=== PATIENT | male | born 1965 | race Caucasian/White ===

== ENCOUNTER 2018-04-11 11:48 | Outpatient (REF) | payer MEDICARE, MEDICAID, SELFPAY ==
[2018-04-11 12:09] LABS: Bilirubin Negative (Negative); Blood Trace-intact (Negative); Clarity Sl Cloudy; Glucose Negative (Negative); Ketones Negative (Negative); Leukocyte Esterase Small (Negative); Nitrite Positive (Negative); Urobilinogen 0.2 EU/dL (Up TO 0.2)
[2018-04-11 12:20] LABS: Bacteria Many HPF (Negative); C & S Indicated? Yes; WBC >50 HPF (0-5)
== END 2018-04-11 12:08 ==
LOC: NCHCN 11:48
PROVIDERS: PCP Internal Medicine; Visit Provider Internal Medicine
DX: N39.0 Urinary tract infection, site not specified (principal); R32 Unspecified urinary incontinence
CPT/HCPCS: 87077; 81003; 81015; 87086; 87186

== ENCOUNTER 2018-04-25 08:03 | Outpatient (REF) | payer MEDICARE, MEDICAID, SELFPAY ==
[2018-04-25 08:20] LABS: Bilirubin Negative (Negative); Blood Moderate (Negative); Clarity Cloudy; Glucose Negative (Negative); Ketones Negative (Negative); Leukocyte Esterase Small (Negative); Nitrite Positive (Negative); Urobilinogen 0.2 EU/dL (Up TO 0.2)
[2018-04-25 08:29] LABS: Bacteria Packed HPF (Negative); WBC >50 HPF (0-5)
[2018-04-25 08:30] LABS: C & S Indicated? Yes
== END 2018-04-25 08:23 ==
LOC: NCHCN 08:03
PROVIDERS: PCP Internal Medicine; Visit Provider Internal Medicine
DX: N39.0 Urinary tract infection, site not specified (principal); R32 Unspecified urinary incontinence
CPT/HCPCS: 87077; 81003; 81015; 87086; 87186

== ENCOUNTER 2018-05-29 13:08 | Outpatient (REF) | payer MEDICARE, MEDICAID, SELFPAY ==
[2018-05-29 14:09] LABS: Bilirubin Negative (Negative); Blood Large (Negative); Clarity Cloudy; Glucose Negative (Negative); Ketones Trace mg/dL (Negative); Leukocyte Esterase Moderate (Negative); Nitrite Positive (Negative); Specific Gravity 1.025 (1.005-1.025); Urobilinogen 0.2 EU/dL (Up TO 0.2); pH 5.5 (5-8)
[2018-05-29 14:39] LABS: C & S Indicated? Yes
== END 2018-05-29 13:28 ==
LOC: NCHCN 13:08
PROVIDERS: PCP Internal Medicine; Visit Provider Internal Medicine
DX: N39.0 Urinary tract infection, site not specified (principal); R32 Unspecified urinary incontinence
CPT/HCPCS: 87077; 81003; 81015; 87086; 87186

== ENCOUNTER 2018-06-19 15:16 | Outpatient (REF) | payer MEDICARE, MEDICAID, SELFPAY ==
[2018-06-20 18:02] LABS: Clarity Cloudy; Glucose Negative (Negative); Ketones Negative (Negative); Leukocyte Esterase Moderate (Negative); Nitrite Negative (Negative); Urobilinogen 0.2 EU/dL (Up TO 0.2); pH 6.5 (5-8)
[2018-06-20 18:03] LABS: Bilirubin Negative (Negative); Blood Small (Negative); Epithelial Cells Few HPF (Negative); Other Cells Negative (Negative); WBC >50 HPF (0-5)
[2018-06-20 18:04] LABS: Bacteria Many HPF (Negative); C & S Indicated? Yes; Casts Negative LPF (Negative); Crystals Negative HPF (Negative); Mucus Negative (Negative)
== END 2018-06-19 15:36 ==
LOC: NCHCN 15:16
PROVIDERS: PCP Internal Medicine; Visit Provider Internal Medicine
DX: N39.0 Urinary tract infection, site not specified (principal); R32 Unspecified urinary incontinence
CPT/HCPCS: 87077; 81003; 81015; 87086; 87186

== ENCOUNTER 2018-07-08 10:27 | Outpatient (REF) | payer MEDICARE, MEDICAID, SELFPAY ==
[2018-07-08 14:49] LABS: Bilirubin Negative (Negative); Blood Trace-intact (Negative); Clarity Sl Cloudy; Glucose Negative (Negative); Ketones Negative (Negative); Leukocyte Esterase Small (Negative); Nitrite Positive (Negative); Urobilinogen 0.2 EU/dL (Up TO 0.2); pH 6.5 (5-8)
[2018-07-08 15:00] LABS: C & S Indicated? Yes; WBC >50 HPF (0-5)
== END 2018-07-08 10:47 ==
LOC: NCHCN 10:27
PROVIDERS: PCP Internal Medicine; Visit Provider Internal Medicine
DX: N39.0 Urinary tract infection, site not specified (principal); R32 Unspecified urinary incontinence
CPT/HCPCS: 87077; 81003; 81015; 87086; 87186

== ENCOUNTER 2018-07-21 16:06 | Outpatient (REF) | payer MEDICARE, MEDICAID, SELFPAY ==
[2018-07-21 17:10] LABS: Bilirubin Negative (Negative); Blood Moderate (Negative); Clarity Turbid; Glucose Negative (Negative); Ketones Negative (Negative); Leukocyte Esterase Moderate (Negative); Nitrite Positive (Negative); Specific Gravity 1.025 (1.005-1.025); Urobilinogen 0.2 EU/dL (Up TO 0.2); pH 6.5 (5-8)
[2018-07-21 17:51] LABS: C & S Indicated? Yes; WBC >50 HPF (0-5)
[2018-07-21 17:52] LABS: Bacteria Packed HPF (Negative)
== END 2018-07-21 16:26 ==
LOC: NCHCN 16:06
PROVIDERS: PCP Internal Medicine; Visit Provider Internal Medicine
DX: N39.0 Urinary tract infection, site not specified (principal); R32 Unspecified urinary incontinence
CPT/HCPCS: 87077; 81003; 81015; 87086; 87186

== ENCOUNTER 2018-09-14 08:22 | Outpatient (REF) | payer MEDICARE, MEDICAID, SELFPAY ==
[2018-09-14 12:26] LABS: Bilirubin Negative (Negative); Blood Negative (Negative); Clarity Sl Cloudy; Glucose Negative (Negative); Ketones Negative (Negative); Leukocyte Esterase Small (Negative); Nitrite Positive (Negative); Urobilinogen 0.2 EU/dL (Up TO 0.2); pH 5.5 (5-8)
[2018-09-14 12:43] LABS: Epithelial Cells Negative HPF (Negative); RBC Negative (0-2); WBC >50 HPF (0-5)
[2018-09-14 12:44] LABS: Bacteria Moderate HPF (Negative); C & S Indicated? Yes; Casts Negative LPF (Negative); Crystals Negative HPF (Negative); Mucus Negative (Negative)
== END 2018-09-14 08:42 ==
LOC: LBN 08:22
PROVIDERS: PCP Internal Medicine; Visit Provider Internal Medicine
DX: N39.0 Urinary tract infection, site not specified (principal); R32 Unspecified urinary incontinence
CPT/HCPCS: 87077; 81003; 81015; 87086; 87186

== ENCOUNTER 2018-10-16 14:54 | Outpatient (REF) | payer MEDICARE, MEDICAID, SELFPAY ==
[2018-10-16 15:26] LABS: Bilirubin Negative (Negative); Blood Moderate (Negative); Clarity Cloudy; Glucose Negative (Negative); Ketones 15 mg/dL (Negative); Leukocyte Esterase Small (Negative); Nitrite Negative (Negative); Specific Gravity >= 1.030 (1.005-1.025); Urobilinogen 0.2 EU/dL (Up TO 0.2)
[2018-10-16 21:29] LABS: Bacteria Many HPF (Negative); C & S Indicated? Yes; Casts Negative LPF (Negative); Crystals Negative HPF (Negative); Epithelial Cells Negative HPF (Negative); Mucus Negative (Negative); Other Cells Negative (Negative); RBC >50 (0-2); WBC >50 HPF (0-5)
== END 2018-10-16 15:14 ==
LOC: NCHCN 14:54
PROVIDERS: PCP Internal Medicine; Visit Provider Internal Medicine
DX: N39.0 Urinary tract infection, site not specified (principal); R32 Unspecified urinary incontinence
CPT/HCPCS: 87077; 81003; 81015; 87086; 87186

== ENCOUNTER 2018-10-29 15:50 | Outpatient (REF) | payer MEDICARE, MEDICAID, SELFPAY ==
[2018-10-29 16:07] LABS: Bilirubin Negative (Negative); Blood Negative (Negative); Clarity Cloudy; Glucose Negative (Negative); Ketones Negative (Negative); Leukocyte Esterase Negative (Negative); Nitrite Negative (Negative); Specific Gravity 1.015 (1.005-1.025); Urobilinogen 0.2 EU/dL (Up TO 0.2); pH 8.5 (5-8)
== END 2018-10-29 16:10 ==
LOC: LBN 15:50
PROVIDERS: PCP Internal Medicine; Visit Provider Internal Medicine
DX: N39.0 Urinary tract infection, site not specified (principal); R32 Unspecified urinary incontinence
CPT/HCPCS: 81003

== ENCOUNTER 2018-11-15 09:01 | Outpatient (REF) | payer MEDICARE, MEDICAID, SELFPAY ==
[2018-11-15 10:20] LABS: Bilirubin Negative (Negative); Blood Moderate (Negative); Clarity Cloudy; Glucose Negative (Negative); Ketones Negative (Negative); Leukocyte Esterase Moderate (Negative); Nitrite Negative (Negative); Specific Gravity 1.025 (1.005-1.025); Urobilinogen 0.2 EU/dL (Up TO 0.2); pH 7.5 (5-8)
[2018-11-15 10:37] LABS: C & S Indicated? Yes; WBC >50 HPF (0-5)
== END 2018-11-15 09:21 ==
LOC: NCHCN 09:01
PROVIDERS: PCP Internal Medicine; Visit Provider Internal Medicine
DX: N39.0 Urinary tract infection, site not specified (principal); R32 Unspecified urinary incontinence
CPT/HCPCS: 87077; 81003; 81015; 87086; 87186

== ENCOUNTER 2018-12-12 00:58 | Outpatient (CLI) | payer MEDICARE, MEDICAID, SELFPAY ==
--- NOTE | 2018-12-12 10:57 | DI.US_ITS ---
SYMPTOMS/DIAGNOSIS: RECURRENT URINARY TRACT INFECTION, N39.0, H/O NEUROGENIC BLADDER WITH STRAIGHT CATHETERIZATION BY FAMILY MEMBERS RENAL ULTRASOUND: Routine examination was performed. The right kidney measures 9 cm in length. There does appear to be mild renal cortical atrophy. No solid renal mass is present. There is mild dilatation of the right renal collecting system; this resolves following catheterization. The left kidney measures 10.6 cm long. There does appear to be mild renal cortical atrophy. There is moderate dilatation of the collecting system, which persists following catheterization. The precatheterization bladder volume is 573 cc. Both ureteral jets were visualized. There is debris seen within the urinary bladder. Following catheterization, bladder volume is 6 cc. IMPRESSION: 1. Persistent dilatation of the left renal collecting system following catheterization. This may represent mild hydro versus an extrarenal pelvis. 2. Moderate amount of debris seen within the urinary bladder. Infection cannot be excluded.
== END 2018-12-12 01:18 ==
PROVIDERS: PCP Internal Medicine; Visit Provider Internal Medicine
DX: N39.0 Urinary tract infection, site not specified (principal); N28.89 Other specified disorders of kidney and ureter; N31.9 Neuromuscular dysfunction of bladder, unspecified
CPT/HCPCS: 76770

== ENCOUNTER 2018-12-13 10:35 | Outpatient (REF) | payer MEDICARE, MEDICAID, SELFPAY ==
[2018-12-13 10:44] LABS: Bilirubin Negative (Negative); Blood Negative (Negative); Clarity Sl Cloudy; Glucose Negative (Negative); Ketones Negative (Negative); Leukocyte Esterase Trace (Negative); Nitrite Negative (Negative); Urobilinogen 0.2 EU/dL (Up TO 0.2); pH 5.5 (5-8)
[2018-12-13 11:00] LABS: Bacteria Rare HPF (Negative); C & S Indicated? Yes; Casts Negative LPF (Negative); Crystals Negative HPF (Negative); Epithelial Cells Negative HPF (Negative); Mucus Negative (Negative); RBC Negative (0-2); WBC >50 HPF (0-5)
== END 2018-12-13 10:55 ==
LOC: NCHCN 10:35
PROVIDERS: PCP Internal Medicine; Visit Provider Internal Medicine
DX: N39.0 Urinary tract infection, site not specified (principal); R32 Unspecified urinary incontinence
CPT/HCPCS: 81003; 81015; 87086

== ENCOUNTER 2018-12-31 10:22 | Outpatient (REF) | payer MEDICARE, MEDICAID, SELFPAY ==
[2018-12-31 14:02] LABS: Bilirubin Negative (Negative); Blood Trace-intact (Negative); Clarity Clear; Glucose Negative (Negative); Ketones Negative (Negative); Leukocyte Esterase Large (Negative); Nitrite Negative (Negative); Specific Gravity 1.025 (1.005-1.025); Urobilinogen 0.2 EU/dL (Up TO 0.2)
[2018-12-31 14:19] LABS: C & S Indicated? Yes; WBC >50 HPF (0-5)
== END 2018-12-31 10:42 ==
LOC: NCHCN 10:22
PROVIDERS: PCP Internal Medicine; Visit Provider Internal Medicine
DX: N39.0 Urinary tract infection, site not specified (principal); R32 Unspecified urinary incontinence
CPT/HCPCS: 87077; 81003; 81015; 87086; 87186

== ENCOUNTER 2019-03-16 12:50 | Outpatient (REF) | payer MEDICARE, MEDICAID, SELFPAY ==
[2019-03-16 14:34] LABS: Bilirubin Negative (Negative); Blood Negative (Negative); Clarity Sl Cloudy (Clear); Glucose Negative (Negative); Ketones Negative (Negative); Leukocyte Esterase Small (Negative); Nitrite Negative (Negative); Specific Gravity 1.015 (1.005-1.025); Urobilinogen 0.2 EU/dL (Up TO 0.2)
[2019-03-16 15:02] LABS: C & S Indicated? Yes; WBC >50 HPF (0-5)
== END 2019-03-16 13:10 ==
LOC: NCHCN 12:50
PROVIDERS: PCP Internal Medicine; Visit Provider Internal Medicine
DX: N39.0 Urinary tract infection, site not specified (principal); R32 Unspecified urinary incontinence
CPT/HCPCS: 87077; 81003; 81015; 87086; 87186

== ENCOUNTER 2019-04-03 09:28 | Outpatient (REF) | payer MEDICARE, MEDICAID, SELFPAY ==
[2019-04-03 09:47] LABS: Bilirubin Negative (Negative); Blood Moderate (Negative); Clarity Cloudy (Clear); Glucose Negative (Negative); Ketones Negative (Negative); Leukocyte Esterase Large (Negative); Nitrite Positive (Negative); Urobilinogen 0.2 EU/dL (Up TO 0.2); pH 5.5 (5-8)
[2019-04-03 09:56] LABS: WBC >50 HPF (0-5)
[2019-04-03 09:57] LABS: C & S Indicated? Yes
== END 2019-04-03 09:48 ==
LOC: NCHCN 09:28
PROVIDERS: PCP Internal Medicine; Visit Provider Internal Medicine
DX: N39.0 Urinary tract infection, site not specified (principal); R32 Unspecified urinary incontinence
CPT/HCPCS: 87077; 81003; 81015; 87086; 87186

== ENCOUNTER 2019-04-23 18:19 | Outpatient (REF) | payer MEDICARE, MEDICAID, SELFPAY ==
[2019-04-23 18:56] LABS: Bilirubin Negative (Negative); Blood Negative (Negative); Clarity Sl Cloudy (Clear); Glucose Negative (Negative); Ketones Negative (Negative); Leukocyte Esterase Trace (Negative); Nitrite Negative (Negative); Urobilinogen 0.2 EU/dL (Up TO 0.2)
[2019-04-23 19:11] LABS: Bacteria Many HPF (Negative); Crystals Negative HPF (Negative); Epithelial Cells Negative HPF (Negative); Mucus Negative (Negative); RBC Negative (0-2); WBC >50 HPF (0-5)
[2019-04-23 19:12] LABS: C & S Indicated? Yes; Casts Negative LPF (Negative)
== END 2019-04-23 18:39 ==
LOC: NCHCN 18:19
PROVIDERS: PCP Internal Medicine; Visit Provider Internal Medicine
DX: N39.0 Urinary tract infection, site not specified (principal); R32 Unspecified urinary incontinence
CPT/HCPCS: 87077; 81003; 81015; 87086; 87186

== ENCOUNTER 2019-04-25 23:54 | Inpatient (IN) | payer MEDICARE, MEDICAID, SELFPAY ==
[2019-04-25 23:48] VITALS: O2SAT 91
[2019-04-25 23:49] VITALS: BP 111/68; PULSE 102; O2SAT 91
[2019-04-25 23:50] VITALS: O2SAT 92
[2019-04-25 23:54] VITALS: BP 111/68; PULSE 111; RESP 18; TEMP 36.5; O2SAT 91
[2019-04-26] VITALS (18 sets, daily range): BP systolic 101–126; BP diastolic 66–77; PULSE 70–109; RESP 13–23; TEMP 36.5–38.6; O2SAT 97–99
--- NOTE | 2019-04-26 00:09 | ED.GENADUL_ITS ---
Discharge Plan Disposition Patient Disposition: [facility] INPATIENT Condition: Poor Discharge Details Chief Complaint: Urinary Clinical Impression: Acute UTI, Sepsis Primary Care Provider: Dimas Lau ED Provider: Rupesh Oviedo Home Meds and New Rx's Prescriptions: No Action polyethylene glycol 3350 [GlycoLax] 527 GM powder 17 g PO DAILY RF: 0 ciprofloxacin HCl 250 mg Tablet 250 mg PO BID RF: 0 bisacodyl [Dulcolax (bisacodyl)] 10 mg Suppository 10 mg MO DAILY RF: 0 lorazepam 1 mg Tablet 1 mg PO TID PRNRF: 0 cholecalciferol (vitamin D3) [Vitamin D3] 1,000 unit Capsule 1 unit PO DAILY RF: 0 Medical Decision Making I reviewed the patient's culture report. He is growing Serratia which is sensitive to Cipro. It was resistant to cephalexin. He is not febrile here but had rigors at home and is tachycardic. Mother reports decreased fluid intake. She did straight cath him prior to coming in. He only had [address] IV and start fluids. Laboratory studies sent. Will obtain chest x-ray because of the low O2 sats but his lungs sound clear and he does not appear to be in any distress currently. Suspect UTI with sepsis. Once we obtain blood cultures I will also dose him with ceftriaxone. Patient's laboratory studies significant for lactic acid 2.5, white count of 12.1, magnesium low at 1.5. Troponin is negative. Kidney function normal. Did not repeat urine as his culture from 2 days ago is growing Serratia. Will try to get blood cultures. Chest x-ray being read by radiology as possible left lower lobe infiltrate. Given the initial low saturations probably reasonable to cover for pneumonia. I think given the sensitivities of the Serratia using ceftriaxone and Levaquin for now would be appropriate. We will continue fluids. I think he is good for the floor as his heart rate is come down below 100 with a liter of LR. Blood pressure has been stable here. Will discuss with hospitalist. Spoke with Dr. Ceron. He agrees with plan. Would like a second liter of LR given prior to admission upstairs. We will also at least get the ceftriaxone on board once blood cultures are obtained prior to going upstairs. Medical Records Medical records reviewed: Yes I reviewed the patient's medical records. Medical records narrative: Obtained med list and problem list from PCP. Lab Data Lab results reviewed: Yes I reviewed the patient's lab results. ECG Data Attestation: I personally reviewed and interpreted this ECG (s) as follows: Prior ECG tracings: not available for review Interpretation: Sinus tachycardia at 101. Normal axis. Normal intervals. Normal ST segments. HPI General Mode of arrival: EMS . Date/Time Provider Initiated Documentation: 04/26/19 00:00 . Limitations to Documentation: other (non verbal) . Information obtained by: family . HPI Narrative: Patient presents to ED by ambulance with high fever, chills, shortness of breath. Patient is nonverbal and unable to provide history. Mother is his primary motor vehicle lecturer. She reports that he gets frequent UTIs. He began running a fever 2 days ago. Urine sample was brought in to primary care. Patient was started on cephalexin. He has continued to have low-grade fevers since. Cultures apparently came back and he was switched to Cipro of which he took his first dose tonight. He developed high fever with shaking chills and shortness of breath later this evening. EMS was called and patient was transported here for evaluation. They were unable to obtain IV access. He arrives here awake and alert and cooperative. Related Data Home Medications Medication Instructions Recorded Confirmed polyethylene glycol 3350 [Glycolax] 17 g PO DAILY 08/25/15 04/26/19 bisacodyl [Dulcolax (bisacodyl)] 10 mg MO DAILY 04/26/19 04/26/19 cholecalciferol (vitamin D3) 1 unit PO DAILY 04/26/19 04/26/19 [Vitamin D3] ciprofloxacin HCl 250 mg PO BID 04/26/19 04/26/19 lorazepam 1 mg PO TID PRN 04/26/19 04/26/19 Allergies Allergy/AdvReac Type Severity Reaction Status Date / Time carbamazepine [From Tegretol] Allergy Unknown Unverified 04/26/19 00:01 gabapentin [From Neurontin] Allergy Unknown Unverified 04/26/19 00:01 risperidone [From Risperdal] Allergy Unknown Unverified 04/26/19 00:01 Sulfa (Sulfonamide Allergy Unknown Unverified 04/26/19 00:01 Antibiotics) General Stated Complaint: Urinary SCHUYLER: 3 Review of Systems Review of Systems ROS Unobtainable: Unobtainable due to (unable to obtain - patient non verbal) [facility] Medical History Meningioma (Acute) Neurofibromatosis 2 (Acute) Urinary retention (Acute) Surgical History S/P craniotomy (Acute) 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 Tachycardic but normotensive. Saturations in the mid to high 90s on 2 L nasal cannula. Const: WDWN male in NAD. HEENT: NC/AT. Eyes: Normal conjunctiva and sclera. Neck: Supple. Trachea midline. Lungs: Normal respiratory effort. Lungs are clear anteriorly and laterally. Cor: RRR tachy without murmur/gallop. Good radial pulses. GI: Soft. NT/ND. No guarding or rebound. Neuro: Awake and alert and baseline per mother. Ext: No C/C/E. Atrophy present. Skin: Warm and dry without rash. Course Vital Signs Vital signs: Vital Signs Temperature 97.7 F 04/25/19 23:54 Pulse 111 H 04/25/19 23:54 Respiratory Rate 18 04/25/19 23:54 Blood Pressure 111/68 04/25/19 23:54 Pulse Oximetry 91 L 04/25/19 23:54 Temperature 97.7 F 04/25/19 23:54 Temperature Source Skin 04/25/19 23:54 Pulse 111 H 04/25/19 23:54 Respiratory Rate 18 04/25/19 23:54 Respiratory Effort 04/26/19 00:02 Blood Pressure 111/68 04/25/19 23:54 Blood Pressure Position Sitting 04/25/19 23:54 Pulse Oximetry 91 L 04/25/19 23:54 Oxygen Delivery Method Room Air 04/25/19 23:54 Oxygen Flow Rate 0 04/25/19 23:54 Lab/Test Results Lab/Test Results: 04/26/19 00:04 Blood Blood Culture - Pending 04/26/19 00:04 Blood Blood Culture - Pending Procedures EJ/Peripheral Line Arm R: Skin Cleansed in Sterile Fashion: Yes Size (gauge): 18 IV Secured and Dressing Applied: Yes Patient Tolerated Procedure: well Additional Comments: EMT and nursing unable to obtain access. 18-gauge IV catheter placed by me under ultrasound guidance in the right forearm.
[2019-04-26 00:51] LABS: Abs Immature Grans 0.04 k/cumm (0.0-0.09); Absolute Basophil Count 0.02 k/cumm (0.0-0.2); Absolute Eosinophil Count 0.02 k/cumm (0.0-0.7); Absolute Lymphocyte Count 0.16 k/cumm (1.2-3.4); Absolute Monocyte Count 0.25 k/cumm (0.11-0.7); Absolute Neutrophil Count 11.61 k/cumm (1.2-6.7); Basophils % 0.2; Eosinophils % 0.2; HCT 45.9 % (40.0-50.0); HGB 14.7 g/dL (13.5-17.5); Immature Grans % 0.3; Lactate 2.5 mmol/L (0.6-1.4); Lymphocytes % 1.3; Mean Corpuscular Hemoglobin 28.1 pg (27.0-33.0); Mean Corpuscular Volume 87.6 fL (80-95); Monocytes % 2.1; Neutrophils % 95.9; Platelet Count 123 x1000/uL (130-400); RBC 5.24 m/cumm (4.50-6.00); RBC Distribution Width 14.3 % (11.8-14.1); White Blood Cell Count 12.11 k/cumm (4.4-10.8)
[2019-04-26] MEDS: Lactated Ringers 1,000 ML 1000 ML IV ×2 (00:54→02:06)
--- NOTE | 2019-04-26 01:03 | DI.RAD_ITS ---
EXAM: XR PORTABLE CHEST AP INDICATION: fever, SOB. COMPARISON: No exams were available for comparison TECHNIQUE: 2D digital imaging was performed. FINDINGS: Suboptimal inflation of the lungs is noted. There is an apparent small region of infiltration involv ing the left lower lobe. There is no evidence of a pneumothorax. The heart is within normal limits i n size. IMPRESSION: Small small area of infiltration involving the left lower lobe.
[2019-04-26 01:08] LABS: ALT 27 U/L (16-63); AST 15 U/L (15-37); Albumin 2.5 g/dL (3.4-5.0); Alkaline Phosphatase 180 U/L (46-116); Anion Gap 11.3 mmol/L (3-11); BUN 15 mg/dL (7-18); Bilirubin, Total 0.8 mg/dL (0.2-1.0); CO2 26.7 mmol/L (21.0-32.0); CREATININE 1.26 mg/dL (0.70-1.30); Calcium 8.3 mg/dL (8.5-10.1); Chloride 105 mmol/L (98-107); Estimated GFR 59.64 (mL/min/1.73m2); Glucose 120 mg/dL (70-100); Magnesium 1.5 mg/dL (1.8-2.4); Potassium 3.6 mmol/L (3.5-5.1); Sodium 143 mmol/L (136-145); Total Protein 6.7 g/dL (6.4-8.2)
[2019-04-26 01:09] LABS: Troponin I < 0.05 ng/mL (0.00-0.06)
--- NOTE | 2019-04-26 01:15 | DI.VRAD_ITS ---
PROCEDURE INFORMATION: Exam: XR Chest, 1 View Exam date and time: 04/26/2019 12:08 AM Clinical history: 53 years old, male; Fever and shortness of breath TECHNIQUE: Imaging protocol: XR of the chest Views: 1 view. COMPARISON: No relevant prior studies available. FINDINGS: Lungs: Lung volumes are low. Small amount of airspace disease in the left base. Pleural space: Unremarkable. No evidence of pneumothorax. Heart/Mediastinum: Unremarkable. Heart size within normal limits for technique. Bones/joints: Unremarkable. IMPRESSION: Small left base infiltrate. Dictated and Authenticated by: Dimas Landry MD. Ordering:JOSE GUADALUPE Goddard MD
[2019-04-26] MEDS: levoFLOXacin 750 MG/150 ML BAG 100 MG IVPB (03:13)
[2019-04-26] MEDS: cefTRIAXone 2 GM/50 ML BAG IVPB (04:39)
[2019-04-26] MEDS: Normal Saline Flush 10 ML SYR IVP ×3 (04:39→12:16)
[2019-04-26] MEDS: MAGNESIUM SULFATE 2 GM/50 ML BAG IVPB (05:40)
[2019-04-26 06:08] LABS: Lactate 1.8 mmol/L (0.6-1.4)
--- NOTE | 2019-04-26 06:16 | HPE_ITS ---
Date of service: 04/26/19 Time of Service: 06:16 Assessment and Plan Assessment and plan (1) Sepsis: Status: Acute Assessment and plan: probably d/t Serratia urosepsis. Continue Levaquin and Rocephin for dual coverage of UTI and pneumonia. continue iv fluid support until taking po well again. Qualifiers: Sepsis acute organ dysfunction status: without acute organ dysfunction Sepsis type: sepsis due to unspecified organism Qualified Code(s): A41.9 - Sepsis, unspecified organism (2) Complicated UTI (urinary tract infection): Status: Acute Assessment and plan: antibiotics as above. Will also get renal/bladder US to rule out obstruction and pyelonephritis. (3) Community acquired pneumonia: Status: Acute Assessment and plan: antibiotics as above along w/ prn aerosolized bronchodilators and supplemental oxygen. will check repeat lactate levels until they come down and check procalcitonin to assess responsiveness to above antibiotics. Qualifiers: Laterality: left Lung location: lower lobe of lung Qualified Code(s): J18.1 - Lobar pneumonia, unspecified organism History of Present Illness History of Present Illness Chief Complaint: fever, rigors Narrative: 53 yr old male w/ PMH of neurofibromatosis, meningiomas and urinary retention who presented to the ER with high fever, chills (rigors), and shortness of breath and low urinary output. Fevers began 4 days ago (on Tuesday) and he has hx of frequent UTI's. His mother called the ornamental iron worker provider and took in a urine s ample and he was started on Keflex. He continued to run fevers and yesterday his urine culture came back positive for Serratia but was resistant to cephalexin. He was switched to Cipro but only had one dose when he was brought to the ER via EMS w/ above symptoms. His mother catheterizes him 4 x per day d/t chronic urinary retention and has noted decreased urine production but also notes that he has not been eating or drinking well over past 4 days. Urine has been dark and concentrated looking. Upon arrival to the ER he was tachycardic (108), tachypneic (18), and mildly hypoxemic (SPO2 91%) but wiht stable blood pressure (111/68). Workup included labs including CBC, CMP, magnesium, lactate, blood cultures, and CXR. His CBC demonstrated leukocytosis of 12,000, but no anemia. CMP demonstrated normal BUN 15, creatinine of 1.26 with elevated glucose 120, chronically elevated alkaline phosphatase 180 but otherwise normal LFT and low magenesium of 1.5 and high lactate of 2.5. CXR was read as showing small left basilar infiltrate. Patient was given 2 liters of LR which resolved his tachycardia and he was started on Levquin 750 mg and Ceftriaxone 2 gm. Patient was placed on supplemental oxygen at 2 LPM which corrected his hypoxemia to 98%. He is now admitted for treatment of sepsis from UTI and concommittant pneumonia. Review of Systems Constitutional Constitutional: Reports fatigue, Reports fever(s), Denies headache(s), Reports poor appetite and Reports weakness ENT Ears, Nose, Mouth, and Throat: Denies headache(s) Cardiovascular Cardiovascular: Reports dyspnea Respiratory Respiratory: Denies chest congestion, Denies cough and Reports dyspnea Gastrointestinal Gastrointestinal: Reports loose stools, Reports nausea, Denies vomiting and Reports other (dry heaves) Genitourinary Genitourinary: Reports oliguria and Reports difficulty urinating Musculoskeletal Musculoskeletal: Reports system reviewed and no additional complaints, except as docu Integumentary/Breasts Skin/Breast: Reports system reviewed and no additional complaints, except as docu Neurologic Neurologic: Denies headache(s) and Reports weakness Endocrine Endocrine: Reports fatigue Hematologic/Lymphatic Hematologic/Lymphatic: Reports system reviewed and no additional complaints, except as docu Allergic/Immunologic Allergic/Immunologic: Reports system reviewed and no additional complaints, except as docu [facility] Medical History Meningioma (Acute) Neurofibromatosis 2 (Acute) Urinary retention (Acute) Surgical History S/P craniotomy (Acute) 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 Meds Home Medications and Allergies Home Medications Medication Instructions Recorded Confirmed Type polyethylene glycol 3350 [Glycolax] 17 g PO DAILY 08/25/15 04/26/19 History bisacodyl [Dulcolax (bisacodyl)] 10 mg RI DAILY 04/26/19 04/26/19 History cholecalciferol (vitamin D3) 1 unit PO DAILY 04/26/19 04/26/19 History [Vitamin D3] ciprofloxacin HCl 250 mg PO BID 04/26/19 04/26/19 History lorazepam 1 mg PO TID PRN 04/26/19 04/26/19 History Allergies Allergy/AdvReac Type Severity Reaction Status Date / Time carbamazepine [From Tegretol] Allergy Unknown Unverified 04/26/19 00:01 gabapentin [From Neurontin] Allergy Unknown Unverified 04/26/19 00:01 risperidone [From Risperdal] Allergy Unknown Unverified 04/26/19 00:01 Sulfa (Sulfonamide Allergy Unknown Unverified 04/26/19 00:01 Antibiotics) Exam Const General: cooperative and no acute distress Nutritional Appearance: average body habitus Orientation: alert, awake and not oriented x3 Limitations: other limitations (cognitively impaired) [facility] Head: other (left posterior occipital scar from prior craniotomy) Ears: EAC abnormal excessive cerumen and hearing grossly impaired General nose exam: external nose normal, nares normal and nasal discharge Mouth: other (refused to open mouth for oral exam) Eyes General: appearance normal, both eyes and all related structures Alignment and Position: alignment normal Periorbital: periorbital findings normal Eyelids: eyelids normal Conjunctivae: conjunctivae normal Sclera: sclerae normal Cornea: corneas normal Pupils: PERRL Neck Neck: normal visual inspection, full ROM, no lymphadenopathy, no meningeal signs, trachea midline and no JVD Carotids: normal carotid upstroke Lymphatic: no lymphadenopathy noted Resp Effort & Inspection: normal respiratory effort Auscultation: diminished lung sounds bilaterally in the upper lung kaye (at both bases) Cardio Jugular venous pressure: no JVD Palpation: normal PMI Rate: regular rate Rhythm: regular rhythm Heart Sounds: S1 normal, S2 normal, normal, physiologic split S2, no gallops, no murmurs and no rubs Pulses: normal peripheral pulses GI Inspection: normal to inspection Palpation: soft and no hepatosplenomegaly Percussion: normal to percussion Auscultation: normal bowel sounds Skin General skin exam: no rashes or lesions noted, elasticity normal and turgor normal Neuro General: alert, awake, not oriented x3, moves all extremities and no focal motor deficits Cognition: abnormal cognition Speech: other (absent speech) Extrem General: normal capillary refill and no clubbing, cyanosis or edema Results Imaging Chest x-ray: image reviewed (FINDINGS: Lungs: Lung volumes are low. Small amount of airspace disease in the left base. Pleural space: Unremarkable. No evidence of pneumothorax. Heart/Mediastinum: Unremarkable. Heart size within normal limits for technique. Bones/joints: Unremarkable. IMPRESSION: Small left base infiltrate. Di) Labs Result diagrams: 04/26/19 00:45 04/26/19 00:45 Labs: Laboratory Results - last 24 hr 04/26/19 04/26/19 04/26/19 00:45 00:45 00:45 WBC 12.11 H RBC 5.24 Hgb 14.7 Hct 45.9 MCV 87.6 MCH 28.1 MCHC 32.0 RDW 14.3 H Plt Count 123 L MPV 11.0 Immature Gran % 0.3 Neutrophils % 95.9 Lymphocytes % 1.3 Monocytes % 2.1 Eosinophils % 0.2 Basophils % 0.2 Absolute Neutrophils 11.61 H Absolute Lymphocytes 0.16 L Absolute Monocytes 0.25 Absolute Eosinophils 0.02 Absolute Basophils 0.02 Sodium 143 Potassium 3.6 Chloride 105 Carbon Dioxide 26.7 Anion Gap 11.3 H BUN 15 Creatinine 1.26 Estimated GFR/1.73 m2 59.64 Glucose 120 H Lactate 2.5 H* Calcium 8.3 L Magnesium 1.5 L Total Bilirubin 0.8 AST 15 ALT 27 Alkaline Phosphatase 180 H Troponin I < 0.05 Total Protein 6.7 Albumin 2.5 L 04/26/19 06:00 WBC RBC Hgb Hct MCV MCH MCHC RDW Plt Count MPV Immature Gran % Neutrophils % Lymphocytes % Monocytes % Eosinophils % Basophils % Absolute Neutrophils Absolute Lymphocytes Absolute Monocytes Absolute Eosinophils Absolute Basophils Sodium Potassium Chloride Carbon Dioxide Anion Gap BUN Creatinine Estimated GFR/1.73 m2 Glucose Lactate 1.8 H Calcium Magnesium Total Bilirubin AST ALT Alkaline Phosphatase Troponin I Total Protein Albumin Last Vital Signs Temp 37.5 C 04/26/19 03:32 Pulse 97 H 04/26/19 03:32 Resp 18 04/26/19 03:32 BP 103/70 04/26/19 03:32 Pulse Ox 98 04/26/19 03:32
[2019-04-26 06:41] LABS: Procalcitonin 20.7 ng/mL
[2019-04-26] MEDS: Cholecalciferol (Vitamin D3) 1,000 UNIT TAB 1000 UNITS PO (08:20)
--- NOTE | 2019-04-26 09:27 | DI.US_ITS ---
EXAM: US RENAL CLINICAL HISTORY: urosepsis, r/o pyelonephritis. TECHNIQUE: Ultrasound performed using standard protocol. COMPARISON: US renal from 12/12/2018 FINDINGS: The left kidney measures 10.5 x 4 x 4.2 cm. The right kidney measures 9.4 x 3.8 x 4.7 cm. Multiple ec hogenic foci are identified in the right kidney, the largest measures 3 mm in diameter. The findings are consistent with nephrolithiasis. There is a question regarding mild dilatation of the collecting system in the left kidney and the possibility of mild hydronephrosis cannot be excluded. The prevoid bladder contains 30 cc. The patient was unable to void at the time of this examination. The right ureteral jet is visualized. The left ureteral jet is not seen. IMPRESSION: Findings consistent with right nephrolithiasis. Question mild left hydronephrosis.
[2019-04-26] MEDS: Polyethylene Glycol 3350 17 GM PACKET PO (09:33)
[2019-04-26] MEDS: Lactated Ringers 1,000 ML 150 ML IV (12:06)
--- NOTE | 2019-04-26 12:16 | INITIAL_ITS ---
- If Service Date Differs Date of service: 04/26/19 Time of Service: 12:17 Care Management Initial Assess REASON FOR HOSPITALIZATION:: Sepsis, complicated UTI,Community acquired pneumonia PAST MEDICAL HISTORY/PAST SURGICAL HISTORY:: Meningioma (Acute). Neur ofibromatosis 2 (Acute). Urinary retention (Acute). S/P craniotomy (Acute). 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 He is dependent on his parents and caregivers for all of his care. Per his Mom he uses a wheelchair and is able to ambulate with assistance. Kaitlin (Mom) states that he does better at home than in the hospital and tries not to bring him in unless needed. Hollis does have home providers daily through [facility] Intelectual developmental disability services. CURRENT FUNCTIONAL STATUS:: Hollis is lying in bed his Mom and other family is at the bedside. He appears comfortable and comforted by family. Mom reports that Hollis cannot verbilize his needs however they are able to understand him. The family plans to stay with him while he is in the hospital. Mom reports she does not like the cath that we use and she is going to bring hers in from home. She prefers to be the one that performs the straight cath throughout the day. Mom reports a good relationship with and feels that she is able to care for Hollis well at home. ADVANCE DIRECTIVES:: None on file - Hollis's guardian is his parents Bella Kaitlin and Cam Has patient been provided with information about the portal?: No Did the patient sign up for the portal?: No CODE STATUS:: Full Code INSURANCE COVERAGE / FINANCIAL ISSUES:: Medicaid and Medicare CURRENT HOME/COMMUNITY SERVICES/EQUIPMENT:: [facility], Caregivers for several hours of the day, [facility] [place] for cath supplies, and a wheelchair. PRIMARY CARE PHYSICIAN:: POTENTIAL DISCHARGE NEEDS:: Follow up appointment with provider PATIENT/FAMILY EDUCATION NEEDS:: Discharge education with family, including limitations and follow up plan of care ANTICIPATED BARRIERS TO DISCHARGE:: None TRANSPORTATION:: Via private car with Mom at time of discharge PLAN:: Hollis is receiving IV abx, and will be discharged when medically ready. No additional services at this time, will resume services through [facility], and DME agency at time of discharge.
--- NOTE | 2019-04-26 12:25 | PHARADMIT ---
Addendum entered by Willy Valero III 05/06/19 13:07: ERTEPENEM RE-TIMED TO 2PM, FOR CONVENIENCE WHEN PATIENT COMES TO INFUSION ROOOM, ONCE HE HAS MID-LINE PLACED TOMORROW. VS-OK K+5.0 SCr-1.10 other Labs-OK Wgt-69.[address] for discharge tomorrow after MidLine placed. Addendum entered by Willy Valero III 05/05/19 12:54: Pharmacy Note Subjective Patient to finish 10 full days of ABX therapy (on Day#4) Currently on Ertepenem 1gm IV q24hrs, Will need PICC or Midline to continue IV ABX as outpatient through infusion room. (??Tuesday?) The shunt was OK per the abdominal CT Objective VS-OK Labs-OK Assessment No changes Plan Plan is to place PICC or Midline next week, then discharge home with Infusion room orders Addendum entered by Willy Valero III 05/04/19 15:55: Pharmacy Note Subjective CT scan ordered to assess possible abscess of distal end of shunt. [facility] to be [facility] to [facility] where shunt [facility] placed. Objective VS-OK Lytes, H&H,Plts,WBC-OK SCr-1.08 Wgt-70 KG B- Yesterday Assessment Ertepenem recommended by [facility]-id. Meropenem dc'd. Initial BC showed Serratia Marcesens Current BC show no growth/48hrs Plan Patient to return home with rn coronary care unit mom when medically ready. Original Note: Admission Pharmacy Clinical Review UTI, SEPSIS Code Status Full Code Current Weight Wgt-70.4 kg Renally Cleared and Narrow Therapeutic Index Meds CrCl~ 62 mL/min Meds-OK QTc Value / Action Taken QTc-425 BP Control, Fever BP- 101/69 Tmax- 38.0C Electrolytes reviewed Na-143 K+3.6 Mag-1.5 DVT Prophylaxis Lovenox Opiate Usage / Scheduled Bowel Regimen Ordered No Yes Plt/SCr for Heparin / Enoxaparin Plts-225 SCr-1.26 INR for Warfarin na H/H stable, WBC/Bands H&H- 14.7/45.9 WBC- 12.11 Antibiotic appropriateness Rocephin, Levaquin Cultures and Sensitivities Blood-pending Surgical ABX d/c within 24 hr NA DM control / Insulin Dosing BG-120 Heart Failure (Check EF%) (LAWRENCE's, B-Block, Diuretics) none IV to PO Switch No Home Meds Reviewed Yes Home Meds Not Ordered Sinemet, Cipro, Lorazepam Comments
[2019-04-26 13:21] LABS: Lactate 2.3 mmol/L (0.6-1.4)
[2019-04-26 13:29] LABS: Anion Gap 7.5 mmol/L (3-11); BUN 15 mg/dL (7-18); CO2 28.5 mmol/L (21.0-32.0); CREATININE 1.34 mg/dL (0.70-1.30); Chloride 106 mmol/L (98-107); Estimated GFR 55.55 (mL/min/1.73m2); Glucose 170 mg/dL (70-100); Magnesium 2.3 mg/dL (1.8-2.4); Potassium 4.2 mmol/L (3.5-5.1); Sodium 142 mmol/L (136-145)
[2019-04-26 13:38] LABS: Abs Immature Grans 0.03 k/cumm (0.0-0.09); Absolute Basophil Count 0.01 k/cumm (0.0-0.2); Absolute Eosinophil Count 0.02 k/cumm (0.0-0.7); Absolute Lymphocyte Count 0.42 k/cumm (1.2-3.4); Absolute Monocyte Count 0.59 k/cumm (0.11-0.7); Absolute Neutrophil Count 8.44 k/cumm (1.2-6.7); Basophils % 0.1; Eosinophils % 0.2; HGB 12.8 g/dL (13.5-17.5); Immature Grans % 0.3; Lymphocytes % 4.4; Mean Corp. HGB Concentration 31.2 g/dL (32.0-36.0); Mean Corpuscular Hemoglobin 27.9 pg (27.0-33.0); Mean Corpuscular Volume 89.5 fL (80-95); Mean Platelet Volume 11.1 fL (8.0-11.0); Monocytes % 6.2; Neutrophils % 88.8; Platelet Count 107 x1000/uL (130-400); RBC 4.58 m/cumm (4.50-6.00); RBC Distribution Width 14.4 % (11.8-14.1); White Blood Cell Count 9.51 k/cumm (4.4-10.8)
--- NOTE | 2019-04-26 15:16 | CHAPLAIN ---
I introduced myself to Hollis and his mom, explained my role and offered support.
[2019-04-26] MEDS: Acetaminophen 325 MG TAB PO (17:33)
[2019-04-26 17:36] LABS: Lactate 2.3 mmol/L (0.6-1.4)
[2019-04-26] MEDS: PIPERACILLIN/TAZO 4.5 GM in Normal Saline 100 ML IVPB (18:04)
[2019-04-26] MEDS: VANCOMYCIN 1,500 MG in Normal Saline 250 ML 166.667 MG IV (20:59)
[2019-04-26] MEDS: Normal Saline 1,000 ML 150 ML IV (22:39)
[2019-04-27] VITALS (9 sets, daily range): BP systolic 116–126; BP diastolic 69–78; PULSE 79–92; RESP 18–24; TEMP 36.2–38.7; O2SAT 93–100
[2019-04-27] MEDS: PIPERACILLIN/TAZO 4.5 GM in Normal Saline 100 ML IVPB ×3 (02:02→18:51)
[2019-04-27] MEDS: Acetaminophen 325 MG TAB PO ×2 (03:23→13:42)
[2019-04-27] MEDS: Enoxaparin 40 MG/0.4 ML SYR SC (06:04)
[2019-04-27 06:33] LABS: Lactate 0.9 mmol/L (0.6-1.4)
[2019-04-27 06:40] LABS: Abs Immature Grans 0.02 k/cumm (0.0-0.09); Absolute Basophil Count 0.03 k/cumm (0.0-0.2); Absolute Eosinophil Count 0.08 k/cumm (0.0-0.7); Absolute Lymphocyte Count 0.67 k/cumm (1.2-3.4); Absolute Monocyte Count 0.76 k/cumm (0.11-0.7); Basophils % 0.5; Eosinophils % 1.2; HCT 39.5 % (40.0-50.0); HGB 12.6 g/dL (13.5-17.5); Immature Grans % 0.3; Lymphocytes % 10.2; Mean Corp. HGB Concentration 31.9 g/dL (32.0-36.0); Mean Corpuscular Hemoglobin 28.3 pg (27.0-33.0); Mean Corpuscular Volume 88.6 fL (80-95); Mean Platelet Volume 10.8 fL (8.0-11.0); Monocytes % 11.6; Neutrophils % 76.2; Platelet Count 115 x1000/uL (130-400); RBC 4.46 m/cumm (4.50-6.00); RBC Distribution Width 14.3 % (11.8-14.1); White Blood Cell Count 6.56 k/cumm (4.4-10.8)
[2019-04-27 06:47] LABS: Anion Gap 6.1 mmol/L (3-11); BUN 12 mg/dL (7-18); CO2 28.9 mmol/L (21.0-32.0); CREATININE 1.23 mg/dL (0.70-1.30); Calcium 7.7 mg/dL (8.5-10.1); Chloride 109 mmol/L (98-107); Glucose 121 mg/dL (70-100); Magnesium 1.7 mg/dL (1.8-2.4); Sodium 144 mmol/L (136-145)
[2019-04-27 08:10] LABS: Procalcitonin 16.6 ng/mL
[2019-04-27] MEDS: Cholecalciferol (Vitamin D3) 1,000 UNIT TAB 1000 UNITS PO (08:20)
[2019-04-27] MEDS: Polyethylene Glycol 3350 17 GM PACKET PO (08:20)
[2019-04-27] MEDS: Normal Saline 1,000 ML 75 ML IV (09:18)
[2019-04-27] MEDS: MAGNESIUM SULFATE 4 GM/100 ML BAG IVPB (09:36)
--- NOTE | 2019-04-27 11:05 | W.PM.PROGNOT ---
Date of Service Date of service: 04/27/19 Time of Service: 11:05 Assessment and Plan Assessment and plan (1) Sepsis: Start date: 04/27/19 Start time: 11:15 Status: Acute Assessment and plan: probably d/t Serratia urosepsis. Febrile despite being on levaquin and rocephin. Blood cultures grew gram negative rods. Swithed to Vanco and zosyn for broader coverage. Urine with Serratia. Continue to monitor fevers, and await sensitivities to blood cultures. Qualifiers: Sepsis type: sepsis due to unspecified organism Sepsis acute organ dysfunction status: without acute organ dysfunction Qualified Code(s): A41.9 - Sepsis, unspecified organism (2) Complicated UTI (urinary tract infection): Start date: 04/27/19 Start time: 11:15 Status: Acute Assessment and plan: antibiotics as above. Renal u/s with right 3 mm echogenic foci nephrolithasis. Question of mild left hydronephrosis. No obstruction or stricture. Straight caths QID, mother endorses greater output over night and today up to 600 ml. Continue to monitor urine output. (3) Community acquired pneumonia: Start date: 04/27/19 Start time: 11:19 Status: Acute Assessment and plan: antibiotics as above along w/ prn aerosolized bronchodilators and supplemental oxygen. repeat lactate levels 0.9 today. Procalcitonin initially 20.7 down to 16.6 today. Continue to monitor Qualifiers: Laterality: left Lung location: lower lobe of lung Qualified Code(s): J18.1 - Lobar pneumonia, unspecified organism (4) DVT prophylaxis: Start date: 04/27/19 Start time: 11:21 Status: Acute Assessment and plan: Enoxaparin (5) Urinary catheter insertion/adjustment/removal: Start date: 04/27/19 Start time: 11:22 Status: Acute Assessment and plan: Mother straight caths patient QID Above findings discussed with Dr. Busby who is in agreement. Subjective Subjective Interval history since last seen: Awake today. Per mother urine output has increased to 600 ml per straight cath and patient looks more perky today. Febrile at 3 am 38.1. Blood cultures growing gram negative rods only. Switched to Vanco and zosyn, awaiting sensitivities at this time. Urine with Serratia greater than 100,000 colonies. Exam Const General: cooperative and no acute distress Nutritional Appearance: average body habitus Orientation: alert, awake and not oriented x3 Limitations: other limitations (cognitively impaired) [facility] Head: other (left posterior occipital scar from prior craniotomy) Ears: EAC abnormal excessive cerumen and hearing grossly impaired General nose exam: external nose normal, nares normal and nasal discharge Mouth: other (refused to open mouth for oral exam) Eyes General: appearance normal, both eyes and all related structures Alignment and Position: alignment normal Periorbital: periorbital findings normal Eyelids: eyelids normal Conjunctivae: conjunctivae normal Sclera: sclerae normal Cornea: corneas normal Pupils: PERRL Neck Neck: normal visual inspection, full ROM, no lymphadenopathy, no meningeal signs, trachea midline and no JVD Carotids: normal carotid upstroke Lymphatic: no lymphadenopathy noted Resp Effort & Inspection: normal respiratory effort Auscultation: diminished lung sounds bilaterally in the upper lung kaye (at both bases) Cardio Jugular venous pressure: no JVD Palpation: normal PMI Rate: regular rate Rhythm: regular rhythm Heart Sounds: S1 normal, S2 normal, normal, physiologic split S2, no gallops, no murmurs and no rubs Pulses: normal peripheral pulses GI Inspection: normal to inspection Palpation: soft and no hepatosplenomegaly Percussion: normal to percussion Auscultation: normal bowel sounds Skin General skin exam: no rashes or lesions noted, elasticity normal and turgor normal Neuro General: alert, awake, not oriented x3, moves all extremities and no focal motor deficits Cognition: abnormal cognition Speech: other (absent speech) Extrem General: normal capillary refill and no clubbing, cyanosis or edema Objective Objective Clinical Data: Abnormal lab results 04/26/19 04/26/19 04/26/19 Range/Units 13:05 13:05 13:05 RBC (4.50-6.00) m/cumm Hgb 12.8 L (13.5-17.5) g/dL Hct (40.0-50.0) % MCHC 31.2 L (32.0-36.0) g/dL RDW 14.4 H (11.8-14.1) % Plt Count 107 L (130-400) x1000/uL MPV 11.1 H (8.0-11.0) fL Absolute Neutrophils 8.44 H (1.2-6.7) k/cumm Absolute Lymphocytes 0.42 L (1.2-3.4) k/cumm Absolute Monocytes (0.11-0.7) k/cumm Chloride (98-107) mmol/L Creatinine 1.34 H (0.70-1.30) mg/dL Glucose 170 H (70-100) mg/dL Lactate 2.3 H* (0.6-1.4) mmol/L Calcium 8.0 L (8.5-10.1) mg/dL Magnesium (1.8-2.4) mg/dL 04/26/19 04/27/19 04/27/19 Range/Units 17:10 06:24 06:24 RBC 4.46 L (4.50-6.00) m/cumm Hgb 12.6 L (13.5-17.5) g/dL Hct 39.5 L (40.0-50.0) % MCHC 31.9 L (32.0-36.0) g/dL RDW 14.3 H (11.8-14.1) % Plt Count 115 L (130-400) x1000/uL MPV (8.0-11.0) fL Absolute Neutrophils (1.2-6.7) k/cumm Absolute Lymphocytes 0.67 L (1.2-3.4) k/cumm Absolute Monocytes 0.76 H (0.11-0.7) k/cumm Chloride 109 H (98-107) mmol/L Creatinine (0.70-1.30) mg/dL Glucose 121 H (70-100) mg/dL Lactate 2.3 H* (0.6-1.4) mmol/L Calcium 7.7 L (8.5-10.1) mg/dL Magnesium 1.7 L (1.8-2.4) mg/dL Vital Signs Temperature 36.9 C 04/27/19 05:59 Temperature Source Temporal Artery Scan 04/27/19 05:59 Pulse 87 04/27/19 03:19 Pulse Rhythm Regular 04/27/19 03:28 Pulse 102 H 04/26/19 00:45 Respiratory Rate 18 04/27/19 03:19 Respiratory Effort Non-Labored 04/27/19 03:28 Respiratory Depth Normal 04/27/19 03:28 Respiratory Pattern Normal 04/27/19 03:28 Blood Pressure 125/76 04/27/19 03:19 Blood Pressure Mean 77 04/26/19 00:45 Blood Pressure Position Sitting 04/25/19 23:54 Pulse Oximetry 97 04/27/19 10:18 Oxygen Delivery Method Nasal Cannula 04/27/19 10:18 Oxygen Flow Rate 1 04/27/19 10:18 Pain Level 0 04/26/19 11:40 Intake & Output 04/26/19 04/26/19 04/27/19 11:59 23:59 11:59 Intake Total 2110 / 3452.5 1342.5 / 3452.5 1442.5 / 1442.5 Output Total 450 / 1375 925 / 1375 300 / 300 Balance 1660 / 2077.5 417.5 / 2077.5 1142.5 / 1142.5 Weight 70.4 kg 70.4 kg Intake: IV 2110 / 3212.5 1102.5 / 3212.5 862.5 / 862.5 Oral 240 / 240 580 / 580 Output: Urine 450 / 1375 925 / 1375 300 / 300 Other: Urine Color Dark Joseline Yellow Light Joseline Urine Appearance Clear Clear Cloudy Urine Odor Strong Normal Comment pts mother straight caths pt pT mother catheterized him. Voiding Methods Self-Catheterization Laboratory Results WBC 6.56 k/cumm (4.4-10.8) D 04/27/19 06:24 RBC 4.46 m/cumm (4.50-6.00) L 04/27/19 06:24 Hgb 12.6 g/dL (13.5-17.5) L 04/27/19 06:24 Hct 39.5 % (40.0-50.0) L 04/27/19 06:24 MCV 88.6 fL (80-95) 04/27/19 06:24 MCH 28.3 pg (27.0-33.0) 04/27/19 06:24 MCHC 31.9 g/dL (32.0-36.0) L 04/27/19 06:24 RDW 14.3 % (11.8-14.1) H 04/27/19 06:24 Plt Count 115 x1000/uL (130-400) L 04/27/19 06:24 MPV 10.8 fL (8.0-11.0) 04/27/19 06:24 Immature Gran % 0.3 04/27/19 06:24 Neutrophils % 76.2 04/27/19 06:24 Lymphocytes % 10.2 04/27/19 06:24 Monocytes % 11.6 04/27/19 06:24 Eosinophils % 1.2 04/27/19 06:24 Basophils % 0.5 04/27/19 06:24 Absolute Neutrophils 5.00 k/cumm (1.2-6.7) 04/27/19 06:24 Absolute Lymphocytes 0.67 k/cumm (1.2-3.4) L 04/27/19 06:24 Absolute Monocytes 0.76 k/cumm (0.11-0.7) H 04/27/19 06:24 Absolute Eosinophils 0.08 k/cumm (0.0-0.7) 04/27/19 06:24 Absolute Basophils 0.03 k/cumm (0.0-0.2) 04/27/19 06:24 Sodium 144 mmol/L (136-145) 04/27/19 06:24 Potassium 4.0 mmol/L (3.5-5.1) 04/27/19 06:24 Chloride 109 mmol/L (98-107) H 04/27/19 06:24 Carbon Dioxide 28.9 mmol/L (21.0-32.0) 04/27/19 06:24 Anion Gap 6.1 mmol/L (3-11) 04/27/19 06:24 BUN 12 mg/dL (7-18) 04/27/19 06:24 Creatinine 1.23 mg/dL (0.70-1.30) 04/27/19 06:24 Estimated GFR/1.73 m2 >= 60.00 (mL/min/1.73m2) 04/27/19 06:24 Glucose 121 mg/dL (70-100) H 04/27/19 06:24 Lactate 0.9 mmol/L (0.6-1.4) 04/27/19 06:24 Calcium 7.7 mg/dL (8.5-10.1) L 04/27/19 06:24 Magnesium 1.7 mg/dL (1.8-2.4) L 04/27/19 06:24 Total Bilirubin 0.8 mg/dL (0.2-1.0) 04/26/19 00:45 AST 15 U/L (15-37) 04/26/19 00:45 ALT 27 U/L (16-63) 04/26/19 00:45 Alkaline Phosphatase 180 U/L (46-116) H 04/26/19 00:45 Troponin I < 0.05 ng/mL (0.00-0.06) 04/26/19 00:45 Total Protein 6.7 g/dL (6.4-8.2) 04/26/19 00:45 Albumin 2.5 g/dL (3.4-5.0) L 04/26/19 00:45 Procalcitonin 16.6 ng/mL 04/27/19 06:24
--- NOTE | 2019-04-27 14:57 | CMPROGNOTE_ITS ---
- If Service Date Differs Date of service: 04/27/19 Time of Service: 14:57 Care Management Progress Note S/O: Hollis remains in patient at this time he is receiving IV abx, his blood cultures are positive. Family is present and supportive there are no changes in status today. A: Hollis is a 53 year old male admitted with UTI sepsis P:Hollis is receiving IV abx, for bacteremia and will be discharged when medically ready. No additional services at this time, will resume services through [facility], and DME agency at time of discharge. Family will provide transportation home when medically ready.
[2019-04-28] MEDS: PIPERACILLIN/TAZO 4.5 GM in Normal Saline 100 ML IVPB ×2 (02:28→09:41)
[2019-04-28 03:35] VITALS: BP 115/65; PULSE 81; RESP 19; TEMP 37.6; O2SAT 95
[2019-04-28 07:40] VITALS: BP 128/77; PULSE 82; RESP 19; TEMP 37.1; O2SAT 92
[2019-04-28 08:06] LABS: HCT 38.5 % (40.0-50.0); HGB 12.2 g/dL (13.5-17.5); Mean Corp. HGB Concentration 31.7 g/dL (32.0-36.0); Mean Corpuscular Volume 88.5 fL (80-95); Mean Platelet Volume 11.3 fL (8.0-11.0); RBC 4.35 m/cumm (4.50-6.00); RBC Distribution Width 14.1 % (11.8-14.1); White Blood Cell Count 7.74 k/cumm (4.4-10.8)
[2019-04-28 08:15] LABS: Anion Gap 7.2 mmol/L (3-11); BUN 11 mg/dL (7-18); CO2 27.8 mmol/L (21.0-32.0); CREATININE 1.27 mg/dL (0.70-1.30); Calcium 7.8 mg/dL (8.5-10.1); Chloride 110 mmol/L (98-107); Glucose 106 mg/dL (70-100); Sodium 145 mmol/L (136-145)
[2019-04-28 08:33] LABS: Absolute Eosinophil Count 0.23 k/cumm (0.0-0.7); Absolute Lymphocyte Count 0.77 k/cumm (1.2-3.4); Absolute Neutrophil Count 6.04 k/cumm (1.2-6.7); Atypical Lymphocytes % 3; Platelet Count 135 x1000/uL (130-400)
[2019-04-28 08:34] LABS: Diff Comment Manual Differential; RBC Morphology Normal
[2019-04-28] MEDS: Polyethylene Glycol 3350 17 GM PACKET PO (09:12)
[2019-04-28] MEDS: Cholecalciferol (Vitamin D3) 1,000 UNIT TAB 1000 UNITS PO (09:12)
[2019-04-28] MEDS: Bisacodyl 10 MG SUPP PR (09:12)
[2019-04-28] MEDS: Normal Saline 1,000 ML 75 ML IV (09:42)
--- NOTE | 2019-04-28 10:11 | CMPROGNOTE_ITS ---
- If Service Date Differs Date of service: 04/28/19 Time of Service: 10:11 Care Management Progress Note S/O: Hollis remains acute at this time. He is receiving IV antibiotics to treat a urinary tract infection and sepsis. His blood cultures are positive and are growing serratia marcescens. Family is present and supportive . They verbalized that they feel he has turned the corner and is beginning to get better. A: Hollis is a 53 year old male admitted with UTI sepsis P:Hollis is receiving IV antibiotics for bacteremia and will be discharged when medically ready. No additional services at this time, will resume services through [facility], and DME agency at time of discharge. Family will provide transportation home when medically ready.
[2019-04-28 11:19] LABS: C-Reactive Protein 13.37 mg/dL (0.0-0.3)
[2019-04-28 11:41] VITALS: BP 129/77; PULSE 87; RESP 20; TEMP 37.5; O2SAT 95
[2019-04-28] MEDS: cefTRIAXone 2 GM/50 ML BAG IVPB (12:14)
[2019-04-28] MEDS: levoFLOXacin 750 MG/150 ML BAG 100 MG IVPB (13:13)
--- NOTE | 2019-04-28 14:19 | PGE_ITS ---
Date of Service Date of service: 04/28/19 Time of Service: : Assessment and Plan Assessment and plan (1) Sepsis: Start date: 04/28/19 Start time: 14:28 Status: Acute Assessment and plan: Resolved, fever curve improving. Blood cultures Growing out serratia, switched to Ceftriaxone 2 gm daily and Levaquin 750 daily day 1. Repeat blood cultures. Echo for Tuesday r/o Endocarditis. Qualifiers: Sepsis type: sepsis due to unspecified organism Sepsis acute organ dysfunction status: without acute organ dysfunction Qualified Code(s): A41.9 - Sepsis, unspecified organism (2) Complicated UTI (urinary tract infection): Start date: 04/28/19 Start time: 14:30 Status: Acute Assessment and plan: antibiotics as above. Renal u/s with right 3 mm echogenic foci nephrolithasis. Question of mild left hydronephrosis. No obstruction or stricture. Straight caths QIDl. Continue to monitor urine output. Urology consult (3) Community acquired pneumonia: Start date: 04/28/19 Start time: 14:30 Status: Acute Assessment and plan: antibiotics as above along w/ prn aerosolized bronchodilators and supplemental oxygen. repeat lactate levels 0.9 today. Procalcitonin check tomorrow. Continue to monitor. CRP 13.37 continue to trend Qualifiers: Laterality: left Lung location: lower lobe of lung Qualified Code(s): J18.1 - Lobar pneumonia, unspecified organism (4) DVT prophylaxis: Start date: 04/28/19 Start time: 14:32 Status: Acute Assessment and plan: Enoxaparin (5) Urinary catheter insertion/adjustment/removal: Start date: 04/28/19 Start time: 14:32 Status: Acute Assessment and plan: Mother straight caths patient QID Above findings discussed with Dr. Munoz who is in agreement. Subjective Subjective Patient reports: feels better Interval history since last seen: No complaints per caregiver, more awake today. Blood culture grew serratia as did urine. Vanco and zosyn dcd after conversation with lab, as there were no sensitivities. Guideline recommendation ceftrixone 2 gm with levquin. Antibiotics switched. Repeat blood cultures and continue to monitor. Echo for Tuesday to r/o endocarditis. CRP elevated at 13.37, trend CRP and repeat procalcitonin tomorrow. Exam Const General: cooperative and no acute distress Nutritional Appearance: average body habitus Orientation: alert, awake and not oriented x3 Limitations: other limitations (cognitively impaired) [facility] Head: other (left posterior occipital scar from prior craniotomy) Ears: EAC abnormal excessive cerumen and hearing grossly impaired General nose exam: external nose normal, nares normal and nasal discharge Mouth: other (refused to open mouth for oral exam) Eyes General: appearance normal, both eyes and all related structures Alignment and Position: alignment normal Periorbital: periorbital findings normal Eyelids: eyelids normal Conjunctivae: conjunctivae normal Sclera: sclerae normal Cornea: corneas normal Pupils: PERRL Neck Neck: normal visual inspection, full ROM, no lymphadenopathy, no meningeal signs, trachea midline and no JVD Carotids: normal carotid upstroke Lymphatic: no lymphadenopathy noted Resp Effort & Inspection: normal respiratory effort Auscultation: diminished lung sounds bilaterally in the upper lung kaye (at both bases) Cardio Jugular venous pressure: no JVD Palpation: normal PMI Rate: regular rate Rhythm: regular rhythm Heart Sounds: S1 normal, S2 normal, normal, physiologic split S2, no gallops, no murmurs and no rubs Pulses: normal peripheral pulses GI Inspection: normal to inspection Palpation: soft and no hepatosplenomegaly Percussion: normal to percussion Auscultation: normal bowel sounds Skin General skin exam: no rashes or lesions noted, elasticity normal and turgor normal Neuro General: alert, awake, not oriented x3, moves all extremities and no focal motor deficits Cognition: abnormal cognition Speech: other (absent speech) Extrem General: normal capillary refill and no clubbing, cyanosis or edema Objective Objective Clinical Data: Abnormal lab results 04/28/19 04/28/19 Range/Units 07:30 07:30 RBC 4.35 L (4.50-6.00) m/cumm Hgb 12.2 L (13.5-17.5) g/dL Hct 38.5 L (40.0-50.0) % MCHC 31.7 L (32.0-36.0) g/dL MPV 11.3 H (8.0-11.0) fL Absolute Lymphocytes 0.77 L (1.2-3.4) k/cumm Chloride 110 H (98-107) mmol/L Glucose 106 H (70-100) mg/dL Calcium 7.8 L (8.5-10.1) mg/dL C-Reactive Protein 13.37 H (0.0-0.3) mg/dL Vital Signs Temperature 37.5 C 04/28/19 11:41 Temperature Source Tympanic 04/28/19 11:41 Pulse 87 04/28/19 11:41 Pulse Rhythm Regular 04/28/19 08:45 Pulse 102 H 04/26/19 00:45 Respiratory Rate 20 04/28/19 11:41 Respiratory Effort Non-Labored 04/28/19 08:45 Respiratory Depth Normal 04/28/19 08:45 Respiratory Pattern Normal 04/28/19 08:45 Blood Pressure 129/77 04/28/19 11:41 Blood Pressure Mean 77 04/26/19 00:45 Blood Pressure Position Sitting 04/25/19 23:54 Pulse Oximetry 95 04/28/19 11:41 Oxygen Delivery Method Room Air 04/28/19 11:41 Oxygen Flow Rate 0 04/28/19 11:41 Pain Level 0 04/27/19 14:00 Comment 04/28/19 07:40 Intake & Output 04/27/19 04/28/19 04/28/19 23:59 11:59 23:59 Intake Total 1127.50 / 2570.00 1262.50 / 1262.50 Output Total 660 / 1160 600 / 600 Balance 467.50 / 1410.00 662.50 / 662.50 Weight 71.9 kg Intake: IV 1127.50 / 1990.00 782.50 / 782.50 Oral 480 / 480 Output: Urine 660 / 1160 600 / 600 Other: Urine Color Light Joseline Light Joseline Urine Appearance Cloudy Clear Laboratory Results WBC 7.74 k/cumm (4.4-10.8) 04/28/19 07:30 RBC 4.35 m/cumm (4.50-6.00) L 04/28/19 07:30 Hgb 12.2 g/dL (13.5-17.5) L 04/28/19 07:30 Hct 38.5 % (40.0-50.0) L 04/28/19 07:30 MCV 88.5 fL (80-95) 04/28/19 07:30 MCH 28.0 pg (27.0-33.0) 04/28/19 07:30 MCHC 31.7 g/dL (32.0-36.0) L 04/28/19 07:30 RDW 14.1 % (11.8-14.1) 04/28/19 07:30 Plt Count 135 x1000/uL (130-400) 04/28/19 07:30 MPV 11.3 fL (8.0-11.0) H 04/28/19 07:30 Immature Gran % 0.0 04/28/19 07:30 Neutrophils % 76.0 04/28/19 07:30 Band Neutrophils % 2.0 % 04/28/19 07:30 Lymphocytes % 7.0 04/28/19 07:30 Atypical Lymphs % 3 04/28/19 07:30 Monocytes % 9.0 04/28/19 07:30 Eosinophils % 3.0 04/28/19 07:30 Basophils % 0.0 04/28/19 07:30 Absolute Neutrophils 6.04 k/cumm (1.2-6.7) 04/28/19 07:30 Absolute Lymphocytes 0.77 k/cumm (1.2-3.4) L 04/28/19 07:30 Absolute Monocytes 0.70 k/cumm (0.11-0.7) 04/28/19 07:30 Absolute Eosinophils 0.23 k/cumm (0.0-0.7) 04/28/19 07:30 Absolute Basophils 0.00 k/cumm (0.0-0.2) 04/28/19 07:30 Differential Comment Manual differential 04/28/19 07:30 RBC Morphology Normal 04/28/19 07:30 Sodium 145 mmol/L (136-145) 04/28/19 07:30 Potassium 4.0 mmol/L (3.5-5.1) 04/28/19 07:30 Chloride 110 mmol/L (98-107) H 04/28/19 07:30 Carbon Dioxide 27.8 mmol/L (21.0-32.0) 04/28/19 07:30 Anion Gap 7.2 mmol/L (3-11) 04/28/19 07:30 BUN 11 mg/dL (7-18) 04/28/19 07:30 Creatinine 1.27 mg/dL (0.70-1.30) 04/28/19 07:30 Estimated GFR/1.73 m2 59.10 (mL/min/1.73m2) 04/28/19 07:30 Glucose 106 mg/dL (70-100) H 04/28/19 07:30 Lactate 0.9 mmol/L (0.6-1.4) 04/27/19 06:24 Calcium 7.8 mg/dL (8.5-10.1) L 04/28/19 07:30 Magnesium 2.0 mg/dL (1.8-2.4) 04/28/19 07:30 Total Bilirubin 0.8 mg/dL (0.2-1.0) 04/26/19 00:45 AST 15 U/L (15-37) 04/26/19 00:45 ALT 27 U/L (16-63) 04/26/19 00:45 Alkaline Phosphatase 180 U/L (46-116) H 04/26/19 00:45 Troponin I < 0.05 ng/mL (0.00-0.06) 04/26/19 00:45 C-Reactive Protein 13.37 mg/dL (0.0-0.3) H 04/28/19 07:30 Total Protein 6.7 g/dL (6.4-8.2) 04/26/19 00:45 Albumin 2.5 g/dL (3.4-5.0) L 04/26/19 00:45 Procalcitonin 16.6 ng/mL 04/27/19 06:24
[2019-04-28 20:36] VITALS: BP 126/79; PULSE 80; RESP 18; TEMP 36.7; O2SAT 96
[2019-04-28 23:39] VITALS: BP 146/82; PULSE 80; RESP 19; TEMP 37.5; O2SAT 96
[2019-04-29] MEDS: Normal Saline 1,000 ML 75 ML IV (01:23)
[2019-04-29 03:12] VITALS: BP 122/67; PULSE 89; RESP 19; TEMP 37.5; O2SAT 93
[2019-04-29 07:51] LABS: Abs Immature Grans 0.08 k/cumm (0.0-0.09); HCT 38.4 % (40.0-50.0); HGB 12.2 g/dL (13.5-17.5); Mean Corp. HGB Concentration 31.8 g/dL (32.0-36.0); Mean Corpuscular Hemoglobin 27.9 pg (27.0-33.0); Mean Corpuscular Volume 87.9 fL (80-95); Mean Platelet Volume 10.6 fL (8.0-11.0); Platelet Count 146 x1000/uL (130-400); RBC 4.37 m/cumm (4.50-6.00); RBC Distribution Width 13.8 % (11.8-14.1); White Blood Cell Count 9.43 k/cumm (4.4-10.8)
[2019-04-29 08:05] LABS: Anion Gap 9.6 mmol/L (3-11); BUN 13 mg/dL (7-18); C-Reactive Protein 8.05 mg/dL (0.0-0.3); CO2 26.4 mmol/L (21.0-32.0); CREATININE 1.21 mg/dL (0.70-1.30); Calcium 7.9 mg/dL (8.5-10.1); Chloride 109 mmol/L (98-107); Glucose 104 mg/dL (70-100); Magnesium 1.5 mg/dL (1.8-2.4); Potassium 3.8 mmol/L (3.5-5.1); Sodium 145 mmol/L (136-145)
[2019-04-29] MEDS: Cholecalciferol (Vitamin D3) 1,000 UNIT TAB 1000 UNITS PO (08:18)
[2019-04-29] MEDS: Polyethylene Glycol 3350 17 GM PACKET PO (08:19)
[2019-04-29 08:23] LABS: Absolute Lymphocyte Count 0.94 k/cumm (1.2-3.4); Absolute Neutrophil Count 7.92 k/cumm (1.2-6.7); Atypical Lymphocytes % 4
[2019-04-29 08:24] LABS: Absolute Monocyte Count 0.47 k/cumm (0.11-0.7); Diff Comment Manual Differential; RBC Morphology Normal
[2019-04-29 08:25] VITALS: BP 137/80; PULSE 92; RESP 24; TEMP 37.5; O2SAT 92
[2019-04-29 08:28] LABS: Procalcitonin 4.4 ng/mL
[2019-04-29] MEDS: cefTRIAXone 2 GM/50 ML BAG IVPB (09:16)
--- NOTE | 2019-04-29 10:55 | PDOC.CMPRO ---
- If Service Date Differs Date of service: 04/29/19 Time of Service: 10:55 Care Management Progress Note /O: Hollis was sitting up in bed when CM met with him. His mother was with him and seems pleased with his progress. She expressed appreciation for the good care the nursing staff is providing. Hollis remains afebrile and ID will be consulted for home antibiotic timing and recommendations. A: Hollis is a 53 year old male admitted with UTI sepsis P:Hollis is receiving IV antibiotics for bacteremia and will be discharged when medically ready. No additional services at this time, will resume services through [facility], and DME agency at time of discharge. Family will provide transportation home when medically ready.
[2019-04-29] MEDS: MAGNESIUM SULFATE 4 GM/100 ML BAG IVPB (11:00)
[2019-04-29] MEDS: levoFLOXacin 750 MG/150 ML BAG 100 MG IVPB (11:26)
[2019-04-29 12:00] VITALS: BP 138/79; PULSE 84; RESP 30; TEMP 36.4; O2SAT 93
--- NOTE | 2019-04-29 13:32 | W.PM.PROGNOT ---
Date of Service Date of service: 04/29/19 Time of Service: 13:32 Assessment and Plan Assessment and plan (1) Sepsis: Start date: 04/29/19 Start time: 13:36 Status: Acute Assessment and plan: Improved. Fever defervesced. Day 2 rocephin and levaquin Echo for Tuesday r/o Endocarditis. ID consult for appropriate discharge regimen Qualifiers: Sepsis type: sepsis due to unspecified organism Sepsis acute organ dysfunction status: without acute organ dysfunction Qualified Code(s): A41.9 - Sepsis, unspecified organism (2) Complicated UTI (urinary tract infection): Start date: 04/29/19 Start time: 13:37 Status: Acute Assessment and plan: concurrent UTI with sepsis Urology consult. Improving (3) Community acquired pneumonia: Start date: 04/29/19 Start time: 13:38 Status: Acute Assessment and plan: Improving. Not requiring oxygen Fever defervesced. Continue to monitor. Qualifiers: Laterality: left Lung location: lower lobe of lung Qualified Code(s): J18.1 - Lobar pneumonia, unspecified organism (4) DVT prophylaxis: Start date: 04/29/19 Start time: 13:39 Status: Acute Assessment and plan: Enoxaparin (5) Urinary catheter insertion/adjustment/removal: Status: Acute Assessment and plan: Mother straight caths patient QID Urology consult Above findings discussed with Dr. Munoz who is in agreement. Subjective Subjective Patient reports: no new complaints Interval history since last seen: Fever defervesced. Improving on 2 gm ceftriaxone and levaquin. Repeat blood cultures NGTD. Echo for tomorrow. Will discuss with ID after echo tomorrow appropriate discharge regimen for antibiotics. PT/OT to see patient and get out of bed. Exam Const General: cooperative and no acute distress Nutritional Appearance: average body habitus Orientation: alert, awake and not oriented x3 Limitations: other limitations (cognitively impaired) [facility] Head: other (left posterior occipital scar from prior craniotomy) Ears: EAC abnormal excessive cerumen and hearing grossly impaired General nose exam: external nose normal, nares normal and nasal discharge Mouth: other (refused to open mouth for oral exam) Eyes General: appearance normal, both eyes and all related structures Alignment and Position: alignment normal Periorbital: periorbital findings normal Eyelids: eyelids normal Conjunctivae: conjunctivae normal Sclera: sclerae normal Cornea: corneas normal Pupils: PERRL Neck Neck: normal visual inspection, full ROM, no lymphadenopathy, no meningeal signs, trachea midline and no JVD Carotids: normal carotid upstroke Lymphatic: no lymphadenopathy noted Resp Effort & Inspection: normal respiratory effort Auscultation: diminished lung sounds bilaterally in the upper lung kaye (at both bases) Cardio Jugular venous pressure: no JVD Palpation: normal PMI Rate: regular rate Rhythm: regular rhythm Heart Sounds: S1 normal, S2 normal, normal, physiologic split S2, no gallops, no murmurs and no rubs Pulses: normal peripheral pulses GI Inspection: normal to inspection Palpation: soft and no hepatosplenomegaly Percussion: normal to percussion Auscultation: normal bowel sounds Skin General skin exam: no rashes or lesions noted, elasticity normal and turgor normal Neuro General: alert, awake, not oriented x3, moves all extremities and no focal motor deficits Cognition: abnormal cognition Speech: other (absent speech) Extrem General: normal capillary refill and no clubbing, cyanosis or edema Objective Objective Clinical Data: Abnormal lab results 04/29/19 04/29/19 Range/Units 07:15 07:15 RBC 4.37 L (4.50-6.00) m/cumm Hgb 12.2 L (13.5-17.5) g/dL Hct 38.4 L (40.0-50.0) % MCHC 31.8 L (32.0-36.0) g/dL Absolute Neutrophils 7.92 H (1.2-6.7) k/cumm Absolute Lymphocytes 0.94 L (1.2-3.4) k/cumm Chloride 109 H (98-107) mmol/L Glucose 104 H (70-100) mg/dL Calcium 7.9 L (8.5-10.1) mg/dL Magnesium 1.5 L (1.8-2.4) mg/dL C-Reactive Protein 8.05 H (0.0-0.3) mg/dL Vital Signs Temperature 36.4 C L 04/29/19 12:00 Temperature Source Skin 04/29/19 12:00 Pulse 84 04/29/19 12:00 Pulse Rhythm Regular 04/29/19 08:20 Pulse 102 H 04/26/19 00:45 Respiratory Rate 30 H 04/29/19 12:00 Respiratory Effort Incrsd Work of Breathing 04/29/19 08:20 Respiratory Depth Normal 04/29/19 08:20 Respiratory Pattern Tachypnea 04/29/19 08:20 Blood Pressure 138/79 04/29/19 12:00 Blood Pressure Mean 77 04/26/19 00:45 Blood Pressure Position Sitting 04/25/19 23:54 Pulse Oximetry 93 L 04/29/19 12:00 Oxygen Delivery Method Room Air 04/29/19 12:00 Oxygen Flow Rate 0 04/29/19 12:00 Pain Level 0 04/29/19 12:00 Comment 04/28/19 07:40 Intake & Output 04/28/19 04/29/19 04/29/19 23:59 11:59 23:59 Intake Total 1800 / 3062.50 300 / 300 Output Total 680 / 1280 1100 / 1620 520 / 1620 Balance 1120 / 1782.50 -800 / -1320 -520 / -1320 Weight 72.1 kg Intake: IV 1310 / 2092.50 60 / 60 Oral 490 / 970 240 / 240 Output: Urine 680 / 1280 1100 / 1620 520 / 1620 Other: Urine Color Light Joseline Yellow Light Joseline Urine Appearance Clear Clear Clear Stool Size Moderate Stool Characteristics Liquid Brown Laboratory Results WBC 9.43 k/cumm (4.4-10.8) 04/29/19 07:15 RBC 4.37 m/cumm (4.50-6.00) L 04/29/19 07:15 Hgb 12.2 g/dL (13.5-17.5) L 04/29/19 07:15 Hct 38.4 % (40.0-50.0) L 04/29/19 07:15 MCV 87.9 fL (80-95) 04/29/19 07:15 MCH 27.9 pg (27.0-33.0) 04/29/19 07:15 MCHC 31.8 g/dL (32.0-36.0) L 04/29/19 07:15 RDW 13.8 % (11.8-14.1) 04/29/19 07:15 Plt Count 146 x1000/uL (130-400) 04/29/19 07:15 MPV 10.6 fL (8.0-11.0) 04/29/19 07:15 Immature Gran % See Differential 04/29/19 07:15 Neutrophils % 82.0 04/29/19 07:15 Band Neutrophils % 2.0 % 04/29/19 07:15 Lymphocytes % 6.0 04/29/19 07:15 Atypical Lymphs % 4 04/29/19 07:15 Monocytes % 5.0 04/29/19 07:15 Eosinophils % 0.0 04/29/19 07:15 Basophils % 0.0 04/29/19 07:15 Metamyelocytes % 1.0 % 04/29/19 07:15 Absolute Neutrophils 7.92 k/cumm (1.2-6.7) H 04/29/19 07:15 Absolute Lymphocytes 0.94 k/cumm (1.2-3.4) L 04/29/19 07:15 Absolute Monocytes 0.47 k/cumm (0.11-0.7) 04/29/19 07:15 Absolute Eosinophils 0.00 k/cumm (0.0-0.7) 04/29/19 07:15 Absolute Basophils 0.00 k/cumm (0.0-0.2) 04/29/19 07:15 Differential Comment Manual differential 04/29/19 07:15 RBC Morphology Normal 04/29/19 07:15 Sodium 145 mmol/L (136-145) 04/29/19 07:15 Potassium 3.8 mmol/L (3.5-5.1) 04/29/19 07:15 Chloride 109 mmol/L (98-107) H 04/29/19 07:15 Carbon Dioxide 26.4 mmol/L (21.0-32.0) 04/29/19 07:15 Anion Gap 9.6 mmol/L (3-11) 04/29/19 07:15 BUN 13 mg/dL (7-18) 04/29/19 07:15 Creatinine 1.21 mg/dL (0.70-1.30) 04/29/19 07:15 Estimated GFR/1.73 m2 >= 60.00 (mL/min/1.73m2) 04/29/19 07:15 Glucose 104 mg/dL (70-100) H 04/29/19 07:15 Lactate 0.9 mmol/L (0.6-1.4) 04/27/19 06:24 Calcium 7.9 mg/dL (8.5-10.1) L 04/29/19 07:15 Magnesium 1.5 mg/dL (1.8-2.4) L 04/29/19 07:15 Total Bilirubin 0.8 mg/dL (0.2-1.0) 04/26/19 00:45 AST 15 U/L (15-37) 04/26/19 00:45 ALT 27 U/L (16-63) 04/26/19 00:45 Alkaline Phosphatase 180 U/L (46-116) H 04/26/19 00:45 Troponin I < 0.05 ng/mL (0.00-0.06) 04/26/19 00:45 C-Reactive Protein 8.05 mg/dL (0.0-0.3) H 04/29/19 07:15 Total Protein 6.7 g/dL (6.4-8.2) 04/26/19 00:45 Albumin 2.5 g/dL (3.4-5.0) L 04/26/19 00:45 Procalcitonin 4.4 ng/mL 04/29/19 07:15
[2019-04-29 16:05] VITALS: BP 139/83; PULSE 86; RESP 18; TEMP 37.2; O2SAT 94
[2019-04-29 20:31] VITALS: BP 136/89; PULSE 85; RESP 18; TEMP 37.3; O2SAT 93
[2019-04-30] VITALS (10 sets, daily range): BP systolic 107–163; BP diastolic 70–100; PULSE 76–98; RESP 14–20; TEMP 36.7–37.6; O2SAT 92–94
[2019-04-30 07:36] LABS: HCT 37.4 % (40.0-50.0); HGB 11.9 g/dL (13.5-17.5); Mean Corp. HGB Concentration 31.8 g/dL (32.0-36.0); Mean Corpuscular Hemoglobin 27.9 pg (27.0-33.0); Mean Corpuscular Volume 87.8 fL (80-95); Platelet Count 155 x1000/uL (130-400); RBC 4.26 m/cumm (4.50-6.00); RBC Distribution Width 14.1 % (11.8-14.1); White Blood Cell Count 9.62 k/cumm (4.4-10.8)
[2019-04-30 08:17] LABS: Anion Gap 9.5 mmol/L (3-11); BUN 15 mg/dL (7-18); C-Reactive Protein 9.91 mg/dL (0.0-0.3); CO2 26.5 mmol/L (21.0-32.0); CREATININE 1.16 mg/dL (0.70-1.30); Calcium 7.9 mg/dL (8.5-10.1); Chloride 107 mmol/L (98-107); Glucose 112 mg/dL (70-100); Magnesium 1.9 mg/dL (1.8-2.4); Sodium 143 mmol/L (136-145)
[2019-04-30 08:26] LABS: Absolute Eosinophil Count 0.19 k/cumm (0.0-0.7); Absolute Lymphocyte Count 1.06 k/cumm (1.2-3.4); Absolute Monocyte Count 0.77 k/cumm (0.11-0.7); Diff Comment Manual Differential; Hypochromasia 1+; Polychromasia Present
--- NOTE | 2019-04-30 08:47 | OT.INNT ---
Date of service: 04/30/19 Time of Service: 08:40 Occupational Therapy Notes 04/30/19 OT consult received and pt's chart was reviewed. Pt's mother was in the room when OT arrived. She reports that they do not feel that he needs OT services at this time as he requires (A) on a day to day basis. She states that she has someone who stays with him during the day and (A) as needed. She denies the need for pt to receive OT services at this time. She states that they have all DME and that the pt lives at home with his parents. OT will discharge pt from skilled OT services at this time. If family does decide that pt would benefit from skilled OT services, OT will need a new referral. Vida Cruz, OTR/[facility]
[2019-04-30] MEDS: Polyethylene Glycol 3350 17 GM PACKET PO (08:51)
[2019-04-30] MEDS: Cholecalciferol (Vitamin D3) 1,000 UNIT TAB 1000 UNITS PO (08:51)
--- NOTE | 2019-04-30 08:58 | CMPROGNOTE_ITS ---
- If Service Date Differs Date of service: 04/30/19 Time of Service: 08:58 Care Management Progress Note S/O: Hollis lying in bed his Mom and Dad are present in the room. Plan is for Gold to return home with IV abx through [facility]. CM faxed referral and prescription to [facility] and communicated referral to [facility] at discharge planning. will follow up with [facility] in the morning r/t benefits and home infusion coverage. CM did provide contact information for [address] [place] [address] to obtain his catheters he is currently receiving them through [place]. Gold will have a urology consult today and follow up as directed. Hollis will need a picc or midline placed prior to transition home. His Mom states she has taken care of his PICC line in the past and is willing to relearn care. A: Hollis is a 53 year old male admitted with UTI sepsis P:Hollis is receiving IV antibiotics for bacteremia and will need an additional 8 days of IV abx. CM contacted [facility] and placed the referral for home infusions, Hollis will need new home health nursing. He will resume services through [facility], and DME agency at time of discharge. CM to coordinate transportation home through ambulance services at time of discharge.
--- NOTE | 2019-04-30 08:58 | PDOC.CMPRO ---
- If Service Date Differs Date of service: 04/30/19 Time of Service: 08:58 Care Management Progress Note S/O: Hollis lying in bed his Mom and Dad are present in the room. Plan is for Gold to return home with IV abx through [facility]. CM faxed referral and prescription to [facility] and communicated referral to [facility] at discharge planning. will follow up with [facility] in the morning r/t benefits and home infusion coverage. CM did provide contact information for [address] [place] [address] to obtain his catheters he is currently receiving them through [place]. Gold will have a urology consult today and follow up as directed. Hollis will need a picc or midline placed prior to transition home. His Mom states she has taken care of his PICC line in the past and is willing to relearn care. A: Hollis is a 53 year old male admitted with UTI sepsis P:Hollis is receiving IV antibiotics for bacteremia and will need an additional 8 days of IV abx. CM contacted [facility] and placed the referral for home infusions, Hollis will need new home health nursing. He will resume services through [facility] [place], and DME agency at time of discharge. CM to coordinate transportation home through ambulance services at time of discharge.
[2019-04-30] MEDS: cefTRIAXone 2 GM/50 ML BAG IVPB (11:14)
--- NOTE | 2019-04-30 11:40 | MERGE_ITS ---
*[facility]* *[facility]* [address] [place] [address] Date of study: 04/30/2019 Transthoracic Echocardiography M-mode, complete 2D, complete spectral Doppler, and color Doppler *STUDY CONCLUSIONS* Summary: 1. Left ventricle: The cavity size was normal. Systolic function was normal. The estimated ejection fraction was 60-65%. Diastolic parameters were normal. There was no evidence of elevated ventricular filling pressure by Doppler parameters. 2. Aortic valve: There was mild to moderate regurgitation. 3. Right ventricle: The cavity size was normal. Wall thickness was normal. Systolic function was normal. 4. Pulmonary arteries: Systolic pressure could not be accurately estimated. 5. Inferior vena cava: Poorly visualized. *PATIENT PRESENTATION* Height: 170.2cm (67in ) S/D Pressure: 138 / 79 Weight: 71.7kg (157.7lb ) BSA: 1.85m^2 Test start time: 11:30 AM. Test stop time: 12:20 PM. PERFORMING [facility] FILM CASTING OPERATOR Roxanne Calvert CONSULTING Daina Martino ORDERING Daina Martino REFERRING Daina Martino *PROCEDURE DATA* Procedure information: This study was interpreted by [facility]. Pertinent images and digital data are archived for permanent storage and are available for subsequent review. No prior study was available for comparison. Study status: Routine. Transthoracic echocardiography. M-mode, complete 2D, complete spectral Doppler, and color Doppler. A Transthoracic Echocardiogram was performed. Scanning was performed from the parasternal, apical, subcostal, and suprasternal notch acoustic windows. Images were obtained using an [employer] 2000 cardiac ultrasound machine. Image quality was poor. Study completion: The patient tolerated the procedure well. History: PMH: R/o endocarditis. *CARDIAC ANATOMY* Left ventricle: The cavity size was normal. Systolic function was normal. The estimated ejection fraction was 60-65%. The tissue Doppler parameters were normal. Diastolic parameters were normal. There was no evidence of elevated ventricular filling pressure by Doppler parameters. Aortic valve: Trileaflet. Doppler: There was no stenosis. There was mild to moderate regurgitation. VTI ratio of LVOT to aortic valve: 0.86. Valve area (VTI): 2.1cm^2. Indexed valve area (VTI): 1.2cm^2/m^2. Peak velocity ratio of LVOT to aortic valve: 0.8. Valve area (Vmax): 2cm^2. Indexed valve area (Vmax): 1.1cm^2/m^2. Mean velocity ratio of LVOT to aortic valve: 0.72. Valve area (Vmean): 1.8cm^2. Indexed valve area (Vmean): 1cm^2/m^2. Mean gradient (S): 3.1mm Hg. Peak gradient (S): 5.3mm Hg. Aorta: Aortic root: The aortic root was normal in size. Ascending aorta: The ascending aorta was normal in size. Mitral valve: Doppler: There was no evidence for stenosis. There was no significant regurgitation. Valve area by pressure half-time: 3.6cm^2. Indexed valve area by pressure half-time: 1.9cm^2/m^2. Left atrium: Poorly visualized. Atrial septum: Poorly visualized. Right ventricle: The cavity size was normal. Wall thickness was normal. Systolic function was normal. Pulmonic valve: Doppler: There was no evidence for stenosis. There was mild regurgitation. Peak gradient (S): 4.1mm Hg. Tricuspid valve: Doppler: There was no significant regurgitation. Pulmonary artery: Poorly visualized. Systolic pressure could not be accurately estimated. Right atrium: Poorly visualized. Pericardium: There was no pericardial effusion. Systemic veins: Inferior vena cava: Poorly visualized. Measurements Left ventricle Value Reference LV ID, ED, PLAX 4.7 cm 3.5 - 6.0 LV ID, ES, PLAX 2.9 cm 2.1 - 4.0 LV PW thickness, ED, PLAX 0.9 cm LV e', lateral 0.137 m/sec LV E/e', lateral 5 LV e', medial 0.142 m/sec LV E/e', medial 5 LV e', average 0.139 m/sec LV E/e', average 5 Ventricular septum Value Reference IVS thickness, ED, PLAX 0.8 cm LVOT Value Reference LVOT ID, A-P 1.8 cm LVOT area 2.5 cm^2 LVOT peak velocity, S 0.92 m/sec LVOT mean velocity, S 0.6 m/sec LVOT VTI, S 18.9 cm LVOT peak gradient, S 3.4 mm Hg LVOT mean gradient, S 1.7 mm Hg Stroke volume (SV), LVOT DP 47 ml Stroke index (SV/bsa), LVOT DP 25 ml/m^2 Aortic valve Value Reference Aortic valve peak velocity, S 1.1 m/sec Aortic valve mean velocity, S 0.8 m/sec Aortic valve VTI, S 22.0 cm Aortic mean gradient, S 3.1 mm Hg Aortic peak gradient, S 5.3 mm Hg VTI ratio, LVOT/AV 0.86 Aortic valve area, VTI 2.1 cm^2 Velocity ratio, peak, LVOT/AV 0.8 Aortic valve area, peak velocity 2 cm^2 Velocity ratio, mean, LVOT/AV 0.72 Aortic valve area, mean velocity 1.8 cm^2 Aortic valve area/bsa, mean velocity 1 cm^2/m^2 Aortic regurg deceleration 296 cm/s^2 Aortic regurg pressure half-time 415 ms Aorta Value Reference Aortic root ID, ED 3.0 cm Ascending aorta ID, A-P, S 3.2 cm Left atrium Value Reference LA ID, A-P, ES 3.0 cm LA ID/bsa, A-P 1.6 cm/m^2 <=2.2 LA/aortic root ratio 0.99 Mitral valve Value Reference Mitral E-wave peak velocity 0.69 m/sec Mitral A-wave peak velocity 0.79 m/sec Mitral deceleration time 212 ms 150 - 230 Mitral pressure half-time 61 ms Mitral E/A ratio, peak 0.88 Mitral valve area, PHT, DP 3.6 cm^2 Right atrium Value Reference RA area, ES, A4C 8.4 cm^2 8.3 - 19.5 Pulmonic valve Value Reference Pulmonic peak gradient, S 4.1 mm Hg Legend: (L) and (H) theodore values outside specified reference range. I have personally reviewed the images and have reviewed and edited the reported findings. Electronically signed by Stefan Murrieta MD 04/30/2019 19:22
--- NOTE | 2019-04-30 11:58 | IN_ITS ---
Date of service: 04/30/19 Time of Service: 10:03 PT Notes Inpatient Physical Therapy Evaluation Date: 04/30/2019 Referring Doctor: Daina Martino NP PT Orders: PT CONSULT: Limited ability Precautions: Fall. Standard. Activity as tolerated. Aphasic. Patient Profile/Admitting Diagnosis: Patient is a 53-year-old male with past medical history significant for neurofibromatosis who presented to the ED on 04/26/2019 with chief presentation of fever and rigors. Patient was diagnosed with sepsis sepsis, complicated UTI, and community-acquired pneumonia. PMHX: Medical History Meningioma (Acute) Neurofibromatosis 2 (Acute) Urinary retention (Acute) Surgical History S/P craniotomy (Acute) S/P POST SECONDARY PROFESSIONAL shunt (Acute) Social History/Home Situation: Patient lives with parents and has 24/7 care at home. Mother states that around a month ago patient was independent with transfer and ambulation activity. 24/7 caregivers and parents are able to provide self-care and toileting assistance. Equipment Owned/DME: Regular wheelchair Subjective: Mother is agreeable to a PT eval today. She states that her son had been able to independently transfer and and perform short distance ambulation, although not consistently, a month ago. Both the caregiver and the mother reports that patient has not been out of bed since 5 days ago and claims that he did not need this much assistance as he needed today with mobility assessment. Objective: General Observation: Patient is seen lying in bed. L UE bent at the elbow and resting on his belly throughout session. Bilateral knee-high TEDS. Heel protectors on to B sides. Mental Status: Alert and oriented x 4 as to person, place, time, and purpose Pain: No non-verbal expression of pain seen throughout PT session ROM: Unable to do formal assessment of range of motion due to cognitive status and verbal impairment. Grossly, patient was able to advance each lower extremity during ambulation activity. He was able to propel wheelchair backward using bilateral lower extremities but now UV movement seen. Strength: Right Lower Extremity: Grossly 2-/5 Left Lower Extremity:Grossly 2-/5 Sensation: Unable to assess Bed Mobility/Transfers: Rolling max assist Supine to sit max assist Sit to supine max assist Sit to stand max assist Stand to sit max assist Bed to chair max assist Chair to bed max assist Gait: Patient was able to tolerate 6-8 steps from bedside to wheelchair and was able to make a turn and take 1-2 steps to back up to the wheelchair with max assist of 2 without an assistive device. Patient was also able to stand up from wheelchair and was able to walk to recliner about 6-8 steps, make a turn, and back up to steps before reaching reaching behind with his right hand with maximal tactile and visual cueing to sit. Balance: Static Sitting: Poor Dynamic Sitting: Poor Static Standing: Poor Dynamic Standing: Poor Special Tests: Mobility Limitations Standardized Measure [facility] AM-PAC 6 clicks Basic Mobility Inpatient Short Form: Raw Score: 6 CMS Score: 100% deficit Informed Consent/Education: Mother, patient,a nd caregiver were instructed in purpose of PT consult and plan of care. They were agreeable to working with PT to progress mobility level. Assessment: Patient is a 53-year-old male with past medical history significant for neurofibromatosis who presented to the ED on 04/26/2019 with chief presentation of fever and rigors. Patient was diagnosed with sepsis sepsis, complicated UTI, and community-acquired pneumonia. He does present decline in mobility ADL performance compared to the past several weeks. Mother and caregiver do feel the need to work on transfer and abulation activity performance. Patient presents with clinical signs and symptoms consistent with current/admitting diagnoses that have resulted to mobility limitations, gait instability, generalized weakness, and impairment of motor control as demonstrated by the following impairment level findings: 1. Decreased strength to B LE major muscle groups 2. Impaired sitting/standing balance 3. Impaired activity tolerance 4. Limitation of joint range of motion in B UE /LE Impairments are contributing to the following functional limitations: 1. Dependent bed mobility skills 2. Increased dependence with transfers 3. Inability to safely ambulate without assistive device and physical assistance 4. Increase completion time for mobility ADL performance 5. Increased fall risk 6. Inability to negotiate steps alone safely Patient is assessed as a [id number] high complexity based on the following: History: Patient with dysphasia and cognitive impairment related to past medical history significant for neurofibromatosis and meningioma status post a craniotomy and POST SECONDARY PROFESSIONAL shunt placement; Examination: Demonstrable impairment in strength, balance, and range of motion with underlying impairments and functional limitations as documented above Presentation:Evolving Decision Makin high complexity Goals: Goals X1 week 1. Supine-Sit minimal assist of 2 2. Sit-Supine minimal assist of 2 3. Sit-Stand minimal assist of 2 4. Stand-Sit minimal assist of 2 5. Bed-Chair minimal assist of 2 6. Chair-Bed minimal assist of 2 7. Minimal assist of 2 gait on level surface with use of least restrictive device for at least 15 feet without report of pain nor dyspnea 8. Fair static and dynamic sitting/standing balance/tolerance Plan of Care/Treatment Plan: 1-2x/day, 7 days/week x 1 week. Plan of care has been reviewed with the POLE FRAME CONSTRUCTION WORKER providing the service under Physical Therapy direction. Initiate Physical Therapy intervention for strengthening, bed mobility, transfers, gait, stairs, balance training, use of assistive device. DISCHARGE RECOMMENDATIONS: Patient will benefit from home health PT services in order to progress mobility level using, re-assess home safety, identify additional equipment needs, and establish a functional maintenance program that will increase ability of patient to remain at home. TREATMENT CODE/TIME: 49813 ? 30 minutes beginning at 10:03 AM. Thank you very much for this referral. Tina Arzola PT, DPT, CLT [facility]
[2019-04-30] MEDS: levoFLOXacin 750 MG/150 ML BAG 100 MG IVPB (12:28)
--- NOTE | 2019-04-30 14:06 | PGE_ITS ---
Date of Service Date of service: 04/30/19 Time of Service: 14:07 Assessment and Plan Assessment and plan (1) Sepsis: Start date: 04/30/19 Start time: 14:10 Status: Acute Assessment and plan: Improved. 37.6 temp, continue to monitor, CRP 9 Day 3 rocephin and levaquin Echo results pending ID consult for appropriate discharge regimen Consider swing if patient is stable Qualifiers: Sepsis type: sepsis due to unspecified organism Sepsis acute organ dysfunction status: without acute organ dysfunction Qualified Code(s): A41.9 - Sepsis, unspecified organism (2) Complicated UTI (urinary tract infection): Start date: 04/30/19 Start time: 14:11 Status: Acute Assessment and plan: concurrent UTI with sepsis Urology consult. Improving (3) Community acquired pneumonia: Start date: 04/30/19 Start time: 14:11 Status: Acute Assessment and plan: Improving. Not requiring oxygen Continue to monitor. Qualifiers: Laterality: left Lung location: lower lobe of lung Qualified Code(s): J18.1 - Lobar pneumonia, unspecified organism (4) DVT prophylaxis: Start date: 04/30/19 Start time: 14:11 Status: Acute Assessment and plan: Enoxaparin (5) Urinary catheter insertion/adjustment/removal: Start date: 04/30/19 Start time: 14:11 Status: Acute Assessment and plan: Mother straight caths patient QID Urology consult Above findings discussed with Dr. Munoz who is in agreement. (6) Diarrhea: Start date: 04/30/19 Start time: 14:11 Status: Acute Assessment and plan: multiple bouts of loose stool Cdiff negative. probiotic started. Subjective Subjective Patient reports: other Interval history since last seen: Having loose stool, cdiff negative. Started on probiotic. Echo results pending. Temp of 37.6., blood cultures no growth to feliz e, CRP 9. Continue to monitor, if CRP is trending down and patient is afebrile with no growth to blood culture, consider swing bed for antibiotics. Exam Const General: cooperative and no acute distress Nutritional Appearance: average body habitus Orientation: alert, awake and not oriented x3 Limitations: other limitations (cognitively impaired) HENMN Head: other (left posterior occipital scar from prior craniotomy) Ears: EAC abnormal excessive cerumen and hearing grossly impaired General nose exam: external nose normal, nares normal and nasal discharge Mouth: other (refused to open mouth for oral exam) Eyes General: appearance normal, both eyes and all related structures Alignment and Position: alignment normal Periorbital: periorbital findings normal Eyelids: eyelids normal Conjunctivae: conjunctivae normal Sclera: sclerae normal Cornea: corneas normal Pupils: PERRL Neck Neck: normal visual inspection, full ROM, no lymphadenopathy, no meningeal signs, trachea midline and no JVD Carotids: normal carotid upstroke Lymphatic: no lymphadenopathy noted Resp Effort & Inspection: normal respiratory effort Auscultation: diminished lung sounds bilaterally in the upper lung kaye (at both bases) Cardio Jugular venous pressure: no JVD Palpation: normal PMI Rate: regular rate Rhythm: regular rhythm Heart Sounds: S1 normal, S2 normal, normal, physiologic split S2, no gallops, no murmurs and no rubs Pulses: normal peripheral pulses GI Inspection: normal to inspection Palpation: soft and no hepatosplenomegaly Percussion: normal to percussion Auscultation: normal bowel sounds Skin General skin exam: no rashes or lesions noted, elasticity normal and turgor normal Neuro General: alert, awake, not oriented x3, moves all extremities and no focal motor deficits Cognition: abnormal cognition Speech: other (absent speech) Extrem General: normal capillary refill and no clubbing, cyanosis or edema Objective Objective Clinical Data: Abnormal lab results 04/30/19 04/30/19 Range/Units 06:40 06:40 RBC 4.26 L (4.50-6.00) m/cumm Hgb 11.9 L (13.5-17.5) g/dL Hct 37.4 L (40.0-50.0) % MCHC 31.8 L (32.0-36.0) g/dL Absolute Neutrophils 7.60 H (1.2-6.7) k/cumm Absolute Lymphocytes 1.06 L (1.2-3.4) k/cumm Absolute Monocytes 0.77 H (0.11-0.7) k/cumm Glucose 112 H (70-100) mg/dL Calcium 7.9 L (8.5-10.1) mg/dL C-Reactive Protein 9.91 H (0.0-0.3) mg/dL Vital Signs Temperature 37.6 C H 04/30/19 11:21 Temperature Source Tympanic 04/30/19 11:21 Pulse 90 04/30/19 11:21 Pulse Rhythm Regular 04/30/19 11:43 Pulse 102 H 04/26/19 00:45 Respiratory Rate 14 04/30/19 11:21 Respiratory Effort Non-Labored 04/30/19 11:43 Respiratory Depth Normal 04/30/19 11:43 Respiratory Pattern Normal 04/30/19 11:43 Blood Pressure 138/79 04/30/19 11:21 Blood Pressure Mean 77 04/26/19 00:45 Blood Pressure Position Sitting 04/25/19 23:54 Pulse Oximetry 94 L 04/30/19 11:21 Oxygen Delivery Method Room Air 04/30/19 11:21 Oxygen Flow Rate 0 04/30/19 11:21 Pain Level 0 04/30/19 03:24 Comment 04/30/19 11:21 Intake & Output 04/29/19 04/30/19 04/30/19 23:59 11:59 23:59 Intake Total 1520 / 1820 250 / 250 Output Total 940 / 2040 750 / 750 Balance 580 / -220 -500 / -500 Weight 71.9 kg Intake: IV 1150 / 1210 Oral 370 / 610 250 / 250 Output: Urine 940 / 2040 750 / 750 Other: Urine Color Yellow Light Joseline Urine Appearance Clear Clear Comment post-catheterization Stool Size Moderate Stool Characteristics Soft Brown Laboratory Results WBC 9.62 k/cumm (4.4-10.8) 04/30/19 06:40 RBC 4.26 m/cumm (4.50-6.00) L 04/30/19 06:40 Hgb 11.9 g/dL (13.5-17.5) L 04/30/19 06:40 Hct 37.4 % (40.0-50.0) L 04/30/19 06:40 MCV 87.8 fL (80-95) 04/30/19 06:40 MCH 27.9 pg (27.0-33.0) 04/30/19 06:40 MCHC 31.8 g/dL (32.0-36.0) L 04/30/19 06:40 RDW 14.1 % (11.8-14.1) 04/30/19 06:40 Plt Count 155 x1000/uL (130-400) 04/30/19 06:40 MPV 11.0 fL (8.0-11.0) 04/30/19 06:40 Immature Gran % See Differential 04/30/19 06:40 Neutrophils % 79.0 04/30/19 06:40 Band Neutrophils % 2.0 % 04/29/19 07:15 Lymphocytes % 11.0 04/30/19 06:40 Atypical Lymphs % 4 04/29/19 07:15 Monocytes % 8.0 04/30/19 06:40 Eosinophils % 2.0 04/30/19 06:40 Basophils % 0.0 04/30/19 06:40 Metamyelocytes % 1.0 % 04/29/19 07:15 Absolute Neutrophils 7.60 k/cumm (1.2-6.7) H 04/30/19 06:40 Absolute Lymphocytes 1.06 k/cumm (1.2-3.4) L 04/30/19 06:40 Absolute Monocytes 0.77 k/cumm (0.11-0.7) H 04/30/19 06:40 Absolute Eosinophils 0.19 k/cumm (0.0-0.7) 04/30/19 06:40 Absolute Basophils 0.00 k/cumm (0.0-0.2) 04/30/19 06:40 Differential Comment Manual differential 04/30/19 06:40 RBC Morphology See below 04/30/19 06:40 Polychromasia Present 04/30/19 06:40 Hypochromasia 1+ 04/30/19 06:40 Sodium 143 mmol/L (136-145) 04/30/19 06:40 Potassium 4.0 mmol/L (3.5-5.1) 04/30/19 06:40 Chloride 107 mmol/L (98-107) 04/30/19 06:40 Carbon Dioxide 26.5 mmol/L (21.0-32.0) 04/30/19 06:40 Anion Gap 9.5 mmol/L (3-11) 04/30/19 06:40 BUN 15 mg/dL (7-18) 04/30/19 06:40 Creatinine 1.16 mg/dL (0.70-1.30) 04/30/19 06:40 Estimated GFR/1.73 m2 >= 60.00 (mL/min/1.73m2) 04/30/19 06:40 Glucose 112 mg/dL (70-100) H 04/30/19 06:40 Lactate 0.9 mmol/L (0.6-1.4) 04/27/19 06:24 Calcium 7.9 mg/dL (8.5-10.1) L 04/30/19 06:40 Magnesium 1.9 mg/dL (1.8-2.4) 04/30/19 06:40 Total Bilirubin 0.8 mg/dL (0.2-1.0) 04/26/19 00:45 AST 15 U/L (15-37) 04/26/19 00:45 ALT 27 U/L (16-63) 04/26/19 00:45 Alkaline Phosphatase 180 U/L (46-116) H 04/26/19 00:45 Troponin I < 0.05 ng/mL (0.00-0.06) 04/26/19 00:45 C-Reactive Protein 9.91 mg/dL (0.0-0.3) H 04/30/19 06:40 Total Protein 6.7 g/dL (6.4-8.2) 04/26/19 00:45 Albumin 2.5 g/dL (3.4-5.0) L 04/26/19 00:45 Procalcitonin 4.4 ng/mL 04/29/19 07:15
--- NOTE | 2019-04-30 14:38 | W.PM.PROGNOT ---
Date of Service Date of service: 05/05/19 Time of Service: 13:30 Assessment and Plan Assessment and plan (1) Sepsis: Start date: 05/05/19 Start time: 13:36 Status: Acute Assessment and plan: Resolved, original blood cultures grew serratia. Repeat blood cultures no growth. He remains afebrile since 05/01. Ertapenem continued, midline being inserted for home infusion. DC Tuesday on home antibiotics. Qualifiers: Sepsis type: sepsis due to unspecified organism Sepsis acute organ dysfunction status: without acute organ dysfunction Qualified Code(s): A41.9 - Sepsis, unspecified organism (2) Complicated UTI (urinary tract infection): Start date: 05/05/19 Start time: 13:50 Status: Acute Assessment and plan: concurrent UTI with sepsis Antibiotics upgraded to meropenem based on ID recommendations as above. Urology consulted, Dr. House was able to review his previous imaging studies and culture results. Dr. House notes that the renal ultrasound findings appear to be chronic. He is not concerned with septic stones. Continue meropenem. Follow-up with urology as an outpatient. (3) Community acquired pneumonia: Start date: 05/05/19 Start time: 13:51 Status: Acute Assessment and plan: Improving. Not requiring oxygen Continue to monitor. Repeat CXR with no acute pulmonary disease Qualifiers: Laterality: left Lung location: lower lobe of lung Qualified Code(s): J18.1 - Lobar pneumonia, unspecified organism (4) DVT prophylaxis: Start date: 05/05/19 Start time: 13:52 Status: Acute Assessment and plan: Enoxaparin (5) Urinary catheter insertion/adjustment/removal: Start date: 05/05/19 Start time: 13:52 Status: Acute Assessment and plan: Mother straight caths patient QID Above findings discussed with Dr. Busby who is in agreement. Subjective Subjective Patient reports: no new complaints Interval history since last seen: Afebrile since 05/01. WBC better. Place midline today by anesthesia for home antibiotic therapy. Exam Narrative Exam Narrative: General: Awake, alert, nonverbal. Appears pale. Looking around the room. Allows examination. HEENT: Scar to left posterior occipital area from previous craniotomy. Pupils equal and round, lips are moist, did not open his mouth. Neck: Supple, no JVD. Cardiovascular: Heart has regular rate and rhythm, no murmur appreciated. Respiratory: Respirations even and unlabored, lungs sound clear bilaterally. GI: Normal active bowel sounds throughout, abdomen soft, nondistended, does not appear tender on palpation. Extremities: +1 pedal edema bilaterally. No calf swelling, warmth, erythema or tenderness. Objective Objective Clinical Data: Abnormal lab results 04/30/19 04/30/19 Range/Units 06:40 06:40 RBC 4.26 L (4.50-6.00) m/cumm Hgb 11.9 L (13.5-17.5) g/dL Hct 37.4 L (40.0-50.0) % MCHC 31.8 L (32.0-36.0) g/dL Absolute Neutrophils 7.60 H (1.2-6.7) k/cumm Absolute Lymphocytes 1.06 L (1.2-3.4) k/cumm Absolute Monocytes 0.77 H (0.11-0.7) k/cumm Glucose 112 H (70-100) mg/dL Calcium 7.9 L (8.5-10.1) mg/dL C-Reactive Protein 9.91 H (0.0-0.3) mg/dL Vital Signs Temperature 37.6 C H 04/30/19 11:21 Temperature Source Tympanic 04/30/19 11:21 Pulse 90 04/30/19 11:21 Pulse Rhythm Regular 04/30/19 11:43 Pulse 102 H 04/26/19 00:45 Respiratory Rate 14 04/30/19 11:21 Respiratory Effort Non-Labored 04/30/19 11:43 Respiratory Depth Normal 04/30/19 11:43 Respiratory Pattern Normal 04/30/19 11:43 Blood Pressure 138/79 04/30/19 11:21 Blood Pressure Mean 77 04/26/19 00:45 Blood Pressure Position Sitting 04/25/19 23:54 Pulse Oximetry 94 L 04/30/19 11:21 Oxygen Delivery Method Room Air 04/30/19 11:21 Oxygen Flow Rate 0 04/30/19 11:21 Pain Level 0 04/30/19 03:24 Comment 04/30/19 11:21 Intake & Output 04/29/19 04/30/19 04/30/19 23:59 11:59 23:59 Intake Total 1520 / 1820 250 / 370 120 / 370 Output Total 940 / 2040 750 / 750 Balance 580 / -220 -500 / -380 120 / -380 Weight 71.9 kg Intake: IV 1150 / 1210 Oral 370 / 610 250 / 370 120 / 370 Output: Urine 940 / 2040 750 / 750 Other: Urine Color Yellow Light Joseline Urine Appearance Clear Clear Comment post-catheterization Stool Size Moderate Stool Characteristics Soft Brown Laboratory Results WBC 9.62 k/cumm (4.4-10.8) 04/30/19 06:40 RBC 4.26 m/cumm (4.50-6.00) L 04/30/19 06:40 Hgb 11.9 g/dL (13.5-17.5) L 04/30/19 06:40 Hct 37.4 % (40.0-50.0) L 04/30/19 06:40 MCV 87.8 fL (80-95) 04/30/19 06:40 MCH 27.9 pg (27.0-33.0) 04/30/19 06:40 MCHC 31.8 g/dL (32.0-36.0) L 04/30/19 06:40 RDW 14.1 % (11.8-14.1) 04/30/19 06:40 Plt Count 155 x1000/uL (130-400) 04/30/19 06:40 MPV 11.0 fL (8.0-11.0) 04/30/19 06:40 Immature Gran % See Differential 04/30/19 06:40 Neutrophils % 79.0 04/30/19 06:40 Band Neutrophils % 2.0 % 04/29/19 07:15 Lymphocytes % 11.0 04/30/19 06:40 Atypical Lymphs % 4 04/29/19 07:15 Monocytes % 8.0 04/30/19 06:40 Eosinophils % 2.0 04/30/19 06:40 Basophils % 0.0 04/30/19 06:40 Metamyelocytes % 1.0 % 04/29/19 07:15 Absolute Neutrophils 7.60 k/cumm (1.2-6.7) H 04/30/19 06:40 Absolute Lymphocytes 1.06 k/cumm (1.2-3.4) L 04/30/19 06:40 Absolute Monocytes 0.77 k/cumm (0.11-0.7) H 04/30/19 06:40 Absolute Eosinophils 0.19 k/cumm (0.0-0.7) 04/30/19 06:40 Absolute Basophils 0.00 k/cumm (0.0-0.2) 04/30/19 06:40 Differential Comment Manual differential 04/30/19 06:40 RBC Morphology See below 04/30/19 06:40 Polychromasia Present 04/30/19 06:40 Hypochromasia 1+ 04/30/19 06:40 Sodium 143 mmol/L (136-145) 04/30/19 06:40 Potassium 4.0 mmol/L (3.5-5.1) 04/30/19 06:40 Chloride 107 mmol/L (98-107) 04/30/19 06:40 Carbon Dioxide 26.5 mmol/L (21.0-32.0) 04/30/19 06:40 Anion Gap 9.5 mmol/L (3-11) 04/30/19 06:40 BUN 15 mg/dL (7-18) 04/30/19 06:40 Creatinine 1.16 mg/dL (0.70-1.30) 04/30/19 06:40 Estimated GFR/1.73 m2 >= 60.00 (mL/min/1.73m2) 04/30/19 06:40 Glucose 112 mg/dL (70-100) H 04/30/19 06:40 Lactate 0.9 mmol/L (0.6-1.4) 04/27/19 06:24 Calcium 7.9 mg/dL (8.5-10.1) L 04/30/19 06:40 Magnesium 1.9 mg/dL (1.8-2.4) 04/30/19 06:40 Total Bilirubin 0.8 mg/dL (0.2-1.0) 04/26/19 00:45 AST 15 U/L (15-37) 04/26/19 00:45 ALT 27 U/L (16-63) 04/26/19 00:45 Alkaline Phosphatase 180 U/L (46-116) H 04/26/19 00:45 Troponin I < 0.05 ng/mL (0.00-0.06) 04/26/19 00:45 C-Reactive Protein 9.91 mg/dL (0.0-0.3) H 04/30/19 06:40 Total Protein 6.7 g/dL (6.4-8.2) 04/26/19 00:45 Albumin 2.5 g/dL (3.4-5.0) L 04/26/19 00:45 Procalcitonin 4.4 ng/mL 04/29/19 07:15
--- NOTE | 2019-04-30 15:41 | W.UROLOGYCON ---
Date of service: 04/30/19 Time of Service: 15:42 Assessment and Plan Assessment and plan (1) Neurogenic bladder: Status: Acute Assessment and plan: My recommendations will really depend on what I can sort out from his old records. I have no idea if the renal ultrasound findings are new or if they have been present previously. If they represent old stable findings, we probably do not need to do any additional studies. If I do not find any prior studies or if these findings were not seen on previous exams, our best test would be a noncontrast CT scan. His mother believes that Hollis has had CT scans in the past, so I will try to track them down. Typically, for the neurogenic bladder patient, we try to keep the bladder volumes less than 500 cc. When patients have variable volumes, we usually recommend a voiding diary to see if the high output volumes occur at the same time of day. This patient's mother and caregiver are already doing voiding diaries and there is no such pattern found. For the time being, I would not make any changes in the catheterization program. 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 He has had meningioma resection as well as a REMNANT SORTER shunt for hydrocephalus. Additional meningiomas were treated with a gamma knife. As a result, he has a neurogenic bladder. His mother and caregiver perform intermittent catheterization 4 times a day (they have done so for over 15 years). He has a history of recurrent urinary tract infections. They believe he has had urolithiasis but tell me that he has never had surgery for kidney stones. They have seen some stones that come out in the lumen of the catheter. His urine output with each catheterization varies from 100cc to 700 cc. On average, however, the catheterized volume is less than 500 cc. There is no difficulty in passing his catheter. His last urology encounter at our facility was over 4 years ago. He is admitted now with a febrile illness. He has been diagnosed with pneumonia and has been found to have Serratia in his urine. He has had a renal ultrasound which raises the question of right-sided kidney stones and mild left hydronephrosis. Review of Systems Review of Systems ROS Unobtainable: Unobtainable due to mental condition [facility] Medical History (Updated 04/30/19 @ 15:51 by Joey House MD) Meningioma (Acute) Neurofibromatosis 2 (Acute) Neurogenic bladder (Acute) Urinary retention (Acute) Surgical History S/P craniotomy (Acute) S/P REMNANT SORTER shunt (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 Exam Narrative Exam Narrative: He is awake and alert but not communicative His vital signs are documented elsewhere His abdomen is soft with no mass Results Last Vital Signs Temp 37.6 C H 04/30/19 11:21 Pulse 90 04/30/19 11:21 Resp 14 04/30/19 11:21 BP 138/79 04/30/19 11:21 Pulse Ox 94 L 04/30/19 11:21 Labs Result diagrams: 04/30/19 06:40 05/01/19 06:15 Labs: Laboratory Results - last 24 hr 04/30/19 04/30/19 06:40 06:40 WBC 9.62 RBC 4.26 L Hgb 11.9 L Hct 37.4 L MCV 87.8 MCH 27.9 MCHC 31.8 L RDW 14.1 Plt Count 155 MPV 11.0 Immature Gran % See Differential Neutrophils % 79.0 Lymphocytes % 11.0 Monocytes % 8.0 Eosinophils % 2.0 Basophils % 0.0 Absolute Neutrophils 7.60 H Absolute Lymphocytes 1.06 L Absolute Monocytes 0.77 H Absolute Eosinophils 0.19 Absolute Basophils 0.00 Differential Comment Manual differential RBC Morphology See below Polychromasia Present Hypochromasia 1+ Sodium 143 Potassium 4.0 Chloride 107 Carbon Dioxide 26.5 Anion Gap 9.5 BUN 15 Creatinine 1.16 Estimated GFR/1.73 m2 >= 60.00 Glucose 112 H Calcium 7.9 L Magnesium 1.9 C-Reactive Protein 9.91 H
[2019-04-30] MEDS: Acetaminophen 325 MG TAB PO (16:24)
[2019-05-01] VITALS (8 sets, daily range): BP systolic 119–145; BP diastolic 74–83; PULSE 71–95; RESP 18–21; TEMP 36.1–38.1; O2SAT 93–96
[2019-05-01] MEDS: Acetaminophen 325 MG TAB PO (03:20)
[2019-05-01 06:50] LABS: HCT 38.3 % (40.0-50.0); HGB 12.7 g/dL (13.5-17.5); Mean Corp. HGB Concentration 33.2 g/dL (32.0-36.0); Mean Corpuscular Hemoglobin 28.8 pg (27.0-33.0); Mean Corpuscular Volume 86.8 fL (80-95); Mean Platelet Volume 10.9 fL (8.0-11.0); RBC 4.41 m/cumm (4.50-6.00); White Blood Cell Count 9.71 k/cumm (4.4-10.8)
[2019-05-01 07:06] LABS: Anion Gap 7.5 mmol/L (3-11); BUN 17 mg/dL (7-18); C-Reactive Protein 7.35 mg/dL (0.0-0.3); CO2 27.5 mmol/L (21.0-32.0); CREATININE 1.21 mg/dL (0.70-1.30); Calcium 8.3 mg/dL (8.5-10.1); Chloride 107 mmol/L (98-107); Glucose 113 mg/dL (70-100); Magnesium 1.7 mg/dL (1.8-2.4); Sodium 142 mmol/L (136-145)
--- NOTE | 2019-05-01 07:16 | W.PM.PROGNOT ---
Date of Service Date of service: 05/01/19 Time of Service: 07:16 Assessment and Plan Assessment and plan (1) Neurogenic bladder: Status: Acute Assessment and plan: I was able to review his previous imaging studies (dating back to 2004) as well as his previous culture results. In terms of the imaging studies, he has had both ultrasounds and CT scans. He has been found to have bilateral nonobstructing kidney stones in the past. The dilation of the left kidney also appears chronic. In terms of his urine cultures, his positive urine cultures have shown different bacteria rather than the same bacteria over and over. His current bacteria (Serratia) is not associated with struvite type stones. It is almost always associated with foreign bodies such as catheters. His caregivers are already using single use catheters, but with his recurrent infections, we can probably justify providing the patient with single use, self-contained catheter and drainage products. We will contact 1 of the catheter suppliers to see if this type of catheter can be provided for home use. From what I can tell, all of the urologic findings from this hospitalization appear rather chronic for this patient. He probably should have a renal ultrasound to yearly at a minimum. Subjective Subjective Patient reports: no new complaints Exam Narrative Exam Narrative: His vital signs are documented elsewhere in the chart. His last straight cath was for 450 cc. Objective Objective Clinical Data: Abnormal lab results 04/30/19 04/30/19 05/01/19 Range/Units 06:40 06:40 06:15 RBC 4.26 L (4.50-6.00) m/cumm Hgb 11.9 L (13.5-17.5) g/dL Hct 37.4 L (40.0-50.0) % MCHC 31.8 L (32.0-36.0) g/dL Absolute Neutrophils 7.60 H (1.2-6.7) k/cumm Absolute Lymphocytes 1.06 L (1.2-3.4) k/cumm Absolute Monocytes 0.77 H (0.11-0.7) k/cumm Glucose 112 H 113 H (70-100) mg/dL Calcium 7.9 L 8.3 L (8.5-10.1) mg/dL Magnesium 1.7 L (1.8-2.4) mg/dL C-Reactive Protein 9.91 H 7.35 H (0.0-0.3) mg/dL Vital Signs Temperature 37.6 C H 05/01/19 06:33 Temperature Source Tympanic 05/01/19 06:33 Pulse 86 05/01/19 03:23 Pulse Rhythm Regular 05/01/19 03:48 Pulse 102 H 04/26/19 00:45 Respiratory Rate 18 05/01/19 03:23 Respiratory Effort Non-Labored 05/01/19 03:48 Respiratory Depth Normal 05/01/19 03:48 Respiratory Pattern Normal 05/01/19 03:48 Blood Pressure 130/83 05/01/19 03:23 Blood Pressure Mean 77 04/26/19 00:45 Blood Pressure Position Sitting 04/25/19 23:54 Pulse Oximetry 95 05/01/19 03:23 Oxygen Delivery Method Room Air 05/01/19 03:23 Oxygen Flow Rate 0 05/01/19 03:23 Pain Level 0 05/01/19 03:23 Comment 04/30/19 18:08 Intake & Output 04/30/19 04/30/19 05/01/19 11:59 23:59 11:59 Intake Total 250 / 370 120 / 370 Output Total 750 / 2400 1650 / 2400 300 / 300 Balance -500 / -2030 -1530 / -2030 -300 / -300 Weight 71.9 kg 70.9 kg Intake: Oral 250 / 370 120 / 370 Output: Urine 750 / 2400 1650 / 2400 300 / 300 Other: Urine Color Light Joseline Yellow Yellow Urine Appearance Clear Clear Clear Comment bs for 465, straight cath for 450 Stool Size Moderate Large Stool Characteristics Soft Formed Brown Liquid Laboratory Results WBC 9.62 k/cumm (4.4-10.8) 04/30/19 06:40 RBC 4.26 m/cumm (4.50-6.00) L 04/30/19 06:40 Hgb 11.9 g/dL (13.5-17.5) L 04/30/19 06:40 Hct 37.4 % (40.0-50.0) L 04/30/19 06:40 MCV 87.8 fL (80-95) 04/30/19 06:40 MCH 27.9 pg (27.0-33.0) 04/30/19 06:40 MCHC 31.8 g/dL (32.0-36.0) L 04/30/19 06:40 RDW 14.1 % (11.8-14.1) 04/30/19 06:40 Plt Count 155 x1000/uL (130-400) 04/30/19 06:40 MPV 11.0 fL (8.0-11.0) 04/30/19 06:40 Immature Gran % See Differential 04/30/19 06:40 Neutrophils % 79.0 04/30/19 06:40 Band Neutrophils % 2.0 % 04/29/19 07:15 Lymphocytes % 11.0 04/30/19 06:40 Atypical Lymphs % 4 04/29/19 07:15 Monocytes % 8.0 04/30/19 06:40 Eosinophils % 2.0 04/30/19 06:40 Basophils % 0.0 04/30/19 06:40 Metamyelocytes % 1.0 % 04/29/19 07:15 Absolute Neutrophils 7.60 k/cumm (1.2-6.7) H 04/30/19 06:40 Absolute Lymphocytes 1.06 k/cumm (1.2-3.4) L 04/30/19 06:40 Absolute Monocytes 0.77 k/cumm (0.11-0.7) H 04/30/19 06:40 Absolute Eosinophils 0.19 k/cumm (0.0-0.7) 04/30/19 06:40 Absolute Basophils 0.00 k/cumm (0.0-0.2) 04/30/19 06:40 Differential Comment Manual differential 04/30/19 06:40 RBC Morphology See below 04/30/19 06:40 Polychromasia Present 04/30/19 06:40 Hypochromasia 1+ 04/30/19 06:40 Sodium 142 mmol/L (136-145) 05/01/19 06:15 Potassium 4.0 mmol/L (3.5-5.1) 05/01/19 06:15 Chloride 107 mmol/L (98-107) 05/01/19 06:15 Carbon Dioxide 27.5 mmol/L (21.0-32.0) 05/01/19 06:15 Anion Gap 7.5 mmol/L (3-11) 05/01/19 06:15 BUN 17 mg/dL (7-18) 05/01/19 06:15 Creatinine 1.21 mg/dL (0.70-1.30) 05/01/19 06:15 Estimated GFR/1.73 m2 >= 60.00 (mL/min/1.73m2) 05/01/19 06:15 Glucose 113 mg/dL (70-100) H 05/01/19 06:15 Lactate 0.9 mmol/L (0.6-1.4) 04/27/19 06:24 Calcium 8.3 mg/dL (8.5-10.1) L 05/01/19 06:15 Magnesium 1.7 mg/dL (1.8-2.4) L 05/01/19 06:15 Total Bilirubin 0.8 mg/dL (0.2-1.0) 04/26/19 00:45 AST 15 U/L (15-37) 04/26/19 00:45 ALT 27 U/L (16-63) 04/26/19 00:45 Alkaline Phosphatase 180 U/L (46-116) H 04/26/19 00:45 Troponin I < 0.05 ng/mL (0.00-0.06) 04/26/19 00:45 C-Reactive Protein 7.35 mg/dL (0.0-0.3) H 05/01/19 06:15 Total Protein 6.7 g/dL (6.4-8.2) 04/26/19 00:45 Albumin 2.5 g/dL (3.4-5.0) L 04/26/19 00:45 Procalcitonin 4.4 ng/mL 04/29/19 07:15
[2019-05-01 08:12] LABS: Platelet Count 194 x1000/uL (130-400)
[2019-05-01 08:13] LABS: Absolute Eosinophil Count 0.29 k/cumm (0.0-0.7); Absolute Monocyte Count 0.58 k/cumm (0.11-0.7); Absolute Neutrophil Count 7.09 k/cumm (1.2-6.7)
[2019-05-01 08:15] LABS: Absolute Lymphocyte Count 1.55 k/cumm (1.2-3.4); Atypical Lymphocytes % 1; Diff Comment Manual Differential; RBC Morphology Normal
[2019-05-01] MEDS: Cholecalciferol (Vitamin D3) 1,000 UNIT TAB 1000 UNITS PO (08:52)
[2019-05-01] MEDS: cefTRIAXone 2 GM/50 ML BAG IVPB (09:37)
[2019-05-01] MEDS: levoFLOXacin 750 MG/150 ML BAG 100 MG IVPB (11:27)
[2019-05-01] MEDS: Normal Saline Flush 10 ML SYR IVP ×3 (11:27→17:46)
[2019-05-01] MEDS: Magnesium Oxide 400 MG TAB PO ×2 (12:02→20:14)
--- NOTE | 2019-05-01 13:27 | DI.RAD_ITS ---
EXAM: XR CHEST 2V PA LATERAL INDICATION: repeat, fever. COMPARISON: XR PORTABLE CHEST AP from 04/26/2019 TECHNIQUE: 2D digital imaging was performed. FINDINGS: An upright AP and lateral examination was obtained. There is elevation of the right hemidiaphragm. The lungs are free of gross infiltrate. The heart is top limits of normal in size. A ventriculoperi toneal shunt is unchanged in position. IMPRESSION: No evidence of acute cardiopulmonary disease.
[2019-05-01 16:00] LABS: Bilirubin Negative (Negative); Blood Trace-intact (Negative); Clarity Clear (Clear); Glucose Negative (Negative); Ketones Negative (Negative); Leukocyte Esterase Negative (Negative); Nitrite Negative (Negative); Specific Gravity 1.025 (1.005-1.025); Urobilinogen 0.2 EU/dL (Up TO 0.2); pH 6.5 (5-8)
[2019-05-01] MEDS: MEROPENEM 1 GM in Normal Saline 100 ML IVPB (16:06)
--- NOTE | 2019-05-01 16:07 | PGE_ITS ---
Date of Service Date of service: 05/01/19 Time of Service: 16:07 Assessment and Plan Assessment and plan (1) Sepsis: Status: Acute Assessment and plan: Appears improved overall, however, he did have a fever to 38.1 last night while on ceftriaxone and Levaquin. His urine cultures and blood cultures grew Serratia. His repeat blood cultures from 04/28/19 yielded no growth at 72 hours. Repeat blood cultures are pending due to fever overnight. His case was discussed with infectious disease today, ID recommended broadening antibiotics to meropenem. Repeat urinalysis negative for nitrites and leukocyte esterase, white blood cells pending. Repeat chest x-ray shows no acute process. Echo without evidence of endocarditis. Continue meropenem based on ID recommendations. Qualifiers: Sepsis type: sepsis due to unspecified organism Sepsis acute organ dysfunction status: without acute organ dysfunction Qualified Code(s): A41.9 - Sepsis, unspecified organism (2) Bacteremia: Status: Acute Assessment and plan: With urinary source, initial urine cultures and blood cultures both grew Serratia. As above, repeat blood cultures pending. (3) Complicated UTI (urinary tract infection): Status: Acute Assessment and plan: Antibiotics upgraded to meropenem based on ID recommendations as above. Urology consulted, Dr. House was able to review his previous imaging studies and culture results. Dr. House notes that the renal ultrasound findings appear to be chronic. He is not concerned with septic stones. Continue meropenem. (4) Community acquired pneumonia: Status: Acute Assessment and plan: Initial chest x-ray showed small infiltrate involving the left lower lobe. Repeat chest x-ray in the setting of a fever shows no acute cardiopulmonary disease. Qualifiers: Laterality: left Lung location: lower lobe of lung Qualified Code(s): J18.1 - Lobar pneumonia, unspecified organism (5) Neurogenic bladder: Status: Acute Assessment and plan: Chronic requiring intermittent catheterizations. (6) Urinary catheter insertion/adjustment/removal: Status: Acute Assessment and plan: His mother is his primary caregiver and straight caths the patient 4 times daily. Continue intermittent catheterization. Urology consulted as above. (7) Diarrhea: Status: Acute Assessment and plan: Appears to have resolved, no reports of diarrhea today. (8) DVT prophylaxis: Status: Acute Assessment and plan: Subcutaneous Lovenox. (9) Discharge planning issues: Status: Acute Assessment and plan: He is a full code. He will be discharged home with his mother, where he also has a caregiver, when he is ready for discharge. This case was discussed with Dr. Munoz who is in agreement. Subjective Subjective Interval history since last seen: Hollis Ambriz's mom reports that he is doing remarkably better today. He has been interactive and smiling with his mother and caregiver. He is eating and drinking well. His urine is more clear and light yellow. His blood cultures have yielded no growth at 72 hours. He did have a fever overnight. Repeat chest x-ray shows no acute process. Repeat blood cultures are pending, repeat urinalysis pending. His case was discussed with infectious disease who recommended broadening antibiotics in the setting of a fever. He has been upgraded to meropenem. Exam Narrative Exam Narrative: General: Awake, alert, nonverbal. Pleasant, smiling. Allows examination. HEENT: Scar to left posterior occipital area from previous craniotomy. Pupils equal and round, mucous membranes moist. Neck: Supple, no JVD. Cardiovascular: Heart has regular rate and rhythm, no murmur appreciated. Respiratory: Respirations even and unlabored, lungs sound clear bilaterally. GI: Normal active bowel sounds throughout, abdomen soft, nondistended, does not appear tender on palpation. Extremities: +1 pedal edema bilaterally. Objective Objective Clinical Data: Abnormal lab results 05/01/19 05/01/19 05/01/19 Range/Units 06:15 06:15 15:19 RBC 4.41 L (4.50-6.00) m/cumm Hgb 12.7 L (13.5-17.5) g/dL Hct 38.3 L (40.0-50.0) % Absolute Neutrophils 7.09 H (1.2-6.7) k/cumm Glucose 113 H (70-100) mg/dL Calcium 8.3 L (8.5-10.1) mg/dL Magnesium 1.7 L (1.8-2.4) mg/dL C-Reactive Protein 7.35 H (0.0-0.3) mg/dL Urine Protein >=300 H (Negative) mg/dL Urine Blood Trace-intact H (Negative) Vital Signs Temperature 36.8 C 05/01/19 11:10 Temperature Source Tympanic 05/01/19 11:10 Pulse 91 H 05/01/19 11:10 Pulse Rhythm Regular 05/01/19 09:18 Pulse 102 H 04/26/19 00:45 Respiratory Rate 18 05/01/19 11:10 Respiratory Effort Non-Labored 05/01/19 09:18 Respiratory Depth Normal 05/01/19 09:18 Respiratory Pattern Normal 05/01/19 09:18 Blood Pressure 125/83 05/01/19 11:10 Blood Pressure Mean 77 04/26/19 00:45 Blood Pressure Position Sitting 04/25/19 23:54 Pulse Oximetry 93 L 05/01/19 11:10 Oxygen Delivery Method Room Air 05/01/19 11:10 Oxygen Flow Rate 0 05/01/19 11:10 Pain Level 0 05/01/19 11:10 Comment 04/30/19 18:08 Intake & Output 04/30/19 05/01/19 05/01/19 23:59 11:59 23:59 Intake Total 120 / 420 200 / 200 Output Total 1650 / 2400 875 / 875 Balance -1530 / -1980 -675 / -675 Weight 70.9 kg Intake: IV 200 / 200 Oral 120 / 370 Output: Urine 1650 / 2400 875 / 875 Other: Urine Color Yellow Yellow Urine Appearance Clear Clear Comment bs for 465, straight cath for 450 Patients mom straight cathed him. Amount 425 post bladder scan. Nurse Gabe notified. Stool Size Large Stool Characteristics Formed Liquid Laboratory Results WBC 9.71 k/cumm (4.4-10.8) 05/01/19 06:15 RBC 4.41 m/cumm (4.50-6.00) L 05/01/19 06:15 Hgb 12.7 g/dL (13.5-17.5) L 05/01/19 06:15 Hct 38.3 % (40.0-50.0) L 05/01/19 06:15 MCV 86.8 fL (80-95) 05/01/19 06:15 MCH 28.8 pg (27.0-33.0) 05/01/19 06:15 MCHC 33.2 g/dL (32.0-36.0) 05/01/19 06:15 RDW 14.0 % (11.8-14.1) 05/01/19 06:15 Plt Count 194 x1000/uL (130-400) 05/01/19 06:15 MPV 10.9 fL (8.0-11.0) 05/01/19 06:15 Immature Gran % See Differential 05/01/19 06:15 Neutrophils % 73.0 05/01/19 06:15 Band Neutrophils % 2.0 % 04/29/19 07:15 Lymphocytes % 15.0 05/01/19 06:15 Atypical Lymphs % 1 05/01/19 06:15 Monocytes % 6.0 05/01/19 06:15 Eosinophils % 3.0 05/01/19 06:15 Basophils % 0.0 05/01/19 06:15 Metamyelocytes % 2.0 % 05/01/19 06:15 Absolute Neutrophils 7.09 k/cumm (1.2-6.7) H 05/01/19 06:15 Absolute Lymphocytes 1.55 k/cumm (1.2-3.4) 05/01/19 06:15 Absolute Monocytes 0.58 k/cumm (0.11-0.7) 05/01/19 06:15 Absolute Eosinophils 0.29 k/cumm (0.0-0.7) 05/01/19 06:15 Absolute Basophils 0.00 k/cumm (0.0-0.2) 05/01/19 06:15 Differential Comment Manual differential 05/01/19 06:15 RBC Morphology Normal 05/01/19 06:15 Polychromasia Present 04/30/19 06:40 Hypochromasia 1+ 04/30/19 06:40 Sodium 142 mmol/L (136-145) 05/01/19 06:15 Potassium 4.0 mmol/L (3.5-5.1) 05/01/19 06:15 Chloride 107 mmol/L (98-107) 05/01/19 06:15 Carbon Dioxide 27.5 mmol/L (21.0-32.0) 05/01/19 06:15 Anion Gap 7.5 mmol/L (3-11) 05/01/19 06:15 BUN 17 mg/dL (7-18) 05/01/19 06:15 Creatinine 1.21 mg/dL (0.70-1.30) 05/01/19 06:15 Estimated GFR/1.73 m2 >= 60.00 (mL/min/1.73m2) 05/01/19 06:15 Glucose 113 mg/dL (70-100) H 05/01/19 06:15 Lactate 0.9 mmol/L (0.6-1.4) 04/27/19 06:24 Calcium 8.3 mg/dL (8.5-10.1) L 05/01/19 06:15 Magnesium 1.7 mg/dL (1.8-2.4) L 05/01/19 06:15 Total Bilirubin 0.8 mg/dL (0.2-1.0) 04/26/19 00:45 AST 15 U/L (15-37) 04/26/19 00:45 ALT 27 U/L (16-63) 04/26/19 00:45 Alkaline Phosphatase 180 U/L (46-116) H 04/26/19 00:45 Troponin I < 0.05 ng/mL (0.00-0.06) 04/26/19 00:45 C-Reactive Protein 7.35 mg/dL (0.0-0.3) H 05/01/19 06:15 Total Protein 6.7 g/dL (6.4-8.2) 04/26/19 00:45 Albumin 2.5 g/dL (3.4-5.0) L 04/26/19 00:45 Procalcitonin 4.4 ng/mL 04/29/19 07:15 Urine Color Yellow (Yellow) 05/01/19 15:19 Urine Clarity Clear (Clear) 05/01/19 15:19 Urine pH 6.5 (5-8) 05/01/19 15:19 Ur Specific [place] 1.025 (1.005-1.025) 05/01/19 15:19 Urine Protein >=300 mg/dL (Negative) H 05/01/19 15:19 Urine Ketones Negative mg/dL (Negative) 05/01/19 15:19 Urine Blood Trace-intact (Negative) H 05/01/19 15:19 Urine Nitrite Negative (Negative) 05/01/19 15:19 Urine Bilirubin Negative (Negative) 05/01/19 15:19 Urine Urobilinogen 0.2 EU/dL (Up TO 0.2) 05/01/19 15:19 Ur Leukocyte Esterase Negative (Negative) 05/01/19 15:19 Urine Glucose Negative mg/dL (Negative) 05/01/19 15:19
[2019-05-01 16:48] LABS: Bacteria Rare HPF (Negative); C & S Indicated? Yes; Casts Negative LPF (Negative); Crystals Negative HPF (Negative); Epithelial Cells Few HPF (Negative); Mucus Negative (Negative); Other Cells Negative (Negative); WBC >50 HPF (0-5)
--- NOTE | 2019-05-01 17:00 | PT.INTREAT ---
Date of service: 05/01/19 Time of Service: 11:29 PT Notes Inpatient Physical Therapy Treatment Note [facility] Date: 05/01/2019 PRECAUTIONS: Standard. Falls. Dysphasic. SUBJECTIVE: Patient is non-verbal but is not showing any signs of distress or disagreement to physical therapy treatment. Patient smiled twice during therapy session. OBJECTIVE: Patient is seen laying supine in bed with HOB elevated. PAIN: Patient did not express pain. BED MOBILITY/TRANSFERS Rolling L/R: Minimum assist Supine-sit: Minimum assist Sit-supine: Minimum assist Sit-stand: Minimum assist of 2 Stand-sit: Minimum assist of 2 Bed-Chair: Minimum assist of 2 Chair-bed: Minimum assist of 2 GAIT Assistive Device: None Weight bearing: FWB Assist: CGA of 2 for both sessions. Distance: 13' + 30' + 13'. In the afternoon, mother and caregiver requested that patient rest as he seemed tired from this morning's session. Deviation: Dysrhythmic gait with increased trunk lean, decreased step height/length, and with wheelchair follow, cues given for direction. Mild shortness of breath. ASSESSMENT: Patient is a 53 year old male admitted to the med/surg unit with sepsis and UTI. He communicates only through body language and facial expression. He is able to follow directions if the task is initiated with contact-assist. His mobility has improved greatly since admission. He is now able to ambulate more than 120 feet with CGA of 2. He is showing signs/symptoms consistent with his current/admitting condition. PLAN: Continue with PT POC as initially established. TREATMENT CODE/TIME: Session 1- 99968 x 1 unit beginning at 11:29 AM Session 2- 18517 x 1 unit beginning at 12:54 PM.
[2019-05-02] VITALS (7 sets, daily range): BP systolic 115–125; BP diastolic 76–81; PULSE 78–100; RESP 17–20; TEMP 36.4–37.3; O2SAT 94–936
[2019-05-02] MEDS: MEROPENEM 1 GM in Normal Saline 100 ML IVPB ×3 (00:14→16:41)
[2019-05-02] MEDS: Normal Saline Flush 10 ML SYR IVP ×3 (00:15→16:41)
[2019-05-02 07:18] LABS: Abs Immature Grans 0.43 k/cumm (0.0-0.09); HCT 38.6 % (40.0-50.0); HGB 12.2 g/dL (13.5-17.5); Mean Corp. HGB Concentration 31.6 g/dL (32.0-36.0); Mean Corpuscular Hemoglobin 27.7 pg (27.0-33.0); Mean Corpuscular Volume 87.5 fL (80-95); Mean Platelet Volume 10.7 fL (8.0-11.0); Platelet Count 232 x1000/uL (130-400); RBC 4.41 m/cumm (4.50-6.00); RBC Distribution Width 14.1 % (11.8-14.1); White Blood Cell Count 10.71 k/cumm (4.4-10.8)
[2019-05-02 07:53] LABS: Anion Gap 7.6 mmol/L (3-11); BUN 20 mg/dL (7-18); CO2 26.4 mmol/L (21.0-32.0); Calcium 8.2 mg/dL (8.5-10.1); Chloride 108 mmol/L (98-107); Glucose 99 mg/dL (70-100); Magnesium 1.8 mg/dL (1.8-2.4); Potassium 4.3 mmol/L (3.5-5.1); Sodium 142 mmol/L (136-145)
[2019-05-02 08:32] LABS: Absolute Lymphocyte Count 1.07 k/cumm (1.2-3.4); Absolute Neutrophil Count 8.35 k/cumm (1.2-6.7)
[2019-05-02 08:33] LABS: Absolute Eosinophil Count 0.11 k/cumm (0.0-0.7); Absolute Monocyte Count 0.64 k/cumm (0.11-0.7); Atypical Lymphocytes % 2
[2019-05-02 08:34] LABS: Absolute Basophil Count 0.11 k/cumm (0.0-0.2); Diff Comment Manual Differential; Polychromasia Present
[2019-05-02] MEDS: Cholecalciferol (Vitamin D3) 1,000 UNIT TAB 1000 UNITS PO (08:48)
[2019-05-02] MEDS: Magnesium Oxide 400 MG TAB PO ×2 (08:48→19:54)
--- NOTE | 2019-05-02 15:33 | W.PM.PROGNOT ---
Date of Service Date of service: 05/02/19 Time of Service: 15:33 Assessment and Plan Assessment and plan (1) Sepsis: Status: Acute Assessment and plan: Appears improved overall, no fevers overnight. His original urine cultures and blood cultures grew Serratia. His repeat blood cultures from 04/28/19 yielded no growth at 72 hours. Another set of blood cultures are pending due to fever after being afebrile x48 hours. His case was discussed with infectious disease yesterday, ID recommended broadening antibiotics to meropenem. Repeat urinalysis negative for nitrites and leukocyte esterase, culture pending. Repeat chest x-ray showed no acute process. Echo without evidence of endocarditis. Continue meropenem based on ID recommendations. Monitor blood cultures. Qualifiers: Sepsis type: sepsis due to unspecified organism Sepsis acute organ dysfunction status: without acute organ dysfunction Qualified Code(s): A41.9 - Sepsis, unspecified organism (2) Bacteremia: Status: Acute Assessment and plan: With urinary source, initial urine cultures and blood cultures both grew Serratia. As above, repeat blood cultures pending. (3) Complicated UTI (urinary tract infection): Status: Acute Assessment and plan: Antibiotics upgraded to meropenem based on ID recommendations as above. Urology consulted, Dr. House was able to review his previous imaging studies and culture results. Dr. House notes that the renal ultrasound findings appear to be chronic. He is not concerned with septic stones. Continue meropenem. Follow-up with urology as an outpatient. (4) Community acquired pneumonia: Status: Acute Assessment and plan: Initial chest x-ray showed small infiltrate involving the left lower lobe. Repeat chest x-ray in the setting of a fever shows no acute cardiopulmonary disease. Qualifiers: Laterality: left Lung location: lower lobe of lung Qualified Code(s): J18.1 - Lobar pneumonia, unspecified organism (5) Neurogenic bladder: Status: Acute Assessment and plan: Chronic requiring intermittent catheterizations. (6) Urinary catheter insertion/adjustment/removal: Status: Acute Assessment and plan: His mother is his primary caregiver and straight caths the patient 4 times daily. Continue intermittent catheterization. Urology consulted as above. (7) Diarrhea: Status: Acute Assessment and plan: Appears to have resolved, no reports of diarrhea today. (8) DVT prophylaxis: Status: Acute Assessment and plan: Subcutaneous Lovenox. (9) Discharge planning issues: Status: Acute Assessment and plan: He is a full code. He will be discharged home with his mother, where he also has a caregiver, when he is ready for discharge. This case was discussed with Dr. Munoz who is in agreement. Subjective Subjective Interval history since last seen: Hollis Ambriz's mom continues to report that he is doing well. His mood is not as positive as it was yesterday, however, he is eating and drinking well. She reports that he is not sleeping well but relates this to him being in the hospital. His original blood cultures have yielded no growth at 96 hours, repeat blood cultures are pending. His original urine culture and blood cultures grew Serratia. His repeat urine culture has yielded no growth at 24 hours. He has remained afebrile overnight. Exam Narrative Exam Narrative: General: Awake, alert, nonverbal. Looking around the room. Allows examination. HEENT: Scar to left posterior occipital area from previous craniotomy. Pupils equal and round, lips are moist, did not open his mouth. Neck: Supple, no JVD. Cardiovascular: Heart has regular rate and rhythm, no murmur appreciated. Respiratory: Respirations even and unlabored, lungs sound clear bilaterally. GI: Normal active bowel sounds throughout, abdomen soft, nondistended, does not appear tender on palpation. Extremities: +1 pedal edema bilaterally. No calf swelling, warmth, erythema or tenderness. Objective Objective Clinical Data: Abnormal lab results 05/01/19 05/02/19 05/02/19 Range/Units 15:19 06:10 06:10 RBC 4.41 L (4.50-6.00) m/cumm Hgb 12.2 L (13.5-17.5) g/dL Hct 38.6 L (40.0-50.0) % MCHC 31.6 L (32.0-36.0) g/dL Absolute Neutrophils 8.35 H (1.2-6.7) k/cumm Absolute Lymphocytes 1.07 L (1.2-3.4) k/cumm Chloride 108 H (98-107) mmol/L BUN 20 H (7-18) mg/dL Calcium 8.2 L (8.5-10.1) mg/dL Urine Protein >=300 H (Negative) mg/dL Urine Blood Trace-intact H (Negative) Urine RBC 10-20 H (0-2) Vital Signs Temperature 36.5 C 05/02/19 11:55 Temperature Source Tympanic 05/02/19 11:55 Pulse 100 H 05/02/19 11:55 Pulse Rhythm Regular 05/02/19 09:00 Pulse 102 H 04/26/19 00:45 Respiratory Rate 20 05/02/19 11:55 Respiratory Effort 05/02/19 09:00 Respiratory Depth Normal 05/02/19 09:00 Respiratory Pattern Normal 05/02/19 09:00 Blood Pressure 122/81 05/02/19 11:55 Blood Pressure Mean 77 04/26/19 00:45 Blood Pressure Position Sitting 04/25/19 23:54 Pulse Oximetry 936 H 05/02/19 11:55 Oxygen Delivery Method Room Air 05/02/19 11:55 Oxygen Flow Rate 0 05/02/19 11:55 Pain Level 0 05/02/19 11:55 Comment 05/02/19 11:55 Intake & Output 05/01/19 05/02/19 05/02/19 23:59 11:59 23:59 Intake Total 250 / 450 380 / 480 100 / 480 Output Total 375 / 1250 770 / 770 Balance -125 / -800 -390 / -290 100 / -290 Intake: IV 250 / 450 100 / 200 100 / 200 Oral 280 / 280 Output: Urine 375 / 1250 770 / 770 Other: Urine Color Straw Pale Yellow Urine Appearance Clear Clear Comment Nurse Gabe notified. Stool Size Moderate Stool Characteristics Soft Formed Laboratory Results WBC 10.71 k/cumm (4.4-10.8) 05/02/19 06:10 RBC 4.41 m/cumm (4.50-6.00) L 05/02/19 06:10 Hgb 12.2 g/dL (13.5-17.5) L 05/02/19 06:10 Hct 38.6 % (40.0-50.0) L 05/02/19 06:10 MCV 87.5 fL (80-95) 05/02/19 06:10 MCH 27.7 pg (27.0-33.0) 05/02/19 06:10 MCHC 31.6 g/dL (32.0-36.0) L 05/02/19 06:10 RDW 14.1 % (11.8-14.1) 05/02/19 06:10 Plt Count 232 x1000/uL (130-400) 05/02/19 06:10 MPV 10.7 fL (8.0-11.0) 05/02/19 06:10 Immature Gran % See Differential 05/02/19 06:10 Neutrophils % 65.0 05/02/19 06:10 Band Neutrophils % 13.0 % 05/02/19 06:10 Lymphocytes % 8.0 05/02/19 06:10 Atypical Lymphs % 2 05/02/19 06:10 Monocytes % 6.0 05/02/19 06:10 Eosinophils % 1.0 05/02/19 06:10 Basophils % 1.0 05/02/19 06:10 Metamyelocytes % 4.0 % 05/02/19 06:10 Absolute Neutrophils 8.35 k/cumm (1.2-6.7) H 05/02/19 06:10 Absolute Lymphocytes 1.07 k/cumm (1.2-3.4) L 05/02/19 06:10 Absolute Monocytes 0.64 k/cumm (0.11-0.7) 05/02/19 06:10 Absolute Eosinophils 0.11 k/cumm (0.0-0.7) 05/02/19 06:10 Absolute Basophils 0.11 k/cumm (0.0-0.2) 05/02/19 06:10 Differential Comment Manual differential 05/02/19 06:10 RBC Morphology See below 05/02/19 06:10 Polychromasia Present 05/02/19 06:10 Hypochromasia 1+ 04/30/19 06:40 Sodium 142 mmol/L (136-145) 05/02/19 06:10 Potassium 4.3 mmol/L (3.5-5.1) 05/02/19 06:10 Chloride 108 mmol/L (98-107) H 05/02/19 06:10 Carbon Dioxide 26.4 mmol/L (21.0-32.0) 05/02/19 06:10 Anion Gap 7.6 mmol/L (3-11) 05/02/19 06:10 BUN 20 mg/dL (7-18) H 05/02/19 06:10 Creatinine 1.20 mg/dL (0.70-1.30) 05/02/19 06:10 Estimated GFR/1.73 m2 >= 60.00 (mL/min/1.73m2) 05/02/19 06:10 Glucose 99 mg/dL (70-100) 05/02/19 06:10 Lactate 0.9 mmol/L (0.6-1.4) 04/27/19 06:24 Calcium 8.2 mg/dL (8.5-10.1) L 05/02/19 06:10 Magnesium 1.8 mg/dL (1.8-2.4) 05/02/19 06:10 Total Bilirubin 0.8 mg/dL (0.2-1.0) 04/26/19 00:45 AST 15 U/L (15-37) 04/26/19 00:45 ALT 27 U/L (16-63) 04/26/19 00:45 Alkaline Phosphatase 180 U/L (46-116) H 04/26/19 00:45 Troponin I < 0.05 ng/mL (0.00-0.06) 04/26/19 00:45 C-Reactive Protein 7.35 mg/dL (0.0-0.3) H 05/01/19 06:15 Total Protein 6.7 g/dL (6.4-8.2) 04/26/19 00:45 Albumin 2.5 g/dL (3.4-5.0) L 04/26/19 00:45 Procalcitonin 4.4 ng/mL 04/29/19 07:15 Urine Color Yellow (Yellow) 05/01/19 15:19 Urine Clarity Clear (Clear) 05/01/19 15:19 Urine pH 6.5 (5-8) 05/01/19 15:19 Ur Specific [place] 1.025 (1.005-1.025) 05/01/19 15:19 Urine Protein >=300 mg/dL (Negative) H 05/01/19 15:19 Urine Ketones Negative mg/dL (Negative) 05/01/19 15:19 Urine Blood Trace-intact (Negative) H 05/01/19 15:19 Urine Nitrite Negative (Negative) 05/01/19 15:19 Urine Bilirubin Negative (Negative) 05/01/19 15:19 Urine Urobilinogen 0.2 EU/dL (Up TO 0.2) 05/01/19 15:19 Ur Leukocyte Esterase Negative (Negative) 05/01/19 15:19 Urine RBC 10-20 (0-2) H 05/01/19 15:19 Urine WBC >50 HPF (0-5) 05/01/19 15:19 Ur Epithelial Cells Few HPF (Negative) 05/01/19 15:19 Urine Crystals Negative HPF (Negative) 05/01/19 15:19 Urine Bacteria Rare HPF (Negative) 05/01/19 15:19 Urine Casts Negative LPF (Negative) 05/01/19 15:19 Urine Mucus Negative (Negative) 05/01/19 15:19 Urine Other Negative (Negative) 05/01/19 15:19 Ur Culture Indicated? Yes 05/01/19 15:19 Urine Glucose Negative mg/dL (Negative) 05/01/19 15:19
--- NOTE | 2019-05-02 18:00 | PT.INTREAT ---
Date of service: 05/02/19 Time of Service: 11:24 PT Notes Inpatient Physical Therapy Treatment Note [facility] Date: 05/02/2019 PRECAUTIONS: Standard. Falls. Dysphasic.. SUBJECTIVE: Patient is non-verbal but is not showing any signs of distress or disagreement to physical therapy treatment. His caregiver and mother state that they really want him up and moving. OBJECTIVE: Patient is seen laying supine in bed with HOB elevated. PAIN: Patient did not express pain. BED MOBILITY/TRANSFERS Rolling L/R: Minimum assist Supine-sit: Minimum assist Sit-supine: Minimum assist Sit-stand: Minimum assist of 2 Stand-sit: Minimum assist of 2 Bed-Chair: Minimum assist of 2 Chair-bed: Minimum assist of 2 GAIT Assistive Device: None Weight bearing: FWB Assist: CGA of 2 for both sessions. Distance: 20' + 120 + 20', around the whole nursing loop. In the afternoon, mother nad CG reported symptoms of fatigue in patient and so patient did about 10 steps from recliner to bedside only. Deviation: Dysrhythmic gait with increased trunk lean, decreased step height/length, and with wheelchair follow, cues given for direction. Mild shortness of breath. ASSESSMENT: Patient is a 53 year old male admitted to the med/surg unit with sepsis and UTI. He communicates only through body language and facial expression. He is able to follow directions if the task is initiated with contact-assist. His mobility has improved greatly since admission. He is now able to ambulate more than 120 feet with CGA of 2. He is showing signs/symptoms consistent with his current/admitting condition. PLAN: Continue with PT POC as initially established. TREATMENT CODE/TIME: Session 1- 12460 x 1 unit beginning at 11:24 AM Session 2- [id number] x 1 unit beginning at 13:04 PM.
--- NOTE | 2019-05-02 20:12 | CMPROGNOTE_ITS ---
- If Service Date Differs Date of service: 05/02/19 Time of Service: 20:12 Care Management Progress Note S/O: Hollis lying in bed his Mom is present and appreciative of care he is receiving. Plan was for him to return home on IV abx though [facility] which have been approved with no copay. Hollis remains acute and may not need home infusions he appears to be improving on his current antibiotics and may be able to transition to oral prior to returning home. Hollis will need a ambulance for return home with his parents. Anticipate new home health referral for nursing, PT and OT related to prolonged hospital stay and recent illness. A: Hollis is a 53 year old male admitted with UTI sepsis P:Hollis is receiving IV antibiotics for bacteremia and remains inpatient. Hollis will need new home health nursing. He will resume services through [facility], and DME agency at time of discharge. CM to coordinate transportation home through ambulance services at time of discharge.
[2019-05-03] MEDS: MEROPENEM 1 GM in Normal Saline 100 ML IVPB ×3 (00:27→16:25)
[2019-05-03] MEDS: Normal Saline Flush 10 ML SYR IVP ×3 (00:28→16:25)
[2019-05-03 03:34] VITALS: BP 129/82; PULSE 83; RESP 18; TEMP 37.2; O2SAT 94
[2019-05-03 07:31] LABS: Abs Immature Grans 0.36 k/cumm (0.0-0.09); HCT 40.2 % (40.0-50.0); HGB 12.7 g/dL (13.5-17.5); Mean Corp. HGB Concentration 31.6 g/dL (32.0-36.0); Mean Corpuscular Hemoglobin 27.9 pg (27.0-33.0); Mean Corpuscular Volume 88.2 fL (80-95); Mean Platelet Volume 10.3 fL (8.0-11.0); Platelet Count 293 x1000/uL (130-400); RBC 4.56 m/cumm (4.50-6.00); RBC Distribution Width 14.2 % (11.8-14.1); White Blood Cell Count 12.34 k/cumm (4.4-10.8)
[2019-05-03 07:37] LABS: Anion Gap 8.5 mmol/L (3-11); BUN 20 mg/dL (7-18); CO2 28.5 mmol/L (21.0-32.0); CREATININE 1.24 mg/dL (0.70-1.30); Calcium 8.7 mg/dL (8.5-10.1); Chloride 105 mmol/L (98-107); Glucose 102 mg/dL (70-100); Magnesium 1.9 mg/dL (1.8-2.4); Potassium 4.7 mmol/L (3.5-5.1); Sodium 142 mmol/L (136-145)
[2019-05-03 08:03] VITALS: BP 129/81; PULSE 81; RESP 16; TEMP 36.8; O2SAT 94
[2019-05-03] MEDS: Polyethylene Glycol 3350 17 GM PACKET PO (08:31)
[2019-05-03] MEDS: Bisacodyl 10 MG SUPP PR (08:34)
[2019-05-03] MEDS: Cholecalciferol (Vitamin D3) 1,000 UNIT TAB 1000 UNITS PO (08:34)
[2019-05-03] MEDS: Magnesium Oxide 400 MG TAB PO ×2 (08:34→19:22)
[2019-05-03 08:46] LABS: Absolute Eosinophil Count 0.12 k/cumm (0.0-0.7); Absolute Lymphocyte Count 1.11 k/cumm (1.2-3.4); Absolute Monocyte Count 0.37 k/cumm (0.11-0.7); Absolute Neutrophil Count 10.49 k/cumm (1.2-6.7)
[2019-05-03 08:47] LABS: Diff Comment Manual Differential; Promyelocytes % 0 %; RBC Morphology Normal
[2019-05-03 11:00] VITALS: BP 110/72; PULSE 73; RESP 16; TEMP 36.8; O2SAT 97
--- NOTE | 2019-05-03 12:48 | PDOC.CMPRO ---
Care Management Progress Note S/O: CM received a call from [facility] RN stating Hollis will be connected with [facility]. Shonda requested CM coordinate information between [facility] and [facility]. Hollis was lying in bed, his mother and caregiver at his side. CM spoke with Hollis's mother to discuss [facility] coordination. Cathleen Madrigal reported her preference would be to discuss equipment supplies with [facility] over the phone from Hollis's room as she is staying here during the day and her is spending nights with Hollis at [facility]. CM continues to follow. A: Hollis is a 53 year old male admitted with UTI sepsis P: Hollis is receiving IV antibiotics (Miripenum) for bacteremia and remains inpatient at this time. He will resume services through [facility], and DME agency at time of discharge. Anticipate new orders for [facility] RN upon discharge. Undetermined if Hollis will require IV ABX ([facility]-vs-Home infusion) or return home on oral medications; CM continues to follow. CM to coordinate transportation home through ambulance services at time of discharge.
--- NOTE | 2019-05-03 15:00 | PT.INNT ---
Date of service: 05/03/19 PT Notes Nursing requested patient to be placed on hold for physical therapy this morning as patient is being managed to address constipation and is on suppository. Patient was seen later in the afternoon for another attempt at treatment. Mother stated that they have walked patient around the nursing loop already with the help of his caregiver and nursing staff. Mother states that son is now tired and would not be able to do anything. Mother was advised that patient will be reduced to 1x/day for visit frequency in order to assess for stability of gains achieved in PT and to allow for optimal caregiver participation and training in preparation for home discharge when cleared by .
[2019-05-03 16:01] VITALS: BP 121/77; PULSE 69; RESP 18; TEMP 37.2; O2SAT 96
[2019-05-03 20:30] VITALS: BP 111/74; PULSE 90; RESP 18; TEMP 37.3; O2SAT 97
--- NOTE | 2019-05-03 21:20 | PGE_ITS ---
Date of Service Date of service: 05/03/19 Time of Service: 21:20 Assessment and Plan Assessment and plan (1) Sepsis: Status: Acute Assessment and plan: He remains afebrile. His original urine cultures and blood cultures grew Serratia. Most recent blood cultures negative x48 hours. His case was discussed with infectious disease after he spiked a fever on levaquin and ceftriaxone, ID recommended broadening antibiotics to meropenem. Repeat UA not suspicous for infection, culture pending. Repeat chest x-ray showed no acute process. Echo without evidence of endocarditis. Continue meropenem based on ID recommendations. Monitor blood cultures. Consider INPATIENT NURSING AIDE shunt infection. Consult ID. Qualifiers: Sepsis acute organ dysfunction status: without acute organ dysfunction Sepsis type: sepsis due to unspecified organism Qualified Code(s): A41.9 - Sepsis, unspecified organism (2) Bacteremia: Status: Acute Assessment and plan: With urinary source, initial urine cultures and blood cultures both grew Serratia. As above, repeat blood cultures pending. (3) Complicated UTI (urinary tract infection): Status: Acute Assessment and plan: Antibiotics upgraded to meropenem based on ID recommendations as above. Urology consulted, Dr. House was able to review his previous imaging studies and culture results. Dr. House notes that the renal ultrasound findings appear to be chronic. He is not concerned with septic ston es. Continue meropenem. Follow-up with urology as an outpatient. (4) Community acquired pneumonia: Status: Acute Assessment and plan: Initial chest x-ray showed small infiltrate involving the left lower lobe. Repeat chest x-ray in the setting of a fever shows no acute cardiopulmonary disease. Qualifiers: Laterality: left Lung location: lower lobe of lung Qualified Code(s): J18.1 - Lobar pneumonia, unspecified organism (5) Neurogenic bladder: Status: Acute Assessment and plan: Chronic requiring intermittent catheterizations. (6) Urinary catheter insertion/adjustment/removal: Status: Acute Assessment and plan: His mother is his primary caregiver and straight caths the patient 4 times daily. Continue intermittent catheterization. Urology consulted as above. (7) Diarrhea: Status: Acute Assessment and plan: Resolved. (8) DVT prophylaxis: Status: Acute Assessment and plan: Subcutaneous Lovenox. (9) Discharge planning issues: Status: Acute Assessment and plan: He is a full code. He will be discharged home with his mother, where he also has a caregiver, when he is ready for discharge. This case was discussed with Dr. Munoz who is in agreement. Subjective Subjective Interval history since last seen: Hollis Ambriz's mom continues to report that he is doing well. He is eating and drinking well. She reports that he is not sleeping well but relates this to him being in the hospital. His mother is concern about INPATIENT NURSING AIDE shunt infection. She denies that he has been coughing. She has been intermittently catheterizing him, she reports that his urine is clearing. He had a bowel movement today. Exam Narrative Exam Narrative: General: Awake, alert, nonverbal. Looking around the room. Allows examination. HEENT: Scar to left posterior occipital area from previous craniotomy. Pupils equal and round, lips are moist, did not open his mouth. Neck: Supple, no JVD. Cardiovascular: Heart has regular rate and rhythm, no murmur appreciated. Respiratory: Respirations even and unlabored, lungs sound clear bilaterally. GI: Normal active bowel sounds throughout, abdomen soft, nondistended, does not appear tender on palpation. Extremities: +1 pedal edema bilaterally. No calf swelling, warmth, erythema or tenderness. Objective Objective Clinical Data: Abnormal lab results 05/03/19 05/03/19 Range/Units 07:05 07:05 WBC 12.34 H (4.4-10.8) k/cumm Hgb 12.7 L (13.5-17.5) g/dL MCHC 31.6 L (32.0-36.0) g/dL RDW 14.2 H (11.8-14.1) % Absolute Neutrophils 10.49 H (1.2-6.7) k/cumm Absolute Lymphocytes 1.11 L (1.2-3.4) k/cumm BUN 20 H (7-18) mg/dL Glucose 102 H (70-100) mg/dL Vital Signs Temperature 37.3 C 05/03/19 20:30 Temperature Source Tympanic 05/03/19 20:30 Pulse 90 05/03/19 20:30 Pulse Rhythm Regular 05/03/19 15:00 Pulse 102 H 04/26/19 00:45 Respiratory Rate 18 05/03/19 20:30 Respiratory Effort 05/03/19 15:00 Respiratory Depth Normal 05/03/19 15:00 Respiratory Pattern Normal 05/03/19 15:00 Blood Pressure 111/74 05/03/19 20:30 Blood Pressure Mean 77 04/26/19 00:45 Blood Pressure Position Sitting 04/25/19 23:54 Pulse Oximetry 97 05/03/19 20:30 Oxygen Delivery Method Room Air 05/03/19 20:30 Oxygen Flow Rate 0 05/03/19 20:30 Pain Level 0 05/03/19 20:30 Comment 05/03/19 09:25 Intake & Output 05/02/19 05/03/19 05/03/19 23:59 11:59 23:59 Intake Total 200 / 580 440 / 780 340 / 780 Output Total 300 / 1070 800 / 800 Balance -100 / -490 -360 / -20 340 / -20 Weight 70.9 kg Intake: IV 200 / 300 200 / 300 100 / 300 Oral 240 / 480 240 / 480 Output: Urine 300 / 1070 800 / 800 Other: Urine Color Yellow Urine Appearance Clear Clear Clear Comment mother will straight cath at 21:00 Stool Size Large Stool Characteristics Soft Formed Laboratory Results WBC 12.34 k/cumm (4.4-10.8) H 05/03/19 07:05 RBC 4.56 m/cumm (4.50-6.00) 05/03/19 07:05 Hgb 12.7 g/dL (13.5-17.5) L 05/03/19 07:05 Hct 40.2 % (40.0-50.0) 05/03/19 07:05 MCV 88.2 fL (80-95) 05/03/19 07:05 MCH 27.9 pg (27.0-33.0) 05/03/19 07:05 MCHC 31.6 g/dL (32.0-36.0) L 05/03/19 07:05 RDW 14.2 % (11.8-14.1) H 05/03/19 07:05 Plt Count 293 x1000/uL (130-400) 05/03/19 07:05 MPV 10.3 fL (8.0-11.0) 05/03/19 07:05 Immature Gran % See Differential 05/03/19 07:05 Neutrophils % 84.0 05/03/19 07:05 Band Neutrophils % 1.0 % 05/03/19 07:05 Lymphocytes % 9.0 05/03/19 07:05 Atypical Lymphs % 2 05/02/19 06:10 Monocytes % 3.0 05/03/19 07:05 Eosinophils % 1.0 05/03/19 07:05 Basophils % 0.0 05/03/19 07:05 Metamyelocytes % 2.0 % 05/03/19 07:05 Myelocytes % 0.0 % 05/03/19 07:05 Promyelocytes % 0 % 05/03/19 07:05 Absolute Neutrophils 10.49 k/cumm (1.2-6.7) H 05/03/19 07:05 Absolute Lymphocytes 1.11 k/cumm (1.2-3.4) L 05/03/19 07:05 Absolute Monocytes 0.37 k/cumm (0.11-0.7) 05/03/19 07:05 Absolute Eosinophils 0.12 k/cumm (0.0-0.7) 05/03/19 07:05 Absolute Basophils 0.00 k/cumm (0.0-0.2) 05/03/19 07:05 Differential Comment Manual differential 05/03/19 07:05 RBC Morphology Normal 05/03/19 07:05 Polychromasia Present 05/02/19 06:10 Hypochromasia 1+ 04/30/19 06:40 Sodium 142 mmol/L (136-145) 05/03/19 07:05 Potassium 4.7 mmol/L (3.5-5.1) 05/03/19 07:05 Chloride 105 mmol/L (98-107) 05/03/19 07:05 Carbon Dioxide 28.5 mmol/L (21.0-32.0) 05/03/19 07:05 Anion Gap 8.5 mmol/L (3-11) 05/03/19 07:05 BUN 20 mg/dL (7-18) H 05/03/19 07:05 Creatinine 1.24 mg/dL (0.70-1.30) 05/03/19 07:05 Estimated GFR/1.73 m2 >= 60.00 (mL/min/1.73m2) 05/03/19 07:05 Glucose 102 mg/dL (70-100) H 05/03/19 07:05 Lactate 0.9 mmol/L (0.6-1.4) 04/27/19 06:24 Calcium 8.7 mg/dL (8.5-10.1) 05/03/19 07:05 Magnesium 1.9 mg/dL (1.8-2.4) 05/03/19 07:05 Total Bilirubin 0.8 mg/dL (0.2-1.0) 04/26/19 00:45 AST 15 U/L (15-37) 04/26/19 00:45 ALT 27 U/L (16-63) 04/26/19 00:45 Alkaline Phosphatase 180 U/L (46-116) H 04/26/19 00:45 Troponin I < 0.05 ng/mL (0.00-0.06) 04/26/19 00:45 C-Reactive Protein 7.35 mg/dL (0.0-0.3) H 05/01/19 06:15 Total Protein 6.7 g/dL (6.4-8.2) 04/26/19 00:45 Albumin 2.5 g/dL (3.4-5.0) L 04/26/19 00:45 Procalcitonin 4.4 ng/mL 04/29/19 07:15 Urine Color Yellow (Yellow) 05/01/19 15:19 Urine Clarity Clear (Clear) 05/01/19 15:19 Urine pH 6.5 (5-8) 05/01/19 15:19 Ur Specific [place] 1.025 (1.005-1.025) 05/01/19 15:19 Urine Protein >=300 mg/dL (Negative) H 05/01/19 15:19 Urine Ketones Negative mg/dL (Negative) 05/01/19 15:19 Urine Blood Trace-intact (Negative) H 05/01/19 15:19 Urine Nitrite Negative (Negative) 05/01/19 15:19 Urine Bilirubin Negative (Negative) 05/01/19 15:19 Urine Urobilinogen 0.2 EU/dL (Up TO 0.2) 05/01/19 15:19 Ur Leukocyte Esterase Negative (Negative) 05/01/19 15:19 Urine RBC 10-20 (0-2) H 05/01/19 15:19 Urine WBC >50 HPF (0-5) 09/24/19 15:19 Ur Epithelial Cells Few HPF (Negative) 05/01/19 15:19 Urine Crystals Negative HPF (Negative) 05/01/19 15:19 Urine Bacteria Rare HPF (Negative) 05/01/19 15:19 Urine Casts Negative LPF (Negative) 05/01/19 15:19 Urine Mucus Negative (Negative) 05/01/19 15:19 Urine Other Negative (Negative) 05/01/19 15:19 Ur Culture Indicated? Yes 05/01/19 15:19 Urine Glucose Negative mg/dL (Negative) 05/01/19 15:19
[2019-05-03 23:36] VITALS: BP 108/71; PULSE 90; RESP 20; TEMP 36.9; O2SAT 95
[2019-05-04] MEDS: Normal Saline Flush 10 ML SYR IVP ×3 (00:45→16:45)
[2019-05-04] MEDS: MEROPENEM 1 GM in Normal Saline 100 ML IVPB ×2 (00:46→08:11)
[2019-05-04 03:37] VITALS: BP 93/64; PULSE 68; RESP 17; TEMP 36.8; O2SAT 96
[2019-05-04 06:45] LABS: Abs Immature Grans 0.25 k/cumm (0.0-0.09); HCT 38.7 % (40.0-50.0); HGB 12.3 g/dL (13.5-17.5); Mean Corp. HGB Concentration 31.8 g/dL (32.0-36.0); Mean Corpuscular Hemoglobin 28.1 pg (27.0-33.0); Mean Corpuscular Volume 88.6 fL (80-95); Mean Platelet Volume 10.3 fL (8.0-11.0); Platelet Count 300 x1000/uL (130-400); RBC 4.37 m/cumm (4.50-6.00); RBC Distribution Width 14.3 % (11.8-14.1); White Blood Cell Count 12.34 k/cumm (4.4-10.8)
[2019-05-04] MEDS: Enoxaparin 40 MG/0.4 ML SYR SC (06:51)
[2019-05-04 06:55] LABS: Anion Gap 5.7 mmol/L (3-11); BUN 22 mg/dL (7-18); CO2 27.3 mmol/L (21.0-32.0); CREATININE 1.08 mg/dL (0.70-1.30); Calcium 8.6 mg/dL (8.5-10.1); Chloride 107 mmol/L (98-107); Glucose 102 mg/dL (70-100); Magnesium 2.1 mg/dL (1.8-2.4); Potassium 4.9 mmol/L (3.5-5.1); Sodium 140 mmol/L (136-145)
[2019-05-04 07:50] VITALS: BP 112/75; PULSE 74; RESP 17; TEMP 36.8; O2SAT 95
[2019-05-04 07:51] LABS: Absolute Eosinophil Count 0.25 k/cumm (0.0-0.7); Absolute Lymphocyte Count 1.36 k/cumm (1.2-3.4); Absolute Monocyte Count 0.37 k/cumm (0.11-0.7); Absolute Neutrophil Count 10.24 k/cumm (1.2-6.7); Diff Comment Manual Differential; RBC Morphology Normal
[2019-05-04] MEDS: Polyethylene Glycol 3350 17 GM PACKET PO (08:11)
[2019-05-04] MEDS: Cholecalciferol (Vitamin D3) 1,000 UNIT TAB 1000 UNITS PO (08:12)
[2019-05-04] MEDS: Magnesium Oxide 400 MG TAB PO ×2 (08:12→20:04)
[2019-05-04 08:32] LABS: C-Reactive Protein 1.67 mg/dL (0.0-0.3)
[2019-05-04 08:46] LABS: Procalcitonin 0.3 ng/mL
[2019-05-04 11:10] VITALS: BP 101/69; PULSE 78; RESP 18; TEMP 37.1; O2SAT 96
--- NOTE | 2019-05-04 11:30 | PDOC.CMPRO ---
- If Service Date Differs Date of service: 05/04/19 Time of Service: 11:30 Care Management Progress Note S/O: Hollis is lying in bed and is sound asleep. CM meets with his mother who is present in the room. Mom reports that she is noticing a decline in Hollis from yesterday and states he is not as interactive this morning as he has been over the past few days. Mom expressed a wish to change DME companies and was previously provided with contact information for [address] [place] [address] but has yet to connect with them. Mom advises that she provides most of Hollis's care at home with some assistance but states that she does not have any help on Sundays. CM anticipates new home health referral for nursing, PT and OT related to prolonged hospital stay. A: Hollis is a 53 year old male admitted with UTI sepsis. P: Hollis will need new home health nursing, PT and OT following discharge. He will resume services through [facility], and mom is in the process of connecting with a new DME agency for the supply of catheters at time of discharge.
--- NOTE | 2019-05-04 14:36 | PGE_ITS ---
Date of Service Date of service: 05/04/19 Time of Service: 14:36 Assessment and Plan Assessment and plan (1) Sepsis: Status: Acute Assessment and plan: He was febrile on ceftriaxone and levaquin, last fever was 05/01 at which time he was upgraded to meropenem. ID at [facility] recommended Ertapenem and CT scan to assess for abscess at distal end of shunt. If an abscess is present, shunt needs to be removed. Most recent blood cultures negative at 48hrs. Continue IV antibiotics, CT abdomen/pelvis ordered. Qualifiers: Sepsis type: sepsis due to unspecified organism Sepsis acute organ dysfunction status: without acute organ dysfunction Qualified Code(s): A41.9 - Sepsis, unspecified organism (2) Bacteremia: Status: Acute Assessment and plan: With urinary source, initial urine cultures and blood cultures both grew Serratia. As above, repeat blood cultures with no growth to date. (3) Complicated UTI (urinary tract infection): Status: Acute Assessment and plan: In the setting of chronic intermittent catheterizations. Antibiotics as above. Repeat urine culture in the setting of fever showing gram positive ozzy. Dr. House notes that the renal ultrasound findings appear to be chronic. He is not concerned with septic stones. Continue Ertapenem. Follow-up with urology as an outpatient. (4) Community acquired pneumonia: Status: Acute Assessment and plan: Initial chest x-ray showed small infiltrate involving the left lower lobe. Repeat chest x-ray in the setting of a fever shows no acute cardiopulmonary disease. Qualifiers: Laterality: left Lung location: lower lobe of lung Qualified Code(s): J18.1 - Lobar pneumonia, unspecified organism (5) Neurogenic bladder: Status: Acute Assessment and plan: Chronic requiring intermittent catheterizations. (6) Urinary catheter insertion/adjustment/removal: Status: Acute Assessment and plan: His mother is his primary caregiver and straight caths the patient 4 times daily. Continue intermittent catheterization. Urology consulted as above. (7) Diarrhea: Status: Acute Assessment and plan: Resolved. (8) DVT prophylaxis: Status: Acute Assessment and plan: Subcutaneous Lovenox. (9) Discharge planning issues: Status: Acute Assessment and plan: He is a full code. He will be discharged home with his mother, where he also has a caregiver, when he is ready for discharge. This case was discussed with Dr. Munoz who is in agreement. Subjective Subjective Interval history since last seen: Hollis Ambriz's mom states that he is not doing as well today. He is less interactive, he had increased difficulty walking, he is not smiling. She reports that sometimes he has days like this at home. She remains concerned about his shunt. He is eating and drinking and tolerating his diet. His urine is yellow and clear, she continues to catheterize him intermittently. His last BM was yesterday. He has not been sleeping well in the hospital. He has been napping during the day which is typical but he seems more tired to his mom. He has not been coughing. Exam Narrative Exam Narrative: General: Awake, alert, nonverbal. Appears pale. Looking around the room. Allows examination. HEENT: Scar to left posterior occipital area from previous craniotomy. Pupils equal and round, lips are moist, did not open his mouth. Neck: Supple, no JVD. Cardiovascular: Heart has regular rate and rhythm, no murmur appreciated. Respiratory: Respirations even and unlabored, lungs sound clear bilaterally. GI: Normal active bowel sounds throughout, abdomen soft, nondistended, does not appear tender on palpation. Extremities: +1 pedal edema bilaterally. No calf swelling, warmth, erythema or tenderness. Objective Objective Clinical Data: Abnormal lab results 05/04/19 05/04/19 05/04/19 Range/Units 06:23 06:23 06:23 WBC 12.34 H (4.4-10.8) k/cumm RBC 4.37 L (4.50-6.00) m/cumm Hgb 12.3 L (13.5-17.5) g/dL Hct 38.7 L (40.0-50.0) % MCHC 31.8 L (32.0-36.0) g/dL RDW 14.3 H (11.8-14.1) % Absolute Neutrophils 10.24 H (1.2-6.7) k/cumm BUN 22 H (7-18) mg/dL Glucose 102 H (70-100) mg/dL C-Reactive Protein 1.67 H (0.0-0.3) mg/dL Vital Signs Temperature 37.1 C 05/04/19 11:10 Temperature Source Tympanic 05/04/19 11:10 Pulse 78 05/04/19 11:10 Pulse Rhythm Regular 05/04/19 09:10 Pulse 102 H 04/26/19 00:45 Respiratory Rate 18 05/04/19 11:10 Respiratory Effort 05/04/19 09:10 Respiratory Depth Shallow 05/04/19 09:10 Respiratory Pattern Normal 05/04/19 09:10 Blood Pressure 101/69 05/04/19 11:10 Blood Pressure Mean 77 04/26/19 00:45 Blood Pressure Position Sitting 04/25/19 23:54 Pulse Oximetry 96 05/04/19 11:10 Oxygen Delivery Method Room Air 05/04/19 11:10 Oxygen Flow Rate 0 05/04/19 11:10 Pain Level 0 05/04/19 11:10 Comment 05/04/19 09:10 Intake & Output 05/03/19 05/04/19 05/04/19 23:59 11:59 23:59 Intake Total 340 / 780 560 / 800 240 / 800 Output Total 325 / 1125 625 / 1125 500 / 1125 Balance 15 / -345 -65 / -325 -260 / -325 Weight 70 kg Intake: IV 100 / 300 200 / 200 Oral 240 / 480 360 / 600 240 / 600 Output: Urine 325 / 1125 625 / 1125 500 / 1125 Other: Urine Color Yellow Yellow Yellow Urine Appearance Clear Clear Clear Comment 3 scans 340, 148, 221 for avg of 266 Laboratory Results WBC 12.34 k/cumm (4.4-10.8) H 05/04/19 06:23 RBC 4.37 m/cumm (4.50-6.00) L 05/04/19 06:23 Hgb 12.3 g/dL (13.5-17.5) L 05/04/19 06:23 Hct 38.7 % (40.0-50.0) L 05/04/19 06:23 MCV 88.6 fL (80-95) 05/04/19 06:23 MCH 28.1 pg (27.0-33.0) 05/04/19 06:23 MCHC 31.8 g/dL (32.0-36.0) L 05/04/19 06:23 RDW 14.3 % (11.8-14.1) H 05/04/19 06:23 Plt Count 300 x1000/uL (130-400) 05/04/19 06:23 MPV 10.3 fL (8.0-11.0) 05/04/19 06:23 Immature Gran % See Differential 05/04/19 06:23 Neutrophils % 80.0 05/04/19 06:23 Band Neutrophils % 3.0 % 05/04/19 06:23 Lymphocytes % 11.0 05/04/19 06:23 Atypical Lymphs % 2 05/02/19 06:10 Monocytes % 3.0 05/04/19 06:23 Eosinophils % 2.0 05/04/19 06:23 Basophils % 0.0 05/04/19 06:23 Metamyelocytes % 1.0 % 05/04/19 06:23 Myelocytes % 0.0 % 05/03/19 07:05 Promyelocytes % 0 % 05/03/19 07:05 Absolute Neutrophils 10.24 k/cumm (1.2-6.7) H 05/04/19 06:23 Absolute Lymphocytes 1.36 k/cumm (1.2-3.4) 05/04/19 06:23 Absolute Monocytes 0.37 k/cumm (0.11-0.7) 05/04/19 06:23 Absolute Eosinophils 0.25 k/cumm (0.0-0.7) 05/04/19 06:23 Absolute Basophils 0.00 k/cumm (0.0-0.2) 05/04/19 06:23 Differential Comment Manual differential 05/04/19 06:23 RBC Morphology Normal 05/04/19 06:23 Polychromasia Present 05/02/19 06:10 Hypochromasia 1+ 04/30/19 06:40 Sodium 140 mmol/L (136-145) 05/04/19 06:23 Potassium 4.9 mmol/L (3.5-5.1) 05/04/19 06:23 Chloride 107 mmol/L (98-107) 05/04/19 06:23 Carbon Dioxide 27.3 mmol/L (21.0-32.0) 05/04/19 06:23 Anion Gap 5.7 mmol/L (3-11) 05/04/19 06:23 BUN 22 mg/dL (7-18) H 05/04/19 06:23 Creatinine 1.08 mg/dL (0.70-1.30) 05/04/19 06:23 Estimated GFR/1.73 m2 >= 60.00 (mL/min/1.73m2) 05/04/19 06:23 Glucose 102 mg/dL (70-100) H 05/04/19 06:23 Lactate 0.9 mmol/L (0.6-1.4) 04/27/19 06:24 Calcium 8.6 mg/dL (8.5-10.1) 05/04/19 06:23 Magnesium 2.1 mg/dL (1.8-2.4) 05/04/19 06:23 Total Bilirubin 0.8 mg/dL (0.2-1.0) 04/26/19 00:45 AST 15 U/L (15-37) 04/26/19 00:45 ALT 27 U/L (16-63) 04/26/19 00:45 Alkaline Phosphatase 180 U/L (46-116) H 04/26/19 00:45 Troponin I < 0.05 ng/mL (0.00-0.06) 04/26/19 00:45 C-Reactive Protein 1.67 mg/dL (0.0-0.3) H 05/04/19 06:23 Total Protein 6.7 g/dL (6.4-8.2) 04/26/19 00:45 Albumin 2.5 g/dL (3.4-5.0) L 04/26/19 00:45 Procalcitonin 0.3 ng/mL 05/04/19 06:23 Urine Color Yellow (Yellow) 05/01/19 15:19 Urine Clarity Clear (Clear) 05/01/19 15:19 Urine pH 6.5 (5-8) 05/01/19 15:19 Ur Specific [place] 1.025 (1.005-1.025) 05/01/19 15:19 Urine Protein >=300 mg/dL (Negative) H 05/01/19 15:19 Urine Ketones Negative mg/dL (Negative) 05/01/19 15:19 Urine Blood Trace-intact (Negative) H 05/01/19 15:19 Urine Nitrite Negative (Negative) 05/01/19 15:19 Urine Bilirubin Negative (Negative) 05/01/19 15:19 Urine Urobilinogen 0.2 EU/dL (Up TO 0.2) 05/01/19 15:19 Ur Leukocyte Esterase Negative (Negative) 05/01/19 15:19 Urine RBC 10-20 (0-2) H 05/01/19 15:19 Urine WBC >50 HPF (0-5) 05/01/19 15:19 Ur Epithelial Cells Few HPF (Negative) 05/01/19 15:19 Urine Crystals Negative HPF (Negative) 05/01/19 15:19 Urine Bacteria Rare HPF (Negative) 05/01/19 15:19 Urine Casts Negative LPF (Negative) 05/01/19 15:19 Urine Mucus Negative (Negative) 05/01/19 15:19 Urine Other Negative (Negative) 05/01/19 15:19 Ur Culture Indicated? Yes 05/01/19 15:19 Urine Glucose Negative mg/dL (Negative) 05/01/19 15:19
--- NOTE | 2019-05-04 15:52 | DI.CT_ITS ---
EXAM: CT ABDOMEN AND PELVIS W CLINICAL HISTORY: question abscess at distal end [employer] shunt. TECHNIQUE: CT examination of the abdomen and pelvis was performed with bolus infusion of 100 cc of O mnipaque 350. COMPARISON: No exams were available for comparison FINDINGS: There is significant motion artifact noted. There is a ventriculoperitoneal shunt. No associated f luid collections. Liver and spleen are unremarkable in appearance. Gallbladder and bile ducts are C T normal. Abdominal aorta is of normal diameter and no major vascular abnormality is seen. The panc reas is unremarkable in appearance. No abdominal or pelvic adenopathy. No significant abdominal wal l hernia. Kidney is grossly unremarkable except for suspected tiny nonobstructing left renal calculi. No urete ral calculus identified. Urinary bladder has a thickened wall raising the possibility of cystitis. Appendix not specifically visualized but there is no evidence of appendicitis. IMPRESSION: 1. Question nonobstructing left renal calculi. 2. Urinary bladder wall thickening, question cystitis. 3. Moderate stool burden consistent with mild constipation.
[2019-05-04] MEDS: Omnipaque 350 MG/ML 100 ML BTL IJ (15:53)
--- NOTE | 2019-05-04 16:00 | PTTR_ITS ---
Date of service: 05/04/19 PT Notes Inpatient Physical Therapy Treatment Note [facility] Date: 05/04/2019 PRECAUTIONS: Standard. Falls. Non-verbal. Activity as tolerated. SUBJECTIVE: Patient is non-verbal. Caregivers expressed that Mr. Ambriz was tired but slept some and should be okay to go forward with treatment today. OBJECTIVE: Patient is seen laying supine in bed with HOB elevated. Patient also is more breathless today at the conclusion of treatment with compared the last session with rhinorrhea that started about usp of the walk. PAIN: Patient unable to express pain but did not appear in any physical distress. BED MOBILITY/TRANSFERS Rolling L/R: Minimal assist of 2 Supine-sit: Minimal assist of 2 Sit-supine: Minimal assist of 2 Sit-stand: Minimal assist of 2 Stand-sit: Minimal assist of 2 Bed-Chair: Minimal assist of 2 Chair-bed: Minimal assist of 2 THERAPEUTIC ACTIVITY: Patient was able to anticipate displacements made to COG anteropsoteriorly and mediolaterally while in standing with PT and student PT on each side of the patient. GAIT Assistive Device: None Weight bearing: FWB Assist: Minimal assist of 2 Distance: 15'+120 1 Deviation: Significant backward lean of the trunk. Decreased step height, width, length, and navneet and thus overall gait speed. ASSESSMENT: Patient is a 53-year-old male admitted to the med/surg unit with a UTI and sepsis. He is non-verbal and developmentally delayed. His mother and a caregiver provide him with 24 hour care. He appears to be more fatigued today and exhibited shortness of breath after 140? of ambulation. He would continue to benefit from physical therapy services to increase trunk stability, and for general strengthening. He is showing signs that are consistent with his current/admitting diagnoses. PLAN: 1x/day, 7 days/week, 1 week to achieve set goals for PT POC while he is with all TREATMENT CODE/TIME: 30767 x 1 unit and 80950 x 1 unit. Mark Alas, [facility] With a supervision of: Tina Arzola PT, DPT, CLT [facility]
[2019-05-04 19:57] VITALS: BP 111/69; PULSE 68; RESP 18; TEMP 36.4; O2SAT 95
[2019-05-04 20:00] VITALS: O2SAT 95
[2019-05-04 23:20] VITALS: BP 114/70; PULSE 64; RESP 18; TEMP 36.7; O2SAT 95
[2019-05-05 03:30] VITALS: BP 116/64; PULSE 70; RESP 18; TEMP 36.4; O2SAT 95
[2019-05-05 07:23] LABS: Abs Immature Grans 0.19 k/cumm (0.0-0.09); Absolute Basophil Count 0.04 k/cumm (0.0-0.2); Absolute Lymphocyte Count 1.24 k/cumm (1.2-3.4); Basophils % 0.4; Eosinophils % 1.7; HCT 38.4 % (40.0-50.0); HGB 12.2 g/dL (13.5-17.5); Immature Grans % 1.7; Lymphocytes % 11.4; Mean Corp. HGB Concentration 31.8 g/dL (32.0-36.0); Mean Corpuscular Volume 88.1 fL (80-95); Mean Platelet Volume 10.2 fL (8.0-11.0); Monocytes % 4.6; Neutrophils % 80.2; Platelet Count 350 x1000/uL (130-400); RBC 4.36 m/cumm (4.50-6.00); RBC Distribution Width 14.2 % (11.8-14.1); White Blood Cell Count 10.87 k/cumm (4.4-10.8)
[2019-05-05 07:33] LABS: Anion Gap 8.1 mmol/L (3-11); BUN 24 mg/dL (7-18); CO2 28.9 mmol/L (21.0-32.0); CREATININE 1.07 mg/dL (0.70-1.30); Calcium 8.5 mg/dL (8.5-10.1); Chloride 104 mmol/L (98-107); Glucose 101 mg/dL (70-100); Potassium 4.5 mmol/L (3.5-5.1); Sodium 141 mmol/L (136-145)
[2019-05-05 07:40] VITALS: BP 118/75; PULSE 66; RESP 17; TEMP 36.5; O2SAT 98
[2019-05-05 07:55] LABS: Absolute Eosinophil Count 0.18 k/cumm (0.0-0.7); Absolute Neutrophil Count 8.72 k/cumm (1.2-6.7)
[2019-05-05] MEDS: Bisacodyl 10 MG SUPP PR (08:59)
[2019-05-05] MEDS: Cholecalciferol (Vitamin D3) 1,000 UNIT TAB 1000 UNITS PO (08:59)
[2019-05-05] MEDS: Magnesium Oxide 400 MG TAB PO ×2 (08:59→19:47)
[2019-05-05] MEDS: Polyethylene Glycol 3350 17 GM PACKET PO (09:00)
--- NOTE | 2019-05-05 10:15 | PT.INNT ---
Date of service: 05/05/19 Time of Service: 10:16 PT Notes 05/05/19 Attempted x2 to work with pt and family did not want him to complete his PT due to just having a suppository.
[2019-05-05 15:40] VITALS: BP 111/71; PULSE 93; RESP 19; TEMP 36.4; O2SAT 96
--- NOTE | 2019-05-05 17:21 | CMPROGNOTE_ITS ---
- If Service Date Differs Date of service: 05/05/19 Time of Service: 17:21 Care Management Progress Note S/O: Hollis remains acute at this time plan will be for him to be discharged home on Tuesday on IV antibiotics which he will need an additional week of. faxed [facility] new Abx orders. Anticipate the Abx could be delivered for his daily dose on Tuesday. Hollis will have new home health services. A: Hollis is a 53 year old male admitted with UTI sepsis. P: Hollis will need new home health nursing, PT and OT following discharge. He will have home infusions through [facility]. He will resume services through [facility], and mom is in the process of connecting with a new [facility] agency for the supply of catheters at time of discharge. Anticipate he will need ambulance transfer home.
[2019-05-05 19:09] VITALS: BP 108/70; PULSE 89; RESP 18; TEMP 37.2; O2SAT 95
[2019-05-05 23:26] VITALS: BP 108/70; PULSE 85; RESP 18; TEMP 36.8; O2SAT 97
[2019-05-06 04:28] VITALS: BP 120/75; PULSE 73; RESP 18; TEMP 36.7; O2SAT 95
[2019-05-06 07:30] VITALS: BP 113/75; PULSE 80; RESP 17; TEMP 36.5; O2SAT 95
[2019-05-06 07:35] LABS: Abs Immature Grans 0.16 k/cumm (0.0-0.09); Absolute Eosinophil Count 0.37 k/cumm (0.0-0.7); Absolute Lymphocyte Count 1.43 k/cumm (1.2-3.4); Absolute Monocyte Count 0.67 k/cumm (0.11-0.7); Absolute Neutrophil Count 8.23 k/cumm (1.2-6.7); Basophils % 0.5; Eosinophils % 3.4; HCT 39.9 % (40.0-50.0); HGB 12.6 g/dL (13.5-17.5); Immature Grans % 1.5; Lymphocytes % 13.1; Mean Corp. HGB Concentration 31.6 g/dL (32.0-36.0); Mean Corpuscular Hemoglobin 27.9 pg (27.0-33.0); Mean Corpuscular Volume 88.3 fL (80-95); Mean Platelet Volume 10.8 fL (8.0-11.0); Monocytes % 6.1; Neutrophils % 75.4; Platelet Count 298 x1000/uL (130-400); RBC 4.52 m/cumm (4.50-6.00); RBC Distribution Width 14.4 % (11.8-14.1); White Blood Cell Count 10.92 k/cumm (4.4-10.8)
[2019-05-06 07:38] LABS: Absolute Basophil Count 0.05 k/cumm (0.0-0.2); Anion Gap 8.8 mmol/L (3-11); BUN 25 mg/dL (7-18); C-Reactive Protein 0.71 mg/dL (0.0-0.3); CO2 27.2 mmol/L (21.0-32.0); Calcium 8.7 mg/dL (8.5-10.1); Chloride 104 mmol/L (98-107); Glucose 93 mg/dL (70-100); Magnesium 2.2 mg/dL (1.8-2.4); Sodium 140 mmol/L (136-145)
[2019-05-06 08:13] LABS: Procalcitonin 0.2 ng/mL
--- NOTE | 2019-05-06 09:05 | PDOC.CMPRO ---
- If Service Date Differs Date of service: 05/06/19 Time of Service: 09:05 Care Management Progress Note S/O: Hollis remains acute at this time plan will be for him to be discharged home on Tuesday on IV antibiotics which he will need an additional week of.CM faxed [facility] new Abx orders. He remains in need of a midline which was unable to placed over the weekend by anaesthesia after two failed attempts Mom refused any additional attempts that day. Anticipate that the line will be placed on Tuesday. Anticipate the Abx could be delivered for his daily dose on Tuesday. Hollis will have new home health services. Kaitlin has not been able to connect with [facility] medical she did receive the samples however has not been able to talk to them. CM will follow up with service on Tuesday when service is open. A: Hollis is a 53 year old male admitted with UTI sepsis. P: Hollis will need new home health nursing, PT and OT following discharge. He will have home infusions through [facility]. He will resume services through [facility], and mom is in the process of connecting with a new [facility] agency for the supply of catheters at time of discharge. Anticipate he will need ambulance transfer home.
--- NOTE | 2019-05-06 10:19 | PT.INTREAT ---
Date of service: 05/06/19 Time of Service: 10:00 PT Notes Inpatient Physical Therapy Treatment Note [facility] Date: 05/06/19 PRECAUTIONS: Non verbal and standard SUBJECTIVE: [] OBJECTIVE: [] PAIN: [] BED MOBILITY/TRANSFERS Rolling L/R: [] Supine-sit: Min-modx2 Sit-supine: Min-modx2 Sit-stand: Minx2 Stand-sit: Minx2 Bed-Chair: [] Chair-bed: Minx2 GAIT Assistive Device: No Device Weight bearing: FWB Assist: Minx2 with follow behind with w/c Distance: 120ft Deviation: Pt did lean back at times and also feet crossing over with his gait at times. Pt did require one seated rest. ASSESSMENT: Pt tolerated today's session fairly well. Pt was getting noticeably tire at the end of his walk. PLAN: Pt has plans of leaving tomorrow. TREATMENT CODE/TIME: 10-10:20 TA
[2019-05-06] MEDS: Cholecalciferol (Vitamin D3) 1,000 UNIT TAB 1000 UNITS PO (10:25)
[2019-05-06] MEDS: Magnesium Oxide 400 MG TAB PO ×2 (10:25→21:03)
--- NOTE | 2019-05-06 10:45 | W.PM.PROGNOT ---
Date of Service Date of service: 05/06/19 Time of Service: 10:45 Assessment and Plan Assessment and plan (1) Sepsis: Start date: 05/06/19 Start time: 10:48 Status: Acute Assessment and plan: Resolved, original blood cultures grew serratia. Repeat blood cultures no growth. He remains afebrile since 05/01. Ertapenem continued, midline being inserted for home infusion. DC Tuesday on home antibiotics. Qualifiers: Sepsis type: sepsis due to unspecified organism Sepsis acute organ dysfunction status: without acute organ dysfunction Qualified Code(s): A41.9 - Sepsis, unspecified organism (2) Complicated UTI (urinary tract infection): Start date: 05/06/19 Start time: 10:49 Status: Acute Assessment and plan: concurrent UTI with sepsis Antibiotics upgraded to meropenem based on ID recommendations as above. Urology consulted, Dr. House was able to review his previous imaging studies and culture results. Dr. House notes that the renal ultrasound findings appear to be chronic. He is not concerned with septic stones. Continue meropenem. Follow-up with urology as an outpatient. (3) Community acquired pneumonia: Start date: 05/06/19 Start time: 10:49 Status: Acute Assessment and plan: Improving. Not requiring oxygen Continue to monitor. Repeat CXR with no acute pulmonary disease Qualifiers: Laterality: left Lung location: lower lobe of lung Qualified Code(s): J18.1 - Lobar pneumonia, unspecified organism (4) DVT prophylaxis: Start date: 05/06/19 Start time: 10:49 Status: Acute Assessment and plan: Enoxaparin (5) Urinary catheter insertion/adjustment/removal: Start date: 05/06/19 Start time: 10:49 Status: Acute Assessment and plan: Mother straight caths patient QID every 4 hours Above findings discussed with Dr. Busby who is in agreement. Subjective Subjective Patient reports: no new complaints Interval history since last seen: Improving. Afebrile, NGTD Exam Narrative Exam Narrative: General: Awake, alert, nonverbal. Appears pale. Looking around the room. Allows examination. HEENT: Scar to left posterior occipital area from previous craniotomy. Pupils equal and round, lips are moist, did not open his mouth. Neck: Supple, no JVD. Cardiovascular: Heart has regular rate and rhythm, no murmur appreciated. Respiratory: Respirations even and unlabored, lungs sound clear bilaterally. GI: Normal active bowel sounds throughout, abdomen soft, nondistended, does not appear tender on palpation. Extremities: +1 pedal edema bilaterally. No calf swelling, warmth, erythema or tenderness. Upper extremities bilaterally are with petechia from midline procedure yesterday Const General: cooperative and no acute distress Nutritional Appearance: average body habitus Orientation: alert, awake and not oriented x3 Limitations: other limitations (cognitively impaired) [facility] Head: other (left posterior occipital scar from prior craniotomy) Ears: EAC abnormal excessive cerumen and hearing grossly impaired General nose exam: external nose normal, nares normal and nasal discharge Mouth: other (refused to open mouth for oral exam) Eyes General: appearance normal, both eyes and all related structures Alignment and Position: alignment normal Periorbital: periorbital findings normal Eyelids: eyelids normal Conjunctivae: conjunctivae normal Sclera: sclerae normal Cornea: corneas normal Pupils: PERRL Neck Neck: normal visual inspection, full ROM, no lymphadenopathy, no meningeal signs, trachea midline and no JVD Carotids: normal carotid upstroke Lymphatic: no lymphadenopathy noted Resp Effort & Inspection: normal respiratory effort Auscultation: diminished lung sounds bilaterally in the upper lung kaye (at both bases) Cardio Jugular venous pressure: no JVD Palpation: normal PMI Rate: regular rate Rhythm: regular rhythm Heart Sounds: S1 normal, S2 normal, normal, physiologic split S2, no gallops, no murmurs and no rubs Pulses: normal peripheral pulses GI Inspection: normal to inspection Palpation: soft and no hepatosplenomegaly Percussion: normal to percussion Auscultation: normal bowel sounds Skin General skin exam: no rashes or lesions noted, elasticity normal and turgor normal Neuro General: alert, awake, not oriented x3, moves all extremities and no focal motor deficits Cognition: abnormal cognition Speech: other (absent speech) Extrem General: normal capillary refill and no clubbing, cyanosis or edema Objective Objective Clinical Data: Abnormal lab results 05/06/19 05/06/19 Range/Units 06:30 06:30 WBC 10.92 H (4.4-10.8) k/cumm Hgb 12.6 L (13.5-17.5) g/dL Hct 39.9 L (40.0-50.0) % MCHC 31.6 L (32.0-36.0) g/dL RDW 14.4 H (11.8-14.1) % Absolute Neutrophils 8.23 H (1.2-6.7) k/cumm BUN 25 H (7-18) mg/dL C-Reactive Protein 0.71 H (0.0-0.3) mg/dL Vital Signs Temperature 36.5 C 05/06/19 07:30 Temperature Source Tympanic 05/06/19 07:30 Pulse 80 05/06/19 07:30 Pulse Rhythm Regular 05/06/19 01:00 Pulse 102 H 04/26/19 00:45 Respiratory Rate 17 05/06/19 07:30 Respiratory Effort Non-Labored 05/06/19 01:00 Respiratory Depth Normal 05/06/19 01:00 Respiratory Pattern Normal 05/06/19 01:00 Blood Pressure 113/75 05/06/19 07:30 Blood Pressure Mean 77 04/26/19 00:45 Blood Pressure Position Sitting 04/25/19 23:54 Pulse Oximetry 95 05/06/19 07:30 Oxygen Delivery Method Room Air 05/06/19 07:30 Oxygen Flow Rate 0 05/06/19 07:30 Pain Level 0 05/06/19 07:30 Comment 05/04/19 09:10 Intake & Output 05/05/19 05/05/19 05/06/19 11:59 23:59 11:59 Intake Total 590 / 940 350 / 940 Output Total 1000 / 2195 1195 / 2195 250 / 250 Balance -410 / -1255 -845 / -1255 -250 / -250 Weight 69.3 kg Intake: IV 100 / 200 100 / 200 Oral 490 / 740 250 / 740 Output: Urine 1000 / 2195 1195 / 2195 250 / 250 Other: Urine Color Yellow Yellow Yellow Urine Appearance Clear Clear Clear Comment Straight cath 600 Straight cath 825 done by Mom Stool Size Small Moderate Large Stool Characteristics Soft Soft Soft Brown Brown Brown Laboratory Results WBC 10.92 k/cumm (4.4-10.8) H 05/06/19 06:30 RBC 4.52 m/cumm (4.50-6.00) 05/06/19 06:30 Hgb 12.6 g/dL (13.5-17.5) L 05/06/19 06:30 Hct 39.9 % (40.0-50.0) L 05/06/19 06:30 MCV 88.3 fL (80-95) 05/06/19 06:30 MCH 27.9 pg (27.0-33.0) 05/06/19 06:30 MCHC 31.6 g/dL (32.0-36.0) L 05/06/19 06:30 RDW 14.4 % (11.8-14.1) H 05/06/19 06:30 Plt Count 298 x1000/uL (130-400) 05/06/19 06:30 MPV 10.8 fL (8.0-11.0) 05/06/19 06:30 Immature Gran % 1.5 05/06/19 06:30 Neutrophils % 75.4 05/06/19 06:30 Band Neutrophils % 3.0 % 05/04/19 06:23 Lymphocytes % 13.1 05/06/19 06:30 Atypical Lymphs % 2 05/02/19 06:10 Monocytes % 6.1 05/06/19 06:30 Eosinophils % 3.4 05/06/19 06:30 Basophils % 0.5 05/06/19 06:30 Metamyelocytes % 1.0 % 05/04/19 06:23 Myelocytes % 0.0 % 05/03/19 07:05 Promyelocytes % 0 % 05/03/19 07:05 Absolute Neutrophils 8.23 k/cumm (1.2-6.7) H 05/06/19 06:30 Absolute Lymphocytes 1.43 k/cumm (1.2-3.4) 05/06/19 06:30 Absolute Monocytes 0.67 k/cumm (0.11-0.7) 05/06/19 06:30 Absolute Eosinophils 0.37 k/cumm (0.0-0.7) 05/06/19 06:30 Absolute Basophils 0.05 k/cumm (0.0-0.2) 05/06/19 06:30 Differential Comment Manual differential 05/04/19 06:23 RBC Morphology Normal 05/04/19 06:23 Polychromasia Present 05/02/19 06:10 Hypochromasia 1+ 04/30/19 06:40 Sodium 140 mmol/L (136-145) 05/06/19 06:30 Potassium 5.0 mmol/L (3.5-5.1) 05/06/19 06:30 Chloride 104 mmol/L (98-107) 05/06/19 06:30 Carbon Dioxide 27.2 mmol/L (21.0-32.0) 05/06/19 06:30 Anion Gap 8.8 mmol/L (3-11) 05/06/19 06:30 BUN 25 mg/dL (7-18) H 05/06/19 06:30 Creatinine 1.10 mg/dL (0.70-1.30) 05/06/19 06:30 Estimated GFR/1.73 m2 >= 60.00 (mL/min/1.73m2) 05/06/19 06:30 Glucose 93 mg/dL (70-100) 05/06/19 06:30 Lactate 0.9 mmol/L (0.6-1.4) 04/27/19 06:24 Calcium 8.7 mg/dL (8.5-10.1) 05/06/19 06:30 Magnesium 2.2 mg/dL (1.8-2.4) 05/06/19 06:30 Total Bilirubin 0.8 mg/dL (0.2-1.0) 04/26/19 00:45 AST 15 U/L (15-37) 04/26/19 00:45 ALT 27 U/L (16-63) 04/26/19 00:45 Alkaline Phosphatase 180 U/L (46-116) H 04/26/19 00:45 Troponin I < 0.05 ng/mL (0.00-0.06) 04/26/19 00:45 C-Reactive Protein 0.71 mg/dL (0.0-0.3) H 05/06/19 06:30 Total Protein 6.7 g/dL (6.4-8.2) 04/26/19 00:45 Albumin 2.5 g/dL (3.4-5.0) L 04/26/19 00:45 Procalcitonin 0.2 ng/mL 05/06/19 06:30 Urine Color Yellow (Yellow) 05/01/19 15:19 Urine Clarity Clear (Clear) 05/01/19 15:19 Urine pH 6.5 (5-8) 05/01/19 15:19 Ur Specific [place] 1.025 (1.005-1.025) 05/01/19 15:19 Urine Protein >=300 mg/dL (Negative) H 05/01/19 15:19 Urine Ketones Negative mg/dL (Negative) 05/01/19 15:19 Urine Blood Trace-intact (Negative) H 05/01/19 15:19 Urine Nitrite Negative (Negative) 05/01/19 15:19 Urine Bilirubin Negative (Negative) 05/01/19 15:19 Urine Urobilinogen 0.2 EU/dL (Up TO 0.2) 05/01/19 15:19 Ur Leukocyte Esterase Negative (Negative) 05/01/19 15:19 Urine RBC 10-20 (0-2) H 05/01/19 15:19 Urine WBC >50 HPF (0-5) 05/01/19 15:19 Ur Epithelial Cells Few HPF (Negative) 05/01/19 15:19 Urine Crystals Negative HPF (Negative) 05/01/19 15:19 Urine Bacteria Rare HPF (Negative) 05/01/19 15:19 Urine Casts Negative LPF (Negative) 05/01/19 15:19 Urine Mucus Negative (Negative) 05/01/19 15:19 Urine Other Negative (Negative) 05/01/19 15:19 Ur Culture Indicated? Yes 05/01/19 15:19 Urine Glucose Negative mg/dL (Negative) 05/01/19 15:19
[2019-05-06 11:10] VITALS: BP 112/68; PULSE 85; RESP 17; TEMP 36.6; O2SAT 96
[2019-05-06 16:03] VITALS: BP 118/73; PULSE 80; RESP 18; TEMP 36.6; O2SAT 94
[2019-05-06 20:34] VITALS: BP 130/68; PULSE 80; RESP 18; TEMP 37; O2SAT 95
[2019-05-07 04:14] VITALS: BP 132/71; PULSE 81; RESP 18; TEMP 36.8; O2SAT 96
[2019-05-07 07:25] LABS: Abs Immature Grans 0.12 k/cumm (0.0-0.09); Absolute Basophil Count 0.05 k/cumm (0.0-0.2); Absolute Eosinophil Count 0.21 k/cumm (0.0-0.7); Absolute Lymphocyte Count 1.24 k/cumm (1.2-3.4); Absolute Monocyte Count 0.51 k/cumm (0.11-0.7); Absolute Neutrophil Count 7.94 k/cumm (1.2-6.7); Basophils % 0.5; Eosinophils % 2.1; HGB 12.7 g/dL (13.5-17.5); Immature Grans % 1.2; Lymphocytes % 12.3; Mean Corp. HGB Concentration 31.8 g/dL (32.0-36.0); Mean Corpuscular Hemoglobin 28.2 pg (27.0-33.0); Mean Corpuscular Volume 88.7 fL (80-95); Mean Platelet Volume 10.3 fL (8.0-11.0); Monocytes % 5.1; Neutrophils % 78.8; Platelet Count 394 x1000/uL (130-400); RBC 4.51 m/cumm (4.50-6.00); RBC Distribution Width 14.3 % (11.8-14.1); White Blood Cell Count 10.07 k/cumm (4.4-10.8)
[2019-05-07 07:30] VITALS: BP 108/70; PULSE 67; RESP 14; TEMP 36.6; O2SAT 97
[2019-05-07 07:34] LABS: Anion Gap 6.4 mmol/L (3-11); BUN 25 mg/dL (7-18); CO2 30.6 mmol/L (21.0-32.0); CREATININE 1.18 mg/dL (0.70-1.30); Calcium 8.8 mg/dL (8.5-10.1); Chloride 103 mmol/L (98-107); Glucose 93 mg/dL (70-100); Magnesium 2.2 mg/dL (1.8-2.4); Potassium 4.6 mmol/L (3.5-5.1); Sodium 140 mmol/L (136-145)
[2019-05-07] MEDS: Bisacodyl 10 MG SUPP PR (08:58)
[2019-05-07] MEDS: Magnesium Oxide 400 MG TAB PO (08:59)
[2019-05-07] MEDS: Cholecalciferol (Vitamin D3) 1,000 UNIT TAB 1000 UNITS PO (08:59)
[2019-05-07] MEDS: Polyethylene Glycol 3350 17 GM PACKET PO (08:59)
--- NOTE | 2019-05-07 11:08 | DSE_ITS ---
Date of service: 05/07/19 Time of Service: 11:09 DS: Diagnosis Discharge Diagnosis (1) Sepsis: Start date: 05/07/19 Start time: 11:09 Status: Acute Asessment and Plan: Grew serratia in Urine and in blood cultures. Started on rocephin 1 gm and levaquin. After 48 hours fever continued. Switched to meropenem. After 48 hours afebrile and negative blood cultures switched back to rocephin 2 gm and levaquin, however he did spike a fever, [facility] [place] and they recommended meropenem. He has been afebrile since 05/01, 2nd repeat blood cultures were negative. Due to serratia growth in 1 set of blood cultures Echo was done with EF-60% no , Systolic dysfunction and no diastolic dysfunction. Midline placed and patient will be going home with an 8 day course of Invanz as he was transitioned 3 days ago, afebrile and CRP trending down. Renal u/s negative for obstruction. Dr. House consulted and feels nephrolithasis is chronic, came up with a system for [facility] [place] who straight caths patient every 4 hours. He will need follow up as needed for outpatient. (2) Complicated UTI (urinary tract infection): Start date: 05/07/19 Start time: 11:14 Status: Acute Asessment and Plan: See above (3) Community acquired pneumonia: Start date: 05/07/19 Start time: 11:14 Status: Acute Asessment and Plan: Found to have pneumonia on xray. Treated with antibiotics of levquin and rocephin. Upon admission procalcitonin was 20.7 by todays labs procalcitonin is 0.2. Recommend repeat CXR in 6 weeks. Afebrile, no cough, good appetite (4) DVT prophylaxis: Status: Acute (5) Urinary catheter insertion/adjustment/removal: Status: Acute Discharge Plan Disposition Patient Disposition: HOME Condition: Improving Discharge Details Chief Complaint: Urinary Clinical Impression: Acute UTI, Sepsis Reason For Visit: UTI,SEPSIS Admit Date/Time: 04/26/19 02:20 Admit Provider: Adan Ceron Attending Provider: Adan Ceron Primary Care Provider: Dimas Lau ED Provider: Rupesh Oviedo [facility] Course Hospital Course: Mr. Ambriz is a 53 y.o Male with significant history of neurofibromatosis, men ingimomas, s/p crainotomy, developmental delay and urinary retention. He was admitted on 04/26 for sepsis from UTI, CAP. Urine culture in ED found to be positive for serratia in Urine and blood cultur es grew serratia. Started on rocephin 1 gm and levaquin. After 48 hours fever continued. Switched to meropenem. After 48 hours afebrile and negative blood cultures switched back to rocephin 2 gm and levaquin, however he did spike a fever, [facility] was contacted and they recommended meropenem. He has been afebrile since 05/01, 2nd repeat blood cultures were negative. Due to serratia growth in 1 set of blood cultures Echo was done with EF-60% no , Systolic dysfunction and no diastolic dysfunction. Midline placed and patient will be going home with an 8 day course of Invanz as he was transitioned 3 days ago, afebrile and CRP trending down. There was concern for infected [employer] shunt. CT scan was negative for infection. Explained to mother if antibioitcs finish and patient begins to spike fever, return immediately at this time, patient is weaker but afebrile with normal wbc. Renal u/s negative for obstruction. Dr. House consulted and feels nephrolithasis is chronic, came up with a system for mom who straight caths patient every 4 hours. He will need follow up as needed for outpatient. He was found to have CAP by xray on admission. He was requiring oxygen, at this time oxygen is no longer needed. Treated with antibiotics of levquin and rocephin. Upon admission procalcitonin was 20.7 by todays labs procalcitonin is 0.2. Recommend repeat CXR in 6 weeks. Afebrile, no cough, good appetite. Per mother patient is week but improving. We will set up RN services, PT/OT for home. He is being transferred home today. CRP, BMP and CBC will need to be done in 1 week. Home Meds and New Rx's Prescriptions: New ertapenem [Invanz] 1 gram recon soln 1 gm IV DAILY Qty: 10 RF: 0 magnesium oxide 400 mg (241.3 mg magnesium) Tablet 400 mg PO BID Qty: 60 RF: 0 clotrimazole 1 % Cream 1 applic topical TID PRN PRN (Reason: rash) Qty: 60 RF: 0 Bio-K plus 50 billion cell Capsule,Delayed Release(Dr/Ec) 1 cap PO DAILY Qty: 30 RF: 0 Continued polyethylene glycol 3350 [GlycoLax] 527 GM powder 17 g PO DAILY RF: 0 bisacodyl [Dulcolax (bisacodyl)] 10 mg Suppository 10 mg ME DAILY RF: 0 lorazepam 1 mg Tablet 1 mg PO TID PRNRF: 0 cholecalciferol (vitamin D3) [Vitamin D3] 1,000 unit Capsule 1 unit PO DAILY RF: 0 Discontinued ciprofloxacin HCl 250 mg Tablet 250 mg PO BID RF: 0 Discharge Instructions Instructions: Probiotic (By mouth), Urinary Tract Infection in Men (GEN), Sepsis (GEN), Community Acquired Pneumonia (GEN), Catheter-associated Urinary Tract Infection (GEN) Additional Instructions: Take probiotic daily for at least one month following antibiotic completetion. If antibiotics end and Gold starts to spike fever, return immediately. Continue PT/Ot at home A cough is normal for at least 6 weeks following pneumonia, recommend repeat CXR in 6 weeks. Repeat lab work in 7 days. Stand Alone Forms: Nursing Discharge Form Referrals: Dimas Lau MD [Primary Care Provider] - 05/14/19 1:30 pm Activity:: Activity as Tolerated Equipment/Supplies:: No Equipment Needed Diet:: As Tolerated Discharge Orders Discharge Orders: Discharge Order (Routine); Ordered 05/07/19 Ordered By: Daina Martino Other Ambulatory Orders: Basic Metabolic Panel (Routine) Location: None Selected Ordered By: Daina Martino Complete Blood Count w/Diff (Routine) Location: None Selected Ordered By: Daina Martino C-Reactive Protein (Routine) Location: None Selected Ordered By: Daina Martino DS: Summary Status at Discharge Functional status at discharge: wheelchair bound Overall status at discharge: patient is progressing back to baseline Mental Status: other Speech and Movement: other Mood: congruent mood and other Affect: normal affect Time Spent with Patient providing and/or coordinating discharge services: Greater than 30 minutes Exam Narrative Exam Narrative: General: Awake, alert, nonverbal. Appears pale. Sitting up in chair. Allows examination. HEENT: Scar to left posterior occipital area from previous craniotomy. Pupils equal and round, lips are moist, did not open his mouth. Neck: Supple, no JVD. Cardiovascular: Heart has regular rate and rhythm, no murmur appreciated. Respiratory: Respirations even and unlabored, lungs sound clear bilaterally. GI: Normal active bowel sounds throughout, abdomen soft, nondistended, does not appear tender on palpation. Extremities: +1 pedal edema bilaterally. No calf swelling, warmth, erythema or tenderness. Upper extremities bilaterally are with petechia from midline procedure yesterday HENMT Head: other (left posterior occipital scar from prior craniotomy) Ears: EAC abnormal excessive cerumen and hearing grossly impaired General nose exam: external nose normal, nares normal and nasal discharge Mouth: other (refused to open mouth for oral exam) Eyes General: appearance normal, both eyes and all related structures Alignment and Position: alignment normal Periorbital: periorbital findings normal Eyelids: eyelids normal Conjunctivae: conjunctivae normal Sclera: sclerae normal Cornea: corneas normal Pupils: PERRL Neck Neck: normal visual inspection, full ROM, no lymphadenopathy, no meningeal signs, trachea midline and no JVD Carotids: normal carotid upstroke Lymphatic: no lymphadenopathy noted Resp Effort & Inspection: normal respiratory effort Auscultation: diminished lung sounds bilaterally in the upper lung kaye (at both bases) Cardio Jugular venous pressure: no JVD Palpation: normal PMI Rate: regular rate Rhythm: regular rhythm Heart Sounds: S1 normal, S2 normal, normal, physiologic split S2, no gallops, no murmurs and no rubs Pulses: normal peripheral pulses GI Inspection: normal to inspection Palpation: soft and no hepatosplenomegaly Percussion: normal to percussion Auscultation: normal bowel sounds Skin General skin exam: no rashes or lesions noted, elasticity normal and turgor normal Neuro General: alert, awake, not oriented x3, moves all extremities and no focal motor deficits Cognition: abnormal cognition Speech: other (absent speech) Extrem General: normal capillary refill and no clubbing, cyanosis or edema Psych Mental Status: other Speech and Movement: other Mood: congruent mood and other Affect: normal affect DS: Data Vitals/I&O Vitals and I&O: Vital Signs Temperature 36.6 C 05/07/19 07:30 Temperature Source Tympanic 05/07/19 07:30 Pulse 67 05/07/19 07:30 Pulse Rhythm Regular 05/07/19 00:35 Pulse 102 H 04/26/19 00:45 Respiratory Rate 14 05/07/19 07:30 Respiratory Effort Non-Labored 05/07/19 00:35 Respiratory Depth Normal 05/07/19 00:35 Respiratory Pattern Normal 05/07/19 00:35 Blood Pressure 108/70 05/07/19 07:30 Blood Pressure Mean 77 04/26/19 00:45 Blood Pressure Position Sitting 04/25/19 23:54 Pulse Oximetry 97 05/07/19 07:30 Oxygen Delivery Method Room Air 05/07/19 07:30 Oxygen Flow Rate 0 05/07/19 07:30 Pain Level 0 05/07/19 07:30 Comment 05/04/19 09:10 Intake & Output 05/06/19 05/06/19 05/07/19 11:59 23:59 11:59 Intake Total 250 / 1050 800 / 1050 100 / 100 Output Total 250 / 960 710 / 960 700 / 700 Balance 0 / 90 90 / 90 -600 / -600 Weight 69.3 kg 67.9 kg Intake: IV 200 / 200 Oral 250 / 850 600 / 850 100 / 100 Output: Urine 250 / 960 710 / 960 700 / 700 Other: Urine Color Yellow Light Paulette Yellow Urine Appearance Clear Clear Clear Comment will straight cath the patient mother told me jesus alberto would straight cath him , she told me she was used to doing it and did not want assistance at this time, she cathed him for 300 paulette Stool Size Large Stool Characteristics Soft Brown Data Completed and Pending Completed studies during hospitalization [Text1]: Exam(s) a RAD:XR portable chest AP EXAM: XR PORTABLE CHEST AP INDICATION: fever, SOB. COMPARISON: No exams were available for comparison TECHNIQUE: 2D digital imaging was performed. FINDINGS: Suboptimal inflation of the lungs is noted. There is an apparent small region o f infiltration involving the left lower lobe. There is no evidence of a pneumothorax. The heart is within normal limits in size. IMPRESSION: Small small area of infiltration involving the left lower lobe. Exam(s) PROCEDURE INFORMATION: Exam: XR Chest, 1 View Exam date and time: 04/26/2019 12:08 AM Clinical history: 53 years old, male; Fever and shortness of breath TECHNIQUE: Imaging protocol: XR of the chest Views: 1 view. COMPARISON: No relevant prior studies available. FINDINGS: Lungs: Lung volumes are low. Small amount of airspace disease in the left base. Pleural space: Unremarkable. No evidence of pneumothorax. Heart/Mediastinum: Unremarkable. Heart size within normal limits for technique. Bones/joints: Unremarkable. IMPRESSION: Small left base infiltrate. Exam(s) a US:US renal EXAM: US RENAL CLINICAL HISTORY: urosepsis, r/o pyelonephritis. TECHNIQUE: Ultrasound performed using standard protocol. COMPARISON: US renal from 12/12/2018 FINDINGS: The left kidney measures 10.5 x 4 x 4.2 cm. The right kidney measures 9.4 x 3.8 x 4.7 cm. Multiple echogenic foci are identified in the right kidney, the largest measures 3 mm in diameter. The findings are consistent with nephrolithiasis. There is a question regarding mild dilatation of the collecting system in the left kidney and the possibility of mild hydronephrosis cannot be excluded. The prevoid bladder contains 30 cc. The patient was unable to void at the time of this examination. The right ureteral jet is visualized. The left ureteral jet is not seen. IMPRESSION: Findings consistent with right nephrolithiasis. Question mild left hydronephrosis. Date of study: 04/30/2019 Transthoracic Echocardiography M-mode, complete 2D, complete spectral Doppler, and color Doppler *STUDY CONCLUSIONS* Summary: 1. Left ventricle: The cavity size was normal. Systolic function was normal. The estimated ejection fraction was 60-65%. Diastolic parameters were normal. There was no evidence of elevated ventricular filling pressure by Doppler parameters. 2. Aortic valve: There was mild to moderate regurgitation. 3. Right ventricle: The cavity size was normal. Wall thickness was normal. Systolic function was normal. 4. Pulmonary arteries: Systolic pressure could not be accurately estimated. 5. Inferior vena cava: Poorly visualized. a RAD:XR chest 2V PA & lateral EXAM: XR CHEST 2V PA LATERAL INDICATION: repeat, fever. COMPARISON: XR PORTABLE CHEST AP from 04/26/2019 TECHNIQUE: 2D digital imaging was performed. FINDINGS: An upright AP and lateral examination was obtained. There is elevation of the right hemidiaphragm. The lungs are free of gross infiltrate. The heart is top limits of normal in size. A ventriculoperitoneal shunt is unchanged in position. IMPRESSION: No evidence of acute cardiopulmonary disease. 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 TECHNIQUE: CT examination of the abdomen and pelvis was performed with bolus infusion of 100 cc of Omnipaque 350. COMPARISON: No exams were available for comparison FINDINGS: There is significant motion artifact noted. There is a ventriculoperitoneal shunt. No associated fluid collections. Liver and spleen are unremarkable in appearance. Gallbladder and bile ducts are CT normal. Abdominal aorta is of normal diameter and no major vascular abnormality is seen. The pancreas is unremarkable in appearance. No abdominal or pelvic adenopathy. No significant abdominal wall hernia. Kidney is grossly unremarkable except for suspected tiny nonobstructing left renal calculi. No ureteral calculus identified. Urinary bladder has a thick ened wall raising the possibility of cystitis. Appendix not specifically visualized but there is no evidence of appendicitis. IMPRESSION: 1. Question nonobstructing left renal calculi. 2. Urinary bladder wall thickening, question cystitis. 3. Moderate stool burden consistent with mild constipation. Labs on day of discharge: Labs from last 24 hours 05/07/19 05/07/19 06:25 06:25 WBC 10.07 RBC 4.51 Hgb 12.7 L Hct 40.0 MCV 88.7 MCH 28.2 MCHC 31.8 L RDW 14.3 H Plt Count 394 MPV 10.3 Immature Gran % 1.2 Neutrophils % 78.8 Lymphocytes % 12.3 Monocytes % 5.1 Eosinophils % 2.1 Basophils % 0.5 Absolute Neutrophils 7.94 H Absolute Lymphocytes 1.24 Absolute Monocytes 0.51 Absolute Eosinophils 0.21 Absolute Basophils 0.05 Sodium 140 Potassium 4.6 Chloride 103 Carbon Dioxide 30.6 Anion Gap 6.4 BUN 25 H Creatinine 1.18 Estimated GFR/1.73 m2 >= 60.00 Glucose 93 Calcium 8.8 Magnesium 2.2 [facility] Medical History Meningioma (Acute) Neurofibromatosis 2 (Acute) Neurogenic bladder (Acute) Urinary retention (Acute) Surgical History S/P craniotomy (Acute) 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
[2019-05-07 11:45] VITALS: BP 108/70; PULSE 83; RESP 14; TEMP 36.6; O2SAT 95
[2019-05-07] MEDS: Normal Saline Flush 10 ML SYR IVP (12:07)
--- NOTE | 2019-05-07 14:49 | PT.INDS ---
Date of service: 05/07/19 Time of Service: 08:47 PT Notes Inpatient Physical Therapy Discharge Summary Dates: 05/07/2019 Dates of Service: 04/30/2019 through 05/07/2019 Referring Doctor: Daina Martino NP PT Orders: PT CONSULT: Limited ability Precautions: Fall. Standard. Activity as tolerated. Aphasic. Patient Profile/Admitting Diagnosis: Patient is a 53-year-old male with past medical history significant for neurofibromatosis who presented to the ED on 04/26/2019 with chief presentation of fever and rigors. Patient was diagnosed with sepsis sepsis, complicated UTI, and community-acquired pneumonia. PMHX: Medical History Meningioma (Acute) Neurofibromatosis 2 (Acute) Urinary retention (Acute) Surgical History S/P craniotomy (Acute) S/P [employer] shunt (Acute) Social History/Home Situation: Patient lives with parents and has 24/ care at home. Mother states that around a month ago patient was independent with transfer and ambulation activity. 28/02 caregivers and parents are able to provide self-care and toileting assistance. Equipment Owned/DME: Regular wheelchair SUBJECTIVE: Patient is non-verbal but did not appear in any discomfort or distress. His caregiver and mother reported that he had a ?rough day? yesterday (Tuesday). He did not walk further than the door of his room at which point his ?knees gave out?. OBJECTIVE: Patient was seen laying supine in bed with HOB elevated 60 degrees. He had an IV in the R UE open. ROM: Unable to do formal assessment of range of motion due to cognitive status and verbal impairment. Grossly, patient was able to advance each lower extremity during ambulation activity. He was able to propel wheelchair backward using bilateral lower extremities but now UV movement seen. Grossly 2-/5 for R LE. Grossly 2-/5 for the L LE. Sensation: Unable to assess Bed Mobility/Transfers: Rolling minimal assist of 2 Supine to sit minimal assist of 2 Sit to supine minimal assist of 2 Sit to stand minimal assist of 2 Stand to sit minimal assist of 2 Bed to chair minimal assist of 2 Chair to bed minimal assist of 2 Gait: Patient was able to tolerate 15' + 120' + 15' of level surface ambulation with minimal assist of 2 with hand-held assist of 2, gait belt on patient. Patient did not present with increased trunk posterior lean and no breathlessness was observed. Steps remained unstable, with each extremity crossing midline during acceleration, and with no heelstrike with mild foot slap noted on both sides. Balance: Static Sitting: Poor Dynamic Sitting: Poor Static Standing: Poor Dynamic Standing: Poor Assessment: Patient is a 53-year-old male with past medical history significant for neurofibromatosis who presented to the ED on 04/26/2019 with chief presentation of fever and rigors. Patient was diagnosed with sepsis sepsis, complicated UTI, and community-acquired pneumonia. He presents with decline in mobility ADL performance compared to the past several weeks. Patient has achieved all established goals and will continue to benefit from skilled home health therapy as indicated below. Patient continues to present with clinical signs and symptoms consistent with current/admitting diagnoses that have resulted to mobility limitations, gait instability, generalized weakness, and impairment of motor control as demonstrated by the following impairment level findings: 1. Decreased strength to B LE major muscle groups 2. Impaired sitting/standing balance 3. Impaired activity tolerance 4. Limitation of joint range of motion in B UE /LE Impairments are contributing to the following functional limitations: 1. Dependent bed mobility skills 2. Increased dependence with transfers 3. Inability to safely ambulate without assistive device and physical assistance 4. Increase completion time for mobility ADL performance 5. Increased fall risk 6. Inability to negotiate steps alone safely Goals: Goals X1 week 1. Supine-Sit minimal assist of 2 MET 2. Sit-Supine minimal assist of 2 MET 3. Sit-Stand minimal assist of 2 MET 4. Stand-Sit minimal assist of 2 MET 5. Bed-Chair minimal assist of 2 MET 6. Chair-Bed minimal assist of 2 MET 7. Minimal assist of 2 gait on level surface with use of least restrictive device for at least 15 feet without report of pain nor dyspnea MET 8. Fair static and dynamic sitting/standing balance/tolerance MET DISCHARGE RECOMMENDATIONS: Patient will benefit from home health PT services in order to progress mobility level using, re-assess home safety, identify additional equipment needs, and establish a functional maintenance program that will increase ability of patient to remain at home. TREATMENT CODE/TIME: 17676 x 30 minutes for 2 units beginning at 8:47 AM. Thank you very much for this referral. Mark Alas, [facility] With the supervision of: Tina Arzola PT, DPT, CLT [facility]
--- NOTE | 2019-05-07 15:54 | PDOC.HHF2F ---
Home Health Certification Home Health Certification: 1. Encounter Date and Reason I certify that YURIY ALCANTAR was seen by Daina Martino on 05/07/19 and that I had a [id number] encounter with this patient that meets the physician face to face encounter requirements. 2. Clinical Findings Supporting Skilled Need and Homebound Status I certify that home health services are medically necessary, include either intermittent long term and/or physical/speech therapy, and that this patient is homebound in that absences from the home require considerable and taxing effort and are infrequent or of short duration, or are attributable to the need to receive medical care. [X] (a) Attached documentation from encounter provides clinical findings supporting skilled need and homebound status (including what assistance patient requires to leave the home). The encounter with the patient was in whole, or in part, for the following medical condition, which is the primary reason for home health care: UTI,SEPSIS Half-Way: Patient will need midline care with infusion of antibiotics. Physical Therapy/Occupational Therapy: Patient will benefit from physical and occupational therapy to regain strength and be able to ambulate up stairs and get back to baseline Speech Therapy: Homebound: 3. Certification and Authentication I certify that I composed the above information based on my clinical judgement relating to this patient's medical condition and, if applicable, clinical findings communicated to me by the NPP or inpatient physician who performed the Home Health Referral. All further orders will be obtained through (Community Based Physician - PCP)
--- NOTE | 2019-05-07 17:24 | PDOC.CMDIS ---
- If Service Date Differs Date of service: 05/07/19 Time of Service: 17:24 LACE Index Scoring Tool - Questions: Length of Stay (in days): 7 - 13 Acuity (Admit via E.D.?): Yes E.D. Visits: 1 - Answers: Total Score: 9 Risk of Readmission: Low Risk Care Management Discharge Reason for Hospitalization: Sepsis, complicated UTI,Community acquired pneumonia Discharge Plan: Hollis will be discharged home today and follow up with primary care. CM coordinated home health services for PT, OT and nursing and he will be transported by ambulance. Hollis will have home Abx infusions through [facility] anticipate they will be delivered on Tuesday by [facility] in time for his next dose. There is no copay per [facility]. [address] [place] [address] is consulting for new caths and working with Hollis's parents to obtain. Patient/Family Education Needs: Discharge education, limitations and follow up plan of care including management and care at home. Services Needed at Discharge: DME Agency, Home Health Care Services, Infusion Therapy, Occupational Therapy, Physical Therapy, Transportation
== END 2019-05-07 14:43 | disposition home or self-care (01) | DRG 871 ==
LOC: ER 04-26 02:36 → MS 04-26 09:26
PROVIDERS: Internal Medicine; Nurse Practitioner; Nurse Practitioner Family; Admitting Provider Internal Medicine; Emergency Provider Emergency Medicine; PCP Internal Medicine; Visit Provider Internal Medicine
DX: A41.53 Sepsis due to Serratia (principal); J18.1 Lobar pneumonia, unspecified organism; N39.0 Urinary tract infection, site not specified; R09.02 Hypoxemia; E83.42 Hypomagnesemia; I35.0 Nonrheumatic aortic (valve) stenosis; F80.2 Mixed receptive-expressive language disorder; F79 Unspecified intellectual disabilities; R19.7 Diarrhea, unspecified; N31.9 Neuromuscular dysfunction of bladder, unspecified; Q99.8 Other specified chromosome abnormalities; Z98.2 Presence of cerebrospinal fluid drainage device
CPT/HCPCS: 36410; 36415; 36569; 76770; 80048; 80053; 84145; 87040; 87077; 93005; 93306; 96360; 96361; 97110; 97163; 97530; 99221; 99223; 99232; 99233; 99239; 99252; 99285; J1650; 71045; 71046; 74177; 81003; 81015; 83605; 83735; 84484; 85025; 86140; 87086; 87186; 87324; 93010; J1335; J1956; J2543; J3370; J3475; J3490

== ENCOUNTER 2019-05-14 10:57 | Outpatient (REF) | payer MEDICARE, MEDICAID, SELFPAY ==
[2019-05-14 14:29] LABS: HCT 42.4 % (40.0-50.0); HGB 13.3 g/dL (13.5-17.5); Mean Corp. HGB Concentration 31.4 g/dL (32.0-36.0); Mean Corpuscular Hemoglobin 27.8 pg (27.0-33.0); Mean Corpuscular Volume 88.7 fL (80-95); Mean Platelet Volume 10.9 fL (8.0-11.0); Platelet Count 272 x1000/uL (130-400); RBC 4.78 m/cumm (4.50-6.00); RBC Distribution Width 14.2 % (11.8-14.1); White Blood Cell Count 6.49 k/cumm (4.4-10.8)
[2019-05-14 15:05] LABS: ALT 64 U/L (16-63); AST 23 U/L (15-37); Albumin 3.2 g/dL (3.4-5.0); Alkaline Phosphatase 137 U/L (46-116); Anion Gap 8.7 mmol/L (3-11); BUN 16 mg/dL (7-18); Bilirubin, Total 0.5 mg/dL (0.2-1.0); C-Reactive Protein 3.71 mg/dL (0.0-0.3); CO2 30.3 mmol/L (21.0-32.0); Calcium 8.9 mg/dL (8.5-10.1); Chloride 102 mmol/L (98-107); Glucose 144 mg/dL (70-100); Potassium 4.3 mmol/L (3.5-5.1); Sodium 141 mmol/L (136-145); Total Protein 7.4 g/dL (6.4-8.2)
== END 2019-05-14 11:17 ==
LOC: NCHCN 10:57
PROVIDERS: PCP Internal Medicine; Visit Provider Internal Medicine
DX: R33.9 Retention of urine, unspecified (principal); Z86.19 Personal history of other infectious and parasitic diseases; Z98.2 Presence of cerebrospinal fluid drainage device
CPT/HCPCS: 80053; 85027; 86140

== ENCOUNTER 2019-06-04 12:49 | Outpatient (REF) | payer MEDICARE, MEDICAID, SELFPAY ==
[2019-06-04 15:20] LABS: Bilirubin Negative (Negative); Blood Trace-intact (Negative); Clarity Clear (Clear); Glucose Negative (Negative); Ketones Negative (Negative); Leukocyte Esterase Small (Negative); Nitrite Negative (Negative); Specific Gravity 1.025 (1.005-1.025); Urobilinogen 0.2 EU/dL (Up TO 0.2)
[2019-06-04 15:32] LABS: Bacteria Negative HPF (Negative); C & S Indicated? Yes; Casts Negative LPF (Negative); Crystals Negative HPF (Negative); Epithelial Cells Rare HPF (Negative); Mucus Negative (Negative); RBC 0-2 (0-2); WBC >50 HPF (0-5)
== END 2019-06-04 13:09 ==
LOC: NCHCN 12:49
PROVIDERS: PCP Internal Medicine; Visit Provider Internal Medicine
DX: N39.0 Urinary tract infection, site not specified (principal); R32 Unspecified urinary incontinence
CPT/HCPCS: 87077; 81003; 81015; 87086; 87186

== ENCOUNTER → 2019-06-29 14:23 | Outpatient (BNVA) | payer MEDICARE, MEDICAID, SELFPAY | PROVIDERS: PCP Internal Medicine; Referring Provider Internal Medicine; Visit Provider Urology | DX: N31.9 Neuromuscular dysfunction of bladder, unspecified (principal); Z87.440 Personal history of urinary (tract) infections; Z96.0 Presence of urogenital implants ==

== ENCOUNTER 2019-06-30 13:04 | Outpatient (REF) | payer MEDICARE, MEDICAID, SELFPAY ==
[2019-06-30 14:01] LABS: Bilirubin Negative (Negative); Blood Negative (Negative); Clarity Sl Cloudy (Clear); Glucose Negative (Negative); Ketones Negative (Negative); Leukocyte Esterase Negative (Negative); Nitrite Negative (Negative); Urobilinogen 0.2 EU/dL (Up TO 0.2); pH 7.5 (5-8)
== END 2019-06-30 13:24 ==
LOC: NCHCN 13:04
PROVIDERS: PCP Internal Medicine; Visit Provider Internal Medicine
DX: N39.0 Urinary tract infection, site not specified (principal); R32 Unspecified urinary incontinence
CPT/HCPCS: 81003

== ENCOUNTER 2019-12-13 13:20 | Outpatient (REF) | payer MEDICARE, MEDICAID, SELFPAY | END 2019-12-13 13:40 | LOC: NCHCN 13:20 | PROVIDERS: PCP Internal Medicine; Visit Provider Internal Medicine | DX: N39.0 Urinary tract infection, site not specified (principal) | CPT/HCPCS: 87077; 87086 ==

== ENCOUNTER 2019-12-15 09:51 | Outpatient (REF) | payer MEDICARE, MEDICAID, SELFPAY ==
[2019-12-15 10:07] LABS: Bilirubin Negative (Negative); Blood Negative (Negative); Clarity Cloudy (Clear); Glucose Negative (Negative); Ketones Negative (Negative); Leukocyte Esterase Small (Negative); Nitrite Negative (Negative); Specific Gravity 1.025 (1.005-1.025); Urobilinogen 0.2 EU/dL (Up TO 0.2)
[2019-12-15 10:23] LABS: Epithelial Cells Negative HPF (Negative); Other Cells Rare Renal (Negative); RBC Negative HPF (0-2); WBC >50 HPF (0-5)
[2019-12-15 10:24] LABS: Bacteria Many HPF (Negative); C & S Indicated? Yes; Casts Negative LPF (Negative); Crystals Negative HPF (Negative); Mucus Negative (Negative)
== END 2019-12-15 10:11 ==
LOC: NCHCN 09:51
PROVIDERS: PCP Internal Medicine; Visit Provider Internal Medicine
DX: N39.0 Urinary tract infection, site not specified (principal); R32 Unspecified urinary incontinence
CPT/HCPCS: 81003; 81015; 87086

== ENCOUNTER 2020-01-07 10:20 | Outpatient (REF) | payer MEDICARE, MEDICAID, SELFPAY ==
[2020-01-07 11:33] LABS: Bilirubin Negative (Negative); Blood Negative (Negative); Clarity Cloudy (Clear); Glucose Negative (Negative); Ketones Negative (Negative); Leukocyte Esterase Large (Negative); Nitrite Negative (Negative); Urobilinogen 0.2 EU/dL (Up TO 0.2)
[2020-01-07 11:52] LABS: Bacteria Many HPF (Negative); C & S Indicated? Yes; WBC >50 HPF (0-5)
== END 2020-01-07 10:40 ==
LOC: NCHCN 10:20
PROVIDERS: PCP Internal Medicine; Visit Provider Internal Medicine
DX: N39.0 Urinary tract infection, site not specified (principal); R32 Unspecified urinary incontinence
CPT/HCPCS: 87077; 81003; 81015; 87086

== ENCOUNTER 2020-02-11 11:30 | Outpatient (REF) | payer MEDICARE, MEDICAID, SELFPAY ==
[2020-02-11 13:54] LABS: Bilirubin Negative (Negative); Blood Negative (Negative); Clarity Sl Cloudy (Clear); Glucose Negative (Negative); Ketones Negative (Negative); Leukocyte Esterase Small (Negative); Nitrite Negative (Negative); Specific Gravity >= 1.030 (1.005-1.025); Urobilinogen 0.2 EU/dL (Up TO 0.2); pH 5.5 (5-8)
[2020-02-11 14:24] LABS: Bacteria Many HPF (Negative); C & S Indicated? Yes; Casts Negative LPF (Negative); Crystals Negative HPF (Negative); Epithelial Cells Negative HPF (Negative); Mucus Negative (Negative); RBC Negative HPF (0-2); WBC >50 HPF (0-5)
== END 2020-02-11 11:50 ==
LOC: NCHCN 11:30
PROVIDERS: PCP Internal Medicine; Visit Provider Internal Medicine
DX: N39.0 Urinary tract infection, site not specified (principal); R32 Unspecified urinary incontinence
CPT/HCPCS: 81003; 81015; 87086; 87186

== ENCOUNTER 2020-03-01 09:47 | Outpatient (REF) | payer MEDICARE, MEDICAID, SELFPAY ==
[2020-03-01 10:40] LABS: Bilirubin Negative (Negative); Blood Small (Negative); Clarity Cloudy (Clear); Glucose Negative (Negative); Ketones Negative (Negative); Leukocyte Esterase Small (Negative); Nitrite Positive (Negative); Specific Gravity >= 1.030 (1.005-1.025); Urobilinogen 0.2 EU/dL (Up TO 0.2); pH 5.5 (5-8)
[2020-03-01 10:47] LABS: Bacteria Many HPF (Negative); Epithelial Cells Rare HPF (Negative)
[2020-03-01 10:48] LABS: C & S Indicated? Yes; Casts Negative LPF (Negative); Crystals Rare Amorphous HPF (Negative); Mucus Trace (Negative)
== END 2020-03-01 10:07 ==
LOC: NCHCN 09:47
PROVIDERS: PCP Internal Medicine; Visit Provider Internal Medicine
DX: N39.0 Urinary tract infection, site not specified (principal); R32 Unspecified urinary incontinence
CPT/HCPCS: 87077; 81003; 81015; 87086; 87186

== ENCOUNTER 2020-03-24 11:26 | Outpatient (REF) | payer MEDICARE, MEDICAID, SELFPAY ==
[2020-03-24 12:40] LABS: Bilirubin Negative (Negative); Blood Moderate (Negative); Clarity Cloudy (Clear); Glucose Negative (Negative); Ketones Negative (Negative); Leukocyte Esterase Moderate (Negative); Nitrite Positive (Negative); Urobilinogen 0.2 EU/dL (Up TO 0.2); pH 6.5 (5-8)
[2020-03-24 12:53] LABS: C & S Indicated? Yes; WBC >50 HPF (0-5)
== END 2020-03-24 11:46 ==
LOC: NCHCN 11:26
PROVIDERS: PCP Internal Medicine; Visit Provider Internal Medicine
DX: N39.0 Urinary tract infection, site not specified (principal); R32 Unspecified urinary incontinence
CPT/HCPCS: 87077; 81003; 81015; 87086; 87186

== ENCOUNTER 2020-04-01 16:49 | Outpatient (REF) | payer MEDICARE, MEDICAID, SELFPAY ==
[2020-04-01 13:58] LABS: Bilirubin Negative (Negative); Blood Negative (Negative); Clarity Cloudy (Clear); Glucose Negative (Negative); Ketones Negative (Negative); Leukocyte Esterase Large (Negative); Nitrite Negative (Negative); Specific Gravity 1.025 (1.005-1.025); Urobilinogen 0.2 EU/dL (Up TO 0.2); pH 5.5 (5-8)
[2020-04-01 14:05] LABS: Bacteria Many HPF (Negative); C & S Indicated? Yes; Casts Negative LPF (Negative); Crystals Negative HPF (Negative); Epithelial Cells Rare HPF (Negative); Mucus Negative (Negative); RBC 0-2 HPF (0-2); WBC >50 HPF (0-5)
== END 2020-04-01 17:09 ==
LOC: NCHCN 16:49
PROVIDERS: PCP Internal Medicine; Visit Provider Internal Medicine
DX: N39.0 Urinary tract infection, site not specified (principal); R32 Unspecified urinary incontinence
CPT/HCPCS: 87077; 81003; 81015; 87086; 87186

== ENCOUNTER 2020-04-07 02:00 | Outpatient (CLI) | payer MEDICARE, MEDICAID, SELFPAY ==
--- NOTE | 2020-04-07 08:00 | DI.US_ITS ---
EXAM: US RENAL CLINICAL HISTORY: r/o hydronephrosis, NEUROGENIC BLADDER, N31.9. TECHNIQUE: Amor scale, color and spectral Doppler were used. COMPARISON: CT ABD PELVIS WO CONTRAST from 07/27/2011 US US RENAL from 04/26/[address] ABDOMEN PELVIS W from 05/04/2019 FINDINGS: Renal size in cm: Right: 8.6. Left: 11.2. Echogenicity: Normal. Hydronephrosis: Stable dilatation of the left renal pelvis. This was present on both an ultrasound a nd CT scan from 2018. There was also dilatation of the left renal pelvis seen on the CT scan from . This may reflect a prominent left extrarenal pelvis. Cyst or mass: No. Nephrolithiasis: Nonobstructing 3 mm right renal calculus. Other findings: None. Bladder:There is debris seen layering in the dependent portion of the urinary bladder. Ureteral jets: Right: Visualized and unremarkable. Left: Not visualized on this examination. Prevoid vol:494 cc Postvoid vol:1.6 cc Prostate: 49 cc Renal color flow: Symmetric and within normal limits. IMPRESSION: 1. Persistent prominence of the left renal pelvis. This may represent a left extrarenal pelvis. Nuc lear medicine renal scan may be obtained to assess for evidence of obstruction. 2. Right nephrolithiasis. No obstruction. 3. Debris seen layering in the dependent portion of the urinary bladder. DATA REPOSITORY:
== END 2020-04-07 02:20 ==
PROVIDERS: PCP Internal Medicine; Visit Provider Urology
DX: N20.0 Calculus of kidney (principal); N31.9 Neuromuscular dysfunction of bladder, unspecified
CPT/HCPCS: 76770

== ENCOUNTER → 2020-04-11 10:54 | Outpatient (BNVA) | payer MEDICARE, MEDICAID, SELFPAY | PROVIDERS: PCP Internal Medicine; Referring Provider Internal Medicine; Visit Provider Urology | DX: N31.8 Other neuromuscular dysfunction of bladder (principal); R33.8 Other retention of urine; R39.9 Unspecified symptoms and signs involving the genitourinary system | CPT/HCPCS: 99213 ==

== ENCOUNTER 2020-04-18 10:53 | Outpatient (REF) | payer MEDICARE, MEDICAID, SELFPAY ==
[2020-04-18 13:27] LABS: Bilirubin Negative (Negative); Blood Trace-intact (Negative); Clarity Cloudy (Clear); Glucose Negative (Negative); Ketones Negative (Negative); Leukocyte Esterase Large (Negative); Nitrite Negative (Negative); Specific Gravity 1.015 (1.005-1.025); Urobilinogen 0.2 EU/dL (Up TO 0.2); pH 6.5 (5-8)
[2020-04-18 13:38] LABS: Bacteria Many HPF (Negative); C & S Indicated? Yes
[2020-04-18 13:39] LABS: WBC >50 HPF (0-5)
== END 2020-04-18 11:13 ==
LOC: NCHCN 10:53
PROVIDERS: PCP Internal Medicine; Visit Provider Internal Medicine
DX: N39.0 Urinary tract infection, site not specified (principal); R32 Unspecified urinary incontinence; R19.4 Change in bowel habit
CPT/HCPCS: 87077; 81003; 81015; 87086; 87186; 87324

== ENCOUNTER 2020-05-09 13:43 | Outpatient (REF) | payer MEDICARE, MEDICAID, SELFPAY ==
[2020-05-09 14:38] LABS: Bilirubin Negative (Negative); Blood Trace-intact (Negative); Clarity Sl Cloudy (Clear); Glucose Negative (Negative); Ketones Negative (Negative); Leukocyte Esterase Large (Negative); Nitrite Negative (Negative); Urobilinogen 0.2 EU/dL (Up TO 0.2)
[2020-05-09 14:45] LABS: WBC >50 HPF (0-5)
[2020-05-09 14:46] LABS: C & S Indicated? Yes
== END 2020-05-09 14:03 ==
LOC: NCHCN 13:43
PROVIDERS: PCP Internal Medicine; Visit Provider Internal Medicine
DX: N39.0 Urinary tract infection, site not specified (principal); R32 Unspecified urinary incontinence
CPT/HCPCS: 87077; 81003; 81015; 87086

== ENCOUNTER 2020-06-13 11:18 | Outpatient (REF) | payer MEDICARE, MEDICAID, SELFPAY ==
[2020-06-13 12:11] LABS: Bilirubin Negative (Negative); Blood Moderate (Negative); Clarity Sl Cloudy (Clear); Glucose Negative (Negative); Ketones Negative (Negative); Leukocyte Esterase Large (Negative); Nitrite Negative (Negative); Urobilinogen 0.2 EU/dL (Up TO 0.2)
[2020-06-13 12:17] LABS: WBC >50 HPF (0-5)
[2020-06-13 12:20] LABS: C & S Indicated? Yes
== END 2020-06-13 11:38 ==
LOC: NCHCN 11:18
PROVIDERS: PCP Internal Medicine; Visit Provider Internal Medicine
DX: N39.0 Urinary tract infection, site not specified (principal); R32 Unspecified urinary incontinence
CPT/HCPCS: 87077; 81003; 81015; 87086

== ENCOUNTER 2020-07-14 13:34 | Outpatient (REF) | payer MEDICARE, MEDICAID, SELFPAY ==
[2020-07-14 14:16] LABS: Bilirubin Negative (Negative); Blood Trace-intact (Negative); Clarity Cloudy (Clear); Glucose Negative (Negative); Ketones Negative (Negative); Leukocyte Esterase Large (Negative); Nitrite Positive (Negative); Urobilinogen 0.2 EU/dL (Up TO 0.2)
[2020-07-14 14:27] LABS: Bacteria Many HPF (Negative); C & S Indicated? Yes; WBC >50 HPF (0-5)
== END 2020-07-14 13:54 ==
LOC: NCHCN 13:34
PROVIDERS: PCP Internal Medicine; Visit Provider Internal Medicine
DX: N39.0 Urinary tract infection, site not specified (principal); R32 Unspecified urinary incontinence
CPT/HCPCS: 87077; 81003; 81015; 87086; 87186

== ENCOUNTER 2020-10-25 10:38 | Outpatient (REF) | payer MEDICARE, MEDICAID, SELFPAY ==
[2020-10-25 13:37] LABS: Bilirubin Negative (Negative); Blood Moderate (Negative); Clarity Turbid (Clear); Glucose Negative (Negative); Ketones Trace mg/dL (Negative); Leukocyte Esterase Large (Negative); Nitrite Positive (Negative); Specific Gravity >= 1.030 (1.005-1.025); Urobilinogen 0.2 EU/dL (Up TO 0.2); pH 5.5 (5-8)
[2020-10-25 13:48] LABS: C & S Indicated? C&S Done As Ordered; WBC >50 HPF (0-5)
== END 2020-10-25 10:39 | disposition home or self-care (01) ==
LOC: LBN 10:38
PROVIDERS: PCP Internal Medicine; Visit Provider Internal Medicine
DX: N39.0 Urinary tract infection, site not specified (principal)
CPT/HCPCS: 87077; 81003; 81015; 87086; 87186

== ENCOUNTER 2020-11-29 11:14 | Outpatient (CLI) | payer MEDICARE, MEDICAID, SELFPAY ==
[2020-11-29 11:29] LABS: Bilirubin Negative (Negative); Blood Trace-intact (Negative); Clarity Cloudy (Clear); Glucose Negative (Negative); Ketones Negative (Negative); Leukocyte Esterase Small (Negative); Nitrite Positive (Negative); Specific Gravity >= 1.030 (1.005-1.025); Urobilinogen 0.2 EU/dL (Up TO 0.2)
[2020-11-29 11:38] LABS: Bacteria Moderate HPF (Negative); C & S Indicated? C&S Done As Ordered; Casts Negative LPF (Negative); Crystals Negative HPF (Negative); Epithelial Cells Rare HPF (Negative); Mucus Negative (Negative)
== END 2020-11-29 11:15 | disposition home or self-care (01) ==
LOC: LBN 11:18
PROVIDERS: PCP Internal Medicine; Visit Provider Internal Medicine
DX: N39.0 Urinary tract infection, site not specified (principal)
CPT/HCPCS: 87077; 81003; 81015; 87086; 87186

== ENCOUNTER 2020-12-27 14:12 | Outpatient (REF) | payer MEDICARE, MEDICAID, SELFPAY ==
[2020-12-27 13:59] LABS: Bilirubin Negative (Negative); Blood Trace-intact (Negative); Clarity Clear (Clear); Glucose Negative (Negative); Ketones Negative (Negative); Leukocyte Esterase Small (Negative); Nitrite Negative (Negative); Specific Gravity 1.015 (1.005-1.025); Urobilinogen 0.2 EU/dL (Up TO 0.2)
[2020-12-27 14:10] LABS: Bacteria Few HPF (Negative); C & S Indicated? C&S Done As Ordered; Casts Negative LPF (Negative); Crystals Negative HPF (Negative); Epithelial Cells Negative HPF (Negative); Mucus Negative (Negative); Other Cells Few Renal (Negative); RBC 0-2 HPF (0-2); WBC >50 HPF (0-5)
== END 2020-12-27 14:13 | disposition home or self-care (01) ==
LOC: LBN 14:12
PROVIDERS: PCP Internal Medicine; Visit Provider Internal Medicine
DX: N39.0 Urinary tract infection, site not specified (principal)
CPT/HCPCS: 87077; 81003; 81015; 87086; 87186

== ENCOUNTER 2021-02-12 10:47 | Outpatient (REF) | payer MEDICARE, MEDICAID, SELFPAY ==
[2021-02-12 12:34] LABS: Bilirubin Negative (Negative); Blood Small (Negative); Clarity Sl Cloudy (Clear); Glucose Negative (Negative); Ketones Negative (Negative); Leukocyte Esterase Moderate (Negative); Nitrite Positive (Negative); Specific Gravity 1.025 (1.005-1.025); Urobilinogen 0.2 EU/dL (Up TO 0.2)
[2021-02-12 12:41] LABS: WBC >50 HPF (0-5)
[2021-02-12 12:42] LABS: C & S Indicated? C&S Done As Ordered
== END 2021-02-12 10:48 | disposition home or self-care (01) ==
LOC: NCHCN 10:47
PROVIDERS: PCP Internal Medicine; Visit Provider Internal Medicine
DX: N39.0 Urinary tract infection, site not specified (principal); Z86.19 Personal history of other infectious and parasitic diseases
CPT/HCPCS: 87077; 81003; 81015; 87086; 87186

== ENCOUNTER 2021-04-02 16:55 | Outpatient (REF) | payer MEDICARE, MEDICAID, SELFPAY ==
[2021-04-02 15:49] LABS: Bilirubin Negative (Negative); Blood Trace-lysed (Negative); Clarity Clear (Clear); Glucose Negative (Negative); Ketones Negative (Negative); Leukocyte Esterase Large (Negative); Nitrite Negative (Negative); Specific Gravity 1.025 (1.005-1.025); Urobilinogen 0.2 EU/dL (Up TO 0.2); pH 6.5 (5-8)
[2021-04-02 16:20] LABS: Bacteria Few HPF (Negative); C & S Indicated? C&S Done As Ordered; Casts Negative LPF (Negative); Crystals Negative HPF (Negative); Epithelial Cells Negative HPF (Negative); Mucus Negative (Negative); RBC >50 HPF (0-2)
[2021-04-02 16:21] LABS: WBC >50 HPF (0-5)
== END 2021-04-02 16:56 | disposition home or self-care (01) ==
LOC: NCHCN 16:55
PROVIDERS: PCP Internal Medicine; Visit Provider Internal Medicine
DX: N39.0 Urinary tract infection, site not specified (principal); Z86.19 Personal history of other infectious and parasitic diseases
CPT/HCPCS: 87077; 81003; 81015; 87086; 87186

== ENCOUNTER 2021-04-08 02:05 | Outpatient (CLI) | payer MEDICARE, MEDICAID, SELFPAY ==
--- NOTE | 2021-04-08 07:30 | DI.US_ITS ---
Exam(s) US RENAL EXAM: US RENAL CLINICAL HISTORY: r/o hydronephrosis,NEUROGENIC BLADDER,N31.9. TECHNIQUE: Amor scale, color and spectral Doppler were used. COMPARISON: US US RENAL from 04/07/2020 FINDINGS: Renal size in cm: Right: 9.3. Left: 10.9. Echogenicity: Normal. Hydronephrosis: No. Cyst or mass: No. Nephrolithiasis: 0.3 x 0.4 cm nonobstructing stone in the inferior pole of the right kidney. Other findings: None. Bladder:Normal. Mild amount of debris seen within the urinary bladder. Ureteral jets: Right: Not identified during the examination. Left: Not identified during the examination. Prevoid vol:357 cc Postvoid vol:0 cc. The patient performed self catheterization. Prostate: 61 cc Renal color flow: Symmetric and within normal limits. IMPRESSION: 1. Right nephrolithiasis. No hydronephrosis. 2. No evidence of left hydronephrosis. 3. Enlarged prostate gland. DATA REPOSITORY:
== END 2021-04-08 02:25 ==
PROVIDERS: PCP Internal Medicine; Visit Provider Urology
DX: N31.9 Neuromuscular dysfunction of bladder, unspecified (principal); N20.0 Calculus of kidney; N40.0 Benign prostatic hyperplasia without lower urinary tract symptoms
CPT/HCPCS: 76770

== ENCOUNTER 2021-04-16 02:53 | Outpatient (CLI) | payer MEDICARE, MEDICAID, SELFPAY ==
[2021-04-16 11:56] LABS: CREATININE 1.2 mg/dL (0.70-1.30)
== END 2021-04-16 02:54 | disposition home or self-care (01) ==
LOC: LBO 02:53
PROVIDERS: PCP Internal Medicine; Visit Provider Urology
DX: N31.9 Neuromuscular dysfunction of bladder, unspecified (principal)
CPT/HCPCS: 36415; 82565

== ENCOUNTER → 2021-04-27 08:05 | Outpatient (BNVA) | payer MEDICARE, MEDICAID, SELFPAY | PROVIDERS: PCP Internal Medicine; Referring Provider Internal Medicine; Visit Provider Urology | DX: N31.8 Other neuromuscular dysfunction of bladder (principal) | CPT/HCPCS: 99443 ==

== ENCOUNTER 2021-06-25 10:01 | Outpatient (REF) | payer MEDICARE, MEDICAID, SELFPAY ==
[2021-06-25 13:20] LABS: Bilirubin Negative (Negative); Blood Negative (Negative); Clarity Sl Cloudy (Clear); Glucose Negative (Negative); Ketones Negative (Negative); Leukocyte Esterase Trace (Negative); Nitrite Negative (Negative); Urobilinogen 0.2 EU/dL (Up TO 0.2); pH 7.5 (5-8)
[2021-06-25 13:33] LABS: Bacteria Rare HPF (Negative); C & S Indicated? Yes; Casts Negative LPF (Negative); Crystals Negative HPF (Negative); Epithelial Cells Rare HPF (Negative); Mucus Negative (Negative); RBC 0-2 HPF (0-2); WBC >50 HPF (0-5)
[2021-06-26 11:45] LABS: COVID-19 RT-PCR UVMMC Result Negative (Negative)
== END 2021-06-25 10:02 | disposition home or self-care (01) ==
LOC: LBN 10:01
PROVIDERS: PCP Internal Medicine; Visit Provider Internal Medicine
DX: Z20.822 Contact with and (suspected) exposure to COVID-19 (principal); N39.0 Urinary tract infection, site not specified; R33.9 Retention of urine, unspecified
CPT/HCPCS: U0003; U0005; 81003; 81015; 87086

== ENCOUNTER 2021-07-12 14:56 | Outpatient (REF) | payer MEDICARE, MEDICAID, SELFPAY ==
[2021-07-12 15:29] LABS: Bilirubin Negative (Negative); Blood Trace-intact (Negative); Clarity Sl Cloudy (Clear); Glucose Negative (Negative); Ketones Negative (Negative); Leukocyte Esterase Moderate (Negative); Nitrite Positive (Negative); Urobilinogen 0.2 EU/dL (Up TO 0.2)
[2021-07-12 15:54] LABS: Bacteria Many HPF (Negative); C & S Indicated? C&S Done As Ordered; WBC >50 HPF (0-5)
== END 2021-07-12 14:57 | disposition home or self-care (01) ==
LOC: NCHCN 14:56
PROVIDERS: PCP Internal Medicine; Visit Provider Internal Medicine
DX: N39.0 Urinary tract infection, site not specified (principal); R33.9 Retention of urine, unspecified
CPT/HCPCS: 87077; 81003; 81015; 87086; 87186

== ENCOUNTER 2021-08-30 11:44 | Outpatient (REF) | payer MEDICARE, MEDICAID, SELFPAY ==
[2021-08-30 12:52] LABS: Bilirubin Negative (Negative); Blood Small (Negative); Clarity Cloudy (Clear); Glucose Negative (Negative); Ketones Negative (Negative); Leukocyte Esterase Moderate (Negative); Nitrite Positive (Negative); Specific Gravity >= 1.030 (1.005-1.025); Urobilinogen 0.2 EU/dL (Up TO 0.2)
[2021-08-31 06:41] LABS: Bacteria Moderate HPF (Negative); Crystals Negative HPF (Negative); Epithelial Cells Negative HPF (Negative); WBC 20-50 HPF (0-5)
[2021-08-31 06:42] LABS: C & S Indicated? C&S Done As Ordered; Casts Negative LPF (Negative); Mucus Negative (Negative)
== END 2021-08-30 11:45 | disposition home or self-care (01) ==
LOC: NCHCN 11:44
PROVIDERS: PCP Internal Medicine; Visit Provider Internal Medicine
DX: R33.8 Other retention of urine (principal); N39.0 Urinary tract infection, site not specified
CPT/HCPCS: 87077; 81003; 81015; 87086; 87186

== ENCOUNTER 2021-11-28 14:49 | Outpatient (REF) | payer MEDICARE, MEDICAID, SELFPAY ==
[2021-11-28 15:26] LABS: Bilirubin Negative (Negative); Blood Moderate (Negative); Clarity Cloudy (Clear); Glucose Negative (Negative); Ketones Negative (Negative); Leukocyte Esterase Moderate (Negative); Nitrite Negative (Negative); Specific Gravity 1.025 (1.005-1.025); Urobilinogen 0.2 EU/dL (Up TO 0.2)
[2021-11-28 15:34] LABS: Bacteria Moderate HPF (Negative); C & S Indicated? Yes; Casts Negative LPF (Negative); Crystals Negative HPF (Negative); Epithelial Cells Rare HPF (Negative); Mucus Trace (Negative); WBC 20-50 HPF (0-5)
== END 2021-11-28 14:50 | disposition home or self-care (01) ==
LOC: NCHCN 14:49
PROVIDERS: PCP Internal Medicine; Visit Provider Internal Medicine
DX: R33.9 Retention of urine, unspecified (principal); N39.0 Urinary tract infection, site not specified; N31.9 Neuromuscular dysfunction of bladder, unspecified
CPT/HCPCS: 81003; 81015; 87086

== ENCOUNTER 2021-12-01 20:27 | Outpatient (REF) | payer MEDICARE, MEDICAID, SELFPAY ==
[2021-12-01 19:43] LABS: Bilirubin Negative (Negative); Blood Trace-intact (Negative); Clarity Sl Cloudy (Clear); Glucose Negative (Negative); Ketones Negative (Negative); Leukocyte Esterase Large (Negative); Nitrite Negative (Negative); Specific Gravity 1.015 (1.005-1.025); Urobilinogen 0.2 EU/dL (Up TO 0.2); pH 6.5 (5-8)
[2021-12-01 21:06] LABS: Bacteria Many HPF (Negative); C & S Indicated? Yes; Casts Negative LPF (Negative); Crystals Negative HPF (Negative); Epithelial Cells Negative HPF (Negative); Mucus Negative (Negative); RBC Negative HPF (0-2); WBC >50 HPF (0-5)
== END 2021-12-01 20:28 | disposition home or self-care (01) ==
LOC: NCHCN 20:27
PROVIDERS: PCP Internal Medicine; Visit Provider Internal Medicine
DX: N39.0 Urinary tract infection, site not specified (principal); R33.9 Retention of urine, unspecified; N31.9 Neuromuscular dysfunction of bladder, unspecified
CPT/HCPCS: 81003; 81015; 87086; 87186

== ENCOUNTER 2022-01-12 15:06 | Outpatient (REF) | payer MEDICARE, MEDICAID, SELFPAY ==
[2022-01-12 10:31] LABS: Bilirubin Negative (Negative); Blood Moderate (Negative); Clarity Cloudy (Clear); Glucose Negative (Negative); Ketones Negative (Negative); Leukocyte Esterase Moderate (Negative); Nitrite Positive (Negative); Specific Gravity >= 1.030 (1.005-1.025); Urobilinogen 0.2 EU/dL (Up TO 0.2)
[2022-01-12 10:44] LABS: Bacteria Moderate HPF (Negative); C & S Indicated? Yes; Casts Negative LPF (Negative); Crystals Negative HPF (Negative); Epithelial Cells Few HPF (Negative); Mucus Negative (Negative); WBC >50 HPF (0-5)
== END 2022-01-12 15:07 | disposition home or self-care (01) ==
LOC: NCHCN 15:06
PROVIDERS: PCP Internal Medicine; Visit Provider Internal Medicine
DX: R33.8 Other retention of urine (principal); N31.8 Other neuromuscular dysfunction of bladder; N39.0 Urinary tract infection, site not specified
CPT/HCPCS: 87077; 81003; 81015; 87086; 87186

== ENCOUNTER 2022-01-30 11:04 | Outpatient (REF) | payer MEDICARE, MEDICAID, SELFPAY ==
[2022-01-30 11:48] LABS: Bilirubin Negative (Negative); Blood Moderate (Negative); Clarity Cloudy (Clear); Glucose Negative (Negative); Ketones Negative (Negative); Leukocyte Esterase Small (Negative); Nitrite Negative (Negative); Specific Gravity 1.025 (1.005-1.025); Urobilinogen 0.2 EU/dL (Up TO 0.2)
[2022-01-30 11:55] LABS: Bacteria Few HPF (Negative); C & S Indicated? Yes; Casts Negative LPF (Negative); Crystals Negative HPF (Negative); Epithelial Cells Rare HPF (Negative); Mucus Negative (Negative)
== END 2022-01-30 11:05 | disposition home or self-care (01) ==
LOC: NCHCN 11:04
PROVIDERS: PCP Internal Medicine; Visit Provider Internal Medicine
DX: N39.0 Urinary tract infection, site not specified (principal); R33.9 Retention of urine, unspecified; N31.9 Neuromuscular dysfunction of bladder, unspecified
CPT/HCPCS: 81003; 81015; 87086

== ENCOUNTER 2022-02-11 11:26 | Outpatient (REF) | payer MEDICARE, MEDICAID, SELFPAY ==
[2022-02-11 13:56] LABS: Bilirubin Negative (Negative); Blood Moderate (Negative); Clarity Cloudy (Clear); Glucose Negative (Negative); Ketones Negative (Negative); Leukocyte Esterase Moderate (Negative); Nitrite Positive (Negative); Urobilinogen 0.2 EU/dL (Up TO 0.2)
[2022-02-11 14:16] LABS: Bacteria Many HPF (Negative); C & S Indicated? C&S Done As Ordered; Casts Negative LPF (Negative); Crystals Negative HPF (Negative); Epithelial Cells Rare HPF (Negative); Mucus Negative (Negative); Other Cells Negative (Negative); RBC >50 HPF (0-2); WBC >50 HPF (0-5)
== END 2022-02-11 11:27 | disposition home or self-care (01) ==
LOC: NCHCN 11:26
PROVIDERS: PCP Internal Medicine; Visit Provider Internal Medicine
DX: N39.0 Urinary tract infection, site not specified (principal); N31.8 Other neuromuscular dysfunction of bladder
CPT/HCPCS: 87077; 81003; 81015; 87086; 87186

== ENCOUNTER 2022-02-24 11:45 | Outpatient (REF) | payer MEDICARE, MEDICAID, SELFPAY ==
[2022-02-24 13:02] LABS: Bilirubin Negative (Negative); Blood Small (Negative); Clarity Cloudy (Clear); Glucose Negative (Negative); Ketones Negative (Negative); Leukocyte Esterase Large (Negative); Nitrite Positive (Negative); Specific Gravity 1.025 (1.005-1.025); Urobilinogen 0.2 EU/dL (Up TO 0.2)
[2022-02-24 13:18] LABS: Bacteria Many HPF (Negative); C & S Indicated? C&S Done As Ordered; Casts Negative LPF (Negative); Crystals Negative HPF (Negative); Epithelial Cells Few HPF (Negative); Mucus Negative (Negative); WBC >50 HPF (0-5)
== END 2022-02-24 11:46 | disposition home or self-care (01) ==
LOC: NCHCN 11:45
PROVIDERS: PCP Internal Medicine; Visit Provider Internal Medicine
DX: R33.8 Other retention of urine (principal); N39.0 Urinary tract infection, site not specified; N31.8 Other neuromuscular dysfunction of bladder
CPT/HCPCS: 87077; 81003; 81015; 87086; 87186

== ENCOUNTER → 2022-04-06 13:00 | Outpatient (BNVA) | payer MEDICARE, MEDICAID, SELFPAY | PROVIDERS: PCP Internal Medicine; Referring Provider Internal Medicine; Visit Provider Urology | DX: N31.9 Neuromuscular dysfunction of bladder, unspecified (principal) | CPT/HCPCS: 99213 ==

== ENCOUNTER 2022-04-06 15:02 | Outpatient (REF) | payer MEDICARE, MEDICAID, SELFPAY ==
[2022-04-06 16:24] LABS: Source Nasal/Nares
[2022-04-06 20:46] LABS: COVID-19 PCR Negative (Negative)
== END 2022-04-06 15:03 | disposition home or self-care (01) ==
LOC: LBN 15:02
PROVIDERS: PCP Internal Medicine; Visit Provider Urology
DX: Z20.822 Contact with and (suspected) exposure to COVID-19 (principal)
CPT/HCPCS: 87635

== ENCOUNTER 2022-04-08 07:55 | Day surgery (SDC) | payer MEDICARE, MEDICAID, SELFPAY ==
[2022-04-08 08:02] VITALS: BP 184/109; PULSE 90; RESP 16; TEMP 36.3; O2SAT 97
[2022-04-08] MEDS: Lactated Ringers 1,000 ML 80 ML IV (09:20)
--- NOTE | 2022-04-08 11:44 | HPE_ITS ---
Date of service: 04/08/22 Time of Service: 11:44 Assessment and Plan Assessment and plan (1) Neurogenic bladder: Status: Acute Assessment and plan: He certainly is at risk for development of a urethral stricture. He could also have a bladder stone that is causing intermittent obstructive symptoms. We have recommended a cystoscopy. We will be prepared to do a urethral dilation should the stricture be identified. We will also be prepared to use the holmium laser to fragment any stones that are identified. We may need to leave an indwelling catheter for a few days to allow his urethra to heal from his procedure before restarting intermittent catheterization. History of Present Illness History of Present Illness Chief Complaint: Urinary retention Narrative: This is a 56-year-old gentleman who has a history of a neurogenic bladder.? He is maintained with intermittent catheterization 4 times a day. He has had recurrent urinary tract infections.? He is not always symptomatic when his urine cultures have been positive.? His most recent infection was due to Klebsiella. He does have a history of kidney stones, but has never required surgery for stone disease. Catheterizations are performed by the patient's caregivers and parents.? When his parents and caregivers catheterize Hollis, they are meeting more and more resistance.? They are concerned that he may have about a urethral stricture. There seem to be two separate areas of resistance.? The first is toward the meatus.? The second area feels like it is at the bladder neck.? There have been episodes when Hollis has? of blood in his undershorts, usually after a difficult catheterization.? Hollis presents for cystoscopy with urethral dilation (should a stricture be identified) and holmium laser lithotripsy (should a bladder stone be identified). Review of Systems Unobtainable due to mental condition [facility] All Active Problems Sepsis (Acute) Complicated UTI (urinary tract infection) (Acute) Community acquired pneumonia (Acute) DVT prophylaxis (Acute) Urinary catheter insertion/adjustment/removal (Acute) Diarrhea (Acute) Neurogenic bladder (Acute) Discharge planning issues (Acute) Bacteremia (Acute) Medical History Developmental non-verbal disorder Meningioma Neurofibromatosis 2 Urinary retention Wheelchair dependent 2 assist Surgical History S/P craniotomy S/P FORMULATION SCIENTIST shunt Social History Smoking/Tobacco Use Status: Never Smoking risk assessment performed?: Yes Alcohol Intake: never Drug use: Never Substance use type: does not use Caregiver/Support person: Yes (parents are primary caretakers) Household members: family Do you feel safe at home: Yes Additional Social history: Pt wiggled eyebrows to state he feels safe stated by howard, guardian, not able to assess privately Meds Allergies and Home Medications Allergies Allergy/AdvReac Type Severity Reaction Status Date / Time carbamazepine [From Tegretol] Allergy Unknown Unverified 04/08/22 08:16 gabapentin [From Neurontin] Allergy Unknown Unverified 04/08/22 08:16 risperidone [From Risperdal] Allergy Unknown Unverified 04/08/22 08:16 Sulfa (Sulfonamide Allergy Unknown Unverified 04/08/22 08:16 Antibiotics) Home Medications Medication Instructions Recorded Confirmed Type polyethylene glycol 3350 17 17 g PO DAILY 08/25/15 04/08/22 History gram/dose oral powder (GlycoLax) bisacodyl 10 mg rectal suppository 10 mg [place] DAILY 04/26/19 04/08/22 History (Dulcolax (bisacodyl)) cholecalciferol (vitamin D3) 25 1 unit PO DAILY 04/26/19 04/08/22 History mcg (1,000 unit) capsule (Vitamin D3) lorazepam 1 mg tablet 1 mg PO TID PRN 04/26/19 04/08/22 History L. acidophilus,casei,rhamnosus 50 1 cap PO DAILY #30 caps 05/07/19 04/08/22 Rx billion cell capsule,delayed release (Bio-K plus) lilhvqfeu-rliF-ynhtxcd-FOS-bromelain 188 mg (15 mL) PO BID infection 04/11/20 04/08/22 Rx 1,937 mg-188 mg/15 mL oral liquid prevention #225 mL surgical lubricant jelly 1 applic topical QID #56.7 grams 04/11/20 04/08/22 Rx (Surgilube topical gel) clotrimazole 1 % topical cream 1 applic topical TID PRN PRN rash 04/27/21 04/08/22 Rx #60 grams potassium citrate 10 mEq (1,080 10 meq PO BID #60 tabs 03/29/22 04/08/22 Rx mg) tablet,extended release multivitamin 1 tab PO DAILY 04/06/22 04/08/22 History Exam Narrative Exam Narrative: He appears comfortable. He does not appear septic or toxic His vital signs are documented elsewhere His chest wall motion is normal. His lungs are clear His cardiac exam shows a regular rate and rhythm His abdomen is soft with no mass He is awake and alert but not verbal Results Last Vital Signs Temp 36.3 C L 04/08/22 08:02 Pulse 90 04/08/22 08:02 Resp 16 04/08/22 08:02 BP 184/109 H 04/08/22 08:02 Pulse Ox 97 04/08/22 08:02
--- NOTE | 2022-04-08 11:47 | W.ANESPRE ---
General Info Date of Service Date Performed: 04/08/22 Height: 5 ft 8 in Weight: 68.039 kg Body Mass Index (BMI): 22.8 Surgical Procedure: Operation Date: 04/08/22 11:10 Proposed Procedure Side Surgeon p Cystoscopy/Possible Laser/Possible Dilation Joey House MD Meds Allergies and Home Medications Allergies Allergy/AdvReac Type Severity Reaction Status Date / Time carbamazepine [From Tegretol] Allergy Unknown Unverified 04/08/22 08:16 gabapentin [From Neurontin] Allergy Unknown Unverified 04/08/22 08:16 risperidone [From Risperdal] Allergy Unknown Unverified 04/08/22 08:16 Sulfa (Sulfonamide Allergy Unknown Unverified 04/08/22 08:16 Antibiotics) Home Medication Medication Instructions Recorded polyethylene glycol 3350 17 17 g PO DAILY 08/25/15 gram/dose oral powder (GlycoLax) bisacodyl 10 mg rectal suppository 10 mg [place] DAILY 04/26/19 (Dulcolax (bisacodyl)) cholecalciferol (vitamin D3) 25 1 unit PO DAILY 04/26/19 mcg (1,000 unit) capsule (Vitamin D3) lorazepam 1 mg tablet 1 mg PO TID PRN 04/26/19 L. acidophilus,casei,rhamnosus 50 1 cap PO DAILY #30 caps 05/07/19 billion cell capsule,delayed release (Bio-K plus) dwcxppfuz-ibcW-kfadyjx-FOS-bromelain 188 mg (15 mL) PO BID infection 04/11/20 1,937 mg-188 mg/15 mL oral liquid prevention #225 mL surgical lubricant jelly 1 applic topical QID #56.7 grams 04/11/20 (Surgilube topical gel) clotrimazole 1 % topical cream 1 applic topical TID PRN PRN rash 04/27/21 #60 grams potassium citrate 10 mEq (1,080 10 meq PO BID #60 tabs 03/29/22 mg) tablet,extended release multivitamin 1 tab PO DAILY 04/06/22 Current Visit Medications: Current Medications Generic Name Dose Route Start Last Admin Trade Name Freq PRN Reason Stop Dose Admin Ringer's Solution 1,000 mls @ 80 mls/hr 04/08/22 06:00 04/08/22 09:20 IV 05/07/22 23:59 80 mls/hr INFUSION TONG Administration Cefazolin Sodium/Dextrose 2 gm in 50 mls @ 100 mls/hr 04/08/22 06:00 Ancef Duplex IVPB 05/07/22 23:59 PREOP TONG IV Miscellaneous Supplies 1 each 04/08/22 06:00 Iv Access IV 05/07/22 23:59 DIRECTED OTNG Sodium Chloride 0 ml 04/08/22 06:00 Normal Saline Flush 10 Ml Syr IV 05/07/22 23:59 PRN PRN Sodium Chloride 0 ml 04/08/22 06:00 Normal Saline 10 Ml Vial IJ 05/07/22 23:59 DIRECTED PRN Sterile Water 0 ml 04/08/22 06:00 Water,Injection,Sterile 10 Ml Vial IJ 05/07/22 23:59 DIRECTED PRN PFSH Active Problems Active Problems: Problem Status Onset Code Sepsis A41.9 Complicated UTI (urinary tract infection) N39.0 Community acquired pneumonia J18.9 DVT prophylaxis Z29.9 Urinary catheter insertion/adjustment/removal Z46.6 Diarrhea R19.7 Neurogenic bladder N31.9 Discharge planning issues Z02.9 Bacteremia R78.81 Medical History Medical History Developmental non-verbal disorder Meningioma Neurofibromatosis 2 Urinary retention Wheelchair dependent 2 assist Surgical History Surgical History S/P craniotomy 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 Tobacco Smoking/Tobacco Use Status: Never Alcohol Alcohol Intake: never Substance Use Substance use: Never Substance use type: does not use Vital Signs and Lab Results Vital Signs Most Recent Vital Signs in EMR: Most Recent Vital Signs Temp Pulse Resp BP Pulse Ox 36.3 C L 90 16 184/109 H 97 04/08/22 08:02 04/08/22 08:02 04/08/22 08:02 04/08/22 08:02 04/08/22 08:02 Lab Results Blood Type / Crossmatch: No Data to Display Complete Blood Count: No Data to Display Complete Metabolic Panel: No Data to Display Liver Function Panel: No Data to Display Coagulation Panel: No Data to Display Cardiac Panel: No Data to Display Arterial Blood Gas: No Data to Display Venous Blood Gas: No Data to Display Pancreas Panel: No Data to Display Thyroid Panel: No Data to Display Infectious Disease: Coronavirus (COVID-19)(PCR) Negative (Negative) 04/06/22 13:40 Coronavirus 2019 Source Nasal/Nares 04/06/22 13:40 Blood Cultures: No Data to Display Toxicology Panel: No Data to Display Anesthesia Assessment and Plan Anesthesia History Personal History: No History of Anesthesia Complications Family History: No Family History of Anesthesia Complications Exercise Tolerance Exercise Tolerance: Metabolic Equivalents<4 Pertinent Negatives Pertinent Negatives: No Symptoms of GERD, No Major Cardiovascular Symptoms or Complaints, No Major Pulmonary Symptoms or Complaints and No History of CVA/TIA Cardiac & Pulmonary Exam Cardiac Exam: Normal S1/S2 Heart Sounds Pulmonary Exam: Clear Bilateral Breath Sounds Implantable Cardiac Device Does patient have a Pacemaker or an ICD?: No Airway Exam Known Difficult Airway: No Mallampati Class: Unable to Assess Mouth Opening: Unable to Assess Thyromental Distance: Greater than 3 cm Neck Range of Motion: Full ROM Neck Circumference: Normal Teeth Condition: Edentulous ASA Classification ASA Score: ASA 2 Emergency Case?: No NPO Status NPO Status: NPO Clears >2 hours, Solids >8 hours Anesthesia Plan Resuscitation Status: Full Code Anesthesia Technique: General Anesthesia Airway Planned: Natural Airway Monitors Used: Standard Monitors
[2022-04-08 11:51] VITALS: BMI 22.8
[2022-04-08] MEDS: ceFAZolin 2 GM/50 ML BAG IVPB (12:37)
[2022-04-08] MEDS: Lidocaine 2% Jelly 6 ML SYR (12:59)
--- NOTE | 2022-04-08 13:05 | W.PM.DSUDISC ---
Discharge Plan Disposition Patient Disposition: HOME Condition: Good Discharge Details Reason For Visit: urethral stricture Attending Provider: Joey House Primary Care Provider: Dimas Lau Home Meds and New Rx's Prescriptions: No Action multivitamin Tablet 1 tab PO DAILY clotrimazole 1 % cream 1 applic topical TID PRN PRN (Reason: rash) Qty: 60 0RF polyethylene glycol 3350 [GlycoLax] 527 GM powder 17 g PO DAILY bpzt-yuyE-fchpbso-FOS-bromeln 1,937-188 mg/15 mL liquid 188 mg PO BID Qty: 225 12RF Surgilube Gel 1 applic TP QID Qty: 56.7 12RF potassium citrate 10 mEq (1,080 mg) tablet extended release 10 meq PO BID Qty: 60 6RF bisacodyl [Dulcolax (bisacodyl)] 10 mg Suppository 10 mg [place] DAILY lorazepam 1 mg Tablet 1 mg PO TID PRN cholecalciferol (vitamin D3) [Vitamin D3] 1,000 unit Capsule 1 unit PO DAILY Bio-K plus 50 billion cell Capsule,Delayed Release(Dr/Ec) 1 cap PO DAILY Qty: 30 0RF Label Comments: Pt's mom states she now uses yogurt instead of the probiotic.HE Discharge Instructions Additional Instructions: lyles to gravity ask pt's caregivers to remove catheter and resume CIC in 3 to 5 days no followup appt but ask caregivers to call next week with a progress report Activity:: Activity as Tolerated Shower/Bathe:: 24 hours Diet:: As Tolerated Discharge Orders Discharge Orders: Discharge Order (Routine); Ordered 04/08/22 Ordered By: Joey House DS: Diagnosis Discharge Diagnosis (1) Neurogenic bladder: Status: Acute
--- NOTE | 2022-04-08 13:08 | W.PM.OP ---
Date of service: 04/08/22 Time of Service: 13:08 Operative Note Operative Note DATE OF PROCEDURE: 04/08/22 PRE-OP DIAGNOSIS: Urethral stricture POST-OP DIAGNOSIS: same elevated bladder neck PROCEDURE: cystoscopy with urethral dilation and insertion of lyles catheter SURGEON: Joey House ANESTHESIA TYPE: General:No Airway Refer to Anesthesia Record ESTIMATED BLOOD LOSS: 5 PATHOLOGY: none sent COMPLICATIONS: None Implants: 18 [place] [employer] tipped catheter with 10 cc sterile water in balloon Indications: This is a 56-year-old gentleman who has a history of a neurogenic bladder. His voiding symptoms are managed with intermittent catheterization 4 times a day. He is catheterized by his caregiver and family members. His providers have noticed that it is becoming more more difficult to catheterize the patient. There is seem to be 2 discrete areas of resistance when passing a catheter. The first is out toward the urethral meatus and the second is in toward the patient's bladder neck. He presents for cystoscopy with possible urethral dilation. We will also have the holmium laser fiber available to fragment a stone in the urethra or bladder should we see 1. Findings: 1. Urethral stricture stent just inside urethral meatus 2. Elevated bladder neck Procedure Description: Hollis was brought to the operating room on 04/08/2022. He was given general anesthesia without intubation. He was given a dose of IV antibiotics. His genitalia was prepped and draped. 2% Xylocaine jelly was instilled into the urethra to act as a local anesthetic. A 17 [place]an cystoscope was passed through the urethra into the bladder. The urethra and bladder were inspected with a 30 degree lens. Just within the urethral meatus, there was a narrowing encountered when we passed the cystoscope. The scope could be forced to the area with some resistance. The remainder of the pendulous, membranous and bulbous urethra all appeared normal. The prostatic urethra showed no strictures or lesions, but the bladder did seem a bit more elevated than would be expected. I was then able to enter the bladder and visualize the bladder mucosa. No papillary or nodular lesions were seen. No stones were seen within the bladder or urethra. I then passed the stiff Glidewire through the lumen of the cystoscope. We removed the cystoscope leaving the wire in place. We then dilated the urethra using [employer] dilators. We passed dilators from a size 16 [place]an up to 20 [place]. Once the urethra had been dilated, we passed an 18 [place]olla tip catheter over the guidewire. We advanced the catheter through the urethra into the bladder. The catheter balloon was inflated with 10 cc of sterile water. The catheter was hooked to gravity drainage. The guidewire was removed. The patient tolerated the procedure well with no complications. We will plan on leaving the indwelling catheter for approximately 5 days. His caregivers can remove the catheter at home. They can then resume intermittent catheterization using their 14 [place]an catheters. He was taken back to the day surgery unit in stable condition.
[2022-04-08 13:19] VITALS: BP 103/71; PULSE 61; RESP 13; TEMP 36.1; O2SAT 98
--- NOTE | 2022-04-08 13:33 | W.ANESPOSTOP ---
Postoperative Evaluation Date, Time and Location Date Performed: 04/08/22 Time Performed: 13:34 Patient Location: Day Surgery Unit Vital Signs Most Recent Imported Vital Signs: Most Recent Vital Signs Temp Pulse Resp BP Pulse Ox 36.1 C L 61 13 103/71 98 04/08/22 13:19 04/08/22 13:19 04/08/22 13:19 04/08/22 13:19 04/08/22 13:19 Pain Score Most Recent Pain Score: Most Recent Pain Score Pain Level 0 04/08/22 13:19 Assessment Mental Status: Awake (Alert & Oriented to Patient Baseline) Airway and Respiratory Function: Patent airway with normal (patient baseline) respiratory exam Cardiovascular Function: Hemodynamically Stable Hydration Status: Adequately Hydrated Nausea & Vomiting: No Nausea or Vomiting Pain: Pt. Denies Any Pain Peripheral Nerve Block: Patient did not receive a nerve block
[2022-04-08 13:53] VITALS: BP 115/76; PULSE 64; RESP 18; TEMP 37; O2SAT 95
[2022-04-08 14:20] VITALS: BP 162/89; PULSE 69; RESP 16; TEMP 37; O2SAT 99
== END 2022-04-08 15:05 | disposition home or self-care (01) ==
PROVIDERS: PCP Internal Medicine; Visit Provider Urology
PROC: (CPT 52281; principal; 2022-04-08 11:00)
DX: N31.9 Neuromuscular dysfunction of bladder, unspecified (principal); Q85.02 Neurofibromatosis, type 2
CPT/HCPCS: 52281; J0690; J2250

== ENCOUNTER 2022-04-21 19:06 | Outpatient (REF) | payer MEDICARE, MEDICAID, SELFPAY ==
[2022-04-21 10:35] LABS: Bilirubin Negative (Negative); Blood Trace-intact (Negative); Clarity Sl Cloudy (Clear); Glucose Negative (Negative); Ketones Negative (Negative); Leukocyte Esterase Small (Negative); Nitrite Negative (Negative); Specific Gravity 1.025 (1.005-1.025); Urobilinogen 0.2 EU/dL (Up TO 0.2)
[2022-04-21 10:53] LABS: Bacteria Rare HPF (Negative); C & S Indicated? C&S Done As Ordered; Casts Negative LPF (Negative); Crystals Negative HPF (Negative); Epithelial Cells Rare HPF (Negative); Mucus Negative (Negative); RBC 0-2 HPF (0-2); WBC 20-50 HPF (0-5)
== END 2022-04-21 19:07 | disposition home or self-care (01) ==
LOC: NCHCN 19:06
PROVIDERS: PCP Internal Medicine; Visit Provider Internal Medicine
DX: N39.0 Urinary tract infection, site not specified (principal)
CPT/HCPCS: 81003; 81015; 87086

== ENCOUNTER 2022-04-26 16:16 | Outpatient (REF) | payer MEDICARE, MEDICAID, SELFPAY ==
[2022-04-26 20:57] LABS: Bilirubin Negative (Negative); Blood Moderate (Negative); Glucose 100 mg/dL (Negative); Ketones 15 mg/dL (Negative); Leukocyte Esterase Small (Negative); Nitrite Negative (Negative); Urobilinogen 0.2 EU/dL (Up TO 0.2)
[2022-04-26 21:02] LABS: Clarity Sl Cloudy (Clear)
[2022-04-26 21:08] LABS: RBC >50 HPF (0-2); WBC >50 HPF (0-5)
[2022-04-26 21:09] LABS: Bacteria Many HPF (Negative); C & S Indicated? C&S Done As Ordered; Casts Negative LPF (Negative); Crystals Negative HPF (Negative); Epithelial Cells Negative HPF (Negative); Mucus Negative (Negative)
== END 2022-04-26 16:17 | disposition home or self-care (01) ==
LOC: LBN 16:16
PROVIDERS: PCP Internal Medicine; Visit Provider Internal Medicine
DX: N39.0 Urinary tract infection, site not specified (principal)
CPT/HCPCS: 87077; 81003; 81015; 87086; 87186

== ENCOUNTER 2022-06-02 16:22 | Outpatient (REF) | payer MEDICARE, MEDICAID, SELFPAY ==
[2022-06-02 14:17] LABS: Bilirubin Negative (Negative); Blood Trace-intact (Negative); Clarity Clear (Clear); Glucose Negative (Negative); Ketones Negative (Negative); Leukocyte Esterase Trace (Negative); Nitrite Negative (Negative); Specific Gravity >= 1.030 (1.005-1.025); Urobilinogen 0.2 EU/dL (Up TO 0.2)
[2022-06-02 14:50] LABS: Bacteria Few HPF (Negative); Epithelial Cells Rare HPF (Negative); Other Cells Negative (Negative)
[2022-06-02 14:51] LABS: C & S Indicated? C&S Done As Ordered; Casts Negative LPF (Negative); Crystals Negative HPF (Negative); Mucus Negative (Negative)
== END 2022-06-02 16:23 | disposition home or self-care (01) ==
LOC: NCHCN 16:22
PROVIDERS: PCP Internal Medicine; Visit Provider Internal Medicine
DX: N39.0 Urinary tract infection, site not specified (principal)
CPT/HCPCS: 87077; 81003; 81015; 87086; 87186

== ENCOUNTER 2022-07-22 16:39 | Outpatient (REF) | payer MEDICARE, MEDICAID, SELFPAY ==
[2022-07-22 16:44] LABS: Bilirubin Negative (Negative); Blood Small (Negative); Clarity Cloudy (Clear); Glucose Negative (Negative); Ketones Negative (Negative); Leukocyte Esterase Small (Negative); Nitrite Positive (Negative); Specific Gravity 1.025 (1.005-1.025); Urobilinogen 0.2 EU/dL (Up TO 0.2)
[2022-07-22 16:51] LABS: WBC >50 HPF (0-5)
[2022-07-22 16:52] LABS: Bacteria Rare HPF (Negative); C & S Indicated? C&S Done As Ordered; Casts Negative LPF (Negative); Crystals Negative HPF (Negative); Epithelial Cells Rare HPF (Negative); Mucus Negative (Negative)
== END 2022-07-22 16:40 | disposition home or self-care (01) ==
LOC: NCHCN 16:39
PROVIDERS: PCP Internal Medicine; Visit Provider Internal Medicine
DX: N39.0 Urinary tract infection, site not specified (principal)
CPT/HCPCS: 87077; 81003; 81015; 87086; 87186

== ENCOUNTER 2022-08-13 01:00 | Outpatient (CLI) | payer MEDICARE, MEDICAID, SELFPAY ==
--- NOTE | 2022-08-13 08:15 | DI.US_ITS ---
Exam(s) US RENAL EXAM: US RENAL CLINICAL HISTORY: ? hydronephrosis,NEUROGENIC BLADDER, N31.9. TECHNIQUE: Amor scale, color and spectral Doppler were used. COMPARISON: US US RENAL from 04/08/2021 FINDINGS: Renal size in cm: Right: 9.2 left: 9.6 Echogenicity: Normal Hydronephrosis: Mild dilatation of left renal pelvis and calices. Cyst or mass: No Nephrolithiasis: 4 millimeter stone lower pole right kidney. Bladder:Mild wall thickening and trabeculation. Prevoid vol:402 Postvoid vol:0 Prostate volume 36 cc. IMPRESSION: Mild left hydronephrosis. Mild bladder wall thickening and trabeculation. DATA REPOSITORY:
== END 2022-08-13 01:20 ==
LOC: DI 01:01
PROVIDERS: PCP Internal Medicine; Visit Provider Urology
DX: N31.9 Neuromuscular dysfunction of bladder, unspecified (principal); N20.0 Calculus of kidney; N13.30 Unspecified hydronephrosis; N32.89 Other specified disorders of bladder
CPT/HCPCS: 76770; 99214

== ENCOUNTER 2022-08-13 13:18 | Outpatient (REF) | payer MEDICARE, MEDICAID, SELFPAY ==
[2022-08-13 16:35] LABS: Bilirubin Negative (Negative); Blood Moderate (Negative); Clarity Cloudy (Clear); Glucose Negative (Negative); Ketones Negative (Negative); Leukocyte Esterase Moderate (Negative); Nitrite Positive (Negative); Specific Gravity >= 1.030 (1.005-1.025); Urobilinogen 0.2 EU/dL (Up TO 0.2)
[2022-08-13 16:42] LABS: Bacteria Few HPF (Negative); C & S Indicated? C&S Done As Ordered; Crystals Negative HPF (Negative); Epithelial Cells Rare HPF (Negative); Mucus Trace (Negative); RBC 0-2 HPF (0-2); WBC >50 HPF (0-5)
== END 2022-08-13 13:19 | disposition home or self-care (01) ==
LOC: NCHCN 13:18
PROVIDERS: PCP Internal Medicine; Visit Provider Internal Medicine
DX: N39.0 Urinary tract infection, site not specified (principal)
CPT/HCPCS: 87077; 81003; 81015; 87086; 87186

== ENCOUNTER 2022-08-13 15:19 | Outpatient (REF) | payer MEDICARE, MEDICAID, SELFPAY ==
[2022-08-13 16:14] LABS: Anion Gap 4.6 mmol/L (3-11); BUN 14 mg/dL (7-18); CO2 32.4 mmol/L (21.0-32.0); CREATININE 1.1 mg/dL (0.70-1.30); Calcium 8.9 mg/dL (8.5-10.1); Chloride 103 mmol/L (98-107); Glucose 92 mg/dL (74-106); Potassium 4.5 mmol/L (3.5-5.1); Sodium 140 mmol/L (136-145)
== END 2022-08-13 15:20 | disposition home or self-care (01) ==
LOC: LBN 15:19
PROVIDERS: PCP Internal Medicine; Visit Provider Urology
DX: N31.9 Neuromuscular dysfunction of bladder, unspecified (principal); Z87.440 Personal history of urinary (tract) infections
CPT/HCPCS: 80048

== ENCOUNTER → 2022-08-27 08:05 | Outpatient (BNVA) | payer MEDICARE, MEDICAID, SELFPAY | PROVIDERS: PCP Internal Medicine; Referring Provider Internal Medicine; Visit Provider Urology | DX: N31.9 Neuromuscular dysfunction of bladder, unspecified (principal) | CPT/HCPCS: 99441 ==

== ENCOUNTER 2022-10-20 13:31 | Outpatient (REF) | payer MEDICARE, MEDICAID, SELFPAY ==
[2022-10-20 14:11] LABS: Bilirubin Negative (Negative); Blood Moderate (Negative); Clarity Cloudy (Clear); Glucose Negative (Negative); Ketones Negative (Negative); Leukocyte Esterase Moderate (Negative); Nitrite Negative (Negative); Urobilinogen 0.2 mg/dL (Up to 0.2)
[2022-10-20 14:24] LABS: Bacteria Rare HPF (Negative); C & S Indicated? C&S Done As Ordered; Casts Negative LPF (Negative); Crystals Negative HPF (Negative); Epithelial Cells Rare HPF (Negative); Mucus Negative (Negative); WBC >50 HPF (0-5)
== END 2022-10-20 13:32 | disposition home or self-care (01) ==
LOC: NCHCN 13:31
PROVIDERS: PCP Internal Medicine; Visit Provider Internal Medicine
DX: N39.0 Urinary tract infection, site not specified (principal)
CPT/HCPCS: 81003; 81015; 87086

== ENCOUNTER 2022-11-17 17:25 | Outpatient (REF) | payer MEDICARE, MEDICAID, SELFPAY ==
[2022-11-17 12:21] LABS: Bilirubin Negative (Negative); Blood Moderate (Negative); Clarity Cloudy (Clear); Glucose Negative (Negative); Ketones Negative (Negative); Leukocyte Esterase Moderate (Negative); Nitrite Negative (Negative); Specific Gravity >= 1.030 (1.005-1.025); Urobilinogen 0.2 mg/dL (Up to 0.2)
[2022-11-17 12:29] LABS: C & S Indicated? C&S Done As Ordered; WBC >50 HPF (0-5)
== END 2022-11-17 17:26 | disposition home or self-care (01) ==
LOC: NCHCN 17:25
PROVIDERS: PCP Internal Medicine; Visit Provider Internal Medicine
DX: N39.0 Urinary tract infection, site not specified (principal)
CPT/HCPCS: 87077; 81003; 81015; 87086; 87186

== ENCOUNTER 2023-01-18 18:12 | Outpatient (REF) | payer MEDICARE, MEDICAID, SELFPAY ==
[2023-01-18 17:10] LABS: Bilirubin Negative (Negative); Blood Moderate (Negative); Clarity Sl Cloudy (Clear); Glucose Negative (Negative); Ketones Negative (Negative); Leukocyte Esterase Trace (Negative); Nitrite Negative (Negative); Urobilinogen 0.2 mg/dL (Up to 0.2)
[2023-01-18 17:22] LABS: Bacteria Few HPF (Negative); C & S Indicated? C&S Done As Ordered; Casts Negative LPF (Negative); Crystals Negative HPF (Negative); Epithelial Cells Few HPF (Negative); Mucus Trace (Negative)
== END 2023-01-18 18:13 | disposition home or self-care (01) ==
LOC: NCHCN 18:12
PROVIDERS: PCP Internal Medicine; Visit Provider Internal Medicine
DX: N39.0 Urinary tract infection, site not specified (principal)
CPT/HCPCS: 81003; 81015; 87086

== ENCOUNTER 2023-01-31 14:53 | Outpatient (REF) | payer MEDICARE, MEDICAID, SELFPAY ==
[2023-01-31 14:22] LABS: Bilirubin Negative (Negative); Blood Small (Negative); Clarity Cloudy (Clear); Glucose Negative (Negative); Ketones Negative (Negative); Leukocyte Esterase Moderate (Negative); Nitrite Positive (Negative); Urobilinogen 0.2 mg/dL (Up to 0.2)
[2023-01-31 14:58] LABS: Bacteria Many HPF (Negative); C & S Indicated? Yes; Casts Negative LPF (Negative); Crystals Negative HPF (Negative); Epithelial Cells Rare HPF (Negative); Mucus Negative (Negative); WBC >50 HPF (0-5)
== END 2023-01-31 14:54 | disposition home or self-care (01) ==
LOC: NCHCN 14:53
PROVIDERS: PCP Internal Medicine; Visit Provider Internal Medicine
DX: N39.0 Urinary tract infection, site not specified (principal)
CPT/HCPCS: 87077; 81003; 81015; 87086; 87186

== ENCOUNTER 2023-02-17 14:07 | Outpatient (REF) | payer MEDICARE, MEDICAID, SELFPAY ==
[2023-02-17 16:46] LABS: Bilirubin Negative (Negative); Blood Moderate (Negative); Clarity Sl Cloudy (Clear); Glucose Negative (Negative); Ketones Negative (Negative); Leukocyte Esterase Trace (Negative); Nitrite Positive (Negative); Urobilinogen 0.2 mg/dL (Up to 0.2)
[2023-02-17 16:53] LABS: Bacteria Many HPF (Negative); C & S Indicated? C&S Done As Ordered; Casts Negative LPF (Negative); Crystals Negative HPF (Negative); Epithelial Cells Rare HPF (Negative); Mucus Negative (Negative)
== END 2023-02-17 14:08 | disposition home or self-care (01) ==
LOC: NCHCN 14:07
PROVIDERS: PCP Internal Medicine; Visit Provider Internal Medicine
DX: N39.0 Urinary tract infection, site not specified (principal)
CPT/HCPCS: 87077; 81003; 81015; 87086; 87186

== ENCOUNTER → 2023-03-15 11:43 | Outpatient (BNVA) | payer MEDICARE, MEDICAID, SELFPAY | PROVIDERS: PCP Internal Medicine; Referring Provider Internal Medicine; Visit Provider Urology | DX: N31.9 Neuromuscular dysfunction of bladder, unspecified (principal) | CPT/HCPCS: 99442 ==

== ENCOUNTER 2023-03-15 18:42 | Outpatient (REF) | payer MEDICARE, MEDICAID, SELFPAY ==
[2023-03-16 07:51] LABS: Bilirubin Negative (Negative); Blood Small (Negative); Clarity Turbid (Clear); Glucose Negative (Negative); Ketones Negative (Negative); Leukocyte Esterase Large (Negative); Nitrite Positive (Negative); Urobilinogen 0.2 mg/dL (Up to 0.2); pH >= 9.0 (5-8)
[2023-03-16 07:58] LABS: WBC >50 HPF (0-5)
[2023-03-16 07:59] LABS: C & S Indicated? Yes
== END 2023-03-15 18:43 | disposition home or self-care (01) ==
LOC: NCHCN 18:42
PROVIDERS: PCP Internal Medicine; Visit Provider Internal Medicine
DX: N39.0 Urinary tract infection, site not specified (principal)
CPT/HCPCS: 87077; 81003; 81015; 87086; 87186

== ENCOUNTER 2023-04-25 08:01 | Day surgery (SDC) | payer MEDICARE, MEDICAID, SELFPAY ==
[2023-04-25] VITALS (7 sets, daily range): BP systolic 110–149; BP diastolic 64–77; PULSE 52–61; RESP 14–16; TEMP 35.9–36.5; O2SAT 95–100; BMI 22.8
[2023-04-25] MEDS: Lactated Ringers 1,000 ML 80 ML IV (08:51)
--- NOTE | 2023-04-25 09:07 | HPE_ITS ---
Date of service: 04/25/23 Time of Service: 09:07 Assessment and Plan Assessment and plan (1) Urethral stricture: Assessment and plan: We will plan to dilate the urethra again to allow easier intermittent catheterization. History of Present Illness History of Present Illness Chief Complaint: Urethral stricture Narrative: Chief complaint: Neurogenic bladder This is a 57-year-old gentleman who has a neurogenic bladder.? His caregivers perform intermittent catheterization. Previously, when catheterization became difficult, we identified 2 narrowings in the urethra.? The first was just within the urethral meatus.? The second area of concern was due to an elevated bladder neck.? We did cystoscopy and dilated the urethra.? following dilation, catheterization became much easier. His caregivers are again having difficulty catheterizing this gentleman. He presents for repeat dilation. Review of Systems Unobtainable due to mental status PFSH All Active Problems (Updated 04/25/23 @ 09:12 by Joey House MD) Sepsis (Acute) Complicated UTI (urinary tract infection) (Acute) Community acquired pneumonia (Acute) DVT prophylaxis (Acute) Urinary catheter insertion/adjustment/removal (Acute) Diarrhea (Acute) Neurogenic bladder (Acute) Discharge planning issues (Acute) Bacteremia (Acute) Medical History (Updated 04/25/23 @ 09:12 by Joey House MD) Developmental non-verbal disorder Meningioma Neurofibromatosis 2 Urethral stricture Urinary retention Wheelchair dependent 2 assist Surgical History S/P craniotomy 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 Social History Smoking/Tobacco Use Status: Never Smoking risk assessment performed?: Yes Alcohol Intake: never Drug use: Never Substance use type: does not use Caregiver/Support person: Yes (parents are primary caretakers) Household members: family Housing: house Additional Social history: not able to assess privately Meds Allergies and Home Medications Allergies Allergy/AdvReac Type Severity Reaction Status Date / Time carbamazepine [From Tegretol] Allergy Unknown Unknown Verified 04/25/23 08:20 gabapentin [From Neurontin] Allergy Unknown Unknown Verified 04/25/23 08:20 risperidone [From Risperdal] Allergy Unknown Unknown Verified 04/25/23 08:20 Sulfa (Sulfonamide AdvReac Mild Per pt. Verified 04/25/23 08:20 Antibiotics) mother causes stomach ache Home Medications Medication Instructions Recorded Confirmed Type polyethylene glycol 3350 17 17 g PO DAILY 08/25/15 04/21/23 History gram/dose oral powder (GlycoLax) bisacodyl 10 mg rectal suppository 10 mg [place] DAILY 04/26/19 04/21/23 History (Dulcolax (bisacodyl)) cholecalciferol (vitamin D3) 25 1 unit PO DAILY 04/26/19 04/25/23 History mcg (1,000 unit) capsule (Vitamin D3) lorazepam 1 mg tablet 1 mg PO TID PRN 04/26/19 04/25/23 History L. acidophilus,casei,rhamnosus 50 1 cap PO DAILY #30 caps 05/07/19 04/25/23 Rx billion cell capsule,delayed release (Bio-K plus) dcrzlpnwm-zphU-hnupbja-FOS-bromelain 188 mg (15 mL) PO BID infection 04/11/20 04/25/23 Rx 1,937 mg-188 mg/15 mL oral liquid prevention #225 mL surgical lubricant jelly 1 applic topical QID #56.7 grams 04/11/20 04/21/23 Rx (Surgilube topical gel) clotrimazole 1 % topical cream 1 applic topical TID PRN PRN rash 04/27/21 04/21/23 Rx #60 grams potassium citrate 10 mEq (1,080 10 meq PO BID #60 tabs 03/29/22 04/25/23 Rx mg) tablet,extended release multivitamin 1 tab PO DAILY 04/06/22 04/25/23 History cephalexin 500 mg capsule 500 mg PO TID #30 caps 04/05/23 04/25/23 Rx Exam Const General: no acute distress Resp Effort & Inspection: normal respiratory effort Auscultation: clear to auscultation bilaterally Cardio Rate: regular rate Rhythm: regular rhythm GI Palpation: soft and no masses Neuro General: patient alert and patient awake Results Last Vital Signs Temp 35.9 C L 04/25/23 08:11 Pulse 53 L 04/25/23 08:11 Resp 16 04/25/23 08:11 BP 149/77 H 04/25/23 08:11 Pulse Ox 95 04/25/23 08:11 Time Spent Time spent with Patient: <40 minutes Time was spent: other
--- NOTE | 2023-04-25 11:23 | W.ANESPRE ---
General Info Date of Service Date Performed: 04/25/23 Height: 5 ft 8 in Weight: 68 kg Body Mass Index (BMI): 22.8 Surgical Procedure: Operation Date: 04/25/23 10:55 Proposed Procedure Side Surgeon p Cystoscopy/Urethral Dilation Joey House MD Actual Procedure Side Surgeon p Cystoscopy/Urethral Dilation Not Applicable Joey House MD Meds Allergies and Home Medications Allergies Allergy/AdvReac Type Severity Reaction Status Date / Time carbamazepine [From Tegretol] Allergy Unknown Unknown Verified 04/25/23 08:20 gabapentin [From Neurontin] Allergy Unknown Unknown Verified 04/25/23 08:20 risperidone [From Risperdal] Allergy Unknown Unknown Verified 04/25/23 08:20 Sulfa (Sulfonamide AdvReac Mild Per pt. Verified 04/25/23 08:20 Antibiotics) mother causes stomach ache Home Medication Medication Instructions Recorded polyethylene glycol 3350 17 17 g PO DAILY 08/25/15 gram/dose oral powder (GlycoLax) bisacodyl 10 mg rectal suppository 10 mg [place] DAILY 04/26/19 (Dulcolax (bisacodyl)) cholecalciferol (vitamin D3) 25 1 unit PO DAILY 04/26/19 mcg (1,000 unit) capsule (Vitamin D3) lorazepam 1 mg tablet 1 mg PO TID PRN 04/26/19 L. acidophilus,casei,rhamnosus 50 1 cap PO DAILY #30 caps 05/07/19 billion cell capsule,delayed release (Bio-K plus) ounmqbujd-jwbZ-gqlxehf-FOS-bromelain 188 mg (15 mL) PO BID infection 04/11/20 1,937 mg-188 mg/15 mL oral liquid prevention #225 mL surgical lubricant jelly 1 applic topical QID #56.7 grams 04/11/20 (Surgilube topical gel) clotrimazole 1 % topical cream 1 applic topical TID PRN PRN rash 04/27/21 #60 grams potassium citrate 10 mEq (1,080 10 meq PO BID #60 tabs 03/29/22 mg) tablet,extended release multivitamin 1 tab PO DAILY 04/06/22 cephalexin 500 mg capsule 500 mg PO TID #30 caps 04/05/23 Current Visit Medications: Current Medications Generic Name Dose Route Start Last Admin Trade Name Freq PRN Reason Stop Dose Admin Ringer's Solution 1,000 mls @ 80 mls/hr 04/25/23 06:00 04/25/23 08:51 IV 05/22/23 23:59 80 mls/hr INFUSION TONG Administration Ceftriaxone Sodium/Dextrose 1 gm in 50 mls @ 100 mls/hr 04/25/23 06:00 Rocephin IVPB 04/25/23 16:00 PREOP TONG IV Miscellaneous Supplies 1 each 04/25/23 06:00 Iv Access IV 05/22/23 23:59 DIRECTED TONG Sodium Chloride 0 ml 04/25/23 06:00 Normal Saline Flush 10 Ml Syr IV 05/22/23 23:59 PRN PRN Sodium Chloride 0 ml 04/25/23 06:00 Normal Saline 10 Ml Vial IJ 05/22/23 23:59 DIRECTED PRN Sterile Water 0 ml 04/25/23 06:00 Water,Injection,Sterile 10 Ml Vial IJ 05/22/23 23:59 DIRECTED PRN PFSH Active Problems Active Problems: Problem Status Onset Code Sepsis A41.9 Complicated UTI (urinary tract infection) N39.0 Community acquired pneumonia J18.9 DVT prophylaxis Z29.9 Urinary catheter insertion/adjustment/removal Z46.6 Diarrhea R19.7 Neurogenic bladder N31.9 Discharge planning issues Z02.9 Bacteremia R78.81 Medical History Medical History (Updated 04/25/23 @ 09:12 by Joey House MD) Developmental non-verbal disorder Meningioma Neurofibromatosis 2 Urethral stricture Urinary retention Wheelchair dependent 2 assist Surgical History Surgical History S/P craniotomy 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 Tobacco Smoking/Tobacco Use Status: Never Alcohol Alcohol Intake: never Substance Use Substance use: Never Substance use type: does not use Vital Signs and Lab Results Vital Signs Most Recent Vital Signs in EMR: Most Recent Vital Signs Temp Pulse Resp BP Pulse Ox 35.9 C L 53 L 16 149/77 H 95 04/25/23 08:11 04/25/23 08:11 04/25/23 08:11 04/25/23 08:11 04/25/23 08:11 Lab Results Blood Type / Crossmatch: No Data to Display Complete Blood Count: No Data to Display Complete Metabolic Panel: No Data to Display Liver Function Panel: No Data to Display Coagulation Panel: No Data to Display Cardiac Panel: No Data to Display Arterial Blood Gas: No Data to Display Venous Blood Gas: No Data to Display Pancreas Panel: No Data to Display Thyroid Panel: No Data to Display Infectious Disease: No Data to Display Blood Cultures: No Data to Display Toxicology Panel: No Data to Display Imaging and Studies Imaging and Studies Study information below may be from another EMR and interpreted by another provider. Please see original notes in EMR for more complete details. Echocardiogram Summary: Date of study: 04/30/2019 Transthoracic Echocardiography M-mode, complete 2D, complete spectral Doppler, and color Doppler *STUDY CONCLUSIONS* Summary: 1. Left ventricle: The cavity size was normal. Systolic function was normal. The estimated ejection fraction was 60-65%. Diastolic parameters were normal. There was no evidence of elevated ventricular filling pressure by Doppler parameters. 2. Aortic valve: There was mild to moderate regurgitation. 3. Right ventricle: The cavity size was normal. Wall thickness was normal. Systolic function was normal. 4. Pulmonary arteries: Systolic pressure could not be accurately estimated. 5. Inferior vena cava: Poorly visualized. Anesthesia Assessment and Plan Anesthesia History Personal History: No History of Anesthesia Complications Family History: No Family History of Anesthesia Complications Exercise Tolerance Exercise Tolerance: Metabolic Equivalents<4 Pertinent Negatives Pertinent Negatives: No Symptoms of GERD, No Major Cardiovascular Symptoms or Complaints and No Major Pulmonary Symptoms or Complaints Cardiac & Pulmonary Exam Cardiac Exam: Normal S1/S2 Heart Sounds Pulmonary Exam: Clear Bilateral Breath Sounds Implantable Cardiac Device Does patient have a Pacemaker or an ICD?: No Airway Exam Known Difficult Airway: No Mallampati Class: Unable to Assess Mouth Opening: Unable to Assess Thyromental Distance: Greater than 3 cm Neck Range of Motion: Full ROM Neck Circumference: Normal Teeth Condition: Edentulous ASA Classification ASA Score: ASA 3 Emergency Case?: No NPO Status NPO Status: NPO Clears >2 hours, Solids >8 hours Anesthesia Plan Resuscitation Status: Full Code Anesthesia Technique: General Anesthesia Airway Planned: Natural Airway Monitors Used: Standard Monitors
[2023-04-25] MEDS: cefTRIAXone 1 GM/50 ML BAG IVPB (11:39)
--- NOTE | 2023-04-25 12:10 | W.PM.DSUDISC ---
Date of service: 04/25/23 Time of Service: 12:10 Discharge Plan Disposition Patient Disposition: Home Condition: Stable Discharge Details Reason For Visit: cystoscopy with urethral dilation Attending Provider: Joey House Primary Care Provider: Dimas Lau Home Meds and New Rx's Prescriptions: No Action multivitamin Tablet 1 tab PO DAILY clotrimazole 1 % cream 1 applic topical TID PRN PRN (Reason: rash) Qty: 60 0RF polyethylene glycol 3350 [GlycoLax] 527 GM powder 17 g PO DAILY pcat-ckwU-qoqoojo-FOS-bromeln 1,937-188 mg/15 mL liquid 188 mg PO BID Qty: 225 12RF Surgilube Gel 1 applic TP QID Qty: 56.7 12RF potassium citrate 10 mEq (1,080 mg) tablet extended release 10 meq PO BID Qty: 60 6RF cephalexin 500 mg capsule 500 mg PO TID Qty: 30 0RF bisacodyl [Dulcolax (bisacodyl)] 10 mg Suppository 10 mg [place] DAILY lorazepam 1 mg Tablet 1 mg PO TID PRN cholecalciferol (vitamin D3) [Vitamin D3] 1,000 unit Capsule 1 unit PO DAILY Bio-K plus 50 billion cell Capsule,Delayed Release(Dr/Ec) 1 cap PO DAILY Qty: 30 0RF Patient Comments: Pt's mom states she now uses yogurt instead of the probiotic.HE Discharge Instructions Additional Instructions: lyles to drainage bag (either leg bag or large drainage bag) lyles catheter removal in 5 to 7 days Activity:: Activity as Tolerated Shower/Bathe:: 24 hours Diet:: As Tolerated Discharge Orders Discharge Orders: Discharge Order (Routine); Ordered 04/25/23 Ordered By: Joey House DS: Diagnosis Discharge Diagnosis (1) Urethral stricture:
--- NOTE | 2023-04-25 12:14 | W.PM.OP ---
Date of service: 04/25/23 Time of Service: 12:14 Operative Note Operative Note DATE OF PROCEDURE: 04/25/23 PRE-OP DIAGNOSIS: Urethral stricture POST-OP DIAGNOSIS: same PROCEDURE: cystoscopy with urethral dilation SURGEON: Joey House ANESTHESIA TYPE: Local By Surgeon and General LMA/ETT Refer to Anesthesia Record ESTIMATED BLOOD LOSS: 10 PATHOLOGY: none sent COMPLICATIONS: None Patient was transported to: PACU Patient's condition: stable Implants: 18 Salv[place] tipped catheter with 10 cc sterile water in balloon Indications: This is a 57-year-old gentleman who has a history of a neurogenic bladder. His caregivers perform CIC on this gentleman an average of 4 times a day. He has had urethral stricture disease and it is becoming more more difficult to pass a catheter in this gentleman. He presents for cystoscopy and urethral dilation. Findings: Two areas of narrowing in the urethra -one just within the urethral meatus and the second at the bladder neck. Procedure Description: The patient was brought to the operating room on 04/25/2023. He was given preoperative IV antibiotics. After successful induction of general anesthesia, he was placed in the dorsal lithotomy position. His genitalia was prepped and draped. 2% Xylocaine jelly was instilled into the urethra to act as a local anesthetic. A 22 Salvadorean rigid cystoscope was passed into the urethral meatus. Within the first 2 cm, we encountered a narrowed area that would not accommodate the cystoscope. I passed a guidewire down through the cystoscope into the lumen of the strictured area. I was then able to advance the wire further in the urethra. I dilated the urethral narrowing up to a size 24 Salvadorean over the wire. The wire was left in place and cystoscopy was again performed. The distal urethral stricture was well dilated. There was also a narrowing at the bladder neck that could be dilated using the cystoscope itself. Once the bladder neck was entered, I passed a new guidewire through the lumen of the cystoscope and I was able to visualize the wire within the bladder. The scope was removed and an 18 Salvadorean douglas tip catheter was passed over the wire through the urethra into the bladder. The catheter balloon was inflated with 10 cc of sterile water. The catheter was hooked to gravity drainage. The patient tolerated this procedure well with no complications. He was taken to the recovery room in stable condition. We will plan to leave his indwelling catheter for approximately 5 to 7 days. We should then be able to resume CIC.
[2023-04-25] MEDS: Lidocaine 2% Jelly 6 ML SYR (12:16)
--- NOTE | 2023-04-25 12:31 | W.ANESPOSTOP ---
Postoperative Evaluation Date, Time and Location Date Performed: 04/25/23 Time Performed: 12:31 Patient Location: Day Surgery Unit Vital Signs Most Recent Imported Vital Signs: Most Recent Vital Signs Temp Pulse Resp BP Pulse Ox 36.2 C L 61 15 121/64 97 04/25/23 12:12 04/25/23 12:17 04/25/23 12:17 04/25/23 12:17 04/25/23 12:17 Pain Score Most Recent Pain Score: Most Recent Pain Score Pain Level 0 04/25/23 12:17 Assessment Mental Status: Awake (Alert & Oriented to Patient Baseline) Airway and Respiratory Function: Patent airway with normal (patient baseline) respiratory exam Cardiovascular Function: Hemodynamically Stable Hydration Status: Adequately Hydrated Nausea & Vomiting: No Nausea or Vomiting Pain: Pt. Denies Any Pain Peripheral Nerve Block: Patient did not receive a nerve block
== END 2023-04-25 14:20 | disposition home or self-care (01) ==
PROVIDERS: PCP Internal Medicine; Visit Provider Urology
PROC: 0T7D8ZZ Dilation of Urethra, Via Natural or Artificial Opening Endoscopic (ICD-10-PCS; CPT 52281; principal; 2023-04-25 10:45)
DX: N35.919 Unspecified urethral stricture, male, unspecified site (principal); Q85.02 Neurofibromatosis, type 2; Z99.3 Dependence on wheelchair
CPT/HCPCS: 52281; J0696; J1885; J2405

== ENCOUNTER 2023-05-01 10:59 | Emergency (ER) | payer MEDICARE, MEDICAID, SELFPAY ==
[2023-05-01 11:03] VITALS: BP 142/125; PULSE 58; RESP 20; O2SAT 97
--- NOTE | 2023-05-01 11:30 | ED.GENADUL_ITS ---
Discharge Plan Disposition Patient Disposition: Home Condition: Good Discharge Details Clinical Impression: Urinary catheter insertion/adjustment/removal, Urinary retention Primary Care Provider: Dimas Lau ED Provider: Chelsey Olmedo Home Meds and New Rx's Prescriptions: No Action multivitamin Tablet 1 tab PO DAILY clotrimazole 1 % cream 1 applic topical TID PRN PRN (Reason: rash) Qty: 60 0RF polyethylene glycol 3350 [GlycoLax] 527 GM powder 17 g PO DAILY chtt-xqlM-xefaswa-FOS-bromeln 1,937-188 mg/15 mL liquid 188 mg PO BID Qty: 225 12RF Surgilube Gel 1 applic TP QID Qty: 56.7 12RF potassium citrate 10 mEq (1,080 mg) tablet extended release 10 meq PO BID Qty: 60 6RF cephalexin 500 mg capsule 500 mg PO TID Qty: 30 0RF bisacodyl [Dulcolax (bisacodyl)] 10 mg Suppository 10 mg [place] DAILY lorazepam 1 mg Tablet 1 mg PO TID PRN cholecalciferol (vitamin D3) [Vitamin D3] 1,000 unit Capsule 1 unit PO DAILY Bio-K plus 50 billion cell Capsule,Delayed Release(Dr/Ec) 1 cap PO DAILY Qty: 30 0RF Patient Comments: Pt's mom states she now uses yogurt instead of the probiotic.HE Discharge Instructions Instructions: Urinary Retention in Men (ED) Additional Instructions: Followup with his primary care doctor and with urology; call tomorrow to schedule appointments. Return to the emergency department for new worsening symptoms including fever, abdominal pain, or if the catheter becomes dislodged or is not draining urine. Referrals: Dimas Lau MD [Primary Care Provider] - Medical Decision Making 57yo M with hx NF2, meningioma, urinary retention, presenting via EMS for inability to cath. Medical history obtained from [facility] record review; patient non-verbal at baseline. Per EMS family unable to straight cath him today, some bleeding from tip of penis after attempt, was last straight cathed yesterday evening. Vital signs and physical exam reassuring, no active bleeding from penis. Per Dr. House urology, has been dilated, use of coude tip catheter appropriate. Attempted at bedside without success. Dr. House to bedside (see his note for details), not successful at bedside. Taken to urology suite and lyles placed; drained approximately 1.5L of urine. On reassessment remains well appearing with reassuring vital signs, patent lyles. Discharged; discharge instructions including return precautions were reviewed with caregiver who verbalized understanding. All questions were answered and they are in full agreement with the plan. HPI General Mode of arrival: EMS . Date/Time Provider Initiated Documentation: 05/01/23 11:30 . Limitations to Documentation: other (nonverbal) . Information obtained by: EMS and old records reviewed . HPI Narrative: 57yo M with hx NF2, meningioma, urinary retention, presenting via EMS for inability to cath. Medical history obtained from [facility] record review; patient non-verbal at baseline. Per EMS family unable to straight cath him today, some bleeding from tip of penis after attempt. Last straight cathed yesterday evening. He is otherwise in his usual state of health at at his baseline mental status. Related Data Home Medications Medication Instructions Recorded Confirmed polyethylene glycol 3350 17 17 g PO DAILY 08/25/15 05/01/23 gram/dose oral powder (GlycoLax) bisacodyl 10 mg rectal suppository 10 mg [place] DAILY 04/26/19 05/01/23 (Dulcolax (bisacodyl)) cholecalciferol (vitamin D3) 25 1 unit PO DAILY 04/26/19 05/01/23 mcg (1,000 unit) capsule (Vitamin D3) lorazepam 1 mg tablet 1 mg PO TID PRN 04/26/19 05/01/23 L. acidophilus,casei,rhamnosus 50 1 cap PO DAILY #30 caps 05/07/19 05/01/23 billion cell capsule,delayed release (Bio-K plus) behhmmxdd-kpoB-qpaphvv-FOS-bromelain 188 mg (15 mL) PO BID infection 04/11/20 05/01/23 1,937 mg-188 mg/15 mL oral liquid prevention #225 mL surgical lubricant jelly 1 applic topical QID #56.7 grams 04/11/20 05/01/23 (Surgilube topical gel) clotrimazole 1 % topical cream 1 applic topical TID PRN PRN rash 04/27/21 05/01/23 #60 grams potassium citrate 10 mEq (1,080 10 meq PO BID #60 tabs 03/29/22 05/01/23 mg) tablet,extended release multivitamin 1 tab PO DAILY 04/06/22 05/01/23 cephalexin 500 mg capsule 500 mg PO TID #30 caps 04/05/23 05/01/23 Previous Rx's Medication Instructions Recorded L. acidophilus,casei,rhamnosus 50 1 cap PO DAILY #30 caps 05/07/19 billion cell capsule,delayed release (Bio-K plus) bojgoatkj-hgbH-txaixwg-FOS-bromelain 188 mg (15 mL) PO BID infection 04/11/20 1,937 mg-188 mg/15 mL oral liquid prevention #225 mL surgical lubricant jelly 1 applic topical QID #56.7 grams 04/11/20 (Surgilube topical gel) clotrimazole 1 % topical cream 1 applic topical TID PRN PRN rash 04/27/21 #60 grams potassium citrate 10 mEq (1,080 10 meq PO BID #60 tabs 03/29/22 mg) tablet,extended release cephalexin 500 mg capsule 500 mg PO TID #30 caps 04/05/23 Allergies Allergy/AdvReac Type Severity Reaction Status Date / Time carbamazepine [From Tegretol] Allergy Unknown Unknown Verified 04/25/23 08:20 gabapentin [From Neurontin] Allergy Unknown Unknown Verified 04/25/23 08:20 risperidone [From Risperdal] Allergy Unknown Unknown Verified 04/25/23 08:20 Sulfa (Sulfonamide AdvReac Mild Per pt. Verified 04/25/23 08:20 Antibiotics) mother causes stomach ache General Stated Complaint: Urinary SCHUYLER: 4 Review of Systems Unobtainable due to mental condition PFSH All Active Problems (Updated 05/01/23 @ 13:59 by Chelsey Olmedo MD) Urinary retention (Acute) Sepsis (Acute) Complicated UTI (urinary tract infection) (Acute) Community acquired pneumonia (Acute) DVT prophylaxis (Acute) Urinary catheter insertion/adjustment/removal (Acute) Diarrhea (Acute) Neurogenic bladder (Acute) Discharge planning issues (Acute) Bacteremia (Acute) Medical History (Updated 05/01/23 @ 13:59 by Chelsey Olmedo MD) Developmental non-verbal disorder Meningioma Neurofibromatosis 2 Urethral stricture Urinary retention Wheelchair dependent 2 assist Surgical History S/P craniotomy 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 Head: Atraumatic Neck: Trachea midline, Neck supple. Cardiac: RRR, no murmurs appreciated Resp: No respiratory distress. CTAB. Abd: Soft, non-distended, nontender. : Suprapubic fullness. Scant blood in brief, no active bleeding from penis. Normal external genitalia. Extremities: No deformities. No peripheral edema. Neurologic: Alert. Moves all extremities freely against gravity Course Vital Signs Vital signs: Vital Signs Pulse 58 L 05/01/23 11:03 Respiratory Rate 20 05/01/23 11:03 Blood Pressure 142/125 H 05/01/23 11:03 Pulse Oximetry 97 05/01/23 11:03 Pulse 58 L 05/01/23 11:03 Respiratory Rate 20 05/01/23 11:03 Blood Pressure 142/125 H 05/01/23 11:03 Blood Pressure Position Sitting 05/01/23 11:03 Pulse Oximetry 97 05/01/23 11:03 Oxygen Delivery Method Room Air 05/01/23 11:03 Oxygen Flow Rate 0 05/01/23 11:03
[2023-05-01] MEDS: Lidocaine 2% Jelly 6 ML SYR ×2 (11:50→12:35)
[2023-05-01 14:12] VITALS: BP 165/73; PULSE 53; O2SAT 94
--- NOTE | 2023-05-02 07:22 | UCONE_ITS ---
Date of service: 05/01/23 Time of Service: 13:30 Assessment and Plan Assessment and plan (1) Urinary retention: Status: Acute Assessment and plan: We will leave his catheter in place for an additional week. Once the catheter is removed, we will resume CIC. History of Present Illness History of Present Illness Chief Complaint: Urinary retention Narrative: This is a 57-year-old gentleman who has a history of a neurogenic bladder. He is managed with CIC. His caregivers have had difficulty passing his catheter, so he underwent a urethral dilation for 2 separate strictured areas. The first area was out toward the urethral meatus. The second area was at the bladder ne ck. The Li catheter was successfully removed yesterday, but the patient's mother was unable to pass a catheter this morning. The area resistance seem to be at the bladder neck. He came to the emergency department for a Li catheter placement, but the staff was unable to pass a coud? tip catheter. Review of Systems Unobtainable due to mental status PFSH All Active Problems (Updated 05/01/23 @ 13:59 by Chelsey Olmedo MD) Urinary retention (Acute) Sepsis (Acute) Complicated UTI (urinary tract infection) (Acute) Community acquired pneumonia (Acute) DVT prophylaxis (Acute) Urinary catheter insertion/adjustment/removal (Acute) Diarrhea (Acute) Neurogenic bladder (Acute) Discharge planning issues (Acute) Bacteremia (Acute) Medical History (Updated 05/01/23 @ 13:59 by Chelsey Olmedo MD) Developmental non-verbal disorder Meningioma Neurofibromatosis 2 Urethral stricture Urinary retention Wheelchair dependent 2 assist Surgical History S/P craniotomy S/P ORCHARD HAND shunt Social History Smoking/Tobacco Use Status: Never Smoking risk assessment performed?: Yes Alcohol Intake: never Drug use: Never Substance use type: does not use Caregiver/Support person: Yes (parents are primary caretakers) Household members: family Housing: house Additional Social history: not able to assess privately Exam Narrative Exam Narrative: He appears comfortable His bladder is not distended or uncomfortable on palpation I attempted to pass both a 14 and a 16 Ukrainian coud? tip catheter through the urethra. I was able to get past the distal urethral stricture, but I was not able to advance the catheter through the bladder neck. Results Last Vital Signs Pulse 53 L 05/01/23 14:12 Resp 20 05/01/23 11:03 BP 165/73 H 05/01/23 14:12 Pulse Ox 94 05/01/23 14:12 Cystoscopy Text: The patient was brought up to the office procedure room on 05/01/2023. He was left on his stretcher in the supine position. His genitalia was prepped with Betadine. 2% Xylocaine jelly was instilled into the urethra to act as a local anesthetic. The flexible cystoscope was passed through the urethra into the bladder. We identified a posterior false passage at the level of the prostate. Once the scope was within the bladder, I passed a guidewire through the lumen of the scope. Once the end of the wire was visualized in the bladder, the scope was removed and an 18 [place] tip catheter was advanced over the wire. The catheter was advanced up into the bladder and the wire was removed. Clear yellow urine was obtained. The catheter was hooked to gravity drainage and the catheter balloon was inflated with 10 cc of sterile water. Insert Bladder Catheter Text: See dictation under cystoscopy tab
== END 2023-05-01 14:19 | disposition home or self-care (01) ==
PROVIDERS: Emergency Provider Student in an Organized Health Care Education/Training Program; PCP Internal Medicine
DX: R33.9 Retention of urine, unspecified (principal); Q85.02 Neurofibromatosis, type 2; F80.9 Developmental disorder of speech and language, unspecified
CPT/HCPCS: 51703; 99283

== ENCOUNTER 2023-05-09 10:04 | Emergency (ER) | payer MEDICARE, MEDICAID, SELFPAY ==
[2023-05-09] VITALS (11 sets, daily range): BP systolic 115–160; BP diastolic 66–75; PULSE 52–60; RESP 20; TEMP 36.4; O2SAT 96–99
--- NOTE | 2023-05-09 10:02 | W.ED.GENAD ---
Discharge Plan Disposition Patient Disposition: Other Disposition Not Listed Other Facility: To present to urology clinic, then home Condition: Good Discharge Details Clinical Impression: Neurogenic bladder, Lyles catheter problem Primary Care Provider: Dimas Lau ED Provider: Chelsey Olmedo Home Meds and New Rx's Prescriptions: No Action multivitamin Tablet 1 tab PO DAILY clotrimazole 1 % cream 1 applic topical TID PRN PRN (Reason: rash) Qty: 60 0RF polyethylene glycol 3350 [GlycoLax] 527 GM powder 17 g PO DAILY msfz-upcY-crdtkik-FOS-bromeln 1,937-188 mg/15 mL liquid 188 mg PO BID Qty: 225 12RF Surgilube Gel 1 applic TP QID Qty: 56.7 12RF potassium citrate 10 mEq (1,080 mg) tablet extended release 10 meq PO BID Qty: 60 6RF cephalexin 500 mg capsule 500 mg PO TID Qty: 30 0RF bisacodyl [Dulcolax (bisacodyl)] 10 mg Suppository 10 mg NC DAILY lorazepam 1 mg Tablet 1 mg PO TID PRN cholecalciferol (vitamin D3) [Vitamin D3] 1,000 unit Capsule 1 unit PO DAILY Bio-K plus 50 billion cell Capsule,Delayed Release(Dr/Ec) 1 cap PO DAILY Qty: 30 0RF Patient Comments: Pt's mom states she now uses yogurt instead of the probiotic.HE Discharge Instructions Additional Instructions: Go directly to the urology clinic. Medical Decision Making 57yo M with hx NF2, meningioma, chronic indwelling lyles for neurogenic bladder/urinary retention presenting for inability to replace lyles. History from EMS and [facility] record review, patient nonverbal at baseline. Today with bleeding after lyles removed, lyles not able to be replaced at facility. Vital signs and physical exam reassuring, no active bleeding, no tachycardia, no suggestion of hemodynamically significant bleeding. Will not get labs. Seen here 7 days ago with similar presentation. Given inability to place in the ED last time, will not attempt again today. Urology consulted for catheter replacement; patient had initially been requested to present to speciality clinic for catheter replacement. They are available now to replace catheter. Discharged to go straight to clinic; discharge instructions including return precautions were reviewed with caregive who verbalized understanding. All questions were answered and they are in full agreement with the plan. HPI General Mode of arrival: EMS. Date/Time Provider Initiated Documentation: 05/09/23 10:07. Limitations to Documentation: other. Information obtained by: EMS and old records reviewed. 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 History from EMS and [facility] record review. Lyles last placed one week ago in the urology suite, removed this morning at nursing facility. Bleeding from penis after removal. Unable to replace catheter after removal. He is otherwise in his usual state of health per EMS. Related Data Home Medications Medication Instructions Recorded Confirmed polyethylene glycol 3350 17 17 g PO DAILY 08/25/15 05/09/23 gram/dose oral powder (GlycoLax) bisacodyl 10 mg rectal suppository 10 mg NC DAILY 04/26/19 05/09/23 (Dulcolax (bisacodyl)) cholecalciferol (vitamin D3) 25 1 unit PO DAILY 04/26/19 05/09/23 mcg (1,000 unit) capsule (Vitamin D3) lorazepam 1 mg tablet 1 mg PO TID PRN 04/26/19 05/09/23 L. acidophilus,casei,rhamnosus 50 1 cap PO DAILY #30 caps 05/07/19 05/09/23 billion cell capsule,delayed release (Bio-K plus) eyvyexeoe-mfwK-xguabwz-FOS-bromelain 188 mg (15 mL) PO BID infection 04/11/20 05/09/23 1,937 mg-188 mg/15 mL oral liquid prevention #225 mL surgical lubricant jelly 1 applic topical QID #56.7 grams 04/11/20 05/09/23 (Surgilube topical gel) clotrimazole 1 % topical cream 1 applic topical TID PRN PRN rash 04/27/21 05/09/23 #60 grams potassium citrate 10 mEq (1,080 10 meq PO BID #60 tabs 03/29/22 05/09/23 mg) tablet,extended release multivitamin 1 tab PO DAILY 04/06/22 05/09/23 cephalexin 500 mg capsule 500 mg PO TID #30 caps 04/05/23 05/09/23 Previous Rx's Medication Instructions Recorded L. acidophilus,casei,rhamnosus 50 1 cap PO DAILY #30 caps 05/07/19 billion cell capsule,delayed release (Bio-K plus) cztdtjikd-somN-qgcfyoi-FOS-bromelain 188 mg (15 mL) PO BID infection 04/11/20 1,937 mg-188 mg/15 mL oral liquid prevention #225 mL surgical lubricant jelly 1 applic topical QID #56.7 grams 04/11/20 (Surgilube topical gel) clotrimazole 1 % topical cream 1 applic topical TID PRN PRN rash 04/27/21 #60 grams potassium citrate 10 mEq (1,080 10 meq PO BID #60 tabs 03/29/22 mg) tablet,extended release cephalexin 500 mg capsule 500 mg PO TID #30 caps 04/05/23 Allergies Allergy/AdvReac Type Severity Reaction Status Date / Time carbamazepine [From Tegretol] Allergy Unknown Unknown Verified 05/09/23 10:17 gabapentin [From Neurontin] Allergy Unknown Unknown Verified 05/09/23 10:17 risperidone [From Risperdal] Allergy Unknown Unknown Verified 05/09/23 10:17 Sulfa (Sulfonamide AdvReac Mild Per pt. Verified 05/09/23 10:17 Antibiotics) mother causes stomach ache General Stated Complaint: Urinary SCHUYLER: 4 Review of Systems Narrative: see HPI PFSH All Active Problems (Updated 05/09/23 @ 10:45 by Chelsey Olmedo MD) Lyles catheter problem (Acute) Urinary retention (Acute) Sepsis (Acute) Complicated UTI (urinary tract infection) (Acute) Community acquired pneumonia (Acute) DVT prophylaxis (Acute) Urinary catheter insertion/adjustment/removal (Acute) Diarrhea (Acute) Neurogenic bladder (Acute) Discharge planning issues (Acute) Bacteremia (Acute) Medical History (Updated 05/09/23 @ 10:45 by Chelsey Olmedo MD) Developmental non-verbal disorder Meningioma Neurofibromatosis 2 Urethral stricture Urinary retention Wheelchair dependent 2 assist Surgical History S/P craniotomy S/P TREATING PLANT PUMPER shunt Social History Smoking/Tobacco Use Status: Never Smoking risk assessment performed?: Yes Alcohol Intake: never Drug use: Never Substance use type: does not use Caregiver/Support person: Yes (parents are primary caretakers) Household members: family Housing: house Additional Social history: not able to assess privately Exam Narrative Exam Narrative: General: Alert, well appearing, well nourished, in no acute distress. Head: Normocephalic, atraumatic Neck: Trachea midline, Neck supple. Cardiac: RRR, no murmurs appreciated Resp: No respiratory distress. CTAB. Abd: Soft, non-distended, nontender : No suprapubic tenderness. No active bleeding from penis, scant blood in brief. Normal external genitalia. Extremities: No deformities. No peripheral edema. Neurologic: Alert. Moves all extremities freely against gravity
== END 2023-05-09 10:54 | disposition other institution (70) ==
PROVIDERS: Emergency Provider Student in an Organized Health Care Education/Training Program; PCP Internal Medicine
DX: N31.9 Neuromuscular dysfunction of bladder, unspecified (principal); T83.9XXA Unspecified complication of genitourinary prosthetic device, implant and graft, initial encounter
CPT/HCPCS: 99281; 99282

== ENCOUNTER 2023-05-12 11:03 | Outpatient (REF) | payer MEDICARE, MEDICAID, SELFPAY ==
[2023-05-12 12:08] LABS: Bilirubin Negative (Negative); Blood Small (Negative); Clarity Sl Cloudy (Clear); Glucose Negative (Negative); Ketones Negative (Negative); Leukocyte Esterase Moderate (Negative); Nitrite Positive (Negative); Urobilinogen 0.2 mg/dL (Up to 0.2)
[2023-05-12 12:13] LABS: Bacteria Many HPF (Negative); C & S Indicated? Yes; Casts Negative LPF (Negative); Crystals Negative HPF (Negative); Epithelial Cells Negative HPF (Negative); Mucus Negative (Negative)
== END 2023-05-12 11:04 | disposition home or self-care (01) ==
LOC: NCHCN 11:03
PROVIDERS: PCP Internal Medicine; Visit Provider Internal Medicine
DX: N39.0 Urinary tract infection, site not specified (principal)
CPT/HCPCS: 87077; 81003; 81015; 87086; 87186

== ENCOUNTER 2023-07-14 19:58 | Emergency (ER) | payer MEDICARE, MEDICAID, SELFPAY ==
--- NOTE | 2023-07-14 20:26 | ED.GENADUL_ITS ---
Discharge Plan Discharge Details Chief Complaint: Urinary Primary Care Provider: Dimas Lau ED Provider: Deshawn Boone Home Meds and New Rx's Prescriptions: No Action multivitamin Tablet 1 tab PO DAILY clotrimazole 1 % cream 1 applic topical TID PRN PRN (Reason: rash) Qty: 60 0RF polyethylene glycol 3350 [GlycoLax] 527 GM powder 17 g PO DAILY bvgu-ulsT-sgntyxa-FOS-bromeln 1,937-188 mg/15 mL liquid 188 mg PO BID Qty: 225 12RF Surgilube Gel 1 applic TP QID Qty: 56.7 12RF potassium citrate 10 mEq (1,080 mg) tablet extended release See Rx Instructions .ROUTE .COMPLEX Qty: 60 6RF Dose Instruction: TAKE ONE TABLET BY MOUTH TWICE A DAY Rx Instructions: TAKE ONE TABLET BY MOUTH TWICE A DAY bisacodyl [Dulcolax (bisacodyl)] 10 mg Suppository 10 mg FL DAILY lorazepam 1 mg Tablet 1 mg PO TID PRN cholecalciferol (vitamin D3) [Vitamin D3] 1,000 unit Capsule 1 unit PO DAILY Medical Decision Making This dictation utilizes [id number] dictation software and may contain unedited grammatical errors. 57 y/o M presents to ED today with a chief complaint of chronic urinary catheter obstructed- changed by home health at 1000 today. Onset and characteristics include no output, non-verbal other history not obtained, family states acting his baseline. 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 Family and social history: caretakers and visting nurses. Pertinent exam findings / vital signs include mild distention suprapubically that resolved with placement of a patent Lyles, benign cardiopulmonary status, afebrile, after 10 to 15 minutes Lyles started having blood-tinged drainage. Differential / pathologies of concern include UTI, hematuria, pyelonephritis, renal stone, bladder cancer, trauma from prior failed Lyles. Diagnostic studies of: -UA, CBC, BMP, Lactate, Procalcitonin. -UA shows blood, >50 WBCs, >50 RBCs, large leuk esterase, negative nitrites -basic labs discussed with family, holding CT scan based on bloodwork, treating empirically with UTI otherwise -initial lactate 3.4 -WBCs elevated to 16.5 > adding blood cultures, IVF, 2gm IV ceftriaxone after cultures, and CT ABD/ Pelvis w Contrast Interventions of: -Lyles replacement - draining cloudy urine at first, then as ~100mL had entered bag started seeing blood tinged color. ED Course/Assessment/Plan: Nonverbal developmentally delayed individual presents with a blocked Lyles catheter, this was replaced and was patently draining cloudy urine followed by hematuria, basic labs were performed as the patient was mildly tachycardic which shows elevated lactate to 3.4 as well as elevated white blood cells, I am adding on 2 sets of cultures and IV fluids with a 2-hour recheck of lactate and IV antibiotics to treat a possible UTI which is common with the patient's chronic catheter use. CT scan was also added on to evaluate for possible pyelonephritis or other pathology of hematuria like renal stones. Patient signed out to Dr. Boone at shift change pending repeat lactate and imaging results with disposition. Disposition of Lyles Catheter Problem, Urinary Tract Infection, Sepsis Patient verbalized understanding of the plan and return to ED criteria and engaged in shared decision making. Medical Records Medical records reviewed: Yes I reviewed the patient's medical records. Lab Data Lab results reviewed: Yes I reviewed the patient's lab results. Labs: 07/14/23 22:42 Blood Blood Culture - Pending 07/14/23 22:42 Blood Blood Culture - Pending 07/14/23 21:35 Urine - Reflex from Ua Urine Culture - Pending Laboratory Tests Range/Units 07/14/23 07/14/23 21:35 22:30 WBC (4.4-10.8) 10^3/uL 16.53 H RBC (4.36-5.78) 10^6/uL 5.49 Hgb (13.5-17.5) g/dL 15.0 Hct (40.0-50.0) % 46.1 MCV (80-95) fL 84 MCH (27.0-33.0) pg 27.3 MCHC (32.0-36.0) % 32.5 RDW (11.8-14.1) % 13.0 Plt Count (130-400) 10^3/uL 217 MPV (8.0-11.0) fL 10.5 Immature Gran % 0.5 Neutrophils % 89.4 Lymphocytes % 4.7 Monocytes % 4.8 Eosinophils % 0.2 Basophils % 0.4 Nucleated RBC % (0.0-0.3) % 0.0 Absolute Neutrophils (1.2-6.7) 10^3/uL 14.78 H Absolute Lymphocytes (1.2-3.4) 10^3/uL 0.78 L Absolute Monocytes (0.1-0.8) 10^3/uL 0.79 Absolute Eosinophils (0.0-0.7) 10^3/uL 0.03 Absolute Basophils (0.0-0.2) 10^3/uL 0.07 VBG Lactate (0.6-1.4) mmol/L 3.7 H* Sodium (136-145) mmol/L 135 L Potassium (3.5-5.1) mmol/L 4.2 Chloride (98-107) mmol/L 100 Carbon Dioxide (21.0-32.0) mmol/L 28.6 Anion Gap (3-11) mmol/L 6.4 BUN (7-18) mg/dL 17 Creatinine (0.70-1.30) mg/dL 1.5 H Est GFR (CKD-EPI 2020) (mL/min/1.73m2) 53.63 Glucose (74-106) mg/dL 120 H Calcium (8.5-10.1) mg/dL 8.9 Urine Color (Yellow) Yellow Urine Clarity (Clear) Cloudy Urine pH (5-8) 7.0 Ur Specific [place] (1.005-1.025) 1.020 Urine Protein (Negative) mg/dL 100 H Urine Ketones (Negative) mg/dL Negative Urine Blood (Negative) Large H Urine Nitrite (Negative) Negative Urine Bilirubin (Negative) Negative Urine Urobilinogen (Up to 0.2) mg/dL 0.2 Ur Leukocyte Esterase (Negative) Large H Urine RBC (0-2) HPF >50 H Urine WBC (0-5) HPF >50 H Ur Epithelial Cells (Negative) HPF Few Urine Crystals (Negative) HPF Negative Urine Bacteria (Negative) HPF Few Urine Casts (Negative) LPF Negative Urine Mucus (Negative) Heavy Ur Culture Indicated? Yes Urine Glucose (Negative) mg/dL Negative HPI General Date/Time Provider Initiated Documentation: 07/14/23 20:25 . 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 Quality described as no urine output since then, no radiation to fever, not able to give any other history. Severity is described as unable to quantify. Palliating factors include none attempted- appears the catheter was not confirmed as patent prior to visiting nurse leaving. Provoking factors include nothing specific. Events leading up to the incident/Associated Symptoms: patient is chronically cath'd. Patient not anticoagulated. Related Data Home Medications Medication Instructions Recorded Confirmed polyethylene glycol 3350 17 17 g PO DAILY 08/25/15 07/14/23 gram/dose oral powder (GlycoLax) bisacodyl 10 mg rectal suppository 10 mg FL DAILY 04/26/19 07/14/23 (Dulcolax (bisacodyl)) cholecalciferol (vitamin D3) 25 1 unit PO DAILY 04/26/19 07/14/23 mcg (1,000 unit) capsule (Vitamin D3) lorazepam 1 mg tablet 1 mg PO TID PRN 04/26/19 07/14/23 kdnsvrmrc-qvmP-xekuzbl-FOS-bromelain 188 mg PO BID infection prevention 04/11/20 07/14/23 1,937 mg-188 mg/15 mL oral liquid #225 mL surgical lubricant jelly 1 applic topical QID #56.7 grams 04/11/20 07/14/23 (Surgilube topical gel) clotrimazole 1 % topical cream 1 applic topical TID PRN PRN rash 04/27/21 07/14/23 #60 grams multivitamin 1 tab PO DAILY 04/06/22 07/14/23 potassium citrate 10 mEq (1,080 See Rx Instructions .Route 07/07/23 07/14/23 mg) tablet,extended release .COMPLEX #60 tabs Previous Rx's Medication Instructions Recorded fjhchtgat-libZ-gykkbwv-FOS-bromelain 188 mg PO BID infection prevention 04/11/20 1,937 mg-188 mg/15 mL oral liquid #225 mL surgical lubricant jelly 1 applic topical QID #56.7 grams 04/11/20 (Surgilube topical gel) clotrimazole 1 % topical cream 1 applic topical TID PRN PRN rash 04/27/21 #60 grams potassium citrate 10 mEq (1,080 See Rx Instructions .Route 07/07/23 mg) tablet,extended release .COMPLEX #60 tabs Allergies Allergy/AdvReac Type Severity Reaction Status Date / Time carbamazepine [From Tegretol] Allergy Unknown Unknown Verified 07/14/23 20:18 gabapentin [From Neurontin] Allergy Unknown Unknown Verified 07/14/23 20:18 risperidone [From Risperdal] Allergy Unknown Unknown Verified 05/09/23 10:17 Sulfa (Sulfonamide AdvReac Mild Per pt. Verified 05/09/23 10:17 Antibiotics) mother causes stomach ache haldol AdvReac Unknown Uncoded 07/14/23 20:19 General Stated Complaint: Urinary SCHUYLER: 3 Review of Systems All systems reviewed & are unremarkable except as noted in HPI and below PFSH All Active Problems (Updated 06/09/23 @ 00:04 by SARAH FRANCIS) Sepsis (Acute) Complicated UTI (urinary tract infection) (Acute) Community acquired pneumonia (Acute) DVT prophylaxis (Acute) Urinary catheter insertion/adjustment/removal (Acute) Diarrhea (Acute) Neurogenic bladder (Acute) Discharge planning issues (Acute) Bacteremia (Acute) Medical History (Updated 06/09/23 @ 00:04 by [employer]Robert FRANCIS) Urethral stricture Wheelchair dependent 2 assist Developmental non-verbal disorder Urinary retention Meningioma Neurofibromatosis 2 Surgical History S/P craniotomy 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 SKIN: Warm, pink, dry, intact, without rashes/lesions/ulcerations. HEAD: Normocephalic, atraumatic, normal hair distribution for gender/age. EYES: Pupils PERRLA, EOMs intact without nystagmus, normal conjunctiva, no exudates on lids/lashes. ENT: Nares patent, no circumoral cyanosis, no facial swelling NECK: Supple, trachea midline, painless cervical ROM. LUNGS/CHEST: Lungs CTA bilaterally, non-labored respirations, normal A/P diameter, symmetrical expansion, no chest wall deformity HEART (CV/PV): Regular rate and rhythm without murmur, no peripheral edema, no JVD. ABDOMEN: Soft, non-distended, no guarding, mild distention suprapubic. MSK: Normal ROM, no swelling/deformity to bilateral UEs or LEs, moving all ext remities without weakness, no cyanosis, spine midline without tenderness, normal curvature. NEURO: Mental Status AAOx4 - follows spontaneous activity in room No facial droop, no forehead involvement. Motor: No focal weakness - strength 5/5 in bilateral UEs and LEs, proximal and distal, symmetric. Sensory: sensation intact to light touch globally. Gait normal: patient ambulated without ataxia into ED room. PSYCH: euthymic, cooperative, pleasant, non-verbal Course 07/14/23 21:13 Lidocaine 2% Jelly [Glydo 2%] 11 ml .ROUTE .STK-MED ONE 07/14/23 21:16 Water for injection, sterile 10 ml .ROUTE .STK-MED ONE 07/14/23 21:35 Urine Culture Stat Microscopic Findings [URIN] Stat Urinalysis [URIN] Stat 07/14/23 22:08 Lyles Insert/DC [Lyles Insert/Assess/DC] .INSERT 07/14/23 22:30 Basic Metabolic Panel Stat Lactate Stat Procalcitonin Stat Complete Blood Count w/Diff [HEMO] Stat 07/14/23 22:42 CT abdomen & pelvis w [CT] Stat Normal Saline [Saline 1000ml Bag] 1,000 ml IV BOLUS cefTRIAXone [Rocephin] 2 gm in 50 ml IVPB NOW Blood Culture ( Age => 9 Yrs) Stat
[2023-07-14 21:00] VITALS: BP 161/98; PULSE 111; RESP 22; TEMP 37.1; O2SAT 94
[2023-07-14] MEDS: Lidocaine 2% Jelly 11 ML SYR (21:00)
[2023-07-14] MEDS: Water,Injection,Sterile 10 ML VIAL (21:00)
[2023-07-14 21:42] LABS: Bilirubin Negative (Negative); Blood Large (Negative); Clarity Cloudy (Clear); Glucose Negative (Negative); Ketones Negative (Negative); Leukocyte Esterase Large (Negative); Nitrite Negative (Negative); Urobilinogen 0.2 mg/dL (Up to 0.2)
[2023-07-14 21:49] LABS: Bacteria Few HPF (Negative); C & S Indicated? Yes; Casts Negative LPF (Negative); Crystals Negative HPF (Negative); Epithelial Cells Few HPF (Negative); Mucus Heavy (Negative); RBC >50 HPF (0-2); WBC >50 HPF (0-5)
[2023-07-14 22:38] LABS: Abs Immature Grans 0.08 10^3/uL (0.0-0.06); Absolute Eosinophil Count 0.03 10^3/uL (0.0-0.7); Basophils % 0.4; Eosinophils % 0.2; HCT 46.1 % (40.0-50.0); Immature Grans % 0.5; Lactate 3.7 mmol/L (0.6-1.4); Lymphocytes % 4.7; MCH 27.3 pg (27.0-33.0); MCHC 32.5 % (32.0-36.0); MCV 84 fL (80-95); MPV 10.5 fL (8.0-11.0); Monocytes % 4.8; Neutrophils % 89.4; Platelet Count 217 10^3/uL (130-400); RBC 5.49 10^6/uL (4.36-5.78); RDW-SD 40.1 fL; WBC 16.53 10^3/uL (4.4-10.8)
[2023-07-14 22:39] LABS: Absolute Basophil Count 0.07 10^3/uL (0.0-0.2); Absolute Lymphocyte Count 0.78 10^3/uL (1.2-3.4); Absolute Monocyte Count 0.79 10^3/uL (0.1-0.8); Absolute Neutrophil Count 14.78 10^3/uL (1.2-6.7)
[2023-07-14 22:48] LABS: Anion Gap 6.4 mmol/L (3-11); BUN 17 mg/dL (7-18); CO2 28.6 mmol/L (21.0-32.0); CREATININE 1.5 mg/dL (0.70-1.30); Calcium 8.9 mg/dL (8.5-10.1); Chloride 100 mmol/L (98-107); Estimated GFR 53.63 (mL/min/1.73m2); Glucose 120 mg/dL (74-106); Potassium 4.2 mmol/L (3.5-5.1); Sodium 135 mmol/L (136-145)
[2023-07-14 23:09] LABS: Procalcitonin < 0.1 ng/mL
[2023-07-14] MEDS: Lactated Ringers 1,000 ML 1000 ML IV (23:45)
[2023-07-14] MEDS: cefTRIAXone 2 GM/50 ML BAG IVPB (23:50)
[2023-07-15] VITALS (10 sets, daily range): BP systolic 147–170; BP diastolic 82–83; PULSE 77–88; RESP 15–23; TEMP 37.1; O2SAT 92–100
--- NOTE | 2023-07-15 00:15 | DI.CT_ITS ---
Exam(s) CT ABDOMEN PELVIS W EXAM: CT ABDOMEN PELVIS W CLINICAL HISTORY: non-verbal, elevated lactate, leukocytosis,ABD TTP. TECHNIQUE: Imaging Protocol: Axial computed tomography images with coronal and sagittal reformatted images were created and reviewed CONTRAST MATERIAL: Intravenous: Omnipaque-350 100cc Oral: None COMPARISON: CT CT ABDOMEN PELVIS W from 05/04/2019 FINDINGS: VISUALIZED LUNG BASES: Increased markings in both lung bases. No pleural effusions.. ABDOMEN: There is a ventriculoperitoneal shunt in the abdomen. Its distal aspect is in the right iliac fossa. No evidence of abscess. No fluid seen around the shunt. There is no ascites. GI: There is interposition of colon between the liver and anterior abdominal wall. The sigmoid is di stended with fecal material as is the rectum, is distended to 8 millimeter diameter. The amount of f ecal material in the remainder of the colon is moderate. Appendix appears unremarkable. There is no evidence of small-bowel obstruction, free air, nor abscess. LIVER: There are no focal hepatic lesions evident. No dilated intrahepatic ducts. GALLBLADDER/BILIARY: No obvious gallbladder pathology. CBD is not dilated. PANCREAS: No evidence of pancreatic mass nor dilatation of the pancreatic duct. SPLEEN: Spleen is not enlarged. No obvious intrasplenic lesions. Splenic and portal veins are paten t. ADRENALS: There are no significant adrenal masses. KIDNEYS:There are 2 tiny nonobstructive calculi in the lower half of the right kidney. No calculi se en in the left kidney. Bilateral extrarenal pelves are again noted, again noted be more prominent on the left side. There is no caliectasis. A few small benign 1 cm cysts are noted in the right kidne y. These do not require further workup. A tiny 5 millimeter cyst in the left kidney also noted whic h does not require further workup. No solid renal masses. No hydronephrosis. No hydroureter. Ther e is a Li catheter in the urinary bladder. The urinary bladder wall is again noted be significant ly thickened most probably related to chronic cystitis. Prostate gland is not enlarged. Seminal ves icles unremarkable.. ABDOMINAL AORTA: Abdominal aorta is not enlarged. LYMPH NODES:There is no retroperitoneal nor paraaortic adenopathy. ABDOMINAL WALL: No evidence of significant anterior abdominal wall nor inguinal hernia. GI: As above PELVIS: GI: No evidence of appendicitis.No evidence of sigmoid diverticulitis. LYMPH NODES: There is no intrapelvic nor inguinal adenopathy. REPRODUCTIVE: Prostate not enlarged. Seminal vesicles unremarkable. URINARY BLADDER: Li catheter in place. Significant abnormal circumferential thickening of the uri nary bladder. OSSEOUS: No fractures and no significant osseous lesions. IMPRESSION: 1. Compared to prior CT scan 05/04/2019 the amount of fecal content in the rectosigmoid has further i ncreased and this part of the colon is now significantly distended to 9 cm size. The amount of fecal material in the remainder of the colon is more moderate. There is no true bowel obstruction. 2. There is ventriculoperitoneal shunt in the abdomen noted. Distal tip is in the right iliac fossa region. No associated mesenteric streaking nor abscess. 3. The urinary bladder wall is uniformly very thickened consistent with chronic cystitis. There is a Li catheter in the urinary bladder noted which was not evident in 2019 4. Increased markings in both lower lobes which may be mild infiltrate. There are no associated pleu ral effusions. RADIATION DOSE DELIVERED: Total DLP DATA REPOSITORY: All CT scans at this facility are submitted to the National Radiology Data Registry (NRDR) Dose Index Registry (DIR) with the [employer] (ACR). RADIATION OPTIMIZATION: All CT scans at this facility use at least one of these dose optimization te chniques: automated exposure control; mA and/or kV adjustment per patient size (includes targeted exa ms where dose is matched to clinical indication); or iterative reconstruction.
[2023-07-15] MEDS: Omnipaque 350 MG/ML 100 ML BTL IJ (00:40)
[2023-07-15] MEDS: Normal Saline - Diluent 50 ML VIAL IJ (00:41)
[2023-07-15] MEDS: Normal Saline Flush 10 ML SYR IVP (00:41)
[2023-07-15] MEDS: Normal Saline 1,000 ML 1000 ML IV (01:00)
--- NOTE | 2023-07-15 01:25 | DI.VRAD_ITS ---
PROCEDURE INFORMATION: Exam: CT Abdomen And Pelvis With Contrast Exam date and time: 07/15/2023 12:27 AM Age: 57 years old Clinical indication: Other: Elevated lactate, leukocytosis, abd ttp; Additional info: Non-verbal, elevated lactate, leukocytosis, abd ttp TECHNIQUE: Imaging protocol: Computed tomography of the abdomen and pelvis with contrast. Contrast material: OMNI 350; Contrast volume: 100 ml; Contrast route: INTRAVENOUS (IV); COMPARISON: CT ABDOMEN PELVIS W 05/04/2019 3:36 PM FINDINGS: Tubes, catheters and devices: There is a probable ventriculoperitoneal shunt catheter projected within the right hemipelvis and traversing the subcutaneous soft tissues of the anterior abdomen and lower chest. Lungs: Moderate atelectatic changes present at the lung bases bilaterally. The lung bases are otherwise unremarkable. Heart: There is a small pericardial effusion present. Coronary arteries: There is mild atherosclerotic calcification of the coronary arteries. Liver: There are no focal liver lesions present. There is no evidence of intrahepatic or extrahepatic biliary ductal dilation. Gallbladder and bile ducts: The gallbladder is normal. There is no cholelitiasis, wall thickening or pericholecystic fluid to suggest cholecystitis. Pancreas: The pancreas is normal. Spleen: The spleen is normal. Adrenal glands: The adrenal glands are normal. Kidneys and ureters: Bilateral simple appearing renal cysts present. Stomach and bowel: There is marked increased colonic fecal content. The colon is moderately distended. These findings suggest a moderate to severe degree of constipation. Clinical correlation recommended. There are fluid-filled loops of small bowel with air-fluid levels. No significant bowel wall thickening or inflammatory changes. No evidence of obstruction. Consider early enteritis. Consider obstipation. Appendix: A normal appendix is identified. There is no evidence of distention or periappendiceal inflammation to suggest appendicitis. Intraperitoneal space: There is no free intraperitoneal air. There is no evidence of free intraperitoneal or pelvic fluid. Vasculature: The aorta is unremarkable without evidence of significant atherosclerosis or aneurysmal disease. The peripheral arterial vascular system visualized is unremarkable. The portal venous system visualized is unremarkable. The peripheral venous vascular system visualized is unremarkable. Lymph nodes: There is no evidence of lymphadenopathy. Urinary bladder: The bladder is decompressed by a Li catheter but is otherwise normal. There is a small amount of urinary bladder intraluminal air consistent with instrumentation. Reproductive: Unremarkable as visualized. Bones/joints: The skeletal structures and soft tissues show no evidence of fracture or other acute processes. Soft tissues: There is a nonobstructing right inguinal hernia containing fat and possibly a small amount of mesentery. IMPRESSION: 1. There is marked increased colonic fecal content. The colon is moderately distended. These findings suggest a moderate to severe degree of constipation. Clinical correlation recommended. 2. There are fluid-filled loops of small bowel with air-fluid levels. No significant bowel wall thickening or inflammatory changes. No evidence of obstruction. Consider early enteritis. Consider obstipation. 3. There is a probable ventriculoperitoneal shunt catheter projected within the right hemipelvis and traversing the subcutaneous soft tissues of the anterior abdomen and lower chest. Dictated and Authenticated by: Kevin Virk MD. Ordering:NIGEL Wilkerson MD
[2023-07-15 01:31] LABS: Lactate 1.2 mmol/L (0.6-1.4)
--- NOTE | 2023-07-15 02:21 | W.EDPROG ---
Date of service: 07/15/23 Time of Service: 02:21 Medical Decision Making I, Deshawn Boone, took signout on this patient. In summary 57-year-old gentleman with cognitive delay and chronic indwelling Li catheter presents with obstructed Li catheter. Had it changed by home health today at 10 AM. No output and brought here by belting inspector who lives in with him. Li catheter was exchanged here and significant drainage of urine. Signed out to me pending labs and CT abdomen pelvis. Labs unremarkable other than UTI. Had a lactic acidosis that resolved after IV fluids. CT abdomen pelvis with no acute findings given some IV antibiotics here. Back to baseline. Vital signs unremarkable. Will send home with treatment for UTI and given strict return precautions. Interior Design Principal agreeable with this plan. Medical Records Medical records reviewed: Yes I reviewed the patient's medical records. Imaging Data Radiologic Study: Attestation: I personally reviewed and interpreted this imaging study as follows: Imaging: CT Scan (abdomen and pelvis) Radiologist's impression: IMPRESSION: 1. There is marked increased colonic fecal content. The colon is moderately distended. These findings suggest a moderate to severe degree of constipation. Clinical correlation recommended. 2. There are fluid-filled loops of small bowel with air-fluid levels. No significant bowel wall thickening or inflammatory changes. No evidence of obstruction. Consider early enteritis. Consider obstipation. 3. There is a probable ventriculoperitoneal shunt catheter projected within the right hemipelvis and traversing the subcutaneous soft tissues of the anterior abdomen and lower chest. Discharge Plan Disposition Patient Disposition: Home Condition: Good Discharge Details Clinical Impression: Li catheter problem, Acute UTI Primary Care Provider: Dimas Lau ED Provider: Deshawn Boone Home Meds and New Rx's Prescriptions: New cephalexin 250 mg/5 mL suspension for reconstitution 500 mg PO QID 5 Days Qty: 200 0RF No Action multivitamin Tablet 1 tab PO DAILY clotrimazole 1 % cream 1 applic topical TID PRN PRN (Reason: rash) Qty: 60 0RF polyethylene glycol 3350 [GlycoLax] 527 GM powder 17 g PO DAILY uwqc-akwU-ftilwpm-FOS-bromeln 1,937-188 mg/15 mL liquid 188 mg PO BID Qty: 225 12RF Surgilube Gel 1 applic TP QID Qty: 56.7 12RF potassium citrate 10 mEq (1,080 mg) tablet extended release See Rx Instructions .ROUTE .COMPLEX Qty: 60 6RF Dose Instruction: TAKE ONE TABLET BY MOUTH TWICE A DAY Rx Instructions: TAKE ONE TABLET BY MOUTH TWICE A DAY bisacodyl [Dulcolax (bisacodyl)] 10 mg Suppository 10 mg NE DAILY lorazepam 1 mg Tablet 1 mg PO TID PRN cholecalciferol (vitamin D3) [Vitamin D3] 1,000 unit Capsule 1 unit PO DAILY Discharge Instructions Instructions: Urinary Tract Infection in Men (ED), Li Catheter Placement and Care (ED) Additional Instructions: Hollis was seen in the emergency department for a Li catheter problem. We replaced the Li catheter here and he spontaneously drained his bladder. We performed a CAT scan that was unremarkable other than some constipation. You can give him some ykco-qjn-kzrtlix MiraLAX for this. His urine testing is consistent with a UTI. We gave him his first dose of antibiotics here and sent some antibiotics to his pharmacy. Please return to the emergency department if he develops any other symptoms or if you have any other concerns. Follow-up with your primary care doctor. Referrals: Dimas Lau MD [Primary Care Provider] - 1 week
== END 2023-07-15 02:40 | disposition home or self-care (01) ==
PROVIDERS: Physician Assistant; Emergency Provider Student in an Organized Health Care Education/Training Program; PCP Internal Medicine
DX: T83.098A Other mechanical complication of other urinary catheter, initial encounter (principal); R33.9 Retention of urine, unspecified; N20.0 Calculus of kidney; R62.50 Unspecified lack of expected normal physiological development in childhood; Z98.2 Presence of cerebrospinal fluid drainage device
CPT/HCPCS: 00123; 51702; 80048; 84145; 87040; 87077; 99285; 74177; 81003; 81015; 83605; 85025; 87086; 87186; 99283; J3490

== ENCOUNTER → 2023-07-18 14:23 | Outpatient (BNVA) | payer MEDICARE, MEDICAID, SELFPAY | PROVIDERS: PCP Internal Medicine; Referring Provider Internal Medicine; Visit Provider Urology | DX: N31.9 Neuromuscular dysfunction of bladder, unspecified (principal); Z96.0 Presence of urogenital implants; Z87.440 Personal history of urinary (tract) infections; Z87.448 Personal history of other diseases of urinary system | CPT/HCPCS: 99213 ==

== ENCOUNTER → 2023-08-12 00:02 | Outpatient (CLI) | payer MEDICARE, MEDICAID, SELFPAY ==
--- NOTE | 2023-08-12 08:15 | DI.US_ITS ---
Exam(s) US RENAL EXAM: US RENAL CLINICAL HISTORY: ? hydronephrosis,neurogenic bladder,N31.9. TECHNIQUE: Amor scale, color and spectral Doppler were used. COMPARISON: US US RENAL from 08/13/[address] ABDOMEN PELVIS W from 07/15/2023 FINDINGS: Renal size in cm: Right: 10.9 left: 0 Echogenicity: Normal Hydronephrosis: No Cyst or mass: Small bilateral cysts again noted. Nephrolithiasis: 6 millimeter nonobstructing stone mid right kidney. Bladder:Li catheter present within decompressed bladder IMPRESSION: No evidence of hydronephrosis. 6 millimeters calculus mid right kidney. DATA REPOSITORY:
== END ==
PROVIDERS: PCP Internal Medicine; Visit Provider Urology
DX: N31.9 Neuromuscular dysfunction of bladder, unspecified (principal); N20.0 Calculus of kidney
CPT/HCPCS: 76770

== ENCOUNTER 2023-08-18 22:45 | Emergency (ER) | payer MEDICARE, MEDICAID, SELFPAY ==
[2023-08-18] VITALS (11 sets, daily range): BP systolic 141–159; BP diastolic 75–96; PULSE 98–109; RESP 18–20; TEMP 36.3–37.1; O2SAT 93–97
--- NOTE | 2023-08-18 23:30 | NUR.NOTE ---
Nursing Note: Lyles that pt arrived with was removed. As soon as new lyles was in place urine started draining from the bladder. Cloudy in color, mucus noted. 750mL drained instantly. Held in place with leg strap.
--- NOTE | 2023-08-18 23:53 | W.ED.GENAD ---
HPI General Stated Complaint: Urinary SCHUYLER: 3 Date/Time Provider Initiated Documentation: 08/18/23 22:50. 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 History is notably limited, patient is nonverbal. EMS brought the patient in and gives a conflicting report compared to family. Per family he has not had any output since 11 AM. Tylenol was given with only mild improvement. Patient had some suprapubic tenderness, and the patient was brought in for further assessment. Temperature at home was 98-99 per family. Family felt that the patient was in pain later. No other complaints or history at this time. Li catheter was recently changed 6 days ago. Patient had been on antibiotics previously about a month ago for urinary tract infection which demonstrated enteric bacteria that was cefazolin resistant but otherwise pansensitive. Related Data Home Medications Medication Instructions Recorded Confirmed polyethylene glycol 3350 17 17 g PO DAILY 08/25/15 07/14/23 gram/dose oral powder (GlycoLax) bisacodyl 10 mg rectal suppository 10 mg SC DAILY 04/26/19 07/14/23 (Dulcolax (bisacodyl)) cholecalciferol (vitamin D3) 25 1 unit PO DAILY 04/26/19 07/14/23 mcg (1,000 unit) capsule (Vitamin D3) lorazepam 1 mg tablet 1 mg PO TID PRN 04/26/19 07/14/23 tctfetijh-lmcS-uqctkrl-FOS-bromelain 188 mg PO BID infection prevention 04/11/20 07/14/23 1,937 mg-188 mg/15 mL oral liquid #225 mL surgical lubricant jelly 1 applic topical QID #56.7 grams 04/11/20 07/14/23 (Surgilube topical gel) clotrimazole 1 % topical cream 1 applic topical TID PRN PRN rash 04/27/21 07/14/23 #60 grams multivitamin 1 tab PO DAILY 04/06/22 07/14/23 potassium citrate 10 mEq (1,080 See Rx Instructions .Route 07/07/23 08/15/23 mg) tablet,extended release .COMPLEX #60 tabs cefpodoxime 100 mg tablet 100 mg PO BID 10 days #20 tabs 08/18/23 Previous Rx's Medication Instructions Recorded jamwcnidv-vyjX-ykgsnie-FOS-bromelain 188 mg PO BID infection prevention 04/11/20 1,937 mg-188 mg/15 mL oral liquid #225 mL surgical lubricant jelly 1 applic topical QID #56.7 grams 04/11/20 (Surgilube topical gel) clotrimazole 1 % topical cream 1 applic topical TID PRN PRN rash 04/27/21 #60 grams potassium citrate 10 mEq (1,080 See Rx Instructions .Route 07/07/23 mg) tablet,extended release .COMPLEX #60 tabs cefpodoxime 100 mg tablet 100 mg PO BID 10 days #20 tabs 08/18/23 Allergies Allergy/AdvReac Type Severity Reaction Status Date / Time carbamazepine [From Tegretol] Allergy Unknown Unknown Verified 07/14/23 20:18 gabapentin [From Neurontin] Allergy Unknown Unknown Verified 07/14/23 20:18 risperidone [From Risperdal] Allergy Unknown Unknown Verified 05/09/23 10:17 Sulfa (Sulfonamide AdvReac Mild Per pt. Verified 05/09/23 10:17 Antibiotics) mother causes stomach ache haldol AdvReac Unknown Uncoded 07/14/23 20:19 Review of Systems All systems reviewed & are unremarkable except as noted in HPI and below PFSH All Active Problems Li catheter problem (Acute) Sepsis (Acute) Complicated UTI (urinary tract infection) (Acute) Community acquired pneumonia (Acute) DVT prophylaxis (Acute) Urinary catheter insertion/adjustment/removal (Acute) Diarrhea (Acute) Neurogenic bladder (Acute) Discharge planning issues (Acute) Bacteremia (Acute) Medical History Urethral stricture Wheelchair dependent 2 assist Developmental non-verbal disorder Urinary retention Meningioma Neurofibromatosis 2 Surgical History S/P craniotomy S/P 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 3.ENT: Atraumatic external nose and ears. Moist MM. Neck: Symmetric, trachea midline, No thyromegaly. 4.CVS: +S1/S2, No murmurs or gallops. Peripheral pulses 2+ and equal in all extremities. Brisk capillary refill in all extremities. 5.RESP: Unlabored respiratory effort. Clear to auscultation bilaterally. No wheezes rales or rhonchi 6.GI: Soft, Nontender/Nondistended, No hepatosplenomegaly. There is some firmness in the suprapubic region which appears palpably similar to an enlarged bladder. Patient has defecated on himself, genitalia otherwise looks stable with no blood at the urethral meatus. 7.MSK: Normocephalic/Atraumatic, chronic partial contractures of the upper extremities. 8.Skin: Warm, Dry. No rashes or lesions. 9.Neuro: Patient appears at neurologic baseline per family Course Vital Signs Vital signs: Vital Signs Temperature 36.3 C L 08/18/23 22:46 Pulse 109 H 08/18/23 22:46 Respiratory Rate 20 08/18/23 22:46 Pulse Oximetry 96 08/18/23 22:46 Temperature 37.1 C 08/18/23 23:31 Temperature Source Oral 08/18/23 23:31 Pulse 104 H 08/18/23 23:31 Respiratory Rate 18 08/18/23 23:31 Respiratory Effort Normal 08/18/23 22:53 Blood Pressure 149/84 H 08/18/23 23:31 Blood Pressure Position Sitting 08/18/23 22:46 Pulse Oximetry 93 08/18/23 23:31 Oxygen Delivery Method Room Air 08/18/23 23:31 Oxygen Flow Rate 0 08/18/23 23:31 Comment pt appears to be in pain, diaphoretic and family states he was having discomfot upon bladder palpation 08/18/23 22:46 Medical Decision Making This is a 57-year-old male with past medical history of cognitive delay, 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 History is notably limited, patient is nonverbal. EMS brought the patient in and gives a conflicting report compared to family. Per family he has not had any output since 11 AM. Tylenol was given with only mild improvement. Patient had some suprapubic tenderness, and the patient was brought in for further assessment. Temperature at home was 98-99 per family. Family felt that the patient was in pain later. No other complaints or history at this time. Li catheter was recently changed 6 days ago. Patient had been on antibiotics previously about a month ago for urinary tract infection which demonstrated enteric bacteria that was cefazolin resistant but otherwise pansensitive. Exam demonstrates intact Li catheter, no blood at the urethral meatus or discharge. No urine in the Li bag. Patient has defecated on himself in his diaper. Suprapubic pressure is noted. Bedside ultrasound shows greater than 500 cc in the bladder. Patient is notably afebrile here. He is tachycardic in the 120s on arrival. Concern for urinary obstruction. Will place Li catheter and reassess. 11:50 PM Li catheter placed successfully without complication. Notable amount of mucus was present. Urine cloudy. Urine is concerning for infection. Culture results show evidence of enteric bacteria that is cefazolin resistant. Patient is afebrile here, no hypotension or signs of shock. After removal of around 6 to 700 cc of urine patient is feeling much better. No diaphoresis. No suprapubic or abdominal tenderness. Suspect patient may have chronic and he has mucus production secondary to infection. Will start the patient on cefpodoxime. Patient appears notably clinically improved. Patient stable for discharge. Discussed the plan with the patient's caregiver who is at bedside. I have extensively reviewed the treatment plan and discharge instructions with the patient and their family. I have addressed all patient concerns at this time. The patient and family was made aware of what symptoms to monitor for that would warrant a return to the emergency department. Discussed the plan with the patient and family, they demonstrate verbal understanding and agreement with our assessment and plan at this time. The documentation in this chart was dictated using [employer] dictation software. Please excuse any dictation errors. Quality:[facility] Related Social Needs: No Data to Display Discharge Plan Disposition Patient Disposition: Home Discharge Details Clinical Impression: Li catheter problem Primary Care Provider: Dimas Lau ED Provider: Rock Campa Home Meds and New Rx's Prescriptions: New cefpodoxime 100 mg tablet 100 mg PO BID 10 Days Qty: 20 0RF Rx Instructions: must administer with a meal/food No Action multivitamin Tablet 1 tab PO DAILY clotrimazole 1 % cream 1 applic topical TID PRN PRN (Reason: rash) Qty: 60 0RF polyethylene glycol 3350 [GlycoLax] 527 GM powder 17 g PO DAILY iasw-afxG-qhzixbd-FOS-bromeln 1,937-188 mg/15 mL liquid 188 mg PO BID Qty: 225 12RF Surgilube Gel 1 applic TP QID Qty: 56.7 12RF potassium citrate 10 mEq (1,080 mg) tablet extended release See Rx Instructions .ROUTE .COMPLEX Qty: 60 6RF Dose Instruction: TAKE ONE TABLET BY MOUTH TWICE A DAY Rx Instructions: TAKE ONE TABLET BY MOUTH TWICE A DAY bisacodyl [Dulcolax (bisacodyl)] 10 mg Suppository 10 mg SC DAILY lorazepam 1 mg Tablet 1 mg PO TID PRN cholecalciferol (vitamin D3) [Vitamin D3] 1,000 unit Capsule 1 unit PO DAILY Discharge Instructions Instructions: Li Catheter Placement and Care (ED) Additional Instructions: At this time the mucous plug has been removed and the Li is now draining well after it was replaced. Please continue to hydrate well to continue a good flow of urine to prevent replugging. Unfortunately the bacteria that cause your infection have grown out to show resistance to the medication that you are on. Please stop taking the Keflex that you are on and instead take the cefpodoxime. This prescription has been sent to your pharmacy on file. Please follow-up closely with the urologist Dr. House for further discussion of the continued urinary mucus production that you have been having. If you notice any worsening of your symptoms, or any new symptoms such as vomiting, diarrhea, fever, chills, shortness of breath, chest pain, numbness, weakness, or fainting , please return immediately to the emergency department for reevaluation. Please follow up with your primary care provider as soon as possible for reassessment and reevaluation. As always, it was a pleasure participating in your medical care today. Referrals: Joey House MD [ [facility] STAFF PHYSICIAN] - Dimas Lau MD [Primary Care Provider] - Discharge Data Discharge Date/Time-TO BE ENTERED AT DEPARTURE: 08/19/23 00:23
[2023-08-19 00:01] VITALS: BP 153/92; PULSE 114
[2023-08-19] MEDS: cefTRIAXone 2 GM VIAL IM (00:19)
[2023-08-19] MEDS: Acetaminophen 500 MG TAB 1000 MG PO (00:19)
== END 2023-08-19 00:23 | disposition home or self-care (01) ==
PROVIDERS: Emergency Provider Student in an Organized Health Care Education/Training Program; PCP Internal Medicine
DX: T83.098A Other mechanical complication of other urinary catheter, initial encounter (principal); N31.9 Neuromuscular dysfunction of bladder, unspecified; R41.89 Other symptoms and signs involving cognitive functions and awareness; Z98.2 Presence of cerebrospinal fluid drainage device
CPT/HCPCS: 51702; 99283; 99284; J0696

== ENCOUNTER 2023-08-30 23:09 | Emergency (ER) | payer MEDICARE, MEDICAID, SELFPAY ==
[2023-08-30 23:13] VITALS: BP 173/99; PULSE 90; RESP 18; TEMP 36.6; O2SAT 100
--- NOTE | 2023-08-30 23:22 | W.ED.GENAD ---
HPI General Mode of arrival: EMS. Date/Time Provider Initiated Documentation: 08/30/23 23:18. Information obtained by: family. HPI Narrative: 57yo M largely nonverbal, chronic indwelling lyles, presents for dislodged urinary catheter. Lyles fell out. No bleeding or trauma, balloon appeared deflated. Otherwise in his usual state of health, no fevers, malodorous or cloudy urine, or other concerns. Related Data Home Medications Medication Instructions Recorded Confirmed polyethylene glycol 3350 17 17 g PO DAILY 08/25/15 07/14/23 gram/dose oral powder (GlycoLax) bisacodyl 10 mg rectal suppository 10 mg [place] DAILY 04/26/19 07/14/23 (Dulcolax (bisacodyl)) cholecalciferol (vitamin D3) 25 1 unit PO DAILY 04/26/19 07/14/23 mcg (1,000 unit) capsule (Vitamin D3) lorazepam 1 mg tablet 1 mg PO TID PRN 04/26/19 07/14/23 jswvzoebi-fljC-raxbmih-FOS-bromelain 188 mg PO BID infection prevention 04/11/20 07/14/23 1,937 mg-188 mg/15 mL oral liquid #225 mL surgical lubricant jelly 1 applic topical QID #56.7 grams 04/11/20 07/14/23 (Surgilube topical gel) clotrimazole 1 % topical cream 1 applic topical TID PRN PRN rash 04/27/21 07/14/23 #60 grams multivitamin 1 tab PO DAILY 04/06/22 07/14/23 potassium citrate 10 mEq (1,080 See Rx Instructions .Route 07/07/23 08/15/23 mg) tablet,extended release .COMPLEX #60 tabs Previous Rx's Medication Instructions Recorded zkwoiwikc-zrvE-cjciwan-FOS-bromelain 188 mg PO BID infection prevention 04/11/20 1,937 mg-188 mg/15 mL oral liquid #225 mL surgical lubricant jelly 1 applic topical QID #56.7 grams 04/11/20 (Surgilube topical gel) clotrimazole 1 % topical cream 1 applic topical TID PRN PRN rash 04/27/21 #60 grams potassium citrate 10 mEq (1,080 See Rx Instructions .Route 07/07/23 mg) tablet,extended release .COMPLEX #60 tabs Allergies Allergy/AdvReac Type Severity Reaction Status Date / Time carbamazepine [From Tegretol] Allergy Unknown Unknown Verified 07/14/23 20:18 gabapentin [From Neurontin] Allergy Unknown Unknown Verified 07/14/23 20:18 risperidone [From Risperdal] Allergy Unknown Unknown Verified 05/09/23 10:17 Sulfa (Sulfonamide AdvReac Mild Per pt. Verified 05/09/23 10:17 Antibiotics) mother causes stomach ache haldol AdvReac Unknown Uncoded 07/14/23 20:19 General Stated Complaint: Urinary SCHUYLER: 4 Review of Systems Narrative: see HPI Exam Narrative Exam Narrative: General: Alert, in no acute distress. Head: Normocephalic, atraumatic Neck: Trachea midline, ?Neck supple. Cardiac: ?RRR, no murmurs appreciated Resp: No respiratory distress. CTAB. Abd: ?Soft, non-distended, nontender : ?No suprapubic tenderness or fullness. Extremities: ?No peripheral edema. Course Vital Signs Vital signs: Vital Signs Temperature 36.6 C 08/30/23 23:13 Pulse 90 08/30/23 23:13 Respiratory Rate 18 08/30/23 23:13 Blood Pressure 173/99 H 08/30/23 23:13 Pulse Oximetry 100 08/30/23 23:13 Temperature 36.6 C 08/30/23 23:13 Temperature Source Temporal Artery Scan 08/30/23 23:13 Pulse 90 08/30/23 23:13 Respiratory Rate 18 08/30/23 23:13 Respiratory Effort Normal 08/30/23 23:17 Blood Pressure 173/99 H 08/30/23 23:13 Blood Pressure Position Supine 08/30/23 23:13 Pulse Oximetry 100 08/30/23 23:13 Oxygen Delivery Method Room Air 08/30/23 23:13 Oxygen Flow Rate 0 08/30/23 23:13 Medical Decision Making 57yo M largely nonverbal, chronic indwelling lyles, presents for dislodged urinary catheter. History from caregiver at bedside No bleeding or trauma, balloon appeared deflated. No UTI symptoms. No indication for labs or UA. Vital signs and physical exam reassuring. Lyles replaced without complication, drained clear yellow urine. Discharged home; discharge instructions and return precautions were reviewed with caregiver who verbalized understanding; all questions were answered and they are in full agreement with the plan. Quality:SDOH Health Related Social Needs: No Data to Display PFSH All Active Problems (Updated 08/30/23 @ 23:22 by Chelsey Olmedo MD) Lyles catheter problem (Acute) Sepsis (Acute) Complicated UTI (urinary tract infection) (Acute) Community acquired pneumonia (Acute) DVT prophylaxis (Acute) Urinary catheter insertion/adjustment/removal (Acute) Diarrhea (Acute) Neurogenic bladder (Acute) Discharge planning issues (Acute) Bacteremia (Acute) Medical History Urethral stricture Wheelchair dependent 2 assist Developmental non-verbal disorder Urinary retention Meningioma Neurofibromatosis 2 Surgical History S/P craniotomy S/P DEMO EVENT SPECIALIST shunt Social History Smoking/Tobacco Use Status: Never Smoking risk assessment performed?: Yes Alcohol Intake: never Drug use: Never Substance use type: does not use Caregiver/Support person: Yes (parents are primary caretakers) Household members: family Housing: house Additional Social history: not able to assess privately Discharge Plan Disposition Patient Disposition: Home Condition: Good Discharge Details Clinical Impression: Urinary catheter insertion/adjustment/removal Primary Care Provider: Dimas Lau ED Provider: Chelsey Olmedo [place] Meds and New Rx's Prescriptions: Continued multivitamin Tablet 1 tab PO DAILY clotrimazole 1 % cream 1 applic topical TID PRN PRN (Reason: rash) Qty: 60 0RF polyethylene glycol 3350 [GlycoLax] 527 GM powder 17 g PO DAILY fuxt-alzR-jdwtsbx-FOS-bromeln 1,937-188 mg/15 mL liquid 188 mg PO BID Qty: 225 12RF Surgilube Gel 1 applic TP QID Qty: 56.7 12RF potassium citrate 10 mEq (1,080 mg) tablet extended release See Rx Instructions .ROUTE .COMPLEX Qty: 60 6RF Dose Instruction: TAKE ONE TABLET BY MOUTH TWICE A DAY Rx Instructions: TAKE ONE TABLET BY MOUTH TWICE A DAY bisacodyl [Dulcolax (bisacodyl)] 10 mg Suppository 10 mg [place] DAILY lorazepam 1 mg Tablet 1 mg PO TID PRN cholecalciferol (vitamin D3) [Vitamin D3] 1,000 unit Capsule 1 unit PO DAILY Discharge Instructions Instructions: Lyles Catheter Placement and Care (ED) Additional Instructions: Return to the emergency department for new or worsening symptoms. Referrals: Dimas Lau MD [Primary Care Provider] -
== END 2023-08-30 23:54 | disposition home or self-care (01) ==
LOC: ER 08-31 00:21
PROVIDERS: Emergency Provider Student in an Organized Health Care Education/Training Program; PCP Internal Medicine
DX: T83.028A Displacement of other urinary catheter, initial encounter (principal); Y92.89 Other specified places as the place of occurrence of the external cause
CPT/HCPCS: 51702; 99283

== ENCOUNTER 2023-09-30 16:01 | Outpatient (REF) | payer MEDICARE, MEDICAID, SELFPAY ==
[2023-09-30 13:56] LABS: Bilirubin Negative (Negative); Blood Trace-intact (Negative); Clarity Sl Cloudy (Clear); Glucose Negative (Negative); Ketones Negative (Negative); Leukocyte Esterase Large (Negative); Nitrite Positive (Negative); Urobilinogen 0.2 mg/dL (Up to 0.2)
[2023-09-30 14:05] LABS: C & S Indicated? C&S Done As Ordered; WBC >50 HPF (0-5)
== END 2023-09-30 16:02 | disposition home or self-care (01) ==
LOC: LBN 16:01
PROVIDERS: PCP Internal Medicine; Visit Provider Urology
DX: N39.0 Urinary tract infection, site not specified (principal); N31.8 Other neuromuscular dysfunction of bladder
CPT/HCPCS: 81003; 81015; 87086

== ENCOUNTER → 2023-10-03 13:47 | Outpatient (BNVA) | payer MEDICARE, MEDICAID, SELFPAY | PROVIDERS: PCP Internal Medicine; Visit Provider Nurse Practitioner Gerontology | DX: Z46.6 Encounter for fitting and adjustment of urinary device (principal); N31.9 Neuromuscular dysfunction of bladder, unspecified | CPT/HCPCS: 51702; 81003 ==

== ENCOUNTER 2023-10-05 15:01 | Outpatient (REF) | payer MEDICARE, MEDICAID, SELFPAY | END 2023-10-05 15:02 | disposition home or self-care (01) | LOC: LBN 15:01 | PROVIDERS: PCP Internal Medicine; Referring Provider Nurse Practitioner Family; Visit Provider Nurse Practitioner Family | DX: N39.0 Urinary tract infection, site not specified (principal) | CPT/HCPCS: 87086 ==

== ENCOUNTER → 2023-10-31 10:30 | Outpatient (BNVA) | payer MEDICARE, MEDICAID, SELFPAY | PROVIDERS: PCP Family Medicine; Visit Provider Nurse Practitioner Gerontology | DX: Z46.6 Encounter for fitting and adjustment of urinary device (principal); R33.8 Other retention of urine; N31.9 Neuromuscular dysfunction of bladder, unspecified | CPT/HCPCS: 51702 ==

== ENCOUNTER 2023-10-31 11:18 | Outpatient (REF) | payer MEDICARE, MEDICAID, SELFPAY | END 2023-10-31 11:19 | disposition home or self-care (01) | LOC: LBN 11:18 | PROVIDERS: PCP Family Medicine; Visit Provider Nurse Practitioner Gerontology | DX: N39.0 Urinary tract infection, site not specified (principal); N31.8 Other neuromuscular dysfunction of bladder | CPT/HCPCS: 87086 ==

== ENCOUNTER → 2023-11-29 10:22 | Outpatient (BNVA) | payer MEDICARE, MEDICAID, SELFPAY | PROVIDERS: PCP Family Medicine; Visit Provider Nurse Practitioner Gerontology | DX: Z46.6 Encounter for fitting and adjustment of urinary device (principal); N39.0 Urinary tract infection, site not specified; N31.9 Neuromuscular dysfunction of bladder, unspecified | CPT/HCPCS: 51702 ==

== ENCOUNTER 2023-11-29 14:42 | Outpatient (REF) | payer MEDICARE, MEDICAID, SELFPAY ==
[2023-11-29 13:35] LABS: Bilirubin Negative (Negative); Blood Trace-intact (Negative); Clarity Sl Cloudy (Clear); Glucose Negative (Negative); Ketones Negative (Negative); Leukocyte Esterase Small (Negative); Nitrite Negative (Negative); Urobilinogen 0.2 mg/dL (Up to 0.2); pH 6.5 (5-8)
[2023-11-29 13:52] LABS: WBC >50 HPF (0-5)
[2023-11-29 13:53] LABS: Bacteria Rare HPF (Negative); C & S Indicated? C&S Done As Ordered; Crystals Negative HPF (Negative); Epithelial Cells Few HPF (Negative); Mucus Negative (Negative); RBC 0-2 HPF (0-2)
== END 2023-11-29 14:43 | disposition home or self-care (01) ==
LOC: LBN 14:42
PROVIDERS: PCP Family Medicine; Visit Provider Nurse Practitioner Gerontology
DX: N39.0 Urinary tract infection, site not specified (principal)
CPT/HCPCS: 81003; 81015; 87086

== ENCOUNTER → 2023-12-28 11:18 | Outpatient (BNVA) | payer MEDICARE, MEDICAID, SELFPAY | PROVIDERS: PCP Family Medicine; Referring Provider Family Medicine; Visit Provider Nurse Practitioner Gerontology | DX: Z46.6 Encounter for fitting and adjustment of urinary device (principal); N31.9 Neuromuscular dysfunction of bladder, unspecified | CPT/HCPCS: 51702 ==

== ENCOUNTER 2024-01-05 20:35 | Emergency (ER) | payer MEDICARE, MEDICAID, SELFPAY ==
[2024-01-05 20:40] VITALS: BP 183/95; PULSE 61; RESP 18; TEMP 36.5; O2SAT 97
--- NOTE | 2024-01-05 21:29 | ED.GENADUL_ITS ---
Discharge Plan Disposition Patient Disposition: Home Condition: Improving Discharge Details Clinical Impression: Acute UTI Primary Care Provider: Freida Starks ED Provider: Giorgio Yeboah Home Meds and New Rx's Prescriptions: New cefpodoxime 200 mg tablet 200 mg PO BID 7 Days Qty: 14 0RF Rx Instructions: must administer with a meal/food No Action multivitamin Tablet 1 tab PO DAILY clotrimazole 1 % cream 1 applic topical TID PRN PRN (Reason: rash) Qty: 60 0RF sertraline 25 mg tablet 25 mg PO DAILY polyethylene glycol 3350 [GlycoLax] 527 GM powder 17 g PO DAILY potassium citrate 10 mEq (1,080 mg) tablet extended release See Rx Instructions .ROUTE .COMPLEX Qty: 60 6RF Dose Instruction: TAKE ONE TABLET BY MOUTH TWICE A DAY Rx Instructions: TAKE ONE TABLET BY MOUTH TWICE A DAY bisacodyl [Dulcolax (bisacodyl)] 10 mg Suppository 10 mg [place] DAILY lorazepam 1 mg Tablet 1 mg PO TID PRN cholecalciferol (vitamin D3) [Vitamin D3] 1,000 unit Capsule 1 unit PO DAILY Discharge Instructions Instructions: Urinary Tract Infection in Men (ED) Additional Instructions: Please take medication as prescribed. Return to the emergency department for any worsening symptoms HPI General Date/Time Provider Initiated Documentation: 01/05/24 20:43 . HPI Narrative: 58-year-old male history of chronic Li catheter presents brought in by caregiver for evaluation of decreased output in urinary catheter today, noted thick deposits in urinary catheter drain and cloudy urine. No fevers no nausea no vomiting. Small rash on right side of face over the last day. Related Data Home Medications Medication Instructions Recorded Confirmed polyethylene glycol 3350 17 17 g PO DAILY 08/25/15 01/05/24 gram/dose oral powder (GlycoLax) bisacodyl 10 mg rectal suppository 10 mg [place] DAILY 04/26/19 01/05/24 (Dulcolax (bisacodyl)) cholecalciferol (vitamin D3) 25 1 unit PO DAILY 04/26/19 01/05/24 mcg (1,000 unit) capsule (Vitamin D3) lorazepam 1 mg tablet 1 mg PO TID PRN 04/26/19 01/05/24 clotrimazole 1 % topical cream 1 applic topical TID PRN PRN rash 04/27/21 01/05/24 #60 grams multivitamin 1 tab PO DAILY 04/06/22 01/05/24 potassium citrate 10 mEq (1,080 See Rx Instructions .Route 07/07/23 01/05/24 mg) tablet,extended release .COMPLEX #60 tabs sertraline 25 mg tablet 25 mg PO DAILY 12/30/23 01/05/24 cefpodoxime 200 mg tablet 200 mg PO BID 7 days #14 tabs 01/05/24 Previous Rx's Medication Instructions Recorded clotrimazole 1 % topical cream 1 applic topical TID PRN PRN rash 04/27/21 #60 grams potassium citrate 10 mEq (1,080 See Rx Instructions .Route 07/07/23 mg) tablet,extended release .COMPLEX #60 tabs cefpodoxime 200 mg tablet 200 mg PO BID 7 days #14 tabs 01/05/24 Allergies Allergy/AdvReac Type Severity Reaction Status Date / Time carbamazepine [From Tegretol] Allergy Unknown Unknown Verified 01/05/24 20:48 gabapentin [From Neurontin] Allergy Unknown Unknown Verified 01/05/24 20:48 risperidone [From Risperdal] Allergy Unknown Unknown Verified 01/05/24 20:48 Sulfa (Sulfonamide AdvReac Mild Per pt. Verified 01/05/24 20:48 Antibiotics) mother causes stomach ache haldol AdvReac Unknown Other (See Uncoded 01/05/24 20:48 Comment) General Stated Complaint: Urinary SCHUYLER: 3 Review of Systems Narrative: Review of Systems Constitutional: negative Eyes: negative ENT: negative Cardiovascular: negative Respiratory: negative Gastrointestinal: negative : Musculoskeletal: negative Skin: negative Neurologic: negative Psych: negative Exam Narrative Exam Narrative: Physical Examination General: alert, awake, cooperative, resting comfortably, no acute distress HEENT: normocephalic, atraumatic; PERRL, EOM intact, conjunctiva normal; no nasal discharge; moist mucous membranes, oral and pharyngeal mucosa normal, tolerating secretions Neck: supple, trachea midline; full ROM Chest: normal to inspection Respiratory: normal respiratory effort GI: abdomen soft, non-tender, slight suprapubic fullness : Li catheter in place cloudy urine in bag, some sediment in tubing Skin: Small area of localized folliculitis right side of face nonpurulent nonfluctuant Neuro: Chronic contractures upper and lower extremities bilaterally Course Vital Signs Vital signs: Vital Signs Temperature 36.5 C 01/05/24 20:40 Pulse 61 01/05/24 20:40 Respiratory Rate 18 01/05/24 20:40 Blood Pressure 183/95 H 01/05/24 20:40 Pulse Oximetry 97 01/05/24 20:40 Temperature 36.5 C 01/05/24 20:40 Pulse 61 01/05/24 20:40 Respiratory Rate 18 01/05/24 20:40 Respiratory Effort Normal 01/05/24 20:46 Blood Pressure 183/95 H 01/05/24 20:40 Pulse Oximetry 97 01/05/24 20:40 Oxygen Delivery Method Room Air 01/05/24 20:40 Oxygen Flow Rate 0 01/05/24 20:40 Pain Level 0 01/05/24 20:40 Medical Decision Making 58-year-old male chronic indwelling Li catheter presents with decreased output, sediment in tubing and cloudy urine, evidence of mild folliculitis right face without fluctuance or purulence. Afebrile nontoxic, high clinical suspicion for UTI, will exchange Li catheter will send urinalysis, likely to start on antibiotics. No evidence of deep space infection of head or neck on examination, folliculitis can be managed symptomatically at this point home care instructions for any worsening symptoms given 2207 patient resting comfortably, Li catheter change, putting out clear urine, evidence of UTI on urinalysis. Will start on cefpodoxime. Home care instructions and return precautions given Quality:SDOH Health Related Social Needs: No Data to Display PFSH All Active Problems (Updated 01/05/24 @ 22:08 by Giorgio Yeboah MD) Acute UTI (Acute) Neurogenic bladder (Acute) Sepsis (Acute) Complicated UTI (urinary tract infection) (Acute) Community acquired pneumonia (Acute) DVT prophylaxis (Acute) Urinary catheter insertion/adjustment/removal (Acute) Diarrhea (Acute) Neurogenic bladder (Acute) Discharge planning issues (Acute) Bacteremia (Acute) Medical History (Updated 01/05/24 @ 22:08 by Giorgio Yeboah MD) Acute UTI Urethral stricture Wheelchair dependent 2 assist Developmental non-verbal disorder Urinary retention Meningioma Neurofibromatosis 2 Surgical History S/P craniotomy S/P OUTREACH ASSOCIATE shunt Social History Smoking/Tobacco Use Status: Never Smoking risk assessment performed?: Yes Alcohol Intake: never Drug use: Never Substance use type: does not use Caregiver/Support person: Yes (parents are primary caretakers) Household members: family Housing: house Additional Social history: not able to assess privately
[2024-01-05 21:52] LABS: Bilirubin Negative (Negative); Blood Large (Negative); Clarity Cloudy (Clear); Glucose Negative (Negative); Ketones Negative (Negative); Leukocyte Esterase Large (Negative); Nitrite Positive (Negative); Specific Gravity >= 1.030 (1.005-1.025); Urobilinogen 0.2 mg/dL (Up to 0.2)
--- NOTE | 2024-01-05 21:54 | NUR.NOTE ---
Nursing Note: When this RN and SUPERVISOR [employer] took adult brief off patient to insert new Li, scant amount of blood on brief. patient's urethra opening reddened, small tear to opening, caregiver endorsed another manager wound care did not properly put Li Cather strap on leg and Li pulled.
[2024-01-05 21:55] LABS: C & S Indicated? Yes; WBC >50 HPF (0-5)
[2024-01-05] MEDS: Cefpodoxime 200 MG TAB PO (22:38)
--- NOTE | 2024-01-08 07:48 | NUR.NOTE ---
Nursing Note:Critical value reported from micro of a drug resistant organism in the patients urine. Dr. Boone notified and value added to visit documentation.
--- NOTE | 2024-01-08 07:55 | ED.FU.B_ITS ---
Date of service: 01/08/24 Time of Service: 07:55 Follow Up Plan: Patient's urine growing multidrug-resistant organism, reviewed and was put on cefuroxime for dark urine in Li which she currently has. Patient is nonverbal, called and spoke to his home senior etl developer that is with him today and says he is doing well, his urine is clear and he has no fevers and and is acting well today. Given improvement in symptoms advise he can stop his antibiotic, do not feel continuing antibiotic at this time is indicated given improved urine appearance and patient doing well. The urine could be just from colonization. Advised if he spikes a fever as other issues to return to emergency department if she is primary care provider
== END 2024-01-05 22:48 | disposition home or self-care (01) ==
PROVIDERS: Emergency Provider Emergency Medicine; PCP Family Medicine
DX: L73.9 Follicular disorder, unspecified; R21 Rash and other nonspecific skin eruption; Z98.2 Presence of cerebrospinal fluid drainage device; Z96.0 Presence of urogenital implants; Z99.3 Dependence on wheelchair
CPT/HCPCS: 87077; 99283; 81003; 81015; 87086; 87186

== ENCOUNTER → 2024-01-24 10:00 | Outpatient (BNVA) | payer MEDICARE, MEDICAID, SELFPAY | PROVIDERS: PCP Family Medicine; Visit Provider Nurse Practitioner Gerontology | DX: Z46.6 Encounter for fitting and adjustment of urinary device (principal); N39.0 Urinary tract infection, site not specified; N31.9 Neuromuscular dysfunction of bladder, unspecified | CPT/HCPCS: 51702 ==

== ENCOUNTER 2024-01-24 15:21 | Outpatient (REF) | payer MEDICARE, MEDICAID, SELFPAY | END 2024-01-24 15:22 | disposition home or self-care (01) | LOC: LBN 15:21 | PROVIDERS: PCP Family Medicine; Visit Provider Nurse Practitioner Gerontology | DX: N39.0 Urinary tract infection, site not specified (principal) | CPT/HCPCS: 87077; 87086; 87186 ==

== ENCOUNTER → 2024-02-21 10:36 | Outpatient (BNVA) | payer MEDICARE, MEDICAID, SELFPAY | PROVIDERS: PCP Family Medicine; Visit Provider Nurse Practitioner Gerontology | DX: N31.9 Neuromuscular dysfunction of bladder, unspecified (principal) | CPT/HCPCS: 51702 ==

== ENCOUNTER → 2024-02-22 11:25 | Outpatient (BNVA) | payer MEDICARE, MEDICAID, SELFPAY | PROVIDERS: PCP Family Medicine; Referring Provider Family Medicine; Visit Provider Podiatrist | DX: B35.1 Tinea unguium (principal); L60.3 Nail dystrophy; L60.2 Onychogryphosis; I70.203 Unspecified atherosclerosis of native arteries of extremities, bilateral legs; R60.9 Edema, unspecified | CPT/HCPCS: 11719; 11720; 99214 ==

== ENCOUNTER → 2024-03-20 09:55 | Outpatient (BNVA) | payer MEDICARE, MEDICAID, SELFPAY | PROVIDERS: PCP Family Medicine; Visit Provider Nurse Practitioner Gerontology | DX: N31.9 Neuromuscular dysfunction of bladder, unspecified (principal); N35.919 Unspecified urethral stricture, male, unspecified site; N21.0 Calculus in bladder | CPT/HCPCS: 51702 ==

== ENCOUNTER 2024-04-06 16:26 | Emergency (ER) | payer MEDICARE, MEDICAID, SELFPAY ==
[2024-04-06] VITALS (19 sets, daily range): BP systolic 105–176; BP diastolic 46–102; PULSE 62–92; RESP 16; TEMP 36.8; O2SAT 83–96
--- NOTE | 2024-04-06 16:15 | RT.EKG_ITS ---
APPROVED REPORT Exam: Resting ECG Reason for Exam: Abdominal distention Patient Location: E HR:94 bpm ECG Measurements Heart Rate 94 AXIS VA 124 P 24 QRSd 88 QRS -57 QT 394 T [id number] QTc 493 Conclusion Sinus rhythm...normal P axis, V-rate 60- 99 Left anterior fascicular block...axis(240,-40), init forces inf Nonspecific T abnormalities, inferior leads...T <-0.10mV, II III aVF sinus rhythm, left axis, poor baseline due to motion
--- OUTSIDE RECORDS SUMMARY | 2024-04-06 17:00 | XMS_ITS | Data Portability ---
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 [email or web address] Not available 08/02/2023 16:59:52 11/07/2023 11/07/2023 The total time devoted to today's encounter, including both the jebq-az-tcoc time with the patient and/or family/caregiv er and ylj-mtoi-sh-fa ce time I personally spent is 70 minutes. This does not include 50 minutes of driving time. [email or web address] Not available 11/07/2023 21:41:35 02/03/2024 02/03/2024 This appointment was conducted via telephone. A total of 22 minutes was spent at this visit of which at least 50% was spent in direct patient contact. Consent was given to conduct this encounter using appropriate technology. [email or web address] Not available 02/03/2024 15:27:13 Plan of Treatment Reminders Order Date Submit Date Provider Last Modified By Organization Details Last Modified Time Details Appointments Home Visit 2023 10:50A M Not available Not available Not available Lab None recorded. Referral podiatris t referral 2023 024 [facility], [address] , [place], [address], 02/22/2024 15:54:10 Procedures None recorded. Surgeries None recorded. Imaging None recorded. Medication Orders clotrimaz ole 1 % topical cream 2023 024 [facility], [address] [place], [address], 11/07/2023 17:49:02 clindamyc in phosphate 1 % topical solution 2023 024 [facility], [address] [place], [address], 11/07/2023 17:52:12 sertralin e 25 mg tablet 2023 024 [facility], [address] [place], [address], 02/03/2024 15:26:38 azithromy phyllis 250 mg tablet 2023 024 [facility], [address] [place], [address], 02/03/2024 15:26:55 sertralin e 50 mg tablet 2023 024 [facility], [address] [place], [address], 02/03/2024 15:26:57 Patient TargetsNo targets recorded. Patient InstructionsNo instructions recorded. 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 [employer] Referral for Hype rtrophy of nail Referring Physician: Feliberto Starks, Family Medicine, Encounter Date: 11/07/2023 Results Created Date Observation Date Name Description Value Unit Range Abnormal Flag Note LastModifiedBy Organization Detail LastModifiedTime 07/14/20 23 07/14/2023 URINA LYSIS color Yellow yellow Not Available Sundar gore [facility] [address] , [place], [address] 07/14/2023 21:44:47 07/14/2007/14/2023 URINA LYSIS clarity Cloudy clear Not Available Sundar gore [address] [place], [address] 07/14/2023 21:44:47 07/14/2007/14/2023 URINA LYSIS specific gravity 1.020 1.005- 1.025 normal Not Available [address] [place], [address] 07/14/2023 21:44:47 07/14/2007/14/2023 URINA LYSIS pH 7.0 5-8 normal Not Available Sundar gore [address] [place], [address] 07/14/2023 21:44:47 07/14/2007/14/2023 URINA LYSIS leukocyte esterase Large negati ve abnormal Not Available [address] [place], [address] 07/14/2023 21:44:47 07/14/20 23 07/14/2023 URINA LYSIS nitrite Negati ve negati ve Not Available [address] [place], [address] 07/14/2023 21:44:47 07/14/2007/14/2023 URINA LYSIS protein 100 mg/dL negati ve abnormal Not Available [address] [place], [address] 07/14/2023 21:44:47 07/14/20 23 07/14/2023 URINA LYSIS glucose Negati ve mg/dL negati ve Not Available [address] [place], [address] 07/14/2023 21:44:47 07/14/20 23 07/14/2023 URINA LYSIS ketones Negati ve mg/dL negati ve Not Available [address] [place], [address] 07/14/2023 21:44:47 07/14/20 23 07/14/2023 URINA LYSIS urobilinogen 0.2 mg/dL up to 0.2 Not Available [address] [place], [address] 07/14/2023 21:44:47 07/14/20 23 07/14/2023 URINA LYSIS bilirubin Negati ve negati ve Not Available [address] [place], [address] 07/14/2023 21:44:47 07/14/20 23 07/14/2023 URINA LYSIS blood Large negati ve abnormal Not Available [address] [place], [address] 07/14/2023 21:44:47 07/14/2007/14/2023 URINA LYSIS color Yellow yellow Not Available Sundar gore [address] [place], [address] 07/14/2023 21:51:48 07/14/2007/14/2023 URINA LYSIS clarity Cloudy clear Not Available Sundar gore [address] [place], [address] 07/14/2023 21:51:48 07/14/20 23 07/14/2023 URINA LYSIS specific gravity 1.020 1.005- 1.025 normal Not Available [address] [place], [address] 07/14/2023 21:51:48 07/14/2007/14/2023 URINA LYSIS pH 7.0 5-8 normal Not Available Sundar gore [address] [place], [address] 07/14/2023 21:51:48 07/14/20 23 07/14/2023 URINA LYSIS leukocyte esterase Large negati ve abnormal Not Available [address] [place], [address] 07/14/2023 21:51:48 07/14/20 23 07/14/2023 URINA LYSIS nitrite Negati ve negati ve Not Available [address] [place], [address] 07/14/2023 21:51:48 07/14/20 23 07/14/2023 URINA LYSIS protein 100 mg/dL negati ve abnormal Not Available [address] [place], [address] 07/14/2023 21:51:48 07/14/20 23 07/14/2023 URINA LYSIS glucose Negati ve mg/dL negati ve Not Available [address] [place], [address] 07/14/2023 21:51:48 07/14/20 23 07/14/2023 URINA LYSIS ketones Negati ve mg/dL negati ve Not Available [address] [place], [address] 07/14/2023 21:51:48 07/14/20 23 07/14/2023 URINA LYSIS urobilinogen 0.2 mg/dL up to 0.2 Not Available [address] [place], [address] 07/14/2023 21:51:48 07/14/2007/14/2023 URINA LYSIS bilirubin Negati ve negati ve Not Available [address] [place], [address] 07/14/2023 21:51:48 07/14/20 23 07/14/2023 URINA LYSIS blood Large negati ve abnormal Not Available [address] [place], [address] 07/14/2023 21:51:48 07/14/20 23 07/14/2023 MICRO SCOPI C FINDI NGS WBC >50 hpf 0-5 abnormal Not Available [address] [place], [address] 07/14/2023 21:51:48 07/14/20 23 07/14/2023 MICRO SCOPI C FINDI NGS RBC >50 hpf 0-2 abnormal Not Available [address] [place], [address] 07/14/2023 21:51:48 07/14/20 23 07/14/2023 MICRO SCOPI C FINDI NGS epithelial cells Few hpf negati ve Not Available [address] [place], [address] 07/14/2023 21:51:48 07/14/20 23 07/14/2023 MICRO SCOPI C FINDI NGS bacteria Few hpf negati ve Not Available [address] [place], [address] 07/14/2023 21:51:48 07/14/20 23 07/14/2023 MICRO SCOPI C FINDI NGS crystals Negati ve hpf negati ve Not Available [address] [place], [address] 07/14/2023 21:51:48 07/14/20 23 07/14/2023 MICRO SCOPI C FINDI NGS mucus Heavy negati ve Not Available [address] [place], [address] 07/14/2023 21:51:48 07/14/20 23 07/14/2023 MICRO SCOPI C FINDI NGS casts Negati ve lpf negati ve Not Available [address] [place], [address] 07/14/2023 21:51:48 07/14/20 23 07/14/2023 MICRO SCOPI C FINDI NGS C S indicated? Yes Not Available [address] [place], [address] 07/14/2023 21:51:48 07/14/20 23 07/14/2023 COMPL ETE BLOOD COUNT W/DIF F WBC 16.53 10_3/ uL 4.4-10 .8 high Not Available [address] [place], [address] 07/14/2023 22:41:52 07/14/20 23 07/14/2023 COMPL ETE BLOOD COUNT W/DIF F RBC 5.49 10_6/ uL 4.36-5 .78 normal Not Available [address] [place], [address] 07/14/2023 22:41:52 07/14/20 23 07/14/2023 COMPL ETE BLOOD COUNT W/DIF F HGB 15.0 g/dL 13.5-1 7.5 normal Not Available [address] [place], [address] 07/14/2023 22:41:52 07/14/20 23 07/14/2023 COMPL ETE BLOOD COUNT W/DIF F HCT 46.1 % 40.0-5 0.0 normal Not Available [address] [place], [address] 07/14/2023 22:41:52 07/14/20 23 07/14/2023 COMPL ETE BLOOD COUNT W/DIF F MCV 84 fL 80-95 normal Not Available Sundar [address] [place], [address] 07/14/2023 22:41:52 07/14/20 23 07/14/2023 COMPL ETE BLOOD COUNT W/DIF F MCH 27.3 pg 27.0-3 3.0 normal Not Available [address] [place], [address] 07/14/2023 22:41:52 07/14/20 23 07/14/2023 COMPL ETE BLOOD COUNT W/DIF F MCHC 32.5 % 32.0-3 6.0 normal Not Available [address] [place], [address] 07/14/2023 22:41:52 07/14/20 23 07/14/2023 COMPL ETE BLOOD COUNT W/DIF F RDW 13.0 % 11.8-1 4.1 normal Not Available [address] [place], [address] 07/14/2023 22:41:52 07/14/20 23 07/14/2023 COMPL ETE BLOOD COUNT W/DIF F platelet count 217 10_3/ uL 130-40 0 normal Not Available [address] [place], [address] 07/14/2023 22:41:52 07/14/20 23 07/14/2023 COMPL ETE BLOOD COUNT W/DIF F MPV 10.5 fL 8.0-11 .0 normal Not Available [address] [place], [address] 07/14/2023 22:41:52 07/14/20 23 07/14/2023 COMPL ETE BLOOD COUNT W/DIF F neutrophils % 89.4 Not Available Francesca howard [address] [place], [address] 07/14/2023 22:41:52 07/14/20 23 07/14/2023 COMPL ETE BLOOD COUNT W/DIF F lymphocytes % 4.7 Not Available [address] [place], [address] 07/14/2023 22:41:52 07/14/20 23 07/14/2023 COMPL ETE BLOOD COUNT W/DIF F monocytes % 4.8 Not Available [address] [place], [address] 07/14/2023 22:41:52 07/14/20 23 07/14/2023 COMPL ETE BLOOD COUNT W/DIF F eosinophils % 0.2 Not Available [address] [place], [address] 07/14/2023 22:41:52 07/14/20 23 07/14/2023 COMPL ETE BLOOD COUNT W/DIF F basophils % 0.4 Not Available [address] [place], [address] 07/14/2023 22:41:52 07/14/20 23 07/14/2023 COMPL ETE BLOOD COUNT W/DIF F immature grans % 0.5 Not Available [address] [place], [address] 07/14/2023 22:41:52 07/14/20 23 07/14/2023 COMPL ETE BLOOD COUNT W/DIF F nucleated RBC 0.0 % 0.0-0. 3 normal Not Available [address] [place], [address] 07/14/2023 22:41:52 07/14/20 23 07/14/2023 COMPL ETE BLOOD COUNT W/DIF F absolute neutrophil count 14.78 10_3/ uL 1.2-6. 7 high Not Available [address] [place], [address] 07/14/2023 22:41:52 07/14/20 23 07/14/2023 COMPL ETE BLOOD COUNT W/DIF F absolute lymphocyte count 0.78 10_3/ uL 1.2-3. 4 low Not Available [address] [place], [address] 07/14/2023 22:41:52 07/14/20 23 07/14/2023 COMPL ETE BLOOD COUNT W/DIF F absolute monocyte count 0.79 10_3/ uL 0.1-0. 8 normal Not Available [address] [place], [address] 07/14/2023 22:41:52 07/14/20 23 07/14/2023 COMPL ETE BLOOD COUNT W/DIF F absolute eosinophil count 0.03 10_3/ uL 0.0-0. 7 normal Not Available [address] [place], [address] 07/14/2023 22:41:52 07/14/20 23 07/14/2023 COMPL ETE BLOOD COUNT W/DIF F absolute basophil count 0.07 10_3/ uL 0.0-0. 2 normal Not Available [address] [place], [address] 07/14/2023 22:41:52 07/14/20 23 07/14/2023 BASIC METAB OLIC PANEL calcium 8.9 mg/dL 8.5-10 .1 normal Not Available [address] [place], [address] 07/14/2023 23:01:55 07/14/20 23 07/14/2023 BASIC METAB OLIC PANEL glucose 120 mg/dL 74-106 high Not Available Sundar gore [address] [place], [address] 07/14/2023 23:01:55 07/14/20 23 07/14/2023 BASIC METAB OLIC PANEL BUN 17 mg/dL 7-18 normal Not Available Sundar gore [address] [place], [address] 07/14/2023 23:01:55 07/14/20 23 07/14/2023 BASIC METAB OLIC PANEL creatinine 1.5 mg/dL 0.70-1 .30 high Not Available [address] [place], [address] 07/14/2023 23:01:55 07/14/20 23 07/14/2023 BASIC METAB OLIC PANEL estimated GFR 53.63 mL/min /1.73m 2 The eGFR is calcu lated from a serum creat inine using the CKD-E PI 2020 equat ion. Other varia bles requi red for the equat ion are gende r and age; this equat ion does not inclu de a race coeff icien t. This equat ion has simil ar overa ll perfo rmanc e to previ ous equat ions excep t value s may diffe r, in parti cular , in patie nts with highe r value s of eGFR and young er-ag ed adult s. Not Available [address] [place], [address] 07/14/2023 23:01:55 07/14/20 23 07/14/2023 BASIC METAB OLIC PANEL sodium 135 mmol/ L 136-14 5 low Not Available [address] [place], [address] 07/14/2023 23:01:55 07/14/20 23 07/14/2023 BASIC METAB OLIC PANEL potassium 4.2 mmol/ L 3.5-5. 1 normal Not Available [address] [place], [address] 07/14/2023 23:01:55 07/14/20 23 07/14/2023 BASIC METAB OLIC PANEL chloride 100 mmol/ L 98-107 normal Not Available [address] [place], [address] 07/14/2023 23:01:55 07/14/20 23 07/14/2023 BASIC METAB OLIC PANEL CO2 28.6 mmol/ L 21.0-3 2.0 normal Not Available [address] [place], [address] 07/14/2023 23:01:55 07/14/20 23 07/14/2023 BASIC METAB OLIC PANEL anion gap 6.4 mmol/ L 3-11 normal Not Available [address] [place], [address] 07/14/2023 23:01:55 07/14/20 23 07/14/2023 LACTA TE lactate 3.7 mmol/ L 0.6-1. 4 panic high Criti kristine value LACTA TE repor leidy to and readb ack from JESSY MOSQUEDA RN ED at 2237 07/14 by LAB.M DARYL Not Available [address] [place], [address] 07/14/2023 23:11:53 07/14/2007/14/2023 PROCA LCITO SAMIR procalcitoni n < 0.1 NG/mL PCT Value (ng/m L): Inter preta tion: <0.5 Low risk for sever e sepsi s/sep tic shock >or=0 .5 and <2.0 Sever e sepsi s/sep tic shock is possi ble >or=2 .0 High risk for sever e sepsi s/sep tic shock Note: Decis ions regar ding antib iotic thera py shoul d NOT be based solel y on proca lcito samir carei ntrat ions. A proca lcito samir carie ntrat ion of <0.5 ng/mL does not entir aaliyah exclu de syste neelima bacte rial infec tion/ sepsi s. Corre latio n with the full clini kristine, imagi ng, and labor atory findi ngs is requi red for a compl ete sepsi s evalu ation . Addit ional ly, eleva leidy proca lcito samir carie ntrat ions may not alway s be relat ed to syste neelima bacte rial infec tion and can be seen in the setti ng of sever e jeffries , major traum a, major surge ry, pancr eatit is, bowel ische troy, asept ic syste neelima shock (anap hylac tic, hemor rhagi c, or cardi ogeni c), renal insuf ficie ncy, medul donn thyro id cance r, small cell lung cance r, drugs stimu latin g pro-i nflam mator y cytok fuentes, invas tami funga l infec tions , Kawas cindy disea se, among other cause s. Not Available [address] [place], [address] 07/14/2023 23:11:54 07/14/20 23 07/15/2023 URINE CULTU RE urine culture Urine Cultu re ACTIO N ID AND SUSCE PTIBI LITY TO FOLLO W APPEA LORRI Gram Negat tami [place] APPEA LORRI Gram Negat tami [place] APPEA LORRI Mixed Gram Posit tami Kelly COLON Y COUNT Not Available [address] [place], [address] 07/15/2023 12:01:49 07/14/2007/15/2023 URINE CULTU RE urine culture colon ies/m L >100, 000 COLON Y COUNT <10,0 00 COLON Y COUNT 10,00 0 - 50,00 0 Day 1 Resul t ISOLA ALEXANDRA BELOW O:GNR (ORGA NISM ID: 1.1) - GRAM NEGAT TAMI ELGIN Urine Cultu re (ORGA NISM ID: 1.1) - COLON Y COUNT (ORGA NISM ID: 1.1) - >100, 000 O:GNR (ORGA NISM ID: 1.2) - GRAM NEGAT TAMI ELGIN Urine Cultu re (ORGA NISM ID: 1.2) - COLON Y COUNT (ORGA NISM ID: 1.2) - <10,0 00 O:GPF M (ORGA NISM ID: 1.3) - GRAM POSIT TAMI KELLY ,MIXE D Urine Cultu re (ORGA NISM ID: 1.3) - COLON Y COUNT (ORGA NISM ID: 1.3) - 10,00 0 - 50,00 0 Not Available [address] [place], [address] 07/15/2023 12:01:49 07/14/2007/16/2023 BLOOD CULTU RE ( AGE => 9 YRS) blood culture ( age => 9 yrs) Blood Cultu re ( Age => 9 Yrs) NO GROWT H 24 HOURS Not Available [address] [place], [address] 07/16/2023 01:44:19 07/14/2007/16/2023 BLOOD CULTU RE ( AGE => 9 YRS) blood culture ( age => 9 yrs) Blood Cultu re ( Age => 9 Yrs) NO GROWT H 24 HOURS Not Available [address] [place], [address] 07/16/2023 01:45:19 07/14/20 23 07/16/2023 URINE CULTU RE urine culture Urine Cultu re ACTIO N ID AND SUSCE PTIBI LITY TO FOLLO W ACTIO N ID AND SUSCE PTIBI LITY TO FOLLO W APPEA LORRI Gram Negat tami [place] APPEA LORRI Gram Negat tami [place] APPEA LORRI Mixed Gram Posit tami Kelly APPEA LORRI Gram Negat tami [place] APPEA LORRI Gram Negat tami [place] APPEA LORRI Mixed Gram Posit tami Kelly COLON Y COUNT Not Available [address] [place], [address] 07/16/2023 12:09:38 07/14/2007/16/2023 URINE CULTU RE urine culture colon ies/m L >100, 000 COLON Y COUNT <10,0 00 COLON Y COUNT 10,00 0 - 50,00 0 COLON Y COUNT >100, 000 COLON Y COUNT <10,0 00 COLON Y COUNT 10,00 0 - 50,00 0 Day 1 Resul t ISOLA ALEXANDRA BELOW Day 2 Resul t ISOLA ALEXANDRA BELOW O:GNR (ORGA NISM ID: 1.1) - GRAM NEGAT TAMI ELGIN Urine Cultu re (ORGA NISM ID: 1.1) - COLON Y COUNT (ORGA NISM ID: 1.1) - >100, 000 O:GNR (ORGA NISM ID: 1.2) - GRAM NEGAT TAMI ELGIN Urine Cultu re (ORGA NISM ID: 1.2) - COLON Y COUNT (ORGA NISM ID: 1.2) - <10,0 00 O:GPF M (ORGA NISM ID: 1.3) - GRAM POSIT TAMI KELLY ,MIXE D Urine Cultu re (ORGA NISM ID: 1.3) - COLON Y COUNT (ORGA NISM ID: 1.3) - 10,00 0 - 50,00 0 Not Available [address] [place], [address] 07/16/2023 12:09:38 07/14/20 23 07/17/2023 BLOOD CULTU RE ( AGE => 9 YRS) blood culture ( age => 9 yrs) Blood Cultu re ( Age => 9 Yrs) NO GROWT H 48 HOURS Not Available [address] [place], [address] 07/17/2023 01:46:15 07/14/20 23 07/17/2023 BLOOD CULTU RE ( AGE => 9 YRS) blood culture ( age => 9 yrs) Blood Cultu re ( Age => 9 Yrs) NO GROWT H 48 HOURS Not Available [address] [place], [address] 07/17/2023 01:47:15 07/14/20 23 07/17/2023 URINE CULTU RE urine culture Urine Cultu re ACTIO N ID AND SUSCE PTIBI LITY TO FOLLO W ACTIO N ID AND SUSCE PTIBI LITY TO FOLLO W APPEA LORRI Gram Negat tami [place] APPEA LORRI Gram Negat tami [place] APPEA LORRI Mixed Gram Posit tami Kelly APPEA LORRI Gram Negat tami [place] APPEA LORRI Gram Negat tami [place] APPEA LORRI Mixed Gram Posit tami Kelly APPEA LORRI Gram Negat tami [place] APPEA LORRI Gram Negat tami [place] APPEA LORRI Mixed Gram Posit tami Kelly COLON Y COUNT Not Available [address] [place], [address] 07/17/2023 08:04:26 07/14/2007/17/2023 URINE CULTU RE urine culture colon ies/m L >100, 000 COLON Y COUNT <10,0 00 COLON Y COUNT 10,00 0 - 50,00 0 COLON Y COUNT >100, 000 COLON Y COUNT <10,0 00 COLON Y COUNT 10,00 0 - 50,00 0 COLON Y COUNT >100, 000 COLON Y COUNT <10,0 00 COLON Y COUNT 10,00 0 - 50,00 0 Day 1 Resul t ISOLA ALEXANDRA BELOW Day 2 Resul t ISOLA ALEXANDRA BELOW Day 3 Resul t ISOLA ALEXANDRA BELOW O:ENT CPX (ORGA NISM ID: 1.1) - ENTER OBACT ER CLOAC AE COMPL EX Urine Cultu re (ORGA NISM ID: 1.1) - COLON Y COUNT (ORGA NISM ID: 1.1) - >100, 000 O:GNR (ORGA NISM ID: 1.2) - GRAM NEGAT TAMI ELGIN Urine Cultu re (ORGA NISM ID: 1.2) - COLON Y COUNT (ORGA NISM ID: 1.2) - <10,0 00 O:GPF M (ORGA NISM ID: 1.3) - GRAM POSIT TAMI KELLY ,MIXE D Urine Cultu re (ORGA NISM ID: 1.3) - COLON Y COUNT (ORGA NISM ID: 1.3) - 10,00 0 - 50,00 0 ORGAN ISM ID: 1.1 ANTIB IOTIC INTER PRETA TION NEELIMA STATU S Cefaz annalisa R >=64 F Cefta zidim e S <= 1 F CEFTR IAXON E S <=1 F Cipro floxa phyllis S <=0.2 5 F Genta micin S <=1 F Nitro furan toin S 32 F Imipe nem S <=0.2 5 F Levof loxac in S <=0.1 2 F Tobra mycin S <=1 F Trime thopr im/Bravo lfame thoxa zole S <=20 F Piper acill in/Ta zobac sargent S <=4 F Not Available [address] [place], [address] 07/17/2023 08:04:26 07/14/20 23 07/18/2023 BLOOD CULTU RE ( AGE => 9 YRS) blood culture ( age => 9 yrs) Blood Cultu re ( Age => 9 Yrs) NO GROWT H 72 HOURS Not Available [address] [place], [address] 07/18/2023 01:47:31 07/14/20 23 07/18/2023 BLOOD CULTU RE ( AGE => 9 YRS) blood culture ( age => 9 yrs) Blood Cultu re ( Age => 9 Yrs) NO GROWT H 72 HOURS Not Available [address] [place], [address] 07/18/2023 01:47:33 07/14/20 23 07/19/2023 BLOOD CULTU RE ( AGE => 9 YRS) blood culture ( age => 9 yrs) Blood Cultu re ( Age => 9 Yrs) NO GROWT H 96 HOURS Not Available [address] [place], [address] 07/19/2023 01:47:47 07/14/2007/19/2023 BLOOD CULTU RE ( AGE => 9 YRS) blood culture ( age => 9 yrs) Blood Cultu re ( Age => 9 Yrs) NO GROWT H 96 HOURS Not Available [address] [place], [address] 07/19/2023 01:47:50 07/14/2007/20/2023 BLOOD CULTU RE ( AGE => 9 YRS) blood culture ( age => 9 yrs) Blood Cultu re ( Age => 9 Yrs) NO GROWT H 120 HOURS Not Available [address] [place], [address] 07/20/2023 01:48:59 07/14/2007/20/2023 BLOOD CULTU RE ( AGE => 9 YRS) blood culture ( age => 9 yrs) Blood Cultu re ( Age => 9 Yrs) NO GROWT H 120 HOURS Not Available [address] [place], [address] 07/20/2023 01:49:01 07/15/2007/15/2023 LACTA TE lactate 1.2 mmol/ L 0.6-1. 4 normal Not Available [address] [place], [address] 07/15/2023 01:34:59 09/30/1909/30/2023 URINA LYSIS color Yellow yellow Not Available Sundar gore [address] [place], [address] 09/30/2023 14:00:17 09/30/19 24 09/30/2023 URINA LYSIS clarity Sl Cloudy clear Not Available Gurdeep graf [address] [place], [address] 09/30/2023 14:00:17 09/30/19 24 09/30/2023 URINA LYSIS specific gravity 1.020 1.005- 1.025 normal Not Available [address] [place], [address] 09/30/2023 14:00:17 09/30/19 24 09/30/2023 URINA LYSIS pH 7.0 5-8 normal Not Available Sundar gore [address] [place], [address] 09/30/2023 14:00:17 09/30/19 24 09/30/2023 URINA LYSIS leukocyte esterase Large negati ve abnormal Not Available [address] [place], [address] 09/30/2023 14:00:17 09/30/19 24 09/30/2023 URINA LYSIS nitrite Positi ve negati ve abnormal Not Available [address] [place], [address] 09/30/2023 14:00:17 09/30/19 24 09/30/2023 URINA LYSIS protein Trace mg/dL neg-tr cheryl Not Available [address] [place], [address] 09/30/2023 14:00:17 09/30/19 24 09/30/2023 URINA LYSIS glucose Negati ve mg/dL negati ve Not Available [address] [place], [id number] 09/30/2023 14:00:17 09/30/19 24 09/30/2023 URINA LYSIS ketones Negati ve mg/dL negati ve Not Available [address] [place], [id number] 09/30/2023 14:00:17 09/30/19 24 09/30/2023 URINA LYSIS urobilinogen 0.2 mg/dL up to 0.2 Not Available [address] [place], [id number] 09/30/2023 14:00:17 09/30/19 24 09/30/2023 URINA LYSIS bilirubin Negati ve negati ve Not Available [address] [place], [id number] 09/30/2023 14:00:17 09/30/19 24 09/30/2023 URINA LYSIS blood Trace- intact negati ve abnormal Not Available [address] [place], [id number] 09/30/2023 14:00:17 09/30/19 24 09/30/2023 URINA LYSIS color Yellow yellow Not Available Sundar gore [address] [place], [id number] 09/30/2023 14:08:17 09/30/19 24 09/30/2023 URINA LYSIS clarity Sl Cloudy clear Not Available Gurdeep graf [address] [place], [id number] 09/30/2023 14:08:17 09/30/19 24 09/30/2023 URINA LYSIS specific gravity 1.020 1.005- 1.025 normal Not Available [address] [place], [id number] 09/30/2023 14:08:17 09/30/19 24 09/30/2023 URINA LYSIS pH 7.0 5-8 normal Not Available Sundar gore [address] [place], [id number] 09/30/2023 14:08:17 09/30/19 24 09/30/2023 URINA LYSIS leukocyte esterase Large negati ve abnormal Not Available [address] [place], [id number] 09/30/2023 14:08:17 09/30/19 24 09/30/2023 URINA LYSIS nitrite Positi ve negati ve abnormal Not Available [address] [place], [id number] 09/30/2023 14:08:17 09/30/19 24 09/30/2023 URINA LYSIS protein Trace mg/dL neg-tr cheryl Not Available [address] [place], [address] 09/30/2023 14:08:17 09/30/19 24 09/30/2023 URINA LYSIS glucose Negati ve mg/dL negati ve Not Available [address] [place], [address] 09/30/2023 14:08:17 09/30/19 24 09/30/2023 URINA LYSIS ketones Negati ve mg/dL negati ve Not Available [address] [place], [address] 09/30/2023 14:08:17 09/30/19 24 09/30/2023 URINA LYSIS urobilinogen 0.2 mg/dL up to 0.2 Not Available [address] [place], [address] 09/30/2023 14:08:17 09/30/19 24 09/30/2023 URINA LYSIS bilirubin Negati ve negati ve Not Available [address] [place], [address] 09/30/2023 14:08:17 09/30/19 24 09/30/2023 URINA LYSIS blood Trace- intact negati ve abnormal Not Available [address] [place], [address] 09/30/2023 14:08:17 09/30/19 24 09/30/2023 MICRO SCOPI C FINDI NGS WBC >50 hpf 0-5 abnormal WBC's obscu re micro scopi c exam. JH Not Available [address] [place], [address] 09/30/2023 14:08:18 09/30/19 24 09/30/2023 MICRO SCOPI C FINDI NGS C S indicated? C S Done As Ordere d Not Available [address] [place], [address] 09/30/2023 14:08:18 09/30/19 24 10/02/2023 URINE CULTU RE urine culture Urine Cultu re PRESE NCE OF MULTI PLE ORGAN ISMS - SUGGE STIVE OF CONTA MINAT ED COLLE CTION , OR LUIS ANTONIO TER BIOFI LM. IF CLINI JEREMIAS INDIC ATED: PLEAS E SUBMI T CLEAN CATCH , OR STRAI GHT CATH SPECI MEN. IF FROM INDWE LLING LUIS ANTONIO TER, PLEAS E SUBMI T SPECI MEN POST LUIS ANTONIO TER DALEY E. [facility] Mixed Gram Negat tami Kelly [facility] Mixed Gram Negat tami Kelly [facility] Mixed Gram Posit tami Kelly COLON Y COUNT Not Available [address] [place], [address] 10/02/2023 08:35:13 09/30/19 24 10/02/2023 URINE CULTU RE urine culture colon ies/m L >100, 000 COLON Y COUNT >100, 000 COLON Y COUNT <10,0 00 Day 1 Resul t [facility] BELOW Day 2 Resul t [facility] ALEX[facility] BELOW O:GNF M (ORGA NISM ID: 1.1) - GRAM NEGAT TAMI KELLY ,MIXE D Urine Cultu re (ORGA NISM ID: 1.1) - COLON Y COUNT (ORGA NISM ID: 1.1) - >100, 000 O:GPF M (ORGA NISM ID: 1.2) - GRAM POSIT TAMI KELLY ,MIXE D Urine Cultu re (ORGA NISM ID: 1.2) - COLON Y COUNT (ORGA NISM ID: 1.2) - <10,0 00 Not Available [address] [place], [address] 10/02/2023 08:35:13 10/05/19 24 10/05/2023 URINE CULTU RE urine culture Urine Cultu re Comme nt: New cath place d at time of urine colle ction . Comme nt: New cath place d at time of urine colle ction . [facility] Gram Posit tami Kelly [facility] Gram Negat tami [place] COLON Y COUNT Not Available [address] [place], [address] 10/06/2023 15:35:25 10/05/19 24 10/06/2023 URINE CULTU RE urine culture colon ies/m L <10,0 00 COLON Y COUNT <10,0 00 Day 1 Resul t IS[facility] ALEXANDRA BELOW O:GPF (ORGA NISM ID: 1.1) - GRAM POSIT TAMI KELLY Urine Cultu re (ORGA NISM ID: 1.1) - COLON Y COUNT (ORGA NISM ID: 1.1) - <10,0 00 O:GNR (ORGA NISM ID: 1.2) - GRAM NEGAT TAMI ELGIN Urine Cultu re (ORGA NISM ID: 1.2) - COLON Y COUNT (ORGA NISM ID: 1.2) - <10,0 00 Not Available [address] [place], [address] 10/06/2023 15:35:25 10/05/19 24 10/05/2023 URINE CULTU RE urine culture Urine Cultu re Comme nt: New cath place d at time of urine colle ction . Comme nt: New cath place d at time of urine colle ction . [facility] Gram Posit tami Kelly [facility] Gram Negat tami [place] [facility] Gram Posit tami Kelly [facility] Gram Negat tami [place] COLON Y COUNT Not Available [address] [place], [address] 10/07/2023 09:54:41 10/05/19 24 10/07/2023 URINE CULTU RE urine culture colon ies/m L <10,0 00 COLON Y COUNT <10,0 00 COLON Y COUNT <10,0 00 COLON Y COUNT <10,0 00 Day 1 Resul t [facility] ALEX[facility]A BELOW Day 2 Resul t [facility] ALEX[facility]DRA BELOW O:GPF (ORGA NISM ID: 1.1) - GRAM POSIT TAMI KELLY Urine Cultu re (ORGA NISM ID: 1.1) - COLON Y COUNT (ORGA NISM ID: 1.1) - <10,0 00 O:GNR (ORGA NISM ID: 1.2) - GRAM NEGAT TAMI ELGIN Urine Cultu re (ORGA NISM ID: 1.2) - COLON Y COUNT (ORGA NISM ID: 1.2) - <10,0 00 Not Available [address] [place], [address] 10/07/2023 09:54:41 10/31/19 24 10/31/2023 URINE CULTU RE urine culture Urine Cultu re Comme nt: new place ment of indwe lling lyles cath Comme nt: new place ment of indwe lling lyles cath Possi ble conta minat ed colle ction [facility] Mixed Gram Posit tami Kelly COLON Y COUNT Not Available [address] [place], [address] 11/01/2023 11:15:19 10/31/19 24 11/01/2023 URINE CULTU RE urine culture colon ies/m L 10,00 0 - 50,00 0 Day 1 Resul t [facility] ALEXANDRA BELOW O:GPF M (ORGA NISM ID: 1.1) - GRAM POSIT TAMI KELLY ,MIXE D Urine Cultu re (ORGA NISM ID: 1.1) - COLON Y COUNT (ORGA NISM ID: 1.1) - 10,00 0 - 50,00 0 Not Available [address] [place], [address] 11/01/2023 11:15:19 10/31/19 24 10/31/2023 URINE CULTU RE urine culture Urine Cultu re Comme nt: new place ment of indwe lling lyles cath Comme nt: new place ment of indwe lling lyles cath [facility] Gram Posit tami Kelly [facility] Yeast COLON Y COUNT Not Available [address] [place], [address] 11/02/2023 08:37:44 10/31/19 24 11/02/2023 URINE CULTU RE urine culture colon ies/m L 10,00 0 - 50,00 0 COLON Y COUNT 10,00 0 - 50,00 0 Day 1 Resul t [facility] ALEX[facility]A BELOW Day 2 Resul t [facility] ALEX[facility]DRA BELOW O:YEA (ORGA NISM ID: 1.1) - YEAST Urine Cultu re (ORGA NISM ID: 1.1) - COLON Y COUNT (ORGA NISM ID: 1.1) - 10,00 0 - 50,00 0 Not Available [address] [place], [address] 11/02/2023 08:37:44 11/29/19 24 11/29/2023 URINA LYSIS color Yellow yellow Not Available Sundar gore [address] [place], [address] 11/29/2023 13:40:12 11/29/19 24 11/29/2023 URINA LYSIS clarity Sl Cloudy clear Not Available Gurdeep graf [address] [facility] [place], [address] 11/29/2023 13:40:12 11/29/19 24 11/29/2023 URINA LYSIS specific gravity 1.020 1.005- 1.025 normal Not Available [address] [place], [address] 11/29/2023 13:40:12 11/29/19 24 11/29/2023 URINA LYSIS pH 6.5 5-8 normal Not Available Sundar gore [address] [place], [address] 11/29/2023 13:40:12 11/29/19 24 11/29/2023 URINA LYSIS leukocyte esterase Small negati ve abnormal Not Available [address] [place], [address] 11/29/2023 13:40:12 11/29/19 24 11/29/2023 URINA LYSIS nitrite Negati ve negati ve Not Available [address] [place], [address] 11/29/2023 13:40:12 11/29/19 24 11/29/2023 URINA LYSIS protein 100 mg/dL neg-tr cheryl abnormal Not Available [address] [place], [address] 11/29/2023 13:40:12 11/29/19 24 11/29/2023 URINA LYSIS glucose Negati ve mg/dL negati ve Not Available [address] [place], [address] 11/29/2023 13:40:12 11/29/19 24 11/29/2023 URINA LYSIS ketones Negati ve mg/dL negati ve Not Available [address] [place], [address] 11/29/2023 13:40:12 11/29/19 24 11/29/2023 URINA LYSIS urobilinogen 0.2 mg/dL up to 0.2 Not Available [address] [place], [address] 11/29/2023 13:40:12 11/29/19 24 11/29/2023 URINA LYSIS bilirubin Negati ve negati ve Not Available [address] [place], [address] 11/29/2023 13:40:12 11/29/19 24 11/29/2023 URINA LYSIS blood Trace- intact negati ve abnormal Not Available [address] [place], [address] 11/29/2023 13:40:12 11/29/19 24 11/29/2023 URINA LYSIS color Yellow yellow Not Available Sundar gore [address] [place], [address] 11/29/2023 13:57:16 11/29/19 24 11/29/2023 URINA LYSIS clarity Sl Cloudy clear Not Available Gurdeep graf [address] [place], [address] 11/29/2023 13:57:16 11/29/19 24 11/29/2023 URINA LYSIS specific gravity 1.020 1.005- 1.025 normal Not Available [address] [place], [address] 11/29/2023 13:57:16 11/29/19 24 11/29/2023 URINA LYSIS pH 6.5 5-8 normal Not Available Sundar gore [address] [place], [address] 11/29/2023 13:57:16 11/29/19 24 11/29/2023 URINA LYSIS leukocyte esterase Small negati ve abnormal Not Available [address] [place], [address] 11/29/2023 13:57:16 11/29/19 24 11/29/2023 URINA LYSIS nitrite Negati ve negati ve Not Available [address] [place], [address] 11/29/2023 13:57:16 11/29/19 24 11/29/2023 URINA LYSIS protein 100 mg/dL neg-tr cheryl abnormal Not Available [address] [place], [address] 11/29/2023 13:57:16 11/29/19 24 11/29/2023 URINA LYSIS glucose Negati ve mg/dL negati ve Not Available [address] [place], [address] 11/29/2023 13:57:16 11/29/19 24 11/29/2023 URINA LYSIS ketones Negati ve mg/dL negati ve Not Available [address] [place], [address] 11/29/2023 13:57:16 11/29/19 24 11/29/2023 URINA LYSIS urobilinogen 0.2 mg/dL up to 0.2 Not Available [address] [place], [address] 11/29/2023 13:57:16 11/29/19 24 11/29/2023 URINA LYSIS bilirubin Negati ve negati ve Not Available [address] [place], [address] 11/29/2023 13:57:16 11/29/19 24 11/29/2023 URINA LYSIS blood Trace- intact negati ve abnormal Not Available [address] [place], [address] 11/29/2023 13:57:16 11/29/19 24 11/29/2023 MICRO SCOPI C FINDI NGS WBC >50 hpf 0-5 abnormal Not Available [address] [place], [address] 11/29/2023 13:57:16 11/29/19 24 11/29/2023 MICRO SCOPI C FINDI NGS RBC 0-2 hpf 0-2 Not Available [address] [place], [address] 11/29/2023 13:57:16 11/29/19 24 11/29/2023 MICRO SCOPI C FINDI NGS epithelial cells Few hpf negati ve Not Available [address] [place], [address] 11/29/2023 13:57:16 11/29/19 24 11/29/2023 MICRO SCOPI C FINDI NGS bacteria Rare hpf negati ve Not Available [address] [place], [address] 11/29/2023 13:57:16 11/29/19 24 11/29/2023 MICRO SCOPI C FINDI NGS crystals Negati ve hpf negati ve Not Available [address] [place], [address] 11/29/2023 13:57:16 11/29/19 24 11/29/2023 MICRO SCOPI C FINDI NGS mucus Negati ve negati ve Not Available [address] [place], [address] 11/29/2023 13:57:16 11/29/19 24 11/29/2023 MICRO SCOPI C FINDI NGS casts 5-10 WBC lpf negati ve Not Available [address] [place], [address] 11/29/2023 13:57:16 11/29/19 24 11/29/2023 MICRO SCOPI C FINDI NGS C S indicated? C S Done As Ordere d Not Available [address] [place], [address] 11/29/2023 13:57:16 11/29/19 24 11/29/2023 URINE CULTU RE urine culture Urine Cultu re Comme nt: new lyles place d at time of sampl e colle ction Comme nt: new lyles place d at time of sampl e colle ction [facility] Gram Negat tami [place] COLON Y COUNT Not Available [address] [place], [address] 11/30/2023 09:04:55 11/29/19 24 11/30/2023 URINE CULTU RE urine culture colon ies/m L <10,0 00 Day 1 Resul t IS[facility]A ALEXANDRA BELOW O:GNR (ORGA NISM ID: 1.1) - GRAM NEGAT TAMI ELGIN Urine Cultu re (ORGA NISM ID: 1.1) - COLON Y COUNT (ORGA NISM ID: 1.1) - <10,0 00 Not Available [address] [place], [address] 11/30/2023 09:04:55 11/29/19 24 11/29/2023 URINE CULTU RE urine culture Urine Cultu re Comme nt: new lyles place d at time of sampl e colle ction Comme nt: new lyles place d at time of sampl e colle ction [facility] Gram Negat tami [place] [facility] Gram Negat tami [place] COLON Y COUNT Not Available [address] [place], [address] 12/01/2023 11:38:49 11/29/19 24 12/01/2023 URINE CULTU RE urine culture colon ies/m L <10,0 00 COLON Y COUNT 10,00 0 - 50,00 0 Day 1 Resul t [facility] ALEXANDRA BELOW Day 2 Resul t [facility] ALEXANDRA BELOW O:GNR (ORGA NISM ID: 1.1) - GRAM NEGAT TAMI ELGIN Urine Cultu re (ORGA NISM ID: 1.1) - COLON Y COUNT (ORGA NISM ID: 1.1) - <10,0 00 Not Available [address] [place], [address] 12/01/2023 11:38:49 01/05/20 24 01/05/2024 URINA LYSIS color Yellow yellow Not Available Sundar gore [address] [place], [address] 01/05/2024 21:53:05 01/05/20 24 01/05/2024 URINA LYSIS clarity Cloudy clear Not Available Sundar gore [address] [place], [address] 01/05/2024 21:53:05 01/05/20 24 01/05/2024 URINA LYSIS specific gravity >= 1.030 1.005- 1.025 high Not Available [address] [place], [address] 01/05/2024 21:53:05 01/05/20 24 01/05/2024 URINA LYSIS pH 6.0 5-8 normal Not Available Sundar gore [address] [place], [address] 01/05/2024 21:53:05 01/05/20 24 01/05/2024 URINA LYSIS leukocyte esterase Large negati ve abnormal Not Available [address] [place], [address] 01/05/2024 21:53:05 01/05/20 24 01/05/2024 URINA LYSIS nitrite Positi ve negati ve abnormal Not Available [address] [place], [address] 01/05/2024 21:53:05 01/05/20 24 01/05/2024 URINA LYSIS protein 100 mg/dL neg-tr cheryl abnormal Not Available [address] [place], [address] 01/05/2024 21:53:05 01/05/20 24 01/05/2024 URINA LYSIS glucose Negati ve mg/dL negati ve Not Available [address] [place], [address] 01/05/2024 21:53:05 01/05/20 24 01/05/2024 URINA LYSIS ketones Negati ve mg/dL negati ve Not Available [address] [place], [address] 01/05/2024 21:53:05 01/05/20 24 01/05/2024 URINA LYSIS urobilinogen 0.2 mg/dL up to 0.2 Not Available [address] [place], [address] 01/05/2024 21:53:05 01/05/20 24 01/05/2024 URINA LYSIS bilirubin Negati ve negati ve Not Available [address] [place], [address] 01/05/2024 21:53:05 01/05/20 24 01/05/2024 URINA LYSIS blood Large negati ve abnormal Not Available [address] [place], [address] 01/05/2024 21:53:05 01/05/20 24 01/05/2024 URINA LYSIS color Yellow yellow Not Available Sundar gore [address] [place], [address] 01/05/2024 21:58:06 01/05/20 24 01/05/2024 URINA LYSIS clarity Cloudy clear Not Available Sundar gore [address] [place], [address] 01/05/2024 21:58:06 01/05/20 24 01/05/2024 URINA LYSIS specific gravity >= 1.030 1.005- 1.025 high Not Available [address] [place], [address] 01/05/2024 21:58:06 01/05/20 24 01/05/2024 URINA LYSIS pH 6.0 5-8 normal Not Available Sundar gore [address] [place], [address] 01/05/2024 21:58:06 01/05/20 24 01/05/2024 URINA LYSIS leukocyte esterase Large negati ve abnormal Not Available [address] [place], [address] 01/05/2024 21:58:06 01/05/20 24 01/05/2024 URINA LYSIS nitrite Positi ve negati ve abnormal Not Available [address] [place], [address] 01/05/2024 21:58:06 01/05/20 24 01/05/2024 URINA LYSIS protein 100 mg/dL neg-tr cheryl abnormal Not Available [address] [place], [address] 01/05/2024 21:58:06 01/05/20 24 01/05/2024 URINA LYSIS glucose Negati ve mg/dL negati ve Not Available [address] [place], [address] 01/05/2024 21:58:06 01/05/20 24 01/05/2024 URINA LYSIS ketones Negati ve mg/dL negati ve Not Available [address] [place], [address] 01/05/2024 21:58:06 01/05/20 24 01/05/2024 URINA LYSIS urobilinogen 0.2 mg/dL up to 0.2 Not Available [address] [place], [address] 01/05/2024 21:58:06 01/05/20 24 01/05/2024 URINA LYSIS bilirubin Negati ve negati ve Not Available [address] [place], [address] 01/05/2024 21:58:06 01/05/20 24 01/05/2024 URINA LYSIS blood Large negati ve abnormal Not Available [address] [place], [address] 01/05/2024 21:58:06 01/05/20 24 01/05/2024 MICRO SCOPI C FINDI NGS WBC >50 hpf 0-5 abnormal WBC's obscu re micro scopi c exam. Not Available [address] [place], [address] 01/05/2024 21:58:06 01/05/20 24 01/05/2024 MICRO SCOPI C FINDI NGS RBC hpf 0-2 PRESE NT BUT UNABL E TO QUANT ITATE DUE TO WBC's obscu re micro scopi c exam. Not Available [address] [place], [address] 01/05/2024 21:58:06 01/05/20 24 01/05/2024 MICRO SCOPI C FINDI NGS C S indicated? Yes Not Available [address] [place], [address] 01/05/2024 21:58:06 01/05/20 24 01/07/2024 URINE CULTU RE urine culture Urine Cultu re ACTIO N ID AND SUSCE PTIBI LITY TO FOLLO W ACTIO N ID AND SUSCE PTIBI LITY TO FOLLO W [facility]A [facility]RI Gram Negat tami [place] APPEA LORRI Gram Negat tami [place] COLON Y COUNT Not Available [address] [place], [address] 01/07/2024 09:38:29 01/05/20 24 01/07/2024 URINE CULTU RE urine culture colon ies/m L >100, 000 COLON Y COUNT >100, 000 Day 1 Resul t [facility]A ALEXANDRA BELOW O:GNR (ORGA NISM ID: 1.1) - GRAM NEGAT TAMI ELGIN Urine Cultu re (ORGA NISM ID: 1.1) - COLON Y COUNT (ORGA NISM ID: 1.1) - >100, 000 O:GNR (ORGA NISM ID: 1.2) - GRAM NEGAT TAMI ELGIN Urine Cultu re (ORGA NISM ID: 1.2) - COLON Y COUNT (ORGA NISM ID: 1.2) - >100, 000 Not Available [address] [place], [address] 01/07/2024 09:38:29 01/05/2001/08/2024 URINE CULTU RE urine culture Urine Cultu re Multi drug resis tant organ ism(M PRASAD) showi ng Exten ded-s pectr um beta- lacta mases (ESBL ) activ ity. Exten ded-s pectr um beta- lacta mases are enzym es that confe r resis tance to most beta- lacta m antib iotic s, inclu ding penic illin s, cepha lospo rins, and the monob actam aztre onam. Repor leidy ESBL resul ts to and read back from MARCO RAPHAEL 01/07 at 0744 by LAB.L EEL ACTIO N ID AND SUSCE PTIBI LITY TO FOLLO W ACTIO N ID AND SUSCE PTIBI LITY TO FOLLO W APPEA LORRI Gram Negat tami [place] [facility]A LORRI Gram Negat tami [place] APPEA LORRI Gram Negat tami [place] APPEA LORRI Gram Negat tami [place] COLON Y COUNT Not Available [address] [place], [address] 01/08/2024 07:49:32 01/05/20 24 01/08/2024 URINE CULTU RE urine culture colon ies/m L >100, 000 COLON Y COUNT >100, 000 COLON Y COUNT >100, 000 COLON Y COUNT >100, 000 Day 1 Resul t [facility]LEX[facility] BELOW Day 2 Resul t [facility] ALEXANDRA BELOW O:KLE PNE (ORGA NISM ID: 1.1) - Klebs iella pneum oniae Urine Cultu re (ORGA NISM ID: 1.1) - COLON Y COUNT (ORGA NISM ID: 1.1) - >100, 000 O:KLE PNE (ORGA NISM ID: 1.2) - Klebs iella pneum oniae Urine Cultu re (ORGA NISM ID: 1.2) - COLON Y COUNT (ORGA NISM ID: 1.2) - >1 00,00 0 ORGAN ISM ID: 1.1 ANTIB IOTIC INTER PRETA TION NEELIMA STATU S Ampic illin R >=32 F Ampic illin /Sulb actam R >=32 F Cefaz annalisa R >=64 F Cefta zidim e R 4 F CEFTR IAXON E R >=64 F Cipro floxa phyllis S 0.5 F Genta micin R >=16 F Nitro furan toin I 64 F Imipe nem S <=0.2 5 F Levof loxac in S 1 F Tobra mycin I 8 F Trime thopr im/Bravo lfame thoxa zole R >=320 F Piper acill in/Ta zobac sargent S <=4 F ORGAN ISM ID: 1.2 ANTIB IOTIC INTER PRETA TION NEELIMA STATU S Ampic illin R >=32 F Ampic illin /Sulb actam I 16 F Cefaz ananlisa R >=64 F Cefta zidim e R 4 F CEFTR IAXON E R >=64 F Cipro floxa phyllis S 0.5 F Genta micin R >=16 F Nitro furan toin I 64 F Imipe nem S 0.5 F Levof loxac in S 1 F Tobra mycin I 8 F Trime thopr im/Bravo lfame thoxa zole R >=320 F Piper acill in/Ta zobac sargent S <=4 F Not Available [address] [place], [address] 01/08/2024 07:49:32 01/24/20 24 01/24/2024 URINE CULTU RE urine culture Urine Cultu re Comme nt: sampl e colle cted at [facility] Comme nt: sampl e colle cted at [facility] e ACTIO N ID AND SUSCE PTIBI LITY TO FOLLO W [facility]RI Gram Negat tami [place] [facility]A [facility]ORRI Mixed Gram Negat tami Kelly COLON Y COUNT Not Available [address] [facility] [place], [address] 01/25/2024 10:39:48 01/24/20 24 01/25/2024 URINE CULTU RE urine culture colon ies/m L 10,00 0 - 50,00 0 COLON Y COUNT <10,0 00 Day 1 Resul t ISOLA ALEXANDRA BELOW O:GNR (ORGA NISM ID: 1.1) - GRAM NEGAT TAMI ELGIN Urine Cultu re (ORGA NISM ID: 1.1) - COLON Y COUNT (ORGA NISM ID: 1.1) - 10,00 0 - 50,00 0 O:GNF M (ORGA NISM ID: 1.2) - GRAM NEGAT TAMI KELLY ,MIXE D Urine Cultu re (ORGA NISM ID: 1.2) - COLON Y COUNT (ORGA NISM ID: 1.2) - <10,0 00 Not Available [address] [place], [address] 01/25/2024 10:39:48 01/24/20 24 01/24/2024 URINE CULTU RE urine culture Urine Cultu re Comme nt: sampl e colle cted at [facility] Comme nt: sampl e colle cted at [facility] e ACTIO N ID AND SUSCE PTIBI LITY TO FOLLO W ACTIO N ID AND SUSCE PTIBI LITY TO FOLLO W [facility]RI Gram Negat tami [place] [facility] Mixed Gram Negat tami Kelly [facility] Gram Negat tami [place] [facility]RI Mixed Gram Negat tami Kelly COLON Y COUNT Not Available [address] [place], [address] 01/26/2024 09:39:52 01/24/20 24 01/26/2024 URINE CULTU RE urine culture colon ies/m L 10,00 0 - 50,00 0 COLON Y COUNT <10,0 00 COLON Y COUNT 10,00 0 - 50,00 0 COLON Y COUNT <10,0 00 Day 1 Resul t ISOLA ALEXANDRA BELOW Day 2 Resul t ISOLA ALEXANDRA BELOW O:PRO SPE (ORGA NISM ID: 1.1) - PROTE US SPECI ES Urine Cultu re (ORGA NISM ID: 1.1) - COLON Y COUNT (ORGA NISM ID: 1.1) - 10,00 0 - 50,00 0 O:GNF M (ORGA NISM ID: 1.2) - GRAM NEGAT TAMI KELLY ,MIXE D Urine Cultu re (ORGA NISM ID: 1.2) - COLON Y COUNT (ORGA NISM ID: 1.2) - <10,0 00 Not Available [address] [place], [address] 01/26/2024 09:39:52 01/24/20 24 01/24/2024 URINE CULTU RE urine culture Urine Cultu re Comme nt: [facility] Comme nt: [facility] colle [facility] ACTIO N ID AND SUSCE PTIBI LITY TO FOLLO W ACTIO N ID AND SUSCE PTIBI LITY TO FOLLO W APPEA LORRI Gram Negat tami [place] APPEA LORRI Mixed Gram Negat tami Kelly [facility] Gram Negat tami [place] APPEA LORRI Mixed Gram Negat tami Kelly COLON Y COUNT Not Available [address] [place], [address] 01/26/2024 11:25:10 01/24/20 24 01/26/2024 URINE CULTU RE urine culture colon ies/m L 10,00 0 - 50,00 0 COLON Y COUNT <10,0 00 COLON Y COUNT 10,00 0 - 50,00 0 COLON Y COUNT <10,0 00 Day 1 Resul t ISOLA ALEXANDRA BELOW Day 2 Resul t ISOLA ALEXANDRA BELOW O:PRO SPE (ORGA NISM ID: 1.1) - PROTE US SPECI ES Urine Cultu re (ORGA NISM ID: 1.1) - COLON Y COUNT (ORGA NISM ID: 1.1) - 10,00 0 - 50,00 0 O:GNF M (ORGA NISM ID: 1.2) - GRAM NEGAT TAMI KELLY ,MIXE D Urine Cultu re (ORGA NISM ID: 1.2) - COLON Y COUNT (ORGA NISM ID: 1.2) - <10,0 00 Not Available [address] [place], [address] 01/26/2024 11:25:10 01/24/20 24 01/24/2024 URINE CULTU RE urine culture Urine Cultu re Comme nt: [facility] Comme nt: sampl e colle cted at [facility] ACTIO N ID AND SUSCE PTIBI LITY TO FOLLO W ACTIO N ID AND SUSCE PTIBI LITY TO FOLLO W APPEA LORRI Gram Negat tami [place] APPE[facility] Mixed Gram Negat tami Kelly [facility] Gram Negat tami [place] [facility] Mixed Gram Negat tami Kelly APPE[facility] Gram Negat tami [place] APPE[facility] Mixed Gram Negat tami Kelly COLON Y COUNT Not Available [address] [place], [address] 01/27/2024 08:11:06 01/24/20 24 01/27/2024 URINE CULTU RE urine culture colon ies/m L 10,00 0 - 50,00 0 COLON Y COUNT <10,0 00 COLON Y COUNT 10,00 0 - 50,00 0 COLON Y COUNT <10,0 00 COLON Y COUNT 10,00 0 - 50,00 0 COLON Y COUNT <10,0 00 Day 1 Resul t [facility] A[place]ANDRA BELOW Day 2 Resul t [facility] A[place]DRA BELOW Day 3 Resul t [facility] A[place]DRA BELOW O:PRO SUDEEP (ORGA NISM ID: 1.1) - Prote us mirab ilis Urine Cultu re (ORGA NISM ID: 1.1) - COLON Y COUNT (ORGA NISM ID: 1.1) - 10,00 0 - 50,00 0 O:GNF M (ORGA NISM ID: 1.2) - GRAM NEGAT TAMI KELLY ,MIXE D Urine Cultu re (ORGA NISM ID: 1.2) - COLON Y COUNT (ORGA NISM ID: 1.2) - <10,0 00 ORGAN ISM ID: 1.1 ANTIB IOTIC INTER PRETA TION NEELIMA STATU S Ampic illin S <=2 F Ampic illin /Sulb actam S <=2 F Cefaz annalisa S <=4 F Cefta zidim e S <=1 F CEFTR IAXON E S <=1 F Cipro floxa phyllis S <=0.2 5 F Genta micin S <=1 F Nitro furan toin R 128 F Tobra mycin S <=1 F Trime thopr im/Bravo lfame thoxa zole S <=20 F Piper acill in/Ta zobac sargent S <=4 F Not Available [address] [place], [address] 01/27/2024 08:11:06 07/14/20 23 07/14/2023 ED visit note ED Visit Note JUICE Frost NAME: Arvind Ambriz UNIT #: [id number] ADMITT ING PROVID ER: Waqas Nugent ACCOUN T #: [id number] PRIMAR Y CARE PROVID ER: RUBIN LAU MD Y DATE OF ADMIT: : 1965 Discha rge Plan Discha rge Detail s Chief Compla int: Urinar y Primar y Care Provid er: Trinidad Lau ED Provid er: Deshawn Boone Home Meds and New Rx's Prescr iption s: No Action multiv itamin Tablet 1 tab PO DAILY clotri mazole 1 % cream 1 applic topica l TID PRN PRN (Reaso n: rash) Qty: 60 0RF polyet hylene glycol 3350 [Glyco Lax] 527 GM powder 17 g PO DAILY cran-v itC-ma nnose- FOS-br omeln 1,937- 188 mg/15 mL liquid 188 mg PO BID Qty: 225 12RF Surgil ube Gel 1 applic TP QID Qty: 56.7 12RF potass ium citrat e 10 mEq (1,080 mg) tablet extend ed releas e See Rx Instru ctions .ROUTE .COMPL EX Qty: 60 6RF Dose Instru ction: TAKE ONE TABLET BY MOUTH TWICE A DAY Rx Instru ctions : TAKE ONE TABLET BY MOUTH TWICE A DAY bisaco dyl [Dulco lax (bisac odyl)] 10 mg Suppos itory 10 mg AL DAILY loraze rigoberto 1 mg Tablet 1 mg PO TID PRN cholec alcife rol (vitam in D3) [Vitam in D3] 1,000 unit Capsul e 1 unit PO DAILY Medica l Decisi on Making This dictat ion utiliz es voice- to-leslye t dictat ion softwa re and may contai n unedit ed gramma tical errors . 57 y/o M presen ts to ED today with a chief compla int of chroni c urinar y cathet er obstru cted- change d by home health at 1000 today. Onset and charac terist ics includ e no output , non-ve rbal other histor y not obtain ed, family states acting his baseli ne. 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 Family and social histor y: stella bautista and rian fernández nurses . Pertin ent exam findin gs / vital signs includ e mild disten tion suprap ubical ly that resolv ed with placem ent of a patent Lyles, benign cardio pulmon reed status , afebri le, after 10 to 15 minute s Lyles starte d having blood- tinged draina ge. Differ ential / pathol ogies of concer n includ e UTI, hematu jacob, pyelon ephrit is, renal stone, bladde r cancer , trauma from prior failed Lyles. Diagno stic studie s of: -UA, CBC, BMP, Lactat e, Procal citoni n. -UA shows blood, >50 WBCs, >50 RBCs, large leuk estera se, negati ve nitrit es -basic labs discus sed with family , holdin g CT scan based on bloodw ork, treati ng empiri jeremias with UTI otherw ise -initi al lactat e 3.4 -WBCs elevat ed to 16.5 > adding blood cultur es, IVF, 2gm IV ceftri axone after cultur es, and CT ABD/Pe lvis w Contra st Interv ention s of: -Lyles replac ement - draini ng cloudy urine at first, then as 100mL had entere d bag starte d seeing blood tinged color. ED Course /Asses sment/ Plan: Nonver bal develo pmenta lly delaye d indivi dual presen ts with a blocke d Lyles cathet er, this was replac ed and was patent ly draini ng cloudy urine follow ed by hematu jacob, basic labs were perfor med as the patien t was mildly tachyc ardic which shows elevat ed lactat e to 3.4 as well as elevat ed white blood cells, I am adding on 2 sets of cultur es and IV fluids with a 2-hour rechec k of lactat e and IV antibi otics to treat a possib le UTI which is common with the juice frost's chroni c cathet er use. CT scan was also added on to evalua te for possib le pyelon ephrit is or other pathol ogy of hematu jacob like renal stones . Juice frost signed out to Dr. Boone at shift change pendin g repeat lactat e and imagin g result s with dispos ition. Dispos ition of Lyles Cathet er Proble m, Urinar y Tract Infect ion, Sepsis Juice frost verbal ized unders tanricardo g of the plan and return to ED criter ia and engage d in shared decisi on making . Medica l Record s Medica l record s review ed: Yes I review ed the juice frost's medica l record s. Lab Data Lab result s review ed: Yes I review ed the juice frost's lab result s. Labs: 22:42 Blood Blood Cultur e - Pendin g 22:42 Blood Blood Cultur e - Pendin g 21:35 Urine - Reflex from Ua Urine Cultur e - Pendin g [facility] Tests Range/ Units 21:35 22:30 WBC (4.4-1 0.8) 10 3/uL 16.53 H RBC (4.36- 5.78) 10 6/uL 5.49 Hgb (13.5- 17.5) g/dL 15.0 Hct (40.0- 50.0) % 46.1 MCV (80-95 ) fL 84 MCH (27.0- 33.0) pg 27.3 MCHC (32.0- 36.0) % 32.5 RDW (11.8- 14.1) % 13.0 Plt Count (130-4 00) 10 3/uL 217 MPV (8.0-1 1.0) fL 10.5 Immatu re Gran % 0.5 Neutro phils % 89.4 Lympho cytes % 4.7 Monocy alexandra % 4.8 Eosino phils % 0.2 Basoph ils % 0.4 Nuclea leidy RBC % (0.0-0 .3) % 0.0 Absolu te Neutro phils (1.2-6 .7) 10 3/uL 14.78 H Absolu te Lympho cytes (1.2-3 .4) 10 3/uL 0.78 L Absolu te Monocy alexandra (0.1-0 .8) 10 3/uL 0.79 Absolu te Eosino phils (0.0-0 .7) 10 3/uL 0.03 Absolu te Basoph ils (0.0-0 .2) 10 3/uL 0.07 VBG Lactat e (0.6-1 .4) mmol/L 3.7 H* Sodium (136-1 45) mmol/L 135 L Potass ium (3.5-5 .1) mmol/L 4.2 Chlori de (98-10 7) mmol/L 100 Carbon Dioxid e (21.0- 32.0) mmol/L 28.6 Anion Gap (3-11) mmol/L 6.4 BUN (7-18) mg/dL 17 Creati nine (0.70- 1.30) mg/dL 1.5 H Est GFR (CKD-E PI 2020) (mL/mi n/1.73 m2) 53.63 Glucos e (74-10 6) mg/dL 120 H Calciu m (8.5-1 0.1) mg/dL 8.9 Urine Color (Yello w) Yellow Urine Clarit y (Clear ) Cloudy Urine pH (5-8) 7.0 Ur Specif ic Gravit y (1.005 -1.025 ) 1.020 Urine Protei n (Negat tami) mg/dL 100 H Urine Ketone s (Negat tami) mg/dL Negati ve Urine Blood (Negat tami) Large H Urine Nitrit e (Negat tami) Negati ve Urine Biliru bin (Negat tami) Negati ve Urine Urobil inogen (Up to 0.2) mg/dL 0.2 Ur Leukoc yte Estera se (Negat tami) Large H Urine RBC (0-2) HPF >50 H Urine WBC (0-5) HPF >50 H Ur Epithe lial Cells (Negat tami) HPF Few Urine Keyonna ls (Negat tami) HPF Negati ve Urine Bacter ia (Negat tami) HPF Few Urine Casts (Negat tami) LPF Negati ve Urine Mucus (Negat tami) Heavy Ur Cultur e Indica leidy? Yes Urine Glucos e (Negat tami) mg/dL Negati ve HPI Genera l Date/T gerber Provid er Initia leidy Docume ntatio n: 20:25 . HPI Narrat tami: 57 year-o ld male presen ts to ED today by [facility] yoselyn, with sister and careta ker- non-ve rbal with a chief compla int of clogge d lyles cathet er change d by home health nurse at 10am today. Qualit y descri bed as no urine output since then, no radiat ion to fever, not able to give any other histor y. Rosa Elena ty is descri bed as unable to quanti fy. Pallia ting factor s includ e none attemp leidy- appear s the cathet er was not confir med as patent prior to visiti nurse horacio dunbar Provok ing factor s includ e nothilesia fernández specif ic. Events leadin g up to the incide nt/Ass ociate d Sympto ms: patien t is chroni jeremias cath'd . Patien t not antico agulat ed. Relate d Data Home Medica tions Medica tion Instru ctions Record ed Confir med polyet hylene glycol 3350 17 17 g PO DAILY gram/d ose oral powder (Glyco Lax) bisaco dyl 10 mg rectal suppos itory 10 mg AL DAILY (Dulco lax (bisac odyl)) cholec alcife rol (vitam in D3) 25 1 unit PO DAILY mcg (1,000 unit) capsul e (Vitam in D3) loraze rigoberto 1 mg tablet 1 mg PO TID PRN everett rry-vi tC-man nose-F OS-bro melain 188 mg PO BID infect ion preven tion 1,937 mg-188 mg/15 mL oral liquid #225 mL surgic al lubric ant jelly 1 applic topica l QID #56.7 grams (Surgi lube topica l gel) clotri mazole 1 % topica l cream 1 applic topica l TID PRN PRN rash #60 grams multiv itamin 1 tab PO DAILY potass ium citrat e 10 mEq (1,080 See Rx Instru ctions .Route mg) tablet ,exten ded releas e .COMPL EX #60 tabs Previo us Rx's Medica tion Instru ctions Record ed cranbe rry-vi tC-man nose-F OS-bro melain 188 mg PO BID infect ion preven tion 1,937 mg-188 mg/15 mL oral liquid #225 mL surgic al lubric ant jelly 1 applic topica l QID #56.7 grams (Surgi lube topica l gel) clotri mazole 1 % topica l cream 1 applic topica l TID PRN PRN rash #60 grams potass ium citrat e 10 mEq (1,080 See Rx Instru ctions .Route mg) tablet ,exten ded releas e .COMPL EX #60 tabs Allerg ies Allerg y/AdvR eac Type Severi ty Reacti on Status Date / Time carbam azepin e [From Tegret ol] Allerg y Unknow n Unknow n Verifi ed 20:18 gabape ntin [From Neuron tin] Allerg y Unknow n Unknow n Verifi ed 20:18 risper idone [From Risper pavel] Allerg y Unknow n Unknow n Verifi ed 10:17 Sulfa (Sulfo namide AdvRea c Mild Per pt. Verifi ed 10:17 Antibi otics) mother causes stomac h ache haldol AdvRea c Unknow n Uncode d 20:19 Genera l Stated Compla int: Urinar y SCHUYLER: 3 Review of System s All system s review ed are unrema rkable except as noted in HPI and below PFSH All Active Proble ms (Updat ed @ 00:04 by SARAH FRANCIS ) Sepsis (Acute ) Compli cated UTI (urina ry tract infect ion) (Acute ) Commun ity acquir ed pneumo long (Acute ) DVT prophy laxis (Acute ) Urinar y cathet er insert ion/ad justme nt/rem oval (Acute ) Diarrh ea (Acute ) Neurog enic bladde r (Acute ) Discha rge planni ng issues (Acute ) Bacter emia (Acute ) Medica l Histor y (Updat ed @ 00:04 by SARAH FRANCIS ) 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 Surgic al Histor y (Revie tue @ 08:20 by Nneka Grajeda RN) S/P cranio rigo S/P SNUFF BLENDER shunt Social Histor y (Revie tue @ 11:16 by Khai Martino NP) 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 SKIN: Warm, pink, dry, intact , withou t rashes /lesio ns/ulc eratio ns. HEAD: Normoc ephali c, atraum atic, normal hair distri bution for gender /age. EYES: Pupils PERRLA , EOMs intact withou t nystag mus, normal conjun ctiva, no exudat es on lids/l ashes. ENT: Nares patent , no circum oral cyanos is, no facial swelli ng NECK: Supple , trache a midlin e, painle ss cervic al ROM. LUNGS/ CHEST: Lungs CTA bilate rally, non-la bored respir ations , normal A/P diamet er, symmet rical expans ion, no chest wall deform ity HEART (CV/PV ): Regula r rate and rhythm withou t murmur , no periph eral edema, no JVD. ABDOME N: Soft, non-di stende d, no guardi ng, mild disten tion suprap ubic. MSK: Normal ROM, no swelli ng/def ormity to bilate ral UEs or LEs, moving all extrem ities withou t weakne ss, no cyanos is, spine midlin e withou t tender ness, normal curvat ure. NEURO: Mental Status AAOx4 - follow s sponta neous activi ty in room No facial droop, no forehe ad involv ement. Motor: No focal weakne ss - streng th 5/5 in bilate ral UEs and LEs, proxim al and distal , symmet jasmyn. Sensor y: sensat ion intact to light touch global ly. Gait normal : patien t ambula leidy withou t ataxia into ED room. PSYCH: euthym ic, miladys ative, pleasa nt, non-ve rbal Course 21:13 Lidoca ine 2% Jelly [Glydo 2%] 11 ml .ROUTE .[facility] ED ONE 21:16 Water for inject ion, steril e 10 ml .ROUTE .[facility] ED ONE 21:35 Urine Cultur e Stat Micros copic Findin gs [URIN] Stat Urinal ysis [URIN] Stat 22:08 Lyles Insert /DC [Lyles Insert /Asses s/DC] .INSER T 22:30 Basic Metabo lic Panel Stat Lactat e Stat Procal citoni n Stat Comple te Blood Count w/Diff [HEMO] Stat 22:42 CT abdome n pelvis w [CT] Stat Normal Saline [Salin e 1000ml Bag] 1,000 ml IV BOLUS cefTRI AXone [Rocep hin] 2 gm in 50 ml IVPB NOW Blood Cultur e ( Age => 10 Yrs) Stat cc: FELISHA SU, RUBIN Y ------ ------ ------ ------ ------ ------ ------ ------ ------ ------ ------ --- Dictat ed by: Waqas Nugent Dictat ed: Time: 2025 Date: 2300 Date: Date: Transc ribed Date: Transc ribed Time: 2025 By: HEATHER GIRALDO This is privil eged, confid ential inform ation, intend ed only for the provid er named. Any use or distri bution by any person other than this provid er is strict ly prohib ited. If you receiv e this report in error, please notify us immedi leahly at and return the origin al report to us at the addres s above. Thank you. [email or web address] [facility] [address], [place], [address] 07/15/2023 07:47:36 07/15/20 23 07/15/2023 jorge frost Name: Arvind Ambriz Unit #: [id number] Loc: ER Orderi ng Provid er: Accoun t #: [id number] Status : REG ER Primar y Care Provid er: Trinidad Lau M.D. Date of Exam: Sex: M : 1965 Age: 57 Exam(s ) PROCED URE INFORM ATION: Exam: CT Abdome n And Pelvis With Contra st Exam date and time: 023 12:27 AM Age: 57 years old Clinic al indica tion: Other: Elevat ed lactat e, leukoc ytosis , abd ttp; Additi onal info: Non-ve rbal, elevat ed lactat e, leukoc ytosis , abd ttp TECHNI QUE: Imagin g protoc ol: Comput ed tomogr aphy of the abdome n and pelvis with contra st. Contra st materi al: OMNI 350; Contra st volume : 100 ml; Contra st route: INTRAV ENOUS (IV); COMPAR SYDNEY: CT ABDOME N PELVIS W 019 3:36 PM FINDIN GS: Tubes, cathet ers and device s: There is a probab le ventri culope ritone al shunt cathet er projec leidy within the right hemipe lvis and terire sing the subcut aneous soft tissue s of the anteri or abdome n and lower chest. Lungs: Modera te atelec tatic change s presen t at the lung bases bilate rally. The lung bases are otherw ise unrema rkable . Heart: There is a small perica rdial effusi on presen t. Navarro ry arteri es: There is mild athero sclero tic calcif icatio n of the navarro ry arteri es. Liver: There are no focal liver lesion s presen t. There is no eviden ce of intrah epatic or extrah epatic biliar y ductal dilati on. Gallbl adder and bile ducts: The gallbl adder is normal . There is no cholel itiasi s, wall thicke jarett or perich olecys tic fluid to sugges t cholec ystiti s. Pancre as: The pancre as is normal . Spleen : The spleen is normal . Adrena l glands : The adrena l glands are normal . Kidney s and ureter s: Bilate ral simple appear ing renal cysts presen t. Stomac h and bowel: There is marked increa sed coloni c fecal conten t. The colon is modera tely disten ded. These findin gs sugges t a modera te to severe degree of consti pation . Clinic al correl ation recomm ended. There are fluid- filled loops of small bowel with air-fl uid levels . No signif icant bowel wall thicke jarett or inflam matory change s. No eviden ce of obstru ction. Consid er early enteri tis. Consid er obstip ation. Append ix: A normal append ix is identi fied. There is no eviden ce of disten tion or periap pendic eal inflam mation to sugges t append icitis . Intrap eriton eal space: There is no free intrap eriton eal air. There is no eviden ce of free intrap eriton eal or pelvic fluid. Vascul ature: The aorta is unrema rkable withou t eviden ce of signif icant athero sclero sis or aneury smal diseas e. The periph eral arteri al vascul ar system visual ized is unrema rkable . The portal venous system visual ized is unrema rkable . The periph eral venous vascul ar system visual ized is unrema rkable . Lymph nodes: There is no eviden ce of lympha denopa thy. Urinar y bladde r: The bladde r is decomp ressed by a Lyles cathet er but is otherw ise normal . There is a small amount of urinar y bladde r intral uminal air consis tent with instru mentat ion. Reprod uctive : Unrema rkable as visual ized. Bones/ joints : The skelet al struct ures and soft tissue s show no eviden ce of fractu re or other acute proces ses. Soft tissue s: There is a nonobs tructi ng right inguin al hernia contai jarett fat and possib ly a small amount of mesent eber. IMPRES IDA: 1. There is marked increa sed coloni c fecal conten t. The colon is modera tely disten ded. These findin gs sugges t a modera te to severe degree of consti pation . Clinic al correl ation recomm ended. 2. There are fluid- filled loops of small bowel with air-fl uid levels . No signif icant bowel wall thicke jarett or inflam matory change s. No eviden ce of obstru ction. Consid er early enteri tis. Consid er obstip ation. 3. There is a probab le ventri culope ritone al shunt cathet er projec leidy within the right hemipe lvis and terrie sing the subcut aneous soft tissue s of the anteri or abdome n and lower chest. Dictat ed and Authen ticate d by: Kevin Virk MD. Orderi ng:PCornelia Wilkerson MD Access ion#=[id number] Ordere d By: CC: ------ ------ ------ ------ ------ ------ ------ ------ ------ ------ ------ ------ ---- Dictat ed By: Report s vrad 26 Transc ribed By: Cristiane Merge 26 This is privil eged, confid ential inform ation intend ed only for the provid er named. Any use or distri bution by any person other than this provid er is strict ly prohib ited. If you receiv e this report in error, please notify us immedi ately at and return the origin al report to us at the addres s above. Thank- you. [email or web address] [facility] [address], [place], [address] 07/15/2023 07:47:37 07/15/2007/15/2023 ED progr ess note ED Progre ss Note PATIEN T NAME: Arvind Ambriz UNIT #: [id number] ADMITT ING PROVID ER: Deshawn Boone M.D. ACCOUN T #: [id number] PRIMAR Y CARE PROVID ER: FELISHA SU, RUBIN Y DATE OF ADMIT: : 1965 Date of servic e: Time of Servic e: 02:21 Medica l Decisi on Making I, Deshawn Boone, took signou t on this patien t. In summar y 57-yea r-old gentle man with cognit tami delay and chroni c indwel ling Lyles cathet er presen ts with obstru cted Lyles cathet er. Had it change d by home health today at 10 AM. No output and marcos t here by stella mullen who lives in with him. Lyles cathet er was exchan ged here and signif icant draina ge of urine. Signed out to me pendin g labs and CT abdome n pelvis . Labs unrema rkable other than UTI. Had a lactic acidos is that resolv ed after IV fluids . CT abdome n pelvis with no acute findin gs given some IV antibi otics here. Back to [facility]. Vital signs unrema rkable . Will send home with treatm ent for UTI and given strict return precau tions. Stella mullen agreea ble with this plan. Medica l Record s Medica l record s review ed: Yes I review ed the patien t's medica l record s. Imagin g Data Radiol ogic Study: Attest ation: I person ally review ed and interp reted this imagin g study as follow s: Imagin g: CT Scan (abdom en and pelvis ) Radiol ogist' s impres ida: IMPRES IDA: 1. There is marked increa sed coloni c fecal conten t. The colon is modera tely disten ded. These findin gs sugges t a modera te to severe degree of consti pation . Clinic al correl ation recomm ended. 2. There are fluid- filled loops of small bowel with air-fl uid levels . No signif icant bowel wall thicke jarett or inflam matory change s. No eviden ce of obstru ction. Consid er early enteri tis. Consid er obstip ation. 3. There is a probab le ventri culope ritone al shunt cathet er projec leidy within the right hemipe lvis and terrie sing the subcut aneous soft tissue s of the anteri or abdome n and lower chest. Discha rge Plan Dispos ition Patien t Dispos ition: Home Condit ion: Good Discha rge Detail s Clinic al Impres ida: Lyles cathet er proble m, Acute UTI Primar y Care Provid er: Trinidad Lau ED Provid er: Deshawn Boone Home Meds and New Rx's Prescr iption s: New cephal exin 250 mg/5 mL suspen ida for recons tituti on 500 mg PO QID 5 Days Qty: 200 0RF No Action multiv itamin Tablet 1 tab PO DAILY clotri mazole 1 % cream 1 applic topica l TID PRN PRN (Reaso n: rash) Qty: 60 0RF polyet hylene glycol 3350 [Glyco Lax] 527 GM powder 17 g PO DAILY cran-v itC-ma nnose- FOS-br omeln 1,937- 188 mg/15 mL liquid 188 mg PO BID Qty: 225 12RF Surgil ube Gel 1 applic TP QID Qty: 56.7 12RF potass ium citrat e 10 mEq (1,080 mg) tablet extend ed releas e See Rx Instru ctions .ROUTE .COMPL EX Qty: 60 6RF Dose Instru ction: TAKE ONE TABLET BY MOUTH TWICE A DAY Rx Instru ctions : TAKE ONE TABLET BY MOUTH TWICE A DAY bisaco dyl [Dulco lax (bisac odyl)] 10 mg Suppos itory 10 mg AL DAILY loraze rigoberto 1 mg Tablet 1 mg PO TID PRN cholec alcife rol (vitam in D3) [Vitam in D3] 1,000 unit Capsul e 1 unit PO DAILY Discha rge Instru ctions Instru ctions : Urinar y Tract Infect ion in Men (ED), Lyles Cathet er Place ent and Care (ED) Additi onal Instru ctions : Arvind gonzalez was seen in the [facility] depart ment for a Lyles cathet er proble m. We replac ed the Lyles cathet er here and he sponta neousl y draine d his bladde r. We perfor med a CAT scan that was unrema rkable other than some consti pation . You can give him some over-t he-cou nter MiraLA X for this. His urine testin g is consis tent with a UTI. We gave him his first dose of antibi otics here and sent some antibi otics to his pharma cy. Please return to [facility] depart ment if he develo ps any other sympto ms or if you have any other concer ns. Follow -up with your primar y care doctor . Referr als: Trinidad Lau MD [[facility] Provid er] - 1 week cc: FELISHA SU, RUBIN Gonzalez ------ ------ ------ ------ ------ ------ ------ ------ ------ ------ ------ --- Dictat ed by: Deshawn Boone M.D. Dictat ed: Time: 022 Date: 228 Date: Date: Transc ribed Date: Transc ribed Time: 220 By: WILLIAM Metcalf This is privil eged, confid ential inform ation, intend ed only for the provid er named. Any use or distri bution by any person other than this provid er is strict ly prohib ited. If you receiv e this report in error, please notify us immedi ately at and return the origin al report to us at the addres s above. Thank you. [facility] [address], [place], [address] 07/15/2023 07:47:37 07/15/20 23 07/15/2023 CT, abdom en + pelvi s, w/ contr ast Patien t Name: Arvind Ambriz Unit #: [id number] Loc: ER Orderi ng Provid er: Waqas Nugent Accoun t #: [id number] Status : DEP ER Primar y Care Provid er: Trinidad Lau M.D. Date of Exam: Sex: M : 1965 Age: 57 Exam(s ) a CT:CT abdome n pelvis w Exam(s ) CT ABDOME N PELVIS W EXAM: CT ABDOME N PELVIS W CLINIC AL HISTOR Y: non-ve rbal, elevat ed lactat e, leukoc ytosis ,ABD TTP. TECHNI QUE: Imagin g Protoc ol: Axial comput ed tomogr aphy images with navarro l and sagitt al reform atted images were create d and review ed CONTRA ST MATERI AL: Intrav enous: Omnipa que-35 0 100cc Oral: None COMPAR SYDNEY: CT CT ABDOME N PELVIS W from 2018 FINDIN GS: VISUAL IZED LUNG BASES: Increa sed markin gs in both lung bases. No pleura l effusi ons.. ABDOME N: There is a ventri culope ritone al shunt in the abdome n. Its distal aspect is in the right iliac fossa. No eviden ce of absces s. No fluid seen around the shunt. There is no ascite s. GI: There is interp ositio n of colon betwee n the liver and anteri or abdomi nal wall. The sigmoi d is disten ded with fecal materi al as is the rectum , is disten ded to 8 millim eter diamet er. The amount of fecal materi al in the remain justice of the colon is modera te. Append ix appear s unrema rkable . There is no eviden ce of small- bowel obstru ction, free air, nor absces s. LIVER: There are no focal hepati c lesion s eviden t. No dilate d intrah epatic ducts. GALLBL ADDER/ BILIAR Y: No obviou s gallbl adder pathol ogy. CBD is not dilate d. PANCRE : No eviden ce of pancre atic mass nor dilata tion of the pancre atic duct. SPLEEN : Spleen is not enlarg ed. No obviou s intras plenic lesion s. Spleni c and portal veins are patent . ADRENA LS: There are no signif icant adrena l masses . KIDNEY S:Ther e are 2 tiny nonobs tructi ve calcul i in the lower half of the right kidney . No calcul i seen in the left kidney . Bilate ral extrar enal pelves are again noted, again noted be more promin ent on the left side. There is no caliec tasis. A few small benign 1 cm cysts are noted in the right kidney . These do not requir e furthe r workup . A tiny 5 millim eter cyst in the left kidney also noted which does not requir e furthe r workup . No solid renal masses . No hydron ephros is. No hydrou reter. There is a Lyles cathet er in the urinar y bladde r. The urinar y bladde r wall is again noted be signif icantl y thicke rosmery most probab ly relate d to chroni c cystit is. Prosta te gland is not enlarg ed. Semina l vesicl es unrema rkable .. ABDOMI NAL AORTA: Abdomi nal aorta is not enlarg ed. LYMPH NODES: There is no retrop eriton eal nor paraao rtic adenop athy. ABDOMI NAL WALL: No eviden ce of signif icant anteri or abdomi nal wall nor inguin al hernia . GI: As above PELVIS : GI: No eviden ce of append icitis .No eviden ce of sigmoi d divert iculit is. LYMPH NODES: There is no intrap elvic nor inguin al adenop athy. REPROD UCTIVE : Prosta te not enlarg ed. Semina l vesicl es unrema rkable . URINAR Y BLADDE R: Lyles cathet er in place. Signif icant abnorm al circum ferent ial thicke jarett of the urinar y bladde r. OSSEOU S: No fractu res and no signif icant osseou s lesion s. IMPRES IDA: 1. Compar ed to prior CT scan 2018 the amount of fecal conten t in the rectos igmoid has furthe r increa sed and this part of the colon is now signif icantl y disten ded to 9 cm size. The amount of fecal materi al in the remain justice of the colon is more modera te. There is no true bowel obstru ction. 2. There is ventri culope ritone al shunt in the abdome n noted. Distal tip is in the right iliac fossa region . No associ ated mesent lorena streak ing nor absces s. 3. The urinar y bladde r wall is unifor mly very thicke rosmery consis tent with chroni c cystit is. There is a Lyles cathet er in the urinar y bladde r noted which was not eviden t in 2019 4. Increa sed markin gs in both lower lobes which may be mild infilt rate. There are no associ ated pleura l effusi ons. RADIAT ION DOSE DELIVE RED: Total DLP DATA REPOSI TORY: All CT scans at this facili ty are submit leidy to the Nation al Radiol ogy Data Regist ry (NRDR) Dose Index Regist ry (DIR) with the [place] thang augustine of Radiol ogy (ACR). RADIAT ION OPTIMI ZATION : All CT scans at this facili ty use at least one of these dose optimi zation techni ques: automa leidy exposu re contro l; mA and/or kV adjust ment per patien t size (inclu nader target ed exams where dose is matche d to clinic al indica tion); or iterat tami recons tructi on. 1208-0 005: Total DLP = 0.00 mGy-cm Ordere d By: Waqas Nugent CC: ------ ------ ------ ------ ------ ------ ------ ------ ------ ------ ------ ------ ---- Dictat ed By: Michael Wahl M.D. 1122 Transc ribed By: Maryuri SU,Kierra pj 1122 This is privil eged, confid ential inform ation intend ed only for the provid er named. Any use or distri bution by any person other than this provid er is strict ly prohib ited. If you receiv e this report in error, please notify us immedi ately at and return the origin al report to us at the addres s above. Thank- you. [email or web address] [facility] [address], [address] 07/15/2023 12:07:27 08/12/19 24 08/12/2023 ultra sound imagi ng repor t Patien t Name: Arvind Ambriz Unit #: [id number] Loc: DI Orderi ng Provid er: Joey House M.D. Accoun t #: [id number] Status : REG CLI Primar y Care Provid er: Trinidad Lau M.D. Date of Exam: Sex: M Admiss ion Date: : 1965 Age: 57 Exam(s ) US RENAL EXAM: US RENAL CLINIC AL HISTOR Y: ? hydron ephros is,aureliano zarina c vero emanuel,N31. 9. TECHNI QUE: Amor scale, color and spectr al Dopple r were used. COMPAR SYDNEY: US US RENAL from [address] ABDOME N PELVIS W from 2022 FINDIN GS: Renal size in cm: Right: 10.9 left: 0 Echoge nicity : Normal Hydron ephros is: No Cyst or mass: Small bilate ral cysts again noted. Nephro lithia sis: 6 millim eter nonobs tructi ng stone mid right kidney . Bladde r:Fole y cathet er presen t within decomp ressed bladde r IMPRES IDA: No eviden ce of hydron ephros is. 6 millim eters calcul us mid right kidney . DATA REPOSI TORY: Ordere d By: Joey House M.D. CC: ------ ------ ------ ------ ------ ------ ------ ------ ------ ------ ------ ------ - Dictat ed By: Jovita Romo 142 142 Transc ribed By: Nathan Astudillo 1423 This is privil eged, confid ential inform ation intend ed only for the provid er named. Any use or distri bution by any person other than this provid er is strict ly prohib ited. If you receiv e this report in error, please notify us immedi ately at and return the origin al report to us at the addres s above. Thank- you. [email or web address] [facility] [address] [place], [address] 08/14/2023 16:21:59 08/19/19 24 08/18/2023 ED visit note ED Visit Note PATIJONI T NAME: Arvind Ambriz UNIT #: [id number] ADMITT ING PROVID ER: Dejan Campa DO ACCOUN T #: [id number] PRIMAR Y CARE PROVID ER: RUBIN LAU MD DATE OF ADMIT: : 1965 HPI Genera l Stated Compla int: Urinar y SCHUYLER: 3 Date/T gerber Provid er Initia leidy sanchezo n: 22:50. HPI Narrat tami: This is a 57-yea r-old male with past medica l histor y of cognit tami delay, SNUFF BLENDER shunt, who is relati vely nonver bal, with a chroni c indwel ling Lyles second reed to neurog enic bladde r, presen ts today for an obstru cted Lyles. Histor y is notabl y limite d, patien t is nonver bal. EMS marcos t the patien t in and gives a confli cting report compar ed to family . Per family he has not had any output since 11 AM. Tyleno l was given with only mild improv ement. Patien t had some suprap ubic tender ness, and the patien t was marcos t in for furthe r assess ment. Temper ature at home was 98-99 per family . Family felt that the patien t was in pain later. No other compla ints or histor y at this time. Lyles cathet er was recent ly change d 6 days ago. Patien t had been on antibi otics previo usly about a month ago for urinar y tract infect ion which demons trated enteri c bacter ia that was cefazo amol resist ant but otherw ise pansen sitive . Relate d Data Home Medica tions Medica tion Instru ctions Record ed Confir med polyet hylene glycol 3350 17 17 g PO DAILY gram/d ose oral powder (Glyco Lax) bisaco dyl 10 mg rectal suppos itory 10 mg AL DAILY (Dulco lax (bisac odyl)) cholec alcife rol (vitam in D3) 25 1 unit PO DAILY mcg (1,000 unit) capsul e (Vitam in D3) loraze rigoberto 1 mg tablet 1 mg PO TID PRN cranbe rry-vi tC-man nose-F OS-bro melain 188 mg PO BID infect ion preven tion 1,937 mg-188 mg/15 mL oral liquid #225 mL surgic al lubric ant jelly 1 applic topica l QID #56.7 grams (Surgi lube topica l gel) clotri mazole 1 % topica l cream 1 applic topica l TID PRN PRN rash #60 grams multiv itamin 1 tab PO DAILY potass ium citrat e 10 mEq (1,080 See Rx Instru ctions .Route mg) tablet ,exten ded releas e .COMPL EX #60 tabs cefpod oxime 100 mg tablet 100 mg PO BID 10 days #20 tabs Previo us Rx's Medica tion Instru ctions Record ed cranbe rry-vi tC-man nose-F OS-bro melain 188 mg PO BID infect ion preven tion 1,937 mg-188 mg/15 mL oral liquid #225 mL surgic al lubric ant jelly 1 applic topica l QID #56.7 grams (Surgi lube topica l gel) clotri mazole 1 % topica l cream 1 applic topica l TID PRN PRN rash #60 grams potass ium citrat e 10 mEq (1,080 See Rx Instru ctions .Route mg) tablet ,exten ded releas e .COMPL EX #60 tabs cefpod oxime 100 mg tablet 100 mg PO BID 10 days #20 tabs Allerg ies Allerg y/AdvR eac Type Severi ty Reacti on Status Date / Time carbam azepin e [From Tegret ol] Allerg y Unknow n Unknow n Verifi ed 20:18 gabape ntin [From Neuron tin] Allerg y Unknow n Unknow n Verifi ed 20:18 risper idone [From Risper pavel] Allerg y Unknow n Unknow n Verifi ed 10:17 Sulfa (Sulfo namide AdvRea c Mild Per pt. Verifi ed 10:17 Antibi otics) mother causes stomac h ache haldol AdvRea c Unknow n Uncode d 20:19 Review of System s All system s review ed are unrema rkable except as noted in HPI and below PFSH All Active Proble ms (Revtue @ 05:22 by Rock Campa DO) Lyles cathet er proble m (Acute ) Sepsis (Acute ) Compli cated UTI (urina ry tract infect ion) (Acute ) Commun ity acquir ed pneumo long (Acute ) DVT prophy laxis (Acute ) Urinar y cathet er insert ion/ad justme nt/rem oval (Acute ) Diarrh ea (Acute ) Neurog enic bladde r (Acute ) Discha rge planni ng issues (Acute ) Bacter emia (Acute ) Medica l Histor y (Revtue @ 05:22 by Rock Campa DO) 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 Surgic al Histor y (Revtue @ 05:22 by Rock Campa DO) S/P cranio rigo S/P SNUFF BLENDER shunt Social Histor y (Revtue @ 05:22 by Rock Campa DO) 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 Moist MM. Neck: Symmet jasmyn, trache a midlin e, No thyrom egaly. 4.CVS: +S1/S2 , No murmur s or gallop s. Periph eral pulses 2+ and equal in all extrem ities. Brisk capill reed refill in all extrem ities. 5.RESP : Unlabo red respir atory effort . Clear to auscul tation bilate rally. No wheeze s rales or rhonch i 6.GI: Soft, Nonten justice/No ndiste nded, No hepato spleno megaly . There is some firmne ss in the suprap ubic region which appear s palpab ly simila r to an enlarg ed bladde r. Juice frost has defeca leidy on himsel f, genita chelsey otherw ise looks stable with no blood at the urethr al meatus . 7.MSK: Normoc ephali c/Atra umatic , chroni c partia l contra ctures of the upper extrem ities. 8.Skin : Warm, Dry. No rashes or lesion s. 9.Neur o: Patijoni frost appear s [facility] per family Course Vital Signs Vital signs: Vital Signs Temper ature 36.3 C L 22:46 Pulse 109 H 22:46 Respir atory Rate 20 22:46 Pulse Oximet ry 96 22:46 Temper ature 37.1 C 23:31 Temper ature Source Oral 23:31 Pulse 104 H 23:31 Respir atory Rate 18 23:31 Respir atory Effort Normal 22:53 Blood Pressu re 149/84 H 23:31 Blood Pressu re Positi on Sittin g 22:46 Pulse Oximet ry 93 23:31 Oxygen Delive ry Method Room Air 23:31 Oxygen Flow Rate 0 23:31 Commen t pt appear s to be in pain, diapho retic and family states he was having discom fot upon bladde r palpat ion 22:46 Medica l Decisi on Making This is a 57-yea r-old male with past medica l histor y of cognit atmi delay, SNUFF BLENDER shunt, who is relati vely nonver bal, with a chroni c indwel ling Lyles second reed to neurog enic bladde r, presen ts today for an obstru cted Lyles. Histor y is notabl y limite d, patien t is nonver bal. EMS marcos t the patijoni t in and gives a confli cting report compar ed to family . Per family he has not had any output since 11 AM. Tyleno l was given with only mild improv ement. Juice frost had some suprap ubic tender ness, and the patijoni t was marcos t in for furthe r assess ment. Temper ature at home was 98-99 per family . Family felt that the juice frost was in pain later. No other compla ints or histor y at this time. Lyles cathet er was recent ly change d 6 days ago. Juice frost had been on antibi otics previo usly about a month ago for urinar y tract infect ion which demons trated enteri c bacter ia that was cefazo amol resist ant but otherw ise pansen sitive . Exam demons trates intact Lyles cathet er, no blood at the urethr al meatus or discha rge. No urine in the Lyles bag. Juice frost has defeca leidy on himsel f in his diaper . Suprap ubic pressu re is noted. Bedsid e ultras ound shows greate r than 500 cc in the bladde r. Juice frost is notabl y afebri le here. He is tachyc ardic in the 120s on arriva l. Concer n for urinar y obstru ction. Will place Lyles cathet er and reasse ss. 11:50 PM Lyles cathet er placed succes sfully withou t compli cation . Notabl e amount of mucus was presen t. Urine cloudy . Urine is concer jarett for infect ion. Cultur e result s show eviden ce of enteri c bacter ia that is cefazo amol resist ant. Juice frost is afebri le here, no hypote nsion or signs of shock. After remova l of around 6 to 700 cc of urine juice frost is feelin g much better . No diapho resis. No suprap ubic or abdomi nal tender ness. Suspec t juice frost may have chroni c and he has mucus produc tion second reed to infect ion. Will start the patijoni t on cefpod oxime. Juice t appear s notabl y clinic ally improv ed. Juice t stable for discha rge. Discus sed the plan with the patien t's caregi laura who is at bedsid e. I have extens ively review ed the treatm ent plan and discha rge instru ctions with the patien t and their family . I have addres sed all patijoni frost concer ns at this time. The patien t and family was made aware of what sympto ms to monito r for that would jeffery frost a return to the emerge ncy depart ment. Discus sed the plan with the patien t and family , they demons trate verbal unders tandin g and agreem ent with our assess ment and plan at this time. The docume ntatio n in this chart was dictat ed using [employer] original products ion softwa re. Please excuse any dictat ion errors . Qualit y:SDOH Health Relate d Social Needs: No Data to Displa y Discha rge Plan Dispos ition Patijoni t Dispos ition: Home Discha rge Detail s Clinic al Impres ida: Guillermo cathet er proble m Primar y Care Provid er: Trinidad Lau ED Provid er: Dejan Campa Home Meds and New Rx's Prescr iption s: New cefpod oxime 100 mg tablet 100 mg PO BID 10 Days Qty: 20 0RF Rx Instru ctions : must admini ster with a meal/f ood No Action multiv itamin Tablet 1 tab PO DAILY clotri mazole 1 % cream 1 applic topica l TID PRN PRN (Reaso n: rash) Qty: 60 0RF polyet hylene glycol 3350 [Glyco Lax] 527 GM powder 17 g PO DAILY cran-v itC-ma nnose- FOS-br omeln 1,937- 188 mg/15 mL liquid 188 mg PO BID Qty: 225 12RF Surgil ube Gel 1 applic TP QID Qty: 56.7 12RF potass ium citrat e 10 mEq (1,080 mg) tablet extend ed releas e See Rx Instru ctions .ROUTE .COMPL EX Qty: 60 6RF Dose Instru ction: TAKE ONE TABLET BY MOUTH TWICE A DAY Rx Instru ctions : TAKE ONE TABLET BY MOUTH TWICE A DAY bisaco dyl [Dulco lax (bisac odyl)] 10 mg Suppos itory 10 mg AL DAILY loraze rigoberto 1 mg Tablet 1 mg PO TID PRN cholec alcife rol (vitam in D3) [Vitam in D3] 1,000 unit Capsul e 1 unit PO DAILY Discha rge Instru ctions Instru ctions : Lyles Cathet er Placem ent and Care (ED) Additi onal Instru ctions : At this time the mucous plug has been remove d and the Lyles is now draini ng well after it was replac ed. Please contin ue to hydrat e well to contin ue a good flow of urine to preven t replug ging. Unfort unatel y the bacter ia that cause your infect ion have grown out to show resist ance to the medica tion that you are on. Please stop taking the Keflex that you are on and instea d take the cefpod oxime. This prescr iption has been sent to your pharma cy on file. Please follow -up closel y with the urolog ist Dr. House for furthe r discus ida of the contin ued urinar y mucus produc tion that you have been having . If you notice any worsen ing of your sympto ms, or any new sympto ms such as vomiti ng, diarrh ea, fever, chills , shortn ess of breath , chest pain, numbne ss, weakne ss, or fainti ng , please return immedi ately to the emerge ncy depart ment for reeval uation . Please follow up with your primar y care provid er as soon as possib le for reasse ssment and reeval uation . As always , it was a pleasu re partic anu fernández in your medica l care today. Referr als: Joey House MD [ [facility] STAFF PHYSIC NICOLE] - Trinidad Lau MD [Prima ry Care Provid er] - Discha rge Data Discha rge Date/T gerber-TO BE ENTERE D AT DEPART URE: 00:23 cc: RUBIN LAU MD ------ ------ ------ ------ ------ ------ ------ ------ ------ ------ ------ --- Dictat ed by: WAQAS CAMPA DO Dictat ed: Time: 53 Date: 525 Date: Date: Transc ribed Date: Transc ribed Time: 2352 By: JESSICA Metcalf This is privil eged, confid ential inform ation, intend ed only for the provid er named. Any use or distri bution by any person other than this provid er is strict ly prohib ited. If you receiv e this repo rt in error, please notify us immedi ately at and return the origin al report to us at the addres s above. Thank you. [email or web address] [facility] [address] [place], [address] 08/21/2023 07:03:01 08/31/19 24 08/30/2023 ED visit note ED Visit Note JUICE Frost NAME: Arvind Ambriz UNIT #: [id number] ADMITT ING PROVID ER: Brii Olmedo M.D. ACCOUN T #: [id number] PRIMAR Y CARE PROVID ER: RUBIN LAU MD DATE OF ADMIT: : 1965 HPI Genera l Mode of arriva l: EMS . Date/T gerber Provid er Initia leidy Silasume ntatio n: 23:18 . Inform ation obtain ed by: family . HPI Narrat tami: 57yo M largel y nonver bal, chroni c indwel ling lyles, presen ts for dislod ged urinar y cathet er. Lyles fell out. No bleedi ng or trauma , balloo n appear ed deflat ed. Otherw ise in his usual state of health , no fevers , malodo angelika or cloudy urine, or other concer ns. Relate d Data Home Medica tions Medica tion Instru ctions Record ed Confir med polyet hylene glycol 3350 17 17 g PO DAILY gram/d ose oral powder (Glyco Lax) bisaco dyl 10 mg rectal suppos itory 10 mg AL DAILY (Dulco lax (bisac odyl)) cholec alcife rol (vitam in D3) 25 1 unit PO DAILY mcg (1,000 unit) capsul e (Vitam in D3) loraze rigoberto 1 mg tablet 1 mg PO TID PRN cranbe rry-vi tC-man nose-F OS-bro melain 188 mg PO BID infect ion preven tion 1,937 mg-188 mg/15 mL oral liquid #225 mL surgic al lubric ant jelly 1 applic topica l QID #56.7 grams (Surgi lube topica l gel) clotri mazole 1 % topica l cream 1 applic topica l TID PRN PRN rash #60 grams multiv itamin 1 tab PO DAILY potass ium citrat e 10 mEq (1,080 See Rx Instru ctions .Route mg) tablet ,exten ded releas e .COMPL EX #60 tabs Previo us Rx's Medica tion Instru ctions Record ed cranbe rry-vi tC-man nose-F OS-bro melain 188 mg PO BID infect ion preven tion 1,937 mg-188 mg/15 mL oral liquid #225 mL surgic al lubric ant jelly 1 applic topica l QID #56.7 grams (Surgi lube topica l gel) clotri mazole 1 % topica l cream 1 applic topica l TID PRN PRN rash #60 grams potass ium citrat e 10 mEq (1,080 See Rx Instru ctions .Route mg) tablet ,exten ded releas e .COMPL EX #60 tabs Allerg ies Allerg y/AdvR eac Type Severi ty Reacti on Status Date / Time carbam azepin e [From Tegret ol] Allerg y Unknow n Unknow n Verifi ed 20:18 gabape ntin [From Neuron tin] Allerg y Unknow n Unknow n Verifi ed 20:18 risper idone [From Risper pavel] Allerg y Unknow n Unknow n Verifi ed 10:17 Sulfa (Sulfo namide AdvRea c Mild Per pt. Verifi ed 10:17 Antibi otics) mother causes stomac h ache haldol AdvRea c Unknow n Uncode d 20:19 Genera l Stated Compla int: Urinar y SCHUYLER: 4 Review of System s Narrat tami: see HPI Exam Narrat tami Exam Narrat tami: Genera l: Alert, in no acute distre ss. Head: Normoc ephali c, atraum atic Neck: Trache a midlin e, ???Nec k supple . Cardia c: ???RRR , no murmur s apprec iated Resp: No respir atory distre ss. CTAB. Abd: ???Sof t, non-di stende d, nonten justice : ???No suprap ubic tender ness or fullne ss. Extrem ities: ???No periph eral edema. Course Vital Signs Vital signs: Vital Signs Temper ature 36.6 C 23:13 Pulse 90 23:13 Respir atory Rate 18 23:13 Blood Pressu re 173/99 H 23:13 Pulse Oximet ry 100 23:13 Temper ature 36.6 C 23:13 Temper ature Source Tempor al Artery Scan 23:13 Pulse 90 23:13 Respir atory Rate 18 23:13 Respir atory Effort Normal 23:17 Blood Pressu re 173/99 H 23:13 Blood Pressu re Positi on Supine 23:13 Pulse Oximet ry 100 23:13 Oxygen Delive ry Method Room Air 23:13 Oxygen Flow Rate 0 23:13 Medica l Decisi on Making 57yo M largel y nonver bal, chroni c indwel jarrett gómez ts for dislod ged urinar y cathet er. Histor y from [facility] at bedsid e No bleedi ng or trauma , balloo n appear ed deflat ed. No UTI sympto ms. No indica tion for labs or UA. Vital signs and physic al exam reassu ring. Guillermo replac ed withou t compli cation , draine d clear yellow urine. Discha rged home; discha rge instru ctions and return precau tions were review ed with [facility] who verbal ized unders rachel fernández; all questi ons were answer ed and they are in full agreem ent with the plan. 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 Surgic al Histor y (Revtue @ 05:22 by Rock Campa DO) S/P cranio rigo S/P SNUFF BLENDER shunt Social Histor y (Revie tue @ 05:22 by Rock Campa DO) 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 Use Status : Never Smokin g risk assess ment perfor med?: Yes Alcoho l Intake : never Drug use: Never Substa nce use type: does not use Caregi laura/Bravo pport person : Yes (paren ts are primar y careta kers) Househ old member s: family Housin g: house Additi onal Social histor y: not able to assess privat aaliyah Discha rge Plan Dispos ition Patien t Dispos ition: Home Condit ion: Good Discha rge Detail s Clinic al Impres ida: Urinar y cathet er insert ion/ad justme nt/rem oval Primar y Care Provid er: Trinidad Lau ED Provid er: Brii Olmedo Home Meds and New Rx's Prescr iption s: Contin ued multiv itamin Tablet 1 tab PO DAILY clotri mazole 1 % cream 1 applic topica l TID PRN PRN (Reaso n: rash) Qty: 60 0RF polyet hylene glycol 3350 [Glyco Lax] 527 GM powder 17 g PO DAILY cran-v itC-ma nnose- FOS-br omeln 1,937- 188 mg/15 mL liquid 188 mg PO BID Qty: 225 12RF Surgil ube Gel 1 applic TP QID Qty: 56.7 12RF potass ium citrat e 10 mEq (1,080 mg) tablet extend ed releas e See Rx Instru ctions .ROUTE .COMPL EX Qty: 60 6RF Dose Instru ction: TAKE ONE TABLET BY MOUTH TWICE A DAY Rx Instru ctions : TAKE ONE TABLET BY MOUTH TWICE A DAY bisaco dyl [Dulco lax (bisac odyl)] 10 mg Suppos itory 10 mg AL DAILY loraze rigoberto 1 mg Tablet 1 mg PO TID PRN cholec alcife rol (vitam in D3) [Vitam in D3] 1,000 unit Capsul e 1 unit PO DAILY Discha rge Instru ctions Instru ctions : Lyles Isaías er Placem ent and Care (ED) Additi onal Instru ctions : Return to the emerge ncy depart ment for new or worsen ing sympto ms. Referr als: Trinidad Lau MD [Prima ry Care Provid er] - cc: RUBIN LAU MD Y ------ ------ ------ ------ ------ ------ ------ ------ ------ ------ ------ --- Dictat ed by: Brii Olmedo M.D. Dictat ed: Time: 2321 Date: 26 Date: Date: Transc ribed Date: Transc ribed Time: 2321 By: MICHAEL This is privil eged, confid ential inform ation, intend ed only for the provid er named. Any use or distri bution by any person other than this provid er is strict ly prohib ited. If you receiv e this r eport in error, please notify us immedi ately at and return the origin al report to us at the addres s above. Thank you. [email or web address] [facility] [address] , [place], [address] 08/31/2023 08:30:10 Result Notes None recorded. Problems Name Problem SNOMED Code Status Onset Date Resolution Date Notes Provider Name and Address Organization Details Recorded Time Profound intellec tual disabili ty 13954403 Active 2003 Problem Code: F73; Problem Code Type: ICD-10; MD [address], [place], [address] , [facility], [facility] 3 06:21:21 Onychomy cosis due to dermatop hyte 507574897 [facility] 4 10:37:37 Abnormal gait 86282142 Active 2016 [facility] 4 10:38:19 Pneumoni a 596206090 Completed 201612/21/2016 Problem Code: J18.9; Problem Code Type: ICD-10; [facility] 4 10:37:14 Pneumoni a 012868432 Completed 201606/07/2017 Problem Code: J18.9; Problem Code Type: ICD-10; [facility] 4 10:37:14 Muscle weakness 07630782 Active 2017 [facility] [facility] 4 10:37:28 Reduced mobility 1022570 Active 2017 Problem Code: Z74.09; Problem Code Type: ICD-10; MD Franco [address], [facility] [address] , [facility] 3 06:21:22 History of infectio us disease 383140989 Active 2018 Solher Haynes [facility] 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 958685858 Active 2018 Problem Code: N31.9; Problem Code Type: ICD-10; MD [address], [facility] [address] , [facility] 3 06:21:21 Constipa tion 72894219 Active 2020 Problem Code: K59.09; Problem Code Type: ICD-10; MD [address], [place], [address] , [facility] 3 06:21:21 Blephari tis 67102351 [facility] 2020 [facility] 4 10:38:13 Cough 39285172 Completed 202003/31/2021 Problem Code: R05; Problem Code Type: ICD-10; Not Available [facility] 3 05:10:29 Acute upper respirat ory infectio n 54345525 Completed 202003/31/2021 Problem Code: J06.9; Problem Code Type: ICD-10; Not Available [facility] 3 05:10:29 Pinhole meatus 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 Active 2021 [facility] 4 10:37:18 Neurofib romatosi s type 2 08621617 Active 2003 Problem Code: Q85.02; Problem Code Type: ICD-10; MD Franco [address], [address] , [facility] 3 06:21:22 Benign neoplasm of meninges 656175884 Active 2003 Problem Code: D32.9; Problem Code Type: ICD-10; MD Franco [address], [place] [address] , [facility] 3 06:21:21 Retentio n of urine 414245932 Active 2003 Problem Code: R33.9; Problem Code Type: ICD-10; MD Franco [address], [address] 3 06:21:21 Rosacea 322626453 Active 2011 Problem Code: L71.9; Problem Code Type: ICD-10; MD Franco [address], [facility] [address] [place] [address] 3 06:21:21 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 546939425 Active 2003 Problem Code: Z98.2; Problem Code Type: ICD-10; MD [address], [place], [address] , [facility] 3 06:21:22 Urinary tract infectio us disease 84181926 Active 2003 Problem Code: N39.0; Problem Code Type: ICD-10; MD Franco [address], [facility] [address] , [facility] 3 06:21:22 Neurofib romatosi s syndrome 29891070 Completed 200305/04/2023 Not Available [facility] 3 05:10:30 Pneumoni a 388810007 Completed 201408/26/2015 Problem Code: J18.9; Problem Code Type: ICD-10; Sol Ivy naranjo, [facility] 4 10:37:14 Mental retardat ion Completed 200305/04/2023 Not Available [facility] 3 05:10:30 Dental caries 82746164 Completed 201505/17/2016 Problem Code: K02.9; Problem Code Type: ICD-10; Not Available [facility] 3 05:10:30 Acute bronchos pasm 03530629844 100 Completed 201412/08/2015 Problem Code: J98.01; Problem Code Type: ICD-10; Not Available [facility] 3 05:10:30 Altered bowel function 18384416 Completed 201902/17/2021 Problem Code: R19.4; Problem Code Type: ICD-10; Not Available [facility] 3 05:10:31 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 159230327 Completed 200305/04/2023 Problem Code: 237.6; Problem Code Type: ICD-9; Not Available [facility] 3 05:10:31 Urethral stenosis 594643500 Active [address], [place], [address] , [facility] 3 06:21:17 Intracra nial meningio ma 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 Active [address], [facility] [address] , [facility] 3 06:22:15 At increase d risk for aspirati on 169311216 Active [address], [facility] [address] [place] [address] 3 06:25:12 Neurogen ic urinary bladder 275024875 Active 2023 Solher Haynes [facility] 4 10:37:24 History of calculus of kidney 789504826 Active 2023 Sol Ivy [facility] 4 10:37:39 Pneumoni a 943425258 Active 2022 Problem Code: J18.9; Problem Code Type: ICD-10; [facility] 4 10:37:13 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 Sol Haynes [facility] 4 10:37:42 Anxiety 42235115 Active [address], [facility] [address] , [facility] 4 17:46:07 Tinea erna 452628785 Active [address], [facility] [address] , [facility] 4 17:47:47 Follicul itis 36715442 Active [address], [facility] [address] , [facility] 17:49:09 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 26502279 Active [address], [place] [address] , [facility] 21:20:48 Hypertro phy of nail 66500985 Active [address], [place] [address] , [facility] 21:30:56 Impacted cerumen of bilatera l ears 75761800256 [address]3733 Active [address], [address] 21:36:10 Visual impairme nt 556302930 Active [address], [place] [address] , [facility] 21:38:03 Atypical pneumoni a 180499667 Active [address], [place] [address] , [facility] 15:18:40 Skin lesion 90849836 Active [address], [place] [address] , [facility] 15:35:35 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 2023 DHARA JACKSON MA null, [facility] 15:07:20 Edema 151508995 Active 2023 DHARA JACKSON MA null, [facility] 15:08:01 Disorder of nail 40721841 Active 2023 DHARA JACKSON MA null, [facility] 4 15:09:41 Jeferson dooley atherosc lerosis of arteries of lower limbs 36090169812 370409 Active 2023 DHARA HENRIQUEZRYNE Werner [facility] 4 15:09:52 Urinary bladder stone 24714305 Active 2023 DHARA POERYNE UMANA [facility] 4 10:24:10 Problem Notes Documentation Provider Name and Address Organization Details Recorded Time Manager Military Consult Note : Podiatry Office Visit PATIENT NAME: Hollis Ambriz UNIT #: [id number] ADMITTING PROVIDER: Vane Lehman DPM 069 PRIMARY CARE PROVIDER: FELIBERTO STARKS MD DATE OF ADMIT: 02/22/24 : 1965 Assessment Plan (1) Onychomycosis: (2) Nail dystrophy: (3) Onychogryphosis: (4) Atherosclerosis of artery of both lower extremities: (5) Edema: Fungal toenails: I discussed proper foot and nail and shoe hygiene to help prevent further spread of fungal nails. We also discussed topical anti-fungal medication use such as ketoconazole daily until the fungal nail is resolved. I recommended using urea 40% cream to the toenails daily to help thin and soften the nails which should also help with better absorption of ketoconazole. The patient was evaluated and treated. Treatment options were reviewed in detail. Dystrophic mycotic hallux nails bilaterally were debrided today with sterile nippers in clinic. This was performed uneventfully in clinic today with nail nippers, with a decrease in length and thickness achieved upon doing so. Remainder of the nails were trimmed today with sterile nippers. This was medically necessary with the patient???s PAD as well as class findings (Q9), making the patient at risk for complications, such as infection. Patient was encouraged to assess feet daily, present to clinic immediately if there are any open wounds, blisters, ulcerations, or signs of infection. Emphasis was placed on appropriately fitting footwear, use of socks, drying in between his toes, and use of lotion elsewhere. All questions were answered Follow-up in 4 months Referrals [facility] General Surgery I73.9 - Peripheral vascular disease, unspecified New ketoconazole 2% Apply to toenails once daily 1 applic topical DAILY 120 grams 6RF B35.1 - Tinea unguium Plan Detail Total time on date of encounter, (onlk-jg-mdpo and non rfja-qy-lbwz) (minutes): 20 Time was spent: reviewing prior notes and diagnostics, providing direct patient care, ordering diagnostics and/or referrals, documenting today's visit, updating the EMR, coordinating care and other HPI New pt ref by Raudel for hypertrophy of bilateral great toes. 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 There is edema to b/l LE. Capillary fill time is less than 3 seconds to distal digits bilaterally. Skin temperature is warm to warm bilateral lower extremity. No varicose veins or spider veins noted bilaterally. Hair growth is absent bilaterally. Musc Other: No gross abnormality no pain reported Skin Other: Skin is thin and dry, bilaterally. There are no lesions, growths, subcutaneous nodules or ulcers bilaterally. There is no erythema, ecchymosis or rash to either LE. Hair growth is normal bilaterally. Bilateral hallux nails are severely thickened elongated gryphotic discolored and with heavy subungual debris. Remainder of the nails are elongated however without any thickening Neuro Other: Sensory testing deferred today Intake Vital Signs 02/22/24 11:36 02/22/24 11:43 BP 100/70 Blood Pressure Location Rt brachial Position Sitting Pulse 85 Pulse Source Monitor Pulse Oximetry (%) 97 98 Oxygen Delivery Method room air room air Intake Visit Reasons: Nail Care Nurse Note: New pt ref by Raudel for hypertrophy of bilateral great toes. He was prescribed Ketoconazole and Urea cream as well. He was accompanied by his home-care providers. Last saw PCP Raudel of [facility] on 11/07/23. Allergies Allergy/AdvReac Type Severity Reaction Status Date / Time carbamazepine (From Tegretol) Allergy Unknown Unknown Verified 01/05/24 20:48 gabapentin (From Neurontin) Allergy Unknown Unknown Verified 01/05/24 20:48 risperidone (From Risperdal) Allergy Unknown Unknown Verified 01/05/24 20:48 Sulfa (Sulfonamide AdvReac Mild Per pt. Verified 01/05/24 20:48 Antibiotics) mother causes stomach ache haldol AdvReac Unknown Other (See Uncoded 01/05/24 20:48 Comment) Home Medications ???Medication ???Instructions ???Recorded ???Confirmed ???Type polyethylene glycol 3350 17 17 g PO DAILY 08/25/15 02/22/24 History gram/dose oral powder (GlycoLax) bisacodyl 10 mg rectal suppository 10 mg AL DAILY 04/26/19 02/22/24 History (Dulcolax (bisacodyl)) cholecalciferol (vitamin D3) 25 1 unit PO DAILY 04/26/19 02/22/24 History mcg (1,000 unit) capsule (Vitamin D3) lorazepam 1 mg tablet 1 mg PO TID PRN 04/26/19 02/22/24 History clotrimazole 1 % topical cream 1 applic topical TID PRN PRN rash 04/27/21 02/22/24 Rx #60 grams multivitamin 1 tab PO DAILY 04/06/22 02/22/24 History potassium citrate 10 mEq (1,080 See Rx Instructions .Route 07/07/23 02/22/24 Rx mg) tablet,extended release .COMPLEX #60 tabs sertraline 25 mg tablet 25 mg PO DAILY 12/30/23 02/22/24 History cephalexin 500 mg capsule 500 mg PO TID antibiotic #30 caps 01/27/24 02/22/24 Rx ketoconazole 2 % topical cream 1 applic topical DAILY #120 grams 02/22/24 02/22/24 Rx PFSH All Active Problems (Updated 02/22/24 @ 12:49 by Vane Lehman DPM) Edema (Acute) Atherosclerosis of artery of both lower extremities (Acute) Onychogryphosis (Acute) Nail dystrophy (Acute) Onychomycosis (Acute) Neurogenic bladder (Acute) Bacteremia (Acute) Discharge planning issues (Acute) Neurogenic bladder (Acute) Diarrhea (Acute) Urinary catheter insertion/adjustment/remova l (Acute) DVT prophylaxis (Acute) Community acquired pneumonia (Acute) Complicated UTI (urinary tract infection) (Acute) Sepsis (Acute) Medical History Acute UTI Urethral stricture Wheelchair dependent 2 assist Developmental non-verbal disorder Urinary retention Meningioma Neurofibromatosis 2 Surgical History S/P craniotomy S/P SNUFF BLENDER shunt Social History Smoking/Tobacco Use Status: Never Smoking risk assessment performed?: Yes Alcohol Intake: never Drug use: Never Substance use type: does not use Caregiver/Support person: Yes (parents are primary caretakers) Household members: family Housing: house Additional Social history: not able to assess privately Coding Level of Care Code New Patient Level 4 Diagnoses Onychomycosis B35.1 Nail dystrophy L60.3 Onychogryphosis L60.2 Atherosclerosis of artery of both lower extremities I70.203 Edema R60.9 CPT Codes DEBRIDE NAIL 1-5 - 46887 ([id number]) TRIM NAIL(S) ANY NUMBER - 40775 ([id number]) cc: Dictated by: Vane Lehman DPM Dictated: 02/22/24 Time: 1130 Date: 02/22/24 1251 Date: Date: Transcribed Date: 02/22/24 Transcribed Time: 1130 By: PABLO This is privileged, confidential information, intended only for the provider named. Any use or distribution by any person other than this provider is strictly prohibited. If you receive this report in error, please notify us immediately at [phone] and return the original report to us at the address above. Thank you. FELIBERTO STARKS MD [address], [place], [address], [facility]. 02/22/2024 19:30:02 Urology Note : Urology Clinic Visit PATIENT NAME: Hollis Ambriz UNIT #: [id number] ADMITTING PROVIDER: Jane Pennington [facility] ACCOUNT #: [id number] PRIMARY CARE PROVIDER: FELIBERTO STARKS MD DATE OF ADMIT: 03/20/24 : 1965 Assessment Plan (1) Neurogenic bladder: (2) Urethral stricture: (3) Bladder calculi: Plan Nursing exchanged catheter. See procedure section. In regards to the potassium concern for dosing and frequency, I asked they confirm the dosage on the bottle and give us a call so we can provide updated rx if needed. We will plan on seeing him as scheduled and as needed. Dictation was done by [employer] voice recognition. Errors may be present within the note. A total of 18 minutes was spent reviewing this patient's EMR, uyrn-pv-fcei time, and documenting. Plan Detail Total time on date of encounter, (hbec-zn-rugt and non hjkj-dq-wuyi) (minutes): 18 Time was spent: reviewing prior notes and diagnostics, providing direct patient care, documenting today's visit and coordinating care HPI Hollis is a 58-year-old gentleman who has a history of urinary retention due to a neurogenic bladder. He also has urethral stricture disease. He was being managed with intermittent catheterization. It became more more difficult to catheterize this gentleman, so he now has an indwelling urethral catheter. He comes in to have his catheter changed. No concerns from caregivers. They do ask about his potassium citrate dosing d/t NEHKS reviewing medication lists. They note only giving him 1 tab daily and think its a 20meq dosage. Review of Systems Const: Reports as per HPI : Reports as per HPI Exam Const Other: He appears comfortable. He does not appear septic or toxic He is awake and responsive. Smiling. Sitting in WC. Intake Intake Visit Reasons: cath change Allergies Allergy/AdvReac Type Severity Reaction Status Date / Time carbamazepine (From Tegretol) Allergy Unknown Unknown Verified 01/05/24 20:48 gabapentin (From Neurontin) Allergy Unknown Unknown Verified 01/05/24 20:48 risperidone (From Risperdal) Allergy Unknown Unknown Verified 01/05/24 20:48 Sulfa (Sulfonamide AdvReac Mild Per pt. Verified 01/05/24 20:48 Antibiotics) mother causes stomach ache haldol AdvReac Unknown Other (See Uncoded 01/05/24 20:48 Comment) Home Medications ???Medication ???Instructions ???Recorded ???Confirmed ???Type polyethylene glycol 3350 17 17 g PO DAILY 08/25/15 02/22/24 History gram/dose oral powder (GlycoLax) bisacodyl 10 mg rectal suppository 10 mg AL DAILY 04/26/19 02/22/24 History (Dulcolax (bisacodyl)) cholecalciferol (vitamin D3) 25 1 unit PO DAILY 04/26/19 02/22/24 History mcg (1,000 unit) capsule (Vitamin D3) lorazepam 1 mg tablet 1 mg PO TID PRN 04/26/19 02/22/24 History clotrimazole 1 % topical cream 1 applic topical TID PRN PRN rash 04/27/21 02/22/24 Rx #60 grams multivitamin 1 tab PO DAILY 04/06/22 02/22/24 History potassium citrate 10 mEq (1,080 See Rx Instructions .Route 07/07/23 02/22/24 Rx mg) tablet,extended release .COMPLEX #60 tabs sertraline 25 mg tablet 25 mg PO DAILY 12/30/23 02/22/24 History cephalexin 500 mg capsule 500 mg PO TID antibiotic #30 caps 01/27/24 02/22/24 Rx ketoconazole 2 % topical cream 1 applic topical DAILY #120 grams 02/22/24 02/22/24 Rx PFSH All Active Problems (Updated 02/22/24 @ 12:49 by Vane Lehman DPM) Edema (Acute) Atherosclerosis of artery of both lower extremities (Acute) Onychogryphosis (Acute) Nail dystrophy (Acute) Onychomycosis (Acute) Neurogenic bladder (Acute) Sepsis (Acute) Complicated UTI (urinary tract infection) (Acute) Community acquired pneumonia (Acute) DVT prophylaxis (Acute) Urinary catheter insertion/adjustment/remova l (Acute) Diarrhea (Acute) Neurogenic bladder (Acute) Discharge planning issues (Acute) Bacteremia (Acute) Medical History Acute UTI Urethral stricture Wheelchair dependent 2 assist Developmental non-verbal disorder Urinary retention Meningioma Neurofibromatosis 2 Surgical History S/P craniotomy S/P SNUFF BLENDER shunt Social History Smoking/Tobacco Use Status: Never Smoking risk assessment performed?: Yes Alcohol Intake: never Drug use: Never Substance use type: does not use Caregiver/Support person: Yes (parents are primary caretakers) Household members: family Housing: house Additional Social history: not able to assess privately Coding Diagnoses Neurogenic bladder N31.9 Urethral stricture N35.919 Bladder calculi N21.0 Change Bladder Catheter Procedure performed by: Shonda Petersen Inplace catheter size (Fr): 16 Inplace catheter type: lyles Water amount removed from catheter balloon: 9cc Catheter removed: without difficulty Catheter intact: Yes Sterilizing agent: Yes Type: betadine Type of anesthesia: topical gel Catheter size (Fr): 16 Catheter type: lyles Lubrication: Yes Catheter inserted: without difficulty Volume instilled into catheter balloon: 10cc Catheter attached to: bedside drainage bag Patient tolerated procedure: well Complications: No Text: Patient was able to stand and ambulate to and from wheelchair very well today. cc: FELIBERTO STARKS MD Dictated by: JANE PENNINGTON NP Dictated: 03/20/24 Time: 05 24 Date: 03/20/24 1034 Date: Date: Transcribed Date: 03/20/24 Transcribed Time: 1016 By: MARI This is privileged, confidential information, intended only for the provider named. Any use or distribution by any person other than this provider is strictly prohibited. If you receive this report in error, please notify us immediately at [phone] and return the original report to us at the address above. Thank you. DOROTHY naranjo [place] [facility] 03/23/2024 11:08:51 Procedures Surgical History None recorded. Imaging Results Imaging Date Name Status LastModified by Johanna de la torre Details LastModified Time 07/14/2023 ED visit note completed [email or web address] [facility] [address] [place], [address] 07/15/2023 07:47:36 07/15/2023 vrad report completed [address] [place], [address] 07/15/2023 07:47:37 07/15/2023 ED progress note completed [address] [place], [address] 07/15/2023 07:47:37 07/15/2023 CT, abdomen + pelvis, w/ contrast completed [address] [place], [address] 07/15/2023 12:07:27 08/12/2023 ultrasound imaging report completed [address] [place], [address] 08/14/2023 16:21:59 08/18/2023 ED visit note completed [address] [place], [address] 08/21/2023 07:03:01 08/30/2023 ED visit note completed [address] [place], [address] 08/31/2023 08:30:10 Procedure Notes None recorded. Medical Equipment None Reported. Allergies Allergen ID Allergen Name Allergen Category Reaction Reaction Severity Criticality Documentation Date Start Date Code Code System Note Provider Name and Address Organization Details Recorded Time 34196 Tegretol medicatio n Not available Not available Not available 06/17/20232001 9 RxNorm Not Available [facility] 16:07:31 97567 sulfadiaz ine medicatio n other mild Not available 06/17/20232001 91635 RxNorm gi upset Aller gyRea ction : 'gi upset '; Not Available [facility] 16:07:32 46179 Risperdal medicatio n Not available Not available Not available 06/17/20232001 70645 8 RxNorm Aller gyCod e: '1249 67400 01'; Aller gyNam e: 'RISP ERDAL '; Aller gyCon ceptT ype: 'NDC' ; Not Available [facility] 3 16:07:32 93020 Neurontin medicatio n other moderate low 08/02/2023 66644 8 RxNorm ataxi a GIANCARLO LAU MD [address], [place], [address] [place] [address] 3 06:24:47 Medications Name Sig Start Date Stop Date Status Note LastModified by Organization Details LastModified Time quetiapin e 25 mg tablet Take 1 tab by mouth twice daily as needed for agitatio n 11/06 completed Not Available Not Available Not Available penicilli n V potassium 250 mg tablet 1 qid 12/29 completed Not Available Not Available Not Available doxycycli ne hyclate 100 mg capsule Take 1 capsule twice aday for 7 days 11/06 completed Not Available Not Available Not Available ipratropi um 0.5 mg-albute rol 3 mg (2.5 mg base)/3 mL nebulizat ion soln INHALE THE CONTENTS OF ONE VIAL VIA NEBULIZE R FOUR TIMES A DAY active Not Available Not Available No t Available Vitamin C [address] mg [address] Not Available Not Available Not Available polyethyl willie glycol 3350 17 gram oral powder packet TAKE ONE PACKET BY MOUTH EVERY DAY 2023 active Not Available Not Available Not Avai lable Phenergan 12.5 mg tablet 1TAB tid 2011 active Not Available Not Available Not Avai lable cefpodoxi me 200 mg tablet Take 1 tablet twice a day by oral route. 02/02 completed Not Available Not Available Not Available azithromy phyllis 250 mg tablet TAKE 2 TABLETS BY MOUTH ONE DOSE ON DAY 1, THEN 1 TABLET DAILY ON DAYS 2-5 active Not Available Not Available No t Available cefpodoxi me 100 mg tablet TAKE ONE TABLET BY MOUTH TWICE A DAY WITH MEALS 11/06 completed Not Available Not Available Not Available cephalexi n 250 mg capsule Take 1 capsule four times a day 12/30 completed Not Available Not Available Not Available fluconazo le 200 mg tablet TAKE ONE TABLET BY MOUTH EVERY DAY FOR 3 DAYS 11/06 completed Not Available Not Available Not Available Surgilube topical gel use when catheter izing pt QID and prn dx R33.9, needs frequent catheriz ations dur to decompre ss his bladder and avoid pressure related injury to his kidneys 02/09 completed Not Available Not Available Not Available Levaquin 750 mg tablet Take 1 tab by mouth daily 05/22 completed Not Available Not Available Not Available ondansetr on HCl 4 mg tablet 04/26 completed Not Available Not Available Not Available cephalexi n 250 mg tablet TAKE ONE TABLET BY MOUTH THREE TIMES A DAY FOR 7 DAYS 08/02 completed Not Available Not Available Not Available doxycycli ne hyclate 50 mg capsule 1 capsule by mouth once a day 05/11 completed Not Available Not Available Not Available penicilli n V potassium 500 mg tablet take 1 tablet 4 times daily for 7 days 03/08 completed Not Available Not Available Not Available ciproflox acin 250 mg tablet TAKE ONE TABLET BY MOUTH TWICE A DAY 11/06 completed Not Available Not Available Not Available amoxicill in 500 mg tablet 1 CAP TID 05/21 completed Not Available Not Available Not Available ketorolac 10 mg tablet 1tab q 6 hr 10/04 completed Not Available Not Available Not Available amoxicill in 875 mg tablet take 1 tab by mouth twice daily 12/23 completed Not Available Not Available Not Available hydrocodo ne-acetam inophen 500-5 mg tablet 1tab q4h 04/07 completed Not Available Not Available Not Available meclizine 25 mg tablet 1 TAB every six hours 05/29 completed Not Available Not Available Not Available potassium citrate ER 10 mEq (1,080 mg) tablet,ex tended release TAKE ONE TABLET BY MOUTH TWICE A DAY active Not Available Not Available No t Available bisacodyl 10 mg rectal supposito ry INSERT ONE SUPPOSIT ORY RECTALLY EVERY OTHER DAY active Not Available Not Available No t Available cephalexi n 500 mg capsule TAKE ONE CAPSULE BY MOUTH THREE TIMES A DAY FOR ANTIBIOT IC active Not Available Not Available No t Available erythromy phyllis 5 mg/gram (0.5 %) eye ointment Apply to affected eye(s) every 3 times daily for ocular rosacea 10/30 completed Not Available Not Available Not Available cephalexi n 250 mg/5 mL oral suspensio n TAKE 10ML BY MOUTH FOUR TIMES A DAY FOR 5 DAYS 08/02 completed Not Available Not Available Not Available Cipro 500 mg tablet 1 tablet by mouth twice a day 06/14 completed Not Available Not Available Not Available nitrofura ntoin macrocrys robert 100 mg capsule 1 tab by mouth twice daily for 7 days 02/05 completed Not Available Not Available Not Available nystatin 100,000 unit/gram topical cream Apply twice a day 11/06 completed Not Available Not Available Not Available sertralin e 25 mg tablet TAKE ONE TABLET BY MOUTH EVERY DAY active Not Available Not Available No t Available cephalexi n 500 mg tablet Take 1 tablet by mouth three times a day 03/07 completed Not Available Not Available Not Available amoxicill in 250 mg capsule 1 CAP TID 07/10 completed Not Available Not Available Not Available hydroxyzi ne HCl 25 mg tablet 1 qhs 12/22 completed Not Available Not Available Not Available Levaquin 500 mg tablet 1TAB qd 05/14 completed Not Available Not Available Not Available lorazepam 1 mg tablet TAKE ONE TABLET BY MOUTH EVERY 8 HOURS NEEDED active Not Available Not Available No t Available dicloxaci llin 250 mg capsule 1 capsule by mouth four times a day 02/17 completed Not Available Not Available Not Available clotrimaz ole 1 % topical cream APPLY TO AFFECTED AREA(S) AND SURROUND ING AREAS OF SKIN BY TOPICAL ROUTE TWO TIMES A DAY IN THE MORNING AND EVENING active Not Available Not Available No t Available sertralin e 50 mg tablet TAKE ONE TABLET BY MOUTH EVERY DAY active Not Available Not Available No t Available doxycycli ne hyclate 100 mg tablet TAKE ONE TABLET BY MOUTH TWICE A DAY FOR 7 DAYS 11/06 completed Not Available Not Available Not Available Invanz 1 gram solution for injection 2018 active [facility] Not Available Not Available Not Avai lable amoxicill in 875 mg-potass ium clavulana te 125 mg tablet TAKE ONE TABLET BY MOUTH TWICE A DAY FOR 5 DAYS 08/02 completed Not Available Not Available Not Available Ventolin HFA 90 mcg/actua tion aerosol inhaler Inahle 2 puffs by mouth every 4-6 hours as needed 12/07 completed Not Available Not Available Not Available clindamyc in phosphate 1 % topical solution APPLY TO AFFECTED AREA(S) TWO TIMES A DAY active Not Available Not Available No t Available Augmentin 875 mg tablet 1 TAB BID 09/01 completed Not Available Not Available Not Available cholecalc iferol (vitamin D3) 25 mcg (1,000 unit) capsule 1 capsule once a day 2015 active Not Available Not Available Not Avai lable Comp-Air Nebulizer Compresso r SEE INSTRUCT IONS active Not Available Not Available No t Available Vitamin D3 25 mcg (1,000 unit) tablet 1 cap daily 2015 active Not Available Not Available Not Avai lable GlycoLax 17 gram/dose oral powder 1 scoopful (17gm) daily 2014 active Not Available Not Available Not Avai lable nitrofura ntoin monohydra te/macroc rystals 100 mg capsule 1 capsule by mouth twice a day 02/28 completed Not Available Not Available Not Available Bel Briefs-Sm all Use 1 each as directed once a day 2021 active [facility] - Fax number Not Available Not Available Not Available BreatheRi te Spacer and Mask, Adult use with inhaler 12/07 completed Not Available Not Available Not Available Dulcolax (bisacody l) 1tab qd 05/29 completed Not Available Not Available Not Available Probiotic 1 tab daily 05/17 completed Not Available Not Available Not Available Claritin Liqui-Gel 10 mg capsule Take 1 tablet by mouth once a day 11/06 completed Not Available Not Available Not Available doxycycli ne 100mg capsule and topical skin cleanser no.19 1cap daily 02/26 completed Not Available Not Available Not Available Thick-It oral powder packet Take as directed mix in liquid to a nectar consiste ncy. Do not give with GlycoLax or MiraLAX. 2022 active Not Available Not Available Not Avai lable Cystex Cranberry 1,937 mg-188 mg/15 mL oral liquid Take 15 ml by mouth twice a day 11/[address] ed by Dr. House Not Available Not Available Not Available doxycycli ne hyclate 50 mg tablet 1 tablet by mouth once a day 07/10 completed Not Available Not Available Not Available d-mannose [address] House Not Available Not Available Not Available Vitals None Recorded Social History Question Answer Notes LastModified by Organizat ion Details LastModified Time Date Care Plan Printed: 01/26/2024 Information not available 01/26/2024 Assigned Sql Etl Developer: Luci Shafer Information not available 01/26/2024 Is [facility] The Lead Sql Etl Developer? Yes Information not available 01/26/2024 Level Of Intensity: Quarterly Information not available 01/26/2024 Team Based Care: Yes Informat ion not available 01/26/2024 Vision Barrier Yes Informatio n not available 01/26/2024 Social Barrier Yes Informatio n not available 01/26/2024 Medical Literacy Yes Informat ion not available 01/26/2024 Learning Barrier Yes Informat ion not available 01/26/2024 Last Care Team Meeting 01/26/2024 Information not available 01/26/2024 Transportation Barrier Yes Information not available 01/26/2024 Financial Barrier Yes Informa tion not available 01/26/2024 Community [employer] Yes Information not available 01/26/2024 Medication Assistance Yes Pt Relies On Caregivers Information not available 01/26/2024 Chronic Disease Management Yes Information not available 01/26/2024 Designated Agency Yes Informa tion not available 01/26/2024 Home Health Agency Yes Information not available 01/26/2024 Providers Yes Information not available 01/26/2024 Sex: Male Functional Status None recorded. Mental Status None recorded. Family History Nothing Reported. Medical History No medical history recorded. Immunizations Vaccine Type Date Status Provider Name and Address Organization Details Recorded Time Influenza, split virus, trivalent, preservative 05/17/2016 completed Not Available [facility] 06/17/2023 06:25:24 Influenza, split virus, quadrivalent, PF 05/11/2022 completed Not Available [facility] 06/17/2023 06:25:24 Influenza, split virus, quadrivalent, PF 05/14/2019 completed Not Available [facility] 06/17/2023 06:25:24 Influenza, split virus, quadrivalent, PF 05/19/2020 completed Not Available [facility] 06/17/2023 06:25:24 Influenza, split virus, quadrivalent, PF 06/16/2021 completed Not Available [facility] 06/17/2023 06:25:24 Influenza, split virus, quadrivalent, preservative 09/06/2018 completed Not Available [facility] 06/17/2023 06:25:24 COVID-19, mRNA, LNP-S, PF, 30 mcg/0.3 mL dose 11/04/2020 completed Not Available [facility] 06/17/2023 06:25:25 COVID-19, mRNA, LNP-S, PF, 30 mcg/0.3 mL dose 11/25/2020 completed Not Available [facility] 06/17/2023 06:25:25 COVID-19, mRNA, LNP-S, PF, 30 mcg/0.3 mL dose 05/19/2021 completed Not Available [facility] 06/17/2023 06:25:25 COVID-19, mRNA, LNP-S, PF, 30 mcg/0.3 mL dose, sabrina-sucrose 01/19/2022 completed Not Available [facility] 06/17/2023 06:25:25 COVID-19, mRNA, LNP-S, bivalent, PF, 30 mcg/0.3 mL dose 05/11/2022 completed Not Available [facility] 06/17/20 06:25:25 pneumococcal polysaccharide PPV23 05/08/2014 completed Not Available [facility] 2022 06:25:25 influenza, unspecified formulation 05/01/2014 completed Not Available [facility] 06/17/2023 06:25:25 Influenza, split virus, quadrivalent, PF 05/03/2023 completed Not Available [facility] 08/19/2023 05:31:33 COVID-19, mRNA, LNP-S, PF, sabrina-sucrose, 30 mcg/0.3 mL 05/11/2023 completed Not Available [facility] 08/19/2023 05:31:33 Past Encounters Encounter ID Performer Location Encounter Start Date Encounter Closed Date Diagnosis/Indication Diagnosis SNOMED-CT Code Diagnosis ICD10 Code [id number] GIANCARLO LAU MD [address] [address] 08/02/2023 13:33:29 08/02/2023 14:40:20 Counseling [id number] Z71.9 [id number] FELIBERTO STARKS MD [address] [address] 11/07/2023 15:25:43 11/28/2023 15:02:27 Anxiety 63356436 F41.9 Tinea cruris 753357486 B 35.6 Folliculitis 64463086 L7 3.9 Intracrani al meningioma 545459184 D32.0 Neurogenic urinary bladder 483766182 N31.9 Hypertrophy of nail 3065 4002 L60.2 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 Impacted c erumen of bilateral ears 3224152081 062250 H61.23 Visual impairment 641798 003 H54.7 [id number] FELIBERTO STARKS MD [address] [address] 02/03/2024 14:47:00 02/03/2024 15:32:11 Anxiety 65131194 F41.9 Atypical pneumonia 70220 6009 J18.9 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 14227365 Q93.2 Skin lesion 00890612 L98 .9 Goals Section Goal Description Status Start Date LastModified by Organization Details LastModified Time HH will be able to admit pt to their services and provide PT/OT and [employer] Waiting on Tarah the guardian to sign the paperwork Goal not achieved LUCI HOLLIS Information not available 01/26/2024 12:02:35 Caregivers will report signs of UTI immediately None Recorded Goal not achieved LUCIRAYMOND BASILIOREY Information not available 01/26/2024 12:05:17 Health Concerns Section Related Observation LastModified by Organization Detai ls LastModified Time None Recorded Concern Status LastModified by Organization Details LastModified Time None Recorded Advance Directives Directive None Recorded Payers Encounter Date Sequence Insurance Name Policy Number Policy [place] Covered Member ID Soliman Member ID Guarantor Name 08/02/2023 2 [facility] (MEDICAID) Hollis Ambriz [id number] Hollis Ambriz 08/02/2023 1 [place] [employer] Hollis Ambriz [id number] Hollis Miller Ambriz 11/07/2023 2 [facility] (MEDICAID) Hollis Ambriz [id number] Hollis Miller Ambriz 11/07/2023 1 [place] Hollis Ambriz [id number] Hollis Miller Ambriz 02/03/2024 2 [facility] (MEDICAID) Hollis Ambriz [id number] Hollis Miller Ambriz 02/03/2024 1 [place] [facility] Hollis Ambriz [id number] Hollis Ambriz Notes Date Note Type Note Provider Name and Address Organization Details Recorded Time 08/02/2023 text/html HPI Notes: Dvaid' s sister, Tarah Clark, is here to gain a better understanding of his condition and what to expect going forward. David is now in a fpc. Tarah is very impressed with their support, interest in David and services provided to date. She wonders if they can try to get him out of bed and up more than was occurring when he was living at home with his mother. He spent much of his time there in a day bed partly because of the limitations of his mother's physical strength and caregivers strength as well as his own impairment and balance and cognitive impairment and apraxias. Tarah thinks he is happy in his new environment. The couple he lives with have dogs which she enjoys. His older caregivers are still also coming in and providing assistance. He was in the ER because of obstructed Lyles catheter. The plan now is to leave the catheter in place, treat only symptomatic UTIs? fever or obvious change in behavior. He will have monthly catheter changes in Dr. House's office. He seems to be eating okay. No obvious aspiration events. He is getting Thick-It for liquids. Tarah is unaware of any nighttime problems. GIANCARLO LAU MD [address], [place], [address], [facility]. 08/02/2023 17:04:45 11/07/2023 text/html HPI Notes: Seen at home with two fpc providers (Albaro and Saranya), sister Tarah and his long time nurse who is retiring this week. His mother in May and she was his primary caregiver his whole life. Sister Tarah is now his guardian. His dad visits. There are other siblings as well. 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 Ring chromosome 22 can cause developmental delay, developmental regression, Dolichocephaly, gait ataxia, hypotonia, seizure, toenail dysplasia, among others. Last seen at acoustic neuroma clinic in 2015, MRI at that time with interval growth of meningiomas, specifically R cerebellar meningioma. Has SNUFF BLENDER shunt from hydrocephalus after a brain surgery. Care team wondering about repeating a brain MRI, to make sure the meningiomas haven't grown significantly. They note foot concerns: sometimes seems his feet are swollen and red after standing. Note his great toenails are very thick and large and seem to cause him discomfort. They also bleed easily. Wondering about OT and PT to help learn ways to keep him mobile. I also suggest [employer] to help adapt his ability to feed himself and communicate. He used to use a board with pictures to communicate. He is able to respond yes to questions and does follow commands. They would like his ears and eyes checked. He used to wear glasses, they are at his dad's house and they can retrieve them. He tugs at his ears sometimes. Recurrent UTIs - wondering about antibiotic suppressive therapy. We discussed the risks of this. I defer to urology on this issue. Offered home nursing referral to try to keep him home as much as possible as he is currently going to urology monthly for catheter changes but his sister declines for now. They note he seems anxious sometimes. Has a hard time leaving the house for appointments. Using ativan does help with this. He seems nervous around large groups of people. Wondering about daily medication to treat anxiety. Rash around hair follicles on neck and back. Occ intertrigo - using desitin and need a clotrimazole refill. FELIBERTO STARKS MD [address], [place], [address], [facility]. 11/07/2023 21:42:48 02/03/2024 text/html HPI Notes: Telev ist with David, caregiver Saranya and home health PT is there as well. 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 Ring chromosome 22 can cause developmental delay, developmental regression, Dolichocephaly, gait ataxia, hypotonia, seizure, toenail dysplasia, among others. Last seen at acoustic neuroma clinic in 2016, MRI at that time with interval growth of meningiomas, specifically R cerebellar meningioma. Has SNUFF BLENDER shunt from hydrocephalus after a brain surgery. OT/PT starting today. [employer] referral had been made before. PT will add RN to the order as well, I gave verbal ok for this. Foot concerns - podiatry referral scheduled in February. Sometimes seems his feet are swollen and red after standing. Note his great toenails are very thick and large and seem to cause him discomfort. They also bleed easily. Recurrent UTIs - on cephalexin right now for this. Managed by urology who do his catheter changes. Anxiety - Had a hard time leaving the house for appointments. Outbursts, fidgeting with fingers. Started on sertraline at his last appointment and this is much improved. Do not more of the fidgeting starting back again and Saranya is wondering about increasing the dose. Folliculitis - clindamycin has been very helpful for this, no further issues. Intertrigo - doing well with clotrimazole. Biggest new concern is cough. Had a fever and then congested cough, went to the [place] ED on Tuesday. Said he had bronchitis, doing nebs, cough medicine, claritin. Cough is not better. Almost croupy sounding. Saranya listened to his lungs and thought the lower lobes sounded abnormal. His dad is concerned for a skin lesion to his left cheek. Has been there a long time. Wants to make sure it isn't malignant. FELIBERTO STARKS MD [address], [place], [address], [facility]. 02/03/2024 15:40:37
--- OUTSIDE RECORDS SUMMARY | 2024-04-06 17:01 | XMS_ITS | Encounter Summary ---
[place] [address] Care Team Providers Care Body Recall Instructor Name Role Phone Dimas Lau MD Primary Care Provider Encounter Details Date Type Department Care Team (Late st Contact Info) Description 12/19/2015 12:49 PM [place] [address] Stefan Hatfield MD [facility] [place] [address] Alexsandra Van CRNA [facility] [place] [address] Anesthesia Record Procedure Summary Procedure Name Responsible Anesthesiologist Anesthesia Start Time Anesthesia Stop Time MRI WITH ANESTHESIA (WRVU *) (Brain) Stefan Hatfield MD 12/19/15 1249 12/19/15 1407 Events Date Time Event Comment 12/19/2015 1218 1249 AN Verify 1249 Start 1249 An Start Data 1304 Anesthesia Ready 1320 Quick Note Unable to get B P reading, cuff re-cycled. ETCO2 and pulse ox reading stable. Radial pulse present. Ephedrine given. Cuff changed with successful NIBP reading. 1358 an stop data 1402 Transport Transport to [facility] 1407 Recovery or ICU Handoff Giovanna ent care was transferred to the destination unit staff after review of the patient's medical history, current anesthetic/surgical status and plan, according to the Provider Handoff Checklist. 1407 Stop Meds Name Total Propofol 50 mg Propofol INF 448.31 mg ePHEDrine 10 mg lactated ringers infusion 1,000 mL 700 m L * Agents Name O2 * Blood No blood administrations on file. Lines, Drains, and Airways Type Details Placement Removal Supraglottic Oral Airway: 100 mm (5); Nasopharyngeal Size: 32 Fr; Inserted by: [facility] 01/06/15 1544 by Tarah Montes CRNA (RETIRED) Peripheral IV Line - Single Lumen 12/19/15; 1245; median vein right (underside of arm); [id number] catheter system; 22 gauge, 1 in length; intradermal injection, tolerated well, age-appropriate response, appears comfortable; 12/19/15; 1433 12/19/15 1245 by Sabina López RN 12/19/15 1433 by Colleen Sanchez RN documented in this encounter Social History Tobacco Use Types Packs/Day Years Used Date Smoking Tobacco: Never Alcohol Use Standard Drinks/Week Comments No 0 (1 standard drink = 0.6 oz pur e alcohol) Sex and Gender Information Value Date Recorded Sex Assigned at Not on file Gender Identity Not on file Sexual Orientation Not on file documented as of this encounter OR Notes * Anesthesia Postprocedure Evaluation - Stefan Hatfield MD - 12/19/2015 4:10 PM EDT [facility] [place] Department of Anesthesiology Post-procedure Note Patient: Hollis Ambriz Procedure Summary Date Anesthesia Start Anesthesia Stop Room / Location 12/19/15 7060 [id number] [facility] ADULT RADIOLOGY / [facility] GUILLERMINA Procedure Diagnosis Surgeon Responsible Provider MRI WITH ANESTHESIA (N/A Brain) (BILATERAL ACOUSTIC NEUROMAS; NF, BILATERAL ACOUSTIC NEUROMA, MULTIPLE MENINGIOMAS, EVALUATE FOR CHANGE; IAC PROTOCAL FOR SKULL BASE ) RESOURCE, ANESTHESIA-Stefan Zapien MD All Anesthesia Providers: Anesthesiologist: Stefan Hatfield MD PREPARATION CENTER COORDINATOR: Lit Bradley CRNA Last (1hr) Vitals: BP Temp Pulse Resp SpO2 Patient Location: PACU/SDP Level of Consciousness: Conscious but Sleepy Pain Management: Satisfactory Analgesia PONV: None Cardiovascular Status: At Baseline Respiratory Status: At Baseline Postoperative Fluid Status: Intravascular EUvolemia Possible Anesthetic Complications: NONE apparent at time of evaluation Final Primary Anesthesia Type: MAC (The anesthetic type performed was the same as planned.) Comments: Mental status appears to be at baseline Otherwise doing well I spoke with his guardian and she was happy with his anesthesia care STEFAN HATFIELD MD * Anesthesia Preprocedure Evaluation - Stefan Hatfield MD - 12/19/2015 12:15 PM EDT Pre-Anesthesia Evaluation for: Hollis Ambriz a 50 y.o. male. Procedure(s): MRI WITH ANESTHESIA Patient Active Problem List Diagnosis ??? Neurofibromatosis, type 2 (acoustic neurofibromatosis) No past medical history on file. Past Surgical History Procedure Laterality Date ??? Created by interface EXCISION BENIGN LESION, SCALP, NECK, 1.1 TO 2.0 CM, ENT Procedure Date: 12/13/2008 ??? Created by interface EXCISION BENIGN LESION, SCALP, NECK, 1.1 TO 2.0 CM, ENT Procedure Date: 12/13/2008 ??? Created by interface EXCISION BENIGN LESION, SCALP, NECK, OVER 4.0 CM, ENT Procedure Date: 12/13/2008 ??? Created by interface LAYER CLOSURE OF WOUND,SCALP,AXILLAE,TRUNK,2.6-7.5CM,ENT Procedure Date: 12/13/2008 ??? Created by interface REPAIR,WOUND,INTERMEDIATE,2.5CM OR LESS Procedure Date: 12/13/2008 ??? Unlisted mr procedure 11/28/2012 MRI WITH ANESTHESIA performed by Jair Anesthesia-Guillermina at [facility] ??? Unlisted mr procedure 02/25/2014 MRI WITH ANESTHESIA performed by Jair, Anesthesia-Guillermina at [facility] ??? Unlisted mr procedure N/A 01/06/2015 MRI WITH ANESTHESIA performed by JAIR, ANESTHESIA-GUILLERMINA at [facility] History Substance Use Topics ??? Smoking status: Never Smoker ??? Smokeless tobacco: Not on file ??? Alcohol Use: No History Drug Use No Allergies Allergen Reactions ??? Carbamazepine CIS - diarrhea ??? Haloperidol CIS - paradoxical agitation ??? Sulfa (Sulfonamide Antibiotics) CIS - Nausea/Vomiting Medications: MAR and/or home medications have been reviewed. Physical Exam: Filed Vitals: 12/19/15 1132 BP: 127/91 Pulse: 87 Temp: 36 ??C (96.8 ??F) Resp: 18 Body mass index is 25.05 kg/(m^2). Height: 170.2 cm (5' 7) Weight - Scale: 72.576 kg (160 lb) Airway Assessment: Patient does not open mouth to follow commands Recorded as a mp 2 in the past Cardiovascular Assessment: cardiovascular exam normal Pulmonary Assessment: pulmonary exam normal Dental Assessment: Comment: Overall poor dentician Misc Assessment: IV access: Peripheral line Anesthesia Plan: ASA 3 General, with a(n) intravenous induction Patient schedule for MRI to evaluate meningionmas, bilateral accoustic neuromas, evp operations shunt, neurofibromatoma Has screening MRI yearly Has done well with propofol mac in the past Mother reports he is less verbal this year, gave 2 mg of ativan at 0900, pneumonia 2 months ago butno recent URI symptoms Plan for propofol mac with GA back-up discussed All questions answered STEFAN HATFIELD MD Region - Other Informed Consent: Anesthetic plan and risks discussed with patient, legal guardian and mother. Plan discussed with PREPARATION CENTER COORDINATOR. PAT Staff Note documented in this encounter Plan of Treatment Not on file documented as of this encounter Visit Diagnoses Not on filedocumented in this encounter Administered Medications Inactive Administered Medications - up to 3 most recent administrations Medication Order MAR Action Action Date Dose Rate Site ePHEDrine 5 mg/mL multi-dose injection PRN, Starting on Tue12/19/15 at 1322, Until Tue12/19/15 at 1410, Anesthesia Intra-op, Routine Given 12/19/2015 1:22 PM EDT 10 mg propofol (DIPRIVAN) 10 mg/mL bolus injection (Anesthesia) PRN, Starting on Tue12/19/15 at 1259, Until Tue12/19/15 at 1410, Anesthesia Intra-op Given 12/19/2015 12:59 PM EDT 50 mg propofol (DIPRIVAN) infusion CONTINUOUS PRN, Starting on Tue12/19/15 at 1256, Until Tue12/19/15 at 1410, Anesthesia Intra-op, Routine Rate/Dose Change 12/19/2015 1:32 PM EDT 75 mcg/kg/min 32.7 mL/hr Rate/Dose Change 12/19/2015 1:19 PM EDT 100 mcg/kg/min 43. 6 mL/hr New Bag 12/19/2015 12:56 PM EDT 150 mcg/kg/min 65.3 mL/ hr documented in this encounter Care Teams Body Recall Instructor Relationship Specialty Start Date End Date Dimas Lau MD [address] [place] [address] PCP - General 06/30/10 documented as of this encounter
--- OUTSIDE RECORDS SUMMARY | 2024-04-06 17:01 | XMS_ITS | Encounter Summary ---
Author Organization [facility] [address] Care Team Providers Care Clinical Statistical Programmer Name Role Phone Dimas Lau MD Primary Care Provider Encounter Details Date Type Department Care Team (Latest Contact Info) Description 01/06/2015 1:53 PM EDT - 01/06/2015 7:27 PM EDT Hospital Encounter [place] [id number] RESOURCE, ANESTHESIA-NICHOL Kishor Candelario MD [facility] [address] [place] [address] Discharge Disposition: Home Social History Tobacco Use Types Packs/Day Years Used Date Smoking Tobacco: Never Alcohol Use Standard Drinks/Week Comments No 0 (1 standard drink = 0.6 oz pur e alcohol) Sex and Gender Information Value Date Recorded Sex Assigned at Not on file Gender Identity Not on file Sexual Orientation Not on file documented as of this encounter Last Filed Vital Signs Vital Sign Reading Time Taken Comments Blood Pressure 113/73 01/06/2015 7:08 PM EDT Pulse 60 01/06/2015 7:08 PM EDT Temperature 36.5 ??C (97.7 ??F) 01/06/2015 5 :58 PM EDT Respiratory Rate 16 01/06/2015 7:08 PM EDT Oxygen Saturation 96% 01/06/2015 7:0 8 PM EDT Inhaled Oxygen Concentration - - Weight 74.8 kg (165 lb) 01/06/2015 2:14 PM EDT at MD's office Height 170.2 cm (5' 7) 01/06/2015 2:14 PM EDT Body Mass Index 25.84 01/06/2015 2:14 PM EDT documented in this encounter Discharge Instructions * Discharge Instructions* Kishor Lala RN - 01/06/2015 6:35 PM EDT POST ANESTHESIA INSTRUCTIONS Go home, rest, use caution on stairs. Change positions slowly. Do not smoke if you are alone. Diet light to regular as tolerated today. If nausea occurs start with clear liquids and progress slowly. No driving, operating machinery, alcoholic beverages and no important decisions for 24 hours. Monitor IV site for signs and symptoms of infection: increasing redness, swelling, foul drainage, if occurs contact M.D. Patients who have had endotrachial tubes (this tube, used by anesthesia department, is passed down your throat after you are asleep, to ensure safe air passage during your operation). A sore throat is normal due to the tube. Cold liquids or soothing lozenges will help ease the discomfort. The generalized muscle aches are due to the medication given to you just before the tube is inserted. As the medication wears off, you may develop muscle soreness, which usually goes away in 12-24 hours. documented in this encounter Medications at Time of Discharge Medication Sig Dispensed Refills Start Date End Date acetaminophen (TYLENOL) 325 mg tablet Take 650 mg by mouth every 4 hours as needed. LORazepam (ATIVAN) 1 mg tablet 01/28/2010 docusate sodium (COLACE) 100 mg capsule 01/28/2010 mineral oil liquid 01/28/2010 documented as of this encounter Progress Notes * Chelsey Arrieta RN - 01/06/2015 8:39 PM EDT 1900-Went over discharge instructions with pt's mother and caregiver, understanding voiced. Copy ofinstructions given to them. Pt straight-cathed by mother, pt's baseline. Emptied bladder without difficulty. 1926-Pt escorted out of facility via wheelchair with pt's mother and caregiver. Pt awake and alert,VSS. Discharge instruction sheet with pt's mother. * Ricardo Wu RN - 01/06/2015 2:25 PM EDT Pt needs to be st. Cath and upon using bladder scanner he has only 88 cc in his bladder. documented in this encounter H&P Notes * Kishor Gillette MD - 01/06/2015 2:33 PM EDT Patient Name: Hollis Ambriz Patient Age: 49 y.o. Birthdate: 1965 Admit date: 01/06/2015 Attending Physician: Kishor Gillette MD No change in health since pre-MRI H and P done on 12/27/14. See anesthesia evaluation for heart and lung exam. documented in this encounter Plan of Treatment Not on file documented as of this encounter Procedures Procedure Name Priority Date/Time Associated Diagnosis Comments MRI WITH ANESTHESIA (WRVU *) 01/06/2015 10:50 PM EDT NUROFIBRMATOSIS MRI BRAIN WWO CONTRAST (GENERIC) Routine 01/06/2015 6:00 PM EDT documented in this encounter Results * MRI brain with/WO contrast (01/06/2015 6:00 PM EDT) Anatomical Region Laterality Modality Head Magnetic Resonan ce 01/06/2015 6:00 PM EDT Impressions 01/06/2015 8:33 PM EDT IMPRESSION: Slight interval increase in size of one of the extra-axial homogeneously enhancing masses within the right aspect of the posterior fossa as detailed above. Other enhancing dural masses show no interval change in size and only slight increase in size from the study of 2008. Bilateral enhancing IAC masses, larger on the right. These also show no interval change and only slight increase in size from the study of 2008 Narrative 01/06/2015 8:33 PM EDT EXAMINATION: MR BRAIN W/WO CONTRAST CLINICAL HISTORY: neurofibomatosis, follow up of known menigiomas and screening for new tumors TECHNIQUE: MRI of the brain was obtained both before and after the administration of 7 cc Gadavist. COMPARISON: MRI of brain of 02/25/2014 and studies dating as far back as 09/24/2008. FINDINGS: While the extra-axial homogeneously enhancing mass in the midline along the dorsal vermis is unchanged or even the study of 2008. The other extra-axial enhancing masses each show increased size from that earlier study; the size changes are very small no new intra-axial lesion is present.. When compared to the most recent prior study only one lesion shows evidence of interval enlargement; this is the extra-axial homogeneously enhancing lesion along the right aspect of the posterior fossa which has increased from 11 x 18 x 13 to 12 x 20 x 15 mm. The enhancing masses within each of the internal auditory canals, substantially larger on the right, are unchanged from the most recent study and are only slightly increased in size from the study of 2008 The craniofacial disproportion, consistent with microcephaly, is unchanged. There is mild diffuse cerebral atrophy without marked change. Ventricles and sulci show no change in size or configuration. There is no extra-axial collection or evidence of acute infarction Procedure Note Denis Clayton MD - 01/06/2015 EXAMINATION: MR BRAIN W/WO CONTRAST CLINICAL HISTORY: neurofibomatosis, follow up of known menigiomas andscreening for new tumors TECHNIQUE: MRI of the brain was obtained both before and after the administration of 7 cc Gadavist. COMPARISON: MRI of brain of 02/25/2014 and studies dating as far back as 09/24/2008. FINDINGS: While the extra-axial homogeneously enhancing mass in the midline alongthe dorsal vermis is unchanged or even the study of 2008. The otherextra-axial enhancing masses each show increased size from that earlier study; thesize changes are very small no new intra-axial lesion is present.. Whencompared to the most recent prior study only one lesion shows evidence of interval enlargement; this is the extra-axial homogeneously enhancing lesion alongthe right aspect of the posterior fossa which has increased from 11 x 18 x 13to 12 x 20 x 15 mm. The enhancing masses within each of the internal auditorycanals, substantially larger on the right, are unchanged from the most recentstudy and are only slightly increased in size from the study of 2008 The craniofacial disproportion, consistent with microcephaly, isunchanged. There is mild diffuse cerebral atrophy without marked change. Ventriclesand sulci show no change in size or configuration. There is no extra-axial collection or evidence of acute infarction IMPRESSION IMPRESSION: Slight interval increase in size of one of the extra-axial homogeneously enhancing masses within the right aspect of the posterior fossa asdetailed above. Other enhancing dural masses show no interval change in size and onlyslight increase in size from the study of 2008. Bilateral enhancing IAC masses, larger on the right. These also show nointerval change and only slight increase in size from the study of 2008 Dimas Lau MD IMG MRI ORDERABLES documented in this encounter Visit Diagnoses Not on filedocumented in this encounter Active and Recently Administered Medications Care Teams Clinical Statistical Programmer Relationship Specialty Start Date End Date Dimas Lau MD [address] [place] [address] PCP - General 06/30/10 documented as of this encounter
--- OUTSIDE RECORDS SUMMARY | 2024-04-06 17:01 | XMS_ITS | Encounter Summary ---
[place] [address] Care Team Providers Care Hearing Screener Name Role Phone Dimas Lau MD Primary Care Provider Encounter Details Date Type Department Care Team (Late st Contact Info) Description 02/23/2016 External Results [place] [address] Jane Berrios AUD [facility] [place] [address] Social History Tobacco Use Types Packs/Day Years Used Date Smoking Tobacco: Never Alcohol Use Standard Drinks/Week Comments No 0 (1 standard drink = 0.6 oz pur e alcohol) Sex and Gender Information Value Date Recorded Sex Assigned at Not on file Gender Identity Not on file Sexual Orientation Not on file documented as of this encounter Plan of Treatment Not on file documented as of this encounter Procedures Procedure Name Priority Date/Time Associated Diagnosis Comments AUDIOLOGY SCAN Routine 02/13/2016 documented in this encounter Results * Scan Doc: Audiology (02/13/2016) Jane FRAZIER MEDIA MGR SCAN EXT O RDR/RSLT documented in this encounter Visit Diagnoses Not on filedocumented in this encounter Care Teams Hearing Screener Relationship Specialty Start Date End Date Dimas Lau MD [address] [place] [address] PCP - General 06/30/10 documented as of this encounter
--- OUTSIDE RECORDS SUMMARY | 2024-04-06 17:01 | XMS_ITS | Encounter Summary ---
[place] [address] Care Team Providers Care Unit Trust Manager Name Role Phone Dimas Lau MD Primary Care Provider Encounter Details Date Type Department Care Team (Late st Contact Info) Description 11/28/2012 12:22 PM [place] [address] Tigist Mac MD [facility] [place] [address] [address] [facility] [place] [address] Anesthesia Record Procedure Summary Procedure Name Responsible Anesthesiologist Anesthesia Start Time Anesthesia Stop Time MRI WITH ANESTHESIA (WRVU *) (Brain) Tigist Mac MD 11/28/12 1222 11/28/12 1355 Events Date Time Event Comment 11/28/2012 1215 1222 Start 1237 AN Verify 1239 Quick Note 6L O2 via FM. 1245 An Start Data 1303 An Induction 1305 Quick Note Oral airway 90m m 1345 an stop data 1355 Stop Meds Name Total propofol 50 mg propofol INF 587.25 mg lactated ringers infusion 1,000 mL 0 mL * Agents Name O2 Auxiliary Flowmeter 1 * Blood No blood administrations on file. Lines, Drains, and Airways Type Details Placement Removal (RETIRED) Peripheral IV Line - Single Lumen 11/28/12; 1149; 11/28/12; 1519 11/28/12 1149 by Masood Hamilton RN 11/28/12 1519 by Kishor Maya RN documented in this encounter Social History Tobacco Use Types Packs/Day Years Used Date Smoking Tobacco: Never Assessed Sex and Gender Information Value Date Recorded Sex Assigned at Not on file Gender Identity Not on file Sexual Orientation Not on file documented as of this encounter OR Notes * Anesthesia Postprocedure Evaluation - Tigist Mac MD - 11/28/2012 2:39 PM EDT Patient: Hollis Ambriz Procedure(s) Performed: Procedure(s): MRI WITH ANESTHESIA Actual Anesthetic: general Patient location: PACU Post-op pain: Adequate analgesia Post-op nausea: no nausea or vomiting Last Vitals: Filed Vitals: 11/28/12 1430 BP: 114/78 Pulse: 67 Temp: Resp: 18 Post-op cardiovascular and respiratory status: is stable Level of consciousness: awake Complications: no apparent complications Fluid Status: normal * Anesthesia Preprocedure Evaluation - Tigist Mac MD - 11/27/2012 2:20 PM EDT Today I evaluated Hollis Ambriz a 47 y.o. male. Procedure(s): MRI WITH ANESTHESIA Patient Active Problem List Diagnoses ??? Neurofibromatosis, type 2 (acoustic neurofibromatosis) No past medical history on file. Past Surgical History Procedure Date ??? Created by interface EXCISION BENIGN [...] interface REPAIR,WOUND,INTERMEDIATE,2.5CM OR LESS Procedure Date: 12/13/2008 History Substance Use Topics ??? Smoking status: Not on file ??? Smokeless tobacco: Not on file ??? Alcohol Use: Not on file Allergies Allergen Reactions ??? Carbamazepine CIS - diarrhea ??? Haloperidol CIS - paradoxical agitation ??? Sulfa (Sulfonamide Antibiotics) CIS - Nausea/Vomiting Medications: MAR and/or home medications have been reviewed. Physical Exam: There were no vitals filed for this visit. There is no height or weight on file to calculate BMI. Airway Assessment: Pt non-cooperative for airway exam. 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 Recurrent UTI, finished antibiotic course started 11/09/2012. Neurogenic bladder with need for daily straight caths. Region - Other Informed Consent: Anesthetic plan and risks discussed with mother and patient. Plan discussed with [RIVERA Misc. Assessment: 2008 GETA Mac 3, Gr 2 view No problems with GA. Pt failed nurse conscious sedation for MRI last month. documented in this encounter Plan of Treatment Not on file documented as of this encounter Visit Diagnoses Not on filedocumented in this encounter Administered Medications Active Administered Medications - up to 3 most recent administrations Medication Order MAR Action Action Date Dose Rate Site propofol (DIPRIVAN) 10 mg/mL bolus injection (Anesthesia) PRN, Starting on Tue11/28/12 at 1303, Until Discontinued, Anesthesia Intra-op Given 11/28/2012 1:03 PM EDT 50 mg propofol (DIPRIVAN) infusion CONTINUOUS PRN, Starting on Tue11/28/12 at 1301, Until Discontinued, Anesthesia Intra-op, Routine Rate/Dose Change 11/28/2012 1:40 PM EDT 150 mcg/kg/min 65.3 mL/hr New Bag 11/28/2012 1:01 PM EDT 150 mcg/kg/min 65.3 mL/h r Inactive Administered Medications - up to 3 most recent administrations Medication Order MAR Action Action Date Dose Rate Site lactated ringers infusion 1,000 mL 1,000 mL, at 100 mL/hr, Intravenous, CONTINUOUS, Starting on Tue11/28/12 at 1130, Until Tue11/28/12 at 1748, Day of Surgery (Day of Procedure) New Bag 11/28/2012 12:41 PM EDT mL New Bag 11/28/2012 11:30 AM EDT 1,000 mLs 100 mL/hr documented in this encounter Care Teams Unit Trust Manager Relationship Specialty Start Date End Date Dimas Lau MD [address] [place] [address] PCP - General 06/30/10 documented as of this encounter
--- OUTSIDE RECORDS SUMMARY | 2024-04-06 17:01 | XMS_ITS | Encounter Summary ---
Author Organization [facility] Address [facility] [place] [address] Care Team Providers Care Fuel Technician Name Role Phone Dimas Lau MD Primary Care Provider [phone] Encounter Details Date Type Department Care Team (Latest Contact Info) Description 02/17/2012 12:21 PM EDT - 02/17/2012 11:59 PM EDT Hospital Encounter MRI at [facility] [place] [address] CLINIC, Dimas Vance MD [address] [place] [address] Discharge Disposition: Home Social History Tobacco Use Types Packs/Day Years Used Date Smoking Tobacco: Never Assessed Sex and Gender Information Value Date Recorded Sex Assigned at Not on file Gender Identity Not on file Sexual Orientation Not on file documented as of this encounter Last Filed Vital Signs Vital Sign Reading Time Taken Comments Blood Pressure 132/84 02/17/2012 12:00 PM EDT Pulse 72 02/17/2012 12:00 PM EDT Temperature 35.5 ??C (95.9 ??F) 02/17/2012 12:00 PM E DT Respiratory Rate 18 02/17/2012 12:00 PM EDT Oxygen Saturation 95% 02/17/2012 12:00 PM EDT Inhaled Oxygen Concentration - - Weight 72.6 kg (160 lb) 02/17/2012 6:19 AM EDT Height - - Body Mass Index - - documented in this encounter Discharge Instructions * Discharge Instructions* Minerva Diaz, RN - 02/17/2012 3:31 PM EDT 1. You may have received medication before and/or during your procedure, which affects judgment andreaction time. 2. Do not drive, operate machinery, drink alchololic beverages, or make important decisions for 24 hours. 3. Be careful on stairs, as you may be unsteady on your feet. 4. You may eat a regular diet as tolerated. 5. Do not smoke if you are alone. 6. IV site- slight redness or tenderness is normal, you can use warm compresses. If tenderness and redness increases or foul drainage occours, please contact your M.D. documented in this encounter Medications at Time of Discharge Medication Sig Dispensed Refills Start Date End Date LORazepam (ATIVAN) 1 mg tablet 01/28/2010 docusate sodium (COLACE) 100 mg capsule 01/28/2010 mineral oil liquid 01/28/2010 propoxyphene-acetaminophen (DARVOCET-N 100) 100-650 mg per tablet 1 Tablet(s), PO, Q6H PRN 01/28/2010 10/31/2012 documented as of this encounter Progress Notes * Minerva Diaz RN - 02/14/2012 11:10 AM EDT [facility] NURSING DATABASE Name: YURIY ALCANTAR Date of : 1965 AGE 46 y.o. Address: [address] [place] [address] (home) Mobile: No relevant phone numbers on file. Referring Provider: Dimas Lau Reason for Visit: MRI with IV sedation Allergies Allergen Reactions ??? Carbamazepine CIS - diarrhea ??? Sulfa (Sulfonamide Antibiotics) CIS - Nausea/Vomiting ??? Haloperidol CIS - paradoxical agitation Pertinent PMH: There is no problem list on file for this patient. Pertinent PSH: Past Surgical History Procedure Date ??? Created [...] interface REPAIR,WOUND,INTERMEDIATE,2.5CM OR LESS Procedure Date: 12/13/2008 Date/Procedure Comments: 12/24/05 MRI with IV sedation Versed 4 mg. Mom in room with pt. 03/10/07 MRI with IV sedation Versed 3, fentanyl 150, mom in room with pt 01/19/08 MRI with IV sedation Versed 4.5, fentanyl 175 08/24/08 MRI with IV sedation Versed 1.5, fentanyl 75, benadryl 25 01/30/10 MRI with IV sedation Versed 3, fentanyl 150 12/25/10 MRI brain/IV sedation Versed 5mg/Fentanyl 250mcg IV 02/17/12 MRI of brain with IV sedation, Patient would not open his mouth for MD Unable to get a Malimpatti score. Cleared for sedation Versed 2mg Fentanyl 75 mcg IV Laboratory Results: No results found for this basename: inr No results found for this basename: PT, PTT No results found for this basename: BUN No results found for this basename: creatinine No results found for this basename: k No results found for this basename: PLATELET Medications: Prior to Admission medications Medication Sig Start Date End Date Taking? Authorizing Provider LORazepam (ATIVAN) 1 mg tablet 01/28/10 docusate sodium (COLACE) 100 mg capsule 01/28/10 mineral oil liquid 01/28/10 propoxyphene-acetaminophen (DARVOCET-N 100) 100-650 mg per tablet 1 Tablet(s), PO, Q6H PRN 01/28/10 documented in this encounter Procedure Notes * Mark Sheth MD - 02/17/2012 1:01 PM EDT PRE-PROCEDURE IV SEDATION for MR STUDY NOTE Date of : 1965 Age: 46 y.o. PCP: DIMAS LAU MD Referring Physician (if different): Indication: Sedation for MR study Pertinent Past Medical/Surgical History: There is no problem list on file for this patient. Past Surgical History Procedure Date ??? Created [...] interface REPAIR,WOUND,INTERMEDIATE,2.5CM OR LESS Procedure Date: 12/13/2008 Allergies Allergen Reactions ??? Carbamazepine CIS - diarrhea ??? Sulfa (Sulfonamide Antibiotics) CIS - Nausea/Vomiting ??? Haloperidol CIS - paradoxical agitation Current outpatient prescriptions ordered prior to encounter Medication Sig Dispense Refill ??? LORazepam (ATIVAN) 1 mg tablet ??? docusate sodium (COLACE) 100 mg capsule ??? mineral oil liquid ??? propoxyphene-acetaminophen (DARVOCET-N 100) 100-650 mg per tablet 1 Tablet(s), PO, Q6H PRN No current facility-administered medications on file prior to encounter. Pertinent ROS: as per HPI Pertinent Family History: non contributory Social History: n/a Labs: No results found for this basename: wbc, anc, hct, platelet, inr, bun, cr, gfr No results found for this basename: alkphos, ast, albumin, bilidir, bilitot, alt, Addendum: Risks (including hemorrhage, infection, allergic reaction, occlusion, respiratory depression), and benefits discussed and patient consented to the procedure. Physical Exam Heart: RRR Lungs: clear ASA Classification: ASA 2 - Patient with mild systemic disease with no functional limitations Mallampati Classification: Not able to obtain secondary to patient inability to undertand commands Assessment / Plan: MR study with IV sedation Patient cleared to receive sedation documented in this encounter Miscellaneous Notes * Miscellaneous - Provider, Scanning - 03/14/2012 10:14 AM EDT * Miscellaneous - Provider, Scanning - 03/02/2012 9:52 AM EDT documented in this encounter Plan of Treatment Not on file documented as of this encounter Procedures Procedure Name Priority Date/Time Associated Diagnosis Comments MRI BRAIN WWO CONTRAST (GENERIC) Routine 02/17/2012 3:13 PM EDT documented in this encounter Results * MRI BRAIN WITH/WO CONTRAST (02/17/2012 3:13 PM EDT) Anatomical Region Laterality Modality Head Magnetic Resonan ce 02/17/2012 3:13 PM EDT Narrative 02/17/2012 5:20 PM EDT Examination MR BRAIN W/WO CONTRAST Clinical History NEUROFIBROMATOSIS WITH MENGINIOMA/ACOUSTIC NEUROMA Comparison 12/25/2010. Technique Routine brain MRI with and without contrast. ??15 mL of Magnevist administered. Findings Postsurgical changes in the posterior fossa with several extra-axial enhancing lesions are not significantly changed. ??The largest lesion in the posterior midline measures approximately 1.4 cm. ??Abnormal enhancement within the right IAC measures approximately 1.2 cm. ??This is stable. Signal alteration within the right cerebellar hemisphere is stable and likely reflects post treatment change. Volume loss within the right hemisphere is noted with dilatation of the right lateral ventricle, especially the occipital horn. Several smaller extra-axial lesions about the falx, torcula and tentorium are unchanged. Impression Stable appearance of the meningiomas and acoustic neuroma. Procedure Note Quinn Garcia MD - 02/17/2012 Examination MR BRAIN W/WO CONTRAST Clinical History NEUROFIBROMATOSIS WITH MENGINIOMA/ACOUSTIC NEUROMA Comparison 12/25/2010. Technique Routine brain MRI with and without contrast. 15 mL of Magnevistadministered. Findings Postsurgical changes in the posterior fossa with several extra-axialenhancing lesions are not significantly changed. The largest lesion in theposterior midline measures approximately 1.4 cm. Abnormal enhancement within theright IAC measures approximately 1.2 cm. This is stable. Signal alteration within the right cerebellar hemisphere is stable andlikely reflects post treatment change. Volume loss within the right hemisphere is noted with dilatation of theright lateral ventricle, especially the occipital horn. Several smallerextra-axial lesions about the falx, torcula and tentorium are unchanged. Impression Stable appearance of the meningiomas and acoustic neuroma. Dimas Lau MD IM MRI ORDERABLES documented in this encounter Visit Diagnoses Not on filedocumented in this encounter Administered Medications Inactive Administered Medications - up to 3 most recent administrations Medication Order MAR Action Action Date Dose Rate Site fentaNYL 50mcg/mL injection 25-50 mcg, Intravenous, EVERY 5 MIN PRN, Starting on Jennifer 7 at 1322, Until Jennifer 7 at 1531, Pain, per protocol, Angio/IR (Intra-Procedure), Routine Given 02/17/2012 3:23 PM EDT 75 mcg gadopentetate dimeglumine (MAGNEVIST) injection 15 mL 15 mL (0.2 mL/kg/dose ? 72.6 kg), Intravenous, ONCE PRN, Per Protocol, Starting on Jennifer 02/17/12 at 0619, 1 dose, Until Jennifer 02/17/12 at 1457 Given 02/17/2012 2:57 PM EDT 15 mLs Right Arm midazolam (VERSED) injection 1-2 mg 1-2 mg, Intravenous, EVERY 5 MIN PRN, Starting on Jennifer 7 at 1322, Until Jennifer 7 at 1531, Sleep, per protocol, Angio/IR (Intra-Procedure), Routine Given 02/17/2012 3:24 PM EDT 2 mg documented in this encounter Care Teams Fuel Technician Relationship Specialty Start Date End Date Dimas Lau MD [address] [place] [address] PCP - General 06/30/10 documented as of this encounter
--- OUTSIDE RECORDS SUMMARY | 2024-04-06 17:01 | XMS_ITS | Encounter Summary ---
[place] [address] Care Team Providers Care Motor Rebuilder Name Role Phone Dimas Lau MD Primary Care Provider Encounter Details Date Type Department Care Team (Late st Contact Info) Description 01/06/2015 2:50 PM EDT - 01/06/2015 4:50 [place] [id number] RESOURCE, ANESTHESIA-NICHOL None MRI WITH ANESTHESIA (WRVU *) Social History Tobacco Use Types Packs/Day Years [...] Arrieta RN - 01/06/2015 8:39 PM EDT 1899-Went over discharge instructions with pt's mother and [...] Active and Recently Administered Medications Care Teams Motor Rebuilder Relationship Specialty Start Date End Date Dimas Lau MD [address] [place] [address] PCP - General 06/30/10 documented as of this encounter
--- OUTSIDE RECORDS SUMMARY | 2024-04-06 17:01 | XMS_ITS | Encounter Summary ---
[place] [address] Care Team Providers Care Hyperion Essbase Developer Name Role Phone Dimas Lau MD Primary Care Provider [phone] 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 * Diagnostic Test (Routine) - Closed Specialty Diagnoses / Procedures Referred By Contac t Referred To Contact Radiology Diagnoses Loss of balance Procedures MRI Total Spine wwo Contrast Dimas Lau MD [address] [place] [address] [place] [address] Referral ID Status Reason Start Date Expiration Date V isits Requested Visits Authorized [id number] Closed Specialty Service Requested 02/15/2018 02/15/2019 1 1 * Diagnostic Test (Routine) - Specialty Diagnoses / Procedures Referred By Contac t Referred To Contact Radiology Diagnoses Loss of balance Procedures MRI Brain wwo Contrast (Generic) Dimas Lau MD [address] [place] [address] [place] [address] Referral ID Status Reason Start Date Expiration Date Visits Requested Visits Authorized [id number] Specialty Service Requested 02/15/2018 02/15/2019 1 1 Reason for Visit * Diagnostic Test (Routine) - Closed Specialty Diagnoses / Procedures Referred By Contac t Referred To Contact Radiology Diagnoses Loss of balance Procedures MRI Total Spine wwo Contrast Dimas Lau MD [address] [place] [id number] [facility] [address] Referral ID Status Reason Start Date Expiration Date V isits Requested Visits Authorized [id number] Closed Specialty Service Requested 02/15/2018 02/15/2019 1 1 Encounter Details Date Type Department Care Team (Latest Contact Info) Description 04/26/2018 12:30 PM EDT - 04/26/2018 11:59 PM EDT Hospital [place] [address] Dimas Lau MD [address] [place] [address] Loss of balance Discharge Disposition: Home Social History Tobacco Use Types Packs/Day Years Used Date Smoking Tobacco: Never Alcohol Use Standard Drinks/Week Comments No 0 (1 standard drink = 0.6 oz pur e alcohol) Sex and Gender Information Value Date Recorded Sex Assigned at Not on file Gender Identity Not on file Sexual Orientation Not on file documented as of this encounter Medications at Time of Discharge Medication Sig Dispensed Refills Start Date End Date polyethylene glycol (MIRALAX) 17 gram Powder in Packet Take 17 g by mouth daily. acetaminophen (TYLENOL) 325 mg tablet Take 650 mg by mouth every 4 hours as needed. LORazepam (ATIVAN) 1 mg tablet 01/28/2010 docusate sodium (COLACE) 100 mg capsule 01/28/2010 mineral oil liquid 01/28/2010 documented as of this encounter Plan of Treatment Not on file documented as of this encounter Procedures Procedure Name Priority Date/Time Associated Diagnosis Comments MRI TOTAL SPINE WITH/WO CONTRAST Routine 04/26/2018 4:20 PM EDT Loss of balance MRI BRAIN WWO CONTRAST (GENERIC) Routine 04/26/2018 4:20 PM EDT Loss of balance documented in this encounter Results * MRI Total Spine wwo Contrast (04/26/2018 4:20 PM EDT) Anatomical Region Laterality Modality C-spine, T-spine, L-spine Magnet ic Resonance Impressions 04/26/2018 5:38 PM EDT Similar appearance of multiple presumed meningioma as and right acoustic neuroma. Multiple small nodular areas of enhancement along the use of the cauda equina. These may represent small schwannoma. Narrative 04/26/2018 5:38 PM EDT EXAMINATION: MRI BRAIN WWO CONTRAST (GENERIC), MRI TOTAL SPINE WWO CONTRAST CLINICAL HISTORY: acousitic/vestibular system. neurofibromatosis 2, loss of balance, intellectual disability, meningioma TECHNIQUE: MR the brain with attention to the posterior fossa performed prior to and following intravenous administration of 14 L dotarem. MR of the cervical, thoracic, lumbar spine performed prior to and following intravenous administration of 14 mL dotarem COMPARISON: MR 12/23/2016, 11/19/2015, 01/06/2015 FINDINGS: MR brain: There are multiple extra-axial enhancing masses in the posterior fossa, largest is posteriorly on the right. The lesions do not appear significantly changed in size compared to the 2016, or 2015 exams. There is a mass in the right IAC, unchanged. There is enhancement at the lateral aspect of the left IAC without change. No new mass is identified. Small extra-axial mass along the falx on the right is unchanged. Extra-axial mass near the vertex on the left is unchanged. Right posterior approach ventricular catheter is unchanged. The ventricles are unchanged in size. There is no new mass effect or shift. Major intracranial flow voids remain normal. Cervical spine: Cervical alignment is normal. There is no aggressive marrow lesion. There is no abnormal enhancement. No abnormal cord signal. Thoracic spine: Thoracic alignment is unremarkable. Thoracic cord signal is normal. There are several areas of CSF pulsation artifact on axial T1 images. No extra-axial enhancing mass is identified. Lumbar spine: Lumbar alignment is normal. There are multiple tiny areas of abnormal enhancement along the nerve roots of the cauda equina. The largest lesion is at the L1-L2 disc space. There are multiple tiny areas along the nerve roots. Conus remains normally positioned. There is a fatty filum terminale. Procedure Note Giorgio Mayes MD - 04/26/2018 EXAMINATION: MRI BRAIN WWO CONTRAST (GENERIC), MRI TOTAL SPINE WWOCONTRAST CLINICAL HISTORY: acousitic/vestibular system. neurofibromatosis 2, lossof balance, intellectual disability, meningioma TECHNIQUE: MR the brain with attention to the posterior fossa performedprior to and following intravenous administration of 14 L dotarem. MR of thecervical, thoracic, lumbar spine performed prior to and following intravenous administration of 14 mL dotarem COMPARISON: MR 12/23/2016, 11/19/2015, 01/06/2015 FINDINGS: MR brain: There are multiple extra-axial enhancing masses in theposterior fossa, largest is posteriorly on the right. The lesions do not appear significantly changed in size compared to the 2016, or 2015 exams. Thereis a mass in the right IAC, unchanged. There is enhancement at the lateralaspect of the left IAC without change. No new mass is identified. Small extra-axialmass along the falx on the right is unchanged. Extra-axial mass near the vertexon the left is unchanged. Right posterior approach ventricular catheter is unchanged. The ventricles are unchanged in size. There is no new masseffect or shift. Major intracranial flow voids remain normal. Cervical spine: Cervical alignment is normal. There is no aggressivemarrow lesion. There is no abnormal enhancement. No abnormal cord signal. Thoracic spine: Thoracic alignment is unremarkable. Thoracic cord signalis normal. There are several areas of CSF pulsation artifact on axial [id number]. No extra-axial enhancing mass is identified. Lumbar spine: Lumbar alignment is normal. There are multiple tiny areasof abnormal enhancement along the nerve roots of the cauda equina. Thelargest lesion is at the L1-L2 disc space. There are multiple tiny areas along thenerve roots. Conus remains normally positioned. There is a fatty filumterminale. IMPRESSION Similar appearance of multiple presumed meningioma as and right acoustic neuroma. Multiple small nodular areas of enhancement along the use of the caudaequina. These may represent small schwannoma. Dimas Lau MD [facility] MRI ORDERABLES * MRI Brain wwo Contrast (Generic) (04/26/2018 4:20 PM EDT) Anatomical Region Laterality Modality Head Magnetic Resonan ce Impressions 04/26/2018 5:38 PM EDT Similar appearance of multiple presumed meningioma as and right acoustic neuroma. Multiple small nodular areas of enhancement along the use of the cauda equina. These may represent small schwannoma. Narrative 04/26/2018 5:38 PM EDT EXAMINATION: MRI BRAIN WWO CONTRAST (GENERIC), MRI TOTAL SPINE WWO CONTRAST CLINICAL HISTORY: acousitic/vestibular system. neurofibromatosis 2, loss of balance, intellectual disability, meningioma TECHNIQUE: MR the brain with attention to the posterior fossa performed prior to and following intravenous administration of 14 L dotarem. MR of the cervical, thoracic, lumbar spine performed prior to and following intravenous administration of 14 mL dotarem COMPARISON: MR 12/23/2016, 11/19/2015, 01/06/2015 FINDINGS: MR brain: There are multiple extra-axial enhancing masses in the posterior fossa, largest is posteriorly on the right. The lesions do not appear significantly changed in size compared to the 2016, or 2015 exams. There is a mass in the right IAC, unchanged. There is enhancement at the lateral aspect of the left IAC without change. No new mass is identified. Small extra-axial mass along the falx on the right is unchanged. Extra-axial mass near the vertex on the left is unchanged. Right posterior approach ventricular catheter is unchanged. The ventricles are unchanged in size. There is no new mass effect or shift. Major intracranial flow voids remain normal. Cervical spine: Cervical alignment is normal. There is no aggressive marrow lesion. There is no abnormal enhancement. No abnormal cord signal. Thoracic spine: Thoracic alignment is unremarkable. Thoracic cord signal is normal. There are several areas of CSF pulsation artifact on axial T1 images. No extra-axial enhancing mass is identified. Lumbar spine: Lumbar alignment is normal. There are multiple tiny areas of abnormal enhancement along the nerve roots of the cauda equina. The largest lesion is at the L1-L2 disc space. There are multiple tiny areas along the nerve roots. Conus remains normally positioned. There is a fatty filum terminale. Procedure Note Giorgio Mayes MD - 04/26/2018 EXAMINATION: MRI BRAIN WWO CONTRAST (GENERIC), MRI TOTAL SPINE WWOCONTRAST CLINICAL HISTORY: acousitic/vestibular system. neurofibromatosis 2, lossof balance, intellectual disability, meningioma TECHNIQUE: MR the brain with attention to the posterior fossa performedprior to and following intravenous administration of 14 L dotarem. MR of thecervical, thoracic, lumbar spine performed prior to and following intravenous administration of 14 mL dotarem COMPARISON: MR 12/23/2016, 11/19/2015, 01/06/2015 FINDINGS: MR brain: There are multiple extra-axial enhancing masses in theposterior fossa, largest is posteriorly on the right. The lesions do not appear significantly changed in size compared to the 2016, or 2015 exams. Thereis a mass in the right IAC, unchanged. There is enhancement at the lateralaspect of the left IAC without change. No new mass is identified. Small extra-axialmass along the falx on the right is unchanged. Extra-axial mass near the vertexon the left is unchanged. Right posterior approach ventricular catheter is unchanged. The ventricles are unchanged in size. There is no new masseffect or shift. Major intracranial flow voids remain normal. Cervical spine: Cervical alignment is normal. There is no aggressivemarrow lesion. There is no abnormal enhancement. No abnormal cord signal. Thoracic spine: Thoracic alignment is unremarkable. Thoracic cord signalis normal. There are several areas of CSF pulsation artifact on axial D4sofpcy. No extra-axial enhancing mass is identified. Lumbar spine: Lumbar alignment is normal. There are multiple tiny areasof abnormal enhancement along the nerve roots of the cauda equina. Thelargest lesion is at the L1-L2 disc space. There are multiple tiny areas along thenerve roots. Conus remains normally positioned. There is a fatty filumterminale. IMPRESSION Similar appearance of multiple presumed meningioma as and right acoustic neuroma. Multiple small nodular areas of enhancement along the use of the caudaequina. These may represent small schwannoma. Dimas Lau MD [facility] MRI ORDERABLES documented in this encounter Visit Diagnoses Diagnosis Loss of balance Other symptoms involving nervous and musculoskeletal systems documented in this encounter Administered Medications Inactive Administered Medications - up to 3 most recent administrations Medication Order MAR Action Action Date Dose Rate Site gadoterate meglumine (DOTAREM) 0.5 mmol/mL (376.9 mg/mL) injection 0-20 mL/kg 0-20 mL/kg/dose, Intravenous, ONCE PRN, 1 dose, Starting on Tue04/26/18 at 1317, Until Tue04/26/18 at 1512, Per Protocol, Radiology Contrast, Routine Given 04/26/2018 3:12 PM EDT 14 mLs documented in this encounter Care Teams Hyperion Essbase Developer Relationship Specialty Start Date End Date Dimas Lau MD [address] [place] [address] PCP - General 06/30/10 documented as of this encounter
--- OUTSIDE RECORDS SUMMARY | 2024-04-06 17:01 | XMS_ITS | Encounter Summary ---
[place] [address] Care Team Providers Care Wool Hat Hydraulicker Name Role Phone Dimas Lau MD Primary Care Provider [phone] Encounter Details Date Type Department Care Team (Late st Contact Info) Description 04/26/2018 12:30 PM EDT - 04/26/2018 3:30 [place] [phone] RESOURCE, ANESTHESIA-NICHOL None MRI WITH ANESTHESIA (WRVU [...] Sign Reading Time Taken Comments Blood Pressure 98/59 04/26/2018 5:37 PM EDT Pulse 65 04/26/2018 11:53 AM EDT Temperature 36.5 ??C (97.7 ??F) 04/26/2018 4:25 PM ED T Respiratory Rate 18 04/26/2018 5:30 PM EDT Oxygen Saturation 93% 04/26/2018 5:37 PM EDT Inhaled Oxygen Concentration - - Weight 72.1 kg (159 lb) 04/26/2018 11:53 AM EDT Height 170.2 cm (5' 7) 04/26/2018 11:53 AM EDT Body Mass Index 24.9 04/26/2018 11:53 AM EDT documented in this encounter Medications at Time [...] as of this encounter Progress Notes * Emma Leonard RN - 04/26/2018 5:30 PM EDT Pt non verbal at baseline. Per mom and caregiver, pt returning to baseline level of alertness at 1715. VSS, repositioned for improved lung expansion which resolved shallow tachypneic breathing pattern. AVS reviewed with mother and caregiver, all questions answered. documented in this encounter Plan of Treatment Not on file documented as of this encounter Procedures Procedure Name Priority Date/Time Associated Diagnosis Comments MRI WITH ANESTHESIA (WRVU *) 04/26/2018 8:30 PM EDT NEUROFIBROMATOSIS documented in this encounter Visit Diagnoses Not on filedocumented in this encounter Active and Recently Administered Medications Times are shown in EDT. Continuous Medication Order 04/24/2018 04/25/2018 04/26/2018 lactated Ringers infusion 1,000 mL (CANCELED) 1,000 mL, at 100 mL/hr, Intravenous, CONTINUOUS, Starting on Tue04/26/18 at 1300, Until Tue04/26/18 at 1750, Day of Surgery (Day of Procedure) 1300 (New Bag - Prov ider: Brittney Saleem CRNA)1512 (Anesthesia Volume Adjustment - Provider: Brittney Saleem CRNA)1629 (Anesthesia Volume Adjustment - Provider: Brittney Saleem CRNA) documented in this encounter Care Teams Wool Hat Hydraulicker Relationship Specialty Start Date End Date Dimas Lua MD [address] [place] [address] PCP - General 06/30/10 documented as of this encounter
--- OUTSIDE RECORDS SUMMARY | 2024-04-06 17:01 | XMS_ITS | Encounter Summary ---
Author Organization [facility] [place] [address] Care Team Providers Care Cord Tire Builder Name Role Phone Dimas Lau MD Primary Care Provider Encounter Details Date Type Department Care Team (Late st Contact Info) Description 01/06/2015 3:05 PM [place] [phone] Kishor Gillette MD [facility] [place] [address] Anesthesia Record Procedure Summary Procedure Name Responsible Anesthesiologist Anesthesia Start Time Anesthesia Stop Time MRI WITH ANESTHESIA (WRVU *) (Spine Total) Kishor Gillette MD 01/06/15 1505 01/06/15 1805 Events Date Time Event Comment 01/06/2015 1432 1505 Start 1512 AN Verify 1512 An Start Data 1528 An Induction 1538 Anesthesia Ready 1547 Quick Note Scanner not wor freda. Moved pt to different scanner. Stable throughout 1608 Procedure Start 1643 Break/Relief In Kishor oconnor MD 1700 Break/Relief Out 1745 an stop data 1805 Stop Meds Name Total Midazolam 2 mg Propofol 30 mg Propofol INF 916.3 mg Lactated Ringers 500 mL * Agents Name O2 * Blood No blood administrations on file. Lines, Drains, and Airways Type Details Placement Removal Supraglottic Oral Airway: 100 mm (5); Nasopharyngeal Size: 32 Fr; Inserted by: [facility] 01/06/15 1544 by Tarah Montes CRNA (RETIRED) Peripheral IV Line - Single Lumen 01/06/15; median vein left (underside of arm); [id number]-[id number]-[id number] catheter system; 22 gauge, 1 in length; distraction, intradermal injection, tolerated well, appears comfortable; 01/06/15; 1914 (cannula intact, gauze applied) 01/06/15 0000 by Ashley Hall RN 01/06/151914 by Chelsey Arrieta RN (RETIRED) Peripheral IV Line - Single Lumen 01/06/15; 1510; metacarpal vein left (top of hand); bzqm-pzf-cpisyl catheter system; 18 gauge; [facility]; 01/06/15; 1914 (cannula intact, gauze applied) 01/06/15 1510 by Tarah Montes CRNA 01/06/151914 by Chelsey Arrieta RN documented in this encounter Social History [...] OR Notes * Anesthesia Postprocedure Evaluation - Kishor Gillette MD - 01/07/2015 9:59 AM EDT Patient: Hollis Ambriz Procedure(s) Performed: Procedure(s): MRI WITH ANESTHESIA Actual Anesthetic: general Patient location: PACU Post-op pain: Adequate analgesia Post-op nausea: no nausea or vomiting Last Vitals: Filed Vitals: 01/06/151907 BP: 113/73 Pulse: 60 Temp: Resp: 16 Post-op cardiovascular and respiratory status: Some initial hypotension which improved. Level of consciousness: sleeping Complications: no apparent complications and tolerated the procedure well Fluid Status: normal * Anesthesia Preprocedure Evaluation - Kishor Gillette MD - 01/06/2015 2:32 PM EDT Pre-Anesthesia Evaluation for: Hollis Ambriz a 49 y.o. male. Procedure(s): MRI WITH ANESTHESIA Patient [...] procedure 11/28/2012 MRI WITH ANESTHESIA performed by Geetha Morales at [facility] ??? Unlisted mr procedure 02/25/2014 MRI WITH ANESTHESIA performed by Geetha Morales at [facility] History Substance Use Topics ??? Smoking status: Never Smoker ??? Smokeless tobacco: Not on file ??? Alcohol Use: No History Drug Use No Allergies Allergen Reactions ??? Carbamazepine CIS - diarrhea ??? Haloperidol CIS - paradoxical agitation ??? Sulfa (Sulfonamide Antibiotics) CIS - Nausea/Vomiting Medications: MAR and/or home medications have been reviewed. Physical Exam: Filed Vitals: 01/06/15 1414 BP: 125/88 Pulse: 69 Temp: 36.3 ??C (97.3 ??F) Resp: 18 Body mass index is 25.84 kg/(m^2). Height: 170.2 cm (5' 7) Weight - Scale: 74.844 kg (165 lb) (at MD's office) Airway Assessment: Mallampati: II TM distance: >3 FB Neck ROM: full Cardiovascular Assessment: cardiovascular exam normal Pulmonary Assessment: pulmonary exam normal Dental Assessment: Comment: Overall poor dentician Misc Assessment: IV access: Peripheral line Anesthesia Plan: ASA 2 general, with a(n) intravenous induction Patient is a 48 yo male presenting for MRI w/ anesthesia for evaluation of meningiomas, neurofibromas, and MUSIC HISTORIAN shunt. No significant history otherwise. Plan MAC w/ propofol gtt. Region - Other Informed Consent: Anesthetic plan and risks discussed with patient and mother. Use of blood products discussed with patient and mother whom consented to blood products. Plan discussed with attending. Robbin. Assessment: documented in this encounter Plan of Treatment Not on file documented as of this encounter Visit Diagnoses Not on filedocumented in this encounter Administered Medications Inactive Administered Medications - up to 3 most recent administrations Medication Order MAR Action Action Date Dose Rate Site lactated ringers infusion CONTINUOUS PRN, Starting on Tue01/06/15 at 1510, Until Tue01/06/15 at 1814, Anesthesia Intra-op New Bag 01/06/2015 3:10 PM EDT midazolam (PF) (VERSED) 1 mg/mL multi-dose injection PRN, Starting on Tue01/06/15 at 1514, Until Tue01/06/15 at 1814, Sleep, Anesthesia Intra-op, Routine Given 01/06/2015 3:14 PM EDT 2 mg propofol (DIPRIVAN) 10 mg/mL bolus injection (Anesthesia) PRN, Starting on Tue01/06/15 at 1527, Until Tue01/06/15 at 1814, Anesthesia Intra-op Given 01/06/2015 3:27 PM EDT 30 mg propofol (DIPRIVAN) infusion CONTINUOUS PRN, Starting on Tue01/06/15 at 1527, Until Tue01/06/15 at 1814, Anesthesia Intra-op, Routine Rate/Dose Change 01/06/2015 4:23 PM EDT 75 mcg/kg/min 33.7 mL/hr Rate/Dose Change 01/06/2015 3:32 PM EDT 100 mcg/kg/min 44. 9 mL/hr New Bag 01/06/2015 3:27 PM EDT 200 mcg/kg/min 89.8 mL/h r documented in this encounter Care Teams Cord Tire Builder Relationship Specialty Start Date End Date Dimas Lau MD [address] [place] [address] PCP - General 06/30/10 documented as of this encounter
--- OUTSIDE RECORDS SUMMARY | 2024-04-06 17:01 | XMS_ITS | Encounter Summary ---
Author Organization [facility] Address [facility] [place] [address] Care Team Providers Care Wound Care Specialist Name Role Phone Dimas Lau MD Primary Care Provider [phone] Encounter Details Date Type Department Care Team (Late st Contact Info) Description 02/25/2014 2:14 PM EDT - 02/25/2014 6:15 PM EDT Hospital Encounter [place] [address] RESOURCE, ANESTHESIA-NICHOL Boyd Marlow MD [facility] [place] [address] Discharge Disposition: Home Social History Tobacco Use Types Packs/Day Years Used Date Smoking Tobacco: Never Assessed Alcohol Use Standard Drinks/Week Comments No 0 (1 standard drink = 0.6 oz pur e alcohol) Sex and Gender Information Value Date Recorded Sex Assigned at Not on file Gender Identity Not on file Sexual Orientation Not on file documented as of this encounter Last Filed Vital Signs Vital Sign Reading Time Taken Comments Blood Pressure 124/76 02/25/2014 5:45 PM EDT Pulse 73 02/25/2014 5:45 PM EDT Temperature 36.4 ??C (97.5 ??F) 02/25/2014 4:41 PM ED T Respiratory Rate 16 02/25/2014 5:45 PM EDT Oxygen Saturation 96% 02/25/2014 5:45 PM EDT Inhaled Oxygen Concentration - - Weight 73 kg (161 lb) 02/25/2014 2:33 PM EDT Height 170.2 cm (5' 7) 02/25/2014 2:33 PM EDT Body Mass Index 25.22 02/25/2014 2:33 PM EDT documented in this encounter Discharge Instructions * Discharge Instructions* Chelsey Georges RN - 02/25/2014 4:45 PM EDT POST ANESTHESIA INSTRUCTIONS Go home, [...] liquid 01/28/2010 documented as of this encounter Miscellaneous Notes * Miscellaneous - Provider, Scanning - 02/25/2014 9:44 PM EDT * Miscellaneous - Provider, Scanning - 02/25/2014 3:03 PM EDT documented in this encounter Plan of Treatment Not on file documented as of this encounter Procedures Procedure Name Priority Date/Time Associated Diagnosis Comments MRI WITH ANESTHESIA (WRVU *) 02/25/2014 11:30 PM EDT Follow up meningiomas and shunt. Loss of functional abilities MRI BRAIN WWO CONTRAST (GENERIC) Routine 02/25/2014 4:35 PM EDT documented in this encounter Results * MRI brain with/WO contrast (02/25/2014 4:35 PM EDT) Anatomical Region Laterality Modality Head Magnetic Resonan ce 02/25/2014 4:35 PM EDT Narrative 02/25/2014 5:48 PM EDT Examination MR BRAIN W/WO CONTRAST/ANES Clinical History loss of functional abilities f/up of meningiomas & shunt Comparison MRI brain 11/28/2012, and 02/17/2012 Technique MRI acquired of the brain before and after administration of 15 mL of Magnevist. ?? Findings Postsurgical changes are present in the posterior fossa with a right parietal shunt catheter with its tip in the left lateral ventricle which is unchanged. ?? Ventricles are unchanged in size with volume loss within the right hemisphere and dilatation of the right lateral ventricle. ?? Several extra-axial enhancing lesions within the posterior fossa are not significantly changed (all well visualized on series 102, image 67). The largest lesion in the posterior midline measures 18 x 15 mm in the axial plane. Abnormal enhancement within the right IAC measures approximately 12 mm compatible with an acoustic neuroma and is unchanged. Small focus of unchanged enhancement present within the left IAC and may reflect a small schwannoma as well. Several smaller extra-axial lesions of the falx and tentorium are unchanged. There is a tiny right falcine enhancing mass which is also unchanged (series 12, image 21) measuring 7 x 4 mm in the coronal plane. ?? Impression 1. Stable size and contour of the ventricles. ?? 2. Stable appearance of multiple posterior fossa presumed meningioma and a parafalcine meningioma. 3. Unchanged bilateral right greater than left acoustic neuromas. Film and interpretation reviewed by the attending Procedure Note Kishor Amanda MD - 02/25/2014 Examination MR BRAIN W/WO CONTRAST/ANES Clinical History loss of functional abilities f/up of meningiomas & shunt Comparison MRI brain 11/28/2012, and 02/17/2012 Technique MRI acquired of the brain before and after administration of 15 mL of Magnevist. Findings Postsurgical changes are present in the posterior fossa with a rightparietal shunt catheter with its tip in the left lateral ventricle which isunchanged. Ventricles are unchanged in size with volume loss within the righthemisphere and dilatation of the right lateral ventricle. Several extra-axial enhancing lesions within the posterior fossa are not significantly changed (all well visualized on series 102, image 67). The largest lesion in the posterior midline measures 18 x 15 mm in the axialplane. Abnormal enhancement within the right IAC measures approximately 12 mm compatible with an acoustic neuroma and is unchanged. Small focus ofunchanged enhancement present within the left IAC and may reflect a small schwannomaas well. Several smaller extra-axial lesions of the falx and tentorium are unchanged. There is a tiny right falcine enhancing mass which is alsounchanged (series 12, image 21) measuring 7 x 4 mm in the coronal plane. Impression 1. Stable size and contour of the ventricles. 2. Stable appearance of multiple posterior fossa presumed meningioma and a parafalcine meningioma. 3. Unchanged bilateral right greater than left acoustic neuromas. Film and interpretation reviewed by the attending Dimas Lau MD [facility] MRI ORDERABLES documented in this encounter Visit Diagnoses Not on filedocumented in this encounter Administered Medications Inactive Administered Medications - up to 3 most recent administrations Medication Order MAR Action Action Date Dose Rate Site gadopentetate dimeglumine (MAGNEVIST) injection 15 mL 15 mL, Intravenous, ONCE PRN, Per Protocol, Starting on Tue02/25/14 at 1604, 1 dose, Until Tue02/25/14 at 1609 Given 02/25/2014 4:09 PM EDT 15 mLs lactated ringers infusion 1,000 mL 1,000 mL, at 100 mL/hr, Intravenous, CONTINUOUS, Starting on Tue02/25/14 at 1500, Until Tue02/25/14 at 1808, Day of Surgery (Day of Procedure) New Bag 02/25/2014 5:24 PM EDT 1,000 mLs 100 mL/hr New Bag 02/25/2014 3:00 PM EDT 1,000 mLs 100 mL/hr documented in this encounter Active and Recently Administered Medications Times are shown in EDT. Continuous Medication Order 02/23/2014 02/24/2014 02/25/2014 lactated ringers infusion 1,000 mL (CANCELED) 1,000 mL, at 100 mL/hr, Intravenous, CONTINUOUS, Starting on Tue02/25/14 at 1500, Until Tue02/25/14 at 1808, Day of Surgery (Day of Procedure) 1500 (New Bag - Prov ider: Cheyanne Marcial, RN)1724 (New Bag - Provider: Natalie Carvajal, KENNEDY - Comment: BP low continue w/IVF until pt. awake and alert) PRN Medication Order 02/23/2014 02/24/2014 02/25/2014 gadopentetate dimeglumine (MAGNEVIST) injection 15 mL (COMPLETED) 15 mL, Intravenous, ONCE PRN, Per Protocol, Starting on Tue02/25/14 at 1604, 1 dose, Until Tue02/25/14 at 1609 1609 (Given - Provid er: Valentina Aleman) documented in this encounter Care Teams Wound Care Specialist Relationship Specialty Start Date End Date Dimas Lau MD [address] [place] [address] PCP - General 06/30/10 documented as of this encounter
--- OUTSIDE RECORDS SUMMARY | 2024-04-06 17:01 | XMS_ITS | Encounter Summary ---
[place] [address] Care Team Providers Care Test Driller Name Role Phone Dimas Lau MD Primary Care Provider [phone] Encounter Details Date Type Department Care Team (Late st Contact Info) Description 02/25/2014 3:38 PM ED[place] [phone] Boyd Joaquin MD [facility] [place] [address] Flora Conroy Anesthesia Record Procedure Summary Procedure Name Responsible Anesthesiologist Anesthesia Start Time Anesthesia Stop Time MRI WITH ANESTHESIA (WRVU *) (Brain) Boyd Joaquin MD 02/25/14 1538 02/25/14 1643 Events Date Time Event Comment 02/25/2014 1538 AN Verify 1538 Start 1538 An Start Data 1551 Anesthesia Ready 1556 1631 an stop data 1643 Stop Meds Name Total propofol INF 735.84 mg * Agents Name O2 * Blood No blood administrations on file. Lines, Drains, and Airways Type Details Placement Removal (RETIRED) Peripheral IV Line - Single Lumen 02/25/14; 1453; metacarpal vein right (top of hand); [id number] catheter system; 20 gauge, 1 in length; Masood Hmailton RN; distraction, intradermal injection, tolerated well, appears comfortable, age-appropriate response; 2; 02/25/14; 181602/25/14 1453 by Cheyanne Marcial RN 02/25/141816 by Natalie Carvajal RN documented in this encounter Social History [...] OR Notes * Anesthesia Postprocedure Evaluation - Boyd Joaquin MD - 02/25/2014 6:19 PM EDT Patient: Hollis Ambriz Procedure(s) Performed: Procedure(s): MRI WITH ANESTHESIA Actual Anesthetic: general Patient location: PACU Post-op pain: Adequate analgesia Post-op nausea: no nausea or vomiting Last Vitals: Filed Vitals: 02/25/14 1745 BP: 124/76 Pulse: 73 Temp: Resp: 16 Post-op cardiovascular and respiratory status: is stable Level of consciousness: awake, alert and oriented Complications: no apparent complications and tolerated the procedure well Fluid Status: normal * Anesthesia Preprocedure Evaluation - Simón Francois - 02/25/2014 5:39 AM EDT Pre-Anesthesia Evaluation for: Hollis Ambriz a 48 y.o. male. Procedure(s): MRI WITH ANESTHESIA Patient [...] procedure 11/28/2012 MRI WITH ANESTHESIA performed by Christine Morales-[facility]illermina at [facility] [place] History Substance Use Topics ??? Smoking status: [...] on file to calculate BMI. Airway Assessment: Mallampati: II TM distance: >3 FB Neck ROM: full Cardiovascular Assessment: cardiovascular exam normal Pulmonary Assessment: pulmonary exam normal Dental Assessment: Comment: Overall poor dentician [facility] Assessment: IV access: Peripheral line Anesthesia Plan: ASA 2 general, with a(n) intravenous induction Patient is a 48 yo male presenting for MRI w/ anesthesia for evaluation of meningiomas, neurofibromas, and LIFESTYLE CONSULTANT shunt. No significant history otherwise. Plan MAC w/ propofol gtt. Region - Other Informed Consent: Anesthetic plan and risks discussed with patient and mother. Use of blood products discussed with patient and mother whom consented to blood products. Plan discussed with attending. [facility]. Assessment: documented in this encounter Plan of Treatment Not on file documented as of this encounter Visit Diagnoses Not on filedocumented in this encounter Administered Medications Inactive Administered Medications - up to 3 most recent administrations Medication Order MAR Action Action Date Dose Rate Site propofol (DIPRIVAN) infusion CONTINUOUS PRN, Starting on Tue02/25/14 at 1531, Until Tue02/25/14 at 1643, Anesthesia Intra-op, Routine Rate/Dose Change 02/25/2014 4:07 PM EDT 130 mcg/kg/min 56.9 mL/hr New Bag 02/25/2014 3:31 PM EDT 150 mcg/kg/min 65.7 mL/h r documented in this encounter Care Teams Test Driller Relationship Specialty Start Date End Date Dimas Lau MD [address] [place] [address] PCP - General 06/30/10 documented as of this encounter
--- OUTSIDE RECORDS SUMMARY | 2024-04-06 17:01 | XMS_ITS | Encounter Summary ---
[place] [address] Care Team Providers Care Manager Costing Name Role Phone Dimas Lau MD Primary Care Provider Encounter Details Date Type Department Care Team (Late st Contact Info) Description 02/25/2014 3:30 PM EDT - 02/25/2014 4:30 [place] [phone] RESOURCE, ANESTHESIA-NICHOL None MRI WITH ANESTHESIA (WRVU [...] reviewed by the attending Dimas Lau MD IMG MRI ORDERABLES documented [...] 1500 (New Bag - Prov ider: Cheyanne Marcial RN)1724 (New Bag - Provider: Natalie Carvajal RN - Comment: BP low continue w/IVF until pt. awake and alert) PRN Medication Order 02/23/2014 02/24/2014 02/25/2014 gadopentetate dimeglumine (MAGNEVIST) injection 15 mL (COMPLETED) 15 mL, Intravenous, ONCE PRN, Per Protocol, Starting on Tue02/25/14 at 1604, 1 dose, Until Tue02/25/14 at 1609 1609 (Given - Provid er: Valentina Aleman) documented in this encounter Care Teams Manager Costing Relationship Specialty Start Date End Date Dimas Lau MD [address] [place] [address] PCP - General 06/30/10 documented as of this encounter
--- OUTSIDE RECORDS SUMMARY | 2024-04-06 17:01 | XMS_ITS | Encounter Summary ---
[place] [address] Care Team Providers Care Strand Galvanizer Name Role Phone Diams Lau MD Primary Care Provider 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 * Diagnostic Test (Routine) - Closed Specialty Diagnoses / Procedures Referred By Contac t Referred To Contact Radiology Diagnoses Bilateral acoustic neuromas Procedures MRI Brain With/WO Contrast (GENERIC) Joseline Ward APRN [facility] [place] [address] [place] [address] Referral ID Status Reason Start Date Expiration Date V isits Requested Visits Authorized [id number] Closed Specialty Service Requested 11/12/2015 11/11/2016 1 1 Encounter Details Date Type Department Care Team (Late st Contact Info) Description 11/12/2015 Orders [place] [address] Joseline Ward GEAR TOOTH GRINDING MACHINE OPERATOR [facility] [place] [address] Bilateral acoustic neuromas Social History Tobacco Use Types Packs/Day Years [...] on file documented as of this encounter Results * MRI Brain With/WO Contrast (GENERIC) (12/19/2015 2:00 PM EDT) Anatomical Region Laterality Modality Head Magnetic Resonan ce Impressions 12/19/2015 2:33 PM EDT IMPRESSION: 1. ??Stable right larger than left IAC schwannomas. 2. ??Multiple posterior fossa and tentorial meningiomas. Mild interval enlargement of meningioma along the right posterior fossa impressing upon the right cerebellar hemisphere. Unchanged right cerebellar parenchymal signal alteration. Narrative 12/19/2015 2:33 PM EDT EXAMINATION: MRI BRAIN WWO CONTRAST CLINICAL HISTORY: NF, bilateral acoustic neuroma, multiple meningiomas, evaluate for change fiesta, thin cuts skull base, IAC protocol for skull base TECHNIQUE: MRI of the brain was performed before and after the administration of 7 mL Gadavist, IAC protocol COMPARISON: MRI brain 01/06/2015 and 02/25/2014 FINDINGS: Stable position of right posterior approach ventriculostomy catheter which courses across midline and terminates in the left frontal horn. Stable acoustic neuroma within the right IAC measuring 11 to 12 mm long and 6 mm in width. No extension into the cochlea. Unchanged punctate nodular enhancement within the superior distal left IAC which likely reflects enhancement on the seventh nerve, possibly a tiny schwannoma. Postsurgical changes of the posterior fossa. Interval enlargement of the right posterior lateral homogeneously enhancing extra-axial mass with dural tail now measuring 2 x 1.8 cm in oblique AP diameter compared to 1.7 x 1.7 cm on the prior exam. The nodular extra-axial enhancing mass in the midline is not significantly changed. The small extra-axial mass near the junction of the right transverse and sigmoid sinuses is also not significantly changed. New/enlarged small extra-axial enhancing mass near the junction of the left transverse and sigmoid sinuses. Extra-axial enhancing mass along the parasagittal left transverse sinuses not significantly changed. Multinodular enhancement along the dura overlying the right occipital pole and right cerebellar hemisphere. Additional meningioma posterior to the splenium of the corpus callosum seen on coronal sequence. The ventricles are unchanged in caliber and contour. No evidence for recent infarction. No supratentorial mass effect. No extra-axial collection. Procedure Note Cary Trevino MD - 12/19/2015 EXAMINATION: MRI BRAIN WWO CONTRAST CLINICAL HISTORY: NF, bilateral acoustic neuroma, multiple meningiomas,evaluate for change fiesta, thin cuts skull base, IAC protocol for skull base TECHNIQUE: MRI of the brain was performed before and after theadministration of 7 mL Gadavist, IAC protocol COMPARISON: MRI brain 01/06/2015 and 02/25/2014 FINDINGS: Stable position of right posterior approach ventriculostomycatheter which courses across midline and terminates in the left frontal horn. Stable acoustic neuroma within the right IAC measuring 11 to 12 mm longand 6 mm in width. No extension into the cochlea. Unchanged punctate nodularenhancement within the superior distal left IAC which likely reflects enhancement onthe seventh nerve, possibly a tiny schwannoma. Postsurgical changes of the posterior fossa. Interval enlargement of theright posterior lateral homogeneously enhancing extra-axial mass with dural tailnow measuring 2 x 1.8 cm in oblique AP diameter compared to 1.7 x 1.7 cm onthe prior exam. The nodular extra-axial enhancing mass in the midline is not significantly changed. The small extra-axial mass near the junction of theright transverse and sigmoid sinuses is also not significantly changed.New/enlarged small extra-axial enhancing mass near the junction of the left transverseand sigmoid sinuses. Extra-axial enhancing mass along the parasagittal left transverse sinuses not significantly changed. Multinodular enhancementalong the dura overlying the right occipital pole and right cerebellar hemisphere. Additional meningioma posterior to the splenium of the corpus callosumseen on coronal sequence. The ventricles are unchanged in caliber and contour. No evidence forrecent infarction. No supratentorial mass effect. No extra-axial collection. IMPRESSION IMPRESSION: 1. Stable right larger than left IAC schwannomas. 2. Multiple posterior fossa and tentorial meningiomas. Mild interval enlargement of meningioma along the right posterior fossa impressing uponthe right cerebellar hemisphere. Unchanged right cerebellar parenchymalsignal alteration. Alex Lynn MD IMG MRI ORDERABLES documented in this encounter Visit Diagnoses Diagnosis Bilateral acoustic neuromas Benign neoplasm of cranial nerves Bilateral acoustic neuromas Benign neoplasm of cranial nerves documented in this encounter Care Teams Strand Galvanizer Relationship Specialty Start Date End Date Dimas Lau MD [address] [place] [address] PCP - General 06/30/10 documented as of this encounter
--- OUTSIDE RECORDS SUMMARY | 2024-04-06 17:01 | XMS_ITS | Encounter Summary ---
Author Organization [facility] Address [facility] [place] [address] Care Team Providers Care Special Shopper Name Role Phone Dimas Lau MD Primary Care Provider Encounter Details Date Type Department Care Team (Late st Contact Info) Description 02/13/2016 1:00 PM EDT Office [place] [address] Joseline Ward APRN [facility] [place] [address] [place] [address] NF2 (neurofibromatosis 2); Cerebral meningioma; Left acoustic neuroma Social History Tobacco Use Types Packs/Day Years Used Date Smoking Tobacco: Never Alcohol Use Standard Drinks/Week Comments No 0 (1 standard drink = 0.6 oz pur e alcohol) Sex and Gender Information Value Date Recorded Sex Assigned at Not on file Gender Identity Not on file Sexual Orientation Not on file documented as of this encounter Progress Notes * Joseline Diaz APRN - 02/12/2016 8:44 PM EDT HPI: Patient is seen in the [facility] in follow up for bilateral acoustic neuroma. 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 He has bilateral acoustic neuromas, as well as multiple intracranial meningiomas. Last seen in follow-up 2008. The patient is non- verbal, and is accompanied by his mother/DPOA and his primary care provider. He lives with 24 hour caregiving support. His caregivers note a general decline over the past 2 years. He does not walk as long distances as previously. He has occasional days where his balance seems quite impaired. He cannot feed himself onsome occasions. There are no observable pain behaviors. He has no vomiting. They feel that he occasional exhibits behaviors consistent with headaches. His medical history is notable for prior treatment with radiation to cerebral meningiomas (20 yearsago), surgical resection of a prior meningioma, and placement of CREDIT CHARGE AUTHORIZER shunt due to hydrocephalus following surgery. ROS: See HPI above. Caregivers further denies fevers, night sweats, unexplained weight change, anorexia,fatigue. PE: Constitutional: Appears well in NAD. Well-nourished, affect bright. Makes eye contact intermittently. Neurological: Pupils equal and reactive, EOM full without nystagmus, palate and tongue midline. Facial function House-Brackmann Grade 1 (based on observation, patient unable to follow verbal commands. Able to place hands at targets without evidence of dysmetria (unable to follow finger to nose testing). Gait narrow-based, equal step length, walks with mild forward trunk flexion. MRI from 12/19/15 reviewed by me personally. There are several small homogenously enhancing masses in the posterior fossa, the largest measuring 2 cm at its greatest dimension and exerting mild mass effect upon the right cerebellar hemisphere, with interval growth since last MRI's in 2011 and 2008. R IAC mass unchanged in size, measuring 12mm at its largest dimension and exerting no mass effect. Assessment: Patient with NF and chromosomal defect with multiple meningiomas that have been overall stable. There is evidence of growth since 2008 in an expected trajectory for meningioma. While examination of the patient for clinical consequences of the meningioma is difficult, there are not clear signs of cerebellar dysfunction, and his general decline could also be attributable to his degenerative disorder. We reviewed today's images and implications of findings. Given his other medical conditions and overall functional abilities, any kind of treatment will be pursued cautiously, to avoid causing unnecessary morbidity in his ability to continue to function at the highest possible level. We discussed options of surgery, radiosurgery, and continued observation. Observation and radiosurgery are the most optimal options, and are also the patient's mother's preference. He does require GA for MRI, so this will be considered in any plan for observation. We will review his case at tumor board and contact the patient with recommendations. documented in this encounter Plan of Treatment Not on file documented as of this encounter Visit Diagnoses Diagnosis NF2 (neurofibromatosis 2) Neurofibromatosis, Type 2 (acoustic neurofibromatosis) Cerebral meningioma Benign neoplasm of cerebral meninges Left acoustic neuroma Benign neoplasm of cranial nerves documented in this encounter Care Teams Special Shopper Relationship Specialty Start Date End Date Dimas Lau MD [address] [place] [address] PCP - General 06/30/10 documented as of this encounter
--- OUTSIDE RECORDS SUMMARY | 2024-04-06 17:01 | XMS_ITS | Encounter Summary ---
[place] [address] Care Team Providers Care Manager Game Name Role Phone Dimas Lau MD Primary Care Provider Encounter Details Date Type Department Care Team (Latest Contact Info) Description 11/28/2012 10:31 AM EDT - 11/28/2012 3:20 PM EDT Hospital [place] [phone] RESOURCE, ANESTHESIA-Tigist Chong MD [facility] DR [place] [address] Discharge Disposition: Home Social History Tobacco Use Types Packs/Day Years Used Date Smoking Tobacco: Never Assessed Sex and Gender Information Value Date Recorded Sex Assigned at Not on file Gender Identity Not on file Sexual Orientation Not on file documented as of this encounter Last Filed Vital Signs Vital Sign Reading Time Taken Comments Blood Pressure 136/82 11/28/2012 2:40 PM EDT Pulse 64 11/28/2012 2:40 PM EDT Temperature 36.4 ??C (97.5 ??F) 11/28/2012 1:50 PM ED T Respiratory Rate 18 11/28/2012 2:40 PM EDT Oxygen Saturation 100% 11/28/2012 2:40 PM EDT Inhaled Oxygen Concentration - - Weight 72.5 kg (159 lb 13.3 oz) 013 11:13 AM EDT Height 175.3 cm (5' 9) 11/28/2012 11:1 3 AM EDT Body Mass Index 23.6 11/28/2012 11:13 AM EDT documented in this encounter Discharge Instructions * Discharge Instructions* Kishor Maya RN - 11/28/2012 2:44 PM EDT POST ANESTHESIA INSTRUCTIONS Go home, [...] 01/28/2010 docusate sodium (COLACE) 100 mg capsule 0 01/28/2010 mineral oil liquid 01/28/2010 documented as of this encounter Progress Notes * Kaitlin Corona, RN - 11/28/2012 2:07 PM EDT Received report, and care assumed. Patient is reported to be nonverbal. 14:06 - Mother and sister at bedside. documented in this encounter Procedure Notes * Provider, Scanning - 11/28/2012 5:42 PM EDTAssociated Order(s): SCAN DOC: BUSINESS PROCESS EXPERT documented in this encounter Miscellaneous Notes * Miscellaneous - Provider, Scanning - 11/28/2012 6:06 PM EDT * Miscellaneous - Provider, Scanning - 11/28/2012 11:06 AM EDT documented in this encounter Plan of Treatment Not on file documented as of this encounter Procedures Procedure Name Priority Date/Time Associated Diagnosis Comments MRI WITH ANESTHESIA (WRVU *) 11/28/2012 8:05 PM EDT Neurofibromatosis w/mengioma; ? vp patient shunt malformation BUSINESS PROCESS EXPERT SCAN 11/28/2012 5:42 PM EDT documented in this encounter Results * SCAN DOC: BUSINESS PROCESS EXPERT (11/28/2012 5:42 PM EDT) Anatomical Region Laterality Modality Other Narrative 11/28/2012 6:06 PM EDT Procedure Note Provider, Scanning - 11/28/2012 5:42 PM EDT Scanning Provider MEDIA MGR SCAN EXT O RDR/RSLT documented [...] are shown in EDT. Continuous Medication Order 11/26/2012 11/27/2012 11/28/2012 lactated ringers infusion 1,000 mL (CANCELED) 1,000 mL, at 100 mL/hr, Intravenous, CONTINUOUS, Starting on Tue11/28/12 at 1130, Until Tue11/28/12 at 1748, Day of Surgery (Day of Procedure) 1130 (New Bag - Prov ider: Masood Hamilton RN)1241 (New Bag - Provider: Anish Traore CRNA)1355 (Anesthesia Volume Adjustment - Provider: Anish Traore CRNA) documented in this encounter Care Teams Manager Game Relationship Specialty Start Date End Date Dimas Lau MD [address] [place] [address] PCP - General 06/30/10 documented as of this encounter
--- OUTSIDE RECORDS SUMMARY | 2024-04-06 17:01 | XMS_ITS | Clinical Summary ---
Author Organization [facility] [address] Care Team Providers Care House Shorer Name Role Phone Dimas Lau MD Primary Care Provider Allergies Active Allergy Reactions Criticality Noted Date Comments Carbamazepine High CIS - diarrhea Haloperidol Medium CIS - paradoxical agitation Sulfa (Sulfonamide Antibiotics) Medium CIS - Nausea/Vomiting Medications Medication Sig Dispensed Refills Start Date End Date Status LORazepam (ATIVAN) 1 mg tablet 01/28/2010 Active docusate sodium (COLACE) 100 mg capsule 01/28/2010 A ctive mineral oil liquid 01/28/2010 Active acetaminophen (TYLENOL) 325 mg tablet Take 650 mg by mouth every 4 hours as needed. Active polyethylene glycol (MIRALAX) 17 gram Powder in Packet Take 17 g by mouth daily. 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 Social History Tobacco Use Types Packs/Day Years Used Date Smoking Tobacco: Never Alcohol Use Standard Drinks/Week Comments No 0 (1 standard drink = 0.6 oz pur e alcohol) Sex and Gender Information Value Date Recorded Sex Assigned at Not on file Gender Identity Not on file Sexual Orientation Not on file Last Filed Vital Signs Vital Sign Reading [...] Mass Index 24.9 04/26/2018 11:53 AM EDT Plan of Treatment Health Maintenance Due Date Last Done Comments CT Colonography 1964 Colonoscopy 1964 Colorectal Cancer Screening 1964 FIT DNA 1964 FIT 1964 Sigmoidoscopy (10 year) with FIT yearly 1964 Sigmoidoscopy 1964 HIV screen 1982 Hepatitis C Screening 1982 Lipid Screening 1982 Hepatitis B vaccine (0-59 yrs) (1) 10/25/1983 Tdap adult 10/25/1983 Tetanus vaccine 10/25/1983 Zoster vaccine (1 of 2) 2014 Advance Directive 10/25/2019 Covid-19 Vaccine (1 - 2022-24 season) 2023 Influenza (Flu) vaccine (1 o f 1 - Influenza standard series) 04/08/2024 Medical Devices Implanted Type Area Driver Medic Device Identifier Shelf Expiration Date Model / Serial / Lot Job Honer Shunt Other Description:ROSE GROWER SHUNT PLACED IN 1993. MRI Conditional up to 1.5T. Shraddha Lynn MRI Safety Technologist 11/02/2017 Advance Directives * Full Code (Latest Code Status on File) Date Activated Date Inactivated Comments 12/19/2015 12:19 PM 12/19/2015 4:44 PM Question Answer Comments Does patient have capacity to make decision: Yes Care Teams House Shorer Relationship Specialty Start Date End Date Dimas Lau MD [address] [place] [address] PCP - General 06/30/10
--- OUTSIDE RECORDS SUMMARY | 2024-04-06 17:01 | XMS_ITS | Encounter Summary ---
Author Organization [facility] Address [facility] [place] [address] Care Team Providers Care Forest Examiner Name Role Phone Dimas Lau MD Primary Care Provider [phone] Reason for Visit * Reason Comments Acoustic Neuroma Bilateral , ref by N euro Encounter Details Date Type Department Care Team (Late st Contact Info) Description 02/13/2016 1:00 PM EDT Office Visit Otolaryngology at [facility] [place] [address] Perico Ball MD [facility] DR OTOLARYNGOLOGY [place] [phone] Acoustic neuroma syndrome, right; Meningioma of cerebellum; Chromosomal abnormality Social History Tobacco Use Types Packs/Day Years [...] Sign Reading Time Taken Comments Blood Pressure 113/79 02/13/2016 12:58 PM EDT Pulse 61 02/13/2016 12:58 PM EDT Temperature - - Respiratory Rate - - Oxygen Saturation - - Inhaled Oxygen Concentration - - Weight 73.9 kg (163 lb) 02/13/2016 12:58 PM EDT Height 170.2 cm (5' 7) 02/13/2016 12:58 PM EDT Body Mass Index 25.53 02/13/2016 12:58 PM EDT documented in this encounter Progress Notes * Perico Ball MD - 02/13/2016 12:05 PM EDT In the presence of Dr Ball, I am recording the patients history of present illness. Tigist Hinson RMA Referred by patient's Neurologist. Here with Mom and caregiver. 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 Patient was last seen in 2008. His mother reports more balance problems and some intention tremor and coordination problems in UE. Difficult to assess balance and hearing. Also reports more lethargy and generalized malaise. Past Medical History Diagnosis Date ??? Acoustic neuroma bilateral ??? Central NF2 neurofibromatosis ??? NF2-related schwannomatosis ??? 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 Smoking status: Never Smoker ??? Smokeless tobacco: None ??? Alcohol use No History reviewed. No pertinent family history. ROS: Neg other than above See HPI above. Patient further denies fevers, night sweats, unexplained weight change, anorexia, fatigue. PE: Constitutional: Appears well in NAD. Well-nourished, grooming and dress appropriate to situation. Neurological: Not able to follow exam instructions No definite cerelbellar dysfunction Wax impaction FAcial nerve grossly NL The following imaging studies were reviewed by me: A homogenously-enhancing mass is seen in the right acoustic - no change. There has been an interval increase in the size of the right cerebellar meningioma. Unable to obtain audiogram Assessment: Acoustic neuroma, stable but interval increase of right cerebellar meningioma. I am notsure how much this is impacting hios QOL. Will have him presented at neuro tumor board next week. RTC ANC with repeat MRI in 2 yrs (I am sure that he will need a follow scan sooner than that for his meningioma). I have performed the service outlined in the notes from this encounter and agree with the accuracy of the note. ?? Carlos Ball MD documented in this encounter Plan of Treatment Not on file documented as of this encounter Visit Diagnoses Diagnosis Acoustic neuroma syndrome, right Meningioma of cerebellum Chromosomal abnormality Conditions due to anomaly of unspecified chromosome documented in this encounter Care Teams Forest Examiner Relationship Specialty Start Date End Date Dimas Lau MD [address] [place] [address] PCP - General 06/30/10 documented as of this encounter
--- OUTSIDE RECORDS SUMMARY | 2024-04-06 17:01 | XMS_ITS | Encounter Summary ---
[place] [address] Care Team Providers Care Seasoner Hand Name Role Phone Dimas Lau MD Primary Care Provider Encounter Details Date Type Department Care Team (Latest Contact Info) Description 12/19/2015 11:17 AM EDT - 12/19/2015 2:43 PM EDT Hospital En[place] [phone] Stefan Mack MD [facility] [place] [address] Discharge Disposition: Home Social History Tobacco Use [...] Sign Reading Time Taken Comments Blood Pressure 115/81 12/19/2015 2:29 PM EDT Pulse 70 12/19/2015 2:29 PM EDT Temperature 36.2 ??C (97.2 ??F) 12/19/2015 2:08 PM ED T Respiratory Rate 18 12/19/2015 2:29 PM EDT Oxygen Saturation 99% 12/19/2015 2:29 PM EDT Inhaled Oxygen Concentration - - Weight 72.6 kg (160 lb) 12/19/2015 11:32 AM EDT Height 170.2 cm (5' 7) 12/19/2015 11:32 AM EDT Body Mass Index 25.06 12/19/2015 11:32 AM EDT documented in this encounter Discharge Instructions * Discharge Instructions* Masood Hamilton RN - 12/19/2015 2:41 PM EDT POST ANESTHESIA INSTRUCTIONS Go home, [...] Diagnosis Comments MRI WITH ANESTHESIA (WRVU *) 12/19/2015 8:30 PM EDT BILATERAL ACOUSTIC NEUROMAS; NF, BILATERAL ACOUSTIC NEUROMA, MULTIPLE MENINGIOMAS, EVALUATE FOR CHANGE; IAC PROTOCAL FOR SKULL BASE UROLOGY SCAN 12/19/2015 12:00 AM EDT documented in this encounter Results * SCAN DOC: UROLOGY (12/19/2015 12:00 AM EDT) Scanning Provider MEDIA MGR SCAN EXT O RDR/RSLT documented in this encounter Visit Diagnoses Not on filedocumented in this encounter Administered Medications Inactive Administered Medications - up to 3 most recent administrations Medication Order MAR Action Action Date Dose Rate Site lactated ringers infusion 1,000 mL 1,000 mL, at 100 mL/hr, Intravenous, CONTINUOUS, Starting on Tue12/19/15 at 1200, Until Tue12/19/15 at 1644, Day of Surgery (Day of Procedure) New Bag 12/19/2015 12:46 PM EDT 1,000 mLs 100 mL/hr lidocaine (XYLOCAINE) 10 mg/mL (1 %) injection 3 mg 3 mg (0.3 mL), Subcutaneous, ONCE PRN, 1 dose, Starting on Tue12/19/15 at 1134, Until Tue12/19/15 at 1246, for discomfort with PIV insertion, Day of Surgery (Day of Procedure), Routine Given 12/19/2015 12:46 PM EDT 3 mg documented in this encounter Active and Recently Administered Medications Times are shown in EDT. Continuous Medication Order 12/17/2015 12/18/2015 12/19/2015 lactated ringers infusion 1,000 mL (CANCELED) 1,000 mL, at 100 mL/hr, Intravenous, CONTINUOUS, Starting on Tue12/19/15 at 1200, Until Tue12/19/15 at 1644, Day of Surgery (Day of Procedure) 1246 (New Bag - Prov ider: Sabina López RN)1407 (Stopped - Provider: Lit Bradley CRNA) PRN Medication Order 12/17/2015 12/18/2015 12/19/2015 lidocaine (XYLOCAINE) 10 mg/mL (1 %) injection 3 mg (COMPLETED) 3 mg (0.3 mL), Subcutaneous, ONCE PRN, 1 dose, Starting on Tue12/19/15 at 1134, Until Tue12/19/15 at 1246, for discomfort with PIV insertion, Day of Surgery (Day of Procedure), Routine 1246 (Given - Provid er: Sabina López RN) documented in this encounter Care Teams Seasoner Hand Relationship Specialty Start Date End Date Dimas Lau MD [address] [place] [address] PCP - General 06/30/10 documented as of this encounter
--- OUTSIDE RECORDS SUMMARY | 2024-04-06 17:01 | XMS_ITS | Encounter Summary ---
Author Organization [facility] [place] [address] Care Team Providers Care Sheet Metal Assembler And Riveter Name Role Phone Dimas Lau MD Primary Care Provider [phone] Encounter Details Date Type Department Care Team (Late st Contact Info) Description 04/26/2018 1:00 [place] [address] Jerry, Danny Palacios MD [facility] [place] [address] Adwoa Mendez Anesthesia Record Procedure Summary Procedure Name Responsible Anesthesiologist Anesthesia Start Time Anesthesia Stop Time MRI WITH ANESTHESIA (WRVU *) Sites, Danny Palacios MD 04/26/18 1300 04/26/18 1629 Events Date Time Event Comment 04/26/2018 1230 1300 AN Verify 1300 Start 1300 An Start Data 1330 Anesthesia Ready 1629 an stop data 1629 Recovery or ICU Handoff Giovanna ent care was transferred to the destination unit staff after review of the patient's medical history, current anesthetic/surgical status and plan, according to the Provider Handoff Checklist. Pt to sd41 via wheeled stretcher. VSS. Pt exchanging well. Pt resting comfortably. Report given to RN, all questions answered. EIW. 1629 Stop Meds Name Total Propofol 80 mg Propofol INF 1,499.68 mg ePHEDrine 5 mg lactated Ringers infusion 1,000 mL 500 m L * Agents Name O2 Auxiliary Flowmeter 1 * Blood No blood administrations on file. Lines, Drains, and Airways Type Details Placement Removal Supraglottic Oral Airway: 100 mm (5); Nasopharyngeal Size: 32 Fr; Inserted by: st. [facility] 01/06/15 1544 by Tarah Montes CRNA Supraglottic Nasopharyngeal Size: 30 Fr; Inserted by: Jerry 04/26/18 1336 by (RETIRED) Peripheral IV Line - Single Lumen 04/26/18; 1211; metacarpal vein (top of hand), right; iaot-ner-sbqvtd catheter system; 20 gauge, 1 in length; Karena Dias RN; intradermal injection, distraction; 0; 04/26/18; 1746 04/26/18 1211 by Karena Dias RN 04/26/18 1746 by Emma Leonard RN documented in this encounter Social History [...] OR Notes * Anesthesia Postprocedure Evaluation - Danny Edwards MD - 04/26/2018 4:54 PM EDT [facility] Department of Anesthesiology Post-procedure Note Patient: Hollis Ambriz Procedure Summary Date Anesthesia Start Anesthesia Stop Room / Location 04/26/18 1300 1629 [facility] ADULT RADIOLOGY / [facility] Procedure Diagnosis Surgeon Responsible Provider MRI WITH ANESTHESIA (WRVU *) (N/A ) (NEUROFIBROMATOSIS) RESOURCE, ANESTHESIA- GUILLERMINA Danny Edwards MD All Anesthesia Providers: Anesthesiologist: Danny Edwards MD ASSISTANT BUYER: Brittney Catherine CRNA Most Recent Vitals: 04/26/18 1630 BP: 107/67 Pulse: Resp: (P) 18 Temp: SpO2: 96% Pain (P) 0 (04/26/18 1625) [facility] Level of Consciousness: Awake and Alert Pain Management: Satisfactory Analgesia PONV: None Cardiovascular Status: At Baseline Respiratory Status: Supplemental O2 (NC or FM) Postoperative Fluid Status: Intravascular EUvolemia Possible Anesthetic Complications: NONE apparent at time of evaluation Final Primary Anesthesia Type: MAC (The anesthetic type performed was the same as planned.) Comments: I have evaluated the patient in the postoperative period. He it is at his baseline mentalstatus. Oxygen just d/c'd. I summarized his anesthetic course for his mother and staff home therapy rn. * Anesthesia Preprocedure Evaluation - [facility], Danny Palacios MD - 04/26/2018 12:27 PM EDT Pre-Anesthesia Evaluation for: Hollis Ambriz a 52 y.o. male. Procedure(s): MRI WITH ANESTHESIA (WRVU *) Patient Active Problem List Diagnosis ??? NF2-related schwannomatosis ??? Acoustic neuroma bilateral ??? Neurofibromatosis, type 2 (acoustic neurofibromatosis) Past Medical History: Diagnosis Date ??? Acoustic neuroma bilateral ??? Central NF2 neurofibromatosis ??? NF2-related schwannomatosis ??? 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 CREATED BY INTERFACE EXCISION BENIGN LESION, SCALP, NECK, 1.1 TO 2.0 CM, ENT Procedure Date: 12/13/2008 ??? CREATED BY INTERFACE EXCISION BENIGN LESION, SCALP, NECK, 1.1 TO 2.0 CM, ENT Procedure Date: 12/13/2008 ??? CREATED BY INTERFACE EXCISION BENIGN LESION, SCALP, NECK, OVER 4.0 CM, ENT Procedure Date: 12/13/2008 ??? CREATED BY INTERFACE LAYER CLOSURE OF WOUND,SCALP,AXILLAE,TRUNK,2.6-7.5CM,ENT Procedure Date: 12/13/2008 ??? CREATED BY INTERFACE REPAIR,WOUND,INTERMEDIATE,2.5CM OR LESS Procedure Date: 12/13/2008 ??? PRG UNLISTED MRI PROCEDURE 11/28/2012 MRI WITH ANESTHESIA performed by Jair, Anesthesia-Guillermina at [facility] ??? PRG UNLISTED MRI PROCEDURE 02/25/2014 MRI WITH ANESTHESIA performed by Resource, Anesthesia-Guillermina at [facility] ??? PRG UNLISTED MRI PROCEDURE N/A 01/06/2015 MRI WITH ANESTHESIA performed by JAIR ANESTHESIA-GUILLERMINA at [facility] ??? PRG UNLISTED MRI PROCEDURE N/A 12/19/2015 MRI WITH ANESTHESIA performed by JAIR, ANESTHESIA-GUILLERMINA at [facility] ??? PRG UNLISTED MRI PROCEDURE N/A 12/23/2016 MRI WITH ANESTHESIA (WRVU *) performed by JAIR ANESTHESIA-GUILLERMINA at [facility] Social History Substance Use Topics ??? Smoking status: Never Smoker ??? Smokeless tobacco: Not on file ??? Alcohol use No History Drug Use No Allergies Allergen Reactions ??? Carbamazepine CIS - diarrhea ??? Haloperidol CIS - paradoxical agitation ??? Sulfa (Sulfonamide Antibiotics) CIS - Nausea/Vomiting Medications: MAR and/or home medications have been reviewed. Physical Exam: Most Recent Vitals: 04/26/18 1153 BP: 118/77 Pulse: 65 Resp: 18 Temp: 36.3 ??C (97.3 ??F) SpO2: 95% Body mass index is 24.9 kg/(m^2). Height: 170.2 cm (5' 7) Weight: 72.1 kg (159 lb) Airway Assessment: Mallampati: II TM distance: >3 FB Neck ROM: full Cardiovascular Assessment: Rhythm: regular Rate: normal Pulmonary Assessment: breath sounds clear to auscultation Dental Assessment: Misc Assessment: IV access: Peripheral line Anesthesia Plan: ASA 3 general, with a(n) intravenous induction I have seen and examined the patient. I have reviewed the medical record and pertinent laboratory information. I have noted the major medical issues to include but not limited to developmental delay,aphonia, immobilty, neurofibromatosis, meningionmas, bilateral accoustic neuromas, and vp global marketing solutions shunt. He has screening MRI yearly. He has done well with propofol mac in the past. I have highlighted risks related to sedation and airway management. The mother is aware that our care model is based on a team and I will be working with either a CRNAor resident physician. A resident physician means a physician who is in training to be an anesthesiologist. The mother acknowledged these risks and would like to proceed with the anesthesia plan. Informed Consent: Anesthetic plan and risks discussed with patient. Plan discussed with ASSISTANT BUYER. PAT Staff Note documented in this encounter Plan of Treatment Not on file documented as of this encounter Visit Diagnoses Not on filedocumented in this encounter Administered Medications Inactive Administered Medications - up to 3 most recent administrations Medication Order MAR Action Action Date Dose Rate Site ePHEDrine 5 mg/mL multi-dose injection PRN, Starting on Tue04/26/18 at 1435, Until Tue04/26/18 at 1630, Anesthesia Intra-op, Routine Given 04/26/2018 2:35 PM EDT 5 mg lactated Ringers infusion 1,000 mL 1,000 mL, at 100 mL/hr, Intravenous, CONTINUOUS, Starting on Tue04/26/18 at 1300, Until Tue04/26/18 at 1750, Day of Surgery (Day of Procedure) New Bag 04/26/2018 1:00 PM EDT propofol (DIPRIVAN) 10 mg/mL bolus injection (Anesthesia) PRN, Starting on Tue04/26/18 at 1326, Until Tue04/26/18 at 1630, Anesthesia Intra-op Given 04/26/2018 1:30 PM EDT 50 mg Given 04/26/2018 1:26 PM EDT 30 mg propofol (DIPRIVAN) infusion CONTINUOUS PRN, Starting on Tue04/26/18 at 1330, Until Tue04/26/18 at 1630, Anesthesia Intra-op, Routine Restarted 04/26/2018 4:06 PM EDT 100 mcg/kg/min 43.3 mL/hr Rate/Dose Change 04/26/2018 3:14 PM EDT 100 mcg/kg/min 43. 3 mL/hr New Bag 04/26/2018 1:30 PM EDT 150 mcg/kg/min 64.9 mL/h r documented in this encounter Care Teams Sheet Metal Assembler And Riveter Relationship Specialty Start Date End Date Dimas Lau MD [address] [place] [address] PCP - General 06/30/10 documented as of this encounter
--- OUTSIDE RECORDS SUMMARY | 2024-04-06 17:01 | XMS_ITS | Encounter Summary ---
[place] [address] Care Team Providers Care Locomotive Mechanic Name Role Phone Dimas Lau MD Primary Care Provider [phone] Encounter Details Date Type Department Care Team (Late st Contact Info) Description 12/19/2015 12:30 PM EDT - 12/19/2015 1:50 [place] [phone] RESOURCE, ANESTHESIA-NICHOL None MRI WITH ANESTHESIA (WRVU [...] RN) documented in this encounter Care Teams Locomotive Mechanic Relationship Specialty Start Date End Date Dimas Lau MD [address] [place] [address] PCP - General 06/30/10 documented as of this encounter
--- OUTSIDE RECORDS SUMMARY | 2024-04-06 17:01 | XMS_ITS | Encounter Summary ---
Author Organization [facility] [place] [address] Care Team Providers Care Training Instructor Name Role Phone Dimas Lau MD Primary Care Provider Encounter Details Date Type Department Care Team (Latest Contact Info) Description 01/06/2015 2:50 PM EDT - 01/06/2015 11:59 PM EDT Hospital Encounter MRI at [facility] [place] [phone] CLINIC, Denis Durham MD [facility] [place] [address] Discharge Disposition: Home Social History Tobacco Use [...] Sign Reading Time Taken Comments Blood Pressure - - Pulse - - Temperature - - Respiratory Rate - - Oxygen Saturation - - Inhaled Oxygen Concentration - - Weight 74.8 kg (165 lb) 01/06/2015 3:38 PM EDT Height - - Body Mass Index 25.84 01/06/2015 2:14 PM EDT documented in this encounter Medications at [...] Comments MRI TOTAL SPINE WITH/WO CONTRAST Routine 01/06/2015 6:00 PM EDT documented in this encounter Results * MRI total spine with/WO contrast (01/06/2015 6:00 PM EDT) Anatomical Region Laterality Modality C-spine, T-spine, L-spine Magnet ic Resonance 01/06/2015 6:00 PM EDT Impressions 01/06/2015 8:09 PM EDT IMPRESSION: No mass or abnormal enhancement to suggest neoplasm. Fatty filum terminale. Narrative 01/06/2015 8:09 PM EDT EXAMINATION: MR TOTAL SPINE W/WO GADO/ANES CLINICAL HISTORY: Neurofibromatosis there are mild discogenic degenerative changes in the cervical spine but no cord compression. follow up of known menigiomas and seeing for new tumors TECHNIQUE: MRIs of the cervical, thoracic, and lumbar spine were each obtained after the administration of 7 cc Gadavist. COMPARISON: MRI of the spine of 06/02/2003. FINDINGS: Vertebral height, alignment, and marrow signal are normal with the exception of mild dextroconvex scoliosis of the thoracic spine. Vertebral body heights and marrow signal are within normal limits. There is a fatty filum terminale without change. The spinal cord is of normal contour and signal characteristics. The termination of the conus medullaris at the level of L2 is unchanged. No enhancing mass is present within the spinal canal or neural foramina. There are minor degenerative disc osteophytes in the cervical spine but no produces more than minor effacement of the subarachnoid space. Procedure Note Denis Clayton MD - 01/06/2015 EXAMINATION: MR TOTAL SPINE W/WO GADO/ANES CLINICAL HISTORY: Neurofibromatosis there are mild discogenicdegenerative changes in the cervical spine but no cord compression. follow up ofknown menigiomas and seeing for new tumors TECHNIQUE: MRIs of the cervical, thoracic, and lumbar spine were eachobtained after the administration of 7 cc Gadavist. COMPARISON: MRI of the spine of 06/02/2003. FINDINGS: Vertebral height, alignment, and marrow signal are normal with theexception of mild dextroconvex scoliosis of the thoracic spine. Vertebral body heightsand marrow signal are within normal limits. There is a fatty filum terminalewithout change. The spinal cord is of normal contour and signal characteristics. Thetermination of the conus medullaris at the level of L2 is unchanged. No enhancing massis present within the spinal canal or neural foramina. There are minordegenerative disc osteophytes in the cervical spine but no produces more than minor effacement of the subarachnoid space. IMPRESSION IMPRESSION: No mass or abnormal enhancement to suggest neoplasm. Fatty filum terminale. Dimas Lau MD IMG MRI ORDERABLES documented in this encounter Visit Diagnoses Not on filedocumented in this encounter Administered Medications Inactive Administered Medications - up to 3 most recent administrations Medication Order MAR Action Action Date Dose Rate Site gadobutrol (GADAVIST) 1 mMol/mL injection 7.48 mL 7.48 mL (0.1 mL/kg/dose ? 74.8 kg), Intravenous, ONCE PRN, 1 dose, Starting on Tue01/06/15 at 1539, Until Tue01/06/15 at 1715, Per Protocol, Routine Given 01/06/2015 5:15 PM EDT 7.48 mLs documented in this encounter Care Teams Training Instructor Relationship Specialty Start Date End Date Dimas Lau MD [address] [place] [address] PCP - General 06/30/10 documented as of this encounter
--- OUTSIDE RECORDS SUMMARY | 2024-04-06 17:01 | XMS_ITS | Encounter Summary ---
[place] [address] Care Team Providers Care Body Shop Manager Name Role Phone Dimas Lau MD Primary Care Provider Encounter Details Date Type Department Care Team (Late st Contact Info) Description 10/27/2017 Telephone [place] [phone] Aida Marcos Social History Tobacco Use Types Packs/Day Years Used Date Smoking Tobacco: Never Alcohol Use Standard Drinks/Week Comments No 0 (1 standard drink = 0.6 oz pur e alcohol) Sex and Gender Information Value Date Recorded Sex Assigned at Not on file Gender Identity Not on file Sexual Orientation Not on file documented as of this encounter Miscellaneous Notes * Telephone Encounter - Aida Marcos - 10/27/2017 2:30 PM EDT MRI questions completed documented in this encounter Plan of Treatment Not on file documented as of this encounter Visit Diagnoses Not on filedocumented in this encounter Care Teams Body Shop Manager Relationship Specialty Start Date End Date Dimas Lau MD [address] [place] [address] PCP - General 06/30/10 documented as of this encounter
--- OUTSIDE RECORDS SUMMARY | 2024-04-06 17:01 | XMS_ITS | Encounter Summary ---
Author Organization [facility] [place] [address] Care Team Providers Care Mold Holder Name Role Phone Dimas Lau MD Primary Care Provider Reason for Visit * Reason Onset Date Comments Medical Care Coordination 06/29/2013 Pt laura y called to speak with Claudette to [facility] Encounter Details Date Type Department Care Team (Late st Contact Info) Description 06/29/2013 [place] [phone] Lorrie Hansen MD [facility] [address] [place] [address] Medical Care Coordination (Pt very called to speak with Claudette to [facility]) Social History Tobacco Use Types Packs/Day Years Used Date Smoking Tobacco: Never Assessed Sex and Gender Information Value Date Recorded Sex Assigned at Not on file Gender Identity Not on file Sexual Orientation Not on file documented as of this encounter Plan of Treatment Not on file documented as of this encounter Visit Diagnoses Not on filedocumented in this encounter Care Teams Mold Holder Relationship Specialty Start Date End Date Dimas Lau MD [address] [place] [address] PCP - General 06/30/10 documented as of this encounter
--- OUTSIDE RECORDS SUMMARY | 2024-04-06 17:01 | XMS_ITS | Encounter Summary ---
[place] [address] Care Team Providers Care Senior Java Architect Name Role Phone Dimas Lau MD Primary Care Provider [phone] Encounter Details Date Type Department Care Team (Late st Contact Info) Description 04/20/2013 [place] [phone] Lorrie Hansen MD [facility] [place] [address] Social History Tobacco Use Types Packs/Day Years Used Date Smoking Tobacco: Never Assessed Sex and Gender Information Value Date Recorded Sex Assigned at Not on file Gender Identity Not on file Sexual Orientation Not on file documented as of this encounter Plan of Treatment Not on file documented as of this encounter Visit Diagnoses Not on filedocumented in this encounter Care Teams Senior Java Architect Relationship Specialty Start Date End Date Dimas Lau MD [address] [place] [address] PCP - General 06/30/10 documented as of this encounter
--- OUTSIDE RECORDS SUMMARY | 2024-04-06 17:01 | XMS_ITS | Encounter Summary ---
[place] [address] Care Team Providers Care Supervisor Grain And Yeast Plants Name Role Phone Dimas Lau MD Primary Care Provider Encounter Details Date Type Department Care Team (Late st Contact Info) Description 11/02/2017 Telephone [place] [phone] Aida Marcos Social History Tobacco Use Types [...] * Telephone Encounter - Aida Marcos - 11/02/2017 8:48 AM EDT MRI documented in this encounter Plan of Treatment Not on file documented as of this encounter Visit Diagnoses Not on filedocumented in this encounter Care Teams Supervisor Grain And Yeast Plants Relationship Specialty Start Date End Date Dimas Lau MD [address] [place] [address] PCP - General 06/30/10 documented as of this encounter
--- OUTSIDE RECORDS SUMMARY | 2024-04-06 17:01 | XMS_ITS | Encounter Summary ---
Author Organization [facility] Address [facility] [place] [address] Care Team Providers Care Wire Taper Name Role Phone Dimas Lau MD Primary Care Provider Encounter Details Date Type Department Care Team (Late st Contact Info) Description 02/20/2016 Telephone [place] [phone] Joseline Ward APRN [facility] [address] Social History Tobacco Use Types Packs/Day Years Used Date Smoking Tobacco: Never Alcohol Use Standard Drinks/Week Comments No 0 (1 standard drink = 0.6 oz pur e alcohol) Sex and Gender Information Value Date Recorded Sex Assigned at Not on file Gender Identity Not on file Sexual Orientation Not on file documented as of this encounter Miscellaneous Notes * Telephone Encounter - Joseline Diaz APRN - 02/20/2016 2:54 PM EDT Call from patient's mother/caregiver, Kaitlin Pb, re: recommendations for recent MRI. She is also reporting that Hollis had a very difficult time mobilizing last night, to the extent that they neededto lower him to the floor. She also felt that he was exhibiting more pain behaviors than usual. Today he seems improved. I let Kaitlin know that I was unable to review his case with Dr. Lynn or Tumor Board this week, but that I will next week and will contact her. She will continue to monitor Hollis for signs of cerebellar dysfunction and may contact us with any concerns. documented in this encounter Plan of Treatment Not on file documented as of this encounter Visit Diagnoses Not on filedocumented in this encounter Care Teams Wire Taper Relationship Specialty Start Date End Date Dimas Lau MD [address] [place] [address] PCP - General 06/30/10 documented as of this encounter
--- OUTSIDE RECORDS SUMMARY | 2024-04-06 17:01 | XMS_ITS | Encounter Summary ---
[place] [address] Care Team Providers Care Overlock Hemmer Name Role Phone Dimas Lau MD Primary Care Provider 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 * Diagnostic Test (Routine) - Closed Specialty Diagnoses / Procedures Referred By Contac t Referred To Contact Radiology Diagnoses Bilateral acoustic neuromas Procedures MRI Brain With/WO Contrast (GENERIC) Joseline Ward ENGINE PILOT [facility] [place] [address] [place] [address] Referral ID Status Reason Start Date Expiration Date V isits Requested Visits Authorized [id number] Closed Specialty Service Requested 11/12/2015 11/11/2016 1 1 Reason for Visit * Diagnostic Test (Routine) - Closed Specialty Diagnoses / Procedures Referred By Contac t Referred To Contact Radiology Diagnoses Bilateral acoustic neuromas Procedures MRI Brain With/WO Contrast (GENERIC) Joseline Ward [facility] [place] [address] [place] [address] Referral ID Status Reason Start Date Expiration Date V isits Requested Visits Authorized [id number] Closed Specialty Service Requested 11/12/2015 11/11/2016 1 1 Encounter Details Date Type Department Care Team (Latest Contact Info) Description 12/19/2015 12:26 PM EDT - 12/19/2015 11:59 PM EDT Hospital [place] [address] Alex Lynn MD [facility] [address] [facility] [address] Bilateral acoustic neuromas Discharge Disposition: Home Social History Tobacco Use [...] Comments MRI BRAIN WWO CONTRAST (GENERIC) Routine 12/19/2015 2:00 PM EDT Bilateral acoustic neuromas documented in this encounter Results * MRI Brain With/WO [...] of cranial nerves documented in this encounter Administered Medications Inactive Administered Medications - up to 3 most recent administrations Medication Order MAR Action Action Date Dose Rate Site gadobutrol (GADAVIST) 1 mMol/mL injection 7 mL 7 mL, Intravenous, ONCE PRN, 1 dose, Starting on Tue12/19/15 at 1306, Until Tue12/19/15 at 1340, Per Protocol, Routine Given 12/19/2015 1:40 PM EDT 7 mLs documented in this encounter Care Teams Overlock Hemmer Relationship Specialty Start Date End Date Dimas Lau MD [address] [place] [address] PCP - General 06/30/10 documented as of this encounter
--- OUTSIDE RECORDS SUMMARY | 2024-04-06 17:01 | XMS_ITS | Continuity of Care Document ---
Author Organization [facility] Address [address] [place] [address] Care Team Providers Care Eligibility Worker Name Role Phone FREIDA STARKS Primary Care Provider [facility] OTHER [facility] OTHER Assessment Encounter Date Assessment Date Assessment LastModified by Organization Details LastModified Time 02/03/2024 02/03/2024 This appointment was conducted via [...] available Not available Lab None recorded. Referral None recorded. Procedures None recorded. Surgeries None recorded. Imaging None recorded. Medication Orders azithromy phyllis 250 mg tablet 2023 024 [facility], [address] [place], [address], 02/03/2024 15:26:55 sertralin e 50 mg tablet 2023 024 [facility], [address] [place], [address], 02/03/2024 15:26:57 Patient TargetsNo targets recorded. Patient InstructionsNo instructions recorded. 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 Clinical Tech Referral for Hype rtrophy of nail Referring Physician: Freida Starks, Family Medicine, Encounter Date: 11/07/2023 Problems Name Problem SNOMED Code Status Onset Date Resolution Date Notes Provider Name and Address Organization Details Recorded Time Profound intellec tual disabili ty 32126396 Active 2003 Problem Code: F73; Problem Code Type: ICD-10; MD [address], [place], [address] , [facility], [facility] 3 06:21:21 Onychomy cosis due to dermatop hyte 393398928 Active 2014 [facility] 4 10:37:37 Abnormal gait 75610990 Active 2016 Solher [facility]. 4 10:38:19 Pneumoni a 369051910 Completed 201612/21/2016 Problem Code: J18.9; Problem Code Type: ICD-10; [facility] 4 10:37:14 Pneumoni a 329158874 Completed 201606/07/2017 Problem Code: J18.9; Problem Code Type: ICD-10; [facility] 4 10:37:14 Muscle weakness 51701762 Active 2017 Sol [facility]. 4 10:37:28 Reduced mobility 2986182 Active 2017 Problem Code: Z74.09; Problem Code Type: ICD-10; MD [address], [place], [address] , [facility], [facility] 3 06:21:22 History of infectio us disease 907699862 Active 2018 [facility] 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 660357825 Active 2018 Problem Code: N31.9; Problem Code Type: ICD-10; MD Franco [address], [facility] [address] , [facility] 3 06:21:21 Constipa tion 92602267 Active 2020 Problem Code: K59.09; Problem Code Type: ICD-10; MD Franco [address], [facility] [address] , [facility] 3 06:21:21 Blephari tis 57460489 Active 2020 [facility] 4 10:38:13 Cough 87907688 Completed 202003/31/2021 Problem Code: R05; Problem Code Type: ICD-10; Not Available [facility] 3 05:10:29 Acute upper respirat ory infectio n 22731831 Completed 202003/31/2021 Problem Code: J06.9; Problem Code Type: ICD-10; Not Available [facility] 3 05:10:29 Pinhole meatus 36523237 Active 2021 [facility] 4 10:37:18 Neurofib romatosi s type 2 02176108 Active 2003 Problem Code: Q85.02; Problem Code Type: ICD-10; MD Franco [address], [facility] [address] , [facility] 3 06:21:22 Benign neoplasm of meninges 382993086 Active 2003 Problem Code: D32.9; Problem Code Type: ICD-10; MD Franco [address], [facility] [address] , [facility] 3 06:21:21 Retentio n of urine 266089113 Active 2003 Problem Code: R33.9; Problem Code Type: ICD-10; MD Franco [address], [facility] [address] [place] [address] 3 06:21:21 Minesh 043396354 Active 2011 Problem Code: L71.9; Problem Code Type: ICD-10; MD Franco [address], [facility] [address] [place] [address] 3 06:21:21 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 533782330 Active 2003 Problem Code: Z98.2; Problem Code Type: ICD-10; MD Franco [address], [facility] [address] [place] [address] 3 06:21:22 Urinary tract infectio us disease 69333926 Active 2003 Problem Code: N39.0; Problem Code Type: ICD-10; MD Franco [address], [facility] [address] [place] [address] 3 06:21:22 Neurofib romatosi s syndrome 65689821 Completed 200305/04/2023 Not Available [facility] 3 05:10:30 Pneumoni a 990350991 Completed 201408/26/2015 Problem Code: J18.9; Problem Code Type: ICD-10; Sol naranjo, [facility] 4 10:37:14 Mental retardat ion Completed 200305/04/2023 Not Available [facility] 3 05:10:30 Dental caries 34236210 Completed 201505/17/2016 Problem Code: K02.9; Problem Code Type: ICD-10; Not Available [facility] 3 05:10:30 Acute bronchos pasm 13703033279 100 Completed 201412/08/2015 Problem Code: J98.01; Problem Code Type: ICD-10; Not Available [facility] 3 05:10:30 Altered bowel function 77572925 Completed 201902/17/2021 Problem Code: R19.4; Problem Code Type: ICD-10; Not Available [facility] 3 05:10:31 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 309646196 Completed 200305/04/2023 Problem Code: 237.6; Problem Code Type: ICD-9; Not Available [facility] 3 05:10:31 Urethral stenosis 241342697 Active [address], [place], [address] , [facility] 3 06:21:17 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 [address], [place], [address] , [facility] 3 06:22:15 At increase d risk for aspirati on 578024393 Active [address], [place], [address] , [facility] 3 06:25:12 Neurogen ic urinary bladder 626559325 Active 2023 Solher Haynes [facility], [facility] 4 10:37:24 History of calculus of kidney 623153033 Active 2023 Sol Haynes null, [facility] 4 10:37:39 Pneumoni a 516968923 Active 2022 Problem Code: J18.9; Problem Code Type: ICD-10; Sol Ivy null, [facility] 4 10:37:13 Li catheter alf use Active 2022 Solher Haynes null, [facility] 4 10:37:42 Anxiety 26962821 Active [address], [place] 4 17:46:07 Tinea cruris 468493668 Active [address], [address] 4 17:47:47 Follicul itis 66429161 Active [address], [address] 4 17:49:09 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 Medical Equipment None Reported. Allergies Allergen ID Allergen Name Allergen Category Reaction Reaction Severity Criticality Documentation Date Start Date Code Code System Note Provider Name and Address Organization Details Recorded Time Tegretol medicatio n Not available Not available Not available 06/17/20232001 9 RxNorm Not Available [facility] 3 16:07:31 76038 sulfadiaz ine medicatio n other mild Not available 06/17/20232001 81647 RxNorm gi upset Aller gyRea ction : 'gi upset '; Not Available [facility] 3 16:07:32 15728 Risperdal medicatio n Not available Not available Not available 06/17/20232001 08095 8 RxNorm Aller gyCod e: '1249 48812 01'; Aller gyNam e: 'RISP ERDAL '; Aller gyCon ceptT ype: 'NDC' ; Not Available [facility] 3 16:07:32 18040 Neurontin medicatio n other moderate low 08/02/2023 8 RxNorm ataxi a GIANCARLO BAEZA MD [address], [place], [address] [place] [address] - [facility] 3 06:24:47 Medications Name Sig Start Date [...] as directed once a day 2021 active [facility] - Fax number Not Available [...] Printed: 01/26/2024 Information not available 01/26/2024 Assigned Bread Wrapper: Luci Yan Information not available 01/26/2024 Is [facility] The Lead Bread Wrapper? Yes Information not available 01/26/2024 Level Of [...] Yes Informa tion not available 01/26/2024 Community Business Support Specialist Yes Information not available 01/26/2024 Medication Assistance [...] virus, trivalent, preservative 05/17/2016 completed Not Available [facility] 06/17/2023 06:25:24 Influenza, split virus, quadrivalent, PF 05/11/2022 completed Not Available [facility] 06/17/2023 06:25:24 Influenza, split virus, quadrivalent, PF 05/14/2019 completed Not Available [facility] 06/17/2023 06:25:24 Influenza, split virus, quadrivalent, PF 05/19/2020 completed Not Available [facility] 06/17/2023 06:25:24 Influenza, split virus, quadrivalent, PF 06/16/2021 completed Not Available [facility] 06/17/2023 06:25:24 Influenza, split virus, quadrivalent, preservative 09/06/2018 completed Not Available [facility] 06/17/2023 06:25:24 COVID-19, mRNA, LNP-S, PF, 30 mcg/0.3 mL dose 11/04/2020 completed Not Available [facility] 06/17/2023 06:25:25 COVID-19, mRNA, LNP-S, PF, 30 mcg/0.3 mL dose 11/25/2020 completed Not Available [facility] 06/17/2023 06:25:25 COVID-19, mRNA, LNP-S, PF, 30 mcg/0.3 mL dose 05/19/2021 completed Not Available [facility] 06/17/2023 06:25:25 COVID-19, mRNA, LNP-S, PF, 30 mcg/0.3 mL dose, sabrina-sucrose 01/19/2022 completed Not Available [facility] 06/17/2023 06:25:25 COVID-19, mRNA, LNP-S, bivalent, PF, 30 mcg/0.3 mL dose 05/11/2022 completed Not Available [facility] 06/17/20 06:25:25 pneumococcal polysaccharide PPV23 05/08/2014 completed Not Available [facility] 2022 06:25:25 influenza, unspecified formulation 05/01/2014 completed Not Available [facility] 06/17/2023 06:25:25 Influenza, split virus, quadrivalent, PF 05/03/2023 completed Not Available [facility] 08/19/2023 05:31:33 COVID-19, mRNA, LNP-S, PF, sabrina-sucrose, 30 mcg/0.3 mL 05/11/2023 completed Not Available [facility] 08/19/2023 05:31:33 Past Encounters Encounter ID Performer Location Encounter Start Date Encounter Closed Date Diagnosis/Indication Diagnosis SNOMED-CT Code Diagnosis ICD10 Code [id number] FREIDA STARKS MD [address] [address] 02/03/2024 14:47:00 02/03/2024 15:32:11 Anxiety 59935978 F41.9 Atypical pneumonia 03539 6009 J18.9 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 75260029 Q93.2 Skin lesion 30411877 L98 .9 Goals Section Goal Description Status Start Date LastModified by Organization Details LastModified Time HH will be able to admit pt to their services and provide PT/OT and BOILER OPERATORS SUPERVISOR Waiting on Tarah the guardian to sign the paperwork Goal not achieved 024 LUCI YAN Information not available 01/26/2024 12:02:35 Caregivers will report signs of UTI immediately None Recorded Goal not achieved LUCI YAN Information not available 01/26/2024 12:05:17 Health Concerns Section Related Observation LastModified by Organization Detai ls LastModified Time None Recorded Concern Status LastModified by Organization Details LastModified Time None Recorded Payers Encounter Date Sequence Insurance Name Policy Number Policy Soliman Covered Member ID Soliman Member ID Guarantor Name 02/03/2024 2 [facility] (MEDICAID) Hollis Ambriz [id number] Hollis Ambriz 02/03/2024 1 [place] [employer] Hollis Ambriz [id number] Hollis Ambriz Notes Date Note Type Note Provider Name and Address Organization Details Recorded Time 02/03/2024 text/html HPI Notes: Telev ist with [...] of meningiomas, specifically R cerebellar meningioma. Has CHARGE HAND shunt from hydrocephalus after a brain surgery. OT/PT starting today. BOILER OPERATORS SUPERVISOR referral had been made before. PT will [...] and then congested cough, went to the [place] ED on Tuesday. Said he had bronchitis, doing nebs, cough medicine, claritin. Cough is not better. Almost croupy sounding. Saranya listened to his lungs and thought the lower lobes sounded abnormal. His dad is concerned for a skin lesion to his left cheek. Has been there a long time. Wants to make sure it isn't malignant. FREIDA STARKS MD [address], [place], [address], [facility]. 02/03/2024 15:40:37
--- OUTSIDE RECORDS SUMMARY | 2024-04-06 17:01 | XMS_ITS | Encounter Summary ---
Author Organization [facility] [place] [address] Care Team Providers Care Air Intercept Controller Supervisor Name Role Phone Dimas Lau MD Primary Care Provider Encounter Details Date Type Department Care Team (Latest Contact Info) Description 11/28/2012 12:51 PM EDT - 11/28/2012 11:59 PM EDT Hospital [place] [address] CLINIC, Dimas Vance MD [address] [place] [address] Discharge Disposition: Home Social History [...] Notes * Miscellaneous - Provider, Scanning - 12/05/2012 9:43 AM EDT documented in this encounter Plan of Treatment Not on file documented as of this encounter Procedures Procedure Name Priority Date/Time Associated Diagnosis Comments MRI BRAIN WWO CONTRAST (GENERIC) Routine 11/28/2012 1:45 PM EDT documented in this encounter Results * MRI brain with/WO contrast (11/28/2012 1:45 PM EDT) Anatomical Region Laterality Modality Head Magnetic Resonan ce 11/28/2012 1:45 PM EDT Narrative 11/28/2012 5:31 PM EDT Examination MR BRAIN W/WO CONTRAST/ANES Clinical History NEUROFIBROMATOSIS/PROLONGED DISTRESS BEHAVIORS (NON-VERBAL)/AGITATION ? ANY CHANGE IN KNOWN MENINGIOMAS/ACUSTIC NEUROMAS ? EVIDENCE FOR LINING CASER SHUNT MALFUNCTION Comparison MR of the brain dated 02/17/12 ?? Technique MR of the brain prior to and after the administration of intravenous contrast. ?? 14 mL of Magnevist were intravenously administered ?? Findings Postsurgical changes are present in the posterior fossa with a right parietal shunt catheter with its tip in the left lateral ventricle which is unchanged. ?? Ventricles are unchanged in size with volume loss within the right hemisphere and dilatation of the right lateral ventricle. Several extra-axial enhancing lesions within the posterior fossa are not significantly changed. The largest lesion in the posterior midline measures 14 mm. Abnormal enhancement within the right IAC measures approximately 12 mm compatible with acoustic neuroma and is unchanged. Small focus of enhancement present within the left IAC and may reflect a small schwannoma versus vessel. Several smaller extra-axial lesions of the falx, torcula, and tentorium are unchanged. Area of enhancement is present posterior to the left sphenoid sinus which is stable in size and likely representing a benign entity. ?? Impression 1. Stable size and contour of the ventricles. ?? 2. Stable appearance of meningioma and right-sided acoustic neuroma with stable focus of enhancement within the left IAC which may represent a small schwannoma versus a traversing vessel. Film and interpretation reviewed by the attending Procedure Note Quinn Garcia MD - 11/28/2012 Examination MR BRAIN W/WO CONTRAST/ANES Clinical History NEUROFIBROMATOSIS/PROLONGED DISTRESS BEHAVIORS (NON-VERBAL)/AGITATION ? ANY CHANGE IN KNOWN MENINGIOMAS/ACUSTIC NEUROMAS ? EVIDENCE FOR LINING CASER SHUNT MALFUNCTION Comparison MR of the brain dated 02/17/12 Technique MR of the brain prior to and after the administration of intravenouscontrast. 14 mL of Magnevist were intravenously administered Findings Postsurgical changes are present in the posterior fossa with a rightparietal shunt catheter with its tip in the left lateral ventricle which isunchanged. Ventricles are unchanged in size with volume loss within the righthemisphere and dilatation of the right lateral ventricle. Several extra-axialenhancing lesions within the posterior fossa are not significantly changed. Thelargest lesion in the posterior midline measures 14 mm. Abnormal enhancementwithin the right IAC measures approximately 12 mm compatible with acoustic neuromaand is unchanged. Small focus of enhancement present within the left IAC and may reflect a small schwannoma versus vessel. Several smaller extra-axiallesions of the falx, torcula, and tentorium are unchanged. Area of enhancement is present posterior to the left sphenoid sinus which is stable in size andlikely representing a benign entity. Impression 1. Stable size and contour of the ventricles. 2. Stable appearance of meningioma and right-sided acoustic neuroma withstable focus of enhancement within the left IAC which may represent a smallschwannoma versus a traversing vessel. Film and interpretation reviewed by the attending Dimas Lau MD IMG MRI ORDERABLES documented in this encounter Visit Diagnoses Not on filedocumented in this encounter Care Teams Air Intercept Controller Supervisor Relationship Specialty Start Date End Date Dimas Lau MD [address] [place] [address] PCP - General 06/30/10 documented as of this encounter
--- OUTSIDE RECORDS SUMMARY | 2024-04-06 17:01 | XMS_ITS | Encounter Summary ---
[place] [address] Care Team Providers Care Airplane Dispatcher Name Role Phone Dimas Lau MD Primary Care Provider [phone] Encounter Details Date Type Department Care Team (Late st Contact Info) Description 11/28/2012 12:05 PM EDT - 11/28/2012 1:18 [place] [id number] RESOURCE, ANESTHESIA-NICHOL None MRI WITH ANESTHESIA (WRVU [...] 11/28/2012 5:42 PM EDTAssociated Order(s): SCAN DOC: INSURANCE BILLING SPECIALIST documented in this encounter Miscellaneous Notes * Miscellaneous - Provider, Scanning - 11/28/2012 6:06 PM EDT * Miscellaneous - Provider, Scanning - 11/28/2012 11:06 AM EDT documented in this encounter Plan of Treatment Not on file documented as of this encounter Procedures Procedure Name Priority Date/Time Associated Diagnosis Comments MRI WITH ANESTHESIA (WRVU *) 11/28/2012 8:05 PM EDT Neurofibromatosis w/mengioma; ? avp shunt malformation INSURANCE BILLING SPECIALIST SCAN 11/28/2012 5:42 PM EDT documented in this encounter Results * SCAN DOC: INSURANCE BILLING SPECIALIST (11/28/2012 5:42 PM EDT) Anatomical Region Laterality [...] CRNA) documented in this encounter Care Teams Airplane Dispatcher Relationship Specialty Start Date End Date Dimas Lau MD [address] [place] [address] PCP - General 06/30/10 documented as of this encounter
--- OUTSIDE RECORDS SUMMARY | 2024-04-06 17:01 | XMS_ITS | Encounter Summary ---
[place] [address] Care Team Providers Care Director Of Sports Medicine Name Role Phone Dimas Lau MD Primary Care Provider Encounter Details Date Type Department Care Team (Late st Contact Info) Description 05/03/2018 Telephone [place] [address] Catrina Lopez Social History Tobacco Use Types Packs/Day Years [...] on filedocumented in this encounter Care Teams Director Of Sports Medicine Relationship Specialty Start Date End Date Dimas Lau MD [address] [place] [address] PCP - General 06/30/10 documented as of this encounter
--- OUTSIDE RECORDS SUMMARY | 2024-04-06 17:01 | XMS_ITS | Encounter Summary ---
Author Organization [facility] Address [facility] [place] [address] Care Team Providers Care Drill Runner Name Role Phone Dimas Lau MD Primary Care Provider [phone] Encounter Details Date Type Department Care Team (Late st Contact Info) Description 11/01/2017 Orders Only [place] [address] Joseline Ward APRN [facility] [place] [address] NF2-related schwannomatosis; Acoustic neuroma Social History Tobacco Use Types Packs/Day [...] as of this encounter Visit Diagnoses Diagnosis NF2-related schwannomatosis Acoustic neuroma Benign neoplasm of cranial nerves documented in this encounter Care Teams Drill Runner Relationship Specialty Start Date End Date Dimas Lau MD [address] [place] [address] PCP - General 06/30/10 documented as of this encounter
--- OUTSIDE RECORDS SUMMARY | 2024-04-06 17:01 | XMS_ITS | Encounter Summary ---
[place] [address] Care Team Providers Care Lab Scientist Name Role Phone Dimas Lau MD Primary Care Provider Encounter Details Date Type Department Care Team (Late st Contact Info) Description 06/27/2013 [place] [phone] Lorrie Hansen MD [facility] [address] [place] [address] Social History Tobacco Use Types Packs/Day Years Used Date Smoking Tobacco: Never Assessed Sex and Gender Information Value Date Recorded Sex Assigned at Not on file Gender Identity Not on file Sexual Orientation Not on file documented as of this encounter Plan of Treatment Not on file documented as of this encounter Visit Diagnoses Not on filedocumented in this encounter Care Teams Lab Scientist Relationship Specialty Start Date End Date Dimas Lau MD [address] [place] [address] PCP - General 06/30/10 documented as of this encounter
--- OUTSIDE RECORDS SUMMARY | 2024-04-06 17:01 | XMS_ITS | Encounter Summary ---
[place] [address] Care Team Providers Care Garment Turner Name Role Phone Dimas Lau MD Primary Care Provider 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 * Diagnostic Test (Routine) - Closed Specialty Diagnoses / Procedures Referred By Contac t Referred To Contact Radiology Diagnoses Neurofibromatosis, type 2 Loss of balance Meningioma Procedures MRI Brain With/WO Contrast (GENERIC) Dimas Lau MD [address] [place] [address] [place] [address] Referral ID Status Reason Start Date Expiration Date V isits Requested Visits Authorized [id number] Closed Specialty Service Requested 11/22/2016 11/22/2017 1 1 Reason for Visit * Diagnostic Test (Routine) - Closed Specialty Diagnoses / Procedures Referred By Contac t Referred To Contact Radiology Diagnoses Neurofibromatosis, type 2 Loss of balance Meningioma Procedures MRI Brain With/WO Contrast (GENERIC) Dimas Lau MD [address] [place] [address] [place] [address] Referral ID Status Reason Start Date Expiration Date V isits Requested Visits Authorized [id number] Closed Specialty Service Requested 11/22/2016 11/22/2017 1 1 Encounter Details Date Type Department Care Team (Latest Contact Info) Description 12/23/2016 2:50 PM EDT - 12/23/2016 11:59 PM EDT Hospital [place] [address] Dimas Lau MD [address] [place] [address] Neurofibromatosis, type 2; Loss of balance; Meningioma Discharge Disposition: Home Social History Tobacco Use [...] Comments MRI BRAIN WWO CONTRAST (GENERIC) Routine 12/23/2016 4:19 PM EDT Neurofibromatosis, type 2 Loss of balance Meningioma documented in this encounter Results * MRI Brain With/WO Contrast (GENERIC) (12/23/2016 4:19 PM EDT) Anatomical Region Laterality Modality Head Magnetic Resonan ce Impressions 12/23/2016 4:31 PM EDT Similar appearance of multiple extra-axial masses compared to the most recent prior study. No new mass effect or shift. Narrative 12/23/2016 4:31 PM EDT EXAMINATION: MRI BRAIN WWO CONTRAST (GENERIC) CLINICAL HISTORY: Neurofibromatosis, cognitive impairment, worsening balance, loss of function TECHNIQUE: MR of the brain performed prior to and following intravenous administration of 7 mL Gadavist COMPARISON: 12/19/2015, 01/06/2015, 02/25/2014 FINDINGS: The mass in the right internal auditory canal is unchanged in size or appearance compared to the previous study. Multiple extra-axial masses along the margins of the right posterior fossa are similar in size. The mass along the falx cerebelli is unchanged. Small mass along the medial surface of the left sigmoid sinus is similar. Tiny focus of enhancement at the lateral left IAC is unchanged. The mass in the right side of the falx is unchanged. Multiple extra-axial masses near the convexity on the left appear similar allowing for differences in technique. No new mass, mass effect, or shift identified.] Posterior approach ventricular catheter with its tip in the left frontal horn is unchanged. The ventricles are similar in overall size and contour. Brain parenchyma is not changed in appearance. Procedure Note Giorgio Mayes MD - 12/23/2016 EXAMINATION: MRI BRAIN WWO CONTRAST (GENERIC) CLINICAL HISTORY: Neurofibromatosis, cognitive impairment, worseningbalance, loss of function TECHNIQUE: MR of the brain performed prior to and following intravenous administration of 7 mL Gadavist COMPARISON: 12/19/2015, 01/06/2015, 02/25/2014 FINDINGS: The mass in the right internal auditory canal is unchanged insize or appearance compared to the previous study. Multiple extra-axial massesalong the margins of the right posterior fossa are similar in size. The mass alongthe falx cerebelli is unchanged. Small mass along the medial surface of theleft sigmoid sinus is similar. Tiny focus of enhancement at the lateral leftIAC is unchanged. The mass in the right side of the falx is unchanged. Multiple extra-axial masses near the convexity on the left appear similar allowingfor differences in technique. No new mass, mass effect, or shiftidentified.] Posterior approach ventricular catheter with its tip in the left frontalhorn is unchanged. The ventricles are similar in overall size and contour. Brain parenchyma is not changed in appearance. IMPRESSION Similar appearance of multiple extra-axial masses compared to the mostrecent prior study. No new mass effect or shift. Dimas Lau MD IM MRI ORDERABLES documented in this encounter Visit Diagnoses Diagnosis Neurofibromatosis, type 2 Neurofibromatosis, Type 2 (acoustic neurofibromatosis) Loss of balance Other symptoms involving nervous and musculoskeletal systems Meningioma Benign neoplasm of cerebral meninges documented in this encounter Administered Medications Inactive Administered Medications - up to 3 most recent administrations Medication Order MAR Action Action Date Dose Rate Site gadobutrol (GADAVIST) 1 mMol/mL injection 6.8 mL 6.8 mL (0.1 mL/kg/dose ? 68 kg Order-specific weight), Intravenous, ONCE PRN, 1 dose, Starting on Jennifer 12/23/16 at 1539, Until Jennifer 12/23/16 at 1619, Per Protocol, Routine Given 12/23/2016 4:19 PM EDT 7 mLs documented in this encounter Care Teams Garment Turner Relationship Specialty Start Date End Date Dimas Lau MD [address] [place] [address] PCP - General 06/30/10 documented as of this encounter
--- OUTSIDE RECORDS SUMMARY | 2024-04-06 17:01 | XMS_ITS | Encounter Summary ---
Author Organization [facility] [place] [address] Care Team Providers Care Glove Wrapper Name Role Phone Dimas Lau MD Primary Care Provider Encounter Details Date Type Department Care Team (Late st Contact Info) Description 02/13/2016 11:00 AM EDT Office Visit Audiology at [address] [phone] Jane Berrios AUD [facility] [place] [address] Bilateral acoustic neuromas; Unspecified hearing loss, bilateral Social History Tobacco Use Types Packs/Day Years Used Date Smoking Tobacco: Never Alcohol Use Standard Drinks/Week Comments No 0 (1 standard drink = 0.6 oz pur e alcohol) Sex and Gender Information Value Date Recorded Sex Assigned at Not on file Gender Identity Not on file Sexual Orientation Not on file documented as of this encounter Progress Notes * Jane Berrios AUD - 02/13/2016 11:27 AM ED[place] [address] Hollis Ambriz, 50 y.o., was seen on 02/14/2016 for an audiologic evaluation in conjunction with in Otolaryngology. Please refer to the scanned audiogram listed under Scanned Documents in Chart Review for findings, impressions and recommendations. NOTE: Attempted picture pointing for SRT but was unsuccessful. Enclosure: [place] [address] documented in this encounter Plan of Treatment Not on file documented as of this encounter Visit Diagnoses Diagnosis Bilateral acoustic neuromas Benign neoplasm of cranial nerves Unspecified hearing loss, bilateral documented in this encounter Care Teams Glove Wrapper Relationship Specialty Start Date End Date Dimas Lau MD [address] [place] [address] PCP - General 06/30/10 documented as of this encounter
--- OUTSIDE RECORDS SUMMARY | 2024-04-06 17:01 | XMS_ITS | Encounter Summary ---
[place] [address] Care Team Providers Care Holiday Detector Operator Name Role Phone Dimas aLu MD Primary Care Provider Encounter Details Date Type Department Care Team (Late st Contact Info) Description 12/23/2016 2:50 PM EDT - 12/23/2016 4:10 [place] [phone] RESOURCE, ANESTHESIA-NICHOL None MRI WITH ANESTHESIA (WRVU [...] Sign Reading Time Taken Comments Blood Pressure 105/67 12/23/2016 2:02 PM EDT Pulse 54 12/23/2016 2:02 PM EDT Temperature 36.4 ??C (97.5 ??F) 12/23/2016 2:02 PM ED T Respiratory Rate 16 12/23/2016 2:02 PM EDT Oxygen Saturation 99% 12/23/2016 2:02 PM EDT Inhaled Oxygen Concentration - - Weight 72.1 kg (159 lb) 12/23/2016 2:02 PM EDT Height 170.2 cm (5' 7) 12/23/2016 2:02 PM EDT Body Mass Index 24.9 12/23/2016 2:02 PM EDT documented in this encounter Discharge Instructions * Discharge Instructions* Colleen Sanchez RN - 12/23/2016 4:32 PM EDT POST ANESTHESIA INSTRUCTIONS Go home, [...] as of this encounter Progress Notes * Colleen Sanchez RN - 12/23/2016 5:18 PM EDT 1718- dc instructions reviewed with patients mother. Pt denies pain or nausea. Iv removed by iv team. documented in this encounter Miscellaneous Notes * Consult Note - Kevin Philip RN - 12/23/2016 5:11 PM EDT Paged to assess possible infiltration. No s/s noted on assessment. Arm measured 28cm bilat at 5cm down. Iv was removed for patient discharge. documented in this encounter Plan of Treatment Not on file documented as of this encounter Procedures Procedure Name Priority Date/Time Associated Diagnosis Comments MRI WITH ANESTHESIA (WRVU *) 12/24/2016 2:50 PM EDT neurofibromatosis type 2 documented in this encounter Visit Diagnoses Not on filedocumented in this encounter Administered Medications Inactive Administered Medications - up to 3 most recent administrations Medication Order MAR Action Action Date Dose Rate Site lactated Ringers infusion 1,000 mL 1,000 mL, at 100 mL/hr, Intravenous, CONTINUOUS, Starting on Jennifer 12/23/16 at 1430, Until Jennifer 12/23/16 at 1919, Day of Surgery (Day of Procedure) New Bag 12/23/2016 3:21 PM EDT lidocaine (XYLOCAINE) 10 mg/mL (1 %) injection 3 mg 3 mg (0.3 mL), Subcutaneous, ONCE PRN, 1 dose, Starting on Jennifer 12/23/16 at 1406, Until Jennifer 12/23/16 at 1919, for discomfort with PIV insertion, Day of Surgery (Day of Procedure), Routine sodium chloride 0.9 % flush 5-20 mL 5-20 mL, Intravenous, EVERY 1 MIN PRN, Starting on Jennifer 12/23/16 at 1406, Until Jennifer 12/23/16 at 1919, flush, Flush pertains to all indwelling lines. Flush per protocol found in the job aid using the link provided on this medication record., Day of Surgery (Day of Procedure), Routine documented in this encounter Active and Recently Administered Medications Times are shown in EDT. Continuous Medication Order 12/21/2016 12/22/2016 12/23/2016 lactated Ringers infusion 1,000 mL 1,000 mL, at 100 mL/hr, Intravenous, CONTINUOUS, Starting on Jennifer 12/23/16 at 1430, Until Jennifer 12/23/16 at 1919, Day of Surgery (Day of Procedure) 1521 (New Bag - Prov ider: Alicia Randolph CRNA)1530 (Anesthesia Volume Adjustment - Provider: Alicia Randolph CRNA)1620 (Stopped - Provider: Brittney Saleem CRNA) PRN Medication Order 12/21/2016 12/22/2016 12/23/2016 lidocaine (XYLOCAINE) 10 mg/mL (1 %) injection 3 mg 3 mg (0.3 mL), Subcutaneous, ONCE PRN, 1 dose, Starting on Jennifer 12/23/16 at 1406, Until Jennifer 12/23/16 at 1919, for discomfort with PIV insertion, Day of Surgery (Day of Procedure), Routine sodium chloride 0.9 % flush 5-20 mL 5-20 mL, Intravenous, EVERY 1 MIN PRN, Starting on Jennifer 12/23/16 at 1406, Until Jennifer 12/23/16 at 1919, flush, Flush pertains to all indwelling lines. Flush per protocol found in the job aid using the link provided on this medication record., Day of Surgery (Day of Procedure), Routine documented in this encounter Care Teams Holiday Detector Operator Relationship Specialty Start Date End Date Dimas Lau MD [address] [place] [address] PCP - General 06/30/10 documented as of this encounter
--- OUTSIDE RECORDS SUMMARY | 2024-04-06 17:01 | XMS_ITS | Encounter Summary ---
Author Organization [facility] [place] [address] Care Team Providers Care Wallpaper Installer Name Role Phone Dimas Lau MD Primary Care Provider Encounter Details Date Type Department Care Team (Late st Contact Info) Description 05/04/2018 Telephone [place] [address] Chelsey Hill, RN Social History Tobacco Use Types Packs/Day Years Used Date Smoking Tobacco: Never Alcohol Use Standard Drinks/Week Comments No 0 (1 standard drink = 0.6 oz pur e alcohol) Sex and Gender Information Value Date Recorded Sex Assigned at Not on file Gender Identity Not on file Sexual Orientation Not on file documented as of this encounter Miscellaneous Notes * Telephone Encounter - Chelsey Hill RN - 05/04/2018 10:07 AM EDT Brennan from [facility] ([phone] ext [phone]) phoned to inquire if Dr. Dimas Lau (PCP) can monitor for signs of cerebellar/neuro dysfunction and may contact us with any concerns. Dr. Lau has been ordering yearly Brain MRI scans for Hollis at this point in time. Hollis was last seen in the ENT clinic ([facility] specialty clinic) on 02/13/[address] Ball. His mother cancelled his follow-up for May 05 in the acoustic neuroma clinic with Dr. Ball. Reasoning: Things have been stable and ENT/neurosurg has been just utilizing conservative observation treatment. The family also has to come from a distance and with Hollis's neurological history this traveling is inconvenient. 04/26/2018: MRI Brain w/wo contrast: IMPRESSION Similar appearance of multiple presumed meningioma as and right acoustic Plan: Spoke to DR. Ball who will also review the recent MRI of Brain Feels it should be Ok for PCP to monitor and order MRI imaging ENT to be consulted if any change in symptoms as discusses Discussed if we aren't actively following Hollis it makes it more difficult to advise if problems arise and we have no ongoing therapeutic relationship. neuroma. Multiple small nodular areas of enhancement along the use of the cauda equina. These may represent small schwannoma. documented in this encounter Plan of Treatment Not on file documented as of this encounter Visit Diagnoses Not on filedocumented in this encounter Care Teams Wallpaper Installer Relationship Specialty Start Date End Date Dimas Lau MD [address] [place] [address] PCP - General 06/30/10 documented as of this encounter
--- OUTSIDE RECORDS SUMMARY | 2024-04-06 17:01 | XMS_ITS | Encounter Summary ---
[place] [address] Care Team Providers Care Supervisory Examiner Name Role Phone Dimas Lau MD Primary Care Provider Encounter Details Date Type Department Care Team (Late st Contact Info) Description 03/17/2018 Telephone [place] [phone] Catrina Lopez Social History Tobacco Use Types [...] on filedocumented in this encounter Care Teams Supervisory Examiner Relationship Specialty Start Date End Date Dimas Lau MD [address] [place] [address] PCP - General 06/30/10 documented as of this encounter
--- OUTSIDE RECORDS SUMMARY | 2024-04-06 17:01 | XMS_ITS | Encounter Summary ---
[place] [address] Care Team Providers Care Switch Technician Name Role Phone Dimas Lau MD Primary Care Provider Encounter Details Date Type Department Care Team (Late st Contact Info) Description 11/03/2017 Telephone [place] [phone] Aida Marcos Social History Tobacco Use Types [...] * Telephone Encounter - Aida Marcos - 11/03/2017 2:32 PM EDT MRI confirmation questions documented in this encounter Plan of Treatment Not on file documented as of this encounter Visit Diagnoses Not on filedocumented in this encounter Care Teams Switch Technician Relationship Specialty Start Date End Date Dimas Lau MD [address] [place] [address] PCP - General 06/30/10 documented as of this encounter
--- OUTSIDE RECORDS SUMMARY | 2024-04-06 17:01 | XMS_ITS | Encounter Summary ---
Author Organization [facility] [place] [address] Care Team Providers Care Tar Leveler Name Role Phone Dimas Lau MD Primary Care Provider Encounter Details Date Type Department Care Team (Late st Contact Info) Description 11/12/2015 Orders [place] [phone] Alex Lynn MD [facility] [place] [address] Social History Tobacco Use Types Packs/Day Years [...] on filedocumented in this encounter Care Teams Tar Leveler Relationship Specialty Start Date End Date Dimas Lau MD [address] [place], [place] [address] PCP - General 06/30/10 documented as of this encounter
--- OUTSIDE RECORDS SUMMARY | 2024-04-06 17:01 | XMS_ITS | Encounter Summary ---
Author Organization [facility] [place] [address] Care Team Providers Care Supervisor Product Inspection Name Role Phone Dimas Lau MD Primary Care Provider Encounter Details Date Type Department Care Team (Late st Contact Info) Description 12/23/2016 3:19 PM [place] [phone] Duncan Aponte MD [facility] [place] [address] Anesthesia Record Procedure Summary Procedure Name Responsible Anesthesiologist Anesthesia Start Time Anesthesia Stop Time MRI WITH ANESTHESIA (WRVU *) (Brain) Duncan Aponte MD 12/23/16 1519 12/23/16 1629 Events Date Time Event Comment 12/23/2016 1442 1519 Start 1521 AN Verify 1521 An Start Data 1532 Anesthesia Ready 1541 Quick Note Entered MRI kuldeep m to assess IV and treat BP. Palpable trill felt as IV flushed. 1618 Quick Note Pt to MRI alcov e via MRI table. Area of discoloration noted around IV site. IV discontinued, monitoring site. 1620 an stop data 1629 Recovery or ICU Handoff Giovanna ent care was transferred to the destination unit staff after review of the patient's medical history, current anesthetic/surgical status and plan, according to the Provider Handoff Checklist. Pt to SD 42 via wheeled stretcher, VSS, pt exchanging well. Report given to RN, questions answered. RN states will contact IV therapy team prior to discharge to assess IV site and address any pt needs. 1629 Stop Meds Name Total Propofol 100 mg Propofol INF 454.23 mg ePHEDrine 5 mg lactated Ringers infusion 1,000 mL 100 m L * Agents Name O2 Auxiliary Flowmeter 1 * Blood No blood administrations on file. Lines, Drains, and Airways Type Details Placement Removal Supraglottic Oral Airway: 100 mm (5); Nasopharyngeal Size: 32 Fr; Inserted by: st. child[facility] 01/06/15 1544 by Tarah Montes CRNA (RETIRED) Peripheral IV Line - Single Lumen 12/23/16; 1540; other (see comments) (right upper arm); [id number]-[id number] catheter system; 22 gauge; 12/23/16; 1711 12/23/16 1540 by Alicia Randolph CRNA 12/23/16 1711 by Kevin Philip RN documented in this encounter Social History [...] OR Notes * Anesthesia Postprocedure Evaluation - Duncan Aponte MD - 12/23/2016 5:38 PM EDT [facility] Department of Anesthesiology Post-procedure Note Patient: Hollis Ambriz Procedure Summary Date Anesthesia Start Anesthesia Stop Room / Location 12/23/16 7604 1621 [facility] ADULT RADIOLOGY / [facility] Procedure Diagnosis Surgeon Responsible Provider MRI WITH ANESTHESIA (WRVU *) (N/A Brain) (neurofibromatosis type 2) RESOURCE, ANESTHESIA-Duncan Lerner MD All Anesthesia Providers: Anesthesiologist: Duncan Aponte MD TRAILER BODY ASSEMBLER: Aliica Randolph CRNA; Brittney Catherine CRNA Last (1hr) Vitals: BP 112/73 (12/23/16 1700) Temp Pulse Resp 16 (12/23/16 1700) SpO2 99 % (12/23/16 1700) Patient Location: PACU/[facility] Level of Consciousness: Awake and Alert Pain Management: Satisfactory Analgesia PONV: None Cardiovascular Status: At Baseline and Hemodynamically Stable Respiratory Status: At Baseline and Room Air Postoperative Fluid Status: Intravascular EUvolemia Possible Anesthetic Complications: NONE apparent at time of evaluation Final Primary Anesthesia Type: MAC (The anesthetic type performed was the same as planned.) Comments: At baseline mental status Duncan Aponte MD * Anesthesia Preprocedure Evaluation - Duncan Aponte MD - 12/23/2016 11:31 AM EDT Pre-Anesthesia Evaluation for: Hollis Ambriz a 51 y.o. male. Procedure(s): MRI WITH ANESTHESIA (WRVU *) Patient Active Problem List Diagnosis ??? Neurofibromatosis, type 2 (acoustic neurofibromatosis) Past [...] PROCEDURE 11/28/2012 MRI WITH ANESTHESIA performed by Resource, Anesthesia-Guillermina at [facility] ??? PRG UNLISTED MRI PROCEDURE 02/25/2014 MRI WITH ANESTHESIA performed by Resource, Anesthesia-Guillermina at [facility] ??? PRG UNLISTED MRI PROCEDURE N/A 01/06/2015 MRI WITH ANESTHESIA performed by RESOURCE, ANESTHESIA-GUILLERMINA at [facility] ??? PRG UNLISTED MRI PROCEDURE N/A 12/19/2015 MRI WITH ANESTHESIA performed by RESOURCE, ANESTHESIA-GUILLERMINA at [facility] Social History Substance Use Topics ??? Smoking [...] or weight on file to calculate BMI. Anesthesia Physical Exam Anesthesia Plan: ASA 3 MAC, 51yo male presenting for yearly screening MRI for neurofibromatosis type 2. Has tolerated prior MRIs with propofol sedation. Plan for propofol MAC. Informed Consent: PAT Staff Note documented in this encounter Plan of Treatment Not on file documented as of this encounter Visit Diagnoses Not on filedocumented in this encounter Administered Medications Inactive Administered Medications - up to 3 most recent administrations Medication Order MAR Action Action Date Dose Rate Site ePHEDrine 5 mg/mL multi-dose injection PRN, Starting on Jennifer 12/23/16 at 1541, Until Jennifer 12/23/16 at 1638, Anesthesia Intra-op, Routine Given 12/23/2016 3:41 PM EDT 5 mg lactated Ringers infusion 1,000 mL 1,000 mL, at 100 mL/hr, Intravenous, CONTINUOUS, Starting on Jennifer 12/23/16 at 1430, Until Jennifer 12/23/16 at 1919, Day of Surgery (Day of Procedure) New Bag 12/23/2016 3:21 PM EDT propofol (DIPRIVAN) 10 mg/mL bolus injection (Anesthesia) PRN, Starting on Jennifer 12/23/16 at 1527, Until Jennifer 12/23/16 at 1638, Anesthesia Intra-op Given 12/23/2016 3:29 PM EDT 50 mg Given 12/23/2016 3:27 PM EDT 50 mg propofol (DIPRIVAN) infusion CONTINUOUS PRN, Starting on Jennifer 12/23/16 at 1529, Until Jennifer 12/23/16 at 1638, Anesthesia Intra-op, Routine Rate/Dose Change 12/23/2016 3:56 PM EDT 150 mcg/kg/min 64.9 mL/hr Rate/Dose Change 12/23/2016 3:32 PM EDT 125 mcg/kg/min 54. 1 mL/hr New Bag 12/23/2016 3:29 PM EDT 150 mcg/kg/min 64.9 mL/h r documented in this encounter Care Teams Supervisor Product Inspection Relationship Specialty Start Date End Date Dimas Lau MD [address] [place] [address] PCP - General 06/30/10 documented as of this encounter
--- OUTSIDE RECORDS SUMMARY | 2024-04-06 17:01 | XMS_ITS | Encounter Summary ---
Author [place] [address] Care Team Providers Care Outreach Manager Name Role Phone Dimas Lau MD Primary Care Provider Encounter Details Date Type Department Care Team (Late st Contact Info) Description 02/24/2016 Telephone [place] [phone] Yolie Yoo RN Social History Tobacco Use Types Packs/Day Years Used Date Smoking Tobacco: Never Alcohol Use Standard Drinks/Week Comments No 0 (1 standard drink = 0.6 oz pur e alcohol) Sex and Gender Information Value Date Recorded Sex Assigned at Not on file Gender Identity Not on file Sexual Orientation Not on file documented as of this encounter Miscellaneous Notes * Telephone Encounter - Yolie Yoo RN - 02/24/2016 3:25 PM EDT In f/u to a phone encounter last week between Joseline Diaz APRN with Kaitlin Ambriz regarding recommendations for recent MRI. Joseline asked me to f/u with Dr. Lynn while she is away. I let Kaitlin know Dr. Lynn reviewed the MRI and reports minimal enlargement (~2mm). He does not recommend treatment at this time. If it growssubstantially, then he recommends surgery as the best option. She voiced understanding and accepting this information. documented in this encounter Plan of Treatment Not on file documented as of this encounter Visit Diagnoses Not on filedocumented in this encounter Care Teams Outreach Manager Relationship Specialty Start Date End Date Dimas Lau MD [address] [place] [address] PCP - General 06/30/10 documented as of this encounter
--- OUTSIDE RECORDS SUMMARY | 2024-04-06 17:01 | XMS_ITS | Encounter Summary ---
Author Organization [facility] [place] [address] Care Team Providers Care Resistance Welding Machine Operator Name Role Phone Dimas Lau MD Primary Care Provider Encounter Details Date Type Department Care Team (Latest Contact Info) Description 04/26/2018 11:03 AM EDT - 04/26/2018 5:52 PM EDT Hospital Encounter [place] [id number] Jerry, Danny Palacios MD [facility] [place] [address] Discharge Disposition: Home Social History Tobacco Use [...] CRNA) documented in this encounter Care Teams Resistance Welding Machine Operator Relationship Specialty Start Date End Date Dimas Lau MD [address] [place] [address] PCP - General 06/30/10 documented as of this encounter
--- OUTSIDE RECORDS SUMMARY | 2024-04-06 17:01 | XMS_ITS | Encounter Summary ---
[place] [address] Care Team Providers Care Rv Detailer Name Role Phone Dimas Lau MD Primary Care Provider Encounter Details Date Type Department Care Team (Latest Contact Info) Description 12/23/2016 1:39 PM EDT - 12/23/2016 5:19 PM EDT Hospital Encounter [place] [phone] Duncan Aponte MD [facility] [address] ANESTHESIOLOGY DEPT [place] [id number] Discharge Disposition: Home Social History Tobacco Use [...] Sign Reading Time Taken Comments Blood Pressure 112/73 12/23/2016 5:00 PM EDT Pulse 54 12/23/2016 2:02 PM EDT Temperature 36.6 ??C (97.9 ??F) 12/23/2016 4:23 PM ED T Respiratory Rate 16 12/23/2016 5:00 PM EDT Oxygen Saturation 99% 12/23/2016 5:00 PM EDT Inhaled Oxygen Concentration - - [...] Routine documented in this encounter Care Teams Rv Detailer Relationship Specialty Start Date End Date Dimas Lau MD [address] [place] [address] PCP - General 06/30/10 documented as of this encounter
--- OUTSIDE RECORDS SUMMARY | 2024-04-06 17:02 | XMS_ITS | Clinical Summary ---
Author Organization [facility] Address [address] [place] [address] Care Team Providers Care Bridge Contractor Name Role Phone Dimas Lau MD Primary Care Provider [phone] Social History Tobacco Use Types Packs/Day Years Used Date Smoking Tobacco: Never Assessed Sex and Gender Information Value Date Recorded Sex Assigned at Not on file Gender Identity Not on file Sexual Orientation Not on file Plan of Treatment Health Maintenance Due Date Last Done Comments Hepatitis C Screen 1965 Hepatitis B Vaccine (1 of 3 - 19+ 3-dose series) 10/24 COVID-19 Vaccine (2022-24 season) 2023 Care Teams Bridge Contractor Relationship Specialty Start Date End Date Dimas Lau MD [address] [place] [address] PCP - General 06/18/15
--- OUTSIDE RECORDS SUMMARY | 2024-04-06 17:02 | XMS_ITS | Encounter Summary ---
[place] [address] Care Team Providers Care Dermatology Nurse Practitioner Name Role Phone Dimas Lau MD Primary Care Provider [phone] Encounter Details Date Type Department Care Team (Late st Contact Info) Description 12/25/2010 9:20 AM EDT - 12/25/2010 11:59 PM EDT Hospital En[place] [phone] Social History Tobacco Use Types Packs/Day Years Used Date Smoking Tobacco: Never Assessed Sex and Gender Information Value Date Recorded Sex Assigned at Not on file Gender Identity Not on file Sexual Orientation Not on file documented as of this encounter Last Filed Vital Signs Vital Sign Reading Time Taken Comments Blood Pressure 122/90 12/25/2010 1:15 PM EDT Pulse 89 12/25/2010 1:15 PM EDT Temperature 36.7 ??C (98.1 ??F) 12/25/2010 12:58 PM E DT Respiratory Rate 18 12/25/2010 1:15 PM EDT Oxygen Saturation 93% 12/25/2010 1:15 PM EDT Inhaled Oxygen Concentration - - Weight - - Height - - Body Mass Index - - documented in this encounter Medications at Time of Discharge Medication Sig Dispensed Refills Start Date End Date LORazepam (ATIVAN) 1 mg tablet 01/28/2010 docusate sodium (COLACE) 100 mg capsule 01/28/2010 mineral oil liquid 01/28/2010 propoxyphene-acetaminophen (DARVOCET-N 100) 100-650 mg per tablet 1 Tablet(s), PO, Q6H PRN 01/28/2010 10/31/2012 documented as of this encounter Progress Notes * Asya Pope RN - 12/25/2010 1:49 PM EDT 0 is incorrect. No NVPS score needed. Please see nonverbal assessment. 12/25/10 1315 Nonverbal Pain Scale NVPS Score 0 * Quinn Garcia MD - 12/25/2010 10:10 AM EDT Subjective: Patient ID: Yuriy Alcantar is a 45 y.o. male. HPI Pt here for IV sedation for MRI Review of Systems Objective: Physical Exam CTAB RRR ASA 1 Mallampati 2 Assessment and Plan: IV sedation No problem-specific visit notes found for this encounter. * Carina Shukla RN - 12/22/2010 10:21 AM EDT [facility] NURSING DATABASE Name: YURIY ALCANTAR Date of : 1965 [address]: [address] [place] [address] (home) Referring Provider: Dimas Lau Reason for Visit: MRI with IV sedation Allergies Allergen Reactions ??? Carbamazepine CIS - diarrhea ??? Sulfa (Sulfonamide Antibiotics) CIS - Nausea/Vomiting ??? 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 Pertinent PSH: POT FISHER shunt 1994 Resected menigioma 1994 Date/Procedure Comments: 12/24/05 MRI with IV sedation [...] MRI brain/IV sedation Versed 5mg/Fentanyl 250mcg IV Laboratory Results: No results found for [...] Q6H PRN 01/28/10 documented in this encounter Plan of Treatment Not on file documented as of this encounter Visit Diagnoses Not on filedocumented in this encounter Administered Medications Inactive Administered Medications - up to 3 most recent administrations Medication Order MAR Action Action Date Dose Rate Site fentaNYL (PF) 50 mcg/mL injection 1 dose, Starting on Tue12/25/10 at 1038, Until Tue12/25/10 at 1045, CARINA SHUKLA: Cabinet Override fentaNYL 50mcg/mL injection 25-50 mcg, Intravenous, EVERY 5 MIN PRN, Starting on Tue12/25/10 at 0820, Until Tue12/25/10 at 1305, Pain, Angio/IR (Day of Procedure), Routine Given 12/25/2010 10:45 AM EDT 250 mcg midazolam (VERSED) injection 0.5-1 mg 0.5-1 mg, Intravenous, EVERY 5 MIN PRN, Starting on Tue12/25/10 at 0820, Until Tue12/25/10 at 1304, Sleep, Angio/IR (Day of Procedure), Routine Given 12/25/2010 1:03 PM EDT 5 mg documented in this encounter Care Teams Dermatology Nurse Practitioner Relationship Specialty Start Date End Date Dimas Lau MD [address] [place] [address] PCP - General 06/30/10 documented as of this encounter
--- OUTSIDE RECORDS SUMMARY | 2024-04-06 17:02 | XMS_ITS | Encounter Summary ---
Author Organization [facility] Address [address] [place] [address] Care Team Providers Care Vat Skimmer Name Role Phone Unavailable Primary Care Provider Unavailabl e Encounter Details Date Type Department Care Team (Late st Contact Info) Description 06/07/2006 Results Only [facility] [address] [place] [address] Boyd Márquez, DO [address] [facility] [address] [place] [address] Social History Tobacco Use Types Packs/Day Years Used Date Smoking Tobacco: Never Assessed Sex and Gender Information Value Date Recorded Sex Assigned at Not on file Gender Identity Not on file Sexual Orientation Not on file documented as of this encounter Plan of Treatment Not on file documented as of this encounter Procedures Procedure Name Priority Date/Time Associated Diagnosis Comments SURGICAL PATHOLOGY Routine 06/07/2006 0:00 EST documented in this encounter Results * SURGICAL PATHOLOGY (06/07/2006 0:00 EST) Pathology Report: SURGICAL PATHOLOGY REPORT Reports generated via electronic interface contain original data; however they are lacking the format of the original report. Caution should be taken when reading/interpreti ng unformatted reports. Name: ? YURIY ALCANTAR ? Accession #: ? [id number] ? : ? 1965 (Age: 40) ??M ? Collect Date: ? 06/07/2006 ? Location: ? [facility] ? Receive Date: ? 06/08/2006 ? Provider: BOYD MÁRQUEZ DO Copy to: GIANCARLO BAEZA MD ? Final Pathologic Diagnosis: A. ?Terminal ileum, biopsy: 1. ?Intestinal mucosa (1 piece) with prominent submucosal lymphoid aggregate. B. ?Colon, ascending, biopsy: 1. ?Colonic mucosa (1 piece) with no specific pathologic features. C. ?Colon, transverse, biopsy: 1. ?Colonic mucosa (1 piece) with no specific pathologic features. D. ?Colon, descending, biopsy: 1. ?Colonic mucosa (1 piece) with no specific pathologic features. E. ?Colon, sigmoid, biopsy: 1. ?Colonic mucosa (1 piece) with no specific pathologic features. F. ?Rectum, biopsy: 1. ?Colorectal mucosa (1 piece) with no specific pathologic features. Document reviewed and electronically signed by: Norm Davidson MD Report ??Date: 06/10/2006 07:57 By the signature above, the attending physician certifies that he/she has personally conducted a gross and/or microscopic examination of the described specimens and rendered or confirmed the above diagnosis. Specimen(s) Received: A. ?Bx terminal ileum (#1) B. ? Bx ascending colon (#2) C. ? Transverse colon bx (#3) D. ? Descending colon bx (#4) E. ? Bx sigmoid (#5) F. ? Bx rectum (#6) Clinical History: ? Change in bowel habits; worsening constipation Gross Description: ? Received in Hollande' s fixative labelled Alcantar and terminal ileum is a soliman-pink 0.3 x 0.2 x 0.2 cm soft tissue fragment. ??The specimen is entirely submitted as (A). Received in [place]e' s fixative labelled Alcantar and ascending colon is a soliman-pink 0.3 x 0.2 x 0.2 cm soft tissue fragment. ??The specimen is entirely submitted as (B). Received in Hollande' s fixative labelled Alcantar and bx transverse colon is a soliman-pink 0.5 x 0.2 x 0.2 cm soft tissue fragment. ??The specimen is entirely submitted as (C). Received in Hollande' s fixative labelled Alcantar and descending colon is a soliman-pink 0.3 x 0.2 x 0.2 cm soft tissue fragment. ??The specimen is entirely submitted as (D). Received in Hollande' s fixative labelled Alcantar and bx sigmoid is a soliman-pink 0.2 x 0.2 x 0.2 cm soft tissue fragment. ??The specimen is entirely submitted as (E). Received in Hollande' s fixative labelled Alcantar and bx rectum is a soliman-pink 0.2 x 0.2 x 0.2 cm soft tissue fragment. ??The specimen is entirely submitted as (F). ??([facility])/[facility] End of Report SULEMA GONZÁLES 06/07/2006 06/08/2006 10: 26 EST Boyd Márquez DO PATHOLOGY ORDER ESTRELLITA SULEMA GONZÁLES [address] [place] [address] documented in this encounter Visit Diagnoses Not on filedocumented in this encounter
--- OUTSIDE RECORDS SUMMARY | 2024-04-06 17:02 | XMS_ITS | Encounter Summary ---
Author Organization [facility] [place] [address] Care Team Providers Care Android Software Engineer Name Role Phone Dimas Lau MD Primary Care Provider Encounter Details Date Type Department Care Team (Latest Contact Info) Description 12/25/2010 9:19 AM EDT - 12/25/2010 11:59 PM EDT Hospital [place] [address] CLINIC, Dimas Vance MD [address] [place] [address] Discharge Disposition: Home Social History [...] - - Weight 74.8 kg (165 lb) 12/25/2010 6:20 AM EDT Height - - Body Mass Index - - documented in this encounter Medications at Time of Discharge Medication Sig Dispensed Refills Start Date End Date LORazepam (ATIVAN) 1 mg tablet 01/28/2010 docusate sodium (COLACE) 100 mg capsule 01/28/2010 mineral oil liquid 01/28/2010 propoxyphene-acetaminophen (DARVOCET-N 100) 100-650 mg per tablet 1 Tablet(s), PO, Q6H PRN 01/28/2010 10/31/2012 documented as of this encounter Miscellaneous Notes * Miscellaneous - Provider, Scanning - 01/15/2011 8:42 AM EDT * Miscellaneous - Provider, Scanning - 01/01/2011 1:08 PM EDT documented in this encounter Plan of Treatment Not on file documented as of this encounter Procedures Procedure Name Priority Date/Time Associated Diagnosis Comments MRI BRAIN WWO CONTRAST (GENERIC) Routine 12/25/2010 12:49 PM EDT documented in this encounter Results * MRI BRAIN WITH/WO CONTRAST (12/25/2010 12:49 PM EDT) Anatomical Region Laterality Modality Head Magnetic Resonan ce 12/25/2010 12:4 9 PM EDT Impressions 12/29/2010 7:51 AM EDT IMPRESSION: Overall, little change from the most recent previous study done 01/30/10. The lesions are definitely larger than on the previous study done 06/25/09. Narrative 12/29/2010 7:51 AM EDT MRI OF THE BRAIN WITH AND WITHOUT CONTRAST: INDICATION: ??History of neurofibromatosis with meningiomas. Evaluate. TECHNIQUE: ??Pre- and postcontrast MR imaging of the brain was performed. ?? CONTRAST: ??16 cc of Magnevist was given without difficulty. ?? COMPARISON: ??Direct comparison made to the prior study done 01/30/10. ?? 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 Overall, the lesions are nearly identical size to the previous study performed 01/30/10. The right IAC lesion appears approximately the same measuring 13 mm in greatest dimension. The lesion just below the trochlea also appears fairly similar in size from the most recent previous study. The multiple small parafalcine tumors are stable. Ventricular size is stable. ?? Procedure Note Denis Lopez MD - 12/29/2010 MRI OF THE BRAIN WITH AND WITHOUT CONTRAST: INDICATION: History of neurofibromatosis with meningiomas. Evaluate. TECHNIQUE: Pre- and postcontrast MR imaging of the brain was performed. CONTRAST: 16 cc of Magnevist was given without difficulty. COMPARISON: Direct comparison made to the prior study done 01/30/10. FINDINGS: There are multiple enhancing extraaxial masses in the brain consistent with meningiomas, as well as an IAC mass on the right side,which is likely an acoustic schwannoma. Overall, the lesions are nearly identicalsize to the previous study performed 01/30/10. The right IAC lesion appears approximately the same measuring 13 mm in greatest dimension. The lesionjust below the trochlea also appears fairly similar in size from the mostrecent previous study. The multiple small parafalcine tumors are stable.Ventricular size is stable. IMPRESSION IMPRESSION: Overall, little change from the most recent previous study done 01/30/10.The lesions are definitely larger than on the previous study done 06/25/09. Dimas Lau MD IMG MRI ORDERABLES documented in this encounter Visit Diagnoses Not on filedocumented in this encounter Administered Medications Inactive Administered Medications - up to 3 most recent administrations Medication Order MAR Action Action Date Dose Rate Site gadopentetate dimeglumine (MAGNEVIST) 10 mmol/20 mL (469.01 mg/mL) injection 14.96 mL 14.96 mL (0.2 mL/kg/dose ? 74.8 kg), Intravenous, ONCE PRN, 1 dose, Starting on Tue12/25/10 at 0620, Until Tue12/25/10 at 1231, Per Protocol, Routine Given 12/25/2010 12:31 PM EDT 14.96 mLs documented in this encounter Care Teams Android Software Engineer Relationship Specialty Start Date End Date Dimas Lau MD [address] [place] [address] PCP - General 06/30/10 documented as of this encounter
--- OUTSIDE RECORDS SUMMARY | 2024-04-06 17:02 | XMS_ITS | Encounter Summary ---
Author Organization [facility] Address [facility] [place] [address] Care Team Providers Care Curatorial Specialist Name Role Phone Dimas Lau MD Primary Care Provider [phone] Encounter Details Date Type Department Care Team (Late st Contact Info) Description 12/13/2008 Orders [place] [address] Deshawn Mcgregor MD [facility] [place] [address] Social History Tobacco Use Types Packs/Day Years Used Date Smoking Tobacco: Never Assessed Sex and Gender Information Value Date Recorded Sex Assigned at Not on file Gender Identity Not on file Sexual Orientation Not on file documented as of this encounter Plan of Treatment Not on file documented as of this encounter Procedures Procedure Name Priority Date/Time Associated Diagnosis Comments SURGICAL PATHOLOGY REPORT Routine 12/13/2008 8:02 PM EDT documented in this encounter Results * Surgical Pathology Report (12/13/2008 8:02 PM EDT) Surgical Pathology Report [id number] ? Location: [facility] The signing pathologist has (i) examined the relevant preparation(s) for the specimen(s) and (ii) rendered or confirmed the diagnosis(es). . ?Pathology Surgical Pathology Final Report Clinical Information Specimen Submitted: A - Scalp Mass: Scalp B - Scalp Lesion: Scalp C - Neck Mass: Neck Clinical History: Not provided Clinical Diagnosis: Soft tissue mass Gross Description A - Labeled/Fixative : Scalp mass, fresh. Qty/Size/Weight: ?Single. Tissue Description: ?? The specimen consists of a single spherical nodule, ?2.8 x 2.7 x 2.4 cm, underlying an ellipse of soliman-pink, unremarkable skin, 4.7 x 1.5 cm. ??The spherical nodule is inked black and is serially sectioned to reveal a cystic internal structure, peripherally firm and soliman. ??The central area of the spherical cyst consists of soliman, grumous material. Sections/Process ing: ??The specimen is serially sectioned and submitted in ?(A1-A8). ??(T8) B - Labeled/Fixative : Scalp lesion #2, fresh. Qty/Size/Weight: ?Single, 1.6 x 1.1 x 1.0 cm. Tissue Description: ?? The specimen consists of a roughly ovoid mass that is ?firm in character, underlying unremarkable soliman skin. ??On cut surface the mass has a mock center with an ivory-white rim. ??The mass is well circumscribed and located within subcutaneous soft tissue. Sections/Process ing: ??The specimen is inked and serially sectioned. ??(T2) C - Labeled/Fixative : Neck mass, fresh. Qty/Size/Weight: ?Single, 1.7 x 1.5 x 1.2 cm. Tissue Description: ?? The specimen consists of an ovoid, firm tissue mass, ?underlying pink-soliman, unremarkable skin. ??The specimen is inked and serially sectioned to reveal a semiopaque, white cut surface focally with areas of yellow-white, flaky central areas. Sections/Process ing: ??The specimen is inked black and serially sectioned. ?(T2) ??aje/MLB Microscopic Description Slides reviewed, microscopic description not recorded. Diagnosis A - Scalp, (mass), excision: Pilomatricoma B - Scalp, (mass #2), excision: Pilomatricoma C - Neck, (mass), excision: . Diagnosis Pilomatricoma 12/17/08 [facility] 12/18/08 Verified by: ? Black DO, Marizol C. ?Pathologist ?(Electronic Signature) The attending pathologist whose signature appears on this report has reviewed all diagnostic slides and has edited the gross and/or microscopic portion of the report in rendering the final pathologic diagnosis. [facility] 12/13/2008 8:02 PM EDT Deshawn Mcgregor MD PATHOLOGY/CYTOLOGY ORDERABLES Performing Organization Address City/State/[facility] Co wy Phone Number [facility] documented in this encounter Visit Diagnoses Not on filedocumented in this encounter Care Teams Curatorial Specialist Relationship Specialty Start Date End Date Dimas Lau MD [address] [place] [address] PCP - General 06/30/10 documented as of this encounter
--- OUTSIDE RECORDS SUMMARY | 2024-04-06 17:02 | XMS_ITS | Encounter Summary ---
Author Organization [facility] Address [address] [place] [address] Care Team Providers Care Precision Lens Technician Name Role Phone Dimas Lau MD Primary Care Provider [phone] Encounter Details Date Type Department Care Team (Late st Contact Info) Description 06/25/2021 Lab Requisition [facility] Pathology & Laboratory Medicine - [address] [address] Outr Resulting Lab, Provider Social History Tobacco Use Types Packs/Day Years Used Date Smoking Tobacco: Never Assessed Sex and Gender Information Value Date Recorded Sex Assigned at Not on file Gender Identity Not on file Sexual Orientation Not on file documented as of this encounter Plan of Treatment Not on file documented as of this encounter Procedures Procedure Name Priority Date/Time Associated Diagnosis Comments ZZCOVID-19 TEST [facility] PCR Today 06/25/2021 10:50 EST COVID-19 TESTING Routine 06/25/2021 10:5 0 EST documented in this encounter Results * COVID-19 TEST [facility] PCR (06/25/2021 10:50 EST) Swab 06/25/2021 10:5 0 EST 06/25/2021 22:26 EST Provider Outr Resulting Lab MICROBIOLOGY - GENERAL ORDERABLES [facility] [address] [place] [address] * COVID-19 TESTING (06/25/2021 10:50 EST) COVID-19 rt-PCR Result Negative Negative 06/26/2021 11:40 EST [facility] Comment: This test has not been FDA cleared or approved. This test has been authorized by FDA under an EUA for use by authorized laboratories. This test has been authorized only for detection of nucleic acid from 2019-nCoV, not for any other viruses or pathogens. This test is only authorized for the duration of the declaration that circumstances exist justifying the authorization of emergency use of in vitro diagnostic tests for detection and/or diagnosis of 2019-nCoV under section 564(b)(1) of Act, 21 U.S.C ?? 360bbb-3(b) (1), unless the authorization is terminated or revoked sooner. Negative results do not preclude 2019-nCoV infection and should not be used as the sole basis for treatment or other patient management decisions. Negative results must be combined with clinical observations, patient history, and epidemiological information. Performed on the YuMeher Fusion instrument Performing Lab [place] [facility] 06/26/2021 11:40 EST [facility] Swab 06/25/2021 10:5 0 EST 06/25/2021 22:26 EST Provider Outr Resulting Lab MICROBIOLOGY - GENERAL ORDERABLES [facility] [address] [place] [address] documented in this encounter Visit Diagnoses Not on filedocumented in this encounter Care Teams Precision Lens Technician Relationship Specialty Start Date End Date Dimas Lau MD [address] [place], [place] [id number] PCP - General 06/18/15 documented as of this encounter
--- OUTSIDE RECORDS SUMMARY | 2024-04-06 17:02 | XMS_ITS | Encounter Summary ---
Author Organization [facility] Address [address] [place] [address] Care Team Providers Care Adon Name Role Phone Unavailable Primary Care Provider Unavailabl e Encounter Details Date Type Department Care Team (Latest Contact Info) Description 06/02/2001 9:29 EDT - 06/02/2001 11:59 EDT Hospital Encounter [address] [address] [place] Cristina, YARITZA [address] [place] [address] Discharge Disposition: Auto Discharge Social History Tobacco Use Types Packs/Day Years Used Date Smoking Tobacco: Never Assessed Sex and Gender Information Value Date Recorded Sex Assigned at Not on file Gender Identity Not on file Sexual Orientation Not on file documented as of this encounter Discharge Disposition Disposition Code Departure Means Destination Auto Discharge documented in this encounter Plan of Treatment Not on file documented as of this encounter Visit Diagnoses Not on filedocumented in this encounter
--- OUTSIDE RECORDS SUMMARY | 2024-04-06 17:02 | XMS_ITS | Referral Summary ---
Author Organization [facility] Address [address] [place] [address] Care Team Providers Care Cold Storage Worker Name Role Phone Dimas Lau MD Primary Care Provider [phone] Social History Tobacco Use Types Packs/Day Years Used Date Smoking Tobacco: Never Assessed Sex and Gender Information Value Date Recorded Sex Assigned at Not on file Gender Identity Not on file Sexual Orientation Not on file Plan of Treatment Not on file Care Teams Cold Storage Worker Relationship Specialty Start Date End Date Dimas Lau MD [address] [place] [address] PCP - General 06/18/15
--- NOTE | 2024-04-06 17:05 | W.ED.GENAD ---
Discharge Plan Disposition Patient Disposition: Home Condition: Improving Discharge Details Clinical Impression: Acute UTI, Obstruction to urinary outflow Primary Care Provider: Freida Starks ED Provider: Giorgio Yeboah Home Meds and New Rx's Prescriptions: New cefpodoxime 200 mg tablet 200 mg PO BID 7 Days Qty: 14 0RF Rx Instructions: must administer with a meal/food No Action multivitamin Tablet 1 tab PO DAILY clotrimazole 1 % cream 1 applic topical TID PRN PRN (Reason: rash) Qty: 60 0RF potassium citrate 10 mEq (1,080 mg) tablet extended release 10 meq PO BID Qty: 180 3RF sertraline 25 mg tablet 25 mg PO DAILY ketoconazole 2 % cream 1 applic topical DAILY Qty: 120 6RF Rx Instructions: Apply to toenails once daily polyethylene glycol 3350 [GlycoLax] 527 GM powder 17 g PO DAILY cephalexin 500 mg capsule 500 mg PO TID Qty: 30 0RF bisacodyl [Dulcolax (bisacodyl)] 10 mg Suppository 10 mg TN DAILY lorazepam 1 mg Tablet 1 mg PO TID PRN cholecalciferol (vitamin D3) [Vitamin D3] 1,000 unit Capsule 1 unit PO DAILY Discharge Instructions Instructions: Urinary tract infections in adults, Urinary Retention Additional Instructions: Please follow-up with your primary care physician. Please return to the emerged part for any worsening symptoms HPI General Date/Time Provider Initiated Documentation: 04/06/24 16:55. HPI Narrative: 58-year-old male history of neurofibromatosis, meningioma, developmental delay, wheelchair dependent, chronic indwelling Li catheter presents with fevers chills and diarrhea over the last couple of days, decreased urine output, minimal urine that is in bag is cloudy and dark. Related Data Home Medications ?Medication ?Instructions ?Recorded ?Confirmed polyethylene glycol 3350 17 17 g PO DAILY 08/25/15 02/22/24 gram/dose oral powder (GlycoLax) bisacodyl 10 mg rectal suppository 10 mg TN DAILY 04/26/19 02/22/24 (Dulcolax (bisacodyl)) cholecalciferol (vitamin D3) 25 1 unit PO DAILY 04/26/19 02/22/24 mcg (1,000 unit) capsule (Vitamin D3) lorazepam 1 mg tablet 1 mg PO TID PRN 04/26/19 02/22/24 clotrimazole 1 % topical cream 1 applic topical TID PRN PRN rash 04/27/21 02/22/24 #60 grams multivitamin 1 tab PO DAILY 04/06/22 02/22/24 sertraline 25 mg tablet 25 mg PO DAILY 12/30/23 02/22/24 cephalexin 500 mg capsule 500 mg PO TID antibiotic #30 caps 01/27/24 02/22/24 ketoconazole 2 % topical cream 1 applic topical DAILY #120 grams 02/22/24 02/22/24 potassium citrate 10 mEq (1,080 10 meq PO BID #180 tabs 03/20/24 03/20/24 mg) tablet,extended release cefpodoxime 200 mg tablet 200 mg PO BID 7 days #14 tabs 04/06/24 Previous Rx's ?Medication ?Instructions ?Recorded clotrimazole 1 % topical cream 1 applic topical TID PRN PRN rash 04/27/21 #60 grams cephalexin 500 mg capsule 500 mg PO TID antibiotic #30 caps 01/27/24 ketoconazole 2 % topical cream 1 applic topical DAILY #120 grams 02/22/24 potassium citrate 10 mEq (1,080 10 meq PO BID #180 tabs 03/20/24 mg) tablet,extended release cefpodoxime 200 mg tablet 200 mg PO BID 7 days #14 tabs 04/06/24 Allergies Allergy/AdvReac Type Severity Reaction Status Date / Time carbamazepine (From Tegretol) Allergy Unknown Unknown Verified 04/06/24 16:34 gabapentin (From Neurontin) Allergy Unknown Unknown Verified 04/06/24 16:34 risperidone (From Risperdal) Allergy Unknown Unknown Verified 04/06/24 16:34 Sulfa (Sulfonamide AdvReac Mild Per pt. Verified 04/06/24 16:34 Antibiotics) mother causes stomach ache haldol AdvReac Unknown Other (See Uncoded 04/06/24 16:34 Comment) General Stated Complaint: Abd Prob SCHUYLER: 3 Exam Narrative Exam Narrative: Resting comfortably no acute distress Tolerating secretions Lungs clear bilaterally no respiratory distress Abdomen soft nontender mildly distended suprapubic region Li catheter in place cloudy yellow urine in bag minimal output No rash or trauma appreciated Chronic contractures however moving all extremities without focal deficit Course Vital Signs Vital signs: Vital Signs Temperature 36.8 C 04/06/24 16:26 Pulse 92 H 04/06/24 16:26 Respiratory Rate 16 04/06/24 16:26 Blood Pressure 162/102 H 04/06/24 16:26 Pulse Oximetry 96 04/06/24 16:26 Temperature 36.8 C 04/06/24 16:26 Temperature Source Skin 04/06/24 16:26 Pulse 92 H 04/06/24 16:26 Respiratory Rate 16 04/06/24 16:26 Blood Pressure 162/102 H 04/06/24 16:26 Pulse Oximetry 96 04/06/24 16:26 Oxygen Delivery Method Room Air 04/06/24 16:26 Oxygen Flow Rate 0 04/06/24 16:26 Pain Level 6 04/06/24 16:26 Medical Decision Making 58-year-old male history of neurofibromatosis, meningioma, developmental delay, wheelchair dependent, chronic indwelling Li catheter presents with fevers chills and diarrhea over the last couple of days, decreased urine output, minimal urine that is in bag is cloudy and dark. Afebrile nontoxic hemodynamically unstable, hypertension like related to discomfort, some suprapubic fullness decreased Li output consider clogged Li with urinary retention most also consider UTI given cloudy dark urine and history of recurrent UTIs, fever and diarrhea must consider viral enteritis versus foodborne illness versus colitis versus C. difficile, will obtain basic labs, urinalysis, replace Li catheter, if improved abdominal symptoms after Li replacement will hold imaging at this time however if worsening symptomatology we will consider CT abdomen pelvis. 20: 58 resting comfortably after decompression of bladder with Li. Evidence of UTI. Hemodynamically stable. Started on oral antibiotics. Home care instructions and return precautions given Quality:[facility] Health Related Social Needs: Health related social needs details Has two private caregivers with him [facility] All Active Problems (Updated 04/06/24 @ 20:59 by Giorgio Yeboah MD) Obstruction to urinary outflow (Acute) Acute UTI (Acute) Edema (Acute) Atherosclerosis of artery of both lower extremities (Acute) Onychogryphosis (Acute) Nail dystrophy (Acute) Onychomycosis (Acute) Neurogenic bladder (Acute) Sepsis (Acute) Complicated UTI (urinary tract infection) (Acute) Community acquired pneumonia (Acute) DVT prophylaxis (Acute) Urinary catheter insertion/adjustment/removal (Acute) Diarrhea (Acute) Neurogenic bladder (Acute) Discharge planning issues (Acute) Bacteremia (Acute) Medical History Acute UTI Urethral stricture Wheelchair dependent 2 assist Developmental non-verbal disorder Urinary retention Meningioma Neurofibromatosis 2 Surgical History S/P craniotomy S/P ANTENNA 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
[2024-04-06 17:55] LABS: Bilirubin Negative (Negative); Blood Moderate (Negative); Clarity Sl Cloudy (Clear); Glucose Negative (Negative); Ketones Negative (Negative); Leukocyte Esterase Moderate (Negative); Nitrite Negative (Negative); Urobilinogen 0.2 mg/dL (Up to 0.2)
[2024-04-06 17:58] LABS: COVID-19 PCR Negative (Negative); Influenza A PCR Negative (Negative); Influenza B PCR Negative (Negative); RSV PCR Negative (Negative)
[2024-04-06 17:59] LABS: Source NASOPHARYNX
[2024-04-06] MEDS: ACETAMINOPHEN 1,000 MG/100 ML BTL 400 MG IVPB (18:03)
[2024-04-06] MEDS: Normal Saline 500 ML 1000 ML IV (18:03)
[2024-04-06 18:04] LABS: Epithelial Cells Negative HPF (Negative); WBC 20-50 HPF (0-5)
[2024-04-06 18:05] LABS: Bacteria Rare HPF (Negative); C & S Indicated? Yes; Crystals Negative HPF (Negative); Mucus Negative (Negative)
[2024-04-06 20:14] LABS: Abs Immature Grans 0.04 10^3/uL (0.0-0.06); Absolute Basophil Count 0.04 10^3/uL (0.0-0.2); Absolute Eosinophil Count 0.05 10^3/uL (0.0-0.7); Absolute Lymphocyte Count 0.86 10^3/uL (1.2-3.4); Absolute Monocyte Count 0.57 10^3/uL (0.1-0.8); Absolute Neutrophil Count 11.44 10^3/uL (1.2-6.7); Basophils % 0.3 %; Eosinophils % 0.4 %; HCT 42.5 % (40.0-50.0); HGB 13.7 g/dL (13.5-17.5); Immature Grans % 0.3 %; Lymphocytes % 6.6 %; MCH 28.8 pg (27.0-33.0); MCHC 32.2 % (32.0-36.0); MCV 89 fL (80-95); MPV 10.4 fL (8.0-11.0); Monocytes % 4.4 %; Platelet Count 178 10^3/uL (130-400); RBC 4.76 10^6/uL (4.36-5.78); RDW 13.2 % (11.8-14.1)
[2024-04-06 20:30] LABS: ALT 34 U/L (16-63); AST 33 U/L (15-37); Albumin 2.8 g/dL (3.4-5.0); Alkaline Phosphatase 101 U/L (46-116); Anion Gap 4.6 mmol/L (3-11); BUN 14 mg/dL (7-18); Bilirubin, Total 0.31 mg/dL (0.2-1.0); CO2 30.4 mmol/L (21.0-32.0); CREATININE 1.4 mg/dL (0.70-1.30); Calcium 8.3 mg/dL (8.5-10.1); Chloride 103 mmol/L (98-107); Glucose 122 mg/dL (74-106); Potassium 4.5 mmol/L (3.5-5.1); Sodium 138 mmol/L (136-145); Total Protein 6.1 g/dL (6.4-8.2)
[2024-04-06] MEDS: Cefpodoxime 200 MG TAB PO (20:53)
== END 2024-04-06 21:09 | disposition home or self-care (01) ==
PROVIDERS: Emergency Provider Emergency Medicine; PCP Family Medicine
DX: N39.0 Urinary tract infection, site not specified (principal); T83.098A Other mechanical complication of other urinary catheter, initial encounter; R62.50 Unspecified lack of expected normal physiological development in childhood; Q85.00 Neurofibromatosis, unspecified; Z98.2 Presence of cerebrospinal fluid drainage device; Z99.3 Dependence on wheelchair
CPT/HCPCS: 36415; 80053; 87077; 87637; 93005; 96365; 99284; 81003; 81015; 85025; 87086; 87186; 93010; 99283; J0131

== ENCOUNTER → 2024-04-18 12:54 | Outpatient (BNVA) | payer MEDICARE, MEDICAID, SELFPAY | PROVIDERS: PCP Family Medicine; Referring Provider Podiatrist; Visit Provider Physical Therapy Assistant | DX: I70.203 Unspecified atherosclerosis of native arteries of extremities, bilateral legs (principal) | CPT/HCPCS: 93922 ==

== ENCOUNTER → 2024-05-07 12:52 | Outpatient (BNVA) | payer MEDICARE, MEDICAID, SELFPAY | PROVIDERS: PCP Family Medicine; Visit Provider Urology | DX: N20.0 Calculus of kidney (principal); N31.9 Neuromuscular dysfunction of bladder, unspecified; Z46.6 Encounter for fitting and adjustment of urinary device | CPT/HCPCS: 51702 ==

== ENCOUNTER 2024-05-21 11:36 | Emergency (ER) | payer MEDICARE, MEDICAID, SELFPAY ==
[2024-05-21 11:47] VITALS: BP 151/64; PULSE 96; RESP 15; TEMP 36.6; O2SAT 92
--- NOTE | 2024-05-21 11:52 | W.ED.GENAD ---
Discharge Plan Disposition Patient Disposition: Home Condition: Stable Discharge Details Clinical Impression: Pneumonia, Li catheter problem Primary Care Provider: Freida Starks ED Provider: Rock Ramirez Home Meds and New Rx's Prescriptions: New amoxicillin-pot clavulanate 875-125 mg tablet 1 tab PO BID 7 Days Qty: 14 0RF azithromycin 250 mg tablet See Rx Instructions .ROUTE .COMPLEX Qty: 6 0RF Rx Instructions: For 250 mg dose pack: take 500 mg today (day 1), then 250 mg for 4 days (days 2-5) Continued multivitamin Tablet 1 tab PO DAILY clotrimazole 1 % cream 1 applic topical TID PRN PRN (Reason: rash) Qty: 60 0RF potassium citrate 10 mEq (1,080 mg) tablet extended release 10 meq PO BID Qty: 180 3RF sertraline 25 mg tablet 25 mg PO DAILY ketoconazole 2 % cream 1 applic topical DAILY Qty: 120 6RF Rx Instructions: Apply to toenails once daily polyethylene glycol 3350 [GlycoLax] 527 GM powder 17 g PO DAILY sertraline 50 mg tablet 50 mg PO DAILY Patient Comments: TAKE ONE TABLET BY MOUTH EVERY DAY bisacodyl [Dulcolax (bisacodyl)] 10 mg Suppository 10 mg CA DAILY lorazepam 1 mg Tablet 1 mg PO TID PRN cholecalciferol (vitamin D3) [Vitamin D3] 1,000 unit Capsule 1 unit PO DAILY Discharge Instructions Instructions: Azithromycin (Systemic), Amoxicillin and Clavulanate, Pneumonia, Adult ED Additional Instructions: You were seen in the emergency department for Juanita Li catheter problem, he states that the sediment in his Li catheter is causing some increasing obstructions of the Li cath, we did replace this at today's visit, we did send out a urine culture does not appear he has UTI at this time but he does have some pneumonia seen on the CT we did of his abdomen to check for renal stone which was negative. His labs do not suggest sepsis, I am going to prescribe 2 different antibiotics to treat this pneumonia, please follow-up with Dr. House for your urine culture and Li catheter issues. Please return to the emergency department for severe increase in perceived discomfort, fevers, sweating, weakness, inability to tolerate p.o. intake, Li catheter obstructions. Referrals: [facility] [Provider Group] Freida Starks [Primary Care Provider] - Discharge Data Discharge Date/Time-TO BE ENTERED AT DEPARTURE: 05/21/24 15:35 HPI General Date/Time Provider Initiated Documentation: 05/21/24 11:51. HPI Narrative: 58 year-old male presents to ED today by POV/ambulating with a chief complaint of little to no urinary output in Li catheter since 9:30 PM last night, patient is nonverbal and has care provider with him, they report some behavior changes and significant increase in the level of sediment in his Li catheter equipment, he had weakness on transitioning today. Quality described as mild confusion had some sweats noticed this morning, poor urinary output, no radiation to overt fever, severe cough, shortness of breath or respiratory distress, intractable nausea or vomiting, patient is tolerating p.o. intake. Severity is described as unable to quantify. Palliating factors include attempted flush at home, feels obstructed. Provoking factors include nothing specific. Events leading up to the incident/Associated Symptoms: Patient is followed by [facility]. Patient not anticoagulated. Related Data Home Medications ?Medication ?Instructions ?Recorded ?Confirmed polyethylene glycol 3350 17 17 g PO DAILY 08/25/15 05/21/24 gram/dose oral powder (GlycoLax) bisacodyl 10 mg rectal suppository 10 mg CA DAILY 04/26/19 05/21/24 (Dulcolax (bisacodyl)) cholecalciferol (vitamin D3) 25 1 unit PO DAILY 04/26/19 05/21/24 mcg (1,000 unit) capsule (Vitamin D3) lorazepam 1 mg tablet 1 mg PO TID PRN 04/26/19 05/21/24 clotrimazole 1 % topical cream 1 applic topical TID PRN PRN rash 04/27/21 05/21/24 #60 grams multivitamin 1 tab PO DAILY 04/06/22 05/21/24 sertraline 25 mg tablet 25 mg PO DAILY 12/30/23 05/21/24 ketoconazole 2 % topical cream 1 applic topical DAILY #120 grams 02/22/24 05/21/24 potassium citrate 10 mEq (1,080 10 meq PO BID #180 tabs 03/20/24 05/21/24 mg) tablet,extended release amoxicillin 875 mg-potassium 1 tab PO BID pneumonia 7 days #14 05/21/24 clavulanate 125 mg tablet tabs azithromycin 250 mg tablet See Rx Instructions PO .COMPLEX #6 05/21/24 tabs sertraline 50 mg tablet 50 mg PO DAILY 05/21/24 05/21/24 Previous Rx's ?Medication ?Instructions ?Recorded clotrimazole 1 % topical cream 1 applic topical TID PRN PRN rash 04/27/21 #60 grams ketoconazole 2 % topical cream 1 applic topical DAILY #120 grams 02/22/24 potassium citrate 10 mEq (1,080 10 meq PO BID #180 tabs 03/20/24 mg) tablet,extended release amoxicillin 875 mg-potassium 1 tab PO BID pneumonia 7 days #14 05/21/24 clavulanate 125 mg tablet tabs azithromycin 250 mg tablet See Rx Instructions PO .COMPLEX #6 05/21/24 tabs Allergies Allergy/AdvReac Type Severity Reaction Status Date / Time carbamazepine (From Tegretol) Allergy Unknown Unknown Verified 05/21/24 12:03 gabapentin (From Neurontin) Allergy Unknown Unknown Verified 05/21/24 12:03 risperidone (From Risperdal) Allergy Unknown Unknown Verified 05/21/24 12:03 Sulfa (Sulfonamide AdvReac Mild Per pt. Verified 05/21/24 12:03 Antibiotics) mother causes stomach ache haldol AdvReac Unknown Other (See Uncoded 05/21/24 12:03 Comment) General Stated Complaint: Urinary SCHUYLER: 3 Review of Systems All systems reviewed & are unremarkable except as noted in HPI and below Exam Narrative Exam Narrative: GENERAL APPEARANCE: Well-nourished, non-toxic, awake and alert, atraumatic, no acute distress. SKIN: Warm, pale, dry, intact, without rashes/lesions/ulcerations. HEAD: Normocephalic, atraumatic, normal hair distribution for gender/age. EYES: Normal conjunctiva, no exudates on lids/lashes. ENT: Nares patent, no circumoral cyanosis, no facial swelling NECK: Supple, trachea midline, painless cervical ROM. LUNGS/CHEST: Lungs CTA bilaterally-no overt rhonchi diffusely, no wheezing, non-labored respirations, normal A/P diameter, symmetrical expansion, no chest wall deformity HEART (CV/PV): Regular rate and rhythm without murmur, no peripheral edema, no JVD. ABDOMEN: Soft, non-distended, no guarding mild pain response with lower abdominal palpation. MSK: Normal ROM, no swelling/deformity to bilateral UEs or LEs, moving all extremities without weakness, no cyanosis, spine midline without tenderness, normal curvature. NEURO: Mental Status AAOx4 - alert to person, place, time, events No facial droop, no forehead involvement. Motor: No focal weakness - strength 5/5 in bilateral UEs and LEs, proximal and distal, symmetric. Sensory: sensation intact to light touch globally. Gait NT PSYCH: euthymic, cooperative, pleasant, nonverbal Course Vital Signs Vital signs: Vital Signs Temperature 36.6 C 05/21/24 11:47 Pulse 96 H 05/21/24 11:47 Respiratory Rate 15 05/21/24 11:47 Blood Pressure 151/64 H 05/21/24 11:47 Pulse Oximetry 92 05/21/24 11:47 Temperature 36.6 C 05/21/24 11:47 Pulse 96 H 05/21/24 11:47 Respiratory Rate 15 05/21/24 11:47 Blood Pressure 151/64 H 05/21/24 11:47 Blood Pressure Position Sitting 05/21/24 11:47 Pulse Oximetry 92 05/21/24 11:47 Oxygen Delivery Method Room Air 05/21/24 11:47 Oxygen Flow Rate 0 05/21/24 11:47 Medical Decision Making This dictation utilizes [id number] dictation software and may contain unedited grammatical errors. 58 year-old male presents to ED today by POV/ambulating with a chief complaint of little to no urinary output in Li catheter since 9:30 PM last night, patient is nonverbal and has care provider with him, they report some behavior changes and significant increase in the level of sediment in his Li catheter equipment, he had weakness on transitioning today. Quality described as mild confusion had some sweats noticed this morning, poor urinary output, no radiation to overt fever, severe cough, shortness of breath or respiratory distress, intractable nausea or vomiting, patient is tolerating p.o. intake. Severity is described as unable to quantify. Palliating factors include attempted flush at home, feels obstructed. Provoking factors include nothing specific. Events leading up to the incident/Associated Symptoms: Patient is followed by [facility]. 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 Family and social history: Lives at home with store team member. Pertinent exam findings / vital signs include mild pain response to palpation of lower abdomen, overall stable vitals with nonperitoneal abdomen, benign cardiopulmonary exam, neuro baseline. Differential / pathologies of concern include UTI, viral syndrome, Li catheter problem, possible sepsis. Diagnostic studies of: -CBC, CMP, lactate, procalcitonin, lipase, magnesium, UA, blood cultures, CT renal without. -CBC shows mild leukocytosis 13.9, no left shift -Lactate 1.8, procalcitonin negative, do not suspect sepsis -Lipase negative -Magnesium mildly low, will replete with normal p.o. intake -UA shows no sign of UTI, I did send culture -Blood cultures pending -CT renal study does not show any acute emergent process or severe hydronephrosis, there is some mild diffuse wall thickening of urinary bladder this is likely due to chronic catheterized state, there is an incidental finding of infiltrate seen in the lungs and I am diagnosing the patient with pneumonia Interventions of: -Replaced Li catheter tubing and bag after flushing it due to buildup of sediment, 50 mg IV ketorolac, 1 g IV acetaminophen, 2 g IV ceftriaxone and outpatient prescription for Augmentin and azithromycin for empiric pneumonia coverage ED Course/Assessment/Plan: 58-year-old nonverbal patient tolerating p.o. intake well and afebrile presents with some sediment in his Li catheter and poor output, I did replace tubing with good free-flowing drainage at that time, there is no evidence of severe UTI, he has a mild white count and an incidental finding of pneumonia on CT scan, he is tolerating p.o. medicines well, I stressed strict monitoring by care provider did send antibiotics for pneumonia as well as urine culture pending and recommend follow-up with urology. Strict return criteria for any respiratory distress, worsening febrile illness, p.o. poor p.o. intake, poor urinary output. Findings not consistent with completely obstructed Li, UTI, perforated viscus or acute abdominal problem, sepsis. Disposition of pneumonia, Li catheter problem. Patient verbalized understanding of the plan and return to ED criteria and engaged in shared decision making. Medical Records Medical records reviewed: Yes I reviewed the patient's medical records. Imaging Data Radiologic Study: Attestation: I personally reviewed and interpreted this imaging study as follows: Imaging: CT Scan Radiologist's impression: EXAM: CT RENAL COLIC WO CLINICAL HISTORY: ?UTI vs renal stones. TECHNIQUE: Imaging Protocol: Axial computed tomography images with coronal and sagittal reformatted images were created and reviewed. COMPARISON: CT CT ABDOMEN PELVIS W from 07/15/2023 FINDINGS: The examination is limited due to patient motion artifact. ABDOMEN: Lung Bases: Dependent infiltrates in the lung bases bilaterally. Liver: Normal density. No measurable mass. Gallbladder and biliary tract: No radiodense calculus or biliary ductal dilation. Pancreas: Normal density, no abnormal calcifications or inflammatory process. Spleen: Normal. Kidneys: Normal size, contour and axis.Small nonobstructing stones are seen in the right kidney. No ureterolithiasis or hydronephrosis. No masses seen. Adrenal glands: No mass is seen. Lymph nodes: Within normal limits. Abdominal Aorta: Abdominal portion non-dilated. PELVIS: Bladder:There is a Li catheter in place. They urinary bladder is well distended. There is diffuse very mild thickening of the wall of the urinary bladder. Bowel: There are diverticula seen in the colon but no evidence of acute diverticulitis. There is no bowel wall thickening or obstruction. No evidence of appendicitis. Peritoneal cavity: The there is tubing in the abdomen and anterior chest wall consistent with a ventriculoperitoneal shunt. There is a small amount of fluid seen in the pelvis. No pneumoperitoneum. Reproductive organs: Unremarkable as visualized. Bones: Within normal limits for the patient's age. Soft Tissues: Within normal limits. IMPRESSION: 1. Right nephrolithiasis. No ureterolithiasis or hydronephrosis. 2. Mild diffuse thickening of the wall of the urinary bladder. This may reflect cystitis. Please correlate clinically. 3. Ventriculoperitoneal shunt is in place. There is a small amount of fluid in the pelvis which may reflect shunt function. No focal fluid collection is seen in the abdomen or pelvis. 4. Dependent infiltrates seen in the lung bases which may represent atelectasis or pneumonia. Please correlate clinically. 5. Colonic diverticulosis without evidence of acute diverticulitis. Lab Data Lab results reviewed: Yes I reviewed the patient's lab results. Labs: 05/21/24 12:54 Blood Blood Culture - Pending 05/21/24 12:30 Blood Blood Culture - Pending Laboratory Tests Range/Units 05/21/24 05/21/24 12:10 12:30 WBC (4.4-10.8) 10^3/uL 13.97 H RBC (4.36-5.78) 10^6/uL 5.41 Hgb (13.5-17.5) g/dL 15.4 Hct (40.0-50.0) % 46.7 MCV (80-95) fL 86 MCH (27.0-33.0) pg 28.5 MCHC (32.0-36.0) % 33.0 RDW (11.8-14.1) % 13.2 Plt Count (130-400) 10^3/uL 239 MPV (8.0-11.0) fL 10.0 Immature Gran % % 0.4 Neutrophils % % 87.8 Lymphocytes % % 5.7 Monocytes % % 5.0 Eosinophils % % 0.7 Basophils % % 0.4 Nucleated RBC % (0.0-0.3) % 0.0 Absolute Neutrophils (1.2-6.7) 10^3/uL 12.27 H Absolute Lymphocytes (1.2-3.4) 10^3/uL 0.80 L Absolute Monocytes (0.1-0.8) 10^3/uL 0.70 Absolute Eosinophils (0.0-0.7) 10^3/uL 0.10 Absolute Basophils (0.0-0.2) 10^3/uL 0.06 VBG Lactate (0.6-1.4) mmol/L 1.8 H Sodium (136-145) mmol/L 134 L Potassium (3.5-5.1) mmol/L 4.0 Chloride (98-107) mmol/L 99 Carbon Dioxide (21.0-32.0) mmol/L 26.4 Anion Gap (3-11) mmol/L 8.6 BUN (7-18) mg/dL 17 Creatinine (0.70-1.30) mg/dL 1.3 Est GFR (CKD-EPI 2020) (mL/min/1.73m2) 63.28 Glucose (74-106) mg/dL 100 Calcium (8.5-10.1) mg/dL 9.0 Magnesium (1.8-2.4) mg/dL 1.5 L Total Bilirubin (0.2-1.0) mg/dL 0.54 AST (15-37) U/L 20 ALT (16-63) U/L 40 Alkaline Phosphatase (46-116) U/L 114 Creatine Kinase (39-308) U/L 150 Total Protein (6.4-8.2) g/dL 7.1 Albumin (3.4-5.0) g/dL 3.4 Lipase (16-77) U/L 25 Procalcitonin ng/mL < 0.1 Urine Color (Yellow) Yellow Urine Clarity (Clear) Sl Cloudy Urine pH (5-8) 5.5 Ur Specific Richey (1.005-1.025) >= 1.030 H Urine Protein (Neg-Trace) mg/dL 30 H Urine Ketones (Negative) mg/dL 80 H Urine Blood (Negative) Negative Urine Nitrite (Negative) Negative Urine Bilirubin (Negative) Small H Urine Urobilinogen (Up to 0.2) mg/dL 0.2 Ur Leukocyte Esterase (Negative) Negative Urine RBC (0-2) HPF Negative Urine WBC (0-5) HPF Negative Ur Epithelial Cells (Negative) HPF Many Urine Crystals (Negative) HPF Negative Urine Bacteria (Negative) HPF Few Urine Casts (Negative) LPF 0-2 Hyaline Urine Mucus (Negative) Moderate Ur Culture Indicated? No Urine Glucose (Negative) mg/dL Negative Quality:SDOH Health Related Social Needs: Health related social needs details [facility] All Active Problems (Updated 05/21/24 @ 14:41 by EWA Lo) Li catheter problem (Acute) Pneumonia (Acute) Edema (Acute) Atherosclerosis of artery of both lower extremities (Acute) Onychogryphosis (Acute) Nail dystrophy (Acute) Onychomycosis (Acute) Neurogenic bladder (Acute) Sepsis (Acute) Complicated UTI (urinary tract infection) (Acute) Community acquired pneumonia (Acute) DVT prophylaxis (Acute) Urinary catheter insertion/adjustment/removal (Acute) Diarrhea (Acute) Neurogenic bladder (Acute) Discharge planning issues (Acute) Bacteremia (Acute) Medical History Acute UTI Urethral stricture Wheelchair dependent 2 assist Developmental non-verbal disorder Urinary retention Meningioma Neurofibromatosis 2 Surgical History S/P craniotomy S/P LAY OUT MACHINE OPERATOR shunt Social History Smoking/Tobacco Use Status: Never Smoking risk assessment performed?: Yes Alcohol Intake: never Drug use: Never Substance use type: does not use Caregiver/Support person: Yes (parents are primary caretakers) Household members: family Housing: house Do you feel safe at home: Yes Do you feel safe in your relationship?: Yes Additional Social history: not able to assess privately
[2024-05-21 12:05] VITALS: BP 151/64; PULSE 96; RESP 15; TEMP 36.6; O2SAT 92
[2024-05-21 12:26] LABS: Bilirubin Small (Negative); Blood Negative (Negative); Clarity Sl Cloudy (Clear); Glucose Negative (Negative); Ketones 80 mg/dL (Negative); Leukocyte Esterase Negative (Negative); Nitrite Negative (Negative); Specific Gravity >= 1.030 (1.005-1.025); Urobilinogen 0.2 mg/dL (Up to 0.2); pH 5.5 (5-8)
[2024-05-21 12:33] LABS: Bacteria Few HPF (Negative); C & S Indicated? No; Casts 0-2 Hyaline LPF (Negative); Crystals Negative HPF (Negative); Epithelial Cells Many HPF (Negative); Mucus Moderate (Negative); RBC Negative HPF (0-2); WBC Negative HPF (0-5)
[2024-05-21 12:37] LABS: Lactate 1.8 mmol/L (0.6-1.4)
[2024-05-21 12:38] LABS: Abs Immature Grans 0.06 10^3/uL (0.0-0.06); Basophils % 0.4 %; Eosinophils % 0.7 %; HCT 46.7 % (40.0-50.0); HGB 15.4 g/dL (13.5-17.5); Immature Grans % 0.4 %; Lymphocytes % 5.7 %; MCH 28.5 pg (27.0-33.0); MCV 86 fL (80-95); Neutrophils % 87.8 %; Platelet Count 239 10^3/uL (130-400); RBC 5.41 10^6/uL (4.36-5.78); RDW 13.2 % (11.8-14.1); WBC 13.97 10^3/uL (4.4-10.8)
[2024-05-21 12:39] LABS: Absolute Basophil Count 0.06 10^3/uL (0.0-0.2); Absolute Neutrophil Count 12.27 10^3/uL (1.2-6.7)
[2024-05-21] MEDS: ACETAMINOPHEN 1,000 MG/100 ML BTL 400 MG IVPB (12:41)
[2024-05-21] MEDS: Normal Saline 1,000 ML 1000 ML IV (12:42)
[2024-05-21] MEDS: Ketorolac 15 MG/ML VIAL IVP (12:42)
--- OUTSIDE RECORDS SUMMARY | 2024-05-21 12:49 | XMS_ITS | Encounter Summary ---
Author Organization [facility] [place] [address] Care Team Providers Care Floor Covering Printer Name Role Phone Dimas Lau MD Primary Care Provider Encounter Details Date Type Department Care Team (Late st Contact Info) Description 04/26/2018 1:00 PM EDT [place] [address] Jerry, Danny Palacios MD [facility] [place] [address] Adwoa Mendez Anesthesia Record Procedure Summary Procedure [...] 1211; metacarpal vein (top of hand), right; xdzh-otc-alkgii catheter system; 20 gauge, 1 in length; [...] Edwards MD - 04/26/2018 4:54 PM EDT [facility] Department of Anesthesiology Post-procedure Note Patient: Hollis Ambriz Procedure Summary Date Anesthesia Start Anesthesia Stop Room / Location 04/26/18 1300 1629 [facility] ADULT RADIOLOGY / [facility] Procedure Diagnosis Surgeon Responsible Provider MRI WITH ANESTHESIA (WRVU *) (N/A ) (NEUROFIBROMATOSIS) RESOURCE, ANESTHESIA- GUILLERMINA Danny Edwards MD All Anesthesia Providers: Anesthesiologist: Danny Edwards MD MONITORING MANAGER: Brittney Catherine CRNA Most Recent Vitals: 04/26/18 1630 BP: 107/67 Pulse: Resp: (P) 18 Temp: SpO2: 96% Pain (P) 0 (04/26/18 1625) Patient Location: PACU/[facility] Level of Consciousness: Awake and Alert Pain [...] 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 * Anesthesia Preprocedure Evaluation - [place], Danny Palacios MD - 04/26/2018 12:27 PM [...] WITH ANESTHESIA performed by Jair, Anesthesia-Guillermina at [facility] ??? PRG UNLISTED MRI PROCEDURE 02/25/2014 MRI WITH ANESTHESIA performed by Resource, Anesthesia-Guillermina at [facility] ??? PRG UNLISTED MRI PROCEDURE N/A 01/06/2015 MRI WITH ANESTHESIA performed by JAIR ANESTHESIA-GUILLERMINA at [facility] ??? PRG UNLISTED MRI PROCEDURE N/A 12/19/2015 MRI WITH ANESTHESIA performed by JAIR, ANESTHESIA-GUILLERMINA at [facility] ??? PRG UNLISTED MRI PROCEDURE N/A 12/23/2016 MRI WITH ANESTHESIA (WRVU *) performed by JAIR ANESTHESIA-GUILLERMINA at [facility] Social History Substance Use Topics ??? Smoking [...] immobilty, neurofibromatosis, meningionmas, bilateral accoustic neuromas, and evp sales shunt. He has screening MRI yearly. He [...] risks discussed with patient. Plan discussed with MONITORING MANAGER. PAT Staff Note documented in this encounter [...] r documented in this encounter Care Teams Floor Covering Printer Relationship Specialty Start Date End Date Dimas Lau MD [address] [place] [address] PCP - General 06/30/10 documented as of this encounter
--- OUTSIDE RECORDS SUMMARY | 2024-05-21 12:49 | XMS_ITS | Clinical Summary ---
Author Organization [facility] [place] [address] Care Team Providers Care Spout Tender Name Role Phone Dimas Lau MD Primary [...] Hepatitis B vaccine (0-59 yrs) (1) 10/25/1983 Tetanus/Diphtheria/Pertussis Vaccines (1 - Tdap) 10/24 Zoster vaccine (1 of 2) 2014 Advance Directive 10/25/2019 Covid-19 Vaccine (1 - season) 2024 Influenza (Flu) vaccine (1 o f 1 - Influenza standard series) 04/08/2024 Medical Devices Implanted Type Area Patrol Inspector Device Identifier Shelf Expiration Date Model / Serial / Lot Paint Tinter Shunt Other Description:DANCE THERAPIST SHUNT PLACED IN 1993. MRI Conditional up to 1.5T. Shraddha Lynn MRI Safety Technologist 11/02/2017 Advance Directives * Full Code (Latest Code Status on File) Date Activated Date Inactivated Comments 12/19/2015 12:19 PM 12/19/2015 4:44 PM Question Answer Comments Does patient have capacity to make decision: Yes Care Teams Spout Tender Relationship Specialty Start Date End Date Dimas Lau MD [address] [place] [address] PCP - General 06/30/10
--- OUTSIDE RECORDS SUMMARY | 2024-05-21 12:49 | XMS_ITS | Encounter Summary ---
Author Organization [facility] [place] [address] Care Team Providers Care Employment Law Specialist Name Role Phone Dimas Lau MD Primary Care Provider [phone] Encounter Details Date Type Department Care Team (Late st Contact Info) Description 05/04/2018 Telephone [place] [address] Chelsey Hill, RN Social History [...] - 05/04/2018 10:07 AM EDT Brennan from [facility] ([phone] ext [phone]) phoned to inquire if Dr. Dimas Lau [...] on filedocumented in this encounter Care Teams Employment Law Specialist Relationship Specialty Start Date End Date Dimas Lau MD [address] [place] [address] PCP - General 06/30/10 documented as of this encounter
--- OUTSIDE RECORDS SUMMARY | 2024-05-21 12:49 | XMS_ITS | Encounter Summary ---
[place] [address] Care Team Providers Care Wastewater Treatment Plant Instructor Name Role Phone Dimas Lau MD Primary Care Provider Encounter Details Date Type Department Care Team (Late st Contact Info) Description 04/26/2018 12:30 PM EDT - 04/26/2018 3:30 [place] [address] RESOURCE, ANESTHESIA-NICHOL None MRI WITH ANESTHESIA (WRVU [...] CRNA) documented in this encounter Care Teams Wastewater Treatment Plant Instructor Relationship Specialty Start Date End Date Dimas Lau MD [address] [place] [address] PCP - General 06/30/10 documented as of this encounter
--- OUTSIDE RECORDS SUMMARY | 2024-05-21 12:49 | XMS_ITS | Encounter Summary ---
[place] [address] Care Team Providers Care Motor Hotel Manager Name Role Phone Dimas Lau MD Primary Care Provider Encounter Details Date Type Department Care Team (Late st Contact Info) Description 05/03/2018 Telephone [place] [address] Catrina Lopez Social History Tobacco Use Types [...] on filedocumented in this encounter Care Teams Motor Hotel Manager Relationship Specialty Start Date End Date Dimas Lau MD [address] [place] [address] PCP - General 06/30/10 documented as of this encounter
--- OUTSIDE RECORDS SUMMARY | 2024-05-21 12:49 | XMS_ITS | Encounter Summary ---
[place] [address] Care Team Providers Care Cuprous Chloride Operator Name Role Phone Dimas Lau MD Primary Care Provider [phone] 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 * Diagnostic Test (Routine) - Closed Specialty Diagnoses / Procedures Referred By Contac t Referred To Contact Radiology Diagnoses Loss of balance Procedures MRI Total Spine wwo Contrast Dimas Lau MD [address] [place] [address] [place] [address] Referral ID Status Reason Start Date Expiration Date V isits Requested Visits Authorized [id number] Closed Specialty Service Requested 02/15/2018 02/15/2019 1 1 * Diagnostic Test (Routine) - Specialty Diagnoses / Procedures Referred By Contac t Referred To Contact Radiology Diagnoses Loss of balance Procedures MRI Brain wwo Contrast (Generic) Dimas Lau MD [address] [place] [address] [place] [address] Referral ID Status Reason Start Date Expiration Date Visits Requested Visits Authorized [id number] Specialty Service Requested 02/15/2018 02/15/2019 1 1 Reason for Visit * Diagnostic Test (Routine) - Closed Specialty Diagnoses / Procedures Referred By Contac t Referred To Contact Radiology Diagnoses Loss of balance Procedures MRI Total Spine wwo Contrast Dimas Lau MD [address] [place] [address] [facility] [place] [address] Referral ID Status Reason Start Date Expiration Date V isits Requested Visits Authorized [id number] Closed Specialty Service Requested 02/15/2018 02/15/2019 1 1 Encounter Details Date Type Department Care Team (Latest Contact Info) Description 04/26/2018 12:30 PM EDT - 04/26/2018 11:59 PM EDT Hospital [place] [address] Dimas Lau MD [address] [place] [address] Loss of balance Discharge Disposition: [...] areas of CSF pulsation artifact on axial [id number]. No extra-axial enhancing mass is identified. Lumbar [...] may represent small schwannoma. Dimas Lau MD [facility] MRI ORDERABLES * MRI Brain wwo Contrast [...] areas of CSF pulsation artifact on axial [id number]. No extra-axial enhancing mass is identified. Lumbar [...] mLs documented in this encounter Care Teams Cuprous Chloride Operator Relationship Specialty Start Date End Date Dimas Lau MD [address] [place] [address] PCP - General 06/30/10 documented as of this encounter
--- OUTSIDE RECORDS SUMMARY | 2024-05-21 12:50 | XMS_ITS | Encounter Summary ---
[place] [address] Care Team Providers Care Grievance Coordinator Name Role Phone Dimas Lau MD Primary Care Provider [phone] Encounter Details Date Type Department Care Team (Late st Contact Info) Description 11/28/2012 12:05 PM EDT - 11/28/2012 1:18 [place] [phone] RESOURCE, ANESTHESIA-NICHOL None MRI WITH ANESTHESIA (WRVU [...] 11/28/2012 5:42 PM EDTAssociated Order(s): SCAN DOC: PLAYGROUND ATTENDANT documented in this encounter Miscellaneous Notes * Miscellaneous - Provider, Scanning - 11/28/2012 6:06 PM EDT * Miscellaneous - Provider, Scanning - 11/28/2012 11:06 AM EDT documented in this encounter Plan of Treatment Not on file documented as of this encounter Procedures Procedure Name Priority Date/Time Associated Diagnosis Comments MRI WITH ANESTHESIA (WRVU *) 11/28/2012 8:05 PM EDT Neurofibromatosis w/mengioma; ? vp digital marketing social media and crm shunt malformation PLAYGROUND ATTENDANT SCAN 11/28/2012 5:42 PM EDT documented in this encounter Results * SCAN DOC: PLAYGROUND ATTENDANT (11/28/2012 5:42 PM EDT) Anatomical Region Laterality [...] CRNA) documented in this encounter Care Teams Grievance Coordinator Relationship Specialty Start Date End Date Dimas Lau MD [address] [place] [address] PCP - General 06/30/10 documented as of this encounter
--- OUTSIDE RECORDS SUMMARY | 2024-05-21 12:50 | XMS_ITS | Encounter Summary ---
Author [place] [address] Care Team Providers Care Agricultural Production Engineer Name Role Phone Dimas Lau MD Primary Care Provider Encounter Details Date Type Department Care Team (Late st Contact Info) Description 01/06/2015 2:50 PM EDT - 01/06/2015 4:50 [place] [address] RESOURCE, ANESTHESIA-NICHOL None MRI WITH ANESTHESIA (WRVU [...] Active and Recently Administered Medications Care Teams Agricultural Production Engineer Relationship Specialty Start Date End Date Dimas Lau MD [address] [place] [address] PCP - General 06/30/10 documented as of this encounter
--- OUTSIDE RECORDS SUMMARY | 2024-05-21 12:50 | XMS_ITS | Encounter Summary ---
[place] [address] Care Team Providers Care Cracker And Cookie Machine Operator Name Role Phone Dimas Lau MD Primary Care Provider Encounter Details Date Type Department Care Team (Latest Contact Info) Description 12/23/2016 1:39 PM EDT - 12/23/2016 5:19 PM EDT Hospital Encounter [place] [phone] Duncan Aponte MD [facility] DR ANESTHESIOLOGY DEPT [place] [id number] Discharge Disposition: Home Social History Tobacco Use [...] Routine documented in this encounter Care Teams Cracker And Cookie Machine Operator Relationship Specialty Start Date End Date Dimas Lau MD [address] [place] [address] PCP - General 06/30/10 documented as of this encounter
--- OUTSIDE RECORDS SUMMARY | 2024-05-21 12:50 | XMS_ITS | Encounter Summary ---
Author [facility] [place] [address] Care Team Providers Care Can Reforming Machine Operator Name Role Phone Dimas Lau MD Primary Care Provider [phone] Encounter Details Date Type Department Care Team (Latest Contact Info) Description 04/26/2018 11:03 AM EDT - 04/26/2018 5:52 PM EDT Hospital Encounter [place] [phone] Jerry, Danny Palacios MD [facility] [place] [address] Discharge Disposition: Home Social History Tobacco Use [...] CRNA) documented in this encounter Care Teams Can Reforming Machine Operator Relationship Specialty Start Date End Date Dimas Lau MD [address] [place] [address] PCP - General 06/30/10 documented as of this encounter
--- OUTSIDE RECORDS SUMMARY | 2024-05-21 12:50 | XMS_ITS | Encounter Summary ---
[place] [address] Care Team Providers Care Roper Operator Name Role Phone Dimas Lau MD Primary Care Provider Encounter Details Date Type Department Care Team (Late st Contact Info) Description 12/19/2015 12:30 PM EDT - 12/19/2015 1:50 [place] [address] RESOURCE, ANESTHESIA-NICHOL None MRI WITH ANESTHESIA (WRVU [...] RN) documented in this encounter Care Teams Roper Operator Relationship Specialty Start Date End Date Dimas Lau MD [address] [place] [address] PCP - General 06/30/10 documented as of this encounter
--- OUTSIDE RECORDS SUMMARY | 2024-05-21 12:50 | XMS_ITS | Clinical Summary ---
Author Organization [facility] Address [address] [place] [address] Care Team Providers Care Mis Manager Name Role Phone Dimas Lau MD Primary Care Provider [phone] Social History Tobacco Use Types Packs/Day Years [...] COVID-19 Vaccine (2022-24 season) 2023 Care Teams Mis Manager Relationship Specialty Start Date End Date Dimas Lau MD [address] [place] [address] PCP - General 06/18/15
--- OUTSIDE RECORDS SUMMARY | 2024-05-21 12:50 | XMS_ITS | Encounter Summary ---
Author Organization [place] [address] Care Team Providers Care Trainer Name Role Phone Dimas Lau MD Primary Care Provider Encounter Details Date Type Department Care Team (Latest Contact Info) Description 01/06/2015 1:53 PM EDT - 01/06/2015 7:27 PM EDT Hospital Encounter [place] [phone] RESOURCE, ANESTHESIA-NICHOL Kishor Candelario MD [facility] [place] [address] Discharge Disposition: Home Social History Tobacco Use [...] Active and Recently Administered Medications Care Teams Trainer Relationship Specialty Start Date End Date Dimas Lau MD [address] [place] [address] PCP - General 06/30/10 documented as of this encounter
--- OUTSIDE RECORDS SUMMARY | 2024-05-21 12:50 | XMS_ITS | Encounter Summary ---
Author Organization [facility] Address [facility] [address] Care Team Providers Care Ranch Supervisor Name Role Phone Dimas Lau MD Primary Care Provider Encounter Details Date Type Department Care Team (Late st Contact Info) Description 11/12/2015 Orders [place] [phone] Alex Lynn MD [facility] [place] [address] Social History Tobacco Use Types Packs/Day Years [...] on filedocumented in this encounter Care Teams Ranch Supervisor Relationship Specialty Start Date End Date Dimas Lau MD [address] [place], [place] [address] PCP - General 06/30/10 documented as of this encounter
--- OUTSIDE RECORDS SUMMARY | 2024-05-21 12:50 | XMS_ITS | Encounter Summary ---
[place] [address] Care Team Providers Care Hr Specialist Name Role Phone Dimas Lau MD Primary Care Provider Encounter Details Date Type Department Care Team (Late st Contact Info) Description 06/27/2013 [place] [phone] Lorrie Hansen MD [facility] DR O[place]ALM[place] [address] Social History Tobacco Use Types Packs/Day Years Used Date Smoking Tobacco: Never Assessed Sex and Gender Information Value Date Recorded Sex Assigned at Not on file Gender Identity Not on file Sexual Orientation Not on file documented as of this encounter Plan of Treatment Not on file documented as of this encounter Visit Diagnoses Not on filedocumented in this encounter Care Teams Hr Specialist Relationship Specialty Start Date End Date Dimas Lau MD [address] [place] [address] PCP - General 06/30/10 documented as of this encounter
--- OUTSIDE RECORDS SUMMARY | 2024-05-21 12:50 | XMS_ITS | Encounter Summary ---
[place] [address] Care Team Providers Care Diesel Truck Driver Name Role Phone Dimas Lau MD Primary Care Provider [phone] Encounter Details Date Type Department Care Team (Late st Contact Info) Description 12/23/2016 2:50 PM EDT - 12/23/2016 4:10 [place] [address] RESOURCE, ANESTHESIA-NICHOL None MRI WITH ANESTHESIA (WRVU [...] Routine documented in this encounter Care Teams Diesel Truck Driver Relationship Specialty Start Date End Date Dimas Lau MD [address] [place] [address] PCP - General 06/30/10 documented as of this encounter
--- OUTSIDE RECORDS SUMMARY | 2024-05-21 12:50 | XMS_ITS | Encounter Summary ---
Author Organization [facility] Address [facility] [place] [address] Care Team Providers Care Communications Advisor Name Role Phone Dimas Lau MD Primary Care Provider [phone] Reason for Visit * Reason Comments Acoustic Neuroma Bilateral , ref by N euro Encounter Details Date Type Department Care Team (Late st Contact Info) Description 02/13/2016 1:00 PM EDT Office Visit Otolaryngology at [facility] [place] [address] Perico Ball MD [facility] DR OTOLARYNGOLOGY [place] [phone] Acoustic neuroma syndrome, right; Meningioma of cerebellum; [...] chromosome documented in this encounter Care Teams Communications Advisor Relationship Specialty Start Date End Date Dimas Lau MD [address] [place] [address] PCP - General 06/30/10 documented as of this encounter
--- OUTSIDE RECORDS SUMMARY | 2024-05-21 12:50 | XMS_ITS | Encounter Summary ---
[place] [address] Care Team Providers Care Vp Analytics Name Role Phone Dimas Lau MD Primary Care Provider Encounter Details Date Type Department Care Team (Late st Contact Info) Description 11/03/2017 Telephone [place] [address] Aida Marcos Social History Tobacco Use Types [...] on filedocumented in this encounter Care Teams Vp Analytics Relationship Specialty Start Date End Date Dimas Lau MD [address] [place] [address] PCP - General 06/30/10 documented as of this encounter
--- OUTSIDE RECORDS SUMMARY | 2024-05-21 12:50 | XMS_ITS | Encounter Summary ---
[place] [address] Care Team Providers Care Data Migration Lead Name Role Phone Dimas Lau MD Primary Care Provider Encounter Details Date Type Department Care Team (Late st Contact Info) Description 02/25/2014 3:30 PM EDT - 02/25/2014 4:30 [place] [address] RESOURCE, ANESTHESIA-NICHOL None MRI WITH ANESTHESIA (WRVU [...] Aleman) documented in this encounter Care Teams Data Migration Lead Relationship Specialty Start Date End Date Dimas Lau MD [address] [place] [address] PCP - General 06/30/10 documented as of this encounter
--- OUTSIDE RECORDS SUMMARY | 2024-05-21 12:50 | XMS_ITS | Encounter Summary ---
[place] [address] Care Team Providers Care Crime Scene Investigator Name Role Phone iDmas Lau MD Primary Care Provider Encounter Details Date Type Department Care Team (Late st Contact Info) Description 03/17/2018 Telephone [place] [address] Catrina Lopez Social History Tobacco Use Types [...] on filedocumented in this encounter Care Teams Crime Scene Investigator Relationship Specialty Start Date End Date Dimas Lau MD [address] [place] [address] PCP - General 06/30/10 documented as of this encounter
--- OUTSIDE RECORDS SUMMARY | 2024-05-21 12:50 | XMS_ITS | Encounter Summary ---
[place] [address] Care Team Providers Care Electrical Construction Project Manager Name Role Phone Dimas Lau MD Primary Care Provider [phone] Encounter Details Date Type Department Care Team (Late st Contact Info) Description 11/28/2012 12:22 PM [place] [address] Tigist Mac MD [facility] DR [place] [address] [address] [facility] [place] [address] Anesthesia Record Procedure Summary Procedure Name Responsible [...] meningiomas presents for MR Brain to R/O POWERTRAIN ENGINEER shunt malfunction. Recurrent UTI, finished antibiotic course [...] mL/hr documented in this encounter Care Teams Electrical Construction Project Manager Relationship Specialty Start Date End Date Dimas Lau MD [address] [place] [address] PCP - General 06/30/10 documented as of this encounter
--- OUTSIDE RECORDS SUMMARY | 2024-05-21 12:50 | XMS_ITS | Encounter Summary ---
Author Organization [facility] Address [facility] [place] [address] Care Team Providers Care Supply Requirements Officer Name Role Phone Dimas Lau MD Primary Care Provider Encounter Details Date Type Department Care Team (Late st Contact Info) Description 11/01/2017 Orders Only [place] [phone] Joseline Ward APRN [facility] [place] [address] NF2-related schwannomatosis; Acoustic neuroma Social History Tobacco [...] nerves documented in this encounter Care Teams Supply Requirements Officer Relationship Specialty Start Date End Date Dimas Lau MD [address] [place] [address] PCP - General 06/30/10 documented as of this encounter
--- OUTSIDE RECORDS SUMMARY | 2024-05-21 12:50 | XMS_ITS | Encounter Summary ---
[place] [address] Care Team Providers Care Rodbuster Name Role Phone Dimas Lau MD Primary Care Provider [phone] Encounter Details Date Type Department Care Team (Late st Contact Info) Description 12/19/2015 12:49 PM EDT [place] [address] Stefan Hatfield MD [facility] [place] [address] Alexsandra Van CRNA [facility] [place] [address] Anesthesia Record Procedure Summary Procedure Name Responsible [...] an stop data 1402 Transport Transport to [facility] 1407 Recovery or ICU Handoff Giovanna ent [...] 1245; median vein right (underside of arm); [id number]-pspyfw catheter system; 22 gauge, 1 in length; [...] Hatfield MD - 12/19/2015 4:10 PM EDT [facility] Department of Anesthesiology Post-procedure Note Patient: Hollis Ambriz Procedure Summary Date Anesthesia Start Anesthesia Stop Room / Location 12/19/15 4056 [id number] [facility] ADULT RADIOLOGY / [facility] GUILLERMINA Procedure Diagnosis Surgeon Responsible Provider MRI WITH ANESTHESIA (N/A Brain) (BILATERAL ACOUSTIC NEUROMAS; NF, BILATERAL ACOUSTIC NEUROMA, MULTIPLE MENINGIOMAS, EVALUATE FOR CHANGE; IAC PROTOCAL FOR SKULL BASE ) RESOURCE, ANESTHESIA-Stefan Zapien MD All Anesthesia Providers: Anesthesiologist: Stefan Hatfield MD OIL PIPE INSPECTOR: Lit Bradley CRNA Last (1hr) Vitals: BP [...] 12/19/2015 12:15 PM EDT Pre-Anesthesia Evaluation for: Hlolis Ambriz a 50 y.o. male. Procedure(s): MRI [...] WITH ANESTHESIA performed by Jair Anesthesia-Guillermina at [facility] ??? Unlisted mr procedure 02/25/2014 MRI WITH ANESTHESIA performed by Jair, Anesthesia-Guillermina at [facility] ??? Unlisted mr procedure N/A 01/06/2015 MRI WITH ANESTHESIA performed by JAIR, ANESTHESIA-GUILLERMINA at [facility] History Substance Use Topics ??? Smoking [...] MRI to evaluate meningionmas, bilateral accoustic neuromas, group marketing vp shunt, neurofibromatoma Has screening MRI yearly Has [...] legal guardian and mother. Plan discussed with OIL PIPE INSPECTOR. PAT Staff Note documented in this encounter [...] hr documented in this encounter Care Teams Rodbuster Relationship Specialty Start Date End Date Dimas Lau MD [address] [place] [address] PCP - General 06/30/10 documented as of this encounter
--- OUTSIDE RECORDS SUMMARY | 2024-05-21 12:50 | XMS_ITS | Encounter Summary ---
Author Organization [facility] Address [address] [place] [address] Care Team Providers Care Investment Manager Name Role Phone Unavailable Primary Care Provider Unavailabl e Encounter Details Date Type Department Care Team (Late st Contact Info) Description 06/07/2006 Results Only [facility] - Maple conversion [address] [place] [address] Boyd Márquez, DO [address] [place] [address] Social History Tobacco Use Types [...] ? YURIY ALCANTAR ? Accession #: ? [id number] ? : ? 1965 (Age: 40) ??M [...] specimen is entirely submitted as (F). ??([place])/[facility] End of Report SULEMA GONZÁLES 06/07/2006 06/08/2006 10: 26 EST Boyd Márquez DO PATHOLOGY ORDER ESTRELLITA SULEMA GONZÁLES [address] [place] [address] documented in this encounter Visit Diagnoses Not on filedocumented in this encounter
--- OUTSIDE RECORDS SUMMARY | 2024-05-21 12:50 | XMS_ITS | Encounter Summary ---
Author Organization [facility] [place] [address] Care Team Providers Care Whitesmith Name Role Phone Dimas Lau MD Primary Care Provider Encounter Details Date Type Department Care Team (Late st Contact Info) Description 02/13/2016 11:00 AM EDT Office Visit Audiology at [address] [address] Jane Berrios AUD [facility] [address] Bilateral acoustic neuromas; Unspecified hearing loss, bilateral [...] - 02/13/2016 11:27 AM ED[place] [address] Hollis Ambriz, 50 y.o., was seen on 02/14/2016 for an audiologic evaluation in conjunction with in Otolaryngology. Please refer to the scanned audiogram listed under Scanned Documents in Chart Review for findings, impressions and recommendations. NOTE: Attempted picture pointing for SRT but was unsuccessful. Enclosure: [place] [address] documented in this encounter Plan of Treatment Not on file documented as of this encounter Visit Diagnoses Diagnosis Bilateral acoustic neuromas Benign neoplasm of cranial nerves Unspecified hearing loss, bilateral documented in this encounter Care Teams Whitesmith Relationship Specialty Start Date End Date Dimas Lau MD [address] [place] [address] PCP - General 06/30/10 documented as of this encounter
--- OUTSIDE RECORDS SUMMARY | 2024-05-21 12:50 | XMS_ITS | Encounter Summary ---
Author Organization [facility] Address [address] [place] [address] Care Team Providers Care Director Global Development Name Role Phone Dimas Lau MD Primary Care Provider [phone] Encounter Details Date Type Department Care Team (Late st Contact Info) Description 06/25/2021 Lab Requisition [facility] Pathology & Laboratory Medicine - [address] [address] Outr Resulting Lab, Provider Social History Tobacco [...] Outr Resulting Lab MICROBIOLOGY - GENERAL ORDERABLES [facility] [address] [place] [address] * COVID-19 TESTING (06/25/2021 10:50 EST) COVID-19 rt-PCR Result Negative Negative 06/26/2021 11:40 EST [facility] Comment: This test has [...] history, and epidemiological information. Performed on the Seeker-Industriesher Fusion instrument Performing Lab [place] [employer] Lab 06/26/2021 11:40 EST [facility] Swab 06/25/2021 10:5 0 EST 06/25/2021 22:26 EST Provider Outr Resulting Lab MICROBIOLOGY - GENERAL ORDERABLES [facility] [address] [place] [address] documented in this encounter Visit Diagnoses Not on filedocumented in this encounter Care Teams Director Global Development Relationship Specialty Start Date End Date Dimas Lau MD [address] [place], [place] [address] PCP - General 06/18/15 documented as of this encounter
--- OUTSIDE RECORDS SUMMARY | 2024-05-21 12:50 | XMS_ITS | Encounter Summary ---
Author Organization [facility] [place] [address] Care Team Providers Care Utilities Ground Worker Name Role Phone Dimas Lau MD Primary Care Provider Reason for Visit * Reason Onset Date Comments Medical Care Coordination 06/29/2013 Pt laura y called to [facility] with [facility] Encounter Details Date Type Department Care Team (Late st Contact Info) Description 06/29/2013 Telephone [place] [phone] Lorrie Hansen MD [facility] DR OPHTHALM[place] [address] Medical Care Coordination (Pt very called to speak with [facility]) Social History Tobacco Use Types Packs/Day Years Used Date Smoking Tobacco: Never Assessed Sex and Gender Information Value Date Recorded Sex Assigned at Not on file Gender Identity Not on file Sexual Orientation Not on file documented as of this encounter Plan of Treatment Not on file documented as of this encounter Visit Diagnoses Not on filedocumented in this encounter Care Teams Utilities Ground Worker Relationship Specialty Start Date End Date Dimas Lau MD [address] [place] [address] PCP - General 06/30/10 documented as of this encounter
--- OUTSIDE RECORDS SUMMARY | 2024-05-21 12:50 | XMS_ITS | Encounter Summary ---
[place] [address] Care Team Providers Care Social Studies Teacher Name Role Phone Diams Lau MD Primary Care Provider 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 * Diagnostic Test (Routine) - Closed Specialty Diagnoses / Procedures Referred By Contac t Referred To Contact Radiology Diagnoses Bilateral acoustic neuromas Procedures MRI Brain With/WO Contrast (GENERIC) Joseline Ward ENVIRONMENTAL SERVICES AIDE [facility] [place] [address] [place] [address] Referral ID Status Reason Start Date Expiration Date V isits Requested Visits Authorized [id number] Closed Specialty Service Requested 11/12/2015 11/11/2016 1 1 Reason for Visit * Diagnostic Test (Routine) - Closed Specialty Diagnoses / Procedures Referred By Contac t Referred To Contact Radiology Diagnoses Bilateral acoustic neuromas Procedures MRI Brain With/WO Contrast (GENERIC) Joseline Ward [facility] [place] [address] [place] [address] Referral ID Status Reason Start Date Expiration Date V isits Requested Visits Authorized [id number] Closed Specialty Service Requested 11/12/2015 11/11/2016 1 1 Encounter Details Date Type Department Care Team (Latest Contact Info) Description 12/19/2015 12:26 PM EDT - 12/19/2015 11:59 PM EDT Hospital [place] [address] Alex Lynn MD [facility] [address] [facility] [place] [address] Bilateral acoustic neuromas Discharge Disposition: Home Social [...] mLs documented in this encounter Care Teams Social Studies Teacher Relationship Specialty Start Date End Date Dimas aLu MD [address] [place] [address] PCP - General 06/30/10 documented as of this encounter
--- OUTSIDE RECORDS SUMMARY | 2024-05-21 12:50 | XMS_ITS | Encounter Summary ---
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 He [...] of a prior meningioma, and placement of AMERICAN SIGN LANGUAGE TEACHER shunt due to hydrocephalus following surgery. ROS: [...] nerves documented in this encounter Care Teams Boiler Room Helper Relationship Specialty Start Date End Date Dimas Lau MD [address] [place] [address] PCP - General 06/30/10 documented as of this encounter
--- OUTSIDE RECORDS SUMMARY | 2024-05-21 12:50 | XMS_ITS | Encounter Summary ---
[place] [address] Care Team Providers Care Forest Pathology Professor Name Role Phone Dimas Lau MD Primary Care Provider Encounter Details Date Type Department Care Team (Late st Contact Info) Description 10/27/2017 Telephone [place] [phone] Aida Marcos Social History Tobacco Use Types [...] on filedocumented in this encounter Care Teams Forest Pathology Professor Relationship Specialty Start Date End Date Dimas Lau MD [address] [place] [address] PCP - General 06/30/10 documented as of this encounter
--- OUTSIDE RECORDS SUMMARY | 2024-05-21 12:50 | XMS_ITS | Encounter Summary ---
Author Organization [facility] Address [facility] [place] [address] Care Team Providers Care Tool And Die Maker Level Five Name Role Phone Dimas Lau MD Primary Care Provider [phone] Encounter Details Date Type Department Care Team (Late st Contact Info) Description 12/13/2008 Orders [place] [address] [facility] [place] [address] Social History Tobacco Use Types Packs/Day Years [...] 8:02 PM EDT) Surgical Pathology Report [id number] ? Location: [facility] The signing pathologist has (i) examined the [...] report in rendering the final pathologic diagnosis. [facility] 12/13/2008 8:02 PM EDT Deshawn Mcgregor MD PATHOLOGY/CYTOLOGY ORDERABLES Performing Organization Address City/State/[facility] Co wa Phone Number [facility] documented in this encounter Visit Diagnoses Not on filedocumented in this encounter Care Teams Tool And Die Maker Level Five Relationship Specialty Start Date End Date Dimas Lau MD [address] [place] [address] PCP - General 06/30/10 documented as of this encounter
--- OUTSIDE RECORDS SUMMARY | 2024-05-21 12:50 | XMS_ITS | Encounter Summary ---
[place] [address] Care Team Providers Care Travel Services Professional Name Role Phone Dimas Lau MD Primary Care Provider 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 * Diagnostic Test (Routine) - Closed Specialty Diagnoses / Procedures Referred By Contac t Referred To Contact Radiology Diagnoses Bilateral acoustic neuromas Procedures MRI Brain With/WO Contrast (GENERIC) Joseline Ward APRN [facility] [place] [address] [place] [address] Referral ID Status Reason Start Date Expiration Date V isits Requested Visits Authorized [id number] Closed Specialty Service Requested 11/12/2015 11/11/2016 1 1 Encounter Details Date Type Department Care Team (Late st Contact Info) Description 11/12/2015 Orders [place] [address] Joseline Ward CUT OFF SAW TENDER METAL [facility] [place] [address] Bilateral acoustic neuromas Social History Tobacco Use [...] nerves documented in this encounter Care Teams Travel Services Professional Relationship Specialty Start Date End Date Dimas Lau MD [address] [place] [address] PCP - General 06/30/10 documented as of this encounter
--- OUTSIDE RECORDS SUMMARY | 2024-05-21 12:50 | XMS_ITS | Encounter Summary ---
[place] [address] Care Team Providers Care Data Entry Assistant Name Role Phone Dimas Lau MD Primary Care Provider Encounter Details Date Type Department Care Team (Late st Contact Info) Description 11/02/2017 Telephone [place] [phone] Aida Marcos Social History Tobacco Use Types [...] on filedocumented in this encounter Care Teams Data Entry Assistant Relationship Specialty Start Date End Date Dimas Lau MD [address] [place] [address] PCP - General 06/30/10 documented as of this encounter
--- OUTSIDE RECORDS SUMMARY | 2024-05-21 12:50 | XMS_ITS | Encounter Summary ---
Author Organization [place] [address] Care Team Providers Care Job Estimator Name Role Phone Dimas Lau MD Primary Care Provider Encounter Details Date Type Department Care Team (Late st Contact Info) Description 01/06/2015 3:05 [place] [phone] Kishor Gillette MD [facility] [place] [address] Anesthesia Record Procedure Summary Procedure Name Responsible [...] 01/06/15; median vein left (underside of arm); adxk-fgo-vommrj catheter system; 22 gauge, 1 in length; distraction, intradermal injection, tolerated well, appears comfortable; 01/06/15; 1914 (cannula intact, gauze applied) 01/06/15 0000 by Ashley Hall RN 01/06/151914 by Chelsey Arrieta RN (RETIRED) Peripheral IV Line - Single Lumen 01/06/15; 1510; metacarpal vein left (top of hand); buwt-bik-rlugmy catheter system; 18 gauge; st. naz; 01/06/15; [...] WITH ANESTHESIA performed by Geetha Morales at [facility] ??? Unlisted mr procedure 02/25/2014 MRI WITH ANESTHESIA performed by Geetha Morales at [facility] History Substance Use Topics ??? Smoking [...] anesthesia for evaluation of meningiomas, neurofibromas, and HOTEL BAGGAGE HANDLER shunt. No significant history otherwise. Plan MAC [...] r documented in this encounter Care Teams Job Estimator Relationship Specialty Start Date End Date Dimas Lau MD [address] [place] [address] PCP - General 06/30/10 documented as of this encounter
--- OUTSIDE RECORDS SUMMARY | 2024-05-21 12:50 | XMS_ITS | Encounter Summary ---
[place] [address] Care Team Providers Care Cutter Head Sharpener Name Role Phone Dimas Lau MD Primary Care Provider Encounter Details Date Type Department Care Team (Latest Contact Info) Description 11/28/2012 10:31 AM EDT - 11/28/2012 3:20 PM EDT Hospital Encounter [place] [phone] RESOURCE, ANESTHESIA-Tigist Chong MD [facility] DR [place] [address] Discharge Disposition: Home Social History Tobacco Use [...] 11/28/2012 5:42 PM EDTAssociated Order(s): SCAN DOC: SMOCKING MACHINE OPERATOR documented in this encounter Miscellaneous Notes * Miscellaneous - Provider, Scanning - 11/28/2012 6:06 PM EDT * Miscellaneous - Provider, Scanning - 11/28/2012 11:06 AM EDT documented in this encounter Plan of Treatment Not on file documented as of this encounter Procedures Procedure Name Priority Date/Time Associated Diagnosis Comments MRI WITH ANESTHESIA (WRVU *) 11/28/2012 8:05 PM EDT Neurofibromatosis w/mengioma; ? 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
--- OUTSIDE RECORDS SUMMARY | 2024-05-21 12:50 | XMS_ITS | Encounter Summary ---
Author Organization [facility] [place] [address] Care Team Providers Care Theology Professor Name Role Phone Dimas Lau MD Primary Care Provider Encounter Details Date Type Department Care Team (Latest Contact Info) Description 11/28/2012 12:51 PM EDT - 11/28/2012 11:59 PM EDT Hospital [place] [address] CLINIC, Dimas Vance MD [address] [place] [address] Discharge Disposition: Home Social History [...] IN KNOWN MENINGIOMAS/ACUSTIC NEUROMAS ? EVIDENCE FOR AMMONIA BOX OPERATOR SHUNT MALFUNCTION Comparison MR of the brain [...] IN KNOWN MENINGIOMAS/ACUSTIC NEUROMAS ? EVIDENCE FOR AMMONIA BOX OPERATOR SHUNT MALFUNCTION Comparison MR of the brain [...] on filedocumented in this encounter Care Teams Theology Professor Relationship Specialty Start Date End Date Dimas Lau MD [address] [place] [address] PCP - General 06/30/10 documented as of this encounter
--- OUTSIDE RECORDS SUMMARY | 2024-05-21 12:50 | XMS_ITS | Encounter Summary ---
Author Organization [facility] Address [address] [place] [address] Care Team Providers Care Print Binding And Finishing Worker Name Role Phone Unavailable Primary Care Provider Unavailabl e Encounter Details Date Type Department Care Team (Latest Contact Info) Description 06/02/2001 9:29 EDT - 06/02/2001 11:59 EDT Hospital Encounter [address] [address] [address] Cristina, [address] [place] [address] Discharge Disposition: Auto Discharge Social History Tobacco [...]
--- OUTSIDE RECORDS SUMMARY | 2024-05-21 12:50 | XMS_ITS | Encounter Summary ---
Author Organization [facility] [place] [address] Care Team Providers Care Supervisor Joiners Name Role Phone Dimas Lau MD Primary Care Provider Encounter Details Date Type Department Care Team (Late st Contact Info) Description 12/23/2016 3:19 [place] [phone] Duncan Aponte MD [facility] [place] [address] Anesthesia Record Procedure Summary Procedure Name Responsible [...] 1540; other (see comments) (right upper arm); sbbi-iqj-cibwhu catheter system; 22 gauge; 12/23/16; 1711 12/23/16 [...] Aponte MD - 12/23/2016 5:38 PM EDT [facility] Department of Anesthesiology Post-procedure Note Patient: Hollis Ambriz Procedure Summary Date Anesthesia Start Anesthesia Stop Room / Location 12/23/16 9914 1620 [facility] / [facility] Procedure Diagnosis Surgeon Responsible Provider MRI WITH ANESTHESIA (WRVU *) (N/A Brain) (neurofibromatosis type 2) RESOURCE, ANESTHESIA-Duncan Lerner MD All Anesthesia Providers: Anesthesiologist: Duncan Aponte MD ELECTRONICS WORKER: Alicia Randolph CRNA; Brittney Catherine CRNA Last (1hr) Vitals: BP 112/73 (12/23/16 1700) Temp Pulse Resp 16 (12/23/16 1700) SpO2 99 % (12/23/16 1700) Patient Location: PACU/[facility] Level of Consciousness: Awake and Alert [...] WITH ANESTHESIA performed by Resource, Anesthesia-Guillermina at [facility] ??? PRG UNLISTED MRI PROCEDURE 02/25/2014 MRI WITH ANESTHESIA performed by Resource, Anesthesia-Guillermina at [facility] ??? PRG UNLISTED MRI PROCEDURE N/A 01/06/2015 MRI WITH ANESTHESIA performed by RESOURCE, ANESTHESIA-GUILLERMINA at [facility] ??? PRG UNLISTED MRI PROCEDURE N/A 12/19/2015 MRI WITH ANESTHESIA performed by RESOURCE, ANESTHESIA-GUILLERMINA at [facility] Social History Substance Use Topics ??? Smoking [...] documented in this encounter Care Teams Supervisor Joiners Relationship Specialty Start Date End Date Dimas Lau MD [address] [place] [address] PCP - General 06/30/10 documented as of this encounter
--- OUTSIDE RECORDS SUMMARY | 2024-05-21 12:50 | XMS_ITS | Encounter Summary ---
[place] [address] Care Team Providers Care Skimmer Scoop Operator Name Role Phone Dimas Lau MD Primary Care Provider Encounter Details Date Type Department Care Team (Late st Contact Info) Description 02/25/2014 3:38 [place] [phone] Boyd Joaquin MD [facility] [address] ANESTHESIOLOGY [place] [address] Flora Conroy Anesthesia Record Procedure Summary Procedure [...] 1453; metacarpal vein right (top of hand); gjlr-wsn-ytgykr catheter system; 20 gauge, 1 in length; Masood Hamilton RN; distraction, intradermal injection, tolerated well, appears [...] WITH ANESTHESIA performed by Christine Morales-Guillermina at [facility] History Substance Use Topics ??? Smoking [...] normal Dental Assessment: Comment: Overall poor dentician [facility] Assessment: IV access: Peripheral line Anesthesia Plan: ASA 2 general, with a(n) intravenous induction Patient is a 48 yo male presenting for MRI w/ anesthesia for evaluation of meningiomas, neurofibromas, and AQUATIC DIRECTOR shunt. No significant history otherwise. Plan MAC w/ propofol gtt. Region - Other Informed Consent: Anesthetic plan and risks discussed with patient and mother. Use of blood products discussed with patient and mother whom consented to blood products. Plan discussed with attending. [facility]. Assessment: documented in this encounter Plan of [...] r documented in this encounter Care Teams Skimmer Scoop Operator Relationship Specialty Start Date End Date Dimas Lau MD [address] [place] [address] PCP - General 06/30/10 documented as of this encounter
--- OUTSIDE RECORDS SUMMARY | 2024-05-21 12:50 | XMS_ITS | Encounter Summary ---
Author Organization [facility] [place] [address] Care Team Providers Care Manager Test Name Role Phone Dimas Lau MD Primary Care Provider Encounter Details Date Type Department Care Team (Latest Contact Info) Description 12/25/2010 9:19 AM EDT - 12/25/2010 11:59 PM EDT Hospital [place] [address] CLINIC, Dimas Vance MD [address] [place] [address] Discharge Disposition: Home Social History [...] mLs documented in this encounter Care Teams Manager Test Relationship Specialty Start Date End Date Dimas Lau MD [address] [place] [address] PCP - General 06/30/10 documented as of this encounter
--- OUTSIDE RECORDS SUMMARY | 2024-05-21 12:50 | XMS_ITS | Encounter Summary ---
Author Organization [facility] Address [facility] [place] [address] Care Team Providers Care Environmental Assistant Name Role Phone Dimas Lau MD Primary Care Provider [phone] Encounter Details Date Type Department Care Team (Late st Contact Info) Description 02/25/2014 2:14 PM EDT - 02/25/2014 6:15 PM EDT Hospital Encounter [place] [address] RESOURCE, ANESTHESIA-NICHOL Boyd Marlow MD [facility] [place] [address] Discharge Disposition: Home Social History Tobacco Use [...] reviewed by the attending Dimas Lau MD [facility] MRI ORDERABLES documented in this encounter Visit [...] Aleman) documented in this encounter Care Teams Environmental Assistant Relationship Specialty Start Date End Date Dimas Lau MD [address] [place] [address] PCP - General 06/30/10 documented as of this encounter
--- OUTSIDE RECORDS SUMMARY | 2024-05-21 12:50 | XMS_ITS | Encounter Summary ---
Author Organization [facility] Address [facility] [place] [address] Care Team Providers Care Missile Mechanic Name Role Phone Dimas Lau MD Primary Care Provider Encounter Details Date Type Department Care Team (Latest Contact Info) Description 01/06/2015 2:50 PM EDT - 01/06/2015 11:59 PM EDT Hospital Encounter MRI at [facility] [place] [phone] CLINIC, Denis Durham MD [facility] [place] [address] Discharge Disposition: Home Social History Tobacco Use [...] mLs documented in this encounter Care Teams Missile Mechanic Relationship Specialty Start Date End Date Dimas Lau MD [address] [place] [address] PCP - General 06/30/10 documented as of this encounter
--- OUTSIDE RECORDS SUMMARY | 2024-05-21 12:50 | XMS_ITS | Encounter Summary ---
[place] [address] Care Team Providers Care Napper Runner Name Role Phone Dimas Lau MD Primary Care Provider Encounter Details Date Type Department Care Team (Late st Contact Info) Description 04/20/2013 Abstract [place] [phone] Lorrie Hansen MD [facility] [place] [address] Social History Tobacco Use Types Packs/Day Years Used Date Smoking Tobacco: Never Assessed Sex and Gender Information Value Date Recorded Sex Assigned at Not on file Gender Identity Not on file Sexual Orientation Not on file documented as of this encounter Plan of Treatment Not on file documented as of this encounter Visit Diagnoses Not on filedocumented in this encounter Care Teams Napper Runner Relationship Specialty Start Date End Date Dimas Lau MD [address] [place] [address] PCP - General 06/30/10 documented as of this encounter
--- OUTSIDE RECORDS SUMMARY | 2024-05-21 12:50 | XMS_ITS | Encounter Summary ---
[place] [address] Care Team Providers Care Sewer And Drain Technician Name Role Phone Dimas Lau MD Primary Care Provider Encounter Details Date Type Department Care Team (Late st Contact Info) Description 02/24/2016 [place] [address] Yolie Yoo RN Social History [...] on filedocumented in this encounter Care Teams Sewer And Drain Technician Relationship Specialty Start Date End Date Dimas Lau MD [address] [place] [address] PCP - General 06/30/10 documented as of this encounter
--- OUTSIDE RECORDS SUMMARY | 2024-05-21 12:50 | XMS_ITS | Encounter Summary ---
Author Organization [facility] Address [facility] [place] [address] Care Team Providers Care Rn Travel Name Role Phone Dimas Lau MD Primary Care Provider Encounter Details Date Type Department Care Team (Latest Contact Info) Description 02/17/2012 12:21 PM EDT - 02/17/2012 11:59 PM EDT Hospital Encounter MRI at [facility] [place] [address] CLINIC, Dimas Vance MD [address] [place] [address] Discharge Disposition: Home Social History [...] Diaz RN - 02/14/2012 11:10 AM EDT [facility] NURSING DATABASE Name: YURIY ALCANTAR Date of : 1965 AGE 46 y.o. Address: [address] [place] [address] (home) Mobile: No relevant phone numbers on file. Referring Provider: Dimas aLu Reason for Visit: MRI with IV sedation [...] mg documented in this encounter Care Teams Rn Travel Relationship Specialty Start Date End Date Dimas Lau MD [address] [place] [address] PCP - General 06/30/10 documented as of this encounter
--- OUTSIDE RECORDS SUMMARY | 2024-05-21 12:50 | XMS_ITS | Encounter Summary ---
[place] [address] Care Team Providers Care Edge Grinder Name Role Phone Dimas Lau MD Primary Care Provider [phone] Encounter Details Date Type Department Care Team (Late st Contact Info) Description 02/23/2016 External Results [place] [address] Jane Berrios AUD [facility] [place] [address] Social History Tobacco Use Types Packs/Day Years [...] on filedocumented in this encounter Care Teams Edge Grinder Relationship Specialty Start Date End Date Dimas Lau MD [address] [place] [address] PCP - General 06/30/10 documented as of this encounter
--- OUTSIDE RECORDS SUMMARY | 2024-05-21 12:50 | XMS_ITS | Encounter Summary ---
[place] [address] Care Team Providers Care Last Waxer Name Role Phone Dimas Lau MD Primary Care Provider Encounter Details Date Type Department Care Team (Latest Contact Info) Description 12/19/2015 11:17 AM EDT - 12/19/2015 2:43 PM EDT Hospital Encounter [place] [phone] Stefan Mack MD [facility] [place] [address] Discharge Disposition: Home Social History Tobacco Use [...] RN) documented in this encounter Care Teams Last Waxer Relationship Specialty Start Date End Date Dimas Lau MD [address] [place] [address] PCP - General 06/30/10 documented as of this encounter
--- OUTSIDE RECORDS SUMMARY | 2024-05-21 12:50 | XMS_ITS | Encounter Summary ---
Author Organization [facility] Address [facility] [place] [address] Care Team Providers Care Director Of Retention Name Role Phone Dimas Lau MD Primary Care Provider Encounter Details Date Type Department Care Team (Late st Contact Info) Description 02/20/2016 Telephone [place] [address] Joseline Ward APRN [facility] [place] [address] Social History Tobacco Use Types Packs/Day Years [...] in this encounter Care Teams Director Of Retention Relationship Specialty Start Date End Date Dimas Lau MD [address] [place] [address] PCP - General 06/30/10 documented as of this encounter
--- OUTSIDE RECORDS SUMMARY | 2024-05-21 12:50 | XMS_ITS | Encounter Summary ---
[place] [address] Care Team Providers Care Property Claims Adjuster Name Role Phone Dimas Lau MD Primary Care Provider 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 * Diagnostic Test (Routine) - Closed Specialty Diagnoses / Procedures Referred By Contac t Referred To Contact Radiology Diagnoses Neurofibromatosis, type 2 Loss of balance Meningioma Procedures MRI Brain With/WO Contrast (GENERIC) Dimas Lau MD [address] [place] [address] [place] [address] Referral ID Status Reason Start Date Expiration Date V isits Requested Visits Authorized [id number] Closed Specialty Service Requested 11/22/2016 11/22/2017 1 1 Reason for Visit * Diagnostic Test (Routine) - Closed Specialty Diagnoses / Procedures Referred By Contac t Referred To Contact Radiology Diagnoses Neurofibromatosis, type 2 Loss of balance Meningioma Procedures MRI Brain With/WO Contrast (GENERIC) Dimas Lau MD [address] [place] [address] [place] [address] Referral ID Status Reason Start Date Expiration Date V isits Requested Visits Authorized [id number] Closed Specialty Service Requested 11/22/2016 11/22/2017 1 1 Encounter Details Date Type Department Care Team (Latest Contact Info) Description 12/23/2016 2:50 PM EDT - 12/23/2016 11:59 PM EDT Hospital [place] [address] Dimas Lau MD [address] [place] [address] Neurofibromatosis, type 2; Loss of balance; Meningioma [...] mLs documented in this encounter Care Teams Property Claims Adjuster Relationship Specialty Start Date End Date Dimas Lau MD [address] [place] [address] PCP - General 06/30/10 documented as of this encounter
--- OUTSIDE RECORDS SUMMARY | 2024-05-21 12:50 | XMS_ITS | Referral Summary ---
Author Organization [facility] Address [address] [place] [address] Care Team Providers Care Pruner Name Role Phone Dimas Lau MD Primary Care Provider [phone] Social History Tobacco Use Types Packs/Day Years Used Date Smoking Tobacco: Never Assessed Sex and Gender Information Value Date Recorded Sex Assigned at Not on file Gender Identity Not on file Sexual Orientation Not on file Plan of Treatment Not on file Care Teams Pruner Relationship Specialty Start Date End Date Dimas Lau MD [address] [place] [address] PCP - General 06/18/15
--- OUTSIDE RECORDS SUMMARY | 2024-05-21 12:50 | XMS_ITS | Encounter Summary ---
[place] [address] Care Team Providers Care Statistical Developer Name Role Phone Dimas Lau MD Primary Care Provider Encounter Details Date Type Department Care Team (Late st Contact Info) Description 12/25/2010 9:20 AM EDT - 12/25/2010 11:59 PM EDT Hospital [place] [address] Social History Tobacco Use Types Packs/Day Years [...] Shukla RN - 12/22/2010 10:21 AM EDT [facility] NURSING DATABASE Name: YURIY ALCANTAR Date of : 1965 Address: [address] [place] [address] (home) Referring Provider: Dimas Lau Reason for Visit: MRI with IV sedation Allergies Allergen Reactions ??? Carbamazepine CIS - diarrhea ??? Sulfa (Sulfonamide Antibiotics) CIS - Nausea/Vomiting ??? 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
[2024-05-21] MEDS: cefTRIAXone 2 GM/50 ML BAG IVPB (12:54)
[2024-05-21 13:00] LABS: ALT 40 U/L (16-63); AST 20 U/L (15-37); Albumin 3.4 g/dL (3.4-5.0); Alkaline Phosphatase 114 U/L (46-116); Anion Gap 8.6 mmol/L (3-11); BUN 17 mg/dL (7-18); Bilirubin, Total 0.54 mg/dL (0.2-1.0); CO2 26.4 mmol/L (21.0-32.0); CREATININE 1.3 mg/dL (0.70-1.30); Chloride 99 mmol/L (98-107); Creatine Kinase 150 U/L (39-308); Estimated GFR 63.28 (mL/min/1.73m2); Glucose 100 mg/dL (74-106); Lipase 25 U/L (16-77); Magnesium 1.5 mg/dL (1.8-2.4); Sodium 134 mmol/L (136-145); Total Protein 7.1 g/dL (6.4-8.2)
--- NOTE | 2024-05-21 13:04 | DI.CT_ITS ---
Exam(s) CT RENAL COLIC WO EXAM: CT RENAL COLIC WO CLINICAL HISTORY: ?UTI vs renal stones. TECHNIQUE: Imaging Protocol: Axial computed tomography images with coronal and sagittal reformatted images were created and reviewed. COMPARISON: CT CT ABDOMEN PELVIS W from 07/15/2023 FINDINGS: The examination is limited due to patient motion artifact. ABDOMEN: Lung Bases: Dependent infiltrates in the lung bases bilaterally. Liver: Normal density. No measurable mass. Gallbladder and biliary tract: No radiodense calculus or biliary ductal dilation. Pancreas: Normal density, no abnormal calcifications or inflammatory process. Spleen: Normal. Kidneys: Normal size, contour and axis.Small nonobstructing stones are seen in the right kidney. No ureterolithiasis or hydronephrosis. No masses seen. Adrenal glands: No mass is seen. Lymph nodes: Within normal limits. Abdominal Aorta: Abdominal portion non-dilated. PELVIS: Bladder:There is a Li catheter in place. They urinary bladder is well distended. There is diffus e very mild thickening of the wall of the urinary bladder. Bowel: There are diverticula seen in the colon but no evidence of acute diverticulitis. There is no bowel wall thickening or obstruction. No evidence of appendicitis. Peritoneal cavity: The there is tubing in the abdomen and anterior chest wall consistent with a ventr iculoperitoneal shunt. There is a small amount of fluid seen in the pelvis. No pneumoperitoneum. Reproductive organs: Unremarkable as visualized. Bones: Within normal limits for the patient's age. Soft Tissues: Within normal limits. IMPRESSION: 1. Right nephrolithiasis. No ureterolithiasis or hydronephrosis. 2. Mild diffuse thickening of the wall of the urinary bladder. This may reflect cystitis. Please co rrelate clinically. 3. Ventriculoperitoneal shunt is in place. There is a small amount of fluid in the pelvis which may reflect shunt function. No focal fluid collection is seen in the abdomen or pelvis. 4. Dependent infiltrates seen in the lung bases which may represent atelectasis or pneumonia. Please correlate clinically. 5. Colonic diverticulosis without evidence of acute diverticulitis. RADIATION DOSE DELIVERED: 614.4mGy.cm Total DLP DATA REPOSITORY: All CT scans at this facility are submitted to the National Radiology Data Registry (NRDR) Dose Index Registry (DIR) with the [employer] (ACR). RADIATION OPTIMIZATION: All CT scans at this facility use at least one of these dose optimization te chniques: automated exposure control; mA and/or kV adjustment per patient size (includes targeted exa ms where dose is matched to clinical indication); or iterative reconstruction.
[2024-05-21] MEDS: Lidocaine 2% Jelly 6 ML SYR (13:51)
[2024-05-21 13:52] VITALS: O2SAT 95
--- NOTE | 2024-05-21 13:55 | NUR.NOTE ---
Nursing Note: Li catheter irrigated per MD order d/t minimal drainage into Li bag. Catheter unable to be irrigated due to resistance during installation and no outflow. ED provider notified and catheter changed. Pt tolerated procedure well. New catheter patent and draining.
[2024-05-21 14:00] VITALS: BP 114/58; PULSE 61
[2024-05-21 14:09] LABS: Procalcitonin < 0.1 ng/mL
[2024-05-21 14:15] VITALS: BP 126/71; PULSE 72
== END 2024-05-21 15:35 | disposition home or self-care (01) ==
PROVIDERS: Emergency Provider Physician Assistant; PCP Family Medicine
DX: T83.098A Other mechanical complication of other urinary catheter, initial encounter (principal); J18.9 Pneumonia, unspecified organism; Z98.2 Presence of cerebrospinal fluid drainage device; Z99.3 Dependence on wheelchair
CPT/HCPCS: 80053; 82550; 83690; 84145; 87040; 87077; 96365; 96375; 99284; 74176; 81003; 81015; 83605; 83735; 85025; 87086; 87186; J0131; J0696; J1885

== ENCOUNTER → 2024-06-13 10:23 | Outpatient (BNVA) | payer MEDICARE, MEDICAID, SELFPAY | PROVIDERS: PCP Family Medicine; Referring Provider Family Medicine; Visit Provider Podiatrist | DX: B35.1 Tinea unguium (principal); L60.3 Nail dystrophy; L60.2 Onychogryphosis; I70.203 Unspecified atherosclerosis of native arteries of extremities, bilateral legs; R60.0 Localized edema; I73.89 Other specified peripheral vascular diseases; R09.89 Other specified symptoms and signs involving the circulatory and respiratory systems; L65.9 Nonscarring hair loss, unspecified; R23.8 Other skin changes | CPT/HCPCS: 11719; 11720 ==

== ENCOUNTER → 2024-06-26 10:15 | Outpatient (BNVA) | payer MEDICARE, MEDICAID, SELFPAY | PROVIDERS: PCP Family Medicine; Visit Provider Nurse Practitioner Gerontology ==

== ENCOUNTER 2024-06-26 11:10 | Emergency (ER) | payer MEDICARE, MEDICAID, SELFPAY ==
[2024-06-26 11:15] VITALS: BP 152/80; PULSE 90; RESP 18; TEMP 36.8; O2SAT 98
--- OUTSIDE RECORDS SUMMARY | 2024-06-26 11:18 | XMS_ITS | Encounter Summary ---
[place] [address] Care Team Providers Care Drapery Seamstress Name Role Phone Dimas Lau MD Primary Care Provider Encounter Details Date Type Department Care Team (Late st Contact Info) Description 11/03/2017 Telephone [place] [address] Aida Marcos Social History Tobacco Use Types [...] on filedocumented in this encounter Care Teams Drapery Seamstress Relationship Specialty Start Date End Date Dimas Lau MD [address] [place] [address] PCP - General 06/30/10 documented as of this encounter
--- OUTSIDE RECORDS SUMMARY | 2024-06-26 11:18 | XMS_ITS | Encounter Summary ---
[place] [address] Care Team Providers Care Patient Safety Sitter Name Role Phone Dimas Lau MD Primary Care Provider 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 * Diagnostic Test (Routine) - Closed Specialty Diagnoses / Procedures Referred By Contac t Referred To Contact Radiology Diagnoses Bilateral acoustic neuromas Procedures MRI Brain With/WO Contrast (GENERIC) Joseline Ward WASHING MACHINE MECHANIC [facility] [place] [address] [place] [address] Referral ID Status Reason Start Date Expiration Date V isits Requested Visits Authorized [id number] Closed Specialty Service Requested 11/12/2015 11/11/2016 1 1 Reason for Visit * Diagnostic Test (Routine) - Closed Specialty Diagnoses / Procedures Referred By Contac t Referred To Contact Radiology Diagnoses Bilateral acoustic neuromas Procedures MRI Brain With/WO Contrast (GENERIC) Joseline Ward [facility] [place] [address] [place] [address] Referral ID Status Reason Start Date Expiration Date V isits Requested Visits Authorized [id number] Closed Specialty Service Requested 11/12/2015 11/11/2016 1 1 Encounter Details Date Type Department Care Team (Latest Contact Info) Description 12/19/2015 12:26 PM EDT - 12/19/2015 11:59 PM EDT [place] [address] Alex Lynn MD [facility] [address] [facility] [place] [address] Bilateral acoustic neuromas Discharge Disposition: Home Social [...] mLs documented in this encounter Care Teams Patient Safety Sitter Relationship Specialty Start Date End Date Dimas Lau MD [address] [place] [address] PCP - General 06/30/10 documented as of this encounter
--- OUTSIDE RECORDS SUMMARY | 2024-06-26 11:18 | XMS_ITS | Encounter Summary ---
Author Organization [facility] [place] [address] Care Team Providers Care Computer Support Specialist Instructor Name Role Phone Dimas Lau MD Primary Care Provider Encounter Details Date Type Department Care Team (Latest Contact Info) Description 01/06/2015 1:53 PM EDT - 01/06/2015 7:27 PM EDT Hospital Encounter [place] [address] RESOURCE, ANESTHESIA-NICHOL Kishor Candelario MD [facility] [place] [address] Discharge Disposition: Home Social History Tobacco Use [...] Active and Recently Administered Medications Care Teams Computer Support Specialist Instructor Relationship Specialty Start Date End Date Dimas Lau MD [address] [place] [address] PCP - General 06/30/10 documented as of this encounter
--- OUTSIDE RECORDS SUMMARY | 2024-06-26 11:18 | XMS_ITS | Encounter Summary ---
Author Organization [facility] [place] [address] Care Team Providers Care Patient Assistant Name Role Phone Dimas Lau MD Primary Care Provider Encounter Details Date Type Department Care Team (Late st Contact Info) Description 05/04/2018 Telephone [place] [address] Chelsey Hill, RN Social History [...] - 05/04/2018 10:07 AM EDT Brennan from [facility] ([phone] ext [phone]) phoned to inquire if Dr. Dimas Lau [...] on filedocumented in this encounter Care Teams Patient Assistant Relationship Specialty Start Date End Date Dimas Lau MD [address] [place] [address] PCP - General 06/30/10 documented as of this encounter
--- OUTSIDE RECORDS SUMMARY | 2024-06-26 11:18 | XMS_ITS | Encounter Summary ---
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 He [...] of a prior meningioma, and placement of SENIOR ELECTRICAL PROJECT MANAGER shunt due to hydrocephalus following surgery. ROS: [...] nerves documented in this encounter Care Teams Vocal Artist Relationship Specialty Start Date End Date Dimas Lau MD [address] [place] [address] PCP - General 06/30/10 documented as of this encounter
--- OUTSIDE RECORDS SUMMARY | 2024-06-26 11:18 | XMS_ITS | Encounter Summary ---
[place] [address] Care Team Providers Care Social Science Instructor Name Role Phone Dimas Lau MD Primary Care Provider [phone] Encounter Details Date Type Department Care Team (Late st Contact Info) Description 02/23/2016 External Results [place] [address] Jane Berrios AUD [facility] [address] Social History Tobacco Use Types Packs/Day Years [...] on filedocumented in this encounter Care Teams Social Science Instructor Relationship Specialty Start Date End Date Dimas Lau MD [address] [place] [address] PCP - General 06/30/10 documented as of this encounter
--- OUTSIDE RECORDS SUMMARY | 2024-06-26 11:18 | XMS_ITS | Encounter Summary ---
[place] [address] Care Team Providers Care Account Group Supervisor Name Role Phone Dimas Lau MD Primary Care Provider Encounter Details Date Type Department Care Team (Late st Contact Info) Description 05/03/2018 Telephone [place] [address] Catrina Lopez Social History Tobacco Use Types [...] on filedocumented in this encounter Care Teams Account Group Supervisor Relationship Specialty Start Date End Date Dimas Lau MD [address] [place] [address] PCP - General 06/30/10 documented as of this encounter
--- OUTSIDE RECORDS SUMMARY | 2024-06-26 11:18 | XMS_ITS | Encounter Summary ---
[place] [address] Care Team Providers Care Refinery Operator Helper Crude Unit Name Role Phone Dimas Lau MD Primary Care Provider Encounter Details Date Type Department Care Team (Late st Contact Info) Description 11/02/2017 Telephone [place] [address] Aida Marcos Social History Tobacco Use Types [...] on filedocumented in this encounter Care Teams Refinery Operator Helper Crude Unit Relationship Specialty Start Date End Date Dimas Lau MD [address] [place] [address] PCP - General 06/30/10 documented as of this encounter
--- OUTSIDE RECORDS SUMMARY | 2024-06-26 11:18 | XMS_ITS | Encounter Summary ---
[place] [address] Care Team Providers Care Ad Setter Name Role Phone Dimas Lau MD Primary Care Provider Encounter Details Date Type Department Care Team (Latest Contact Info) Description 12/23/2016 1:39 PM EDT - 12/23/2016 5:19 PM EDT Hospital Encounter [place] [address] Duncan Aponte MD [facility] DR ANESTHESIOLOGY DEPT [place] [id number] Discharge Disposition: Home Social History Tobacco Use [...] Routine documented in this encounter Care Teams Ad Setter Relationship Specialty Start Date End Date Dimas Lau MD [address] [place] [address] PCP - General 06/30/10 documented as of this encounter
--- OUTSIDE RECORDS SUMMARY | 2024-06-26 11:18 | XMS_ITS | Encounter Summary ---
Author Organization [facility] Address [facility] [place] [address] Care Team Providers Care Holistic Nutritionist Name Role Phone Dimas Lau MD Primary Care Provider Encounter Details Date Type Department Care Team (Latest Contact Info) Description 01/06/2015 2:50 PM EDT - 01/06/2015 11:59 PM EDT Hospital Encounter MRI at [facility] [place] [address] CLINIC, Dneis Durham MD [facility] [place] [address] Discharge Disposition: Home Social History Tobacco Use [...] mLs documented in this encounter Care Teams Holistic Nutritionist Relationship Specialty Start Date End Date Dimas Lau MD [address] [place] [address] PCP - General 06/30/10 documented as of this encounter
--- OUTSIDE RECORDS SUMMARY | 2024-06-26 11:18 | XMS_ITS | Encounter Summary ---
Author Organization [facility] [place] [address] Care Team Providers Care Teller Vault Name Role Phone Dimas Lau MD Primary Care Provider Encounter Details Date Type Department Care Team (Late st Contact Info) Description 04/26/2018 1:00 [place] [address] Jerry, Danny Palacios MD [facility] DR ANESTHESIOLOGY [place] [address] Adwoa Mendez Anesthesia Record Procedure Summary Procedure [...] 1211; metacarpal vein (top of hand), right; [id number] catheter system; 20 gauge, 1 in length; [...] Edwards MD - 04/26/2018 4:54 PM EDT [facility] Department of Anesthesiology Post-procedure Note Patient: Hollis Ambriz Procedure Summary Date Anesthesia Start Anesthesia Stop Room / Location 04/26/18 1300 1629 [facility] ADULT RADIOLOGY / [facility] Procedure Diagnosis Surgeon Responsible Provider MRI WITH ANESTHESIA (WRVU *) (N/A ) (NEUROFIBROMATOSIS) RESOURCE, ANESTHESIA- GUILLERMINA Danny Edwards MD All Anesthesia Providers: Anesthesiologist: Danny Edwards MD GALLERY OR MUSEUM GUIDE: Brittney Catherine CRNA Most Recent Vitals: 04/26/18 1630 BP: 107/67 Pulse: Resp: (P) 18 Temp: SpO2: 96% Pain (P) 0 (04/26/18 1625) Patient Location: PACU/[facility] Level of Consciousness: Awake and [...] his anesthetic course for his mother and home health outreach coordinator. * Anesthesia Preprocedure Evaluation - [facility], Danny Palacios MD - 04/26/2018 12:27 PM [...] WITH ANESTHESIA performed by Jair, Anesthesia-Guillermina at [facility] ??? PRG UNLISTED MRI PROCEDURE 02/25/2014 MRI WITH ANESTHESIA performed by Resource, Anesthesia-Guillermina at [facility] ??? PRG UNLISTED MRI PROCEDURE N/A 01/06/2015 MRI WITH ANESTHESIA performed by JAIR ANESTHESIA-GUILLERMINA at [facility] ??? PRG UNLISTED MRI PROCEDURE N/A 12/19/2015 MRI WITH ANESTHESIA performed by JAIR, ANESTHESIA-GUILLERMINA at [facility] ??? PRG UNLISTED MRI PROCEDURE N/A 12/23/2016 MRI WITH ANESTHESIA (WRVU *) performed by JAIR ANESTHESIA-GUILLERMINA at [facility] Social History Substance Use Topics ??? Smoking [...] neurofibromatosis, meningionmas, bilateral accoustic neuromas, and vp platforms shunt. He has screening MRI yearly. He [...] risks discussed with patient. Plan discussed with GALLERY OR MUSEUM GUIDE. PAT Staff Note documented in this encounter [...] r documented in this encounter Care Teams Teller Vault Relationship Specialty Start Date End Date Dimas Lau MD [address] [place] [address] PCP - General 06/30/10 documented as of this encounter
--- OUTSIDE RECORDS SUMMARY | 2024-06-26 11:18 | XMS_ITS | Encounter Summary ---
[place] [address] Care Team Providers Care Logistics Associate Name Role Phone Dimas Lau MD Primary Care Provider Encounter Details Date Type Department Care Team (Late st Contact Info) Description 12/19/2015 12:30 PM EDT - 12/19/2015 1:50 [place] [address] RESOURCE, ANESTHESIA-NICHOL None MRI WITH ANESTHESIA (WRVU [...] RN) documented in this encounter Care Teams Logistics Associate Relationship Specialty Start Date End Date Dimas Lau MD [address] [place] [address] PCP - General 06/30/10 documented as of this encounter
--- OUTSIDE RECORDS SUMMARY | 2024-06-26 11:18 | XMS_ITS | Encounter Summary ---
[place] [address] Care Team Providers Care Managed Care Provider Name Role Phone Dimas Lau MD Primary Care Provider [phone] 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 * Diagnostic Test (Routine) - Closed Specialty Diagnoses / Procedures Referred By Contac t Referred To Contact Radiology Diagnoses Neurofibromatosis, type 2 Loss of balance Meningioma Procedures MRI Brain With/WO Contrast (GENERIC) Dimas Lau MD [address] [place] [address] [place] [address] Referral ID Status Reason Start Date Expiration Date V isits Requested Visits Authorized [id number] Closed Specialty Service Requested 11/22/2016 11/22/2017 1 1 Reason for Visit * Diagnostic Test (Routine) - Closed Specialty Diagnoses / Procedures Referred By Contac t Referred To Contact Radiology Diagnoses Neurofibromatosis, type 2 Loss of balance Meningioma Procedures MRI Brain With/WO Contrast (GENERIC) Dimas Lau MD [address] [place] [address] [place] [address] Referral ID Status Reason Start Date Expiration Date V isits Requested Visits Authorized [id number] Closed Specialty Service Requested 11/22/2016 11/22/2017 1 1 Encounter Details Date Type Department Care Team (Latest Contact Info) Description 12/23/2016 2:50 PM EDT - 12/23/2016 11:59 PM EDT [place] [address] Dimas Lau MD [address] [place] [address] Neurofibromatosis, type 2; Loss of balance; Meningioma [...] mLs documented in this encounter Care Teams Managed Care Provider Relationship Specialty Start Date End Date Dimas Lau MD [address] [place] [address] PCP - General 06/30/10 documented as of this encounter
--- OUTSIDE RECORDS SUMMARY | 2024-06-26 11:18 | XMS_ITS | Encounter Summary ---
Author Organization [facility] Address [facility] [place] [address] Care Team Providers Care Door To Door Sales Representative Name Role Phone Dimas Lau MD Primary Care Provider Encounter Details Date Type Department Care Team (Late st Contact Info) Description 11/12/2015 Orders [place] [phone] Alex Lynn MD [facility] [place] [address] Social History Tobacco Use Types Packs/Day Years [...] on filedocumented in this encounter Care Teams Door To Door Sales Representative Relationship Specialty Start Date End Date Dimas Lau MD [address] [place], [place] [address] PCP - General 06/30/10 documented as of this encounter
--- OUTSIDE RECORDS SUMMARY | 2024-06-26 11:18 | XMS_ITS | Encounter Summary ---
Author Organization [facility] Address [facility] [place] [address] Care Team Providers Care Plastics And Composites Inspector Name Role Phone Dimas Lau MD Primary Care Provider [phone] Reason for Visit * Reason Comments Acoustic Neuroma Bilateral , ref by N euro Encounter Details Date Type Department Care Team (Late st Contact Info) Description 02/13/2016 1:00 PM EDT Office Visit Otolaryngology at [facility] [place] [address] Perico Ball MD [facility] DR OTOLARYNGOLOGY [place] [id number] Acoustic neuroma syndrome, right; Meningioma of cerebellum; [...] chromosome documented in this encounter Care Teams Plastics And Composites Inspector Relationship Specialty Start Date End Date Dimas Lau MD [address] [place] [address] PCP - General 06/30/10 documented as of this encounter
--- OUTSIDE RECORDS SUMMARY | 2024-06-26 11:18 | XMS_ITS | Encounter Summary ---
[place] [address] Care Team Providers Care Tow Mate Name Role Phone Dimas Lau MD Primary Care Provider [phone] Encounter Details Date Type Department Care Team (Latest Contact Info) Description 12/19/2015 11:17 AM EDT - 12/19/2015 2:43 PM EDT Hospital Encounter [place] [phone] Stefan Mack MD [facility] [place] [address] Discharge Disposition: Home Social History Tobacco Use [...] RN) documented in this encounter Care Teams Tow Mate Relationship Specialty Start Date End Date Dimas Lau MD [address] [place] [address] PCP - General 06/30/10 documented as of this encounter
--- OUTSIDE RECORDS SUMMARY | 2024-06-26 11:18 | XMS_ITS | Clinical Summary ---
Author Organization [facility] [place] [address] Care Team Providers Care Transfer Agent Name Role Phone Dimas Lau MD Primary [...] Advance Directive 10/25/2019 Covid-19 Vaccine (1 - 2023- season) 2024 Influenza (Flu) vaccine (1 o f 1 - Influenza standard series) 04/08/2024 Medical Devices Implanted Type Area Devulcanizer Tender Device Identifier Shelf Expiration Date Model / Serial / Lot Quality Intern Shunt Other Description:DYNAMITE PACKING MACHINE OPERATOR SHUNT PLACED IN 1993. MRI Conditional up to 1.5T. Shraddha Lynn MRI Safety Technologist 11/02/2017 Advance Directives * Full Code (Latest Code Status on File) Date Activated Date Inactivated Comments 12/19/2015 12:19 PM 12/19/2015 4:44 PM Question Answer Comments Does patient have capacity to make decision: Yes Care Teams Transfer Agent Relationship Specialty Start Date End Date Dimas Lau MD [address] [place] [address] PCP - General 06/30/10
--- OUTSIDE RECORDS SUMMARY | 2024-06-26 11:18 | XMS_ITS | Encounter Summary ---
Author Organization [facility] [place] [address] Care Team Providers Care Investigator Vice Name Role Phone Dimas Lau MD Primary Care Provider [phone] Encounter Details Date Type Department Care Team (Late st Contact Info) Description 12/23/2016 3:19 [place] [phone] Duncan Aponte MD [facility] [place] [address] Anesthesia Record Procedure Summary Procedure Name Responsible [...] 1540; other (see comments) (right upper arm); ddph-skv-nlkbvd catheter system; 22 gauge; 12/23/16; 1711 12/23/16 [...] Aponte MD - 12/23/2016 5:38 PM EDT [facility] Department of Anesthesiology Post-procedure Note Patient: Hollis Ambriz Procedure Summary Date Anesthesia Start Anesthesia Stop Room / Location 12/23/16 2746 1622 [facility] ADULT RADIOLOGY / [facility] Procedure Diagnosis Surgeon Responsible Provider MRI WITH ANESTHESIA (WRVU *) (N/A Brain) (neurofibromatosis type 2) RESOURCE, ANESTHESIA-Duncan Lerner MD All Anesthesia Providers: Anesthesiologist: Duncan Aponte MD AGRICULTURE PROFESSOR: Alicia Randolph CRNA; Brittney Catherine CRNA Last (1hr) Vitals: BP 112/73 (12/23/16 1700) Temp Pulse Resp 16 (12/23/16 1700) SpO2 99 % (12/23/16 1700) Patient Location: PACU/[facility] Level of Consciousness: Awake and Alert Pain Management: Satisfactory Analgesia PONV: None Cardiovascular Status: At Baseline and Hemodynamically Stable Respiratory Status: At Baseline and Room Air Postoperative Fluid Status: Intravascular EUvolemia Possible Anesthetic Complications: NONE apparent at time of evaluation Final Primary Anesthesia Type: MAC (The anesthetic type performed was the same as planned.) Comments: At baseline mental status Ducnan Aponte MD * Anesthesia Preprocedure Evaluation - [...] WITH ANESTHESIA performed by Resource, Anesthesia-Guillermina at [facility] ??? PRG UNLISTED MRI PROCEDURE 02/25/2014 MRI WITH ANESTHESIA performed by Resource, Anesthesia-Guillermina at [facility] ??? PRG UNLISTED MRI PROCEDURE N/A 01/06/2015 MRI WITH ANESTHESIA performed by RESOURCE, ANESTHESIA-GUILLERMINA at [facility] ??? PRG UNLISTED MRI PROCEDURE N/A 12/19/2015 MRI WITH ANESTHESIA performed by RESOURCE, ANESTHESIA-GUILLERMINA at [facility] Social History Substance Use Topics ??? [...] r documented in this encounter Care Teams Investigator Vice Relationship Specialty Start Date End Date Dimas Lau MD [address] [place] [address] PCP - General 06/30/10 documented as of this encounter
--- OUTSIDE RECORDS SUMMARY | 2024-06-26 11:18 | XMS_ITS | Encounter Summary ---
[place] [address] Care Team Providers Care Counter Top Maker Name Role Phone Dimas Lau MD Primary Care Provider [phone] Encounter Details Date Type Department Care Team (Late st Contact Info) Description 10/27/2017 Telephone [place] [phone] Aida Marcos Social History Tobacco Use Types [...] on filedocumented in this encounter Care Teams Counter Top Maker Relationship Specialty Start Date End Date Dimas Lau MD [address] [place] [address] PCP - General 06/30/10 documented as of this encounter
--- OUTSIDE RECORDS SUMMARY | 2024-06-26 11:18 | XMS_ITS | Encounter Summary ---
Author [place] [address] Care Team Providers Care Wheel Blocker Name Role Phone Dimas Lau MD Primary Care Provider Encounter Details Date Type Department Care Team (Late st Contact Info) Description 12/23/2016 2:50 PM EDT - 12/23/2016 4:10 [place] [address] RESOURCE, ANESTHESIA-NICHOL None MRI WITH ANESTHESIA (WRVU [...] Routine documented in this encounter Care Teams Wheel Blocker Relationship Specialty Start Date End Date Dimas Lau MD [address] [place] [address] PCP - General 06/30/10 documented as of this encounter
--- OUTSIDE RECORDS SUMMARY | 2024-06-26 11:18 | XMS_ITS | Encounter Summary ---
Author Organization [facility] [place] [address] Care Team Providers Care Concrete Products Machine Operator Name Role Phone Dimas Lau MD Primary Care Provider Encounter Details Date Type Department Care Team (Latest Contact Info) Description 04/26/2018 11:03 AM EDT - 04/26/2018 5:52 PM EDT Hospital Encounter [place] [phone] Jerry, Danny Palacios MD [facility] [place] [address] Discharge Disposition: Home Social History Tobacco Use [...] CRNA) documented in this encounter Care Teams Concrete Products Machine Operator Relationship Specialty Start Date End Date Dimas Lau MD [address] [place] [address] PCP - General 06/30/10 documented as of this encounter
--- OUTSIDE RECORDS SUMMARY | 2024-06-26 11:18 | XMS_ITS | Encounter Summary ---
Author Organization [facility] Address [facility] Philip [facility] [place] [address] Care Team Providers Care Survey And Mapping Technician Name Role Phone Dimas Lau MD Primary Care Provider Encounter Details Date Type Department Care Team (Late st Contact Info) Description 02/20/2016 Telephone [place] [phone] Joseline Ward APRN [facility] [place] [address] Social History Tobacco Use Types Packs/Day Years [...] on filedocumented in this encounter Care Teams Survey And Mapping Technician Relationship Specialty Start Date End Date Dimas Lau MD [address] [place] [address] PCP - General 06/30/10 documented as of this encounter
--- OUTSIDE RECORDS SUMMARY | 2024-06-26 11:18 | XMS_ITS | Encounter Summary ---
[place] [address] Care Team Providers Care Manager Material Name Role Phone Dimas Lau MD Primary Care Provider Encounter Details Date Type Department Care Team (Late st Contact Info) Description 01/06/2015 2:50 PM EDT - 01/06/2015 4:50 [place] [address] RESOURCE, ANESTHESIA-NICHOL None MRI WITH ANESTHESIA (WRVU [...] Active and Recently Administered Medications Care Teams Manager Material Relationship Specialty Start Date End Date Dimas Lau MD [address] [place] [address] PCP - General 06/30/10 documented as of this encounter
--- OUTSIDE RECORDS SUMMARY | 2024-06-26 11:18 | XMS_ITS | Encounter Summary ---
Author Organization [facility] Address [facility] [place] [address] Care Team Providers Care Placing Judge Name Role Phone Dimas Lau MD Primary Care Provider Encounter Details Date Type Department Care Team (Late st Contact Info) Description 11/01/2017 Orders Only [place] [phone] Joseline Ward APRN [facility] [place] [address] NF2-related schwannomatosis; Acoustic neuroma Social History Tobacco [...] nerves documented in this encounter Care Teams Placing Judge Relationship Specialty Start Date End Date Dimas Lau MD [address] [place] [address] PCP - General 06/30/10 documented as of this encounter
--- OUTSIDE RECORDS SUMMARY | 2024-06-26 11:18 | XMS_ITS | Encounter Summary ---
[place] [address] Care Team Providers Care Pamphlet Distributor Name Role Phone Dimas Lau MD Primary Care Provider [phone] Encounter Details Date Type Department Care Team (Late st Contact Info) Description 12/19/2015 12:49 PM EDT [place] [address] Stefan Hatfield MD [facility] [place] [address] Alexsandra Van CRNA [facility] [place] [address] Anesthesia Record Procedure Summary Procedure Name Responsible [...] an stop data 1402 Transport Transport to [facility] 1407 Recovery or ICU Handoff Giovanna [...] 1245; median vein right (underside of arm); wnye-msk-xablnf catheter system; 22 gauge, 1 in length; [...] Hatfield MD - 12/19/2015 4:10 PM EDT [facility] Department of Anesthesiology Post-procedure Note Patient: Hollis Ambriz Procedure Summary Date Anesthesia Start Anesthesia Stop Room / Location 12/19/15 7734 6250 [facility] ADULT RADIOLOGY / [facility] Procedure Diagnosis Surgeon Responsible Provider MRI WITH ANESTHESIA (N/A Brain) (BILATERAL ACOUSTIC NEUROMAS; NF, BILATERAL ACOUSTIC NEUROMA, MULTIPLE MENINGIOMAS, EVALUATE FOR CHANGE; IAC PROTOCAL FOR SKULL BASE ) RESOURCE, ANESTHESIA-Stefan Zapien MD All Anesthesia Providers: Anesthesiologist: Stefan [place]field MD CHIEF SECURITY AND SAFETY OFFICER: Lit Bradley CRNA Last (1hr) Vitals: BP [...] 11/28/2012 MRI WITH ANESTHESIA performed by Jair Anesthesia-Guillerimna at [facility] ??? Unlisted mr procedure 02/25/2014 MRI WITH ANESTHESIA performed by Jair, Anesthesia-Guillermina at [facility] ??? Unlisted mr procedure N/A 01/06/2015 MRI WITH ANESTHESIA performed by JAIR, ANESTHESIA-GUILLERMINA at [facility] History Substance Use Topics ??? Smoking status: [...] MRI to evaluate meningionmas, bilateral accoustic neuromas, svp operations shunt, neurofibromatoma Has screening MRI yearly [...] legal guardian and mother. Plan discussed with CHIEF SECURITY AND SAFETY OFFICER. PAT Staff Note documented in this encounter [...] hr documented in this encounter Care Teams Pamphlet Distributor Relationship Specialty Start Date End Date Dimas Lau MD [address] [place] [address] PCP - General 06/30/10 documented as of this encounter
--- OUTSIDE RECORDS SUMMARY | 2024-06-26 11:18 | XMS_ITS | Encounter Summary ---
[place] [address] Care Team Providers Care Critical Care Transport Nurse Name Role Phone Dimas Lau MD Primary Care Provider [phone] 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 * Diagnostic Test (Routine) - Closed Specialty Diagnoses / Procedures Referred By Contac t Referred To Contact Radiology Diagnoses Loss of balance Procedures MRI Total Spine wwo Contrast Dimas Lau MD [address] [place] [address] [place] [address] Referral ID Status Reason Start Date Expiration Date V isits Requested Visits Authorized [id number] Closed Specialty Service Requested 02/15/2018 02/15/2019 1 1 * Diagnostic Test (Routine) - Specialty Diagnoses / Procedures Referred By Contac t Referred To Contact Radiology Diagnoses Loss of balance Procedures MRI Brain wwo Contrast (Generic) Dimas Lau MD [address] [place] [address] [place] [address] Referral ID Status Reason Start Date Expiration Date Visits Requested Visits Authorized [id number] Specialty Service Requested 02/15/2018 02/15/2019 1 1 Reason for Visit * Diagnostic Test (Routine) - Closed Specialty Diagnoses / Procedures Referred By Contac t Referred To Contact Radiology Diagnoses Loss of balance Procedures MRI Total Spine wwo Contrast Dimas Lau MD [address] [place] [address] [address] [facility] [place] [address] Referral ID Status Reason Start Date Expiration Date V isits Requested Visits Authorized [id number] Closed Specialty Service Requested 02/15/2018 02/15/2019 1 1 Encounter Details Date Type Department Care Team (Latest Contact Info) Description 04/26/2018 12:30 PM EDT - 04/26/2018 11:59 PM EDT Hospital [place] [address] Dimas Lau MD [address] [place] [address] Loss of balance Discharge Disposition: [...] areas of CSF pulsation artifact on axial [id number]. No extra-axial enhancing mass is identified. Lumbar [...] may represent small schwannoma. Dimas Lau MD [facility] [place] MRI ORDERABLES * MRI Brain wwo Contrast [...] areas of CSF pulsation artifact on axial [id number]. No extra-axial enhancing mass is identified. Lumbar [...] mLs documented in this encounter Care Teams Critical Care Transport Nurse Relationship Specialty Start Date End Date Dimas Lau MD [address] [place] [address] PCP - General 06/30/10 documented as of this encounter
--- OUTSIDE RECORDS SUMMARY | 2024-06-26 11:18 | XMS_ITS | Encounter Summary ---
[place] [address] Care Team Providers Care Machine Engineer Name Role Phone Dimas Lau MD Primary Care Provider Encounter Details Date Type Department Care Team (Late st Contact Info) Description 03/17/2018 Telephone [place] [address] Catrina Lopez Social History Tobacco Use Types [...] on filedocumented in this encounter Care Teams Machine Engineer Relationship Specialty Start Date End Date Dimas Lau MD [address] [place] [address] PCP - General 06/30/10 documented as of this encounter
--- OUTSIDE RECORDS SUMMARY | 2024-06-26 11:18 | XMS_ITS | Encounter Summary ---
Author [place] [address] Care Team Providers Care Display Director Name Role Phone Dimas Lau MD Primary Care Provider Encounter Details Date Type Department Care Team (Late st Contact Info) Description 04/26/2018 12:30 PM EDT - 04/26/2018 3:30 [place] [address] RESOURCE, ANESTHESIA-NICHOL None MRI WITH ANESTHESIA (WRVU [...] CRNA) documented in this encounter Care Teams Display Director Relationship Specialty Start Date End Date Dimas Lau MD [address] [place] [address] PCP - General 06/30/10 documented as of this encounter
--- OUTSIDE RECORDS SUMMARY | 2024-06-26 11:18 | XMS_ITS | Encounter Summary ---
[place] [address] Care Team Providers Care Electronic Equipment Maint Tech Name Role Phone Dimas Lau MD Primary Care Provider 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 * Diagnostic Test (Routine) - Closed Specialty Diagnoses / Procedures Referred By Contac t Referred To Contact Radiology Diagnoses Bilateral acoustic neuromas Procedures MRI Brain With/WO Contrast (GENERIC) Joseline Ward APRN [facility] [place] [address] [place] [address] Referral ID Status Reason Start Date Expiration Date V isits Requested Visits Authorized [id number] Closed Specialty Service Requested 11/12/2015 11/11/2016 1 1 Encounter Details Date Type Department Care Team (Late st Contact Info) Description 11/12/2015 Orders [place] [address] Joseline Ward RODEO PERFORMER [facility] [place] [address] Bilateral acoustic neuromas Social History Tobacco Use [...] nerves documented in this encounter Care Teams Electronic Equipment Maint Tech Relationship Specialty Start Date End Date Dimas Lau MD [address] [place] [address] PCP - General 06/30/10 documented as of this encounter
--- OUTSIDE RECORDS SUMMARY | 2024-06-26 11:18 | XMS_ITS | Encounter Summary ---
Author Organization [facility] [place] [address] Care Team Providers Care Precision Machining Instructor Name Role Phone Dimas Lau MD Primary Care Provider Encounter Details Date Type Department Care Team (Late st Contact Info) Description 01/06/2015 3:05 PM ED[place] [phone] Kishor Gillette MD [facility] [place] [address] Anesthesia Record Procedure Summary Procedure Name Responsible [...] 01/06/15; median vein left (underside of arm); ijyv-jgy-ykaayt catheter system; 22 gauge, 1 in length; distraction, intradermal injection, tolerated well, appears comfortable; 01/06/15; 1914 (cannula intact, gauze applied) 01/06/15 0000 by Ashley Hall RN 01/06/151914 by Chelsey Arrieta RN (RETIRED) Peripheral IV Line - Single Lumen 01/06/15; 1510; metacarpal vein left (top of hand); nwvl-yol-vxrasl catheter system; 18 gauge; st. naz; 01/06/15; [...] WITH ANESTHESIA performed by Geetha Morales at [facility] ??? Unlisted mr procedure 02/25/2014 MRI WITH ANESTHESIA performed by Geetha Morales at [facility] History Substance Use Topics ??? 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 No significant history otherwise. Plan MAC [...] r documented in this encounter Care Teams Precision Machining Instructor Relationship Specialty Start Date End Date Dimas Lau MD [address] [place] [address] PCP - General 06/30/10 documented as of this encounter
--- OUTSIDE RECORDS SUMMARY | 2024-06-26 11:18 | XMS_ITS | Encounter Summary ---
[place] [address] Care Team Providers Care Director Of Scientific Research Name Role Phone Dimas Lau MD Primary Care Provider Encounter Details Date Type Department Care Team (Late st Contact Info) Description 02/24/2016 Tele[place] [address] Yolie Yoo RN Social History [...] in this encounter Care Teams Director Of Scientific Research Relationship Specialty Start Date End Date Dimas Lau MD [address] [place] [address] PCP - General 06/30/10 documented as of this encounter
--- OUTSIDE RECORDS SUMMARY | 2024-06-26 11:19 | XMS_ITS | Encounter Summary ---
Author Organization [facility] Address [facility] [place] [address] Care Team Providers Care Managing Partner Name Role Phone Dimas Lau MD Primary Care Provider [phone] Encounter Details Date Type Department Care Team (Late st Contact Info) Description 12/13/2008 Orders [place] [address] Deshawn Mcgregor MD [facility] [place] [address] Social History Tobacco Use Types Packs/Day Years [...] 8:02 PM EDT) Surgical Pathology Report [id number] ? Location: [facility] The signing pathologist has (i) examined [...] report in rendering the final pathologic diagnosis. [facility] 12/13/2008 8:02 PM EDT Deshawn Mcgregor MD PATHOLOGY/CYTOLOGY ORDERABLES Performing Organization Address City/State/[facility] Co or Phone Number [facility] documented in this encounter Visit Diagnoses Not on filedocumented in this encounter Care Teams Managing Partner Relationship Specialty Start Date End Date Dimas Lau MD [address] [place] [address] PCP - General 06/30/10 documented as of this encounter
--- OUTSIDE RECORDS SUMMARY | 2024-06-26 11:19 | XMS_ITS | Referral Summary ---
Author Organization [facility] Address [address] [place] [address] Care Team Providers Care Technology Applications Engineer Name Role Phone Dimas Lau MD Primary Care Provider [phone] Social History Tobacco Use Types Packs/Day Years Used Date Smoking Tobacco: Never Assessed Sex and Gender Information Value Date Recorded Sex Assigned at Not on file Legal Sex Male 18:14 EST Gender Identity Not on file Sexual Orientation Not on file Plan of Treatment Not on file Care Teams Technology Applications Engineer Relationship Specialty Start Date End Date Dimas Lau MD [address] [place] [address] PCP - General 06/18/15
--- OUTSIDE RECORDS SUMMARY | 2024-06-26 11:19 | XMS_ITS | Encounter Summary ---
Author Organization [facility] [place] [address] Care Team Providers Care Outboard Motors Experimental Mechanic Name Role Phone Dimas Lau MD Primary Care Provider [phone] Encounter Details Date Type Department Care Team (Latest Contact Info) Description 11/28/2012 12:51 PM EDT - 11/28/2012 11:59 PM EDT Hospital [place] [address] CLINIC, Dimas Vance MD [address] [place] [address] Discharge Disposition: Home Social History [...] IN KNOWN MENINGIOMAS/ACUSTIC NEUROMAS ? 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
--- OUTSIDE RECORDS SUMMARY | 2024-06-26 11:19 | XMS_ITS | Encounter Summary ---
[place] [address] Care Team Providers Care Greenhouse Laborer Name Role Phone Dimas Lau MD Primary Care Provider [phone] Encounter Details Date Type Department Care Team (Late st Contact Info) Description 04/20/2013 [place] [id number] Lorrie Hansen MD [facility] [place] [address] Social History Tobacco Use Types Packs/Day Years Used Date Smoking Tobacco: Never Assessed Sex and Gender Information Value Date Recorded Sex Assigned at Not on file Gender Identity Not on file Sexual Orientation Not on file documented as of this encounter Plan of Treatment Not on file documented as of this encounter Visit Diagnoses Not on filedocumented in this encounter Care Teams Greenhouse Laborer Relationship Specialty Start Date End Date Dimas Lau MD [address] [place] [address] PCP - General 06/30/10 documented as of this encounter
--- OUTSIDE RECORDS SUMMARY | 2024-06-26 11:19 | XMS_ITS | Encounter Summary ---
Author Organization [facility] Address [facility] [place] [address] Care Team Providers Care Floor Coverer Name Role Phone Dimas Lau MD Primary Care Provider [phone] Encounter Details Date Type Department Care Team (Latest Contact Info) Description 02/17/2012 12:21 PM EDT - 02/17/2012 11:59 PM EDT Hospital Encounter MRI at [facility] [place] [address] CLINIC, Dimas Vance MD [address] [place] [address] Discharge Disposition: Home Social History [...] Diaz RN - 02/14/2012 11:10 AM EDT [facility] NURSING DATABASE Name: YURIY ALCANTAR Date of : 1965 AGE 46 y.o. Address: [address] [place] [address] (home) Mobile: No relevant phone numbers on [...] mg documented in this encounter Care Teams Floor Coverer Relationship Specialty Start Date End Date Dimas Lau MD [address] [place] [address] PCP - General 06/30/10 documented as of this encounter
--- OUTSIDE RECORDS SUMMARY | 2024-06-26 11:19 | XMS_ITS | Encounter Summary ---
Author Organization [facility] Address [address] [place] [address] Care Team Providers Care Funeral Workers Name Role Phone Unavailable Primary Care Provider Unavailabl e Encounter Details Date Type Department Care Team (Latest Contact Info) Description 06/02/2001 9:29 EDT - 06/02/2001 11:59 EDT Hospital Encounter [address] [address] [address] Cristina, YARIT[address] [place] [address] Discharge Disposition: Auto Discharge Social History Tobacco [...]
--- OUTSIDE RECORDS SUMMARY | 2024-06-26 11:19 | XMS_ITS | Encounter Summary ---
Author Organization [facility] Address [address] [place] [address] Care Team Providers Care Race Starter Name Role Phone Dimas Lau MD Primary Care Provider [phone] Encounter Details Date Type Department Care Team (Late st Contact Info) Description 06/25/2021 Lab Requisition [facility] Pathology & Laboratory Medicine - [address] [address] Outr Resulting Lab, Provider Social History Tobacco [...] Priority Date/Time Associated Diagnosis Comments ZZCOVID-19 TEST [facility] PCR Today 06/25/2021 10:50 EST COVID-19 TESTING Routine 06/25/2021 10:5 0 EST documented in this encounter Results * COVID-19 TEST [facility] PCR (06/25/2021 10:50 EST) Swab 06/25/2021 10:5 0 EST 06/25/2021 22:26 EST us Provider Outr Resulting Lab MICROBIOLOGY - GENER AL ORDERABLES Final Result [facility] [address] [place] [address] * COVID-19 TESTING (06/25/2021 10:50 EST) COVID-19 rt-PCR Result Negative Negative 06/26/2021 11:40 EST [facility] Comment: This test has not [...] history, and epidemiological information. Performed on the [facility] Fusion instrument Performing Lab [place] [facility] Lab 06/26/2021 11:40 EST [facility] Swab 06/25/2021 10:5 0 EST 06/25/2021 22:26 EST us Provider Outr Resulting Lab MICROBIOLOGY - GENER AL ORDERABLES Final Result [facility] [address] [place] [address] documented in this encounter Visit Diagnoses Not on filedocumented in this encounter Care Teams Race Starter Relationship Specialty Start Date End Date Dimas Lau MD [address] [place], [place] [id number] PCP - General 06/18/15 documented as of this encounter
--- OUTSIDE RECORDS SUMMARY | 2024-06-26 11:19 | XMS_ITS | Encounter Summary ---
[place] [address] Care Team Providers Care Food Supervisor Name Role Phone Dimas Lau MD Primary Care Provider Encounter Details Date Type Department Care Team (Late st Contact Info) Description 11/28/2012 12:22 PM [place] [address] Tigist Mac MD [facility] [address] [place] [address] [address] [place] [address] Anesthesia Record Procedure Summary Procedure Name Responsible [...] meningiomas presents for MR Brain to R/O DIRECTOR COUNCIL ON AGING shunt malfunction. Recurrent UTI, finished antibiotic course [...] mL/hr documented in this encounter Care Teams Food Supervisor Relationship Specialty Start Date End Date Dimas Lau MD [address] [place] [address] PCP - General 06/30/10 documented as of this encounter
--- OUTSIDE RECORDS SUMMARY | 2024-06-26 11:19 | XMS_ITS | Encounter Summary ---
[place] [address] Care Team Providers Care Brim Cutter Name Role Phone Dimas Lau MD Primary Care Provider [phone] Encounter Details Date Type Department Care Team (Late st Contact Info) Description 12/25/2010 9:20 AM EDT - 12/25/2010 11:59 PM EDT Hospital [place] [address] Social History Tobacco Use Types Packs/Day Years [...] Shukla RN - 12/22/2010 10:21 AM EDT [facility] NURSING DATABASE Name: YURIY ALCANTAR Date of : 1965 Address: [address] [place] [address] (home) Referring Provider: Dimas Lau Reason for Visit: MRI with IV sedation Allergies Allergen Reactions ??? Carbamazepine CIS - diarrhea ??? Sulfa (Sulfonamide Antibiotics) CIS - Nausea/Vomiting ??? 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
--- OUTSIDE RECORDS SUMMARY | 2024-06-26 11:19 | XMS_ITS | Encounter Summary ---
Author Organization [facility] Address [address] [place] [address] Care Team Providers Care Exceptional Children Teacher Name Role Phone Unavailable Primary Care Provider Unavailabl e Encounter Details Date Type Department Care Team (Late st Contact Info) Description 06/07/2006 Results Only [facility] - Maple conversion [address] [place] [address] Boyd Márquez, DO [address] [place] [address] Social History Tobacco Use Types [...] ? YURIY ALCANTAR ? Accession #: ? [id number] ? : ? 1965 (Age: 40) ??M [...] Alcantar and bx transverse colon is a soliamn-pink 0.5 x 0.2 x 0.2 cm soft [...] specimen is entirely submitted as (F). ??(Sher Haile/[facility] End of Report SULEMA GONZÁLES 06/07/2006 06/08/2006 10: 26 EST us Boyd Márquez DO PATHOLOGY ORDERABLES Fi nal Result SULEMA GONZÁLES [address] [place] [address] documented in this encounter Visit Diagnoses Not on filedocumented in this encounter
--- OUTSIDE RECORDS SUMMARY | 2024-06-26 11:19 | XMS_ITS | Encounter Summary ---
Author Organization [facility] Address [facility] [place] [address] Care Team Providers Care Switchboard Operator Helper Name Role Phone Dimas Lau MD Primary Care Provider Encounter Details Date Type Department Care Team (Late st Contact Info) Description 02/25/2014 2:14 PM EDT - 02/25/2014 6:15 PM EDT Hospital Encounter [place] [address] RESOURCE, ANESTHESIA-NICHOL Boyd Marlow MD [facility] [place] [address] Discharge Disposition: Home Social History Tobacco Use [...] and interpretation reviewed by the attending Dimas Lua MD [facility] MRI ORDERABLES documented in this [...] Aleman) documented in this encounter Care Teams Switchboard Operator Helper Relationship Specialty Start Date End Date Dimas Lau MD [address] [place] [address] PCP - General 06/30/10 documented as of this encounter
--- OUTSIDE RECORDS SUMMARY | 2024-06-26 11:19 | XMS_ITS | Encounter Summary ---
[place] [address] Care Team Providers Care Binder Fixer Name Role Phone Dimas Lau MD Primary Care Provider [phone] Encounter Details Date Type Department Care Team (Late st Contact Info) Description 02/25/2014 3:30 PM EDT - 02/25/2014 4:30 [place] [address] RESOURCE, ANESTHESIA-NICHOL None MRI WITH ANESTHESIA (WRVU [...] Aleman) documented in this encounter Care Teams Binder Fixer Relationship Specialty Start Date End Date Dimas Lau MD [address] [place] [address] PCP - General 06/30/10 documented as of this encounter
--- OUTSIDE RECORDS SUMMARY | 2024-06-26 11:19 | XMS_ITS | Clinical Summary ---
Author Organization [facility] Address [address] [place] [address] Care Team Providers Care Auditor Appraiser Name Role Phone Dimas Lau MD Primary Care Provider [phone] Social History Tobacco Use Types Packs/Day Years [...] - 19+ 3-dose series) 10/24 COVID-19 Vaccine ( season) 2024 Care Teams Auditor Appraiser Relationship Specialty Start Date End Date Dimas Lau MD [address] [place] [address] PCP - General 06/18/15
--- OUTSIDE RECORDS SUMMARY | 2024-06-26 11:19 | XMS_ITS | Encounter Summary ---
[place] [address] Care Team Providers Care Moveman Name Role Phone Dimas Lau MD Primary Care Provider [phone] Encounter Details Date Type Department Care Team (Latest Contact Info) Description 11/28/2012 10:31 AM EDT - 11/28/2012 3:20 PM EDT Hospital Encounter [place] [phone] RESOURCE, ANESTHESIA-Tigist Chong MD [facility] [place] [address] Discharge Disposition: Home Social History Tobacco Use [...] 11/28/2012 5:42 PM EDTAssociated Order(s): SCAN DOC: FRONT END SOFTWARE DEVELOPER documented in this encounter Miscellaneous Notes * Miscellaneous - Provider, Scanning - 11/28/2012 6:06 PM EDT * Miscellaneous - Provider, Scanning - 11/28/2012 11:06 AM EDT documented in this encounter Plan of Treatment Not on file documented as of this encounter Procedures Procedure Name Priority Date/Time Associated Diagnosis Comments MRI WITH ANESTHESIA (WRVU *) 11/28/2012 8:05 PM EDT Neurofibromatosis w/mengioma; ? gm/svp global publisher business shunt malformation FRONT END SOFTWARE DEVELOPER SCAN 11/28/2012 5:42 PM EDT documented in this encounter Results * SCAN DOC: FRONT END SOFTWARE DEVELOPER (11/28/2012 5:42 PM EDT) Anatomical Region Laterality [...] CRNA) documented in this encounter Care Teams Moveman Relationship Specialty Start Date End Date Dimas Lau MD [address] [place] [address] PCP - General 06/30/10 documented as of this encounter
--- OUTSIDE RECORDS SUMMARY | 2024-06-26 11:19 | XMS_ITS | Encounter Summary ---
[place] [address] Care Team Providers Care Public Works Laborer Name Role Phone Dimas Lau MD Primary Care Provider Encounter Details Date Type Department Care Team (Late st Contact Info) Description 06/27/2013 [place] [phone] Lorrie Hansen MD [facility] [place] [address] Social History Tobacco Use Types Packs/Day Years Used Date Smoking Tobacco: Never Assessed Sex and Gender Information Value Date Recorded Sex Assigned at Not on file Gender Identity Not on file Sexual Orientation Not on file documented as of this encounter Plan of Treatment Not on file documented as of this encounter Visit Diagnoses Not on filedocumented in this encounter Care Teams Public Works Laborer Relationship Specialty Start Date End Date Dimas Lau MD [address] [place] [address] PCP - General 06/30/10 documented as of this encounter
--- OUTSIDE RECORDS SUMMARY | 2024-06-26 11:19 | XMS_ITS | Encounter Summary ---
[place] [address] Care Team Providers Care Waist Pleater Name Role Phone Dimas Lau MD Primary Care Provider Encounter Details Date Type Department Care Team (Late st Contact Info) Description 11/28/2012 12:05 PM EDT - 11/28/2012 1:18 [place] [phone] RESOURCE, ANESTHESIA-NICHOL None MRI WITH ANESTHESIA (WRVU [...] 11/28/2012 5:42 PM EDTAssociated Order(s): SCAN DOC: RIVET TOSSER documented in this encounter Miscellaneous Notes * Miscellaneous - Provider, Scanning - 11/28/2012 6:06 PM EDT * Miscellaneous - Provider, Scanning - 11/28/2012 11:06 AM EDT documented in this encounter Plan of Treatment Not on file documented as of this encounter Procedures Procedure Name Priority Date/Time Associated Diagnosis Comments MRI WITH ANESTHESIA (WRVU *) 11/28/2012 8:05 PM EDT Neurofibromatosis w/mengioma; ? vp packaging shunt malformation RIVET TOSSER SCAN 11/28/2012 5:42 PM EDT documented in this encounter Results * SCAN DOC: RIVET TOSSER (11/28/2012 5:42 PM EDT) Anatomical Region Laterality [...] CRNA) documented in this encounter Care Teams Waist Pleater Relationship Specialty Start Date End Date Dimas Lau MD [address] [place] [address] PCP - General 06/30/10 documented as of this encounter
--- OUTSIDE RECORDS SUMMARY | 2024-06-26 11:19 | XMS_ITS | Encounter Summary ---
Author Organization [facility] [place] [address] Care Team Providers Care Ball Maker Name Role Phone Dimas Lau MD Primary Care Provider Encounter Details Date Type Department Care Team (Latest Contact Info) Description 12/25/2010 9:19 AM EDT - 12/25/2010 11:59 PM EDT Hospital [place] [address] CLINIC, Dimas Vance MD [address] [place] [address] Discharge Disposition: Home Social History [...] mLs documented in this encounter Care Teams Ball Maker Relationship Specialty Start Date End Date Dimas Lau MD [address] [place] [address] PCP - General 06/30/10 documented as of this encounter
--- OUTSIDE RECORDS SUMMARY | 2024-06-26 11:19 | XMS_ITS | Encounter Summary ---
[place] [address] Care Team Providers Care Cotton Farmer Name Role Phone Dimas Lau MD Primary Care Provider Encounter Details Date Type Department Care Team (Late st Contact Info) Description 02/25/2014 3:38 [place] [phone] Boyd Joaquin MD [facility] [place] [address] Flora Conroy Anesthesia Record Procedure Summary Procedure [...] 1453; metacarpal vein right (top of hand); [id number] catheter system; 20 gauge, 1 in length; [...] WITH ANESTHESIA performed by Christine Morales-Guillermina at [facility] History Substance Use Topics ??? 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 No significant history otherwise. Plan MAC w/ propofol gtt. Region - Other Informed Consent: Anesthetic plan and risks discussed with patient and mother. Use of blood products discussed with patient and mother whom consented to blood products. Plan discussed with attending. [facility]. Assessment: documented in this encounter Plan of [...] r documented in this encounter Care Teams Cotton Farmer Relationship Specialty Start Date End Date Dimas Lau MD [address] [place] [address] PCP - General 06/30/10 documented as of this encounter
--- OUTSIDE RECORDS SUMMARY | 2024-06-26 11:19 | XMS_ITS | Encounter Summary ---
Author Organization [facility] [place] [address] Care Team Providers Care Manager Of Transportation Name Role Phone Dimas Lau MD Primary Care Provider Reason for Visit * Reason Onset Date Comments Medical Care Coordination 06/29/2013 Pt laura y called to speak with Claudette to [facility] Encounter Details Date Type Department Care Team (Late st Contact Info) Description 06/29/2013 [place] [phone] Lorrie Hansen MD [facility] [place] [address] Medical Care Coordination (Pt very called to speak with Claudette to [facility]) Social History Tobacco Use Types Packs/Day Years Used Date Smoking Tobacco: Never Assessed Sex and Gender Information Value Date Recorded Sex Assigned at Not on file Gender Identity Not on file Sexual Orientation Not on file documented as of this encounter Plan of Treatment Not on file documented as of this encounter Visit Diagnoses Not on filedocumented in this encounter Care Teams Manager Of Transportation Relationship Specialty Start Date End Date Dimas Lau MD [address] [place] [address] PCP - General 06/30/10 documented as of this encounter
--- NOTE | 2024-06-26 12:12 | ED.GENADUL_ITS ---
Discharge Plan Disposition Patient Disposition: Home Discharge Details Clinical Impression: Fracture of medial malleolus, right, closed Primary Care Provider: Freida Starks ED Provider: Kishor Delcid Home Meds and New Rx's Prescriptions: Continued multivitamin Tablet 1 tab PO DAILY loratadine 10 mg tablet 10 mg PO DAILY clotrimazole 1 % cream 1 applic topical TID PRN PRN (Reason: rash) Qty: 60 0RF potassium citrate 10 mEq (1,080 mg) tablet extended release 10 meq PO BID Qty: 180 3RF sertraline 25 mg tablet 25 mg PO DAILY ketoconazole 2 % cream 1 applic topical DAILY Qty: 120 6RF Rx Instructions: Apply to toenails once daily polyethylene glycol 3350 [GlycoLax] 527 GM powder 17 g PO DAILY sertraline 50 mg tablet 50 mg PO DAILY Patient Comments: TAKE ONE TABLET BY MOUTH EVERY DAY azithromycin 250 mg tablet See Rx Instructions .ROUTE .COMPLEX Qty: 6 0RF Rx Instructions: For 250 mg dose pack: take 500 mg today (day 1), then 250 mg for 4 days (days 2-5) bisacodyl [Dulcolax (bisacodyl)] 10 mg Suppository 10 mg NC DAILY lorazepam 1 mg Tablet 1 mg PO TID PRN cholecalciferol (vitamin D3) [Vitamin D3] 1,000 unit Capsule 1 unit PO DAILY Discharge Instructions Instructions: [facility] Additional Instructions: You are seen in the emergency department for your ankle pain. You are found to have an ankle fracture. This has been placed in a cast. Please follow-up with the podiatry team in the next week. Please return to the emergency department if you develop swelling in your right foot. For your pain please take medications as follows: 1. Take acetaminophen (Tylenol), 1,000 mg (two 500 mg tabs) every 6 hours [2. Take ibuprofen (Advil), 400 mg every 6 hours.] Referrals: [facility] [Provider Group] Vane Lehman DPM [[facility] STAFF PHYSICIAN] - Discharge Data Discharge Date/Time-TO BE ENTERED AT DEPARTURE: 06/26/24 17:32 HPI <Kishor Delcid MD - Last Filed: 06/27/24 10:48> General Date/Time Provider Initiated Documentation: 06/26/24 12:12 . HPI Narrative: MDM This is a nonverbal afebrile and nontachycardic 58-year-old male with right ankle swelling minor ecchymosis concerning for the possibility of fracture with an abnormal x-ray for which patient will undergo CT scan. Left foot warm and well-perfused so I am not concerned for critical limb ischemia so I do not feel that the patient requires a CT angiogram with runoffs. No pain out of proportion to suggest necrotizing soft tissue infection. No midfoot instability to suggest Lisfranc fracture. No right lateral foot tenderness to suggest Banuelos fracture. No erythema to suggest cellulitis. No fluctuance to suggest abscess. No significant ankle effusion nor erythema nor fevers to suggest septic joint. No head strike to suggest increased risk for intracranial hemorrhage I did not feel that the patient required CT head. I spoke to the patient's sister and guardian Tarah Clark. She reported that the visiting nurses had had concerns about the ankle yesterday. Patient was coming to a urology appointment today and that is why he was brought to the emergency department today. No calf tenderness to suggest DVT. Patient's sister works in urology with the patient is due to have his catheter changed later today. He will follow-up with his rick e management team. Patient is in no acute distress and has no other signs of trauma no tenderness so I am not concerned for abuse. Furthermore patient's home care provider is very appropriate in the emergency department. I considered UTI however the patient heart normal reassuring vital signs so I did not obtain lactic acid blood cultures nor IV antibiotics. Will reassess following CT scan. His delay presentation likely resulted from his neuropathy and his lack of reported pain. 2:12 PM Patient had a medial malleolar fracture on CT scan and a plafond fracture for which I spoke with Dr. Santana from podiatry. 4:07 PM Patient's right lower extremity fracture with cast by Dr. Santana from podiatry. She will follow-up with him in 1 week. Will make him nonweightbearing. He is not in significant pain so we will defer opiates and by acetaminophen ibuprofen. Will change his catheter to the emergency department per request of his guardian Tarah as he was to be seen today in urology clinic. Fortunately urology providers are not available and there is limited availability during the remainder of the week. Will not send urinalysis given my low suspicion for UTI and my high suspicion for contamination. 4:56 PM Patient had his Li catheter changed in the ED. I signed transfer paperwork to the patient transferred to home via EMS as there were several stairs leading up to the house. He has a wheelchair inside the house and can use this to get in. I advised outpatient podiatry follow-up in 1 week. Chronic conditions affecting the care of the patient: Neurogenic bladder with chronic indwelling Li History obtained from an outside historian: Patient's care provider External record review: N/A Medications: Acetaminophen ibuprofen Social determinants of health affecting disposition: Home care Management discussed with: Podiatry urology Treatment/interventions considered: N/A Response to therapies provided: Improved symptoms in the ED HPI This is a 58-year-old nonverbal male with history of multiple sclerosis indwelling catheter right emergency department via private vehicle following a fall. 4 days ago patient reportedly rolled his right ankle. He ambulates with assistance at baseline in the setting of this multiple sclerosis. He has had no fevers nor chills. He is care provider Albaro provides history. His injury occurred while walking down some stairs. He did not strike his head. He can walk with assistance. He is having right ankle pain and swelling which they noticed today. No behavioral changes. No loss of consciousness nor head strike. No nausea nor vomiting. Exam General: Well-appearing in no acute distress Head: Normocephalic, atraumatic. Eye: Extraocular eye movements intact. No conjunctival injection. No scleral icterus. Ear, nose, mouth, throat: Grossly normal inspection. . Neck: Trachea midline. Cardiovascular: Well-perfused distal extremities. Respiratory: Nonlabored respiration. Gastrointestinal: Nondistended abdomen. Musculoskeletal: Markedly swollen right ankle with mild medial malleoli or tenderness. No proximal tibial tenderness. Right foot warm well-perfused. Pulses obtained via ultrasound. No midfoot instability. Skin: Normal for age and race, grossly normal temperature and turgor. No acute rash. Neurologic: Alert and tracking with eyes. Nonverbal. Follows commands. Psychiatric: Mood and manner are appropriate. Grooming and personal hygiene are appropriate. Related Data Home Medications ?Medication ?Instructions ?Recorded ?Confirmed polyethylene glycol 3350 17 17 g PO DAILY 08/25/15 06/26/24 gram/dose oral powder (GlycoLax) bisacodyl 10 mg rectal suppository 10 mg NC DAILY 04/26/19 06/26/24 (Dulcolax (bisacodyl)) cholecalciferol (vitamin D3) 25 1 unit PO DAILY 04/26/19 06/26/24 mcg (1,000 unit) capsule (Vitamin D3) lorazepam 1 mg tablet 1 mg PO TID PRN 04/26/19 06/26/24 clotrimazole 1 % topical cream 1 applic topical TID PRN PRN rash 04/27/21 06/26/24 #60 grams multivitamin 1 tab PO DAILY 04/06/22 06/26/24 sertraline 25 mg tablet 25 mg PO DAILY 12/30/23 06/26/24 ketoconazole 2 % topical cream 1 applic topical DAILY #120 grams 02/22/24 06/26/24 potassium citrate 10 mEq (1,080 10 meq PO BID #180 tabs 03/20/24 06/26/24 mg) tablet,extended release azithromycin 250 mg tablet See Rx Instructions PO .COMPLEX #6 05/21/24 06/26/24 tabs sertraline 50 mg tablet 50 mg PO DAILY 05/21/24 06/26/24 loratadine 10 mg tablet 10 mg PO DAILY 06/01/24 06/26/24 Previous Rx's ?Medication ?Instructions ?Recorded clotrimazole 1 % topical cream 1 applic topical TID PRN PRN rash 04/27/21 #60 grams ketoconazole 2 % topical cream 1 applic topical DAILY #120 grams 02/22/24 potassium citrate 10 mEq (1,080 10 meq PO BID #180 tabs 03/20/24 mg) tablet,extended release azithromycin 250 mg tablet See Rx Instructions PO .COMPLEX #6 05/21/24 tabs Allergies Allergy/AdvReac Type Severity Reaction Status Date / Time carbamazepine (From Tegretol) Allergy Unknown Unknown Verified 06/26/24 11:17 gabapentin (From Neurontin) Allergy Unknown Unknown Verified 06/26/24 11:17 risperidone (From Risperdal) Allergy Unknown Unknown Verified 06/26/24 11:17 Sulfa (Sulfonamide AdvReac Mild Per pt. Verified 06/26/24 11:17 Antibiotics) mother causes stomach ache haldol AdvReac Unknown Other (See Uncoded 06/26/24 11:17 Comment) General Stated Complaint: Orthopedic SCHUYLER: 4 Course <Kishor Delcid MD - Last Filed: 06/27/24 10:48> Vital Signs Vital signs: Vital Signs Temperature 36.8 C 06/26/24 11:15 Pulse 90 06/26/24 11:15 Respiratory Rate 18 06/26/24 11:15 Blood Pressure 152/80 H 06/26/24 11:15 Pulse Oximetry 98 06/26/24 11:15 Temperature 36.8 C 06/26/24 11:15 Temperature Source Temporal Artery Scan 06/26/24 11:15 Pulse 90 06/26/24 11:15 Respiratory Rate 18 06/26/24 11:15 Respiratory Effort Normal, Non-Labored 06/26/24 11:41 Blood Pressure 152/80 H 06/26/24 11:15 Blood Pressure Position Sitting 06/26/24 11:15 Pulse Oximetry 98 06/26/24 11:15 Oxygen Delivery Method Room Air 06/26/24 11:15 Oxygen Flow Rate 0 06/26/24 11:15 Medical Decision Making <Kishor Delcid MD - Last Filed: 06/27/24 10:48> Quality:SDOH Health Related Social Needs: Health related social needs details Has two private ca regivers with him <EWA Holman - Last Filed: 06/26/24 17:21> My name was entered in error, I did not see this patient. PFSH <Kishor Delcid MD - Last Filed: 06/27/24 10:48> All Active Problems (Updated 06/26/24 @ 16:17 by Vane Lehman DPM) Closed nondisplaced bimalleolar fracture of right ankle (Acute) Closed pilon fracture of right tibia (Acute) Fracture of medial malleolus, right, closed (Acute) Edema (Acute) Atherosclerosis of artery of both lower extremities (Acute) Onychogryphosis (Acute) Nail dystrophy (Acute) Onychomycosis (Acute) Neurogenic bladder (Acute) Sepsis (Acute) Complicated UTI (urinary tract infection) (Acute) Community acquired pneumonia (Acute) DVT prophylaxis (Acute) Urinary catheter insertion/adjustment/removal (Acute) Diarrhea (Acute) Neurogenic bladder (Acute) Discharge planning issues (Acute) Bacteremia (Acute) Medical History Acute UTI Urethral stricture Wheelchair dependent 2 assist Developmental non-verbal disorder Urinary retention Meningioma Neurofibromatosis 2 Surgical History S/P craniotomy S/P RECREATION THERAPY DIRECTOR shunt Social History Smoking/Tobacco Use Status: Never Smoking risk assessment performed?: Yes Alcohol Intake: never Drug use: Never Substance use type: does not use Caregiver/Support person: Yes (parents are primary caretakers) Household members: family Housing: house Do you feel safe at home: Yes Do you feel safe in your relationship?: Yes Additional Social history: not able to assess privately POCUS Exam (ED) <Kishor Delcid MD - Last Filed: 06/27/24 10:48> Limited Vascular Exam DATE OF EXAM: 06/26/24 TIME OF EXAM: 14:11 PROVIDER THAT PERFORMED THE STUDY: Kishor Declid IS THIS A REPEAT EXAM DURING THIS ENCOUNTER: No Vascular Exam: Right lower extremity INCIDENTAL FINDINGS: Bedside ultrasound with monophasic DP pulse multiphasic PT pulse. <EWA Holman - Last Filed: 06/26/24 17:21> Limited Vascular Exam Vascular Exam: Right lower extremity REASON FOR EXAM: Other indication: My name was entered in error, patient seen by Dr. Delcid Exam Complete (please see note from Dr. Delcid)
--- NOTE | 2024-06-26 12:19 | DI.RAD_ITS ---
Exam(s) XR ANKLE RT COMPLETE EXAM: XR ANKLE RT COMPLETE CLINICAL HISTORY: ankle injury. TECHNIQUE: 2D digital imaging was performed. COMPARISON: No exams were available for comparison FINDINGS: 3 views There is soft tissue swelling over both sides of the ankle. Subtle suggestion a possible fracture of the anterior tibial plafond, seen on the lateral view. Campbell ncy in the medial malleolus is probably developmental. Lateral malleolus is intact. There is no wid ening the ankle mortise. Talar dome unremarkable. Incidentally noted on the lateral view is a benig n-appearing eccentric sclerotic non expansile bone lesion in the distal fibula which is probably a fi brous cortical defect-nonossifying fibroma. IMPRESSION: Subtle findings as above. Recommend CT scan of the ankle. DATA REPOSITORY: RADIATION DOSE DELIVERED:
[2024-06-26] MEDS: Ibuprofen 600 MG TAB PO (12:58)
[2024-06-26] MEDS: Acetaminophen 500 MG TAB 1000 MG PO (12:58)
--- NOTE | 2024-06-26 13:15 | DI.CT_ITS ---
Exam(s) CT LOWER EXTREMITY RT WO EXAM: CT LOWER EXTREMITY RT WO CLINICAL HISTORY: Right ankle pain abnormal XR. TECHNIQUE: Imaging Protocol: Axial computed tomography images with coronal and sagittal reformatted images were created and reviewed. CONTRAST MATERIAL: Intravenous: None COMPARISON: CR XR ANKLE RT COMPLETE from 06/26/2024 FINDINGS: OSSEOUS: There is a transverse fracture through the medial malleolus.. There is also fracture of the anterior lateral aspect of the distal tibia-tibial plafond is a consistent with what is seen on plain films. T here is no fracture of the lateral malleolus nor of the talar dome nor other focal findings in the ta lar dome. Benign-appearing lung truly orientated sclerotic eccentric lesion in the distal 3rd of the fibula not ed which is probably a fibrous cortical defect. No evidence of osseous tarsal coalition. The base of the 5th metatarsal is intact. No other fractures evident. SOFT TISSUES: Moderate subcutaneous edema evident. IMPRESSION: Fractures of the medial malleolus and anterior lateral aspect of the tibial plafond. Posterior malleo lonnie is intact. Lateral malleolus is intact. Discussed by phone with ER physician RADIATION DOSE DELIVERED: 125.7mGy.cm Total DLP DATA REPOSITORY: All CT scans at this facility are submitted to the National Radiology Data Registry (NRDR) Dose Index Registry (DIR) with the [employer] (ACR). RADIATION OPTIMIZATION: All CT scans at this facility use at least one of these dose optimization te chniques: automated exposure control; mA and/or kV adjustment per patient size (includes targeted exa ms where dose is matched to clinical indication); or iterative reconstruction.
--- NOTE | 2024-06-26 16:09 | W.PODCONSULT ---
Date of service: 06/26/24 Time of Service: 16:09 Assessment and Plan Assessment and plan (1) Closed pilon fracture of right tibia: Status: Acute Assessment and plan: Patient was seen in the ED. Chart was reviewed. X-ray images were reviewed revealing a fracture of the medial malleolus of the right ankle without significant displacement or gapping. CT scan was reviewed revealing a transverse fracture to the medial malleolus. There is also fracture to the anterior lateral aspect of the distal tibial plafond. No evidence for fracture to the lateral malleolus or talar dome. Patient is wheelchair-bound however does transfer. Patient has MS and neuropathy. At this time, since the fractures are nondisplaced, patient is minimally ambulatory I recommend conservative care. Although surgical intervention can be considered this will come with high risk since there is significant edema to the right lower extremity. This will be of minimal benefit since the patient is not ambulatory. I recommended and applied a short leg cast which was bivalved to allow for edema. I recommend strict nonweightbearing to the right lower extremity. He is advised to rest, ice and elevate. I recommend follow-up in office in 2 weeks with repeat x-rays. (2) Fracture of medial malleolus, right, closed: Status: Acute (3) Closed nondisplaced bimalleolar fracture of right ankle: Status: Acute (4) Atherosclerosis of artery of both lower extremities: Status: Acute (5) Edema: Status: Acute (6) Wheelchair dependent: (7) Developmental non-verbal disorder: History of Present Illness Narrative: This is a nonverbal afebrile and nontachycardic 58-year-old male with right ankle swelling minor ecchymosis seen in the ED. As per the patient's sister and guardian Tarah Clark, the visiting nurses had had concerns about the ankle yesterday. Patient was coming to a urology appointment today and that is why he was brought to the emergency department today. His brother is a primary historian. He states that patient took a misstep which resulted in the injury. Patient has not communicated pain at this time. Review of Systems Constitutional Constitutional: Denies body ache(s), Denies chills, Denies difficulty sleeping, Denies fever(s) and Denies night sweats Cardiovascular Cardiovascular: Denies diaphoresis, Denies syncope, Denies rapid heart rate and Reports pedal edema Respiratory Respiratory: Denies cough Musculoskeletal Comments: Right lower extremity injury Integumentary/Breasts Comments: No fracture blisters or ulcers. Neurologic Neurologic: Denies syncope PFSH All Active Problems (Updated 06/26/24 @ 16:17 by Vane Lehman DPM) Closed nondisplaced bimalleolar fracture of right ankle (Acute) Closed pilon fracture of right tibia (Acute) Fracture of medial malleolus, right, closed (Acute) Edema (Acute) Atherosclerosis of artery of both lower extremities (Acute) Onychogryphosis (Acute) Nail dystrophy (Acute) Onychomycosis (Acute) Neurogenic bladder (Acute) Bacteremia (Acute) Discharge planning issues (Acute) Neurogenic bladder (Acute) Diarrhea (Acute) Urinary catheter insertion/adjustment/removal (Acute) DVT prophylaxis (Acute) Community acquired pneumonia (Acute) Complicated UTI (urinary tract infection) (Acute) Sepsis (Acute) Medical History Acute UTI Urethral stricture Wheelchair dependent 2 assist 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 No fracture blisters noted. Skin is warm to touch. Vascular: Pulses are nonpalpable secondary to edema however, skin is warm to touch. Skin is shiny. Musculoskeletal: Edema noted to the right ankle. No pain reported by the patient however patient is nonverbal. neuro: Light touch sensation is absent Results Last Vital Signs Temp 98.2 F 06/26/24 11:15 Pulse 90 06/26/24 11:15 Resp 18 06/26/24 11:15 BP 152/80 H 06/26/24 11:15 Pulse Ox 98 06/26/24 11:15 Imaging Imaging Studies: Exam(s) XR ANKLE RT COMPLETE EXAM: XR ANKLE RT COMPLETE CLINICAL HISTORY: ankle injury. TECHNIQUE: 2D digital imaging was performed. COMPARISON: No exams were available for comparison FINDINGS: 3 views There is soft tissue swelling over both sides of the ankle. Subtle suggestion a possible fracture of the anterior tibial plafond, seen on the lateral view. Lucency in the medial malleolus is probably developmental. Lateral malleolus is intact. There is no widening the ankle mortise. Talar dome unremarkable. Incidentally noted on the lateral view is a benign-appearing eccentric sclerotic non expansile bone lesion in the distal fibula which is probably a fibrous cortical defect-nonossifying fibroma. IMPRESSION: Subtle findings as above. Recommend CT scan of the ankle. a CT:CT lower extremity RT wo Exam(s) CT LOWER EXTREMITY RT WO EXAM: CT LOWER EXTREMITY RT WO CLINICAL HISTORY: Right ankle pain abnormal XR. TECHNIQUE: Imaging Protocol: Axial computed tomography images with coronal and sagittal reformatted images were created and reviewed. CONTRAST MATERIAL: Intravenous: None COMPARISON: CR XR ANKLE RT COMPLETE from 06/26/2024 FINDINGS: OSSEOUS: There is a transverse fracture through the medial malleolus.. There is also fracture of the anterior lateral aspect of the distal tibia-tibial plafond is a consistent with what is seen on plain films. There is no fracture of the lateral malleolus nor of the talar dome nor other focal findings in the talar dome. Benign-appearing lung truly orientated sclerotic eccentric lesion in the distal 3rd of the fibula noted which is probably a fibrous cortical defect. No evidence of osseous tarsal coalition. The base of the 5th metatarsal is intact. No other fractures evident. SOFT TISSUES: Moderate subcutaneous edema evident. IMPRESSION: Fractures of the medial malleolus and anterior lateral aspect of the tibial plafond. Posterior malleolus is intact. Lateral malleolus is intact.
== END 2024-06-26 17:32 | disposition home or self-care (01) ==
PROVIDERS: Emergency Provider Emergency Medicine; PCP Family Medicine
DX: S82.54XA Nondisplaced fracture of medial malleolus of right tibia, initial encounter for closed fracture; G35 Multiple sclerosis; N31.9 Neuromuscular dysfunction of bladder, unspecified; Z96.0 Presence of urogenital implants; Z99.3 Dependence on wheelchair; X50.1XXA Overexertion from prolonged static or awkward postures, initial encounter; Y93.01 Activity, walking, marching and hiking
CPT/HCPCS: 00123; 93971; 99213; 99284; 73610; 73700

== ENCOUNTER 2024-08-10 15:59 | Inpatient (IN) | payer MEDICARE, MEDICAID, SELFPAY ==
[2024-08-10] VITALS (72 sets, daily range): BP systolic 75–120; BP diastolic 33–65; PULSE 61–96; RESP 12–28; TEMP 36.7–39.3; O2SAT 91–100
[2024-08-10] MEDS: Normal Saline 1,000 ML 1000 ML IV (16:00)
--- NOTE | 2024-08-10 16:15 | RT.EKG_ITS ---
APPROVED REPORT Exam: Resting ECG Reason for Exam: weakness Patient Location: E HR:80 bpm ECG Measurements Heart Rate 80 AXIS ID 146 P 17 QRSd 94 QRS -41 QT 413 T 31 QTc 478 Conclusion Sinus rhythm...normal P axis, V-rate 60- 99 Left anterior fascicular block...axis(240,-40), init forces inf Narrow complex normal sinus rhythm at a rate of 80 left anterior fascicular block. Left axis deviati on. No ST segment abnormalities nor T wave versions. Appears similar to prior dated last year.
--- OUTSIDE RECORDS SUMMARY | 2024-08-10 16:19 | XMS_ITS | Encounter Summary ---
[place] [address] Care Team Providers Care Fur Finisher Name Role Phone Dimas Lau MD Primary Care Provider Encounter Details Date Type Department Care Team (Late st Contact Info) Description 03/17/2018 Telephone [place] [phone] Catrina Lopez Social History Tobacco Use Types [...] on filedocumented in this encounter Care Teams Fur Finisher Relationship Specialty Start Date End Date Dimas Lau MD [address] [place] [address] PCP - General 06/30/10 documented as of this encounter
--- OUTSIDE RECORDS SUMMARY | 2024-08-10 16:19 | XMS_ITS | Encounter Summary ---
[place] [address] Care Team Providers Care Cigar Bander Hand Name Role Phone Dimas Lau MD Primary Care Provider Encounter Details Date Type Department Care Team (Late st Contact Info) Description 11/28/2012 12:22 [place] [phone] Tigist Mac MD McGrath[facility] [place] [address] Anesthesia Record Procedure Summary Procedure Name Responsible [...] meningiomas presents for MR Brain to R/O SHIFT SUPERVISOR MELTING shunt malfunction. Recurrent UTI, finished antibiotic course started 11/09/2012. Neurogenic bladder with need for daily straight caths. Region - Other Informed Consent: Anesthetic plan and risks discussed with mother and patient. Plan discussed with [CATERING ADMINISTRATIVE ASSISTANT Misc. Assessment: 2008 GETA Mac 3, Gr [...] mL/hr documented in this encounter Care Teams Cigar Bander Hand Relationship Specialty Start Date End Date Dimas Lau MD [address] [place] [address] PCP - General 06/30/10 documented as of this encounter
--- OUTSIDE RECORDS SUMMARY | 2024-08-10 16:19 | XMS_ITS | Encounter Summary ---
[place] [address] Care Team Providers Care Assembly Press Operator Name Role Phone Dimas Lau MD Primary Care Provider Encounter Details Date Type Department Care Team (Late st Contact Info) Description 01/06/2015 2:50 PM EDT - 01/06/2015 4:50 [place] [phone] RESOURCE, ANESTHESIA-NICHOL None MRI WITH ANESTHESIA (WRVU [...] Active and Recently Administered Medications Care Teams Assembly Press Operator Relationship Specialty Start Date End Date Dimas Lau MD [address] [place] [address] PCP - General 06/30/10 documented as of this encounter
--- OUTSIDE RECORDS SUMMARY | 2024-08-10 16:19 | XMS_ITS | Encounter Summary ---
Author Organization [facility] [place] [address] Care Team Providers Care Assistant Broker Name Role Phone Dimas Lau MD Primary Care Provider Encounter Details Date Type Department Care Team (Late st Contact Info) Description 01/06/2015 3:05 PM EDT [place] [phone] Kishor Gillette MD [facility] DR [place] [address] Anesthesia Record Procedure Summary Procedure Name Responsible [...] 01/06/15; median vein left (underside of arm); gqmd-kxm-rzxalm catheter system; 22 gauge, 1 in length; distraction, intradermal injection, tolerated well, appears comfortable; 01/06/15; 1914 (cannula intact, gauze applied) 01/06/15 0000 by Ashley Hall RN 01/06/151914 by Chelsey Arrieta RN (RETIRED) Peripheral IV Line - Single Lumen 01/06/15; 1510; metacarpal vein left (top of hand); hesc-dkk-wjgtjc catheter system; 18 gauge; st. naz; 01/06/15; [...] Morales at [facility] ??? Unlisted mr procedure 02/25/2014 MRI WITH ANESTHESIA performed by Geetha Morales at [facility] History Substance Use Topics ??? Smoking status: [...] anesthesia for evaluation of meningiomas, neurofibromas, and DOCKETING SPECIALIST shunt. No significant history otherwise. Plan MAC [...] r documented in this encounter Care Teams Assistant Broker Relationship Specialty Start Date End Date Dimas Lau MD [address] [place] [address] PCP - General 06/30/10 documented as of this encounter
--- OUTSIDE RECORDS SUMMARY | 2024-08-10 16:19 | XMS_ITS | Clinical Summary ---
Author Organization [facility] [place] [address] Care Team Providers Care Hypercil Core Transformer Assembler Name Role Phone Dimas Lau MD Primary Care Provider [phone] Allergies Active Allergy Reactions Criticality Noted Date [...] series) 04/08/2024 Medical Devices Implanted Type Area Tool And Die Assembler Device Identifier Shelf Expiration Date Model / Serial / Lot Banking Attorney Shunt Other Description:CONFERENCE SERVICES DIRECTOR SHUNT PLACED IN 1993. MRI Conditional up to 1.5T. Shraddha Lynn MRI Safety Technologist 11/02/2017 Advance Directives * Full Code (Latest Code Status on File) Date Activated Date Inactivated Comments 12/19/2015 12:19 PM 12/19/2015 4:44 PM Question Answer Comments Does patient have capacity to make decision: Yes Care Teams Hypercil Core Transformer Assembler Relationship Specialty Start Date End Date Dimas Lau MD [address] [place] [address] PCP - General 06/30/10
--- OUTSIDE RECORDS SUMMARY | 2024-08-10 16:19 | XMS_ITS | Encounter Summary ---
[place] [address] Care Team Providers Care Manager Loss Prevention Name Role Phone Dimas Lau MD Primary Care Provider Encounter Details Date Type Department Care Team (Late st Contact Info) Description 11/03/2017 Telephone [place] [phone] Aida Marcos Social History Tobacco Use Types [...] filedocumented in this encounter Care Teams Manager Loss Prevention Relationship Specialty Start Date End Date Dimas Lau MD [address] [place] [address] PCP - General 06/30/10 documented as of this encounter
--- OUTSIDE RECORDS SUMMARY | 2024-08-10 16:19 | XMS_ITS | Encounter Summary ---
Author Organization [facility] [address] Care Team Providers Care Hot Box Operator Name Role Phone Dimas Lau MD Primary Care Provider Encounter Details Date Type Department Care Team (Late st Contact Info) Description 12/23/2016 3:19 PM EDT [place] [phone] Duncan Aponte MD [facility] [place] [address] Anesthesia Record Procedure Summary Procedure Name Responsible [...] 1540; other (see comments) (right upper arm); oeoe-fcf-lmpurh catheter system; 22 gauge; 12/23/16; 1711 12/23/16 [...] Start Anesthesia Stop Room / Location 12/23/16 2632 1626 [facility] ADULT RADIOLOGY / [facility] GUILLERMINA Procedure Diagnosis Surgeon Responsible Provider MRI WITH ANESTHESIA (WRVU *) (N/A Brain) (neurofibromatosis type 2) RESOURCE, ANESTHESIA-Duncan Lerner MD All Anesthesia Providers: Anesthesiologist: Duncan Aponte MD STORE WAREHOUSE ASSOCIATE: Alicia Randolph CRNA; Brittney Catherine CRNA Last (1hr) Vitals: BP 112/73 (12/23/16 1700) Temp Pulse Resp 16 (12/23/16 1700) SpO2 99 % (12/23/16 1700) Patient Location: PACU/[facility] Level of Consciousness: Awake and [...] WITH ANESTHESIA performed by Resource, Anesthesia-Guillermina at [facility] ??? PRG UNLISTED MRI PROCEDURE 02/25/2014 MRI WITH ANESTHESIA performed by Resource, Anesthesia-Guillermina at [facility] ??? PRG UNLISTED MRI PROCEDURE N/A 01/06/2015 MRI WITH ANESTHESIA performed by RESOURCE, ANESTHESIA-GUILLEMRINA at [facility] ??? PRG UNLISTED MRI PROCEDURE N/A 12/19/2015 MRI WITH ANESTHESIA performed by RESOURCE, ANESTHESIA-GUILLERMINA at [facility] Social History Substance Use Topics [...] r documented in this encounter Care Teams Hot Box Operator Relationship Specialty Start Date End Date Dimas Lau MD [address] [place] [address] PCP - General 06/30/10 documented as of this encounter
--- OUTSIDE RECORDS SUMMARY | 2024-08-10 16:19 | XMS_ITS | Encounter Summary ---
Author Organization [facility] [place] [address] Care Team Providers Care Farm Service Consultant Name Role Phone Dimas Lau MD Primary Care Provider [phone] Encounter Details Date Type Department Care Team (Latest Contact Info) Description 01/06/2015 1:53 PM EDT - 01/06/2015 7:27 PM EDT Hospital Encounter [place] [phone] RESOURCE, ANESTHESIA-NICHOL Kishor Candelario MD [facility] [place] [address] Discharge Disposition: Home Social History Tobacco Use [...] Active and Recently Administered Medications Care Teams Farm Service Consultant Relationship Specialty Start Date End Date Dimas Lau MD [address] [place] [address] PCP - General 06/30/10 documented as of this encounter
--- OUTSIDE RECORDS SUMMARY | 2024-08-10 16:19 | XMS_ITS | Encounter Summary ---
Author Organization [facility] [place] [address] Care Team Providers Care Technical Support Associate Name Role Phone Dimas Lau MD Primary Care Provider [phone] Encounter Details Date Type Department Care Team (Late st Contact Info) Description 04/26/2018 1:00 PM EDT [place] [address] Jerry, Danny Palacios MD [facility] [address] [place] [address] Adwoa Mendez Anesthesia Record Procedure Summary Procedure [...] 1211; metacarpal vein (top of hand), right; vhgc-uci-daptho catheter system; 20 gauge, 1 in length; [...] Edwards MD - 04/26/2018 4:54 PM EDT [facility] Department of Anesthesiology Post-procedure Note Patient: Hollis Ambriz Procedure Summary Date Anesthesia Start Anesthesia Stop Room / Location 04/26/18 1300 1629 [facility] ADULT RADIOLOGY / [facility] Procedure Diagnosis Surgeon Responsible Provider MRI WITH ANESTHESIA (WRVU *) (N/A ) (NEUROFIBROMATOSIS) RESOURCE, ANESTHESIA- GUILLERMINA Danny Edwards MD All Anesthesia Providers: Anesthesiologist: Danny Edwards MD DETAIL TECHNICIAN: Brittney Catherine CRNA Most Recent Vitals: 04/26/18 1630 BP: 107/67 Pulse: Resp: (P) 18 Temp: SpO2: 96% Pain (P) 0 (04/26/18 1625) Patient Location: PACU/[facility] Level of Consciousness: Awake and Alert Pain [...] anesthetic course for his mother and home performance laborer. * Anesthesia Preprocedure Evaluation - [facility], Danny Palacios MD - 04/26/2018 12:27 PM [...] ANESTHESIA performed by Jair, Anesthesia-Guillermina at [facility] ??? PRG UNLISTED MRI PROCEDURE 02/25/2014 MRI WITH ANESTHESIA performed by Resource, Anesthesia-Guillermina at [facility] ??? PRG UNLISTED MRI PROCEDURE N/A 01/06/2015 MRI WITH ANESTHESIA performed by JAIR ANESTHESIA-GUILLERMINA at [facility] ??? PRG UNLISTED MRI PROCEDURE N/A 12/19/2015 MRI WITH ANESTHESIA performed by JAIR, ANESTHESIA-GUILLERMINA at [facility] ??? PRG UNLISTED MRI PROCEDURE N/A 12/23/2016 MRI WITH ANESTHESIA (WRVU *) performed by JAIR ANESTHESIA-GUILLERMINA at [facility] Social History Substance Use Topics ??? Smoking [...] immobilty, neurofibromatosis, meningionmas, bilateral accoustic neuromas, and vpk teacher shunt. He has screening MRI yearly. He [...] risks discussed with patient. Plan discussed with DETAIL TECHNICIAN. PAT Staff Note documented in this encounter [...] r documented in this encounter Care Teams Technical Support Associate Relationship Specialty Start Date End Date Dimas Lau MD [address] [place] [address] PCP - General 06/30/10 documented as of this encounter
--- OUTSIDE RECORDS SUMMARY | 2024-08-10 16:19 | XMS_ITS | Encounter Summary ---
[place] [address] Care Team Providers Care Recreational Vehicle Resort Manager Name Role Phone Dimas Lau MD Primary Care Provider [phone] Encounter Details Date Type Department Care Team (Late st Contact Info) Description 12/19/2015 12:30 PM EDT - 12/19/2015 1:50 [place] [phone] RESOURCE, ANESTHESIA-NICHOL None MRI WITH ANESTHESIA (WRVU [...] RN) documented in this encounter Care Teams Recreational Vehicle Resort Manager Relationship Specialty Start Date End Date Dimas Lau MD [address] [place] [address] PCP - General 06/30/10 documented as of this encounter
--- OUTSIDE RECORDS SUMMARY | 2024-08-10 16:19 | XMS_ITS | Encounter Summary ---
[place] [address] Care Team Providers Care Microbiology Lab Analyst Name Role Phone Dimas Lau MD Primary Care Provider Encounter Details Date Type Department Care Team (Late st Contact Info) Description 10/27/2017 Tele[place] [phone] Aida Marcos Social History Tobacco Use Types [...] on filedocumented in this encounter Care Teams Microbiology Lab Analyst Relationship Specialty Start Date End Date Dimas Lau MD [address] [place] [address] PCP - General 06/30/10 documented as of this encounter
--- OUTSIDE RECORDS SUMMARY | 2024-08-10 16:19 | XMS_ITS | Encounter Summary ---
[place] [address] Care Team Providers Care Waiter/Waitress Cabin Class Name Role Phone Dimas Lau MD Primary Care Provider Encounter Details Date Type Department Care Team (Latest Contact Info) Description 11/28/2012 10:31 AM EDT - 11/28/2012 3:20 PM EDT Hospital Encounter [place] [address] RESOURCE, ANESTHESIA-NICHOL Tigist Mcclain MD Discharge Disposition: Home Social History Tobacco Use [...] 11/28/2012 5:42 PM EDTAssociated Order(s): SCAN DOC: GUNCOTTON PACKER documented in this encounter Miscellaneous Notes * Miscellaneous - Provider, Scanning - 11/28/2012 6:06 PM EDT * Miscellaneous - Provider, Scanning - 11/28/2012 11:06 AM EDT documented in this encounter Plan of Treatment Not on file documented as of this encounter Procedures Procedure Name Priority Date/Time Associated Diagnosis Comments MRI WITH ANESTHESIA (WRVU *) 11/28/2012 8:05 PM EDT Neurofibromatosis w/mengioma; ? vp director of creative strategy shunt malformation GUNCOTTON PACKER SCAN 11/28/2012 5:42 PM EDT documented in this encounter Results * SCAN DOC: GUNCOTTON PACKER (11/28/2012 5:42 PM EDT) Anatomical Region Laterality [...] CRNA) documented in this encounter Care Teams Waiter/Waitress Cabin Class Relationship Specialty Start Date End Date Dimas Lau MD [address] [place] [address] PCP - General 06/30/10 documented as of this encounter
--- OUTSIDE RECORDS SUMMARY | 2024-08-10 16:19 | XMS_ITS | Encounter Summary ---
[place] [address] Care Team Providers Care Quarter Section Ironer Name Role Phone Dimas Lau MD Primary Care Provider Encounter Details Date Type Department Care Team (Latest Contact Info) Description 12/23/2016 1:39 PM EDT - 12/23/2016 5:19 PM EDT Hospital Encounter [place] [phone] Duncan Aponte MD [facility] DR ANESTHESIOLOGY DEPT [place] [id number] Discharge Disposition: Home Social History Tobacco Use [...] Routine documented in this encounter Care Teams Quarter Section Ironer Relationship Specialty Start Date End Date Dimas Lau MD [address] [place] [address] PCP - General 06/30/10 documented as of this encounter
--- OUTSIDE RECORDS SUMMARY | 2024-08-10 16:19 | XMS_ITS | Encounter Summary ---
[place] [address] Care Team Providers Care Shearing Shed Worker Name Role Phone Dimas Lau MD Primary Care Provider Encounter Details Date Type Department Care Team (Late st Contact Info) Description 02/25/2014 3:30 PM EDT - 02/25/2014 4:30 [place] [phone] RESOURCE, ANESTHESIA-NICHOL None MRI WITH ANESTHESIA (WRVU [...] Aleman) documented in this encounter Care Teams Shearing Shed Worker Relationship Specialty Start Date End Date Dimas Lau MD [address] [place] [address] PCP - General 06/30/10 documented as of this encounter
--- OUTSIDE RECORDS SUMMARY | 2024-08-10 16:19 | XMS_ITS | Encounter Summary ---
Author Organization [facility] Address [facility] [place] [address] Care Team Providers Care Staff Antisubmarine Officer Name Role Phone Dimas Lau MD Primary Care Provider [phone] Encounter Details Date Type Department Care Team (Late st Contact Info) Description 11/01/2017 Orders Only [place] [phone] Joseline Ward APRN [facility] [place] [address] NF2-related schwannomatosis; Acoustic neuroma Social History Tobacco [...] nerves documented in this encounter Care Teams Staff Antisubmarine Officer Relationship Specialty Start Date End Date Dimas Lau MD [address] [place] [address] PCP - General 06/30/10 documented as of this encounter
--- OUTSIDE RECORDS SUMMARY | 2024-08-10 16:19 | XMS_ITS | Encounter Summary ---
[place] [address] Care Team Providers Care Tar Distillation Supervisor Name Role Phone Dimas Lau MD Primary Care Provider [phone] Encounter Details Date Type Department Care Team (Late st Contact Info) Description 02/25/2014 3:38 PM [place] [phone] Boyd Joaquin MD Gaudette, Katherine A Anesthesia Record Procedure Summary Procedure Name Responsible [...] 1453; metacarpal vein right (top of hand); mmas-ghp-wcwoxr catheter system; 20 gauge, 1 in length; Masood Hamilton RN; distraction, intradermal injection, tolerated well, appears comfortable, age-appropriate response; 2; 02/25/14; 1817 02/25/14 1453 by Cheyanne Marcial RN 02/25/14 1817 by Natalie Carvajal RN documented in this [...] WITH ANESTHESIA performed by Christine Morales-Guillermina at [facility] History Substance Use Topics ??? [...] normal Dental Assessment: Comment: Overall poor dentician [facility] Assessment: IV access: Peripheral line Anesthesia Plan: ASA 2 general, with a(n) intravenous induction Patient is a 48 yo male presenting for MRI w/ anesthesia for evaluation of meningiomas, neurofibromas, and ANALYTICS SENIOR MANAGER shunt. No significant history otherwise. Plan MAC w/ propofol gtt. Region - Other Informed Consent: Anesthetic plan and risks discussed with patient and mother. Use of blood products discussed with patient and mother whom consented to blood products. Plan discussed with attending. [facility]. Assessment: documented in this encounter Plan of [...] r documented in this encounter Care Teams Tar Distillation Supervisor Relationship Specialty Start Date End Date Dimas Lau MD [address] [place] [address] PCP - General 06/30/10 documented as of this encounter
--- OUTSIDE RECORDS SUMMARY | 2024-08-10 16:19 | XMS_ITS | Encounter Summary ---
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 He [...] of a prior meningioma, and placement of IN HOME NANNY shunt due to hydrocephalus following surgery. ROS: [...] nerves documented in this encounter Care Teams Transistor Tester Relationship Specialty Start Date End Date Dimas Lau MD [address] [place] [address] PCP - General 06/30/10 documented as of this encounter
--- OUTSIDE RECORDS SUMMARY | 2024-08-10 16:19 | XMS_ITS | Encounter Summary ---
[place] [address] Care Team Providers Care Boilers Inspector Name Role Phone Dimas Lau MD Primary Care Provider 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 * Diagnostic Test (Routine) - Closed Specialty Diagnoses / Procedures Referred By Contac t Referred To Contact Radiology Diagnoses Loss of balance Procedures MRI Total Spine wwo Contrast Dimas Lau MD [address] [place] [address] [place] [address] Referral ID Status Reason Start Date Expiration Date V isits Requested Visits Authorized [id number] Closed Specialty Service Requested 02/15/2018 02/15/2019 1 1 * Diagnostic Test (Routine) - Specialty Diagnoses / Procedures Referred By Contac t Referred To Contact Radiology Diagnoses Loss of balance Procedures MRI Brain wwo Contrast (Generic) Dimas Lau MD [address] [place] [address] [place] [address] Referral ID Status Reason Start Date Expiration Date Visits Requested Visits Authorized [id number] Specialty Service Requested 02/15/2018 02/15/2019 1 1 Reason for Visit * Diagnostic Test (Routine) - Closed Specialty Diagnoses / Procedures Referred By Contac t Referred To Contact Radiology Diagnoses Loss of balance Procedures MRI Total Spine wwo Contrast Dimas Lau MD [address] [place] [address] [facility] [place] [place] [address] Referral ID Status Reason Start Date Expiration Date V isits Requested Visits Authorized [id number] Closed Specialty Service Requested 02/15/2018 02/15/2019 1 1 Encounter Details Date Type Department Care Team (Latest Contact Info) Description 04/26/2018 12:30 PM EDT - 04/26/2018 11:59 PM EDT Hospital [place] [address] Dimas Lau MD [address] [place] [address] Loss of balance Discharge Disposition: [...] areas of CSF pulsation artifact on axial [id number]. No extra-axial enhancing mass is identified. Lumbar [...] may represent small schwannoma. Dimas Lau MD [facility] [place] ORDERABLES * MRI Brain [...] areas of CSF pulsation artifact on axial [id number]. No extra-axial enhancing mass is identified. Lumbar [...] mLs documented in this encounter Care Teams Boilers Inspector Relationship Specialty Start Date End Date Dimas Lau MD [address] [place] [address] PCP - General 06/30/10 documented as of this encounter
--- OUTSIDE RECORDS SUMMARY | 2024-08-10 16:19 | XMS_ITS | Encounter Summary ---
Author Organization [facility] [place] [address] Care Team Providers Care Loss Prevention Investigator Name Role Phone Dimas Lau MD Primary Care Provider Encounter Details Date Type Department Care Team (Latest Contact Info) Description 11/28/2012 12:51 PM EDT - 11/28/2012 11:59 PM EDT Hospital [place] [address] CLINIC, Dimas Vance MD [address] [place] [address] Discharge Disposition: Home Social History [...] IN KNOWN MENINGIOMAS/ACUSTIC NEUROMAS ? EVIDENCE FOR INSPECTOR ADVANCED COMPOSITE SHUNT MALFUNCTION Comparison MR of the brain [...] IN KNOWN MENINGIOMAS/ACUSTIC NEUROMAS ? EVIDENCE FOR INSPECTOR ADVANCED COMPOSITE SHUNT MALFUNCTION Comparison MR of the brain [...] on filedocumented in this encounter Care Teams Loss Prevention Investigator Relationship Specialty Start Date End Date Dimas Lau MD [address] [place] [address] PCP - General 06/30/10 documented as of this encounter
--- OUTSIDE RECORDS SUMMARY | 2024-08-10 16:19 | XMS_ITS | Encounter Summary ---
[place] [address] Care Team Providers Care Nut Roaster Name Role Phone Dimas Lau MD Primary Care Provider Encounter Details Date Type Department Care Team (Late st Contact Info) Description 02/13/2016 11:00 AM EDT Office Visit Audiology at [address] [address] Jane Berrios AUD Bilateral acoustic neuromas; Unspecified hearing loss, bilateral [...] - 02/13/2016 11:27 AM [place] [address] Hollis Ambriz, 50 y.o., was seen on 02/14/2016 for an audiologic evaluation in conjunction with in Otolaryngology. Please refer to the scanned audiogram listed under Scanned Documents in Chart Review for findings, impressions and recommendations. NOTE: Attempted picture pointing for SRT but was unsuccessful. Enclosure: [place] [address] documented in this encounter Plan of Treatment Not on file documented as of this encounter Visit Diagnoses Diagnosis Bilateral acoustic neuromas Benign neoplasm of cranial nerves Unspecified hearing loss, bilateral documented in this encounter Care Teams Nut Roaster Relationship Specialty Start Date End Date Dimas Lau MD [address] [place] [address] PCP - General 06/30/10 documented as of this encounter
--- OUTSIDE RECORDS SUMMARY | 2024-08-10 16:19 | XMS_ITS | Encounter Summary ---
[place] [address] Care Team Providers Care Manager Of Financial Planning Name Role Phone Dimas Lau MD Primary Care Provider Reason for Visit * Reason Onset Date Comments Medical Care Coordination 06/29/2013 Pt laura y called to speak with Claudette to [facility] Encounter Details Date Type Department Care Team (Late st Contact Info) Description 06/29/2013 [place] [phone] Lorrie Hansen MD Medical Care Coordination (Pt very called to speak with Claudette to [facility]) Social History [...] in this encounter Care Teams Manager Of Financial Planning Relationship Specialty Start Date End Date Dimas Lau MD [address] [place] [address] PCP - General 06/30/10 documented as of this encounter
--- OUTSIDE RECORDS SUMMARY | 2024-08-10 16:19 | XMS_ITS | Encounter Summary ---
[place] [address] Care Team Providers Care Claims Correspondence Clerk Name Role Phone Dimas Lau MD Primary Care Provider Encounter Details Date Type Department Care Team (Late st Contact Info) Description 04/26/2018 12:30 PM EDT - 04/26/2018 3:30 [place] [phone] RESOURCE, ANESTHESIA-NICHOL None MRI WITH ANESTHESIA (WRVU [...] CRNA) documented in this encounter Care Teams Claims Correspondence Clerk Relationship Specialty Start Date End Date Dimas Lau MD [address] [place] [address] PCP - General 06/30/10 documented as of this encounter
--- OUTSIDE RECORDS SUMMARY | 2024-08-10 16:19 | XMS_ITS | Encounter Summary ---
[place] [address] Care Team Providers Care Bench Hand Name Role Phone Dimas Lau MD Primary Care Provider Encounter Details Date Type Department Care Team (Late st Contact Info) Description 02/23/2016 External Results [place] [phone] Jane Berrios AUD Social History Tobacco Use Types Packs/Day Years [...] on filedocumented in this encounter Care Teams Bench Hand Relationship Specialty Start Date End Date Dimas Lau MD [address] [place] [address] PCP - General 06/30/10 documented as of this encounter
--- OUTSIDE RECORDS SUMMARY | 2024-08-10 16:19 | XMS_ITS | Encounter Summary ---
[place] [address] Care Team Providers Care Denture Packer Name Role Phone Dimas Lau MD Primary Care Provider Encounter Details Date Type Department Care Team (Late st Contact Info) Description 02/24/2016 Tele[place] [address] Yolie Yoo RN Social History [...] on filedocumented in this encounter Care Teams Denture Packer Relationship Specialty Start Date End Date Dimas Lua MD [address] [place] [address] PCP - General 06/30/10 documented as of this encounter
--- OUTSIDE RECORDS SUMMARY | 2024-08-10 16:19 | XMS_ITS | Encounter Summary ---
[place] [address] Care Team Providers Care Program Officer Name Role Phone Dimas Lau MD Primary Care Provider Encounter Details Date Type Department Care Team (Late st Contact Info) Description 12/25/2010 9:20 AM EDT - 12/25/2010 11:59 PM EDT Hospital [place] [phone] Social History Tobacco Use Types Packs/Day Years [...] Shukla RN - 12/22/2010 10:21 AM EDT [facility] NURSING DATABASE Name: YURIY ALCANTAR Date of : 1965 Address: [address] [place] [address] (home) Referring Provider: Dimas Lau Reason for Visit: MRI with IV sedation Allergies Allergen Reactions ??? Carbamazepine CIS - diarrhea ??? Sulfa (Sulfonamide Antibiotics) CIS - Nausea/Vomiting ??? 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 Pertinent PSH: INTER COM SERVICER shunt 1994 Resected menigioma 1994 Date/Procedure Comments: [...] mg documented in this encounter Care Teams Program Officer Relationship Specialty Start Date End Date Dimas Lau MD [address] [place] [address] PCP - General 06/30/10 documented as of this encounter
--- OUTSIDE RECORDS SUMMARY | 2024-08-10 16:19 | XMS_ITS | Encounter Summary ---
[place] [address] Care Team Providers Care Past Due Accounts Clerk Name Role Phone Dimas Lau MD Primary Care Provider 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 * Diagnostic Test (Routine) - Closed Specialty Diagnoses / Procedures Referred By Contac t Referred To Contact Radiology Diagnoses Neurofibromatosis, type 2 Loss of balance Meningioma Procedures MRI Brain With/WO Contrast (GENERIC) Dimas Lau MD [address] [place] [address] [place] [address] Referral ID Status Reason Start Date Expiration Date V isits Requested Visits Authorized [id number] Closed Specialty Service Requested 11/22/2016 11/22/2017 1 1 Reason for Visit * Diagnostic Test (Routine) - Closed Specialty Diagnoses / Procedures Referred By Contac t Referred To Contact Radiology Diagnoses Neurofibromatosis, type 2 Loss of balance Meningioma Procedures MRI Brain With/WO Contrast (GENERIC) Dimas Lau MD [address] [place] [address] [place] [address] Referral ID Status Reason Start Date Expiration Date V isits Requested Visits Authorized [id number] Closed Specialty Service Requested 11/22/2016 11/22/2017 1 1 Encounter Details Date Type Department Care Team (Latest Contact Info) Description 12/23/2016 2:50 PM EDT - 12/23/2016 11:59 PM EDT Hospital [place] [address] Dimas Lau MD [address] [place] [address] Neurofibromatosis, type 2; Loss of balance; Meningioma [...] mLs documented in this encounter Care Teams Past Due Accounts Clerk Relationship Specialty Start Date End Date Dimas Lau MD [address] [place] [address] PCP - General 06/30/10 documented as of this encounter
--- OUTSIDE RECORDS SUMMARY | 2024-08-10 16:19 | XMS_ITS | Encounter Summary ---
Author [place] [address] Care Team Providers Care Compliance Engineer Products Name Role Phone Dimas Lau MD Primary Care Provider [phone] 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 * Diagnostic Test (Routine) - Closed Specialty Diagnoses / Procedures Referred By Contac t Referred To Contact Radiology Diagnoses Bilateral acoustic neuromas Procedures MRI Brain With/WO Contrast (GENERIC) Joseline Ward APRN [facility] [place] [address] [place] [address] Referral ID Status Reason Start Date Expiration Date V isits Requested Visits Authorized [id number] Closed Specialty Service Requested 11/12/2015 11/11/2016 1 1 Encounter Details Date Type Department Care Team (Late st Contact Info) Description 11/12/2015 Orders [place] [address] Joseline Ward MALE INFERTILITY SPECIALIST [facility] [address] Bilateral acoustic neuromas Social History Tobacco Use [...] nerves documented in this encounter Care Teams Compliance Engineer Products Relationship Specialty Start Date End Date Dimas Lau MD [address] [place] [address] PCP - General 06/30/10 documented as of this encounter
--- OUTSIDE RECORDS SUMMARY | 2024-08-10 16:19 | XMS_ITS | Encounter Summary ---
Author Organization [facility] Address [facility] [place] [address] Care Team Providers Care Timber Feller Name Role Phone Dimas Lau MD Primary Care Provider [phone] Encounter Details Date Type Department Care Team (Latest Contact Info) Description 02/17/2012 12:21 PM EDT - 02/17/2012 11:59 PM EDT Hospital Encounter MRI at [facility] [place] [address] CLINIC, Dimas Vance MD [address] [place] [address] Discharge Disposition: Home Social History [...] Diaz RN - 02/14/2012 11:10 AM EDT [facility] NURSING DATABASE Name: YURIY ALCANTAR Date of : 1965 AGE 46 y.o. Address: [address] [place] [address] (home) Mobile: No relevant phone numbers on [...] mg documented in this encounter Care Teams Timber Feller Relationship Specialty Start Date End Date Dimas Lau MD [address] [place] [address] PCP - General 06/30/10 documented as of this encounter
--- OUTSIDE RECORDS SUMMARY | 2024-08-10 16:19 | XMS_ITS | Encounter Summary ---
Author Organization [facility] Address [facility] [place] [address] Care Team Providers Care Early Childhood Coordinator Name Role Phone Dimas Lau MD Primary Care Provider [phone] Encounter Details Date Type Department Care Team (Late st Contact Info) Description 02/20/2016 Telephone [place] [address] Joseline Ward APRN [facility] [place] [address] Social History Tobacco Use Types Packs/Day Years [...] on filedocumented in this encounter Care Teams Early Childhood Coordinator Relationship Specialty Start Date End Date Dimas Lau MD [address] [place] [address] PCP - General 06/30/10 documented as of this encounter
--- OUTSIDE RECORDS SUMMARY | 2024-08-10 16:19 | XMS_ITS | Encounter Summary ---
Author Organization [facility] [place] [address] Care Team Providers Care Change Management Manager Name Role Phone Dimas Lau MD Primary Care Provider [phone] Encounter Details Date Type Department Care Team (Latest Contact Info) Description 01/06/2015 2:50 PM EDT - 01/06/2015 11:59 PM EDT Hospital Encounter MRI at [facility] [place] [address] CLINIC, Denis Durham MD [facility] [place] [address] Discharge Disposition: Home Social History Tobacco Use [...] mLs documented in this encounter Care Teams Change Management Manager Relationship Specialty Start Date End Date Dimas Lau MD [address] [place] [address] PCP - General 06/30/10 documented as of this encounter
--- OUTSIDE RECORDS SUMMARY | 2024-08-10 16:19 | XMS_ITS | Encounter Summary ---
[place] [address] Care Team Providers Care Extraction Operator Name Role Phone Dimas Lau MD Primary Care Provider [phone] Encounter Details Date Type Department Care Team (Late st Contact Info) Description 12/19/2015 12:49 PM ED[place] [address] Stefan Hatfield MD [facility] [place] [address] Alexsandra Van CRNA [facility] [place] [address] Anesthesia Record Procedure Summary Procedure Name Responsible [...] an stop data 1402 Transport Transport to [facility] 1407 Recovery or ICU Handoff Giovanna [...] 1245; median vein right (underside of arm); [id number]-[id number] catheter system; 22 gauge, 1 in length; [...] Hatfield MD - 12/19/2015 4:10 PM EDT [facility] Department of Anesthesiology Post-procedure Note Patient: Hollis Ambriz Procedure Summary Date Anesthesia Start Anesthesia Stop Room / Location 12/19/15 3924 [id number] [facility] ADULT RADIOLOGY / [facility] GUILLERMINA Procedure Diagnosis Surgeon Responsible Provider MRI WITH ANESTHESIA (N/A Brain) (BILATERAL ACOUSTIC NEUROMAS; NF, BILATERAL ACOUSTIC NEUROMA, MULTIPLE MENINGIOMAS, EVALUATE FOR CHANGE; IAC PROTOCAL FOR SKULL BASE ) RESOURCE, ANESTHESIA-Stefan Zapien MD All Anesthesia Providers: Anesthesiologist: Stefan Hatfield MD BLOOD BANK ASSISTANT: Lit Bradley CRNA Last (1hr) Vitals: BP [...] WITH ANESTHESIA performed by Jair Anesthesia-Guillermina at [facility] ??? Unlisted mr procedure 02/25/2014 MRI WITH ANESTHESIA performed by Jair, Anesthesia-Guillermina at [facility] ??? Unlisted mr procedure N/A 01/06/2015 MRI WITH ANESTHESIA performed by JAIR, ANESTHESIA-GUILLERMINA at [facility] History Substance Use Topics ??? Smoking [...] MRI to evaluate meningionmas, bilateral accoustic neuromas, vp training shunt, neurofibromatoma Has screening MRI yearly Has [...] legal guardian and mother. Plan discussed with BLOOD BANK ASSISTANT. PAT Staff Note documented in this encounter [...] hr documented in this encounter Care Teams Extraction Operator Relationship Specialty Start Date End Date Dimas Lau MD [address] [place] [address] PCP - General 06/30/10 documented as of this encounter
--- OUTSIDE RECORDS SUMMARY | 2024-08-10 16:19 | XMS_ITS | Encounter Summary ---
Author Organization [facility] Address [facility] [place] [address] Care Team Providers Care Ed Case Manager Name Role Phone Dimas Lau MD Primary Care Provider [phone] Reason for Visit * Reason Comments Acoustic Neuroma Bilateral , ref by N euro Encounter Details Date Type Department Care Team (Late st Contact Info) Description 02/13/2016 1:00 PM EDT Office Visit Otolaryngology at [facility] [place] [place] [address] Perico Ball MD [facility] DR OTOLARYNGOLOGY [place] [id number] Acoustic neuroma syndrome, right; Meningioma of cerebellum; [...] chromosome documented in this encounter Care Teams Ed Case Manager Relationship Specialty Start Date End Date Dimas Lau MD [address] [place] [address] PCP - General 06/30/10 documented as of this encounter
--- OUTSIDE RECORDS SUMMARY | 2024-08-10 16:19 | XMS_ITS | Encounter Summary ---
Author [facility] [place] [address] Care Team Providers Care Communication Clerk Name Role Phone Dimas Lau MD Primary Care Provider Encounter Details Date Type Department Care Team (Latest Contact Info) Description 04/26/2018 11:03 AM EDT - 04/26/2018 5:52 PM EDT Hospital Encounter [place] [address] Jerry, Danny Palacios MD [facility] [place] [address] Discharge Disposition: Home Social History Tobacco Use [...] CRNA) documented in this encounter Care Teams Communication Clerk Relationship Specialty Start Date End Date Dimas Lau MD [address] [place] [address] PCP - General 06/30/10 documented as of this encounter
--- OUTSIDE RECORDS SUMMARY | 2024-08-10 16:19 | XMS_ITS | Encounter Summary ---
Author Organization [facility] [place] [address] Care Team Providers Care Pharmacy Tech Name Role Phone Dimas Lau MD Primary Care Provider Encounter Details Date Type Department Care Team (Late st Contact Info) Description 02/25/2014 2:14 PM EDT - 02/25/2014 6:15 PM EDT Hospital Encounter [place] [address] RESOURCE, ANESTHESIA-NICHOL Boyd Marlow MD Discharge Disposition: Home Social History Tobacco [...] (New Bag - Prov ider: Cheyanne Marcial, RN)[id number] (New Bag - Provider: Natalie Carvajal, KENNEDY - Comment: BP low continue w/IVF until pt. awake and alert) PRN Medication Order 02/23/2014 02/24/2014 02/25/2014 gadopentetate dimeglumine (MAGNEVIST) injection 15 mL (COMPLETED) 15 mL, Intravenous, ONCE PRN, Per Protocol, Starting on Tue02/25/14 at 1604, 1 dose, Until Tue02/25/14 at 1609 1609 (Given - Provid er: Valentina Aleman) documented in this encounter Care Teams Pharmacy Tech Relationship Specialty Start Date End Date Dimas Lau MD [address] [place] [address] PCP - General 06/30/10 documented as of this encounter
--- OUTSIDE RECORDS SUMMARY | 2024-08-10 16:19 | XMS_ITS | Encounter Summary ---
[place] [address] Care Team Providers Care Butt Trimmer Name Role Phone Dimas Lau MD Primary Care Provider 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 * Diagnostic Test (Routine) - Closed Specialty Diagnoses / Procedures Referred By Contac t Referred To Contact Radiology Diagnoses Bilateral acoustic neuromas Procedures MRI Brain With/WO Contrast (GENERIC) Joseline Ward FAMILY DAY CARER [facility] [place] [address] [place] [address] Referral ID Status Reason Start Date Expiration Date V isits Requested Visits Authorized [id number] Closed Specialty Service Requested 11/12/2015 11/11/2016 1 1 Reason for Visit * Diagnostic Test (Routine) - Closed Specialty Diagnoses / Procedures Referred By Contac t Referred To Contact Radiology Diagnoses Bilateral acoustic neuromas Procedures MRI Brain With/WO Contrast (GENERIC) Joseline Ward [facility] [place] [address] [place] [address] Referral ID Status Reason Start Date Expiration Date V isits Requested Visits Authorized [id number] Closed Specialty Service Requested 11/12/2015 11/11/2016 1 1 Encounter Details Date Type Department Care Team (Latest Contact Info) Description 12/19/2015 12:26 PM EDT - 12/19/2015 11:59 PM EDT Hospital [place] [address] Alex Lynn MD [facility] [address] [facility] [place] [address] Bilateral acoustic neuromas Discharge Disposition: Home Social [...] mLs documented in this encounter Care Teams Butt Trimmer Relationship Specialty Start Date End Date Dimas Lau MD [address] [place] [address] PCP - General 06/30/10 documented as of this encounter
--- OUTSIDE RECORDS SUMMARY | 2024-08-10 16:19 | XMS_ITS | Encounter Summary ---
[place] [address] Care Team Providers Care Bail Bondsman Name Role Phone Dimas Lau MD Primary Care Provider Encounter Details Date Type Department Care Team (Late st Contact Info) Description 11/02/2017 Telephone [place] [address] Aida Marcos Social History Tobacco Use Types [...] on filedocumented in this encounter Care Teams Bail Bondsman Relationship Specialty Start Date End Date Dimas Lau MD [address] [place] [address] PCP - General 06/30/10 documented as of this encounter
--- OUTSIDE RECORDS SUMMARY | 2024-08-10 16:19 | XMS_ITS | Encounter Summary ---
[place] [address] Care Team Providers Care Management Internship Name Role Phone Dimas Lau MD Primary Care Provider [phone] Encounter Details Date Type Department Care Team (Latest Contact Info) Description 12/19/2015 11:17 AM EDT - 12/19/2015 2:43 PM EDT Hospital Encounter [place] [phone] Stefan Mack MD [facility] [place] [address] Discharge Disposition: Home Social History Tobacco Use [...] RN) documented in this encounter Care Teams Management Internship Relationship Specialty Start Date End Date Dimas Lau MD [address] [place] [address] PCP - General 06/30/10 documented as of this encounter
--- OUTSIDE RECORDS SUMMARY | 2024-08-10 16:19 | XMS_ITS | Encounter Summary ---
[place] [address] Care Team Providers Care Extractions Technician Name Role Phone Dimas Lau MD Primary Care Provider [phone] Encounter Details Date Type Department Care Team (Late st Contact Info) Description 05/03/2018 Tele[place] [address] Catrina Lopez Social History Tobacco Use Types [...] on filedocumented in this encounter Care Teams Extractions Technician Relationship Specialty Start Date End Date Dimas Lau MD [address] [place] [address] PCP - General 06/30/10 documented as of this encounter
--- OUTSIDE RECORDS SUMMARY | 2024-08-10 16:19 | XMS_ITS | Encounter Summary ---
Author Organization [facility] [place] [address] Care Team Providers Care Printed Circuit Boards Solder Leveler Name Role Phone Dimas Lau MD Primary Care Provider Encounter Details Date Type Department Care Team (Late st Contact Info) Description 05/04/2018 Telephone [place] [address] Chelsey Hill, RN Social History [...] - 05/04/2018 10:07 AM EDT Brennan from [facility] ([phone]) phoned to inquire if Dr. Dimas Lau [...] on filedocumented in this encounter Care Teams Printed Circuit Boards Solder Leveler Relationship Specialty Start Date End Date Dimas Lau MD [address] [place] [address] PCP - General 06/30/10 documented as of this encounter
--- OUTSIDE RECORDS SUMMARY | 2024-08-10 16:19 | XMS_ITS | Encounter Summary ---
[place] [address] Care Team Providers Care Ritual Circumciser Name Role Phone Dimas Lau MD Primary Care Provider Encounter Details Date Type Department Care Team (Late st Contact Info) Description 04/20/2013 [place] [address] Lorrie Hansen MD Social History Tobacco Use Types Packs/Day Years Used Date Smoking Tobacco: Never Assessed Sex and Gender Information Value Date Recorded Sex Assigned at Not on file Gender Identity Not on file Sexual Orientation Not on file documented as of this encounter Plan of Treatment Not on file documented as of this encounter Visit Diagnoses Not on filedocumented in this encounter Care Teams Ritual Circumciser Relationship Specialty Start Date End Date Dimas Lau MD [address] [place] [address] PCP - General 06/30/10 documented as of this encounter
--- OUTSIDE RECORDS SUMMARY | 2024-08-10 16:19 | XMS_ITS | Encounter Summary ---
[place] [address] Care Team Providers Care Ramp Lead Name Role Phone Dimas Lau MD Primary Care Provider Encounter Details Date Type Department Care Team (Late st Contact Info) Description 11/28/2012 12:05 PM EDT - 11/28/2012 1:18 [place] [address] RESOURCE, ANESTHESIA-NICHOL None MRI WITH ANESTHESIA (WRVU [...] 11/28/2012 5:42 PM EDTAssociated Order(s): SCAN DOC: RISK ADJUSTMENT SPECIALIST documented in this encounter Miscellaneous Notes * Miscellaneous - Provider, Scanning - 11/28/2012 6:06 PM EDT * Miscellaneous - Provider, Scanning - 11/28/2012 11:06 AM EDT documented in this encounter Plan of Treatment Not on file documented as of this encounter Procedures Procedure Name Priority Date/Time Associated Diagnosis Comments MRI WITH ANESTHESIA (WRVU *) 11/28/2012 8:05 PM EDT Neurofibromatosis w/mengioma; ? vp human resources shunt malformation RISK ADJUSTMENT SPECIALIST SCAN 11/28/2012 5:42 PM EDT documented in this encounter Results * SCAN DOC: RISK ADJUSTMENT SPECIALIST (11/28/2012 5:42 PM EDT) Anatomical Region [...] CRNA) documented in this encounter Care Teams Ramp Lead Relationship Specialty Start Date End Date Dimas Lau MD [address] [place] [address] PCP - General 06/30/10 documented as of this encounter
--- OUTSIDE RECORDS SUMMARY | 2024-08-10 16:19 | XMS_ITS | Encounter Summary ---
[place] [address] Care Team Providers Care Store Stock Associate Name Role Phone Dimas Lau MD Primary Care Provider Encounter Details Date Type Department Care Team (Late st Contact Info) Description 12/23/2016 2:50 PM EDT - 12/23/2016 4:10 [place] [address] RESOURCE, ANESTHESIA-NICHOL None MRI WITH ANESTHESIA (WRVU [...] Routine documented in this encounter Care Teams Store Stock Associate Relationship Specialty Start Date End Date Dimas Lau MD [address] [place] [address] PCP - General 06/30/10 documented as of this encounter
--- OUTSIDE RECORDS SUMMARY | 2024-08-10 16:19 | XMS_ITS | Encounter Summary ---
Author Organization [facility] Address [facility] [place] [place] [address] Care Team Providers Care Senior Director Marketing Name Role Phone Dimas Lau MD Primary Care Provider Encounter Details Date Type Department Care Team (Late st Contact Info) Description 11/12/2015 Orders [place] [phone] Alex Lynn MD [facility] [place] [address] Social History Tobacco Use Types Packs/Day Years [...] filedocumented in this encounter Care Teams Senior Director Marketing Relationship Specialty Start Date End Date Dimas Lau MD [address] [place], [place] [address] PCP - General 06/30/10 documented as of this encounter
--- OUTSIDE RECORDS SUMMARY | 2024-08-10 16:19 | XMS_ITS | Encounter Summary ---
[place] [address] Care Team Providers Care Business Affairs Manager Name Role Phone Dimas Lau MD Primary Care Provider Encounter Details Date Type Department Care Team (Late st Contact Info) Description 06/27/2013 Abstract [place] [address] Lorrie Hansen MD Social History Tobacco Use [...] on filedocumented in this encounter Care Teams Business Affairs Manager Relationship Specialty Start Date End Date Dimas Lau MD [address] [place] [address] PCP - General 06/30/10 documented as of this encounter
--- OUTSIDE RECORDS SUMMARY | 2024-08-10 16:20 | XMS_ITS | Encounter Summary ---
Author Organization [facility] Address [address] [place] [address] Care Team Providers Care Gas Station Clerk Name Role Phone Unavailable Primary Care Provider Unavailabl e Encounter Details Date Type Department Care Team (Late st Contact Info) Description 06/07/2006 Results Only [facility] [address] [place] [address] Boyd Márquez, DO [address] [facility] [address] [place] [address] Social History Tobacco Use Types [...] ? YURIY ALCANTAR ? Accession #: ? [id number] ? : ? 1965 (Age: 40) ??M [...] specimen is entirely submitted as (F). ??(Sher Haile/[facility] End of Report SULEMA GONZÁLES 06/07/2006 06/08/2006 10: 26 EST us Boyd Márquez DO PATHOLOGY ORDERABLES Fi nal Result SULEMA GONZÁLES [address] [place] [address] documented in this encounter Visit Diagnoses Not on filedocumented in this encounter
--- OUTSIDE RECORDS SUMMARY | 2024-08-10 16:20 | XMS_ITS | Encounter Summary ---
Author Organization [facility] [place] [address] Care Team Providers Care Weed Control Inspector Name Role Phone Dimas Lau MD Primary Care Provider Encounter Details Date Type Department Care Team (Latest Contact Info) Description 12/25/2010 9:19 AM EDT - 12/25/2010 11:59 PM EDT Hospital [place] [address] CLINIC, Dimas Vance MD [address] [place] [address] Discharge Disposition: Home Social History [...] mLs documented in this encounter Care Teams Weed Control Inspector Relationship Specialty Start Date End Date Dimas Lau MD [address] [place] [address] PCP - General 06/30/10 documented as of this encounter
--- OUTSIDE RECORDS SUMMARY | 2024-08-10 16:20 | XMS_ITS | Encounter Summary ---
Author Organization [facility] Address [facility] [place] [address] Care Team Providers Care Snath Handle Assembler Name Role Phone Dimas Lau MD Primary Care Provider [phone] Encounter Details Date Type Department Care Team (Late st Contact Info) Description 12/13/2008 Orders [place] [address] Deshawn Mcgregor MD [facility] [place] [address] Social History Tobacco Use Types Packs/Day Years [...] 8:02 PM EDT) Surgical Pathology Report [id number] ? Location: [facility] The signing pathologist has (i) examined the [...] report in rendering the final pathologic diagnosis. [facility] 12/13/2008 8:02 PM EDT Deshawn Mcgregor MD PATHOLOGY/CYTOLOGY ORDERABLES Performing Organization Address City/State/[facility] [place] Phone Number [facility] documented in this encounter Visit Diagnoses Not on filedocumented in this encounter Care Teams Snath Handle Assembler Relationship Specialty Start Date End Date Dimas Lau MD [address] [place] [address] PCP - General 06/30/10 documented as of this encounter
--- OUTSIDE RECORDS SUMMARY | 2024-08-10 16:20 | XMS_ITS | Encounter Summary ---
Author Organization [facility] Address [address] [place] [address] Care Team Providers Care Bracelet Former Name Role Phone Dimas Lau MD Primary Care Provider [phone] Encounter Details Date Type Department Care Team (Late st Contact Info) Description 06/25/[address] [facility] Pathology & Laboratory Medicine - [address] [address] Outr Resulting Lab, Provider Social History Tobacco [...] GENER AL ORDERABLES Final Result [facility] [address] [place] [address] * COVID-19 TESTING (06/25/2021 10:50 EST) COVID-19 rt-PCR Result Negative Negative 06/26/2021 11:40 EST [facility] Comment: This test has not [...] history, and epidemiological information. Performed on the [email or web address] Fusion instrument Performing Lab [facility] 06/26/2021 11:40 EST [facility] Swab 06/25/2021 10:5 0 EST 06/25/2021 22:26 EST us Provider Outr Resulting Lab MICROBIOLOGY - GENER AL ORDERABLES Final Result [facility] [address] [place] [address] documented in this encounter Visit Diagnoses Not on filedocumented in this encounter Care Teams Bracelet Former Relationship Specialty Start Date End Date Dimas Lau MD [address] [place], [place] [id number] PCP - General 06/18/15 documented as of this encounter
--- OUTSIDE RECORDS SUMMARY | 2024-08-10 16:20 | XMS_ITS | Clinical Summary ---
Author Organization [facility] Address [address] [place] [address] Care Team Providers Care Route Sales Manager Name Role Phone Dimas Lau MD Primary Care Provider [phone] Social History Tobacco Use Types Packs/Day Years [...] COVID-19 Vaccine ( season) 2024 Care Teams Route Sales Manager Relationship Specialty Start Date End Date Dimas Lau MD [address] [place] [address] PCP - General 06/18/15
--- OUTSIDE RECORDS SUMMARY | 2024-08-10 16:20 | XMS_ITS | Encounter Summary ---
Author Organization [facility] Address [address] [place] [address] Care Team Providers Care Lean Six Sigma Senior Specialist Name Role Phone Unavailable Primary Care Provider Unavailabl e Encounter Details Date Type Department Care Team (Latest Contact Info) Description 06/02/2001 9:29 EDT - 06/02/2001 11:59 EDT Hospital Encounter [address] [address] [place], [address] [place] [address] Discharge Disposition: Auto Discharge Social History Tobacco [...]
--- OUTSIDE RECORDS SUMMARY | 2024-08-10 16:20 | XMS_ITS | Referral Summary ---
Author Organization [facility] Address [address] [place] [address] Care Team Providers Care Clinique Counter Manager Name Role Phone Dimas Lau MD Primary Care Provider [phone] Social History Tobacco Use Types Packs/Day Years Used Date Smoking Tobacco: Never Assessed Sex and Gender Information Value Date Recorded Sex Assigned at Not on file Legal Sex Male 18:14 EST Gender Identity Not on file Sexual Orientation Not on file Plan of Treatment Not on file Care Teams Clinique Counter Manager Relationship Specialty Start Date End Date Dimas Lau MD [address] [place] [address] PCP - General 06/18/15
[2024-08-10 17:02] LABS: BE (Venous) 3 mmol/L (-2-3); HCO3 (Venous) 28 mmol/L (23-28); O2 Sat (Venous) 70 %; TCO2 (Venous) 25 mmol/L (24-29); pCO2 (Venous) 48 mmHg (41-51); pH (Venous) 7.38 (7.31-7.41); pO2 (Venous) 39 mmHg
[2024-08-10 17:04] LABS: Lactate 2.4 mmol/L (0.6-1.4)
[2024-08-10 17:05] LABS: HCT 43.2 % (40.0-50.0); HGB 14.2 g/dL (13.5-17.5); MCH 28.8 pg (27.0-33.0); MCHC 32.9 % (32.0-36.0); MCV 88 fL (80-95); MPV 11.2 fL (8.0-11.0); Platelet Count 170 10^3/uL (130-400); RBC 4.93 10^6/uL (4.36-5.78); RDW 13.5 % (11.8-14.1); RDW-SD 43.5 fL; WBC 19.52 10^3/uL (4.4-10.8)
[2024-08-10 17:21] LABS: Absolute Neutrophil Count 18.15 10^3/uL (1.2-6.7); Bands % 1 %
[2024-08-10 17:22] LABS: Absolute Monocyte Count 1.17 10^3/uL (0.1-0.8)
[2024-08-10 17:23] LABS: Diff Comment Manual Differential; RBC Morphology Normal
[2024-08-10 17:24] LABS: ALT 19 U/L (16-63); AST 13 U/L (15-37); Albumin 3.1 g/dL (3.4-5.0); Alkaline Phosphatase 113 U/L (46-116); Anion Gap 8.2 mmol/L (3-11); BUN 15 mg/dL (7-18); Bilirubin, Total 0.54 mg/dL (0.2-1.0); CO2 28.8 mmol/L (21.0-32.0); CREATININE 1.3 mg/dL (0.70-1.30); Calcium 8.6 mg/dL (8.5-10.1); Chloride 101 mmol/L (98-107); Estimated GFR 63.28 (mL/min/1.73m2); Glucose 127 mg/dL (74-106); Magnesium 1.2 mg/dL (1.8-2.4); Potassium 3.8 mmol/L (3.5-5.1); Sodium 138 mmol/L (136-145); Total Protein 6.9 g/dL (6.4-8.2); Troponin I 14 ng/L (<or=76)
[2024-08-10 17:26] LABS: COVID-19 PCR Negative (Negative); Influenza A PCR Negative (Negative); Influenza B PCR Negative (Negative); RSV PCR Negative (Negative)
[2024-08-10 17:29] LABS: Source Nasopharynx
[2024-08-10] MEDS: Prochlorperazine 10 MG/2 ML VIAL 5 MG IVP (17:33)
[2024-08-10] MEDS: PIPERACILLIN/TAZO 3.375 GM in Normal Saline 50 ML IVPB (17:33)
[2024-08-10] MEDS: ACETAMINOPHEN 500 MG/50 ML BAG 200 MG IVPB (17:34)
[2024-08-10 17:37] LABS: Procalcitonin 3.57 ng/mL
[2024-08-10 17:41] LABS: Bilirubin Negative (Negative); Blood Moderate (Negative); Clarity Cloudy (Clear); Glucose Negative (Negative); Ketones 15 mg/dL (Negative); Leukocyte Esterase Moderate (Negative); Nitrite Positive (Negative); Specific Gravity 1.025 (1.005-1.025); Urobilinogen 0.2 mg/dL (Up to 0.2)
[2024-08-10 17:43] LABS: C & S Indicated? Yes
[2024-08-10 17:47] LABS: WBC >50 HPF (0-5)
[2024-08-10] MEDS: methylPREDNISolone SUCC 125 MG VIAL IVP (17:50)
[2024-08-10] MEDS: cefTRIAXone 2 GM/50 ML BAG IVPB (18:17)
[2024-08-10] MEDS: DOXYCYCLINE 100 MG in Normal Saline 100 ML IVPB (18:17)
[2024-08-10 18:21] LABS: Troponin I 12 ng/L (<or=76)
[2024-08-10] MEDS: MAGNESIUM SULFATE 1 GM/100 ML BAG IV_INF (18:22)
--- NOTE | 2024-08-10 18:45 | DI.RAD_ITS ---
Exam(s) XR PORTABLE CHEST AP EXAM: XR PORTABLE CHEST AP CLINICAL HISTORY: sob. TECHNIQUE: 2D digital imaging was performed. COMPARISON: CR,XR XR PORTABLE CHEST AP from 04/26/[address] ABDOMEN PELVIS W from 05/04/2019 FINDINGS: Single AP portable view. Ventriculoperitoneal shunt is again noted. Right hemidiaphragm is elevated by air-filled colon loop interposed between the liver and the hemidiaphragm. Heart size is upper normal. The mediastinum is not widened. There are increased markings in the left lower lobe retrocardiac region but this appears unchanged fr om 2019. There is also some infiltrate in the right lower lobe medial aspect which may be infiltrate in the posterior basal segment of the right lower lobe. An no obvious pleural effusions.. IMPRESSION: Mild right lower lobe infiltrate in the posterior basal segment of the right lower lobe. No obvious pleural effusions on the single AP view. Heart size normal. Ventriculoperitoneal shunt noted. DATA REPOSITORY: RADIATION DOSE DELIVERED:
--- NOTE | 2024-08-10 19:24 | DI.VRAD_ITS ---
PROCEDURE INFORMATION: Exam: XR Chest Exam date and time: 08/10/2024 7:05 PM Age: 58 years old Clinical indication: Shortness of breath; Additional info: SOB TECHNIQUE: Imaging protocol: Radiologic exam of the chest. Views: 1 view. COMPARISON: CR XR CHEST 2V PA LATERAL 05/01/2019 1:20 PM FINDINGS: Lungs: Crowding of lung markings, likely secondary to low lung volumes. Pleural spaces: No pleural effusion. No pneumothorax. Heart/Mediastinum: Cardiac and mediastinal silhouettes are unremarkable. Diaphragm: Chronic mild elevation of the right hemidiaphragm. Bones/joints: No acute osseus lesion or fracture. Gastrointestinal tract: Diffuse gaseous distension of partially visualized bowel loops. IMPRESSION: Diffuse gaseous distension of partially visualized bowel loops. Recommend follow-up CT abdomen pelvis. Dictated and Authenticated by: Deshawn Valdes MD. Ordering:ADA Medellin MD
[2024-08-10] MEDS: Normal Saline 1,000 ML 250 ML IV (20:17)
--- NOTE | 2024-08-10 20:46 | W.ED.GENAD ---
Discharge Plan Disposition Patient Disposition: Admit to [facility] Condition: Critical Discharge Details Clinical Impression: Complicated UTI (urinary tract infection), Sepsis, Community acquired pneumonia Primary Care Provider: Freida Starks ED Provider: Lacie Kang Home Meds and New Rx's Prescriptions: No Action multivitamin Tablet 1 tab PO DAILY loratadine 10 mg tablet 10 mg PO DAILY clotrimazole 1 % cream 1 applic topical TID PRN PRN (Reason: rash) Qty: 60 0RF potassium citrate 10 mEq (1,080 mg) tablet extended release 10 meq PO BID Qty: 180 3RF sertraline 25 mg tablet 25 mg PO DAILY ketoconazole 2 % cream 1 applic topical DAILY Qty: 120 6RF Rx Instructions: Apply to toenails once daily polyethylene glycol 3350 [GlycoLax] 527 GM powder 17 g PO DAILY sertraline 50 mg tablet 50 mg PO DAILY Patient Comments: TAKE ONE TABLET BY MOUTH EVERY DAY bisacodyl [Dulcolax (bisacodyl)] 10 mg Suppository 10 mg MO DAILY lorazepam 1 mg Tablet 1 mg PO TID PRN cholecalciferol (vitamin D3) [Vitamin D3] 1,000 unit Capsule 1 unit PO DAILY HPI General Date/Time Provider Initiated Documentation: 08/10/24 16:01. HPI Narrative: This chronically ill 58-year-old male with indwelling Li catheter, VALUE ADVISOR shunt, neurofibromatosis, meningioma, and craniotomy presents with report of fever and vomiting. Patient has been more tired today per family. States patient has had similar presentations in the past with urinary tract infections. Symptoms reportedly started last evening. Patient is reportedly nonverbal and cannot give history. History was obtained from patient's caregiver who lives the patient 24 hours a day. There has been no trauma or injuries. The Li catheter was changed 3 weeks ago. Patient has not reportedly had any respiratory symptoms. There has been no blood in vomitus. Tmax of 102 today. Patient has been bedbound secondary to fracture of his lower extremity which has been in a cast per family. Related Data Home Medications ?Medication ?Instructions ?Recorded ?Confirmed polyethylene glycol 3350 17 17 g PO DAILY 08/25/15 08/10/24 gram/dose oral powder (GlycoLax) bisacodyl 10 mg rectal suppository 10 mg MO DAILY 04/26/19 08/10/24 (Dulcolax (bisacodyl)) cholecalciferol (vitamin D3) 25 1 unit PO DAILY 04/26/19 08/10/24 mcg (1,000 unit) capsule (Vitamin D3) lorazepam 1 mg tablet 1 mg PO TID PRN 04/26/19 08/10/24 clotrimazole 1 % topical cream 1 applic topical TID PRN PRN rash 04/27/21 08/10/24 #60 grams multivitamin 1 tab PO DAILY 04/06/22 08/10/24 sertraline 25 mg tablet 25 mg PO DAILY 12/30/23 08/10/24 ketoconazole 2 % topical cream 1 applic topical DAILY #120 grams 02/22/24 08/10/24 potassium citrate 10 mEq (1,080 10 meq PO BID #180 tabs 03/20/24 08/10/24 mg) tablet,extended release sertraline 50 mg tablet 50 mg PO DAILY 05/21/24 08/10/24 loratadine 10 mg tablet 10 mg PO DAILY 06/01/24 08/10/24 Previous Rx's ?Medication ?Instructions ?Recorded clotrimazole 1 % topical cream 1 applic topical TID PRN PRN rash 04/27/21 #60 grams ketoconazole 2 % topical cream 1 applic topical DAILY #120 grams 02/22/24 potassium citrate 10 mEq (1,080 10 meq PO BID #180 tabs 03/20/24 mg) tablet,extended release Allergies Allergy/AdvReac Type Severity Reaction Status Date / Time carbamazepine (From Tegretol) Allergy Unknown Unknown Verified 08/10/24 16:28 gabapentin (From Neurontin) Allergy Unknown Unknown Verified 08/10/24 16:28 risperidone (From Risperdal) Allergy Unknown Unknown Verified 08/10/24 16:28 Sulfa (Sulfonamide AdvReac Mild Per pt. Verified 08/10/24 16:28 Antibiotics) mother causes stomach ache haldol AdvReac Unknown Other (See Uncoded 08/10/24 16:28 Comment) General Stated Complaint: Fever SCHUYLER: 3 Exam Narrative Exam Narrative: Alert and chronically ill and acutely ill-appearing 58-year-old male presenting pupils equal round reactive to light and accommodation, moist mucous membranes, uvula midline, oropharynx patent, scant drool, unchanged from baseline, lungs with crackles at base of right lung, no respiratory distress, mild abdominal tenderness with distention, scant petechial rash on dorsum of right hand, alert and reportedly at baseline, left lower extremity with distal pulses and sensation intact, cast in place no evidence of infection on the posterior calf, no lesions on left lower extremity, no meningismus moving neck freely, diaphoretic, pale Course Vital Signs Vital signs: Vital Signs Temperature 39.3 C H 08/10/24 16:18 Pulse 85 08/10/24 16:18 Respiratory Rate 20 08/10/24 16:18 Blood Pressure 101/53 L 08/10/24 16:18 Pulse Oximetry 94 08/10/24 16:18 Temperature 37.8 C H 08/10/24 17:36 Pulse 68 08/10/24 20:15 Pulse 74 08/10/24 20:15 Respiratory Rate 13 08/10/24 20:15 Blood Pressure 86/49 L 08/10/24 20:15 Blood Pressure Mean 60 08/10/24 20:15 Blood Pressure Position Supine 08/10/24 17:36 Pulse Oximetry 98 08/10/24 19:51 Oxygen Delivery Method Nasal Cannula 08/10/24 17:36 Oxygen Flow Rate 2 08/10/24 17:36 Lab/Test Results Lab/Test Results: 08/10/24 17:04 Urine - Reflex from Ua Urine Culture - Pending 08/10/24 16:48 Blood Blood Culture - Pending 08/10/24 16:48 Blood Blood Culture - Pending Laboratory Tests Range/Units 08/10/24 08/10/24 08/10/24 16:38 16:48 17:04 WBC (4.4-10.8) 10^3/uL 19.52 H RBC (4.36-5.78) 10^6/uL 4.93 Hgb (13.5-17.5) g/dL 14.2 Hct (40.0-50.0) % 43.2 MCV (80-95) fL 88 MCH (27.0-33.0) pg 28.8 MCHC (32.0-36.0) % 32.9 RDW (11.8-14.1) % 13.5 Plt Count (130-400) 10^3/uL 170 MPV (8.0-11.0) fL 11.2 H Immature Gran % % 0.0 Neutrophils % % 92.0 Band Neutrophils % % 1 Lymphocytes % % 1.0 Monocytes % % 6.0 Eosinophils % % 0.0 Basophils % % 0.0 Nucleated RBC % (0.0-0.3) % 0.0 Absolute Neutrophils (1.2-6.7) 10^3/uL 18.15 H Absolute Lymphocytes (1.2-3.4) 10^3/uL 0.20 L Absolute Monocytes (0.1-0.8) 10^3/uL 1.17 H Absolute Eosinophils (0.0-0.7) 10^3/uL 0.00 Absolute Basophils (0.0-0.2) 10^3/uL 0.00 RBC Morphology Normal VBG pH (7.31-7.41) 7.38 VBG pCO2 (41-51) mmHg 48 VBG pO2 mmHg 39 VBG HCO3 (23-28) mmol/L 28 VBG Total CO2 (24-29) mmol/L 25 VBG O2 Saturation % 70 VBG Base Excess (-2-3) mmol/L 3 VBG Lactate (0.6-1.4) mmol/L 2.4 H* Sodium (136-145) mmol/L 138 Potassium (3.5-5.1) mmol/L 3.8 Chloride (98-107) mmol/L 101 Carbon Dioxide (21.0-32.0) mmol/L 28.8 Anion Gap (3-11) mmol/L 8.2 BUN (7-18) mg/dL 15 Creatinine (0.70-1.30) mg/dL 1.3 Est GFR (CKD-EPI 2020) (mL/min/1.73m2) 63.28 Glucose (74-106) mg/dL 127 H Calcium (8.5-10.1) mg/dL 8.6 Magnesium (1.8-2.4) mg/dL 1.2 L Total Bilirubin (0.2-1.0) mg/dL 0.54 AST (15-37) U/L 13 L ALT (16-63) U/L 19 Alkaline Phosphatase (46-116) U/L 113 Troponin I (<or=76) ng/L 14 Total Protein (6.4-8.2) g/dL 6.9 Albumin (3.4-5.0) g/dL 3.1 L Procalcitonin ng/mL 3.57 Urine Color (Yellow) Yellow Urine Clarity (Clear) Cloudy Urine pH (5-8) 7.0 Ur Specific Gurley (1.005-1.025) 1.025 Urine Protein (Neg-Trace) mg/dL >=300 H Urine Ketones (Negative) mg/dL 15 H Urine Blood (Negative) Moderate H Urine Nitrite (Negative) Positive H Urine Bilirubin (Negative) Negative Urine Urobilinogen (Up to 0.2) mg/dL 0.2 Ur Leukocyte Esterase (Negative) Moderate H Urine RBC TNP Urine WBC (0-5) HPF >50 H Ur Epithelial Cells TNP Urine Crystals TNP Urine Bacteria TNP Urine Casts TNP Urine Mucus TNP Ur Culture Indicated? Yes Urine Glucose (Negative) mg/dL Negative COVID-19 Source Nasopharynx SARS-CoV-2 (PCR) (Negative) Negative Influenza Type A (PCR) (Negative) Negative Influenza Type B (PCR) (Negative) Negative RSV (PCR) (Negative) Negative Range/Units 08/10/24 17:53 WBC (4.4-10.8) 10^3/uL RBC (4.36-5.78) 10^6/uL Hgb (13.5-17.5) g/dL Hct (40.0-50.0) % MCV (80-95) fL MCH (27.0-33.0) pg MCHC (32.0-36.0) % RDW (11.8-14.1) % Plt Count (130-400) 10^3/uL MPV (8.0-11.0) fL Immature Gran % % Neutrophils % % Band Neutrophils % % Lymphocytes % % Monocytes % % Eosinophils % % Basophils % % Nucleated RBC % (0.0-0.3) % Absolute Neutrophils (1.2-6.7) 10^3/uL Absolute Lymphocytes (1.2-3.4) 10^3/uL Absolute Monocytes (0.1-0.8) 10^3/uL Absolute Eosinophils (0.0-0.7) 10^3/uL Absolute Basophils (0.0-0.2) 10^3/uL RBC Morphology VBG pH (7.31-7.41) VBG pCO2 (41-51) mmHg VBG pO2 mmHg VBG HCO3 (23-28) mmol/L VBG Total CO2 (24-29) mmol/L VBG O2 Saturation % VBG Base Excess (-2-3) mmol/L VBG Lactate (0.6-1.4) mmol/L Sodium (136-145) mmol/L Potassium (3.5-5.1) mmol/L Chloride (98-107) mmol/L Carbon Dioxide (21.0-32.0) mmol/L Anion Gap (3-11) mmol/L BUN (7-18) mg/dL Creatinine (0.70-1.30) mg/dL Est GFR (CKD-EPI 2020) (mL/min/1.73m2) Glucose (74-106) mg/dL Calcium (8.5-10.1) mg/dL Magnesium (1.8-2.4) mg/dL Total Bilirubin (0.2-1.0) mg/dL AST (15-37) U/L ALT (16-63) U/L Alkaline Phosphatase (46-116) U/L Troponin I (<or=76) ng/L 12 Total Protein (6.4-8.2) g/dL Albumin (3.4-5.0) g/dL Procalcitonin ng/mL Urine Color (Yellow) Urine Clarity (Clear) Urine pH (5-8) Ur Specific Gurley (1.005-1.025) Urine Protein (Neg-Trace) mg/dL Urine Ketones (Negative) mg/dL Urine Blood (Negative) Urine Nitrite (Negative) Urine Bilirubin (Negative) Urine Urobilinogen (Up to 0.2) mg/dL Ur Leukocyte Esterase (Negative) Urine RBC Urine WBC (0-5) HPF Ur Epithelial Cells Urine Crystals Urine Bacteria Urine Casts Urine Mucus Ur Culture Indicated? Urine Glucose (Negative) mg/dL COVID-19 Source SARS-CoV-2 (PCR) (Negative) Influenza Type A (PCR) (Negative) Influenza Type B (PCR) (Negative) RSV (PCR) (Negative) Medical Decision Making 58-year-old male with complex medical history presenting acutely septic and very ill, labile blood pressure and intermittently hypotensive with likely urinary tract infection with infected urine, Li catheter was changed in the emergency department chest x-ray was ordered after an extended period of time as family initially was trying to decide how much of an assessment they wanted to have performed on the patient. Tarah patient's DPOA and sister would like minimal diagnostic evaluation at this time as she feels as though this will make her brother uncomfortable and she would like to keep him as comfortable as possible. Father of patient was also in room and he would like patient to have a chest x-ray blood work and is amenable to IV antibiotics, steroids and fluids, however he does not want CT scans of patient's head chest abdomen or pelvis which were initially recommended for complete this. They absolutely decline pressors and they are aware that patient is hypotensive and can succumb to this illness and I did recommend this to be initiated secondary to labile blood pressure. Tarah and patient's father are both alert and oriented and of decisional capacity and are advocating for the best interest of this patient. At this time we will continue with the measures requested. Chest x-ray I believe shows evidence of a right lower lobe infiltrate and there is some gaseous distention which was discussed with KAMERON Rascon and she declines CT imaging again. Patient is to remain DNR/DNI, no pressors or diagnostic imaging, fluids, IV antibiotics, and continued assessment is this the treatment family would like at this time. Blood pressure has improved and is now 97/58. Antibiotics that were initiated resistant initially but then I added on ceftriaxone and doxycycline to cover atypicals and broad-spectrum. This will also treat urinary tract infection, patient does typically grow Proteus from what I reviewed in his chart. Case discussed and patient accepted by Dr. Parrish Quality:SDOH Health Related Social Needs: Health related social needs details Has two private caregivers with him Critical Care Time Critical Care Time Attestation: 60 minutes of critical care time secondary to extensive family involvement and discussion, diagnostic interpretation and review, blood pressure management with IV fluids IV antibiotics, telemetry monitoring, EKG assessment [facility] All Active Problems (Updated 08/10/24 @ 20:58 by EWA Hay) Closed nondisplaced bimalleolar fracture of right ankle (Acute) Closed pilon fracture of right tibia (Acute) Edema (Acute) Atherosclerosis of artery of both lower extremities (Acute) Onychogryphosis (Acute) Nail dystrophy (Acute) Onychomycosis (Acute) Neurogenic bladder (Acute) Sepsis (Acute) Complicated UTI (urinary tract infection) (Acute) Community acquired pneumonia (Acute) DVT prophylaxis (Acute) Urinary catheter insertion/adjustment/removal (Acute) Diarrhea (Acute) Neurogenic bladder (Acute) Discharge planning issues (Acute) Bacteremia (Acute) Medical History Acute UTI Urethral stricture Wheelchair dependent 2 assist Developmental non-verbal disorder Urinary retention Meningioma Neurofibromatosis 2 Surgical History S/P craniotomy S/P VALUE ADVISOR shunt Social History Smoking/Tobacco Use Status: Never Smoking risk assessment performed?: Yes Alcohol Intake: never Drug use: Never Substance use type: does not use Caregiver/Support person: Yes (parents are primary caretakers) Household members: family Housing: house Do you feel safe at home: Yes Do you feel safe in your relationship?: Yes Additional Social history: not able to assess privately
[2024-08-10 21:03] LABS: Troponin I 12 ng/L (<or=76)
--- NOTE | 2024-08-10 21:42 | HPE_ITS ---
Date of service: 08/10/24 Time of Service: 21:22 Assessment and Plan Assessment and plan (1) Septic shock: Status: Acute Assessment and plan: Meets sepsis criteria with fever, elevated WBC, low blood pressure in setting of infection. UTI appears to be the source, also possible aspriation, although he is also at risk for BAND TIER infection with his shunt. He has received 2 liters of NS per ED clinician and is on 250ml/hr and MAP still <65mmHg. His sister/guardian is very clear that she does not want aggressive care including pressors or additional more aggressive diagnostic evaluations including CT C/A/P or LP. Given this, will continue fluids and antibiotics, admit to ICU, but no pressors unless they change their mind. (2) Complicated UTI (urinary tract infection): Status: Acute Assessment and plan: As above likely source. Previous cultures reviewed. He got ceftriaxone in the ED, but I am using pip/tazo to cover all recent cultures including pseudomonas and resistant Klebsiella. (3) Hypoxic respiratory failure: Status: Acute Assessment and plan: As above could simply be sepsis related but also has history of aspiration and poor quality XR makes it hard to rule this out. Doxycycline added to pip/tazo in the ED, will continue this. I don't think MRSA coverage is indicated. Treat aspiraiton, monitor, O2 prn and nebs for now as these have helped after aspiration in the past. (4) Neurogenic bladder: Status: Acute Assessment and plan: Chronic. Lyles changed in the ED per report. (5) Gaseous distention of intestine determined by X-ray: Status: Acute Assessment and plan: In setting of sepsis we would typically want CT, but declined by guardian. He is not obstructed clinically, not clearly in pain on exam. Monitor clinically (6) Closed nondisplaced bimalleolar fracture of right ankle: Status: Acute Assessment and plan: This happened over a month ago and cast due for removal. Will ask ortho to come by once is is medically stable. (7) Goals of care, counseling/discussion: Status: Acute Assessment and plan: Sister/guardian is very clear and consistent with ED providers and me about limited aggressive care. She understands we would typically use pressors and more diagnostic evaluation. Will consult palliative care given these goals of care to provide any additional resources to keep him comfortable while dealing with complex medical conditions. History of Present Illness History of Present Illness Chief Complaint: fever, vomiting Narrative: 58 yo M who is non-verbal with history of intellectual disability a/w chromosomal abnormality, neurofibromatosis 2, neurogenic bladder, and history of aspiration who presented to the emergency room with fever and vomiting. He was in his normal state of health this morning, ate a good breakfast. At lunch time he was having a turkey and mashed potatoes and he started to vomit. He did not seem to have trouble swallowing or choke on his food. He had a reported low grade fever then, though the number was not reported (he was with his home health aid. His primary caregiver Massimo got home at 3:15pm and noted he looked pale. She checked his tempurature and it was 102.8. He did look like he was working a little hard to breath, but his O2 sat on a home monitor was 93%. She gave him some iburprofen for the fever but he vomited after taking that. At that point they called EMS to take him to the hospital. He had a large BM this morning and another smaller one before the vomiting started. No blood or diarrhea. He had his lyles changed by home health 2 weeks ago. His urine was more cloudy yesterday but cleared up after increased fluids yesterday. The last aspiration was months ago, and he does follow aspiration precautions with thickened liquids. He has to be fed with a spoon. No recent antibiotics. No recent medication change. Of note he has several positive urine cultures over the past 2-3 years. Last was 05/21 and was sensitive Proteus. However others include Klebsiella resistant to ceftriaxone and several other antibiotics but sensitive to pip/tazo. Also pseudomonas. Review of Systems Unobtainable due to mental condition (limited to report from caregivers ) Respiratory Comments: per caregivers he did not have cough or URI symptoms. Integumentary/Breasts Skin/Breast: Denies rash, Denies skin ulcer and Reports sores (minor pressure sore right 3rd toe. Left mota from rubbing healed) [facility] All Active Problems (Updated 08/10/24 @ 23:29 by Kishor Trujillo) Gaseous distention of intestine determined by X-ray (Acute) Hypoxic respiratory failure (Acute) Goals of care, counseling/discussion (Acute) Septic shock (Acute) Closed nondisplaced bimalleolar fracture of right ankle (Acute) Closed pilon fracture of right tibia (Acute) Edema (Acute) Atherosclerosis of artery of both lower extremities (Acute) Onychogryphosis (Acute) Nail dystrophy (Acute) Onychomycosis (Acute) Neurogenic bladder (Acute) Bacteremia (Acute) Discharge planning issues (Acute) Neurogenic bladder (Acute) Diarrhea (Acute) Urinary catheter insertion/adjustment/removal (Acute) DVT prophylaxis (Acute) Community acquired pneumonia (Acute) Complicated UTI (urinary tract infection) (Acute) Sepsis (Acute) Medical History (Updated 08/10/24 @ 23:29 by Kishor Trujillo) 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) Acute UTI Urethral stricture Wheelchair dependent 2 assist Developmental non-verbal disorder Urinary retention Meningioma Neurofibromatosis 2 Surgical History S/P craniotomy S/P DENTAL ASSISTING INSTRUCTOR shunt Social History (Updated 08/10/24 @ 23:27 by Kishor Trujillo) Smoking/Tobacco Use Status: Never Smoking risk assessment performed?: Yes Alcohol Intake: never Drug use: Never Substance use type: does not use Caregiver/Support person: Yes (parents are primary caretakers) Household members: family Housing: house Do you feel safe at home: Yes Do you feel safe in your relationship?: Yes Additional Social history: sister Tarah is guardian. He lives with Lana and her (in home care) and has other aids to help Meds Allergies and Home Medications Allergies Allergy/AdvReac Type Severity Reaction Status Date / Time carbamazepine (From Tegretol) Allergy Unknown Unknown Verified 08/10/24 16:28 gabapentin (From Neurontin) Allergy Unknown Unknown Verified 08/10/24 16:28 risperidone (From Risperdal) Allergy Unknown Unknown Verified 08/10/24 16:28 Sulfa (Sulfonamide AdvReac Mild Per pt. Verified 08/10/24 16:28 Antibiotics) mother causes stomach ache haldol AdvReac Unknown Other (See Uncoded 08/10/24 16:28 Comment) Home Medications ?Medication ?Instructions ?Recorded ?Confirmed ?Type polyethylene glycol 3350 17 17 g PO DAILY 08/25/15 08/10/24 History gram/dose oral powder (GlycoLax) bisacodyl 10 mg rectal suppository 10 mg NE DAILY 04/26/19 08/10/24 History (Dulcolax (bisacodyl)) cholecalciferol (vitamin D3) 25 1 unit PO DAILY 04/26/19 08/10/24 History mcg (1,000 unit) capsule (Vitamin D3) lorazepam 1 mg tablet 1 mg PO TID PRN 04/26/19 08/10/24 History clotrimazole 1 % topical cream 1 applic topical TID PRN PRN rash 04/27/21 08/10/24 Rx #60 grams multivitamin 1 tab PO DAILY 04/06/22 08/10/24 History sertraline 25 mg tablet 25 mg PO DAILY 12/30/23 08/10/24 History ketoconazole 2 % topical cream 1 applic topical DAILY #120 grams 02/22/24 08/10/24 Rx potassium citrate 10 mEq (1,080 10 meq PO BID #180 tabs 03/20/24 08/10/24 Rx mg) tablet,extended release sertraline 50 mg tablet 50 mg PO DAILY 05/21/24 08/10/24 History loratadine 10 mg tablet 10 mg PO DAILY 06/01/24 08/10/24 History Exam Narrative Exam Narrative: GEN: Alert, initially holds eyes closed but more alert later in exam, non- verbal, doesn't follow commands but responds to touch. No acute distress at rest. HEENT: Head atraumatic. Conjunctiva clear, no icterus. PEERL, EOMI. no rhinorrhea. MMM, OP benign. Neck is supple with no masses or lymphadenopathy, no JVP elevation, trachea midline LUNGS: CTAB other that slight rale right base, normal effort, NC in place. CV: RRR with no murmurs, gallops, or rubs. ABD: active bowel sounds, soft, nontender to deep palpation, moderate soft distension, no fluid wave noted. No masses. EXT: no cyanosis, clubbing, or edema. toes warm. MSK: No joint redness or swelling, RLE in cast below knee. NEURO: CN 2-12 grossly intact. Normal movement of 4 extremities. Normal speech and coordination. No tremor SKIN: No rashes. No open wounds, but red spot with slight scab left 3rd toe PIP (over hammer toe), red patch left mota (healed friction sore per caregiver). PSYCH: non-verbal, mimally interactive Results Imaging Chest x-ray: report reviewed (Diffuse gaseous distension of partially visualized bowel loops. Recommend follow-up CT abdomen pelvis. ) and image reviewed EKG: report reviewed and image reviewed (NSR, left axis, no ST-T changes) Labs 08/10/24 16:48 08/10/24 16:48 Labs: Laboratory Results - last 24 hr 08/10/24 08/10/24 08/10/24 16:38 16:48 17:04 WBC 19.52 H RBC 4.93 Hgb 14.2 Hct 43.2 MCV 88 MCH 28.8 MCHC 32.9 RDW 13.5 Plt Count 170 MPV 11.2 H Immature Gran % 0.0 Neutrophils % 92.0 Band Neutrophils % 1 Lymphocytes % 1.0 Monocytes % 6.0 Eosinophils % 0.0 Basophils % 0.0 Nucleated RBC % 0.0 Absolute Neutrophils 18.15 H Absolute Lymphocytes 0.20 L Absolute Monocytes 1.17 H Absolute Eosinophils 0.00 Absolute Basophils 0.00 RBC Morphology Normal VBG pH 7.38 VBG pCO2 48 VBG pO2 39 VBG HCO3 28 VBG Total CO2 25 VBG O2 Saturation 70 VBG Base Excess 3 VBG Lactate 2.4 H* Sodium 138 Potassium 3.8 Chloride 101 Carbon Dioxide 28.8 Anion Gap 8.2 BUN 15 Creatinine 1.3 Est GFR (CKD-EPI 2020) 63.28 Glucose 127 H Calcium 8.6 Magnesium 1.2 L Total Bilirubin 0.54 AST 13 L ALT 19 Alkaline Phosphatase 113 Troponin I 14 Total Protein 6.9 Albumin 3.1 L Procalcitonin 3.57 Urine Color Yellow Urine Clarity Cloudy Urine pH 7.0 Ur Specific [place] 1.025 Urine Protein >=300 H Urine Ketones 15 H Urine Blood Moderate H Urine Nitrite Positive H Urine Bilirubin Negative Urine Urobilinogen 0.2 Ur Leukocyte Esterase Moderate H Urine RBC TNP Urine WBC >50 H Ur Epithelial Cells TNP Urine Crystals TNP Urine Bacteria TNP Urine Casts TNP Urine Mucus TNP Ur Culture Indicated? Yes Urine Glucose Negative COVID-19 Source Nasopharynx SARS-CoV-2 (PCR) Negative Influenza Type A (PCR) Negative Influenza Type B (PCR) Negative RSV (PCR) Negative 08/10/24 08/10/24 17:53 20:35 WBC RBC Hgb Hct MCV MCH MCHC RDW Plt Count MPV Immature Gran % Neutrophils % Band Neutrophils % Lymphocytes % Monocytes % Eosinophils % Basophils % Nucleated RBC % Absolute Neutrophils Absolute Lymphocytes Absolute Monocytes Absolute Eosinophils Absolute Basophils RBC Morphology VBG pH VBG pCO2 VBG pO2 VBG HCO3 VBG Total CO2 VBG O2 Saturation VBG Base Excess VBG Lactate Sodium Potassium Chloride Carbon Dioxide Anion Gap BUN Creatinine Est GFR (CKD-EPI 2020) Glucose Calcium Magnesium Total Bilirubin AST ALT Alkaline Phosphatase Troponin I 12 12 Total Protein Albumin Procalcitonin Urine Color Urine Clarity Urine pH Ur Specific [place] Urine Protein Urine Ketones Urine Blood Urine Nitrite Urine Bilirubin Urine Urobilinogen Ur Leukocyte Esterase Urine RBC Urine WBC Ur Epithelial Cells Urine Crystals Urine Bacteria Urine Casts Urine Mucus Ur Culture Indicated? Urine Glucose COVID-19 Source SARS-CoV-2 (PCR) Influenza Type A (PCR) Influenza Type B (PCR) RSV (PCR) Last Vital Signs Temp 37.8 C H 08/10/24 17:36 Pulse 61 08/10/24 21:16 Resp 13 08/10/24 21:20 BP 85/47 L 08/10/24 21:16 Pulse Ox 97 08/10/24 21:20 Time Spent Time spent with Patient: >75 minutes Time was spent: preparing to see the patient(eg.review tests), obtaining and/or reviewing separately otained hiistory, ordering medications,tests, procedures, referring, communicating with other health acute care physical therapist, indepentently interpreting results, counseling the patient and care coordination
[2024-08-10 21:53] LABS: Lactate 1.1 mmol/L (0.6-1.4)
--- NOTE | 2024-08-10 22:07 | W.PC.ACHO ---
Registration Status: Primary Language: Preferred Language: ED Information & Data Chief Complaint Fever 08/10/24 20:53 Triage Note non verbal and hxo 08/10/24 16:18 aspiration presents with fever 102.8 at home and new oxygen requirement. pt is nonverbal and lives with caregivers. Medical / Surgical History (Last Reviewed 06/26/24 @ 16:13 by Vane Lehman DPM) Acute UTI Urethral stricture Wheelchair dependent Developmental non-verbal disorder Urinary retention Meningioma Neurofibromatosis 2 (Last Reviewed 06/26/24 @ 16:13 by Vane Lehman DPM) S/P craniotomy S/P CASHIER CHECKER shunt Most Recent Vital Signs Temperature 37.8 C H 08/10/24 17:36 Pulse 61 08/10/24 21:16 Pulse 63 08/10/24 21:20 Respiratory Rate 13 08/10/24 21:20 Blood Pressure 85/47 L 08/10/24 21:16 Blood Pressure Mean 59 08/10/24 21:16 Blood Pressure Position Supine 08/10/24 17:36 Pulse Oximetry 97 08/10/24 21:20 Oxygen Delivery Method Nasal Cannula 08/10/24 17:36 Oxygen Flow Rate 2 08/10/24 17:36 Allergies carbamazepine (From Tegretol) Allergy (Unknown, Verified 08/10/24 16:28) Unknown gabapentin (From Neurontin) Allergy (Unknown, Verified 08/10/24 16:28) Unknown risperidone (From Risperdal) Allergy (Unknown, Verified 08/10/24 16:28) Unknown Sulfa (Sulfonamide Antibiotics) Adverse Reaction (Mild, Verified 08/10/24 16:28) Per pt. mother causes stomach ache haldol Adverse Reaction (Unknown, Uncoded 08/10/24 16:28) Other (See Comment) unknown per caregiver, was listed as allergy by pt mother Precautions Isolation Standard precaution 08/10/24 17:36 Active Medications Generic Name Dose Route Start Last Admin Trade Name Freq PRN Reason Stop Dose Admin Sodium Chloride 1,000 mls @ 250 mls/hr 08/10/24 19:30 08/10/24 20:17 Saline 1000ml Bag IV 250 mls/hr INFUSION TONG Administration IV IV Catheter Type [Left Wrist] Peripheral IV IV Catheter Type [Left Peripheral IV Antecubital] IV Catheter Gauge [Left Wrist] 20 IV Catheter Gauge [Left 18 Antecubital] Diet Orders Category Date Time Status Regular/Normal [DIET] Nutrition 08/11/24 Breakfast Ordered Diagnostics 08/10/24 08/10/24 08/10/24 Range/Units 21:47 20:35 17:53 WBC (4.4-10.8) 10^3/uL RBC (4.36-5.78) 10^6/uL Hgb (13.5-17.5) g/dL Hct (40.0-50.0) % MCV (80-95) fL MCH (27.0-33.0) pg MCHC (32.0-36.0) % RDW (11.8-14.1) % Plt Count (130-400) 10^3/uL MPV (8.0-11.0) fL Immature Gran % % Neutrophils % % Band Neutrophils % % Lymphocytes % % Monocytes % % Eosinophils % % Basophils % % Nucleated RBC % (0.0-0.3) % Absolute Neutrophils (1.2-6.7) 10^3/uL Absolute Lymphocytes (1.2-3.4) 10^3/uL Absolute Monocytes (0.1-0.8) 10^3/uL Absolute Eosinophils (0.0-0.7) 10^3/uL Absolute Basophils (0.0-0.2) 10^3/uL RBC Morphology VBG pH (7.31-7.41) VBG pCO2 (41-51) mmHg VBG pO2 mmHg VBG HCO3 (23-28) mmol/L VBG Total CO2 (24-29) mmol/L VBG O2 Saturation % VBG Base Excess (-2-3) mmol/L VBG Lactate 1.1 (0.6-1.4) mmol/L Sodium (136-145) mmol/L Potassium (3.5-5.1) mmol/L Chloride (98-107) mmol/L Carbon Dioxide (21.0-32.0) mmol/L Anion Gap (3-11) mmol/L BUN (7-18) mg/dL Creatinine (0.70-1.30) mg/dL Est GFR (CKD-EPI 2020) (mL/min/1.73m2) Glucose (74-106) mg/dL Calcium (8.5-10.1) mg/dL Magnesium (1.8-2.4) mg/dL Total Bilirubin (0.2-1.0) mg/dL AST (15-37) U/L ALT (16-63) U/L Alkaline Phosphatase (46-116) U/L Troponin I 12 12 (<or=76) ng/L Total Protein (6.4-8.2) g/dL Albumin (3.4-5.0) g/dL Procalcitonin ng/mL Urine Color (Yellow) Urine Clarity (Clear) Urine pH (5-8) Ur Specific [place] (1.005-1.025) Urine Protein (Neg-Trace) mg/dL Urine Ketones (Negative) mg/dL Urine Blood (Negative) Urine Nitrite (Negative) Urine Bilirubin (Negative) Urine Urobilinogen (Up to 0.2) mg/dL Ur Leukocyte Esterase (Negative) Urine RBC Urine WBC (0-5) HPF Ur Epithelial Cells Urine Crystals Urine Bacteria Urine Casts Urine Mucus Ur Culture Indicated? Urine Glucose (Negative) mg/dL COVID-19 Source SARS-CoV-2 (PCR) (Negative) Influenza Type A (PCR) (Negative) Influenza Type B (PCR) (Negative) RSV (PCR) (Negative) 08/10/24 08/10/24 08/10/24 Range/Units 17:04 16:48 16:38 WBC 19.52 H (4.4-10.8) 10^3/uL RBC 4.93 (4.36-5.78) 10^6/uL Hgb 14.2 (13.5-17.5) g/dL Hct 43.2 (40.0-50.0) % MCV 88 (80-95) fL MCH 28.8 (27.0-33.0) pg MCHC 32.9 (32.0-36.0) % RDW 13.5 (11.8-14.1) % Plt Count 170 (130-400) 10^3/uL MPV 11.2 H (8.0-11.0) fL Immature Gran % 0.0 % Neutrophils % 92.0 % Band Neutrophils % 1 % Lymphocytes % 1.0 % Monocytes % 6.0 % Eosinophils % 0.0 % Basophils % 0.0 % Nucleated RBC % 0.0 (0.0-0.3) % Absolute Neutrophils 18.15 H (1.2-6.7) 10^3/uL Absolute Lymphocytes 0.20 L (1.2-3.4) 10^3/uL Absolute Monocytes 1.17 H (0.1-0.8) 10^3/uL Absolute Eosinophils 0.00 (0.0-0.7) 10^3/uL Absolute Basophils 0.00 (0.0-0.2) 10^3/uL RBC Morphology Normal VBG pH 7.38 (7.31-7.41) VBG pCO2 48 (41-51) mmHg VBG pO2 39 mmHg VBG HCO3 28 (23-28) mmol/L VBG Total CO2 25 (24-29) mmol/L VBG O2 Saturation 70 % VBG Base Excess 3 (-2-3) mmol/L VBG Lactate 2.4 H* (0.6-1.4) mmol/L Sodium 138 (136-145) mmol/L Potassium 3.8 (3.5-5.1) mmol/L Chloride 101 (98-107) mmol/L Carbon Dioxide 28.8 (21.0-32.0) mmol/L Anion Gap 8.2 (3-11) mmol/L BUN 15 (7-18) mg/dL Creatinine 1.3 (0.70-1.30) mg/dL Est GFR (CKD-EPI 2020) 63.28 (mL/min/1.73m2) Glucose 127 H (74-106) mg/dL Calcium 8.6 (8.5-10.1) mg/dL Magnesium 1.2 L (1.8-2.4) mg/dL Total Bilirubin 0.54 (0.2-1.0) mg/dL AST 13 L (15-37) U/L ALT 19 (16-63) U/L Alkaline Phosphatase 113 (46-116) U/L Troponin I 14 (<or=76) ng/L Total Protein 6.9 (6.4-8.2) g/dL Albumin 3.1 L (3.4-5.0) g/dL Procalcitonin 3.57 ng/mL Urine Color Yellow (Yellow) Urine Clarity Cloudy (Clear) Urine pH 7.0 (5-8) Ur Specific [place] 1.025 (1.005-1.025) Urine Protein >=300 H (Neg-Trace) mg/dL Urine Ketones 15 H (Negative) mg/dL Urine Blood Moderate H (Negative) Urine Nitrite Positive H (Negative) Urine Bilirubin Negative (Negative) Urine Urobilinogen 0.2 (Up to 0.2) mg/dL Ur Leukocyte Esterase Moderate H (Negative) Urine RBC TNP Urine WBC >50 H (0-5) HPF Ur Epithelial Cells TNP Urine Crystals TNP Urine Bacteria TNP Urine Casts TNP Urine Mucus TNP Ur Culture Indicated? Yes Urine Glucose Negative (Negative) mg/dL COVID-19 Source Nasopharynx SARS-CoV-2 (PCR) Negative (Negative) Influenza Type A (PCR) Negative (Negative) Influenza Type B (PCR) Negative (Negative) RSV (PCR) Negative (Negative) 08/10/24 17:04 Urine Culture - Pending Urine - Reflex from Ua 08/10/24 16:48 Blood Culture - Pending Blood 08/10/24 16:48 Blood Culture - Pending Blood Intake and Output - 24 Hour Total 08/10/24 15:45 thru 08/10/24 20:17 Intake Total 1250 Balance 1250 Weight 91.138 kg Intake: IV 1250 Falls Risk Assessment History of Falls Previous History 08/10/24 18:05 Contributing Factors Confusion,Unstable, 08/10/24 18:05 Impairments Ambulatory Aids Uses ambulatory device + 08/10/24 18:05 Tubes/Lines W/no contributing factors 08/10/24 18:05 Gait Evaluation W/any additional score 08/10/24 18:05 Cognition Cognitive impairment 08/10/24 18:05 Fall Total Score 99 08/10/24 18:05 Level of Risk Maximum Risk 08/10/24 18:05 Problems (Last Reviewed 06/26/24 @ 16:13 by Vane Lehman DPM) Septic shock (Acute) Complicated UTI (urinary tract infection) (Acute) v v v v v v v v v Sending and/or Receiving Nurses: Please use comment section below to note any information pertinent to the patient hand-off not included above. Information / Comments: Told family would like selective measures done for Mr. Ambriz. Asked about these and was told that he does have an Advanced directive on file. Report received from: Alexsandra Peralta
--- OUTSIDE RECORDS SUMMARY | 2024-08-10 22:30 | XMS_ITS | Encounter Summary ---
[place] [address] Care Team Providers Care Agricultural Research Technician Name Role Phone Dimas Lau MD Primary Care Provider Encounter Details Date Type Department Care Team (Latest Contact Info) Description 12/23/2016 1:39 PM EDT - 12/23/2016 5:19 PM EDT Hospital En[place] [id number] Duncan Aponte MD [facility] [address] ANESTHESIOLOGY DEPT [place] [id number] Discharge Disposition: Home Social History Tobacco Use [...] Routine documented in this encounter Care Teams Agricultural Research Technician Relationship Specialty Start Date End Date Dimas Lau MD [address] [place] [address] PCP - General 06/30/10 documented as of this encounter
--- OUTSIDE RECORDS SUMMARY | 2024-08-10 22:30 | XMS_ITS | Encounter Summary ---
Author Organization [facility] Address [facility] [place] [address] Care Team Providers Care Therapy Teacher Name Role Phone Dimas Lau MD Primary Care Provider Encounter Details Date Type Department Care Team (Late st Contact Info) Description 11/01/2017 Orders Only [place] [id number] Joseline Ward APRN [facility] [place] [address] NF2-related schwannomatosis; Acoustic neuroma Social History Tobacco [...] nerves documented in this encounter Care Teams Therapy Teacher Relationship Specialty Start Date End Date Dimas Lau MD [address] [place] [address] PCP - General 06/30/10 documented as of this encounter
--- OUTSIDE RECORDS SUMMARY | 2024-08-10 22:30 | XMS_ITS | Encounter Summary ---
Author Organization [facility] Address [facility] [place] [address] Care Team Providers Care Poultry Cleaner Name Role Phone Dimas Lau MD Primary Care Provider [phone] Encounter Details Date Type Department Care Team (Late st Contact Info) Description 02/13/2016 1:00 PM EDT Office Visit [place] [address] Joseline Ward APRN [facility] [address] NF2 (neurofibromatosis 2); Cerebral meningioma; Left acoustic [...] was found in association with his Ring [id number] to have a neurofibromatosis type-II syndrome. He [...] of a prior meningioma, and placement of MOTORIZED SQUAD CAPTAIN shunt due to hydrocephalus following surgery. ROS: [...] nerves documented in this encounter Care Teams Poultry Cleaner Relationship Specialty Start Date End Date Dimas Lau MD [address] [place] [address] PCP - General 06/30/10 documented as of this encounter
--- OUTSIDE RECORDS SUMMARY | 2024-08-10 22:30 | XMS_ITS | Encounter Summary ---
[place] [address] Care Team Providers Care Thickener Operator Name Role Phone Dimas Lau MD Primary Care Provider Encounter Details Date Type Department Care Team (Late st Contact Info) Description 02/23/2016 External Results [place] [id number] Jane Berrios AUD Social History Tobacco Use [...] on filedocumented in this encounter Care Teams Thickener Operator Relationship Specialty Start Date End Date Dimas Lau MD [address] [place] [address] PCP - General 06/30/10 documented as of this encounter
--- OUTSIDE RECORDS SUMMARY | 2024-08-10 22:30 | XMS_ITS | Encounter Summary ---
Author Organization [facility] [place] [address] Care Team Providers Care Food Quality Tester Name Role Phone Dimas Lau MD Primary Care Provider Encounter Details Date Type Department Care Team (Late st Contact Info) Description 05/04/2018 Telephone [place] [address] Chelsey Hill, RN Social History [...] - 05/04/2018 10:07 AM EDT Brennan from [facility] ([phone] ext [phone]) phoned to inquire if Dr. Dimas Lau [...] on filedocumented in this encounter Care Teams Food Quality Tester Relationship Specialty Start Date End Date Dimas Lau MD [address] [place] [address] PCP - General 06/30/10 documented as of this encounter
--- OUTSIDE RECORDS SUMMARY | 2024-08-10 22:30 | XMS_ITS | Encounter Summary ---
[place] [address] Care Team Providers Care Hourly Manager Name Role Phone Dimas Lau MD Primary Care Provider [phone] Encounter Details Date Type Department Care Team (Late st Contact Info) Description 11/03/2017 Telephone [place] [phone] Aida Marcos Social History Tobacco Use Types [...] on filedocumented in this encounter Care Teams Hourly Manager Relationship Specialty Start Date End Date Dimas Lau MD [address] [place] [address] PCP - General 06/30/10 documented as of this encounter
--- OUTSIDE RECORDS SUMMARY | 2024-08-10 22:30 | XMS_ITS | Clinical Summary ---
Author Organization [facility] [place] [address] Care Team Providers Care Reel Stripper Name Role Phone Dimas Lau MD Primary Care Provider [phone] Allergies Active Allergy Reactions Criticality Noted Date [...] series) 04/08/2024 Medical Devices Implanted Type Area Toter Device Identifier Shelf Expiration Date Model / Serial / Lot Wire Dropper Shunt Other Description:TIP BANDER SHUNT PLACED IN 1993. MRI Conditional up to 1.5T. Shraddha Lynn MRI Safety Technologist 11/02/2017 Advance Directives * Full Code (Latest Code Status on File) Date Activated Date Inactivated Comments 12/19/2015 12:19 PM 12/19/2015 4:44 PM Question Answer Comments Does patient have capacity to make decision: Yes Care Teams Reel Stripper Relationship Specialty Start Date End Date Dimas Lau MD [address] [place] [address] PCP - General 06/30/10
--- OUTSIDE RECORDS SUMMARY | 2024-08-10 22:30 | XMS_ITS | Encounter Summary ---
[place] [address] Care Team Providers Care Circuit Designer Name Role Phone Dimas Lau MD Primary Care Provider Encounter Details Date Type Department Care Team (Late st Contact Info) Description 12/23/2016 2:50 PM EDT - 12/23/2016 4:10 [place] [phone] RESOURCE, ANESTHESIA-NICHOL None MRI WITH ANESTHESIA (WRVU [...] Routine documented in this encounter Care Teams Circuit Designer Relationship Specialty Start Date End Date Dimas Lau MD [address] [place] [address] PCP - General 06/30/10 documented as of this encounter
--- OUTSIDE RECORDS SUMMARY | 2024-08-10 22:30 | XMS_ITS | Encounter Summary ---
[place] [address] Care Team Providers Care Logistics Officer Name Role Phone Dimas Lau MD Primary Care Provider Encounter Details Date Type Department Care Team (Late st Contact Info) Description 11/02/2017 [place] [phone] Aida Marcos Social History Tobacco Use Types [...] on filedocumented in this encounter Care Teams Logistics Officer Relationship Specialty Start Date End Date Dimas Lau MD [address] [place] [address] PCP - General 06/30/10 documented as of this encounter
--- OUTSIDE RECORDS SUMMARY | 2024-08-10 22:30 | XMS_ITS | Encounter Summary ---
Author Organization [facility] [place] [address] Care Team Providers Care Linux System Administrator Name Role Phone Dimas Lau MD Primary Care Provider Encounter Details Date Type Department Care Team (Late st Contact Info) Description 12/23/2016 3:19 PM EDT [place] [phone] Duncan Aponte MD [facility] [place] [address] Anesthesia Record Procedure Summary Procedure Name Responsible [...] 1540; other (see comments) (right upper arm); [id number]-[id number] catheter system; 22 gauge; 12/23/16; 1711 12/23/16 [...] Aponte MD - 12/23/2016 5:38 PM EDT [facility] Department of Anesthesiology Post-procedure Note Patient: Hollis Ambriz Procedure Summary Date Anesthesia Start Anesthesia Stop Room / Location 12/23/16 6380 [id number] [facility] ADULT RADIOLOGY / [facility] [place] Procedure Diagnosis Surgeon Responsible Provider MRI WITH ANESTHESIA (WRVU *) (N/A Brain) (neurofibromatosis type 2) RESOURCE, ANESTHESIA-Duncan Lerner MD All Anesthesia Providers: Anesthesiologist: Duncan Aponte MD KNOTTING MACHINE OPERATOR PORTABLE: Alicia Randolph CRNA; Brittney Catherine CRNA Last (1hr) Vitals: BP 112/73 (12/23/16 1700) Temp Pulse Resp 16 (12/23/16 1700) SpO2 99 % (12/23/16 1700) Patient Location: PACU/[facility] Level of Consciousness: Awake and Alert Pain [...] WITH ANESTHESIA performed by Resource, Anesthesia-Guillermina at [facility] ??? PRG UNLISTED MRI PROCEDURE 02/25/2014 MRI WITH ANESTHESIA performed by Resource, Anesthesia-Guillermina at [facility] ??? PRG UNLISTED MRI PROCEDURE N/A 01/06/2015 MRI WITH ANESTHESIA performed by RESOURCE, ANESTHESIA-GUILLERMINA at [facility] ??? PRG UNLISTED MRI PROCEDURE N/A 12/19/2015 MRI WITH ANESTHESIA performed by RESOURCE, ANESTHESIA-GUILLERMINA at [facility] Social History Substance Use Topics ??? [...] r documented in this encounter Care Teams Linux System Administrator Relationship Specialty Start Date End Date Dimas Lau MD [address] [place] [address] PCP - General 06/30/10 documented as of this encounter
--- OUTSIDE RECORDS SUMMARY | 2024-08-10 22:30 | XMS_ITS | Encounter Summary ---
Author Organization [facility] [place] [address] Care Team Providers Care Graphics Specialist Name Role Phone Dimas Lau MD Primary Care Provider Encounter Details Date Type Department Care Team (Latest Contact Info) Description 04/26/2018 11:03 AM EDT - 04/26/2018 5:52 PM EDT Hospital Encounter [place] [phone] Jerry, Danny Palacios MD [facility] [place] [address] Discharge Disposition: Home Social History Tobacco Use [...] CRNA) documented in this encounter Care Teams Graphics Specialist Relationship Specialty Start Date End Date Dimas Lau MD [address] [place] [address] PCP - General 06/30/10 documented as of this encounter
--- OUTSIDE RECORDS SUMMARY | 2024-08-10 22:30 | XMS_ITS | Encounter Summary ---
[place] [address] Care Team Providers Care Organizational Development Consultant Name Role Phone Dimas Lau MD Primary Care Provider [phone] Encounter Details Date Type Department Care Team (Late st Contact Info) Description 03/17/2018 Telephone [place] [phone] Catrina Lopez Social History Tobacco Use Types [...] on filedocumented in this encounter Care Teams Organizational Development Consultant Relationship Specialty Start Date End Date Dimas Lau MD [address] [place] [address] PCP - General 06/30/10 documented as of this encounter
--- OUTSIDE RECORDS SUMMARY | 2024-08-10 22:30 | XMS_ITS | Encounter Summary ---
[place] [address] Care Team Providers Care Meter Calibrator Name Role Phone Dimas Lau MD Primary Care Provider Encounter Details Date Type Department Care Team (Late st Contact Info) Description 05/03/2018 Telephone [place] [phone] Catrina Lopez Social History Tobacco Use Types [...] on filedocumented in this encounter Care Teams Meter Calibrator Relationship Specialty Start Date End Date Dimas Lau MD [address] [place] [address] PCP - General 06/30/10 documented as of this encounter
--- OUTSIDE RECORDS SUMMARY | 2024-08-10 22:30 | XMS_ITS | Encounter Summary ---
[place] [address] Care Team Providers Care Drill Press Operator For Metal Name Role Phone Dimas Lau MD Primary Care Provider Encounter Details Date Type Department Care Team (Late st Contact Info) Description 04/26/2018 12:30 PM EDT - 04/26/2018 3:30 [place] [phone] RESOURCE, ANESTHESIA-NICHOL None MRI WITH ANESTHESIA (WRVU [...] CRNA) documented in this encounter Care Teams Drill Press Operator For Metal Relationship Specialty Start Date End Date Dimas aLu MD [address] [place] [address] PCP - General 06/30/10 documented as of this encounter
--- OUTSIDE RECORDS SUMMARY | 2024-08-10 22:30 | XMS_ITS | Data Portability ---
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 [email or web address] Not available 08/02/2023 16:59:52 11/07/2023 11/07/2023 The total time devoted to today's encounter, including both the aurx-xs-elcg time with the patient and/or family/caregiv er and huw-jmss-xy-fa ce time I personally spent is 70 [...] Organization Details Last Modified Time Details Appointments Phone Visit 20 2024 08:00A M Feliberto Starks Not available Not available Not available Home Visit 2024 10:20A M Feliberto Starks Not available Not available Not available Lab None recorded. Referral podiatris t referral 2023 024 [facility], [address] [place] [address], [place], [address], 02/22/2024 15:54:10 Procedures None recorded. Surgeries None recorded. Imaging None recorded. Medication Orders clotrimaz ole 1 % topical cream 2023 [facility], [address] [place], [address], 11/07/2023 17:49:02 clindamyc in phosphate 1 % topical solution 2023 024 [facility], [address] [place] [address], [address], 11/07/2023 17:52:12 sertralin e 25 mg tablet 2023 024 [facility], [address] [place], [address], 02/03/2024 15:26:38 azithromy phyllis 250 mg tablet 2023 024 [facility], [address] [place], [address], 04/25/2024 20:19:12 sertralin e 50 mg tablet 2023 024 [facility], [address] [place], [address], 02/03/2024 15:26:57 Patient TargetsNo targets recorded. Patient InstructionsNo instructions recorded. 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020 1.005- 1.025 normal Not Available [address] [place], [address] 07/14/2023 21:44:47 07/14/2007/14/2023 URINA LYSIS pH 7.0 5-8 normal Not Available Sundar gore [address] [place], [address] 07/14/2023 21:44:47 07/14/20 23 07/14/2023 URINA LYSIS leukocyte esterase Large negati ve abnormal Not Available [address] [place], [address] 07/14/2023 21:44:47 07/14/20 23 07/14/2023 URINA LYSIS nitrite Negati ve negati ve Not Available [address] [place], [address] 07/14/2023 21:44:47 07/14/20 23 07/14/2023 URINA LYSIS protein 100 mg/dL negati ve abnormal Not Available [address] [place], [address] 07/14/2023 21:44:47 07/14/20 23 07/14/2023 URINA LYSIS glucose Negati ve mg/dL negati ve Not Available [address] [place], [address] 07/14/2023 21:44:47 07/14/20 23 07/14/2023 URINA LYSIS ketones Negati ve mg/dL negati ve Not Available [address] [place], [address] 07/14/2023 21:44:47 07/14/20 07/14/2023 URINA LYSIS urobilinogen 0.2 mg/dL up to 0.2 Not Available [address] [place], [address] 07/14/2023 21:44:47 07/14/2007/14/2023 URINA LYSIS bilirubin Negati ve negati ve Not Available [address] [place], [address] 07/14/2023 21:44:47 07/14/2007/14/2023 URINA LYSIS blood Large negati ve abnormal Not Available [address] [place], [address] 07/14/2023 21:44:47 07/14/2007/14/2023 URINA LYSIS color Yellow yellow Not Available Sundar gore [address] [place], [address] 07/14/2023 21:51:48 07/14/20 23 07/14/2023 URINA LYSIS clarity Cloudy clear Not Available Sundar gore [address] [place], [address] 07/14/2023 21:51:48 07/14/2007/14/2023 URINA LYSIS specific gravity 1.020 1.005- 1.025 normal Not Available [address] [place], [address] 07/14/2023 21:51:48 07/14/20 23 07/14/2023 URINA LYSIS pH 7.0 5-8 normal Not Available Sundar gore [address] [place], [address] 07/14/2023 21:51:48 07/14/20 23 07/14/2023 URINA LYSIS leukocyte esterase Large negati ve abnormal Not Available [address] [place], [address] 07/14/2023 21:51:48 07/14/20 23 07/14/2023 URINA LYSIS nitrite Negati ve negati ve Not Available [address] [place], [address] 07/14/2023 21:51:48 07/14/20 23 07/14/2023 URINA LYSIS protein 100 mg/dL negati ve abnormal Not Available [address] [place], [address] 07/14/2023 21:51:48 07/14/20 23 07/14/2023 URINA LYSIS glucose Negati ve mg/dL negati ve Not Available [address] [place], [address] 07/14/2023 21:51:48 07/14/20 23 07/14/2023 URINA LYSIS ketones Negati ve mg/dL negati ve Not Available [address] [place], [address] 07/14/2023 21:51:48 07/14/2007/14/2023 URINA LYSIS urobilinogen 0.2 mg/dL up to 0.2 Not Available [address] [place], [address] 07/14/2023 21:51:48 07/14/20 23 07/14/2023 URINA LYSIS bilirubin Negati ve negati ve Not Available [address] [place], [address] 07/14/2023 21:51:48 07/14/2007/14/2023 URINA LYSIS blood Large negati ve abnormal Not Available [address] [place], [address] 07/14/2023 21:51:48 07/14/20 23 07/14/2023 MICRO SCOPI C FINDI NGS WBC >50 hpf 0-5 abnormal Not Available [address] [place], [address] 07/14/2023 21:51:48 07/14/20 23 07/14/2023 MICRO SCOPI C FINDI NGS RBC >50 hpf 0-2 abnormal Not Available [address] [place], [address] 07/14/2023 21:51:48 07/14/20 23 07/14/2023 MICRO SCOPI C FINDI NGS epithelial cells Few hpf negati ve Not Available [address] [place], [address] 07/14/2023 21:51:48 07/14/20 23 07/14/2023 MICRO SCOPI C FINDI NGS bacteria Few hpf negati ve Not Available [address] [place], [address] 07/14/2023 21:51:48 07/14/20 23 07/14/2023 MICRO SCOPI C FINDI NGS crystals Negati ve hpf negati ve Not Available [address] [place], [address] 07/14/2023 21:51:48 07/14/20 23 07/14/2023 MICRO SCOPI C FINDI NGS mucus Heavy negati ve Not Available [address] [place], [address] 07/14/2023 21:51:48 07/14/20 23 07/14/2023 MICRO SCOPI C FINDI NGS casts Negati ve lpf negati ve Not Available [address] [place], [address] 07/14/2023 21:51:48 07/14/20 23 07/14/2023 MICRO SCOPI C FINDI NGS C S indicated? Yes Not Available [address] [place], [address] 07/14/2023 21:51:48 07/14/20 23 07/14/2023 COMPL ETE BLOOD COUNT W/DIF F WBC 16.53 10_3/ uL 4.4-10 .8 high Not Available [address] [place], [address] 07/14/2023 22:41:52 07/14/20 23 07/14/2023 COMPL ETE BLOOD COUNT W/DIF F RBC 5.49 10_6/ uL 4.36-5 .78 normal Not Available [address] [place], [address] 07/14/2023 22:41:52 07/14/20 23 07/14/2023 COMPL ETE BLOOD COUNT W/DIF F HGB 15.0 g/dL 13.5-1 7.5 normal Not Available [address] [place], [address] 07/14/2023 22:41:52 07/14/20 23 07/14/2023 COMPL ETE BLOOD COUNT W/DIF F HCT 46.1 % 40.0-5 0.0 normal Not Available [address] [place], [address] 07/14/2023 22:41:52 07/14/20 23 07/14/2023 COMPL ETE BLOOD COUNT W/DIF F MCV 84 fL 80-95 normal Not Available Sundar gore [address] [place], [address] 07/14/2023 22:41:52 07/14/20 23 07/14/2023 COMPL ETE BLOOD COUNT W/DIF F MCH 27.3 pg 27.0-3 3.0 normal Not Available [address] [place], [address] 07/14/2023 22:41:52 07/14/20 23 07/14/2023 COMPL ETE BLOOD COUNT W/DIF F MCHC 32.5 % 32.0-3 6.0 normal Not Available [address] [place], [address] 07/14/2023 22:41:52 07/14/20 23 07/14/2023 COMPL ETE BLOOD COUNT W/DIF F RDW 13.0 % 11.8-1 4.1 normal Not Available [address] [place], [address] 07/14/2023 22:41:52 07/14/20 23 07/14/2023 COMPL ETE BLOOD COUNT W/DIF F platelet count 217 10_3/ uL 130-40 0 normal Not Available [address] [place], [address] 07/14/2023 22:41:52 07/14/20 23 07/14/2023 COMPL ETE BLOOD COUNT W/DIF F MPV 10.5 fL 8.0-11 .0 normal Not Available [address] [place], [address] 07/14/2023 22:41:52 07/14/20 23 07/14/2023 COMPL ETE BLOOD COUNT W/DIF F neutrophils % 89.4 Not Available [address] [place], [address] 07/14/2023 22:41:52 07/14/20 23 07/14/2023 COMPL ETE BLOOD COUNT W/DIF F lymphocytes % 4.7 Not Available [address] [place], [address] 07/14/2023 22:41:52 07/14/20 23 07/14/2023 COMPL ETE BLOOD COUNT W/DIF F monocytes % 4.8 Not Available [address] [place], [address] 07/14/2023 22:41:52 07/14/20 23 07/14/2023 COMPL ETE BLOOD COUNT W/DIF F eosinophils % 0.2 Not Available [address] [place], [address] 07/14/2023 22:41:52 07/14/20 23 07/14/2023 COMPL ETE BLOOD COUNT W/DIF F basophils % 0.4 Not Available [address] [place], [address] 07/14/2023 22:41:52 07/14/20 23 07/14/2023 COMPL ETE BLOOD COUNT W/DIF F immature grans % 0.5 Not Available [address] [place], [address] 07/14/2023 22:41:52 07/14/20 23 07/14/2023 COMPL ETE BLOOD COUNT W/DIF F nucleated RBC 0.0 % 0.0-0. 3 normal Not Available [address] [place], [address] 07/14/2023 22:41:52 07/14/20 23 07/14/2023 COMPL ETE BLOOD COUNT W/DIF F absolute neutrophil count 14.78 10_3/ uL 1.2-6. 7 high Not Available [address] [place], [address] 07/14/2023 22:41:52 07/14/20 23 07/14/2023 COMPL ETE BLOOD COUNT W/DIF F absolute lymphocyte count 0.78 10_3/ uL 1.2-3. 4 low Not Available [address] [place], [address] 07/14/2023 22:41:52 07/14/20 23 07/14/2023 COMPL ETE BLOOD COUNT W/DIF F absolute monocyte count 0.79 10_3/ uL 0.1-0. 8 normal Not Available [address] [place], [address] 07/14/2023 22:41:52 07/14/20 23 07/14/2023 COMPL ETE BLOOD COUNT W/DIF F absolute eosinophil count 0.03 10_3/ uL 0.0-0. 7 normal Not Available [address] [place], [address] 07/14/2023 22:41:52 07/14/20 23 07/14/2023 COMPL ETE BLOOD COUNT W/DIF F absolute basophil count 0.07 10_3/ uL 0.0-0. 2 normal Not Available [address] [place], [address] 07/14/2023 22:41:52 07/14/20 23 07/14/2023 BASIC METAB OLIC PANEL calcium 8.9 mg/dL 8.5-10 .1 normal Not Available [address] [place], [address] 07/14/2023 23:01:55 07/14/20 23 07/14/2023 BASIC METAB OLIC PANEL glucose 120 mg/dL 74-106 high Not Available Sundar gore [address] [place], [address] 07/14/2023 23:01:55 07/14/20 23 07/14/2023 BASIC METAB OLIC PANEL BUN 17 mg/dL 7-18 normal Not Available Sundar gore [address] [place], [address] 07/14/2023 23:01:55 07/14/20 23 07/14/2023 BASIC METAB OLIC PANEL creatinine 1.5 mg/dL 0.70-1 .30 high Not Available [address] [place], [address] 07/14/2023 23:01:55 07/14/20 23 07/14/2023 BASIC METAB [...] young er-ag ed adult s. Not Available [address] [place], [address] 07/14/2023 23:01:55 07/14/20 23 07/14/2023 BASIC METAB OLIC PANEL sodium 135 mmol/ L 136-14 5 low Not Available [address] [place], [address] 07/14/2023 23:01:55 07/14/20 23 07/14/2023 BASIC METAB OLIC PANEL potassium 4.2 mmol/ L 3.5-5. 1 normal Not Available [address] [place], [address] 07/14/2023 23:01:55 07/14/20 23 07/14/2023 BASIC METAB OLIC PANEL chloride 100 mmol/ L 98-107 normal Not Available [address] [place], [address] 07/14/2023 23:01:55 07/14/20 23 07/14/2023 BASIC METAB OLIC PANEL CO2 28.6 mmol/ L 21.0-3 2.0 normal Not Available [address] [place], [address] 07/14/2023 23:01:55 07/14/20 23 07/14/2023 BASIC METAB OLIC PANEL anion gap 6.4 mmol/ L 3-11 normal Not Available [address] [place], [address] 07/14/2023 23:01:55 07/14/20 23 07/14/2023 LACTA TE lactate 3.7 mmol/ L 0.6-1. 4 panic high Criti kristine value LACTA TE repor leidy to and lamine corodva from JESSY MOSQUEDA RN ED at 2237 07/14 by LAB.M ARC Not Available [facility] [address] [place], [address] 07/14/2023 23:11:53 07/14/2007/14/2023 PROCA LCITO SAMIR procalcitoni [...] based solel y on proca lcito samir carie ntrat ions. A proca lcito samir carie [...] se, among other cause s. Not Available [address] [place], [address] 07/14/2023 23:11:54 07/14/20 23 07/15/2023 URINE CULTU RE urine culture Urine Cultu re ACTIO N ID AND SUSCE PTIBI LITY TO FOLLO W APPEA LORRI Gram Negat tami [place] APPEA LORRI Gram Negat tami [place] APPEA LORRI Mixed Gram Posit tami Kelly COLON Y COUNT Not Available [address] [place], [address] 07/15/2023 12:01:49 07/14/20 23 07/15/2023 URINE CULTU RE urine culture colon ies/m L >100, 000 COLON Y COUNT <10,0 00 COLON Y COUNT 10,00 0 - 50,00 0 Day 1 Resul t ISOLA AELXANDRA BELOW O:GNR (ORGA NISM ID: 1.1) - [...] 10,00 0 - 50,00 0 Not Available [address] [place], [address] 07/15/2023 12:01:49 07/14/20 23 07/16/2023 BLOOD CULTU RE ( AGE => 9 YRS) blood culture ( age => 9 yrs) Blood Cultu re ( Age => 9 Yrs) NO GROWT H 24 HOURS Not Available [address] [place], [address] 07/16/2023 01:44:19 07/14/20 23 07/16/2023 BLOOD CULTU RE ( AGE => 9 YRS) blood culture ( age => 9 yrs) Blood Cultu re ( Age => 9 Yrs) NO GROWT H 24 HOURS Not Available [address] [place], [address] 07/16/2023 01:45:19 07/14/2007/16/2023 URINE CULTU RE urine culture Urine Cultu [...] tami Kelly COLON Y COUNT Not Available [address] [place], [address] 07/16/2023 12:09:38 07/14/2007/16/2023 URINE CULTU RE urine [...] 10,00 0 - 50,00 0 Not Available [address] [place], [address] 07/16/2023 12:09:38 07/14/20 23 07/17/2023 BLOOD CULTU RE ( AGE => 9 YRS) blood culture ( age => 9 yrs) Blood Cultu re ( Age => 9 Yrs) NO GROWT H 48 HOURS Not Available [address] [place], [address] 07/17/2023 01:46:15 07/14/20 23 07/17/2023 BLOOD CULTU RE ( AGE => 9 YRS) blood culture ( age => 9 yrs) Blood Cultu re ( Age => 9 Yrs) NO GROWT H 48 HOURS Not Available [address] [place], [address] 07/17/2023 01:47:15 07/14/2007/17/2023 URINE CULTU RE urine culture Urine Cultu [...] tami Kelly COLON Y COUNT Not Available [address] [place], [address] 07/17/2023 08:04:26 07/14/2007/17/2023 URINE CULTU RE urine [...] t ISOLA ALEXANDRA BELOW O:ENT CPX (ORGA NIS ID: [id number]) - ENTER OBACT ER CLOAC [...] zobac sargent S <=4 F Not Available [address] [place], [address] 07/17/2023 08:04:26 07/14/20 23 07/18/2023 BLOOD CULTU RE ( AGE => 9 YRS) blood culture ( age => 9 yrs) Blood Cultu re ( Age => 9 Yrs) NO GROWT H 72 HOURS Not Available [address] [place], [address] 07/18/2023 01:47:31 07/14/20 23 07/18/2023 BLOOD CULTU RE ( AGE => 9 YRS) blood culture ( age => 9 yrs) Blood Cultu re ( Age => 9 Yrs) NO GROWT H 72 HOURS Not Available [address] [place], [address] 07/18/2023 01:47:33 07/14/20 23 07/19/2023 BLOOD CULTU RE ( AGE => 9 YRS) blood culture ( age => 9 yrs) Blood Cultu re ( Age => 9 Yrs) NO GROWT H 96 HOURS Not Available [address] [place], [address] 07/19/2023 01:47:47 07/14/2007/19/2023 BLOOD CULTU RE ( AGE => 9 YRS) blood culture ( age => 9 yrs) Blood Cultu re ( Age => 9 Yrs) NO GROWT H 96 HOURS Not Available [address] [place], [address] 07/19/2023 01:47:50 07/14/2007/20/2023 BLOOD CULTU RE ( AGE => 9 YRS) blood culture ( age => 9 yrs) Blood Cultu re ( Age => 9 Yrs) NO GROWT H 120 HOURS Not Available [address] [place], [address] 07/20/2023 01:48:59 07/14/2007/20/2023 BLOOD CULTU RE ( AGE => 9 YRS) blood culture ( age => 9 yrs) Blood Cultu re ( Age => 9 Yrs) NO GROWT H 120 HOURS Not Available [address] [place], [address] 07/20/2023 01:49:01 07/15/2007/15/2023 LACTA TE lactate 1.2 mmol/ L 0.6-1. 4 normal Not Available [address] [place], [address] 07/15/2023 01:34:59 09/30/1909/30/2023 URINA LYSIS color Yellow yellow Not Available Sundar gore [address] [place], [address] 09/30/2023 14:00:17 09/30/19 24 09/30/2023 URINA LYSIS clarity Sl Cloudy clear Not Available Gurdeep graf [address] [place], [address] 09/30/2023 14:00:17 09/30/19 24 09/30/2023 URINA LYSIS specific gravity 1.020 1.005- 1.025 normal Not Available [address] [place], [address] 09/30/2023 14:00:17 09/30/19 24 09/30/2023 URINA LYSIS pH 7.0 5-8 normal Not Available Sundar gore [address] [place], [address] 09/30/2023 14:00:17 09/30/19 24 09/30/2023 URINA LYSIS leukocyte esterase Large negati ve abnormal Not Available [address] [place], [address] 09/30/2023 14:00:17 09/30/19 24 09/30/2023 URINA LYSIS nitrite Positi ve negati ve abnormal Not Available [address] [place], [address] 09/30/2023 14:00:17 09/30/19 24 09/30/2023 URINA LYSIS protein Trace mg/dL neg-tr cheryl Not Available [address] [place], [address] 09/30/2023 14:00:17 09/30/19 24 09/30/2023 URINA LYSIS glucose Negati ve mg/dL negati ve Not Available [address] [place], [address] 09/30/2023 14:00:17 09/30/19 24 09/30/2023 URINA LYSIS ketones Negati ve mg/dL negati ve Not Available [address] [place], [address] 09/30/2023 14:00:17 09/30/19 24 09/30/2023 URINA LYSIS urobilinogen 0.2 mg/dL up to 0.2 Not Available [address] [place], [address] 09/30/2023 14:00:17 09/30/19 24 09/30/2023 URINA LYSIS bilirubin Negati ve negati ve Not Available [address] [place], [address] 09/30/2023 14:00:17 09/30/19 24 09/30/2023 URINA LYSIS blood Trace- intact negati ve abnormal Not Available [address] [place], [address] 09/30/2023 14:00:17 09/30/19 24 09/30/2023 URINA LYSIS color Yellow yellow Not Available Sundar gore [address] [place], [address] 09/30/2023 14:08:17 09/30/19 24 09/30/2023 URINA LYSIS clarity Sl Cloudy clear Not Available Gurdeep graf [address] [place], [address] 09/30/2023 14:08:17 09/30/19 24 09/30/2023 URINA LYSIS specific gravity 1.020 1.005- 1.025 normal Not Available [address] [place], [address] 09/30/2023 14:08:17 09/30/19 24 09/30/2023 URINA LYSIS pH 7.0 5-8 normal Not Available Sundar gore [address] [place], [address] 09/30/2023 14:08:17 09/30/19 24 09/30/2023 URINA LYSIS leukocyte esterase Large negati ve abnormal Not Available [address] [place], [address] 09/30/2023 14:08:17 09/30/19 24 09/30/2023 URINA LYSIS nitrite Positi ve negati ve abnormal Not Available [address] [place], [address] 09/30/2023 14:08:17 09/30/19 24 09/30/2023 URINA LYSIS protein Trace mg/dL neg-tr cheryl Not Available [address] [place], [address] 09/30/2023 14:08:17 09/30/19 24 09/30/2023 URINA LYSIS glucose Negati ve mg/dL negati ve Not Available [address] [place], [address] 09/30/2023 14:08:17 09/30/19 24 09/30/2023 URINA LYSIS ketones Negati ve mg/dL negati ve Not Available [address] [place], [address] 09/30/2023 14:08:17 09/30/19 24 09/30/2023 URINA LYSIS urobilinogen 0.2 mg/dL up to 0.2 Not Available [address] [place], [address] 09/30/2023 14:08:17 09/30/19 24 09/30/2023 URINA LYSIS bilirubin Negati ve negati ve Not Available [address] [place], [address] 09/30/2023 14:08:17 09/30/19 24 09/30/2023 URINA LYSIS blood Trace- intact negati ve abnormal Not Available [address] [place], [address] 09/30/2023 14:08:17 09/30/19 24 09/30/2023 MICRO SCOPI C FINDI NGS WBC >50 hpf 0-5 abnormal WBC's obscu re micro scopi c exam. JH Not Available [address] [place], [address] 09/30/2023 14:08:18 09/30/19 24 09/30/2023 MICRO SCOPI C FINDI NGS C S indicated? C S Done As Ordere d Not Available [address] [place], [address] 09/30/2023 14:08:18 09/30/19 24 10/02/2023 URINE CULTU [...] T SPECI MEN POST LUIS ANTONIO TER ADAMS E. APPEA LORRI Mixed Gram Negat tami Kelly APPEA LORRI Mixed Gram Negat tami Kelly APPEA LORRI Mixed Gram Posit tami Kelly COLON Y COUNT Not Available [address] [place], [address] 10/02/2023 08:35:13 09/30/19 24 10/02/2023 URINE CULTU [...] ID: 1.2) - <10,0 00 Not Available [address] [place], [address] 10/02/2023 08:35:13 10/05/19 24 10/05/2023 URINE CULTU RE urine culture Urine Cultu re Comme nt: New cath place d at time of urine colle ction . Comme nt: New cath place d at time of urine colle ction . APPEA LORRI Gram Posit tami Kelly APPEA LORRI Gram Negat tami [place] COLON Y COUNT Not Available [address] [place], [address] 10/06/2023 15:35:25 10/05/19 24 10/06/2023 URINE CULTU [...] ID: 1.2) - <10,0 00 Not Available [address] [place], [address] 10/06/2023 15:35:25 10/05/19 24 10/05/2023 URINE CULTU [...] tami [place] COLON Y COUNT Not Available [address] [place], [address] 10/07/2023 09:54:41 10/05/19 24 10/07/2023 URINE CULTU [...] ID: 1.2) - <10,0 00 Not Available [address] [place], [address] 10/07/2023 09:54:41 10/31/19 24 10/31/2023 URINE CULTU RE urine culture Urine Cultu re Comme nt: new place ment of indwe lling li cath Comme nt: new place ment of indwe lling li cath Possi ble conta minat ed colle ction APPEA LORRI Mixed Gram Posit tami Kelly COLON Y COUNT Not Available [address] [place], [address] 11/01/2023 11:15:19 10/31/19 24 11/01/2023 URINE CULTU RE urine culture colon ies/m L 10,00 0 - 50,00 0 Day 1 Resul t ISOLA ALEXANDRA BELOW O:GPF M (ORGA NISM ID: 1.1) - GRAM POSIT TAMI KELLY ,MIXE D Urine Cultu re (ORGA NISM ID: 1.1) - COLON Y COUNT (ORGA NISM ID: 1.1) - 10,00 0 - 50,00 0 Not Available [address] [place], [address] 11/01/2023 11:15:19 10/31/19 24 10/31/2023 URINE CULTU RE urine culture Urine Cultu re Comme nt: new place ment of indwe lling li cath Comme nt: new place ment of indwe lling li cath APPEA LORRI Gram Posit tami Kelly APPEA LORRI Yeast COLON Y COUNT Not Available [address] [facility] [place], [address] 11/02/2023 08:37:44 10/31/19 24 11/02/2023 URINE CULTU [...] 10,00 0 - 50,00 0 Not Available [address] [facility] [place], [address] 11/02/2023 08:37:44 11/29/19 24 11/29/2023 URINA LYSIS color Yellow yellow Not Available Sundar gore [address] [place], [address] 11/29/2023 13:40:12 11/29/19 24 11/29/2023 URINA LYSIS clarity Sl Cloudy clear Not Available Gurdeep graf [address] [place], [address] 11/29/2023 13:40:12 11/29/19 24 11/29/2023 URINA LYSIS specific gravity 1.020 1.005- 1.025 normal Not Available [address] [place], [id number] 11/29/2023 13:40:12 11/29/19 24 11/29/2023 URINA LYSIS pH 6.5 5-8 normal Not Available Sundar gore [address] [place], [address] 11/29/2023 13:40:12 11/29/19 24 11/29/2023 URINA LYSIS leukocyte esterase Small negati ve abnormal Not Available [address] [place], [address] 11/29/2023 13:40:12 11/29/19 24 11/29/2023 URINA LYSIS nitrite Negati ve negati ve Not Available [address] [place], [address] 11/29/2023 13:40:12 11/29/19 24 11/29/2023 URINA LYSIS protein 100 mg/dL neg-tr cheryl abnormal Not Available [address] [place], [address] 11/29/2023 13:40:12 11/29/19 24 11/29/2023 URINA LYSIS glucose Negati ve mg/dL negati ve Not Available [address] [place], [address] 11/29/2023 13:40:12 11/29/19 24 11/29/2023 URINA LYSIS ketones Negati ve mg/dL negati ve Not Available [address] [place], [address] 11/29/2023 13:40:12 11/29/19 24 11/29/2023 URINA LYSIS urobilinogen 0.2 mg/dL up to 0.2 Not Available [address] [place], [address] 11/29/2023 13:40:12 11/29/19 24 11/29/2023 URINA LYSIS bilirubin Negati ve negati ve Not Available [address] [place], [address] 11/29/2023 13:40:12 11/29/19 24 11/29/2023 URINA LYSIS blood Trace- intact negati ve abnormal Not Available [address] [place], [address] 11/29/2023 13:40:12 11/29/19 24 11/29/2023 URINA LYSIS color Yellow yellow Not Available Sundar gore [address] [place], [address] 11/29/2023 13:57:16 11/29/19 24 11/29/2023 URINA LYSIS clarity Sl Cloudy clear Not Available Gurdeep graf [address] [place], [address] 11/29/2023 13:57:16 11/29/19 24 11/29/2023 URINA LYSIS specific gravity 1.020 1.005- 1.025 normal Not Available [address] [place], [address] 11/29/2023 13:57:16 11/29/19 24 11/29/2023 URINA LYSIS pH 6.5 5-8 normal Not Available Sundar gore [address] [place], [address] 11/29/2023 13:57:16 11/29/19 24 11/29/2023 URINA LYSIS leukocyte esterase Small negati ve abnormal Not Available [address] [place], [address] 11/29/2023 13:57:16 11/29/19 24 11/29/2023 URINA LYSIS nitrite Negati ve negati ve Not Available [address] [place], [address] 11/29/2023 13:57:16 11/29/19 24 11/29/2023 URINA LYSIS protein 100 mg/dL neg-tr cheryl abnormal Not Available [address] [place], [address] 11/29/2023 13:57:16 11/29/19 24 11/29/2023 URINA LYSIS glucose Negati ve mg/dL negati ve Not Available [address] [place], [address] 11/29/2023 13:57:16 11/29/19 24 11/29/2023 URINA LYSIS ketones Negati ve mg/dL negati ve Not Available [address] [place], [address] 11/29/2023 13:57:16 11/29/19 24 11/29/2023 URINA LYSIS urobilinogen 0.2 mg/dL up to 0.2 Not Available [address] [place], [address] 11/29/2023 13:57:16 11/29/19 24 11/29/2023 URINA LYSIS bilirubin Negati ve negati ve Not Available [address] [place], [address] 11/29/2023 13:57:16 11/29/19 24 11/29/2023 URINA LYSIS blood Trace- intact negati ve abnormal Not Available [address] [place], [address] 11/29/2023 13:57:16 11/29/19 24 11/29/2023 MICRO SCOPI C FINDI NGS WBC >50 hpf 0-5 abnormal Not Available [address] [place], [address] 11/29/2023 13:57:16 11/29/19 24 11/29/2023 MICRO SCOPI C FINDI NGS RBC 0-2 hpf 0-2 Not Available Sundar gore [address] [place], [address] 11/29/2023 13:57:16 11/29/19 24 11/29/2023 MICRO SCOPI C FINDI NGS epithelial cells Few hpf negati ve Not Available [address] [place], [address] 11/29/2023 13:57:16 11/29/19 24 11/29/2023 MICRO SCOPI C FINDI NGS bacteria Rare hpf negati ve Not Available [address] [place], [address] 11/29/2023 13:57:16 11/29/19 24 11/29/2023 MICRO SCOPI C FINDI NGS crystals Negati ve hpf negati ve Not Available [address] [place], [address] 11/29/2023 13:57:16 11/29/19 24 11/29/2023 MICRO SCOPI C FINDI NGS mucus Negati ve negati ve Not Available [address] [place], [address] 11/29/2023 13:57:16 11/29/19 24 11/29/2023 MICRO SCOPI C FINDI NGS casts 5-10 WBC lpf negati ve Not Available [address] [place], [address] 11/29/2023 13:57:16 11/29/19 24 11/29/2023 MICRO SCOPI C FINDI NGS C S indicated? C S Done As Ordere d Not Available [address] [place], [address] 11/29/2023 13:57:16 11/29/19 24 11/29/2023 URINE CULTU RE urine culture Urine Cultu re Comme nt: new li place d at time of sampl e colle ction Comme nt: new li place d at time of sampl e colle ction APPEA LORRI Gram Negat tami [place] COLON Y COUNT Not Available [address] [place], [address] 11/30/2023 09:04:55 11/29/19 24 11/30/2023 URINE CULTU RE urine culture colon ies/m L <10,0 00 Day 1 Resul t ISOLA ALEXANDRA BELOW O:GNR (ORGA NISM ID: 1.1) - GRAM NEGAT TAMI [place] Urine Cultu re (ORGA NISM ID: 1.1) - COLON Y COUNT (ORGA NISM ID: 1.1) - <10,0 00 Not Available [address] [place], [address] 11/30/2023 09:04:55 11/29/19 24 11/29/2023 URINE CULTU RE urine culture Urine Cultu re Comme nt: new li place d at time of sampl e colle ction Comme nt: new li place d at time of sampl e colle ction APPEA LORRI Gram Negat tami [place] APPEA LORRI Gram Negat tami [place] COLON Y COUNT Not Available [address] [facility] [place], [address] 12/01/2023 11:38:49 11/29/19 24 12/01/2023 URINE CULTU [...] ID: 1.1) - <10,0 00 Not Available [address] [facility] [place], [address] 12/01/2023 11:38:49 01/05/20 24 01/05/2024 URINA LYSIS color Yellow yellow Not Available Sundar gore [address] [place], [address] 01/05/2024 21:53:05 01/05/20 24 01/05/2024 URINA LYSIS clarity Cloudy clear Not Available Sundar gore [address] [facility] [place], [address] 01/05/2024 21:53:05 01/05/20 24 01/05/2024 URINA LYSIS specific gravity >= 1.030 1.005- 1.025 high Not Available [address] [facility] [place], [address] 01/05/2024 21:53:05 01/05/20 24 01/05/2024 URINA LYSIS pH 6.0 5-8 normal Not Available Sundar gore [address] [facility] [place], [address] 01/05/2024 21:53:05 01/05/20 24 01/05/2024 URINA LYSIS leukocyte esterase Large negati ve abnormal Not Available [address] [facility] [place], [address] 01/05/2024 21:53:05 01/05/20 24 01/05/2024 URINA LYSIS nitrite Positi ve negati ve abnormal Not Available [address] [place], [address] 01/05/2024 21:53:05 01/05/20 24 01/05/2024 URINA LYSIS protein 100 mg/dL neg-tr cheryl abnormal Not Available [address] [place], [address] 01/05/2024 21:53:05 01/05/20 24 01/05/2024 URINA LYSIS glucose Negati ve mg/dL negati ve Not Available [address] [place], [address] 01/05/2024 21:53:05 01/05/20 24 01/05/2024 URINA LYSIS ketones Negati ve mg/dL negati ve Not Available [address] [place], [address] 01/05/2024 21:53:05 01/05/20 24 01/05/2024 URINA LYSIS urobilinogen 0.2 mg/dL up to 0.2 Not Available [address] [place], [address] 01/05/2024 21:53:05 01/05/20 24 01/05/2024 URINA LYSIS bilirubin Negati ve negati ve Not Available [address] [place], [address] 01/05/2024 21:53:05 01/05/20 24 01/05/2024 URINA LYSIS blood Large negati ve abnormal Not Available [address] [place], [address] 01/05/2024 21:53:05 01/05/20 24 01/05/2024 URINA LYSIS color Yellow yellow Not Available Sundar gore [address] [place], [address] 01/05/2024 21:58:06 01/05/20 24 01/05/2024 URINA LYSIS clarity Cloudy clear Not Available Sundar gore [address] [place], [address] 01/05/2024 21:58:06 01/05/20 24 01/05/2024 URINA LYSIS specific gravity >= 1.030 1.005- 1.025 high Not Available [address] [place], [address] 01/05/2024 21:58:06 01/05/20 24 01/05/2024 URINA LYSIS pH 6.0 5-8 normal Not Available Sundar gore [address] [place], [address] 01/05/2024 21:58:06 01/05/20 24 01/05/2024 URINA LYSIS leukocyte esterase Large negati ve abnormal Not Available [address] [place], [address] 01/05/2024 21:58:06 01/05/20 24 01/05/2024 URINA LYSIS nitrite Positi ve negati ve abnormal Not Available [address] [place], [address] 01/05/2024 21:58:06 01/05/20 24 01/05/2024 URINA LYSIS protein 100 mg/dL neg-tr cheryl abnormal Not Available [address] [place], [address] 01/05/2024 21:58:06 01/05/20 24 01/05/2024 URINA LYSIS glucose Negati ve mg/dL negati ve Not Available [address] [place], [address] 01/05/2024 21:58:06 01/05/20 24 01/05/2024 URINA LYSIS ketones Negati ve mg/dL negati ve Not Available [address] [place], [address] 01/05/2024 21:58:06 01/05/20 24 01/05/2024 URINA LYSIS urobilinogen 0.2 mg/dL up to 0.2 Not Available [address] [place], [address] 01/05/2024 21:58:06 01/05/20 24 01/05/2024 URINA LYSIS bilirubin Negati ve negati ve Not Available [address] [place], [address] 01/05/2024 21:58:06 01/05/20 24 01/05/2024 URINA LYSIS blood Large negati ve abnormal Not Available [address] [place], [address] 01/05/2024 21:58:06 01/05/20 24 01/05/2024 MICRO SCOPI C FINDI NGS WBC >50 hpf 0-5 abnormal WBC's obscu re micro scopi c exam. Not Available [address] [place], [address] 01/05/2024 21:58:06 01/05/20 24 01/05/2024 MICRO SCOPI C FINDI NGS RBC hpf 0-2 PRESE NT BUT UNABL E TO QUANT ITATE DUE TO WBC's obscu re micro scopi c exam. Not Available [address] [place], [address] 01/05/2024 21:58:06 01/05/20 24 01/05/2024 MICRO SCOPI C FINDI NGS C S indicated? Yes Not Available [address] [place], [address] 01/05/2024 21:58:06 01/05/20 24 01/07/2024 URINE CULTU RE urine culture Urine Cultu re ACTIO N ID AND SUSCE PTIBI LITY TO FOLLO W ACTIO N ID AND SUSCE PTIBI LITY TO FOLLO W APPEA LORRI Gram Negat tami [place] APPEA LORRI Gram Negat tami [place] COLON Y COUNT Not Available [address] [place], [address] 01/07/2024 09:38:29 01/05/20 24 01/07/2024 URINE CULTU [...] ID: 1.2) - >100, 000 Not Available [address] [place], [address] 01/07/2024 09:38:29 01/05/20 24 01/08/2024 URINE CULTU RE urine culture Urine Cultu [...] rins, and the monob actam aztre onam. Wicho forbes ESBL resul ts to and read back [...] tami [place] COLON Y COUNT Not Available [address] [place], [address] 01/08/2024 07:49:32 01/05/20 24 01/08/2024 URINE CULTU [...] illin /Sulb actam I 16 F Cefaz annalisa R >=64 F Cefta [...] zobac sargent S <=4 F Not Available [address] [place], [address] 01/08/2024 07:49:32 01/24/20 24 01/24/2024 URINE CULTU RE urine culture Urine Cultu re Comme nt: sampl e colle cted at [facility] e Comme nt: sampl e colle cted at [facility] e ACTIO N ID AND SUSCE PTIBI LITY TO FOLLO W APPEA LORRI Gram Negat tami [place] APPEA LORRI Mixed Gram Negat tami [place] COLON Y COUNT Not Available [address] [place], [address] 01/25/2024 10:39:48 01/24/20 24 01/25/2024 URINE CULTU [...] ID: 1.2) - <10,0 00 Not Available [address] [facility] [place], [address] 01/25/2024 10:39:48 01/24/20 24 01/24/2024 URINE CULTU RE urine culture Urine Cultu re Comme nt: sampl e colle cted at [facility] e Comme nt: sampl e colle cted at [facility] e ACTIO N ID AND SUSCE PTIBI LITY TO FOLLO W ACTIO N ID AND SUSCE PTIBI LITY TO FOLLO W APPEA LORRI Gram Negat tami [place] APPEA LORRI Mixed Gram Negat tami [place] APPEA LORRI Gram Negat tami [place] APPEA LORRI Mixed Gram Negat tami [place] COLON Y COUNT Not Available [address] [place], [address] 01/26/2024 09:39:52 01/24/20 24 01/26/2024 URINE CULTU [...] ID: 1.2) - <10,0 00 Not Available [address] [place], [address] 01/26/2024 09:39:52 01/24/20 24 01/24/2024 URINE CULTU RE urine culture Urine Cultu re Comme nt: sampl e colle cted at [facility] e Comme nt: sampl e colle cted at [facility] e ACTIO N ID AND SUSCE PTIBI LITY TO FOLLO W ACTIO N ID AND SUSCE PTIBI LITY TO FOLLO W APPEA LORRI Gram Negat tami [place] APPEA LORRI Mixed Gram Negat tami [place] APPEA LORRI Gram Negat tami [place] APPEA LORRI Mixed Gram Negat tami [place] COLON Y COUNT Not Available [address] [place], [address] 01/26/2024 11:25:10 01/24/20 24 01/26/2024 URINE CULTU [...] ID: 1.2) - <10,0 00 Not Available [address] [place], [address] 01/26/2024 11:25:10 01/24/20 24 01/24/2024 URINE CULTU RE urine culture Urine Cultu re Comme nt: sampl e colle cted at [facility] e Comme nt: sampl e colle cted at [facility] e ACTIO N ID AND SUSCE PTIBI [...] tami [place] COLON Y COUNT Not Available [facility] [address], [place], [address] 01/27/2024 08:11:06 01/24/20 24 01/27/2024 URINE CULTU [...] zobac sargent S <=4 F Not Available [address] [place], [address] 01/27/2024 08:11:06 04/06/20 24 04/06/2024 URINA LYSIS color Yellow yellow Not Available Sundar gore [address] [place], [address] 04/06/2024 17:58:21 04/06/20 24 04/06/2024 URINA LYSIS clarity Sl Cloudy clear Not Available Gurdeep graf [address] [place], [address] 04/06/2024 17:58:21 04/06/20 24 04/06/2024 URINA LYSIS specific gravity 1.020 1.005- 1.025 normal Not Available [address] [place], [address] 04/06/2024 17:58:21 04/06/20 24 04/06/2024 URINA LYSIS pH 7.0 5-8 normal Not Available Sundar gore [address] [place], [address] 04/06/2024 17:58:21 04/06/20 24 04/06/2024 URINA LYSIS leukocyte esterase Modera te negati ve abnormal Not Available [address] [place], [address] 04/06/2024 17:58:21 04/06/20 24 04/06/2024 URINA LYSIS nitrite Negati ve negati ve Not Available [address] [place], [address] 04/06/2024 17:58:21 04/06/20 24 04/06/2024 URINA LYSIS protein 100 mg/dL neg-tr cheryl abnormal Not Available [address] [place], [address] 04/06/2024 17:58:21 04/06/20 24 04/06/2024 URINA LYSIS glucose Negati ve mg/dL negati ve Not Available [address] [place], [address] 04/06/2024 17:58:21 04/06/20 24 04/06/2024 URINA LYSIS ketones Negati ve mg/dL negati ve Not Available [address] [place], [address] 04/06/2024 17:58:21 04/06/20 24 04/06/2024 URINA LYSIS urobilinogen 0.2 mg/dL up to 0.2 Not Available [address] [place], [address] 04/06/2024 17:58:21 04/06/20 24 04/06/2024 URINA LYSIS bilirubin Negati ve negati ve Not Available [address] [place], [address] 04/06/2024 17:58:21 04/06/20 24 04/06/2024 URINA LYSIS blood Modera te negati ve abnormal Not Available [address] [place], [address] 04/06/2024 17:58:21 04/06/20 24 04/06/2024 COVID /FLU/ RSV PCR source NASOPH ARYNX Not Available Gurdeep [address] [place], [address] 04/06/2024 18:02:22 04/06/20 24 04/06/2024 COVID /FLU/ RSV PCR covid-19 PCR Negati ve negati ve This test has not been FDA clear ed or appro daniel. This test has been autho rized by the FDA under an Emerg ency Use Autho rizat ion for use by autho rized labor atori es. This test has been autho rized only for detec tion of nucle ic acid from the 2019 novel coron a virus (2019 -nCoV ), influ eboni A, influ eboni B, and respi rator y syncy tial virus (RSV) , and not for the detec tion of any other virus es or patho gens. This test is only autho rized for the durat ion of the decla ratio n that circu mstan vince exist justi fying the autho rizat ion of emerg ency use of in vitro diagn ostic tests for detec tion and/o r diagn osis of 2019- nCoV under secti on 564(b )(1) of Act, 21 U.S.C ??? 360bb b-3(b )(1), unles s the autho rimavist ion is termi nated or revok ed soone r. Negat tami resul ts do not precl ude 2019- nCoV, influ eboni, and/o r RSV infec tion and shoul d not be used as the sole basis for treat ment or other patie nt manag ement decis ions. Negat tami resul ts must be combi rosmery with clini kristine obser vatio ns, patie nt histo ry, and epide miolo gical infor mayank snow Testi ng perfo rmed at [facility] (CLIA #[id number]) on the [employer] id [email or web address] pert. Not Available [address] [facility] [place], [address] 04/06/2024 18:02:22 04/06/20 24 04/06/2024 COVID /FLU/ RSV PCR influenza A PCR Negati ve negati ve Not Available [address] [place], [address] 04/06/2024 18:02:22 04/06/20 24 04/06/2024 COVID /FLU/ RSV PCR influenza B PCR Negati ve negati ve Not Available [address] [place], [address] 04/06/2024 18:02:22 04/06/20 24 04/06/2024 COVID /FLU/ RSV PCR RSV PCR Negati ve negati ve Not Available [address] [facility] [place], [address] 04/06/2024 18:02:22 04/06/20 24 04/06/2024 URINA LYSIS color Yellow yellow Not Available Sundar gore [address] [place], [address] 04/06/2024 18:07:23 04/06/20 24 04/06/2024 URINA LYSIS clarity Sl Cloudy clear Not Available Gurdeep graf [address] [place], [address] 04/06/2024 18:07:23 04/06/20 24 04/06/2024 URINA LYSIS specific gravity 1.020 1.005- 1.025 normal Not Available [address] [place], [address] 04/06/2024 18:07:23 04/06/20 24 04/06/2024 URINA LYSIS pH 7.0 5-8 normal Not Available Sundar gore [address] [place], [address] 04/06/2024 18:07:23 04/06/20 24 04/06/2024 URINA LYSIS leukocyte esterase Modera te negati ve abnormal Not Available [address] [place], [address] 04/06/2024 18:07:23 04/06/20 24 04/06/2024 URINA LYSIS nitrite Negati ve negati ve Not Available [address] [place], [address] 04/06/2024 18:07:23 04/06/20 24 04/06/2024 URINA LYSIS protein 100 mg/dL neg-tr cheryl abnormal Not Available [address] [place], [address] 04/06/2024 18:07:23 04/06/20 24 04/06/2024 URINA LYSIS glucose Negati ve mg/dL negati ve Not Available [address] [place], [address] 04/06/2024 18:07:23 04/06/20 24 04/06/2024 URINA LYSIS ketones Negati ve mg/dL negati ve Not Available [address] [place], [address] 04/06/2024 18:07:23 04/06/20 24 04/06/2024 URINA LYSIS urobilinogen 0.2 mg/dL up to 0.2 Not Available [address] [place], [address] 04/06/2024 18:07:23 04/06/20 24 04/06/2024 URINA LYSIS bilirubin Negati ve negati ve Not Available [address] [place], [address] 04/06/2024 18:07:23 04/06/20 24 04/06/2024 URINA LYSIS blood Modera te negati ve abnormal Not Available [address] [place], [address] 04/06/2024 18:07:23 04/06/20 24 04/06/2024 MICRO SCOPI C FINDI NGS WBC 20-50 hpf 0-5 abnormal Not Available [address] [place], [address] 04/06/2024 18:07:24 04/06/20 24 04/06/2024 MICRO SCOPI C FINDI NGS RBC 10-20 hpf 0-2 abnormal Not Available [address] [place], [address] 04/06/2024 18:07:24 04/06/20 24 04/06/2024 MICRO SCOPI C FINDI NGS epithelial cells Negati ve hpf negati ve Not Available [address] [place], [address] 04/06/2024 18:07:24 04/06/20 24 04/06/2024 MICRO SCOPI C FINDI NGS bacteria Rare hpf negati ve Not Available [address] [place], [address] 04/06/2024 18:07:24 04/06/20 24 04/06/2024 MICRO SCOPI C FINDI NGS crystals Negati ve hpf negati ve Not Available [address] [place], [address] 04/06/2024 18:07:24 04/06/20 24 04/06/2024 MICRO SCOPI C FINDI NGS mucus Negati ve negati ve Not Available [address] [place], [address] 04/06/2024 18:07:24 04/06/20 24 04/06/2024 MICRO SCOPI C FINDI NGS C S indicated? Yes Not Available [address] [place], [address] 04/06/2024 18:07:24 04/06/20 24 04/06/2024 COMPL ETE BLOOD COUNT W/DIF F WBC 13.00 10_3/ uL 4.4-10 .8 high Not Available [address] [place], [address] 04/06/2024 20:17:37 04/06/20 24 04/06/2024 COMPL ETE BLOOD COUNT W/DIF F RBC 4.76 10_6/ uL 4.36-5 .78 normal Not Available [address] [place], [address] 04/06/2024 20:17:37 04/06/20 24 04/06/2024 COMPL ETE BLOOD COUNT W/DIF F HGB 13.7 g/dL 13.5-1 7.5 normal Not Available [address] [place], [address] 04/06/2024 20:17:37 04/06/20 24 04/06/2024 COMPL ETE BLOOD COUNT W/DIF F HCT 42.5 % 40.0-5 0.0 normal Not Available [address] [place], [address] 04/06/2024 20:17:37 04/06/20 24 04/06/2024 COMPL ETE BLOOD COUNT W/DIF F MCV 89 fL 80-95 normal Not Available [address] [place], [address] 04/06/2024 20:17:37 04/06/20 24 04/06/2024 COMPL ETE BLOOD COUNT W/DIF F MCH 28.8 pg 27.0-3 3.0 normal Not Available [address] [place], [address] 04/06/2024 20:17:37 04/06/20 24 04/06/2024 COMPL ETE BLOOD COUNT W/DIF F MCHC 32.2 % 32.0-3 6.0 normal Not Available [address] [place], [address] 04/06/2024 20:17:37 04/06/20 24 04/06/2024 COMPL ETE BLOOD COUNT W/DIF F RDW 13.2 % 11.8-1 4.1 normal Not Available [address] [place], [address] 04/06/2024 20:17:37 04/06/20 24 04/06/2024 COMPL ETE BLOOD COUNT W/DIF F platelet count 178 10_3/ uL 130-40 0 normal Not Available [address] [place], [address] 04/06/2024 20:17:37 04/06/20 24 04/06/2024 COMPL ETE BLOOD COUNT W/DIF F MPV 10.4 fL 8.0-11 .0 normal Not Available [address] [place], [address] 04/06/2024 20:17:37 04/06/20 24 04/06/2024 COMPL ETE BLOOD COUNT W/DIF F neutrophils % 88.0 % Not Available [address] [place], [address] 04/06/2024 20:17:37 04/06/20 24 04/06/2024 COMPL ETE BLOOD COUNT W/DIF F lymphocytes % 6.6 % Not Available [address] [place], [address] 04/06/2024 20:17:37 04/06/20 24 04/06/2024 COMPL ETE BLOOD COUNT W/DIF F monocytes % 4.4 % Not Available [address] [place], [address] 04/06/2024 20:17:37 04/06/20 24 04/06/2024 COMPL ETE BLOOD COUNT W/DIF F eosinophils % 0.4 % Not Available [address] [place], [address] 04/06/2024 20:17:37 04/06/20 24 04/06/2024 COMPL ETE BLOOD COUNT W/DIF F basophils % 0.3 % Not Available [address] [place], [address] 04/06/2024 20:17:37 04/06/20 24 04/06/2024 COMPL ETE BLOOD COUNT W/DIF F immature grans % 0.3 % Not Available Francesca howard [address] [place], [address] 04/06/2024 20:17:37 04/06/20 24 04/06/2024 COMPL ETE BLOOD COUNT W/DIF F nucleated RBC 0.0 % 0.0-0. 3 normal Not Available [address] [place], [address] 04/06/2024 20:17:37 04/06/20 24 04/06/2024 COMPL ETE BLOOD COUNT W/DIF F absolute neutrophil count 11.44 10_3/ uL 1.2-6. 7 high Not Available [address] [place], [address] 04/06/2024 20:17:37 04/06/20 24 04/06/2024 COMPL ETE BLOOD COUNT W/DIF F absolute lymphocyte count 0.86 10_3/ uL 1.2-3. 4 low Not Available [address] [place], [address] 04/06/2024 20:17:37 04/06/20 24 04/06/2024 COMPL ETE BLOOD COUNT W/DIF F absolute monocyte count 0.57 10_3/ uL 0.1-0. 8 normal Not Available [address] [place], [address] 04/06/2024 20:17:37 04/06/20 24 04/06/2024 COMPL ETE BLOOD COUNT W/DIF F absolute eosinophil count 0.05 10_3/ uL 0.0-0. 7 normal Not Available [address] [place], [address] 04/06/2024 20:17:37 04/06/20 24 04/06/2024 COMPL ETE BLOOD COUNT W/DIF F absolute basophil count 0.04 10_3/ uL 0.0-0. 2 normal Not Available [address] [place], [id number] 04/06/2024 20:17:37 04/06/20 24 04/06/2024 COMPR EHENS TAMI METAB OLIC PANEL calcium 8.3 mg/dL 8.5-10 .1 low Not Available [address] [place], [address] 04/06/2024 20:39:40 04/06/20 24 04/06/2024 COMPR EHENS TAMI METAB OLIC PANEL glucose 122 mg/dL 74-106 high Not Available Sundar gore [address] [place], [address] 04/06/2024 20:39:40 04/06/20 24 04/06/2024 COMPR EHENS TAMI METAB OLIC PANEL BUN 14 mg/dL 7-18 normal Not Available Sundar gore [address] [place], [address] 04/06/2024 20:39:40 04/06/20 24 04/06/2024 COMPR EHENS TAMI METAB OLIC PANEL creatinine 1.4 mg/dL 0.70-1 .30 high Not Available [address] [place], [address] 04/06/2024 20:39:40 04/06/20 24 04/06/2024 COMPR EHENS TAMI METAB OLIC PANEL estimated GFR 57.90 mL/min /1.73m 2 The eGFR is calcu [...] young er-ag ed adult s. Not Available [address] [place], [address] 04/06/2024 20:39:40 04/06/20 24 04/06/2024 COMPR EHENS TAMI METAB OLIC PANEL total protein 6.1 g/dL 6.4-8. 2 low Not Available [address] [place] [place], [address] 04/06/2024 20:39:40 04/06/20 24 04/06/2024 COMPR EHENS TAMI METAB OLIC PANEL albumin 2.8 g/dL 3.4-5. 0 low Not Available [address] [place], [address] 04/06/2024 20:39:40 04/06/20 24 04/06/2024 COMPR EHENS TAMI METAB OLIC PANEL bilirubin, total 0.31 mg/dL 0.2-1. 0 normal Not Available [address] [place], [address] 04/06/2024 20:39:40 04/06/20 24 04/06/2024 COMPR EHENS TAMI METAB OLIC PANEL alk phos 101 U/L 46-116 normal Not Available [address] [place], [address] 04/06/2024 20:39:40 04/06/20 24 04/06/2024 COMPR EHENS TAMI METAB OLIC PANEL sodium 138 mmol/ L 136-14 5 normal Not Available [address] [place], [address] 04/06/2024 20:39:40 04/06/20 24 04/06/2024 COMPR EHENS TAMI METAB OLIC PANEL potassium 4.5 mmol/ L 3.5-5. 1 normal Not Available [address] [place], [address] 04/06/2024 20:39:40 04/06/20 24 04/06/2024 COMPR EHENS TAMI METAB OLIC PANEL chloride 103 mmol/ L 98-107 normal Not Available [address] [place], [address] 04/06/2024 20:39:40 04/06/20 24 04/06/2024 COMPR EHENS TAMI METAB OLIC PANEL CO2 30.4 mmol/ L 21.0-3 2.0 normal Not Available [address] [place], [address] 04/06/2024 20:39:40 04/06/20 24 04/06/2024 COMPR EHENS TAMI METAB OLIC PANEL anion gap 4.6 mmol/ L 3-11 normal Not Available [address] [place], [address] 04/06/2024 20:39:40 04/06/20 24 04/06/2024 COMPR EHENS TAMI METAB OLIC PANEL AST 33 U/L 15-37 normal Not Available Sundar gore [address] [place], [address] 04/06/2024 20:39:40 04/06/20 24 04/06/2024 COMPR EHENS TAMI METAB OLIC PANEL ALT 34 U/L 16-63 normal Not Available Sundar gore [address] [place], [address] 04/06/2024 20:39:40 04/06/20 24 04/07/2024 URINE CULTU RE urine culture Urine Cultu re ACTIO N ID AND SUSCE PTIBI LITY TO NOE W APPEA LORRI Gram Negat tami [place] COLON Y COUNT Not Available [address] [place], [address] 04/07/2024 11:31:40 04/06/20 24 04/07/2024 URINE CULTU RE urine culture colon ies/m L >100, 000 Day 1 Resul t ISOLA ALEXANDRA BELOW O:PRO SPE (ORGA NISM ID: [id number]) - PROTE US SPECI ES Urine Cultu re (ORGA NISM ID: 1.1) - COLON Y COUNT (ORGA NISM ID: 1.1) - >100, 000 Not Available [address] [place], [address] 04/07/2024 11:31:40 04/06/20 24 04/08/2024 URINE CULTU RE urine culture Urine Cultu re ACTIO N ID AND SUSCE PTIBI LITY TO JOANIEO W APPEA LORRI Gram Negat tami [place] APPEA LORRI Gram Negat tami [place] COLON Y COUNT Not Available [address] [place], [address] 04/08/2024 09:49:13 04/06/20 24 04/08/2024 URINE CULTU RE urine culture colon ies/m L >100, 000 COLON Y COUNT >100, 000 Day 1 Resul t ISOLA ALEXANDRA BELOW Day 2 Resul t ISOLA ALEXANDRA BELOW O:PRO SUDEEP (ORGA NISM ID: [id number]) - Prote us mirab ilis Urine Cultu re (ORGA NISM ID: 1.1) - COLON Y COUNT (ORGA NISM ID: 1.1) - >100, 000 ORGAN ISM ID: 1.1 ANTIB IOTIC INTER [...] zobac sargent S <=4 F Not Available [address] [place], [address] 04/08/2024 09:49:13 05/21/20 24 05/26/2024 BLOOD CULTU RE ( AGE => 9 YRS) blood culture ( age => 9 yrs) Blood Cultu re ( Age => 9 Yrs) NO GROWT H 120 HOURS Not Available [address] [place], [address] 05/26/2024 15:07:32 05/21/20 24 05/25/2024 BLOOD CULTU RE ( AGE => 9 YRS) blood culture ( age => 9 yrs) Blood Cultu re ( Age => 9 Yrs) NO GROWT H 96 HOURS Not Available [address] [place], [address] 05/25/2024 15:08:11 05/21/2005/24/2024 BLOOD CULTU RE ( AGE => 9 YRS) blood culture ( age => 9 yrs) Blood Cultu re ( Age => 9 Yrs) NO GROWT H 72 HOURS Not Available [address] [place], [address] 05/24/2024 15:09:06 05/21/2005/23/2024 BLOOD CULTU RE ( AGE => 9 YRS) blood culture ( age => 9 yrs) Blood Cultu re ( Age => 9 Yrs) NO GROWT H 48 HOURS Not Available [address] [place], [address] 05/23/2024 15:08:52 05/21/20 24 05/22/2024 BLOOD CULTU RE ( AGE => 9 YRS) blood culture ( age => 9 yrs) Blood Cultu re ( Age => 9 Yrs) NO GROWT H 24 HOURS Not Available [address] [place], [address] 05/22/2024 15:09:07 05/21/2005/26/2024 BLOOD CULTU RE ( AGE => 9 YRS) blood culture ( age => 9 yrs) Blood Cultu re ( Age => 9 Yrs) NO GROWT H 120 HOURS Not Available [address] [place], [address] 05/26/2024 14:36:30 05/21/2005/21/2024 PROCA LCITO SAMIR procalcitoni n < 0.1 [...] based solel y on proca lcito samir carie ntrat ions. A proca lcito samir carie [...] se, among other cause s. Not Available [address] [place], [address] 05/21/2024 14:11:09 05/21/2005/21/2024 LIPAS E lipase 25 U/L 16-77 normal Not Available Sundar gore [address] [place], [address] 05/21/2024 13:03:03 05/21/2005/21/2024 MAGNE SIUM magnesium 1.5 mg/dL 1.8-2. 4 low Not Available [address] [place], [address] 05/21/2024 13:03:02 05/21/2005/21/2024 CREAT INE KINAS E creatine kinase 150 U/L 39-308 normal Not Available [facility] [address] [facility] [place], [address] 05/21/2024 13:03:01 05/21/2005/21/2024 COMPR EHENS TAMI METAB OLIC PANEL calcium 9.0 mg/dL 8.5-10 .1 normal Not Available [address] [place], [address] 05/21/2024 13:03:00 05/21/2005/21/2024 COMPR EHENS TAMI METAB OLIC PANEL glucose 100 mg/dL 74-106 normal Not Available Sundar gore [address] [facility] [place], [address] 05/21/2024 13:03:00 05/21/2005/21/2024 COMPR EHENS TAMI METAB OLIC PANEL BUN 17 mg/dL 7-18 normal Not Available Sundar gore [address] [place], [address] 05/21/2024 13:03:00 05/21/2005/21/2024 COMPR EHENS TAMI METAB OLIC PANEL creatinine 1.3 mg/dL 0.70-1 .30 normal Not Available [address] [place], [address] 05/21/2024 13:03:00 05/21/2005/21/2024 COMPR EHENS TAMI METAB OLIC PANEL estimated GFR 63.28 mL/min /1.73M 2 The eGFR is calcu lated from [...] young er-ag ed adult s. Not Available [address] [place], [address] 05/21/2024 13:03:00 05/21/2005/21/2024 COMPR EHENS TAMI METAB OLIC PANEL total protein 7.1 g/dL 6.4-8. 2 normal Not Available [address] [place], [address] 05/21/2024 13:03:00 05/21/2005/21/2024 COMPR EHENS TAMI METAB OLIC PANEL albumin 3.4 g/dL 3.4-5. 0 normal Not Available [address] [place], [address] 05/21/2024 13:03:00 05/21/2005/21/2024 COMPR EHENS TAMI METAB OLIC PANEL bilirubin, total 0.54 mg/dL 0.2-1. 0 normal Not Available [address] [place], [address] 05/21/2024 13:03:00 05/21/2005/21/2024 COMPR EHENS TAMI METAB OLIC PANEL alk phos 114 U/L 46-116 normal Not Available [address] [place], [address] 05/21/2024 13:03:00 05/21/2005/21/2024 COMPR EHENS TAMI METAB OLIC PANEL sodium 134 mmol/ L 136-14 5 low Not Available [address] [place], [address] 05/21/2024 13:03:00 05/21/2005/21/2024 COMPR EHENS TAMI METAB OLIC PANEL potassium 4.0 mmol/ L 3.5-5. 1 normal Not Available [address] [place], [address] 05/21/2024 13:03:00 05/21/2005/21/2024 COMPR EHENS TAMI METAB OLIC PANEL chloride 99 mmol/ L 98-107 normal Not Available [address] [place], [address] 05/21/2024 13:03:00 05/21/2005/21/2024 COMPR EHENS TAMI METAB OLIC PANEL CO2 26.4 mmol/ L 21.0-3 2.0 normal Not Available [address] [place], [address] 05/21/2024 13:03:00 05/21/2005/21/2024 COMPR EHENS TAMI METAB OLIC PANEL anion gap 8.6 mmol/ L 3-11 normal Not Available [address] [place], [address] 05/21/2024 13:03:00 05/21/2005/21/2024 COMPR EHENS TAMI METAB OLIC PANEL AST 20 U/L 15-37 normal Not Available Sundar gore [address] [place], [address] 05/21/2024 13:03:00 05/21/2005/21/2024 COMPR EHENS TAMI METAB OLIC PANEL ALT 40 U/L 16-63 normal Not Available Sundar gore [address] [place], [address] 05/21/2024 13:03:00 05/21/2005/21/2024 LACTA TE lactate 1.8 mmol/ L 0.6-1. 4 high Not Available [address] [place], [address] 05/21/2024 12:43:55 05/21/2005/21/2024 COMPL ETE BLOOD COUNT W/DIF F WBC 13.97 10_3/ uL 4.4-10 .8 high Not Available [address] [place], [address] 05/21/2024 12:41:54 05/21/2005/21/2024 COMPL ETE BLOOD COUNT W/DIF F RBC 5.41 10_6/ uL 4.36-5 .78 normal Not Available [address] [place], [address] 05/21/2024 12:41:54 05/21/2005/21/2024 COMPL ETE BLOOD COUNT W/DIF F HGB 15.4 g/dL 13.5-1 7.5 normal Not Available [address] [facility] [place], [address] 05/21/2024 12:41:54 05/21/2005/21/2024 COMPL ETE BLOOD COUNT W/DIF F HCT 46.7 % 40.0-5 0.0 normal Not Available [address] [place], [address] 05/21/2024 12:41:54 05/21/2005/21/2024 COMPL ETE BLOOD COUNT W/DIF F MCV 86 fL 80-95 normal Not Available Sundar [address] [facility] [place], [address] 05/21/2024 12:41:54 05/21/2005/21/2024 COMPL ETE BLOOD COUNT W/DIF F MCH 28.5 pg 27.0-3 3.0 normal Not Available [address] [place], [address] 05/21/2024 12:41:54 05/21/2005/21/2024 COMPL ETE BLOOD COUNT W/DIF F MCHC 33.0 % 32.0-3 6.0 normal Not Available [address] [place], [address] 05/21/2024 12:41:54 05/21/2005/21/2024 COMPL ETE BLOOD COUNT W/DIF F RDW 13.2 % 11.8-1 4.1 normal Not Available [address] [place], [address] 05/21/2024 12:41:54 05/21/2005/21/2024 COMPL ETE BLOOD COUNT W/DIF F platelet count 239 10_3/ uL 130-40 0 normal Not Available [address] [place], [address] 05/21/2024 12:41:54 05/21/2005/21/2024 COMPL ETE BLOOD COUNT W/DIF F MPV 10.0 fL 8.0-11 .0 normal Not Available [address] [place], [address] 05/21/2024 12:41:54 05/21/2005/21/2024 COMPL ETE BLOOD COUNT W/DIF F neutrophils % 87.8 % Not Available [address] [place], [address] 05/21/2024 12:41:54 05/21/2005/21/2024 COMPL ETE BLOOD COUNT W/DIF F lymphocytes % 5.7 % Not Available [address] [place], [address] 05/21/2024 12:41:54 05/21/2005/21/2024 COMPL ETE BLOOD COUNT W/DIF F monocytes % 5.0 % Not Available [address] [place], [address] 05/21/2024 12:41:54 05/21/2005/21/2024 COMPL ETE BLOOD COUNT W/DIF F eosinophils % 0.7 % Not Available [address] [place], [address] 05/21/2024 12:41:54 05/21/2005/21/2024 COMPL ETE BLOOD COUNT W/DIF F basophils % 0.4 % Not Available [address] [place], [address] 05/21/2024 12:41:54 05/21/2005/21/2024 COMPL ETE BLOOD COUNT W/DIF F immature grans % 0.4 % Not Available [address] [facility] [place], [address] 05/21/2024 12:41:54 05/21/2005/21/2024 COMPL ETE BLOOD COUNT W/DIF F nucleated RBC 0.0 % 0.0-0. 3 normal Not Available [address] [place], [address] 05/21/2024 12:41:54 05/21/2005/21/2024 COMPL ETE BLOOD COUNT W/DIF F absolute neutrophil count 12.27 10_3/ uL 1.2-6. 7 high Not Available [address] [facility] [place], [address] 05/21/2024 12:41:54 05/21/2005/21/2024 COMPL ETE BLOOD COUNT W/DIF F absolute lymphocyte count 0.80 10_3/ uL 1.2-3. 4 low Not Available [address] [place], [address] 05/21/2024 12:41:54 05/21/2005/21/2024 COMPL ETE BLOOD COUNT W/DIF F absolute monocyte count 0.70 10_3/ uL 0.1-0. 8 normal Not Available [address] [place], [address] 05/21/2024 12:41:54 05/21/2005/21/2024 COMPL ETE BLOOD COUNT W/DIF F absolute eosinophil count 0.10 10_3/ uL 0.0-0. 7 normal Not Available [address] [place], [address] 05/21/2024 12:41:54 05/21/2005/21/2024 COMPL ETE BLOOD COUNT W/DIF F absolute basophil count 0.06 10_3/ uL 0.0-0. 2 normal Not Available [address] [place], [address] 05/21/2024 12:41:54 05/21/2005/25/2024 BLOOD CULTU RE ( AGE => 9 YRS) blood culture ( age => 9 yrs) Blood Cultu re ( Age => 9 Yrs) NO GROWT H 96 HOURS Not Available [address] [place], [address] 05/25/2024 14:36:58 05/21/2005/24/2024 BLOOD CULTU RE ( AGE => 9 YRS) blood culture ( age => 9 yrs) Blood Cultu re ( Age => 9 Yrs) NO GROWT H 72 HOURS Not Available [address] [place], [address] 05/24/2024 14:38:02 05/21/2005/23/2024 BLOOD CULTU RE ( AGE => 9 YRS) blood culture ( age => 9 yrs) Blood Cultu re ( Age => 9 Yrs) NO GROWT H 48 HOURS Not Available [address] [place], [address] 05/23/2024 14:36:46 05/21/2005/22/2024 BLOOD CULTU RE ( AGE => 9 YRS) blood culture ( age => 9 yrs) Blood Cultu re ( Age => 9 Yrs) NO GROWT H 24 HOURS Not Available [address] [place], [address] 05/22/2024 14:37:57 05/21/2005/23/2024 URINE CULTU RE urine culture Urine Cultu re ACTIO N ID AND SUSCE PTIBI LITY TO FOLLO W APPEA LORRI Gram Negat tami [place] APPEA LORRI Gram Negat tami [place] COLON Y COUNT Not Available [address] [place], [address] 05/23/2024 07:56:22 05/21/2005/23/2024 URINE CULTU RE urine culture colon ies/m L 50,00 0 - 100,0 00 COLON Y COUNT 50,00 0 - 100,0 00 Day 1 Resul t ISOLA ALEXANDRA BELOW Day 2 Resul t ISOLA ALEXANDRA BELOW O:PRO SUDEEP (ORGA NISM ID: 1.1) - Prote us mirab ilis Urine Cultu re (ORGA NISM ID: 1.1) - COLON Y COUNT (ORGA NISM ID: 1.1) - 50,00 0 - 100,0 00 ORGAN ISM ID: 1.1 ANTIB IOTIC INTER PRETA TION NEELIMA STATU S Ampic illin S <=2 F Ampic illin /Sulb actam S <=2 F Cefaz annalisa S 8 F Cefta zidim e S <=1 F CEFTR IAXON E S <= 1 F Cipro floxa phyllis S <=0.2 5 F Genta micin S <=1 F Nitro furan toin R 128 F Tobra mycin S <=1 F Trime thopr im/Bravo lfame thoxa zole S <=20 F Piper acill in/Ta zobac sargent S <=4 F Not Available [address] [place], [address] 05/23/2024 07:56:22 05/21/2005/21/2024 MICRO SCOPI C FINDI NGS WBC Negati ve hpf 0-5 Not Available [address] [place], [address] 05/21/2024 12:34:54 05/21/20 24 05/21/2024 MICRO SCOPI C FINDI NGS RBC Negati ve hpf 0-2 Not Available [address] [place], [address] 05/21/2024 12:34:54 05/21/2005/21/2024 MICRO SCOPI C FINDI NGS epithelial cells Many hpf negati ve Not Available [address] [facility] [place], [address] 05/21/2024 12:34:54 05/21/20 24 05/21/2024 MICRO SCOPI C FINDI NGS bacteria Few hpf negati ve Not Available [address] [facility] [place], [address] 05/21/2024 12:34:54 05/21/2005/21/2024 MICRO SCOPI C FINDI NGS crystals Negati ve hpf negati ve Not Available [address] [place], [address] 05/21/2024 12:34:54 05/21/2005/21/2024 MICRO SCOPI C FINDI NGS mucus Modera te negati ve Not Available [address] [facility] [place], [address] 05/21/2024 12:34:54 05/21/2005/21/2024 MICRO SCOPI C FINDI NGS casts 0-2 Hyalin e lpf negati ve Not Available [address] [facility] [place], [address] 05/21/2024 12:34:54 05/21/2005/21/2024 MICRO SCOPI C FINDI NGS C S indicated? No Not Available [address] [place], [address] 05/21/2024 12:34:54 05/21/2005/21/2024 URINA LYSIS color Yellow yellow Not Available Sundar gore [address] [place], [address] 05/21/2024 12:34:53 05/21/2005/21/2024 URINA LYSIS clarity Sl Cloudy clear Not Available Gurdeep graf [address] [facility] [place], [address] 05/21/2024 12:34:53 05/21/2005/21/2024 URINA LYSIS specific gravity >= 1.030 1.005- 1.025 high Not Available [address] [place], [address] 05/21/2024 12:34:53 05/21/2005/21/2024 URINA LYSIS pH 5.5 5-8 normal Not Available Sundar gore [address] [place], [address] 05/21/2024 12:34:53 05/21/2005/21/2024 URINA LYSIS leukocyte esterase Negati ve negati ve Not Available [address] [place], [address] 05/21/2024 12:34:53 05/21/2005/21/2024 URINA LYSIS nitrite Negati ve negati ve Not Available [address] [place], [address] 05/21/2024 12:34:53 05/21/2005/21/2024 URINA LYSIS protein 30 mg/dL neg-tr cheryl abnormal Not Available [address] [place], [address] 05/21/2024 12:34:53 05/21/2005/21/2024 URINA LYSIS glucose Negati ve mg/dL negati ve Not Available [address] [place], [address] 05/21/2024 12:34:53 05/21/2005/21/2024 URINA LYSIS ketones 80 mg/dL negati ve abnormal Not Available [address] [place], [address] 05/21/2024 12:34:53 05/21/2005/21/2024 URINA LYSIS urobilinogen 0.2 mg/dL up to 0.2 Not Available [address] [place], [address] 05/21/2024 12:34:53 05/21/2005/21/2024 URINA LYSIS bilirubin Small negati ve abnormal Not Available [address] [place], [address] 05/21/2024 12:34:53 05/21/2005/21/2024 URINA LYSIS blood Negati ve negati ve Not Available [address] [place], [address] 05/21/2024 12:34:53 05/21/2005/21/2024 URINA LYSIS color Yellow yellow Not Available Sundar gore [address] [place], [address] 05/21/2024 12:32:52 05/21/2005/21/2024 URINA LYSIS clarity Sl Cloudy clear Not Available Gurdeep graf [address] [place], [address] 05/21/2024 12:32:52 05/21/2005/21/2024 URINA LYSIS specific gravity >= 1.030 1.005- 1.025 high Not Available [address] [place], [address] 05/21/2024 12:32:52 05/21/2005/21/2024 URINA LYSIS pH 5.5 5-8 normal Not Available Sundar gore [address] [place], [address] 05/21/2024 12:32:52 05/21/2005/21/2024 URINA LYSIS leukocyte esterase Negati ve negati ve Not Available [address] [place], [address] 05/21/2024 12:32:52 05/21/2005/21/2024 URINA LYSIS nitrite Negati ve negati ve Not Available [address] [place], [address] 05/21/2024 12:32:52 05/21/2005/21/2024 URINA LYSIS protein 30 mg/dL neg-tr cheryl abnormal Not Available [address] [place], [address] 05/21/2024 12:32:52 05/21/2005/21/2024 URINA LYSIS glucose Negati ve mg/dL negati ve Not Available [address] [place], [address] 05/21/2024 12:32:52 05/21/2005/21/2024 URINA LYSIS ketones 80 mg/dL negati ve abnormal Not Available [address] [place], [address] 05/21/2024 12:32:52 05/21/2005/21/2024 URINA LYSIS urobilinogen 0.2 mg/dL up to 0.2 Not Available [address] [place], [address] 05/21/2024 12:32:52 05/21/2005/21/2024 URINA LYSIS bilirubin Small negati ve abnormal Not Available [address] [place], [address] 05/21/2024 12:32:52 05/21/2005/21/2024 URINA LYSIS blood Negati ve negati ve Not Available [address] [facility] [place], [address] 05/21/2024 12:32:52 05/21/20 24 05/22/2024 URINE CULTU RE urine culture Urine Cultu re ACTIO N ID AND SUSCE PTIBI LITY TO FOLLO W APPEA LORRI Gram Negat tami [place] COLON Y COUNT Not Available [address] [place], [address] 05/22/2024 12:10:19 05/21/2005/22/2024 URINE CULTU RE urine culture colon ies/m L 50,00 0 - 100,0 00 Day 1 Resul t ISOLA ALEXANDRA BELOW O:PRO SPE (ORGA NISM ID: 1.1) - PROTE US SPECI ES Urine Cultu re (ORGA NISM ID: 1.1) - COLON Y COUNT (ORGA NISM ID: 1.1) - 50,00 0 - 100,0 00 Not Available [address] [facility] [place], [address] 05/22/2024 12:10:19 08/10/1908/10/2024 LACTA TE lactate 1.1 mmol/ L 0.6-1. 4 normal Not Available [address] [place], [address] 08/10/2024 21:56:57 08/10/1908/10/2024 TROPO SAMIR I troponin I 12 NG/L <or=76 An eleva leidy/a bnorm al tropo samir value above 51ng/ L for Femal e and above 76ng/ L for Male( which is the 99th perce ntile cutof f of a dorita l, healt hy refer ence popul ation ) must be inter prete d in the yuko xt of the clini kristine prese ntati on. Clini kristine and labor atory corre latio n is requi red to evalu ate for an acute myoca rdial infar ction . The resul ts of this assay can be false ly lower ed due to the consu mptio n of Bioti n (Nida min B7). Not Available [address] [place], [address] 08/10/2024 21:06:51 08/10/19 25 08/10/2024 TROPO SAMIR I troponin I 12 NG/L <or=76 An eleva leidy/a bnorm al tropo samir value above 51ng/ L for Femal e and above 76ng/ L for Male( which is the 99th perce ntile cutof f of a dorita l, healt hy refer ence popul ation ) must be inter prete d in the yuko xt of the clini kristine prese ntati on. Clini kristine and labor atory corre latio n is requi red to evalu ate for an acute myoca rdial infar ction . The resul ts of this assay can be false ly lower ed due to the consu mptio n of Bioti n (Nida min B7). Not Available [address] [facility] [place], [address] 08/10/2024 18:24:39 08/10/19 25 08/10/2024 MICRO SCOPI C FINDI NGS WBC >50 hpf 0-5 abnormal WBC's obscu re micro scopi c exam. Not Available [address] [facility] [place], [address] 08/10/2024 17:50:37 08/10/19 25 08/10/2024 MICRO SCOPI C FINDI NGS RBC TNP hpf 0-2 Not Available Sundar gore [address] [facility] [place], [address] 08/10/2024 17:50:37 08/10/19 25 08/10/2024 MICRO SCOPI C FINDI NGS epithelial cells TNP hpf negati ve Not Available [address] [facility] [place], [address] 08/10/2024 17:50:37 08/10/19 25 08/10/2024 MICRO SCOPI C FINDI NGS bacteria TNP hpf negati ve Not Available [address] [place], [address] 08/10/2024 17:50:37 08/10/19 25 08/10/2024 MICRO SCOPI C FINDI NGS crystals TNP hpf negati ve Not Available [address] [place], [address] 08/10/2024 17:50:37 08/10/19 25 08/10/2024 MICRO SCOPI C FINDI NGS mucus TNP negati ve Not Available [address] [place], [address] 08/10/2024 17:50:37 08/10/19 25 08/10/2024 MICRO SCOPI C FINDI NGS casts TNP lpf negati ve Not Available [address] [place], [address] 08/10/2024 17:50:37 08/10/19 25 08/10/2024 MICRO SCOPI C FINDI NGS C S indicated? Yes Not Available [address] [facility] [place], [address] 08/10/2024 17:50:37 08/10/19 25 08/10/2024 URINA LYSIS color Yellow yellow Not Available Sundar gore [address] [place], [address] 08/10/2024 17:50:37 08/10/19 25 08/10/2024 URINA LYSIS clarity Cloudy clear Not Available [facility] [address] [place], [id number] 08/10/2024 17:50:37 08/10/19 25 08/10/2024 URINA LYSIS specific gravity 1.025 1.005- 1.025 normal Not Available [address] [place], [address] 08/10/2024 17:50:37 08/10/19 25 08/10/2024 URINA LYSIS pH 7.0 5-8 normal Not Available [facility] [address] [place], [address] 08/10/2024 17:50:37 08/10/19 25 08/10/2024 URINA LYSIS leukocyte esterase Modera te negati ve abnormal Not Available [address] [place], [id number] 08/10/2024 17:50:37 08/10/19 25 08/10/2024 URINA LYSIS nitrite Positi ve negati ve abnormal Not Available [address] [place], [id number] 08/10/2024 17:50:37 08/10/19 25 08/10/2024 URINA LYSIS protein >=300 mg/dL neg-tr cheryl abnormal Not Available [address] [place], [address] 08/10/2024 17:50:37 08/10/19 25 08/10/2024 URINA LYSIS glucose Negati ve mg/dL negati ve Not Available [address] [place], [address] 08/10/2024 17:50:37 08/10/19 25 08/10/2024 URINA LYSIS ketones 15 mg/dL negati ve abnormal Not Available [address] [place], [address] 08/10/2024 17:50:37 08/10/19 25 08/10/2024 URINA LYSIS urobilinogen 0.2 mg/dL up to 0.2 Not Available [address] [place], [id number] 08/10/2024 17:50:37 08/10/19 25 08/10/2024 URINA LYSIS bilirubin Negati ve negati ve Not Available [address] [place], [address] 08/10/2024 17:50:37 08/10/19 25 08/10/2024 URINA LYSIS blood Modera te negati ve abnormal Not Available [address] [place], [address] 08/10/2024 17:50:37 08/10/19 25 08/10/2024 URINA LYSIS color Yellow yellow Not Available [facility] [address] [place], [id number] 08/10/2024 17:44:38 08/10/19 25 08/10/2024 URINA LYSIS clarity Cloudy clear Not Available [facility] [address] [place], [address] 08/10/2024 17:44:38 08/10/19 25 08/10/2024 URINA LYSIS specific gravity 1.025 1.005- 1.025 normal Not Available [address] [place], [address] 08/10/2024 17:44:38 08/10/19 25 08/10/2024 URINA LYSIS pH 7.0 5-8 normal Not Available Sundar gore [address] [place], [address] 08/10/2024 17:44:38 08/10/19 25 08/10/2024 URINA LYSIS leukocyte esterase Modera te negati ve abnormal Not Available [address] [place], [address] 08/10/2024 17:44:38 08/10/19 25 08/10/2024 URINA LYSIS nitrite Positi ve negati ve abnormal Not Available [address] [place], [address] 08/10/2024 17:44:38 08/10/19 25 08/10/2024 URINA LYSIS protein >=300 mg/dL neg-tr cheryl abnormal Not Available [address] [place], [address] 08/10/2024 17:44:38 08/10/19 25 08/10/2024 URINA LYSIS glucose Negati ve mg/dL negati ve Not Available [address] [place], [address] 08/10/2024 17:44:38 08/10/19 25 08/10/2024 URINA LYSIS ketones 15 mg/dL negati ve abnormal Not Available [address] [place], [address] 08/10/2024 17:44:38 08/10/19 25 08/10/2024 URINA LYSIS urobilinogen 0.2 mg/dL up to 0.2 Not Available [address] [place], [address] 08/10/2024 17:44:38 08/10/19 25 08/10/2024 URINA LYSIS bilirubin Negati ve negati ve Not Available [address] [place], [address] 08/10/2024 17:44:38 08/10/19 25 08/10/2024 URINA LYSIS blood Modera te negati ve abnormal Not Available [address] [place], [address] 08/10/2024 17:44:38 08/10/19 25 08/10/2024 MICRO SCOPI C FINDI NGS C S indicated? Yes Not Available [address] [place], [address] 08/10/2024 17:45:37 08/10/19 25 08/10/2024 URINA LYSIS color Yellow yellow Not Available Sundar [address] [place], [address] 08/10/2024 17:45:36 08/10/19 25 08/10/2024 URINA LYSIS clarity Cloudy clear Not Available Sundar [address] [place], [address] 08/10/2024 17:45:36 08/10/19 25 08/10/2024 URINA LYSIS specific gravity 1.025 1.005- 1.025 normal Not Available [address] [place], [address] 08/10/2024 17:45:36 08/10/19 25 08/10/2024 URINA LYSIS pH 7.0 5-8 normal Not Available Sundar [address] [place], [address] 08/10/2024 17:45:36 08/10/19 25 08/10/2024 URINA LYSIS leukocyte esterase Modera te negati ve abnormal Not Available [address] [place], [address] 08/10/2024 17:45:36 08/10/19 25 08/10/2024 URINA LYSIS nitrite Positi ve negati ve abnormal Not Available [address] [place], [address] 08/10/2024 17:45:36 08/10/19 25 08/10/2024 URINA LYSIS protein >=300 mg/dL neg-tr cheryl abnormal Not Available [address] [place], [address] 08/10/2024 17:45:36 08/10/19 25 08/10/2024 URINA LYSIS glucose Negati ve mg/dL negati ve Not Available [address] [place], [address] 08/10/2024 17:45:36 08/10/19 25 08/10/2024 URINA LYSIS ketones 15 mg/dL negati ve abnormal Not Available [address] [place], [address] 08/10/2024 17:45:36 08/10/19 25 08/10/2024 URINA LYSIS urobilinogen 0.2 mg/dL up to 0.2 Not Available [address] [place], [address] 08/10/2024 17:45:36 08/10/19 25 08/10/2024 URINA LYSIS bilirubin Negati ve negati ve Not Available [address] [place], [address] 08/10/2024 17:45:36 08/10/19 25 08/10/2024 URINA LYSIS blood Modera te negati ve abnormal Not Available [address] [place], [address] 08/10/2024 17:45:36 08/10/19 25 08/10/2024 COMPL ETE BLOOD COUNT W/DIF F WBC 19.52 10_3/ uL 4.4-10 .8 high Not Available [address] [place], [address] 08/10/2024 17:24:32 08/10/19 25 08/10/2024 COMPL ETE BLOOD COUNT W/DIF F RBC 4.93 10_6/ uL 4.36-5 .78 normal Not Available [address] [place], [address] 08/10/2024 17:24:32 08/10/19 25 08/10/2024 COMPL ETE BLOOD COUNT W/DIF F HGB 14.2 g/dL 13.5-1 7.5 normal Not Available [address] [place], [address] 08/10/2024 17:24:32 08/10/19 25 08/10/2024 COMPL ETE BLOOD COUNT W/DIF F HCT 43.2 % 40.0-5 0.0 normal Not Available [address] [place], [address] 08/10/2024 17:24:32 08/10/19 25 08/10/2024 COMPL ETE BLOOD COUNT W/DIF F MCV 88 fL 80-95 normal Not Available [address] [place], [address] 08/10/2024 17:24:32 08/10/19 25 08/10/2024 COMPL ETE BLOOD COUNT W/DIF F MCH 28.8 pg 27.0-3 3.0 normal Not Available [address] [place], [address] 08/10/2024 17:24:32 08/10/19 25 08/10/2024 COMPL ETE BLOOD COUNT W/DIF F MCHC 32.9 % 32.0-3 6.0 normal Not Available [address] [place], [address] 08/10/2024 17:24:32 08/10/19 25 08/10/2024 COMPL ETE BLOOD COUNT W/DIF F RDW 13.5 % 11.8-1 4.1 normal Not Available [address] [place], [address] 08/10/2024 17:24:32 08/10/19 25 08/10/2024 COMPL ETE BLOOD COUNT W/DIF F platelet count 170 10_3/ uL 130-40 0 normal Not Available [address] [place], [address] 08/10/2024 17:24:32 08/10/19 25 08/10/2024 COMPL ETE BLOOD COUNT W/DIF F MPV 11.2 fL 8.0-11 .0 high Not Available [address] [place], [address] 08/10/2024 17:24:32 08/10/19 25 08/10/2024 COMPL ETE BLOOD COUNT W/DIF F neutrophils % 92.0 % --- 08/10 --- COR RECTE D REPOR T-N euts % previ ously repor leidy as: 56.6 % Corre cted Resul ts keenan d to and read back from [facility] 08/10 at 1720 by LAB.J ENK Not Available [address] [place], [address] 08/10/2024 17:24:32 08/10/19 25 08/10/2024 COMPL ETE BLOOD COUNT W/DIF F bands % 1 % Not Available Sundar gore [address] [place], [address] 08/10/2024 17:24:32 08/10/19 25 08/10/2024 COMPL ETE BLOOD COUNT W/DIF F lymphocytes % 1.0 % --- 08/10 --- COR RECTE D REPOR T-L ymphs % previ ously repor leidy as: 1.2 % Corre cted Resul ts keenan d to and read back from [facility] 08/10 at 1720 by LAB.J ENK Not Available [address] [place], [address] 08/10/2024 17:24:32 08/10/19 25 08/10/2024 COMPL ETE BLOOD COUNT W/DIF F monocytes % 6.0 % --- 08/10 --- COR RECTE D REPOR T-M onos % previ ously repor leidy as: 3.6 % Corre cted Resul ts keenan d to and read back from [facility] 08/10 at 1720 by LAB.J ENK Not Available [address] [place], [address] 08/10/2024 17:24:32 08/10/19 25 08/10/2024 COMPL ETE BLOOD COUNT W/DIF F eosinophils % 0.0 % --- 08/10 --- COR RECTE D REPOR T-E os % previ ously repor leidy as: 37.7 % Corre cted Resul ts keenan d to and read back from [facility] 08/10 at 1720 by LAB.J ENK Not Available [address] [place], [address] 08/10/2024 17:24:32 08/10/19 25 08/10/2024 COMPL ETE BLOOD COUNT W/DIF F basophils % 0.0 % --- 08/10 --- COR RECTE D REPOR T-B asos % previ ously repor leidy as: 0.3 % Corre cted Resul ts keenan d to and read back from [facility] 08/10 at 1720 by LAB.J ENK Not Available [address] [place], [address] 08/10/2024 17:24:32 08/10/19 25 08/10/2024 COMPL ETE BLOOD COUNT W/DIF F immature grans % 0.0 % --- 08/10 --- COR RECTE D REPOR T-I mmatu re Grans % previ ously repor leidy as: 0.6 % Corre cted Resul ts keenan d to and read back from [facility] 08/10 at 1720 by LAB.J ENK Not Available [address] [place], [address] 08/10/2024 17:24:32 08/10/19 25 08/10/2024 COMPL ETE BLOOD COUNT W/DIF F nucleated RBC 0.0 % 0.0-0. 3 normal Not Available [address] [place], [address] 08/10/2024 17:24:32 08/10/19 25 08/10/2024 COMPL ETE BLOOD COUNT W/DIF F absolute neutrophil count 18.15 10_3/ uL 1.2-6. 7 high --- 08/10 --- COR RECTE D REPOR T-A NC previ ously repor leidy as: 11.05 H 10 3/uL Corre cted Resul ts keenan d to and read back from [facility] 08/10 at 1720 by LAB.J ENK Not Available [address] [place], [address] 08/10/2024 17:24:32 08/10/19 25 08/10/2024 COMPL ETE BLOOD COUNT W/DIF F absolute lymphocyte count 0.20 10_3/ uL 1.2-3. 4 low --- 08/10 172 --- COR RECTE D REPOR T-A LYC previ ously repor leidy as: 0.23 L 10 3/uL Corre cted Resul ts keenan d to and read back from [facility] 08/10 at 1720 by LAB.J ENK Not Available [address] [place], [address] 08/10/2024 17:24:32 08/10/19 25 08/10/2024 COMPL ETE BLOOD COUNT W/DIF F absolute monocyte count 1.17 10_3/ uL 0.1-0. 8 high --- 08/10 172 --- COR RECTE D REPOR T-A MC previ ously repor leidy as: 0.70 10 3/uL Corre cted Resul ts keenan d to and read back from [facility] 08/10 at 1720 by LAB.J ENK Not Available [address] [place], [address] 08/10/2024 17:24:32 08/10/19 25 08/10/2024 COMPL ETE BLOOD COUNT W/DIF F absolute eosinophil count 0.00 10_3/ uL 0.0-0. 7 normal --- 08/10 --- COR RECTE D REPOR T-A EC previ ously repor leidy as: 7.36 H 10 3/uL Corre cted Resul ts keenan d to and read back from [facility] 08/10 at 1720 by LAB.J ENK Not Available [address] [place], [address] 08/10/2024 17:24:32 08/10/19 25 08/10/2024 COMPL ETE BLOOD COUNT W/DIF F absolute basophil count 0.00 10_3/ uL 0.0-0. 2 normal --- 08/10 1722 --- COR RECTE D REPOR T-A BC previ ously repor leidy as: 0.06 10 3/uL Corre cted Resul ts keenan d to and read back from [facility] 08/10 at 1720 by LAB.J ENK Not Available [address] [place], [address] 08/10/2024 17:24:32 08/10/19 25 08/10/2024 COMPL ETE BLOOD COUNT W/DIF F diff comment Manual Differ ential Not Available [address] [place], [address] 08/10/2024 17:24:32 08/10/19 25 08/10/2024 COMPL ETE BLOOD COUNT W/DIF F RBC morphology Normal Not Available [address] [place], [address] 08/10/2024 17:24:32 08/10/19 25 08/10/2024 PROCA LCITO SAMIR procalcitoni n 3.57 NG/mL PCT Value (ng/m L): Inter preta tion: <0.5 Low risk for sever e sepsi s/sep tic shock >or=0 .5 and <2.0 Sever e sepsi s/sep tic shock is possi ble >or=2 .0 High risk for sever e sepsi s/sep tic shock Note: Decis ions regar ding antib iotic thera py shoul d NOT be based solel y on proca lcito samir carie ntrat ions. A proca lcito samir carie [...] se, among other cause s. Not Available [address] [place], [address] 08/10/2024 17:42:37 08/10/1908/10/2024 TROPO SAMIR I troponin I 14 NG/L <or=76 An eleva leidy/a bnorm al tropo samir value above 51ng/ L for Femal e and above 76ng/ L for Male( which is the 99th perce ntile cutof f of a dorita l, healt hy refer ence popul ation ) must be inter prete d in the yuko xt of the clini kristine prese ntati on. Clini kristine and labor atory corre latio n is requi red to evalu ate for an acute myoca rdial infar ction . The resul ts of this assay can be false ly lower ed due to the consu mptio n of Bioti n (Nida min B7). Not Available [address] [place], [address] 08/10/2024 17:26:33 08/10/1908/10/2024 MAGNE SIUM magnesium 1.2 mg/dL 1.8-2. 4 low Not Available [address] [place], [address] 08/10/2024 17:26:33 08/10/1908/10/2024 COMPR EHENS TAMI METAB OLIC PANEL calcium 8.6 mg/dL 8.5-10 .1 normal Not Available [address] [place], [address] 08/10/2024 17:26:32 08/10/19 25 08/10/2024 COMPR EHENS TAMI METAB OLIC PANEL glucose 127 mg/dL 74-106 high Not Available Sundar gore [address] [place], [address] 08/10/2024 17:26:32 08/10/19 25 08/10/2024 COMPR EHENS TAMI METAB OLIC PANEL BUN 15 mg/dL 7-18 normal Not Available Sundar gore [address] [place], [address] 08/10/2024 17:26:32 08/10/19 25 08/10/2024 COMPR EHENS TAMI METAB OLIC PANEL creatinine 1.3 mg/dL 0.70-1 .30 normal Not Available [address] [place], [address] 08/10/2024 17:26:32 08/10/19 25 08/10/2024 COMPR EHENS TAMI METAB OLIC PANEL estimated GFR 63.28 mL/min /1.73M 2 The eGFR is calcu lated from [...] young er-ag ed adult s. Not Available [address] [place], [address] 08/10/2024 17:26:32 08/10/19 25 08/10/2024 COMPR EHENS TAMI METAB OLIC PANEL total protein 6.9 g/dL 6.4-8. 2 normal Not Available [address] [place], [address] 08/10/2024 17:26:32 08/10/19 25 08/10/2024 COMPR EHENS TAMI METAB OLIC PANEL albumin 3.1 g/dL 3.4-5. 0 low Not Available [address] [place], [address] 08/10/2024 17:26:32 08/10/19 25 08/10/2024 COMPR EHENS TAMI METAB OLIC PANEL bilirubin, total 0.54 mg/dL 0.2-1. 0 normal Not Available [address] [place], [address] 08/10/2024 17:26:32 08/10/19 25 08/10/2024 COMPR EHENS TAMI METAB OLIC PANEL alk phos 113 U/L 46-116 normal Not Available [address] [place], [address] 08/10/2024 17:26:32 08/10/19 25 08/10/2024 COMPR EHENS TAMI METAB OLIC PANEL sodium 138 mmol/ L 136-14 5 normal Not Available [address] [place], [address] 08/10/2024 17:26:32 08/10/19 25 08/10/2024 COMPR EHENS TAMI METAB OLIC PANEL potassium 3.8 mmol/ L 3.5-5. 1 normal Not Available [address] [place], [address] 08/10/2024 17:26:32 08/10/19 25 08/10/2024 COMPR EHENS TAMI METAB OLIC PANEL chloride 101 mmol/ L 98-107 normal Not Available [address] [place], [address] 08/10/2024 17:26:32 08/10/19 25 08/10/2024 COMPR EHENS TAMI METAB OLIC PANEL CO2 28.8 mmol/ L 21.0-3 2.0 normal Not Available [address] [place], [address] 08/10/2024 17:26:32 08/10/19 25 08/10/2024 COMPR EHENS TAMI METAB OLIC PANEL anion gap 8.2 mmol/ L 3-11 normal Not Available [address] [place], [address] 08/10/2024 17:26:32 08/10/19 25 08/10/2024 COMPR EHENS TAMI METAB OLIC PANEL AST 13 U/L 15-37 low Not Available Sundar gore [address] [place], [address] 08/10/2024 17:26:32 08/10/19 25 08/10/2024 COMPR EHENS TAMI METAB OLIC PANEL ALT 19 U/L 16-63 normal Not Available Sundar gore [address] [place], [address] 08/10/2024 17:26:32 08/10/19 25 08/10/2024 COMPL ETE BLOOD COUNT W/DIF F WBC 19.52 10_3/ uL 4.4-10 .8 high Not Available [address] [place], [address] 08/10/2024 17:12:31 08/10/19 25 08/10/2024 COMPL ETE BLOOD COUNT W/DIF F RBC 4.93 10_6/ uL 4.36-5 .78 normal Not Available [address] [place], [address] 08/10/2024 17:12:31 08/10/19 25 08/10/2024 COMPL ETE BLOOD COUNT W/DIF F HGB 14.2 g/dL 13.5-1 7.5 normal Not Available [address] [place], [address] 08/10/2024 17:12:31 08/10/19 25 08/10/2024 COMPL ETE BLOOD COUNT W/DIF F HCT 43.2 % 40.0-5 0.0 normal Not Available [address] [place], [address] 08/10/2024 17:12:31 08/10/19 25 08/10/2024 COMPL ETE BLOOD COUNT W/DIF F MCV 88 fL 80-95 normal Not Available Sundar gore [address] [place], [address] 08/10/2024 17:12:31 08/10/19 25 08/10/2024 COMPL ETE BLOOD COUNT W/DIF F MCH 28.8 pg 27.0-3 3.0 normal Not Available [address] [place], [address] 08/10/2024 17:12:31 08/10/19 25 08/10/2024 COMPL ETE BLOOD COUNT W/DIF F MCHC 32.9 % 32.0-3 6.0 normal Not Available [address] [place], [address] 08/10/2024 17:12:31 08/10/19 25 08/10/2024 COMPL ETE BLOOD COUNT W/DIF F RDW 13.5 % 11.8-1 4.1 normal Not Available [address] [place], [address] 08/10/2024 17:12:31 08/10/19 25 08/10/2024 COMPL ETE BLOOD COUNT W/DIF F platelet count 170 10_3/ uL 130-40 0 normal Not Available [address] [place], [address] 08/10/2024 17:12:31 08/10/19 25 08/10/2024 COMPL ETE BLOOD COUNT W/DIF F MPV 11.2 fL 8.0-11 .0 high Not Available [address] [place], [address] 08/10/2024 17:12:31 08/10/19 25 08/10/2024 COMPL ETE BLOOD COUNT W/DIF F neutrophils % 56.6 % Not Available [address] [place], [address] 08/10/2024 17:12:31 08/10/19 25 08/10/2024 COMPL ETE BLOOD COUNT W/DIF F lymphocytes % 1.2 % Not Available [address] [place], [address] 08/10/2024 17:12:31 08/10/19 25 08/10/2024 COMPL ETE BLOOD COUNT W/DIF F monocytes % 3.6 % Not Available [address] [place], [address] 08/10/2024 17:12:31 08/10/19 25 08/10/2024 COMPL ETE BLOOD COUNT W/DIF F eosinophils % 37.7 % Not Available [address] [place], [address] 08/10/2024 17:12:31 08/10/1908/10/2024 COMPL ETE BLOOD COUNT W/DIF F basophils % 0.3 % Not Available [address] [place], [address] 08/10/2024 17:12:31 08/10/1908/10/2024 COMPL ETE BLOOD COUNT W/DIF F immature grans % 0.6 % Not Available [address] [place], [address] 08/10/2024 17:12:31 08/10/1908/10/2024 COMPL ETE BLOOD COUNT W/DIF F nucleated RBC 0.0 % 0.0-0. 3 normal Not Available [address] [place], [address] 08/10/2024 17:12:31 08/10/19 25 08/10/2024 COMPL ETE BLOOD COUNT W/DIF F absolute neutrophil count 11.05 10_3/ uL 1.2-6. 7 high Not Available [address] [place], [address] 08/10/2024 17:12:31 08/10/19 25 08/10/2024 COMPL ETE BLOOD COUNT W/DIF F absolute lymphocyte count 0.23 10_3/ uL 1.2-3. 4 low Not Available [address] [place], [address] 08/10/2024 17:12:31 08/10/19 25 08/10/2024 COMPL ETE BLOOD COUNT W/DIF F absolute monocyte count 0.70 10_3/ uL 0.1-0. 8 normal Not Available [address] [place], [address] 08/10/2024 17:12:31 08/10/19 25 08/10/2024 COMPL ETE BLOOD COUNT W/DIF F absolute eosinophil count 7.36 10_3/ uL 0.0-0. 7 high Not Available [address] [place], [address] 08/10/2024 17:12:31 08/10/19 25 08/10/2024 COMPL ETE BLOOD COUNT W/DIF F absolute basophil count 0.06 10_3/ uL 0.0-0. 2 normal Not Available [address] [place], [address] 08/10/2024 17:12:31 08/10/19 25 08/10/2024 LACTA TE lactate 2.4 mmol/ L 0.6-1. 4 panic high Criti kristine value repor leidy to and readb ack from [facility] Nicole vasquez , ERT at 1703 08/10 by LAB.K EVELIO Not Available [address] [place], [address] 08/10/2024 17:06:28 08/10/19 25 08/10/2024 VENOU S BLOOD GAS pH (venous) 7.38 7.31-7 .41 normal Not Available [address] [place], [address] 08/10/2024 17:06:27 08/10/19 25 08/10/2024 VENOU S BLOOD GAS pCO2 (venous) 48 mmHg 41-51 normal Not Available [address] [place], [address] 08/10/2024 17:06:27 08/10/19 25 08/10/2024 VENOU S BLOOD GAS pO2 (venous) 39 mmHg Not Available [address] [place], [address] 08/10/2024 17:06:27 08/10/19 25 08/10/2024 VENOU S BLOOD GAS TCO2 (venous) 25 mmol/ L 24-29 normal Not Available [address] [place], [address] 08/10/2024 17:06:27 08/10/19 25 08/10/2024 VENOU S BLOOD GAS HCO3 (venous) 28 mmol/ L 23-28 normal Not Available [address] [place], [address] 08/10/2024 17:06:27 08/10/19 25 08/10/2024 VENOU S BLOOD GAS BE (venous) 3 mmol/ L -2-3 normal Not Available [address] [place], [address] 08/10/2024 17:06:27 08/10/1908/10/2024 VENOU S BLOOD GAS O2 sat (venous) 70 % Not Available Bonifaciofawn lee [address] [place], [address] 08/10/2024 17:06:27 08/10/1908/10/2024 COVID /FLU/ RSV PCR source Naselier ramosynx Not Available [address] [place], [address] 08/10/2024 17:31:33 08/10/1908/10/2024 COVID /FLU/ RSV PCR covid-19 PCR Negati ve negati ve This test has not been FDA clear ed or appro daniel. This test has been autho rized by the FDA under an Emerg ency Use Autho rizat ion for use by autho rized labor atori es. This test has been autho rized only for detec tion of nucle ic acid from the 2019 novel coron a virus (2018 -nCoV ), influ eboni A, influ eboni B, and respi rator y syncy tial virus (RSV) , and not for the detec tion of any other virus es or patho gens. This test is only autho rized for the durat ion of the decla ratio n that circu mstan vince exist justi fying the autho rizat ion of emerg ency use of in vitro diagn ostic tests for detec tion and/o r diagn osis of 2018- nCoV under secti on 564(b )(1) of Act, 21 U.S.C ??? 360bb b-3(b )(1), unles s the autho rizat ion is termi nated or revok ed soone r. Negat tami resul ts do not precl ude 2019- nCoV, influ eboni, and/o r RSV infec tion and shoul d not be used as the sole basis for treat ment or other patie nt manag ement decis ions. Negat tami resul ts must be combi rosmery with clini kristine obser vatio ns, patie nt histo ry, and epide miolo gical infor mayank Jiménezi ng perfo rmed at [facility] (CLIA #[id number]) on the Cephe id GeneX pert. Not Available [address] [place], [address] 08/10/2024 17:31:33 08/10/19 25 08/10/2024 COVID /FLU/ RSV PCR influenza A PCR Negati ve negati ve Not Available [address] [place], [address] 08/10/2024 17:31:33 08/10/19 25 08/10/2024 COVID /FLU/ RSV PCR influenza B PCR Negati ve negati ve Not Available [address] [facility] [place], [address] 08/10/2024 17:31:33 08/10/19 25 08/10/2024 COVID /FLU/ RSV PCR RSV PCR Negati ve negati ve Not Available [address] [place], [address] 08/10/2024 17:31:33 07/14/20 23 07/14/2023 ED visit note ED Visit Note PATIEN T NAME: Arvind Ambriz UNIT #: [id number] ADMITT ING PROVID ER: Waqas Nugent ACCOUN T #: [id number] PRIMAR Y CARE PROVID ER: RUBIN LAU MD DATE OF ADMIT: : 1965 Discha rge [...] odyl)] 10 mg Suppos itory 10 mg ID DAILY loraze rigoberto 1 mg Tablet 1 [...] tosis, histor y of cranio rigo and [employer] shunt. Family and social histor y: stella bautista and rian fernández nurses . Pertin ent exam findin gs / vital signs includ e mild disten tion suprap ubical ly that resolv ed with placem ent of a patent Li, benign cardio pulmon reed status , afebri le, after 10 to 15 minute s Li starte d having blood- tinged draina ge. Differ ential / pathol ogies of concer n includ e UTI, hematu jacob, pyelon ephrit is, renal stone, bladde r cancer , trauma from prior failed Li. Diagno stic studie s of: -UA, CBC, [...] w Contra st Interv ention s of: -Li replac ement - draini ng cloudy urine at first, then as 100mL had entere d bag starte d seeing blood tinged color. 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 CT scan was also added on to evalua te for possib le pyelon ephrit is or other pathol ogy of hematu jacob like renal stones . Juice frost signed out to Dr. Boone at shift change pendin g repeat lactat e and imagin g result s with dispos ition. Dispos ition of Li Cathet er Proble m, Urinar y Tract Infect ion, Sepsis Juice frost verbal ized unders rachel g of the plan and return to ED criter ia and engage d in shared decisi on making . Medica l Record s Medica l record s review ed: Yes I review ed the patien t's medica l record s. Lab Data Lab result s review ed: Yes I review ed the patien t's lab result s. Labs: 22:42 Blood Blood Cultur e - Pendin g 22:42 Blood Blood Cultur e - Pendin g 21:35 Urine - Reflex from Ua Urine Cultur e - Pendin g Labora tory Tests Range/ Units 21:35 22:30 WBC (4.4-1 [...] male presen ts to ED today by [facility] hair, with sister and careta ker- non-ve rbal with a chief compla int of doris li cathet er change d by home health nurse at 10am today. Qualit y descri bed as no urine output since then, no radiat ion to fever, not able to give any other histor y. Severi ty is descri bed as unable to quanti fy. Pallia ting factor s includ e none attemp leidy- appear s the cathet er was not confir med as patent prior to visiti ng nurse horacio fernández. Provok ing factor s includ e jaja fernández specif ic. Events leadin g up to the incide nt/Ass ociate d Sympto ms: juice frost is chroni jeremias cath'd . Juice frost not antico agulat ed. 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 Surgic al Histor y (Revie tue @ 08:20 by Nneka Grajeda RN) S/P cranio rigo S/P HOT DIE PRESS FEEDER shunt Social Histor y (Revtue @ 11:16 by Khai Martino NP) 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 Use Status : Never Smokin g risk assess ment perfor med?: Yes Alcoho l Intake : never Drug use: Never Substa nce use type: does not use Caregi laura/Bravo pport person : Yes (parjoni ts are primar y careta kers) Househ old member s: family Anish g: house Additi onal Social histor y: not able to assess privat aaliyah Exam Narrat tami Exam Narrat tami: GENERA L APPEAR ANCE: Well-n [facility] ed, non-to xic, awake and alert, atraum [...] 2% Jelly [Glydo 2%] 11 ml .ROUTE .STK-M ED ONE 21:16 Water for inject ion, steril e 10 ml .ROUTE .STK-M ED ONE 21:35 Urine Cultur e Stat Micros copic Findin gs [URIN] Stat Urinal ysis [URIN] Stat 22:08 Li Insert /DC [Li Insert /Asses s/DC] .INSER T 22:30 Basic [...] error, please notify us immedi ately at [phone] and return the origin al report to us at the addres s above. Thank you. [email or web address] [facility] [address] [place], [address] 07/15/2023 07:47:36 07/15/20 23 07/15/2023 vrad repor t Patien t Name: Arvind Ambriz Unit #: [id number] Loc: ER Orderi ng Provid er: Accoun t #: [id number] Status : REG ER Primar y [...] Contra st route: INTRAV ENOUS (IV); COMPAR MARLENY: CT ABDOME N PELVIS W 019 3:36 [...] bladde r is decomp ressed by a Li cathet er but is otherw ise normal [...] n and lower chest. Dictat ed and Sophie demarco d by: Kevin Virk MD. Orderi ng:Armando Wilkerson MD Access ion#=[id number] Orderfawn d By: CC: ------ ------ ------ ------ ------ ------ ------ ------ ------ ------ ------ ------ ---- Dictat ed By: Report s vrad 0027 0124 Transc ribed By: Di Merge 7 This is privil eged, confid ential inform ation intend ed only for the provid er named. Any use or distri bution by any person other than this provid er is strict ly prohib ited. If you receiv e this report in error, please notify us immedi ately at and return the origin al report to us at the addres s above. Thank- you. [email or web address] [facility] [address] [place], [address] 07/15/2023 07:47:37 07/15/20 23 07/15/2023 ED progr ess note ED Progre ss Note PATIEN T NAME: Arvind Ambriz UNIT #: [id number] ADMITT ING PROVID ER: Deshawn Boone M.D. ACCOUN T #: [id number] PRIMAR Y CARE PROVID ER: RUBIN LAU MD Y DATE OF ADMIT: : 1965 Date of servic e: Time of Servic e: 02:21 Medica l Decisi on Making I, Deshawn Boone, took signou t on this patien t. In summar y 57-yea r-old gentle man with cognit tami delay and chroni c indwel ling Li cathet er presen ts with obstru cted Li cathet er. Had it change d by home health today at 10 AM. No output and marcos t here by stella mullen who lives in with him. Li cathet er was exchan ged here and signif icant draina ge of urine. Signed out to me pendin g labs and CT abdome n pelvis . Labs unrema rkable other than UTI. Had a lactic acidos is that resolv ed after IV fluids . CT abdome n pelvis with no acute findin gs given some IV antibi otics here. Back to [facility]. Vital signs unrema rkable . Will send [...] rge Detail s Clinic al Impres ida: Li cathet er proble m, Acute UTI Primar [...] odyl)] 10 mg Suppos itory 10 mg ID DAILY loraze rigoberto 1 mg Tablet 1 mg PO TID PRN cholec alcife rol (vitam in D3) [Vitam in D3] 1,000 unit Capsul e 1 unit PO DAILY Discha rge Instru ctions Instru ctions : Urinar y Tract Infect ion in Men (ED), Li Cathet er Placem ent and Care (ED) Additi onal Instru ctions : Arvind gonzalez was seen in the emerge [facility]cy depart ment for a Li cathet er proble m. We replac ed the Li cathet er here and he sponta neousl [...] pharma cy. Please return to the emerge ncy depart ment if he develo ps any other sympto ms or if you have any other concer ns. Follow -up with your primar care doctor . Referr als: Trinidad Lau MD [[facility] er] - 1 week cc: FELISHA SU, RUBIN Y ------ ------ [...] report in error, please notify us immedi kentrell at and return the origin al report to us at the addres s above. Thank you. [email or web address] [address] [place], [address] 07/15/2023 07:47:37 07/15/2007/15/2023 CT, abdom en + pelvi s, w/ contr ast Patien t Name: Arvind Ambriz Unit #: [id number] Loc: ER Delicia man Provid er: Irvin manWaqas MCNEIL Accoun t #: [id number] Status : DEP ER Primar y Care [...] Omnipa que-35 0 100cc Oral: None COMPAR MARLENY: CT CT ABDOME N PELVIS W from [...] is. No hydrou reter. There is a Li cathet er in the urinar y bladde [...] unrema rkable . URINAR Y BLADDE R: Li cathet er in place. Signif icant abnorm [...] chroni c cystit is. There is a Li cathet er in the urinar y bladde r noted which was not eviden t in 2019 4. Increa sed markin gs in both lower lobes which may be mild infilt rate. There are no associ ated pleura l effusi ons. RADIAT ION DOSE DELIVE RED: Total DLP DATA REPOSI TORY: All CT scans at this facili ty are submit leidy to the [facility] al Radiol ogy Data Regist ry (NRDR) Dose Index Regist ry (DIR) with the [place] of Radiol ogy (ACR). RADIAT ION OPTIMI ZATION : [facility] CT [facility] at [facility] use at least one of these [...] ---- Dictat ed By: Michael Wahl M.D. 1123 1123 Transc ribed By: Kierra Wahl MD 1123 This is privil eged, confid ential inform ation intend ed only for the provid er named. Any use or distri bution by any person other than this provid er is strict ly prohib ited. If you receiv e this report in error, please notify us immedi ately at and return the origin al report to us at the addres s above. Thank- you. [email or web address] [facility] [address], [place], [address] 07/15/2023 12:07:27 08/12/19 24 08/12/2023 ultra sound imagi ng repor t Patien t Name: Arvind Ambriz Unit #: [id number] Loc: DI Orderi ng Provid er: Joey House M.D. Accoun t #: [id number] Status : REG CLI Primar y Care Provid er: Trinidad Lau M.D. Date of Exam: Sex: M Admiss ion Date: : 1965 Age: 57 Exam(s ) US RENAL EXAM: US RENAL CLINIC AL HISTOR Y: ? hydron ephros is,aureliano rogeni c vero emanuel,N31. 9. TECHNI QUE: Amor scale, color and spectr al Dopple r were used. COMPAR MARLENY: US US RENAL from [address] ABDOME N PELVIS W from 2022 FINDIN GS: Renal size in cm: Right: 10.9 left: 0 Echoge nicity : Normal Hydron ephros is: No Cyst or mass: Small bilate ral cysts again noted. Nephro lithia sis: 6 millim eter nonobs tructi ng stone mid right kidney . Vero r:Fole y cathet er presen t within decomp ressed vero emanuel IMPRES IDA: No eviden ce of hydron ephros is. 6 millim eters calcul us mid right kidney . DATA REPOSI TORY: Sd slater By: Joey House M.D. CC: ------ ------ ------ ------ ------ ------ ------ ------ ------ ------ ------ ------ - Dictat ed By: Jovita Romo 1423 Transc ribed By: Nathan Astudillo 1423 This [...] at the addres s above. Thank- you. [facility] [address], [place], [address] 08/14/2023 16:21:59 08/19/19 24 08/18/2023 ED visit note ED Visit Note PATIEN T NAME: Arvind Ambriz UNIT #: [id number] ADMITT ING PROVID ER: Dejan Parsons DO ACCOUN T #: [id number] PRIMAR Y CARE PROVID ER: RUBIN LAU MD DATE OF ADMIT: : 1965 HPI Genera l Stated Compla int: Urinar y SCHUYLER: 3 Date/T gerber Provid er Initia leidy sparks n: 22:50. 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 Histor y is notabl y limite d, [...] ints or histor y at this time. Li cathet er was recent ly change d [...] 10 mg rectal suppos itory 10 mg ID DAILY (Dulco lax (bisac odyl)) cholec alcife [...] and below PFSH All Active Proble ms (Revie tue @ 05:22 by Rock Parsons DO) Li cathet er proble m (Acute ) Sepsis (Acute ) Compli cated UTI (urina ry tract infect ion) (Acute ) Commun ity acquir ed pneumo long (Acute ) DVT prophy laxis (Acute ) Urinar y cathet er insert ion/ad justme nt/rem oval (Acute ) Diarrh ea (Acute ) Neurog enic vero emanuel (Acute ) Discha rge planni ng issues (Acute ) Bacter emia (Acute ) Medica l Histor y (Revie tue @ 05:22 by Rock Parsons DO) 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 3.ENT: Atraum atic buying intern al nose and ears. Moist MM. Neck: [...] r to an enlarg ed bladde r. Patien t has defeca leidy on himsel f, genita chelsey otherw ise looks stable with no blood at the urethr al meatus . 7.MSK: Normoc ephali c/Atra umatic , chroni c partia l contra ctures of the upper extrem ities. 8.Skin : Warm, Dry. No rashes or lesion s. 9.Neur o: Patien t appear s at neurol ogic baseli ne per family Course Vital Signs Vital [...] l histor y of cognit tami delay, HOT DIE PRESS FEEDER shunt, who is relati vely nonver bal, with a chroni c indwel ling Li second reed to neurog enic bladde r, presen ts today for an obstru cted Li. Histor y is notabl y limite d, [...] ints or histor y at this time. Li cathet er was recent ly change d 6 days ago. Juice frost had been on antibi otics previo usly about a month ago for urinar y tract infect ion which demons trated enteri c bacter ia that was cefazo amol resist ant but otherw ise pansen sitive . Exam demons trates intact Li cathet er, no blood at the urethr al meatus or discha rge. No urine in the Li bag. Juice frost has defeca leidy on himsel f in his diaper . Suprap ubic pressu re is noted. Bedsid e ultras ound shows greate r than 500 cc in the bladde r. Juice frost is notabl y afebri le here. He is tachyc ardic in the 120s on arriva l. Concer n for urinar y obstru ction. Will place Li cathet er and reasse ss. 11:50 PM Li cathet er placed succes sfully withou t [...] to infect ion. Will start the patijoni frost on cefpod oxime. Juice frost appear s notabl y clinic ally improv ed. Patijoni t stable for discha rge. Discus sed the plan with the patien t's caregi laura who is at bedsid e. I have extens ively review ed the treatm ent plan and discha rge instru ctions with the patijoni frost and their family . I have addres sed all patijoni t concer ns at this time. The patien t and family was made aware of what sympto ms to monito r for that would jeffery frost a return to the emerge ncy depart ment. Discus sed the plan with the patien t and family , they demons trate verbal unders rachel fernández and agreem ent with our assess ment and plan at this time. The docume ntatio n in this chart was dictat ed using RotaBanon dictat ion softwa re. Please excuse any dictat ion errors . Qualit y:SDOH Health Relate d Social Needs: No Data to Displa y Discha rge Plan Dispos ition Patien t Dispos ition: Home Discha rge Detail s Clinic al Impres ida: Li cathet er proble m Primar y Care Provid er: Trinidad Lau ED Provid er: Dejan Parsons Home Meds and New Rx's Prescr iption [...] odyl)] 10 mg Suppos itory 10 mg ID DAILY loraze rigoberto 1 mg Tablet 1 mg PO TID PRN cholec alcife rol (vitam in D3) [Vitam in D3] 1,000 unit Capsul e 1 unit PO DAILY Discha rge Instru ctions Instru ctions : Li Cathet er Placem ent and Care (ED) Additi onal Instru ctions : At this time the mucous plug has been remove d and the Li is now draini ng well after it [...] it was a pleasu re partic anu g in your medica l care today. Referr als: Joey House MD [ [facility] STAFF PHYSIC NICOLE] - Trinidad Lau MD [Prima ry Care Provid er] - Discha rge Data Discha rge Date/T gerber-TO BE ENTERE D AT DEPART URE: 00:23 cc: RUBIN LAU MD ------ ------ ------ ------ ------ ------ ------ ------ ------ ------ ------ --- Dictat ed by: WAQAS PARSONS DO Dictat ed: Time: 53 Date: 525 [...] at the addres s above. Thank you. [email or web address] [facility] [address], [place], [address] 08/21/2023 07:03:01 08/31/19 24 08/30/2023 ED visit note ED Visit Note JUICE Frost NAME: Arvind Ambriz UNIT #: [id number] ADMITT ING PROVID ER: Brii Olmedo M.D. ACCOUN T #: [id number] PRIMAR Y CARE PROVID ER: FELISHA SU, RUBIN Y DATE OF ADMIT: : 1965 HPI Genera l Mode of arriva l: EMS . Date/T gerber Provid er Initia leidy Docume ntatio n: 23:18 . Inform ation obtain ed by: family . HPI Narrat tami: 57yo M largel y nonver bal, chroni c indwel ling trupti, presen ts for dislod ged urinar y cathet er. Li fell out. No bleedi ng or trauma [...] 10 mg rectal suppos itory 10 mg ID DAILY (Dulco lax (bisac odyl)) cholec alcife rol (vitam in D3) 25 1 unit PO DAILY 09/19/ 19 12/07/ 23 mcg (1,000 unit) capsul e (Vitam in [...] y nonver bal, chroni c indwel ling jarrett li ts for dislod ged urinar y cathet er. Histor y from caregi laura at bedsid e No bleedi ng or trauma , balloo n appear ed deflat ed. No UTI sympto ms. No indica tion for labs or UA. Vital signs and physic al exam reassu ring. Li replac ed withou t compli cation , draine d clear yellow urine. Discha rged home; discha rge instru ctions and return precau tions were review ed with alex sanchez who verbal ized unders tandin g; all questi ons were answer ed and they are in full agreem ent with the plan. 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 Referr als: Trinidad Lau MD [Prima ry Care Provid er] - cc: RUBIN ALU MD ------ ------ ------ ------ ------ ------ [...] error, please notify us immedi ately at [phone] and return the origin al report to us at the addres s above. Thank you. [email or web address] [facility] [address] [place], [address] 08/31/2023 08:30:10 04/23/20 24 04/26/2019 imagi ng/di agnos tic resul t No observ ation record ed. [email or web address] Not Available 04/23 19:41:36 04/23/20 24 05/01/2019 imagi ng/di agnos tic resul t No observ ation record ed. [email or web address] Not Available 04/23 19:41:37 04/23/20 24 04/26/2019 imagi ng/di agnos tic resul t No observ ation record ed. [email or web address] Not Available 04/23 19:41:44 04/23/20 24 04/26/2019 imagi ng/di agnos tic resul t No observ ation record ed. [email or web address] Not Available 04/23 19:44:28 04/23/20 24 12/12/2018 imagi ng/di agnos tic resul t No observ ation record ed. [email or web address] Not Available 04/23 19:44:28 04/23/20 24 04/07/2020 imagi ng/di agnos tic resul t No observ ation record ed. [email or web address] Not Available 04/23 19:44:29 04/23/20 24 04/08/2021 imagi ng/di agnos tic resul t No observ ation record ed. [email or web address] Not Available 04/23 19:44:30 04/23/20 24 08/13/2022 imagi ng/di agnos tic resul t No observ ation record ed. [email or web address] Not Available 04/23 19:44:32 04/23/20 24 05/04/2019 imagi ng/di agnos tic resul t No observ ation record ed. [email or web address] Not Available 04/23 19:44:32 04/23/20 24 04/30/2019 imagi ng/di agnos tic resul t No observ ation record ed. [email or web address] Not Available 04/23 19:45:06 05/21/20 24 05/21/2024 CT imagi ng repor t Patien t Name: Arvind Ambriz Unit #: [id number] Loc: ER Orderi ng Provid er: Waqas Nugent Accvaldo t #: [id number] Status : REG ER Primar y Care Provid er: Feliberto Starks Date of Exam: Sex: M : 1965 Age: 58 Exam(s ) a CT:CT renal colic wo Exam(s ) CT RENAL COLIC WO EXAM: CT RENAL COLIC WO CLINIC AL HISTOR Y: ?UTI vs renal stones . TECHNI QUE: Imagin g Protoc ol: Axial comput ed tomogr aphy images with navarro l and sagitt al reform atted images were create d and review ed. COMPAR MARLENY: CT CT ABDOME N PELVIS W from 2022 FINDIN GS: The examin ation is limite d due to patien t motion artifa ct. ABDOME N: Lung Bases: Depend ent infilt rates in the lung bases bilate rally. Liver: Normal densit y. No measur able mass. Gallbl adder and biliar y tract: No radiod ense calcul us or biliar y ductal dilati on. Pancre as: Normal densit y, no abnorm al calcif icatio ns or inflam matory proces s. Spleen : Normal . Kidney s: Normal size, contou r and axis.S mall nonobs tructi ng stones are seen in the right kidney . No ureter olithi asis or hydron ephros is. No masses seen. Adrena l glands : No mass is seen. Lymph nodes: Within normal limits . Abdomi nal Aorta: Abdomi nal portio n non-di lated. PELVIS : Bladde r:Ther e is a Li cathet er in place. They urinar y bladde r is well disten ded. There is diffus e very mild thicke jarett of the wall of the urinar y bladde r. Bowel: There are divert icula seen in the colon but no eviden ce of acute divert iculit is. There is no bowel wall thicke jarett or obstru ction. No eviden ce of append icitis . Perito tia cavity : The there is tubing in the abdome n and anteri or chest wall consis tent with a ventri culope ritone al shunt. There is a small amount of fluid seen in the pelvis . No pneumo perito neum. Reprod uctive organs : Unrema rkable as visual ized. Bones: Within normal limits for the patien t's age. Soft Tissue s: Within normal limits . IMPRES IDA: 1. Right nephro lithia sis. No ureter olithi asis or hydron ephros is. 2. Mild diffus e thicke jarett of the wall of the urinar y bladde r. This may reflec t cystit is. Please correl ate clinic ally. 3. Ventri culope ritone al shunt is in place. There is a small amount of fluid in the pelvis which may reflec t shunt functi on. No focal fluid collec tion is seen in the abdome n or pelvis . 4. Depend ent infilt rates seen in the lung bases which may repres ent atelec tasis or pneumo long. Please correl ate clinic ally. 5. Coloni c divert iculos is withou t eviden ce of acute divert iculit is. RADIAT ION DOSE DELIVE RED: 614.4m Gy.cm Total DLP DATA REPOSI TORY: All CT [...] tion); or iterat tami recons tructi on. 1014-0 024: Total DLP = 0.00 mGy-cm Ordere d By: Waqas Nugent CC: ------ ------ ------ ------ ------ ------ ------ ------ ------ ------ ------ ------ ---- Dictat ed By: Rupesh Hamilton M.D. 1316 131 Transc ribed By: Rupesh Hamilton 1315 This is privil eged, confid ential inform ation intend ed only for the provid er named. Any use or distri bution by any person other than this provid er is strict ly prohib ited. If you receiv e this report in error, please notify us immedi ately at and return the origin al report to us at the addres s above. Thank- you. INTERFACE [facility] [address], [place], [address] 05/21/2024 13:21:03 06/26/20 24 06/26/2024 x-ray imagi ng repor t Patien t Name: Arvind Ambriz Unit #: [id number] Loc: ER Orderi ng Provid er: Kishor Mann M.D. Accoun t #: [id number] Status : REG ER Primar y Care Provid er: Feliberto Starks Date of Exam: Sex: M Admiss ion Date: : 1965 Age: 58 Exam(s ) XR ANKLE RT COMPLE TE EXAM: XR ANKLE RT COMPLE TE CLINIC AL HISTOR Y: ankle injury . TECHNI QUE: 2D digita l imagin g was perfor med. COMPAR MARLENY: No exams were availa ble for compar marleny FINDIN GS: 3 views There is soft tissue swelli ng over both sides of the ankle. Subtle sugges tion a possib le fractu re of the anteri or tibial plafon d, seen on the latera l view. Lucenc y in the medial malleo lonnie is probab ly develo pmenta l. Latera l malleo lonnie is intact . There is no wideni ng the ankle mortis e. Talar dome unrema rkable . Incide ntally noted on the latera l view is a benign -appea ring eccent jasmyn sclero tic non expans ile bone lesion in the distal fibula which is probab ly a fibrou s cortic al defect -nonos sifyin g fibrom a. IMPRES IDA: Subtle findin gs as above. Recomm end CT scan of the ankle. DATA REPOSI TORY: RADIAT ION DOSE DELIVE RED: Ordere d By: Kishor Mann M.D. CC: ------ ------ ------ ------ ------ ------ ------ ------ ------ ------ ------ ------ - Dictat ed By: Michael Wahl M.D. 1228 1228 Transc ribed By: Maryuri SU,Kierra oliva 1228 This is privil eged, confid ential inform ation intend ed only for the provid er named. Any use or distri bution by any person other than this provid er is strict ly prohib ited. If you receiv e this report in error, please notify us immedi ately at [phone] and return the origin al report to us at the addres s above. Thank- you. INTERFACE [address] [place], [address] 06/26/2024 12:33:16 06/26/20 24 06/26/2024 CT imagi ng repor t Patien t Name: Arvind Ambriz Unit #: [id number] Loc: ER Orderi ng Provid er: Kishor Mann M.D. Accoun t #: [id number] Status : REG ER Primar y Care Provid er: Feliberto Starks Date of Exam: Sex: M : 1965 Age: 58 Exam(s ) a CT:CT lower extrem ity RT wo Exam(s ) CT LOWER EXTREM ITY RT WO EXAM: CT LOWER EXTREM ITY RT WO CLINIC AL HISTOR Y: Right ankle pain abnorm al XR. TECHNI QUE: Imagin g Protoc ol: Axial comput ed tomogr aphy images with navarro l and sagitt al reform atted images were create d and review ed. CONTRA ST MATERI AL: Intrav enous: None COMPAR MARLENY: CR XR ANKLE RT COMPLE TE from 2023 FINDIN GS: OSSEOU S: There is a transv erse fractu re throug h the medial malleo lonnie.. There is also fractu re of the anteri or latera l aspect of the distal tibia- tibial plafon d is a consis tent with what is seen on plain films. There is no fractu re of the latera l malleo lonnie nor of the talar dome nor other focal findin gs in the talar dome. Benign -appea ring lung truly orient ated sclero tic eccent jasmyn lesion in the distal 3rd of the fibula noted which is probab ly a fibrou s cortic al defect . No eviden ce of osseou s tarsal coalit ion. The base of the 5th metata rsal is intact . No other fractu res eviden t. SOFT TISSUE S: Modera te subcut aneous edema eviden t. IMPRES IDA: Fractu res of the medial malleo lonnie and anteri or latera l aspect of the tibial plafon d. [employer] ior malleo lonnie is intact . Latera l malleo lonnie is intact . Discus sed by phone with ER physic nicole RADIAT ION DOSE DELIVE RED: 125.7m Gy.cm Total DLP DATA REPOSI TORY: All CT scans at this facili ty are submit leidy to the Nation al Radiol ogy Data Regist ry (NRDR) Dose Index Regist ry (DIR) with the [place] an [place] e of Radiol ogy (ACR). RADIAT ION OPTIMI ZATION : All CT scans at this facili ty use at least one of these dose optimi zation techni ques: automa leidy exposu re contro l; mA and/or kV adjust ment per patien t size (inclu nader target ed exams where dose is matche d to clinic al indica tion); or iterat tami recons tructi on. 1119-0 027: Total DLP = 0.00 mGy-cm Ordere d By: Kishor Mann M.D. CC: ------ ------ ------ ------ ------ ------ ------ ------ ------ ------ ------ ------ ---- Dictat ed By: Michael Wahl M.D. 1355 1355 Transc ribed By: Maryuri SU,Kierra pj 1355 This is privil eged, confid ential inform ation intend ed only for the provid er named. Any use or distri bution by any person other than this provid er is strict ly prohib ited. If you receiv e this report in error, please notify us immedi leahtatiana at and return the origin al report to us at the addres s above. Thank- you. INTERFACE [facility] [address], [place], [address] 06/26/2024 13:59:26 08/10/1908/10/2024 vrad repor t Patien t Name: Arvind Ambriz Unit #: [id number] Loc: ER Orderi ng Provid er: Accoun t #: [id number] Status : REG ER Primar y Care Provid er: Feliberto Starks Date of Exam: Sex: M : 1965 Age: 58 Exam(s ) PROCED URE INFORM ATION: Exam: XR Chest Exam date and time: 08/10/19 7:05 PM Age: 58 years old Clinic al indica tion: Shortn ess of breath ; Additi onal info: SOB TECHNI QUE: Imagin g protoc ol: Radiol ogic exam of the chest. Views: 1 view. COMPAR MARLENY: CR XR CHEST 2V PA LATERA L 019 1:20 PM FINDIN GS: Lungs: Crowdi ng of lung markin gs, likely second reed to low lung volume s. Pleura l spaces : No pleura l effusi on. No pneumo thorax . Heart/ Medias tinum: Cardia c and medias tinal silhou ettes are unrema rkable . Diaphr agm: Chroni c mild elevat ion of the right hemidi aphrag m. Bones/ joints : No acute osseus lesion or fractu re. Gastro intest inal tract: Diffus e gaseou s disten ida of partia lly visual ized bowel loops. IMPRES IDA: Diffus e gaseou s disten ida of partia lly visual ized bowel loops. Recomm end follow -up CT abdome n pelvis . Dictat ed and Sophie demarco d by: Deshawn Valdes MD. Orderi ng:Armando Medellin MD Access ion#=[id number] Ordere d By: CC: ------ ------ ------ ------ ------ ------ ------ ------ ------ ------ ------ ------ ---- Dictat ed By: Report s vrad 1904 Transc ribed By: Cristiane Merge 1904 This is privil eged, confid ential inform ation intend ed only for the provid er named. Any use or distri bution by any person other than this [facility] er is strict ly prohib ited. If you receiv e this report in error, please notify us immedyazan pfeiffer at and return the origin al report to us at the addres s above. Thank- you. INTERFACE [address], [place], [address] 08/10/2024 19:27:42 Result Notes None recorded. Problems Name Problem SNOMED Code Status Onset Date Resolution Date Notes Provider Name and Address Organization Details Recorded Time Closed fracture of right tibia 02193340068 939687 [facility] 15:07:05 Profound intellec tual disabili ty 46760401 Active 2003 Problem Code: F73; Problem Code Type: ICD-10; MD [address], [place], [address] , [facility] 3 06:21:21 Onychomy cosis due to dermatop hyte 845516137 Active 2014 Solher [facility] 4 10:37:37 Abnormal gait 66186590 Active 2016 Solher [facility] 4 10:38:19 Pneumoni a 690182821 Completed 201612/21/2016 Problem Code: J18.9; Problem Code Type: ICD-10; [facility] 4 10:37:14 Pneumoni a 444226174 Completed 201606/07/2017 Problem Code: J18.9; Problem Code Type: ICD-10; [facility] 4 10:37:14 Muscle weakness 27789818 Active 2017 [facility] 4 10:37:28 Reduced mobility 3539402 Active 2017 Problem Code: Z74.09; Problem Code Type: ICD-10; MD [address], [place], [address] , [facility] 3 06:21:22 History of infectio us disease 347329118 Active 2018 Solher [facility] 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 277191028 Active 2018 Problem Code: N31.9; Problem Code Type: ICD-10; MD [address], [facility] [address] , [facility] 3 06:21:21 Constipa tion 65902374 Active 2020 Problem Code: K59.09; Problem Code Type: ICD-10; MD [address], [facility] [address] , [facility] 3 06:21:21 Blephari tis 08099764 Active 2020 [facility] 4 10:38:13 Cough 24098243 Completed 202003/31/2021 Problem Code: R05; Problem Code Type: ICD-10; Not Available [facility] 3 05:10:29 Acute upper respirat ory infectio n 01665283 Completed 202003/31/2021 Problem Code: J06.9; Problem Code Type: ICD-10; Not Available [facility] 3 05:10:29 Pinhole meatus 61031474 Active 2021 [facility] 4 10:37:18 Neurofib romatosi s type 2 31024871 Active 2003 Problem Code: Q85.02; Problem Code Type: ICD-10; MD Franco [address], [facility] [address] , [facility] 3 06:21:22 Benign neoplasm of meninges 132431777 Active 2003 Problem Code: D32.9; Problem Code Type: ICD-10; MD [address], [facility] [address] , [facility] 3 06:21:21 Retentio n of urine 075782267 Active 2003 Problem Code: R33.9; Problem Code Type: ICD-10; MD Franco [address], [address] 3 06:21:21 Minesh 692793624 Active 2011 Problem Code: L71.9; Problem Code Type: ICD-10; MD Franco [address], [address] 3 06:21:21 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 734736527 Active 2003 Problem Code: Z98.2; Problem Code Type: ICD-10; MD Franco [address], [address] 3 06:21:22 Urinary tract infectio us disease 45995161 Active 2003 Problem Code: N39.0; Problem Code Type: ICD-10; MD Franco [address], [address] 3 06:21:22 Neurofib romatosi s syndrome 19739997 Completed 200305/04/2023 Not Available [facility] 3 05:10:30 Pneumoni a 154608077 Completed 201408/26/2015 Problem Code: J18.9; Problem Code Type: ICD-10; Sol naranjo, [facility] 4 10:37:14 Mental retardat ion Completed 200305/04/2023 Not Available [facility] 3 05:10:30 Dental caries 97350097 Completed 201505/17/2016 Problem Code: K02.9; Problem Code Type: ICD-10; Not Available 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 4 10:37:24 History of calculus of kidney 502042355 Active 2023 Sol Ivy null, [facility] 4 10:37:39 Pneumoni a 533962058 Active 2022 Problem Code: J18.9; Problem Code Type: ICD-10; Sol Williamsonser null, [facility]. 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 [address], [address] 21:20:48 Hypertro phy of nail 76751813 Active [address], [address] 21:30:56 Impacted cerumen of bilatera l ears 26868947082 70540 Active [address], [address] 21:36:10 Visual impairme nt 484296612 Active [address], [address] 21:38:03 Atypical pneumoni a 091763147 Active [address], [address] 15:18:40 Skin lesion 68922715 Active 2023 FELIBERTO STARKS MD [address], [place], [address] , [facility] 4 15:35:35 Onychogr yphosis 44658887 Active 2023 DHARA JACKSON MA null, [facility] 4 15:07:20 Edema 505610427 Active 2023 DHARA JACKSON MA null, [facility] 4 15:08:01 Disorder of nail 81350406 Active 2023 RYNE BROWN, [facility] 4 15:09:41 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 Procedures Surgical History None recorded. Imaging Results Imaging Date Name Status LastModified by Organiz ation Details LastModified Time 07/14/2023 ED visit note completed [address] [place], [address] 07/15/2023 07:47:36 07/15/2023 vrad report completed [address] [place], [address] 07/15/2023 07:47:37 07/15/2023 ED progress note completed [email or web address] [address] [place], [address] 07/15/2023 07:47:37 07/15/2023 CT, abdomen + pelvis, w/ contrast completed [address] [place], [address] 07/15/2023 12:07:27 08/12/2023 ultrasound imaging report completed [address] [place], [address] 08/14/2023 16:21:59 08/18/2023 ED visit note completed [address] [place], [address] 08/21/2023 07:03:01 08/30/2023 ED visit note completed [address] [place], [address] 08/31/2023 08:30:10 04/26/2019 imaging/diagnos tic result completed Information not available 04/23/2024 19:41:36 05/01/2019 imaging/diagnos tic result completed Information not available 04/23/2024 19:41:37 04/26/2019 imaging/diagnos tic result completed Information not available 04/23/2024 19:41:44 04/26/2019 imaging/diagnos tic result completed Information not available 04/23/2024 19:44:28 12/12/2018 imaging/diagnos tic result completed Information not available 04/23/2024 19:44:28 04/07/2020 imaging/diagnos tic result completed Information not available 04/23/2024 19:44:29 04/08/2021 imaging/diagnos tic result completed Information not available 04/23/2024 19:44:30 08/13/2022 imaging/diagnos tic result completed Information not available 04/23/2024 19:44:32 05/04/2019 imaging/diagnos tic result completed Information not available 04/23/2024 19:44:32 04/30/2019 imaging/diagnos tic result completed Information not available 04/23/2024 19:45:06 05/21/2024 CT imaging report completed INTERFACE [address] [place], [address] 05/21/2024 13:21:03 06/26/2024 x-ray imaging report completed INTERFACE [address] [place], [address] 06/26/2024 12:33:16 06/26/2024 CT imaging report completed INTERFACE [address] [place], [address] 06/26/2024 13:59:26 08/10/2024 vrad report active INTERFACE [address] [place], [address] 08/10/2024 19:27:42 Procedure Notes None recorded. Medical Equipment None Reported. Allergies Allergen ID Allergen Name Allergen Category Reaction Reaction Severity Criticality Documentation Date Start Date Code Code System Note Provider Name and Address Organization Details Recorded Time 06919 Tegretol medicatio n Not available Not available Not available 06/17/20232001 9 RxNorm Not Available [facility] 3 16:07:31 69225 sulfadiaz ine medicatio n other mild Not available 06/17/20232001 41558 RxNorm gi upset Aller gyRea ction : 'gi upset '; Not Available [facility] 3 16:07:32 68533 Risperdal medicatio n Not available Not available Not available 06/17/20232001 85757 8 RxNorm Aller gyCod e: '1249 27124 01'; Aller gyNam e: 'RISP ERDAL '; Aller gyCon ceptT ype: 'NDC' ; Not Available [facility] 3 16:07:32 94105 Neurontin medicatio n other moderate low 08/02/2023 27107 8 RxNorm ataxi a MD [address], [place], [address] [place] [address] 3 06:24:47 Medications Name Sig Start Date [...] VIA NEBULIZE R FOUR TIMES A DAY NEEDED active Not Available Not Available No t Available Vitamin C 500 mg tablet 04/[address] Not Available Not Available Not Available polyethyl willie glycol 3350 17 gram oral powder packet DISSOLVE ONE PACKET IN 4-8 OZ OF LIQUID AND DRINK ONCE DAILY OR DIRECTED active Not Available Not Available No t Available Phenergan 12.5 mg tablet 1TAB tid 2011 active Not Available Not Available Not Avai lable cefpodoxi me 200 mg tablet TAKE ONE TABLET BY MOUTH TWICE A DAY FOR 7 DAYS. MUST TAKE WITH A MEAL/ FOOD 04/25 completed Not Available Not Available Not Available [...] completed Not Available Not Available Not Available urea 40 % topical cream APPLY TO THE AFFECTED AREA(S) DAILY active Not Available Not Available No t Available fluconazo le 200 mg tablet TAKE [...] ONE SUPPOSIT ORY RECTALLY EVERY OTHER DAY NEEDED active Not Available Not Available No t Available cephalexi n 500 mg capsule TAKE ONE CAPSULE BY MOUTH THREE TIMES A DAY FOR ANTIBIOT IC 04/25 completed Not Available Not Available Not Available erythromy phyllis 5 mg/gram (0.5 %) [...] Not Available Not Available No t Available ketoconaz ole 2 % topical cream APPLY TO THE AFFECTED AREA(S) BY TOPICAL ROUTE ONCE DAILY active Not Available Not Available No t [...] TAKE ONE TABLET BY MOUTH EVERY DAY 2023 active Not Available Not Available Not Avai lable doxycycli ne hyclate 100 mg tablet TAKE ONE TABLET BY MOUTH TWICE A DAY FOR 7 DAYS 11/06 completed Not Available Not Available Not Available Invanz 1 gram solution for injection 2018 active [facility] Not Available Not Available Not Avai lable amoxicill in 875 mg-potass ium clavulana te 125 mg tablet TAKE ONE TABLET BY MOUTH TWICE A DAY FOR 7 DAYS FOR PNEUMONI A active Not Available Not Available No t Available Ventolin HFA 90 mcg/actua tion aerosol [...] as directed once a day 2021 active [facility] - Fax number Not Available Not Available Not Available BreatheRi te Spacer and Mask, Adult use with inhaler 12/07 completed Not Available Not Available Not Available Dulcolax (bisacody l) 1tab qd 05/29 completed Not Available Not Available Not Available Vitamin D3 active 25mcg Not Available Not Available Not Available multivita min active Not Available Not Available Not Available Probiotic 1 tab daily 05/17 completed Not Available Not Available Not Available loratadin e 10 mg capsule Take 1 capsule every day by oral route. active Not Available Not Available No t Available doxycycli ne 100mg capsule and topical [...] Printed: 01/26/2024 Information not available 01/26/2024 Assigned Retail Marketing Specialist: Luci Shafer Information not available 01/26/2024 Is [facility] The Lead Retail Marketing Specialist? Yes Information no t available 01/26/2024 Level Of Intensity: Annually [email or web address] Information not available 06/18/2024 Team Based Care: Yes Informat ion not [...] Yes Informa tion not available 01/26/2024 Community Accounts Receivable Assistant Yes Information not available 01/26/2024 Medication Assistance Yes Pt Relies On Caregivers Information not available 01/26/2024 Chronic Disease Management Yes Information not available 01/26/2024 Designated Agency Yes Informa tion not available 01/26/2024 Home Health Agency Yes Information not available 01/26/2024 Providers Yes Information no t available 01/26/2024 Sex: Male Functional Status None recorded. Mental Status None recorded. Family History Nothing Reported. Medical History No medical history recorded. Immunizations Vaccine Type Date Status Note Provider Nam e and Address Organization Details Recorded Time Influenza, split virus, trivalent, PF 4 completed KISHA HODGSON CMA null, [place] - [facility] 04/27/2024 13:43:24 Influenza, split virus, trivalent, preservative 6 completed Not Available [facility] 06/17/2023 06:25:24 Influenza, split virus, quadrivalent, PF 2 completed Not Available [facility] 06/17/2023 06:25:24 Influenza, split virus, quadrivalent, PF 9 completed Not Available [facility] 06/17/2023 06:25:24 Influenza, split virus, quadrivalent, PF 0 completed Not Available [facility] 06/17/2023 06:25:24 Influenza, split virus, quadrivalent, PF 1 completed Not Available [facility] 06/17/2023 06:25:24 Influenza, split virus, quadrivalent, preservative 9 completed Not Available [facility] 06/17/2023 06:25:24 COVID-19, mRNA, LNP-S, PF, 30 mcg/0.3 mL dose 1 completed Not Available [facility] 06/17/2023 06:25:25 COVID-19, mRNA, LNP-S, PF, 30 mcg/0.3 mL dose 1 completed Not Available [facility] 06/17/2023 06:25:25 COVID-19, mRNA, LNP-S, PF, 30 mcg/0.3 mL dose 1 completed Not Available [facility] 06/17/2023 06:25:25 COVID-19, mRNA, LNP-S, PF, 30 mcg/0.3 mL dose, sabrina-sucrose 2 completed Not Available [facility] 06/17/2023 06:25:25 COVID-19, mRNA, LNP-S, bivalent, PF, 30 mcg/0.3 mL dose 2 completed Not Available [facility] 06/17/2023 06:25:25 pneumococcal polysaccharide PPV23 4 completed Not Available [facility] 06/17/2023 06:25:25 influenza, unspecified formulation 4 completed Not Available [facility] 06/17/2023 06:25:25 Influenza, split virus, quadrivalent, PF 3 completed Not Available [facility] 08/19/2023 05:31:33 COVID-19, mRNA, LNP-S, PF, sabrina-sucrose, 30 mcg/0.3 mL 3 completed Not Available [facility] 08/19/2023 05:31:33 Past Encounters Encounter ID Performer Location Encounter Start Date Encounter Closed Date Diagnosis/Indication Diagnosis SNOMED-CT Code Diagnosis ICD10 Code [id number] GIANCARLO LAU MD [address] [address] 08/02/2023 13:33:29 08/02/2023 14:40:20 Counseling 120033652 Z71.9 [id number] FELIBERTO STARKS MD [address] [address] 11/07/2023 15:25:43 11/28/2023 15:02:27 Anxiety 31311423 F41.9 Tinea cruris 786921779 B 35.6 Folliculitis 59461493 L7 3.9 Intracrani al meningioma 445985879 D32.0 Neurogenic urinary bladder 438389713 N31.9 Hypertrophy of nail 3065 4002 L60.2 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 Impacted c erumen of bilateral ears 8686277298 053156 H61.23 Visual impairment 728246 003 H54.7 [id number] FELIBERTO STARKS MD [address] [address] 02/03/2024 14:47:00 02/03/2024 15:32:11 Anxiety 01435132 F41.9 Atypical pneumonia 45509 6009 J18.9 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 92256763 Q93.2 Skin lesion 00228043 L98 .9 [id number] FELIBERTO STARKS MD [address] [address] 04/24/2024 15:30:49 04/24/2024 15:32:00 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 45860681 Q93.2 Disorder of nail 5358652 8 L60.9 Anxiety 86641489 F41.9 Folliculitis 31607991 L7 3.9 Seborrheic keratosis 394 257282 L82.1 [id number] FELIBERTO STARKS MD [address] [address] 04/26/2024 12:36:07 04/26/2024 13:48:26 Administration of influenza vaccine 43528946 Z23 Goals Section Goal Description Status Start Date LastModified by Organization Details LastModified Time HH will be able to admit pt to their services and provide PT/OT and CURRICULUM COUNSELOR Waiting on Tarah the guardian to sign the paperwork Goal not achieved 024 LUCI SHAFER Information not available 01/26/2024 12:02:35 Caregivers will report signs of UTI immediately None Recorded Goal not achieved 024 LUCI SHAFER Information not available 01/26/2024 12:05:17 Health Concerns Section Related Observation LastModified by Organization Detai ls LastModified Time None Recorded Concern Status LastModified by Organization Details LastModified Time None Recorded Advance Directives Directive None Recorded Payers Encounter Date Sequence Insurance Name Policy Number Policy [place] Covered Member ID [place] Member ID Guarantor Name 08/02/2023 1 [place] [employer] Hollis Angela Pb [id number] Hollis Angela Ambriz 08/02/2023 2 [facility] (MEDICAID) Hollis Angela Pb [id number] Hollis Angela Pb 11/07/2023 1 [place] Hollis Angela Ambriz [id number] Hollis Angela Ambriz 11/07/2023 2 [facility] (MEDICAID) Hollis Angela Pb [id number] Hollis Colvine 02/03/2024 1 [place] Hollis Angela Ambriz [id number] 4 Hollissandro Ambriz 02/03/2024 2 [facility] (MEDICAID) Hollis Ambriz [id number] Hollis Ambriz 04/24/2024 1 [place] Hollis Ambriz [id number] Hollis Ambriz 04/24/2024 2 [facility] (MEDICAID) Hollis Ambriz [id number] Hollis Ambriz 04/26/2024 1 [place] Hollis Ambriz [id number] 4 Hollis Amrbiz 04/26/2024 2 [facility] (MEDICAID) Hollis Ambriz [id number] Hollis Ambriz Notes Date Note Type Note Provider Name and Address Organization Details Recorded Time 08/02/2023 text/html David's sister, Princess Clark, is here to gain a better understanding of his condition and what to expect going forward. David is now in a fdc. Tarah is very impressed with their support, [...] impairment and balance and cognitive impairment and apraxias.Tarah thinks he is happy in his new environment. The couple he lives with have dogs which she enjoys. His older caregivers are still also coming in and providing assistance.He was in the ER because of obstructed Li catheter. The plan now is to leave the catheter in place, treat only symptomatic UTIs? fever or obvious change in behavior. He will have monthly catheter changes in Dr. Houes's office.He seems to be eating okay. No obvious aspiration events. He is getting Thick-It for liquids. Tarah is unaware of any nighttime problems. GIANCARLO LAU MD [address], [place], [address], [facility]. 08/02/2023 17:04:45 11/07/2023 text/html Seen at home wit h two fdc providers (Albaro and Saranya), sister Tarah and his long time nurse who is retiring this week.His mother in May and she was his [...] of meningiomas, specifically R cerebellar meningioma. 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 [...] to keep him mobile. I also suggest CURRICULUM COUNSELOR to help adapt his ability to feed [...] refill. FELIBERTO STARKS MD [address], [place], [address], [facility]. 11/07/2023 21:42:48 02/03/2024 text/html Televist with Elieser pike, caregiver Saranya and home health PT is there as well. 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 OT/PT starting today. CURRICULUM COUNSELOR referral had been made before. PT will add RN to the order as well, I gave verbal ok for this. Foot concerns - podiatry referral scheduled in February.Sometimes seems his feet are swollen and red [...] and then congested cough, went to the [place] ED on Tuesday. Said he had bronchitis, doing nebs, cough medicine, claritin. Cough is not better. Almost croupy sounding. Saranya listened to his lungs and thought the lower lobes sounded abnormal. His dad is concerned for a skin lesion to his left cheek. Has been there a long time. Wants to make sure it isn't malignant. FELIBERTO STARKS MD [address], [place], [address], [facility]. 02/03/2024 15:40:37 04/24/2024 text/html Seen at home wit h two fdc providers (Albaro and Saranya). He is overall doing well. 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 Foot concerns - Has been seeing podiatry and nails are much better. He has had home health involved briefly, Albaro not certain how helpful this was. Recurrent UTIs - follow with urology. Anxiety - Has had improvement in behaviors and ability to leave the home for appointments since starting low dose sertraline. Today is the first day is has had some vocalizations since starting on it. Folliculitis - essentially resolved. Spot on cheek - patient's dad worried about it, hasn't changed much as far as [place] is aware. FELIBERTO STARKS MD [address], [place], [address], [place] [facility]. 04/25/2024 20:25:12
--- OUTSIDE RECORDS SUMMARY | 2024-08-10 22:30 | XMS_ITS | Encounter Summary ---
[place] [address] Care Team Providers Care Consumer Affairs Director Name Role Phone Dimas Lau MD Primary Care Provider 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 * Diagnostic Test (Routine) - Closed Specialty Diagnoses / Procedures Referred By Contac t Referred To Contact Radiology Diagnoses Neurofibromatosis, type 2 Loss of balance Meningioma Procedures MRI Brain With/WO Contrast (GENERIC) Dimas Lau MD [address] [place] [address] [place] [address] Referral ID Status Reason Start Date Expiration Date V isits Requested Visits Authorized [id number] Closed Specialty Service Requested 11/22/2016 11/22/2017 1 1 Reason for Visit * Diagnostic Test (Routine) - Closed Specialty Diagnoses / Procedures Referred By Contac t Referred To Contact Radiology Diagnoses Neurofibromatosis, type 2 Loss of balance Meningioma Procedures MRI Brain With/WO Contrast (GENERIC) Dimas Lau MD [address] [place] [address] [place] [address] Referral ID Status Reason Start Date Expiration Date V isits Requested Visits Authorized [id number] Closed Specialty Service Requested 11/22/2016 11/22/2017 1 1 Encounter Details Date Type Department Care Team (Latest Contact Info) Description 12/23/2016 2:50 PM EDT - 12/23/2016 11:59 PM EDT [place] [address] Dimas Lau MD [address] [place] [address] Neurofibromatosis, type 2; Loss of balance; Meningioma [...] mLs documented in this encounter Care Teams Consumer Affairs Director Relationship Specialty Start Date End Date Dimas Lau MD [address] [place] [address] PCP - General 06/30/10 documented as of this encounter
--- OUTSIDE RECORDS SUMMARY | 2024-08-10 22:30 | XMS_ITS | Encounter Summary ---
Author Organization [facility] [place] [address] Care Team Providers Care Resistance Machine Welder Setter Name Role Phone Dimas Lau MD Primary Care Provider [phone] Encounter Details Date Type Department Care Team (Late st Contact Info) Description 04/26/2018 1:00 PM [place] [address] Jerry, Danny Palacios MD [facility] [place] [address] Adwoa Mendez Anesthesia Record Procedure Summary Procedure [...] 1211; metacarpal vein (top of hand), right; tthh-fyb-porxkg catheter system; 20 gauge, 1 in length; [...] Edwards MD - 04/26/2018 4:54 PM EDT [facility] Department of Anesthesiology Post-procedure Note Patient: Hollis Ambriz Procedure Summary Date Anesthesia Start Anesthesia Stop Room / Location 04/26/18 1300 1629 [facility] Procedure Diagnosis Surgeon Responsible Provider MRI WITH ANESTHESIA (WRVU *) (N/A ) (NEUROFIBROMATOSIS) RESOURCE, ANESTHESIA- GUILLERMINA Danny Edwards MD All Anesthesia Providers: Anesthesiologist: Danny Edwards MD CONFERENCE INTERPRETER: Brittney Catherine CRNA Most Recent Vitals: 04/26/18 1630 BP: 107/67 Pulse: Resp: (P) 18 Temp: SpO2: 96% Pain (P) 0 (04/26/18 1625) Patient Location: PACU/[facility] Level of Consciousness: Awake and Alert [...] 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 * Anesthesia Preprocedure Evaluation - [facility], Danny Palacios MD - 04/26/2018 12:27 [...] ANESTHESIA performed by Jair, Anesthesia-Guillermina at [facility] ??? PRG UNLISTED MRI PROCEDURE 02/25/2014 MRI WITH ANESTHESIA performed by Resource, Anesthesia-Guillermina at [facility] ??? PRG UNLISTED MRI PROCEDURE N/A 01/06/2015 MRI WITH ANESTHESIA performed by JAIR ANESTHESIA-GUILLERMINA at [facility] ??? PRG UNLISTED MRI PROCEDURE N/A 12/19/2015 MRI WITH ANESTHESIA performed by JAIR, ANESTHESIA-GUILLERMINA at [facility] ??? PRG UNLISTED MRI PROCEDURE N/A 12/23/2016 MRI WITH ANESTHESIA (WRVU *) performed by JAIR ANESTHESIA-GUILLERMINA at [facility] Social History Substance Use Topics ??? Smoking [...] neurofibromatosis, meningionmas, bilateral accoustic neuromas, and vp marketing services and skin shunt. He has screening MRI yearly. He [...] risks discussed with patient. Plan discussed with CONFERENCE INTERPRETER. PAT Staff Note documented in this encounter [...] r documented in this encounter Care Teams Resistance Machine Welder Setter Relationship Specialty Start Date End Date Dimas Lau MD [address] [place] [address] PCP - General 06/30/10 documented as of this encounter
--- OUTSIDE RECORDS SUMMARY | 2024-08-10 22:30 | XMS_ITS | Encounter Summary ---
Author Organization [facility] Address [facility] [place] [address] Care Team Providers Care Business Technology Professor Name Role Phone Dimas Lau MD Primary Care Provider Encounter Details Date Type Department Care Team (Late st Contact Info) Description 02/20/2016 [place] [phone] Joseline Ward [address]N [facility] [place] [address] Social History Tobacco Use Types Packs/Day Years [...] filedocumented in this encounter Care Teams Business Technology Professor Relationship Specialty Start Date End Date Dimas Lau MD [address] [place] [address] PCP - General 06/30/10 documented as of this encounter
--- OUTSIDE RECORDS SUMMARY | 2024-08-10 22:30 | XMS_ITS | Encounter Summary ---
[place] [address] Care Team Providers Care Ginger Farmer Name Role Phone Dimas Lau MD Primary Care Provider 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 * Diagnostic Test (Routine) - Closed Specialty Diagnoses / Procedures Referred By Contac t Referred To Contact Radiology Diagnoses Loss of balance Procedures MRI Total Spine wwo Contrast Dimas Lau MD [address] [place] [address] [place] [address] Referral ID Status Reason Start Date Expiration Date V isits Requested Visits Authorized [id number] Closed Specialty Service Requested 02/15/2018 02/15/2019 1 1 * Diagnostic Test (Routine) - Specialty Diagnoses / Procedures Referred By Contac t Referred To Contact Radiology Diagnoses Loss of balance Procedures MRI Brain wwo Contrast (Generic) Dimas Lau MD [address] [place] [address] [place] [address] Referral ID Status Reason Start Date Expiration Date Visits Requested Visits Authorized [id number] Specialty Service Requested 02/15/2018 02/15/2019 1 1 Reason for Visit * Diagnostic Test (Routine) - Closed Specialty Diagnoses / Procedures Referred By Contac t Referred To Contact Radiology Diagnoses Loss of balance Procedures MRI Total Spine wwo Contrast Dimas Lau MD [address] [place] [address] [facility] [place] [address] Referral ID Status Reason Start Date Expiration Date V isits Requested Visits Authorized [id number] Closed Specialty Service Requested 02/15/2018 02/15/2019 1 1 Encounter Details Date Type Department Care Team (Latest Contact Info) Description 04/26/2018 12:30 PM EDT - 04/26/2018 11:59 PM EDT Hospital [place] [address] Dimas Lau MD [address] [place] [address] Loss of balance Discharge Disposition: [...] areas of CSF pulsation artifact on axial [id number]. No extra-axial enhancing mass is identified. Lumbar [...] may represent small schwannoma. Dimas Lau MD [facility] MRI ORDERABLES * MRI Brain wwo [...] areas of CSF pulsation artifact on axial [id number]. No extra-axial enhancing mass is identified. Lumbar [...] mLs documented in this encounter Care Teams Ginger Farmer Relationship Specialty Start Date End Date Dimas Lau MD [address] [place] [address] PCP - General 06/30/10 documented as of this encounter
--- OUTSIDE RECORDS SUMMARY | 2024-08-10 22:30 | XMS_ITS | Encounter Summary ---
[place] [address] Care Team Providers Care Top Lift Compressor Name Role Phone Dimas Lau MD Primary Care Provider Encounter Details Date Type Department Care Team (Late st Contact Info) Description 02/24/2016 [place] [address] Yolie Yoo RN Social History [...] on filedocumented in this encounter Care Teams Top Lift Compressor Relationship Specialty Start Date End Date Dimas Lau MD [address] [place] [address] PCP - General 06/30/10 documented as of this encounter
--- OUTSIDE RECORDS SUMMARY | 2024-08-10 22:30 | XMS_ITS | Encounter Summary ---
[place] [address] Care Team Providers Care Bundle Helper Name Role Phone Dimas Lau MD Primary Care Provider Encounter Details Date Type Department Care Team (Late st Contact Info) Description 10/27/2017 Telephone [place] [phone] Aida Marcos Social History Tobacco Use Types [...] on filedocumented in this encounter Care Teams Bundle Helper Relationship Specialty Start Date End Date Dimas Lau MD [address] [place] [address] PCP - General 06/30/10 documented as of this encounter
--- OUTSIDE RECORDS SUMMARY | 2024-08-10 22:31 | XMS_ITS | Encounter Summary ---
[place] [address] Care Team Providers Care Desulfurizer Operator Name Role Phone Dimas Lau MD Primary Care Provider [phone] Encounter Details Date Type Department Care Team (Late st Contact Info) Description 11/28/2012 12:22 PM [place] [phone] Tigist Mac MD McGrath, [facility] [place] [address] Anesthesia Record Procedure Summary Procedure Name Responsible [...] meningiomas presents for MR Brain to R/O TACK DRILLER shunt malfunction. Recurrent UTI, finished antibiotic course started 11/09/2012. Neurogenic bladder with need for daily straight caths. Region - Other Informed Consent: Anesthetic plan and risks discussed with mother and patient. Plan discussed with [MANAGER EDUCATION Misc. Assessment: 2008 GETA Mac 3, Gr [...] mL/hr documented in this encounter Care Teams Desulfurizer Operator Relationship Specialty Start Date End Date Dimas Lau MD [address] [place] [address] PCP - General 06/30/10 documented as of this encounter
--- OUTSIDE RECORDS SUMMARY | 2024-08-10 22:31 | XMS_ITS | Encounter Summary ---
Author Organization Count Includes [facility] [address] Care Team Providers Care Roll Tender Name Role Phone Dimas Lau MD Primary Care Provider [phone] Encounter Details Date Type Department Care Team (Late st Contact Info) Description 01/06/2015 3:05 PM [place] [phone] Kishor Gillette MD [facility] [place] [address] Anesthesia Record Procedure Summary Procedure Name Responsible [...] 01/06/15; median vein left (underside of arm); lalf-ysq-ruyhti catheter system; 22 gauge, 1 in length; distraction, intradermal injection, tolerated well, appears comfortable; 01/06/15; 1914 (cannula intact, gauze applied) 01/06/15 0000 by Ashley Hall RN 01/06/151914 by Chelsey Arrieta RN (RETIRED) Peripheral IV Line - Single Lumen 01/06/15; 1510; metacarpal vein left (top of hand); epgu-mlx-kejbfe catheter system; 18 gauge; st. naz; 01/06/15; [...] performed by Geetha Morales at [facility] ??? Unlisted mr procedure 02/25/2014 MRI WITH ANESTHESIA performed by Geetha Morales at [facility] History Substance Use Topics ??? Smoking [...] anesthesia for evaluation of meningiomas, neurofibromas, and EMERGENCY MEDICAL TECH shunt. No significant history otherwise. Plan MAC [...] r documented in this encounter Care Teams Roll Tender Relationship Specialty Start Date End Date Dimas Lau MD [address] [place] [address] PCP - General 06/30/10 documented as of this encounter
--- OUTSIDE RECORDS SUMMARY | 2024-08-10 22:31 | XMS_ITS | Encounter Summary ---
Author Organization [facility] [place] [address] Care Team Providers Care Absorption And Adsorption Engineer Name Role Phone Dimas Lau MD Primary Care Provider Encounter Details Date Type Department Care Team (Latest Contact Info) Description 12/25/2010 9:19 AM EDT - 12/25/2010 11:59 PM EDT Hospital [place] [address] CLINIC, Dimas Vance MD [address] [place] [address] Discharge Disposition: Home Social History [...] mLs documented in this encounter Care Teams Absorption And Adsorption Engineer Relationship Specialty Start Date End Date Dimas Lau MD [address] [place] [address] PCP - General 06/30/10 documented as of this encounter
--- OUTSIDE RECORDS SUMMARY | 2024-08-10 22:31 | XMS_ITS | Encounter Summary ---
Author Organization [facility] Address [address] [place] [address] Care Team Providers Care Mathematician Name Role Phone Unavailable Primary Care Provider Unavailabl e Encounter Details Date Type Department Care Team (Latest Contact Info) Description 06/02/2001 9:29 EDT - 06/02/2001 11:59 EDT Hospital Encounter [address] [address] [address] Cristina, YARITZA [address] [place] [address] Discharge Disposition: Auto Discharge Social History Tobacco [...]
--- OUTSIDE RECORDS SUMMARY | 2024-08-10 22:31 | XMS_ITS | Encounter Summary ---
Author Organization [facility] Address [address] [place] [address] Care Team Providers Care Director Ehs Name Role Phone Dimas Lau MD Primary Care Provider Encounter Details Date Type Department Care Team (Late st Contact Info) Description 06/25/2021 Lab Requisition [facility] Pathology & Laboratory Medicine - [address] [address] Outr Resulting Lab, Provider Social History Tobacco [...] MICROBIOLOGY - GENER AL ORDERABLES Final Result [facility] [address] [place] [address] * COVID-19 TESTING (06/25/2021 10:50 EST) COVID-19 rt-PCR Result Negative Negative 06/26/2021 11:40 EST [facility] Comment: This test has [...] history, and epidemiological information. Performed on the [employer] Fusion instrument Performing Lab [place] [facility] Lab 06/26/2021 11:40 EST [facility] Swab 06/25/2021 10:5 0 EST 06/25/2021 22:26 EST us Provider Outr Resulting Lab MICROBIOLOGY - GENER AL ORDERABLES Final Result [facility] [address] [place] [address] documented in this encounter Visit Diagnoses Not on filedocumented in this encounter Care Teams Director Ehs Relationship Specialty Start Date End Date Dimas Lau MD [address] [place], [place] [address] PCP - General 06/18/15 documented as of this encounter
--- OUTSIDE RECORDS SUMMARY | 2024-08-10 22:31 | XMS_ITS | Encounter Summary ---
[place] [address] Care Team Providers Care Supervisor Frame Assembly Name Role Phone Dimas Lau MD Primary Care Provider 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 * Diagnostic Test (Routine) - Closed Specialty Diagnoses / Procedures Referred By Contac t Referred To Contact Radiology Diagnoses Bilateral acoustic neuromas Procedures MRI Brain With/WO Contrast (GENERIC) Joseline Ward CHEMICAL PROCESSING EQUIPMENT REPAIRER [facility] [place] [address] [place] [address] Referral ID Status Reason Start Date Expiration Date V isits Requested Visits Authorized [id number] Closed Specialty Service Requested 11/12/2015 11/11/2016 1 1 Reason for Visit * Diagnostic Test (Routine) - Closed Specialty Diagnoses / Procedures Referred By Contac t Referred To Contact Radiology Diagnoses Bilateral acoustic neuromas Procedures MRI Brain With/WO Contrast (GENERIC) Joseline Ward [facility] [place] [address] [place] [address] Referral ID Status Reason Start Date Expiration Date V isits Requested Visits Authorized [id number] Closed Specialty Service Requested 11/12/2015 11/11/2016 1 1 Encounter Details Date Type Department Care Team (Latest Contact Info) Description 12/19/2015 12:26 PM EDT - 12/19/2015 11:59 PM EDT Hospital [place] [address] [facility] [address] [facility] [place] [address] Bilateral acoustic neuromas Discharge Disposition: Home Social [...] mLs documented in this encounter Care Teams Supervisor Frame Assembly Relationship Specialty Start Date End Date Dimas Lau MD [address] [place] [address] PCP - General 06/30/10 documented as of this encounter
--- OUTSIDE RECORDS SUMMARY | 2024-08-10 22:31 | XMS_ITS | Encounter Summary ---
[place] [address] Care Team Providers Care Take Out Waiter Name Role Phone Dimas Lau MD Primary Care Provider 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 * Diagnostic Test (Routine) - Closed Specialty Diagnoses / Procedures Referred By Contac t Referred To Contact Radiology Diagnoses Bilateral acoustic neuromas Procedures MRI Brain With/WO Contrast (GENERIC) Joseline Ward APRN [facility] [address] [place] [address] Referral ID Status Reason Start Date Expiration Date V isits Requested Visits Authorized [id number] Closed Specialty Service Requested 11/12/2015 11/11/2016 1 1 Encounter Details Date Type Department Care Team (Late st Contact Info) Description 11/12/2015 Orders [place] [address] Joseline Ward LITHOGRAPHER APPRENTICE [facility] [address] Bilateral acoustic neuromas Social History Tobacco Use [...] nerves documented in this encounter Care Teams Take Out Waiter Relationship Specialty Start Date End Date Dimas Lau MD [address] [place] [address] PCP - General 06/30/10 documented as of this encounter
--- OUTSIDE RECORDS SUMMARY | 2024-08-10 22:31 | XMS_ITS | Encounter Summary ---
[place] [address] Care Team Providers Care Property Specialist Name Role Phone Dimas Lau MD Primary Care Provider Encounter Details Date Type Department Care Team (Late st Contact Info) Description 06/27/2013 [place] [phone] Lorrie Hansen MD Social History Tobacco Use [...] on filedocumented in this encounter Care Teams Property Specialist Relationship Specialty Start Date End Date Dimas Lau MD [address] [place] [address] PCP - General 06/30/10 documented as of this encounter
--- OUTSIDE RECORDS SUMMARY | 2024-08-10 22:31 | XMS_ITS | Encounter Summary ---
[place] [address] Care Team Providers Care Palliative Nurse Name Role Phone Dimas Lau MD Primary Care Provider Encounter Details Date Type Department Care Team (Late st Contact Info) Description 12/25/2010 9:20 AM EDT - 12/25/2010 11:59 PM EDT Hospital [place] [address] Social History Tobacco Use Types Packs/Day Years [...] Shukla RN - 12/22/2010 10:21 AM EDT [facility] NURSING DATABASE Name: YURIY ALCANTAR Date of : 1965 Address: [address] [place] [address] (home) Referring Provider: Dimas Lau Reason for Visit: MRI with IV sedation Allergies Allergen Reactions ??? Carbamazepine CIS - diarrhea ??? Sulfa (Sulfonamide Antibiotics) CIS - Nausea/Vomiting ??? 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
--- OUTSIDE RECORDS SUMMARY | 2024-08-10 22:31 | XMS_ITS | Encounter Summary ---
Author Organization [facility] Address [facility] [place] [address] Care Team Providers Care Director Of Recruitment Name Role Phone Dimas Lau MD Primary Care Provider [phone] Encounter Details Date Type Department Care Team (Latest Contact Info) Description 01/06/2015 2:50 PM EDT - 01/06/2015 11:59 PM EDT Hospital Encounter MRI at [facility] [place] [address] CLINIC, Denis Durham MD [facility] [place] [address] Discharge Disposition: Home Social History Tobacco Use [...] mLs documented in this encounter Care Teams Director Of Recruitment Relationship Specialty Start Date End Date Dimas Lau MD [address] [place] [address] PCP - General 06/30/10 documented as of this encounter
--- OUTSIDE RECORDS SUMMARY | 2024-08-10 22:31 | XMS_ITS | Encounter Summary ---
[place] [address] Care Team Providers Care Meat Grinder Name Role Phone Dimas Lau MD Primary Care Provider Encounter Details Date Type Department Care Team (Late st Contact Info) Description 02/13/2016 11:00 AM EDT Office Visit Audiology at [address] [address] Jane Berrios AUD Bilateral acoustic neuromas; Unspecified [...] - 02/13/2016 11:27 AM EDT [place] [address] Hollis Ambriz, 50 y.o., was seen on 02/14/2016 for an audiologic evaluation in conjunction with in Otolaryngology. Please refer to the scanned audiogram listed under Scanned Documents in Chart Review for findings, impressions and recommendations. NOTE: Attempted picture pointing for SRT but was unsuccessful. Enclosure: Audi[place] [address] documented in this encounter Plan of Treatment Not on file documented as of this encounter Visit Diagnoses Diagnosis Bilateral acoustic neuromas Benign neoplasm of cranial nerves Unspecified hearing loss, bilateral documented in this encounter Care Teams Meat Grinder Relationship Specialty Start Date End Date Dimas Lau MD [address] [place] [address] PCP - General 06/30/10 documented as of this encounter
--- OUTSIDE RECORDS SUMMARY | 2024-08-10 22:31 | XMS_ITS | Encounter Summary ---
[place] [address] Care Team Providers Care Inward Toll Operator Name Role Phone Dimas Lau MD Primary Care Provider Encounter Details Date Type Department Care Team (Late st Contact Info) Description 11/28/2012 12:05 PM EDT - 11/28/2012 1:18 [place] [phone] RESOURCE, ANESTHESIA-NICHOL None MRI WITH ANESTHESIA (WRVU [...] 11/28/2012 5:42 PM EDTAssociated Order(s): SCAN DOC: PROTECTIVE SIGNAL INSTALLER documented in this encounter Miscellaneous Notes * Miscellaneous - Provider, Scanning - 11/28/2012 6:06 PM EDT * Miscellaneous - Provider, Scanning - 11/28/2012 11:06 AM EDT documented in this encounter Plan of Treatment Not on file documented as of this encounter Procedures Procedure Name Priority Date/Time Associated Diagnosis Comments MRI WITH ANESTHESIA (WRVU *) 11/28/2012 8:05 PM EDT Neurofibromatosis w/mengioma; ? vp marketing shunt malformation PROTECTIVE SIGNAL INSTALLER SCAN 11/28/2012 5:42 PM EDT documented in this encounter Results * SCAN DOC: PROTECTIVE SIGNAL INSTALLER (11/28/2012 5:42 PM EDT) Anatomical Region Laterality [...] CRNA) documented in this encounter Care Teams Inward Toll Operator Relationship Specialty Start Date End Date Dimas Lau MD [address] [place] [address] PCP - General 06/30/10 documented as of this encounter
--- OUTSIDE RECORDS SUMMARY | 2024-08-10 22:31 | XMS_ITS | Encounter Summary ---
Author Organization [facility] Address [facility] [place] [address] Care Team Providers Care Director Nicu Name Role Phone Dimas Lau MD Primary Care Provider Encounter Details Date Type Department Care Team (Late st Contact Info) Description 11/12/2015 Orders [place] [phone] Alex Lynn MD [facility] [place] [place] [address] Social History Tobacco Use Types Packs/Day Years [...] filedocumented in this encounter Care Teams Director Nicu Relationship Specialty Start Date End Date Dimas Lau MD [address] [place], [place] [address] PCP - General 06/30/10 documented as of this encounter
--- OUTSIDE RECORDS SUMMARY | 2024-08-10 22:31 | XMS_ITS | Encounter Summary ---
[place] [address] Care Team Providers Care Supply Chain Associate Name Role Phone Dimas Lau MD Primary Care Provider Encounter Details Date Type Department Care Team (Late st Contact Info) Description 01/06/2015 2:50 PM EDT - 01/06/2015 4:50 [place] [phone] RESOURCE, ANESTHESIA-NICHOL None MRI WITH ANESTHESIA (WRVU [...] Active and Recently Administered Medications Care Teams Supply Chain Associate Relationship Specialty Start Date End Date Dimas Lau MD [address] [place] [address] PCP - General 06/30/10 documented as of this encounter
--- OUTSIDE RECORDS SUMMARY | 2024-08-10 22:31 | XMS_ITS | Encounter Summary ---
Author Organization [facility] [place] [address] Care Team Providers Care Tail Edger Name Role Phone Dimas Lau MD Primary Care Provider [phone] Encounter Details Date Type Department Care Team (Latest Contact Info) Description 11/28/2012 12:51 PM EDT - 11/28/2012 11:59 PM EDT [place] [address] CLINIC, Dimas Vance MD [address] [place] [address] Discharge Disposition: Home Social History [...] IN KNOWN MENINGIOMAS/ACUSTIC NEUROMAS ? EVIDENCE FOR BEHAVIOR SUPPORT SPECIALIST SHUNT MALFUNCTION Comparison MR of the brain [...] IN KNOWN MENINGIOMAS/ACUSTIC NEUROMAS ? EVIDENCE FOR BEHAVIOR SUPPORT SPECIALIST SHUNT MALFUNCTION Comparison MR of the brain [...] on filedocumented in this encounter Care Teams Tail Edger Relationship Specialty Start Date End Date Dimas Lau MD [address] [place] [address] PCP - General 06/30/10 documented as of this encounter
--- OUTSIDE RECORDS SUMMARY | 2024-08-10 22:31 | XMS_ITS | Referral Summary ---
Author Organization [facility] Address [address] [place] [address] Care Team Providers Care Tank Stave Assembler Name Role Phone Dimas Lau MD Primary Care Provider [phone] Social History Tobacco Use Types Packs/Day Years Used Date Smoking Tobacco: Never Assessed Sex and Gender Information Value Date Recorded Sex Assigned at Not on file Legal Sex Male 18:14 EST Gender Identity Not on file Sexual Orientation Not on file Plan of Treatment Not on file Care Teams Tank Stave Assembler Relationship Specialty Start Date End Date Dimas Lau MD [address] [place] [address] PCP - General 06/18/15
--- OUTSIDE RECORDS SUMMARY | 2024-08-10 22:31 | XMS_ITS | Encounter Summary ---
[place] [address] Care Team Providers Care Cafe Cook Name Role Phone Dimas Lau MD Primary Care Provider Encounter Details Date Type Department Care Team (Late st Contact Info) Description 04/20/2013 [place] [phone] Lorrie Hansen MD Social History Tobacco Use [...] on filedocumented in this encounter Care Teams Cafe Cook Relationship Specialty Start Date End Date Dimas Lau MD [address] [place] [address] PCP - General 06/30/10 documented as of this encounter
--- OUTSIDE RECORDS SUMMARY | 2024-08-10 22:31 | XMS_ITS | Encounter Summary ---
Author Organization [facility] [place] [address] Care Team Providers Care Boat Builder Name Role Phone Dimas Lau MD Primary Care Provider Encounter Details Date Type Department Care Team (Latest Contact Info) Description 01/06/2015 1:53 PM EDT - 01/06/2015 7:27 PM EDT Hospital Encounter [place] [phone] RESOURCE, ANESTHESIA-NICHOL Kishor Candelario MD [facility] [place] [address] Discharge Disposition: Home Social History Tobacco Use [...] Active and Recently Administered Medications Care Teams Boat Builder Relationship Specialty Start Date End Date Dimas Lau MD [address] [place] [address] PCP - General 06/30/10 documented as of this encounter
--- OUTSIDE RECORDS SUMMARY | 2024-08-10 22:31 | XMS_ITS | Encounter Summary ---
[place] [address] Care Team Providers Care Soil Technologist Name Role Phone Dimas Lau MD Primary Care Provider Encounter Details Date Type Department Care Team (Late st Contact Info) Description 12/19/2015 12:30 PM EDT - 12/19/2015 1:50 [place] [phone] RESOURCE, ANESTHESIA-NICHOL None MRI WITH ANESTHESIA (WRVU [...] RN) documented in this encounter Care Teams Soil Technologist Relationship Specialty Start Date End Date Dimas Lau MD [address] [place] [address] PCP - General 06/30/10 documented as of this encounter
--- OUTSIDE RECORDS SUMMARY | 2024-08-10 22:31 | XMS_ITS | Encounter Summary ---
Author Organization [facility] Address [facility] [place] [address] Care Team Providers Care In Home Caregiver Name Role Phone Dimas Lau MD Primary Care Provider [phone] Encounter Details Date Type Department Care Team (Late st Contact Info) Description 12/13/2008 Orders [place] [address] Deshawn Mcgregor MD [facility] [place] [address] Social History Tobacco Use Types Packs/Day Years [...] 8:02 PM EDT) Surgical Pathology Report [id number] ? Location: [facility] The signing pathologist has (i) examined the [...] report in rendering the final pathologic diagnosis. [facility] 12/13/2008 8:02 PM EDT Deshawn Mcgregor MD PATHOLOGY/CYTOLOGY ORDERABLES Performing Organization Address City/State/[facility] Co la Phone Number [facility] documented in this encounter Visit Diagnoses Not on filedocumented in this encounter Care Teams In Home Caregiver Relationship Specialty Start Date End Date Dimas Lau MD [address] [place] [address] PCP - General 06/30/10 documented as of this encounter
--- OUTSIDE RECORDS SUMMARY | 2024-08-10 22:31 | XMS_ITS | Encounter Summary ---
Author Organization [facility] [place] [address] Care Team Providers Care Livestock Sales Representative Name Role Phone Dimas Lau MD Primary Care Provider Encounter Details Date Type Department Care Team (Late st Contact Info) Description 02/25/2014 2:14 PM EDT - 02/25/2014 6:15 PM EDT Hospital Encounter [place] [address] RESOURCE, ANESTHESIA-NICHOL Boyd Marlow MD Discharge Disposition: [...] (New Bag - Prov ider: Cheyanne Marcial, RN)1711 (New Bag - Provider: Natalie Carvajal, KENNEDY - Comment: BP low continue w/IVF until pt. awake and alert) PRN Medication Order 02/23/2014 02/24/2014 02/25/2014 gadopentetate dimeglumine (MAGNEVIST) injection 15 mL (COMPLETED) 15 mL, Intravenous, ONCE PRN, Per Protocol, Starting on Tue02/25/14 at 1604, 1 dose, Until Tue02/25/14 at 1609 1609 (Given - Provid er: Valentina Aleman) documented in this encounter Care Teams Livestock Sales Representative Relationship Specialty Start Date End Date Dimas Lau MD [address] [place] [address] PCP - General 06/30/10 documented as of this encounter
--- OUTSIDE RECORDS SUMMARY | 2024-08-10 22:31 | XMS_ITS | Encounter Summary ---
[place] [address] Care Team Providers Care Correction Worker Name Role Phone Dimas Lau MD Primary Care Provider Encounter Details Date Type Department Care Team (Late st Contact Info) Description 12/19/2015 12:49 PM ED[place] [address] Stefan Hatfield MD [facility] DR [place] [address] Alexsandra Van CRNA [facility] [address] [place] [address] Anesthesia Record Procedure Summary Procedure Name Responsible [...] an stop data 1402 Transport Transport to [facility] 1407 Recovery or ICU Handoff Giovanna ent [...] 1245; median vein right (underside of arm); nulo-axi-igusvq catheter system; 22 gauge, 1 in length; [...] Hatfield MD - 12/19/2015 4:10 PM EDT [facility] Department of Anesthesiology Post-procedure Note Patient: Hollis Ambriz Procedure Summary Date Anesthesia Start Anesthesia Stop Room / Location 12/19/15 [id number] [facility] ADULT RADIOLOGY / [facility] Procedure Diagnosis Surgeon Responsible Provider MRI WITH ANESTHESIA (N/A Brain) (BILATERAL ACOUSTIC NEUROMAS; NF, BILATERAL ACOUSTIC NEUROMA, MULTIPLE MENINGIOMAS, EVALUATE FOR CHANGE; IAC PROTOCAL FOR SKULL BASE ) RESOURCE, ANESTHESIA-Stefan Zapien MD All Anesthesia Providers: Anesthesiologist: Stefan Hatfield MD MOLDER FOAM RUBBER: Lit Bradley CRNA Last (1hr) Vitals: BP [...] performed by Jair Anesthesia-Guillermina at [facility] ??? Unlisted mr procedure 02/25/2014 MRI WITH ANESTHESIA performed by Jair, Anesthesia-Guillermina at [facility] ??? Unlisted mr procedure N/A 01/06/2015 MRI WITH ANESTHESIA performed by JAIR, ANESTHESIA-GUILLERMINA at [facility] History Substance Use Topics ??? Smoking [...] to evaluate meningionmas, bilateral accoustic neuromas, vp hr diversity shunt, neurofibromatoma Has screening MRI yearly Has [...] legal guardian and mother. Plan discussed with MOLDER FOAM RUBBER. PAT Staff Note documented in this encounter [...] hr documented in this encounter Care Teams Correction Worker Relationship Specialty Start Date End Date Dimas Lau MD [address] [place] [address] PCP - General 06/30/10 documented as of this encounter
--- OUTSIDE RECORDS SUMMARY | 2024-08-10 22:31 | XMS_ITS | Encounter Summary ---
Author Organization [facility] Address [address] [place] [address] Care Team Providers Care Padding Machine Operator Name Role Phone Unavailable Primary Care Provider Unavailabl e Encounter Details Date Type Department Care Team (Late st Contact Info) Description 06/07/2006 Results Only [facility] [address] [place] [address] Boyd Márquez, DO [address] [facility] [address] [place] [address] Social History Tobacco Use Types [...] ? YURIY ALCANTAR ? Accession #: ? [id number] ? : ? 1965 (Age: 40) ??M [...] specimen is entirely submitted as (F). ??(Sher [facility]ile/[facility] End of Report SULEMA GONZÁLES 06/07/2006 06/08/2006 10: 26 EST us Boyd Márquez DO PATHOLOGY ORDERABLES Fi nal Result SULEMA GONZÁLES [address] [place] [address] documented in this encounter Visit Diagnoses Not on filedocumented in this encounter
--- OUTSIDE RECORDS SUMMARY | 2024-08-10 22:31 | XMS_ITS | Encounter Summary ---
[place] [address] Care Team Providers Care Agronomy Professor Name Role Phone Dimas Lau MD Primary Care Provider Reason for Visit * Reason Onset Date Comments Medical Care Coordination 06/29/2013 Pt laura y called to speak with Claudette to [facility] Encounter Details Date Type Department Care Team (Late st Contact Info) Description 06/29/2013 Telephone [place] [phone] Lorrie Hansen MD Medical Care Coordination (Pt very called to speak with Claudette to [facility]) Social History Tobacco Use Types Packs/Day Years Used Date Smoking Tobacco: Never Assessed Sex and Gender Information Value Date Recorded Sex Assigned at Not on file Gender Identity Not on file Sexual Orientation Not on file documented as of this encounter Plan of Treatment Not on file documented as of this encounter Visit Diagnoses Not on filedocumented in this encounter Care Teams Agronomy Professor Relationship Specialty Start Date End Date Dimas Lau MD [address] [place] [address] PCP - General 06/30/10 documented as of this encounter
--- OUTSIDE RECORDS SUMMARY | 2024-08-10 22:31 | XMS_ITS | Encounter Summary ---
[place] [address] Care Team Providers Care Finishing Supervisor Name Role Phone Dimas Lau MD Primary Care Provider Encounter Details Date Type Department Care Team (Latest Contact Info) Description 12/19/2015 11:17 AM EDT - 12/19/2015 2:43 PM EDT Hospital Encounter [place] [phone] Stefan Mack MD [facility] [place] [address] Discharge Disposition: Home Social History Tobacco Use [...] RN) documented in this encounter Care Teams Finishing Supervisor Relationship Specialty Start Date End Date Dimas Lau MD [address] [place] [address] PCP - General 06/30/10 documented as of this encounter
--- OUTSIDE RECORDS SUMMARY | 2024-08-10 22:31 | XMS_ITS | Encounter Summary ---
[place] [address] Care Team Providers Care Senior Manager Mergers & Acquisitions Name Role Phone Dimas Lau MD Primary Care Provider Encounter Details Date Type Department Care Team (Late st Contact Info) Description 02/25/2014 3:30 PM EDT - 02/25/2014 4:30 PM [place] [phone] RESOURCE, ANESTHESIA-NICHOL None MRI WITH ANESTHESIA (WRVU [...] Aleman) documented in this encounter Care Teams Senior Manager Mergers & Acquisitions Relationship Specialty Start Date End Date Dimas Lau MD [address] [place] [address] PCP - General 06/30/10 documented as of this encounter
--- OUTSIDE RECORDS SUMMARY | 2024-08-10 22:31 | XMS_ITS | Clinical Summary ---
Author Organization [facility] Address [address] [place] [address] Care Team Providers Care Zipper Measurer Name Role Phone Dimas Lau MD Primary Care Provider [phone] Social History Tobacco Use Types Packs/Day Years [...] COVID-19 Vaccine ( season) 2024 Care Teams Zipper Measurer Relationship Specialty Start Date End Date Dimas Lau MD [address] [place] [address] PCP - General 06/18/15
--- OUTSIDE RECORDS SUMMARY | 2024-08-10 22:31 | XMS_ITS | Encounter Summary ---
[place] [address] Care Team Providers Care Measurement Department Chief Clerk Name Role Phone Dimas Lau MD Primary Care Provider [phone] Encounter Details Date Type Department Care Team (Late st Contact Info) Description 02/25/2014 3:38 [place] [phone] Boyd Joaquin MD Gaudette, Katherine A Anesthesia [...] 1453; metacarpal vein right (top of hand); sqnd-udd-trnvor catheter system; 20 gauge, 1 in length; [...] WITH ANESTHESIA performed by Christine Morales-Guillermina at [facility] History Substance Use Topics ??? [...] normal Dental Assessment: Comment: Overall poor dentician [facility] Assessment: IV access: Peripheral line Anesthesia Plan: ASA 2 general, with a(n) intravenous induction Patient is a 48 yo male presenting for MRI w/ anesthesia for evaluation of meningiomas, neurofibromas, and OPERATOR ENGINEER shunt. No significant history otherwise. Plan MAC w/ propofol gtt. Region - Other Informed Consent: Anesthetic plan and risks discussed with patient and mother. Use of blood products discussed with patient and mother whom consented to blood products. Plan discussed with attending. [facility]. Assessment: documented in this encounter Plan of [...] r documented in this encounter Care Teams Measurement Department Chief Clerk Relationship Specialty Start Date End Date Dimas Lau MD [address] [place] [address] PCP - General 06/30/10 documented as of this encounter
--- OUTSIDE RECORDS SUMMARY | 2024-08-10 22:31 | XMS_ITS | Encounter Summary ---
Author Organization [facility] Address [facility] [place] [address] Care Team Providers Care Rubber Printing Machine Operator Name Role Phone Dimas Lau MD Primary Care Provider [phone] Encounter Details Date Type Department Care Team (Latest Contact Info) Description 02/17/2012 12:21 PM EDT - 02/17/2012 11:59 PM EDT Hospital Encounter MRI at [facility] [address] CLINIC, Dimas Vance MD [address] [place] [address] Discharge Disposition: Home Social History [...] Diaz RN - 02/14/2012 11:10 AM EDT [facility] NURSING DATABASE Name: YURIY ALCANTAR Date of : 1965 AGE 46 y.o. Address: [address] [place] [address] (home) Mobile: No relevant phone numbers on [...] mg documented in this encounter Care Teams Rubber Printing Machine Operator Relationship Specialty Start Date End Date Dimas Lau MD [address] [place] [address] PCP - General 06/30/10 documented as of this encounter
--- OUTSIDE RECORDS SUMMARY | 2024-08-10 22:31 | XMS_ITS | Encounter Summary ---
Author Organization [facility] Address [facility] [place] [address] Care Team Providers Care Clinical Director Name Role Phone Dimas Lau MD Primary Care Provider [phone] Reason for Visit * Reason Comments Acoustic Neuroma Bilateral , ref by N euro Encounter Details Date Type Department Care Team (Late st Contact Info) Description 02/13/2016 1:00 PM EDT Office Visit Otolaryngology at [facility] [place] [address] Perico Ball MD [facility] DR OTOLARYNGOLOGY [place] [id number] Acoustic neuroma syndrome, right; Meningioma of cerebellum; [...] chromosome documented in this encounter Care Teams Clinical Director Relationship Specialty Start Date End Date Dimas Lau MD [address] [place] [address] PCP - General 06/30/10 documented as of this encounter
--- OUTSIDE RECORDS SUMMARY | 2024-08-10 22:31 | XMS_ITS | Encounter Summary ---
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 vp informatics shunt malformation TELEVISION PICTURE TUBE REBUILDER SCAN 11/28/2012 5:42 PM EDT documented in this encounter Results * SCAN DOC: TELEVISION PICTURE TUBE REBUILDER (11/28/2012 5:42 PM EDT) Anatomical Region Laterality [...] CRNA) documented in this encounter Care Teams Lawn Sprinkler Servicer Relationship Specialty Start Date End Date Dimas Lau MD [address] [place] [address] PCP - General 06/30/10 documented as of this encounter
[2024-08-10] MEDS: MAGNESIUM SULFATE 2 GM/50 ML BAG IV_INF (23:52)
[2024-08-11] VITALS (93 sets, daily range): BP systolic 93–142; BP diastolic 53–82; PULSE 58–83; RESP 2–26; TEMP 36.6–37.2; O2SAT 92–100
--- NOTE | 2024-08-11 01:01 | W.PC.ACHO ---
Registration Status: Primary Language: Preferred Language: ED Information & Data Chief Complaint Fever 08/10/24 20:53 Triage Note non verbal and hxo 08/10/24 16:18 aspiration presents with fever 102.8 at home and new oxygen requirement. pt is nonverbal and lives with caregivers. 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) Acute UTI Urethral stricture Wheelchair dependent Developmental non-verbal disorder Urinary retention Meningioma Neurofibromatosis 2 (Last Reviewed 08/10/24 @ 23:25 by Kishor Trujillo) S/P craniotomy S/P FOREP[employer]UC[employer] shunt Most Recent Vital Signs Temperature 36.7 C 08/10/24 22:45 Temperature Source Temporal Artery Scan 08/10/24 22:45 Pulse 69 08/11/24 00:07 Pulse 63 08/10/24 23:31 Respiratory Rate 14 08/11/24 00:07 Blood Pressure 100/54 L 08/10/24 23:31 Blood Pressure Mean 69 08/10/24 23:31 Blood Pressure Position Supine 08/10/24 17:36 Pulse Oximetry 97 08/11/24 00:07 Oxygen Delivery Method Room Air 08/11/24 00:00 Oxygen Flow Rate 0 08/11/24 00:00 Allergies carbamazepine (From Tegretol) Allergy (Unknown, Verified 08/10/24 16:28) Unknown gabapentin (From Neurontin) Allergy (Unknown, Verified 08/10/24 16:28) Unknown risperidone (From Risperdal) Allergy (Unknown, Verified 08/10/24 16:28) Unknown Sulfa (Sulfonamide Antibiotics) Adverse Reaction (Mild, Verified 08/10/24 16:28) Per pt. mother causes stomach ache haldol Adverse Reaction (Unknown, Uncoded 08/10/24 16:28) Other (See Comment) unknown per caregiver, was listed as allergy by pt mother Precautions Isolation Standard precaution 08/10/24 17:36 Active Medications Generic Name Dose Route Start Last Admin Trade Name Freq PRN Reason Stop Dose Admin Albuterol/Ipratropium 3 ml 08/11/24 00:00 08/11/24 00:00 Albuterol/Ipratropium 3 Ml Upd Vial UPD 3 ml Q6H TONG Administration Sodium Chloride 1,000 mls @ 250 mls/hr 08/10/24 19:30 08/10/24 20:17 Saline 1000ml Bag IV 250 mls/hr INFUSION TONG Administration Piperacillin Sod/Tazobactam 50 mls @ 100 mls/hr 08/11/24 00:00 08/11/24 00:00 Sod 3.375 gm/ Sodium Chloride IVPB 100 mls/hr Q6H TONG Administration Magnesium Sulfate 2 gm in 50 mls @ 25 mls/hr 08/11/24 00:00 08/10/24 23:52 IV_INF 08/11/24 01:59 25 mls/hr NOW ONE Administration IV IV Catheter Type [Left Wrist] Peripheral IV IV Catheter Type [Left Peripheral IV Antecubital] IV Catheter Gauge [Left Wrist] 20 IV Catheter Gauge [Left 18 Antecubital] Diet Orders Category Date Time Status Regular/Normal [DIET] Nutrition 08/11/24 Breakfast Active Diagnostics 08/11/24 08/11/24 08/10/24 Range/Units 08:30 05:35 21:47 WBC Pending (4.4-10.8) 10^3/uL RBC Pending (4.36-5.78) 10^6/uL Hgb Pending (13.5-17.5) g/dL Hct Pending (40.0-50.0) % MCV Pending (80-95) fL MCH Pending (27.0-33.0) pg MCHC Pending (32.0-36.0) % RDW Pending (11.8-14.1) % Plt Count Pending (130-400) 10^3/uL MPV Pending (8.0-11.0) fL Immature Gran % Pending % Neutrophils % Pending % Band Neutrophils % % Lymphocytes % Pending % Monocytes % Pending % Eosinophils % Pending % Basophils % Pending % Nucleated RBC % (0.0-0.3) % Absolute Neutrophils Pending (1.2-6.7) 10^3/uL Absolute Lymphocytes Pending (1.2-3.4) 10^3/uL Absolute Monocytes Pending (0.1-0.8) 10^3/uL Absolute Eosinophils Pending (0.0-0.7) 10^3/uL Absolute Basophils Pending (0.0-0.2) 10^3/uL RBC Morphology VBG pH (7.31-7.41) VBG pCO2 (41-51) mmHg VBG pO2 mmHg VBG HCO3 (23-28) mmol/L VBG Total CO2 (24-29) mmol/L VBG O2 Saturation % VBG Base Excess (-2-3) mmol/L VBG Lactate Pending 1.1 (0.6-1.4) mmol/L Sodium Pending (136-145) mmol/L Potassium Pending (3.5-5.1) mmol/L Chloride Pending (98-107) mmol/L Carbon Dioxide Pending (21.0-32.0) mmol/L Anion Gap Pending (3-11) mmol/L BUN Pending (7-18) mg/dL Creatinine Pending (0.70-1.30) mg/dL Est GFR (CKD-EPI 2020) Pending (mL/min/1.73m2) Glucose Pending (74-106) mg/dL Calcium Pending (8.5-10.1) mg/dL Magnesium Pending (1.8-2.4) mg/dL Total Bilirubin (0.2-1.0) mg/dL AST (15-37) U/L ALT (16-63) U/L Alkaline Phosphatase (46-116) U/L Troponin I (<or=76) ng/L Total Protein (6.4-8.2) g/dL Albumin (3.4-5.0) g/dL Procalcitonin ng/mL Urine Color (Yellow) Urine Clarity (Clear) Urine pH (5-8) Ur Specific [place] (1.005-1.025) Urine Protein (Neg-Trace) mg/dL Urine Ketones (Negative) mg/dL Urine Blood (Negative) Urine Nitrite (Negative) Urine Bilirubin (Negative) Urine Urobilinogen (Up to 0.2) mg/dL Ur Leukocyte Esterase (Negative) Urine RBC Urine WBC (0-5) HPF Ur Epithelial Cells Urine Crystals Urine Bacteria Urine Casts Urine Mucus Ur Culture Indicated? Urine Glucose (Negative) mg/dL COVID-19 Source SARS-CoV-2 (PCR) (Negative) Influenza Type A (PCR) (Negative) Influenza Type B (PCR) (Negative) RSV (PCR) (Negative) 08/10/24 08/10/24 08/10/24 Range/Units 20:35 17:53 17:04 WBC (4.4-10.8) 10^3/uL RBC (4.36-5.78) 10^6/uL Hgb (13.5-17.5) g/dL Hct (40.0-50.0) % MCV (80-95) fL MCH (27.0-33.0) pg MCHC (32.0-36.0) % RDW (11.8-14.1) % Plt Count (130-400) 10^3/uL MPV (8.0-11.0) fL Immature Gran % % Neutrophils % % Band Neutrophils % % Lymphocytes % % Monocytes % % Eosinophils % % Basophils % % Nucleated RBC % (0.0-0.3) % Absolute Neutrophils (1.2-6.7) 10^3/uL Absolute Lymphocytes (1.2-3.4) 10^3/uL Absolute Monocytes (0.1-0.8) 10^3/uL Absolute Eosinophils (0.0-0.7) 10^3/uL Absolute Basophils (0.0-0.2) 10^3/uL RBC Morphology VBG pH (7.31-7.41) VBG pCO2 (41-51) mmHg VBG pO2 mmHg VBG HCO3 (23-28) mmol/L VBG Total CO2 (24-29) mmol/L VBG O2 Saturation % VBG Base Excess (-2-3) mmol/L VBG Lactate (0.6-1.4) mmol/L Sodium (136-145) mmol/L Potassium (3.5-5.1) mmol/L Chloride (98-107) mmol/L Carbon Dioxide (21.0-32.0) mmol/L Anion Gap (3-11) mmol/L BUN (7-18) mg/dL Creatinine (0.70-1.30) mg/dL Est GFR (CKD-EPI 2020) (mL/min/1.73m2) Glucose (74-106) mg/dL Calcium (8.5-10.1) mg/dL Magnesium (1.8-2.4) mg/dL Total Bilirubin (0.2-1.0) mg/dL AST (15-37) U/L ALT (16-63) U/L Alkaline Phosphatase (46-116) U/L Troponin I 12 12 (<or=76) ng/L Total Protein (6.4-8.2) g/dL Albumin (3.4-5.0) g/dL Procalcitonin ng/mL Urine Color Yellow (Yellow) Urine Clarity Cloudy (Clear) Urine pH 7.0 (5-8) Ur Specific [place] 1.025 (1.005-1.025) Urine Protein >=300 H (Neg-Trace) mg/dL Urine Ketones 15 H (Negative) mg/dL Urine Blood Moderate H (Negative) Urine Nitrite Positive H (Negative) Urine Bilirubin Negative (Negative) Urine Urobilinogen 0.2 (Up to 0.2) mg/dL Ur Leukocyte Esterase Moderate H (Negative) Urine RBC TNP Urine WBC >50 H (0-5) HPF Ur Epithelial Cells TNP Urine Crystals TNP Urine Bacteria TNP Urine Casts TNP Urine Mucus TNP Ur Culture Indicated? Yes Urine Glucose Negative (Negative) mg/dL COVID-19 Source SARS-CoV-2 (PCR) (Negative) Influenza Type A (PCR) (Negative) Influenza Type B (PCR) (Negative) RSV (PCR) (Negative) 08/10/24 08/10/24 Range/Units 16:48 16:38 WBC 19.52 H (4.4-10.8) 10^3/uL RBC 4.93 (4.36-5.78) 10^6/uL Hgb 14.2 (13.5-17.5) g/dL Hct 43.2 (40.0-50.0) % MCV 88 (80-95) fL MCH 28.8 (27.0-33.0) pg MCHC 32.9 (32.0-36.0) % RDW 13.5 (11.8-14.1) % Plt Count 170 (130-400) 10^3/uL MPV 11.2 H (8.0-11.0) fL Immature Gran % 0.0 % Neutrophils % 92.0 % Band Neutrophils % 1 % Lymphocytes % 1.0 % Monocytes % 6.0 % Eosinophils % 0.0 % Basophils % 0.0 % Nucleated RBC % 0.0 (0.0-0.3) % Absolute Neutrophils 18.15 H (1.2-6.7) 10^3/uL Absolute Lymphocytes 0.20 L (1.2-3.4) 10^3/uL Absolute Monocytes 1.17 H (0.1-0.8) 10^3/uL Absolute Eosinophils 0.00 (0.0-0.7) 10^3/uL Absolute Basophils 0.00 (0.0-0.2) 10^3/uL RBC Morphology Normal VBG pH 7.38 (7.31-7.41) VBG pCO2 48 (41-51) mmHg VBG pO2 39 mmHg VBG HCO3 28 (23-28) mmol/L VBG Total CO2 25 (24-29) mmol/L VBG O2 Saturation 70 % VBG Base Excess 3 (-2-3) mmol/L VBG Lactate 2.4 H* (0.6-1.4) mmol/L Sodium 138 (136-145) mmol/L Potassium 3.8 (3.5-5.1) mmol/L Chloride 101 (98-107) mmol/L Carbon Dioxide 28.8 (21.0-32.0) mmol/L Anion Gap 8.2 (3-11) mmol/L BUN 15 (7-18) mg/dL Creatinine 1.3 (0.70-1.30) mg/dL Est GFR (CKD-EPI 2020) 63.28 (mL/min/1.73m2) Glucose 127 H (74-106) mg/dL Calcium 8.6 (8.5-10.1) mg/dL Magnesium 1.2 L (1.8-2.4) mg/dL Total Bilirubin 0.54 (0.2-1.0) mg/dL AST 13 L (15-37) U/L ALT 19 (16-63) U/L Alkaline Phosphatase 113 (46-116) U/L Troponin I 14 (<or=76) ng/L Total Protein 6.9 (6.4-8.2) g/dL Albumin 3.1 L (3.4-5.0) g/dL Procalcitonin 3.57 ng/mL Urine Color (Yellow) Urine Clarity (Clear) Urine pH (5-8) Ur Specific [place] (1.005-1.025) Urine Protein (Neg-Trace) mg/dL Urine Ketones (Negative) mg/dL Urine Blood (Negative) Urine Nitrite (Negative) Urine Bilirubin (Negative) Urine Urobilinogen (Up to 0.2) mg/dL Ur Leukocyte Esterase (Negative) Urine RBC Urine WBC (0-5) HPF Ur Epithelial Cells Urine Crystals Urine Bacteria Urine Casts Urine Mucus Ur Culture Indicated? Urine Glucose (Negative) mg/dL COVID-19 Source Nasopharynx SARS-CoV-2 (PCR) Negative (Negative) Influenza Type A (PCR) Negative (Negative) Influenza Type B (PCR) Negative (Negative) RSV (PCR) Negative (Negative) 08/10/24 17:04 Urine Culture - Pending Urine - Reflex from Ua 08/10/24 16:48 Blood Culture - Pending Blood 08/10/24 16:48 Blood Culture - Pending Blood Intake and Output - 24 Hour Total 08/10/24 15:45 thru 08/10/24 22:55 Intake Total 1250 Balance 1250 Weight 73.7 kg Intake: IV 1250 Other: Comment Li catheter in place chronically. Falls Risk Assessment History of Falls Previous History 08/10/24 18:05 Contributing Factors Confusion,Unstable, 08/10/24 18:05 Impairments Ambulatory Aids Uses ambulatory device + 08/10/24 18:05 Tubes/Lines W/no contributing factors 08/10/24 18:05 Gait Evaluation W/any additional score 08/10/24 18:05 Cognition Cognitive impairment 08/10/24 18:05 Fall Total Score 99 08/10/24 18:05 Level of Risk Maximum Risk 08/10/24 18:05 Problems (Last Updated 08/10/24 @ 23:26 by Kishor Trujillo) Gaseous distention of intestine determined by X-ray (Acute) Hypoxic respiratory failure (Acute) Goals of care, counseling/discussion (Acute) Septic shock (Acute) Closed nondisplaced bimalleolar fracture of right ankle (Acute) Neurogenic bladder (Acute) Complicated UTI (urinary tract infection) (Acute) v v v v v v v v v Sending and/or Receiving Nurses: Please use comment section below to note any information pertinent to the patient hand-off not included above. Information / Comments: Report received from: Alexsandra Arana RN
[2024-08-11] MEDS: Normal Saline 1,000 ML 250 ML IV (01:14)
[2024-08-11] MEDS: PIPERACILLIN/TAZO 3.375 GM in Normal Saline 50 ML IVPB ×4 (05:13→18:55)
[2024-08-11] MEDS: Albuterol/Ipratropium 3 ML UPD VIAL UPD ×2 (05:44)
[2024-08-11] MEDS: Normal Saline 1,000 ML 150 ML IV ×3 (06:06→22:31)
[2024-08-11 06:30] LABS: Absolute Eosinophil Count 0.02 10^3/uL (0.0-0.7); Absolute Lymphocyte Count 0.58 10^3/uL (1.2-3.4); Absolute Monocyte Count 0.32 10^3/uL (0.1-0.8); Basophils % 0.1 %; Eosinophils % 0.1 %; HCT 36.9 % (40.0-50.0); HGB 11.9 g/dL (13.5-17.5); Immature Grans % 0.5 %; Lactate 3.4 mmol/L (0.6-1.4); Lymphocytes % 2.7 %; MCH 28.5 pg (27.0-33.0); MCHC 32.2 % (32.0-36.0); MCV 89 fL (80-95); MPV 10.8 fL (8.0-11.0); Monocytes % 1.5 %; Neutrophils % 95.1 %; Platelet Count 144 10^3/uL (130-400); RBC 4.17 10^6/uL (4.36-5.78); RDW 13.9 % (11.8-14.1); RDW-SD 45.3 fL; WBC 21.59 10^3/uL (4.4-10.8)
[2024-08-11 06:40] LABS: Anion Gap 7.5 mmol/L (3-11); BUN 16 mg/dL (7-18); CO2 24.5 mmol/L (21.0-32.0); CREATININE 1.5 mg/dL (0.70-1.30); Calcium 7.6 mg/dL (8.5-10.1); Chloride 106 mmol/L (98-107); Glucose 217 mg/dL (74-106); Magnesium 2.1 mg/dL (1.8-2.4); Potassium 4.2 mmol/L (3.5-5.1); Sodium 138 mmol/L (136-145)
[2024-08-11 06:44] LABS: Absolute Basophil Count 0.02 10^3/uL (0.0-0.2); Absolute Neutrophil Count 20.53 10^3/uL (1.2-6.7)
[2024-08-11] MEDS: DOXYCYCLINE 100 MG in Normal Saline 100 ML IVPB ×2 (06:45→18:49)
[2024-08-11 07:05] LABS: Diff Comment Diff Reviewed; RBC Morphology Normal
--- NOTE | 2024-08-11 07:42 | NUR.NOTE ---
Access chart to reconcile EKG orders with EKG's in [facility]. EKG not read, in active status in [facility]. Nursing Note:
[2024-08-11] MEDS: Enoxaparin 40 MG/0.4 ML SYR SC (09:23)
[2024-08-11] MEDS: Potassium Chloride 10 MEQ TABCR PO ×2 (09:24→19:45)
[2024-08-11] MEDS: Polyethylene Glycol 3350 17 GM PACKET PO (09:24)
[2024-08-11] MEDS: Loratidine 10 MG TAB PO (09:25)
[2024-08-11] MEDS: Sertraline 50 MG TAB PO (09:25)
[2024-08-11] MEDS: Multivitamin TAB 1 TAB PO (09:25)
[2024-08-11] MEDS: Cholecalciferol (Vitamin D3) 1,000 UNIT TAB 1000 UNITS PO (09:25)
[2024-08-11] MEDS: Lidocaine 2% Jelly 6 ML SYR TP (09:42)
--- NOTE | 2024-08-11 10:08 | PDOC.CMIN ---
Date of service: 08/11/24 Time of Service: 10:09 Care Management Initial Assmt Initial Assessment Reason for Hospitalization: Severe sepsis, UTI Functional Status/Living Situation Patient Presentation: Per report, Hollis has been doing well today; his caregiver, Saranya has been in to feed him meals. He has had visits from his sisters, his father and his caregivers today. Per report, he is on IV antibiotics, and is showing improvement. CM will continue to follow. Town of Residence: [place] Resides with: Other ([facility] WITH [facility] home care providers) Significant Other/Family: Local Caregiver/Guardian: Guardian, Tarah Clark (sister) caregivers, Albaro and Saranya Lobo Natural Supports: Father, Cam Ambriz Sister and Brother in law, Tarah and Kwame Clark Employment Status: Disabled Instrumental Activities of Daily Living (ADLs): Requires support Medications Medication Management: No Issues/Barriers identified (receives support from caregivers) Physical Functioning/Mobility Assistive Device: w/c Advance Directives Advance Directives: Do you have an Advance Directive: N 05/09/23 09:06 AD On File at [facility]: N 05/09/23 09:06 Date Asked 08/10/24 08/10/24 16:16 AD Date Reviewed COLST On File at [facility] No 08/10/24 16:16 COLST Date Scanned Code Status Resuscitation Status DNR/DNI Insurance Coverage/Financial Issues Insurance: [facility] Care Team Visit Care Team Role Provider Type Freida Starks Primary Care Provider MD [facility] STAFF PHYSICIAN EWA [facility] Emergency Provider [employer] Kishor Trujillo Admit Provider [facility] STAFF PHYSICIAN Attending Provider Discharge Potential Discharge Needs: Consult Consult Services Needed: Palliative Anticipated Barriers to Discharge: None Identified Patient/Family Education Needs: Review discharge instructions, discuss Ask Me Three Transportation: EMS Plan: Anticipate Hollis will return home with a resumption of his caregiver support. He will transport via EMS, coordinated by CM. He will follow up with his PCP and his discharge plan of care. CM will continue to follow. Social Determinants of Health Screening Social Determinants of Health last assessed: 08/11/24 Will the Patient Participate in the Screening?: Yes Do you worry about having a steady place to live?: no Problems where you live: no known problems In the past 12 months, have you had to go without electric, gas, oil or water in your home?: no Have you or anyone in your house had to go without enough food to eat?: no Has lack of transportation kept you from medical appointments or from doing things needed for daily living?: no Has anyone in your life made you feel unsafe or unsupported?: no How hard is it for you to pay for the very basics like food, housing, medical care, and heating? Would you say it is:: Not hard at all Do you want help finding or keeping work or a job?: I do not need or want help If for any reason you need help with day-to-day activities such as bathing, preparing meals, shopping, managing finances, etc., do you get the help you need?: I get all the help I need How often do you feel lonely or isolated from those around you?: Never Do you speak a language other than Bahamian at home?: No Does the patient want assistance with any of the above?: No Social Determinants of Health Comments(SDOH Details): Answers gather from patient's caretakers; patient is non-verbal. PFSH All Active Problems (Updated 08/10/24 @ 23:29 by Kishor Trujillo) Gaseous distention of intestine determined by X-ray (Acute) Hypoxic respiratory failure (Acute) Goals of care, counseling/discussion (Acute) Septic shock (Acute) Closed nondisplaced bimalleolar fracture of right ankle (Acute) Closed pilon fracture of right tibia (Acute) Edema (Acute) Atherosclerosis of artery of both lower extremities (Acute) Onychogryphosis (Acute) Nail dystrophy (Acute) Onychomycosis (Acute) Neurogenic bladder (Acute) Sepsis (Acute) Complicated UTI (urinary tract infection) (Acute) Community acquired pneumonia (Acute) DVT prophylaxis (Acute) Urinary catheter insertion/adjustment/removal (Acute) Diarrhea (Acute) Neurogenic bladder (Acute) Discharge planning issues (Acute) Bacteremia (Acute) Medical History (Updated 08/10/24 @ 23:29 by Kishor Trujillo) 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) Acute UTI Urethral stricture Wheelchair dependent 2 assist Developmental non-verbal disorder Urinary retention Meningioma Neurofibromatosis 2 Surgical History S/P craniotomy S/P [employer] shunt Social History (Updated 08/10/24 @ 23:27 by Kishor Trujillo) Smoking/Tobacco Use Status: Never Smoking risk assessment performed?: Yes Alcohol Intake: never Drug use: Never Substance use type: does not use Caregiver/Support person: Yes (parents are primary caretakers) Household members: family Housing: house Do you feel safe at home: Yes Do you feel safe in your relationship?: Yes Additional Social history: sister Tarah is guardian. He lives with Lana and her (in home care) and has other aids to help
[2024-08-11] MEDS: Normal Saline Flush 10 ML SYR IVP ×2 (10:13→20:02)
--- NOTE | 2024-08-11 11:01 | PHA.REVIEW2 ---
Pharmacy Admission Review Admission Clinical Review Admission Pharmacy Review: Gaseous distention of intestine determined by X-ray (Acute) Hypoxic respiratory failure (Acute) Goals of care, counseling/discussion (Acute) Septic shock (Acute) Closed nondisplaced bimalleolar fracture of right ankle (Acute) Neurogenic bladder (Acute) Complicated UTI (urinary tract infection) (Acute) carbamazepine (From Tegretol) Allergy (Unknown, Verified 08/10/24 16:28) Unknown gabapentin (From Neurontin) Allergy (Unknown, Verified 08/10/24 16:28) Unknown risperidone (From Risperdal) Allergy (Unknown, Verified 08/10/24 16:28) Unknown Sulfa (Sulfonamide Antibiotics) Adverse Reaction (Mild, Verified 08/10/24 16:28) Per pt. mother causes stomach ache haldol Adverse Reaction (Unknown, Uncoded 08/10/24 16:28) Other (See Comment) Resuscitation Status DNR/DNI Height 5 ft 8 in Weight 76.1 kg Pharmacy Admission Review Renal Dosing Renal Dosing: BUN 16 mg/dL (7-18) 08/11/24 06:20 Creatinine 1.5 mg/dL (0.70-1.30) H 08/11/24 06:20 Medications needing adjustments: Reviewed (CrCl 57 mL/min, SCr increased from 1.3) List of meds needing interventions: Current medications are okay Anticoagulation Anticoagulation: Hgb 11.9 g/dL (13.5-17.5) L D 08/11/24 06:20 Hct 36.9 % (40.0-50.0) L 08/11/24 06:20 Plt Count 144 10^3/uL (130-400) 08/11/24 06:20 Creatinine 1.5 mg/dL (0.70-1.30) H 08/11/24 06:20 DVT Prophylaxis: Reviewed (hgb decreased from 14.2) Medications: Enoxaparin (40mg daily) Relevant Labs Relevant Labs: Sodium 138 mmol/L (136-145) 08/11/24 06:20 Potassium 4.2 mmol/L (3.5-5.1) 08/11/24 06:20 Chloride 106 mmol/L (98-107) 08/11/24 06:20 Magnesium 2.1 mg/dL (1.8-2.4) 08/11/24 06:20 Electrolytes, C-Reactive P, ESR: Reviewed Cardiac Review Cardiac Review: Troponin I 12 ng/L (<or=76) 08/10/24 20:35 BP, HR, EF%: Reviewed (HR and BP WNL) QTc Review QTc: Reviewed (EKG report pending) IV to PO Switch IV Medications: Reviewed (doxycycline and Zosyn) Home Meds Home Med List reviewed: Intervened Relevent Home Meds Not ordered & why?: clotrimazole cream Home med list had sertraline 50mg and 25mg listed. Reached out to nursing to see what dose he takes at home. Per nurse patient takes 50mg daily (matches up with fill history). Took sertraline 25mg off of home med list and canceled order. Current Meds Current Medication Order Review: Intervened Comments: Added IV admission order set Changed Miralax order from bottle to packet per pharmacy protocol Pharmacy Antibiotic Review Relevant Labs: Relevant Labs 08/10/24 16:48 Procalcitonin 3.57 WBC 21.59 10^3/uL (4.4-10.8) H 08/11/24 06:20 Procalcitonin 3.57 ng/mL 08/10/24 16:48 Temperature 36.6 C Temperature 37.1 C Pharmacy Antibiotic Activity: C/S review and Reviewed, no change Comments: Patient is on doxycycline and Zosyn 3.375g q6h, day 1, for severe sepsis/UTI. Reached out to provider to confirm Zosyn dose as recommended dose for sepsis is 4.5g q6h. Per provider patient stable and will keep dose at the 3.375g. WBC increased from 19.52 and urine/blood cultures pending.
--- NOTE | 2024-08-11 12:36 | W.PM.PROGNOT ---
Date of Service Date of service: 08/11/24 Time of Service: 12:36 Assessment and Plan Assessment and plan (1) Septic shock: Status: Acute Assessment and plan: Meets sepsis criteria with fever, elevated WBC, low blood pressure in setting of infection. UTI appears to be the source, also possible aspriation, although he is also at risk for GROUP ACCOUNT DIRECTOR infection with his shunt. He has received 2 liters of NS per ED clinician and is on 250ml/hr and MAP still <65mmHg. His sister/guardian is very clear that she does not want aggressive care including pressors or additional more aggressive diagnostic evaluations including CT C/A/P or LP. Given this, will continue fluids and antibiotics, admit to ICU, but no pressors unless they change their mind. 25 Will replace lyles. Urine culture shows pseudomonas and blood culture show GNRx2 with sensitivities pending. C/W zosyn. VS are reassuring (2) Complicated UTI (urinary tract infection): Status: Acute Assessment and plan: As above likely source. Previous cultures reviewed. He got ceftriaxone in the ED, but I am using pip/tazo to cover all recent cultures including pseudomonas and resistant Klebsiella. (3) Hypoxic respiratory failure: Status: Acute Assessment and plan: As above could simply be sepsis related but also has history of aspiration and poor quality XR makes it hard to rule this out. Doxycycline added to pip/tazo in the ED, will continue this. I don't think MRSA coverage is indicated. Treat aspiraiton, monitor, O2 prn and nebs for now as these have helped after aspiration in the past. .25 CW doxycycline for now (4) Neurogenic bladder: Status: Acute Assessment and plan: Chronic. Lyles changed in the ED per report. see subjective as well as number #1 (5) Gaseous distention of intestine determined by X-ray: Status: Acute Assessment and plan: In setting of sepsis we would typically want CT, but declined by guardian. He is not obstructed clinically, not clearly in pain on exam. Monitor clinically 08/11/24 Will order abdominal film. Some concern for ileus vs SBO 2/2 recent episodes of emesis but appetite has improved (6) Closed nondisplaced bimalleolar fracture of right ankle: Status: Acute Assessment and plan: This happened over a month ago and cast due for removal. Will ask ortho to come by once is is medically stable. (7) Goals of care, counseling/discussion: Status: Acute Assessment and plan: Sister/guardian is very clear and consistent with ED providers and me about limited aggressive care. She understands we would typically use pressors and more diagnostic evaluation. Will consult palliative care given these goals of care to provide any additional resources to keep him comfortable while dealing with complex medical conditions. Subjective Subjective Interval history since last seen: Pt seen and examined in the ICU this am. Pt is nonverbal but his caregivers are at bedside. Per caregivers, his lyles was not changed in the ED although it was documented that it was done. POC d/w bedside nurse during ICU huddle. Exam Narrative Exam Narrative: GEN: Alert, initially holds eyes closed but more alert later in exam, non-verbal, doesn't follow commands but responds to touch. No acute distress at rest. HEENT: Head atraumatic. Conjunctiva clear, no icterus. PEERL, EOMI. no rhinorrhea. MMM, OP benign. Neck is supple with no masses or lymphadenopathy, no JVP elevation, trachea midline LUNGS: CTAB other that slight rale right base, normal effort, NC in place. CV: RRR with no murmurs, gallops, or rubs. ABD: active bowel sounds, soft, nontender to deep palpation, moderate soft distension, no fluid wave noted. No masses. EXT: no cyanosis, clubbing, or edema. toes warm. MSK: No joint redness or swelling, RLE in cast below knee. NEURO: CN 2-12 grossly intact. Normal movement of 4 extremities. Normal speech and coordination. No tremor SKIN: No rashes. No open wounds, but red spot with slight scab left 3rd toe PIP (over hammer toe), red patch left mota (healed friction sore per caregiver). PSYCH: non-verbal, mimally interactive : lyles in place with dried blood and appears clogged Objective Last Vital Signs Temp 36.6 C 08/11/24 05:00 Pulse 68 08/11/24 11:01 Resp 14 08/11/24 11:01 BP 111/58 L 08/11/24 11:01 Pulse Ox 95 08/11/24 11:01 Laboratory Results - last 24 hr 08/10/24 08/10/24 08/10/24 16:38 16:48 17:04 WBC 19.52 H RBC 4.93 Hgb 14.2 Hct 43.2 MCV 88 MCH 28.8 MCHC 32.9 RDW 13.5 Plt Count 170 MPV 11.2 H Immature Gran % 0.0 Neutrophils % 92.0 Band Neutrophils % 1 Lymphocytes % 1.0 Monocytes % 6.0 Eosinophils % 0.0 Basophils % 0.0 Nucleated RBC % 0.0 Absolute Neutrophils 18.15 H Absolute Lymphocytes 0.20 L Absolute Monocytes 1.17 H Absolute Eosinophils 0.00 Absolute Basophils 0.00 RBC Morphology Normal VBG pH 7.38 VBG pCO2 48 VBG pO2 39 VBG HCO3 28 VBG Total CO2 25 VBG O2 Saturation 70 VBG Base Excess 3 VBG Lactate 2.4 H* Sodium 138 Potassium 3.8 Chloride 101 Carbon Dioxide 28.8 Anion Gap 8.2 BUN 15 Creatinine 1.3 Est GFR (CKD-EPI 2020) 63.28 Glucose 127 H Calcium 8.6 Magnesium 1.2 L Total Bilirubin 0.54 AST 13 L ALT 19 Alkaline Phosphatase 113 Troponin I 14 Total Protein 6.9 Albumin 3.1 L Procalcitonin 3.57 Urine Color Yellow Urine Clarity Cloudy Urine pH 7.0 Ur Specific [place] 1.025 Urine Protein >=300 H Urine Ketones 15 H Urine Blood Moderate H Urine Nitrite Positive H Urine Bilirubin Negative Urine Urobilinogen 0.2 Ur Leukocyte Esterase Moderate H Urine RBC TNP Urine WBC >50 H Ur Epithelial Cells TNP Urine Crystals TNP Urine Bacteria TNP Urine Casts TNP Urine Mucus TNP Ur Culture Indicated? Yes Urine Glucose Negative COVID-19 Source Nasopharynx SARS-CoV-2 (PCR) Negative Influenza Type A (PCR) Negative Influenza Type B (PCR) Negative RSV (PCR) Negative 08/10/24 08/10/24 08/10/24 17:53 20:35 21:47 WBC RBC Hgb Hct MCV MCH MCHC RDW Plt Count MPV Immature Gran % Neutrophils % Band Neutrophils % Lymphocytes % Monocytes % Eosinophils % Basophils % Nucleated RBC % Absolute Neutrophils Absolute Lymphocytes Absolute Monocytes Absolute Eosinophils Absolute Basophils RBC Morphology VBG pH VBG pCO2 VBG pO2 VBG HCO3 VBG Total CO2 VBG O2 Saturation VBG Base Excess VBG Lactate 1.1 Sodium Potassium Chloride Carbon Dioxide Anion Gap BUN Creatinine Est GFR (CKD-EPI 2020) Glucose Calcium Magnesium Total Bilirubin AST ALT Alkaline Phosphatase Troponin I 12 12 Total Protein Albumin Procalcitonin Urine Color Urine Clarity Urine pH Ur Specific [place] Urine Protein Urine Ketones Urine Blood Urine Nitrite Urine Bilirubin Urine Urobilinogen Ur Leukocyte Esterase Urine RBC Urine WBC Ur Epithelial Cells Urine Crystals Urine Bacteria Urine Casts Urine Mucus Ur Culture Indicated? Urine Glucose COVID-19 Source SARS-CoV-2 (PCR) Influenza Type A (PCR) Influenza Type B (PCR) RSV (PCR) 08/11/24 06:20 WBC 21.59 H RBC 4.17 L Hgb 11.9 L D Hct 36.9 L MCV 89 MCH 28.5 MCHC 32.2 RDW 13.9 Plt Count 144 MPV 10.8 Immature Gran % 0.5 Neutrophils % 95.1 Band Neutrophils % Lymphocytes % 2.7 Monocytes % 1.5 Eosinophils % 0.1 Basophils % 0.1 Nucleated RBC % 0.0 Absolute Neutrophils 20.53 H Absolute Lymphocytes 0.58 L Absolute Monocytes 0.32 Absolute Eosinophils 0.02 Absolute Basophils 0.02 RBC Morphology Normal VBG pH VBG pCO2 VBG pO2 VBG HCO3 VBG Total CO2 VBG O2 Saturation VBG Base Excess VBG Lactate 3.4 H* Sodium 138 Potassium 4.2 Chloride 106 Carbon Dioxide 24.5 Anion Gap 7.5 BUN 16 Creatinine 1.5 H Est GFR (CKD-EPI 2020) 53.30 Glucose 217 H Calcium 7.6 L Magnesium 2.1 Total Bilirubin AST ALT Alkaline Phosphatase Troponin I Total Protein Albumin Procalcitonin Urine Color Urine Clarity Urine pH Ur Specific [place] Urine Protein Urine Ketones Urine Blood Urine Nitrite Urine Bilirubin Urine Urobilinogen Ur Leukocyte Esterase Urine RBC Urine WBC Ur Epithelial Cells Urine Crystals Urine Bacteria Urine Casts Urine Mucus Ur Culture Indicated? Urine Glucose COVID-19 Source SARS-CoV-2 (PCR) Influenza Type A (PCR) Influenza Type B (PCR) RSV (PCR) Time Spent with Patient Time Spent with Patient: 35-49 minutes Time was spent: preparing to see the patient(eg.review tests), ordering medications,tests, procedures, referring, communicating with other health resident caregiver, indepentently interpreting results and care coordination
--- NOTE | 2024-08-11 14:10 | DI.RAD_ITS ---
Exam(s) XR ABDOMEN FLAT PLATE EXAM: XR ABDOMEN FLAT PLATE CLINICAL HISTORY: ileus. TECHNIQUE: 2D digital imaging was performed. COMPARISON: CT CT RENAL COLIC WO from 05/21/2024 FINDINGS: Single AP portable supine view of the abdomen-pelvis The distal tip of the ventriculoperitoneal shunt is in the left iliac fossa There are air-filled and distended bowel loops throughout the abdomen and pelvis. Cannot assess for free air as this is a supine image. There are no upright nor decubitus images. The stomach is also distended. Both small bowel and large bowel loops are distended with air. There does not appear to be obvious rectal fecal impaction. IMPRESSION: Air-filled distended small and large bowel loops without evidence of obvious fecal rectal impaction. This finding is similar to prior studies. Most probably diffuse ileus pattern If clinically indicated follow-up CT scan can be performed DATA REPOSITORY: RADIATION DOSE DELIVERED:
--- NOTE | 2024-08-11 15:10 | DI.VRAD_ITS ---
PROCEDURE INFORMATION: Exam: XR Abdomen Exam date and time: 08/11/2024 2:06 PM Age: 58 years old Clinical indication: Other: Ileus TECHNIQUE: Imaging protocol: Radiologic exam of the abdomen. Views: Frontal supine view of the abdomen. 1 View. COMPARISON: CT RENAL COLIC WO 05/21/2024 12:58 PM FINDINGS: Gastrointestinal tract: There is gaseous distension of small and large bowel. No gross amounts of free air are appreciated. There is a central to right-sided catheter, possible EDI ANALYST shunt tubing. Bones/joints: Unremarkable. IMPRESSION: Significant ileus. Pattern not typical for obstruction. Dictated and Authenticated by: Karena Ornelas MD. Ordering:MARTHA Goddard MD
[2024-08-11] MEDS: Protein Nutritional Supplement 16 GM 1 OUNCE PACKET PO ×2 (15:35→19:46)
[2024-08-11] MEDS: Milk of Magnesia 30 ML CUP PO (22:00)
[2024-08-11] MEDS: Docusate Sodium 100 MG CAP 200 MG PO (22:00)
[2024-08-12] VITALS (7 sets, daily range): BP systolic 122–137; BP diastolic 69–79; PULSE 75–91; RESP 2–20; TEMP 37.1–38; O2SAT 93–95
[2024-08-12] MEDS: PIPERACILLIN/TAZO 3.375 GM in Normal Saline 50 ML IVPB ×4 (00:03→17:34)
[2024-08-12] MEDS: Acetaminophen 325 MG TAB 650 MG PO (04:29)
[2024-08-12] MEDS: Albuterol/Ipratropium 3 ML UPD VIAL UPD ×2 (04:46→18:31)
[2024-08-12] MEDS: DOXYCYCLINE 100 MG in Normal Saline 100 ML IVPB ×2 (05:53→18:17)
[2024-08-12 06:36] LABS: Lactate 1.8 mmol/L (0.6-1.4)
[2024-08-12 06:37] LABS: Abs Immature Grans 0.09 10^3/uL (0.0-0.06); Absolute Basophil Count 0.03 10^3/uL (0.0-0.2); Absolute Lymphocyte Count 0.64 10^3/uL (1.2-3.4); Absolute Monocyte Count 0.71 10^3/uL (0.1-0.8); Absolute Neutrophil Count 12.94 10^3/uL (1.2-6.7); Basophils % 0.2 %; Eosinophils % 0.7 %; HCT 33.5 % (40.0-50.0); HGB 10.8 g/dL (13.5-17.5); Immature Grans % 0.6 %; Lymphocytes % 4.4 %; MCH 28.8 pg (27.0-33.0); MCHC 32.2 % (32.0-36.0); MCV 89 fL (80-95); MPV 10.8 fL (8.0-11.0); Monocytes % 4.9 %; Neutrophils % 89.2 %; Platelet Count 132 10^3/uL (130-400); RBC 3.75 10^6/uL (4.36-5.78); RDW-SD 45.8 fL; WBC 14.51 10^3/uL (4.4-10.8)
[2024-08-12 06:59] LABS: ALT 14 U/L (16-63); AST 14 U/L (15-37); Albumin 2.1 g/dL (3.4-5.0); Alkaline Phosphatase 89 U/L (46-116); Anion Gap 6.7 mmol/L (3-11); BUN 15 mg/dL (7-18); Bilirubin, Total 0.16 mg/dL (0.2-1.0); CO2 25.3 mmol/L (21.0-32.0); CREATININE 1.4 mg/dL (0.70-1.30); Calcium 7.7 mg/dL (8.5-10.1); Chloride 111 mmol/L (98-107); Glucose 130 mg/dL (74-106); Potassium 3.9 mmol/L (3.5-5.1); Sodium 143 mmol/L (136-145); Total Protein 5.2 g/dL (6.4-8.2)
[2024-08-12] MEDS: Enoxaparin 40 MG/0.4 ML SYR SC (09:00)
[2024-08-12] MEDS: Protein Nutritional Supplement 16 GM 1 OUNCE PACKET PO ×2 (09:00→21:29)
[2024-08-12] MEDS: Polyethylene Glycol 3350 17 GM PACKET PO (09:00)
[2024-08-12] MEDS: Loratidine 10 MG TAB PO (09:01)
[2024-08-12] MEDS: Cholecalciferol (Vitamin D3) 1,000 UNIT TAB 1000 UNITS PO (09:01)
[2024-08-12] MEDS: Bisacodyl 10 MG SUPP PR (09:01)
[2024-08-12] MEDS: Sertraline 50 MG TAB PO (09:01)
[2024-08-12] MEDS: Docusate Sodium 100 MG CAP 200 MG PO (09:01)
[2024-08-12] MEDS: Multivitamin TAB 1 TAB PO (09:01)
[2024-08-12] MEDS: Potassium Chloride 10 MEQ TABCR PO ×2 (09:01→21:29)
[2024-08-12] MEDS: Normal Saline 1,000 ML 150 ML IV (09:18)
--- NOTE | 2024-08-12 15:00 | W.PM.PROGNOT ---
Date of Service Date of service: 08/12/24 Time of Service: 15:00 Assessment and Plan Assessment and plan (1) Septic shock: Status: Acute Assessment and plan: -patient met sepsis criteria criteria on admissionwith fever, elevated WBC, low blood pressure in setting of infection. -UTI appears to be the source, also possible aspriation, although he is also at risk for SPOOL CLEANER HAND infection with his shunt. -s/p 2 liters of NS per ED clinician; MAP remained <65mmHg. -His sister/guardian is very clear that she does not want aggressive care including pressors or additional more aggressive diagnostic evaluations including CT C/A/P or LP. -Prolonged discussions had with patients family including his Sister/DPOA: -at this time plan is continue current care with NO FURTHER ESCALATION OF CARE -will continue IV antibiotics until patient can be discharged back to his [facility] with Hospice Services -Hospice consult placed, should be alble to discuss with family tomorrow 08/13/2024 (2) Complicated UTI (urinary tract infection): Status: Acute Assessment and plan: -As above likely source (3) Hypoxic respiratory failure: Status: Acute Assessment and plan: -As above could simply be sepsis related but also has history of aspiration and poor quality XR makes it hard to rule this out. -Doxycycline added to pip/tazo in the ED, will continue this (4) Neurogenic bladder: Status: Acute Assessment and plan: -Chronic. Li changed in the ED per report. -see subjective as well as number #1 (5) Gaseous distention of intestine determined by X-ray: Status: Acute Assessment and plan: -In setting of sepsis we would typically want CT, but declined by guardian. -He is not obstructed clinically, not clearly in pain on exam. -Monitor clinically -abdominal Xray showed ileus, pattern not typical for obstruction (6) Closed nondisplaced bimalleolar fracture of right ankle: Status: Acute Assessment and plan: -This happened over a month ago and cast due for removal. Will ask ortho to come by once is is medically stable. (7) Goals of care, counseling/discussion: Status: Acute Assessment and plan: -as noted above -plan to discharge on Hospice Subjective Subjective Interval history since last seen: Multiple discussions had with patient's family including his sister who is his DPOA (please see plan for further details). 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 Exam Narrative Exam Narrative: Chronically ill-appearing older gentleman laying in bed in no acute distress, nonverbal which is baseline, heart regular rate rhythm, lungs clear to auscultation bilaterally, abdomen soft, nontender, nondistended Objective Last Vital Signs Temp 99.3 F 08/12/24 11:19 Pulse 84 08/12/24 11:19 Resp 18 08/12/24 11:19 BP 122/72 08/12/24 11:19 Pulse Ox 93 08/12/24 11:19 Laboratory Results - last 24 hr 08/12/24 06:28 WBC 14.51 H RBC 3.75 L Hgb 10.8 L Hct 33.5 L MCV 89 MCH 28.8 MCHC 32.2 RDW 14.0 Plt Count 132 MPV 10.8 Immature Gran % 0.6 Neutrophils % 89.2 Lymphocytes % 4.4 Monocytes % 4.9 Eosinophils % 0.7 Basophils % 0.2 Nucleated RBC % 0.0 Absolute Neutrophils 12.94 H Absolute Lymphocytes 0.64 L Absolute Monocytes 0.71 Absolute Eosinophils 0.10 Absolute Basophils 0.03 VBG Lactate 1.8 H Sodium 143 Potassium 3.9 Chloride 111 H Carbon Dioxide 25.3 Anion Gap 6.7 BUN 15 Creatinine 1.4 H Est GFR (CKD-EPI 2020) 57.90 Glucose 130 H Calcium 7.7 L Total Bilirubin 0.16 L AST 14 L ALT 14 L Alkaline Phosphatase 89 Total Protein 5.2 L Albumin 2.1 L Time Spent with Patient Time Spent with Patient: >50 minutes Time was spent: preparing to see the patient(eg.review tests), obtaining and/or reviewing separately otained hiistory, ordering medications,tests, procedures, referring, communicating with other health neonatal intensive care nurse, indepentently interpreting results, counseling the patient and care coordination
[2024-08-12] MEDS: Normal Saline Flush 10 ML SYR IVP ×2 (17:35→21:29)
[2024-08-12] MEDS: Milk of Magnesia 30 ML CUP PO (21:29)
[2024-08-13] MEDS: PIPERACILLIN/TAZO 3.375 GM in Normal Saline 50 ML IVPB ×2 (00:52→06:15)
[2024-08-13] MEDS: DOXYCYCLINE 100 MG in Normal Saline 100 ML IVPB (06:47)
[2024-08-13 07:41] VITALS: BP 140/105; PULSE 73; RESP 20; TEMP 37.2; O2SAT 96
[2024-08-13] MEDS: Docusate Sodium 100 MG CAP 200 MG PO (07:48)
[2024-08-13] MEDS: Multivitamin TAB 1 TAB PO (07:48)
[2024-08-13] MEDS: Potassium Chloride 10 MEQ TABCR PO ×2 (07:48→20:17)
[2024-08-13] MEDS: Polyethylene Glycol 3350 17 GM PACKET PO (07:48)
[2024-08-13] MEDS: Protein Nutritional Supplement 16 GM 1 OUNCE PACKET PO ×3 (07:48→20:17)
[2024-08-13] MEDS: Bisacodyl 10 MG SUPP PR (07:48)
[2024-08-13] MEDS: Sertraline 50 MG TAB PO (07:48)
[2024-08-13] MEDS: Cholecalciferol (Vitamin D3) 1,000 UNIT TAB 1000 UNITS PO (07:48)
[2024-08-13] MEDS: Loratidine 10 MG TAB PO (07:48)
[2024-08-13 07:53] VITALS: BP 154/96
[2024-08-13 08:39] VITALS: PULSE 77; RESP 18; RESP 9; O2SAT 95
[2024-08-13] MEDS: Albuterol/Ipratropium 3 ML UPD VIAL UPD (08:39)
[2024-08-13 08:48] VITALS: PULSE 79
--- NOTE | 2024-08-13 09:24 | CMPROGNOTE_ITS ---
Date of service: 08/13/24 Time of Service: 09:24 Care Management Progress Note Progress Note Text Progress Note Text: Hollis was lying in bed when CM met with him. Hollis is non-verbal so CM was unable to have a conversation. Hollis's Dad was visiting and CM did talk with him. This afternoon a hospice consult took place. Present were Hollis's sister (DPGEOFFREY) Tarah, REGINO Fernandez and Hospice Nurse Patricia. Hollis has been failing at home, particularly since he broke his ankle, and the family has decided to transition Hollis to comfort care. Since Hollis already has 24/7 caregivers, he should be able to be discharged soon. He will be admitted to hospice the day after he discharges home. Discharge Potential Discharge Needs: PCP F/U Appt and Other (hospice) Anticipated Barriers to Discharge: None Identified Patient/Family Education Needs: Review discharge instructions, discuss Ask Me Three Transportation: Private vehicle Plan: Anticipate Hollis will return home with a resumption of his caregiver support and will be admitted to hospice the next day. He will transport via EMS, mess cook rdinated by REGINO. He will follow up with his PCP and hospice care team. CM will continue to follow. Social Determinants of Health Screening Social Determinants of Health last assessed: 08/13/24 Will the Patient Participate in the Screening?: Yes Do you worry about having a steady place to live?: no Problems where you live: no known problems In the past 12 months, have you had to go without electric, gas, oil or water in your home?: no Have you or anyone in your house had to go without enough food to eat?: no Has lack of transportation kept you from medical appointments or from doing things needed for daily living?: no Has anyone in your life made you feel unsafe or unsupported?: no How hard is it for you to pay for the very basics like food, housing, medical care, and heating? Would you say it is:: Not hard at all Do you want help finding or keeping work or a job?: I do not need or want help If for any reason you need help with day-to-day activities such as bathing, preparing meals, shopping, managing finances, etc., do you get the help you need?: I get all the help I need How often do you feel lonely or isolated from those around you?: Never Do you speak a language other than Sinhala at home?: No Does the patient want assistance with any of the above?: No Social Determinants of Health Comments(SDOH Details): Answers gather from patient's caretakers; patient is non-verbal.
[2024-08-13] MEDS: Enoxaparin 40 MG/0.4 ML SYR SC (10:26)
[2024-08-13 17:05] VITALS: BP 132/75; PULSE 64; RESP 20; TEMP 36.9; O2SAT 95
--- NOTE | 2024-08-13 17:16 | PGE_ITS ---
Date of Service Date of service: 08/13/24 Time of Service: 17:18 Assessment and Plan Assessment and plan (1) Septic shock: Status: Acute Assessment and plan: -patient met sepsis criteria criteria on admissionwith fever, elevated WBC, low blood pressure in setting of infection. -UTI appears to be the source, also possible aspriation, although he is also at risk for OPTIMIZATION MANAGER infection with his shunt. -s/p 2 liters of NS per ED clinician; MAP remained <65mmHg. -His sister/guardian is very clear that she does not want aggressive care including pressors or additional more aggressive diagnostic evaluations including CT C/A/P or LP. -Prolonged discussions had with patients family including his Sister/DPOA on 08/12/2023: -at this time plan is continue current care with NO FURTHER ESCALATION OF CARE -will continue IV antibiotics until patient can be discharged back to his [facility] with Hospice Services -Hospice has seen patient and family; should be able to coordinate discharge either 08/14 or 08/15 (2) Complicated UTI (urinary tract infection): Status: Acute Assessment and plan: -As above likely source (3) Hypoxic respiratory failure: Status: Acute Assessment and plan: -As above could simply be sepsis related but also has history of aspiration and poor quality XR makes it hard to rule this out. -Doxycycline added to pip/tazo in the ED, will continue this (4) Neurogenic bladder: Status: Acute Assessment and plan: -Chronic. Li changed in the ED per report. -see subjective as well as number #1 (5) Gaseous distention of intestine determined by X-ray: Status: Acute Assessment and plan: -In setting of sepsis we would typically want CT, but declined by guardian. -He is not obstructed clinically, not clearly in pain on exam. -Monitor clinically -abdominal Xray showed ileus, pattern not typical for obstruction (6) Closed nondisplaced bimalleolar fracture of right ankle: Status: Acute Assessment and plan: -This happened over a month ago and cast due for removal. Will ask ortho to come by once is is medically stable. (7) Goals of care, counseling/discussion: Status: Acute Assessment and plan: -as noted above -plan to discharge on Hospice Subjective Subjective Interval history since last seen: Patient appears to be comfortable. Family's on discussion with hospice, likely discharge either tomorrow 08/14/2024 and the day after 08/15/2024 once appropriate equipment has been delivered. Exam Narrative Exam Narrative: Chronically ill-appearing older gentleman laying in bed in no acute distress, nonverbal which is baseline, heart regular rate rhythm, lungs clear to auscultation bilaterally, abdomen soft, nontender, nondistended Objective Last Vital Signs Temp 98.4 F 08/13/24 17:05 Pulse 64 08/13/24 17:05 Resp 20 08/13/24 17:05 BP 132/75 08/13/24 17:05 Pulse Ox 95 08/13/24 17:05 Time Spent with Patient Time Spent with Patient: >50 minutes Time was spent: preparing to see the patient(eg.review tests), obtaining and/or reviewing separately otained hiistory, ordering medications,tests, procedures, referring, communicating with other health respiratory care technician, indepentently interpreting results, counseling the patient and care coordination
[2024-08-13 20:12] VITALS: BP 150/80; PULSE 68; RESP 20; TEMP 36.8; O2SAT 95
[2024-08-14 02:35] VITALS: BP 143/85; PULSE 82; RESP 18; TEMP 36.8; O2SAT 95
[2024-08-14 07:31] VITALS: BP 153/85; PULSE 62; RESP 20; TEMP 36.1; O2SAT 92
[2024-08-14] MEDS: Potassium Chloride 10 MEQ TABCR PO ×2 (07:43→19:45)
[2024-08-14] MEDS: Cholecalciferol (Vitamin D3) 1,000 UNIT TAB 1000 UNITS PO (07:43)
[2024-08-14] MEDS: Polyethylene Glycol 3350 17 GM PACKET PO (07:43)
[2024-08-14] MEDS: Docusate Sodium 100 MG CAP 200 MG PO (07:43)
[2024-08-14] MEDS: Protein Nutritional Supplement 16 GM 1 OUNCE PACKET PO ×3 (07:43→19:45)
[2024-08-14] MEDS: Sertraline 50 MG TAB PO (07:44)
[2024-08-14] MEDS: Loratidine 10 MG TAB PO (07:44)
[2024-08-14] MEDS: Multivitamin TAB 1 TAB PO (07:44)
[2024-08-14] MEDS: levoFLOXacin 500 MG, levoFLOXacin 250 MG 750 MG PO (07:44)
[2024-08-14] MEDS: Bisacodyl 10 MG SUPP PR (07:44)
--- NOTE | 2024-08-14 08:53 | CMPROGNOTE_ITS ---
Date of service: 08/14/24 Time of Service: 08:53 Care Management Progress Note Progress Note Text Progress Note Text: Hollis was lying in bed when CM met with him. He is non-verbal so did not respond to CM when informed he would be going home tomorrow. His Dad was with him and CM discussed his pending discharge. Hollis Rascon's sister/DPOA was contacted and the discharge is tentatively scheduled for 11:30-12 tomorrow. CM will arrange for EMS transportation. CM also contacted the marketing and development coordinator, Patricia Flores, to inform her of the plan to enable Hollis to be admitted to hospice on . Discharge Potential Discharge Needs: PCP F/U Appt Anticipated Barriers to Discharge: None Identified Patient/Family Education Needs: Review discharge instructions, discuss Ask Me Three Transportation: EMS Plan: Anticipate Hollis will return home with a resumption of his caregiver support and will be admitted to hospice the next day. He will transport via EMS, coordinated by CM. He will follow up with his PCP and hospice care team. CM will continue to follow. Social Determinants of Health Screening Social Determinants of Health last assessed: 08/14/24 Will the Patient Participate in the Screening?: Yes Do you worry about having a steady place to live?: no Problems where you live: no known problems In the past 12 months, have you had to go without electric, gas, oil or water in your home?: no Have you or anyone in your house had to go without enough food to eat?: no Has lack of transportation kept you from medical appointments or from doing things needed for daily living?: no Has anyone in your life made you feel unsafe or unsupported?: no How hard is it for you to pay for the very basics like food, housing, medical care, and heating? Would you say it is:: Not hard at all Do you want help finding or keeping work or a job?: I do not need or want help If for any reason you need help with day-to-day activities such as bathing, preparing meals, shopping, managing finances, etc., do you get the help you need?: I get all the help I need How often do you feel lonely or isolated from those around you?: Never Do you speak a language other than [place]ib[place] at home?: No Does the patient want assistance with any of the above?: No Social Determinants of Health Comments(SDOH Details): Answers gather from patient's caretakers; patient is non-verbal.
[2024-08-14] MEDS: Enoxaparin 40 MG/0.4 ML SYR SC (10:11)
[2024-08-14 11:21] VITALS: BP 129/75; PULSE 71; RESP 20; TEMP 36.3; O2SAT 98
[2024-08-14 15:36] VITALS: BP 130/70; PULSE 68; RESP 18; TEMP 36.8; O2SAT 97
--- NOTE | 2024-08-14 15:42 | W.PM.PROGNOT ---
Date of Service Date of service: 08/14/24 Time of Service: 15:42 Assessment and Plan Assessment and plan (1) Septic shock: Status: Acute Assessment and plan: -patient met sepsis criteria criteria on admissionwith fever, elevated WBC, low blood pressure in setting of infection. -UTI appears to be the source, also possible aspriation, although he is also at risk for CINDER PITMAN infection with his shunt. -s/p 2 liters of NS per ED clinician; MAP remained <65mmHg. -His sister/guardian is very clear that she does not want aggressive care including pressors or additional more aggressive diagnostic evaluations including CT C/A/P or LP. -Prolonged discussions had with patients family including his Sister/DPOA on 08/12/2023: -at this time plan is continue current care with NO FURTHER ESCALATION OF CARE -will continue IV antibiotics until patient can be discharged back to his [facility] with [facility] Services -Hospice has seen patient and family; should be able to coordinate discharge likely 08/15 (2) Complicated UTI (urinary tract infection): Status: Acute Assessment and plan: -As above likely source (3) Hypoxic respiratory failure: Status: Acute Assessment and plan: -As above could simply be sepsis related but also has history of aspiration and poor quality XR makes it hard to rule this out. -Doxycycline added to pip/tazo in the ED, will continue this (4) Neurogenic bladder: Status: Acute Assessment and plan: -Chronic. Li changed in the ED per report. -see subjective as well as number #1 (5) Gaseous distention of intestine determined by X-ray: Status: Acute Assessment and plan: -In setting of sepsis we would typically want CT, but declined by guardian. -He is not obstructed clinically, not clearly in pain on exam. -Monitor clinically -abdominal Xray showed ileus, pattern not typical for obstruction (6) Closed nondisplaced bimalleolar fracture of right ankle: Status: Acute Assessment and plan: -This happened over a month ago and cast due for removal. Will ask ortho to come by once is is medically stable. (7) Goals of care, counseling/discussion: Status: Acute Assessment and plan: -as noted above -plan to discharge on Hospice Subjective Subjective Interval history since last seen: Patient appears to be comfortable. Family's on discussion with hospice, likely discharge likey tomorrow 08/15/2024. Exam Narrative Exam Narrative: Chronically ill-appearing older gentleman laying in bed in no acute distress, nonverbal which is baseline, heart regular rate rhythm, lungs clear to auscultation bilaterally, abdomen soft, nontender, nondistended Objective Last Vital Signs Temp 98.2 F 08/14/24 15:36 Pulse 68 08/14/24 15:36 Resp 18 08/14/24 15:36 BP 130/70 08/14/24 15:36 Pulse Ox 97 08/14/24 15:36 Time Spent with Patient Time Spent with Patient: >50 minutes Time was spent: preparing to see the patient(eg.review tests), obtaining and/or reviewing separately otained hiistory, ordering medications,tests, procedures, referring, communicating with other health healthcare sales representative, indepentently interpreting results, counseling the patient and care coordination
[2024-08-14 19:36] VITALS: BP 143/71; PULSE 72; RESP 18; TEMP 36.7; O2SAT 94
[2024-08-15 08:09] VITALS: BP 129/65; PULSE 67; RESP 18; TEMP 37; O2SAT 97
--- NOTE | 2024-08-15 08:56 | W.PM.DS.N ---
Date of service: 08/15/24 Time of Service: 08:57 DS: Diagnosis Discharge Diagnosis (1) Septic shock: Status: Acute (2) Complicated UTI (urinary tract infection): Status: Acute (3) Hypoxic respiratory failure: Status: Acute (4) Neurogenic bladder: Status: Acute (5) Gaseous distention of intestine determined by X-ray: Status: Acute (6) Closed nondisplaced bimalleolar fracture of right ankle: Status: Acute (7) Goals of care, counseling/discussion: Status: Acute Discharge Plan Disposition Patient Disposition: Group Home Facility(SNF) Condition: Good Discharge Details Reason For Visit: severe sepsis, UTI Admit Date/Time: 08/10/24 20:22 Admit Provider: Kishor Trujillo Attending Provider: Kishor Trujillo Primary Care Provider: Freida Starks Hospital Course Hospital Course: Patient initially presented with signs and symptoms that were consistent with septic shock secondary to UTI. During hospitalization patient's family and DPOA requested the patient be a DNR and no escalation of care which is the reason patient was not treated with IV pressors, and did not have additional imaging studies during hospitalization. However, with IV antibiotics that were administered patient did have improvement. However, ultimately the decision was made for patient to transition to hospice care upon discharge. Home Meds and New Rx's Prescriptions: New levofloxacin 750 mg Tablet 750 mg PO QAM Qty: 7 0RF Continued loratadine 10 mg tablet 10 mg PO DAILY clotrimazole 1 % cream 1 applic topical TID PRN PRN (Reason: rash) Qty: 60 0RF potassium citrate 10 mEq (1,080 mg) tablet extended release 10 meq PO BID Qty: 180 3RF ketoconazole 2 % cream 1 applic topical DAILY Qty: 120 6RF Rx Instructions: Apply to toenails once daily polyethylene glycol 3350 [GlycoLax] 527 GM powder 17 g PO DAILY morphine concentrate 100 mg/5 mL (20 mg/mL) solution See Rx Instructions PO Q1H MDD 500 mg PRN (Reason: pain) Qty: 30 0RF Rx Instructions: 0.25-1.0 ml orally every 1 hour PRN; HOSPICE lorazepam 1 mg tablet 1 mg PO Q4H PRN (Reason: anxiety, dyspnea, nausea) Qty: 7 2RF Rx Instructions: hospice sertraline 50 mg tablet 50 mg PO DAILY Patient Comments: TAKE ONE TABLET BY MOUTH EVERY DAY bisacodyl [Dulcolax (bisacodyl)] 10 mg Suppository 10 mg [place] DAILY lorazepam 1 mg Tablet 1 mg PO TID PRN Discharge Instructions Activity:: Activity as Tolerated Equipment/Supplies:: No Equipment Needed Diet:: As Tolerated Discharge Orders Discharge Orders: Discharge Order (Routine); Ordered 08/15/24 Ordered By: Karan Adams DS: Summary Time Spent with Patient providing and/or coordinating discharge services: Greater than 30 minutes Status at Discharge Functional status at discharge: bed bound Overall status at discharge: patient is back to baseline Mental Status: mental status grossly normal Speech and Movement: speech and movement normal Mood: congruent mood Affect: normal affect Quality:SDOH Health Related Social Needs: Health related social needs details Has two private caregivers with him Exam Narrative Exam Narrative: Chronically ill-appearing older gentleman laying in bed in no acute distress, nonverbal which is baseline, heart regular rate rhythm, lungs clear to auscultation bilaterally, abdomen soft, nontender, nondistended Psych Mental Status: mental status grossly normal Speech and Movement: speech and movement normal Mood: congruent mood Affect: normal affect DS: Data Vitals/I&O Vitals and I&O: Vital Signs Temperature 98.6 F 08/15/24 08:09 Temperature Source Tympanic 08/15/24 08:09 Pulse 67 08/15/24 08:09 Pulse 81 08/11/24 18:00 Respiratory Rate 18 08/15/24 08:09 Respiratory Effort Normal 08/10/24 22:35 Respiratory Depth Normal 08/10/24 22:35 Respiratory Pattern Normal 08/10/24 22:35 Blood Pressure 129/65 08/15/24 08:09 Blood Pressure Mean 83 08/11/24 17:00 Blood Pressure Position Supine 08/10/24 17:36 Pulse Oximetry 97 08/15/24 08:09 Oxygen Delivery Method Room Air 08/15/24 08:09 Oxygen Flow Rate 0 08/15/24 08:09 Comment RN notified on vitals 08/14/24 07:31 Intake & Output 08/14/24 08/15/24 08/15/24 17:59 05:59 17:59 Intake Total 240 / 240 Output Total 3600 / 3600 1750 / 5350 550 / 550 Balance -3360 / -3360 -1750 / -5110 -550 / -550 Intake: Oral 240 / 240 Output: Urine 3600 / 3600 1750 / 5350 550 / 550 Other: Urine Color Yellow Pale Pale Yellow Yellow Urine Appearance Clear Clear Stool Size Large Smear Stool Characteristics Soft Soft Data Completed and Pending Labs on day of discharge: Preliminary micro results at discharge 08/10/24 16:48 Blood Culture - Preliminary Blood Pseudomonas aeruginosa PFSH All Active Problems (Updated 08/10/24 @ 23:29 by Kishor Trujillo) Gaseous distention of intestine determined by X-ray (Acute) Hypoxic respiratory failure (Acute) Goals of care, counseling/discussion (Acute) Septic shock (Acute) Closed nondisplaced bimalleolar fracture of right ankle (Acute) Closed pilon fracture of right tibia (Acute) Edema (Acute) Atherosclerosis of artery of both lower extremities (Acute) Onychogryphosis (Acute) Nail dystrophy (Acute) Onychomycosis (Acute) Neurogenic bladder (Acute) Sepsis (Acute) Complicated UTI (urinary tract infection) (Acute) Community acquired pneumonia (Acute) DVT prophylaxis (Acute) Urinary catheter insertion/adjustment/removal (Acute) Diarrhea (Acute) Neurogenic bladder (Acute) Discharge planning issues (Acute) Bacteremia (Acute) Medical History (Updated 08/10/24 @ 23:29 by Kishor Trujillo) 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) Acute UTI Urethral stricture Wheelchair dependent 2 assist Developmental non-verbal disorder Urinary retention Meningioma Neurofibromatosis 2 Surgical History S/P craniotomy S/P MARGARINE MAKER shunt Social History (Updated 08/10/24 @ 23:27 by Kishor Trujillo) Smoking/Tobacco Use Status: Never Smoking risk assessment performed?: Yes Alcohol Intake: never Drug use: Never Substance use type: does not use Caregiver/Support person: Yes (parents are primary caretakers) Household members: family Housing: house Do you feel safe at home: Yes Do you feel safe in your relationship?: Yes Additional Social history: sister Tarah is guardian. He lives with Lana and her (in home care) and has other aids to help Time Spent with Patient Time Spent with Patient: <45 minutes Time was spent: preparing to see the patient(eg.review tests), obtaining and/or reviewing separately [facility] hi[facility], ordering medications,tests, procedures, referring, communicating with other health healthcare corporate account director, indepentently interpreting results, counseling the patient and care coordination
[2024-08-15] MEDS: Loratidine 10 MG TAB PO (09:40)
[2024-08-15] MEDS: Sertraline 50 MG TAB PO (09:40)
[2024-08-15] MEDS: Potassium Chloride 10 MEQ TABCR PO (09:41)
[2024-08-15] MEDS: levoFLOXacin 500 MG, levoFLOXacin 250 MG 750 MG PO (09:41)
[2024-08-15] MEDS: Protein Nutritional Supplement 16 GM 1 OUNCE PACKET PO (09:42)
[2024-08-15] MEDS: Cholecalciferol (Vitamin D3) 1,000 UNIT TAB 1000 UNITS PO (09:42)
[2024-08-15] MEDS: Multivitamin TAB 1 TAB PO (09:42)
[2024-08-15] MEDS: Ketoconazole 2% CREAM 15 GM TUBE TP (09:42)
[2024-08-15] MEDS: Normal Saline Flush 10 ML SYR IVP (09:43)
[2024-08-15] MEDS: Enoxaparin 40 MG/0.4 ML SYR SC (09:44)
--- NOTE | 2024-08-15 15:27 | CMDISCH_ITS ---
Date of service: 08/15/24 Time of Service: 15:27 LACE Index Scoring Tool Questions: Length of Stay (in days): 4 - 6 Was the patient admitted via the E.D.?: Yes E.D. Visits: 4 Answers: Total Score: 11 Risk of Readmission: High Risk Care Management Discharge Plan Reason for Hospitalization: septic shock Discharge Plan: Hollis will be discharged back to his caregiver's home with a resumption of services. He will follow up with his PCP and plan of care and transport via EMS coordinated by CM. Hollis was supposed to be admitted to hospice tomorrow however there are some issues with the paperwork for guardianship and his code status that may need to be clarified first. Patient/Family Education Needs: Review of discharge instructions, limitations, follow up plan and discuss Ask Me Three SDOH Health Related Social Needs: Health related social needs abdulaziz Has two private ca regivers with him
== END 2024-08-15 11:42 | disposition home or self-care (01) | DRG 871 ==
LOC: ER 21:24 → ICU 22:28 → MS 08-11 17:59
PROVIDERS: Hospitalist; Admitting Provider Family Medicine; Emergency Provider Physician Assistant; PCP Family Medicine; Visit Provider Family Medicine
DX: A41.9 Sepsis, unspecified organism (principal); J96.01 Acute respiratory failure with hypoxia; R65.21 Severe sepsis with septic shock; N39.0 Urinary tract infection, site not specified; R47.01 Aphasia; N31.9 Neuromuscular dysfunction of bladder, unspecified; K63.89 Other specified diseases of intestine; S82.844D Nondisplaced bimalleolar fracture of right lower leg, subsequent encounter for closed fracture with routine healing; R14.0 Abdominal distension (gaseous); Z98.2 Presence of cerebrospinal fluid drainage device; F78.A9 Other genetic related intellectual disability; Q85.02 Neurofibromatosis, type 2; I70.203 Unspecified atherosclerosis of native arteries of extremities, bilateral legs; Z99.3 Dependence on wheelchair; Q85.03 Schwannomatosis; T17.908A Unspecified foreign body in respiratory tract, part unspecified causing other injury, initial encounter; W44.9XXA Unspecified foreign body entering into or through a natural orifice, initial encounter; Z66 Do not resuscitate
CPT/HCPCS: 00123; 36415; 80048; 80053; 82805; 84145; 87040; 87077; 87637; 93005; 96361; 96365; 96366; 96367; 96368; 96375; 99291; J1650; 71045; 74018; 81003; 81015; 83605; 83735; 84484; 85025; 87086; 87186; 93010; 94640; 94760; 99223; 99233; 99239; J0131; J0696; J0780; J2543; J2919; J3475; J3490; J7620

== ENCOUNTER 2024-08-28 18:06 | Outpatient (REF) | payer MEDICARE, SELFPAY ==
[2024-08-28 13:57] LABS: Bilirubin Negative (Negative); Blood Negative (Negative); Clarity Clear (Clear); Glucose Negative (Negative); Ketones Negative (Negative); Leukocyte Esterase Negative (Negative); Nitrite Negative (Negative); Urobilinogen 0.2 mg/dL (Up to 0.2)
== END 2024-08-28 18:07 | disposition home or self-care (01) ==
LOC: LBN 18:06
PROVIDERS: PCP Family Medicine; Visit Provider Nurse Practitioner
DX: N39.0 Urinary tract infection, site not specified (principal); R82.89 Other abnormal findings on cytological and histological examination of urine
CPT/HCPCS: 81003

== ENCOUNTER 2024-09-14 19:22 | Outpatient (REF) | payer MEDICARE, SELFPAY ==
[2024-09-14 13:08] LABS: Bilirubin Negative (Negative); Blood Trace-lysed (Negative); Clarity Clear (Clear); Glucose Negative (Negative); Ketones Negative (Negative); Leukocyte Esterase Trace (Negative); Nitrite Negative (Negative); Specific Gravity 1.015 (1.005-1.025); Urobilinogen 0.2 mg/dL (Up to 0.2)
[2024-09-14 13:19] LABS: Bacteria Rare HPF (Negative); C & S Indicated? Yes; Casts Negative LPF (Negative); Crystals Negative HPF (Negative); Epithelial Cells Rare HPF (Negative); Mucus Negative (Negative); Other Cells Negative (Negative); RBC 0-2 HPF (0-2)
--- OUTSIDE RECORDS SUMMARY | 2024-09-14 19:24 | XMS_ITS | Data Portability ---
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 [email or web address] Not available 08/02/2023 16:59:52 11/07/2023 11/07/2023 The total time devoted to today's encounter, including both the rkrc-kb-kfdu time with the patient and/or family/caregiv er and dac-ygos-ar-fa ce time I personally spent is 70 [...] Last Modified Time Details Appointments Home Visit 2024 10:20A M Feliberto Starks Not available Not available Not available Lab None recorded. Referral podiatris t referral 2023 024 [facility], [address] , [place], [address], 02/22/2024 15:54:10 Procedures None recorded. Surgeries None recorded. Imaging None recorded. Medication Orders clotrimaz ole 1 % topical cream 2023 024 [facility], [address] [place], [address], 11/07/2023 17:49:02 clindamyc in phosphate 1 % topical solution 2023 024 [facility], [address] [place] [address], [address], 11/07/2023 17:52:12 sertralin e 25 mg tablet 2023 024 [facility], [address] [place], [address], 02/03/2024 15:26:38 azithromy phyllis 250 mg tablet 2023 024 [facility], [address] [place], [address], 04/25/2024 20:19:12 sertralin e 50 mg tablet 2023 024 [facility], [address] [place], [address], 02/03/2024 15:26:57 Patient TargetsNo targets recorded. Patient InstructionsNo instructions recorded. 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 Referral for Hype rtrophy of nail Referring Physician: Feliberto Starks, Family Medicine, Encounter Date: 11/07/2023 Results Created Date Observation Date Name Description Value Unit Range Abnormal Flag Note LastModifiedBy Organization Detail LastModifiedTime 07/14/20 23 07/14/2023 URINA LYSIS color Yellow yellow Not Available Sundar gore [address] [place], [address] 07/14/2023 21:44:47 07/14/20 23 07/14/2023 URINA LYSIS clarity Cloudy clear Not Available Sundar gore [address] [place], [address] 07/14/2023 21:44:47 07/14/20 23 07/14/2023 URINA LYSIS specific gravity 1.020 1.005- 1.025 normal Not Available [address] [place], [address] 07/14/2023 21:44:47 07/14/20 23 07/14/2023 URINA LYSIS pH 7.0 5-8 normal Not Available Sundar gore [address] [place], [address] 07/14/2023 21:44:47 07/14/20 23 07/14/2023 URINA LYSIS leukocyte esterase Large negati ve abnormal Not Available [address] [place], [address] 07/14/2023 21:44:47 07/14/20 23 07/14/2023 URINA LYSIS nitrite Negati ve negati ve Not Available [address] [place], [address] 07/14/2023 21:44:47 07/14/20 23 07/14/2023 URINA LYSIS protein 100 mg/dL negati ve abnormal Not Available [address] [place], [address] 07/14/2023 21:44:47 07/14/20 23 07/14/2023 URINA LYSIS glucose Negati ve mg/dL negati ve Not Available [address] [place], [address] 07/14/2023 21:44:47 07/14/20 23 07/14/2023 URINA LYSIS ketones Negati ve mg/dL negati ve Not Available [address] [place], [address] 07/14/2023 21:44:47 07/14/20 23 07/14/2023 URINA LYSIS urobilinogen 0.2 mg/dL up to 0.2 Not Available [address] [place], [address] 07/14/2023 21:44:47 07/14/20 23 07/14/2023 URINA LYSIS bilirubin Negati ve negati ve Not Available [address] [place], [address] 07/14/2023 21:44:47 07/14/20 23 07/14/2023 URINA LYSIS blood Large negati ve abnormal Not Available [address] [place], [address] 07/14/2023 21:44:47 07/14/20 23 07/14/2023 URINA LYSIS color Yellow yellow Not Available Sundar gore [address] [place], [address] 07/14/2023 21:51:48 07/14/2007/14/2023 URINA LYSIS clarity Cloudy clear Not Available Sundar gore [address] [place], [address] 07/14/2023 21:51:48 07/14/2007/14/2023 URINA LYSIS specific gravity 1.020 1.005- 1.025 normal Not Available [address] [place], [address] 07/14/2023 21:51:48 07/14/2007/14/2023 URINA LYSIS pH 7.0 5-8 normal Not Available Sundar gore [address] [place], [address] 07/14/2023 21:51:48 07/14/20 23 07/14/2023 URINA LYSIS leukocyte esterase Large negati ve abnormal Not Available [address] [place], [address] 07/14/2023 21:51:48 07/14/2007/14/2023 URINA LYSIS nitrite Negati ve negati ve Not Available [address] [place], [address] 07/14/2023 21:51:48 07/14/20 23 07/14/2023 URINA LYSIS protein 100 mg/dL negati ve abnormal Not Available [address] [place], [address] 07/14/2023 21:51:48 07/14/20 23 07/14/2023 URINA LYSIS glucose Negati ve mg/dL negati ve Not Available [address] [place], [address] 07/14/2023 21:51:48 07/14/20 23 07/14/2023 URINA LYSIS ketones Negati ve mg/dL negati ve Not Available [address] [place], [address] 07/14/2023 21:51:48 07/14/20 23 07/14/2023 URINA LYSIS urobilinogen 0.2 mg/dL up to 0.2 Not Available [address] [place], [address] 07/14/2023 21:51:48 07/14/20 23 07/14/2023 URINA LYSIS bilirubin Negati ve negati ve Not Available [address] [place], [address] 07/14/2023 21:51:48 07/14/20 23 07/14/2023 URINA LYSIS blood Large negati ve abnormal Not Available [address] [place], [address] 07/14/2023 21:51:48 07/14/20 23 07/14/2023 MICRO SCOPI C FINDI NGS WBC >50 hpf 0-5 abnormal Not Available [address] [place], [address] 07/14/2023 21:51:48 07/14/20 23 07/14/2023 MICRO SCOPI C FINDI NGS RBC >50 hpf 0-2 abnormal Not Available [address] [place], [address] 07/14/2023 21:51:48 07/14/20 23 07/14/2023 MICRO SCOPI C FINDI NGS epithelial cells Few hpf negati ve Not Available [address] [place], [address] 07/14/2023 21:51:48 07/14/20 23 07/14/2023 MICRO SCOPI C FINDI NGS bacteria Few hpf negati ve Not Available [address] [place], [address] 07/14/2023 21:51:48 07/14/20 23 07/14/2023 MICRO SCOPI C FINDI NGS crystals Negati ve hpf negati ve Not Available [address] [place], [address] 07/14/2023 21:51:48 07/14/20 23 07/14/2023 MICRO SCOPI C FINDI NGS mucus Heavy negati ve Not Available [address] [place], [address] 07/14/2023 21:51:48 07/14/20 23 07/14/2023 MICRO SCOPI C FINDI NGS casts Negati ve lpf negati ve Not Available [address] [place], [address] 07/14/2023 21:51:48 07/14/20 23 07/14/2023 MICRO SCOPI C FINDI NGS C S indicated? Yes Not Available [address] [place], [address] 07/14/2023 21:51:48 07/14/20 23 07/14/2023 COMPL ETE BLOOD COUNT W/DIF F WBC 16.53 10_3/ uL 4.4-10 .8 high Not Available [address] [place], [address] 07/14/2023 22:41:52 07/14/20 23 07/14/2023 COMPL ETE BLOOD COUNT W/DIF F RBC 5.49 10_6/ uL 4.36-5 .78 normal Not Available [address] [place], [address] 07/14/2023 22:41:52 07/14/20 23 07/14/2023 COMPL ETE BLOOD COUNT W/DIF F HGB 15.0 g/dL 13.5-1 7.5 normal Not Available [address] [place], [address] 07/14/2023 22:41:52 07/14/20 23 07/14/2023 COMPL ETE BLOOD COUNT W/DIF F HCT 46.1 % 40.0-5 0.0 normal Not Available [address] [place], [address] 07/14/2023 22:41:52 07/14/20 23 07/14/2023 COMPL ETE BLOOD COUNT W/DIF F MCV 84 fL 80-95 normal Not Available Sundar [address] [place], [address] 07/14/2023 22:41:52 07/14/20 23 07/14/2023 COMPL ETE BLOOD COUNT W/DIF F MCH 27.3 pg 27.0-3 3.0 normal Not Available [address] [place], [address] 07/14/2023 22:41:52 07/14/20 23 07/14/2023 COMPL ETE BLOOD COUNT W/DIF F MCHC 32.5 % 32.0-3 6.0 normal Not Available [address] [place], [address] 07/14/2023 22:41:52 07/14/20 23 07/14/2023 COMPL ETE BLOOD COUNT W/DIF F RDW 13.0 % 11.8-1 4.1 normal Not Available [address] [place], [address] 07/14/2023 22:41:52 07/14/20 23 07/14/2023 COMPL ETE BLOOD COUNT W/DIF F platelet count 217 10_3/ uL 130-40 0 normal Not Available [address] [place], [address] 07/14/2023 22:41:52 07/14/20 23 07/14/2023 COMPL ETE BLOOD COUNT W/DIF F MPV 10.5 fL 8.0-11 .0 normal Not Available [address] [place], [address] 07/14/2023 22:41:52 07/14/20 23 07/14/2023 COMPL ETE BLOOD COUNT W/DIF F neutrophils % 89.4 Not Available Francesca howard [address] [place], [address] 07/14/2023 22:41:52 07/14/20 23 07/14/2023 COMPL ETE BLOOD COUNT W/DIF F lymphocytes % 4.7 Not Available [address] [place], [address] 07/14/2023 22:41:52 07/14/20 23 07/14/2023 COMPL ETE BLOOD COUNT W/DIF F monocytes % 4.8 Not Available [address] [facility] [place], [address] 07/14/2023 22:41:52 07/14/20 23 07/14/2023 COMPL ETE BLOOD COUNT W/DIF F eosinophils % 0.2 Not Available [address] [place], [address] 07/14/2023 22:41:52 07/14/20 23 07/14/2023 COMPL ETE BLOOD COUNT W/DIF F basophils % 0.4 Not Available [address] [facility] [place], [address] 07/14/2023 22:41:52 07/14/20 23 07/14/2023 COMPL ETE BLOOD COUNT W/DIF F immature grans % 0.5 Not Available [address] [place], [address] 07/14/2023 22:41:52 07/14/20 23 07/14/2023 COMPL ETE BLOOD COUNT W/DIF F nucleated RBC 0.0 % 0.0-0. 3 normal Not Available [address] [facility] [place], [address] 07/14/2023 22:41:52 07/14/20 23 07/14/2023 COMPL ETE BLOOD COUNT W/DIF F absolute neutrophil count 14.78 10_3/ uL 1.2-6. 7 high Not Available [address] [place], [address] 07/14/2023 22:41:52 07/14/20 23 07/14/2023 COMPL ETE BLOOD COUNT W/DIF F absolute lymphocyte count 0.78 10_3/ uL 1.2-3. 4 low Not Available [address] [place], [address] 07/14/2023 22:41:52 07/14/20 23 07/14/2023 COMPL ETE BLOOD COUNT W/DIF F absolute monocyte count 0.79 10_3/ uL 0.1-0. 8 normal Not Available [address] [place], [address] 07/14/2023 22:41:52 07/14/20 23 07/14/2023 COMPL ETE BLOOD COUNT W/DIF F absolute eosinophil count 0.03 10_3/ uL 0.0-0. 7 normal Not Available [address] [place], [address] 07/14/2023 22:41:52 07/14/20 23 07/14/2023 COMPL ETE BLOOD COUNT W/DIF F absolute basophil count 0.07 10_3/ uL 0.0-0. 2 normal Not Available [address] [place], [address] 07/14/2023 22:41:52 07/14/20 23 07/14/2023 BASIC METAB OLIC PANEL calcium 8.9 mg/dL 8.5-10 .1 normal Not Available [address] [place], [address] 07/14/2023 23:01:55 07/14/20 23 07/14/2023 BASIC METAB OLIC PANEL glucose 120 mg/dL 74-106 high Not Available Sundar gore [address] [place], [address] 07/14/2023 23:01:55 07/14/20 23 07/14/2023 BASIC METAB OLIC PANEL BUN 17 mg/dL 7-18 normal Not Available Sundar gore [address] [place], [address] 07/14/2023 23:01:55 07/14/20 23 07/14/2023 BASIC METAB OLIC PANEL creatinine 1.5 mg/dL 0.70-1 .30 high Not Available [address] [place], [address] 07/14/2023 23:01:55 07/14/20 23 07/14/2023 BASIC METAB [...] young er-ag ed adult s. Not Available [address] [place], [address] 07/14/2023 23:01:55 07/14/20 23 07/14/2023 BASIC METAB OLIC PANEL sodium 135 mmol/ L 136-14 5 low Not Available [address] [place], [address] 07/14/2023 23:01:55 07/14/20 23 07/14/2023 BASIC METAB OLIC PANEL potassium 4.2 mmol/ L 3.5-5. 1 normal Not Available [address] [place], [address] 07/14/2023 23:01:55 07/14/20 23 07/14/2023 BASIC METAB OLIC PANEL chloride 100 mmol/ L 98-107 normal Not Available [address] [place], [address] 07/14/2023 23:01:55 07/14/20 23 07/14/2023 BASIC METAB OLIC PANEL CO2 28.6 mmol/ L 21.0-3 2.0 normal Not Available [address] [place], [address] 07/14/2023 23:01:55 07/14/20 23 07/14/2023 BASIC METAB OLIC PANEL anion gap 6.4 mmol/ L 3-11 normal Not Available [address] [place], [address] 07/14/2023 23:01:55 12/02/24 2307/14/2023 LACTA TE lactate 3.7 mmol/ L 0.6-1. 4 panic high Criti kristine value LACTA TE repor leidy to and readb art from JESSY MOSQUEDA RN ED at 2237 07/14 by [email or web address].Etta BRITO Not Available [address] [place], [address] 07/14/2023 23:11:53 07/14/2007/14/2023 PROCA LCITO SAMIR procalcitoni [...] alway s be relat ed to syste neleima bacte rial infec tion and can be [...] se, among other cause s. Not Available [address] [place], [address] 07/14/2023 23:11:54 07/14/20 23 07/15/2023 URINE CULTU RE urine culture Urine Cultu re ACTIO N ID AND SUSCE PTIBI LITY TO FOLLO W APPEA LORRI Gram Negat tami [place] APPEA LORRI Gram Negat tami [place] APPEA LORRI Mixed Gram Posit tami Kelly COLON Y COUNT Not Available [address] [place], [address] 07/15/2023 12:01:49 07/14/20 23 07/15/2023 URINE CULTU [...] 10,00 0 - 50,00 0 Not Available [address] [place], [address] 07/15/2023 12:01:49 07/14/20 23 07/16/2023 BLOOD CULTU RE ( AGE => 9 YRS) blood culture ( age => 9 yrs) Blood Cultu re ( Age => 9 Yrs) NO GROWT H 24 HOURS Not Available [address] [place], [address] 07/16/2023 01:44:19 07/14/20 23 07/16/2023 BLOOD CULTU RE ( AGE => 9 YRS) blood culture ( age => 9 yrs) Blood Cultu re ( Age => 9 Yrs) NO GROWT H 24 HOURS Not Available [address] [place], [address] 07/16/2023 01:45:19 07/14/2007/16/2023 URINE CULTU RE urine [...] tami Kelly COLON Y COUNT Not Available [address] [place], [address] 07/16/2023 12:09:38 07/14/2007/16/2023 URINE CULTU RE urine [...] 10,00 0 - 50,00 0 Not Available [address] [place], [address] 07/16/2023 12:09:38 07/14/20 23 07/17/2023 BLOOD CULTU RE ( AGE => 9 YRS) blood culture ( age => 9 yrs) Blood Cultu re ( Age => 9 Yrs) NO GROWT H 48 HOURS Not Available [address] [place], [address] 07/17/2023 01:46:15 07/14/20 23 07/17/2023 BLOOD CULTU RE ( AGE => 9 YRS) blood culture ( age => 9 yrs) Blood Cultu re ( Age => 9 Yrs) NO GROWT H 48 HOURS Not Available [address] [place], [address] 07/17/2023 01:47:15 07/14/2007/17/2023 URINE CULTU RE urine [...] tami Kelly COLON Y COUNT Not Available [address] [place], [address] 07/17/2023 08:04:26 07/14/2007/17/2023 URINE CULTU RE urine [...] zobac sargent S <=4 F Not Available [address] [place], [address] 07/17/2023 08:04:26 07/14/20 23 07/18/2023 BLOOD CULTU RE ( AGE => 9 YRS) blood culture ( age => 9 yrs) Blood Cultu re ( Age => 9 Yrs) NO GROWT H 72 HOURS Not Available [address] [place], [address] 07/18/2023 01:47:31 07/14/20 23 07/18/2023 BLOOD CULTU RE ( AGE => 9 YRS) blood culture ( age => 9 yrs) Blood Cultu re ( Age => 9 Yrs) NO GROWT H 72 HOURS Not Available [address] [place], [address] 07/18/2023 01:47:33 07/14/20 23 07/19/2023 BLOOD CULTU RE ( AGE => 9 YRS) blood culture ( age => 9 yrs) Blood Cultu re ( Age => 9 Yrs) NO GROWT H 96 HOURS Not Available [address] [place], [address] 07/19/2023 01:47:47 07/14/2007/19/2023 BLOOD CULTU RE ( AGE => 9 YRS) blood culture ( age => 9 yrs) Blood Cultu re ( Age => 9 Yrs) NO GROWT H 96 HOURS Not Available [address] [place], [address] 07/19/2023 01:47:50 07/14/2007/20/2023 BLOOD CULTU RE ( AGE => 9 YRS) blood culture ( age => 9 yrs) Blood Cultu re ( Age => 9 Yrs) NO GROWT H 120 HOURS Not Available [address] [place], [address] 07/20/2023 01:48:59 07/14/2007/20/2023 BLOOD CULTU RE ( AGE => 9 YRS) blood culture ( age => 9 yrs) Blood Cultu re ( Age => 9 Yrs) NO GROWT H 120 HOURS Not Available [address] [place], [address] 07/20/2023 01:49:01 07/15/2007/15/2023 LACTA TE lactate 1.2 mmol/ L 0.6-1. 4 normal Not Available [address] [place], [address] 07/15/2023 01:34:59 09/30/1909/30/2023 URINA LYSIS color Yellow yellow Not Available Sundar gore [address] [place], [address] 09/30/2023 14:00:17 09/30/19 24 09/30/2023 URINA LYSIS clarity Sl Cloudy clear Not Available Gurdeep graf [address] [place], [address] 09/30/2023 14:00:17 09/30/19 24 09/30/2023 URINA LYSIS specific gravity 1.020 1.005- 1.025 normal Not Available [address] [place], [address] 09/30/2023 14:00:17 09/30/19 24 09/30/2023 URINA LYSIS pH 7.0 5-8 normal Not Available Sundar gore [address] [place], [address] 09/30/2023 14:00:17 09/30/19 24 09/30/2023 URINA LYSIS leukocyte esterase Large negati ve abnormal Not Available [address] [place], [address] 09/30/2023 14:00:17 09/30/19 24 09/30/2023 URINA LYSIS nitrite Positi ve negati ve abnormal Not Available [address] [place], [address] 09/30/2023 14:00:17 09/30/19 24 09/30/2023 URINA LYSIS protein Trace mg/dL neg-tr cheryl Not Available [address] [place], [address] 09/30/2023 14:00:17 09/30/19 24 09/30/2023 URINA LYSIS glucose Negati ve mg/dL negati ve Not Available [address] [place], [address] 09/30/2023 14:00:17 09/30/19 24 09/30/2023 URINA LYSIS ketones Negati ve mg/dL negati ve Not Available [address] [place], [address] 09/30/2023 14:00:17 09/30/19 24 09/30/2023 URINA LYSIS urobilinogen 0.2 mg/dL up to 0.2 Not Available [address] [place], [address] 09/30/2023 14:00:17 09/30/19 24 09/30/2023 URINA LYSIS bilirubin Negati ve negati ve Not Available [address] [place], [address] 09/30/2023 14:00:17 09/30/19 24 09/30/2023 URINA LYSIS blood Trace- intact negati ve abnormal Not Available [address] [place], [address] 09/30/2023 14:00:17 09/30/19 24 09/30/2023 URINA LYSIS color Yellow yellow Not Available Sundar gore [address] [place], [address] 09/30/2023 14:08:17 09/30/19 24 09/30/2023 URINA LYSIS clarity Sl Cloudy clear Not Available Gurdeep graf [address] [place], [address] 09/30/2023 14:08:17 09/30/19 24 09/30/2023 URINA LYSIS specific gravity 1.020 1.005- 1.025 normal Not Available [address] [place], [address] 09/30/2023 14:08:17 09/30/19 24 09/30/2023 URINA LYSIS pH 7.0 5-8 normal Not Available Sundar gore [address] [place], [address] 09/30/2023 14:08:17 09/30/19 24 09/30/2023 URINA LYSIS leukocyte esterase Large negati ve abnormal Not Available [address] [place], [address] 09/30/2023 14:08:17 09/30/19 24 09/30/2023 URINA LYSIS nitrite Positi ve negati ve abnormal Not Available [address] [place], [address] 09/30/2023 14:08:17 09/30/19 24 09/30/2023 URINA LYSIS protein Trace mg/dL neg-tr cheryl Not Available [address] [place], [address] 09/30/2023 14:08:17 09/30/19 24 09/30/2023 URINA LYSIS glucose Negati ve mg/dL negati ve Not Available [address] [place], [address] 09/30/2023 14:08:17 02/23/09/30/2023 URINA LYSIS ketones Negati ve mg/dL negati ve Not Available [address] [place], [address] 09/30/2023 14:08:17 09/30/19 24 09/30/2023 URINA LYSIS urobilinogen 0.2 mg/dL up to 0.2 Not Available [address] [place], [address] 09/30/2023 14:08:17 09/30/19 24 09/30/2023 URINA LYSIS bilirubin Negati ve negati ve Not Available [address] [place], [address] 09/30/2023 14:08:17 09/30/19 24 09/30/2023 URINA LYSIS blood Trace- intact negati ve abnormal Not Available [address] [place], [address] 09/30/2023 14:08:17 09/30/19 24 09/30/2023 MICRO SCOPI C FINDI NGS WBC >50 hpf 0-5 abnormal WBC's obscu re micro scopi c exam. JH Not Available [address] [place], [address] 09/30/2023 14:08:18 09/30/19 24 09/30/2023 MICRO SCOPI C FINDI NGS C S indicated? C S Done As Ordere d Not Available [address] [place], [address] 09/30/2023 14:08:18 09/30/19 24 10/02/2023 URINE CULTU [...] tami Kelly COLON Y COUNT Not Available [address] [place], [address] 10/02/2023 08:35:13 09/30/19 24 10/02/2023 URINE CULTU [...] ID: [id number]) - <10,0 00 Not Available [address] [place], [address] 10/02/2023 08:35:13 10/05/19 24 10/05/2023 URINE CULTU RE urine culture Urine Cultu re Comme nt: New cath place d at time of urine colle ction . Comme nt: New cath place d at time of urine colle ction . APPEA LORRI Gram Posit tami Kelly APPEA LORRI Gram Negat tami [place] COLON Y COUNT Not Available [address] [place], [address] 10/06/2023 15:35:25 10/05/19 24 10/06/2023 URINE CULTU [...] ID: 1.2) - <10,0 00 Not Available [address] [place], [address] 10/06/2023 15:35:25 10/05/19 24 10/05/2023 URINE CULTU [...] tami [place] COLON Y COUNT Not Available [address] [place], [address] 10/07/2023 09:54:41 10/05/19 24 10/07/2023 URINE CULTU [...] ID: 1.2) - <10,0 00 Not Available [address] [place], [address] 10/07/2023 09:54:41 10/31/19 24 10/31/2023 URINE CULTU RE urine culture Urine Cultu re Comme nt: new place ment of indwe lling li cath Comme nt: new place ment of indwe lling li cath Possi ble conta minat ed colle ction APPEA LORRI Mixed Gram Posit tami Kelly COLON Y COUNT Not Available [address] [place], [address] 11/01/2023 11:15:19 10/31/19 24 11/01/2023 URINE CULTU RE urine culture colon ies/m L 10,00 0 - 50,00 0 Day 1 Resul t ISOLA ALEXANDRA BELOW O:GPF M (ORGA NISM ID: 1.1) - GRAM POSIT TAMI KELLY ,MIXE D Urine Cultu re (ORGA NISM ID: 1.1) - COLON Y COUNT (ORGA NISM ID: 1.1) - 10,00 0 - 50,00 0 Not Available [address] [place], [address] 11/01/2023 11:15:19 10/31/19 24 10/31/2023 URINE CULTU RE urine culture Urine Cultu re Comme nt: new place ment of indwe lling li cath Comme nt: new place ment of indwe lling li cath APPEA LORRI Gram Posit tami Kelly APPEA LORRI Yeast COLON Y COUNT Not Available [address] [place], [address] 11/02/2023 08:37:44 10/31/19 24 11/02/2023 URINE CULTU [...] 10,00 0 - 50,00 0 Not Available [address] [place], [address] 11/02/2023 08:37:44 11/29/19 24 11/29/2023 URINA LYSIS color Yellow yellow Not Available Sundar gore [address] [facility] [place], [address] 11/29/2023 13:40:12 11/29/19 24 11/29/2023 URINA LYSIS clarity Sl Cloudy clear Not Available Gurdeep graf [address] [facility] [place], [address] 11/29/2023 13:40:12 11/29/19 24 11/29/2023 URINA LYSIS specific gravity 1.020 1.005- 1.025 normal Not Available [address] [place], [address] 11/29/2023 13:40:12 11/29/19 24 11/29/2023 URINA LYSIS pH 6.5 5-8 normal Not Available Merrick kennedy [address] [place], [address] 11/29/2023 13:40:12 11/29/19 24 11/29/2023 URINA LYSIS leukocyte esterase Small negati ve abnormal Not Available [address] [place], [address] 11/29/2023 13:40:12 11/29/19 24 11/29/2023 URINA LYSIS nitrite Negati ve negati ve Not Available [address] [place], [address] 11/29/2023 13:40:12 11/29/19 24 11/29/2023 URINA LYSIS protein 100 mg/dL neg-tr cheryl abnormal Not Available [address] [place], [address] 11/29/2023 13:40:12 11/29/19 24 11/29/2023 URINA LYSIS glucose Negati ve mg/dL negati ve Not Available [address] [place], [address] 11/29/2023 13:40:12 11/29/19 24 11/29/2023 URINA LYSIS ketones Negati ve mg/dL negati ve Not Available [address] [place], [address] 11/29/2023 13:40:12 11/29/19 24 11/29/2023 URINA LYSIS urobilinogen 0.2 mg/dL up to 0.2 Not Available [address] [place], [address] 11/29/2023 13:40:12 11/29/19 24 11/29/2023 URINA LYSIS bilirubin Negati ve negati ve Not Available [address] [place], [address] 11/29/2023 13:40:12 11/29/19 24 11/29/2023 URINA LYSIS blood Trace- intact negati ve abnormal Not Available [address] [place], [address] 11/29/2023 13:40:12 11/29/19 24 11/29/2023 URINA LYSIS color Yellow yellow Not Available [facility] [address] [place], [address] 11/29/2023 13:57:16 11/29/19 24 11/29/2023 URINA LYSIS clarity Sl Cloudy clear Not Available [facility] [address] [place], [address] 11/29/2023 13:57:16 11/29/19 24 11/29/2023 URINA LYSIS specific gravity 1.020 1.005- 1.025 normal Not Available [address] [place], [address] 11/29/2023 13:57:16 11/29/19 24 11/29/2023 URINA LYSIS pH 6.5 5-8 normal Not Available [facility] [address] [place], [address] 11/29/2023 13:57:16 11/29/19 24 11/29/2023 URINA LYSIS leukocyte esterase Small negati ve abnormal Not Available [address] [place], [address] 11/29/2023 13:57:16 11/29/19 24 11/29/2023 URINA LYSIS nitrite Negati ve negati ve Not Available [address] [place], [address] 11/29/2023 13:57:16 11/29/19 24 11/29/2023 URINA LYSIS protein 100 mg/dL neg-tr cheryl abnormal Not Available [address] [place], [address] 11/29/2023 13:57:16 11/29/19 24 11/29/2023 URINA LYSIS glucose Negati ve mg/dL negati ve Not Available [address] [place], [address] 11/29/2023 13:57:16 11/29/19 24 11/29/2023 URINA LYSIS ketones Negati ve mg/dL negati ve Not Available [address] [place], [address] 11/29/2023 13:57:16 11/29/19 24 11/29/2023 URINA LYSIS urobilinogen 0.2 mg/dL up to 0.2 Not Available [address] [place], [address] 11/29/2023 13:57:16 11/29/19 24 11/29/2023 URINA LYSIS bilirubin Negati ve negati ve Not Available [address] [place], [address] 11/29/2023 13:57:16 11/29/19 24 11/29/2023 URINA LYSIS blood Trace- intact negati ve abnormal Not Available [address] [place], [address] 11/29/2023 13:57:16 11/29/19 24 11/29/2023 MICRO SCOPI C FINDI NGS WBC >50 hpf 0-5 abnormal Not Available [address] [place], [address] 11/29/2023 13:57:16 11/29/19 24 11/29/2023 MICRO SCOPI C FINDI NGS RBC 0-2 hpf 0-2 Not Available [address] [place], [address] 11/29/2023 13:57:16 11/29/19 24 11/29/2023 MICRO SCOPI C FINDI NGS epithelial cells Few hpf negati ve Not Available [address] [place], [address] 11/29/2023 13:57:16 11/29/19 24 11/29/2023 MICRO SCOPI C FINDI NGS bacteria Rare hpf negati ve Not Available [address] [place], [address] 11/29/2023 13:57:16 11/29/19 24 11/29/2023 MICRO SCOPI C FINDI NGS crystals Negati ve hpf negati ve Not Available [address] [place], [address] 11/29/2023 13:57:16 11/29/19 24 11/29/2023 MICRO SCOPI C FINDI NGS mucus Negati ve negati ve Not Available [address] [place], [address] 11/29/2023 13:57:16 11/29/19 24 11/29/2023 MICRO SCOPI C FINDI NGS casts 5-10 WBC lpf negati ve Not Available [address] [place], [address] 11/29/2023 13:57:16 11/29/19 24 11/29/2023 MICRO SCOPI C FINDI NGS C S indicated? C S Done As Ordere d Not Available [address] [place], [address] 11/29/2023 13:57:16 11/29/19 24 11/29/2023 URINE CULTU RE urine culture Urine Cultu re Comme nt: new li place d at time of sampl e colle ction Comme nt: new li place d at time of sampl e colle ction APPEA LORRI Gram Negat tami [place] COLON Y COUNT Not Available [address] [place], [address] 11/30/2023 09:04:55 11/29/19 24 11/30/2023 URINE CULTU RE urine culture colon ies/m L <10,0 00 Day 1 Resul t ISOLA ALEXANDRA BELOW O:GNR (ORGA NISM ID: 1.1) - GRAM NEGAT TAMI [place] Urine Cultu re (ORGA NISM ID: 1.1) - COLON Y COUNT (ORGA NISM ID: 1.1) - <10,0 00 Not Available [address] [place], [address] 11/30/2023 09:04:55 11/29/19 24 11/29/2023 URINE CULTU RE urine culture Urine Cultu re Comme nt: new li place d at time of sampl e colle ction Comme nt: new li place d at time of sampl e colle ction APPEA LORRI Gram Negat tami [place] APPEA LORRI Gram Negat tami [place] COLON Y COUNT Not Available [address] [place], [address] 12/01/2023 11:38:49 11/29/19 24 12/01/2023 URINE CULTU [...] ID: 1.1) - <10,0 00 Not Available [address] [place], [address] 12/01/2023 11:38:49 01/05/20 24 01/05/2024 URINA LYSIS color Yellow yellow Not Available [facility] [address] [place], [address] 01/05/2024 21:53:05 01/05/20 24 01/05/2024 URINA LYSIS clarity Cloudy clear Not Available [facility] [address] [place], [address] 01/05/2024 21:53:05 01/05/20 24 01/05/2024 URINA LYSIS specific gravity >= 1.030 1.005- 1.025 high Not Available [address] [place], [address] 01/05/2024 21:53:05 01/05/20 24 01/05/2024 URINA LYSIS pH 6.0 5-8 normal Not Available [facility] [address] [place], [address] 01/05/2024 21:53:05 01/05/20 24 01/05/2024 URINA LYSIS leukocyte esterase Large negati ve abnormal Not Available [address] [place], [address] 01/05/2024 21:53:05 01/05/20 24 01/05/2024 URINA LYSIS nitrite Positi ve negati ve abnormal Not Available [address] [place], [address] 01/05/2024 21:53:05 01/05/20 24 01/05/2024 URINA LYSIS protein 100 mg/dL neg-tr cheryl abnormal Not Available [address] [place], [address] 01/05/2024 21:53:05 01/05/20 24 01/05/2024 URINA LYSIS glucose Negati ve mg/dL negati ve Not Available [address] [place], [address] 01/05/2024 21:53:05 01/05/20 24 01/05/2024 URINA LYSIS ketones Negati ve mg/dL negati ve Not Available [address] [place], [address] 01/05/2024 21:53:05 01/05/20 24 01/05/2024 URINA LYSIS urobilinogen 0.2 mg/dL up to 0.2 Not Available [address] [place], [address] 01/05/2024 21:53:05 01/05/20 24 01/05/2024 URINA LYSIS bilirubin Negati ve negati ve Not Available [address] [place], [address] 01/05/2024 21:53:05 01/05/20 24 01/05/2024 URINA LYSIS blood Large negati ve abnormal Not Available [address] [place], [address] 01/05/2024 21:53:05 01/05/20 24 01/05/2024 URINA LYSIS color Yellow yellow Not Available [facility] [address] [place], [address] 01/05/2024 21:58:06 01/05/20 24 01/05/2024 URINA LYSIS clarity Cloudy clear Not Available [facility] [address] [place], [address] 01/05/2024 21:58:06 01/05/20 24 01/05/2024 URINA LYSIS specific gravity >= 1.030 1.005- 1.025 high Not Available [address] [place], [address] 01/05/2024 21:58:06 01/05/20 24 01/05/2024 URINA LYSIS pH 6.0 5-8 normal Not Available [facility] [address] [place], [address] 01/05/2024 21:58:06 01/05/20 24 01/05/2024 URINA LYSIS leukocyte esterase Large negati ve abnormal Not Available [address] [place], [address] 01/05/2024 21:58:06 01/05/20 24 01/05/2024 URINA LYSIS nitrite Positi ve negati ve abnormal Not Available [address] [place], [address] 01/05/2024 21:58:06 01/05/20 24 01/05/2024 URINA LYSIS protein 100 mg/dL neg-tr cheryl abnormal Not Available [address] [place], [address] 01/05/2024 21:58:06 01/05/20 24 01/05/2024 URINA LYSIS glucose Negati ve mg/dL negati ve Not Available [address] [place], [address] 01/05/2024 21:58:06 01/05/20 24 01/05/2024 URINA LYSIS ketones Negati ve mg/dL negati ve Not Available [address] [place], [address] 01/05/2024 21:58:06 01/05/20 24 01/05/2024 URINA LYSIS urobilinogen 0.2 mg/dL up to 0.2 Not Available [address] [place], [address] 01/05/2024 21:58:06 01/05/20 24 01/05/2024 URINA LYSIS bilirubin Negati ve negati ve Not Available [address] [place], [address] 01/05/2024 21:58:06 01/05/20 24 01/05/2024 URINA LYSIS blood Large negati ve abnormal Not Available [address] [place], [address] 01/05/2024 21:58:06 01/05/20 24 01/05/2024 MICRO SCOPI C FINDI NGS WBC >50 hpf 0-5 abnormal WBC's obscu re micro scopi c exam. Not Available [address] [place], [address] 01/05/2024 21:58:06 01/05/20 24 01/05/2024 MICRO SCOPI C FINDI NGS RBC hpf 0-2 PRESE NT BUT UNABL E TO QUANT ITATE DUE TO WBC's obscu re micro scopi c exam. Not Available [address] [place], [address] 01/05/2024 21:58:06 01/05/20 24 01/05/2024 MICRO SCOPI C FINDI NGS C S indicated? Yes Not Available [address] [place], [address] 01/05/2024 21:58:06 01/05/20 24 01/07/2024 URINE CULTU RE urine culture Urine Cultu re ACTIO N ID AND SUSCE PTIBI LITY TO FOLLO W ACTIO N ID AND SUSCE PTIBI LITY TO FOLLO W APPEA LORRI Gram Negat tami [place] APPEA LORRI Gram Negat tami [place] COLON Y COUNT Not Available [address] [place], [address] 01/07/2024 09:38:29 01/05/20 24 01/07/2024 URINE CULTU [...] ID: 1.2) - >100, 000 Not Available [address] [place], [address] 01/07/2024 09:38:29 01/05/20 24 01/08/2024 URINE CULTU [...] tami [place] COLON Y COUNT Not Available [address] [place], [address] 01/08/2024 07:49:32 01/05/20 24 01/08/2024 URINE CULTU [...] zobac sargent S <=4 F Not Available [address] [place], [address] 01/08/2024 07:49:32 01/24/20 24 01/24/2024 URINE CULTU RE urine culture Urine Cultu re Comme nt: sampl e colle [facility]ted at [facility] Comme nt: sampl e colle cted at [facility] e ACTIO N ID AND SUSCE PTIBI LITY TO FOLLO W APPEA LORRI Gram Negat tami [place] APPEA LORRI Mixed Gram Negat tami [place] COLON Y COUNT Not Available [address] [place], [address] 01/25/2024 10:39:48 01/24/20 24 01/25/2024 URINE CULTU [...] ID: 1.2) - <10,0 00 Not Available [address] [place], [address] 01/25/2024 10:39:48 01/24/20 24 01/24/2024 URINE CULTU RE urine culture Urine Cultu re Comme nt: sampl e colle cted at [facility] Comme nt: sampl e colle cted at [facility] e ACTIO N ID AND SUSCE PTIBI LITY TO FOLLO W ACTIO N ID AND SUSCE PTIBI LITY TO FOLLO W APPEA LORRI Gram Negat tami [place] APPEA LORRI Mixed Gram Negat tami [place] APPEA LORRI Gram Negat tami [place] APPEA LORRI Mixed Gram Negat tami [place] COLON Y COUNT Not Available [address] [place], [address] 01/26/2024 09:39:52 01/24/20 24 01/26/2024 URINE CULTU [...] ID: 1.2) - <10,0 00 Not Available [address] [place], [address] 01/26/2024 09:39:52 01/24/20 24 01/24/2024 URINE CULTU RE urine culture Urine Cultu re Comme nt: sampl e colle cted at [facility] Comme nt: sampl e colle cted at [facility] e ACTIO N ID AND SUSCE PTIBI LITY TO FOLLO W ACTIO N ID AND SUSCE PTIBI LITY TO FOLLO W APPEA LORRI Gram Negat tami [place] APPEA LORRI Mixed Gram Negat tami [place] APPEA LORRI Gram Negat tami [place] APPEA LORRI Mixed Gram Negat tami [place] COLON Y COUNT Not Available [address] [place], [address] 01/26/2024 11:25:10 01/24/20 24 01/26/2024 URINE CULTU [...] ID: 1.2) - <10,0 00 Not Available [address] [place], [address] 01/26/2024 11:25:10 01/24/20 24 01/24/2024 URINE CULTU RE urine culture Urine Cultu re Comme nt: sampl e colle cted [facility] Comme nt: sampl e colle cted at [facility] ACTIO N ID AND SUSCE PTIBI [...] tami [place] COLON Y COUNT Not Available [facility] [address] [facility] , [place], [address] 01/27/2024 08:11:06 01/24/20 24 01/27/2024 URINE CULTU [...] zobac sargent S <=4 F Not Available [address] [place], [address] 01/27/2024 08:11:06 04/06/20 24 04/06/2024 URINA LYSIS color Yellow yellow Not Available [facility] [address] [place], [address] 04/06/2024 17:58:21 04/06/20 24 04/06/2024 URINA LYSIS clarity Sl Cloudy clear Not Available [facility] [address] [place], [address] 04/06/2024 17:58:21 04/06/20 24 04/06/2024 URINA LYSIS specific gravity 1.020 1.005- 1.025 normal Not Available [address] [place], [address] 04/06/2024 17:58:21 04/06/20 24 04/06/2024 URINA LYSIS pH 7.0 5-8 normal Not Available [facility] [address] [place], [address] 04/06/2024 17:58:21 04/06/20 24 04/06/2024 URINA LYSIS leukocyte esterase Modera te negati ve abnormal Not Available [address] [place], [address] 04/06/2024 17:58:21 04/06/20 24 04/06/2024 URINA LYSIS nitrite Negati ve negati ve Not Available [address] [place], [address] 04/06/2024 17:58:21 04/06/20 24 04/06/2024 URINA LYSIS protein 100 mg/dL neg-tr cheryl abnormal Not Available [address] [place], [address] 04/06/2024 17:58:21 04/06/20 24 04/06/2024 URINA LYSIS glucose Negati ve mg/dL negati ve Not Available [address] [place], [address] 04/06/2024 17:58:21 04/06/20 24 04/06/2024 URINA LYSIS ketones Negati ve mg/dL negati ve Not Available [address] [place], [address] 04/06/2024 17:58:21 04/06/20 24 04/06/2024 URINA LYSIS urobilinogen 0.2 mg/dL up to 0.2 Not Available [address] [place], [address] 04/06/2024 17:58:21 04/06/20 24 04/06/2024 URINA LYSIS bilirubin Negati ve negati ve Not Available [address] [place], [address] 04/06/2024 17:58:21 04/06/20 24 04/06/2024 URINA LYSIS blood Modera te negati ve abnormal Not Available [address] [place], [address] 04/06/2024 17:58:21 04/06/20 24 04/06/2024 COVID /FLU/ RSV PCR source NASOPH ARYNX Not Available [facility] [address] [place], [address] 04/06/2024 18:02:22 04/06/20 24 04/06/2024 COVID /FLU/ [...] tion of nucle ic acid from the 2018 novel coron a virus (2018nCoV ), influ eboni A, influ eboni B, [...] histo ry, and epide miolo gical infor matio n. Testi ng perfo rmed at [facility] (CLIA #[id number]) on the EBIQUOUS id GeneX pert. Not Available [address] [place], [address] 04/06/2024 18:02:22 04/06/20 24 04/06/2024 COVID /FLU/ RSV PCR influenza A PCR Negati ve negati ve Not Available [address] [facility] [place], [address] 04/06/2024 18:02:22 04/06/20 24 04/06/2024 COVID /FLU/ RSV PCR influenza B PCR Negati ve negati ve Not Available [address] [place], [address] 04/06/2024 18:02:22 04/06/20 24 04/06/2024 COVID /FLU/ RSV PCR RSV PCR Negati ve negati ve Not Available [address] [place], [address] 04/06/2024 18:02:22 04/06/20 24 04/06/2024 URINA LYSIS color Yellow yellow Not Available [facility] [address] [place], [address] 04/06/2024 18:07:23 04/06/20 24 04/06/2024 URINA LYSIS clarity Sl Cloudy clear Not Available [facility] [address] [facility] [place], [address] 04/06/2024 18:07:23 04/06/20 24 04/06/2024 URINA LYSIS specific gravity 1.020 1.005- 1.025 normal Not Available [address] [place], [address] 04/06/2024 18:07:23 04/06/20 24 04/06/2024 URINA LYSIS pH 7.0 5-8 normal Not Available [facility]ar [facility] [address] [place], [address] 04/06/2024 18:07:23 04/06/20 24 04/06/2024 URINA LYSIS leukocyte esterase Modera te negati ve abnormal Not Available [address] [place], [address] 04/06/2024 18:07:23 04/06/20 24 04/06/2024 URINA LYSIS nitrite Negati ve negati ve Not Available [address] [place], [address] 04/06/2024 18:07:23 04/06/20 24 04/06/2024 URINA LYSIS protein 100 mg/dL neg-tr cheryl abnormal Not Available [address] [place], [address] 04/06/2024 18:07:23 04/06/20 24 04/06/2024 URINA LYSIS glucose Negati ve mg/dL negati ve Not Available [address] [place], [address] 04/06/2024 18:07:23 04/06/20 24 04/06/2024 URINA LYSIS ketones Negati ve mg/dL negati ve Not Available [address] [place], [address] 04/06/2024 18:07:23 04/06/20 24 04/06/2024 URINA LYSIS urobilinogen 0.2 mg/dL up to 0.2 Not Available [address] [place], [address] 04/06/2024 18:07:23 04/06/20 24 04/06/2024 URINA LYSIS bilirubin Negati ve negati ve Not Available [address] [place], [address] 04/06/2024 18:07:23 04/06/20 24 04/06/2024 URINA LYSIS blood Modera te negati ve abnormal Not Available [address] [place], [address] 04/06/2024 18:07:23 04/06/20 24 04/06/2024 MICRO SCOPI C FINDI NGS WBC 20-50 hpf 0-5 abnormal Not Available [address] [place], [address] 04/06/2024 18:07:24 04/06/20 24 04/06/2024 MICRO SCOPI C FINDI NGS RBC 10-20 hpf 0-2 abnormal Not Available [address] [place], [address] 04/06/2024 18:07:24 04/06/20 24 04/06/2024 MICRO SCOPI C FINDI NGS epithelial cells Negati ve hpf negati ve Not Available [address] [place], [address] 04/06/2024 18:07:24 04/06/20 24 04/06/2024 MICRO SCOPI C FINDI NGS bacteria Rare hpf negati ve Not Available [address] [place], [address] 04/06/2024 18:07:24 04/06/20 24 04/06/2024 MICRO SCOPI C FINDI NGS crystals Negati ve hpf negati ve Not Available [address] [place], [address] 04/06/2024 18:07:24 04/06/20 24 04/06/2024 MICRO SCOPI C FINDI NGS mucus Negati ve negati ve Not Available [address] [place], [address] 04/06/2024 18:07:24 04/06/20 24 04/06/2024 MICRO SCOPI C FINDI NGS C S indicated? Yes Not Available [address] [place], [address] 04/06/2024 18:07:24 04/06/20 24 04/06/2024 COMPL ETE BLOOD COUNT W/DIF F WBC 13.00 10_3/ uL 4.4-10 .8 high Not Available [address] [place], [address] 04/06/2024 20:17:37 04/06/20 24 04/06/2024 COMPL ETE BLOOD COUNT W/DIF F RBC 4.76 10_6/ uL 4.36-5 .78 normal Not Available [address] [place], [address] 04/06/2024 20:17:37 04/06/20 24 04/06/2024 COMPL ETE BLOOD COUNT W/DIF F HGB 13.7 g/dL 13.5-1 7.5 normal Not Available [address] [place], [address] 04/06/2024 20:17:37 04/06/20 24 04/06/2024 COMPL ETE BLOOD COUNT W/DIF F HCT 42.5 % 40.0-5 0.0 normal Not Available [address] [place], [address] 04/06/2024 20:17:37 04/06/20 24 04/06/2024 COMPL ETE BLOOD COUNT W/DIF F MCV 89 fL 80-95 normal Not Available [address] [place], [address] 04/06/2024 20:17:37 04/06/20 24 04/06/2024 COMPL ETE BLOOD COUNT W/DIF F MCH 28.8 pg 27.0-3 3.0 normal Not Available [address] [place], [address] 04/06/2024 20:17:37 04/06/20 24 04/06/2024 COMPL ETE BLOOD COUNT W/DIF F MCHC 32.2 % 32.0-3 6.0 normal Not Available [address] [place], [address] 04/06/2024 20:17:37 04/06/20 24 04/06/2024 COMPL ETE BLOOD COUNT W/DIF F RDW 13.2 % 11.8-1 4.1 normal Not Available [address] [place], [address] 04/06/2024 20:17:37 04/06/20 24 04/06/2024 COMPL ETE BLOOD COUNT W/DIF F platelet count 178 10_3/ uL 130-40 0 normal Not Available [address] [place], [address] 04/06/2024 20:17:37 04/06/20 24 04/06/2024 COMPL ETE BLOOD COUNT W/DIF F MPV 10.4 fL 8.0-11 .0 normal Not Available [address] [place], [address] 04/06/2024 20:17:37 04/06/20 24 04/06/2024 COMPL ETE BLOOD COUNT W/DIF F neutrophils % 88.0 % Not Available [address] [place], [address] 04/06/2024 20:17:37 04/06/20 24 04/06/2024 COMPL ETE BLOOD COUNT W/DIF F lymphocytes % 6.6 % Not Available [address] [place], [address] 04/06/2024 20:17:37 04/06/20 24 04/06/2024 COMPL ETE BLOOD COUNT W/DIF F monocytes % 4.4 % Not Available [address] [place], [address] 04/06/2024 20:17:37 04/06/20 24 04/06/2024 COMPL ETE BLOOD COUNT W/DIF F eosinophils % 0.4 % Not Available [address] [place] [place], [address] 04/06/2024 20:17:37 04/06/20 24 04/06/2024 COMPL ETE BLOOD COUNT W/DIF F basophils % 0.3 % Not Available [address] [place], [address] 04/06/2024 20:17:37 04/06/20 24 04/06/2024 COMPL ETE BLOOD COUNT W/DIF F immature grans % 0.3 % Not Available [facility] [address] [place], [address] 04/06/2024 20:17:37 04/06/20 24 04/06/2024 COMPL ETE BLOOD COUNT W/DIF F nucleated RBC 0.0 % 0.0-0. 3 normal Not Available [address] [place], [address] 04/06/2024 20:17:37 04/06/20 24 04/06/2024 COMPL ETE BLOOD COUNT W/DIF F absolute neutrophil count 11.44 10_3/ uL 1.2-6. 7 high Not Available [address] [place], [address] 04/06/2024 20:17:37 04/06/20 24 04/06/2024 COMPL ETE BLOOD COUNT W/DIF F absolute lymphocyte count 0.86 10_3/ uL 1.2-3. 4 low Not Available [address] [place], [address] 04/06/2024 20:17:37 04/06/20 24 04/06/2024 COMPL ETE BLOOD COUNT W/DIF F absolute monocyte count 0.57 10_3/ uL 0.1-0. 8 normal Not Available [address] [place], [address] 04/06/2024 20:17:37 04/06/20 24 04/06/2024 COMPL ETE BLOOD COUNT W/DIF F absolute eosinophil count 0.05 10_3/ uL 0.0-0. 7 normal Not Available [address] [place], [address] 04/06/2024 20:17:37 04/06/20 24 04/06/2024 COMPL ETE BLOOD COUNT W/DIF F absolute basophil count 0.04 10_3/ uL 0.0-0. 2 normal Not Available [address] [place], [address] 04/06/2024 20:17:37 04/06/20 24 04/06/2024 COMPR EHENS TAMI METAB OLIC PANEL calcium 8.3 mg/dL 8.5-10 .1 low Not Available [address] [place], [address] 04/06/2024 20:39:40 04/06/20 24 04/06/2024 COMPR EHENS TAMI METAB OLIC PANEL glucose 122 mg/dL 74-106 high Not Available [facility] [address] [place], [address] 04/06/2024 20:39:40 04/06/20 24 04/06/2024 COMPR EHENS TAMI METAB OLIC PANEL BUN 14 mg/dL 7-18 normal Not Available [facility] [address] [place], [address] 04/06/2024 20:39:40 04/06/20 24 04/06/2024 COMPR EHENS TAMI METAB OLIC PANEL creatinine 1.4 mg/dL 0.70-1 .30 high Not Available [address] [place], [address] 04/06/2024 20:39:40 04/06/20 24 04/06/2024 COMPR EHENS [...] young er-ag ed adult s. Not Available [address] [place], [address] 04/06/2024 20:39:40 04/06/20 24 04/06/2024 COMPR EHENS TAMI METAB OLIC PANEL total protein 6.1 g/dL 6.4-8. 2 low Not Available [address] [place], [address] 04/06/2024 20:39:40 04/06/20 24 04/06/2024 COMPR EHENS TAMI METAB OLIC PANEL albumin 2.8 g/dL 3.4-5. 0 low Not Available [address] [place], [address] 04/06/2024 20:39:40 04/06/20 24 04/06/2024 COMPR EHENS TAMI METAB OLIC PANEL bilirubin, total 0.31 mg/dL 0.2-1. 0 normal Not Available [address] [place], [address] 04/06/2024 20:39:40 04/06/20 24 04/06/2024 COMPR EHENS TAMI METAB OLIC PANEL alk phos 101 U/L 46-116 normal Not Available [address] [place], [address] 04/06/2024 20:39:40 04/06/20 24 04/06/2024 COMPR EHENS TAMI METAB OLIC PANEL sodium 138 mmol/ L 136-14 5 normal Not Available [address] [place], [address] 04/06/2024 20:39:40 04/06/20 24 04/06/2024 COMPR EHENS TAMI METAB OLIC PANEL potassium 4.5 mmol/ L 3.5-5. 1 normal Not Available [address] [place], [address] 04/06/2024 20:39:40 04/06/20 24 04/06/2024 COMPR EHENS TAMI METAB OLIC PANEL chloride 103 mmol/ L 98-107 normal Not Available [address] [place], [address] 04/06/2024 20:39:40 04/06/20 24 04/06/2024 COMPR EHENS TAMI METAB OLIC PANEL CO2 30.4 mmol/ L 21.0-3 2.0 normal Not Available [address] [place], [address] 04/06/2024 20:39:40 04/06/20 24 04/06/2024 COMPR EHENS TAMI METAB OLIC PANEL anion gap 4.6 mmol/ L 3-11 normal Not Available [address] [place], [address] 04/06/2024 20:39:40 04/06/20 24 04/06/2024 COMPR EHENS TAMI METAB OLIC PANEL AST 33 U/L 15-37 normal Not Available Sundar gore [address] [place], [address] 04/06/2024 20:39:40 04/06/20 24 04/06/2024 COMPR EHENS TAMI METAB OLIC PANEL ALT 34 U/L 16-63 normal Not Available Sundar gore [address] [place], [address] 04/06/2024 20:39:40 04/06/20 24 04/07/2024 URINE CULTU RE urine culture Urine Cultu re ACTIO N ID AND SUSCE PTIBI LITY TO JOANIEO W APPEA LORRI Gram Negat tami [place] COLON Y COUNT Not Available [address] [place], [address] 04/07/2024 11:31:40 04/06/20 24 04/07/2024 URINE CULTU RE urine culture colon ies/m L >100, 000 Day 1 Resul t ISOLA ALEXANDRA BELOW O:PRO SPE (ORGA NISM ID: 1.1) - PROTE US SPECI ES Urine Cultu re (ORGA NISM ID: 1.1) - COLON Y COUNT (ORGA NISM ID: 1.1) - >100, 000 Not Available [address] [place], [address] 04/07/2024 11:31:40 04/06/20 24 04/08/2024 URINE CULTU RE urine culture Urine Cultu re ACTIO N ID AND SUSCE PTIBI LITY TO FOLLO W APPEA LORRI Gram Negat tami [place] APPEA LORRI Gram Negat tami [place] COLON Y COUNT Not Available [address] [place], [address] 04/08/2024 09:49:13 04/06/20 24 04/08/2024 URINE CULTU [...] zobac sargent S <=4 F Not Available [address] [place], [address] 04/08/2024 09:49:13 05/21/20 24 05/26/2024 BLOOD CULTU RE ( AGE => 9 YRS) blood culture ( age => 9 yrs) Blood Cultu re ( Age => 9 Yrs) NO GROWT H 120 HOURS Not Available [address] [place], [address] 05/26/2024 15:07:32 05/21/20 24 05/25/2024 BLOOD CULTU RE ( AGE => 9 YRS) blood culture ( age => 9 yrs) Blood Cultu re ( Age => 9 Yrs) NO GROWT H 96 HOURS Not Available [address] [place], [address] 05/25/2024 15:08:11 05/21/20 24 05/24/2024 BLOOD CULTU RE ( AGE => 9 YRS) blood culture ( age => 9 yrs) Blood Cultu re ( Age => 9 Yrs) NO GROWT H 72 HOURS Not Available [address] [place], [address] 05/24/2024 15:09:06 05/21/20 24 05/23/2024 BLOOD CULTU RE ( AGE => 9 YRS) blood culture ( age => 9 yrs) Blood Cultu re ( Age => 9 Yrs) NO GROWT H 48 HOURS Not Available [address] [place], [address] 05/23/2024 15:08:52 05/21/20 24 05/22/2024 BLOOD CULTU RE ( AGE => 9 YRS) blood culture ( age => 9 yrs) Blood Cultu re ( Age => 9 Yrs) NO GROWT H 24 HOURS Not Available [address] [place], [address] 05/22/2024 15:09:07 05/21/20 24 05/26/2024 BLOOD CULTU RE ( AGE => 9 YRS) blood culture ( age => 9 yrs) Blood Cultu re ( Age => 9 Yrs) NO GROWT H 120 HOURS Not Available [address] [place], [address] 05/26/2024 14:36:30 05/21/2005/21/2024 PROCA LCITO SAMIR procalcitoni [...] se, among other cause s. Not Available [address] [place], [address] 05/21/2024 14:11:09 05/21/2005/21/2024 LIPAS E lipase 25 U/L 16-77 normal Not Available Sundar gore [address] [place], [address] 05/21/2024 13:03:03 05/21/2005/21/2024 MAGNE SIUM magnesium 1.5 mg/dL 1.8-2. 4 low Not Available [address] [place], [address] 05/21/2024 13:03:02 05/21/2005/21/2024 CREAT INE KINAS E creatine kinase 150 U/L 39-308 normal Not Available Francesca howard [address] [place], [address] 05/21/2024 13:03:01 05/21/2005/21/2024 COMPR EHENS TAMI METAB OLIC PANEL calcium 9.0 mg/dL 8.5-10 .1 normal Not Available [address] [place], [address] 05/21/2024 13:03:00 05/21/2005/21/2024 COMPR EHENS TAMI METAB OLIC PANEL glucose 100 mg/dL 74-106 normal Not Available Sundar gore [address] [place], [address] 05/21/2024 13:03:00 05/21/2005/21/2024 COMPR EHENS TAMI METAB OLIC PANEL BUN 17 mg/dL 7-18 normal Not Available Sundar gore [address] [place], [address] 05/21/2024 13:03:00 05/21/2005/21/2024 COMPR EHENS TAMI METAB OLIC PANEL creatinine 1.3 mg/dL 0.70-1 .30 normal Not Available [address] [place], [address] 05/21/2024 13:03:00 05/21/2005/21/2024 COMPR EHENS TAMI METAB [...] young er-ag ed adult s. Not Available [address] [place], [address] 05/21/2024 13:03:00 05/21/2005/21/2024 COMPR EHENS TAMI METAB OLIC PANEL total protein 7.1 g/dL 6.4-8. 2 normal Not Available [address] [place], [address] 05/21/2024 13:03:00 05/21/2005/21/2024 COMPR EHENS TAMI METAB OLIC PANEL albumin 3.4 g/dL 3.4-5. 0 normal Not Available [address] [place], [address] 05/21/2024 13:03:00 05/21/2005/21/2024 COMPR EHENS TAMI METAB OLIC PANEL bilirubin, total 0.54 mg/dL 0.2-1. 0 normal Not Available [address] [place], [address] 05/21/2024 13:03:00 05/21/2005/21/2024 COMPR EHENS TAMI METAB OLIC PANEL alk phos 114 U/L 46-116 normal Not Available [address] [place], [address] 05/21/2024 13:03:00 05/21/2005/21/2024 COMPR EHENS TAMI METAB OLIC PANEL sodium 134 mmol/ L 136-14 5 low Not Available [address] [place], [address] 05/21/2024 13:03:00 05/21/2005/21/2024 COMPR EHENS TAMI METAB OLIC PANEL potassium 4.0 mmol/ L 3.5-5. 1 normal Not Available [address] [place], [address] 05/21/2024 13:03:00 05/21/2005/21/2024 COMPR EHENS TAMI METAB OLIC PANEL chloride 99 mmol/ L 98-107 normal Not Available [address] [place], [address] 05/21/2024 13:03:00 05/21/2005/21/2024 COMPR EHENS TAMI METAB OLIC PANEL CO2 26.4 mmol/ L 21.0-3 2.0 normal Not Available [address] [place], [address] 05/21/2024 13:03:00 05/21/2005/21/2024 COMPR EHENS TAMI METAB OLIC PANEL anion gap 8.6 mmol/ L 3-11 normal Not Available [address] [place], [address] 05/21/2024 13:03:00 05/21/2005/21/2024 COMPR EHENS TAMI METAB OLIC PANEL AST 20 U/L 15-37 normal Not Available Sundar gore [address] [place], [address] 05/21/2024 13:03:00 05/21/2005/21/2024 COMPR EHENS TAMI METAB OLIC PANEL ALT 40 U/L 16-63 normal Not Available Sundar gore [address] [place], [address] 05/21/2024 13:03:00 05/21/2005/21/2024 LACTA TE lactate 1.8 mmol/ L 0.6-1. 4 high Not Available [address] [place], [address] 05/21/2024 12:43:55 05/21/2005/21/2024 COMPL ETE BLOOD COUNT W/DIF F WBC 13.97 10_3/ uL 4.4-10 .8 high Not Available [address] [facility] [place], [address] 05/21/2024 12:41:54 05/21/2005/21/2024 COMPL ETE BLOOD COUNT W/DIF F RBC 5.41 10_6/ uL 4.36-5 .78 normal Not Available [address] [facility] [place], [address] 05/21/2024 12:41:54 05/21/2005/21/2024 COMPL ETE BLOOD COUNT W/DIF F HGB 15.4 g/dL 13.5-1 7.5 normal Not Available [address] [place], [address] 05/21/2024 12:41:54 05/21/2005/21/2024 COMPL ETE BLOOD COUNT W/DIF F HCT 46.7 % 40.0-5 0.0 normal Not Available [address] [facility] [place], [address] 05/21/2024 12:41:54 05/21/2005/21/2024 COMPL ETE BLOOD COUNT W/DIF F MCV 86 fL 80-95 normal Not Available Sundar gore [address] [place], [address] 05/21/2024 12:41:54 05/21/2005/21/2024 COMPL ETE BLOOD COUNT W/DIF F MCH 28.5 pg 27.0-3 3.0 normal Not Available [address] [facility] [place], [address] 05/21/2024 12:41:54 05/21/2005/21/2024 COMPL ETE BLOOD COUNT W/DIF F MCHC 33.0 % 32.0-3 6.0 normal Not Available [address] [place], [address] 05/21/2024 12:41:54 05/21/2005/21/2024 COMPL ETE BLOOD COUNT W/DIF F RDW 13.2 % 11.8-1 4.1 normal Not Available [address] [place], [address] 05/21/2024 12:41:54 05/21/2005/21/2024 COMPL ETE BLOOD COUNT W/DIF F platelet count 239 10_3/ uL 130-40 0 normal Not Available [address] [place], [address] 05/21/2024 12:41:54 05/21/2005/21/2024 COMPL ETE BLOOD COUNT W/DIF F MPV 10.0 fL 8.0-11 .0 normal Not Available [address] [place], [address] 05/21/2024 12:41:54 05/21/2005/21/2024 COMPL ETE BLOOD COUNT W/DIF F neutrophils % 87.8 % Not Available [address] [facility] [place], [address] 05/21/2024 12:41:54 05/21/2005/21/2024 COMPL ETE BLOOD COUNT W/DIF F lymphocytes % 5.7 % Not Available [address] [facility] [place], [address] 05/21/2024 12:41:54 05/21/2005/21/2024 COMPL ETE BLOOD COUNT W/DIF F monocytes % 5.0 % Not Available [address] [place], [address] 05/21/2024 12:41:54 05/21/2005/21/2024 COMPL ETE BLOOD COUNT W/DIF F eosinophils % 0.7 % Not Available [address] [place], [address] 05/21/2024 12:41:54 05/21/2005/21/2024 COMPL ETE BLOOD COUNT W/DIF F basophils % 0.4 % Not Available [address] [place], [address] 05/21/2024 12:41:54 05/21/2005/21/2024 COMPL ETE BLOOD COUNT W/DIF F immature grans % 0.4 % Not Available [address] [place], [address] 05/21/2024 12:41:54 05/21/2005/21/2024 COMPL ETE BLOOD COUNT W/DIF F nucleated RBC 0.0 % 0.0-0. 3 normal Not Available [address] [place], [address] 05/21/2024 12:41:54 05/21/2005/21/2024 COMPL ETE BLOOD COUNT W/DIF F absolute neutrophil count 12.27 10_3/ uL 1.2-6. 7 high Not Available [address] [place], [address] 05/21/2024 12:41:54 05/21/2005/21/2024 COMPL ETE BLOOD COUNT W/DIF F absolute lymphocyte count 0.80 10_3/ uL 1.2-3. 4 low Not Available [address] [place], [address] 05/21/2024 12:41:54 05/21/2005/21/2024 COMPL ETE BLOOD COUNT W/DIF F absolute monocyte count 0.70 10_3/ uL 0.1-0. 8 normal Not Available [address] [place], [address] 05/21/2024 12:41:54 05/21/2005/21/2024 COMPL ETE BLOOD COUNT W/DIF F absolute eosinophil count 0.10 10_3/ uL 0.0-0. 7 normal Not Available [address] [place], [address] 05/21/2024 12:41:54 05/21/2005/21/2024 COMPL ETE BLOOD COUNT W/DIF F absolute basophil count 0.06 10_3/ uL 0.0-0. 2 normal Not Available [address] [place], [address] 05/21/2024 12:41:54 05/21/2005/25/2024 BLOOD CULTU RE ( AGE => 9 YRS) blood culture ( age => 9 yrs) Blood Cultu re ( Age => 9 Yrs) NO GROWT H 96 HOURS Not Available [address] [place], [address] 05/25/2024 14:36:58 05/21/2005/24/2024 BLOOD CULTU RE ( AGE => 9 YRS) blood culture ( age => 9 yrs) Blood Cultu re ( Age => 9 Yrs) NO GROWT H 72 HOURS Not Available [address] [place], [address] 05/24/2024 14:38:02 05/21/2005/23/2024 BLOOD CULTU RE ( AGE => 9 YRS) blood culture ( age => 9 yrs) Blood Cultu re ( Age => 9 Yrs) NO GROWT H 48 HOURS Not Available [address] [place], [address] 05/23/2024 14:36:46 05/21/2005/22/2024 BLOOD CULTU RE ( AGE => 9 YRS) blood culture ( age => 9 yrs) Blood Cultu re ( Age => 9 Yrs) NO GROWT H 24 HOURS Not Available [address] [place], [address] 05/22/2024 14:37:57 05/21/2005/23/2024 URINE CULTU RE urine culture Urine Cultu re ACTIO N ID AND SUSCE PTIBI LITY TO FOLLO W APPEA LORRI Gram Negat tami [place] APPEA LORRI Gram Negat tami [place] COLON Y COUNT Not Available [address] [place], [address] 05/23/2024 07:56:22 05/21/2005/23/2024 URINE CULTU RE urine [...] zobac sargent S <=4 F Not Available [address] [place], [address] 05/23/2024 07:56:22 05/21/2005/21/2024 MICRO SCOPI C FINDI NGS WBC Negati ve hpf 0-5 Not Available [address] [place], [address] 05/21/2024 12:34:54 05/21/2005/21/2024 MICRO SCOPI C FINDI NGS RBC Negati ve hpf 0-2 Not Available [address] [facility] [place], [address] 05/21/2024 12:34:54 05/21/2005/21/2024 MICRO SCOPI C FINDI NGS epithelial cells Many hpf negati ve Not Available [address] [place], [address] 05/21/2024 12:34:54 05/21/2005/21/2024 MICRO SCOPI C FINDI NGS bacteria Few hpf negati ve Not Available [address] [facility] [place], [address] 05/21/2024 12:34:54 05/21/2005/21/2024 MICRO SCOPI C FINDI NGS crystals Negati ve hpf negati ve Not Available [address] [place], [address] 05/21/2024 12:34:54 05/21/2005/21/2024 MICRO SCOPI C FINDI NGS mucus Modera te negati ve Not Available [address] [place], [address] 05/21/2024 12:34:54 05/21/2005/21/2024 MICRO SCOPI C FINDI NGS casts 0-2 Hyalin e lpf negati ve Not Available [address] [facility] [place], [address] 05/21/2024 12:34:54 05/21/2005/21/2024 MICRO SCOPI C FINDI NGS C S indicated? No Not Available [address] [facility] [place], [address] 05/21/2024 12:34:54 05/21/2005/21/2024 URINA LYSIS color Yellow yellow Not Available Sundar gore [address] [place], [address] 05/21/2024 12:34:53 05/21/2005/21/2024 URINA LYSIS clarity Sl Cloudy clear Not Available Gurdeep graf [address] [facility] [place], [address] 05/21/2024 12:34:53 05/21/2005/21/2024 URINA LYSIS specific gravity >= 1.030 1.005- 1.025 high Not Available [address] [facility] [place], [address] 05/21/2024 12:34:53 05/21/2005/21/2024 URINA LYSIS pH 5.5 5-8 normal Not Available Sundar gore [address] [facility] [place], [address] 05/21/2024 12:34:53 05/21/2005/21/2024 URINA LYSIS leukocyte esterase Negati ve negati ve Not Available [address] [place], [address] 05/21/2024 12:34:53 05/21/2005/21/2024 URINA LYSIS nitrite Negati ve negati ve Not Available [address] [place], [address] 05/21/2024 12:34:53 05/21/2005/21/2024 URINA LYSIS protein 30 mg/dL neg-tr cheryl abnormal Not Available [address] [place], [address] 05/21/2024 12:34:53 05/21/2005/21/2024 URINA LYSIS glucose Negati ve mg/dL negati ve Not Available [address] [place], [address] 05/21/2024 12:34:53 05/21/2005/21/2024 URINA LYSIS ketones 80 mg/dL negati ve abnormal Not Available [address] [place], [address] 05/21/2024 12:34:53 05/21/2005/21/2024 URINA LYSIS urobilinogen 0.2 mg/dL up to 0.2 Not Available [address] [place], [address] 05/21/2024 12:34:53 05/21/2005/21/2024 URINA LYSIS bilirubin Small negati ve abnormal Not Available [address] [place], [address] 05/21/2024 12:34:53 05/21/2005/21/2024 URINA LYSIS blood Negati ve negati ve Not Available [address] [place], [address] 05/21/2024 12:34:53 05/21/2005/21/2024 URINA LYSIS color Yellow yellow Not Available Sundar gore [address] [place], [address] 05/21/2024 12:32:52 05/21/2005/21/2024 URINA LYSIS clarity Sl Cloudy clear Not Available Gurdeep graf [address] [place], [address] 05/21/2024 12:32:52 05/21/2005/21/2024 URINA LYSIS specific gravity >= 1.030 1.005- 1.025 high Not Available [address] [place], [address] 05/21/2024 12:32:52 05/21/2005/21/2024 URINA LYSIS pH 5.5 5-8 normal Not Available Sundar gore [address] [place], [address] 05/21/2024 12:32:52 05/21/2005/21/2024 URINA LYSIS leukocyte esterase Negati ve negati ve Not Available [address] [place], [address] 05/21/2024 12:32:52 05/21/2005/21/2024 URINA LYSIS nitrite Negati ve negati ve Not Available [address] [place], [address] 05/21/2024 12:32:52 05/21/2005/21/2024 URINA LYSIS protein 30 mg/dL neg-tr cheryl abnormal Not Available [address] [place], [address] 05/21/2024 12:32:52 05/21/2005/21/2024 URINA LYSIS glucose Negati ve mg/dL negati ve Not Available [address] [place], [address] 05/21/2024 12:32:52 05/21/2005/21/2024 URINA LYSIS ketones 80 mg/dL negati ve abnormal Not Available [address] [place], [address] 05/21/2024 12:32:52 05/21/2005/21/2024 URINA LYSIS urobilinogen 0.2 mg/dL up to 0.2 Not Available [address] [place], [address] 05/21/2024 12:32:52 05/21/2005/21/2024 URINA LYSIS bilirubin Small negati ve abnormal Not Available [address] [place], [address] 05/21/2024 12:32:52 05/21/20 24 05/21/2024 URINA LYSIS blood Negati ve negati ve Not Available [address] [place], [address] 05/21/2024 12:32:52 05/21/20 24 05/22/2024 URINE CULTU RE urine culture Urine Cultu re ACTIO N ID AND SUSCE PTIBI LITY TO FOLLO W APPEA LORRI Gram Negat tami [place] COLON Y COUNT Not Available [address] [facility] [place], [address] 05/22/2024 12:10:19 05/21/20 24 05/22/2024 URINE CULTU RE urine culture colon ies/m L 50,00 0 - 100,0 00 Day 1 Resul t ISOLA ALEXANDRA BELOW O:PRO SPE (ORGA NISM ID: 1.1) - PROTE US SPECI ES Urine Cultu re (ORGA NISM ID: 1.1) - COLON Y COUNT (ORGA NISM ID: 1.1) - 50,00 0 - 100,0 00 Not Available [address] [facility] [place], [address] 05/22/2024 12:10:19 08/10/1908/10/2024 LACTA TE lactate 1.1 mmol/ L 0.6-1. 4 normal Not Available [address] [place], [address] 08/10/2024 21:56:57 08/10/19 25 08/10/2024 TROPO SAMIR I troponin [...] Bioti n (Nida min B7). Not Available [address] [place], [address] 08/10/2024 21:06:51 08/10/1908/10/2024 TROPO SAMIR I troponin I 12 [...] Bioti n (Nida min B7). Not Available [address] [facility] [place], [address] 08/10/2024 18:24:39 08/10/19 25 08/13/2024 URINE CULTU RE urine culture Urine Cultu re ACTIO N ID AND SUSCE PTIBI LITY TO FOLLO W ACTIO N SUSCE PTIBI LITY TO FOLLO W APPEA LORRI Gram Negat tami [place] APPEA LORRI Gram Negat tami [place] APPEA LORRI Gram Negat tami [place] COLON Y COUNT Not Available [address] [place], [address] 08/13/2024 08:45:57 08/10/1908/13/2024 URINE CULTU RE urine culture colon ies/m L >100, 000 COLON Y COUNT >100, 000 COLON Y COUNT >100, 000 Day 1 Resul t ISOLA ALEXANDRA BELOW Day 2 Resul t ISOLA ALEXANDRA BELOW Day 3 Resul t ISOLA ALEXANDRA BELOW O:PSE AER (ORGA NISM ID: 1.1) - Pseud omona s aerug inosa Urine Cultu re (ORGA NISM ID: 1.1) - COLON Y COUNT (ORGA NISM ID: 1.1) - >100, 000 ORGAN ISM ID: [id number] ANTIB IOTIC INTER PRETA TION NEELIMA STATU S Cefta zidim e S 4 F Cipro floxa phyllis S <=0.2 5 F Genta micin S <=1 F Imipe nem R >=16 F Tobra mycin S <=1 F Piper acill in/Ta zobac sargent S 8 F Not Available [address] [place], [address] 08/13/2024 08:45:57 08/10/19 25 08/10/2024 MICRO SCOPI C FINDI NGS WBC >50 hpf 0-5 abnormal WBC's obscu re micro scopi c exam. Not Available [address] [place], [address] 08/10/2024 17:50:37 08/10/19 25 08/10/2024 MICRO SCOPI C FINDI NGS RBC TNP hpf 0-2 Not Available [address] [place], [address] 08/10/2024 17:50:37 08/10/19 25 08/10/2024 MICRO SCOPI C FINDI NGS epithelial cells TNP hpf negati ve Not Available [address] [place], [address] 08/10/2024 17:50:37 08/10/19 25 08/10/2024 MICRO SCOPI C FINDI NGS bacteria TNP hpf negati ve Not Available [address] [place], [address] 08/10/2024 17:50:37 08/10/19 25 08/10/2024 MICRO SCOPI C FINDI NGS crystals TNP hpf negati ve Not Available [address] [place], [address] 08/10/2024 17:50:37 08/10/19 25 08/10/2024 MICRO SCOPI C FINDI NGS mucus TNP negati ve Not Available [address] [place], [address] 08/10/2024 17:50:37 08/10/19 25 08/10/2024 MICRO SCOPI C FINDI NGS casts TNP lpf negati ve Not Available [address] [place], [address] 08/10/2024 17:50:37 08/10/19 25 08/10/2024 MICRO SCOPI C FINDI NGS C S indicated? Yes Not Available [address] [place], [address] 08/10/2024 17:50:37 08/10/19 25 08/10/2024 URINA LYSIS color Yellow yellow Not Available Sundar gore [address] [place], [address] 08/10/2024 17:50:37 08/10/19 25 08/10/2024 URINA LYSIS clarity Cloudy clear Not Available Sundar gore [address] [place], [address] 08/10/2024 17:50:37 08/10/19 25 08/10/2024 URINA LYSIS specific gravity 1.025 1.005- 1.025 normal Not Available [address] [place], [address] 08/10/2024 17:50:37 08/10/19 25 08/10/2024 URINA LYSIS pH 7.0 5-8 normal Not Available Sundar gore [address] [place], [address] 08/10/2024 17:50:37 08/10/19 25 08/10/2024 URINA LYSIS leukocyte esterase Modera te negati ve abnormal Not Available [address] [place], [address] 08/10/2024 17:50:37 08/10/19 25 08/10/2024 URINA LYSIS nitrite Positi ve negati ve abnormal Not Available [address] [place], [address] 08/10/2024 17:50:37 08/10/19 25 08/10/2024 URINA LYSIS protein >=300 mg/dL neg-tr cheryl abnormal Not Available [address] [place], [address] 08/10/2024 17:50:37 08/10/19 25 08/10/2024 URINA LYSIS glucose Negati ve mg/dL negati ve Not Available [address] [place], [address] 08/10/2024 17:50:37 08/10/19 25 08/10/2024 URINA LYSIS ketones 15 mg/dL negati ve abnormal Not Available [address] [place], [address] 08/10/2024 17:50:37 08/10/19 25 08/10/2024 URINA LYSIS urobilinogen 0.2 mg/dL up to 0.2 Not Available [address] [place], [address] 08/10/2024 17:50:37 08/10/19 25 08/10/2024 URINA LYSIS bilirubin Negati ve negati ve Not Available [address] [place], [address] 08/10/2024 17:50:37 08/10/19 25 08/10/2024 URINA LYSIS blood Modera te negati ve abnormal Not Available [address] [place], [address] 08/10/2024 17:50:37 08/10/19 25 08/10/2024 URINA LYSIS color Yellow yellow Not Available Sundar gore [address] [place], [address] 08/10/2024 17:44:38 08/10/19 25 08/10/2024 URINA LYSIS clarity Cloudy clear Not Available Sundar gore [address] [place], [address] 08/10/2024 17:44:38 08/10/19 25 08/10/2024 URINA LYSIS specific gravity 1.025 1.005- 1.025 normal Not Available [address] [place], [address] 08/10/2024 17:44:38 08/10/19 25 08/10/2024 URINA LYSIS pH 7.0 5-8 normal Not Available Sundar gore [address] [place], [address] 08/10/2024 17:44:38 08/10/19 25 08/10/2024 URINA LYSIS leukocyte esterase Modera te negati ve abnormal Not Available [address] [place], [address] 08/10/2024 17:44:38 08/10/19 25 08/10/2024 URINA LYSIS nitrite Positi ve negati ve abnormal Not Available [address] [place], [id number] 08/10/2024 17:44:38 08/10/19 25 08/10/2024 URINA LYSIS protein >=300 mg/dL neg-tr cheryl abnormal Not Available [address] [place], [id number] 08/10/2024 17:44:38 08/10/19 25 08/10/2024 URINA LYSIS glucose Negati ve mg/dL negati ve Not Available [address] [place], [address] 08/10/2024 17:44:38 08/10/19 25 08/10/2024 URINA LYSIS ketones 15 mg/dL negati ve abnormal Not Available [address] [place], [address] 08/10/2024 17:44:38 08/10/19 25 08/10/2024 URINA LYSIS urobilinogen 0.2 mg/dL up to 0.2 Not Available [address] [place], [id number] 08/10/2024 17:44:38 08/10/19 25 08/10/2024 URINA LYSIS bilirubin Negati ve negati ve Not Available [address] [place], [id number] 08/10/2024 17:44:38 08/10/19 25 08/10/2024 URINA LYSIS blood Modera te negati ve abnormal Not Available [address] [place], [address] 08/10/2024 17:44:38 08/10/19 25 08/12/2024 URINE CULTU RE urine culture Urine Cultu re ACTIO N ID AND SUSCE PTIBI LITY TO FOLLO W ACTIO N SUSCE PTIBI LITY TO FOLLO W APPEA LORRI Gram Negat tami [place] APPEA LORRI Gram Negat tami [place] COLON Y COUNT Not Available [address] [place], [address] 08/12/2024 08:04:45 08/10/19 25 08/12/2024 URINE CULTU RE urine culture colon ies/m L >100, 000 COLON Y COUNT >100, 000 Day 1 Resul t ISOLA ALEXANDRA BELOW Day 2 Resul t ISOLA ALEXANDRA BELOW O:PSE AER (ORGA NISM ID: [id number]) - Pseud omona s aerug inosa Urine Cultu re (ORGA NISM ID: [id number]) - COLON Y COUNT (ORGA NISM ID: [id number]) - >100, 000 Not Available [address] [place], [address] 08/12/2024 08:04:45 08/10/19 25 08/11/2024 URINE CULTU RE urine culture Urine Cultu re ACTIO N ID AND SUSCE PTIBI LITY TO FOLLO W APPEA LORRI Gram Negat tami [place] COLON Y COUNT Not Available [address] [place], [address] 08/11/2024 11:50:55 08/10/19 25 08/11/2024 URINE CULTU RE urine culture colon ies/m L >100, 000 Day 1 Resul t ISOLA ALEXANDRA BELOW O:PSE SPE (ORGA NISM ID: 1.1) - Pseud omona s speci es Urine Cultu re (ORGA NISM ID: 1.1) - COLON Y COUNT (ORGA NISM ID: 1.1) - >100, 000 Not Available [address] [place], [address] 08/11/2024 11:50:55 08/10/19 25 08/10/2024 MICRO SCOPI C FINDI NGS C S indicated? Yes Not Available [address] [place], [address] 08/10/2024 17:45:37 08/10/19 25 08/10/2024 URINA LYSIS color Yellow yellow Not Available Sundar [address] [place], [address] 08/10/2024 17:45:36 08/10/19 25 08/10/2024 URINA LYSIS clarity Cloudy clear Not Available Sundar gore [address] [place], [address] 08/10/2024 17:45:36 08/10/19 25 08/10/2024 URINA LYSIS specific gravity 1.025 1.005- 1.025 normal Not Available [address] [place], [address] 08/10/2024 17:45:36 08/10/19 25 08/10/2024 URINA LYSIS pH 7.0 5-8 normal Not Available Sundar gore [address] [place], [address] 08/10/2024 17:45:36 08/10/19 25 08/10/2024 URINA LYSIS leukocyte esterase Modera te negati ve abnormal Not Available [address] [place], [address] 08/10/2024 17:45:36 08/10/19 25 08/10/2024 URINA LYSIS nitrite Positi ve negati ve abnormal Not Available [address] [place], [address] 08/10/2024 17:45:36 08/10/19 25 08/10/2024 URINA LYSIS protein >=300 mg/dL neg-tr cheryl abnormal Not Available [address] [place], [address] 08/10/2024 17:45:36 08/10/19 25 08/10/2024 URINA LYSIS glucose Negati ve mg/dL negati ve Not Available [address] [place], [address] 08/10/2024 17:45:36 08/10/19 25 08/10/2024 URINA LYSIS ketones 15 mg/dL negati ve abnormal Not Available [address] [place], [address] 08/10/2024 17:45:36 08/10/19 25 08/10/2024 URINA LYSIS urobilinogen 0.2 mg/dL up to 0.2 Not Available [address] [place], [address] 08/10/2024 17:45:36 08/10/19 25 08/10/2024 URINA LYSIS bilirubin Negati ve negati ve Not Available [address] [place], [address] 08/10/2024 17:45:36 08/10/19 25 08/10/2024 URINA LYSIS blood Modera te negati ve abnormal Not Available [address] [place], [address] 08/10/2024 17:45:36 08/10/19 25 08/10/2024 COMPL ETE BLOOD COUNT W/DIF F WBC 19.52 10_3/ uL 4.4-10 .8 high Not Available [address] [place], [address] 08/10/2024 17:24:32 08/10/19 25 08/10/2024 COMPL ETE BLOOD COUNT W/DIF F RBC 4.93 10_6/ uL 4.36-5 .78 normal Not Available [address] [place], [address] 08/10/2024 17:24:32 08/10/19 25 08/10/2024 COMPL ETE BLOOD COUNT W/DIF F HGB 14.2 g/dL 13.5-1 7.5 normal Not Available [address] [place], [address] 08/10/2024 17:24:32 08/10/19 25 08/10/2024 COMPL ETE BLOOD COUNT W/DIF F HCT 43.2 % 40.0-5 0.0 normal Not Available [address] [place], [address] 08/10/2024 17:24:32 08/10/19 25 08/10/2024 COMPL ETE BLOOD COUNT W/DIF F MCV 88 fL 80-95 normal Not Available Sundar gore [address] [place], [address] 08/10/2024 17:24:32 08/10/19 25 08/10/2024 COMPL ETE BLOOD COUNT W/DIF F MCH 28.8 pg 27.0-3 3.0 normal Not Available [address] [place], [address] 08/10/2024 17:24:32 08/10/19 25 08/10/2024 COMPL ETE BLOOD COUNT W/DIF F MCHC 32.9 % 32.0-3 6.0 normal Not Available [address] [place], [address] 08/10/2024 17:24:32 08/10/19 25 08/10/2024 COMPL ETE BLOOD COUNT W/DIF F RDW 13.5 % 11.8-1 4.1 normal Not Available [address] [place], [address] 08/10/2024 17:24:32 08/10/19 25 08/10/2024 COMPL ETE BLOOD COUNT W/DIF F platelet count 170 10_3/ uL 130-40 0 normal Not Available [address] [place], [address] 08/10/2024 17:24:32 08/10/19 25 08/10/2024 COMPL ETE BLOOD COUNT W/DIF F MPV 11.2 fL 8.0-11 .0 high Not Available [address] [place], [address] 08/10/2024 17:24:32 08/10/19 25 08/10/2024 COMPL ETE BLOOD COUNT W/DIF F neutrophils % 92.0 % --- 08/10 1720 --- COR RECTE D REPOR T-N euts % previ ously repor leidy as: 56.6 % Corre cted Resul ts keenan d to and read back from [facility] 08/10 at 1720 by LAB.J ENK Not Available [address] [place], [address] 08/10/2024 17:24:32 08/10/19 25 08/10/2024 COMPL ETE BLOOD COUNT W/DIF F bands % 1 % Not Available Sundar gore [address] [place], [address] 08/10/2024 17:24:32 08/10/19 25 08/10/2024 COMPL ETE BLOOD COUNT W/DIF F lymphocytes % 1.0 % --- 08/10 --- COR RECTE D REPOR T-L ymphs % previ ously repor leidy as: 1.2 % Corre cted Resul ts keenan d to and read back from [facility] 08/10 at 1720 by LAB.J ENK Not Available [address] [place], [address] 08/10/2024 17:24:32 08/10/1908/10/2024 COMPL ETE BLOOD COUNT W/DIF F monocytes % 6.0 % --- 08/10 --- COR RECTE D REPOR T-M onos % previ ously repor leidy as: 3.6 % Corre cted Resul ts keenan d to and read back from [facility] 08/10 at 1720 by LAB.J ENK Not Available [address] [place], [address] 08/10/2024 17:24:32 08/10/1908/10/2024 COMPL ETE BLOOD COUNT W/DIF F eosinophils % 0.0 % --- 08/10 --- COR RECTE D REPOR T-E os % previ ously repor leidy as: 37.7 % Corre cted Resul ts keenan d to and read back from [facility] 08/10 at 1720 by LAB.J ENK Not Available [address] [place], [address] 08/10/2024 17:24:32 08/10/1908/10/2024 COMPL ETE BLOOD COUNT W/DIF F basophils % 0.0 % --- 08/10 --- COR RECTE D REPOR T-B asos % previ ously repor leidy as: 0.3 % Corre cted Resul ts keenan d to and read back from [facility] 08/10 at 1720 by LAB.J ENK Not Available [address] [place], [address] 08/10/2024 17:24:32 08/10/19 25 08/10/2024 COMPL ETE BLOOD COUNT W/DIF F immature grans % 0.0 % --- 08/10 --- COR RECTE D REPOR T-I mmatu re Grans % previ ously repor leidy as: 0.6 % Corre cted Resul ts keenan d to and read back from [facility] 08/10 at 1720 by LAB.J ENK Not Available [address] [place], [address] 08/10/2024 17:24:32 08/10/19 25 08/10/2024 COMPL ETE BLOOD COUNT W/DIF F nucleated RBC 0.0 % 0.0-0. 3 normal Not Available [address] [place], [address] 08/10/2024 17:24:32 08/10/19 25 08/10/2024 COMPL ETE BLOOD COUNT W/DIF F absolute neutrophil count 18.15 10_3/ uL 1.2-6. 7 high --- 08/10 --- COR RECTE D REPOR T-A NC previ ously repor leidy as: 11.05 H 10 3/uL Corre cted Resul ts keenan d to and read back from [facility] 08/10 at 1720 by LAB.J ENK Not Available [address] [place], [address] 08/10/2024 17:24:32 08/10/19 25 08/10/2024 COMPL ETE BLOOD COUNT W/DIF F absolute lymphocyte count 0.20 10_3/ uL 1.2-3. 4 low --- 08/10 --- COR RECTE D REPOR T-A LYC previ ously repor leidy as: 0.23 L 10 3/uL Corre cted Resul ts keenan d to and read back from [facility] 08/10 at 1720 by LAB.J ENK Not Available [address] [place], [address] 08/10/2024 17:24:32 08/10/19 25 08/10/2024 COMPL ETE BLOOD COUNT W/DIF F absolute monocyte count 1.17 10_3/ uL 0.1-0. 8 high --- 08/10 --- COR RECTE D REPOR T-A MC previ ously repor leidy as: 0.70 10 3/uL Corre cted Resul ts keenan d to and read back from [facility] 08/10 at 1720 by LAB.J ENK Not Available [address] [place], [address] 08/10/2024 17:24:32 08/10/19 25 08/10/2024 COMPL ETE BLOOD COUNT W/DIF F absolute eosinophil count 0.00 10_3/ uL 0.0-0. 7 normal --- 08/10 --- COR RECTE D REPOR T-A EC previ ously repor leidy as: 7.36 H 10 3/uL Corre cted Resul ts keenan d to and read back from [facility] 08/10 at 1720 by LAB.J ENK Not Available [address] [place], [address] 08/10/2024 17:24:32 08/10/1908/10/2024 COMPL ETE BLOOD COUNT W/DIF F absolute basophil count 0.00 10_3/ uL 0.0-0. 2 normal --- 08/10 --- COR RECTE D REPOR T-A BC previ ously repor leidy as: 0.06 10 3/uL Corre cted Resul ts keenan d to and read back from [facility] 08/10 at 1720 by LAB.J ENK Not Available [address] [place], [address] 08/10/2024 17:24:32 08/10/19 25 08/10/2024 COMPL ETE BLOOD COUNT W/DIF F diff comment Manual Differ ential Not Available [address] [place], [address] 08/10/2024 17:24:32 08/10/1908/10/2024 COMPL ETE BLOOD COUNT W/DIF F RBC morphology Normal Not Available [address] [place], [address] 08/10/2024 17:24:32 08/10/1908/16/2024 BLOOD CULTU RE ( AGE => 9 YRS) blood culture ( age => 9 yrs) Blood Cultu re ( Age => 9 Yrs) 08/11 Aerob ic bottl e posit tami; gram stain shows GRAM NEGAT TAMI RODS. Gram stain resul ts keenan d to and read back from [facility] RE (ICU) at 1149 by LAB.L EEL. 08/13 REFER TO BC13 FOR DIMITRY SALVADORI SOPHIEY RESUL TS. 08/16 Anaer obic bottl e remai rosmery no growt h in 5 days. O:PSE AER (ORGA NISM ID: 1.1) - Pseud omona s aerug inosa Not Available [address] [place], [address] 08/16/2024 09:19:21 08/10/1908/13/2024 BLOOD CULTU RE ( AGE => 9 YRS) blood culture ( age => 9 yrs) Blood Cultu re ( Age => 9 Yrs) 08/11 Aerob ic bottl e posit tami; gram stain shows GRAM NEGAT TAMI RODS. Gram stain resul ts keenan d to and read back from [facility] RE (ICU) at 1149 by LAB.L EEL. 08/11 Anaer obic bottl e posit tami; gram stain shows GRAM NEGAT TAMI RODS. O:PSE AER (ORGA NISM ID: 1.1) - Pseud omona s aerug inosa ORGAN ISM ID: 1.1 ANTIB IOTIC INTER PRETA TION NEELIMA STATU S Cefta zidim e S 4 F Cipro floxa phyllis S <=0.2 5 F Genta micin S 2 F Imipe nem S 1 F Tobra mycin S <=1 F Piper acill in/Ta zobac sargent S 8 F Not Available [address] [place], [address] 08/13/2024 09:11:01 08/10/1908/10/2024 PROCA LCITO SAMIR procalcitoni n 3.57 NG/mL [...] se, among other cause s. Not Available [facility] [address] [place], [address] 08/10/2024 17:42:37 08/10/1908/10/2024 TROPO SAMIR I troponin I 14 NG/L <or=76 An eleva elidy/a bnorm al tropo samir value above 51ng/ [...] Bioti n (Nida min B7). Not Available [address] [place], [address] 08/10/2024 17:26:33 08/10/19 25 08/10/2024 MAGNE SIUM magnesium 1.2 mg/dL 1.8-2. 4 low Not Available [address] [facility] [place], [address] 08/10/2024 17:26:33 08/10/19 25 08/10/2024 COMPR EHENS TAMI METAB OLIC PANEL calcium 8.6 mg/dL 8.5-10 .1 normal Not Available [address] [facility] [place], [address] 08/10/2024 17:26:32 08/10/19 25 08/10/2024 COMPR EHENS TAMI METAB OLIC PANEL glucose 127 mg/dL 74-106 high Not Available Sundar gore [address] [facility] [place], [address] 08/10/2024 17:26:32 08/10/19 25 08/10/2024 COMPR EHENS TAMI METAB OLIC PANEL BUN 15 mg/dL 7-18 normal Not Available Sundar gore [address] [facility] [place], [address] 08/10/2024 17:26:32 08/10/19 25 08/10/2024 COMPR EHENS TAMI METAB OLIC PANEL creatinine 1.3 mg/dL 0.70-1 .30 normal Not Available [address] [facility] [place], [address] 08/10/2024 17:26:32 08/10/19 25 08/10/2024 COMPR EHENS [...] young er-ag ed adult s. Not Available [address] [place], [address] 08/10/2024 17:26:32 08/10/19 25 08/10/2024 COMPR EHENS TAMI METAB OLIC PANEL total protein 6.9 g/dL 6.4-8. 2 normal Not Available [address] [place], [address] 08/10/2024 17:26:32 08/10/19 25 08/10/2024 COMPR EHENS TAMI METAB OLIC PANEL albumin 3.1 g/dL 3.4-5. 0 low Not Available [address] [place], [address] 08/10/2024 17:26:32 08/10/19 25 08/10/2024 COMPR EHENS TAMI METAB OLIC PANEL bilirubin, total 0.54 mg/dL 0.2-1. 0 normal Not Available [address] [place], [address] 08/10/2024 17:26:32 08/10/19 25 08/10/2024 COMPR EHENS TAMI METAB OLIC PANEL alk phos 113 U/L 46-116 normal Not Available [address] [place], [address] 08/10/2024 17:26:32 08/10/19 25 08/10/2024 COMPR EHENS TAMI METAB OLIC PANEL sodium 138 mmol/ L 136-14 5 normal Not Available [address] [place], [address] 08/10/2024 17:26:32 08/10/19 25 08/10/2024 COMPR EHENS TAMI METAB OLIC PANEL potassium 3.8 mmol/ L 3.5-5. 1 normal Not Available [address] [place], [address] 08/10/2024 17:26:32 08/10/19 25 08/10/2024 COMPR EHENS TAMI METAB OLIC PANEL chloride 101 mmol/ L 98-107 normal Not Available [address] [place], [address] 08/10/2024 17:26:32 08/10/19 25 08/10/2024 COMPR EHENS TAMI METAB OLIC PANEL CO2 28.8 mmol/ L 21.0-3 2.0 normal Not Available [address] [place], [address] 08/10/2024 17:26:32 08/10/19 25 08/10/2024 COMPR EHENS TAMI METAB OLIC PANEL anion gap 8.2 mmol/ L 3-11 normal Not Available [address] [place], [address] 08/10/2024 17:26:32 08/10/19 25 08/10/2024 COMPR EHENS TAMI METAB OLIC PANEL AST 13 U/L 15-37 low Not Available Sundar [address] [place], [address] 08/10/2024 17:26:32 08/10/19 25 08/10/2024 COMPR EHENS TAMI METAB OLIC PANEL ALT 19 U/L 16-63 normal Not Available Sundar gore [address] [place], [address] 08/10/2024 17:26:32 08/10/19 25 08/10/2024 COMPL ETE BLOOD COUNT W/DIF F WBC 19.52 10_3/ uL 4.4-10 .8 high Not Available [address] [place], [address] 08/10/2024 17:12:31 08/10/19 25 08/10/2024 COMPL ETE BLOOD COUNT W/DIF F RBC 4.93 10_6/ uL 4.36-5 .78 normal Not Available [address] [place], [address] 08/10/2024 17:12:31 08/10/19 25 08/10/2024 COMPL ETE BLOOD COUNT W/DIF F HGB 14.2 g/dL 13.5-1 7.5 normal Not Available [address] [place], [address] 08/10/2024 17:12:31 08/10/19 25 08/10/2024 COMPL ETE BLOOD COUNT W/DIF F HCT 43.2 % 40.0-5 0.0 normal Not Available [address] [place], [address] 08/10/2024 17:12:31 08/10/19 25 08/10/2024 COMPL ETE BLOOD COUNT W/DIF F MCV 88 fL 80-95 normal Not Available [address] [place], [address] 08/10/2024 17:12:31 08/10/19 25 08/10/2024 COMPL ETE BLOOD COUNT W/DIF F MCH 28.8 pg 27.0-3 3.0 normal Not Available [address] [place], [address] 08/10/2024 17:12:31 08/10/19 25 08/10/2024 COMPL ETE BLOOD COUNT W/DIF F MCHC 32.9 % 32.0-3 6.0 normal Not Available [address] [place], [address] 08/10/2024 17:12:31 08/10/19 25 08/10/2024 COMPL ETE BLOOD COUNT W/DIF F RDW 13.5 % 11.8-1 4.1 normal Not Available [address] [place], [address] 08/10/2024 17:12:31 08/10/19 25 08/10/2024 COMPL ETE BLOOD COUNT W/DIF F platelet count 170 10_3/ uL 130-40 0 normal Not Available [address] [place], [address] 08/10/2024 17:12:31 08/10/19 25 08/10/2024 COMPL ETE BLOOD COUNT W/DIF F MPV 11.2 fL 8.0-11 .0 high Not Available [address] [place], [address] 08/10/2024 17:12:31 08/10/1908/10/2024 COMPL ETE BLOOD COUNT W/DIF F neutrophils % 56.6 % Not Available [address] [place], [address] 08/10/2024 17:12:31 08/10/1908/10/2024 COMPL ETE BLOOD COUNT W/DIF F lymphocytes % 1.2 % Not Available [address] [place], [address] 08/10/2024 17:12:31 08/10/1908/10/2024 COMPL ETE BLOOD COUNT W/DIF F monocytes % 3.6 % Not Available [address] [place], [address] 08/10/2024 17:12:31 08/10/1908/10/2024 COMPL ETE BLOOD COUNT W/DIF F eosinophils % 37.7 % Not Available [address] [place] [place], [address] 08/10/2024 17:12:31 08/10/1908/10/2024 COMPL ETE BLOOD COUNT W/DIF F basophils % 0.3 % Not Available [address] [place], [address] 08/10/2024 17:12:31 08/10/1908/10/2024 COMPL ETE BLOOD COUNT W/DIF F immature grans % 0.6 % Not Available [address] [place], [address] 08/10/2024 17:12:31 08/10/1908/10/2024 COMPL ETE BLOOD COUNT W/DIF F nucleated RBC 0.0 % 0.0-0. 3 normal Not Available [address] [place], [address] 08/10/2024 17:12:31 08/10/19 25 08/10/2024 COMPL ETE BLOOD COUNT W/DIF F absolute neutrophil count 11.05 10_3/ uL 1.2-6. 7 high Not Available [address] [place], [address] 08/10/2024 17:12:31 08/10/19 25 08/10/2024 COMPL ETE BLOOD COUNT W/DIF F absolute lymphocyte count 0.23 10_3/ uL 1.2-3. 4 low Not Available [address] [place], [address] 08/10/2024 17:12:31 08/10/19 25 08/10/2024 COMPL ETE BLOOD COUNT W/DIF F absolute monocyte count 0.70 10_3/ uL 0.1-0. 8 normal Not Available [address] [place], [address] 08/10/2024 17:12:31 08/10/19 25 08/10/2024 COMPL ETE BLOOD COUNT W/DIF F absolute eosinophil count 7.36 10_3/ uL 0.0-0. 7 high Not Available [address] [place], [address] 08/10/2024 17:12:31 08/10/1908/10/2024 COMPL ETE BLOOD COUNT W/DIF F absolute basophil count 0.06 10_3/ uL 0.0-0. 2 normal Not Available [address] [place], [address] 08/10/2024 17:12:31 08/10/1908/10/2024 LACTA TE lactate 2.4 mmol/ L 0.6-1. 4 panic high Criti kristine value repor leidy to and readb ack from Carson vasquez E[facility] at 1703 08/10 by LAB.K EVELIO Not Available [address] [place], [address] 08/10/2024 17:06:28 08/10/1908/10/2024 VENOU S BLOOD GAS pH (venous) 7.38 7.31-7 .41 normal Not Available [address] [place], [address] 08/10/2024 17:06:27 08/10/19 25 08/10/2024 VENOU S BLOOD GAS pCO2 (venous) 48 mmHg 41-51 normal Not Available [address] [place], [address] 08/10/2024 17:06:27 08/10/19 25 08/10/2024 VENOU S BLOOD GAS pO2 (venous) 39 mmHg Not Available [address] [place], [address] 08/10/2024 17:06:27 08/10/19 25 08/10/2024 VENOU S BLOOD GAS TCO2 (venous) 25 mmol/ L 24-29 normal Not Available [address] [place], [address] 08/10/2024 17:06:27 08/10/19 25 08/10/2024 VENOU S BLOOD GAS HCO3 (venous) 28 mmol/ L 23-28 normal Not Available [address] [place], [address] 08/10/2024 17:06:27 08/10/19 25 08/10/2024 VENOU S BLOOD GAS BE (venous) 3 mmol/ L -2-3 normal Not Available [address] [place], [address] 08/10/2024 17:06:27 08/10/19 25 08/10/2024 VENOU S BLOOD GAS O2 sat (venous) 70 % Not Available [address] [place], [address] 08/10/2024 17:06:27 08/10/19 25 08/13/2024 BLOOD CULTU RE ( AGE => 9 YRS) blood culture ( age => 9 yrs) Blood Cultu re ( Age => 9 Yrs) 08/11 Aerob ic bottl e posit tami; gram stain shows GRAM NEGAT TAMI RODS. Gram stain resul ts keenan d to and read back from [facility] (ICU[facility] at 1149 by LAB.L EEL. 08/13 REFER TO 13 FOR DIMITRY CAMEJO TS. O:PSE AER (ORGA NISM ID: 1.1) - Pseud omona s aerug inosa Not Available [address] [place], [address] 08/13/2024 09:13:01 08/10/1908/13/2024 BLOOD CULTU RE ( AGE => 9 YRS) blood culture ( age => 9 yrs) Blood Cultu re ( Age => 9 Yrs) 08/11 Aerob ic bottl e posit tami; gram stain shows GRAM NEGAT TAMI RODS. Gram stain resul ts keenan d to and read back from [facility] RE (ICU) at 1149 by LAB.L EEL. 08/13 REFER TO 13 FOR DIMITRY SHELL. O:PSE AER (ORGA NISM ID: 1.1) - Pseud omona s aerug inosa Not Available [address] [place], [address] 08/13/2024 09:08:09 08/10/1908/13/2024 BLOOD CULTU RE ( AGE => 9 YRS) blood culture ( age => 9 yrs) Blood Cultu re ( Age => 9 Yrs) 08/11 Aerob ic bottl e posit tami; gram stain shows GRAM NEGAT TAMI RODS. Gram stain resul ts keenan d to and read back from [facility] RE (ICU) at 1149 by LAB.L EEL. 08/11 Anaer obic bottl e posit tami; gram stain shows GRAM NEGAT TAMI RODS. O:PSE AER (ORGA NISM ID: 1.1) - Pseud omona s aerug inosa ORGAN ISM ID: 1.1 ANTIB IOTIC INTER PRETA TION NEELIMA STATU S Cefta zidim e S 4 P Cipro floxa phyllis S <=0.2 5 P Genta micin S 2 P Imipe nem S 1 P Tobra mycin S <=1 P Piper acill in/Ta zobac sargent S 8 P Not Available [address] [place], [address] 08/13/2024 09:05:00 08/10/1908/12/2024 BLOOD CULTU RE ( AGE => 9 YRS) blood culture ( age => 9 yrs) Blood Cultu re ( Age => 9 Yrs) 08/11 Aerob ic bottl e posit tami; gram stain shows GRAM NEGAT TAMI RODS. Gram stain resul ts keenan d to and read back from [facility] RE (ICU) at 1149 by LAB.L EEL. O:PSE AER (ORGA NISM ID: 1.1) - Pseud omona s aerug inosa Not Available [address] [place], [address] 08/12/2024 08:51:50 08/10/1908/12/2024 BLOOD CULTU RE ( AGE => 9 YRS) blood culture ( age => 9 yrs) Blood Cultu re ( Age => 9 Yrs) 08/11 Aerob ic bottl e posit tami; gram stain shows GRAM NEGAT TAMI RODS. Gram stain resul ts [facility] by LAB.L EEL. 08/11 Anaer obic bottl e posit tami; gram stain shows GRAM NEGAT TAMI RODS. O:PSE AER (ORGA NISM ID: 1.1) - Pseud omona s aerug inosa Not Available [address] [place], [address] 08/12/2024 08:51:49 08/10/1908/11/2024 BLOOD CULTU RE ( AGE => 9 YRS) blood culture ( age => 9 yrs) Blood Cultu re ( Age => 9 Yrs) 08/11 Aerob ic bottl e posit tami; gram stain shows GRAM NEGAT TAMI RODS. Gram stain resul ts keenan d to and read back from KENNEDY Umanzor [facility] RE (ICU) at 1149 by LAB.L EEL. 08/11 Anaer obic bottl e posit tami; gram stain shows GRAM NEGAT TAMI RODS. O:GNR (ORGA NISM ID: 1.1) - Gram negat tami elgin Not Available [address] [place], [address] 08/11/2024 14:18:01 08/10/19 25 08/11/2024 BLOOD CULTU RE ( AGE => 9 YRS) blood culture ( age => 9 yrs) Blood Cultu re ( Age => 9 Yrs) 08/11 Aerob ic bottl e posit tami; gram stain shows GRAM NEGAT TAMI RODS. Gram stain resul ts keenan d to and read back from RN ISABELLA Umanzor [facility] RE (ICU) at 1149 by LAB.L EEL. O:GNR (ORGA NISM ID: 1.1) - Gram negat tami [place] Not Available [address] [place], [address] 08/11/2024 11:54:57 08/10/19 25 08/11/2024 BLOOD CULTU RE ( AGE => 9 YRS) blood culture ( age => 9 yrs) Blood Cultu re ( Age => 9 Yrs) 08/11 Aerob ic bottl e posit tami; gram stain shows GRAM NEGAT TAMI RODS. Gram stain resul ts keenan d to and read back from KENNEDY Umanzor [facility] RE (ICU) at 1149 by LAB.L EEL. O:GNR (ORGA NISM ID: 1.1) - Gram negat tami el[place] Not Available [address] [facility] [place], [address] 08/11/2024 11:54:56 08/10/19 25 08/10/2024 COVID /FLU/ RSV PCR source Nasoph arynx Not Available [address] [facility] [place], [address] 08/10/2024 17:31:33 08/10/19 25 08/10/2024 COVID /FLU/ RSV PCR covid-19 PCR Negati ve negati ve This test has not been FDA clear ed or appro daniel. This test has been autho rized by the FDA under an Emerg ency Use Autho rizat ion for use by autho rized labor atori es. This test has been autho rized only for detec tion of nucle ic acid from the 2018 novel coron a virus (2018 -nCoV ), [...] detec tion and/o r diagn osis of nCoV under secti on 564(b )(1) of [...] histo ry, and epide miolo gical infor matio n. Testi ng perfo rmed at [facility] (CLIA #[id number]) on the [employer] id GeneX pert. Not Available [address] [place], [address] 08/10/2024 17:31:33 08/10/19 25 08/10/2024 COVID /FLU/ RSV PCR influenza A PCR Negati ve negati ve Not Available [address] [facility] [place], [address] 08/10/2024 17:31:33 08/10/19 25 08/10/2024 COVID /FLU/ RSV PCR influenza B PCR Negati ve negati ve Not Available [address] [facility] [place], [address] 08/10/2024 17:31:33 08/10/19 25 08/10/2024 COVID /FLU/ RSV PCR RSV PCR Negati ve negati ve Not Available [address] [place], [address] 08/10/2024 17:31:33 08/11/19 25 08/11/2024 COMPL ETE BLOOD COUNT W/DIF F WBC 21.59 10_3/ uL 4.4-10 .8 high Not Available [address] [place], [address] 08/11/2024 07:06:45 08/11/19 25 08/11/2024 COMPL ETE BLOOD COUNT W/DIF F RBC 4.17 10_6/ uL 4.36-5 .78 low Not Available [address] [place], [address] 08/11/2024 07:06:45 08/11/19 25 08/11/2024 COMPL ETE BLOOD COUNT W/DIF F HGB 11.9 g/dL 13.5-1 7.5 low Not Available [address] [place], [address] 08/11/2024 07:06:45 08/11/19 25 08/11/2024 COMPL ETE BLOOD COUNT W/DIF F HCT 36.9 % 40.0-5 0.0 low Not Available [address] [place], [address] 08/11/2024 07:06:45 08/11/19 25 08/11/2024 COMPL ETE BLOOD COUNT W/DIF F MCV 89 fL 80-95 normal Not Available [address] [place], [address] 08/11/2024 07:06:45 08/11/19 25 08/11/2024 COMPL ETE BLOOD COUNT W/DIF F MCH 28.5 pg 27.0-3 3.0 normal Not Available [address] [place], [address] 08/11/2024 07:06:45 08/11/19 25 08/11/2024 COMPL ETE BLOOD COUNT W/DIF F MCHC 32.2 % 32.0-3 6.0 normal Not Available [address] [place], [address] 08/11/2024 07:06:45 08/11/19 25 08/11/2024 COMPL ETE BLOOD COUNT W/DIF F RDW 13.9 % 11.8-1 4.1 normal Not Available [address] [place], [address] 08/11/2024 07:06:45 08/11/1908/11/2024 COMPL ETE BLOOD COUNT W/DIF F platelet count 144 10_3/ uL 130-40 0 normal Not Available [address] [place], [address] 08/11/2024 07:06:45 08/11/1908/11/2024 COMPL ETE BLOOD COUNT W/DIF F MPV 10.8 fL 8.0-11 .0 normal Not Available [address] [place], [address] 08/11/2024 07:06:45 08/11/1908/11/2024 COMPL ETE BLOOD COUNT W/DIF F neutrophils % 95.1 % Not Available [address] [place], [address] 08/11/2024 07:06:45 08/11/1908/11/2024 COMPL ETE BLOOD COUNT W/DIF F lymphocytes % 2.7 % Not Available [address] [place], [address] 08/11/2024 07:06:45 08/11/1908/11/2024 COMPL ETE BLOOD COUNT W/DIF F monocytes % 1.5 % Not Available [address] [place], [address] 08/11/2024 07:06:45 08/11/1908/11/2024 COMPL ETE BLOOD COUNT W/DIF F eosinophils % 0.1 % Not Available [address] [place], [address] 08/11/2024 07:06:45 08/11/1908/11/2024 COMPL ETE BLOOD COUNT W/DIF F basophils % 0.1 % Not Available [address] [place], [address] 08/11/2024 07:06:45 08/11/1908/11/2024 COMPL ETE BLOOD COUNT W/DIF F immature grans % 0.5 % Not Available Francesca howard [address] [place], [address] 08/11/2024 07:06:45 08/11/19 25 08/11/2024 COMPL ETE BLOOD COUNT W/DIF F nucleated RBC 0.0 % 0.0-0. 3 normal Not Available [address] [place], [address] 08/11/2024 07:06:45 08/11/1908/11/2024 COMPL ETE BLOOD COUNT W/DIF F absolute neutrophil count 20.53 10_3/ uL 1.2-6. 7 high Not Available [address] [place], [address] 08/11/2024 07:06:45 08/11/19 25 08/11/2024 COMPL ETE BLOOD COUNT W/DIF F absolute lymphocyte count 0.58 10_3/ uL 1.2-3. 4 low Not Available [address] [place], [address] 08/11/2024 07:06:45 08/11/19 25 08/11/2024 COMPL ETE BLOOD COUNT W/DIF F absolute monocyte count 0.32 10_3/ uL 0.1-0. 8 normal Not Available [address] [place], [address] 08/11/2024 07:06:45 08/11/1908/11/2024 COMPL ETE BLOOD COUNT W/DIF F absolute eosinophil count 0.02 10_3/ uL 0.0-0. 7 normal Not Available [address] [place], [address] 08/11/2024 07:06:45 08/11/19 25 08/11/2024 COMPL ETE BLOOD COUNT W/DIF F absolute basophil count 0.02 10_3/ uL 0.0-0. 2 normal Not Available [address] [place], [address] 08/11/2024 07:06:45 08/11/1908/11/2024 COMPL ETE BLOOD COUNT W/DIF F diff comment Diff Review ed Not Available Gurdeep graf [address] [place], [address] 08/11/2024 07:06:45 08/11/19 25 08/11/2024 COMPL ETE BLOOD COUNT W/DIF F RBC morphology Normal Not Available [address] [place], [address] 08/11/2024 07:06:45 08/11/19 25 08/11/2024 MAGNE SIUM magnesium 2.1 mg/dL 1.8-2. 4 normal Not Available [address] [place], [address] 08/11/2024 06:44:43 08/11/19 25 08/11/2024 BASIC METAB OLIC PANEL calcium 7.6 mg/dL 8.5-10 .1 low Not Available [address] [place], [address] 08/11/2024 06:44:42 08/11/19 25 08/11/2024 BASIC METAB OLIC PANEL glucose 217 mg/dL 74-106 high Not Available Sundar [address] [facility] [place], [address] 08/11/2024 06:44:42 08/11/19 25 08/11/2024 BASIC METAB OLIC PANEL BUN 16 mg/dL 7-18 normal Not Available Sundar [address] [place], [address] 08/11/2024 06:44:42 08/11/19 25 08/11/2024 BASIC METAB OLIC PANEL creatinine 1.5 mg/dL 0.70-1 .30 high Not Available [address] [facility] [place], [address] 08/11/2024 06:44:42 08/11/19 25 08/11/2024 BASIC METAB OLIC PANEL estimated GFR 53.30 mL/min /1.73M 2 The eGFR is calcu [...] young er-ag ed adult s. Not Available [address] [place], [address] 08/11/2024 06:44:42 08/11/1908/11/2024 BASIC METAB OLIC PANEL sodium 138 mmol/ L 136-14 5 normal Not Available [address] [place], [address] 08/11/2024 06:44:42 08/11/1908/11/2024 BASIC METAB OLIC PANEL potassium 4.2 mmol/ L 3.5-5. 1 normal Not Available [address] [place], [address] 08/11/2024 06:44:42 08/11/1908/11/2024 BASIC METAB OLIC PANEL chloride 106 mmol/ L 98-107 normal Not Available [address] [place], [address] 08/11/2024 06:44:42 08/11/1908/11/2024 BASIC METAB OLIC PANEL CO2 24.5 mmol/ L 21.0-3 2.0 normal Not Available [address] [place], [address] 08/11/2024 06:44:42 08/11/1908/11/2024 BASIC METAB OLIC PANEL anion gap 7.5 mmol/ L 3-11 normal Not Available [address] [place], [address] 08/11/2024 06:44:42 08/11/1908/11/2024 LACTA TE lactate 3.4 mmol/ L 0.6-1. 4 panic high Criti kristine value repor leidy to and readb ack from ESTEFANI GILES , SHELF FILLER at 0629 08/11 by LAB.M ARC Not Available [address] [place], [address] 08/11/2024 06:33:41 08/12/19 25 08/12/2024 COMPR EHENS TAMI METAB OLIC PANEL calcium 7.7 mg/dL 8.5-10 .1 low Not Available [address] [place], [address] 08/12/2024 07:02:42 08/12/19 25 08/12/2024 COMPR EHENS TAMI METAB OLIC PANEL glucose 130 mg/dL 74-106 high Not Available Sundar gore [address] [place], [address] 08/12/2024 07:02:42 08/12/19 25 08/12/2024 COMPR EHENS TAMI METAB OLIC PANEL BUN 15 mg/dL 7-18 normal Not Available Sundar [address] [place], [address] 08/12/2024 07:02:42 08/12/19 25 08/12/2024 COMPR EHENS TAMI METAB OLIC PANEL creatinine 1.4 mg/dL 0.70-1 .30 high Not Available [address] [place], [address] 08/12/2024 07:02:42 08/12/1908/12/2024 COMPR EHENS TAMI METAB OLIC PANEL estimated GFR 57.90 mL/min /1.73M 2 The eGFR is calcu [...] young er-ag ed adult s. Not Available [address] [place], [address] 08/12/2024 07:02:42 08/12/19 25 08/12/2024 COMPR EHENS TAMI METAB OLIC PANEL total protein 5.2 g/dL 6.4-8. 2 low Not Available [address] [place], [address] 08/12/2024 07:02:42 08/12/19 25 08/12/2024 COMPR EHENS TAMI METAB OLIC PANEL albumin 2.1 g/dL 3.4-5. 0 low Not Available [address] [place], [address] 08/12/2024 07:02:42 08/12/19 25 08/12/2024 COMPR EHENS TAMI METAB OLIC PANEL bilirubin, total 0.16 mg/dL 0.2-1. 0 low Not Available [address] [place], [address] 08/12/2024 07:02:42 08/12/1908/12/2024 COMPR EHENS TAMI METAB OLIC PANEL alk phos 89 U/L 46-116 normal Not Available [address] [place], [address] 08/12/2024 07:02:42 08/12/19 25 08/12/2024 COMPR EHENS TAMI METAB OLIC PANEL sodium 143 mmol/ L 136-14 5 normal Not Available [address] [place], [address] 08/12/2024 07:02:42 08/12/1908/12/2024 COMPR EHENS TAMI METAB OLIC PANEL potassium 3.9 mmol/ L 3.5-5. 1 normal Not Available [address] [place], [address] 08/12/2024 07:02:42 08/12/19 25 08/12/2024 COMPR EHENS TAMI METAB OLIC PANEL chloride 111 mmol/ L 98-107 high Not Available [address] [place], [address] 08/12/2024 07:02:42 08/12/19 25 08/12/2024 COMPR EHENS TAMI METAB OLIC PANEL CO2 25.3 mmol/ L 21.0-3 2.0 normal Not Available [address] [place], [address] 08/12/2024 07:02:42 08/12/19 25 08/12/2024 COMPR EHENS TAMI METAB OLIC PANEL anion gap 6.7 mmol/ L 3-11 normal Not Available [address] [place], [address] 08/12/2024 07:02:42 08/12/19 25 08/12/2024 COMPR EHENS TAMI METAB OLIC PANEL AST 14 U/L 15-37 low Not Available Sundar gore [address] [place], [address] 08/12/2024 07:02:42 08/12/19 25 08/12/2024 COMPR EHENS TAMI METAB OLIC PANEL ALT 14 U/L 16-63 low Not Available Sundar rn [address] [place], [address] 08/12/2024 07:02:42 08/12/1908/12/2024 LACTA TE lactate 1.8 mmol/ L 0.6-1. 4 high Not Available [address] [place], [address] 08/12/2024 06:40:43 08/12/19 25 08/12/2024 COMPL ETE BLOOD COUNT W/DIF F WBC 14.51 10_3/ uL 4.4-10 .8 high Not Available [address] [place], [address] 08/12/2024 06:40:41 08/12/19 25 08/12/2024 COMPL ETE BLOOD COUNT W/DIF F RBC 3.75 10_6/ uL 4.36-5 .78 low Not Available [address] [place], [address] 08/12/2024 06:40:41 08/12/19 25 08/12/2024 COMPL ETE BLOOD COUNT W/DIF F HGB 10.8 g/dL 13.5-1 7.5 low Not Available [address] [place], [address] 08/12/2024 06:40:41 08/12/19 25 08/12/2024 COMPL ETE BLOOD COUNT W/DIF F HCT 33.5 % 40.0-5 0.0 low Not Available [address] [place], [address] 08/12/2024 06:40:41 08/12/19 25 08/12/2024 COMPL ETE BLOOD COUNT W/DIF F MCV 89 fL 80-95 normal Not Available Sundar gore [address] [place], [address] 08/12/2024 06:40:41 08/12/19 25 08/12/2024 COMPL ETE BLOOD COUNT W/DIF F MCH 28.8 pg 27.0-3 3.0 normal Not Available [address] [place], [address] 08/12/2024 06:40:41 08/12/19 25 08/12/2024 COMPL ETE BLOOD COUNT W/DIF F MCHC 32.2 % 32.0-3 6.0 normal Not Available [address] [place], [address] 08/12/2024 06:40:41 08/12/19 25 08/12/2024 COMPL ETE BLOOD COUNT W/DIF F RDW 14.0 % 11.8-1 4.1 normal Not Available [address] [place], [address] 08/12/2024 06:40:41 08/12/19 25 08/12/2024 COMPL ETE BLOOD COUNT W/DIF F platelet count 132 10_3/ uL 130-40 0 normal Not Available [address] [place], [address] 08/12/2024 06:40:41 08/12/19 25 08/12/2024 COMPL ETE BLOOD COUNT W/DIF F MPV 10.8 fL 8.0-11 .0 normal Not Available [address] [place], [address] 08/12/2024 06:40:41 08/12/19 25 08/12/2024 COMPL ETE BLOOD COUNT W/DIF F neutrophils % 89.2 % Not Available Francesca howard [address] [place], [address] 08/12/2024 06:40:41 08/12/19 25 08/12/2024 COMPL ETE BLOOD COUNT W/DIF F lymphocytes % 4.4 % Not Available [address] [place], [address] 08/12/2024 06:40:41 08/12/1908/12/2024 COMPL ETE BLOOD COUNT W/DIF F monocytes % 4.9 % Not Available [address] [place], [address] 08/12/2024 06:40:41 08/12/1908/12/2024 COMPL ETE BLOOD COUNT W/DIF F eosinophils % 0.7 % Not Available [address] [place], [address] 08/12/2024 06:40:41 08/12/1908/12/2024 COMPL ETE BLOOD COUNT W/DIF F basophils % 0.2 % Not Available [address] [place], [address] 08/12/2024 06:40:41 08/12/1908/12/2024 COMPL ETE BLOOD COUNT W/DIF F immature grans % 0.6 % Not Available [address] [place], [address] 08/12/2024 06:40:41 08/12/1908/12/2024 COMPL ETE BLOOD COUNT W/DIF F nucleated RBC 0.0 % 0.0-0. 3 normal Not Available [address] [place], [address] 08/12/2024 06:40:41 08/12/19 25 08/12/2024 COMPL ETE BLOOD COUNT W/DIF F absolute neutrophil count 12.94 10_3/ uL 1.2-6. 7 high Not Available [address] [place], [address] 08/12/2024 06:40:41 08/12/19 25 08/12/2024 COMPL ETE BLOOD COUNT W/DIF F absolute lymphocyte count 0.64 10_3/ uL 1.2-3. 4 low Not Available [address] [place], [address] 08/12/2024 06:40:41 08/12/19 25 08/12/2024 COMPL ETE BLOOD COUNT W/DIF F absolute monocyte count 0.71 10_3/ uL 0.1-0. 8 normal Not Available [address] [place], [address] 08/12/2024 06:40:41 08/12/19 25 08/12/2024 COMPL ETE BLOOD COUNT W/DIF F absolute eosinophil count 0.10 10_3/ uL 0.0-0. 7 normal Not Available [address] [place], [address] 08/12/2024 06:40:41 08/12/19 25 08/12/2024 COMPL ETE BLOOD COUNT W/DIF F absolute basophil count 0.03 10_3/ uL 0.0-0. 2 normal Not Available [address] [place], [address] 08/12/2024 06:40:41 08/28/19 25 08/28/2024 URINA LYSIS W/REF MIKO color Yellow yellow Not Available Sundar [address] [facility] [place], [address] 08/28/2024 14:04:13 08/28/19 25 08/28/2024 URINA LYSIS W/REF MIKO clarity Clear clear Not Available Sundar [address] [place], [address] 08/28/2024 14:04:13 08/28/19 25 08/28/2024 URINA LYSIS W/REF MIKO specific gravity 1.010 1.005- 1.025 normal Not Available [address] [facility] [place], [address] 08/28/2024 14:04:13 08/28/19 25 08/28/2024 URINA LYSIS W/REF MIKO pH 7.0 5-8 normal Not Available Sundar [address] [place], [address] 08/28/2024 14:04:13 08/28/19 25 08/28/2024 URINA LYSIS W/REF MIKO leukocyte esterase Negati ve negati ve Not Available [address] [place], [address] 08/28/2024 14:04:13 08/28/19 25 08/28/2024 URINA LYSIS W/REF MIKO nitrite Negati ve negati ve Not Available [address] [place], [address] 08/28/2024 14:04:13 08/28/19 25 08/28/2024 URINA LYSIS W/REF MIKO protein Negati ve mg/dL neg-tr cheryl Not Available [address] [place], [address] 08/28/2024 14:04:13 08/28/19 25 08/28/2024 URINA LYSIS W/REF MIKO glucose Negati ve mg/dL negati ve Not Available [address] [place], [address] 08/28/2024 14:04:13 08/28/19 25 08/28/2024 URINA LYSIS W/REF MIKO ketones Negati ve mg/dL negati ve Not Available [address] [place], [address] 08/28/2024 14:04:13 08/28/19 25 08/28/2024 URINA LYSIS W/REF MIKO urobilinogen 0.2 mg/dL up to 0.2 Not Available [address] [place], [address] 08/28/2024 14:04:13 08/28/19 25 08/28/2024 URINA LYSIS W/REF MIKO bilirubin Negati ve negati ve Not Available [address] [place], [address] 08/28/2024 14:04:13 08/28/19 25 08/28/2024 URINA LYSIS W/REF MIKO blood Negati ve negati ve Not Available [address] [place], [address] 08/28/2024 14:04:13 09/14/19 25 09/14/2024 MICRO SCOPI C FINDI NGS WBC 10-20 hpf 0-5 abnormal Not Available [address] [place], [address] 09/14/2024 13:21:56 09/14/19 25 09/14/2024 MICRO SCOPI C FINDI NGS RBC 0-2 hpf 0-2 Not Available Sundar gore [address] [place], [address] 09/14/2024 13:21:56 09/14/19 25 09/14/2024 MICRO SCOPI C FINDI NGS epithelial cells Rare hpf negati ve Not Available [address] [place], [address] 09/14/2024 13:21:56 09/14/19 25 09/14/2024 MICRO SCOPI C FINDI NGS other cells Negati ve negati ve Not Available [address] [place], [address] 09/14/2024 13:21:56 09/14/19 25 09/14/2024 MICRO SCOPI C FINDI NGS bacteria Rare hpf negati ve Not Available [address] [place], [address] 09/14/2024 13:21:56 09/14/19 25 09/14/2024 MICRO SCOPI C FINDI NGS crystals Negati ve hpf negati ve Not Available [address] [place], [address] 09/14/2024 13:21:56 09/14/19 25 09/14/2024 MICRO SCOPI C FINDI NGS mucus Negati ve negati ve Not Available [address] [place], [address] 09/14/2024 13:21:56 09/14/19 25 09/14/2024 MICRO SCOPI C FINDI NGS casts Negati ve lpf negati ve Not Available [address] [place], [address] 09/14/2024 13:21:56 09/14/19 25 09/14/2024 MICRO SCOPI C FINDI NGS C S indicated? Yes Not Available [address] [place], [address] 09/14/2024 13:21:56 09/14/19 25 09/14/2024 URINA LYSIS W/REF MIKO color Yellow yellow Not Available Sundar gore [address] [place], [address] 09/14/2024 13:21:55 09/14/19 25 09/14/2024 URINA LYSIS W/REF MIKO clarity Clear clear Not Available Sundar gore [address] [place], [address] 09/14/2024 13:21:55 09/14/19 25 09/14/2024 URINA LYSIS W/REF MIKO specific gravity 1.015 1.005- 1.025 normal Not Available [address] [place], [address] 09/14/2024 13:21:55 09/14/19 25 09/14/2024 URINA LYSIS W/REF MIKO pH 8.0 5-8 normal Not Available Sundar gore [address] [place], [address] 09/14/2024 13:21:55 09/14/19 25 09/14/2024 URINA LYSIS W/REF MIKO leukocyte esterase Trace negati ve abnormal Not Available [address] [place], [address] 09/14/2024 13:21:55 09/14/19 25 09/14/2024 URINA LYSIS W/REF MIKO nitrite Negati ve negati ve Not Available [address] [place], [address] 09/14/2024 13:21:55 09/14/19 25 09/14/2024 URINA LYSIS W/REF MIKO protein Negati ve mg/dL neg-tr cheryl Not Available [address] [place], [address] 09/14/2024 13:21:55 09/14/19 25 09/14/2024 URINA LYSIS W/REF MIKO glucose Negati ve mg/dL negati ve Not Available [address] [place], [address] 09/14/2024 13:21:55 09/14/19 25 09/14/2024 URINA LYSIS W/REF MIKO ketones Negati ve mg/dL negati ve Not Available [address] [place], [address] 09/14/2024 13:21:55 09/14/19 25 09/14/2024 URINA LYSIS W/REF MIKO urobilinogen 0.2 mg/dL up to 0.2 Not Available [address] [place], [address] 09/14/2024 13:21:55 09/14/19 25 09/14/2024 URINA LYSIS W/REF MIKO bilirubin Negati ve negati ve Not Available [address] [place], [address] 09/14/2024 13:21:55 09/14/19 25 09/14/2024 URINA LYSIS W/REF MIKO blood Trace- lysed negati ve abnormal Not Available [address] [place], [address] 09/14/2024 13:21:55 09/14/1909/14/2024 URINA LYSIS W/REF MIKO color Yellow yellow Not Available Sundar gore [address] [place], [address] 09/14/2024 13:11:02 09/14/19 25 09/14/2024 URINA LYSIS W/REF MIKO clarity Clear clear Not Available Sundar gore [address] [place], [address] 09/14/2024 13:11:02 09/14/19 25 09/14/2024 URINA LYSIS W/REF MIKO specific gravity 1.015 1.005- 1.025 normal Not Available [address] [place], [address] 09/14/2024 13:11:02 09/14/19 25 09/14/2024 URINA LYSIS W/REF MIKO pH 8.0 5-8 normal Not Available Sundar gore [address] [place], [address] 09/14/2024 13:11:02 09/14/19 25 09/14/2024 URINA LYSIS W/REF MIKO leukocyte esterase Trace negati ve abnormal Not Available [address] [place], [address] 09/14/2024 13:11:02 09/14/19 25 09/14/2024 URINA LYSIS W/REF MIKO nitrite Negati ve negati ve Not Available [address] [place], [address] 09/14/2024 13:11:02 09/14/19 25 09/14/2024 URINA LYSIS W/REF MIKO protein Negati ve mg/dL neg-tr cheryl Not Available [address] [place], [address] 09/14/2024 13:11:02 09/14/19 25 09/14/2024 URINA LYSIS W/REF MIKO glucose Negati ve mg/dL negati ve Not Available [address] [place], [address] 09/14/2024 13:11:02 09/14/1909/14/2024 URINA LYSIS W/REF MIKO ketones Negati ve mg/dL negati ve Not Available [address] [place], [address] 09/14/2024 13:11:02 09/14/19 25 09/14/2024 URINA LYSIS W/REF MIKO urobilinogen 0.2 mg/dL up to 0.2 Not Available [address] [place], [address] 09/14/2024 13:11:02 09/14/19 25 09/14/2024 URINA LYSIS W/REF MIKO bilirubin Negati ve negati ve Not Available [address] [place], [address] 09/14/2024 13:11:02 09/14/19 25 09/14/2024 URINA LYSIS W/REF MIKO blood Trace- lysed negati ve abnormal Not Available [address] [place], [address] 09/14/2024 13:11:02 07/14/20 23 07/14/2023 ED visit note ED Visit Note JUICE Frost NAME: Arvind Ambriz UNIT #: [id number] ADMITT ING PROVID ER: Waqas Nugent ACCOUN T #: [id number] PRIMAR Y CARE PROVID ER: RUBIN [...] odyl)] 10 mg Suppos itory 10 mg TN DAILY loraze rigoberto 1 mg Tablet 1 mg PO TID PRN cholec alcife rol (vitam in D3) [Vitam in D3] 1,000 unit Capsul e 1 unit PO DAILY Medica l Decisi on Making This dictat ion utiliz es voice- to-leslye t dictat ion softwa re and december contai n unedit ed gramma tical errors [...] tosis, histor y of cranio rigo and CHAIR MENDER shunt. Family and social histor y: carekemi bautista and rian fernández nurses . Pertin [...] -basic labs discus sed with family , holdsandrine g CT scan based on bloodw ork, [...] of hematu jacob like renal stones . Patien t signed out to Dr. Paolo at shift change pendin g repeat lactat e and imagin g result s with dispos ition. Dispos ition of Li Cathet er Proble m, Urinar y Tract Infect ion, Sepsis Patijoni frost verbal ized unders rachel g of [...] 10 3/uL 0.78 L Absolu te Monocy alexanrda (0.1-0 .8) 10 3/uL 0.79 Absolu te [...] male presen ts to ED today by [facility] hair, with sister and careta ker- non-ve rbal with a chief compla int of samirggfawn slater li cathet er change d by home [...] fernández. Provok ing factor s includ e nothin g specif ic. Events leadin g up to the incide nt/Ass ociate d Sympto ms: juice frost is chroni jeremias cath'd . Patien margot not antico agulat ed. 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 Thank you. [email or web address] [facility] [address] [place], [address] 07/15/2023 07:47:36 07/15/20 23 07/15/2023 vrad wicho Bose t Name: Arvind Ambriz Unit #: [id number] Loc: ER Orderi ng Provid er: Accoun t #: [id number] Status : REG ER Primar y [...] MD. Orderi ng:Armando Wilkerson MD Access ion#=[id number] Orderfawn d By: CC: ------ ------ ------ ------ ------ ------ ------ ------ ------ ------ ------ ------ ---- Dictat ed By: Report s vrad [id number] Transc ribed By: Cristiane Merge 0027 This is privil eged, confid ential inform ation intend ed only for the provid er named. Any use or distri bution by any person other than this provid er is strict ly prohib ited. If you receiv e this report in error, please notify us immedi leahly at and return the origin al report to us at the addres s above. Thank- you. [facility] [address], [place], [address] 07/15/2023 07:47:37 07/15/20 23 07/15/2023 ED progr ess note ED Progre ss Note PATIEN T NAME: Arvind Ambriz UNIT #: [id number] ADMITT ING PROVID ER: Deshawn Boone M.D. ACCOUN T #: [id number] PRIMAR Y CARE PROVID ER: FELISHA SU, [...] some IV antibi otics here. Back to [facility] [place]. Vital signs unrema rkable . Will send home with treatm ent for UTI and given strict return precau tions. Stella mullen agreea ble with this plan. Medica l Record s Medica l record s review ed: Yes I review ed the patien t's medica l record s. Rassandrine g Data Radiol ogic Study: Attest ation: [...] odyl)] 10 mg Suppos itory 10 mg TN DAILY loraze rigoberto 1 mg Tablet 1 mg PO TID PRN cholec alcife rol (vitam in D3) [Vitam in D3] 1,000 unit Capsul e 1 unit PO DAILY Discha rge Instru ctions Instru ctions : Urinar y Tract Infect ion in Men (ED), Li Cathet er Place ent and Care (ED) [...] doctor . Referr als: Trinidad Lau MD [[facility] Provid er] - 1 week cc: RUBIN LAU MD ------ ------ ------ ------ ------ ------ ------ ------ ------ ------ ------ --- Dictat ed by: Deshawn Boone M.D. Dictat ed: Time: Date: 228 Date: Date: Transc ribed Date: [...] at the addres s above. Thank you. [email or web address] [facility] [address] [place], [address] 07/15/2023 07:47:37 07/15/20 23 07/15/2023 CT, abdom en + pelvi s, w/ contr ast Patien t Name: Arvind Ambriz Unit #: [id number] Loc: ER Orderi ng Provid er: Waqas Nugent Accoun t #: [id number] Status : DEP ER Primar y Care [...] Regist ry (DIR) with the Americ thang umanzor of Radiol ogy (ACR). RADIAT ION OPTIMI [...] error, please notify us immedi ately at [phone] and return the origin al report to us at the addres s above. Thank- you. [email or web address] [facility] [address], [place], [address] 07/15/2023 12:07:27 08/12/19 24 08/12/2023 ultra sound imagi ng repor t Patijoni t Name: Arvind Ambriz Unit #: [id number] Loc: DI Orderi ng Provid er: Joey House M.D. Accoun t #: [id number] Status : REG CLI Primar y Care Provid er: Trinidad Lau M.D. Date of Exam: Sex: M Admiss ion Date: : 1965 Age: 57 Exam(s ) US RENAL EXAM: US RENAL CLINIC AL HISTOR Y: ? hydron ephros is,aureliano zarina c vero r,N31. 9. TECHNI QUE: Amor scale, color and [...] cathet er presen t within decomp ressed eboniee r IMPRES IDA: No eviden ce of [...] error, please notify us immedi ately at [phone] and return the origin al report to us at the addres s above. Thank- you. [email or web address] [facility] [address], [place], [address] 08/14/2023 16:21:59 08/19/19 24 08/18/2023 ED visit note ED Visit Note PATIEN T NAME: Arvind Ambriz lisa Angela UNIT #: [id number] ADMITT ING PROVID ER: Dejan Campa DO ACCOUN T #: [id number] PRIMAR Y CARE PROVID ER: RUBIN LAU MD Y DATE OF ADMIT: : 1965 HPI Genera l Stated Compla int: Urinar y SCHUYLER: 3 Date/T gerber Provid er Initia leidy Willis ntatio n: 22:50. 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 Histor y is notabl y limite d, juice t is nonver bal. 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 Moist MM. Neck: [...] ly simila r to an enlarg ed vero r. Juice frost has defeca leidy on himsel f, genita chelsey otherw ise looks stable with no blood at the urethr al meatus . 7.MSK: Normoc ephali c/Atra umatic , chroni c partia l contra ctures of the upper extrem ities. 8.Skin : Warm, Dry. No rashes or lesion s. 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 Histor y is notabl y limite d, juice frost is nonver bal. EMS marcos t the [...] the patijoni frost on cefpod oxime. Juice t appear s notabl y clinic ally improv ed. Juice frost stable for discha rge. Discus sed the plan with the patien t's alex sanchez who is at bedsid e. I have extens indianaely review ed the treatm ent plan and discha rge instru ctions with the patien t and their family . I have addres sed all patijoni t concer ns at this time. The patien t and family was made aware of what sympto ms to monito r for that would jeffery frost a return to the [facility] ment. Discus sed the plan with the patien t and family , they demons trate verbal unders tandin g and agreem ent with our assess ment and plan at this time. The docume ntatio n in this chart was dictat ed using [employer] ion softwa re. Please excuse any dictat [...] odyl)] 10 mg Suppos itory 10 mg TN DAILY loraze rigoberto 1 mg Tablet 1 mg PO TID PRN cholec alcife rol (vitam in D3) [Vitam in D3] 1,000 unit Capsul e 1 unit PO DAILY Discha rge Instru ctions Instru ctions : Li Cathet er Place ent and Care (ED) [...] , it was a pleasu re partic ipatin g in your medica l care today. Referr als: Joey House MD [ [facility] STAFF PHYSIC NICOLE] - Trinidad Lau MD [Prima ry Care Provid er] - Discha rge Data Discha rge Date/T gerber-TO BE ENTERE D AT DEPART URE: 00:23 cc: RUBIN LAU MD ------ ------ ------ ------ ------ ------ ------ ------ ------ ------ ------ --- Dictat ed by: JAQUELINE YOUNGWAQAS HUNTER R Dictat ed: Time: 23 53 Date: 525 Date: Date: Transc ribed Date: Transc ribed Time: 2352 By: JESSICA Metcalf This is privil eged, confid ential inform ation, intend ed only for the provid er named. Any use or distri bution by any person other than this provid er is strict ly prohib ited. If you receiv e this repo rt in error, please notify us immedi leahly at and return the origin al report to us at the addres s above. Thank you. [email or web address] [facility] [address], [place], [address] 08/21/2023 07:03:01 08/31/19 24 08/30/2023 ED visit note ED Visit Note PATIEN T NAME: Arvind Ambriz UNIT #: [id number] ADMITT ING PROVID ER: Brii Olmedo M.D. ACCOUN T #: [id number] PRIMAR Y CARE PROVID ER: FELISHA SU, RUBIN Y DATE OF ADMIT: : 1965 HPI Genera l Mode of arriva l: EMS . Date/T gerber Provid er Initia leidy Willis ntatio n: 23:18 . Inform ation obtain ed by: family . HPI Narrat tami: 57yo M largel y nonver bal, chroni c indwel korey li, jarrett shell for dislod ged urinar y cathet er. Guillermo fell out. No bleedi ng or trauma [...] 10 mg rectal suppos itory 10 mg TN DAILY (Dulco lax (bisac odyl)) cholec alcife [...] urinar y cathet er. Histor y from [facility] at bedsid e No bleedi ng or trauma , balloo n appear ed deflat ed. No UTI sympto ms. No indica tion for labs or UA. Vital signs and physic al exam reassu ring. Guillermo replac ed withou t compli cation , draine d clear yellow urine. Discha rged home; discha rge instru ctions and return precau tions were review ed with [facility] who verbal ized unders rachel fernández; all questi ons were answer ed and they are in full agreem ent with the plan. 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 Thank you. [email or web address] [facility] [address], [place], [address] 08/31/2023 08:30:10 04/23/20 24 04/26/2019 imagi ng/di agnos tic resul t No observ ation record ed. [email or web address] Not Available 04/23 19:41:36 04/23/20 24 05/01/2019 imagi ng/di agnos tic resul t No observ ation record ed. [email or web address] Not Available 04/23 19:41:37 04/23/2004/26/2019 imagi ng/di agnos tic resul t No observ ation record ed. [email or web address] Not Available 04/23 19:41:44 04/23/2004/26/2019 imagi ng/di agnos tic resul t No [...] Patien t Name: Arvind Ambriz Unit #: [id number] Loc: ER Orderi ng Provid er: Waqas Nugent Accoun t #: [id number] Status : REG ER Primar y Care [facility] er: Feliberto Starks Date of Exam: Sex: [...] Regist ry (DIR) with the [place] thang umanzor of Radiol ogy (ACR). RADIAT ION OPTIMI [...] ---- Dictat ed By: Rupesh Hamilton M.D. [id number] Transc ribed By: Rupesh Hamilton 1315 This [...] the addres s above. Thank- you. INTERFACE [facility] [address] [place], [address] 05/21/2024 13:21:03 06/26/2006/26/2024 x-ray imagi ng wicho Bose t Name: Arvind Ambriz Unit #: [id number] Loc: ER Delicia ng Provid er: Kishor Mann M.D. Accoun t #: [id number] Status : REG ER Primar [...] Dictat ed By: Michael Wahl M.D. 1228 8 Transc ribed By: Maryuri SU,Kierra oliva 1228 [...] the addres s above. Thank- you. INTERFACE [facility] [address] [place], [address] 06/26/2024 12:33:16 06/26/20 24 06/26/2024 CT imagi ng repor t Patijoni t Name: Arvind Ambriz Unit #: [id number] Loc: ER Orderi ng Provid er: Kishor Mann M.D. Accvaldo t #: [id number] Status : REG ER Primar [...] l aspect of the tibial plafon d. Power Project Manager ior malleo lonnie is intact . Latera l malleo lonnie is intact . Discus sed by phone with ER physic nicole RADIAT ION DOSE DELIVE RED: 125.7m Gy.cm Total DLP DATA REPOSI TORY: All CT scans at this facili ty are submit leidy to the Nation al Radiol ogy Data Regist ry (NRDR) Dose Index Regist ry (DIR) with the [place] thang umanzor of Radiol ogy (ACR). RADIAT ION OPTIMI ZATION : All CT scans at this facili ty use at least one of these dose optimi zation techni ques: automa leidy exposu re contro l; mA and/or kV adjust ment per juice frost size (inclu nader target ed exams where dose is matche d to clinic al indica tion); or iterat tami recons tructi on. 1119-0 027: Total DLP = 0.00 mGy-cm Ordere d By: Kishor Mann M.D. CC: ------ ------ ------ ------ ------ ------ ------ ------ ------ ------ ------ ------ ---- Dictat ed By: Michael Wahl M.D. 1355 1355 Transc ribed By: Maryuri SU,Kierra oliva 1355 This is privil eged, confid ential inform ation intend ed only for the provid er named. Any use or distri bution by any person other than this [facility] er is strict ly prohib ited. If you receiv e this report in error, please notify us immedi ately at [phone] and return the origin al report to us at the addres s above. Thank- you. INTERFACE [facility] [address] [place], [address] 06/26/2024 13:59:26 08/10/19 25 08/10/2024 vrad wicho Bose t Name: Arvind Ambriz Angela Unit #: [id number] Loc: ER Larryyazan donovan Provid er: Vane t #: [id number] Status : REG ER Primar y [...] Sophie demarco d by: Deshawn Valdes MD. Delicia ng:PCornelia Medellin MD Access ion#=[id number] Ordere d By: CC: ------ ------ ------ ------ ------ ------ ------ ------ ------ ------ ------ ------ ---- Dictat ed By: Report s vrad 1904 Transc ribed By: Cristiane Galarza 1904 This is privil eged, confid ential [...] at the addres s above. [facility]- you. [facility] [address] [place], [address] 08/12/2024 13:52:59 08/11/19 25 08/11/2024 x-ray imagi ng repor t Patien t Name: Arvind Ambriz Unit #: [id number] Loc: ICU Orderi ng Provid er: Iliana derw,Sridevi MCNEIL Accoun t #: [id number] Status : ADM IN Primar y Care Provid er: Feliberto Starks Date of Exam: Sex: M Admiss ion Date: : 1965 Age: 58 Exam(s ) XR PORTAB LE CHEST AP EXAM: XR PORTAB LE CHEST AP CLINIC AL HISTOR Y: sob. TECHNI QUE: 2D digita l imagin g was perfor med. COMPAR MARLENY: CR,XR XR PORTAB LE CHEST AP from [address] ABDOME N PELVIS W from 2018 FINDIN GS: Single AP portab le view. Ventri culope ritone al shunt is again noted. Right hemidi aphrag m is elevat ed by air-fi lled colon loop interp osed betwee n the liver and the hemidi aphrag m. Heart size is upper normal . The medias tinum is not widene d. There are increa sed markin gs in the left lower lobe retroc ardiac region but this appear s unchan ged from 2019. There is also some infilt rate in the right lower lobe medial aspect which may be infilt rate in the oil developer ior basal segmen t of the right lower lobe. An no obviou s pleura l effusi ons.. IMPRES IDA: Mild right lower lobe infilt rate in the oil developer ior basal segmen t of the right lower lobe. No obviou s pleura l effusi ons on the single AP view. Heart size normal . Ventri culope ritone al shunt noted. DATA REPOSI TORY: RADIAT ION DOSE DELIVE RED: Ordere d By: Iliana drew,Sridevi MCNEIL CC: ------ ------ ------ ------ ------ ------ ------ ------ ------ ------ ------ ------ - Dictat ed By: Michael Wahl M.D. 1438 143 Transc ribed By: Maryuri SU,Kierra pj 1437 This is privil eged, confid ential inform ation intend ed only for the provid er named. Any use or distri bution by any person other than this provid er is strict ly prohib ited. If you receiv e this report in error, please notify us immedi ately at [phone] and return the origin al report to us at the addres s above. Thank- you. INTERFACE [facility] [address], [place], [address] 08/11/2024 14:44:09 08/11/1908/11/2024 x-ray imagi ng wicho frost Name: Arvind Ambriz Unit #: [id number] Loc: ICU Orderi ng Provid er: Rupesh Manuel M.D. Accoun t #: [id number] Status : ADM IN Primar y Care Provid er: Feliberto Starks Date of Exam: Sex: M Admiss ion Date: : 1965 Age: 58 Exam(s ) XR ABDOME N FLAT PLATE EXAM: XR ABDOME N FLAT PLATE CLINIC AL HISTOR Y: ileus. TECHNI QUE: 2D digita l rasin g was perfor med. COMPAR MARLENY: CT CT RENAL COLIC WO from 2023 FINDIN GS: Single AP portab le supine view of the abdome n-pelv is The distal tip of the ventri culope ritone al shunt is in the left iliac fossa There are air-fi lled and disten ded bowel loops throug hout the abdome n and pelvis . Cannot assess for free air as this is a supine image. There are no uprigh t nor decubi tus images . The stomac h is also disten ded. Both small bowel and large bowel loops are disten ded with air. There does not appear to be obviou s rectal fecal impact ion. IMPRES IDA: Air-fi lled disten ded small and large bowel loops withou t eviden ce of obviou s fecal rectal impact ion. This findin g is simila r to prior studie s. Most probab ly diffus e ileus patter n If clinic ally indica leidy follow -up CT scan can be perfor med DATA REPOSI TORY: RADIAT ION DOSE DELIVE RED: Ordere d By: Rupesh Manuel M.D. CC: ------ ------ ------ ------ ------ ------ ------ ------ ------ ------ ------ ------ - Dictat ed By: Michael Wahl M.D. 1443 1443 Transc ribed By: Maryuri SU,Kierra oliva 1443 This is privil eged, confid ential inform ation intend ed only for the provid er named. Any use or distri bution by any person other than this provid er is strict ly prohib ited. If you receiv e this report in error, please notify us immedi ately at [phone] and return the origin al report to us at the addres s above. Thank- you. INTERFACE [facility] [address], [place], [address] 08/11/2024 14:58:04 08/11/1908/11/2024 vrad repor t Patien t Name: Arvind Ambriz Unit #: [id number] Loc: ICU Orderi ng Provid er: Accoun t #: [id number] Status : ADM IN Primar y Care Provid er: Feliberto Starks Date of Exam: Sex: M : 1965 Age: 58 Exam(s ) PROCED URE INFORM ATION: Exam: XR Abdome n Exam date and time: 08/11/19 2:06 PM Age: 58 years old Clinic al indica tion: Other: Ileus TECHNI QUE: Imagin g protoc ol: Radiol ogic exam of the abdome n. Views: Fronta l supine view of the abdome n. 1 View. COMPAR MARLENY: CT RENAL COLIC WO 2023 12:58 PM FINDIN GS: Gastro intest inal tract: There is gaseou s disten ida of small and large bowel. No gross amount s of free air are apprec iated. There is a centra l to right- sided cathet er, possib le CHAIR MENDER shunt tubing . Bones/ joints : Unrema rkable . IMPRES IDA: Signif icant ileus. Patter n not typica l for obstru ction. Dictat ed and Authen ticate d by: Karena deluca MD. Orderi ng:Armando Goddard MD Access ion#=[id number] Ordere d By: CC: ------ ------ ------ ------ ------ ------ ------ ------ ------ ------ ------ ------ ---- Dictat ed By: Report s vrad 1406 1509 Transc ribed By: Cristiane Merge 1406 This is privil eged, confid ential inform [...] the addres s above. Thank- you. INTERFACE [address] , [place], [address] 08/11/2024 15:14:06 Result Notes None recorded. Problems Name Problem SNOMED Code Status Onset Date Resolution Date Notes Provider Name and Address Organization Details Recorded Time Closed fracture of right tibia 49192897854 427976 Active 2023 NEIL BROWN, [facility] 4 15:07:05 Recurren t aspirati on pneumoni a 906202086 Active [address], [facility] [address] , [facility] 5 09:46:10 Profound intellec tual disabili ty 01078058 Active 2003 Problem Code: F73; Problem Code Type: ICD-10; MD Franco [address], [facility] [address] , [facility] 3 06:21:21 Onychomy cosis due to dermatop hyte 746239072 Active 2014 Solher Haynes [facility] 4 10:37:37 Abnormal gait 28740477 Active 2016 Solher Haynes [facility] 4 10:38:19 Pneumoni a 305513326 Completed 201612/21/2016 Problem Code: J18.9; Problem Code Type: ICD-10; [facility] 4 10:37:14 Pneumoni a 411264300 Completed 201606/07/2017 Problem Code: J18.9; Problem Code Type: ICD-10; Sol Haynes null, [facility] 4 10:37:14 Muscle weakness 16685806 Active 2017 Solher Haynes [facility] 4 10:37:28 Reduced mobility 0333454 Active 2017 Problem Code: Z74.09; Problem Code Type: ICD-10; MD Franco [address], [facility] [address] , [facility] 3 06:21:22 History of infectio us disease 482817447 Active 2018 [facility] 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 354974522 Active 2018 Problem Code: N31.9; Problem Code Type: ICD-10; MD Franco [address], [place] [id number] , [facility] 3 06:21:21 Constipa tion 95222425 Active 2020 Problem Code: K59.09; Problem Code Type: ICD-10; MD Franco [address], [place] [id number] , [facility] 3 06:21:21 Blephari tis 72389256 Active 2020 Solher Haynes [facility] 4 10:38:13 Cough 94009943 Completed 202003/31/2021 Problem Code: R05; Problem Code Type: ICD-10; Not Available [facility] 3 05:10:29 Acute upper respirat ory infectio n 48303816 Completed 202003/31/2021 Problem Code: J06.9; Problem Code Type: ICD-10; Not Available [facility] 3 05:10:29 Pinhole meatus 76478649 Active 2021 [facility] 4 10:37:18 Neurofib romatosi s type 2 54074613 Active 2003 Problem Code: Q85.02; Problem Code Type: ICD-10; MD Franco [address], [facility] [address] , [facility] 3 06:21:22 Benign neoplasm of meninges 856154869 Active 2003 Problem Code: D32.9; Problem Code Type: ICD-10; MD Franco [address], [address] 3 06:21:21 Retentio n of urine 589667252 Active 2003 Problem Code: R33.9; Problem Code Type: ICD-10; MD Franco [address], [address] 3 06:21:21 Rosabirda 174792264 Active 2011 Problem Code: L71.9; Problem Code Type: ICD-10; MD Franco [address], [address] 3 06:21:21 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 834826941 Active 2003 Problem Code: Z98.2; Problem Code Type: ICD-10; MD Franco [address], [address] 3 06:21:22 Urinary tract infectio us disease 82833430 Active 2003 Problem Code: N39.0; Problem Code Type: ICD-10; MD Franco [address], [address] 3 06:21:22 Neurofib romatosi s syndrome 68093031 Completed 200305/04/2023 Not Available [facility] 3 05:10:30 Pneumoni a 842154570 Completed 201408/26/2015 Problem Code: J18.9; Problem Code Type: ICD-10; Sol naranjo, [facility] 4 10:37:14 Mental retardat ion Completed 200305/04/2023 Not Available [facility] 3 05:10:30 Dental caries 24128651 Completed 201505/17/2016 Problem Code: K02.9; Problem Code Type: ICD-10; Not Available [facility] 3 05:10:30 Acute bronchos pasm 42498855026 100 Completed 201412/08/2015 Problem Code: J98.01; Problem Code Type: ICD-10; Not Available [facility] 3 05:10:30 Altered bowel function 71496137 Completed 201902/17/2021 Problem Code: R19.4; Problem Code Type: ICD-10; Not Available [facility] 3 05:10:31 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 412922914 Completed 200305/04/2023 Problem Code: 237.6; Problem Code Type: ICD-9; Not Available [facility] 3 05:10:31 Urethral stenosis 874827845 Active [address], [facility] [address] , [facility] 3 06:21:17 Intracra nial meningio ma 148412781 Active [address], [facility] [address] , [facility] 3 06:22:15 At increase d risk for aspirati on 589715279 Active [address], [facility] [address] , [facility] 3 06:25:12 Neurogen ic urinary bladder 125711849 Active 2023 Solher Haynes [facility], [facility] 4 10:37:24 History of calculus of kidney 522608713 Active 2023 Solher Haynes null, [facility] 4 10:37:39 Pneumoni a 817277498 Active 2022 Problem Code: J18.9; Problem Code Type: ICD-10; Sol Ivy null, [facility] 4 10:37:13 Li catheter terminal clerk use Active 2022 Sol naranjo, [facility] 4 10:37:42 Anxiety 87989492 Active [address], [place] [address] , [facility] 4 17:46:07 Tinea cruris 633857856 Active [address], [place] [address] , [facility] 17:47:47 Follicul itis 22572636 Active [address], [address] 17:49:09 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 13958337 Active [address], [place] [address] , [facility] 21:20:48 Hypertro phy of nail 91137245 Active [address], [place] [address] , [facility] 21:30:56 Impacted cerumen of bilatera l ears 67756294190 11640 Active [address], [address] 21:36:10 Visual impairme nt 774470009 Active [address], [place] [address] , [facility] 21:38:03 Atypical pneumoni a 021302739 Active [address], [place], [address] , [facility] 4 15:18:40 Skin lesion 44544353 Active [address], [place], [address] , [facility] 4 15:35:35 Onychogr yphosis 72932277 Active 2023 DHARA JACKSON QUALITY CHECKER null, [facility] 4 15:07:20 Edema 298815396 Active 2023 DHARA JACKSON QUALITY CHECKER null, [facility] 4 15:08:01 Disorder of nail 09114301 Active 2023 DHARA JACKSON QUALITY CHECKER null, [facility] 4 15:09:41 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 Procedures Surgical History None recorded. Imaging Results Imaging Date Name Status LastModified by Organiz ation Details LastModified Time 07/14/2023 ED visit note completed [email or web address] [facility] [address] , [place], [address] 07/15/2023 07:47:36 07/15/2023 vrad report completed [address] [place], [address] 07/15/2023 07:47:37 07/15/2023 ED progress note completed [address] [place], [address] 07/15/2023 07:47:37 07/15/2023 CT, abdomen + pelvis, w/ contrast completed [address] [place], [address] 07/15/2023 12:07:27 08/12/2023 ultrasound imaging report completed [address] [place], [address] 08/14/2023 16:21:59 08/18/2023 ED visit note completed [address] [place], [address] 08/21/2023 07:03:01 08/30/2023 ED visit note completed [address] [place], [address] 08/31/2023 08:30:10 04/26/2019 imaging/diagnos tic result completed [...] 19:45:06 05/21/2024 CT imaging report completed INTERFACE [address] [place], [address] 05/21/2024 13:21:03 06/26/2024 x-ray imaging report completed INTERFACE [address] [place], [address] 06/26/2024 12:33:16 06/26/2024 CT imaging report completed INTERFACE [address] [place], [address] 06/26/2024 13:59:26 08/10/2024 vrad report completed [address] [place], [address] 08/12/2024 13:52:59 08/11/2024 x-ray imaging report completed [address] [place], [address] 08/11/2024 14:44:09 08/11/2024 x-ray imaging report completed [address] [place] [place], [address] 08/11/2024 14:58:04 08/11/2024 vrad report completed [address] [place] [place], [address] 08/11/2024 15:14:06 Procedure Notes None recorded. Medical Equipment None Reported. Allergies Allergen ID Allergen Name Allergen Category Reaction Reaction Severity Criticality Documentation Date Start Date Code Code System Note Provider Name and Address Organization Details Recorded Time Tegretol medicatio n Not available Not available Not available 06/17/20232001 9 RxNorm Not Available [facility] 16:07:31 68034 sulfadiaz ine medicatio n other mild Not available 06/17/20232001 88913 RxNorm gi upset Aller gyRea ction : 'gi upset '; Not Available [facility] 16:07:32 21869 Risperdal medicatio n Not available Not available Not available 06/17/20232001 24199 8 RxNorm Aller gyCod e: '1249 16299 01'; Aller gyNam e: 'RISP ERDAL '; Aller gyCon ceptT ype: 'NDC' ; Not Available [facility] 3 16:07:32 95154 Neurontin medicatio n other moderate low 08/02/2023 70154 8 RxNorm ataxi a GIANCARLO LAU MD [address], [place], [address] [place] [address] 3 06:24:47 Medications Name Sig Start Date [...] as directed once a day 2021 active [facility] - Fax number Not Available Not Available [...] Printed: 01/26/2024 Information not available 01/26/2024 Assigned Heart Surgeon: Luic Shafer [email or web address] Information not available 01/26/2024 Is [facility] The Lead Heart Surgeon? Yes Information no t available 01/26/2024 Level [...] Yes Informa tion not available 01/26/2024 Community Engine Designer Yes Information not available 01/26/2024 Medication Assistance [...] Influenza, split virus, trivalent, PF 4 completed [facility] [place] [facility] 04/27/2024 13:43:24 Influenza, split virus, trivalent, preservative 6 completed Not Available [facility] 06/17/2023 06:25:24 Influenza, split virus, quadrivalent, PF 2 completed Not Available [facility] 06/17/2023 06:25:24 Influenza, split virus, quadrivalent, PF 9 completed Not Available [facility] 06/17/2023 06:25:24 Influenza, split virus, quadrivalent, PF 0 completed Not Available [facility] 06/17/2023 06:25:24 Influenza, split virus, quadrivalent, PF 1 completed Not Available [facility] 06/17/2023 06:25:24 Influenza, split virus, quadrivalent, preservative 9 completed Not Available [facility] 06/17/2023 06:25:24 COVID-19, mRNA, LNP-S, PF, 30 mcg/0.3 mL dose 1 completed Not Available [facility] 06/17/2023 06:25:25 COVID-19, mRNA, LNP-S, PF, 30 mcg/0.3 mL dose 1 completed Not Available [facility] 06/17/2023 06:25:25 COVID-19, mRNA, LNP-S, PF, 30 mcg/0.3 mL dose 1 completed Not Available [facility] 06/17/2023 06:25:25 COVID-19, mRNA, LNP-S, PF, 30 mcg/0.3 mL dose, sabrina-sucrose 2 completed Not Available [facility] 06/17/2023 06:25:25 COVID-19, mRNA, LNP-S, bivalent, PF, 30 mcg/0.3 mL dose 2 completed Not Available [facility] 06/17/2023 06:25:25 pneumococcal polysaccharide PPV23 4 completed Not Available [facility] 06/17/2023 06:25:25 influenza, unspecified formulation 4 completed Not Available [facility] 06/17/2023 06:25:25 Influenza, split virus, quadrivalent, PF 3 completed Not Available [facility] 08/19/2023 05:31:33 COVID-19, mRNA, LNP-S, PF, sabrina-sucrose, 30 mcg/0.3 mL 3 completed Not Available [facility] 08/19/2023 05:31:33 Past Encounters Encounter ID Performer Location Encounter Start Date Encounter Closed Date Diagnosis/Indication Diagnosis SNOMED-CT Code Diagnosis ICD10 Code Diagnosis Note [id number] GIANCARLO LAU MD [address] [address] 08/02/2023 13:33:29 08/02/2023 14:40:20 Counseling [id number] Z71.9 08/02/2023 Discussion with sister, Tarah Clark, now his guardian about my understand ing of his condition and potential future health problems including aspiration , recurrent urinary tract infections , declining functional abilities related to neurodegen erative changes and/or growth of meningioma s, chronic constipati on and management thereof. I see no reason to limit his activities and if his current caregiver feels it is safe to do so, can get him up and try walking more. I do not think he will be able to participat e with formal OT or PT because of his cognitive impairment s. Plan of managing his Li is monthly catheter changes with Dr. House. [id number] FELIBERTO STARKS MD [address] [address] 11/07/2023 15:25:43 11/28/2023 15:02:27 Anxiety 74873340 F41.9 Trial sertraline low dose for anxiety. Tinea cruris 323057323 B 35.6 Refill clotrimazo le. Folliculitis 19496368 L7 3.9 Rash of neck and upper back most c/w folliculit is. Trial clindamyci n. 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 Could consider returning to [facility] neurosurge ry for their opinion, or trying to do a televisit with them at least. Neurogenic urinary bladder 046610773 N31.9 Defer to urology on management of this. Hypertrophy of nail 3065 4002 L60.2 Likely needs nail removal vs significan t debridemen t. May also benefit from custom shoes. 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 Impacted c erumen of bilateral ears 0800167030 480385 H61.23 Can trial debrox drops and gentle irrigation once they have a shower set up for him. Unless there are clear signs of discomfort or hearing loss, manual removal would not be in his best interest. I don't think he could fully cooperate for this. Visual impairment 366530 003 H54.7 I recommend starting with having him wear his glasses again. If there are further concerns, consider seeing ophtho. I'm not sure if [facility] would be equipped to evaluate him or if he would need to go to [facility] ophthalmol oglisa. [id number] FELIBERTO STARKS MD [address] [address] 02/03/2024 14:47:00 02/03/2024 15:32:11 Anxiety 63952115 F41.9 Sertraline has been effective. Plan to increase dose to 50mg as it seems to be a little less effective than it was at first. No evidence of side effects. Atypical pneumonia 47365 6009 J18.9 2 weeks of very congested cough. Will request records from [facility]. Treat for atypical PNA due to duration of symptoms with azithromyc in. 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 Skin lesion 01908510 L98 .9 Saranya will take a picture of the skin lesion on his left cheek and send it to the front counter clerk for my review. 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 Disorder of nail 3075000 8 L60.9 Much improved with assistance of podiatry. Anxiety 34322179 F41.9 Continue sertraline at current dose, can increase dose if anxiety appears to be worsening consistent ly. Folliculitis 56655325 L7 3.9 Essentiall y resolved. Seborrheic keratosis 394 376465 L82.1 Facial lesion is an SK, reassuranc e provided. [id number] FELIBERTO STARKS MD [address] [address] 04/26/2024 12:36:07 04/26/2024 13:48:26 Administration of influenza vaccine 18220418 Z23 Goals Section Goal Description Progress Status Start Date LastModified by Organization Details LastModified Time will be able to admit pt to their services and provide PT/OT and WATER TREATMENT SPECIALIST Waiting on Tarah the guardian to sign the paperwork NoChange active 2023 LUCI SHAFER RN Information not available 01/26/2024 12:02:35 Caregivers will report signs of UTI immediately None Recorded NoChange active 2023 LUCI SHAFER RN Information not available 01/26/2024 12:05:17 Health Concerns Section Related Observation LastModified by Organization Detai ls LastModified Time None Recorded Concern Status LastModified by Organization Details LastModified Time None Recorded Advance Directives Directive None Recorded Payers Encounter Date Sequence Insurance Name Policy Number Policy Sol[place] Covered Member ID Soliman Member ID Guarantor Name 08/02/2023 2 [employer] (MEDICAID) Hollis Colvine [id number] Hollis Ambriz 08/02/2023 1 [place] Hollis Ambriz [id number] Hollis Miller Ambriz 11/07/2023 2 [employer] ([employer]ICA[employer]) Hollis Miller Ambriz [id number] Hollis Miller Ambriz 11/07/2023 1 [place] Hollis Ambriz [id number] Hollis Miller Ambriz 02/03/2024 2 [employer] ([employer]ICA[employer]) Hollis Colvine [id number] Hollis Miller Ambriz 02/03/2024 1 [place] Hollis Ambriz [id number] Hollis Miller Ambriz 04/24/2024 2 [employer] ([employer]ICA[employer]) Hollis Miller Ambriz [id number] Hollis Miller Ambriz 04/24/2024 1 [place] Hollis Miller Ambriz [id number] Hollis Miller Ambriz 04/26/2024 2 [employer] ([employer]ICA[employer]) Hollis Miller Ambriz [id number] Hollis Miller Ambriz 04/26/2024 1 [place] Hollis Colvine [id number] Hollis Ambriz Notes Date Note Type Note Provider Name and Address Organization Details Recorded Time 08/02/2023 text/html David's sister, Princess Clark, is here to gain a better understanding of his condition and what to expect going forward. David is now in a alf. Tarah is very impressed with their support, [...] have monthly catheter changes in Dr. House's office.He seems to be eating okay. No obvious aspiration events. He is getting Thick-It for liquids. Tarah is unaware of any nighttime problems. GIANCARLO LAU MD [address], [place], [address], [facility]. 08/02/2023 17:04:45 11/07/2023 text/html Seen at home wit h two alf providers (Albaro and Saranya), sister Tarah and [...] of meningiomas, specifically R cerebellar meningioma. 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 [...] to keep him mobile. I also suggest WATER TREATMENT SPECIALIST to help adapt his ability to feed [...] refill. FELIBERTO STARKS MD [address], [place], [address], [facility]. 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 OT/PT starting today. WATER TREATMENT SPECIALIST referral had been made before. PT will [...] and then congested cough, went to the [facility] ED on Tuesday. Said he had bronchitis, doing nebs, cough medicine, claritin. Cough is not better. Almost croupy sounding. Saranya listened to his lungs and thought the lower lobes sounded abnormal. His dad is concerned for a skin lesion to his left cheek. Has been there a long time. Wants to make sure it isn't malignant. FELIBERTO STARKS MD [address], [place], [address], [facility]. 02/03/2024 15:40:37 04/24/2024 text/html Seen at home wit h two alf providers (Albaro and Saranya). He is overall [...] of meningiomas, specifically R cerebellar meningioma. 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 [...] aware. FELIBERTO STARKS MD [address], [place], [address], [facility]. 04/25/2024 20:25:12
--- OUTSIDE RECORDS SUMMARY | 2024-09-14 19:25 | XMS_ITS | Encounter Summary ---
[place] [address] Care Team Providers Care 3Rd Grade Reading Teacher Name Role Phone Dimas Lau MD Primary Care Provider Encounter Details Date Type Department Care Team (Late st Contact Info) Description 11/03/2017 [place] [phone] Aida Marcos Social History Tobacco Use Types [...] on filedocumented in this encounter Care Teams 3Rd Grade Reading Teacher Relationship Specialty Start Date End Date Dimas Lau MD [address] [place] [address] PCP - General 06/30/10 documented as of this encounter
--- OUTSIDE RECORDS SUMMARY | 2024-09-14 19:25 | XMS_ITS | Encounter Summary ---
[place] [address] Care Team Providers Care Special Effects Makeup Artist Name Role Phone Dimas Lau MD Primary Care Provider Encounter Details Date Type Department Care Team (Late st Contact Info) Description 12/23/2016 2:50 PM EDT - 12/23/2016 4:10 [place] [address] RESOURCE, ANESTHESIA-NICHOL None MRI WITH ANESTHESIA (WRVU [...] Routine documented in this encounter Care Teams Special Effects Makeup Artist Relationship Specialty Start Date End Date Dimas Lau MD [address] [place] [address] PCP - General 06/30/10 documented as of this encounter
--- OUTSIDE RECORDS SUMMARY | 2024-09-14 19:25 | XMS_ITS | Encounter Summary ---
Author Organization [place] [address] Care Team Providers Care Tugboat Operator Name Role Phone Dimas Lau MD Primary Care Provider [phone] Encounter Details Date Type Department Care Team (Latest Contact Info) Description 04/26/2018 11:03 AM EDT - 04/26/2018 5:52 PM EDT Hospital Encounter [place] [phone] Jerry, Danny Palacios MD [facility] [place] [address] Discharge Disposition: Home Social History Tobacco Use [...] CRNA) documented in this encounter Care Teams Tugboat Operator Relationship Specialty Start Date End Date Dimas Lau MD [address] [place] [address] PCP - General 06/30/10 documented as of this encounter
--- OUTSIDE RECORDS SUMMARY | 2024-09-14 19:25 | XMS_ITS | Encounter Summary ---
[place] [address] Care Team Providers Care Retort Forker Name Role Phone Dimas Lau MD Primary Care Provider Encounter Details Date Type Department Care Team (Late st Contact Info) Description 05/03/2018 Telephone [place] [phone] Catrina Lopez Social History Tobacco Use Types [...] on filedocumented in this encounter Care Teams Retort Forker Relationship Specialty Start Date End Date Dimas Lau MD [address] [place] [address] PCP - General 06/30/10 documented as of this encounter
--- OUTSIDE RECORDS SUMMARY | 2024-09-14 19:25 | XMS_ITS | Encounter Summary ---
[place] [address] Care Team Providers Care Grinder Set Up Operator Name Role Phone Dimas Lau MD Primary Care Provider [phone] 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 * Diagnostic Test (Routine) - Closed Specialty Diagnoses / Procedures Referred By Contac t Referred To Contact Radiology Diagnoses Neurofibromatosis, type 2 Loss of balance Meningioma Procedures MRI Brain With/WO Contrast (GENERIC) Dimas Lau MD [address] [place] [address] [place] [address] Referral ID Status Reason Start Date Expiration Date V isits Requested Visits Authorized [id number] Closed Specialty Service Requested 11/22/2016 11/22/2017 1 1 Reason for Visit * Diagnostic Test (Routine) - Closed Specialty Diagnoses / Procedures Referred By Contac margot Referred To Contact Radiology Diagnoses Neurofibromatosis, type 2 Loss of balance Meningioma Procedures MRI Brain With/WO Contrast (GENERIC) Dimas Lau MD [address] [place] [address] [place] [address] Referral ID Status Reason Start Date Expiration Date V isits Requested Visits Authorized [id number] Closed Specialty Service Requested 11/22/2016 11/22/2017 1 1 Encounter Details Date Type Department Care Team (Latest Contact Info) Description 12/23/2016 2:50 PM EDT - 12/23/2016 11:59 PM EDT Hospital [place] [address] Dimas Lau MD [address] [place] [address] Neurofibromatosis, type 2; Loss of balance; Meningioma [...] mLs documented in this encounter Care Teams Grinder Set Up Operator Relationship Specialty Start Date End Date Dimas Lau MD [address] [place] [address] PCP - General 06/30/10 documented as of this encounter
--- OUTSIDE RECORDS SUMMARY | 2024-09-14 19:25 | XMS_ITS | Encounter Summary ---
Author Organization [facility] [address] Care Team Providers Care Director Of Diagnostic Imaging Name Role Phone Dimas Lau MD Primary Care Provider [phone] Encounter Details Date Type Department Care Team (Late st Contact Info) Description 04/26/2018 1:00 [place] [address] Jerry, Danny Palacios MD [facility] [place] [address] Adwoa Mendez Anesthesia Record Procedure Summary Procedure [...] 1211; metacarpal vein (top of hand), right; mazo-qxx-zokcyn catheter system; 20 gauge, 1 in length; [...] Edwards MD - 04/26/2018 4:54 PM EDT [facility] Department of Anesthesiology Post-procedure Note Patient: Hollis Ambriz Procedure Summary Date Anesthesia Start Anesthesia Stop Room / Location 04/26/18 1300 1629 [facility] ADULT RADIOLOGY / [facility] Procedure Diagnosis Surgeon Responsible Provider MRI WITH ANESTHESIA (WRVU *) (N/A ) (NEUROFIBROMATOSIS) RESOURCE, ANESTHESIA- GUILLERMINA Danny Edwards MD All Anesthesia Providers: Anesthesiologist: Danny Edwards MD EMERGENCY VEHICLE OPERATIONS INSTRUCTOR: Brittney Catherine CRNA Most Recent Vitals: 04/26/18 1630 BP: 107/67 Pulse: Resp: (P) 18 Temp: SpO2: 96% Pain (P) 0 (04/26/18 1625) Patient Location: PACU/[facility] Level of Consciousness: Awake and Alert [...] 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 * Anesthesia Preprocedure Evaluation - [facility], Danny Palacios MD - 04/26/2018 12:27 PM [...] WITH ANESTHESIA performed by Jair, Anesthesia-Guillermina at [facility] ??? PRG UNLISTED MRI PROCEDURE 02/25/2014 MRI WITH ANESTHESIA performed by Resource, Anesthesia-Guillermina at [facility] ??? PRG UNLISTED MRI PROCEDURE N/A 01/06/2015 MRI WITH ANESTHESIA performed by JAIR ANESTHESIA-GUILLERMINA at [facility] ??? PRG UNLISTED MRI PROCEDURE N/A 12/19/2015 MRI WITH ANESTHESIA performed by JAIR, ANESTHESIA-GUILLERMINA at [facility] ??? PRG UNLISTED MRI PROCEDURE N/A 12/23/2016 MRI WITH ANESTHESIA (WRVU *) performed by JAIR ANESTHESIA-GUILLERMINA at [facility] Social History Substance Use Topics ??? [...] immobilty, neurofibromatosis, meningionmas, bilateral accoustic neuromas, and svp digital ad sales shunt. He has screening MRI yearly. [...] risks discussed with patient. Plan discussed with EMERGENCY VEHICLE OPERATIONS INSTRUCTOR. PAT Staff Note documented in this encounter [...] r documented in this encounter Care Teams Director Of Diagnostic Imaging Relationship Specialty Start Date End Date Dimas Lau MD [address] [place] [address] PCP - General 06/30/10 documented as of this encounter
--- OUTSIDE RECORDS SUMMARY | 2024-09-14 19:25 | XMS_ITS | Encounter Summary ---
[place] [address] Care Team Providers Care Interpreter Name Role Phone Dimas Lau MD Primary Care Provider [phone] Encounter Details Date Type Department Care Team (Late st Contact Info) Description 04/26/2018 12:30 PM EDT - 04/26/2018 3:30 [place] [phone] RESOURCE, ANESTHESIA-NICHOL None MRI WITH ANESTHESIA (WRVU [...] CRNA) documented in this encounter Care Teams Interpreter Relationship Specialty Start Date End Date Dimas Lau MD [address] [place] [address] PCP - General 06/30/10 documented as of this encounter
--- OUTSIDE RECORDS SUMMARY | 2024-09-14 19:25 | XMS_ITS | Clinical Summary ---
Author Organization [place] [address] Care Team Providers Care Flatbed Truck Driver Name Role Phone Dimas Lau [...] 10/25/1983 Tetanus/Diphtheria/Pertussis Vaccines (1 - Tdap) 10/24 Pneumoccocal Vaccine: 50+ (1 of 1 - PCV) 2014 Zoster vaccine (1 of 2) 2014 Advance Directive 10/25/2019 Covid-19 Vaccine (1 - 2023-25 season) 2024 Influenza (Flu) vaccine (1 o f 1 - Influenza standard series) 04/08/2024 Medical Devices Implanted Type Area Advance Seal Delivery System Maintainer Device Identifier Shelf Expiration Date Model / Serial / Lot Electronic Engraver Shunt Other Description:IT HELP DESK TECHNICIAN SHUNT PLACED IN 1993. MRI Conditional up to 1.5T. Shraddha Lynn MRI Safety Technologist 11/02/2017 Advance Directives * Full Code (Latest Code Status on File) Date Activated Date Inactivated Comments 12/19/2015 12:19 PM 12/19/2015 4:44 PM Question Answer Comments Does patient have capacity to make decision: Yes Care Teams Flatbed Truck Driver Relationship Specialty Start Date End Date Dimas Lau MD [address] [place] [address] PCP - General 06/30/10
--- OUTSIDE RECORDS SUMMARY | 2024-09-14 19:25 | XMS_ITS | Encounter Summary ---
[place] [address] Care Team Providers Care Charge Entry Clerk Name Role Phone Dimas Lau MD Primary Care Provider [phone] 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 * Diagnostic Test (Routine) - Closed Specialty Diagnoses / Procedures Referred By Contac t Referred To Contact Radiology Diagnoses Loss of balance Procedures MRI Total Spine wwo Contrast Dimas Lau MD [address] [place] [address] [place] [address] Referral ID Status Reason Start Date Expiration Date V isits Requested Visits Authorized [id number] Closed Specialty Service Requested 02/15/2018 02/15/2019 1 1 * Diagnostic Test (Routine) - Specialty Diagnoses / Procedures Referred By Contac t Referred To Contact Radiology Diagnoses Loss of balance Procedures MRI Brain wwo Contrast (Generic) Dimas Lau MD [address] [place] [address] [place] [address] Referral ID Status Reason Start Date Expiration Date Visits Requested Visits Authorized [id number] Specialty Service Requested 02/15/2018 02/15/2019 1 1 Reason for Visit * Diagnostic Test (Routine) - Closed Specialty Diagnoses / Procedures Referred By Contac t Referred To Contact Radiology Diagnoses Loss of balance Procedures MRI Total Spine wwo Contrast Dimas Lau MD [address] [place] [address] [facility] [address] Referral ID Status Reason Start Date Expiration Date V isits Requested Visits Authorized [id number] Closed Specialty Service Requested 02/15/2018 02/15/2019 1 1 Encounter Details Date Type Department Care Team (Latest Contact Info) Description 04/26/2018 12:30 PM EDT - 04/26/2018 11:59 PM EDT Hospital [place] [address] Dimas Lau MD [address] [place] [address] Loss of balance Discharge Disposition: [...] areas of CSF pulsation artifact on axial [id number]. No extra-axial enhancing mass is identified. Lumbar [...] may represent small schwannoma. Dimas Lau MD [facility] MRI ORDERABLES * MRI Brain wwo Contrast [...] areas of CSF pulsation artifact on axial [id number]. No extra-axial enhancing mass is identified. Lumbar [...] mLs documented in this encounter Care Teams Charge Entry Clerk Relationship Specialty Start Date End Date Dimas Lau MD [address] [place] [address] PCP - General 06/30/10 documented as of this encounter
--- OUTSIDE RECORDS SUMMARY | 2024-09-14 19:25 | XMS_ITS | Encounter Summary ---
Author Organization [facility] Address [facility] [place] [address] Care Team Providers Care Automotive Technology Instructor Name Role Phone Dimas Lau MD Primary Care Provider [phone] Encounter Details Date Type Department Care Team (Late st Contact Info) Description 11/01/2017 Orders [place] [phone] Joseline Ward [place] [address] NF2-related schwannomatosis; Acoustic neuroma Social History Tobacco [...] nerves documented in this encounter Care Teams Automotive Technology Instructor Relationship Specialty Start Date End Date Dimas Lau MD [address] [place] [address] PCP - General 06/30/10 documented as of this encounter
--- OUTSIDE RECORDS SUMMARY | 2024-09-14 19:25 | XMS_ITS | Encounter Summary ---
Author Organization [facility] [place] [address] Care Team Providers Care Stretching Machine Operator Name Role Phone Dimas Lau MD Primary Care Provider Encounter Details Date Type Department Care Team (Late st Contact Info) Description 05/04/2018 Telephone [place] [address] Chelsey Hill, RN Social History [...] - 05/04/2018 10:07 AM EDT Brennan from [facility] ([phone]) phoned to inquire if Dr. Dimas Lau [...] on filedocumented in this encounter Care Teams Stretching Machine Operator Relationship Specialty Start Date End Date Dimas Lau MD [address] [place] [address] PCP - General 06/30/10 documented as of this encounter
--- OUTSIDE RECORDS SUMMARY | 2024-09-14 19:25 | XMS_ITS | Encounter Summary ---
[place] [address] Care Team Providers Care Fastener Sewing Machine Operator Name Role Phone Dimas Lau MD Primary Care Provider Encounter Details Date Type Department Care Team (Late st Contact Info) Description 03/17/2018 Telephone [place] [address] Catrina Lopez Social History Tobacco Use Types [...] on filedocumented in this encounter Care Teams Fastener Sewing Machine Operator Relationship Specialty Start Date End Date Dimas Lau MD [address] [place] [address] PCP - General 06/30/10 documented as of this encounter
--- OUTSIDE RECORDS SUMMARY | 2024-09-14 19:25 | XMS_ITS | Encounter Summary ---
[place] [address] Care Team Providers Care Food Production Associate Name Role Phone Dimas Lau MD Primary Care Provider [phone] Encounter Details Date Type Department Care Team (Late st Contact Info) Description 10/27/2017 Telephone [place] [address] Aida Marcos Social History Tobacco Use Types [...] filedocumented in this encounter Care Teams Food Production Associate Relationship Specialty Start Date End Date Dimas Lau MD [address] [place] [address] PCP - General 06/30/10 documented as of this encounter
--- OUTSIDE RECORDS SUMMARY | 2024-09-14 19:25 | XMS_ITS | Encounter Summary ---
[place] [address] Care Team Providers Care Design Transferrer Name Role Phone Dimas Lau MD Primary Care Provider Encounter Details Date Type Department Care Team (Latest Contact Info) Description 12/23/2016 1:39 PM EDT - 12/23/2016 5:19 PM EDT Hospital Encounter [place] [phone] Duncan Aponte MD [facility] DR ANESTHESIOLOGY DEPT [place] [id number] Discharge Disposition: Home Social History Tobacco Use [...] Routine documented in this encounter Care Teams Design Transferrer Relationship Specialty Start Date End Date Dimas Lau MD [address] [place] [address] PCP - General 06/30/10 documented as of this encounter
--- OUTSIDE RECORDS SUMMARY | 2024-09-14 19:25 | XMS_ITS | Encounter Summary ---
[place] [address] Care Team Providers Care Aerospace Engineer Name Role Phone Dimas Lau MD Primary Care Provider Encounter Details Date Type Department Care Team (Late st Contact Info) Description 11/02/2017 Telephone [place] [address] Aida Marcos Social History Tobacco Use Types [...] on filedocumented in this encounter Care Teams Aerospace Engineer Relationship Specialty Start Date End Date Dimas Lau MD [address] [place] [address] PCP - General 06/30/10 documented as of this encounter
--- OUTSIDE RECORDS SUMMARY | 2024-09-14 19:26 | XMS_ITS | Encounter Summary ---
[place] [address] Care Team Providers Care Clinical Laboratory Technologist Name Role Phone Dimas Lau MD Primary Care Provider [phone] 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 * Diagnostic Test (Routine) - Closed Specialty Diagnoses / Procedures Referred By Contac t Referred To Contact Radiology Diagnoses Bilateral acoustic neuromas Procedures MRI Brain With/WO Contrast (GENERIC) Joseline Ward MEASURER [facility] [place] [address] [place] [address] Referral ID Status Reason Start Date Expiration Date V isits Requested Visits Authorized [id number] Closed Specialty Service Requested 11/12/2015 11/11/2016 1 1 Reason for Visit * Diagnostic Test (Routine) - Closed Specialty Diagnoses / Procedures Referred By Contac t Referred To Contact Radiology Diagnoses Bilateral acoustic neuromas Procedures MRI Brain With/WO Contrast (GENERIC) Joseline Ward [facility] [place] [address] [place] [address] Referral ID Status Reason Start Date Expiration Date V isits Requested Visits Authorized [id number] Closed Specialty Service Requested 11/12/2015 11/11/2016 1 1 Encounter Details Date Type Department Care Team (Latest Contact Info) Description 12/19/2015 12:26 PM EDT - 12/19/2015 11:59 PM EDT Hospital [place] [address] Alex Lynn MD [facility] [address] [place] [address] Bilateral acoustic neuromas Discharge Disposition: Home Social [...] mLs documented in this encounter Care Teams Clinical Laboratory Technologist Relationship Specialty Start Date End Date Dimas Lau MD [address] [place] [address] PCP - General 06/30/10 documented as of this encounter
--- OUTSIDE RECORDS SUMMARY | 2024-09-14 19:26 | XMS_ITS | Encounter Summary ---
Author Organization [facility] Address [facility] [place] [address] Care Team Providers Care Order Desk Clerk Name Role Phone Dimas Lau MD Primary Care Provider Encounter Details Date Type Department Care Team (Late st Contact Info) Description 11/12/2015 Orders [place] [phone] Alex Lynn MD [facility] [place] [address] Social History Tobacco Use Types Packs/Day Years [...] on filedocumented in this encounter Care Teams Order Desk Clerk Relationship Specialty Start Date End Date Dimas Lau MD [address] [place], [place] [address] PCP - General 06/30/10 documented as of this encounter
--- OUTSIDE RECORDS SUMMARY | 2024-09-14 19:26 | XMS_ITS | Encounter Summary ---
[place] [address] Care Team Providers Care Evp And Chief Operating Officer Name Role Phone Dimas Lau MD Primary Care Provider Reason for Visit * Reason Onset Date Comments Medical Care Coordination 06/29/2013 Pt laura y called to speak with Claudette to [facility] Encounter Details Date Type Department Care Team (Late st Contact Info) Description 06/29/2013 [place] [phone] Lorrie Hansen MD Medical Care Coordination (Pt very called to speak with Claudette to [facility]) Social History Tobacco Use Types Packs/Day Years Used Date Smoking Tobacco: Never Assessed Sex and Gender Information Value Date Recorded Sex Assigned at Not on file Gender Identity Not on file Sexual Orientation Not on file documented as of this encounter Plan of Treatment Not on file documented as of this encounter Visit Diagnoses Not on filedocumented in this encounter Care Teams Evp And Chief Operating Officer Relationship Specialty Start Date End Date Dimas Lau MD [address] [place] [address] PCP - General 06/30/10 documented as of this encounter
--- OUTSIDE RECORDS SUMMARY | 2024-09-14 19:26 | XMS_ITS | Encounter Summary ---
Author Organization [facility] [place] [address] Care Team Providers Care Manager Talent Name Role Phone Dimas Lau MD Primary Care Provider [phone] Encounter Details Date Type Department Care Team (Latest Contact Info) Description 12/25/2010 9:19 AM EDT - 12/25/2010 11:59 PM EDT Hospital [place] [address] CLINIC, Dimas Vance MD [address] [place] [address] Discharge Disposition: Home Social History [...] documented in this encounter Care Teams Manager Talent Relationship Specialty Start Date End Date Dimas Lau MD [address] [place] [address] PCP - General 06/30/10 documented as of this encounter
--- OUTSIDE RECORDS SUMMARY | 2024-09-14 19:26 | XMS_ITS | Encounter Summary ---
Author Organization [facility] Address [facility] [place] [address] Care Team Providers Care Neon Sign Maker Name Role Phone Dimas Lau MD Primary Care Provider Encounter Details Date Type Department Care Team (Late st Contact Info) Description 02/20/2016 [place] [address] Joseline Ward APRN [facility] [place] [address] Social History Tobacco Use Types Packs/Day Years [...] on filedocumented in this encounter Care Teams Neon Sign Maker Relationship Specialty Start Date End Date Dimas Lau MD [address] [place] [address] PCP - General 06/30/10 documented as of this encounter
--- OUTSIDE RECORDS SUMMARY | 2024-09-14 19:26 | XMS_ITS | Encounter Summary ---
[place] [address] Care Team Providers Care Nitro Worker Name Role Phone Dimas Lau MD Primary Care Provider Encounter Details Date Type Department Care Team (Late st Contact Info) Description 11/28/2012 12:22 PM EDT [place] [phone] Tigist Mac MD McGrath, [facility] [place] [address] Anesthesia Record Procedure Summary Procedure Name Responsible [...] meningiomas presents for MR Brain to R/O PROFESSOR OF BIOSTATISTICS shunt malfunction. Recurrent UTI, finished antibiotic course started 11/09/2012. Neurogenic bladder with need for daily straight caths. Region - Other Informed Consent: Anesthetic plan and risks discussed with mother and patient. Plan discussed with [BLINDMAKER Misc. Assessment: 2008 GETA Mac 3, Gr [...] mL/hr documented in this encounter Care Teams Nitro Worker Relationship Specialty Start Date End Date Dimas Lau MD [address] [place] [address] PCP - General 06/30/10 documented as of this encounter
--- OUTSIDE RECORDS SUMMARY | 2024-09-14 19:26 | XMS_ITS | Encounter Summary ---
Author Organization [facility] [place] [address] Care Team Providers Care Casing Cleaner Name Role Phone Dimas Lau MD Primary Care Provider Encounter Details Date Type Department Care Team (Late st Contact Info) Description 01/06/2015 3:05 [place] [phone] Kishor Gillette MD [facility] [place] [address] Anesthesia Record Procedure Summary Procedure Name Responsible Anesthesiologist Anesthesia Start Time Anesthesia Stop Time MRI WITH ANESTHESIA (WRVU *) (Spine Total) Kihsor Gillette MD 01/06/15 1505 01/06/15 1805 Events [...] 01/06/15; median vein left (underside of arm); uuwe-elz-qcfoge catheter system; 22 gauge, 1 in length; distraction, intradermal injection, tolerated well, appears comfortable; 01/06/15; 1914 (cannula intact, gauze applied) 01/06/15 0000 by Ashley Hall RN 01/06/151914 by Chelsey Arrieta RN (RETIRED) Peripheral IV Line - Single Lumen 01/06/15; 1510; metacarpal vein left (top of hand); blne-xes-vasdbg catheter system; 18 gauge; st. naz; 01/06/15; [...] performed by Geetha Morales at [facility] ??? Unlisted mr procedure 02/25/2014 MRI WITH ANESTHESIA performed by Geetha Morales at [facility] History Substance Use Topics ??? Smoking [...] anesthesia for evaluation of meningiomas, neurofibromas, and SOFTWARE ENGINEERING SPECIALIST shunt. No significant history otherwise. Plan [...] r documented in this encounter Care Teams Casing Cleaner Relationship Specialty Start Date End Date Dimas Lau MD [address] [place] [address] PCP - General 06/30/10 documented as of this encounter
--- OUTSIDE RECORDS SUMMARY | 2024-09-14 19:26 | XMS_ITS | Encounter Summary ---
Author Organization [facility] Address [facility] [place] [address] Care Team Providers Care Sales Merchandiser Name Role Phone Dimas Lau MD Primary Care Provider Encounter Details Date Type Department Care Team (Latest Contact Info) Description 02/17/2012 12:21 PM EDT - 02/17/2012 11:59 PM EDT Hospital Encounter MRI at [facility] [place] [address] CLINIC, Dimas Vance MD [address] [place] [address] Discharge Disposition: Home Social History [...] Diaz RN - 02/14/2012 11:10 AM EDT [facility] NURSING DATABASE Name: YURIY ALCANTAR Date of : 1965 AGE 46 y.o. Address: [address] [place] [address] (home) Mobile: No relevant phone numbers on [...] mg documented in this encounter Care Teams Sales Merchandiser Relationship Specialty Start Date End Date Dimas Lau MD [address] [place] [address] PCP - General 06/30/10 documented as of this encounter
--- OUTSIDE RECORDS SUMMARY | 2024-09-14 19:26 | XMS_ITS | Encounter Summary ---
[place] [address] Care Team Providers Care Artist Agent Name Role Phone Dimas Lau MD Primary Care Provider [phone] Encounter Details Date Type Department Care Team (Late st Contact Info) Description 02/23/2016 External Results [place] [phone] Jane Berrios AUD Social History Tobacco Use [...] on filedocumented in this encounter Care Teams Artist Agent Relationship Specialty Start Date End Date Dimas Lau MD [address] [place] [address] PCP - General 06/30/10 documented as of this encounter
--- OUTSIDE RECORDS SUMMARY | 2024-09-14 19:26 | XMS_ITS | Referral Summary ---
Author Organization [facility] Address [address] [place] [address] Care Team Providers Care Warehouse Team Leader Name Role Phone Dimas Lau MD Primary Care Provider [phone] Social History Tobacco Use Types Packs/Day Years Used Date Smoking Tobacco: Never Assessed Sex and Gender Information Value Date Recorded Sex Assigned at Not on file Legal Sex Male 18:14 EST Gender Identity Not on file Sexual Orientation Not on file Plan of Treatment Not on file Care Teams Warehouse Team Leader Relationship Specialty Start Date End Date Dimas Lau MD [address] [place] [address] PCP - General 06/18/15
--- OUTSIDE RECORDS SUMMARY | 2024-09-14 19:26 | XMS_ITS | Clinical Summary ---
Author Organization [facility] Address [address] [place] [address] Care Team Providers Care Program Support Assistant Name Role Phone Dimas Lau MD Primary Care Provider [phone] Social History Tobacco Use Types Packs/Day Years [...] COVID-19 Vaccine ( season) 2024 Care Teams Program Support Assistant Relationship Specialty Start Date End Date Dimas Lau MD [address] [place] [address] PCP - General 06/18/15
--- OUTSIDE RECORDS SUMMARY | 2024-09-14 19:26 | XMS_ITS | Encounter Summary ---
[place] [address] Care Team Providers Care Gameroom Technician Name Role Phone Dimas Lau MD Primary Care Provider Encounter Details Date Type Department Care Team (Late st Contact Info) Description 02/24/2016 Telephone [place] [address] Yolie Yoo RN Social History [...] on filedocumented in this encounter Care Teams Gameroom Technician Relationship Specialty Start Date End Date Dimas Lau MD [address] [place] [address] PCP - General 06/30/10 documented as of this encounter
--- OUTSIDE RECORDS SUMMARY | 2024-09-14 19:26 | XMS_ITS | Encounter Summary ---
Author Organization [facility] Address [address] [place] [address] Care Team Providers Care Earth Sciences Professor Name Role Phone Dimas Lau MD Primary Care Provider [phone] Encounter Details Date Type Department Care Team (Late st Contact Info) Description 06/25/2021 Lab Requisition [facility] Pathology & Laboratory Medicine - [address] [address] Outr Resulting Lab, Provider Social History Tobacco [...] MICROBIOLOGY - GENER AL ORDERABLES Final Result [facility] [address] [place] [address] * COVID-19 TESTING (06/25/2021 10:50 EST) COVID-19 rt-PCR Result Negative Negative 06/26/2021 11:[address] [facility] Comment: This test has [...] history, and epidemiological information. Performed on the Valencell Fusion instrument Performing Lab [place] [facility] Lab 06/26/2021 11:[address] [facility] Swab 06/25/2021 10:5 0 EST 06/25/2021 22:26 EST us Provider Outr Resulting Lab MICROBIOLOGY - GENER AL ORDERABLES Final Result [facility] [address] [place] [address] documented in this encounter Visit Diagnoses Not on filedocumented in this encounter Care Teams Earth Sciences Professor Relationship Specialty Start Date End Date Dimas Lau MD [address] [place], [place] [address] PCP - General 06/18/15 documented as of this encounter
--- OUTSIDE RECORDS SUMMARY | 2024-09-14 19:26 | XMS_ITS | Encounter Summary ---
Author Organization [facility] Address [facility] [place] [address] Care Team Providers Care Drill Operator Automatic Name Role Phone Dimas Lau MD Primary Care Provider [phone] Reason for Visit * Reason Comments Acoustic Neuroma Bilateral , ref by N euro Encounter Details Date Type Department Care Team (Late st Contact Info) Description 02/13/2016 1:00 PM EDT Office Visit Otolaryngology at [facility] [place] [address] Perico Ball MD [facility] DR OTOLARYNGOLOGY [place] [id number] Acoustic neuroma syndrome, right; Meningioma of cerebellum; [...] chromosome documented in this encounter Care Teams Drill Operator Automatic Relationship Specialty Start Date End Date Dimas Lau MD [address] [place] [address] PCP - General 06/30/10 documented as of this encounter
--- OUTSIDE RECORDS SUMMARY | 2024-09-14 19:26 | XMS_ITS | Encounter Summary ---
[place] [address] Care Team Providers Care Programming Instructor Name Role Phone Dimas Lau MD Primary Care Provider Encounter Details Date Type Department Care Team (Late st Contact Info) Description 11/28/2012 12:05 PM EDT - 11/28/2012 1:18 [place] [phone] RESOURCE, ANESTHESIA-NICHOL None MRI WITH ANESTHESIA (WRVU [...] 5:42 PM EDTAssociated Order(s): SCAN DOC: INSURANCE COUNSEL documented in this encounter Miscellaneous Notes * Miscellaneous - Provider, Scanning - 11/28/2012 6:06 PM EDT * Miscellaneous - Provider, Scanning - 11/28/2012 11:06 AM EDT documented in this encounter Plan of Treatment Not on file documented as of this encounter Procedures Procedure Name Priority Date/Time Associated Diagnosis Comments MRI WITH ANESTHESIA (WRVU *) 11/28/2012 8:05 PM EDT Neurofibromatosis w/mengioma; ? vp business development shunt malformation INSURANCE COUNSEL SCAN 11/28/2012 5:42 PM EDT documented in this encounter Results * SCAN DOC: INSURANCE COUNSEL (11/28/2012 5:42 PM EDT) Anatomical Region Laterality [...] CRNA) documented in this encounter Care Teams Programming Instructor Relationship Specialty Start Date End Date Dimas Lau MD [address] [place] [address] PCP - General 06/30/10 documented as of this encounter
--- OUTSIDE RECORDS SUMMARY | 2024-09-14 19:26 | XMS_ITS | Encounter Summary ---
Author Organization [facility] Address [facility] [place] [address] Care Team Providers Care Vp Transportation Name Role Phone Dimas Lau MD Primary Care Provider [phone] Encounter Details Date Type Department Care Team (Late st Contact Info) Description 12/13/2008 Orders Only [place] [address] Deshawn Mcgregor MD [facility] [place] [address] Social History Tobacco Use Types Packs/Day Years [...] 8:02 PM EDT) Surgical Pathology Report [id number] ? Location: [facility] The signing pathologist has (i) [...] CCB 12/18/08 Verified by: ? Black DO, Mairzol C. ?Pathologist ?(Electronic Signature) The attending pathologist whose signature appears on this report has reviewed all diagnostic slides and has edited the gross and/or microscopic portion of the report in rendering the final pathologic diagnosis. [facility] 12/13/2008 8:02 PM EDT Deshawn Mcgregor MD PATHOLOGY/CYTOLOGY ORDERABLES Performing Organization Address City/State/[facility] [place] Phone Number [facility] documented in this encounter Visit Diagnoses Not on filedocumented in this encounter Care Teams Vp Transportation Relationship Specialty Start Date End Date Dimas Lau MD [address] [place] [address] PCP - General 06/30/10 documented as of this encounter
--- OUTSIDE RECORDS SUMMARY | 2024-09-14 19:26 | XMS_ITS | Encounter Summary ---
Author Organization [facility] [place] [address] Care Team Providers Care Communications Programmer Name Role Phone Dimas Lau MD Primary Care Provider Encounter Details Date Type Department Care Team (Late st Contact Info) Description 02/25/2014 2:14 PM EDT - 02/25/2014 6:15 PM EDT Hospital Encounter [place] [address] RESOURCE, ANESTHESIA-NICHOL Boyd Marlow MD Discharge Disposition: [...] (New Bag - Prov ider: Cheyanne Marcial, RN)8486 (New Bag - Provider: Natalie Carvajal, KENNEDY - Comment: BP low continue w/IVF until pt. awake and alert) PRN Medication Order 02/23/2014 02/24/2014 02/25/2014 gadopentetate dimeglumine (MAGNEVIST) injection 15 mL (COMPLETED) 15 mL, Intravenous, ONCE PRN, Per Protocol, Starting on Tue02/25/14 at 1604, 1 dose, Until Tue02/25/14 at 1609 1609 (Given - Provid er: Valentina Aleman) documented in this encounter Care Teams Communications Programmer Relationship Specialty Start Date End Date Dimas Lau MD [address] [place] [address] PCP - General 06/30/10 documented as of this encounter
--- OUTSIDE RECORDS SUMMARY | 2024-09-14 19:26 | XMS_ITS | Encounter Summary ---
[place] [address] Care Team Providers Care Corporate Counsel Name Role Phone Dimas Lau MD Primary Care Provider [phone] Encounter Details Date Type Department Care Team (Latest Contact Info) Description 11/28/2012 10:31 AM EDT - 11/28/2012 3:20 PM EDT Hospital Encounter [place] [address] RESOURCE, ANESTHESIA-NICHOL Tigist Mcclain MD Discharge Disposition: [...] 11/28/2012 5:42 PM EDTAssociated Order(s): SCAN DOC: JUNIOR PROGRAMMER ANALYST documented in this encounter Miscellaneous Notes * Miscellaneous - Provider, Scanning - 11/28/2012 6:06 PM EDT * Miscellaneous - Provider, Scanning - 11/28/2012 11:06 AM EDT documented in this encounter Plan of Treatment Not on file documented as of this encounter Procedures Procedure Name Priority Date/Time Associated Diagnosis Comments MRI WITH ANESTHESIA (WRVU *) 11/28/2012 8:05 PM EDT Neurofibromatosis w/mengioma; ? vp public relations shunt malformation JUNIOR PROGRAMMER ANALYST SCAN 11/28/2012 5:42 PM EDT documented in this encounter Results * SCAN DOC: JUNIOR PROGRAMMER ANALYST (11/28/2012 5:42 PM EDT) Anatomical Region Laterality [...] CRNA) documented in this encounter Care Teams Corporate Counsel Relationship Specialty Start Date End Date Dimas Lau MD [address] [place] [address] PCP - General 06/30/10 documented as of this encounter
--- OUTSIDE RECORDS SUMMARY | 2024-09-14 19:26 | XMS_ITS | Encounter Summary ---
[place] [address] Care Team Providers Care Asset Protection Officer Name Role Phone Dimas Lau MD Primary Care Provider Encounter Details Date Type Department Care Team (Late st Contact Info) Description 02/25/2014 3:38 [place] [phone] Boyd Joaquin MD Gaudette, Katherine A Anesthesia [...] 1453; metacarpal vein right (top of hand); gque-inv-dpnaak catheter system; 20 gauge, 1 in length; [...] WITH ANESTHESIA performed by Christine Morales-Guillermina at [facility] [place] History Substance Use Topics ??? [...] normal Dental Assessment: Comment: Overall poor dentician [facility] Assessment: IV access: Peripheral line Anesthesia Plan: ASA 2 general, with a(n) intravenous induction Patient is a 48 yo male presenting for MRI w/ anesthesia for evaluation of meningiomas, neurofibromas, and HOT CAR OPERATOR shunt. No significant history otherwise. Plan MAC w/ propofol gtt. Region - Other Informed Consent: Anesthetic plan and risks discussed with patient and mother. Use of blood products discussed with patient and mother whom consented to blood products. Plan discussed with attending. [facility]. Assessment: documented in this encounter Plan of [...] r documented in this encounter Care Teams Asset Protection Officer Relationship Specialty Start Date End Date Dimas Lau MD [address] [place] [address] PCP - General 06/30/10 documented as of this encounter
--- OUTSIDE RECORDS SUMMARY | 2024-09-14 19:26 | XMS_ITS | Encounter Summary ---
Author Organization [facility] [place] [address] Care Team Providers Care Head Wood Grinder Name Role Phone Dimas Lau MD Primary Care Provider Encounter Details Date Type Department Care Team (Latest Contact Info) Description 11/28/2012 12:51 PM EDT - 11/28/2012 11:59 PM EDT [place] [address] CLINIC, Dimas Vance MD [address] [place] [address] Discharge Disposition: Home Social [...] IN KNOWN MENINGIOMAS/ACUSTIC NEUROMAS ? EVIDENCE FOR LIBRARY AIDE SHUNT MALFUNCTION Comparison MR of the brain [...] reviewed by the attending Procedure Note Quinn Gacria MD - 11/28/2012 Examination MR BRAIN W/WO CONTRAST/ANES Clinical History NEUROFIBROMATOSIS/PROLONGED DISTRESS BEHAVIORS (NON-VERBAL)/AGITATION ? ANY CHANGE IN KNOWN MENINGIOMAS/ACUSTIC NEUROMAS ? EVIDENCE FOR LIBRARY AIDE SHUNT MALFUNCTION Comparison MR of the brain [...] on filedocumented in this encounter Care Teams Head Wood Grinder Relationship Specialty Start Date End Date Dimas Lau MD [address] [place] [address] PCP - General 06/30/10 documented as of this encounter
--- OUTSIDE RECORDS SUMMARY | 2024-09-14 19:26 | XMS_ITS | Encounter Summary ---
Author Organization [facility] Address [address] [place] [address] Care Team Providers Care Literacy Consultant Name Role Phone Unavailable Primary Care Provider Unavailabl e Encounter Details Date Type Department Care Team (Late st Contact Info) Description 06/07/2006 Results Only [facility] - Maple conversion [address] [place] [address] Boyd Márquez, DO [address] [place] [address] Social History Tobacco Use Types [...] ? YURIY ALCANTAR ? Accession #: ? [id number] ? : ? 1965 (Age: 40) ??M [...] specimen is entirely submitted as (F). ??(Sher Haile/[facility] End of Report SULEMA GONZÁLES 06/07/2006 06/08/2006 10: 26 EST us Boyd Márquez DO PATHOLOGY ORDERABLES Fi nal Result SULEMA GONZÁLES [address] [place] [address] documented in this encounter Visit Diagnoses Not on filedocumented in this encounter
--- OUTSIDE RECORDS SUMMARY | 2024-09-14 19:26 | XMS_ITS | Encounter Summary ---
Author Organization [facility] Address [address] [place] [address] Care Team Providers Care Bed Machine Operator Name Role Phone Unavailable Primary Care Provider Unavailabl e Encounter Details Date Type Department Care Team (Latest Contact Info) Description 06/02/2001 9:29 EDT - 06/02/2001 11:59 EDT Hospital Encounter [address] [address] Bishop Cristina, YARITZA [address] [place] [address] Discharge Disposition: Auto Discharge Social History Tobacco [...]
--- OUTSIDE RECORDS SUMMARY | 2024-09-14 19:26 | XMS_ITS | Encounter Summary ---
[place] [address] Care Team Providers Care Specialist Physician Name Role Phone Dimas Lau MD Primary Care Provider [phone] Encounter Details Date Type Department Care Team (Late st Contact Info) Description 06/27/2013 Abstract [place] [phone] Lorrie Hansen MD Social History Tobacco Use [...] on filedocumented in this encounter Care Teams Specialist Physician Relationship Specialty Start Date End Date Dimas Lau MD [address] [place] [address] PCP - General 06/30/10 documented as of this encounter
--- OUTSIDE RECORDS SUMMARY | 2024-09-14 19:26 | XMS_ITS | Encounter Summary ---
[place] [address] Care Team Providers Care Purse Seiner Name Role Phone Dimas Lau MD Primary Care Provider [phone] Encounter Details Date Type Department Care Team (Late st Contact Info) Description 12/25/2010 9:20 AM EDT - 12/25/2010 11:59 PM EDT Hospital [place] [phone] Social History Tobacco Use Types Packs/Day Years [...] Shukla RN - 12/22/2010 10:21 AM EDT [facility] NURSING DATABASE Name: YURIY ALCANTAR Date of : 1965 Address: [address] [place] [address] (home) Referring Provider: Dimas Lau Reason for Visit: MRI with IV sedation Allergies Allergen Reactions ??? Carbamazepine CIS - diarrhea ??? Sulfa (Sulfonamide Antibiotics) CIS - Nausea/Vomiting ??? 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
--- OUTSIDE RECORDS SUMMARY | 2024-09-14 19:26 | XMS_ITS | Encounter Summary ---
[place] [address] Care Team Providers Care Woodworking Bench Carpenter Name Role Phone Dimas Lau MD Primary Care Provider Encounter Details Date Type Department Care Team (Late st Contact Info) Description 12/19/2015 12:49 PM ED[place] [address] Stefan Hatfield MD [facility] [place] [address] Alexsandra Van CRNA [facility] [place] [address] Anesthesia Record Procedure Summary Procedure Name Responsible [...] stop data 1402 Transport Transport to [facility] 1407 Recovery or ICU Handoff Giovanna [...] 1245; median vein right (underside of arm); lxts-idz-jrqspx catheter system; 22 gauge, 1 in length; [...] Hatfield MD - 12/19/2015 4:10 PM EDT [facility] Department of Anesthesiology Post-procedure Note Patient: Hollis Ambriz Procedure Summary Date Anesthesia Start Anesthesia Stop Room / Location 12/19/15 [id number] [facility] ADULT RADIOLOGY / [facility] [place] Procedure Diagnosis Surgeon Responsible Provider MRI WITH ANESTHESIA (N/A Brain) (BILATERAL ACOUSTIC NEUROMAS; NF, BILATERAL ACOUSTIC NEUROMA, MULTIPLE MENINGIOMAS, EVALUATE FOR CHANGE; IAC PROTOCAL FOR SKULL BASE ) RESOURCE, ANESTHESIA-Stefan Zapien MD All Anesthesia Providers: Anesthesiologist: Stefan Hatfield MD LOSS PREVENTION AUDITOR: Lit Bradley CRNA Last (1hr) Vitals: BP [...] WITH ANESTHESIA performed by Jair Anesthesia-Guillermina at [facility] ??? Unlisted mr procedure 02/25/2014 MRI WITH ANESTHESIA performed by Jair, Anesthesia-Guillermina at [facility] ??? Unlisted mr procedure N/A 01/06/2015 MRI WITH ANESTHESIA performed by JAIR, ANESTHESIA-GUILLERMINA at [facility] History Substance Use Topics ??? Smoking status: [...] to evaluate meningionmas, bilateral accoustic neuromas, vp site shunt, neurofibromatoma Has screening MRI yearly Has [...] legal guardian and mother. Plan discussed with LOSS PREVENTION AUDITOR. PAT Staff Note documented in this encounter [...] hr documented in this encounter Care Teams Woodworking Bench Carpenter Relationship Specialty Start Date End Date Dimas Lau MD [address] [place] [address] PCP - General 06/30/10 documented as of this encounter
--- OUTSIDE RECORDS SUMMARY | 2024-09-14 19:26 | XMS_ITS | Encounter Summary ---
Author Organization [facility] Address [facility] [place] [address] Care Team Providers Care Supervisor Maple Products Name Role Phone Dimas Lau MD Primary Care Provider Encounter Details Date Type Department Care Team (Late st Contact Info) Description 02/13/2016 1:00 PM EDT Office Visit [place] [address] Joseline Ward APRN [facility] [place] [address] NF2 (neurofibromatosis 2); Cerebral meningioma; Left acoustic [...] was found in association with his Ring [id number] to have a neurofibromatosis type-II syndrome. He [...] of a prior meningioma, and placement of GROUP SALES REPRESENTATIVE shunt due to hydrocephalus following surgery. ROS: [...] nerves documented in this encounter Care Teams Supervisor Maple Products Relationship Specialty Start Date End Date Dimas Lau MD [address] [place] [address] PCP - General 06/30/10 documented as of this encounter
--- OUTSIDE RECORDS SUMMARY | 2024-09-14 19:26 | XMS_ITS | Encounter Summary ---
[place] [address] Care Team Providers Care Solar Project Engineer Name Role Phone Dimas Lau MD Primary Care Provider Encounter Details Date Type Department Care Team (Late st Contact Info) Description 01/06/2015 2:50 PM EDT - 01/06/2015 4:50 [place] [phone] RESOURCE, ANESTHESIA-NICHOL None MRI WITH ANESTHESIA (WRVU [...] Active and Recently Administered Medications Care Teams Solar Project Engineer Relationship Specialty Start Date End Date Dimas Lau MD [address] [place] [address] PCP - General 06/30/10 documented as of this encounter
--- OUTSIDE RECORDS SUMMARY | 2024-09-14 19:26 | XMS_ITS | Encounter Summary ---
Author Organization [facility] Address [facility] [place] [address] Care Team Providers Care Fitness Coach Name Role Phone Dimas Lau MD Primary Care Provider [phone] Encounter Details Date Type Department Care Team (Latest Contact Info) Description 01/06/2015 2:50 PM EDT - 01/06/2015 11:59 PM EDT Hospital Encounter MRI at [facility] [place] [address] CLINIC, Denis Durham MD [facility] [address] Discharge Disposition: Home Social History Tobacco Use [...] mLs documented in this encounter Care Teams Fitness Coach Relationship Specialty Start Date End Date Dimas Lau MD [address] [place] [address] PCP - General 06/30/10 documented as of this encounter
--- OUTSIDE RECORDS SUMMARY | 2024-09-14 19:26 | XMS_ITS | Encounter Summary ---
[place] [address] Care Team Providers Care Automatic Drilling Machine Operator Name Role Phone Dimas Lau MD Primary Care Provider Encounter Details Date Type Department Care Team (Latest Contact Info) Description 12/19/2015 11:17 AM EDT - 12/19/2015 2:43 PM EDT Hospital Encounter [place] [phone] Stefan Mack MD [facility] [place] [address] Discharge Disposition: Home Social History Tobacco Use [...] RN) documented in this encounter Care Teams Automatic Drilling Machine Operator Relationship Specialty Start Date End Date Dimas Lau MD [address] [place] [address] PCP - General 06/30/10 documented as of this encounter
--- OUTSIDE RECORDS SUMMARY | 2024-09-14 19:26 | XMS_ITS | Encounter Summary ---
[place] [address] Care Team Providers Care Helper Maintenance Cleaning Name Role Phone Dimas Lau MD Primary Care Provider 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 * Diagnostic Test (Routine) - Closed Specialty Diagnoses / Procedures Referred By Contac t Referred To Contact Radiology Diagnoses Bilateral acoustic neuromas Procedures MRI Brain With/WO Contrast (GENERIC) Joseline Ward APRN [facility] [place] [address] [place] [address] Referral ID Status Reason Start Date Expiration Date V isits Requested Visits Authorized [id number] Closed Specialty Service Requested 11/12/2015 11/11/2016 1 1 Encounter Details Date Type Department Care Team (Late st Contact Info) Description 11/12/2015 Orders [place] [address] Joseline Ward CARBURETOR REPAIRER [facility] [address] Bilateral acoustic neuromas Social History Tobacco Use [...] nerves documented in this encounter Care Teams Helper Maintenance Cleaning Relationship Specialty Start Date End Date Dimas Lau MD [address] [place] [address] PCP - General 06/30/10 documented as of this encounter
--- OUTSIDE RECORDS SUMMARY | 2024-09-14 19:26 | XMS_ITS | Encounter Summary ---
[place] [address] Care Team Providers Care Phone Screener Name Role Phone Dimas Lau MD Primary Care Provider Encounter Details Date Type Department Care Team (Late st Contact Info) Description 02/25/2014 3:30 PM EDT - 02/25/2014 4:30 [place] [address] RESOURCE, ANESTHESIA-NICHOL None MRI WITH ANESTHESIA (WRVU [...] Aleman) documented in this encounter Care Teams Phone Screener Relationship Specialty Start Date End Date Dimas Lau MD [address] [place] [address] PCP - General 06/30/10 documented as of this encounter
--- OUTSIDE RECORDS SUMMARY | 2024-09-14 19:26 | XMS_ITS | Encounter Summary ---
[place] [address] Care Team Providers Care Marketing Strategy Analyst Name Role Phone Dimas Lau MD Primary Care Provider Encounter Details Date Type Department Care Team (Late st Contact Info) Description 04/20/2013 [place] [phone] Lorrie Hansen MD Social History Tobacco Use [...] on filedocumented in this encounter Care Teams Marketing Strategy Analyst Relationship Specialty Start Date End Date Dimas Lau MD [address] [place] [address] PCP - General 06/30/10 documented as of this encounter
--- OUTSIDE RECORDS SUMMARY | 2024-09-14 19:26 | XMS_ITS | Encounter Summary ---
[place] [address] Care Team Providers Care Appliance Tester Name Role Phone Dimas Lau MD Primary Care Provider Encounter Details Date Type Department Care Team (Late st Contact Info) Description 02/13/2016 11:00 AM EDT Office Visit Audiology at [address] [address] Jane Berrios AUD Bilateral acoustic neuromas; Unspecified [...] - 02/13/2016 11:27 [place] [address] Hollis Ambriz, 50 y.o., was seen on 02/14/2016 for an audiologic evaluation in conjunction with in Otolaryngology. Please refer to the scanned audiogram listed under Scanned Documents in Chart Review for findings, impressions and recommendations. NOTE: Attempted picture pointing for SRT but was unsuccessful. Enclosure: [place] [address] documented in this encounter Plan of Treatment Not on file documented as of this encounter Visit Diagnoses Diagnosis Bilateral acoustic neuromas Benign neoplasm of cranial nerves Unspecified hearing loss, bilateral documented in this encounter Care Teams Appliance Tester Relationship Specialty Start Date End Date Dimas Lau MD [address] [place] [address] PCP - General 06/30/10 documented as of this encounter
--- OUTSIDE RECORDS SUMMARY | 2024-09-14 19:26 | XMS_ITS | Encounter Summary ---
[place] [address] Care Team Providers Care Senior Analytical Chemist Name Role Phone Dimas Lau MD Primary Care Provider Encounter Details Date Type Department Care Team (Late st Contact Info) Description 12/19/2015 12:30 PM EDT - 12/19/2015 1:50 [place] [address] RESOURCE, ANESTHESIA-NICHOL None MRI WITH ANESTHESIA (WRVU [...] RN) documented in this encounter Care Teams Senior Analytical Chemist Relationship Specialty Start Date End Date Dimas Lau MD [address] [place] [address] PCP - General 06/30/10 documented as of this encounter
--- OUTSIDE RECORDS SUMMARY | 2024-09-14 19:26 | XMS_ITS | Encounter Summary ---
Author Organization [facility] [place] [address] Care Team Providers Care Hydroelectric Station Operator Name Role Phone Dimas Lau MD Primary Care Provider [phone] Encounter Details Date Type Department Care Team (Latest Contact Info) Description 01/06/2015 1:53 PM EDT - 01/06/2015 7:27 PM EDT Hospital Encounter [place] [phone] RESOURCE, ANESTHESIA-NICHOL Kishor Candelario MD [facility] [place] [address] Discharge Disposition: Home Social History Tobacco Use [...] Active and Recently Administered Medications Care Teams Hydroelectric Station Operator Relationship Specialty Start Date End Date Dimas Lau MD [address] [place] [address] PCP - General 06/30/10 documented as of this encounter
== END 2024-09-14 19:23 | disposition home or self-care (01) ==
LOC: LBN 19:22
PROVIDERS: PCP Family Medicine; Visit Provider Nurse Practitioner Family
DX: B96.5 Pseudomonas (aeruginosa) (mallei) (pseudomallei) as the cause of diseases classified elsewhere (principal)
CPT/HCPCS: 87077; 81003; 81015; 87086; 87186

== ENCOUNTER 2025-03-14 12:26 | Inpatient (IN) | payer MEDICARE, MEDICAID, SELFPAY ==
[2025-03-14 12:30] VITALS: BP 129/80; PULSE 60; TEMP 36.9; O2SAT 98
[2025-03-14 12:36] VITALS: BP 129/80; PULSE 60; RESP 18; TEMP 36.8; O2SAT 98
--- NOTE | 2025-03-14 13:00 | DI.US_ITS ---
Exam(s) US SCROTUM EXAM: US SCROTUM CLINICAL HISTORY: Scrotal swelling and erytehma. TECHNIQUE: Scrotal ultrasound performed using grayscale, color-flow and spectral Doppler analysis. COMPARISON: CT CT RENAL COLIC WO from 05/21/[address] ABDOMEN PELVIS W from 03/14/2025 FINDINGS: Right testicle: 3.6 x 2.1 x 2.1 cm Echogenicity: There is heterogeneity of the right testicle. There is increased blood flow throughout the right testicle. Contour: Smooth. Mass: None seen. Microlithiasis: None. Hydrocele: There is a moderate hydrocele measuring 4.5 x 1.6 x 4.5 cm. There are septations internally. Variocele: None. Hernia: No peristalsing bowel loop identified. Epididymis: The epididymis is heterogeneous and enlarged. There is marked increased blood flow to the right epididymis. There is a complex 1.8 x 1.3 x 2.2 cm area within the epididymis which may represent an developing abscess. Left testicle: The left testicle is absent. DOPPLER: Color: Increased blood flow to both the right testicle and the heterogeneous right epididymis. IMPRESSION: 1. Findings suggestive of right epididymal orchitis. There is a heterogeneous area measuring 2.2 cm within the epididymal tail. A developing abscess should be considered. 2. Right septated hydrocele. 3. Absent left testicle. 4. Findings were discussed with Dr. Wooten at 2:55 p.m. on 03/14/2025. DATA REPOSITORY:
--- NOTE | 2025-03-14 13:00 | DI.CT_ITS ---
Exam(s) CT ABDOMEN PELVIS W EXAM: CT ABDOMEN PELVIS W CLINICAL HISTORY: rigid abdomen and diarrhea. TECHNIQUE: Imaging Protocol: Axial computed tomography images with coronal and sagittal reformatted images were created and reviewed CONTRAST MATERIAL: Intravenous: Omnipaque-350 100cc Oral: None COMPARISON: CT CT RENAL COLIC WO from 05/21/2024 FINDINGS: VISUALIZED LUNG BASES: There is some infiltrate in both lung bases again noted exhibiting minimal change from 05/21/2024. There are no pleural effusions.. ABDOMEN: The ventriculoperitoneal shunt is again noted. There is no ascites at this time. LIVER: There are no focal hepatic lesions evident. No dilated intrahepatic ducts. GALLBLADDER/BILIARY: No obvious gallbladder pathology. CBD is not dilated. PANCREAS: No evidence of pancreatic mass nor dilatation of the pancreatic duct. SPLEEN: Spleen is not enlarged. No obvious intrasplenic lesions. Splenic and portal veins are patent. ADRENALS: There are no significant adrenal masses. KIDNEYS:There few small benign cysts in the kidneys, the largest in the midpole of the right kidney and measuring 1.8 cm. These do not require further imaging workup. There are no solid renal masses. There are no radiopaque renal calculi. There is an extrarenal pelvis on the left side again noted, similar to previous. No true hydronephrosis. No hydroureter. There is Li catheter in the urinary bladder and the bladder wall is diffusely thickened.. ABDOMINAL AORTA: Abdominal aorta is not enlarged. LYMPH NODES:There is no retroperitoneal nor paraaortic adenopathy. ABDOMINAL WALL: No evidence of significant anterior abdominal wall nor inguinal hernia. GI: The entire colon is distended with air and fecal material down to the rectum. There is interposition of the right-side of colon between the hemidiaphragm and the liver, similar to previous. The diameter of the redundant sigmoid is up to 9 cm. There is some abnormal mural thickening of the level the rectum. Requires endoscopy. PELVIS: GI: No evidence of appendicitis.No evidence of sigmoid diverticulitis. LYMPH NODES: There is no intrapelvic nor inguinal adenopathy. REPRODUCTIVE: There is a right-sided hydrocele and there appears to be a mass intimately related to the right testicle, measuring approximately 1.9 x 1.4 cm. The opposite-left testicle is not visualized in the left hemiscrotum. URINARY BLADDER: Contains Li catheter. Wall the urinary bladder is diffusely thickened most probably cystitis. OSSEOUS: No fractures and no significant osseous lesions. Sacroiliac joints appear unremarkable. IMPRESSION: 1. There is significant distension of the entire large bowel and redundant sigmoid. The wall of the rectum is thickened. Endoscopy recommended to rule out malignancy at this level. The diameter of the redundant sigmoid measures up to 9 cm. No pneumatosis at this time. 2. Small-bowel loops exhibit upper normal diameters. 3. Li catheter in place but wall the urinary bladder is uniformly thickened most probably cystitis. 4. Ventriculoperitoneal shunt again noted. There is no ascites in the abdomen. 5. There is a hypodense mass associated with the right testicle either an exophytic mass or possibly mass or abscess in the epididymis of the right testicle. The opposite-left testicle is not seen and may be surgically absent or nondistended. If nondistended than it is atrophic as it is not seen in the inguinal canal. Called by myself to ER physician on 03/14/2025 at 3:18 p.m. RADIATION DOSE DELIVERED: 695.75mGy.cm Total DLP DATA REPOSITORY: All CT scans at this facility are submitted to the National Radiology Data Registry (NRDR) Dose Index Registry (DIR) with the [employer] (ACR). RADIATION OPTIMIZATION: All CT scans at this facility use at least one of these dose optimization techniques: automated exposure control; mA and/or kV adjustment per patient size (includes targeted exams where dose is matched to clinical indication); or iterative reconstruction.
--- NOTE | 2025-03-14 13:08 | W.ED.GENAD ---
Discharge Plan Disposition Patient Disposition: Admit to [facility] Discharge Details Primary Care Provider: Freida Starks ED Provider: Alex Wooten Home Meds and New Rx's Prescriptions: No Action loratadine 10 mg tablet 10 mg PO DAILY clotrimazole 1 % cream 1 applic topical TID PRN PRN (Reason: rash) Qty: 60 0RF ketoconazole 2 % cream 1 applic topical DAILY Qty: 120 6RF Rx Instructions: Apply to toenails once daily polyethylene glycol 3350 [GlycoLax] 527 GM powder 17 g PO DAILY lorazepam 1 mg tablet 1 mg PO Q4H PRN (Reason: anxiety, dyspnea, nausea) Qty: 7 2RF Rx Instructions: hospice morphine concentrate 100 mg/5 mL (20 mg/mL) solution See Rx Instructions PO Q1H MDD 500 mg PRN (Reason: pain) Qty: 30 0RF Rx Instructions: 0.25-1.0 ml orally every 1 hour PRN; HOSPICE sertraline 50 mg tablet 50 mg PO DAILY Patient Comments: TAKE ONE TABLET BY MOUTH EVERY DAY bisacodyl [Dulcolax (bisacodyl)] 10 mg Suppository 10 mg MT DAILY potassium chloride 10 mEq capsule, extended release 10 meq PO BID Patient Comments: TAKE ONE CAPSULE BY MOUTH TWICE A DAY cholecalciferol (vitamin D3) [Vitamin D3] 25 mcg (1,000 unit) capsule 1,000 unit PO DAILY Metamucil 3.4 gram/5.4 gram powder 2 tsp PO ONCE HPI General Date/Time Provider Initiated Documentation: 03/14/25 12:45. HPI Narrative: 59-year-old male with a past medical history of developmental delay, is currently under hospice care, history of undescended left testes, nonverbal status, chronic indwelling Li catheter, presents for evaluation of multiple plaints. As per patient's nursing staff, they note that over the past 2 to 3 days his scrotum has become red swollen, although they are unable to tell if he is having pain as he is nonverbal and reportedly has been stoic in the past during other instances of pain. They also note that last night his abdomen became rigid, although they deny any associated nausea or vomiting. They do note chronic diarrhea for the past 3 months, which is described as liquid brown stool, without any bleeding or mucus. They deny associated fevers, chills or any other new or concerning symptoms. Related Data Home Medications ?Medication ?Instructions ?Recorded ?Confirmed polyethylene glycol 3350 17 17 g PO DAILY 08/25/15 03/14/25 gram/dose oral powder (GlycoLax) bisacodyl 10 mg rectal suppository 10 mg MT DAILY 04/26/19 03/14/25 (Dulcolax (bisacodyl)) clotrimazole 1 % topical cream 1 applic topical TID PRN PRN rash 04/27/21 03/14/25 #60 grams ketoconazole 2 % topical cream 1 applic topical DAILY #120 grams 02/22/24 03/14/25 sertraline 50 mg tablet 50 mg PO DAILY 05/21/24 03/14/25 loratadine 10 mg tablet 10 mg PO DAILY 06/01/24 03/14/25 lorazepam 1 mg tablet 1 mg PO Q4H PRN anxiety, dyspnea, 08/14/24 03/14/25 nausea #7 tabs morphine concentrate 100 mg/5 mL See Rx Instructions PO Q1H PRN 01/30/25 03/14/25 (20 mg/mL) oral solution pain #30 mL cholecalciferol (vitamin D3) 25 1,000 unit PO DAILY 03/14/25 03/14/25 mcg (1,000 unit) capsule (Vitamin D3) potassium chloride 10 mEq 10 meq PO BID 03/14/25 03/14/25 capsule,extended release psyllium husk 3.4 gram/5.4 gram 2 tsp PO ONCE 03/14/25 03/14/25 oral powder (Metamucil) Previous Rx's ?Medication ?Instructions ?Recorded clotrimazole 1 % topical cream 1 applic topical TID PRN PRN rash 04/27/21 #60 grams ketoconazole 2 % topical cream 1 applic topical DAILY #120 grams 02/22/24 lorazepam 1 mg tablet 1 mg PO Q4H PRN anxiety, dyspnea, 08/14/24 nausea #7 tabs morphine concentrate 100 mg/5 mL See Rx Instructions PO Q1H PRN 01/30/25 (20 mg/mL) oral solution pain #30 mL Allergies Allergy/AdvReac Type Severity Reaction Status Date / Time latex Allergy Intermediate rash Verified 03/14/25 13:18 carbamazepine (From Tegretol) Allergy Unknown Unknown Verified 03/14/25 13:18 gabapentin (From Neurontin) Allergy Unknown Unknown Verified 03/14/25 13:18 risperidone (From Risperdal) Allergy Unknown Unknown Verified 03/14/25 13:18 Sulfa (Sulfonamide AdvReac Mild Per pt. Verified 03/14/25 13:18 Antibiotics) mother causes stomach ache haldol AdvReac Unknown Other (See Uncoded 03/14/25 13:18 Comment) General Stated Complaint: GenMedical SCHUYLER: 2 Review of Systems Narrative: Unable to perform full review of systems due to the patient's nonverbal status, however the patient's nursing staff were at bedside deny any other complaints other than as above. Unobtainable due to Exam Narrative Exam Narrative: Gen: A&O NAD HEENT: NCAT, EOMI, not icteric. External ears normal. No rhinorrhea. Moist mucous membranes. Neck: Supple, full range of motion, no observable masses Lungs: No Respiratory distress. CV: RRR, no edema. Abdomen: Soft, nondistended, No rebound tenderness. : Chronic indwelling Li draining clear yellow urine. There is erythema of the scrotum. Right testy is palpable, does not feel significantly edematous and is not obviously tender. No left testy is palpable. Perineum is clear without rash or fluctuance. MSK: No joint swelling, no redness. Skin: No rashes, petechiae, lesions. Normal color per patient. Neuro: Alert. Nonverbal. Normal tone and bulk. Psych: Appropriate for situation. Course 15:16 Case discussed with Tarah Clark, the patient's sister who will discuss with the family to determine if surgical intervention or transfer is within the patient's advanced directive. Consultations Consultation #1: Dr. House of urology paged to determine management of likely epididymal abscess. Time: 14:55 Consultation #2: Case discussed with Dr. House, as well as the patient's sister, in order to adhere to the patient's advanced directive, but decided the patient will not be transferred to another surgical facility given his advanced medical comorbidities that make him an anesthesia risk. Instead we will start patient on antibiotic therapy, directed by most recent urine culture from August of this year which showed a Pseudomonas strain susceptible to third-generation cephalosporin. As such patient will be started on ceftriaxone. Case discussed with Dr. Trujillo (Hospitalist) who will admit the patient for further management. Vital Signs Vital signs: Vital Signs Temperature 36.9 C 03/14/25 12:30 Pulse 60 03/14/25 12:30 Blood Pressure 129/80 03/14/25 12:30 Pulse Oximetry 98 03/14/25 12:30 Temperature 36.8 C 03/14/25 12:36 Temperature Source Tympanic 03/14/25 12:36 Pulse 60 03/14/25 12:36 Respiratory Rate 18 03/14/25 12:36 Blood Pressure 129/80 03/14/25 12:36 Blood Pressure Position Supine 03/14/25 12:30 Pulse Oximetry 98 03/14/25 12:36 Oxygen Delivery Method Room Air 03/14/25 12:36 Oxygen Flow Rate 0 03/14/25 12:30 Pain Level 0 03/14/25 12:30 Lab/Test Results Lab/Test Results: 03/14/25 14:55 Urine - Reflex from Ua Urine Culture - Pending Laboratory Tests Range/Units 03/14/25 03/14/25 13:54 14:55 WBC (4.4-10.8) 10^3/uL 6.36 RBC (4.36-5.78) 10^6/uL 4.55 Hgb (13.5-17.5) g/dL 12.9 L Hct (40.0-50.0) % 40.0 MCV (80-95) fL 88 MCH (27.0-33.0) pg 28.4 MCHC (32.0-36.0) % 32.3 RDW (11.8-14.1) % 14.0 Plt Count (130-400) 10^3/uL 190 MPV (8.0-11.0) fL 11.2 H Immature Gran % % 0.3 Neutrophils % % 72.1 Lymphocytes % % 15.7 Monocytes % % 7.2 Eosinophils % % 4.1 Basophils % % 0.6 Nucleated RBC % (0.0-0.3) % 0.0 Absolute Neutrophils (1.2-6.7) 10^3/uL 4.58 Absolute Lymphocytes (1.2-3.4) 10^3/uL 1.00 L Absolute Monocytes (0.1-0.8) 10^3/uL 0.46 Absolute Eosinophils (0.0-0.7) 10^3/uL 0.26 Absolute Basophils (0.0-0.2) 10^3/uL 0.04 VBG Lactate (<or=2.0) mmol/L 1.6 Sodium (136-145) mmol/L 138 Potassium (3.5-5.1) mmol/L 4.8 Chloride (98-107) mmol/L 102 Carbon Dioxide (21.0-32.0) mmol/L 28.8 Anion Gap (3-11) mmol/L 7.2 BUN (7-18) mg/dL 17 Creatinine (0.70-1.30) mg/dL 1.0 Est GFR (CKD-EPI 2020) (mL/min/1.73m2) 86.16 Glucose (74-106) mg/dL 74 Calcium (8.5-10.1) mg/dL 8.7 Magnesium (1.8-2.4) mg/dL 1.8 Total Bilirubin (0.2-1.0) mg/dL 0.3 AST (15-37) U/L 14 L ALT (16-63) U/L 29 Alkaline Phosphatase (46-116) U/L 93 Total Protein (6.4-8.2) g/dL 6.6 Albumin (3.4-5.0) g/dL 2.9 L Lipase (<78) U/L 35 Urine Color (Yellow) Yellow Urine Clarity (Clear) Cloudy Urine pH (5-8) 6.0 Ur Specific [place] (1.005-1.025) 1.020 Urine Protein (Neg-Trace) mg/dL 100 H Urine Ketones (Negative) mg/dL Negative Urine Blood (Negative) Small H Urine Nitrite (Negative) Positive H Urine Bilirubin (Negative) Negative Urine Urobilinogen (Up to 0.2) mg/dL 0.2 Ur Leukocyte Esterase (Negative) Large H Urine RBC (0-2) HPF 3-5 H Urine WBC (0-5) HPF 20-50 H Ur Epithelial Cells (Negative) HPF Negative Urine Crystals (Negative) HPF Negative Urine Bacteria (Negative) HPF Moderate Urine Casts (Negative) LPF Negative Urine Mucus (Negative) Negative Ur Culture Indicated? Yes Urine Glucose (Negative) mg/dL Negative Medical Decision Making 5-year-old male presents as above. Vital signs are normal limits. History and exam concerning for possible life-threatening etiologies such as Asael's gangrene, testicular torsion, or other acute intra-abdominal infectious or vascular catastrophe. Will obtain screening labs, CT imaging as well as ultrasound of the scrotum to further evaluate. Imaging Data Radiologic Study: Radiologist's impression: Exam(s) CT ABDOMEN PELVIS W EXAM: CT ABDOMEN PELVIS W CLINICAL HISTORY: rigid abdomen and diarrhea. TECHNIQUE: Imaging Protocol: Axial computed tomography images with coronal and sagittal reformatted images were created and reviewed CONTRAST MATERIAL: Intravenous: Omnipaque-350 100cc Oral: None COMPARISON: CT CT RENAL COLIC WO from 05/21/2024 FINDINGS: VISUALIZED LUNG BASES: There is some infiltrate in both lung bases again noted exhibiting minimal change from 05/21/2024. There are no pleural effusions.. ABDOMEN: The ventriculoperitoneal shunt is again noted. There is no ascites at this time. LIVER: There are no focal hepatic lesions evident. No dilated intrahepatic ducts. GALLBLADDER/BILIARY: No obvious gallbladder pathology. CBD is not dilated. PANCREAS: No evidence of pancreatic mass nor dilatation of the pancreatic duct. SPLEEN: Spleen is not enlarged. No obvious intrasplenic lesions. Splenic and portal veins are patent. ADRENALS: There are no significant adrenal masses. KIDNEYS:There few small benign cysts in the kidneys, the largest in the midpole of the right kidney and measuring 1.8 cm. These do not require further imaging workup. There are no solid renal masses. There are no radiopaque renal calculi. There is an extrarenal pelvis on the left side again noted, similar to previous. No true hydronephrosis. No hydroureter. There is Li catheter in the urinary bladder and the bladder wall is diffusely thickened.. ABDOMINAL AORTA: Abdominal aorta is not enlarged. LYMPH NODES:There is no retroperitoneal nor paraaortic adenopathy. ABDOMINAL WALL: No evidence of significant anterior abdominal wall nor inguinal hernia. GI: The entire colon is distended with air and fecal material down to the rectum. There is interposition of the right-side of colon between the hemidiaphragm and the liver, similar to previous. The diameter of the redundant sigmoid is up to 9 cm. There is some abnormal mural thickening of the level the rectum. Requires endoscopy. PELVIS: GI: No evidence of appendicitis.No evidence of sigmoid diverticulitis. LYMPH NODES: There is no intrapelvic nor inguinal adenopathy. REPRODUCTIVE: There is a right-sided hydrocele and there appears to be a mass intimately related to the right testicle, measuring approximately 1.9 x 1.4 cm. The opposite-left testicle is not visualized in the left hemiscrotum. URINARY BLADDER: Contains Li catheter. Wall the urinary bladder is diffusely thickened most probably cystitis. OSSEOUS: No fractures and no significant osseous lesions. Sacroiliac joints appear unremarkable. IMPRESSION: 1. There is significant distension of the entire large bowel and redundant sigmoid. The wall of the rectum is thickened. Endoscopy recommended to rule out malignancy at this level. The diameter of the redundant sigmoid measures up to 9 cm. No pneumatosis at this time. 2. Small-bowel loops exhibit upper normal diameters. 3. Li catheter in place but wall the urinary bladder is uniformly thickened most probably cystitis. 4. Ventriculoperitoneal shunt again noted. There is no ascites in the abdomen. 5. There is a hypodense mass associated with the right testicle either an exophytic mass or possibly mass or abscess in the epididymis of the right testicle. The opposite-left testicle is not seen and may be surgically absent or nondistended. If nondistended than it is atrophic as it is not seen in the inguinal canal. Called by myself to ER physician on 03/14/2025 at 3:18 p.m. Radiologic Study #2: Radiologist's impression: Exam(s) US SCROTUM EXAM: US SCROTUM CLINICAL HISTORY: Scrotal swelling and erytehma. TECHNIQUE: Scrotal ultrasound performed using grayscale, color-flow and spectral Doppler analysis. COMPARISON: CT CT RENAL COLIC WO from 05/21/[address] ABDOMEN PELVIS W from 03/14/2025 FINDINGS: Right testicle: 3.6 x 2.1 x 2.1 cm Echogenicity: There is heterogeneity of the right testicle. There is increased blood flow throughout the right testicle. Contour: Smooth. Mass: None seen. Microlithiasis: None. Hydrocele: There is a moderate hydrocele measuring 4.5 x 1.6 x 4.5 cm. There are septations internally. Variocele: None. Hernia: No peristalsing bowel loop identified. Epididymis: The epididymis is heterogeneous and enlarged. There is marked increased blood flow to the right epididymis. There is a complex 1.8 x 1.3 x 2.2 cm area within the epididymis which may represent an developing abscess. Left testicle: The left testicle is absent. DOPPLER: Color: Increased blood flow to both the right testicle and the heterogeneous right epididymis. IMPRESSION: 1. Findings suggestive of right epididymal orchitis. There is a heterogeneous area measuring 2.2 cm within the epididymal tail. A developing abscess should be considered. 2. Right septated hydrocele. 3. Absent left testicle. 4. Findings were discussed with Dr. Wooten at 2:55 p.m. on 03/14/2025. Quality:[facility] Health Related Social Needs: Health related social needs details Has two private caregivers with him [facility] All Active Problems (Updated 09/14/24 @ 12:06 by Kasia Anderson NP) Abnormal urine sediment (Acute) Hypoxic respiratory failure (Acute) Goals of care, counseling/discussion (Acute) Closed nondisplaced bimalleolar fracture of right ankle (Acute) Closed pilon fracture of right tibia (Acute) Edema (Acute) Atherosclerosis of artery of both lower extremities (Acute) Onychogryphosis (Acute) Nail dystrophy (Acute) Onychomycosis (Acute) Neurogenic bladder (Acute) Sepsis (Acute) Community acquired pneumonia (Acute) DVT prophylaxis (Acute) Urinary catheter insertion/adjustment/removal (Acute) Diarrhea (Acute) Neurogenic bladder (Acute) Discharge planning issues (Acute) Bacteremia (Acute) Medical History (Updated 09/14/24 @ 12:06 by Kasia Anderson NP) 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) Acute UTI Urethral stricture Wheelchair dependent 2 assist Developmental non-verbal disorder Urinary retention Meningioma Neurofibromatosis 2 Surgical History S/P craniotomy S/P QUAD STAYER shunt Social History (Updated 08/10/24 @ 23:27 by Kishor Trujillo) Smoking/Tobacco Use Status: Never Smoking risk assessment performed?: Yes Alcohol Intake: never Drug use: Never Substance use type: does not use Caregiver/Support person: Yes (parents are primary caretakers) Household members: family Housing: house Do you feel safe at home: Yes Do you feel safe in your relationship?: Yes Additional Social history: sister Tarah is guardian. He lives with Lana and her (in home care) and has other aids to help
[2025-03-14 13:56] VITALS: RESP 20
[2025-03-14 14:01] LABS: Abs Immature Grans 0.02 10^3/uL (0.0-0.06); HCT 40.0 % (40.0-50.0); HGB 12.9 g/dL (13.5-17.5); Immature Grans % 0.3 %; MCH 28.4 pg (27.0-33.0); MCHC 32.3 % (32.0-36.0); MCV 88 fL (80-95); MPV 11.2 fL (8.0-11.0); Platelet Count 190 10^3/uL (130-400); RBC 4.55 10^6/uL (4.36-5.78); RDW 14.0 % (11.8-14.1); RDW-SD 45.0 fL; WBC 6.36 10^3/uL (4.4-10.8)
[2025-03-14 14:14] LABS: Lipase 35 U/L (<78)
[2025-03-14 14:33] LABS: ALT 29 U/L (16-63); AST 14 U/L (15-37); Albumin 2.9 g/dL (3.4-5.0); Alkaline Phosphatase 93 U/L (46-116); Anion Gap 7.2 mmol/L (3-11); BUN 17 mg/dL (7-18); Bilirubin, Total 0.3 mg/dL (0.2-1.0); CO2 28.8 mmol/L (21.0-32.0); Calcium 8.7 mg/dL (8.5-10.1); Chloride 102 mmol/L (98-107); Estimated GFR 86.16 (mL/min/1.73m2); Glucose 74 mg/dL (74-106); Magnesium 1.8 mg/dL (1.8-2.4); Potassium 4.8 mmol/L (3.5-5.1); Sodium 138 mmol/L (136-145); Total Protein 6.6 g/dL (6.4-8.2)
[2025-03-14] MEDS: Normal Saline Flush 10 ML SYR IVP (14:38)
[2025-03-14] MEDS: Normal Saline - Diluent 50 ML VIAL IJ (14:39)
[2025-03-14] MEDS: Omnipaque 350 MG/ML 100 ML BTL 75 ML IJ (14:41)
[2025-03-14 15:09] LABS: Glucose Negative (Negative)
[2025-03-14 15:18] LABS: C & S Indicated? Yes; WBC 20-50 HPF (0-5)
[2025-03-14 15:21] VITALS: BP 120/67; PULSE 51; TEMP 35.6; O2SAT 97
[2025-03-14] MEDS: cefTRIAXone 2 GM/50 ML BAG IVPB (15:59)
--- NOTE | 2025-03-14 17:20 | W.PC.ACHO ---
Registration Status: REG ER Primary Language: Preferred Language: Gabonese ED Information & Data Chief Complaint GenMedical 03/14/25 13:10 Triage Note Pt present with caregiver. 03/14/25 12:30 Pt has pain, swelling, and discoloration to testicle x 2-3 days. Pt also has frequent diarrhea x 1 month. Pt nonverbal. 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) Acute UTI Urethral stricture Wheelchair dependent Developmental non-verbal disorder Urinary retention Meningioma Neurofibromatosis 2 (Last Reviewed 08/10/24 @ 23:25 by Kishor Trujillo) S/P craniotomy S/P HULL BUILDER shunt Most Recent Vital Signs Temperature 35.6 C L 03/14/25 15:21 Temperature Source Temporal Artery Scan 03/14/25 15:21 Pulse 51 L 03/14/25 15:21 Pulse Rhythm Regular 03/14/25 15:21 Pulse Strength Normal 03/14/25 15:21 Respiratory Rate 20 03/14/25 13:56 Respiratory Effort Normal 03/14/25 13:56 Respiratory Depth Normal 03/14/25 15:21 Respiratory Pattern Normal 03/14/25 13:56 Blood Pressure 120/67 03/14/25 15:21 Blood Pressure Mean 84 03/14/25 15:21 Blood Pressure Position Supine 03/14/25 12:30 Pulse Oximetry 97 03/14/25 15:21 Oxygen Delivery Method Room Air 03/14/25 15:21 Oxygen Flow Rate 0 03/14/25 15:21 Pain Level 0 03/14/25 12:30 Allergies latex Allergy (Intermediate, Verified 03/14/25 13:18) rash carbamazepine (From Tegretol) Allergy (Unknown, Verified 03/14/25 13:18) Unknown gabapentin (From Neurontin) Allergy (Unknown, Verified 03/14/25 13:18) Unknown risperidone (From Risperdal) Allergy (Unknown, Verified 03/14/25 13:18) Unknown Sulfa (Sulfonamide Antibiotics) Adverse Reaction (Mild, Verified 03/14/25 13:18) Per pt. mother causes stomach ache haldol Adverse Reaction (Unknown, Uncoded 03/14/25 13:18) Other (See Comment) unknown per caregiver, was listed as allergy by pt mother Active Medications Generic Name Dose Route Start Last Admin Trade Name Freq PRN Reason Stop Dose Admin Iohexol 75 ml 03/14/25 14:45 03/14/25 14:41 Omnipaque 350 Mg/Ml 100 Ml Btl IJ 04/13/25 23:59 75 ml DIRECTED TONG Administration Sodium Chloride 0 ml 03/14/25 20:00 03/14/25 14:38 Normal Saline Flush 10 Ml Syr IVP 10 ml BID TONG Administration Sodium Chloride 50 ml 03/14/25 14:45 03/14/25 14:39 Normal Saline - Diluent 50 Ml Vial IJ 50 ml .FOR DI USE TONG Administration IV IV Catheter Type [Left Peripheral IV Antecubital] IV Catheter Gauge [Left 18 Antecubital] Diet Orders Category Date Time Status Regular/Normal [DIET] Nutrition 03/14/25 Dinner Active Diagnostics 03/14/25 03/14/25 Range/Units 14:55 13:54 WBC 6.36 (4.4-10.8) 10^3/uL RBC 4.55 (4.36-5.78) 10^6/uL Hgb 12.9 L (13.5-17.5) g/dL Hct 40.0 (40.0-50.0) % MCV 88 (80-95) fL MCH 28.4 (27.0-33.0) pg MCHC 32.3 (32.0-36.0) % RDW 14.0 (11.8-14.1) % Plt Count 190 (130-400) 10^3/uL MPV 11.2 H (8.0-11.0) fL Immature Gran % 0.3 % Neutrophils % 72.1 % Lymphocytes % 15.7 % Monocytes % 7.2 % Eosinophils % 4.1 % Basophils % 0.6 % Nucleated RBC % 0.0 (0.0-0.3) % Absolute Neutrophils 4.58 (1.2-6.7) 10^3/uL Absolute Lymphocytes 1.00 L (1.2-3.4) 10^3/uL Absolute Monocytes 0.46 (0.1-0.8) 10^3/uL Absolute Eosinophils 0.26 (0.0-0.7) 10^3/uL Absolute Basophils 0.04 (0.0-0.2) 10^3/uL VBG Lactate 1.6 (<or=2.0) mmol/L Sodium 138 (136-145) mmol/L Potassium 4.8 (3.5-5.1) mmol/L Chloride 102 (98-107) mmol/L Carbon Dioxide 28.8 (21.0-32.0) mmol/L Anion Gap 7.2 (3-11) mmol/L BUN 17 (7-18) mg/dL Creatinine 1.0 (0.70-1.30) mg/dL Est GFR (CKD-EPI 2020) 86.16 (mL/min/1.73m2) Glucose 74 (74-106) mg/dL Calcium 8.7 (8.5-10.1) mg/dL Magnesium 1.8 (1.8-2.4) mg/dL Total Bilirubin 0.3 (0.2-1.0) mg/dL AST 14 L (15-37) U/L ALT 29 (16-63) U/L Alkaline Phosphatase 93 (46-116) U/L Total Protein 6.6 (6.4-8.2) g/dL Albumin 2.9 L (3.4-5.0) g/dL Lipase 35 (<78) U/L Urine Color Yellow (Yellow) Urine Clarity Cloudy (Clear) Urine pH 6.0 (5-8) Ur Specific [place] 1.020 (1.005-1.025) Urine Protein 100 H (Neg-Trace) mg/dL Urine Ketones Negative (Negative) mg/dL Urine Blood Small H (Negative) Urine Nitrite Positive H (Negative) Urine Bilirubin Negative (Negative) Urine Urobilinogen 0.2 (Up to 0.2) mg/dL Ur Leukocyte Esterase Large H (Negative) Urine RBC 3-5 H (0-2) HPF Urine WBC 20-50 H (0-5) HPF Ur Epithelial Cells Negative (Negative) HPF Urine Crystals Negative (Negative) HPF Urine Bacteria Moderate (Negative) HPF Urine Casts Negative (Negative) LPF Urine Mucus Negative (Negative) Ur Culture Indicated? Yes Urine Glucose Negative (Negative) mg/dL 03/14/25 14:55 Urine Culture - Pending Urine - Reflex from Ua Intake and Output - 24 Hour Total 03/14/25 12:26 thru 03/14/25 16:22 Intake Total 50 Balance 50 Weight 54.431 kg Intake: IV 50 Falls Risk Assessment History of Falls Previous History 03/14/25 13:56 Contributing Factors Confusion,Impairments, 03/14/25 13:56 Incontinence,Medications Ambulatory Aids Uses ambulatory device + 03/14/25 13:56 Tubes/Lines With any additional score 03/14/25 13:56 Gait Evaluation W/any additional score 03/14/25 13:56 Cognition Cognitive impairment 03/14/25 13:56 Fall Total Score 112 03/14/25 13:56 Level of Risk Maximum Risk 03/14/25 13:56 v v v v v v v v v Sending and/or Receiving Nurses: Please use comment section below to note any information pertinent to the patient hand-off not included above. Information / Comments: Pt is alert and mentation appears to be at his BL per caregivers. VSS, doesnt seem to be in pain, however, scrotum is red and edematous. US guided LAC IV. Able to stand and pivot to a wheelchair. At home pt is on pureed soft diet, takes pills whole. Skin is macerated in groin. Incontinent with stool. Li is in place. Report received from: KENNEDY Arellano
[2025-03-14 17:27] VITALS: BP 128/80; PULSE 52; RESP 16; TEMP 36.9; O2SAT 97
--- NOTE | 2025-03-14 18:17 | W.PM.HP.N ---
Date of service: 03/14/25 Time of Service: 18:17 Assessment and Plan Assessment and plan (1) Epididymitis with abscess: Status: Acute Assessment and plan: Likely source is stool/urinary tract. Culture pending No sepsis physiology, labs reassuring. started on ceftriaxone, but will change to cefepime as recent pseudomonal infections Concern for possible abscess, but DPOA does not want transfer for surgery. IV antibiotics may be enough. Will consult [facility] to help advise. (2) Neurogenic bladder: Status: Acute Assessment and plan: lyles in place. (3) Developmental non-verbal disorder: Assessment and plan: Gets good home care, and caregivers welcome to stay and help with care dysphagia diet noted, he needs to be fed (4) DVT prophylaxis: Status: Acute Assessment and plan: given goals of care, injection doesn't make sense. He is still ambulatory with help. (5) Colon wall thickening: Status: Acute Assessment and plan: Noted on CT. associated with chronic loose stools/diarrhea and bloating. Given goals of care I'm not sure aggressive evaluation makes sense, but will order c. dif to not miss this. (6) Goals of care, counseling/discussion: Status: Acute Assessment and plan: hospice status, but okay to admit to treat painful condition. History of Present Illness History of Present Illness Chief Complaint: testicle pain Narrative: 59 yo M, hospice patient, who is non-verbal with history of intellectual disability a/w chromosomal abnormality, neurofibromatosis 2, neurogenic bladder, and history of aspiration who presented to the emergency room with 2 days of pain and swelling in his single testicle. His team truck driver noted yesterday. No history of trauma or trapping or twisting of testicle. No fever/chills. No n/v, he is eating well. He has had chronic loose stools 2-3 x day associated with abdominal bloating at times. He is often covered in stools in the his diaper in the morning, so caregivers are worried stool could be contaminating lyles. He did have pseudomonas in his blood in August when admitted with sepsis, in his urine in September. Case reviewed with hospice, okay to admit for painful condition. Urology is aware. COUNT INCLUDES THE [facility] All Active Problems (Updated 03/14/25 @ 18:52 by Kishor Trujillo) Colon wall thickening (Acute) Epididymitis with abscess (Acute) Abnormal urine sediment (Acute) Goals of care, counseling/discussion (Acute) Closed nondisplaced bimalleolar fracture of right ankle (Acute) Closed pilon fracture of right tibia (Acute) Edema (Acute) Atherosclerosis of artery of both lower extremities (Acute) Onychogryphosis (Acute) Nail dystrophy (Acute) Onychomycosis (Acute) Neurogenic bladder (Acute) Discharge planning issues (Acute) Neurogenic bladder (Acute) Diarrhea (Acute) Urinary catheter insertion/adjustment/removal (Acute) DVT prophylaxis (Acute) Community acquired pneumonia (Acute) Medical History (Updated 03/14/25 @ 18:52 by Kishor Trujillo) Bacteremia pseudomonas 08/2024 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) Acute UTI Urethral stricture Wheelchair dependent 2 assist Developmental non-verbal disorder Urinary retention Meningioma Neurofibromatosis 2 Surgical History S/P craniotomy S/P 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 He lives with [facility] and her in [address] (in home care) and has other aides to help Meds Allergies and Home Medications Allergies Allergy/AdvReac Type Severity Reaction Status Date / Time latex Allergy Intermediate rash Verified 03/14/25 13:18 carbamazepine (From Tegretol) Allergy Unknown Unknown Verified 03/14/25 13:18 gabapentin (From Neurontin) Allergy Unknown Unknown Verified 03/14/25 13:18 risperidone (From Risperdal) Allergy Unknown Unknown Verified 03/14/25 13:18 Sulfa (Sulfonamide AdvReac Mild Per pt. Verified 03/14/25 13:18 Antibiotics) mother causes stomach ache haldol AdvReac Unknown Other (See Uncoded 03/14/25 13:18 Comment) Home Medications ?Medication ?Instructions ?Recorded ?Confirmed ?Type polyethylene glycol 3350 17 17 g PO DAILY 08/25/15 03/14/25 History gram/dose oral powder (GlycoLax) bisacodyl 10 mg rectal suppository 10 mg [place] DAILY 04/26/19 03/14/25 History (Dulcolax (bisacodyl)) clotrimazole 1 % topical cream 1 applic topical TID PRN PRN rash 04/27/21 03/14/25 Rx #60 grams ketoconazole 2 % topical cream 1 applic topical DAILY #120 grams 02/22/24 03/14/25 Rx sertraline 50 mg tablet 50 mg PO DAILY 05/21/24 03/14/25 History loratadine 10 mg tablet 10 mg PO DAILY 06/01/24 03/14/25 History lorazepam 1 mg tablet 1 mg PO Q4H PRN anxiety, dyspnea, 08/14/24 03/14/25 Rx nausea #7 tabs morphine concentrate 100 mg/5 mL See Rx Instructions PO Q1H PRN 01/30/25 03/14/25 Rx (20 mg/mL) oral solution pain #30 mL cholecalciferol (vitamin D3) 25 1,000 unit PO DAILY 03/14/25 03/14/25 History mcg (1,000 unit) capsule (Vitamin D3) potassium chloride 10 mEq 10 meq PO BID 03/14/25 03/14/25 History capsule,extended release psyllium husk 3.4 gram/5.4 gram 2 tsp PO ONCE 03/14/25 03/14/25 History oral powder (Metamucil) Exam Narrative Exam Narrative: GEN: Alert, non-verbal, doesn't follow commands but responds to touch and voice and cooperates with exam. No acute distress at rest. HEENT: Head atraumatic, scars from surgery/shunt noted. Conjunctiva clear, no icterus. PEERL, EOMI. no rhinorrhea. MMM, OP benign, mouth in grimacing posture chronically. Neck is supple with no masses or lymphadenopathy, trachea midline LUNGS: CTAB other that course sounds in bases, normal effort, normal effort CV: RRR with no murmurs, gallops, or rubs. ABD: active bowel sounds, soft, nontender topalpation, moderate soft distension. No masses. : penis appears normal, catheter in place. Single testicle, firm and swollen, red. no fluctuance. EXT: no cyanosis, clubbing, or edema. toes warm. 1st nails thickened but well groomed. MSK: No joint redness or swelling NEURO: CN 2-12 grossly intact. Normal movement of 4 extremities. Normal speech and coordination. No tremor SKIN: Scattered red papules back, no pus. few peticheia on dorsal hands. No open wounds. PSYCH: non-verbal, as above he is cooperative. Results Imaging Abdomen CT scan report/results: report reviewed CT scan - pelvis: report reviewed Imaging Studies: CT A/P: 1. There is significant distension of the entire large bowel and redundant sigmoid. The wall of the rectum is thickened. Endoscopy recommended to rule out malignancy at this level. The diameter of the redundant sigmoid measures up to 9 cm. No pneumatosis at this time. 2. Small-bowel loops exhibit upper normal diameters. 3. Lyles catheter in place but wall the urinary bladder is uniformly thickened most probably cystitis. 4. Ventriculoperitoneal shunt again noted. There is no ascites in the abdomen. 5. There is a hypodense mass associated with the right testicle either an exophytic mass or possibly mass or abscess in the epididymis of the right testicle. The opposite-left testicle is not seen and may be surgically absent or nondistended. If nondistended than it is atrophic as it is not seen in the inguinal canal. Scrotal u/s: 1. Findings suggestive of right epididymal orchitis. There is a heterogeneous area measuring 2.2 cm within the epididymal tail. A developing abscess should be considered. 2. Right septated hydrocele. 3. Absent left testicle. Labs 03/14/25 13:54 03/14/25 13:54 Labs: Laboratory Results - last 24 hr 03/14/25 03/14/25 13:54 14:55 WBC 6.36 RBC 4.55 Hgb 12.9 L Hct 40.0 MCV 88 MCH 28.4 MCHC 32.3 RDW 14.0 Plt Count 190 MPV 11.2 H Immature Gran % 0.3 Neutrophils % 72.1 Lymphocytes % 15.7 Monocytes % 7.2 Eosinophils % 4.1 Basophils % 0.6 Nucleated RBC % 0.0 Absolute Neutrophils 4.58 Absolute Lymphocytes 1.00 L Absolute Monocytes 0.46 Absolute Eosinophils 0.26 Absolute Basophils 0.04 VBG Lactate 1.6 Sodium 138 Potassium 4.8 Chloride 102 Carbon Dioxide 28.8 Anion Gap 7.2 BUN 17 Creatinine 1.0 Est GFR (CKD-EPI 2020) 86.16 Glucose 74 Calcium 8.7 Magnesium 1.8 Total Bilirubin 0.3 AST 14 L ALT 29 Alkaline Phosphatase 93 Total Protein 6.6 Albumin 2.9 L Lipase 35 Urine Color Yellow Urine Clarity Cloudy Urine pH 6.0 Ur Specific [place] 1.020 Urine Protein 100 H Urine Ketones Negative Urine Blood Small H Urine Nitrite Positive H Urine Bilirubin Negative Urine Urobilinogen 0.2 Ur Leukocyte Esterase Large H Urine RBC 3-5 H Urine WBC 20-50 H Ur Epithelial Cells Negative Urine Crystals Negative Urine Bacteria Moderate Urine Casts Negative Urine Mucus Negative Ur Culture Indicated? Yes Urine Glucose Negative Last Vital Signs Temp 36.9 C 03/14/25 17:27 Pulse 52 L 03/14/25 17:27 Resp 16 03/14/25 17:27 BP 128/80 03/14/25 17:27 Pulse Ox 97 03/14/25 17:27 Time Spent Time spent with Patient: 55-74 minutes Time was spent: preparing to see the patient(eg.review tests), obtaining and/or reviewing separately otained hiistory, ordering medications,tests, procedures, referring, communicating with other health manager intensive care unit, indepentently interpreting results, counseling the patient and care coordination
[2025-03-14 19:24] VITALS: BP 125/76; PULSE 62; RESP 16; TEMP 36.4; O2SAT 94
[2025-03-14] MEDS: CEFEPIME 2 GM in Normal Saline 100 ML IVPB (20:11)
[2025-03-14] MEDS: Potassium Chloride 10 MEQ CAPCR PO (20:11)
[2025-03-15 02:49] LABS: EPI 027-NAP1-B1 PRESUMPTIVE NEGATIVE
[2025-03-15] MEDS: CEFEPIME 2 GM in Normal Saline 100 ML IVPB ×3 (03:47→20:33)
--- NOTE | 2025-03-15 07:06 | UCONE_ITS ---
Date of service: 03/15/25 Time of Service: 12:31 Assessment and Plan Assessment and plan (1) Epididymitis with abscess: Status: Acute Assessment and plan: The standard of care would be an incisional debridement along with antibiotics. This gentleman is not an anesthesia candidate at our facility and his family is not interested in a transfer to an outside institution. As a compromise, we will treat him with antibiotics alone knowing full well that his abscess may progress to either the point of spontaneous drainage or to the point where a drainage procedure becomes an emergency. History of Present Illness History of Present Illness Chief Complaint: Right epididymitis Narrative: This is a 59-year-old gentleman who has a history of a neurogenic bladder. At 1 point, he was managed with intermittent catheterization. Currently, he has a chronic indwelling urethral catheter. He has had episodes of urosepsis related to the catheter. He was brought to the emergency department yesterday with erythema and swelling of the right hemiscrotum. He had an ultrasound and CT scan that raised the possibility of epididymitis with an abscess. There was no fluctuance on his initial examination and he is a poor anesthesia candidate, so he was not felt to be candidate for an exploration/incisional drainage at our facility. His family was not interested in transfer to a larger facility, so as a compromise, we elected to admit him with antibiotics and clinical monitoring. David is not verbal so he is not able to provide any history for me. Review of Systems Unobtainable due to mental status [facility] All Active Problems (Updated 03/14/25 @ 18:52 by Kishor Trujillo) Colon wall thickening (Acute) Epididymitis with abscess (Acute) Abnormal urine sediment (Acute) Goals of care, counseling/discussion (Acute) Closed nondisplaced bimalleolar fracture of right ankle (Acute) Closed pilon fracture of right tibia (Acute) Edema (Acute) Atherosclerosis of artery of both lower extremities (Acute) Onychogryphosis (Acute) Nail dystrophy (Acute) Onychomycosis (Acute) Neurogenic bladder (Acute) Community acquired pneumonia (Acute) DVT prophylaxis (Acute) Urinary catheter insertion/adjustment/removal (Acute) Diarrhea (Acute) Neurogenic bladder (Acute) Discharge planning issues (Acute) Medical History (Updated 03/14/25 @ 18:52 by Kishor Trujillo) Bacteremia pseudomonas 08/2024 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) Acute UTI Urethral stricture Wheelchair dependent 2 assist Developmental non-verbal disorder Urinary retention Meningioma Neurofibromatosis 2 Surgical History S/P craniotomy S/P RATCHET SETTER shunt Social History (Updated 03/14/25 @ 18:25 by Kishor Trujillo) Smoking/Tobacco Use Status: Never Smoking risk assessment performed?: Yes Alcohol Intake: never Drug use: Never Substance use type: does not use Caregiver/Support person: Yes (parents are primary caretakers) Household members: family Housing: house Do you feel safe at home: Yes Do you feel safe in your relationship?: Yes Additional Social history: sister Tarah is guardian. He lives with Lana and her in [place] (in home care) and has other aides to help Exam Narrative Exam Narrative: He does not appear septic or toxic The right hemiscrotum is actually less erythematous today. There is firmness on the epididymis itself but no fluctuance The left hemiscrotum is empty as he is known to have an undescended testis He is awake and alert Results Last Vital Signs Temp 36.4 C L 03/14/25 19:24 Pulse 62 03/14/25 19:24 Resp 16 03/14/25 19:24 BP 125/76 03/14/25 19:24 Pulse Ox 94 03/14/25 19:24 Labs 03/14/25 13:54 03/14/25 13:54 Labs: Laboratory Results - last 24 hr 03/14/25 03/14/25 03/15/25 13:54 14:55 01:34 WBC 6.36 RBC 4.55 Hgb 12.9 L Hct 40.0 MCV 88 MCH 28.4 MCHC 32.3 RDW 14.0 Plt Count 190 MPV 11.2 H Immature Gran % 0.3 Neutrophils % 72.1 Lymphocytes % 15.7 Monocytes % 7.2 Eosinophils % 4.1 Basophils % 0.6 Nucleated RBC % 0.0 Absolute Neutrophils 4.58 Absolute Lymphocytes 1.00 L Absolute Monocytes 0.46 Absolute Eosinophils 0.26 Absolute Basophils 0.04 VBG Lactate 1.6 Sodium 138 Potassium 4.8 Chloride 102 Carbon Dioxide 28.8 Anion Gap 7.2 BUN 17 Creatinine 1.0 Est GFR (CKD-EPI 2020) 86.16 Glucose 74 Calcium 8.7 Magnesium 1.8 Total Bilirubin 0.3 AST 14 L ALT 29 Alkaline Phosphatase 93 Total Protein 6.6 Albumin 2.9 L Lipase 35 Urine Color Yellow Urine Clarity Cloudy Urine pH 6.0 Ur Specific [place] 1.020 Urine Protein 100 H Urine Ketones Negative Urine Blood Small H Urine Nitrite Positive H Urine Bilirubin Negative Urine Urobilinogen 0.2 Ur Leukocyte Esterase Large H Urine RBC 3-5 H Urine WBC 20-50 H Ur Epithelial Cells Negative Urine Crystals Negative Urine Bacteria Moderate Urine Casts Negative Urine Mucus Negative Ur Culture Indicated? Yes Urine Glucose Negative Stl C.difficile Tox PCR Negative
--- NOTE | 2025-03-15 08:32 | PDOC.CMIN ---
Date of service: 03/15/25 Time of Service: 08:33 Care Management Initial Assmt Initial Assessment Reason for Hospitalization: Epididmitis Functional Status/Living Situation Patient Presentation: Hollis was sitting in a recliner when CM met with him, he is accompanied by his father, Cam. Pt is non-verbal and currently under hospice care, admitted for Epididymitis with abscess and associated pain; Urology consult was completed by Dr. House. Pt is not a surgical candidate at this time per report, and family have opted for medical management with IV antibiotics. Hollis resides in an [facility] home in [place] with caregiver support. His legal guardian is his sister Tarah. Per his father, he is able to transport via private vehicle. CM will follow. Town of Residence: [place] Resides with: Other ([facility] home care providers) Significant Other/Family: Local Caregiver/Guardian: Guardian, Tarah Clark (sister) Caregivers, Albaro and Saranya Lobo Natural Supports: Father, Cam Ambriz Sister and Brother in law, Tarah and Kwame Clark Employment Status: Disabled Instrumental Activities of Daily Living (ADLs): Requires support Medications Medication Management: No Issues/Barriers identified Physical Functioning/Mobility Assistive Device: wheel chair Advance Directives Advance Directives: Do you have an Advance Directive: N 05/09/23, 09:[address] [facility]: N 05/09/23, 09:06 Date Asked 03/14/25 03/14/25, 12:35 AD Date Reviewed COLST On File at [facility] No 08/10/24, 16:16 COLST Date Scanned Code Status Resuscitation Status DNR/DNI Insurance Coverage/Financial Issues Insurance: [facility] Care Team Visit Care Team Role Provider Type Freida Starks Primary Care Provider NON-[facility] STAFF PHYSICIAN Joey House MD Other Providers [facility] STAFF PHYSICIAN lAex Wooten MD Emergency Provider [facility] STAFF PHYSICIAN Kishor Trujillo Admit Provider [facility] STAFF PHYSICIAN Attending Provider Discharge Anticipated Barriers to Discharge: None Identified Patient/Family Education Needs: Review discharge instructions, discuss Ask Me Three Transportation: Other (Dependent on mobility) Plan: Anticipate Hollis will return home with a resumption of his caregiver support. He will transport via EMS vs. private vehicle. He will follow up with community providers and his discharge plan of care. CM will continue to follow. Social Determinants of Health Screening Social Determinants of health last assessed in clinic: 03/15/25 Will the Patient Participate in the Screening?: Yes Do you worry about having a steady place to live?: no Problems where you live: no known problems In the past 12 months, have you had to go without electric, gas, oil or water in your home?: no 1. Within the past 12 months, we worried whether our food would run out before we got money to buy more.: Never true 2. Within the past 12 months, the food we bought just didn't last and we didn't have money to get more.: Never true Has lack of transportation kept you from medical appointments or from doing things needed for daily living?: no Has anyone in your life made you feel unsafe or unsupported?: no How hard is it for you to pay for the very basics like food, housing, medical care, and heating? Would you say it is:: Not hard at all Do you want help finding or keeping work or a job?: I do not need or want help If for any reason you need help with day-to-day activities such as bathing, preparing meals, shopping, managing finances, etc., do you get the help you need?: I don?t need any help How often do you feel lonely or isolated from those around you?: Never Do you speak a language other than Swedish at home?: No Does the patient want assistance with any of the above?: No PFSH All Active Problems (Updated 03/14/25 @ 18:52 by Kishor Trujillo) Colon wall thickening (Acute) Epididymitis with abscess (Acute) Abnormal urine sediment (Acute) Goals of care, counseling/discussion (Acute) Closed nondisplaced bimalleolar fracture of right ankle (Acute) Closed pilon fracture of right tibia (Acute) Edema (Acute) Atherosclerosis of artery of both lower extremities (Acute) Onychogryphosis (Acute) Nail dystrophy (Acute) Onychomycosis (Acute) Neurogenic bladder (Acute) Community acquired pneumonia (Acute) DVT prophylaxis (Acute) Urinary catheter insertion/adjustment/removal (Acute) Diarrhea (Acute) Neurogenic bladder (Acute) Discharge planning issues (Acute) Medical History (Updated 03/14/25 @ 18:52 by Kishor Trujillo) Bacteremia pseudomonas 08/2024 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) Acute UTI Urethral stricture Wheelchair dependent 2 assist Developmental non-verbal disorder Urinary retention Meningioma Neurofibromatosis 2 Surgical History S/P craniotomy S/P ASSISTANT SALES MANAGER shunt Social History (Updated 03/14/25 @ 18:25 by Kishor Trujillo) Smoking/Tobacco Use Status: Never Smoking risk assessment performed?: Yes Alcohol Intake: never Drug use: Never Substance use type: does not use Caregiver/Support person: Yes (parents are primary caretakers) Household members: family Housing: house Do you feel safe at home: Yes Do you feel safe in your relationship?: Yes Additional Social history: sister Tarah is guardian. He lives with [facility] and her in [place] (in home care) and has other aides to help
[2025-03-15] MEDS: Ketoconazole 2% CREAM 15 GM TUBE TP (08:43)
[2025-03-15] MEDS: Psyllium PKT 1 EACH PO (08:43)
[2025-03-15] MEDS: Cholecalciferol (Vitamin D3) 1,000 UNIT TAB 1000 UNITS PO (08:44)
[2025-03-15] MEDS: Loratidine 10 MG TAB PO (08:44)
[2025-03-15] MEDS: Sertraline 50 MG TAB PO (08:44)
[2025-03-15] MEDS: Potassium Chloride 10 MEQ CAPCR PO ×2 (08:44→20:33)
[2025-03-15] MEDS: Normal Saline Flush 10 ML SYR IVP ×2 (08:44→20:32)
[2025-03-15 15:53] VITALS: BP 140/71; PULSE 80; RESP 16; TEMP 36.7; O2SAT 98
--- NOTE | 2025-03-15 16:28 | W.PM.PROGNOT ---
Date of Service Date of service: 03/15/25 Time of Service: 08:28 Assessment and Plan Assessment and plan (1) Epididymitis with abscess: Status: Acute Assessment and plan: Likely source is stool/urinary tract. Culture pending No sepsis physiology, labs reassuring. He is clearly improving. Covering with cefepime as recent pseudomonal infections Concern for possible abscess, sugery would typically be standard, but can't get surgery here DPOA does not want transfer for surgery. IV antibiotics may be enough on their own, Harsh agrees. Continue on cefepime until urine cultures result to help guide therapy, likely 03/16 (2) Neurogenic bladder: Status: Acute Assessment and plan: lyles in place, make sure this replaced on this visit prior to discharge. (3) DVT prophylaxis: Status: Acute Assessment and plan: given goals of care, injection doesn't make sense. He is still ambulatory with help. (4) Colon wall thickening: Status: Acute Assessment and plan: Noted on CT. associated with chronic loose stools/diarrhea and bloating. Given goals of care I'm not sure aggressive evaluation makes sense, c. dif negative. Stop the daily PEG, prn only. continue psyllium. (5) Goals of care, counseling/discussion: Status: Acute Assessment and plan: hospice status, but okay to admit to treat painful condition not related to his hospice diagnosis. Hospice team aware. 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 Exam Narrative Exam Narrative: GEN: Alert, non-verbal, doesn't follow commands but responds to touch and voice and cooperates with exam. No acute distress at rest. LUNGS: CTAB other that course sounds in bases, normal effort, normal effort CV: RRR with no murmurs, gallops, or rubs. ABD: active bowel sounds, soft, nontender topalpation, moderate soft distension. No masses. : penis appears normal, catheter in place. Single testicle, still firm but clearly less swollen and red. no fluctuance. EXT: no cyanosis, clubbing, or edema. Objective Last Vital Signs Temp 36.7 C 03/15/25 15:53 Pulse 80 03/15/25 15:53 Resp 16 03/15/25 15:53 BP 140/71 03/15/25 15:53 Pulse Ox 98 03/15/25 15:53 Laboratory Results - last 24 hr 03/15/25 01:34 Stl C.difficile Tox PCR Negative Time Spent with Patient Time Spent with Patient: 25-34 minutes Time was spent: preparing to see the patient(eg.review tests), obtaining and/or reviewing separately otained hiistory, ordering medications,tests, procedures, referring, communicating with other health landcare facilitator, indepentently interpreting results, counseling the patient and care coordination
[2025-03-15 19:19] VITALS: BP 123/69; PULSE 67; RESP 16; TEMP 37; O2SAT 95
[2025-03-15 23:11] LABS: Campylobacter PCR Negative (Negative); Shiga Toxin PCR Negative (Negative); Shigella/Enteroinvasive Ecoli Negative (Negative)
[2025-03-16] MEDS: CEFEPIME 2 GM in Normal Saline 100 ML IVPB ×3 (04:34→19:53)
[2025-03-16 07:34] VITALS: BP 150/79; PULSE 58; RESP 16; TEMP 36; O2SAT 97
[2025-03-16] MEDS: Sertraline 50 MG TAB PO (08:43)
[2025-03-16] MEDS: Loratidine 10 MG TAB PO (08:43)
[2025-03-16] MEDS: Psyllium PKT 1 EACH PO (08:43)
[2025-03-16] MEDS: Potassium Chloride 10 MEQ CAPCR PO ×2 (08:43→19:52)
[2025-03-16] MEDS: Cholecalciferol (Vitamin D3) 1,000 UNIT TAB 1000 UNITS PO (08:43)
[2025-03-16] MEDS: Bisacodyl 10 MG SUPP PR (08:43)
[2025-03-16] MEDS: Normal Saline Flush 10 ML SYR IVP ×3 (08:43→20:00)
[2025-03-16] MEDS: Ketoconazole 2% CREAM 15 GM TUBE TP (11:08)
--- NOTE | 2025-03-16 17:54 | W.PM.PROGNOT ---
Date of Service Date of service: 03/16/25 Time of Service: 17:54 Assessment and Plan Assessment and plan (1) Epididymitis with abscess: Status: Acute Assessment and plan: Likely source is stool/urinary tract. Culture growing GNR with species still pending 03/16 No sepsis physiology, labs reassuring. He is clearly improving. Covering with cefepime as recent pseudomonal infections Concern for possible abscess, sugery would typically be standard, but can't get surgery here DPOA does not want transfer for surgery. IV antibiotics may be enough on their own, Harsh agrees. Continue on cefepime until urine cultures result to help guide therapy, likely 03/17 (2) Neurogenic bladder: Status: Acute Assessment and plan: lyles in place, make sure this replaced on this visit prior to discharge. (3) DVT prophylaxis: Status: Acute Assessment and plan: given goals of care, injection doesn't make sense. He is still ambulatory with help. (4) Colon wall thickening: Status: Acute Assessment and plan: Noted on CT. associated with chronic loose stools/diarrhea and bloating. Given goals of care I'm not sure aggressive evaluation makes sense, c. dif negative. Stop the daily PEG, prn only. continue psyllium. no change (5) Goals of care, counseling/discussion: Status: Acute Assessment and plan: hospice status, but okay to admit to treat painful condition not related to his hospice diagnosis. Hospice team aware. Subjective Subjective Patient reports: no new complaints; denies diarrhea, vomiting or fever Interval history since last seen: No concerns from nursing or caregivers. Exam Narrative Exam Narrative: GEN: Alert, non-verbal, doesn't follow commands but responds to touch and voice and cooperates with exam. No acute distress at rest. LUNGS: CTAB other that course sounds in bases, normal effort, normal effort CV: RRR with no murmurs, gallops, or rubs. ABD: active bowel sounds, soft, nontender to palpation, moderate soft distension. No masses. : penis appears normal, catheter in place. Single testicle, still firm but clearly minimally swollen and not red. no fluctuance. EXT: no cyanosis, clubbing, or edema. Objective Last Vital Signs Temp 36.0 C L 03/16/25 07:34 Pulse 58 L 03/16/25 07:34 Resp 16 03/16/25 07:34 BP 150/79 H 03/16/25 07:34 Pulse Ox 97 03/16/25 07:34 Time Spent with Patient Time Spent with Patient: 25-34 minutes Time was spent: preparing to see the patient(eg.review tests), obtaining and/or reviewing separately otained hiistory, ordering medications,tests, procedures, referring, communicating with other health acute care nursing assistant, indepentently interpreting results, counseling the patient and care coordination
[2025-03-16 19:45] VITALS: BP 138/74; PULSE 60; RESP 16; TEMP 36.6; O2SAT 97
[2025-03-17] MEDS: CEFEPIME 2 GM in Normal Saline 100 ML IVPB (05:23)
[2025-03-17 07:17] VITALS: BP 150/79; PULSE 56; RESP 18; TEMP 36.4; O2SAT 95
[2025-03-17] MEDS: Cholecalciferol (Vitamin D3) 1,000 UNIT TAB 1000 UNITS PO (08:55)
[2025-03-17] MEDS: Bisacodyl 10 MG SUPP PR (08:55)
[2025-03-17] MEDS: Psyllium PKT 1 EACH PO (08:55)
[2025-03-17] MEDS: Loratidine 10 MG TAB PO (08:55)
[2025-03-17] MEDS: Sertraline 50 MG TAB PO (08:55)
[2025-03-17] MEDS: Potassium Chloride 10 MEQ CAPCR PO (08:55)
[2025-03-17] MEDS: Normal Saline Flush 10 ML SYR IVP ×2 (08:56→12:06)
[2025-03-17] MEDS: ceFAZolin 2 GM/50 ML BAG IVPB (12:06)
--- NOTE | 2025-03-17 14:47 | DSE_ITS ---
Date of service: 03/17/25 Time of Service: 14:47 DS: Diagnosis Discharge Diagnosis (1) Epididymitis with abscess: Status: Acute (2) Neurogenic bladder: Status: Acute (3) DVT prophylaxis: Status: Acute (4) Colon wall thickening: Status: Acute (5) Goals of care, counseling/discussion: Status: Acute Discharge Plan Discharge Details Reason For Visit: epididymitis/orchitis Admit Date/Time: 03/14/25 16:02 Admit Provider: Kishor Trujillo Attending Provider: Kishor Trujillo Primary Care Provider: Freida Starks Hospital Course Hospital Course: 59 yo M, hospice patient, who is non-verbal with history of intellectual disability a/w chromosomal abnormality, neurofibromatosis 2, neurogenic bladder, and history of aspiration who presented to the emergency room with 2 days of pain and swelling in his single testicle. CT and ultrasound suggested possible abscess, 2.2cm area in epididymal tail. Dr. House from urology was consulted who stated the standard treatment would be incision and drainage, but that Mr. Ambriz is not a surgical candidate at this hospital. Given this and his goals of care, his guardian elected to stay at [facility] for IV antibiotics. He was given ceftriaxone in the ED but changed to cefepime given h/o recent pseudomonas infection. His redness and swelling clearly improved after the first day on antibiotics. He never had fever and his WBC was normal. The urine grew pansen sitive e. coli when sensitivities returned 03/17. He still had some tenderness in posterior testicle, but the decision was made to finish a course of oral antibiotic. If the possible abscess persists, they may reconsider surgery. However, it would have to be at [facility] or another tertiary care center. His lyles was replaced prior to discharge due to the urine infection. CT also showed colon thickening, but this is chronic. He had loose stools, c. dif negative, PEG was changed to PRN. Recommendations for Follow Up Recommended tests to be ordered by follow up provider: clinical follow up within 1 week, consider repeat testicular u/s to see if size changing Home Meds and New Rx's Prescriptions: New amoxicillin 875 mg tablet 875 mg PO BID Qty: 20 0RF No Action loratadine 10 mg tablet 10 mg PO DAILY clotrimazole 1 % cream 1 applic topical TID PRN PRN (Reason: rash) Qty: 60 0RF ketoconazole 2 % cream 1 applic topical DAILY Qty: 120 6RF Rx Instructions: Apply to toenails once daily polyethylene glycol 3350 [GlycoLax] 527 GM powder 17 g PO DAILY lorazepam 1 mg tablet 1 mg PO Q4H PRN (Reason: anxiety, dyspnea, nausea) Qty: 7 2RF Rx Instructions: hospice morphine concentrate 100 mg/5 mL (20 mg/mL) solution See Rx Instructions PO Q1H MDD 500 mg PRN (Reason: pain) Qty: 30 0RF Rx Instructions: 0.25-1.0 ml orally every 1 hour PRN; HOSPICE sertraline 50 mg tablet 50 mg PO DAILY Patient Comments: TAKE ONE TABLET BY MOUTH EVERY DAY bisacodyl [Dulcolax (bisacodyl)] 10 mg Suppository 10 mg WI DAILY potassium chloride 10 mEq capsule, extended release 10 meq PO BID Patient Comments: TAKE ONE CAPSULE BY MOUTH TWICE A DAY cholecalciferol (vitamin D3) [Vitamin D3] 25 mcg (1,000 unit) capsule 1,000 unit PO DAILY Metamucil 3.4 gram/5.4 gram powder 2 tsp PO ONCE Discharge Instructions Instructions: Epididymitis and orchitis Additional Instructions: take the antibiotics starting this evening Follow up with PCP within a week and with urology. DS: Summary Time Spent with Patient providing and/or coordinating discharge services: Greater than 30 minutes Status at Discharge Functional status at discharge: bed bound Overall status at discharge: patient is progressing back to baseline Mental Status: other Speech and Movement: mute Mood: congruent mood and other Affect: normal affect Quality:SDOH Health Related Social Needs: Health related social needs details Has two private ca regivers with him Exam Narrative Exam Narrative: GEN: Alert, non-verbal, doesn't follow commands but responds to touch and voice and cooperates with exam. No acute distress at rest. LUNGS: CTAB other that course sounds in bases, normal effort, normal effort CV: RRR with no murmurs, gallops, or rubs. ABD: active bowel sounds, soft, nontender to palpation, moderate soft distension. No masses. : penis appears normal, catheter in place. Single testicle, moderately firm, less swollen and not red. no fluctuance. Tender to palpation posteriorly. EXT: no cyanosis, clubbing, or edema. Psych Mental Status: other Speech and Movement: mute Mood: congruent mood and other Affect: normal affect DS: Data Vitals/I&O Vitals and I&O: Vital Signs Temperature 36.4 C L 03/17/25 07:17 Temperature Source Temporal Artery Scan 03/17/25 07:17 Pulse 56 L 03/17/25 07:17 Pulse Rhythm Regular 03/14/25 15:21 Pulse Strength Normal 03/14/25 15:21 Respiratory Rate 18 03/17/25 07:17 Respiratory Effort Normal 03/14/25 18:40 Respiratory Depth Normal 03/14/25 18:40 Respiratory Pattern Normal 03/14/25 18:40 Blood Pressure 150/79 H 03/17/25 07:17 Blood Pressure Mean 102 03/17/25 07:17 Blood Pressure Position Supine 03/14/25 12:30 Pulse Oximetry 95 03/17/25 07:17 Oxygen Delivery Method Room Air 03/17/25 07:17 Oxygen Flow Rate 0 03/17/25 07:17 Pain Level 0 03/16/25 19:45 Intake & Output 03/16/25 03/17/25 03/17/25 23:59 11:59 23:59 Intake Total 100 / 300 350 / 650 300 / 650 Output Total 950 / 1800 350 / 350 Balance -850 / -1500 0 / 300 300 / 300 Intake: IV 100 / 300 100 / 100 Oral 250 / 550 300 / 550 Output: Urine 950 / 1800 350 / 350 Other: Urine Color Pale Straw Yellow Urine Appearance Clear Sediment Urine Odor Normal Stool Size Small Moderate Stool Characteristics Soft Soft Brown PFSH All Active Problems (Updated 03/14/25 @ 18:52 by Kishor Trujillo) Colon wall thickening (Acute) Epididymitis with abscess (Acute) Abnormal urine sediment (Acute) Goals of care, counseling/discussion (Acute) Closed nondisplaced bimalleolar fracture of right ankle (Acute) Closed pilon fracture of right tibia (Acute) Edema (Acute) Atherosclerosis of artery of both lower extremities (Acute) Onychogryphosis (Acute) Nail dystrophy (Acute) Onychomycosis (Acute) Neurogenic bladder (Acute) Discharge planning issues (Acute) Neurogenic bladder (Acute) Diarrhea (Acute) Urinary catheter insertion/adjustment/removal (Acute) DVT prophylaxis (Acute) Community acquired pneumonia (Acute) Medical History (Updated 03/14/25 @ 18:52 by Kishor Trujillo) Bacteremia pseudomonas 08/2024 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) Acute UTI Urethral stricture Wheelchair dependent 2 assist Developmental non-verbal disorder Urinary retention Meningioma Neurofibromatosis 2 Surgical History S/P craniotomy S/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 He lives with Lana and her in [place] (in home care) and has other aides to help Time Spent with Patient Time Spent with Patient: <45 minutes Time was spent: preparing to see the patient(eg.review tests), obtaining and/or reviewing separately otained hiistory, ordering medications,tests, procedures, referring, communicating with other health care transport nurse, indepentently interpreting results, counseling the patient and care coordination
--- NOTE | 2025-03-17 18:06 | CMDISCH_ITS ---
Date of service: 03/17/25 Time of Service: 18:06 LACE Index Scoring Tool Questions: Length of Stay (in days): 3 Was the patient admitted via the E.D.?: Yes E.D. Visits: 2 Answers: Total Score: 8 Risk of Readmission: Low Risk Care Management Discharge Plan Reason for Hospitalization: Pain, epididymitis Discharge Plan: Hollis is discharged home with resumption of Hospice services and caregiver support. Patient was transported via private vehicle with caregivers. Pt will follow up with community providers and continue per discharge plan of care as directed. Patient/Family Education Needs: Review discharge instructions and plan to follow up after discharge. Discuss ask me three. Services Needed at Discharge: Home Health Care Services (Resumption of Hospice and caregiver supports. ) SDOH Health Related Social Needs: Health related social needs details Has two private ca regivers with him
== END 2025-03-17 15:47 | disposition home or self-care (01) | DRG 728 ==
LOC: ER 16:02 → MS 17:20
PROVIDERS: Admitting Provider Family Medicine; Emergency Provider General Practice; PCP Family Medicine; Responsible Provider Family Medicine; Visit Provider Family Medicine
DX: N45.4 Abscess of epididymis or testis (principal); N31.9 Neuromuscular dysfunction of bladder, unspecified; F81.89 Other developmental disorders of scholastic skills; R47.01 Aphasia; K52.9 Noninfective gastroenteritis and colitis, unspecified; Q53.10 Unspecified undescended testicle, unilateral; Z79.899 Other long term (current) drug therapy; I70.203 Unspecified atherosclerosis of native arteries of extremities, bilateral legs; B35.1 Tinea unguium; Z99.3 Dependence on wheelchair; Q85.02 Neurofibromatosis, type 2; Q85.03 Schwannomatosis; Z98.2 Presence of cerebrospinal fluid drainage device; N35.919 Unspecified urethral stricture, male, unspecified site; Z51.5 Encounter for palliative care; B96.20 Unspecified Escherichia coli [E. coli] as the cause of diseases classified elsewhere; K63.89 Other specified diseases of intestine
CPT/HCPCS: 00123; 80053; 83690; 87077; 87505; 96365; 99222; 99285; 74177; 76870; 81003; 81015; 83605; 83735; 85025; 87086; 87186; 99232; 99239; J0690; J0692; J0696; J3490

== ENCOUNTER → 2025-03-15 08:21 | Outpatient (BNVA) | payer MEDICARE, SELFPAY | PROVIDERS: PCP Family Medicine; Referring Provider Family Medicine; Visit Provider Urology ==

== ENCOUNTER → 2025-03-29 12:14 | Outpatient (BNVA) | payer MEDICARE, MEDICAID, SELFPAY | PROVIDERS: PCP Family Medicine; Referring Provider Family Medicine; Visit Provider Urology | DX: N45.4 Abscess of epididymis or testis (principal) | CPT/HCPCS: 99213 ==

== ENCOUNTER 2025-04-13 22:02 | Inpatient (IN) | payer MEDICARE, MEDICAID, SELFPAY ==
[2025-04-13] VITALS (9 sets, daily range): BP systolic 161; BP diastolic 75; PULSE 78–91; RESP 18–22; TEMP 37.6; O2SAT 72–97
--- NOTE | 2025-04-13 22:15 | DI.CT_ITS ---
Exam(s) CT CHEST/ABD/PEL W EXAM: CT CHEST/ABD/PEL W CLINICAL HISTORY: Nonverbal, abd pain, fever recent scrotal abscess. TECHNIQUE: Imaging Protocol: Axial computed tomography images with coronal and sagittal reformatted images were created and reviewed. Computer aided detection (CAD) was utilized. CONTRAST MATERIAL: Intravenous: Omnipaque 350 Contrast volume:65 ml Oral: no COMPARISON: CT ABD PELVIS WO CONTRAST from 07/27/[address] ABDOMEN PELVIS W from 03/14/2025 FINDINGS: CHEST: Pulmonary parenchyma: Limited evaluation due to expiratory changes. Increased densities at the posterior lung bases. No consolidation. No dominant measurable mass. Tracheobronchial tree: No bronchiectasis. No mucous plugging.No bronchial wall thickening. Mild narrowing of the AP dimension of the distal trachea, just above the level of the christy. Pleura: No effusion or pneumothorax. Mediastinum: Within normal limits. Pulmonary arteries: Suboptimally opacified. No visible emboli. Cardiovascular: Normal heart size. No pericardial effusion. Thoracic aorta non- dilated. Bones: Unremarkable for age. No lytic or blastic lesions. No compression fractures. Soft tissues: Bilateral gynecomastia. Ventriculoperitoneal shunt seen anteriorly. ABDOMEN and PELVIS: Streak artifact related to patient arm positioning. Liver: Normal density. No suspicious mass. Gallbladder and biliary tract: No evidence of stones or wall thickening. No biliary dilatation. Pancreas: Normal density, no abnormal calcifications or inflammatory process. Spleen: Normal. Kidneys: Normal size, contour and axis. No radiodense stones. No obstructive uropathy. No suspicious masses seen. Stable small bilateral renal cysts. Adrenal glands: No masses seen. Aorta: Abdominal portion non-dilated. Lymph nodes: Within normal limits. Soft tissues: Unremarkable. Bladder: Decompressed by Li catheter, not well evaluated. Wall again appears thickened, chronic finding. Patient has a history of neurogenic bladder.. Bowel: Thickening of the wall of the rectum again noted. The rectosigmoid is somewhat distended with stool. There is a small amount of fluid. Findings could indicate proctitis. Diverticulosis of the descending colon. The appendix appears normal. Overall there is a moderate quantity of stool. The stomach is somewhat distended with fluid. Small bowel is not distended. Peritoneal cavity: No ascites. No focal collection. No mesenteric inflammatory response. No free air. Bones: Unremarkable for age. Reproductive organs: Prostate slightly enlarged. Right hydrocele again noted. Previously noted low-density in the epididymis is no longer visible. There may be scrotal wall thickening. Again the left testicle is not seen. IMPRESSION: Lungs not well evaluated due to a expiratory changes. No gross evidence of consolidation. Wall thickening of the rectum could indicate proctitis. The rectum is somewhat distended with fecal material and a small amount of fluid. The colon is much less distended when compared with the previous exam. Chronic bladder wall thickening. Li catheter in place. Right hydrocele, superimposed infection not excluded. The left testicle is again not visualized. The preliminary [facility] report was reviewed. RADIATION DOSE DELIVERED: Total DLP DATA REPOSITORY: All CT scans at this facility are submitted to the National Radiology Data Registry (NRDR) Dose Index Registry (DIR) with the [employer] (ACR). RADIATION OPTIMIZATION: All CT scans at this facility use at least one of these dose optimization techniques: automated exposure control; mA and/or kV adjustment per patient size (includes targeted exams where dose is matched to clinical indication); or iterative reconstruction.
--- NOTE | 2025-04-13 22:50 | W.ED.GENAD ---
Discharge Plan Disposition Patient Disposition: Home Condition: Improving Discharge Details Clinical Impression: UTI (urinary tract infection) due to urinary indwelling catheter, Aspiration pneumonia Primary Care Provider: Freida Starks ED Provider: Rock Parsons Home Meds and New Rx's Prescriptions: No Action loratadine 10 mg tablet 10 mg PO DAILY amoxicillin 500 mg capsule 500 mg PO DAILY Qty: 90 0RF clotrimazole 1 % cream 1 applic topical TID PRN PRN (Reason: rash) Qty: 60 0RF ketoconazole 2 % cream 1 applic topical DAILY Qty: 120 6RF Rx Instructions: Apply to toenails once daily polyethylene glycol 3350 [GlycoLax] 527 GM powder 17 g PO DAILY lorazepam 1 mg tablet 1 mg PO Q4H PRN (Reason: anxiety, dyspnea, nausea) Qty: 7 2RF Rx Instructions: hospice morphine concentrate 100 mg/5 mL (20 mg/mL) solution See Rx Instructions PO Q1H MDD 500 mg PRN (Reason: pain) Qty: 30 0RF Rx Instructions: 0.25-1.0 ml orally every 1 hour PRN; HOSPICE sertraline 50 mg tablet 50 mg PO DAILY Patient Comments: TAKE ONE TABLET BY MOUTH EVERY DAY bisacodyl [Dulcolax (bisacodyl)] 10 mg Suppository 10 mg TX DAILY potassium chloride 10 mEq capsule, extended release 10 meq PO BID Patient Comments: TAKE ONE CAPSULE BY MOUTH TWICE A DAY cholecalciferol (vitamin D3) [Vitamin D3] 25 mcg (1,000 unit) capsule 1,000 unit PO DAILY Metamucil 3.4 gram/5.4 gram powder 2 tsp PO ONCE HPI General Date/Time Provider Initiated Documentation: 04/13/25 22:05. 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 Patient's caregiver is at bedside, they state that for the last 2 days he has appeared to be in discomfort, writhing around much more than normal. They were concerned that it may be related to his bladder, and so he was given Pyridium yesterday. His Li catheter was flushed at that time. He had a large bowel movement today with no blood. He had no vomiting. He had a mild fever at home, as well as here. History is otherwise obviously limited side for observations of the caregivers. He has had some mild decrease in urinary output, but otherwise has been stable. He is on hospice and takes lorazepam and morphine at baseline. Related Data Home Medications ?Medication ?Instructions ?Recorded ?Confirmed polyethylene glycol 3350 17 17 g PO DAILY 08/25/15 03/29/25 gram/dose oral powder (GlycoLax) bisacodyl 10 mg rectal suppository 10 mg TX DAILY 04/26/19 03/29/25 (Dulcolax (bisacodyl)) clotrimazole 1 % topical cream 1 applic topical TID PRN PRN rash 04/27/21 03/29/25 #60 grams ketoconazole 2 % topical cream 1 applic topical DAILY #120 grams 02/22/24 03/29/25 sertraline 50 mg tablet 50 mg PO DAILY 05/21/24 03/29/25 loratadine 10 mg tablet 10 mg PO DAILY 06/01/24 03/29/25 lorazepam 1 mg tablet 1 mg PO Q4H PRN anxiety, dyspnea, 08/14/24 03/29/25 nausea #7 tabs morphine concentrate 100 mg/5 mL See Rx Instructions PO Q1H PRN 01/30/25 03/29/25 (20 mg/mL) oral solution pain #30 mL cholecalciferol (vitamin D3) 25 1,000 unit PO DAILY 03/14/25 03/29/25 mcg (1,000 unit) capsule (Vitamin D3) potassium chloride 10 mEq 10 meq PO BID 03/14/25 03/29/25 capsule,extended release psyllium husk 3.4 gram/5.4 gram 2 tsp PO ONCE 03/14/25 03/29/25 oral powder (Metamucil) amoxicillin 500 mg capsule 500 mg PO DAILY antibiotic #90 caps 03/29/25 03/29/25 Previous Rx's ?Medication ?Instructions ?Recorded clotrimazole 1 % topical cream 1 applic topical TID PRN PRN rash 04/27/21 #60 grams ketoconazole 2 % topical cream 1 applic topical DAILY #120 grams 02/22/24 lorazepam 1 mg tablet 1 mg PO Q4H PRN anxiety, dyspnea, 08/14/24 nausea #7 tabs morphine concentrate 100 mg/5 mL See Rx Instructions PO Q1H PRN 01/30/25 (20 mg/mL) oral solution pain #30 mL amoxicillin 500 mg capsule 500 mg PO DAILY antibiotic #90 caps 03/29/25 Allergies Allergy/AdvReac Type Severity Reaction Status Date / Time latex Allergy Intermediate rash Verified 03/14/25 13:18 carbamazepine (From Tegretol) Allergy Unknown Unknown Verified 03/14/25 13:18 gabapentin (From Neurontin) Allergy Unknown Unknown Verified 03/14/25 13:18 risperidone (From Risperdal) Allergy Unknown Unknown Verified 03/14/25 13:18 Sulfa (Sulfonamide AdvReac Mild Per pt. Verified 03/14/25 13:18 Antibiotics) mother causes stomach ache haldol AdvReac Unknown Other (See Uncoded 03/14/25 13:18 Comment) General Stated Complaint: GenMedical SCHUYLER: 3 Exam Narrative Exam Narrative: 1.Const: Well-nourished, Well-developed, appearing stated age 2.Eyes: PERRL, bilateral conjunctivitis with mild mucopurulent discharge 3.ENT: Atraumatic external nose and ears. Moist MM. Neck: Symmetric, trachea midline, No thyromegaly. 4.CVS: +S1/S2, Peripheral pulses 2+ and equal in all extremities. Brisk capillary refill in all extremities. 5.RESP: Unlabored respiratory effort. Clear to auscultation bilaterally. No wheezes rales or rhonchi 6.GI: Soft, Nontender/Nondistended, No hepatosplenomegaly. No guarding or rebound. No focal tenderness on palpation however exam is challenging to ascertain true tenderness. Genital exam shows no focal tenderness in the penis or scrotum or testicles 7.MSK: Normocephalic/Atraumatic, Extremities w/o deformity or ttp No cyanosis or clubbing, Normal movement of all extremities 8.Skin: Warm, Dry. No rashes or lesions. 9.Neuro: activities specialist II-XII grossly intact. Sensation grossly intact, no focal neurologic deficits. 10.Psych: (AAO) x0. At relative baseline per caregiver Course Vital Signs Vital signs: Vital Signs Temperature 37.6 C H 04/13/25 22:02 Pulse 91 H 04/13/25 22:02 Respiratory Rate 18 04/13/25 22:02 Blood Pressure 161/75 H 04/13/25 22:02 Pulse Oximetry 93 04/13/25 22:02 Temperature 37.6 C H 04/13/25 22:09 Temperature Source Axillary 04/13/25 22:02 Pulse 91 H 04/13/25 22:09 Respiratory Rate 18 04/13/25 22:09 Blood Pressure 161/75 H 04/13/25 22:09 Blood Pressure Position Supine 04/13/25 22:02 Pulse Oximetry 93 04/13/25 22:09 Oxygen Delivery Method Room Air 04/13/25 22:02 Oxygen Flow Rate 0 04/13/25 22:02 Pain Level 6 04/13/25 22:09 Lab/Test Results Lab/Test Results: 04/13/25 22:28 Blood Blood Culture - Pending 04/13/25 22:28 Blood Blood Culture - Pending Medical Decision Making This is a 59-year-old male with past medical history of cognitive delay, 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 Patient's caregiver is at bedside, they state that for the last 2 days he has appeared to be in discomfort, writhing around much more than normal. They were concerned that it may be related to his bladder, and so he was given Pyridium yesterday. His Li catheter was flushed at that time. He had a large bowel movement today with no blood. He had no vomiting. He had a mild fever at home, as well as here. History is otherwise obviously limited side for observations of the caregivers. He has had some mild decrease in urinary output, but otherwise has been stable. He is on hospice and takes lorazepam and morphine at baseline. Exam demonstrates a stable appearing male, heart rate is 91, borderline fever, conjunctivitis with mild discharge, questionable abdominal tenderness. Differential is broad. He has no nuchal rigidity or stiffness to suspect meningitis. Concern for potential viral etiology including COVID or influenza. Will test for these. Urinary pathology, diverticulitis appendicitis is certainly of concern as well. Will get CT imaging of the chest abdomen pelvis and groin, get blood cultures and labs, gently rehydrate, monitor closely and reassess. 2:30 AM Patient did require mild sedation for CAT scan as he would not stop moving without it. Patient chronically takes morphine and lorazepam PRNs at home. Patient was given morphine on arrival, which did not change his symptoms or his disposition/movement. So we did give 1 mg of IV Ativan, and patient fell asleep shortly thereafter. He was breathing well, did need some mild supplemental oxygen when he dipped down to the low 90s/high 80s. However he is otherwise quite comfortable. Unfortunately this also did bring his blood pressure down to the 80s systolic, however patient was given a bolus of IV fluids and after that his blood pressure normalized to 100 systolic. Laboratory workup shows no significant white count or left shift or bandemia for that matter. He does have mild lymphopenia which may be suggestive of a viral component. However his COVID flu and RSV testing was negative. Lactate was normal. BUN of 20 and a creatinine of 1.4 was noted, urinalysis shows positive nitrites, small leuk esterase and 20-[address] imaging showed bilateral consolidation versus atelectasis. Radiology felt there may be a component of aspirate but was uncertain. CT scan of the abdomen shows bladder thickening, a scrotal hydrocele, but no other acute component. Patient was initially started on Cipro for the UTI. I did contact the hospitalist Dr. Franco while to discuss admission for the patient's UTI in addition to his fever and initial tachycardia and source of infection. We discussed the pulmonary findings, and at this time out of an abundance of caution we will add Unasyn and doxycycline for MRSA and aspiration coverage. Patient will be admitted for further management. I have extensively reviewed the treatment plan with the patient. I have addressed all patient concerns at this time. I have also discussed the plan with the admitting physician and they agree with the current assessment and plan and have agreed to assume responsibility for the patient. All parties demonstrate verbal understanding and agreement with our assessment and plan at this time. The documentation in this chart was dictated using [employer] dictation software. Please excuse any dictation errors. FINDINGS: Trachea: Evidence of mild tracheomalacia at the christy. Lungs: Bilateral dependent nonspecific consolidation of the lower lobes. Pleural spaces: Unremarkable. No pneumothorax. No pleural effusion. Heart: The heart is normal in size. There are no pericardial fluid collections. Esophagus: No esophageal thickening. Mediastinal space: There are no enlarged mediastinal lymph nodes or masses. Lymph nodes: There are no enlarged hilar lymph nodes. Vasculature: Unremarkable. No aortic aneurysm. Liver: No enhancing masses are seen. Bones/joints: No acute fracture. Moderate-sized Schmorl's node on the inferior endplate of T8. Soft tissues: Unremarkable. IMPRESSION: 1. Bilateral dependent nonspecific consolidation of the lower lobes. Findings may be secondary to atelectasis. Pneumonia, such as aspiration related, may present a similar picture. 2. Evidence of mild tracheomalacia at the christy. FINDINGS: Lungs: consolidation in the visualized lung bases. Liver: No hepatomegaly. There are no enhancing liver masses. Gallbladder and biliary ducts: No calcified stones. No ductal dilation. Pancreas: Normal in size and homogeneous enhancement. No ductal dilation. Spleen: Normal. No splenomegaly. Adrenal glands: Normal. No mass. Kidneys and ureters: There is no hydronephrosis. No renal or obstructive ureteral calculi are identified. There are bilateral extrarenal pelvises. In the posterior right kidney, there is an indeterminate 10 mm hypodensity, well-circumscribed and stable in size but increased in density from the comparison examination and minimally changed in size from the CT scan of 2019. Stomach and bowel: There is fluid throughout the small bowel without dilatation. Moderate fecal burden throughout the ascending colon and sigmoid. The sigmoid contains solid and liquid stool suggestive of a diarrheal illness such as colitis or enteritis. Appendix: No evidence of appendicitis. Intraperitoneal space: Ventriculoperitoneal shunt tip in the right subdiaphragmatic space. Vasculature: There is no abdominal aortic aneurysm. Lymph nodes: No enlarged retroperitoneal or mesenteric lymph nodes. Urinary bladder: The bladder is entirely decompressed by Li catheter. The bladder wall appears thickened. Reproductive: There is a scrotal hydrocele (coronal series 9, image 20; axial series 7, image 138). Bones/joints: No acute fracture. Soft tissues: Normal. IMPRESSION: 1. Bladder wall thickening suspicious for cystitis and/or chronic outflow obstruction, in spite of being decompressed by Li catheter. 2. In the posterior right kidney, there is an indeterminate 10 mm hypodensity, well-circumscribed and stable in size but increased in density from the comparison examination and minimally changed in size from the CT scan of 2019. 3. There is a scrotal hydrocele (coronal series 9, image 20; axial series 7, image 138). Consider scrotal ultrasound if clinically indicated. 4. The sigmoid contains solid and liquid stool suggestive of a diarrheal illness such as colitis or enteritis. Recent enema administration may present a similar picture. Findings were discussed with ROCK PARSONS at 04/14/2025 1:24 AM EDT. Thank you for allowing us to participate in the care of your patient. Dictated and Authenticated by: Endy Ward MD 04/14/2025 1:24 AM Eastern Time ([place] & [place]) Quality:SDOH Health Related Social Needs: Health related social needs details Has two private caregivers with him [facility] All Active Problems (Updated 04/14/25 @ 02:40 by Rock Prasons DO) Aspiration pneumonia (Acute) UTI (urinary tract infection) due to urinary indwelling catheter (Acute) Colon wall thickening (Acute) Epididymitis with abscess (Acute) Abnormal urine sediment (Acute) Goals of care, counseling/discussion (Acute) Closed nondisplaced bimalleolar fracture of right ankle (Acute) Closed pilon fracture of right tibia (Acute) Edema (Acute) Atherosclerosis of artery of both lower extremities (Acute) Onychogryphosis (Acute) Nail dystrophy (Acute) Onychomycosis (Acute) Neurogenic bladder (Chronic) Community acquired pneumonia (Acute) Urinary catheter insertion/adjustment/removal (Acute) Diarrhea (Acute) Neurogenic bladder (Acute) Discharge planning issues (Acute) Medical History Bacteremia pseudomonas 08/2024 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 He lives with Lana and her in [place] (in home care) and has other aides to help
[2025-04-13 23:00] LABS: Abs Immature Grans 0.01 10^3/uL (0.0-0.06); HCT 40.7 % (40.0-50.0); HGB 12.9 g/dL (13.5-17.5); Immature Grans % 0.1 %; MCH 28.0 pg (27.0-33.0); MCHC 31.7 % (32.0-36.0); MCV 89 fL (80-95); MPV 11.2 fL (8.0-11.0); Platelet Count 155 10^3/uL (130-400); RBC 4.60 10^6/uL (4.36-5.78); RDW 13.6 % (11.8-14.1); RDW-SD 44.0 fL; WBC 6.99 10^3/uL (4.4-10.8)
[2025-04-13] MEDS: MORPHine 4 MG/ML SYR IVP (23:05)
[2025-04-13] MEDS: ACETAMINOPHEN 1,000 MG/100 ML BAG 400 MG IVPB (23:11)
[2025-04-13] MEDS: Normal Saline 500 ML IV (23:12)
[2025-04-13 23:18] LABS: Glucose Negative (Negative)
[2025-04-13 23:22] LABS: ALT 33 U/L (16-63); AST 21 U/L (15-37); Albumin 3.5 g/dL (3.4-5.0); Alkaline Phosphatase 115 U/L (46-116); Anion Gap 6.0 mmol/L (3-11); BUN 20 mg/dL (7-18); Bilirubin, Total 0.3 mg/dL (0.2-1.0); CO2 30.0 mmol/L (21.0-32.0); Calcium 8.9 mg/dL (8.5-10.1); Chloride 104 mmol/L (98-107); Estimated GFR 57.54 (mL/min/1.73m2); Glucose 103 mg/dL (74-106); Potassium 4.6 mmol/L (3.5-5.1); Sodium 140 mmol/L (136-145); Total Protein 6.8 g/dL (6.4-8.2)
[2025-04-13 23:23] LABS: WBC 20-50 HPF (0-5)
[2025-04-13] MEDS: LORazepam 20 MG/10 ML VIAL IVP (23:36)
[2025-04-13 23:49] LABS: COVID-19 PCR Negative (Negative); RSV PCR Negative (Negative)
[2025-04-14] VITALS (50 sets, daily range): BP systolic 77–148; BP diastolic 32–87; PULSE 60–110; RESP 3–18; TEMP 35.9–37.8; O2SAT 91–100
[2025-04-14] LABS: Procalcitonin < 0.10 ng/mL
[2025-04-14] MEDS: Normal Saline - Diluent 50 ML VIAL IJ
[2025-04-14] MEDS: Omnipaque 350 MG/ML 100 ML BTL IJ (00:01)
--- NOTE | 2025-04-14 01:25 | DI.VRAD_ITS ---
PROCEDURE INFORMATION: Exam: CT Chest With Contrast; Diagnostic Exam date and time: 04/13/2025 11:43 PM Age: 59 years old Clinical indication: Abdominal pain; Other: Nonverbal, abd pain, fever, h/o shunt; H/o shunt per provider; Additional info: Nonverbal, abd pain, fever recent scrotal abscess TECHNIQUE: Imaging protocol: Diagnostic computed tomography of the chest with contrast. 3D rendering (Not supervised by radiologist): MIP and/or 3D reconstructed images were created by the technologist. Contrast material: OMNI 350; Contrast volume: 65 ml; Contrast route: INTRAVENOUS (IV); COMPARISON: CT ABDOMEN PELVIS W 02/12/2025 14:34 FINDINGS: Trachea: Evidence of mild tracheomalacia at the christy. Lungs: Bilateral dependent nonspecific consolidation of the lower lobes. Pleural spaces: Unremarkable. No pneumothorax. No pleural effusion. Heart: The heart is normal in size. There are no pericardial fluid collections. Esophagus: No esophageal thickening. Mediastinal space: There are no enlarged mediastinal lymph nodes or masses. Lymph nodes: There are no enlarged hilar lymph nodes. Vasculature: Unremarkable. No aortic aneurysm. Liver: No enhancing masses are seen. Bones/joints: No acute fracture. Moderate-sized Schmorl's node on the inferior endplate of T8. Soft tissues: Unremarkable. IMPRESSION: 1. Bilateral dependent nonspecific consolidation of the lower lobes. Findings may be secondary to atelectasis. Pneumonia, such as aspiration related, may present a similar picture. 2. Evidence of mild tracheomalacia at the christy. PROCEDURE INFORMATION: Exam: CT Abdomen And Pelvis With Contrast Exam date and time: 04/13/2025 11:43 PM Age: 59 years old Clinical indication: Abdominal pain; Other: Nonverbal, abd pain, fever, h/o shunt; H/o shunt per provider; Additional info: Nonverbal, abd pain, fever recent scrotal abscess TECHNIQUE: Imaging protocol: Computed tomography of the abdomen and pelvis with contrast. 3D rendering (Not supervised by radiologist): MIP and/or 3D reconstructed images were created by the technologist. Contrast material: OMNI 350; Contrast volume: 65 ml; Contrast route: INTRAVENOUS (IV); COMPARISON: 1. CT ABDOMEN PELVIS W 02/12/2025 14:[address] ABDOMEN PELVIS W 03/19/2023 00:[address] ABDOMEN PELVIS W 04/05/2019 15:36 FINDINGS: Lungs: consolidation in the visualized lung bases. Liver: No hepatomegaly. There are no enhancing liver masses. Gallbladder and biliary ducts: No calcified stones. No ductal dilation. Pancreas: Normal in size and homogeneous enhancement. No ductal dilation. Spleen: Normal. No splenomegaly. Adrenal glands: Normal. No mass. Kidneys and ureters: There is no hydronephrosis. No renal or obstructive ureteral calculi are identified. There are bilateral extrarenal pelvises. In the posterior right kidney, there is an indeterminate 10 mm hypodensity, well-circumscribed and stable in size but increased in density from the comparison examination and minimally changed in size from the CT scan of 2019. Stomach and bowel: There is fluid throughout the small bowel without dilatation. Moderate fecal burden throughout the ascending colon and sigmoid. The sigmoid contains solid and liquid stool suggestive of a diarrheal illness such as colitis or enteritis. Appendix: No evidence of appendicitis. Intraperitoneal space: Ventriculoperitoneal shunt tip in the right subdiaphragmatic space. Vasculature: There is no abdominal aortic aneurysm. Lymph nodes: No enlarged retroperitoneal or mesenteric lymph nodes. Urinary bladder: The bladder is entirely decompressed by Li catheter. The bladder wall appears thickened. Reproductive: There is a scrotal hydrocele (coronal series 9, image 20; axial series 7, image 138). Bones/joints: No acute fracture. Soft tissues: Normal. IMPRESSION: 1. Bladder wall thickening suspicious for cystitis and/or chronic outflow obstruction, in spite of being decompressed by Li catheter. 2. In the posterior right kidney, there is an indeterminate 10 mm hypodensity, well-circumscribed and stable in size but increased in density from the comparison examination and minimally changed in size from the CT scan of 2019. 3. There is a scrotal hydrocele (coronal series 9, image 20; axial series 7, image 138). Consider scrotal ultrasound if clinically indicated. 4. The sigmoid contains solid and liquid stool suggestive of a diarrheal illness such as colitis or enteritis. Recent enema administration may present a similar picture. Findings were discussed with JIMENA PARSONS at 04/14/2025 1:24 AM EDT. Dictated and Authenticated by: Endy Ward MD. Orderin Katheryn Wilkerson MD
[2025-04-14] MEDS: CIPROFLOXACIN 400 MG/200 ML BAG 200 MG IVPB (01:32)
[2025-04-14] MEDS: Normal Saline 1,000 ML 1000 ML IV (01:50)
--- NOTE | 2025-04-14 01:58 | W.PM.HP.N ---
Date of service: 04/14/25 Time of Service: 01:58 Assessment and Plan Assessment and plan (1) Complicated UTI (urinary tract infection): Start date: 04/14/25 Status: Acute Assessment and plan: This is a 59-year-old essentially bedridden nonverbal patient who has chronic indwelling Li catheter for neurogenic bladder and frequent UTIs. He is not septic with this hospitalization but did have a drop in his blood pressure when given Ativan and this has recovered with fluid resuscitation and avoiding sedatives. He will continue on Unasyn IV with doxycycline with the possibility of recurrent aspiration though caregivers think that the imaging is always about the same according to the reviewed with the PCP. He was on amoxicillin alone before admission and may be expanded to Augmentin at discharge which would also cover his possible scrotal infection with hydrocele with urology following this problem. He will be returning to his caregiver home at discharge. His father still involved with his decision making. He remains a full code. (2) Aspiration pneumonia: Start date: 04/14/25 Status: Acute Assessment and plan: This may be an acute problem or chronic issue with patient having problems not chewing before swallowing. He will be watched closely on a modified diet with bite-size food and thin liquids. If there is a question of aspiration, repeat swallow evaluation can be reperformed before discharge. (3) Epididymitis with abscess: Status: Chronic Assessment and plan: Patient was on treatment for this and imaging did not state whether this is improved or worsened. This can be reviewed by urology while patient is in hospital. I did not reexamine his scrotum. (4) Neurogenic bladder: Status: Chronic Assessment and plan: Chronic indwelling Li catheter with recurrent UTIs. Urine cultures were performed as well as blood cultures. Li catheter was replaced. Continue follow-up with urology. (5) Developmental non-verbal disorder: Assessment and plan: Patient has been nonverbal since his craniotomy for brain tumor associated with neurofibromatosis. He is full care but remains a full code. (6) Neurofibromatosis 2: Assessment and plan: This probably appears to be stable but patient has been compromised by this disease over his lifetime. 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 He will follow-up with neurology/neurosurgery as needed. He remains a full code though he is markedly compromised. History of Present Illness History of Present Illness Chief Complaint: 2-day history of abdominal discomfort and now low-grade fever. 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 He has full-time care. He does have problems with aspiration at times but when given small bite-size food he swallows well. He does not automatically chew. He presents with a 2-day history of abdominal discomfort which causes him to writhing in his bed and does have a chronic indwelling Li catheter because of neurogenic bladder. He does have frequent UTIs. He has been no blood in his Li catheter and he did have a large normal bowel movement just prior to admission. He usually is constipated. His caregivers have done it excellent job with him at home with skin care and feeding and patient was on hospice in August 2024 because of recurrent sepsis but is coming off hospice. He has not used his oral morphine until just recently and has rarely used his Ativan prescribed in August 2023. This is consistent with review of his PDMP report. In the ED the patient was found to have a UTI and possible aspiration pneumonia though his caregiver states that his imaging always shows the same basilar changes. Radiology report did review comparisons. Patient did not have an elevated WBC and his CKD was at baseline. Urine culture and blood culture were performed. Patient was initiated on Cipro initially but this was switched to Unasyn with doxycycline to cover possibility of pneumonia as well. Patient has recent been on amoxicillin and was still on this treatment for recent admission for scrotal abscess with hydrocele and this reappearing on CT imaging with this ED visit. This should be compared to previous imaging. Dr. House is seeing the patient for his chronic indwelling Li catheter with neurogenic bladder and for this problem of abscess which is resolving without drainage thus far. It should also respond to Unasyn. The patient was admitted for continued IV antibiotic therapy and close monitoring. He is a full code at this time and coming off hospice. His father is hesitant to make, no code. Review of Systems Narrative: 13 point review of system otherwise unrevealing or stable per caregivers with patient nonverbal. PFSH All Active Problems (Updated 04/14/25 @ 02:43 by Quinn Hernandez) Complicated UTI (urinary tract infection) (Acute) Aspiration pneumonia (Acute) UTI (urinary tract infection) due to urinary indwelling catheter (Acute) Colon wall thickening (Acute) Epididymitis with abscess (Chronic) Abnormal urine sediment (Acute) Goals of care, counseling/discussion (Acute) Closed nondisplaced bimalleolar fracture of right ankle (Acute) Closed pilon fracture of right tibia (Acute) Edema (Acute) Atherosclerosis of artery of both lower extremities (Acute) Onychogryphosis (Acute) Nail dystrophy (Acute) Onychomycosis (Acute) Neurogenic bladder (Chronic) Community acquired pneumonia (Acute) Urinary catheter insertion/adjustment/removal (Acute) Diarrhea (Acute) Neurogenic bladder (Acute) Discharge planning issues (Acute) Medical History Bacteremia pseudomonas 08/2024 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) Acute UTI Urethral stricture Wheelchair dependent 2 assist Developmental non-verbal disorder Urinary retention Meningioma Neurofibromatosis 2 Surgical History S/P craniotomy S/P JUNIOR ACCOUNTANT BOOKKEEPER shunt Social History Smoking/Tobacco Use Status: Never Smoking risk assessment performed?: Yes Alcohol Intake: never Drug use: Never Substance use type: does not use Caregiver/Support person: Yes (parents are primary caretakers) Household members: family Housing: assisted living facility Do you feel safe at home: Yes Do you feel safe in your relationship?: Yes Additional Social history: sister Tarah is guardian. He lives with [facility] and her in [place] (in home care) and has other aides to help Meds Allergies and Home Medications Allergies Allergy/AdvReac Type Severity Reaction Status Date / Time latex Allergy Intermediate rash Verified 03/14/25 13:18 carbamazepine (From Tegretol) Allergy Unknown Unknown Verified 03/14/25 13:18 gabapentin (From Neurontin) Allergy Unknown Unknown Verified 03/14/25 13:18 risperidone (From Risperdal) Allergy Unknown Unknown Verified 03/14/25 13:18 Sulfa (Sulfonamide AdvReac Mild Per pt. Verified 03/14/25 13:18 Antibiotics) mother causes stomach ache haldol AdvReac Unknown Other (See Uncoded 03/14/25 13:18 Comment) Home Medications ?Medication ?Instructions ?Recorded ?Confirmed ?Type clotrimazole 1 % topical cream 1 applic topical TID PRN PRN rash 04/27/21 04/14/25 Rx #60 grams sertraline 50 mg tablet 50 mg PO DAILY 05/21/24 04/14/25 History loratadine 10 mg tablet 10 mg PO DAILY 06/01/24 04/14/25 History lorazepam 1 mg tablet 1 mg PO Q4H PRN anxiety, dyspnea, 08/14/24 04/14/25 Rx nausea #7 tabs morphine concentrate 100 mg/5 mL See Rx Instructions PO Q1H PRN 01/30/25 04/14/25 Rx (20 mg/mL) oral solution pain #30 mL cholecalciferol (vitamin D3) 25 1,000 unit PO DAILY 03/14/25 04/14/25 History mcg (1,000 unit) capsule (Vitamin D3) potassium chloride 10 mEq 10 meq PO BID 03/14/25 04/14/25 History capsule,extended release amoxicillin 500 mg capsule 500 mg PO DAILY antibiotic #90 caps 03/29/25 04/14/25 Rx phenazopyridine 100 mg tablet 100 mg PO TID 04/14/25 04/14/25 History Exam Narrative Exam Narrative: General: Patient appears appropriate for age, lying in bed with occasional deep breaths and shallow breathing otherwise having visit a bit IV Ativan in the ED for imaging. He is not on oxygen. His eyes are closed and he does appear to respond to some verbal commands but does not open his eyes. He is nonverbal. He appears comfortable. HEENT: Normocephalic, eyes with pupils equal and react to light symmetrically, extraocular movement intact and sclera anicteric when eyelids are forced open to examine patient. Oropharynx with moist mucosa. Neck: Supple without JVD. Back: Stooped posture with no CVA tenderness. Lungs: Occasional coarse crackle left more than right lower lung kaye with no expiratory wheeze and no focalizing rales or rhonchi. Heart: Regular rate and rhythm with no murmurs gallops appreciated. Abdomen: Slightly protuberant and obese but soft and nontender to palpation with no focalizing tenderness. No focalizing guarding. Bowel sounds are positive in all quadrants. Genitalia/rectal: Exam deferred. Patient does have adult diaper and Li catheter in place. Skin: Pale, warm and dry. Extremities: Without clubbing, cyanosis or grossly pitting edema though appears to be nonpitting edema both upper and lower extremities. Patient is lying with his knees slightly flexed and in the position. Fair capillary refill. Neuro: Cranial nerves II through XII appear to be grossly intact the patient appears to be able to hear commands. He is nonverbal. He appears to move all extremities spontaneously but has diffuse muscle wasting from nonuse. No tremor noted. Psych: Patient is nonverbal and exam not possible. He is not agitated. Results Imaging Imaging Studies: Exam: CT Chest With Contrast; Diagnostic Exam date and time: 04/13/2025 11:43 PM Age: 59 years old Clinical indication: Abdominal pain; Other: Nonverbal, abd pain, fever, h/o shunt; H/o shunt per provider; Additional info: Nonverbal, abd pain, fever recent scrotal abscess COMPARISON: CT ABDOMEN PELVIS W 02/12/2025 14:34 FINDINGS: Trachea: Evidence of mild tracheomalacia at the christy. Lungs: Bilateral dependent nonspecific consolidation of the lower lobes. Pleural spaces: Unremarkable. No pneumothorax. No pleural effusion. Heart: The heart is normal in size. There are no pericardial fluid collections. Esophagus: No esophageal thickening. Mediastinal space: There are no enlarged mediastinal lymph nodes or masses. Lymph nodes: There are no enlarged hilar lymph nodes. Vasculature: Unremarkable. No aortic aneurysm. Liver: No enhancing masses are seen. Bones/joints: No acute fracture. Moderate-sized Schmorl's node on the inferior endplate of T8. Soft tissues: Unremarkable. IMPRESSION: 1. Bilateral dependent nonspecific consolidation of the lower lobes. Findings may be secondary to atelectasis. Pneumonia, such as aspiration related, may present a similar picture. 2. Evidence of mild tracheomalacia at the christy. PROCEDURE INFORMATION: Exam: CT Abdomen And Pelvis With Contrast Exam date and time: 04/13/2025 11:43 PM Age: 59 years old Clinical indication: Abdominal pain; Other: Nonverbal, abd pain, fever, h/o shunt; H/o shunt per provider; Additional info: Nonverbal, abd pain, fever recent scrotal abscess COMPARISON: 1. CT ABDOMEN PELVIS W 02/12/2025 14:[address] ABDOMEN PELVIS W 03/19/2023 00:[address] ABDOMEN PELVIS W 04/05/2019 15:36 FINDINGS: Lungs: consolidation in the visualized lung bases. Liver: No hepatomegaly. There are no enhancing liver masses. Gallbladder and biliary ducts: No calcified stones. No ductal dilation. Pancreas: Normal in size and homogeneous enhancement. No ductal dilation. Spleen: Normal. No splenomegaly. Adrenal glands: Normal. No mass. Kidneys and ureters: There is no hydronephrosis. No renal or obstructive ureteral calculi are identified. There are bilateral extrarenal pelvises. In the posterior right kidney, there is an indeterminate 10 mm hypodensity, well-circumscribed and stable in size but increased in density from the comparison examination and minimally changed in size from the CT scan of 2019. Stomach and bowel: There is fluid throughout the small bowel without dilatation. Moderate fecal burden throughout the ascending colon and sigmoid. The sigmoid contains solid and liquid stool suggestive of a diarrheal illness such as colitis or enteritis. Appendix: No evidence of appendicitis. Intraperitoneal space: Ventriculoperitoneal shunt tip in the right subdiaphragmatic space. Vasculature: There is no abdominal aortic aneurysm. Lymph nodes: No enlarged retroperitoneal or mesenteric lymph nodes. Urinary bladder: The bladder is entirely decompressed by Li catheter. The bladder wall appears thickened. Reproductive: There is a scrotal hydrocele (coronal series 9, image 20; axial series 7, image 138). Bones/joints: No acute fracture. Soft tissues: Normal. IMPRESSION: 1. Bladder wall thickening suspicious for cystitis and/or chronic outflow obstruction, in spite of being decompressed by Li catheter. 2. In the posterior right kidney, there is an indeterminate 10 mm hypodensity, well-circumscribed and stable in size but increased in density from the comparison examination and minimally changed in size from the CT scan of 2019. 3. There is a scrotal hydrocele (coronal series 9, image 20; axial series 7, image 138). Consider scrotal ultrasound if clinically indicated. 4. The sigmoid contains solid and liquid stool suggestive of a diarrheal illness such as colitis or enteritis. Recent enema administration may present a similar picture. Labs 04/13/25 22:50 04/13/25 22:50 Labs: Laboratory Results - last 24 hr 04/13/25 04/13/25 04/13/25 22:50 22:55 23:00 WBC 6.99 RBC 4.60 Hgb 12.9 L Hct 40.7 MCV 89 MCH 28.0 MCHC 31.7 L RDW 13.6 Plt Count 155 MPV 11.2 H Immature Gran % 0.1 Neutrophils % 74.4 Lymphocytes % 11.4 Monocytes % 8.4 Eosinophils % 5.0 Basophils % 0.7 Nucleated RBC % 0.0 Absolute Neutrophils 5.19 Absolute Lymphocytes 0.80 L Absolute Monocytes 0.59 Absolute Eosinophils 0.35 Absolute Basophils 0.05 VBG Lactate 0.9 Sodium 140 Potassium 4.6 Chloride 104 Carbon Dioxide 30.0 Anion Gap 6.0 BUN 20 H Creatinine 1.4 H Est GFR (CKD-EPI 2020) 57.54 Glucose 103 Calcium 8.9 Total Bilirubin 0.3 AST 21 ALT 33 Alkaline Phosphatase 115 Total Protein 6.8 Albumin 3.5 Procalcitonin < 0.10 Urine Color Yellow Urine Clarity Clear Urine pH 6.0 Ur Specific [place] >= 1.030 H Urine Protein 100 H Urine Ketones Negative Urine Blood Small H Urine Nitrite Positive H Urine Bilirubin Negative Urine Urobilinogen 0.2 Ur Leukocyte Esterase Small H Urine RBC 10-20 H Urine WBC 20-50 H Ur Epithelial Cells Few Urine Crystals Negative Urine Bacteria Few Urine Casts Negative Urine Mucus Negative Ur Culture Indicated? C&S Done As Ordered Urine Glucose Negative COVID-19 Source Nasopharynx SARS-CoV-2 (PCR) Negative Influenza Type A (PCR) Negative Influenza Type B (PCR) Negative RSV (PCR) Negative Last Vital Signs Temp 37.6 C H 04/13/25 22:09 Pulse 75 04/14/25 00:20 Resp 22 04/13/25 23:15 BP 84/38 L 04/14/25 00:17 Pulse Ox 99 04/14/25 00:20 Time Spent Time spent with Patient: >75 minutes Time was spent: preparing to see the patient(eg.review tests), obtaining and/or reviewing separately otained hiistory (Spoke to caregivers, Albaro Lobo and his .), ordering medications,tests, procedures, indepentently interpreting results and care coordination
[2025-04-14] MEDS: AMPICILLIN/SULBACTAM 3 GM in Normal Saline 100 ML IVPB ×4 (02:31→21:20)
[2025-04-14] MEDS: DOXYCYCLINE 100 MG in Normal Saline 100 ML IVPB ×2 (03:28→17:57)
--- NOTE | 2025-04-14 03:31 | TELEP.MEDR_ITS ---
Date of service: 04/14/25 Time of Service: 03:31 Telepharmacy Home Med Rec Allergies Allergies: latex Allergy (Intermediate, Verified 03/14/25 13:18) rash carbamazepine (From Tegretol) Allergy (Unknown, Verified 03/14/25 13:18) Unknown gabapentin (From Neurontin) Allergy (Unknown, Verified 03/14/25 13:18) Unknown risperidone (From Risperdal) Allergy (Unknown, Verified 03/14/25 13:18) Unknown Sulfa (Sulfonamide Antibiotics) Adverse Reaction (Mild, Verified 03/14/25 13:18) Per pt. mother causes stomach ache haldol Adverse Reaction (Unknown, Uncoded 03/14/25 13:18) Other (See Comment) Interview Person Interviewed: * Albaro (caregiver)- [phone] Quality Quality of Interview/Accuracy of Medication List: Excellent Sources Sources used to compile medication list: [place] Medication List and SureScripts Changes made to Home Medication List: ADDITIONS: * Phenazopyridine 100mg PO TID DELETIONS: * Bisacodyl * Miralax * Psyllium husk powder CHANGES: * none Additional Notes Additional Notes: * none Recommended Changes Attestation: The home medication list is now updated to the best of my knowledge and is ready to be reconciled by the provider. Please contact the TelePharmacy Medication Reconciliation Pharmacist at for any questions.
--- NOTE | 2025-04-14 03:42 | W.PC.ACHO ---
Registration Status: REG ER Primary Language: Preferred Language: Albanian ED Information & Data Chief Complaint GenMedical 04/13/25 22:54 Triage Note BIBA for testicular abscess 04/13/25 22:02 and 24 hrs of increased abd pain with decreased urine output since Tuesday. 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 Most Recent Vital Signs Temperature 37.6 C H 04/13/25 22:09 Temperature Source Axillary 04/13/25 22:02 Pulse 66 04/14/25 03:30 Pulse 67 04/14/25 03:30 Respiratory Rate 9 L 04/14/25 03:30 Respiratory Effort Normal, Non-Labored 04/13/25 23:15 Respiratory Depth Normal 04/13/25 23:15 Respiratory Pattern Normal 04/13/25 23:15 Blood Pressure 106/51 L 04/14/25 03:30 Blood Pressure Mean 70 04/14/25 03:30 Blood Pressure Position Supine 04/13/25 22:02 Pulse Oximetry 100 04/14/25 03:30 Oxygen Delivery Method OxyMask 04/13/25 23:37 Oxygen Flow Rate 4 04/13/25 23:37 Pain Level 6 04/13/25 22:09 Comment ED MD aware of PT BP 04/14/25 01:45 Allergies latex Allergy (Intermediate, Verified 03/14/25 13:18) rash carbamazepine (From Tegretol) Allergy (Unknown, Verified 03/14/25 13:18) Unknown gabapentin (From Neurontin) Allergy (Unknown, Verified 03/14/25 13:18) Unknown risperidone (From Risperdal) Allergy (Unknown, Verified 03/14/25 13:18) Unknown Sulfa (Sulfonamide Antibiotics) Adverse Reaction (Mild, Verified 03/14/25 13:18) Per pt. mother causes stomach ache haldol Adverse Reaction (Unknown, Uncoded 03/14/25 13:18) Other (See Comment) unknown per caregiver, was listed as allergy by pt mother Precautions Isolation Standard precaution 04/13/25 22:09 Active Medications Generic Name Dose Route Start Last Admin Trade Name Kulwant PRN Reason Stop Dose Admin Iohexol 100 ml 04/13/25 23:45 04/14/25 00:01 Omnipaque 350 Mg/Ml 100 Ml Btl IJ 05/13/25 23:59 65 ml DIRECTED TONG Administration Sodium Chloride 50 ml 04/13/25 23:45 04/14/25 00:00 Normal Saline - Diluent 50 Ml Vial IJ 50 ml DIRECTED TONG Administration Sodium Chloride 0 ml 04/13/25 23:43 04/14/25 00:00 Normal Saline Flush 10 Ml Syr IVP 10 ml PRN PRN Administration IV IV Catheter Type [Right Upper Saline Lock arm] IV Catheter Type [Left Upper Peripheral IV arm] IV Catheter Gauge [Right Upper 20 arm] IV Catheter Gauge [Left Upper 18 arm] Diagnostics 04/13/25 04/13/25 04/13/25 Range/Units 23:00 22:55 22:50 WBC 6.99 (4.4-10.8) 10^3/uL RBC 4.60 (4.36-5.78) 10^6/uL Hgb 12.9 L (13.5-17.5) g/dL Hct 40.7 (40.0-50.0) % MCV 89 (80-95) fL MCH 28.0 (27.0-33.0) pg MCHC 31.7 L (32.0-36.0) % RDW 13.6 (11.8-14.1) % Plt Count 155 (130-400) 10^3/uL MPV 11.2 H (8.0-11.0) fL Immature Gran % 0.1 % Neutrophils % 74.4 % Lymphocytes % 11.4 % Monocytes % 8.4 % Eosinophils % 5.0 % Basophils % 0.7 % Nucleated RBC % 0.0 (0.0-0.3) % Absolute Neutrophils 5.19 (1.2-6.7) 10^3/uL Absolute Lymphocytes 0.80 L (1.2-3.4) 10^3/uL Absolute Monocytes 0.59 (0.1-0.8) 10^3/uL Absolute Eosinophils 0.35 (0.0-0.7) 10^3/uL Absolute Basophils 0.05 (0.0-0.2) 10^3/uL VBG Lactate 0.9 (<or=2.0) mmol/L Sodium 140 (136-145) mmol/L Potassium 4.6 (3.5-5.1) mmol/L Chloride 104 (98-107) mmol/L Carbon Dioxide 30.0 (21.0-32.0) mmol/L Anion Gap 6.0 (3-11) mmol/L BUN 20 H (7-18) mg/dL Creatinine 1.4 H (0.70-1.30) mg/dL Est GFR (CKD-EPI 2020) 57.54 (mL/min/1.73m2) Glucose 103 (74-106) mg/dL Calcium 8.9 (8.5-10.1) mg/dL Total Bilirubin 0.3 (0.2-1.0) mg/dL AST 21 (15-37) U/L ALT 33 (16-63) U/L Alkaline Phosphatase 115 (46-116) U/L Total Protein 6.8 (6.4-8.2) g/dL Albumin 3.5 (3.4-5.0) g/dL Procalcitonin < 0.10 ng/mL Urine Color Yellow (Yellow) Urine Clarity Clear (Clear) Urine pH 6.0 (5-8) Ur Specific [place] >= 1.030 H (1.005-1.025) Urine Protein 100 H (Neg-Trace) mg/dL Urine Ketones Negative (Negative) mg/dL Urine Blood Small H (Negative) Urine Nitrite Positive H (Negative) Urine Bilirubin Negative (Negative) Urine Urobilinogen 0.2 (Up to 0.2) mg/dL Ur Leukocyte Esterase Small H (Negative) Urine RBC 10-20 H (0-2) HPF Urine WBC 20-50 H (0-5) HPF Ur Epithelial Cells Few (Negative) HPF Urine Crystals Negative (Negative) HPF Urine Bacteria Few (Negative) HPF Urine Casts Negative (Negative) LPF Urine Mucus Negative (Negative) Ur Culture Indicated? C&S Done As Ordered Urine Glucose Negative (Negative) mg/dL COVID-19 Source Nasopharynx SARS-CoV-2 (PCR) Negative (Negative) Influenza Type A (PCR) Negative (Negative) Influenza Type B (PCR) Negative (Negative) RSV (PCR) Negative (Negative) 04/13/25 23:00 Urine Culture - Pending Urine - Cath Lyles Indwelling 04/13/25 23:10 Blood Culture - Pending Blood 04/13/25 22:50 Blood Culture - Pending Blood Intake and Output - 24 Hour Total 04/13/25 21:48 thru 04/14/25 03:01 Intake Total 910 Balance 910 Weight 67.5 kg Intake: IV 910 Other: Urine Color Yellow Comment PT has indwelling urinary catheter upon arival to ED Urinary Catheter Urinary Catheter Date of 04/14/25 Insertion [Urethral (Lyles)] Time of insertion [Urethral ( 02:54 Lyles)] Falls Risk Assessment History of Falls No History 04/13/25 22:09 Contributing Factors Confusion,Impairments, 04/13/25 22:09 Incontinence,Medications Ambulatory Aids Uses ambulatory device + 04/13/25 22:09 Tubes/Lines With any additional score 04/13/25 22:09 Gait Evaluation W/any additional score 04/13/25 22:09 Fall Total Score 82 04/13/25 22:09 Level of Risk Maximum Risk 04/13/25 22:09 Problems (Last Reviewed 04/14/25 @ 01:58 by Quinn Hernandez) Complicated UTI (urinary tract infection) (Acute) Aspiration pneumonia (Acute) UTI (urinary tract infection) due to urinary indwelling catheter (Acute) Epididymitis with abscess (Chronic) Neurogenic bladder (Chronic) v v v v v v v v v Sending and/or Receiving Nurses: Please use comment section below to note any information pertinent to the patient hand-off not included above. Information / Comments: Report taken from ED RN Aguilar., patient is alert to painful stimuli, non verbal. ; bed bound at home.; He was hospitalized last Mar here for scrotal abscee. Chronic lyles in placed but just changed at ER and sample was sent to lab. RR & B/P is soft due to ATivan administered, Patient received Morphine, NS bolus of 1.5L, Cipro, Unasyn and tylenol was given in ER. Report received from:
[2025-04-14 03:56] LABS: Glucose Negative (Negative)
[2025-04-14 04:02] LABS: C & S Indicated? No
[2025-04-14 06:57] LABS: HCT 36.8 % (40.0-50.0); HGB 11.4 g/dL (13.5-17.5); MCH 28.1 pg (27.0-33.0); MCHC 31.0 % (32.0-36.0); MCV 91 fL (80-95); MPV 11.4 fL (8.0-11.0); Platelet Count 135 10^3/uL (130-400); RBC 4.05 10^6/uL (4.36-5.78); RDW 13.8 % (11.8-14.1); RDW-SD 46.2 fL; WBC 4.83 10^3/uL (4.4-10.8)
[2025-04-14 07:13] LABS: ALT 25 U/L (16-63); AST 19 U/L (15-37); Albumin 2.8 g/dL (3.4-5.0); Alkaline Phosphatase 97 U/L (46-116); Anion Gap 3.9 mmol/L (3-11); BUN 19 mg/dL (7-18); Bilirubin, Total 0.3 mg/dL (0.2-1.0); CO2 29.1 mmol/L (21.0-32.0); Calcium 8.1 mg/dL (8.5-10.1); Chloride 107 mmol/L (98-107); Estimated GFR 76.85 (mL/min/1.73m2); Glucose 114 mg/dL (74-106); Magnesium 1.7 mg/dL (1.8-2.4); Potassium 5.2 mmol/L (3.5-5.1); Sodium 140 mmol/L (136-145); Total Protein 5.8 g/dL (6.4-8.2)
[2025-04-14 07:21] LABS: TSH (W/Ref FT4) 2.52 uIU/mL (0.36-3.74)
[2025-04-14] MEDS: Normal Saline Flush 10 ML SYR IVP ×3 (08:44→19:25)
[2025-04-14] MEDS: Enoxaparin 40 MG/0.4 ML SYR SC (08:44)
--- NOTE | 2025-04-14 09:59 | INITIAL_ITS ---
Date of service: 04/14/25 Time of Service: 09:59 Care Management Initial Assmt Initial Assessment Reason for Hospitalization: Complicated UTI Functional Status/Living Situation Patient Presentation: Hollis is unable to participate in an assessment. CM reached out to his guardian, his father, Cam, over the phone. Cam stated that he was contacted overnight regarding Hollis's admission, and that he plans to visit today. He confirmed that Hollis is on hospice. When asked if he would want Hollis's hospice services to resume at home once he is discharged, he asked CM to discuss that with his daughter, Tarah, whom he stated is a co-guardian. CM contacted hospice, who stated that he is on hospice for recurrent aspiration pneumonia, and as this hospitalization is for a UTI, he may remain on hospice. The hospice provider will request that the athletic turf worker meet with Hollis's father and daughter to discuss their wishes regarding continuing hospice services. Per hospice, Hollis remains a full code, as his guardian must petition the court in order to have this changed to DNR/DNI, and this has not happened yet. CM will continue to follow. Town of Residence: [place] Resides with: Other ([facility] home- caregivers) Significant Other/Family: Local Caregiver/Guardian: Guardian, Cam Ambriz (father) [facility] home caregiver, Albaro Lobo Natural Supports: SisterTarah Employment Status: Disabled Instrumental Activities of Daily Living (ADLs): Requires support Medications Medication Management: No Issues/Barriers identified (caregivers manage medications) Physical Functioning/Mobility Assistive Device: manual w/c Advance Directives Advance Directives: Do you have an Advance Directive: N , 09:06 AD On File at [facility]: N 05/09/23, 09:06 Date Asked 04/13/25 04/13/25, 22:13 AD Date Reviewed COLST On File at [facility] No 08/10/24, 16:16 COLST Date Scanned Code Status Resuscitation Status Full Code Insurance Coverage/Financial Issues Insurance: [facility] Care Team Visit Care Team Role Provider Type Karan Adams MD MD [facility] STAFF PHYSICIAN Freida Starks Primary Care Provider NON-[facility] STAFF PHYSICIAN Allie Chua, JUNIOR NETWORK ADMINISTRATOR Other Providers SPEECH LANGUAGE PATHOLOGIST Alice Hernández, JUNIOR NETWORK ADMINISTRATOR Other Providers SPEECH LANGUAGE PATHOLOGIST Antionette Núñez Other Providers SPEECH LANGUAGE PATHOLOGIST Jessica Johnson, JUNIOR NETWORK ADMINISTRATOR Other Providers SPEECH LANGUAGE PATHOLOGIST Marni Frederick, JUNIOR NETWORK ADMINISTRATOR Other Providers SPEECH LANGUAGE PATHOLOGIST [place], DO Emergency Provider [facility] STAFF PHYSICIAN Quinn Hernandez Admit Provider NON-[facility] STAFF PHYSICIAN Attending Provider Discharge Potential Discharge Needs: Other (coordinated return to caregiver's home, resumption of hospice support) Anticipated Barriers to Discharge: None Identified Patient/Family Education Needs: Review discharge instructions, discuss Ask Me Three Transportation: Private vehicle Plan: Anticipate Hollis will return to his caregiver's home and will likely resume hospice support at home. He will transport via private vehicle with his caregivers. He will follow up with hospice providers, athletic turf worker, and his discharge plan of care. CM will continue to follow. Social Determinants of Health Screening Will the Patient Participate in the Screening?: Unable to obtain Do you worry about having a steady place to live?: no Comments: patient is non verbal Health Related Social Needs Health related social needs details: patient comes from home with community services utilized. PFS All Active Problems (Updated 04/14/25 @ 02:43 by Quinn Hernandez) Complicated UTI (urinary tract infection) (Acute) Aspiration pneumonia (Acute) UTI (urinary tract infection) due to urinary indwelling catheter (Acute) Colon wall thickening (Acute) Epididymitis with abscess (Chronic) Abnormal urine sediment (Acute) Goals of care, counseling/discussion (Acute) Closed nondisplaced bimalleolar fracture of right ankle (Acute) Closed pilon fracture of right tibia (Acute) Edema (Acute) Atherosclerosis of artery of both lower extremities (Acute) Onychogryphosis (Acute) Nail dystrophy (Acute) Onychomycosis (Acute) Neurogenic bladder (Chronic) Community acquired pneumonia (Acute) Urinary catheter insertion/adjustment/removal (Acute) Diarrhea (Acute) Neurogenic bladder (Acute) Discharge planning issues (Acute) Medical History Bacteremia pseudomonas 08/2024 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) Acute UTI Urethral stricture Wheelchair dependent 2 assist Developmental non-verbal disorder Urinary retention Meningioma Neurofibromatosis 2 Surgical History S/P craniotomy S/P INFRASTRUCTURE TECHNICIAN shunt Social History Smoking/Tobacco Use Status: Never Smoking risk assessment performed?: Yes Alcohol Intake: never Drug use: Never Substance use type: does not use Caregiver/Support person: Yes (parents are primary caretakers) Household members: family Housing: assisted living facility Do you feel safe at home: Yes Do you feel safe in your relationship?: Yes Additional Social history: sister Tarah is guardian. He lives with [facility] and her in [place] (in home care) and has other aides to help
[2025-04-14] MEDS: Normal Saline 1,000 ML 125 ML IV ×2 (10:15→20:27)
[2025-04-14] MEDS: Acetaminophen 325 MG TAB 650 MG PO (13:29)
[2025-04-14] MEDS: LORazepam 1 MG TAB PO (14:35)
[2025-04-14] MEDS: MORPHine Oral Solution 10 MG/5 ML CUP 5 MG PO ×4 (16:20→23:59)
[2025-04-15] MEDS: AMPICILLIN/SULBACTAM 3 GM in Normal Saline 100 ML IVPB ×2 (03:04→10:30)
[2025-04-15 03:05] VITALS: BP 133/89; PULSE 85; RESP 18; TEMP 36.7; O2SAT 91
[2025-04-15] MEDS: DOXYCYCLINE 100 MG in Normal Saline 100 ML IVPB (03:51)
[2025-04-15] MEDS: Normal Saline 1,000 ML 125 ML IV (05:06)
[2025-04-15 06:39] LABS: HCT 34.3 % (40.0-50.0); HGB 10.9 g/dL (13.5-17.5); MCH 28.8 pg (27.0-33.0); MCHC 31.8 % (32.0-36.0); MCV 91 fL (80-95); MPV 11.0 fL (8.0-11.0); Platelet Count 123 10^3/uL (130-400); RBC 3.78 10^6/uL (4.36-5.78); RDW 13.8 % (11.8-14.1); RDW-SD 46.3 fL; WBC 5.00 10^3/uL (4.4-10.8)
[2025-04-15 06:58] LABS: ALT 21 U/L (16-63); AST 18 U/L (15-37); Albumin 2.6 g/dL (3.4-5.0); Alkaline Phosphatase 84 U/L (46-116); Anion Gap 3.6 mmol/L (3-11); BUN 13 mg/dL (7-18); Bilirubin, Total 0.2 mg/dL (0.2-1.0); CO2 29.4 mmol/L (21.0-32.0); Calcium 8.0 mg/dL (8.5-10.1); Chloride 111 mmol/L (98-107); Estimated GFR 76.85 (mL/min/1.73m2); Glucose 100 mg/dL (74-106); Magnesium 1.5 mg/dL (1.8-2.4); Potassium 4.7 mmol/L (3.5-5.1); Sodium 144 mmol/L (136-145); Total Protein 5.4 g/dL (6.4-8.2)
[2025-04-15 07:55] VITALS: BP 155/99; PULSE 89; RESP 10; TEMP 37.6; O2SAT 98
[2025-04-15 08:47] VITALS: O2SAT 94
[2025-04-15] MEDS: Enoxaparin 40 MG/0.4 ML SYR SC (09:17)
[2025-04-15] MEDS: Cholecalciferol (Vitamin D3) 1,000 UNIT TAB 1000 UNITS PO (09:18)
[2025-04-15] MEDS: Normal Saline Flush 10 ML SYR IVP (09:18)
[2025-04-15] MEDS: Loratidine 10 MG TAB PO (09:18)
[2025-04-15] MEDS: Sertraline 50 MG TAB PO (09:18)
[2025-04-15] MEDS: Ketoconazole 2% CREAM 15 GM TUBE TP (09:23)
--- NOTE | 2025-04-15 10:20 | DSE_ITS ---
Date of service: 04/15/25 Time of Service: 10:20 DS: Diagnosis Discharge Diagnosis (1) Complicated UTI (urinary tract infection): Status: Acute (2) Aspiration pneumonia: Status: Acute (3) Epididymitis with abscess: Status: Chronic (4) Neurogenic bladder: Status: Chronic (5) Developmental non-verbal disorder: (6) Neurofibromatosis 2: Discharge Plan Disposition Patient Disposition: Home Condition: Good Discharge Details Reason For Visit: Complicated UTI Admit Date/Time: 04/14/25 02:40 Admit Provider: Quinn Hernandez Attending Provider: Quinn Hernandez Primary Care Provider: Freida Starks Hospital Course Hospital Course: Patient initially presented with signs and symptoms concerning for UTI and possible aspiration pneumonia versus atelectasis. He was on doxycycline and amp icillin did have significant improvement of his symptoms and resolution of his fever. Given that patient improved it was determined he was stable for discharge home with continuation of hospice services and will have an additional 4 days of cefpodoxime and doxycycline. Home Meds and New Rx's Prescriptions: New cefpodoxime 200 mg tablet 200 mg PO BID 4 Days Qty: 8 0RF Rx Instructions: must administer with a meal/food doxycycline hyclate 100 mg capsule 100 mg PO BID 4 Days Qty: 8 0RF Continued loratadine 10 mg tablet 10 mg PO DAILY clotrimazole 1 % cream 1 applic topical TID PRN PRN (Reason: rash) Qty: 60 0RF lorazepam 1 mg tablet 1 mg PO Q4H PRN (Reason: anxiety, dyspnea, nausea) Qty: 7 2RF Rx Instructions: hospice morphine concentrate 100 mg/5 mL (20 mg/mL) solution See Rx Instructions PO Q1H MDD 500 mg PRN (Reason: pain) Qty: 30 0RF Rx Instructions: 0.25-1.0 ml orally every 1 hour PRN; HOSPICE sertraline 50 mg tablet 50 mg PO DAILY Patient Comments: TAKE ONE TABLET BY MOUTH EVERY DAY potassium chloride 10 mEq capsule, extended release 10 meq PO BID Patient Comments: TAKE ONE CAPSULE BY MOUTH TWICE A DAY cholecalciferol (vitamin D3) [Vitamin D3] 25 mcg (1,000 unit) capsule 1,000 unit PO DAILY phenazopyridine 100 mg tablet 100 mg PO TID Discontinued amoxicillin 500 mg capsule 500 mg PO DAILY Qty: 90 0RF Discharge Instructions Stand Alone Forms: Nursing Discharge Form Referrals: Freida Starks [Primary Care Provider, Medicine] Referral Note: Please call PCP office to make a follow up appointment. Activity:: Activity as Tolerated Equipment/Supplies:: No Equipment Needed Diet:: As Tolerated Discharge Orders Discharge Orders: Discharge Order (Routine); Ordered 04/15/25 Ordered By: Karan Adams Discharge Data Discharge Date/Time-TO BE ENTERED AT DEPARTURE: 04/15/25 13:29 DS: Summary Time Spent with Patient providing and/or coordinating discharge services: Greater than 30 minutes Status at Discharge Functional status at discharge: independent ambulation Overall status at discharge: patient is back to baseline Mental Status: mental status grossly normal Speech and Movement: speech and movement normal Mood: congruent mood Affect: normal affect Quality:SDOH Health Related Social Needs: Health related social needs details patient comes from home with community services utilized. Health related social needs details: patient comes from home with community services utilized. Exam Narrative Exam Narrative: Chronically ill-appearing older gentleman laying in bed in no acute distress, awake, nonverbal which is baseline, heart regular rhythm, lungs good auscultation bilaterally, abdomen soft, nontender, nondistended Psych Mental Status: mental status grossly normal Speech and Movement: speech and movement normal Mood: congruent mood Affect: normal affect DS: Data Vitals/I&O Vitals and I&O: Vital Signs Temperature 99.7 F H 04/15/25 07:55 Temperature Source Temporal Artery Scan 04/15/25 07:55 Pulse 89 04/15/25 07:55 Pulse Rhythm Irregular 04/14/25 04:20 Pulse 67 04/14/25 03:30 Respiratory Rate 10 L 04/15/25 07:55 Respiratory Effort Pursed Lip 04/14/25 04:20 Respiratory Depth Deep 04/14/25 04:20 Respiratory Pattern Irregular 04/14/25 04:20 Blood Pressure 155/99 H 04/15/25 07:55 Blood Pressure Mean 117 04/15/25 07:55 Blood Pressure Position Supine 04/13/25 22:02 Pulse Oximetry 94 04/15/25 08:47 Oxygen Delivery Method Room Air 04/15/25 08:47 Oxygen Flow Rate 0 04/15/25 08:47 Pain Level 0 04/15/25 03:05 Comment rn notified 04/15/25 07:55 Comment ED MD aware of PT BP 04/14/25 01:45 Intake & Output 04/14/25 04/15/25 04/15/25 17:59 05:59 17:59 Intake Total 1400 / 1400 2329.167 / 3729.167 530 / 530 Output Total 200 / 200 900 / 1100 Balance 1200 / 1200 1429.167 / 2629.167 530 / 530 Weight 145 lb 1.027 oz 152 lb 8 oz Intake: IV 1400 / 1400 2329.167 / 3729.167 Oral 530 / 530 Output: Urine 200 / 200 900 / 1100 Other: Urine Color Straw [place] Urine Appearance Clear Clear Stool Size Small Stool Characteristics Soft Data Completed and Pending Labs on day of discharge: Labs from last 24 hours 04/15/25 04/15/25 06:16 06:14 WBC 5.00 RBC 3.78 L Hgb 10.9 L Hct 34.3 L MCV 91 MCH 28.8 MCHC 31.8 L RDW 13.8 Plt Count 123 L MPV 11.0 Sodium 144 Potassium 4.7 Chloride 111 H Carbon Dioxide 29.4 Anion Gap 3.6 BUN 13 Creatinine 1.1 Est GFR (CKD-EPI 2020) 76.85 Glucose 100 Calcium 8.0 L Magnesium 1.5 L Total Bilirubin 0.2 AST 18 ALT 21 Alkaline Phosphatase 84 Total Protein 5.4 L Albumin 2.6 L Preliminary micro results at discharge 04/13/25 23:00 Urine - Cath Li Indwelling Urine Culture - Preliminary Gram negative sarah 04/13/25 23:10 Blood Blood Culture - Preliminary NO GROWTH 24 HOURS 04/13/25 22:50 Blood Blood Culture - Preliminary NO GROWTH 24 HOURS PFSH All Active Problems (Updated 04/14/25 @ 02:43 by Quinn Hernandez) Complicated UTI (urinary tract infection) (Acute) Aspiration pneumonia (Acute) UTI (urinary tract infection) due to urinary indwelling catheter (Acute) Colon wall thickening (Acute) Epididymitis with abscess (Chronic) Abnormal urine sediment (Acute) Goals of care, counseling/discussion (Acute) Closed nondisplaced bimalleolar fracture of right ankle (Acute) Closed pilon fracture of right tibia (Acute) Edema (Acute) Atherosclerosis of artery of both lower extremities (Acute) Onychogryphosis (Acute) Nail dystrophy (Acute) Onychomycosis (Acute) Neurogenic bladder (Chronic) Community acquired pneumonia (Acute) Urinary catheter insertion/adjustment/removal (Acute) Diarrhea (Acute) Neurogenic bladder (Acute) Discharge planning issues (Acute) Medical History Bacteremia pseudomonas 08/2024 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) Acute UTI Urethral stricture Wheelchair dependent 2 assist Developmental non-verbal disorder Urinary retention Meningioma Neurofibromatosis 2 Surgical History S/P craniotomy S/P PART TIME shunt Social History Smoking/Tobacco Use Status: Never Smoking risk assessment performed?: Yes Alcohol Intake: never Drug use: Never Substance use type: does not use Caregiver/Support person: Yes (parents are primary caretakers) Household members: family Housing: assisted living facility Do you feel safe at home: Yes Do you feel safe in your relationship?: Yes Additional Social history: sister Tarah is guardian. He lives with [facility] and her in [place] (in home care) and has other aides to help Time Spent with Patient Time Spent with Patient: <45 minutes Time was spent: preparing to see the patient(eg.review tests), obtaining and/or reviewing separately otained hiistory, ordering medications,tests, procedures, referring, communicating with other health director of home care hospice, indepentently interpreting results, counseling the patient and care coordination
--- NOTE | 2025-04-15 11:26 | PDOC.CMDIS ---
Date of service: 04/15/25 Time of Service: 11:26 LACE Index Scoring Tool Questions: Length of Stay (in days): 1 Was the patient admitted via the E.D.?: Yes E.D. Visits: 1 Answers: Total Score: 5 Risk of Readmission: Low Risk Care Management Discharge Plan Reason for Hospitalization: complicated UTI Discharge Plan: Hollis will return to his caregivers home, where he has / care. He will resume hospice supports; CM notified hospice of his discharge. Per hospice provider, the switchboard wire worker helper will meet with Hollis's guardian in the community regarding his plan of care going forward. Hollis's caregiver will transport him home via private vehicle. His guardian is aware and is agreeable with the plan. Patient/Family Education Needs: Review discharge instructions with caregivers, discussion of limitations and goals of care. Services Needed at Discharge: Home Health Care Services (resume Hospice support) SDOH Health Related Social Needs: Health related social needs details patient comes from home with community services utilized. Health related social needs details: patient comes from home with community services utilized.
[2025-04-15 11:47] VITALS: RESP 13; O2SAT 97
--- NOTE | 2025-04-15 13:01 | W.SPSTE ---
Date of service: 04/15/25 Time of Service: 12:00 Subjective Clinical (Bedside) Swallow Evaluation Speech Language Pathology Referred by: Dr Hernandez Referral Type: Clinical Swallow Evaluation 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/HPI: Hollis Ambriz is a 59 yo male with hx neurofibrosis status post craniotomy for tumor removal approximately 20 years ago. He has been nonverbal and bedridden since that time, with / caregiver support. Hollis was adm to [facility] 04/14/25 with UTI and suspected aspiration pneumonia. (See below re: baseline dysphagia) CXR: Bilateral dependent nonspecific consolidation of the lower lobes. Findings may be secondary to atelectasis. Pneumonia, such as aspiration related, may present a similar picture. Evidence of mild tracheomalacia at the christy. HEAD OF PRECISION TARGETING IMPRESSIONS & RECOMMENDATIONS: Hollis was seen at noon meal, sitting upright in bed with his primary home caregiver Albaro feeding him lunch. Albaro verbalized and demonstrated excellent awareness of aspiration precautions in regards to positioning, pacing, bolus size, and diet modification as well as oral care. No overt s/s aspiration appreciated today. Reinforced aspiration precautions. We discussed possibility of MBSS to further assess dysphagia though not indicated at this time. Hollis to discharge home today with hospice. FURTHER HEAD OF PRECISION TARGETING SERVICES: No further HEAD OF PRECISION TARGETING services indicated Diet Recommendations: SOLIDS: Puree solids & minced and moist solids LIQUIDS: Mildly Thick Liquids MEDICATIONS: whole in applesauce or as tolerated SUPERVISION: 1:1 support Baseline Swallow Function: Per caregiver, this is Hollis's second pneumonia in 2 years. He typically swallows well. There is concern of weight loss but this is more due to diarrhea not appetite. Aspiration symptoms occur rarely, typically if he mistimes breath with eating. Hollis is 1:1 feed assist for all meals. He eats mostly pureed and some finely minced foods and drinks mildly thick liquids via straw with use of straw pinch reduce sip size. [place] upright in chair for all PO. SUBJECTIVE: Patient received alert/awake Pain Reported? Unable to report PO Trials Assessed: IDDSI 2 Mildly Thick Liquid IDDSI 4 Puree Solid (mashed potatoes) IDDSI 5 Minced and Moist Solid (chicken, carrots) Oral Mechanism Examination: Patient is edentulous. Anterior tongue posturing noted. Unable to complete full OME. Oral Phase Findings: Difficulty with bolus manipulation Difficulty with a-p transport Difficulty chewing Pocketing (min, intermittent) Residue (min, lingual surface) Pharyngeal Phase Findings: Delayed swallow initiation Reduced hyolaryngeal elevation/excursion No coughing, throat clearing, change in vocal quality ASSESSMENT: Further HEAD OF PRECISION TARGETING Services indicated. Recommendation at Discharge: No further HEAD OF PRECISION TARGETING services indicated RISK MANAGEMENT: [place] upright for all PO Oral hygiene BID Small bites/sips Pinch straw to reduce sip size Maintain upright position at least 30 minutes after meals Education Provided to: Nursing, caregiver Topics Addressed: HEAD OF PRECISION TARGETING findings, aspiration precautions PLAN: eval only HEAD OF PRECISION TARGETING CPT Code: 62891 Clinical Swallowing Evaluation TOTAL TIME: 20 Minutes [id number]
== END 2025-04-15 13:29 | disposition home or self-care (01) | DRG 698 ==
LOC: ER 04-14 02:44 → MS 04-14 04:17
PROVIDERS: Admitting Provider Family Medicine; Emergency Provider Student in an Organized Health Care Education/Training Program; PCP Family Medicine; Responsible Provider Family Medicine; Visit Provider Family Medicine
DX: N39.0 Urinary tract infection, site not specified; J69.0 Pneumonitis due to inhalation of food and vomit; N31.9 Neuromuscular dysfunction of bladder, unspecified; N45.4 Abscess of epididymis or testis; Q85.02 Neurofibromatosis, type 2; F81.89 Other developmental disorders of scholastic skills; T83.518A Infection and inflammatory reaction due to other urinary catheter, initial encounter; Z98.2 Presence of cerebrospinal fluid drainage device; K63.89 Other specified diseases of intestine; Z99.3 Dependence on wheelchair; R33.9 Retention of urine, unspecified; I69.820 Aphasia following other cerebrovascular disease; I70.203 Unspecified atherosclerosis of native arteries of extremities, bilateral legs
CPT/HCPCS: 00123; 36415; 51702; 74177; 80053; 84145; 85027; 87040; 87077; 87637; 92610; 96365; 96367; 96375; 99285; J1650; 71260; 81003; 81015; 83605; 83735; 84443; 85025; 87086; 87186; 94760; 99223; 99238; J0131; J0295; J0744; J2060; J2270; J3490

== ENCOUNTER 2025-06-12 18:07 | Outpatient (REF) | payer MEDICARE, MEDICAID, SELFPAY ==
[2025-06-12 17:24] LABS: Glucose Negative (Negative)
[2025-06-12 17:29] LABS: WBC >50 HPF (0-5)
[2025-06-12 17:30] LABS: C & S Indicated? Yes
== END 2025-06-12 18:08 | disposition home or self-care (01) ==
LOC: LBN 18:07
PROVIDERS: PCP Family Medicine; Visit Provider Nurse Practitioner
DX: N39.0 Urinary tract infection, site not specified (principal)
CPT/HCPCS: 87077; 81003; 81015; 87086; 87186